=== PATIENT | female | born 1975 | race Caucasian/White ===

== ENCOUNTER 2021-10-09 08:08 | Emergency (ER) | payer OTHER, SELFPAY ==
[2021-10-09 08:12] VITALS: BP 210/123; PULSE 82; RESP 20; TEMP 36.6; O2SAT 98
--- NOTE | 2021-10-09 08:18 | ED.GENADULT ---
HPI - General Adult General Chief complaint: Upper Respiratory Infection Stated complaint: Congestion/Cough Time Seen by Provider: 10/09/21 08:18 Source: patient, RN notes reviewed and old records reviewed Mode of arrival: ambulatory Limitations: no limitations History of Present Illness HPI narrative: 46-year-old female who presents to [facility] with complaints of cough, congestion, ears popping, headache, some nausea and vomiting since [place] evening. Patient has not been COVID vaccinated or Flu vaccinated.She states that she has been taking NyQuil for her symptoms. Patient states that she threw up her blood pressure medication 3 days ago and has been nauseated so she has not taken her blood pressure medication for the past 2 days. Initial blood pressure 210/123 in triage, manual recheck done with 210/120. Patient given Clonidine 0.1mg and Zofran 4mg and blood pressure rechecked 180/104 with patient instructed to resume her blood pressure medication today. Onset (ago): day(s) (3) Related Data Home Medications Medication Instructions Recorded Confirmed amlodipine 10 mg PO DAILY 10/28/19 10/09/21 acetaminophen-codeine 1 tablet PO Q4-6H PRN 10/09/21 10/09/21 escitalopram oxalate 20 mg PO DAILY 10/09/21 10/09/21 losartan 100 mg PO DAILY 10/09/21 10/09/21 Allergies Allergy/AdvReac Type Severity Reaction Status Date / Time Penicillins Allergy Unknown rash Verified 10/09/21 08:29 Review of Systems Review of Systems: CONSTITUTIONAL: Denies fever, chills, or sweats. EYES: Denies visual changes, redness, or discharge. ENT: rhinorrhea, congestion, no sore throat, EARS POPPING CARDIOVASCULAR: Denies chest pain, palpitations, or edema. RESPIRATORY: POSITIVE cough no dyspnea. GASTROINTESTINAL: Denies abdominal pain, nausea, vomiting, or diarrhea. GENITOURINARY: Denies dysuria or hematuria. SKIN: Denies rash or itching. MUSCULOSKELETAL: Denies back pain, joint pain,feeling achy NEUROLOGIC: Positive for headache, no numbness, or weakness. PSYCHIATRIC: Positive for anxiety or depression. All systems reviewed & are unremarkable except as noted in HPI and below PMFSH Comments At time of signature, agree with nursing past medical, surgical, social and family history. There is no relevant family history pertinent to the presenting complaint Exam Narrative: GENERAL: Well-appearing, well-nourished, and in no acute distress. HEAD: Normocephalic, atraumatic. EYES: PERRLA and EOMI. ENT: Nares red with swollen turbinates, yellow- green discharge, frontal headache,no epistaxis. Mucous membranes moist.TM's normal with dull light reflex, throat red with no lesions or exudates, or tonsil enlargement. NECK: Supple.no lymphadenopathy CHEST: Clear to auscultation. No respiratory distress. cough which is dry denies any acute dyspnea SAO2 98% on room air HEART: Regular rate and rhythm. No murmur heard. Normal peripheral pulses. ABDOMEN: Soft, nontender, nondistended, normal active bowel sounds. EXTREMITIES: Normal range of motion. No edema. SKIN: Warm, dry, no rash. NEURO: No focal deficits. Alert and oriented x3. Course Vital Signs Vital signs: Vital Signs Temperature 36.6 C 10/09/21 08:12 Pulse Rate 82 10/09/21 08:12 Respiratory Rate 20 10/09/21 08:12 Blood Pressure 210/123 H 10/09/21 08:12 Pulse Oximetry 98 10/09/21 08:12 Temperature 36.6 C 10/09/21 08:29 Pulse Rate 82 10/09/21 08:29 Respiratory Rate 20 10/09/21 08:29 Blood Pressure 210/123 H 10/09/21 08:29 Pulse Oximetry 98 10/09/21 08:29 Medical Decision Making Differential Diagnosis Differential Diagnosis: Acute cough, URI,viral syndrome,nausea and vomiting,sinusitis Medical Records Medical records reviewed: Yes I reviewed the external patient's medical records. Vital Signs Vital Signs: Vital Signs Temperature 36.6 C 10/09/21 08:12 Pulse Rate 82 10/09/21 08:12 Respiratory Rate 20 10/09/21 08:12 Blood Pressure 210/123 H 10/09/21 0
[2021-10-09 08:29] VITALS: BP 210/123; PULSE 82; RESP 20; TEMP 36.6; O2SAT 98
[2021-10-09] MEDS: ONDANSETRON HCL ODT 4 MG TABLET SUBLINGUAL (08:42)
[2021-10-09] MEDS: cloNIDine HCL 0.1 MG TABLET PO (08:45)
== END 2021-10-09 09:22 | disposition home or self-care (01) ==
PROVIDERS: Emergency Provider Registered Nurse; PCP Family Medicine
DX: J32.9 Chronic sinusitis, unspecified (principal); I10 Essential (primary) hypertension; Z20.822 Contact with and (suspected) exposure to COVID-19; F41.9 Anxiety disorder, unspecified
CPT/HCPCS: 87426; 99213; A9270; C9803; G0463

== ENCOUNTER 2024-10-13 09:12 | Emergency (ER) | payer OTHER, SELFPAY ==
[2024-10-13 09:20] VITALS: BP 135/83; PULSE 56; RESP 16; TEMP 37.1; O2SAT 99
--- NOTE | 2024-10-13 09:33 | ED.GENADULT ---
HPI - General Adult General Chief complaint: Upper Respiratory Infection Stated complaint: Sore Throat/Congestion Source: patient Mode of arrival: ambulatory Limitations: no limitations History of Present Illness HPI narrative: Patient presents for evaluation of sick symptoms for last 3 days. Symptoms include sinus congestion mucopurulent discharge from the nares, sore throat occasional dry cough and some mild ear discomfort bilaterally. No fever, chills, nausea, vomiting, shortness of breath or diarrhea. She tried taking nyquil for her symptoms. She does not smoke. 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 She is concerned she has a sinus infection or strep throat. Related Data Home Medications ?Medication ?Instructions ?Recorded ?Confirmed ?Last Taken ?Type amlodipine 10 mg tablet 10 mg PO DAILY 10/28/19 10/13/24 Unknown History escitalopram oxalate 20 mg tablet 20 mg PO DAILY 10/09/21 10/13/24 Unknown History losartan 100 mg tablet 100 mg PO DAILY 10/09/21 10/13/24 Unknown History Allergies Allergy/AdvReac Type Severity Reaction Status Date / Time Penicillins Allergy Unknown rash Verified 10/09/21 08:29 Review of Systems Review of Systems: CONSTITUTIONAL: Denies fever, chills, or sweats. EYES: Denies visual changes, redness, or discharge. ENT:Reports sinus congestion, mucopurulent discharge from the nares, sore throat and bilateral ear discomfort CARDIOVASCULAR: Denies chest pain, palpitations, or edema. RESPIRATORY: Reports occasional cough. Denies SOB GASTROINTESTINAL: Denies abdominal pain, nausea, vomiting, or diarrhea. GENITOURINARY: Denies dysuria or hematuria. SKIN: Denies rash or itching. MUSCULOSKELETAL: Denies back pain, joint pain, or myalgia. NEUROLOGIC: Denies headache, numbness, dizziness, or weakness. PSYCHIATRIC: Denies anxiety or depression. [facility] Past Medical History Medical History Hyperlipidemia HTN (hypertension) Anxiety Depression Surgical History Surgical History History of hysterectomy Family History Family History Mother Family history non-contributory Social History Social History Substance use: never Gender identity (if verbalized by the patient): Female Spiritual care concerns: No Exam Narrative: GENERAL: Well-appearing, well-nourished, and in no acute distress. HEAD: Normocephalic, atraumatic. EYES: PERRLA and EOMI. ENT: Nares clear, no rhinorrhea or epistaxis. Mucous membranes moist. Oropharynx without tonsillar hypertrophy exudate or other lesions. There is posterior pharyngeal erythema. Uvula is midline. There is middle ear fluid bilaterally NECK: Supple. No adenopathy or masses. No carotid bruits or JVD CHEST: Clear to auscultation. No respiratory distress. No wheezes rales or rhonchi HEART: Regular rate and rhythm. No murmur heard. Normal peripheral pulses. ABDOMEN: Soft, nontender, nondistended, normal active bowel sounds. EXTREMITIES: Normal range of motion. No edema. SKIN: Warm, dry, no rash. NEURO: No focal deficits. Alert and oriented x3. PSYCH: Normal mood and affect. Course Course Emergency Course: This is a 49-year-old female who presented for evaluation of sinus symptoms and sore throat. Rapid strep negative. She meets criteria for ABRS based upon mucopurulent discharge. Will treat with doxycycline due to penicillin allergy. Will also dc with tessalon. Increase hydration. OTC agents for symptom management. Follow up with primary provider. Go to the ER for worsening symptoms. Pt in agreement with plan of care Level of Care: Express Care Visit Vital Signs Vital signs: Vital Signs Temperature 37.1 C 10/13/24 09:20 Pulse Rate 56 L 10/13/24 09:20 Respiratory Rate 16 10/13/24 09:20 Blood Pressure 135/83 10/13/24 09:20 Pulse Oximetry 99 10/13/24 09:20 Oxygen Delivery Room Air 10/13/24 09:20 Temperature 37.1 C 10/13/24 09:20 Pulse Rate 56 L 10/13/24 09:20 Respiratory Rate 16 10/13/24 09:20 Blood Pressure 135/83 10/13/24 09:20 Pulse Oximetry 99 10/13/24 09:20 Oxygen Delivery Room Air 10/13/24 09:20 Medical Decision Making Vital Signs Vital Signs: Vital Signs Temperature 37.1 C 10/13/24 09:20 Pulse Rate 56 L 10/13/24 09:20 Respiratory Rate 16 10/13/24 09:20 Blood Pressure 135/83 10/13/24 09:20 Pulse Oximetry 99 10/13/24 09:20 Oxygen Delivery Room Air 10/13/24 09:20 Temperature 37.1 C 10/13/24 09:20 Pulse Rate 56 L 10/13/24 09:20 Respiratory Rate 16 10/13/24 09:20 Blood Pressure 135/83 10/13/24 09:20 Pulse Oximetry 99 10/13/24 09:20 Oxygen Delivery Room Air 10/13/24 09:20 Lab Data Labs: Lab Results 10/13/24 Range/Units 09:38 POC Grp A Strep Screen Negative (Negative) Discharge Plan Discharge Clinical Impression: Sinusitis Patient Disposition: Home, Self-Care Condition: Stable Instructions: Antibiotic Form, Sinusitis (ED) Patient Language: Tajik Prescriptions: New doxycycline hyclate 100 mg tablet 100 mg PO BID Qty: 20 0RF benzonatate 200 mg capsule 200 mg PO TID PRN (Reason: cough) Qty: 30 0RF No Action amlodipine 10 mg tablet 10 mg PO DAILY escitalopram oxalate 20 mg tablet 20 mg PO DAILY losartan 100 mg Tablet 100 mg PO DAILY ondansetron 4 mg tablet,disintegrating 4 mg PO Q6H PRN (Reason: nausea and vomiting) Qty: 14 0RF Follow-up/Referrals: Dakota Fabian [Other] Time of Disposition: 09:40
[2024-10-13 09:40] LABS: EDSTREPNEGPOS1 Negative (Negative)
--- OUTSIDE RECORDS SUMMARY | 2024-10-20 03:44 | XMS_ITS | Encounter Summary ---
Author Organization [facility] Health Address [address] [facility] [place] [address] Care Team Providers Care Diet Tech Name Role Phone Niurka Olivarez THOM-CUTTER OPERATOR HELPER Primary Care Provider [phone] Encounter Details Date Type Department Care Team (Latest Contact Info) Description 06/07/2019 1:03 PM CDT - 06/07/2019 11:59 PM CDT Hospital Encounter [facility] [address] [place] [address] Rossy Emmanuel PA-C [address] [place] [id number] Discharge Disposition: Home or Self Care Social History Tobacco Use Types Packs/Day Years Used Date Smoking Tobacco: Never Smokeless Tobacco: Never Alcohol Use Standard Drinks/Week Comments Never 0 (1 standard drink = 0.6 oz pur e alcohol) AUDIT-C Answer Date Recorded Frequency of Alcohol Consumption Never 06/07/2019 Average Number of Drinks Not on file 019 Frequency of Binge Drinking Not on file 05/14 Sex and Gender Information Value Date Recorded Sex Assigned at Not on file Gender Identity Not on file Sexual Orientation Not on file documented as of this encounter Medications at Time of Discharge Medication Sig Dispensed Refills Start Date End Date amLODIPine (NORVASC) 10 MG tablet amlodipine 10 mg tablet 08/26/2018 cetirizine (ZYRTEC) 10 MG tablet TAKE 1 TABLET BY MOUTH EVERY DAY FOR COUGH/RUNNY NOSE 2 04/25/2019 famotidine (PEPCID) 20 MG tablet Take 20 mg by mouth 09/20/2018 losartan-hydroCHLOROthia zide (HYZAAR) 100-25 MG tablet Take 1 tablet by mouth once daily 2 05/16/2019 documented as of this encounter Plan of Treatment Not on file documented as of this encounter Procedures Procedure Name Priority Date/Time Associated Diagnosis Comments XR KNEE LEFT 4VW OR MORE Routine 06/07/2019 1:23 PM CDT Left knee pain, unspecified chronicity documented in this encounter Results * XR KNEE LEFT 4VW OR MORE (06/07/2019 1:23 PM CDT) Anatomical Region Laterality Modality Lower Extremity Radiographic Dagmar ging 06/07/2019 1:27 PM CDT Impressions 06/07/2019 1:46 PM CDT Unremarkable study. Edited by Daniella Chavarria on 06/07/2019 1:41 PM Reading Radiologist: Fredy Alcala MD on 06/07/2019 at 1:46 PM Narrative 06/07/2019 1:46 PM CDT LEFT KNEE MULTIPLE VIEWS. HISTORY: Knee pain. Views of the knee demonstrate well maintained joint space. There is no fracture, lytic or blastic lesion. Procedure Note Fredy Alcala MD - 06/07/2019 LEFT KNEE MULTIPLE VIEWS. HISTORY: Knee pain. Views of the knee demonstrate well maintained joint space. There is no fracture, lytic or blastic lesion. IMPRESSION Unremarkable study. Edited by Daniella Chavarria on 06/07/2019 1:41 PM Reading Radiologist: Fredy Alcala MD on 06/07/2019 at 1:46 PM Rossy Emmanuel PA-C DIAGNOSTIC IMAGING O RDERABLES documented in this encounter Visit Diagnoses Diagnosis Left knee pain, unspecified chronicity documented in this encounter Care Teams Diet Tech Relationship Specialty Start Date End Date Juanis, THOM Bah-MIGUEL ANGEL [address] [place] [address] PCP - General 06/07/19 documented as of this encounter
--- OUTSIDE RECORDS SUMMARY | 2024-10-20 03:44 | XMS_ITS | Encounter Summary ---
Author Organization [facility] Health Address [address] [place] [address] Care Team Providers Care First Mate Name Role Phone Niurka Olivarez THOM-GENERATION TECHNOLOGIST Primary Care Provider [phone]- [phone] Reason for Visit * Reason Onset Date Comments Imaging 07/01/2019 Encounter Details Date Type Department Care Team (Late st Contact Info) Description 07/01/2019 Telephone [facility] [address] [facility] [place] [id number] Rossy Emmanuel PA-C [address] [facility] [address] [place] [address] Imaging Social History Tobacco Use Types Packs/Day Years [...] on file documented as of this encounter Miscellaneous Notes * Telephone Encounter - Rossy Emmanuel PA-C - 07/01/2019 12:40 PM CDT I reviewed MRI L knee: Grade 4 chondromalacia, medial patellar facet and median patellar ridge. Small Santos's cyst. I called patient with results. She would like an injection to left knee. I offered her to see me for 9/20 at 12pm for L knee injection, she accepted. Plan: non surgical treatment. Recommend PT, ice, NSAIDs and cortisone injections for relief. documented in this encounter Plan of Treatment Not on file documented as of this encounter Visit Diagnoses Not on filedocumented in this encounter Care Teams First Mate Relationship Specialty Start Date End Date Olivarez, THOM Bah-MIGUEL ANGEL [address] [place] [address] PCP - General 06/07/19 documented as of this encounter
--- OUTSIDE RECORDS SUMMARY | 2024-10-20 03:44 | XMS_ITS | Encounter Summary ---
Author Organization [facility] Address [address] [place] [address]. [place] [address] [place] [address] Care Team Providers Care Money Order Clerk Name Role Phone Md Generic Conversion Primary Care Provider Unavailable Kristi Wilson MD Primary Care Provider Unavailable Md Generic Elvis WILSON Primary Care Provider Unavailable Encounter Details Date Type Department Care Team (Late st Contact Info) Description 08/12/2013 Abstract [facility] [place] [address] [id number] Elis Hood MD [address] [facility] [address] [place], [place] [id number] Social History Tobacco Use Types Packs/Day Years Used Date Smoking Tobacco: Never Assessed Comments Unknown Sex and Gender Information Value Date Recorded Sex Assigned at Not on file Legal Sex Female 8:27 PM CDT Gender Identity Not on file Sexual Orientation Not on file documented as of this encounter Plan of Treatment Not on file documented as of this encounter Visit Diagnoses Diagnosis Degeneration of lumbar or lumbosacral intervertebral disc documented in this encounter Care Teams Money Order Clerk Relationship Specialty Start Date End Date Kristi Wilson MD PCP - General 04/20/14 Kristi Wilson MD PCP - General 03/30/14 4 Kristi Wilson MD PCP - General 07/28/13 documented as of this encounter
--- OUTSIDE RECORDS SUMMARY | 2024-10-20 03:44 | XMS_ITS | Clinical Summary ---
Author Organization [facility] Address [address] [facility] [place] [address] Care Team Providers Care Editor Farm Journal Name Role Phone Niurka Olivarez THOM-WHOLESALE REPRESENTATIVE Primary Care Provider [phone]- [phone] Source Comments [facility],non-owned Affiliates and Associated Physician Practices is amultiple site organization consisting of ambulatory clinics and hospital sitesin [place] and [place]. This disclosure is being madepursuant to the Care Everywhere program and may not contain all information available regarding this patient. Last updated 18.[facility] Allergies Active Allergy Reactions Criticality Noted Date Comments Penicillins Rash Medium 07/09/2017 Reaction: Rash, , Medications * Be aware that medications may not be up to date on this document. Alwaysverify current medications with the patient. Medication Sig Dispensed Refills Start Date End Date Status amLODIPine (NORVASC) 10 MG tablet amlodipine 10 mg tablet 08/26/2018 Active atorvastatin (LIPITOR) 20 MG tablet atorvastatin 20 mg tablet TAKE 1 TABLET(S) EVERY DAY BY ORAL ROUTE IN THE EVENING. Active buPROPion XL 24hr (WELLBUTRIN-XL) 150 MG tablet Take 150 mg by mouth once daily Active busPIRone (BUSPAR) 15 MG tablet buspirone 15 mg tablet Active carvedilol (COREG) 6.25 MG tablet carvedilol 6.25 mg tablet Active cetirizine (ZYRTEC) 10 MG tablet TAKE 1 TABLET BY MOUTH EVERY DAY FOR COUGH/RUNNY NOSE 2 04/25/2019 Active escitalopram (LEXAPRO) 10 MG tablet every 24 hours Active famotidine (PEPCID) 20 MG tablet Take 20 mg by mouth 09/20/2018 Act mary losartan-hydroCHLOR Othiazide (HYZAAR) 100-25 MG tablet Take 1 tablet by mouth once daily 2 05/16/2019 Active methylPREDNISolone (Medrol Dosepak) 4 MG tabletIndications:R ight elbow pain,Acute pain of right shoulder,Subacromia l bursitis of right shoulder joint Take by mouth as directed 1 Each 05/21/2024 Active Active Problems Problem Noted Date Diagnosed Date Acute internal derangement of left knee 06/07/20 19 Social History Tobacco Use Types Packs/Day Years Used Date Smoking Tobacco: Never Smokeless Tobacco: Never Tobacco Cessation:Counseling Given: Not Answered Alcohol Use Standard Drinks/Week Comments Never 0 (1 standard drink = 0.6 oz pur e alcohol) AUDIT-C Answer Date Recorded Frequency of Alcohol Consumption Never 06/07/2019 Average Number of Drinks Not on file 019 Frequency of Binge Drinking Not on file 05/14 PHQ-2 Answer Date Recorded Patient Health Questionnaire-2 Score 0 05/21/2024 Sex and Gender Information Value Date Recorded Sex Assigned at Not on file Gender Identity Not on file Sexual Orientation Not on file Last Filed Vital Signs Vital Sign Reading Time Taken Comments Blood Pressure - - Pulse - - Temperature - - Respiratory Rate - - Oxygen Saturation - - Inhaled Oxygen Concentration - - Weight 109.8 kg (242 lb) 06/21/2019 8:58 AM CDT Height 158.8 cm (5' 2.5 ) 06/21/2019 8:58 AM CDT Body Mass Index 43.56 06/21/2019 8:58 AM CDT Plan of Treatment Health Maintenance Due Date Last Done Comments COLOGUARD (AGES 45-75) - COLON CA SCREENING 1975 COLON MONITORING 1975 COLONOSCOPY - COLON CA SCREENING 1975 CT COLONOGRAPHY - COLON CA SCREENING 1975 Colorectal Cancer Screening 1975 FIT - COLON CA SCREENING 1975 FLEX SIG - COLON CA SCREENING 1975 PAP SMEAR 1975 HIV SCREENING 1990 HEPATITIS C SCREENING 04/04/1993 DTAP/TDAP/TD VACCINES (1 - Tdap) 1994 HEPATITIS B VACCINE (1 of 3 - 19+ 3-dose series) 1994 MAMMOGRAM 08/02/2023 08/02/2021, 07/13, 09/05/2018, Additional history exists COVID-19 VACCINE (2023- season) 2024 INFLUENZA VACCINE (#1) 2024 8, 08/04/2017, 07/05/2016, Additional history exists ZOSTER VACCINE (1 of 2) 2025 DEPRESSION SCREENING Completed 05/21/2024 HIB VACCINE Aged Out No longer eligi ble based on patient's age to complete this topic HPV VACCINE Aged Out No longer eligi ble based on patient's age to complete this topic MENINGOCOCCAL VACCINE Aged Out No wallace rob eligible based on patient's age to complete this topic PNEUMOCOCCAL VACCINE Aged Out No long er eligible based on patient's age to complete this topic Care Teams Editor Farm Journal Relationship Specialty Start Date End Date Niurka Olivarez APRN-MIGUEL ANGEL [address] [place] [address] PCP - General 06/07/19
--- OUTSIDE RECORDS SUMMARY | 2024-10-20 03:44 | XMS_ITS | Encounter Summary ---
Author Organization [facility] Address [address] [place] [address]. [place] [address] [place] [address] Care Team Providers Care Radio Station Audio Engineer Name Role Phone Kristi Cazares MD Primary Care Provider Unavailable Encounter Details Date Type Department Care Team (Late st Contact Info) Description 04/27/2014 Abstract [facility] [place] [address] [id number] Elis Hood MD [address] [facility] [address] [place], [place] [id number] Social History Tobacco Use Types Packs/Day Years [...] on filedocumented in this encounter Care Teams Radio Station Audio Engineer Relationship Specialty Start Date End Date Kristi Cazares MD PCP - General 04/20/14 documented as of this encounter
--- OUTSIDE RECORDS SUMMARY | 2024-10-20 03:44 | XMS_ITS | Encounter Summary ---
Author Organization [facility] Health Address [address] [place] [address] Care Team Providers Care Stationary Engineer Apprentice Name Role Phone Jyoti Perales MD Primary Care Provider [phone] Encounter Details Date Type Department Care Team (Late st Contact Info) Description 11/09/2018 Orders Only [facility] [address] [facility] [place] [address] Niurka Armendariz PA-C [address] [place] [address] Left knee pain, unspecified chronicity Social History Tobacco Use Types Packs/Day Years Used Date Smoking Tobacco: Never Assessed Sex and Gender Information Value Date Recorded Sex Assigned at Not on file Gender Identity Not on file Sexual Orientation Not on file documented as of this encounter Plan of Treatment Not on file documented as of this encounter Visit Diagnoses Diagnosis Left knee pain, unspecified chronicity- Primary documented in this encounter Care Teams Stationary Engineer Apprentice Relationship Specialty Start Date End Date Jyoti Perales MD PCP - General 10/09/18 06/06/19 documented as of this encounter
--- OUTSIDE RECORDS SUMMARY | 2024-10-20 03:44 | XMS_ITS | Encounter Summary ---
Author Organization [facility] Health Address [address] [place] [address] Care Team Providers Care Manager Monitoring Name Role Phone Niurka Olivarez THOM-COMPLETIONS MANAGER Primary Care Provider [phone]- [phone] Encounter Details Date Type Department Care Team (Latest Contact Info) Description 05/21/2024 12:48 PM CDT - 05/21/2024 1:10 PM CDT Hospital Encounter [facility] [address] [place] [address] Rossy Emmanuel PA-C [address] [facility] [address] [place] [address] Discharge Disposition: Home or Self Care Social [...] MG tablet amlodipine 10 mg tablet 08/26/2018 atorvastatin (LIPITOR) 20 MG tablet atorvastatin 20 mg tablet TAKE 1 TABLET(S) EVERY DAY BY ORAL ROUTE IN THE EVENING. buPROPion XL 24hr (WELLBUTRIN-XL) 150 MG tablet Take 150 mg by mouth once daily busPIRone (BUSPAR) 15 MG tablet buspirone 15 mg tablet carvedilol (COREG) 6.25 MG tablet carvedilol 6.25 mg tablet cetirizine (ZYRTEC) 10 MG tablet TAKE 1 TABLET BY MOUTH EVERY DAY FOR COUGH/RUNNY NOSE 2 04/25/2019 escitalopram (LEXAPRO) 10 MG tablet every 24 hours famotidine (PEPCID) 20 MG tablet Take 20 mg by mouth 09/20/2018 losartan-hydroCHLOROthi azide (HYZAAR) 100-25 MG tablet Take 1 tablet by mouth once daily 2 05/16/2019 documented as of this encounter Plan of Treatment Not on file documented as of this encounter Procedures Procedure Name Priority Date/Time Associated Diagnosis Comments XR ELBOW RIGHT 3VW OR MORE Routine 05/21/2024 12:54 PM CDT Right elbow pain documented in this encounter Results * XR Elbow Right 3Vw or More (05/21/2024 12:54 PM CDT) Anatomical Region Laterality Modality Upper Extremity Radiographic Dagmar ging 05/21/2024 2:10 PM CDT Impressions 05/21/2024 2:11 PM CDT IMPRESSION: Normal. ?? > Interpreting Provider: Hans Sosa MD on 05/21/2024 2:11 PM Narrative 05/21/2024 2:11 PM CDT PROCEDURE: ??XR ELBOW RIGHT 3VW OR MORE DATE/TIME OF EXAM: ??05/21/2024 12:54 PM CLINICAL INFORMATION: None relevant/not provided if blank. Indication: M25.521: Right elbow pain Additional History: COMPARISON: None. FINDINGS: No acute fracture or dislocation is present. The joint spaces are normal. No erosions are seen. There is no effusion. Procedure Note Hans Sosa MD - 05/21/2024 PROCEDURE: XR ELBOW RIGHT 3VW OR MORE DATE/TIME OF EXAM: 05/21/2024 12:54 PM CLINICAL INFORMATION: None relevant/not provided if blank. Indication: M25.521: Right elbow pain Additional History: COMPARISON: None. FINDINGS: No acute fracture or dislocation is present. The joint spaces arenormal. No erosions are seen. There is no effusion. IMPRESSION: Normal. > Interpreting Provider: Hans Sosa MD on 05/21/2024 2:11 PM Rossy Emmanuel PA-C DIAGNOSTIC IMAGING O RDERABLES documented in this encounter Visit Diagnoses Diagnosis Right elbow pain Pain in joint, upper arm documented in this encounter Care Teams Manager Monitoring Relationship Specialty Start Date End Date Niurka Olivarez APRN-MIGUEL ANGEL [address] [place] [address] PCP - General 06/07/19 documented as of this encounter
--- OUTSIDE RECORDS SUMMARY | 2024-10-20 03:44 | XMS_ITS | Encounter Summary ---
Author Organization [facility] Health Address [address] [place] [address] Care Team Providers Care Graphite Disk Assembler Name Role Phone Niurka Olivarez SECURITY ASSOCIATE-GUNNER'S MATE G Primary Care Provider [phone]- [phone] Reason for Visit * Reason Comments Pain Knee Left Encounter Details Date Type Department Care Team (Late st Contact Info) Description 06/07/2019 1:45 PM CDT Office Visit [facility] [address] [place] [address] Rossy Emmanuel PADaveC [address] [place] [id number] Acute internal derangement of left knee (Primary Dx) Social History Tobacco Use Types Packs/Day Years [...] on file documented as of this encounter Last Filed Vital Signs Vital Sign Reading Time Taken Comments Blood Pressure - - Pulse - - Temperature - - Respiratory Rate - - Oxygen Saturation - - Inhaled Oxygen Concentration - - Weight 109.8 kg (242 lb) 06/07/2019 1:40 PM CDT Height 158.8 cm (5' 2.5 ) 06/07/2019 1:40 PM CDT Body Mass Index 43.56 06/07/2019 1:40 PM CDT documented in this encounter Patient Instructions * Patient Instructions* Rossy Emmanuel PA-C - 06/07/2019 2:19 PM CDT Images from the original note were not included. [email or web address] Adult [facility] Pediatric Orthopaedic Surgery Sports Medicine Melinda Olmedo 06/07/2019 Thank you for coming in to see us today. Work/School Excuse: Excused from Work/School on 06/07/19 DIAGNOSIS: Acute internal derangement of left knee Plan: We recommend that you try the following for your injury: icing 20 minutes at a time, 3 to 5 times daily, physical therapy exercises and anti-inflammatory medications Hinge knee brace applied today at patient request Follow up: 2 weeks after PT Call or return to clinic prn if these symptoms worsen or fail to improve as anticipated. NSAIDs (non-steroidal anti-inflammatory drugs) such as Aleve/naproxen and Motrin/ibuprofen are suggested to relieve inflammation and pain for a short course of therapy for 3 weeks, advised to take with food. Cryotherapy is commonly used to reduce temperature, inflammation, pain, muscle spasm and symptoms of delayed onset muscle soreness. There are various methods of ice application such as ice pack, coldpack, cold water immersion, ice massage. To Find out more info about your diagnosis, visit: [email or web address] Patient was educated and given information regarding their diagnosis today. [facility] office contact information: Please contact our , option #1 to make an appointment if your symptoms are not improving, or if something about your condition significantly changes. Our Locations: [facility] [address] [place] [address], [address] [address] Please contact the MA at , if you have any further questions or concerns. [facility] [address] [place] [address] Please contact Adarsh Benson RN at , if you have any further questions or concerns. [facility] , option [address] [place] location: [address], [place] [address] [facility] location: [address], [place] [address] [facility] location: [address] [place] [address] Sincerely, Rossy Emmanuel MPA, PA-C [email or web address] documented in this encounter Progress Notes * Rossy Emmanuel PA-C - 06/07/2019 3:[address] Niurka Olivarez, THOM-GUNNER'S MATE G ; Today, 06/07/19, we had the pleasure of seeing Melinda Olmedo at [facility] for evaluation of her left knee chief complaint. Melinda Olmedo is a 44 year old female who c/o left medial knee pain with loss of motion since her fall on the stairs at home 1 week ago. She is limping. Seen at ED. Swelling in knee with increasedactivity. She reports Taking motrin 800mg and left over vicodin Previous treatment tried includes icing, anti-inflammatory medications, tylenol and bracing for their symptoms. Occupation: none Sports/Activities: none Smoking/tobacco use: negative Single Assessment Numeric Evaluation (SANE Score 0-100): SANE Score 06/07/2019 Left Knee Score 25 Medications: motrin 800 mg and vicodin and T4 No current outpatient medications on file prior to visit. No current facility-administered medications on file prior to visit. Allergies: Allergies as of 06/07/2019 - Reviewed 06/07/2019 Allergen Reaction Noted ??? Penicillins Rash 07/09/2017 PMH: none No past medical history on file. No past surgical history on file. Social History: Social History Occupational History ??? Not on file Tobacco Use ??? Smoking status: Never Smoker ??? Smokeless tobacco: Never Used Substance and Sexual Activity ??? Alcohol use: Never Frequency: Never ??? Drug use: Never ??? Sexual activity: Not on file Family History: none No family history on file. REVIEW OF SYSTEMS: also refer to HPI General/Constitutional: No fever, chills, night sweats, insomnia, appetite changes, or weight changes Endocrine: no thyroid problems, no diabetes Cardiovascular: No exertional chest pain, or palpitations Respiratory/Pulmonary: No cough, dyspnea, wheezing or SOB. Genitourinary: No frequency, incontinence, burning with urination Gynecological: No pelvic pain or discharge Psychiatric: No depression, anxiety, mood changes HEENT: No difficulty with hearing, eye sight, sore throats, vertigo, or tinnitus Gastrointestinal: no GI upset, No nausea, vomiting or diarrhea Skin: No skin rashes, skin lesions Neurologic: no numbness and tingling, No dizziness or visual disturbances Musculoskeletal: + joint pain or stiffness, no muscle aches, no leg cramping Physical Exam: Body mass index is 43.56 kg/m??. Vitals: 06/07/19 1340 Weight: 242 lb (109.8 kg) Height: 5' 2.5 (1.588 m) The patient is awake, alert, oriented and they are pleasant to speak with. There is no pain with rotation of the right or left hip. There is a negative straight leg raise bilaterally. Gait is antalgic. Evaluation of the uninjured right knee noted no skin lesions, neurovascularly intact. There is no tenderness/swelling/deformity. Ligamentously stable. Full range of motion. Quadriceps strength is 5/5. The left knee is neurovascularly intact with no active skin lesions. There is a trace effusion. There is tenderness of the medial joint line. Range of motion is 5 degrees of extension and 90 degrees of flexion. Mylene is negative. Quad strength is 4/5. There is not a palpable gap in the patellar and quadriceps tendons. They are able to do an active straight leg raise. There is no varus laxity. There is no valgus laxity. There is no posterior sag. McMurrays test is positive. Dial test is na. The extensor mechanism is intact. The patellar tracks well. Patellar apprehension test is negative. Testing for generalized ligamentous laxity is negative. Imaging: L knee X-rays images demonstrate unremarkable knee. Images were personally interpreted and reviewed by me today in clinic. Impression: internal derangement of left knee Plan: We recommend that you try the following for your injury: icing 20 minutes at a time, 3 to 5 times daily, physical therapy exercises and anti-inflammatory medications Hinge knee brace applied today at patient request Follow up: 2 weeks after PT Patient was educated and given information regarding their diagnosis today. Please do not hesitate to contact me with questions regarding her or any other patient in the future. Sincerely, Rossy Emmanuel MPA, PA-C documented in this encounter Plan of Treatment Not on file documented as of this encounter Visit Diagnoses Diagnosis Acute internal derangement of left knee- Primary documented in this encounter Care Teams Graphite Disk Assembler Relationship Specialty Start Date End Date Niurka Olivarez APRN-MIGUEL ANGEL [address] [place] [address] PCP - General 06/07/19 documented as of this encounter
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
--- OUTSIDE RECORDS SUMMARY | 2024-10-20 03:44 | XMS_ITS | Encounter Summary ---
Author Organization [facility] Health Address [address] [facility] [place] [address] Care Team Providers Care Sheet Metal Journeyman Name Role Phone Niurka Olivarez Primary Care Provider [phone]- [phone] Encounter Details Date Type Department Care Team (Latest Contact Info) Description 05/21/2024 Travel Social History Tobacco Use Types Packs/Day Years [...] on filedocumented in this encounter Care Teams Sheet Metal Journeyman Relationship Specialty Start Date End Date Niurka Olivarez APRN-CNP [address] [place] [address] PCP - General 06/07/19 documented as of this encounter
--- OUTSIDE RECORDS SUMMARY | 2024-10-20 03:44 | XMS_ITS | Encounter Summary ---
Author Organization [facility] Address [address] [facility] [place] [address] Care Team Providers Care Printed Circuit Board Drafter Name Role Phone Jyoti Perales MD Primary Care Provider [phone] Encounter Details Date Type Department Care Team (Late st Contact Info) Description 06/03/2019 Orders Only [facility] [address] [place] [address] Rossy Emmanuel PA-C [address] [place] [id number] Left knee pain, unspecified chronicity Social History Tobacco Use Types Packs/Day Years Used Date Smoking Tobacco: Never Assessed Sex and Gender Information Value Date Recorded Sex Assigned at Not on file Gender Identity Not on file Sexual Orientation Not on file documented as of this encounter Plan of Treatment Not on file documented as of this encounter Results * XR KNEE LEFT [...] Diagnosis Left knee pain, unspecified chronicity- Primary Left knee pain, unspecified chronicity documented in this encounter Care Teams Printed Circuit Board Drafter Relationship Specialty Start Date End Date Jyoti Perales MD PCP - General 10/09/18 06/06/19 documented as of this encounter
--- OUTSIDE RECORDS SUMMARY | 2024-10-20 03:44 | XMS_ITS | Encounter Summary ---
Author Organization [facility] Health Address [address] [facility] [place] [address] Care Team Providers Care Insights Manager Name Role Phone Niurka Olivarez APRN-PROCESS CONTROL MANAGER Primary Care Provider [phone]- [phone] Reason for Referral * Radiology Services (Routine) - Closed Specialty Diagnoses / Procedures Referred By Magui t Referred To Contact MRI Diagnoses Acute internal derangement of left knee Procedures MRI KNEE LEFT WO CONTRAST Rossy Emmanuel PA-C [address] [facility] [address] [place] [address] Referral ID Status Reason Start Date Expiration Date Visits Re quested Visits Authorized [id number] Closed 06/21/2019 12/18/2019 1 1 Reason for Visit * Reason Comments Pain Knee LEFT Encounter Details Date Type Department Care Team (Late st Contact Info) Description 06/21/2019 9:00 AM CDT Office Visit [facility] [address] [place] [address] Rossy Emmanuel PA-C [address] [place] [id number] Acute internal derangement of left knee (Primary [...] Mass Index 43.56 06/21/2019 8:58 AM CDT documented in this encounter Patient Instructions * Patient Instructions* Rossy Emmanuel PA-C - 06/21/2019 9:14 AM CDT [email or web address] Adult and Pediatric Orthopaedic Surgery Sports Medicine Melinda Olmedo 06/21/2019 Thank you for coming in to see us today. Work/School Excuse: Excused from Work/School on 06/21/19 DIAGNOSIS: Acute internal derangement of left knee Plan: We recommend that you try the following for your injury: MRI L knee Ice and NSAIDs Follow up: We will make a final treatment determination after the MRI is complete. Call or return to clinic prn if [...] and given information regarding their diagnosis today. [facility] Orthopaedic office contact information: Please contact our , option #1 to make an appointment if your symptoms are not improving, or if something about your condition significantly changes. Our Locations: [facility] [address] [facility], [address], [place] [address] Please contact the [place] at , if you have any further questions or concerns. [facility] [address] [place] [address] Please contact Adarsh Benson RN at , if you have any further questions or concerns. [facility] , option 2 [place] location: [address] [facility] [place] [address] [facility] location: [address] Clinic location: [address] [place] [address] Sincerely, Rossy Emmanuel MPA, PA-C [email or web address] documented in this encounter Progress Notes * Rossy Emmanuel PA-C - 06/21/2019 9:[address] Niurka Olivarez, SEBD TEACHER-PROCESS CONTROL MANAGER ; Today, 06/21/19, we had the pleasure of seeing Melinda Olmedo at [facility] Orthopaedic Sports Medicine and Shoulder Surgery Clinic for evaluation of her left knee chief complaint. Melinda Olmedo is a 44 year old female who returns with no relief of left left medial knee pain since her fall on the stairs at home in May. She is wearing hinge knee brace intermittently. She is taking motrin 800mg. She did 1 sessions of PT for evaluation and reports they told her she is not a candidate for PT. She c/o giving out of knee intermittent. Previous treatment tried includes icing, anti-inflammatory medications, tylenol and bracing for their symptoms. Occupation: none Sports/Activities: none Smoking/tobacco use: negative Single Assessment Numeric Evaluation (SANE Score 0-100): SANE Score 06/07/2019 06/21/2019 Left Knee Score 25 20 Medications: motrin 800 mg and vicodin and T4 Current Outpatient Medications on File Prior to Visit Medication Sig Dispense Refill ??? amLODIPine (NORVASC) 10 MG tablet amlodipine 10 mg tablet ??? atorvastatin (LIPITOR) 20 MG tablet atorvastatin 20 mg tablet TAKE 1 TABLET(S) EVERY DAY BY ORAL ROUTE IN THE EVENING. ??? buPROPion XL 24hr (WELLBUTRIN-XL) 150 MG tablet Take 150 mg by mouth once daily ??? busPIRone (BUSPAR) 15 MG tablet buspirone 15 mg tablet ??? carvedilol (COREG) 6.25 MG tablet carvedilol 6.25 mg tablet ??? cetirizine (ZYRTEC) 10 MG tablet TAKE 1 TABLET BY MOUTH EVERY DAY FOR COUGH/RUNNY NOSE 2 ??? escitalopram (LEXAPRO) 10 MG tablet every 24 hours ??? famotidine (PEPCID) 20 MG tablet Take 20 mg by mouth ??? losartan-hydroCHLOROthiazide (HYZAAR) 100-25 MG tablet Take 1 tablet by mouth once daily 2 No current facility-administered medications on file prior to visit. Allergies: Allergies as of 06/21/2019 - Reviewed 06/21/2019 Allergen Reaction Noted ??? Penicillins Rash 07/09/2017 [...] Body mass index is 43.56 kg/m??. Vitals: 06/21/19 0858 Weight: 242 lb (109.8 kg) Height: 5' [...] medial joint line. Range of motion is 0 degrees of extension and 130 degreesof flexion. Mylene is negative. Quad strength is [...] exercises and anti-inflammatory medications Hinge knee brace Ordered MRI L knee Follow up: We will make a final treatment determination after the MRI is complete. Patient was educated and given information regarding their diagnosis today. Please do not hesitate to contact me with questions regarding her or any other patient in the future. Sincerely, Rossy Emmanuel MPA, PA-C documented in this encounter Plan of Treatment Not on file documented as of this encounter Results * MRI KNEE LEFT WO CONTRAST (07/01/2019 7:49 AM CDT) Anatomical Region Laterality Modality Lower Extremity Magnetic Resonan ce 07/01/2019 10:2 3 AM CDT Narrative 07/01/2019 11:10 AM CDT MRI LEFT KNEE HISTORY: Medial sided pain and recent injury. TECHNIQUE: Routine MR knee was obtained on a high-field strength magnet. There is an area of grade 4 chondromalacia involving the medial patellar facet and median patellar ridge, and grade 2 chondromalacia within the lateral patellar facet. The trochlear cartilage and cartilage of the medial and lateral compartments are normal. No fracture or dislocation is seen. There is no significant joint effusion or evidence of intra-articular loose body. A Santos's cyst is present. There is no evidence of meniscal tear. Minimal signal within the posterior horn of the medial meniscus does not extend to an articular surface. The anterior and posterior cruciate ligaments, extensor mechanism, medial and lateral collateral ligaments and medial and lateral patellar retinacula are normal. 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 Small Santos's cyst. Edited by Magali Ledesma on 07/01/2019 10:30 AM Reading Radiologist: Christian Feldman MD on 07/01/2019 at 11:10 AM Procedure Note Christian Feldman MD - 07/01/2019 MRI LEFT KNEE HISTORY: Medial sided pain and recent injury. TECHNIQUE: Routine MR knee was obtained on a high-field strength magnet. There is an area of grade 4 chondromalacia involving the medial patellar facet and median patellar ridge, and grade 2 chondromalacia within the lateral patellar facet. The trochlear cartilage and cartilage of the medial and lateral compartments are normal. No fracture or dislocation is seen. There is no significant joint effusion or evidence of intra-articular loose body. A Santos's cyst is present. There is no evidence of meniscal tear. Minimal signal within the posterior horn of the medial meniscus does not extend to an articular surface. The anterior and posterior cruciate ligaments, extensor mechanism, medial and lateral collateral ligaments and medial and lateral patellar retinacula are normal. 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 Small Santos's cyst. Edited by Magali Ledesma on 07/01/2019 10:30 AM Reading Radiologist: Christian Feldman MD on 07/01/2019 at 11:10 AM Rossy Emmanuel PA-C MR ORDERABLES documented in this encounter Visit Diagnoses Diagnosis Acute internal derangement of left knee- Primary Acute internal derangement of left knee documented in this encounter Care Teams Insights Manager Relationship Specialty Start Date End Date Niurka Olivarez APRN-MIGUEL ANGEL [address] [place] [address] PCP - General 06/07/19 documented as of this encounter
--- OUTSIDE RECORDS SUMMARY | 2024-10-20 03:44 | XMS_ITS | Encounter Summary ---
Author Organization [facility] Address [address] [place] [address]. [place] [address] [place] [address] Care Team Providers Care Propagation Worker Name Role Phone Kristi Cazares MD Primary Care Provider Unavailable Encounter Details Date Type Department Care Team (Late st Contact Info) Description 04/20/2014 [facility] [place] [address] [id number] Elis Hood MD Three [facility] [address] [place], [place] [id number] Social History Tobacco Use Types Packs/Day Years Used Date Smoking Tobacco: Never Assessed Comments Unknown Sex and Gender Information Value Date Recorded Sex Assigned at Not on file Legal Sex Female 8:27 PM CDT Gender Identity Not on file Sexual Orientation Not on file documented as of this encounter Plan of Treatment Not on file documented as of this encounter Visit Diagnoses Diagnosis Lumbosacral spondylosis without myelopathy documented in this encounter Care Teams Propagation Worker Relationship Specialty Start Date End Date Kristi Cazares MD PCP - General 04/20/14 documented as of this encounter
--- OUTSIDE RECORDS SUMMARY | 2024-10-20 03:44 | XMS_ITS | Patient Health Summary ---
Author Organization [facility] Address [address] [facility] [place] [address] Care Team Providers Care Mechanical Repair Worker Name Role Phone Niurka Olivarez THOM-ARCHITECTURAL REPRESENTATIVE Primary Care Provider [phone]- [phone] [facility],non-owned Affiliates and Associated Physician Practices is amultiple site organization consisting of ambulatory clinics and hospital sitesin [place], [place], [place] and [place]. This disclosure is being madepursuant to the Care Everywhere program and may not contain all information available regarding this patient. Last updated 18.[facility] [employer] Allergies * Penicillins(Rash) -Medium Criticality Medications * Be aware that medications may not be up to date on this document. Alwaysverify current medications with the patient. * amLODIPine (NORVASC) 10 MG tablet(Started 08/26/2018) amlodipine 10 mg tablet * atorvastatin (LIPITOR) 20 MG tablet atorvastatin 20 mg tablet TAKE 1 TABLET(S) EVERY DAY BY ORAL ROUTE IN THE EVENING. * buPROPion XL 24hr (WELLBUTRIN-XL) 150 MG tablet Take 150 mg by mouth once daily * busPIRone (BUSPAR) 15 MG tablet buspirone 15 mg tablet * carvedilol (COREG) 6.25 MG tablet carvedilol 6.25 mg tablet * cetirizine (ZYRTEC) 10 MG tablet(Started 04/25/2019) TAKE 1 TABLET BY MOUTH EVERY DAY FOR COUGH/RUNNY NOSE 2 refills left * escitalopram (LEXAPRO) 10 MG tablet every 24 hours * famotidine (PEPCID) 20 MG tablet(Started 09/20/2018) Take 20 mg by mouth * losartan-hydroCHLOROthiazide (HYZAAR) 100-25 MG tablet(Started 05/16/2019) Take 1 tablet by mouth once daily 2 refills left * methylPREDNISolone (Medrol Dosepak) 4 MG tablet(Started 05/21/2024) Take by mouth as directed Active Problems Problem Noted Date Diagnosed Date Acute internal derangement of left knee 06/07/20 Social History Tobacco Use Types Packs/Day Years [...] Mass Index 43.56 06/21/2019 8:58 AM CDT Procedures * XR SHOULDER RIGHT 2VW OR MORE(Performed 05/21/2024) Performed for Acute pain of right shoulder * XR ELBOW RIGHT 3VW OR MORE(Performed 05/21/2024) Performed for Right elbow pain * PROCDOC MULTI JOINT ARTHROCENTESIS(Performed 07/02/2019) Performed for Osteoarthritis of left patellofemoral joint, Santos's cyst of knee, left * MRI KNEE LEFT WO CONTRAST(Performed 07/01/2019) Performed for Acute internal derangement of left knee * XR KNEE LEFT 4VW OR MORE(Performed 06/07/2019) Performed for Left knee pain, unspecified chronicity Results * XR Shoulder Right 2Vw or [...] Emmanuel PA-C DIAGNOSTIC IMAGING O RDERABLES * JOINT INJ (07/02/2019 12:16 PM CDT) Narrative Rossy Emmanuel PA-C - 07/02/2019 12:16 PM CDT Rossy Emmanuel PA-C ? 07/02/2019 12:20 PM Prep: patient was prepped and draped in usual sterile fashion ?? Medications ordered and administration documented through clinic-administered medications activity. Patient tolerance: ??Patient tolerated the procedure well with no immediate complications Rossy Emmanuel PA-C PROCEDURE/MINOR SURG ICAL ORDERABLES * MRI KNEE LEFT WO CONTRAST (07/01/2019 [...] 11:10 AM Rossy Emmanuel PA-C MR ORDERABLES * XR KNEE LEFT 4VW OR MORE [...] on 06/07/2019 at 1:46 PM Rossy Emmanuel PAIris [facility] Care Teams Mechanical Repair Worker Relationship Specialty Start Date End Date Niurka Olivarez APRN-MIGUEL ANGEL [address] [place] [address] PCP - General 06/07/19
--- OUTSIDE RECORDS SUMMARY | 2024-10-20 03:44 | XMS_ITS | Clinical Summary ---
Author Organization [facility] Address [address] [place] [address]. [place], [place] [address] [place] [address] Care Team Providers Care Extension Clerk Name Role Phone Unavailable Primary Care Provider Unavailabl e Social History Tobacco Use Types Packs/Day Years Used Date Smoking Tobacco: Never Assessed Comments Unknown Sex and Gender Information Value Date Recorded Sex Assigned at Not on file Legal Sex Female 8:27 PM CDT Gender Identity Not on file Sexual Orientation Not on file Plan of Treatment Health Maintenance Due Date Last Done Comments Cervical Cancer Screening Pa p Smear (Age 30 to 64) Every 3 Years 1975 Colorectal Cancer Screening Colonoscopy (10 Years) 1975 Annual Physical 1978 Hepatitis C 1993 DTaP, Tdap and Td Vaccines ( 1 - Tdap) 1994 Hepatitis B Vaccines (1 of 3 - 19+ 3-dose series) 1994 Cervical Cancer Screening Pa p with HPV Testing (Age 30 to 64) Every 5 Years 2005 Cervical Cancer Screening with HPV 2005 Mammogram Screening 2015 COVID-19 Vaccine (2023-2 5 season) 2024 Influenza Adult (#1) 2024 Meningococcal Vaccine Aged Out No wallace rob eligible based on patient's age to complete this topic Pneumococcal Vaccine: Pediat rics (0 to 5 Years) and At-Risk Patients (6 to 64 Years) Aged Out No longer eligible b ased on patient's age to complete this topic RSV Immunizations Under 20 Months Aged Out No longer eligible based on patient's age to complete this topic
--- OUTSIDE RECORDS SUMMARY | 2024-10-20 03:44 | XMS_ITS | Encounter Summary ---
Author Organization [facility] Address [address] [place] [address] Care Team Providers Care Cookee Name Role Phone Niurka Olivarez Primary Care Provider +1- [phone] Encounter Details Date Type Department Care Team (Latest Contact Info) Description 05/17/2024 Travel Social History Tobacco Use Types Packs/Day [...] on filedocumented in this encounter Care Teams Cookee Relationship Specialty Start Date End Date Niurka Olivarez APRN-CNP [address] [place] [address] PCP - General 06/07/19 documented as of this encounter
--- OUTSIDE RECORDS SUMMARY | 2024-10-20 03:44 | XMS_ITS | Referral Summary ---
Author Organization [facility] Address [address] [place] [address] Care Team Providers Care Barrel Tester And Drainer Name Role Phone Niurka Olivarez THOM-HYDRAULIC PRESS SERVICER Primary Care Provider +1- [phone] Source Comments [facility],non-owned Affiliates and Associated Physician Practices is amultiple site organization consisting of ambulatory clinics and hospital sitesin [place], [place], [place] and [place]. This disclosure is being madepursuant to the Care Everywhere program and may not contain all information available regarding this patient. Last updated 18.[facility] Allergies Active Allergy Reactions Criticality Noted Date [...] 06/21/2019 8:58 AM CDT Plan of Treatment Not on file Care Teams Barrel Tester And Drainer Relationship Specialty Start Date End Date Niurka Olivarez APRN-HYDRAULIC PRESS SERVICER [address] [place] [address] PCP - General 06/07/19
--- OUTSIDE RECORDS SUMMARY | 2024-10-20 03:44 | XMS_ITS | Encounter Summary ---
Author Organization [facility] Address [address] [facility] [place] [address] Care Team Providers Care Retail Loss Prevention Investigator Name Role Phone Niurka Olivarez THOM-CARPENTER FOREMAN Primary Care Provider +1- [phone] Encounter Details Date Type Department Care Team (Latest Contact Info) Description 05/21/2024 1:11 PM CDT - 05/21/2024 11:59 PM CDT Hospital Encounter [facility] [address] [facility] [place] [address] Rossy Emmanuel PA-C [address] [facility] [address] [place] [address] Discharge Disposition: Home or Self [...] tablet by mouth once daily 2 05/16/2019 methylPREDNISolone (Medrol Dosepak) 4 MG tabletIndications:Right elbow pain,Acute pain of right shoulder,Subacromial bursitis of right shoulder joint Take by mouth as directed 1 Each 05/21/2024 documented as of this encounter Plan of Treatment Not on file documented as of this encounter Procedures Procedure Name Priority Date/Time Associated Diagnosis Comments XR SHOULDER RIGHT 2VW OR MORE Routine 05/21/2024 1:19 PM CDT Acute pain of right shoulder documented in this encounter Results * XR Shoulder Right [...] in this encounter Visit Diagnoses Diagnosis Acute pain of right shoulder documented in this encounter Care Teams Retail Loss Prevention Investigator Relationship Specialty Start Date End Date Olivarez, THOM Bah-MIGUEL ANGEL [address] [place] [phone] PCP - General 06/07/19 documented as of this encounter
--- OUTSIDE RECORDS SUMMARY | 2024-10-20 03:44 | XMS_ITS | Encounter Summary ---
Author Organization [facility] Address [address] [facility] [place] [address] Care Team Providers Care Surface Supply Breathing Apparatus Name Role Phone Niurka Olivarez HIM ASSISTANT-CASE ASSEMBLER Primary Care Provider +1- [phone] Reason for Visit * Reason Onset Date Comments Pain Knee left Pain Knee 07/02/2019 Encounter Details Date Type Department Care Team (Latest Contact Info) Description 07/02/2019 9:30 AM CDT Office Visit [facility] Orthopedics [address] [facility] [place] [address] Rossy Emmanuel PA-C [address] [place] [id number] Osteoarthritis of left patellofemoral joint (Primary Dx); Santos's cyst of knee, left Social History Tobacco Use Types Packs/Day Years [...] * Patient Instructions* Rossy Emmanuel PA-C - 07/02/2019 12:14 PM CDT Images from the original note were not included. [email or web address] Adult and Pediatric Orthopaedic Surgery Sports Medicine Melinda Olmedo 07/02/2019 Thank you for coming in to see us today. Work/School Excuse: Excused from Work/School on 07/02/19 DIAGNOSIS: Left patellofemoral early onset osteoarthritis Small santos's cyst Plan: We recommend that you try the following for your injury: icing 20 minutes at a time, 3 to 5 times daily, physical therapy exercises, corticosteroid injections and anti-inflammatory medications Cortisone injection given today to affected area, left knee, Please allow injection up to 2 weeks to give you relief, it can last up to 3 months. If you experience increased pain over the next 48 hours, this is normal, and you may use ice and anti-inflammatories for pain relief after injection. Flare-up pain usually lasts 24 to 48 hours and most likely results from a transient reactive synovitis in response to the steroid crystals. Follow up: as needed Call or return to clinic prn if [...] and given information regarding their diagnosis today. [facility]edic office contact information: Please contact our , option #1 to make an appointment if your symptoms are not improving, or if something about your condition significantly changes. Our Locations: [facility] [address] [place] [address], [address], [place] [address] Please contact the MA at , if you have any further questions or concerns. [facility] [address] [place] [address] Please contact Johan Patterson RN at , if you have any further questions or concerns. [facility] , option 2 [place] location: [address], [place] [address] [facility] location: [address] [facility] [place] [address] [facility] location: [address] [place] [address] Sincerely, Rossy Emmanuel MPA, PA-C [email or web address] documented in this encounter Progress Notes * Rossy Emmanuel PA-C - 07/02/2019 12:[address] Niurka Olivarez, HIM ASSISTANT-CASE ASSEMBLER ; Melinda Olmedo is a 44 year old female who returns today, 07/02/19, to clinic for re-evaluation of her left knee . Melinda Olmedo is a 44 year old female who returns for left knee injection. Her MRI is negative from meniscal tears that I discussed with her on phone yesterday. She is doing PT. She feels anteriorknee pain with walking and sitting. Previous treatment tried includes icing, physical therapy exercises, anti- inflammatory medications and MRI for their symptoms. Smoking/tobacco use: negative Single Assessment Numeric Evaluation (SANE Score 0-100): SANE Score 06/07/2019 06/21/2019 Left Knee Score 25 20 Medications: Current Outpatient Medications on File Prior to [...] facility-administered medications on file prior to visit. Allergies as of 07/02/2019 - Reviewed 07/02/2019 Allergen Reaction Noted ??? Penicillins Rash 07/09/2017 PMH: none No past medical history on file. No past surgical history on file. Social History: I Social History Occupational History ??? Not on [...] muscle aches, no leg cramping Physical Exam: There is no height or weight on file to calculate BMI. There were no vitals filed for this visit. The patient is awake, alert, oriented and they are pleasant to speak with. There is no pain with rotation of the right or left hip. There is a negative straight leg raise bilaterally. Gait is normal.Evaluation of the uninjured right knee noted no skin lesions, neurovascularly intact. There is no te nderness/swelling/deformity. Ligamentously stable. Full range of motion. Quadriceps strength is 5/5. The left knee is neurovascularly intact with no active skin lesions. There is no effusion. There istenderness of the medial facet of the patella and lateral facet of the patella. Range of motion is unrestricted . Mylene is negative. Quad strength is 4/5. There is not a palpable gap in the patellar and quadriceps tendons. They are able to do an active straight leg raise. There is no varus laxity. There is no valgus laxity. There is no posterior sag. McMurrays test is negative. Dial test is negative. The extensor mechanism is intact. The patellar tracks well. Patellar apprehension test is negative. Testing for generalized ligamentous laxity is negative. Imaging: L knee X-rays and MRI images demonstrate Grade 4 chondromalacia, medial patellar facet and median patellar ridge. Small Santos's cyst. Menisci are intact. Images were personally interpreted and reviewed by me today in clinic. Impression: Left patellofemoral early onset osteoarthritis Small santos's cyst Plan: We recommend that you try the following for your injury: icing 20 minutes at a time, 3 to 5 times daily, physical therapy exercises, corticosteroid injections and anti-inflammatory medications Cortisone injection given today to affected area, left knee Follow up: as needed Patient was educated and given information regarding their diagnosis today. Please do not hesitate to contact me with questions regarding her or any other patient in the future. Sincerely, Rossy Emmanuel MPA, PA-C * Rupa Pastrana - 07/02/2019 11:47 AM CDT Left knee pain f/u. Pt returns for cortisone injection. Rates pain today 04/21. documented in this encounter Procedure Notes * Rossy Emmanuel PA-C - 07/02/2019 12:16 PM CDTAssociated Order(s): JOINT INJ Post-Procedure Diagnose(s): Osteoarthritis of left patellofemoral joint; Santos's cyst of knee, left Melinda Olmedo is a 44 year old female patient. Injecton knee The patient was offered a cortisone injection into the left knee. After discussing the risks and benefits of the procedure, the patient elected to proceed. After sterile preparation, the left knee was injected, with a combination in One syringe: 3mL ropivacaine and Second syringe: 4mL ropivacaine (5mg/mL) + 2ml Kenalog (40mg/mL). The patient tolerated the procedure well without complication. Prep: patient was prepped and draped in usual sterile fashion Medications ordered and administration documented through clinic-administered medications activity. Patient tolerance: Patient tolerated the procedure well with no immediate complications documented in this encounter Miscellaneous Notes * Addendum Note - Johan Patterson RN - 07/02/2019 12:24 PM CDTAddended by: JOHAN PATTERSON on: 07/02/2019 12:24 PM Modules accepted: Orders, SmartSet documented in this encounter Plan of Treatment Not on file documented as of this encounter Procedures Procedure Name Priority Date/Time Associated Diagnosis Comments PROCDOC MULTI JOINT ARTHROCENTESIS Routine 07/02/2019 12:16 PM CDT Osteoarthritis of left patellofemoral joint Santos's cyst of knee, left documented in this encounter Results * JOINT INJ (07/02/2019 12:16 PM CDT) Narrative Rossy Emmanuel PA-C - 07/02/2019 12:16 PM CDT Rossy Emmanuel PA-C ? 07/02/2019 12:20 PM Prep: patient was prepped and draped in usual sterile fashion ?? Medications ordered and administration documented through clinic-administered medications activity. Patient tolerance: ??Patient tolerated the procedure well with no immediate complications Rossy Emmanuel PA-C PROCEDURE/MINOR SURG ICAL ORDERABLES documented in this encounter Visit Diagnoses Diagnosis Osteoarthritis of left patellofemoral joint- Primary Santos's cyst of knee, left documented in this encounter Administered Medications Inactive Administered Medications - up to 3 most recent administrations Medication Order MAR Action Action Date Dose Rate Site ropivacaine (NAROPIN) 5 MG/ML (0.5%) injection 4 mL 4 mL, Intra-articular, ONCE, 1 dose, On Fri07/02/19 at 1245 $ Given 07/02/2019 12:23 PM CDT 4 mL Left Knee triamcinolone acetonide (KENALOG-40) injection 80 mg 80 mg, Intra-articular, ONCE, 1 dose, On Fri07/02/19 at 1245, Shake well before using. $ Given 07/02/2019 12:24 PM CDT 80 mg Left Knee documented in this encounter Care Teams Surface Supply Breathing Apparatus Relationship Specialty Start Date End Date Niurka Olivarez APRN-MIGUEL ANGEL [address] [place] [address] PCP - General 06/07/19 documented as of this encounter
--- OUTSIDE RECORDS SUMMARY | 2024-10-20 03:44 | XMS_ITS | Encounter Summary ---
Author Organization [facility] Address [address] [place] [address]. [place] [address] [place] [address] Care Team Providers Care Pipe Racker Name Role Phone Kristi Cazares MD Primary Care Provider Unavailable Kristi Cazares MD Primary Care Provider Unavailable Kristi Cazares MD Primary Care Provider Unavailable Encounter Details Date Type Department Care Team (Late st Contact Info) Description 09/01/2013 Abstract [facility] Interventional [facility] [place] [address] [id number] Elis Hood MD [address] [facility] [address] [place], [place] [id number] Social History Tobacco Use Types Packs/Day Years Used Date Smoking Tobacco: Never Assessed Comments Unknown Sex and Gender Information Value Date Recorded Sex Assigned at Not on file Legal Sex Female 8:27 PM CDT Gender Identity Not on file Sexual Orientation Not on file documented as of this encounter Plan of Treatment Not on file documented as of this encounter Visit Diagnoses Diagnosis Thoracic or lumbosacral neuritis or radiculitis Thoracic or lumbosacral neuritis or radiculitis, unspecified documented in this encounter Care Teams Pipe Racker Relationship Specialty Start Date End Date Kristi Cazares MD PCP - General 04/20/14 Kristi Cazares MD PCP - General 03/30/14 4 Kristi Cazares MD PCP - General 07/28/13 documented as of this encounter
--- OUTSIDE RECORDS SUMMARY | 2024-10-20 03:44 | XMS_ITS | Encounter Summary ---
Author Organization [facility] Address [address] [place] [address]. [place] [address] [place] [address] Care Team Providers Care Box Closing Machine Operator Name Role Phone Md Generic Conversion Primary Care Provider Unavailable Md Generic Elvis WILSON Primary Care Provider Unavailable Md Generic Elvis WILSON Primary Care Provider Unavailable Md Generic Elvis WILSON Primary Care Provider Unavailable Encounter Details Date Type Department Care Team (Late st Contact Info) Description 07/07/2013 Abstract [facility] Inter[facility] [place] [address] [id number] Elis Hood MD [address] [facility] [address] [place] [address] Social History Tobacco Use Types Packs/Day Years Used Date Smoking Tobacco: Never Assessed Comments Unknown Sex and Gender Information Value Date Recorded Sex Assigned at Not on file Legal Sex Female 8:27 PM CDT Gender Identity Not on file Sexual Orientation Not on file documented as of this encounter Plan of Treatment Not on file documented as of this encounter Visit Diagnoses Diagnosis Arthropathy involving other sites documented in this encounter Care Teams Box Closing Machine Operator Relationship Specialty Start Date End Date Kristi Wilson MD PCP - General 04/20/14 Md Generic MD Elvis PCP - General 03/30/14 4 Kristi Wilson MD PCP - General 07/28/13 Kristi Wilson MD PCP - General 07/07/1307/27 documented as of this encounter
--- OUTSIDE RECORDS SUMMARY | 2024-10-20 03:44 | XMS_ITS | Encounter Summary ---
Author Organization [facility] Address [address] [place] [address]. [place] [address] [place] [address] Care Team Providers Care Contestant Coordinator Name Role Phone Md Generic Elvis WILSON Primary Care Provider Unavailable Kristi Wilson MD Primary Care Provider Unavailable Kristi Wilson MD Primary Care Provider Unavailable Encounter Details Date Type Department Care Team (Late st Contact Info) Description 09/13/2013 Abstract [facility] Interventional [place] [address] [id number] Elis Hood MD Three [facility] [address] [place], [place] [id number] Social History Tobacco Use Types Packs/Day Years [...] on filedocumented in this encounter Care Teams Contestant Coordinator Relationship Specialty Start Date End Date Kristi Wilson MD PCP - General 04/20/14 Kristi Wilson MD PCP - General 03/30/14 4 Kristi Wilson MD PCP - General 07/28/13 documented as of this encounter
--- OUTSIDE RECORDS SUMMARY | 2024-10-20 03:44 | XMS_ITS | Encounter Summary ---
Author Organization [facility] Address [address] [place] [address]. [place] [address] [place] [address] Care Team Providers Care Hospital Administrator Name Role Phone Md Generic Conversion Primary Care Provider Unavailable Md Generic Conversion Primary Care Provider Unavailable Encounter Details Date Type Department Care Team (Late st Contact Info) Description 03/30/2014 Abstract [facility] Inter[facility] [place] [address] [id number] Elis Hood MD Three [facility] [address] [place], [place] [phone] Social History Tobacco Use Types Packs/Day Years [...] sites documented in this encounter Care Teams Hospital Administrator Relationship Specialty Start Date End Date Kristi Cazares MD PCP - General 04/20/14 Kristi Cazares MD PCP - General 03/30/14 4 documented as of this encounter
--- OUTSIDE RECORDS SUMMARY | 2024-10-20 03:44 | XMS_ITS | Encounter Summary ---
Author Organization [facility] Address [address] [place] [address] Care Team Providers Care Profile Grinder Name Role Phone Niurka Olivarez APRN-BUSINESS DEVELOPMENT COORDINATOR Primary Care Provider [phone]- [phone] Reason for Referral * Radiology Services (Routine) - Closed Specialty Diagnoses / Procedures Referred By Contac t Referred To Contact MRI Diagnoses Acute internal derangement of left knee Procedures MRI KNEE LEFT WO CONTRAST Rossy Emmanuel PA-C [address] [address] Referral ID Status Reason Start Date Expiration Date Visits Re quested Visits Authorized [id number] Closed 06/21/2019 12/18/2019 1 1 Reason for Visit * Radiology Services (Routine) - Closed Specialty Diagnoses / Procedures Referred By Contac t Referred To Contact MRI Diagnoses Acute internal derangement of left knee Procedures MRI KNEE LEFT WO CONTRAST Rossy Emmanuel PA-C [address] [address] Referral ID Status Reason Start Date Expiration Date Visits Re quested Visits Authorized [id number] Closed 06/21/2019 12/18/2019 1 1 Encounter Details Date Type Department Care Team (Latest Contact Info) Description 07/01/2019 7:15 AM CDT - 07/01/2019 11:59 PM CDT Hospital Encounter [facility] Imaging Services - MRI [address] [place] [address] Rossy Emmanuel PA-C [address] - [facility] [address] [place] [address] Discharge Disposition: Home or Self Care Social [...] Procedure Name Priority Date/Time Associated Diagnosis Comments MRI KNEE LEFT WO CONTRAST Routine 07/01/2019 7:49 AM CDT Acute internal derangement of left knee documented in this encounter Results * MRI KNEE LEFT [...] Diagnoses Diagnosis Acute internal derangement of left knee documented in this encounter Care Teams Profile Grinder Relationship Specialty Start Date End Date Olivarez, Niurka, CHECK CASHIER-MIGUEL ANGEL [address] [place] [address] PCP - General 06/07/19 documented as of this encounter
--- OUTSIDE RECORDS SUMMARY | 2024-10-20 03:44 | XMS_ITS | Encounter Summary ---
Author Organization [facility] Address [address] [place] [address]. [place] [address] [place] [address] Care Team Providers Care Food Service Assistant Name Role Phone Md Generic Elvis WILSON Primary Care Provider Unavailable Kristi Wilson MD Primary Care Provider Unavailable Md Generic Elvis WILSON Primary Care Provider Unavailable Encounter Details Date Type Department Care Team (Late st Contact Info) Description 07/28/2013 Abstract [facility] [place] [address] [phone] Elis Hood MD Three [facility] [address] [place], [place] [id number] Social History Tobacco Use Types Packs/Day Years [...] myelopathy documented in this encounter Care Teams Food Service Assistant Relationship Specialty Start Date End Date Kristi Wilson MD PCP - General 04/20/14 Kristi Wilson MD PCP - General 03/30/14 4 Kristi iWlson MD PCP - General 07/28/13 documented as of this encounter
--- OUTSIDE RECORDS SUMMARY | 2024-10-20 03:45 | XMS_ITS | Encounter Summary ---
Author Organization [facility] Address [address] [place] [address]. [place] [address] [place] [address] Care Team Providers Care Heel Turner Name Role Phone Md Generic Conversion Primary Care Provider Unavailable Md Generic Conversion Primary Care Provider Unavailable Md Generic Conversion Primary Care Provider Unavailable Md Generic Conversion Primary Care Provider Unavailable Md Generic Conversion Primary Care Provider Unavailable Md Generic Conversion Primary Care Provider Unavailable Encounter Details Date Type Department Care Team (Late st Contact Info) Description 03/16/2013 Abstract [facility] [place] [address] [phone] Elis Hood MD Three [facility] [address] [place] [address] Social History Tobacco Use Types Packs/Day Years [...] disc documented in this encounter Care Teams Heel Turner Relationship Specialty Start Date End Date Md Generic ConversionMD PCP - General 04/20/14 Md Generic ConversionMD PCP - General 03/30/14 4 Md Generic ConversionMD PCP - General 07/28/13 Md Generic ConversionMD PCP - General 07/07/1307/27 Md Generic ConversionMD PCP - General 03/30/13 Md Generic ConversionMD PCP - General 03/16/13 documented as of this encounter
--- OUTSIDE RECORDS SUMMARY | 2024-10-20 03:45 | XMS_ITS | Encounter Summary ---
Author Organization [facility] Address [address] [place] [address]. [place] [address] [place] [address] Care Team Providers Care Charge Master Coordinator Name Role Phone Md Generic Conversion Primary [...] WILSON Primary Care Provider Unavailable Md Generic Conversion Primary Care Provider Unavailable Encounter Details Date Type Department Care Team (Late st Contact Info) Description 07/29/2012 Abstract [facility] [place] [address] [phone] Elis Hood MD Three [facility] [address] [place], [place] [address] Social History Tobacco Use Types Packs/Day Years [...] disc documented in this encounter Care Teams Charge Master Coordinator Relationship Specialty Start Date End Date Kristi Wilson MD PCP - General 04/20/14 Kristi Wilson MD PCP - General 03/30/14 4 Kristi Wilson MD PCP - General 07/28/13 Kristi Wilson MD PCP - General 07/07/1307/27 Md Generic MD Elvis PCP - General 03/30/13 , Generic Conversion, MD PCP - General 03/16/13 Md, Generic Conversion, MD PCP - General 03/01/13 3 Md, Generic Conversion, MD PCP - General 01/12/13 Md, Generic Conversion, MD PCP - General 07/29/12 3 documented as of this encounter
--- OUTSIDE RECORDS SUMMARY | 2024-10-20 03:45 | XMS_ITS | Encounter Summary ---
Author Organization [facility] Address [address] [place] [address]. [place] [address] [place] [address] Care Team Providers Care Groundsman Name Role Phone Md Generic Conversion Primary [...] Care Team (Late st Contact Info) Description 08/12/2012 Abstract [facility] [place] [address] [phone] Elis Hood MD Three [facility] [address] [place], [place] [address] Social History Tobacco Use Types Packs/Day Years [...] disc documented in this encounter Care Teams Groundsman Relationship Specialty Start Date End Date Kristi [...]
--- OUTSIDE RECORDS SUMMARY | 2024-10-20 03:45 | XMS_ITS | Encounter Summary ---
Author Organization [facility] Address [address] [place] [address]. [place] [address] [place] [address] Care Team Providers Care Regulatory Submissions Associate Name Role Phone Md Generic Elvis WILSON [...] Care Team (Late st Contact Info) Description 01/12/[address] [facility] [place] [address] [phone] Elis Hood MD Three [facility] [place] [address] [place], [place] [phone] Social History Tobacco Use Types Packs/Day Years [...] disc documented in this encounter Care Teams Regulatory Submissions Associate Relationship Specialty Start Date End Date Kristi Wilson MD PCP - General 04/20/14 Md Generic MD Elvis PCP - General 03/30/14 4 Kristi Wilson MD PCP - General 07/28/13 Kristi Wilson MD PCP - General 07/07/1307/27 Kristi Wilson MD PCP - General 6/18/13 9/24/ 13 Md, Generic Conversion, MD PCP - General 03/16/13 , Generic Conversion, MD PCP - General 03/01/13 3 , Generic Conversion, MD PCP - General 01/12/13 documented as of this encounter
--- OUTSIDE RECORDS SUMMARY | 2024-10-20 03:45 | XMS_ITS | Encounter Summary ---
Author Organization [facility] Address [address] [place] [address]. [place] [address] [place] [address] Care Team Providers Care Field Secretary Name Role Phone Md Generic Conversion Primary Care Provider Unavailable Md Generic Elvis WILSON Primary Care Provider Unavailable Md Generic Elvis WILSON Primary Care Provider Unavailable Md Generic Elvis WILSON Primary Care Provider Unavailable Md Generic Elvis WILSON Primary Care Provider Unavailable Encounter Details Date Type Department Care Team (Late st Contact Info) Description 03/30/2013 Abstract [facility] [place] [address] [phone] Elis Hood MD Three [facility] [address] [place] [address] Social History Tobacco Use Types Packs/Day Years [...] disc documented in this encounter Care Teams Field Secretary Relationship Specialty Start Date End Date Md Generic ConversionMD PCP - General 04/20/14 Md Generic ConversionMD PCP - General 03/30/14 4 Kristi Wilson MD PCP - General 07/28/13 Md Generic ConversionMD PCP - General 07/07/1307/27 Md Generic ConversionMD PCP - General 03/30/13 documented as of this encounter
--- OUTSIDE RECORDS SUMMARY | 2024-10-20 03:45 | XMS_ITS | Encounter Summary ---
Author Organization [facility] Address [address] [place] [address]. [place] [address] [place] [address] Care Team Providers Care Authors Motivational Name Role Phone Md Generic Elvis WILSON [...] Care Team (Late st Contact Info) Description 03/01/2013 Abstract [facility] [place] [address] [phone] Elis Hood MD Three [facility] [address] [place] [address] Social History Tobacco Use Types Packs/Day Years [...] disc documented in this encounter Care Teams Authors Motivational Relationship Specialty Start Date End Date Md Generic ConversionMD PCP - General 04/20/14 Md Generic ConversionMD PCP - General 03/30/14 4 Md Generic ConversionMD PCP - General 07/28/13 Md Generic ConversionMD PCP - General 07/07/1307/27 Md Generic ConversionMD PCP - General 03/30/13 Md Generic ConversionMD PCP - General 03/16/13 Md, Generic Conversion, MD PCP - General 03/01/13 3 documented as of this encounter
--- OUTSIDE RECORDS SUMMARY | 2024-10-20 03:50 | XMS_ITS | Encounter Summary ---
Author Organization [facility] Address [address] [place] [address] Phone Care Team Providers Care Director Writing Name Role Phone Dakota Fabian APRN, CNP Primary Care Pr ovider Reason for Visit * Reason Comments Medication Refill Encounter Details Date Type Department Care Team (Late st Contact Info) Description 06/02/2024 Refill [facility] Medical Group - Family Medicine [facility] [address] [place] [phone] Dakota Fabian APRN, MIGUEL ANGEL [address] [address] Medication Refill Social History Tobacco Use Types Packs/Day Years Used Date Smoking Tobacco: Never Smokeless Tobacco: Never Alcohol Use Standard Drinks/Week Comments No 0 (1 standard drink = 0.6 oz pur e alcohol) [facility] Utilities Answer Date Recorded In the past 12 months has [employer] electric, gas, oil, or water company threatened to shut off services in your home? No 03/16/2024 Social Connection and Isolat ion Panel [NHANES] Answer Date Recorded In a typical week, how many times do you talk on the phone with family, friends, or neighbors? More than three times a week 03/16/2024 How often do you get togethe r with friends or relatives? Twice a week 03/16/2024 How often do you attend chur ch or latter-day services? More than 4 times per year 03/16/2024 Do you belong to any clubs o r organizations such as mandaen groups, unions, fraternal or athletic groups, or school groups? No 03/16/2024 How often do you attend meet ings of the clubs or organizations you belong to? Never 03/16/2024 Are you , , di vorced, , never , or living with a partner? 03/16/2024 AUDIT-C Answer Date Recorded Q1: How often do you have a drink containing alcohol? Never 03/16/2024 Q2: How many drinks containi ng alcohol do you have on a typical day when you are drinking? Patient does not drink Q3: How often do you have si x or more drinks on one occasion? Never 03/16/2024 Overall Financial Resource Strain (CARDIA) Answe r Date Recorded How hard is it for you to pa y for the very basics like food, housing, medical care, and heating? Not very hard 03/16/2024 PHQ-2 Answer Date Recorded Total Score - Questions 1-9 0 12/12 [facility] of Occupat ional [facility] - Occupational Stress Questionnaire Answer Date Recorded Do you feel stress - tense, restless, nervous, or anxious, or unable to sleep at night because your mind is troubled all the time - these days? Very much 03/16/2024 Exercise Vital Sign Answer Date Recorde d On average, how many days pe r week do you engage in moderate to strenuous exercise (like a brisk walk)? 0 days 03/16/2024 On average, how many minutes do you engage in exercise at this level? 60 min 03/16/2024 Hunger Vital Sign Answer Date Recorded Within the past 12 months, y ou worried that your food would run out before you got the money to buy more. Never true 03/16/20 24 Within the past 12 months, t he food you bought just didn't last and you didn't have money to get more. Never true 03/16/2024 PRAPARE - Transportation Answer Date Re corded In the past 12 months, has l ack of transportation kept you from medical appointments or from getting medications? No 01/2024 In the past 12 months, has l ack of transportation kept you from meetings, work, or from getting things needed for daily living? No 03/16/2024 Housing Stability Vital Sign Answer Jitendra e Recorded In the last 12 months, was t here a time when you were not able to pay the mortgage or rent on time? No 03/16/2024 In the last 12 months, how many places have you lived? 1 03/16/2024 In the last 12 months, was t here a time when you did not have a steady place to sleep or slept in a mcfp (including now)? No 03/16/2024 Education Answer Date Recorded What is the highest level of school you have completed or the highest degree you have received? 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 Requested Prescriptions Pending Prescriptions Disp Refills ondansetron (ZOFRAN-ODT) 4 MG TABLET DISPERSIBLE [Pharmacy Med Name: ONDANSETRON ODT 4 MG TABLET] 15 Tablet 0 Sig: TAKE 1 TABLET BY MOUTH EVERY 8 HOURS NEEDED FOR NAUSEA FIRST LINE Not Delegated - 5-HT3 Antagonists Protocol Failed - 06/02/2024 6:47 AM Failed - This refill cannot be delegated Passed - Visit with relevant provider in past 12 months or upcoming 90 days Recent Visits Date Type Provider Dept 04/27/24 Office Visit Dakota Fabian APRN, MIGUEL ANGEL [facility] 03/16/24 Office Visit Dakota Fabian APRN, MIGUEL ANGEL [facility] Showing recent visits within past 365 days and meeting all other requirements Future Appointments No visits were found meeting these conditions. Showing future appointments within next 90 days and meeting all other requirements documented in this encounter Plan of Treatment Upcoming Encounters Date Type Department Care Team (Late st Contact Info) Description 11/02/2024 8:15 AM EVICTION SPECIALIST Office Visit [facility] [address] [place] [address] Dakota Fabian APRN, MAIN LINE STATION ENGINEER [address] [address] 11/26/2024 11:30 AM EVICTION SPECIALIST Office Visit [facility] [address] [place] [address] Maggie Tolentino, PAC [address] [place] [address] documented as of this encounter Visit Diagnoses Diagnosis Acute UTI Urinary tract infection, site not specified documented in this encounter Additional Health Concerns Infection Onset Date Last Indicated Resolved Time MRSA 03/30/2020 03/30/2020 Assessment Noted Time PHQ-9 Depression Total Score: 0 01/04/20 2:56 PM CDT documented as of this encounter Care Teams Director Writing Relationship Specialty Start Date End Date Dakota Fabian APRN, MIGUEL ANGEL [address] [address] PCP - General Advanced Practice Nurse 04/27/24 documented as of this encounter
--- OUTSIDE RECORDS SUMMARY | 2024-10-20 03:50 | XMS_ITS | Encounter Summary ---
Author Organization [employer] Care Team Providers Care Web Master Name Role Phone Dakota Fabian APRN, CUSTOMS COMPLIANCE DIRECTOR Primary Care Pr ovider Encounter Details Date Type Department Care Team (Latest Contact Info) Description 06/04/2024 Travel Social History Tobacco Use Types Packs/Day Years Used Date Smoking Tobacco: Never Smokeless Tobacco: Never Alcohol Use Standard Drinks/Week Comments No 0 (1 standard drink = 0.6 oz pur e alcohol) [facility] Utilities Answer Date Recorded In the past 12 months has [employer] electric, gas, oil, or water company threatened [...] any clubs o r organizations such as oriental orthodox groups, unions, fraternal or athletic groups, or [...] Total Score - Questions 1-9 0 12/12 [facility] of Occupat ional Health - Occupational Stress Questionnaire Answer Date Recorded [...] place to sleep or slept in a retirement (including now)? 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 Question Answer Date of Assessment Author Patient Health Questionnaire -2 Score 0 06/04/2024 8:50 AM CDT Clarita De Souza C MA documented as of this encounter Plan of Treatment Upcoming Encounters Date Type Department Care Team (Late st Contact Info) Description 11/02/2024 8:15 AM ONLINE COMMUNICATIONS SPECIALIST Office Visit [facility] [address] [place] [address] Dakota Fabian APRN, CUSTOMS COMPLIANCE DIRECTOR #[address] [address] 11/26/2024 11:30 AM ONLINE COMMUNICATIONS SPECIALIST Office Visit [facility] [address] [place] [address] Maggie Tolentino, [place] [address] [place] [address] documented as of this encounter Visit Diagnoses Not on filedocumented in this encounter Additional Health Concerns Infection Onset Date Last Indicated Resolved Time MRSA 03/30/2020 03/30/2020 Assessment Noted Time PHQ-9 Depression Total Score: 0 01/04/20 23 2:56 PM CDT documented as of this encounter Care Teams Web Master Relationship Specialty Start Date End Date Dakota Fabian APRN, CUSTOMS COMPLIANCE DIRECTOR [address] [place] [phone] PCP - General Advanced Practice Nurse 04/27/24 documented as of this encounter
--- OUTSIDE RECORDS SUMMARY | 2024-10-20 03:50 | XMS_ITS | Encounter Summary ---
Author Organization [facility] Address [address] [place] [address] Phone Care Team Providers Care Store Warehouse Associate Name Role Phone Dakota Fabian APRN, MIGUEL ANGEL Primary Care Pr ovider Reason for Visit * Reason Onset Date Comments Results 06/07/2024 Encounter Details Date Type Department Care Team (Late st Contact Info) Description 06/07/2024 Telephone [facility] [address] [place] [address] Maggie Tolentino, [facility] [address] [place] [address] Results Social History Tobacco Use Types Packs/Day Years Used Date Smoking Tobacco: Never Smokeless Tobacco: Never Alcohol Use Standard Drinks/Week Comments No 0 (1 standard drink = 0.6 oz pur e alcohol) [facility] Utilities Answer Date Recorded In the past 12 months has [employer] electric, gas, oil, or water company threatened [...] often do you attend chur ch or yarsanism services? More than 4 times per year 03/16/2024 Do you belong to any clubs o r organizations such as buddhism groups, unions, fraternal or athletic groups, or [...] Total Score - Questions 1-9 0 12/12 [facility] of Occupat ional [facility] - Occupational Stress Questionnaire Answer Date [...] 01/2024 In the past 12 months, has maricruz dowd of transportation kept you from meetings, work, [...] place to sleep or slept in a half-way (including now)? 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 Pt states she is seeing improvement. * Telephone Encounter - Rissa Wilson RN - 06/07/2024 9:37 AM CDT ----- Message from Maricruz Tolentino sent at 06/07/2024 9:14 AM CDT ----- No MRSA, antibiotic should treat, notify if no improvements documented in this encounter Plan of Treatment Upcoming Encounters Date Type Department Care Team (Late st Contact Info) Description 11/02/2024 8:15 AM REMNANTS CUTTER Office Visit [facility] Medical Group - Family [facility] [address] [place] [address] Dakota Fabian APRN, MORTGAGE LOAN COMPUTATION CLERK #[address] [address] 11/26/2024 11:30 AM REMNANTS CUTTER [facility] Visit [facility] [address] [place] [address] Maggie Tolentino, PAC [address] [place] [address] documented as of this encounter Visit Diagnoses Not on filedocumented in this encounter Additional Health Concerns Infection Onset Date Last Indicated Resolved Time MRSA 03/30/2020 03/30/2020 Assessment Noted Time PHQ-9 Depression Total Score: 0 01/04/20 23 2:56 PM CDT documented as of this encounter Care Teams Store Warehouse Associate Relationship Specialty Start Date End Date Dakota Fabian APRN, MORTGAGE LOAN COMPUTATION CLERK #[address] [address] PCP - General Advanced Practice Nurse 04/27/24 documented as of this encounter
--- OUTSIDE RECORDS SUMMARY | 2024-10-20 03:50 | XMS_ITS | Encounter Summary ---
Author Organization [facility] Address [address] [place] [address] Phone Care Team Providers Care Core Dipper Name Role Phone Dakota Fabian APRN, SMALL PRODUCTS I ASSEMBLER Primary Care Pr ovider Reason for Visit * Reason Comments Nail Problem Encounter Details Date Type Department Care Team (Late st Contact Info) Description 06/04/2024 9:00 AM CDT Office Visit [facility] - Family [facility] [address] [place] [address] Maggie Tolentino PAC [address] [place] [address] Primary hypertension (Primary Dx); Paronychia of finger, left; Chronic sinusitis, unspecified location Discharge Disposition: Discharged to home or Selfcare Social History Tobacco Use Types Packs/Day Years Used Date Smoking Tobacco: Never Smokeless Tobacco: Never Alcohol Use Standard Drinks/Week Comments No 0 (1 standard drink = 0.6 oz pur e alcohol) [facility] Utilities Answer Date Recorded In the past 12 months has e [employer], gas, oil, or water company threatened to [...] often do you attend chur ch or anabaptist services? More than 4 times per year 03/16/2024 Do you belong to any clubs o r organizations such as confucianist groups, unions, fraternal or athletic groups, or [...] Total Score - Questions 1-9 0 12/12 [facility] - Occupational Stress [...] place to sleep or slept in a detention (including now)? 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 Not on file documented as of this encounter Last Filed Vital Signs Vital Sign Reading Time Taken Comments Blood Pressure 142/84 06/04/2024 8:37 AM CDT Pulse 61 06/04/2024 8:37 AM CDT Temperature 36.8 ??C (98.3 ??F) 06/04/2024 8:37 AM CD T Respiratory Rate - - Oxygen Saturation 99% 06/04/2024 8:37 AM CDT Inhaled Oxygen Concentration - - Weight 106.6 kg (235 lb) 06/04/2024 8:37 AM CDT Height 158.8 cm (5' 2.5 ) 06/04/2024 8:37 AM CDT Body Mass Index 42.3 06/04/2024 8:37 AM CDT documented in this encounter Functional Status * Question Answer [...] C MA documented as of this encounter Progress Notes * Clarita De Souza CMA - 06/04/2024 9:00 AM CDT Melinda Olmedo, 49 y.o., female is here for Nail Problem Medication Refills: Patient reports/denies need for medication refills. Orders Pended: no Requested Prescriptions No prescriptions requested or ordered in this encounter Home Medications Medication Sig Start Date End Date Taking? Authorizing Provider acetaminophen-codeine (TYLENOL #3) 300-30 MG Tablet Take 1-2 Tablets by mouth every 6 hours as needed for Moderate or more severe pain. Patient not taking: Reported on 06/04/2024 04/27/24 Dakota Fabian APRN, SMALL PRODUCTS I ASSEMBLER albuterol (PROVENTIL/VENTOLIN) 1.25 MG/3ML Nebulizer Soln INHALE 1 VIAL (3MLS) VIA NEBULIZER EVERY 4 HOURS NEEDED FOR WHEEZING OR COUGH 07/09/22 John Méndez MD albuterol 108 (90 Base) MCG/ACT Aerosol Solution TAKE 2 PUFFS BY MOUTH EVERY 4 HOURS NEEDED FOR WHEEZE 11/05/22 John Méndez MD amLODIPine (NORVASC) 10 MG Tablet TAKE 1 TABLET BY MOUTH EVERY DAY Patient taking differently: every morning. 11/10/23 John Méndez MD atorvastatin (LIPITOR) 20 MG Tablet TAKE 1 TABLET BY MOUTH EVERY DAY IN THE EVENING Patient not taking: Reported on 05/14/2024 11/10/23 John Méndez MD buPROPion (WELLBUTRIN) 150 MG XL tablet TAKE 1 TABLET BY MOUTH EVERY DAY IN THE MORNING Patient not taking: Reported on 05/14/2024 11/10/23 John Méndez MD cetirizine (ZyrTEC) 10 MG Tablet TAKE 1 TABLET BY MOUTH EVERY DAY 06/17/23 John Méndez MD Cyanocobalamin (VITAMIN B-12) 100 MCG Tablet Take 1 Tablet by mouth daily. Patient not taking: Reported on 05/14/2024 05/11/24 Dakota Fabian APRN, CNP FLUoxetine (PROzac) 20 MG Capsule Take 20 mg by mouth daily. Adolfo Sotomayor MD folic acid (FOLVITE) 400 MCG Tablet Take 1 Tablet by mouth daily. Patient not taking: Reported on 05/14/2024 05/11/24 Dakota Fabian APRN, CNP losartan (COZAAR) 50 MG Tablet Take 1 Tablet by mouth daily. 04/29/22 John Méndez MD montelukast (SINGULAIR) 10 MG Tablet Take 1 Tablet by mouth daily. 09/03/22 John Méndez MD Multiple Vitamin (MULTI-VITAMIN PO) Take by mouth. Takes all in one now Adolfo Sotomayor MD naproxen (NAPROSYN) 500 MG Tablet Take 500 mg by mouth 2 times daily as needed for Moderate or moresevere pain. Patient not taking: Reported on 06/04/2024 Adolfo Sotomayor MD omeprazole (PriLOSEC) 40 MG CAPSULE DELAYED RELEASE Take 1 Capsule by mouth daily. 04/29/22 John Méndez MD ondansetron (ZOFRAN-ODT) 4 MG TABLET DISPERSIBLE TAKE 1 TABLET BY MOUTH EVERY 8 HOURS NEEDED FORNAUSEA FIRST LINE 06/02/24 Dakota Fabian APRN, CNP sertraline (ZOLOFT) 50 MG Tablet Take 1 Tablet by mouth daily. Patient not taking: Reported on 06/04/2024 03/16/24 Dakota Fabian APRN, CNP tiZANidine (ZANAFLEX) 4 MG Tablet Take 1 Tablet by mouth nightly as needed for Muscle spasms. 05/07/24 Dakota Fabian APRN, CNP There are no discontinued medications. I have reviewed the home medication list with the patient and have reconciled discrepancies. The list is accurate to the best of my knowledge. Smoking Status: Social History Tobacco Use Smoking status: Never Smokeless tobacco: Never Vaping Use Vaping status: Never Used Substance Use Topics Alcohol use: No Drug use: No Smoking Cessation Counseling Given: no Health Care Maintenance: Health Maintenance Due Topic Date Due TdaP Immunization Never done Hepatitis B Immunization (1 of 3 - 19+ 3-dose series) Never done Colorectal Cancer Screening Never done SARS-COV-2 Immunization (2022- season) Never done Mammogram 08/02/2023 Orders Pended: no The following BPA's have been addressed with the patient today: Depression and learning * Maggie Tolentino PAC - 06/04/2024 9:00 AM CDT Subjective: Subjective Left index finger sore and redness started 2 days ago 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 Also reviewed she needs her blood pressure medication refilled. In the future would like transfer of care to female provider. She has some anxiety feels more comfortable with a female. Review of Systems Constitutional: Negative for chills and fever. HENT: Positive for congestion. Respiratory: Negative for shortness of breath. Cardiovascular: Negative for chest pain. Objective: Objective Physical Exam Vitals reviewed. Constitutional: Appearance: Normal appearance. She is not ill-appearing. Eyes: General: Right eye: No discharge. Left eye: No discharge. Extraocular Movements: Extraocular movements intact. Cardiovascular: Rate and Rhythm: Normal rate. Pulmonary: Effort: No respiratory distress. Skin: General: Skin is warm. Comments: Around the left index finger there is erythema mild edema no significant drainage. Patient was able to squeeze the finger and express a small amount of fluid. Neurological: Mental Status: She is alert. Psychiatric: Mood and Affect: Mood normal. Assessment and Plan Assessment & Plan See Diagnoses, Orders, Follow-up, and Instructions .Diagnoses and all orders for this visit: Primary hypertension - losartan (COZAAR) 50 MG Tablet; Take 1 Tablet by mouth daily. Paronychia of finger, left - CULTURE, AEROBIC; Future - CULTURE, AEROBIC Chronic sinusitis, unspecified location - cetirizine (ZyrTEC) 10 MG Tablet; Take 1 Tablet by mouth daily. - montelukast (SINGULAIR) 10 MG Tablet; Take 1 Tablet by mouth daily. Other orders - doxycycline hyclate (VIBRAMYCIN) 100 MG Capsule; Take 1 Capsule by mouth 2 times daily for 10 days. Blood pressure is fair controlled may have been out of medication refilled losartan. Discussed paronychia recommend warm soaks can start antibiotic doxycycline as directed. Discussed chronic sinusitis refilled cetirizine in [facility]. Return to clinic in 3 months for transfer care appointment. Notify of any acute problems. documented in this encounter Plan of Treatment Upcoming Encounters Date Type Department Care Team (Late st Contact Info) Description 11/02/2024 8:15 AM CLIENT ACCOUNT ASSISTANT Office Visit [facility] [address] [place] [address] Dakota Fabian APRN, SMALL PRODUCTS I ASSEMBLER [address] [address] 11/26/2024 11:30 AM CLIENT ACCOUNT ASSISTANT Office Visit [facility] [address] [place] [address] Maggie Tolentino, PAC [address] [place] [address] documented as of this encounter Procedures Procedure Name Priority Date/Time Associated Diagnosis Comments CULTURE, AEROBIC Routine 06/04/2024 11:1 0 AM CDT Paronychia of finger, left documented in this encounter Results * CULTURE, AEROBIC (06/04/2024 11:10 AM CDT) CULTURE RESULTS STAPHYLOCOCCUS HOMINIS 06/05/2024 4:49 PM CDT [facility] Comment:NO FURTHER WORKUP PE RFORMED CULTURE RESULTS STAPHYLOCOCCUS EPIDERMIDIS 06/05/2024 4:49 PM CDT [facility] Comment:NO FURTHER WORKUP PE RFORMED Culture SPECIMEN COLLECTION BY DRAINAGE / Unknown Non-Phlebotomy Collection / Unknown 06/04/2024 11:10 AM CDT 06/04/2024 11:10 AM CDT Maggie Tolentino PAC MICROBIOLOGY - GENERAL O RDERABLES Final Result [facility] [address] [place] [address], documented in this encounter Visit Diagnoses Diagnosis Primary hypertension- Primary Unspecified essential hypertension Paronychia of finger, left Chronic sinusitis, unspecified location documented in this encounter Additional Health Concerns Infection Onset Date Last Indicated Resolved Time MRSA 03/30/2020 03/30/2020 Assessment Noted Time PHQ-9 Depression Total Score: 0 01/04/20 23 2:56 PM CDT documented as of this encounter Care Teams Core Dipper Relationship Specialty Start Date End Date Dakota Fabian, THOM, SMALL PRODUCTS I ASSEMBLER [address] [address] PCP - General Advanced Practice Nurse 04/27/24 documented as of this encounter
--- OUTSIDE RECORDS SUMMARY | 2024-10-20 03:50 | XMS_ITS | Encounter Summary ---
Author Organization [facility] Address [address] [place] [address] Phone Care Team Providers Care Radiation Monitor Name Role Phone Dakota Fabian APRN, MAIL INSERTER Primary Care Pr ovider Reason for Visit * Reason Onset Date Comments Skin Problem 06/04/2024 Encounter Details Date Type Department Care Team (Late st Contact Info) Description 06/04/2024 Nurse Triage [facility] [address] [place] [address] Dakota Fabian APRN, MAIL INSERTER [address] [address] Skin Problem Social History Tobacco Use Types Packs/Day Years Used Date Smoking Tobacco: Never Smokeless Tobacco: Never Alcohol Use Standard Drinks/Week Comments No 0 (1 standard drink = 0.6 oz pur e alcohol) [facility] Utilities Answer Date Recorded In the past 12 months has [employer] electric, gas, oil, or water company threatened [...] often do you attend chur ch or jewish services? More than 4 times per year 03/16/2024 Do you belong to any clubs o r organizations such as orthodox groups, unions, fraternal or athletic groups, [...] Total Score - Questions 1-9 0 12/12 [facility] Occupat ional [facility] - Occupational Stress Questionnaire Answer Date [...] place to sleep or slept in a assisted (including now)? 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 Treatment / Response: warm water compresses and Neosporin Hysterectomy RECOMMENDATION: Caller agreeable to disposition: see in office today. Care advice provided per triage guideline. Caller verbalized understanding. Patient unable to get an appointment with PCP or care team within disposition. Scheduled with alternate provider in the office. All Patient Appointments Provider Department Dept Phone 06/04/2024 9:00 AM [facility] [phone] Melinda verbalizes understanding of her appointment details. Discussed utilizing Sun Number to: Melinda states she does not use Sun Number. Offered to reset password but she declines at this time. - See care advice and disposition for Guideline. First positive answer recorded, all responses to prior questions were negative. If symptoms increase, change or if new symptoms develop, call your health care provider or call back. Recommendations were based on caller information and is not a diagnosis. Verified and reviewed all triage information with caller. Reason for Disposition Looks infected (e.g., spreading redness, red streak, pus) Protocols used: Finger Pain-A-OH documented in this encounter Plan of Treatment Upcoming Encounters Date Type Department Care Team (Late st Contact Info) Description 11/02/2024 8:15 AM WEB CONTENT DEVELOPER Office Visit [facility] [address] [place] [address] Dakota Fabian APRN, MAIL INSERTER [address] [address] 11/26/2024 11:30 AM WEB CONTENT DEVELOPER Office Visit [facility] [address] [place] [address] Maggie Tolentino, PAC [address] [place] [address] documented as of this encounter Visit Diagnoses Not on filedocumented in this encounter Additional Health Concerns Infection Onset Date Last Indicated Resolved Time MRSA 03/30/2020 03/30/2020 Assessment Noted Time PHQ-9 Depression Total Score: 0 01/04/20 23 2:56 PM CDT documented as of this encounter Care Teams Radiation Monitor Relationship Specialty Start Date End Date Dakota Fabian APRN, MAIL INSERTER [address] [address] PCP - General Advanced Practice Nurse 04/27/24 documented as of this encounter
--- OUTSIDE RECORDS SUMMARY | 2024-10-20 03:50 | XMS_ITS | Encounter Summary ---
Author Organization [facility] Address [address] [place] [address] Phone Care Team Providers Care Supervisor Beehive Kiln Name Role Phone Dakota Fabian APRN, CNP Primary Care Pr ovider Reason for Visit * Reason Comments Medication Refill Encounter Details Date Type Department Care Team (Late st Contact Info) Description 05/12/2024 Refill [facility] - Family Medicine [facility] [address] [place] [phone] Dakota Fabian APRN, MIGUEL ANGEL [address] [address] Medication Refill Social History Tobacco Use Types Packs/Day Years Used Date Smoking Tobacco: Never Smokeless Tobacco: Never Alcohol Use Standard Drinks/Week Comments No 0 (1 standard drink = 0.6 oz pur e alcohol) [facility] Utilities Answer Date Recorded In the past 12 months has [employer] electric, gas, oil, or water company threatened [...] often do you attend chur ch or catholic services? More than 4 times per year 03/16/2024 Do you belong to any clubs o r organizations such as judaism groups, unions, fraternal or athletic groups, or [...] Total Score - Questions 1-9 0 12/12 [facility] Occupat ional [facility] - Occupational Stress Questionnaire Answer Date Recorded [...] place to sleep or slept in a alf (including now)? 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 Requested Prescriptions Pending Prescriptions Disp Refills ondansetron (ZOFRAN-ODT) 4 MG TABLET DISPERSIBLE [Pharmacy Med Name: ONDANSETRON ODT 4 MG TABLET] 15 Tablet 0 Sig: TAKE 1 TABLET BY MOUTH EVERY 8 HOURS NEEDED FOR NAUSEA FIRST LINE Not Delegated - 5-HT3 Antagonists Protocol Failed - 05/12/2024 8:44 AM Failed - This refill cannot be [...] st Contact Info) Description 11/02/2024 8:15 AM INSIGHTS STRATEGIST Office Visit [facility] [address] [place] [address] Dakota Fabian APRN, TECHNICAL ACCOUNT EXECUTIVE #[address] [address] 11/26/2024 11:30 AM INSIGHTS STRATEGIST Office Visit [facility] [address] [place] [address] Maggie Tolentino, PAC [address] [place] [address] documented as of this encounter Visit Diagnoses Diagnosis Acute UTI Urinary tract infection, site not specified documented in this encounter Additional Health Concerns Infection Onset Date Last Indicated Resolved Time MRSA 03/30/2020 03/30/2020 Assessment Noted Time PHQ-9 Depression Total Score: 0 01/04/20 23 2:56 PM CDT documented as of this encounter Care Teams Supervisor Beehive Kiln Relationship Specialty Start Date End Date Dakota Fabian APRN, MIGUEL ANGEL [address] [address] PCP - General Advanced Practice Nurse 04/27/24 documented as of this encounter
--- OUTSIDE RECORDS SUMMARY | 2024-10-20 03:50 | XMS_ITS | Encounter Summary ---
Author Organization [facility] Address [address] [place] [address] Phone Care Team Providers Care Clinical Safety Specialist Name Role Phone Dakota Fabian APRN, TITLE VEHICLE SERVICE ATTENDANT Primary Care Pr ovider Encounter Details Date Type Department Care Team (Late st Contact Info) Description 05/18/2024 Telephone [facility] [address] [place] [address] Davion Frank PAC [address] [address] Social History Tobacco Use Types Packs/Day Years Used Date Smoking Tobacco: Never Smokeless Tobacco: Never Alcohol Use Standard Drinks/Week Comments No 0 (1 standard drink = 0.6 oz pur e alcohol) [facility] Utilities Answer Date Recorded In the past 12 months has e electric, gas, oil, or water company threatened [...] week 03/16/2024 How often do you attend [facility] or anglican services? 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 Not on file documented as of this encounter Miscellaneous Notes * Telephone Encounter - Randi Vora - 05/18/2024 7:26 AM CDT Patient being referred by [facility], please review note and xrays and let me know if patient can be scheduled documented in this encounter Plan of Treatment Upcoming Encounters Date Type Department Care Team (Late st Contact Info) Description 11/02/2024 8:15 AM IRON WORKER APPRENTICE Office Visit [facility] [address] [place] [address] Dakota Fabian, THOM, TITLE VEHICLE SERVICE ATTENDANT #[address] [address] 11/26/2024 11:30 AM IRON WORKER APPRENTICE Office Visit [facility] [address] [place] [address] Maggie Tolentino, PAC [address] [place] [address] documented as of this encounter Visit Diagnoses Not on filedocumented in this encounter Additional Health Concerns Infection Onset Date Last Indicated Resolved Time MRSA 03/30/2020 03/30/2020 Assessment Noted Time PHQ-9 Depression Total Score: 0 01/04/20 23 2:56 PM CDT documented as of this encounter Care Teams Clinical Safety Specialist Relationship Specialty Start Date End Date Dakota Fabian APRN, TITLE VEHICLE SERVICE ATTENDANT [address] [facility] [address] [address] PCP - General Advanced Practice Nurse 04/27/24 documented as of this encounter
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
--- OUTSIDE RECORDS SUMMARY | 2024-10-20 03:50 | XMS_ITS | Encounter Summary ---
Author Organization [facility] Address [address] [place] [address] Phone Care Team Providers Care Manager Aerospace Name Role Phone Dakota Fabian APRN, CNP Primary Care Pr ovider Reason for Visit * Reason Onset Date Comments Cough 08/17/2024 Encounter Details Date Type Department Care Team (Late st Contact Info) Description 08/17/2024 Telephone [facility] [address] [place] [address] Dakota Fabian APRN, TOLL GATE KEEPER [address] [address] Cough Social History Tobacco Use Types Packs/Day Years Used Date Smoking Tobacco: Never Smokeless Tobacco: Never Alcohol Use Standard Drinks/Week Comments No 0 (1 standard drink = 0.6 oz pur e alcohol) [facility] Utilities Answer Date Recorded In the past 12 months has [employer], gas, oil, or water company threatened [...] often do you attend chur ch or baptist services? More than 4 times per year 03/16/2024 Do you belong to any clubs o r organizations such as sikh groups, unions, fraternal or athletic groups, or [...] Total Score - Questions 1-9 0 12/12 [facility] of Occupat ional Health - Occupational [...] medical appointments or from getting medications? No 06/0 01/2024 In the past 12 months, has [...] place to sleep or slept in a usp (including now)? 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 Encourage increased hydration and follow up with OV for any new, worsening, persistent symptoms Patient states she can't take Tessalon perles it gives her anxiety, said previous Provider had sentin Cough medicine with codeine. Nurse told patient many insurances are not covering prescription cough medications. Patient oh ok. ER PATCHER * Telephone Encounter - Mireya Persaud APRN, TOLL GATE KEEPER - 08/17/2024 1:33 PM VENEER PATCHER Order placed for benzonatate for cough symptoms. Encourage increased hydration and follow up with OV for any new, worsening, persistent symptoms ER PATCHER * Telephone Encounter - Araceli Radford RN - 08/17/2024 7:35 AM CST S: Cough B:Patient calling and states she went to [facility] walk in clinic in [place] and diagnosed with Strep throat on 08/14/24. Started taking z-pack, sore throat improving. Cough continues. Patient would like to know if something can be called in for cough. A: Denies new/worsening cough. Sleeping with head elevated and humidifier, taking z-pack, Singulair, and Claritin. Cough frequent, keeping up at night. Denies shortness of breath, difficulty breathing, chest pain. R: Please advise. ER PATCHER documented in this encounter Plan of Treatment Upcoming Encounters Date Type Department Care Team (Late st Contact Info) Description 11/02/2024 8:15 AM VENEER PATCHER Office Visit [facility] [address] [place] [address] Dakota Fabian APRN, TOLL GATE KEEPER #[address] [address] 11/26/2024 11:30 AM VENEER PATCHER Office Visit [facility] [address] [place] [address] Maggie Tolentino, [place]TON [address] [place] [address] documented as of this encounter Visit Diagnoses Not on filedocumented in this encounter Additional Health Concerns Infection Onset Date Last Indicated Resolved Time MRSA 03/30/2020 03/30/2020 Assessment Noted Time PHQ-9 Depression Total Score: 0 01/04/20 23 2:56 PM CDT documented as of this encounter Care Teams Manager Aerospace Relationship Specialty Start Date End Date Dakota Fabian APRN, TOLL GATE KEEPER [address] [address] PCP - General Advanced Practice Nurse 04/27/24 documented as of this encounter
--- OUTSIDE RECORDS SUMMARY | 2024-10-20 03:50 | XMS_ITS | Encounter Summary ---
Author Organization [facility] Address [address] [place] [address] Phone Care Team Providers Care Diesel Mechanic Farm Name Role Phone Dakota Fabian APRN, CNP Primary Care Pr ovider Reason for Visit * Reason Comments Medication Refill Encounter Details Date Type Department Care Team (Late st Contact Info) Description 08/29/2024 Refill [facility] - Family Medicine [facility] [address] [place] [id number] Maggie Tolentino, [facility] [address] [place] [address] Medication Refill Social History Tobacco Use Types Packs/Day Years Used Date Smoking Tobacco: Never Smokeless Tobacco: Never Alcohol Use Standard Drinks/Week Comments No 0 (1 standard drink = 0.6 oz pur e alcohol) [facility] Utilities Answer Date Recorded In the past 12 months has [employer], gas, oil, or water company threatened [...] often do you attend chur ch or druze services? More than 4 times per year 03/16/2024 Do you belong to any clubs o r organizations such as bahai groups, unions, fraternal or athletic groups, or [...] Score - Questions 1-9 0 12/12 [facility] of Occupat ional Health - Occupational [...] place to sleep or slept in a [facility] (including now)? 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 Requested Prescriptions Pending Prescriptions Disp Refills montelukast (SINGULAIR) 10 MG Tablet [Pharmacy Med Name: Montelukast Sodium 10 MG Oral Tablet] 90 Tablet 0 Sig: Take 1 tablet by mouth once daily Leukotriene Inhibitors Protocol Passed - 08/29/2024 11:18 AM Passed - Visit with relevant provider in past 12 months or upcoming 90 days Recent Visits Date Type Provider Dept 06/04/24 Office Visit Maggie Tolentino PAC [facility] 04/27/24 Office Visit Dakota Fabian APRN, CNP [facility] 03/16/24 Office Visit Dakota Fabain APRN, MIGUEL ANGEL [facility] [place] Showing recent visits within past 365 days and meeting all other requirements Future Appointments Date Type Provider Dept 09/06/24 Appointment Maggie Tolentino PAC [facility] 11/02/24 Appointment Dakota Fabian APRN, MIGUEL ANGEL [facility] Showing future appointments within next 90 days and meeting all other requirements ON MOLDING MACHINE OPERATOR documented in this encounter Plan of Treatment Upcoming Encounters Date Type Department Care Team (Late st Contact Info) Description 11/02/2024 8:15 AM CRAYON MOLDING MACHINE OPERATOR Office Visit [facility] [address] [place] [address] Dakota Fabian APRN, MIGUEL ANGEL [address] [address] 11/26/2024 11:30 AM CRAYON MOLDING MACHINE OPERATOR Office [facility] [address] [place] [address] Maggie Tolentino PAC [address] [place] [address] documented as of this encounter Visit Diagnoses Diagnosis Chronic sinusitis, unspecified location documented in this encounter Additional Health Concerns Infection Onset Date Last Indicated Resolved Time MRSA 03/30/2020 03/30/2020 Assessment Noted Time PHQ-9 Depression Total Score: 0 01/04/20 23 2:56 PM CDT documented as of this encounter Care Teams Diesel Mechanic Farm Relationship Specialty Start Date End Date Dakota Fabian APRN, MIGUEL ANGEL [address] [place] [address] PCP - General Advanced Practice Nurse 04/27/24 documented as of this encounter
--- OUTSIDE RECORDS SUMMARY | 2024-10-20 03:50 | XMS_ITS | Encounter Summary ---
Author Organization [facility] Address [address] [place] [address] Phone Care Team Providers Care Engineer Assistant Name Role Phone Dakota Fabian APRN, CNP Primary Care Pr ovider Reason for Visit * Reason Comments Medication Refill Encounter Details Date Type Department Care Team (Late st Contact Info) Description 08/14/2024 Refill [facility] Medical Group - Family Medicine [facility] [address] [place] [phone] Dakota Fabian APRN, MIGUEL ANGEL [address] [address] Medication Refill Social History Tobacco Use Types Packs/Day Years Used Date Smoking Tobacco: Never Smokeless Tobacco: Never Alcohol Use Standard Drinks/Week Comments No 0 (1 standard drink = 0.6 oz pur e alcohol) [facility] Utilities Answer Date Recorded In the past 12 months has [employer] electric, gas, oil, or water company threatened [...] often do you attend chur ch or samaritan services? More than 4 times per year 03/16/2024 Do you belong to any clubs o r organizations such as yazidism groups, unions, fraternal or athletic groups, or [...] Total Score - Questions 1-9 0 12/12 [facility] of Occupat ional [facility] - Occupational Stress Questionnaire Answer Date [...] place to sleep or slept in a chcf (including now)? 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 Requested Prescriptions Pending Prescriptions Disp Refills tiZANidine (ZANAFLEX) 4 MG Tablet [Pharmacy Med Name: TIZANIDINE HCL 4 MG TABLET] 30 Tablet 2 Sig: Take 1 Tablet by mouth nightly as needed for Muscle spasms. Not Delegated - Muscle Relaxants Protocol Failed - 08/14/2024 11:25 AM Failed - This refill cannot be delegated Passed - Visit with relevant provider in past 12 months or upcoming 90 days Recent Visits Date Type Provider Dept 06/04/24 Office Visit Maggie Tolentino, MIL[place] [facility] 04/27/24 Office Visit Dakota Fabian APRN, MIGUEL ANGEL [facility] 03/16/24 Office Visit Dakota Fabian APRN, MIGUEL ANGEL [facility] [place] Showing recent visits within past 365 days and meeting all other requirements Future Appointments Date Type Provider Dept 09/06/24 Appointment Maggie Tolentino PAC [facility] 11/02/24 Appointment Dakota Fabian APRN, CNP [facility] Showing future appointments within next 90 days and meeting all other requirements Passed - ALT less than 90 and AST less than 55 on record in past 12 months SGOT (AST) Date Value Ref Range Status 07/20/2024 19 5 - 34 U/L Final SGPT (ALT) Date Value Ref Range Status 07/20/2024 22 0 - 55 U/L Final documented in this encounter Plan of Treatment Upcoming Encounters Date Type Department Care Team (Late st Contact Info) Description 11/02/2024 8:15 AM ACCOUNTS RECEIVABLE ASSOCIATE Office Visit [facility] [address] [facility] [address] Dakota Fabian APRN, MIGUEL ANGEL [address] [place] [address] 11/26/2024 11:30 AM ACCOUNTS RECEIVABLE ASSOCIATE Office Visit [facility] [address] [facility] [address] Maggie Tolentino, PAC [address] [place] [address] documented as of this encounter Visit Diagnoses Diagnosis Degenerative lumbar disc Degeneration of lumbar or lumbosacral intervertebral disc documented in this encounter Additional Health Concerns Infection Onset Date Last Indicated Resolved Time 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
--- OUTSIDE RECORDS SUMMARY | 2024-10-20 03:50 | XMS_ITS | Encounter Summary ---
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 COMPARISON: 03/22/2022 FINDINGS: LOWER CHEST: Visualized lung bases are clear. LIVER: The liver is normal in size. No definite liver lesion is seen. GALLBLADDER: Partially distended. No wall thickening, stranding or pericholecystic fluid to suggest acute cholecystitis. BILE DUCTS: No gross biliary ductal dilatation SPLEEN: Spleen is normal in size with calcified granulomas PANCREAS: The pancreas is normal in size. Mild fatty replacement. No significant peripancreatic stranding or main ductal dilatation. ADRENALS: Normal. KIDNEYS/URINARY TRACT: The kidneys are normal in size. Symmetric in enhancement. No hydronephrosis or significant perinephric stranding. Urinary bladder is distended. No substantial wall thickening or stranding. GI: Stool throughout the colon which appears nondilated. Areas of submucosal fat deposition is noted within the right colon, a chronic finding. No pericolonic stranding is seen to suggest acute colitis. The appendix is nondilated without evidence of acute appendicitis. The small bowel appears nondilated without wall thickening or evidence of a small-bowel obstruction. The stomach is partially distended. PERITONEUM: No free air. No ascites is seen. No mesenteric lymphadenopathy is seen. RETROPERITONEUM: No retroperitoneal or inguinal lymphadenopathy. REPRODUCTIVE: Uterus is absent. VASCULATURE: The portal vein is patent. The aorta is normal in caliber. MUSCULOSKELETAL: No suspicious lytic or sclerotic lesion. No acute fracture seen. OTHER: No other abnormality. THIS IS AN ELECTRONICALLY VERIFIED FINAL REPORT 07/20/2024 12:52 PM - Electronically signed by Jaret Lares M.D. AG: MAURI Report ID: [id number] Reading Location: [id number] IMPRESSION: 1. No gross CT finding to explain the patient's symptoms. Dalton Chapa MD IMG CT ORDERABLES Serene l Result * Gold Top Tube (07/20/2024 9:42 AM CDT) Blood No Phlebotomy Charged / Unknown 07/20/2024 9:42 AM CDT 07/20/2024 9:50 AM CDT Dalton Chapa MD CHEMISTRY ORDERABLES F inal Result Performing Organization Address City/State/[facility] Co de Phone Number [facility] [address] [place] [address] * Blue Top Tube (07/20/2024 9:42 AM CDT) Blood No Phlebotomy Charged / Unknown 07/20/2024 9:42 AM CDT 07/20/2024 9:50 AM CDT Dalton Chapa MD HEMATOLOGY ORDERABLES Final Result Performing Organization Address City/State/[facility] Co de Phone Number [facility] [address] [place] [address] * CBC with Auto Differential (07/20/2024 9:42 AM CDT) WBC 6.66 4.00 - 12.00 10(3)/mcL 07/20/2024 9:59 AM CDT [facility] RBC 4.68 3.80 - 5.30 10(6)/mcL 07/20/2024 9:59 AM CDT [facility] HEMOGLOBIN (HGB) 13.7 12.0 - 15.8 g/dL 07/20/2024 9:59 AM CDT [facility] HEMATOCRIT (HCT) 42 36 - 47 % 07/20/20 24 9:59 AM CDT [facility] MCV 89.5 82.0 - 96.0 fL 07/20/2024 9:59 AM CDT [facility] MCH 29.3 26.0 - 34.0 pg 07/20/2024 9:59 AM CDT [facility] MCHC 32.7 31.0 - 36.0 g/dL 07/20/2024 9:59 AM CDT [facility] PLATELET COUNT 391 140 - 440 10(3)/mcL 07/20/2024 9:59 AM CDT [facility] RDW 14.3 11.8 - 15.5 % 07/20/2024 9:59 AM CDT [facility] MPV 10.0 9.7 - 12.4 fL 07/20/2024 9:59 AM CDT [facility] NEUTROPHILS 68.4 47.0 - 73.0 % 07/20/2024 9:59 AM CDT [facility] LYMPHOCYTES 22.7 18.0 - 42.0 % 07/20/2024 9:59 AM CDT [facility] MONOCYTES 5.4 4.0 - 12.0 % 07/20/2024 9:59 AM CDT [facility] EOSINOPHILS 2.3 0.0 - 5.0 % 07/20/2024 9:59 AM CDT [facility] BASOPHILS 0.9 0.0 - 1.0 % 07/20/2024 9:59 AM CDT [facility] ABSOLUTE NEUTROPHILS 4.56 1.60 - 7.70 10(3)/mcL 07/20/2024 9:59 AM CDT [facility] ABSOLUTE LYMPHOCYTES 1.51 1.30 - 3.20 10(3)/mcL 07/20/2024 9:59 AM CDT [facility] ABSOLUTE MONOCYTES 0.36 0.20 - 1.00 10(3)/[facility] 07/20/2024 9:59 AM CDT [facility] ABSOLUTE EOSINOPHIL 0.15 0.00 - 0.40 10(3)/mcL 07/20/2024 9:59 AM CDT [facility] ABSOLUTE BASOPHILS 0.06 0.00 - 0.10 10(3)/[facility] 07/20/2024 9:59 AM CDT [facility] Blood Venipuncture / Unknown 07/20/2024 9:42 AM CDT 07/20/2024 9:48 AM CDT us Dalton Chapa MD HEMATOLOGY ORDERABLES Final Result [facility] [address] [place] [address] * (ABNORMAL) CMP (07/20/2024 9:42 AM CDT) SODIUM 142 136 - 145 mmol/L 07/20/2024 10:35 AM CDT [facility] POTASSIUM 4.1 3.5 - 5.1 mmol/L 07/20/2024 10:35 AM CDT [facility] CHLORIDE 105 98 - 107 mmol/L 07/20/2024 10:35 AM CDT [facility] CO2, VENOUS 28 22 - 30 mmol/L 07/20/2024 10:35 AM CDT [facility] ANION GAP 13.1 <18.0 mmol/L 07/20/2024 10:35 AM CDT [facility] GLUCOSE 94 70 - 99 mg/dL 07/20/2024 10:35 AM CDT [facility] BUN 6 5 - 18 mg/dL 07/20/2024 10:35 AM CDT [facility] CREATININE, BLOOD 0.68 0.60 - 1.00 mg/dL 07/20/2024 10:35 AM CDT [facility] BUN/CREATININE RATIO 9(L) 12 - 20 ratio 07/20/2024 10:35 AM CDT [facility] TOTAL PROTEIN 7.2 6.3 - 8.2 g/dL 07/20/2024 10:35 AM CDT [facility] ALBUMIN 4.1 3.5 - 5.0 g/dL 07/20/2024 10:35 AM CDT [facility] A/G RATIO 1.3 1.0 - 2.2 07/20/2024 10:35 AM CDT [facility] CALCIUM 8.8 8.7 - 10.5 mg/dL 07/20/2024 10:35 AM CDT [facility] T BILI 0.5 0.2 - 1.2 mg/dL 07/20/2024 10:35 AM CDT [facility] SGOT (AST) 19 5 - 34 U/L 07/20/2024 10:35 AM CDT [facility] SGPT (ALT) 22 0 - 55 U/L 07/20/2024 10:35 AM CDT [facility] ALKALINE PHOSPHATASE 61 40 - 150 U/L 07/20/2024 10:35 AM CDT [facility] GFR, ESTIMATED >60 >=60 07/20/2024 10:35 AM T [facility] Comment: Creatinine Clearance is the preferred criteria for selecting drug dose adjustments in renally impaired patients. ??The GFR is provided as additional pertinent clinical information. GFR is reported in mL/min/1.73 sq m. Calculation based on the Chronic Kidney Disease Epidemiology Collaboration (CKD- EPI) equation refit without adjustment for race. GFR, EST. >60 >=60 024 10:35 AM CDT [facility] GFR, EST. NONAFRICAN >60 >=60 07/20/2024 10:35 AM CDT [facility] Blood Venipuncture / Unknown 07/20/2024 9:42 AM CDT 07/20/2024 9:48 AM CDT us Dalton Chapa MD CHEMISTRY ORDERABLES F inal Result [facility] [address] [place] [address] * (ABNORMAL) Urinalysis w/ Reflex (07/20/2024 9:01 AM CDT) SPECIFIC GRAVITY 1.015 1.003 - 1.030 07/20/2024 9:25 AM CDT [facility] URINE PH 8.0 5.0 - 9.0 07/20/2024 9:25 AM CDT [facility] WBC ESTERASE Negative Negative 07/20/2024 9:25 AM CDT [facility] NITRITE Negative Negative 07/20/2024 9:25 AM CDT [facility] PROTEIN, RANDOM URINE 15 mg/dL(A) Negative 07/20/2024 9:25 AM CDT [facility] URINE GLUCOSE, QUAL Negative Negative 07/20/2024 9:25 AM CDT [facility] URINE KETONES Negative Negative 07/20/2024 9:25 AM CDT [facility] UROBILINOGEN Normal Normal mg/dL 07/20/2024 9:25 AM CDT [facility] URINE BLOOD Negative Negative marjorie/ul 07/20/2024 9:25 AM CDT [facility] URINALYSIS COLOR Yellow 07/20/20 9:25 AM CDT [facility] URINALYSIS CLARITY Clear 07/20/2024 9:25 AM CDT [facility] Urine URINE SPECIMEN / Unknown Non-Phlebotomy Collection / Unknown 07/20/2024 9:01 AM CDT 07/20/2024 9:21 AM CDT us Dalton Chapa MD URINE ORDERABLES Final Result [facility] [address] [place] [address] documented in this encounter Visit Diagnoses Diagnosis Flank pain- Primary Abdominal pain, unspecified site Acute right-sided low back pain without sciatica documented in this encounter Administered Medications Inactive Administered Medications - up to 3 most recent administrations Medication Order MAR Action Action Date Dose Rate Site fentaNYL (PF) (SUBLIMAZE) injection 50 mcg 50 mcg, Intravenous, ONCE, 1 dose, On Fri07/20/24 at 1230 Given 07/20/2024 12:13 PM CDT 50 mcg FENTANYL CITRATE (PF) 100 MCG/2ML IJ SOLN 1 dose, Starting on Fri07/20/24 at 1210, Until Fri07/20/24 at 1554, Created by cabinet override iopamidol (ISOVUE-370) 76 % injection 100 mL 100 mL, Intravenous, ONCE, 1 dose, On Fri07/20/24 at 1130 Given 07/20/2024 12:01 PM CDT 100 mL ketorolac (TORADOL) injection 30 mg 30 mg, Intravenous, ONCE, 1 dose, On Fri07/20/24 at 0930 Given 07/20/2024 9:46 AM CDT 30 mg morphine sulfate (PF) injection 4 mg 4 mg, Intravenous, ONCE, 1 dose, On Fri07/20/24 at 1100 Given 07/20/2024 10:55 AM CDT 4 mg ondansetron (ZOFRAN) injection 4 mg 4 mg, Intravenous, ONCE, 1 dose, On Fri07/20/24 at 0930 Given 07/20/2024 9:46 AM CDT 4 mg sodium chloride 0.9 % 1,000 mL IV bolus Intravenous, ONCE, 1 dose, On Fri07/20/24 at 0930, Administer over 0.5 Hours New Bag 07/20/2024 9:46 AM CDT 2000 mL/hr documented in this encounter Active and Recently Administered Medications Times are shown in CDT. Scheduled Medication Order 07/18/2024 07/19/2024 07/20/2024 fentaNYL (PF) (SUBLIMAZE) injection 50 mcg (COMPLETED) 50 mcg, Intravenous, ONCE, 1 dose, On Fri07/20/24 at 1230 1213 (Given - Provid er: Sonal Wall RN)1217 (Due - Provider: Sonal Wall RN) iopamidol (ISOVUE-370) 76 % injection 100 mL (COMPLETED) 100 mL, Intravenous, ONCE, 1 dose, On Fri07/20/24 at 1130 1201 (Given - Provid er: Ragini Li, RT(R) (CT)) ketorolac (TORADOL) injection 30 mg (COMPLETED) 30 mg, Intravenous, ONCE, 1 dose, On e 07/20/24 at 0930 0946 (Given - Provid er: Sonal Wall RN) morphine sulfate (PF) injection 4 mg (COMPLETED) 4 mg, Intravenous, ONCE, 1 dose, On Fri07/20/24 at 1100 1055 (Given - Provid er: Sonal Wall RN) ondansetron (ZOFRAN) injection 4 mg (COMPLETED) 4 mg, Intravenous, ONCE, 1 dose, On Fri07/20/24 at 0930 0946 (Given - Provid er: Sonal Wall RN) sodium chloride 0.9 % 1,000 mL IV bolus (COMPLETED) Intravenous, ONCE, 1 dose, On Fri07/20/24 at 0930, Administer over 0.5 Hours 0946 (New Bag - Prov ider: Sonal Wall RN)1100 (Stopped - Provider: Sonal Wall RN) No Frequency Medication Order 07/18/2024 07/19/2024 07/20/2024 FENTANYL CITRATE (PF) 100 MCG/2ML IJ SOLN 1 dose, Starting on Fri07/20/24 at 1210, Until Fri07/20/24 at 1554, Created by cabinet override documented in this encounter Additional Health Concerns Infection Onset Date Last Indicated Resolved Time 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
--- OUTSIDE RECORDS SUMMARY | 2024-10-20 03:50 | XMS_ITS | Encounter Summary ---
Author Organization [facility] Address [address] [place] [address] Phone Care Team Providers Care Senior Research Engineer Name Role Phone Dakota Fabian APRN, CNP Primary Care Pr ovider Reason for Visit * Reason Comments Medication Refill Encounter Details Date Type Department Care Team (Late st Contact Info) Description 06/15/2024 Refill [facility] - [facility] [address] [place] [id number] Dakota Fabian APRN, [facility] [address] [address] Medication Refill Social History Tobacco Use Types Packs/Day Years Used Date Smoking Tobacco: Never Smokeless Tobacco: Never Alcohol Use Standard Drinks/Week Comments No 0 (1 standard drink = 0.6 oz pur e alcohol) [facility] Utilities Answer Date Recorded In the past 12 months has [employer] electric, gas, oil, or water company threatened [...] often do you attend chur ch or islam services? More than 4 times per year 03/16/2024 Do you belong to any clubs o r organizations such as buddhist groups, unions, fraternal or athletic groups, or [...] Total Score - Questions 1-9 0 12/12 [facility] - Occupational Stress Questionnaire Answer [...] place to sleep or slept in a halfway (including now)? 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 Requested Prescriptions Pending Prescriptions Disp Refills ondansetron (ZOFRAN-ODT) 4 MG TABLET DISPERSIBLE [Pharmacy Med Name: ONDANSETRON ODT 4 MG TABLET] 15 Tablet 0 Sig: TAKE 1 TABLET BY MOUTH EVERY 8 HOURS NEEDED FOR NAUSEA FIRST LINE Not Delegated - 5-HT3 Antagonists Protocol Failed - 06/15/2024 10:44 AM Failed - This refill cannot be delegated Passed - Visit with relevant provider in past 12 months or upcoming 90 days Recent Visits Date Type Provider Dept 06/04/24 Office Visit Maggie Tolentino, [facility] 04/27/24 Office Visit Dakota Fabian APRN, [facility] 03/16/24 Office Visit [facility] APR[facility] Showing recent visits within past 365 days and meeting all other requirements Future Appointments Date Type Provider Dept 09/06/24 Appointment Maggie Tolentino, [facility] Showing future appointments within next 90 days and meeting all other requirements documented in this encounter Plan of Treatment Upcoming Encounters Date Type Department Care Team (Late st Contact Info) Description 11/02/2024 8:15 AM DIRECTOR AGENCY & STRATEGIC PARTNERSHIPS [place] [facility] [place] [address] Dakota Fabian APRN, [employer] [address] [address] 11/26/2024 11:30 AM DIRECTOR AGENCY & STRATEGIC PARTNERSHIPS [place] [facility] [place] [facility] [place] [address] Maggie Tolentino, PAC [address] [facility] [place] [address] documented as of this encounter Visit Diagnoses Diagnosis Acute UTI Urinary tract infection, site not specified documented in this encounter Additional Health Concerns Infection Onset Date Last Indicated Resolved Time 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
--- OUTSIDE RECORDS SUMMARY | 2024-10-20 03:50 | XMS_ITS | Encounter Summary ---
Author Organization [facility] Address [address] [place] [address] Phone Care Team Providers Care Animal Biologist Name Role Phone Dakota Fabian APRN, ORIENTAL RUG REPAIRER Primary Care Pr ovider Reason for Visit * Reason Comments Sore Throat Chills Encounter Details Date Type Department Care Team (Late st Contact Info) Description 09/11/2024 5:42 PM CERTIFIER - 09/11/2024 7:41 PM CERTIFIER Emergency [facility] Emergency [address] [place] [id number] Ashly Sullivan, TACKING STITCH REMOVER, ORIENTAL RUG REPAIRER [address] [place] [address] Viral illness Discharge Disposition: Discharged to home or Selfcare Social History Tobacco Use Types Packs/Day Years Used Date Smoking Tobacco: Never Smokeless Tobacco: Never Alcohol Use Standard Drinks/Week Comments No 0 (1 standard drink = 0.6 oz pur e alcohol) [facility] Utilities Answer Date Recorded In the past 12 months has [employer], gas, oil, or water [employer] threatened to shut off services in your [...] 03/16/2024 How often do you attend chur or rastafari services? More than 4 times per year 03/16/2024 Do you belong to any clubs o r organizations such as advent groups, unions, fraternal or athletic groups, or [...] Total Score - Questions 1-9 0 12/12 [facility] of Occupat ional Health - Occupational Stress [...] place to sleep or slept in a group home (including now)? 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 Not on file Not on file documented as of this encounter Last Filed Vital Signs Vital Sign Reading Time Taken Comments Blood Pressure 139/93 09/11/2024 5:50 PM CERTIFIER Pulse 96 09/11/2024 7:30 PM CERTIFIER Temperature 36.1 ??C (96.9 ??F) 09/11/2024 5:50 PM CS T Respiratory Rate 17 09/11/2024 5:50 PM CERTIFIER Oxygen Saturation 97% 09/11/2024 7:30 PM CERTIFIER Inhaled Oxygen Concentration - - Weight 90.7 kg (200 lb) 09/11/2024 5:50 PM CERTIFIER Height 157.5 cm (5' 2 ) 09/11/2024 5:50 PM CERTIFIER Body Mass Index 36.58 09/11/2024 5:50 PM CERTIFIER documented in this encounter Discharge Instructions * Discharge Instructions* Ashly Sullivan, TACKING STITCH REMOVER, ORIENTAL RUG REPAIRER - 09/11/2024 7:36 PM CERTIFIER Rest and push fluids. Can take over the counter medications as directed for symptom relief. Return to ED with difficulty breathing or shortness of breath. Please follow-up with primary care physician. IFIER documented in this encounter Medications at Time [...] by mouth daily. 90 Tablet 3 06/04/2024 montelukast (SINGULAIR) 10 MG TabletIndications: Chronic sinusitis, unspecified location Take 1 tablet by mouth once daily 90 Tablet 08/29/2024 Multiple Vitamin (MULTI-VITAMIN PO) Take by mouth. Takes all in one now ondansetron (ZOFRAN-ODT) 4 MG TABLET DISPERSIBLEIndicat ions:Acute UTI TAKE 1 TABLET BY MOUTH EVERY 8 HOURS NEEDED FOR NAUSEA FIRST LINE 15 Tablet 5 06/15/2024 tiZANidine (ZANAFLEX) 4 MG TabletIndications: Degenerative lumbar disc TAKE 1 TABLET BY MOUTH NIGHTLY NEEDED FOR MUSCLE SPASMS. 30 Tablet 2 08/16/2024 documented as of this encounter ED Notes * Kathya Bonilla RN - 09/11/2024 7:40 PM CST Patient discharged. Discharge instructions and patient educational material reviewed with patient; questions and concerns addressed; patient verbalizes understanding, using teach back. Patient was given 0 prescriptions. Patient discharged per ambulatory mode with self as responsible constitution party. IFIER * Kathya Bonilla RN - 09/11/2024 7:29 PM CST Pt resting on stretcher with no needs indicated at this time. Call light in reach. IFIER * Kathya Bonilla RN - 09/11/2024 6:35 PM CST Report received from MITESH Adler IFIER * Ashly Sullivan, TACKING STITCH REMOVER, ORIENTAL RUG REPAIRER - 09/11/2024 5:58 PM CST Chief Complaint Patient presents with Sore Throat Chills Melinda Olmedo is a 49 y.o. female who presents to the ED with multiple complaints. Patient states that she has had a frequent nonproductive cough for the past week and a half. She also endorses nasal congestion and drainage. States that she has had a sore throat and generalized body aches for the past 4 days. She is unsure fevers but reports chills. Patient states that 1 of her kids tested positive for flu A in the other kid tested positive for strep. She denies chest pain or shortness of breath. Past Medical History Positives No date: Anxiety 12/2015: Broken arm Comment: lower left 2017: Broken leg Comment: Right leg No date: Chronic sinusitis No date: Degenerative lumbar disc No date: Depression No date: High cholesterol No date: Hypertension No current facility-administered medications for this encounter. Current Outpatient Medications Medication Sig Dispense Refill amLODIPine (NORVASC) 10 MG Tablet TAKE 1 TABLET BY MOUTH EVERY DAY (Patient taking differently: every morning.) 90 Tablet 2 cetirizine (ZyrTEC) 10 MG Tablet Take 1 Tablet by mouth daily. 90 Tablet 1 FLUoxetine (PROzac) 20 MG Capsule Take 20 mg by mouth daily. losartan (COZAAR) 50 MG Tablet Take 1 Tablet by mouth daily. 90 Tablet 3 montelukast (SINGULAIR) 10 MG Tablet Take 1 tablet by mouth once daily 90 Tablet 0 Multiple Vitamin (MULTI-VITAMIN PO) Take by mouth. Takes all in one now ondansetron (ZOFRAN-ODT) 4 MG TABLET DISPERSIBLE TAKE 1 TABLET BY MOUTH EVERY 8 HOURS NEEDED FORNAUSEA FIRST LINE 15 Tablet 5 tiZANidine (ZANAFLEX) 4 MG Tablet TAKE 1 TABLET BY MOUTH NIGHTLY NEEDED FOR MUSCLE SPASMS. 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./ [employer] Tobacco Use Smoking status: Never Smokeless tobacco: [...] 60 min Stress: Stress Concern Present (03/16/2024) [facility] [place] of Occupational Health - Occupational Stress Questionnaire Feeling of Stress : Very much Social Integration: Moderately Integrated (03/16/2024) Social Connection and Isolation Panel [NHANES] Frequency of Communication with Friends and Family: More than three times a week Frequency of Social Gatherings with Friends and Family: Twice a week Attends Rastafarian Services: More than 4 times per year [...] Housing in the Last Year: No BP (!) 139/93 Pulse 96 Temp 96.9 ??F (36.1 ??C) (Tympanic) Resp 17 Ht 5' 2 (1.575 m) Wt 200 lb (90.7 kg) LMP (LMP Unknown) Comment: full SpO2 97% BMI 36.58 kg/m?? Review of Systems Constitutional: Positive for chills. Negative for fever. HENT: Positive for congestion, rhinorrhea and sore throat. Negative for ear pain. Eyes: Negative for discharge. Respiratory: Positive for cough. Negative for chest tightness, shortness of breath and wheezing. Cardiovascular: Negative for chest pain and palpitations. Gastrointestinal: Negative for abdominal pain, diarrhea, nausea and vomiting. Genitourinary: Negative for difficulty urinating and menstrual problem. Musculoskeletal: Positive for myalgias. Negative for arthralgias. Skin: Negative for rash and wound. Neurological: Negative for dizziness, syncope and headaches. All other systems reviewed and are negative. Physical Exam Vitals and nursing note reviewed. Constitutional: General: She is not in acute distress. Appearance: She is well-developed. She is not diaphoretic. HENT: Head: Normocephalic and atraumatic. Right Ear: External ear normal. Left Ear: External ear normal. Nose: Congestion present. Eyes: Conjunctiva/sclera: Conjunctivae normal. Pupils: Pupils are equal, round, and reactive to light. Neck: Trachea: No tracheal deviation. Cardiovascular: Rate and Rhythm: Normal rate and regular rhythm. Heart sounds: Normal heart sounds. No murmur heard. Pulmonary: Effort: Pulmonary effort is normal. No respiratory distress. Breath sounds: Normal breath sounds. No wheezing or rales. Abdominal: General: Bowel sounds are normal. There is no distension. Palpations: Abdomen is soft. Tenderness: There is no abdominal tenderness. There is no guarding or rebound. Musculoskeletal: General: Normal range of motion. Cervical back: Normal range of motion. Skin: General: Skin is warm and dry. Capillary Refill: Capillary refill takes less than 2 seconds. Neurological: Mental Status: She is alert and oriented to person, place, and time. Cranial Nerves: No cranial nerve deficit. Procedures Recent Results (from the past 24 hour(s)) RSV,SARS-COV-2,INFLUENZA A&B BY PCR Collection Time: 09/11/24 6:15 PM Specimen: Nasopharyngeal; Swab Result Value Ref Range FLU A Negative Negative, Error FLU B Negative Negative RESP SYNC VIRUS Negative Negative SARSCOV2 NOT DETECTED (Reference Range for this test is Not Detected) GROUP A STREP BY PCR Collection Time: 09/11/24 6:15 PM Specimen: Throat; Swab Result Value Ref Range GROUP A STREP BY PCR NOT DETECTED NOT DETECTED Imaging Results XR CHEST 2 VIEWS (Final result) Result time 09/11/24 19:23:26 Final result by Nick Godinez MD (09/11/24 19:23:26) Impression: IMPRESSION: No acute cardiopulmonary abnormality. Narrative: EXAM DESCRIPTION: XR CHEST 2 VIEWS REASON FOR STUDY: pt c/o chills, runny nose, body aches and sore throat of four days ago. hx of HTN and Hysterectomy TECHNIQUE: Frontal and lateral radiographic view(s) of the chest. COMPARISON: None FINDINGS: LUNGS: No focal opacity, pleural effusion, or pneumothorax. HEART/MEDIASTINUM: Cardiac silhouette normal in size. Mediastinal and hilar contours appear normal. LINES/TUBES: None. BONES: No acute osseous abnormality. THIS IS AN ELECTRONICALLY VERIFIED FINAL REPORT 09/11/2024 7:20 PM - Electronically signed by Nick Godinez M.D. AM: AM Report ID: [id number] Reading Location: [place] [address] Labs Reviewed RSV,SARS-COV-2,INFLUENZA A&B BY PCR - Normal Narrative: This test has not been FDA cleared or approved; the test has been authorized by FDA under an Emergency Use Authorization (EUA) for use by laboratories certified under the CLIA that meet the requirements to perform moderate, high or waived complexity tests. Authorized Fact Sheets about this test for providers and patients are available at: https://www.fda. gov/medical-devices/fdlitydlv-izgiuavdng-yqteotl-devices/dgsddjslg-qbd-ntxevdzwl tiagustin GROUP A STREP BY PCR - Normal XR CHEST 2 VIEWS Final Result IMPRESSION: No acute cardiopulmonary abnormality. Medical Decision Making Amount and/or Complexity of Data Reviewed External Data Reviewed: labs and radiology. Labs: ordered. Radiology: ordered. Clinical Impression 1. Viral illness Disposition: Discharge COVID, flu, RSV, strep is negative. Chest x-ray is unremarkable Lungs clear to auscultation, no tachypnea, no distress. Patient has been advised if she becomes short of breath to immediately return to the ED. she displays understanding and is alert and oriented. Patient's symptoms and exam consistent with viral illness. The patient remained stable throughout their ED stay. My clinical impression was discussed with thepatient/family. Labs and radiology results were reviewed with them. I gave them the opportunity to ask questions, and addressed them as completely as possible given the information available at present. The therapeutic plan was discussed, advised to take medications as instructed, instructions weregiven and the importance of primary care follow up was stressed and encouraged. The patient/family voiced understanding of the plan, indications to return, and the need for follow up. Cosigned by Eliu Del Toro MD at 09/11/2024 10:37 PM CERTIFIER IFIER IFIER * Jeana Borden RN - 09/11/2024 5:52 PM CST Patient reports onset of chills, runny nose, body aches and sore throat of four days ago. Has had recent contact with someone with flu A and strep. Afebrile in triage. IFIER documented in this encounter Miscellaneous Notes * PatientPass Patient Instructions - Ashly Sullivan APRN, MIGUEL ANGEL - 09/11/2024 7:36 PM CST Images from the original note were not included. Patient Education Table of Contents Viral Illness, Adult To view videos and all your education online visit, [email or web address] or scan this QR code with your smartphone. Access to this content will in one year. Viral Illness, Adult Viruses are tiny germs that can get into a person's body and cause illness. There are many different types of viruses. And they cause many types of illness. Viral illnesses can range from mild to severe. They can affect various parts of the body. Short-term conditions that are caused by a virus include colds and flu (influenza) and stomach viruses. Long-term conditions that are caused by a virus include herpes, shingles, and human immunodeficiency virus (HIV) infection. A few viruses have been linked to certain cancers. What are the causes? Many types of viruses can cause illness. Viruses get into cells in your body, multiply, and cause the infected cells to work differently or . When these cells , they release more of the virus. When this happens, you get symptoms of the illness and the virus spreads to other cells. If the virus takes over how the cell works, it can cause the cell to divide and grow out of control. This happens when a virus causes cancer. Different viruses get into the body in different ways. You can get a virus by: Swallowing food or water that has come in contact with the virus. Breathing in droplets that have been coughed or sneezed into the air by an infected person. Touching a surface that has the virus on it and then touching your eyes, nose, or mouth. Being bitten by an insect or animal that carries the virus. Having sexual contact with a person who is infected with the virus. Being exposed to blood or fluids that contain the virus, either through an open cut or during a transfusion. If a virus enters your body, your body's disease-fighting system (immune system) will try to fight the virus. You may be at higher risk for a viral illness if your immune system is weak. What are the signs or symptoms? Symptoms depend on the type of virus and the location of the cells that it gets into. Symptoms can include: For cold and flu viruses: ? Fever. ? Headache. ? Sore throat. ? Muscle aches. ? Stuffy nose (nasal congestion). ? Cough. For stomach (gastrointestinal) viruses: ? Fever. ? Pain in the abdomen. ? Nausea or vomiting. ? Diarrhea. For liver viruses (hepatitis): ? Loss of appetite. ? Feeling tired. ? Skin or the white parts of your eyes turning yellow (jaundice). For brain and spinal cord viruses: ? Fever. ? Headache. ? Stiff neck. ? Nausea and vomiting. ? Confusion or being sleepy. For skin viruses: ? Warts. ? Itching. ? Rash. For sexually transmitted viruses: ? Discharge. ? Swelling. ? Redness. ? Rash. How is this diagnosed? This condition may be diagnosed based on one or more of these: Your symptoms and medical history. A physical exam. Tests, such as: ? Blood tests. ? Tests on a sample of mucus from your lungs (sputum sample). ? Tests on a poop (stool) sample. ? Tests on a swab of body fluids or a skin sore (lesion). How is this treated? Viruses can be hard to treat because they live within cells. Antibiotics do not treat viruses because these medicines do not get inside cells. Treatment for a viral illness may include: Resting and drinking a lot of fluids. Medicines to treat symptoms. These can include dhkk-zzp-xdjxpia medicine for pain and fever, medicines for cough or congestion, and medicines for diarrhea. Antiviral medicines. These medicines are available only for certain types of viruses. Some viral illnesses can be prevented with vaccinations. A common example is the flu shot. Follow these instructions at home: Medicines Take wztg-kvu-ilncwxe and prescription medicines only as told by your health care provider. If you were prescribed an antiviral medicine, take it as told by your provider. Do not stop taking the antiviral even if you start to feel better. Know when antibiotics are needed and when they are not needed. Antibiotics do not treat viruses. You may get an antibiotic if your provider thinks that you may have, or are at risk for, a bacterial infection and you have a viral infection. ? Do not ask for an antibiotic prescription if you have been diagnosed with a viral illness. Antibiotics will not make your illness go away faster. ? Taking antibiotics when they are not needed can lead to antibiotic resistance. When this develops, the medicine no longer works against the bacteria that it normally fights. General instructions Drink enough fluids to keep your pee (urine) pale yellow. Rest as much as possible. Return to your normal activities as told by your provider. Ask your provider what activities are safe for you. How is this prevented? To lower your risk of getting another viral illness: Wash your hands often with soap and water for at least 20 seconds. If soap and water are not available, use hand tubular products fabricator. Avoid touching your nose, eyes, and mouth, especially if you have not washed your hands recently. If anyone in your household has a viral infection, clean all household surfaces that may have been in contact with the virus. Use soap and hot water. You may also use a commercially prepared, bleach-containing solution. Stay away from people who are sick with symptoms of a viral infection. Do not share items such as toothbrushes and water bottles with other people. Keep your vaccinations up to date. This includes getting a yearly flu shot. Eat a healthy diet and get plenty of rest. Contact a health care provider if: You have symptoms of a viral illness that do not go away. Your symptoms come back after going away. Your symptoms get worse. Get help right away if: You have trouble breathing. You have a severe headache or a stiff neck. You have severe vomiting or pain in your abdomen. These symptoms may be an emergency. Get help right away. Call 911. Do not wait to see if the symptoms will go away. Do not drive yourself to the hospital. This information is not intended to replace advice given to you by your health care provider. Make sure you discuss any questions you have with your health care provider. Document Released: 2017-02-07 Document Updated: 2023-10-15 Document Reviewed: 2023-07-30 Social IQ (Social Influence Quotient) Patient Education ? 2023 [employer] (Social Influence Quotient[employer] IFIER documented in this encounter Plan of Treatment Upcoming Encounters Date Type Department Care Team (Late st Contact Info) Description 11/02/2024 8:15 AM CERTIFIER Office Visit [facility] [address] [place] [phone] Dakota Fabian APRN, MIGUEL ANGEL [address] [address] 11/26/2024 11:30 AM CERTIFIER Office Visit [facility] [address] [place] [address] Maggie Tolentino, PAC [address] [place] [address] documented as of this encounter Procedures Procedure Name Priority Date/Time Associated Diagnosis Comments XR CHEST 2 VIEWS STAT 09/11/2024 6:28 PM CERTIFIER GROUP A STREP BY PCR STAT 09/11/2024 6:15 PM CERTIFIER RSV,SARS-COV-2,INFL UENZA A&B BY PCR STAT 09/11/2024 6:15 PM CERTIFIER documented in this encounter Results * XR CHEST 2 VIEWS (09/11/2024 6:28 PM CERTIFIER) Anatomical Region Laterality Modality Chest N/A Digital Radiogra phy 09/11/2024 7:20 PM CERTIFIER Impressions 09/11/2024 7:23 PM CERTIFIER IMPRESSION: No acute cardiopulmonary abnormality. Narrative 09/11/2024 7:23 PM CERTIFIER EXAM DESCRIPTION: XR CHEST 2 VIEWS REASON FOR STUDY: pt c/o chills, runny nose, body aches and sore throat of four days ago. hx of HTN and Hysterectomy ?? TECHNIQUE: Frontal and lateral ??radiographic view(s) of the chest. COMPARISON: None FINDINGS: LUNGS: ??No focal opacity, pleural effusion, or pneumothorax. ?? HEART/MEDIASTINUM: ??Cardiac silhouette normal in size. Mediastinal and hilar contours appear normal. LINES/TUBES: ??None. BONES: ??No acute osseous abnormality. THIS IS AN ELECTRONICALLY VERIFIED FINAL REPORT 09/11/2024 7:20 PM - Electronically signed by ??Nick Godinez M.D. AM: AM D: ??09/11/2024 7:20 PM T: ??09/11/2024 7:20 PM Report ID: [id number] Reading Location: ??[id number] Procedure Note Nick Godinez MD - 09/11/2024 EXAM DESCRIPTION: XR CHEST 2 VIEWS REASON FOR STUDY: pt c/o chills, runny nose, body aches and sore throat of four days ago. hx of HTN and Hysterectomy TECHNIQUE: Frontal and lateral radiographic view(s) of the chest. COMPARISON: None FINDINGS: LUNGS: No focal opacity, pleural effusion, or pneumothorax. HEART/MEDIASTINUM: Cardiac silhouette normal in size. Mediastinal and hilar contours appear normal. LINES/TUBES: None. BONES: No acute osseous abnormality. THIS IS AN ELECTRONICALLY VERIFIED FINAL REPORT 09/11/2024 7:20 PM - Electronically signed by Nick Godinez M.D. AM: AM Report ID: [id number] Reading Location: [place] [address] IMPRESSION: No acute cardiopulmonary abnormality. Ashly Sullivan APRN, MIGUEL ANGEL IMG DIAGNOSTIC ORDERA BLES Final Result * GROUP A STREP BY PCR (09/11/2024 6:15 PM CERTIFIER) Pathologist [facility] GROUP A STREP BY PCR NOT DETECTED NOT DETECTED 09/11/2024 7:08 PM CERTIFIER [facility] Swab SPECIMEN FROM THROAT / Unknown Non-Phlebotomy Collection / Unknown 09/11/2024 6:15 PM CERTIFIER 09/11/2024 6:40 PM CERTIFIER Ashly Sullivan APRN, CNP MICROBIOLOGY - GENERA L ORDERABLES Final Result [facility] [address] [place] [address] * RSV,SARS-COV-2,INFLUENZA A&B BY PCR (09/11/2024 6:15 PM CERTIFIER) FLU A Negative Negative, Error 09/11/2024 7:21 PM CERTIFIER [facility] FLU B Negative Negative 09/11/2024 7:21 PM CERTIFIER [facility] RESP SYNC VIRUS Negative Negative 7:21 PM CERTIFIER [facility] SARSCOV2 NOT DETECTED (Reference Range for this test is Not Detected) 09/11/2024 7:21 PM CERTIFIER [facility] Comment:This test was perfor med by a Reverse Home Support Worker PCR Method. Swab NASOPHARYNGEAL SWAB / Unknown Non-Phlebotomy Collection / Unknown 09/11/2024 6:15 PM CERTIFIER 09/11/2024 6:40 PM CERTIFIER Narrative [facility] - 09/11/2024 7:21 PM CERTIFIER This test has not been FDA cleared or approved; the test has been authorized by FDA under an Emergency Use Authorization (EUA) for use by laboratories certified under the CLIA that meet the requirements to perform moderate, high or waived complexity tests. Authorized Fact Sheets about this test for providers and patients are available at: https://www.fda.gov/medical-devices/invizkuag-hagbrzokbw-csrijwo-devices/emergen -us e-authorizations us Ashly Sullivan APRN, ORIENTAL RUG REPAIRER MICROBIOLOGY - GENERA L ORDERABLES Final Result [facility] [address] [place] [address] documented in this encounter Visit Diagnoses Diagnosis Viral illness- Primary Unspecified viral infection, in conditions classified elsewhere and of unspecified site documented in this encounter Additional Health Concerns Infection Onset Date Last Indicated Resolved Time MRSA 03/30/2020 03/30/2020 COVID - 19 09/11/2024 09/11/2024 09/11/2024 7:2 1 PM CERTIFIER Assessment Noted Time PHQ-9 Depression Total Score: 0 01/04/20 23 2:56 PM CDT documented as of this encounter Care Teams Animal Biologist Relationship Specialty Start Date End Date Dakota Fabian APRN, ORIENTAL RUG REPAIRER [address] [facility] [address] [address] PCP - General Advanced Practice Nurse 04/27/24 documented as of this encounter
--- OUTSIDE RECORDS SUMMARY | 2024-10-20 03:50 | XMS_ITS | Encounter Summary ---
Author Organization [employer] Care Team Providers Care Travel Agent Name Role Phone Dakota Fabian APRN, MILL OILER Primary Care Pr ovider Encounter Details Date Type Department Care Team (Latest Contact Info) Description 07/20/2024 Travel Social History Tobacco Use Types Packs/Day Years Used Date Smoking Tobacco: Never Smokeless Tobacco: Never Alcohol Use Standard Drinks/Week Comments No 0 (1 standard drink = 0.6 oz pur e alcohol) [facility] Utilities Answer Date Recorded In the past 12 months has [employer], gas, oil, or water company threatened [...] often do you attend chur ch or sikh services? More than 4 times per year 03/16/2024 Do you belong to any clubs o r organizations such as anabaptist groups, unions, fraternal or athletic groups, or [...] Total Score - Questions 1-9 0 12/12 [facility] of Occupat ional Health - Occupational Stress [...] place to sleep or slept in a custodial (including now)? 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 [address] [place] [address] Dakota Fabian APRN, MILL OILER [address] [address] 11/26/2024 11:[address] HOGGER OPERATOR Office Visit [facility] [address] [place] [address] Maggie Tolentino PAC [address] [facility] [place] [address] documented as of this encounter Visit Diagnoses Not on filedocumented in this encounter Additional Health Concerns Infection Onset Date Last Indicated Resolved Time MRSA 03/30/2020 03/30/2020 Assessment Noted Time PHQ-9 Depression Total Score: 0 01/04/20 2:56 PM CDT documented as of this encounter Care Teams Travel Agent Relationship Specialty Start Date End Date Dakota Fabian, [employer], MILL OILER [address] [address] PCP - General Advanced Practice Nurse 04/27/24 documented as of this encounter
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
--- OUTSIDE RECORDS SUMMARY | 2024-10-20 03:50 | XMS_ITS | Clinical Summary ---
Author Organization [facility] Address [address] [place] [address] Phone Care Team Providers Care Mixer Operator Name Role Phone Dakota Fabian APRN, BATTERY FILLER Primary Care Pr ovider Allergies Active Allergy Reactions Criticality Noted Date Comments Penicillins Rash,Itching High 07/09/2017 Reaction: Rash, , Medications amLODIPine (NORVASC) 10 MG TabletIndication s:Primary hypertension TAKE 1 TABLET BY MOUTH EVERY DAY 90 Tablet 2 4 Active Additional Information Patient taking differently: EVERY MORNING, Reported on 01/08/2024 FLUoxetine (PROzac) 20 MG Capsule Take 20 mg by mouth daily. Active Multiple Vitamin (MULTI-VITAMIN PO) Take by mouth. Takes all in one now Active losartan (COZAAR) 50 MG TabletIndication s:Primary hypertension Take 1 Tablet by mouth daily. 90 Tablet 3 4 Active cetirizine (ZyrTEC) 10 MG TabletIndication s:Chronic sinusitis, unspecified location Take 1 Tablet by mouth daily. 90 Tablet 1 4 Active ondansetron (ZOFRAN-ODT) 4 MG TABLET DISPERSIBLEIndic ations:Acute UTI TAKE 1 TABLET BY MOUTH EVERY 8 HOURS NEEDED FOR NAUSEA FIRST LINE 15 Tablet 5 4 Active tiZANidine (ZANAFLEX) 4 MG TabletIndication s:Degenerative lumbar disc TAKE 1 TABLET BY MOUTH NIGHTLY NEEDED FOR MUSCLE SPASMS. 30 Tablet 2 4 Active montelukast (SINGULAIR) 10 MG TabletIndication s:Chronic sinusitis, unspecified location Take 1 tablet by mouth once daily 90 Tablet 4 Active Active Problems Problem Noted Date Diagnosed Date Folic acid deficiency 05/11/2024 B12 deficiency 05/11/2024 Chronic prescription opiate use 05/01/2021 Hypertensive disorder 09/28/2019 Hyperlipidemia 09/28/2019 Chronic sinusitis 09/28/2019 Degenerative lumbar disc 09/28/2019 Depression 09/28/2019 Anxiety 09/28/2019 Gastroesophageal reflux disease 09/28/2019 History of methicillin resis tant Staphylococcus aureus infection 09/28/2019 Sacroiliac joint dysfunction of both sides 05/11 Cervicalgia 05/11/2019 Obstructive sleep apnea syndrome 01/17/2014 Overview (09/28/2019): Overview: Obstructive sleep apnea syndrome Restless legs syndrome 01/17/2014 Overview (09/28/2019): Overview: Restless leg syndrome Hypersomnia 01/17/2014 Overview (01/11/2021): Hypersomnia Encounters Date Type Department Care Team Description 09/11/2024 5:42 PM RESP THERAPIST - 09/11/2024 7:41 PM RESP THERAPIST Emergency [facility] Emergency [address] [place] [address] Ashly Sullivan APRN, BATTERY FILLER Viral illness Discharge Disposition: Discharged to home or Selfcare 09/11/2024 Travel 08/29/2024 Refill [facility] [address] [place] [address] Maggie Tolentino PAC Medication Refill 08/17/2024 Telephone [facility] [address] [place] [phone] Dakota Fabian APRN, BATTERY FILLER Cough 08/14/2024 Refill [facility] [address] [place] [address] Dakota Fabian APRN, CNP Medication Refill 07/20/2024 8:50 AM CDT - 07/20/2024 1:53 PM CDT Emergency [facility] Emergency [address] [place] [phone] Dalton Chapa MD Flank pain Discharge Disposition: Discharged to home or Selfcare 07/20/2024 Travel from Last 3 Months Immunizations Immunization Administration Dates Next Due Influenza Seasonal, Intrader mal, Preservative Free 08/04/2017 Influenza Vaccine 07/05/2016,08/08/2015 Influenza Vaccine greater than 3 yrs 08/04/2017, 07/05/2016,08/08/2015 Influenza Vaccine, Quadrivalent, PF 08/04/2017 Influenza, Injectable, Quadrivalent 07/22/2018 Influenza, Seasonal, Injectable, Undefined 07/05,08/08/2015 Family History Medical History Relation Name Comments Diabetes Father Alcohol Abuse Maternal Grandfather Heart Attack Maternal Grandfather Alzheimer's Disease Maternal Grandmother Dementia Maternal Grandmother Osteoporosis Maternal Grandmother Stroke Maternal Grandmother Breast Cancer Mother Cancer Mother Osteoporosis Mother Paranoid behavior Paternal Grandfather Schizophrenia Paternal Grandfather Diabetes Paternal Grandmother Thyroid Disease Sister Relation Name Status Comments Father Alive Maternal Grandfather Maternal Grandmother Mother Alive Paternal Grandfather Paternal Grandmother Sister Alive Social History Tobacco Use Types Packs/Day Years Used Date Smoking Tobacco: Never Smokeless Tobacco: Never Tobacco Cessation:Counseling Given: No Alcohol Use Standard Drinks/Week Comments No 0 (1 standard drink = 0.6 oz pur e alcohol) [facility] Utilities Answer Date Recorded In the past 12 months has [employer], gas, oil, or water company threatened to [...] How often do you attend chur or episcopal services? 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 Not on file Not on file Last Filed Vital Signs Vital Sign Reading Time Taken Comments Blood Pressure 139/93 09/11/2024 5:50 PM RESP THERAPIST Pulse 96 09/11/2024 7:30 PM RESP THERAPIST Temperature 36.1 ??C (96.9 ??F) 09/11/2024 5:50 PM CS T Respiratory Rate 17 09/11/2024 5:50 PM RESP THERAPIST Oxygen Saturation 97% 09/11/2024 7:30 PM RESP THERAPIST Inhaled Oxygen Concentration - - Weight 90.7 kg (200 lb) 09/11/2024 5:50 PM RESP THERAPIST Height 157.5 cm (5' 2 ) 09/11/2024 5:50 PM RESP THERAPIST Body Mass Index 36.58 09/11/2024 5:50 PM RESP THERAPIST Plan of Treatment Upcoming Encounters Date Type Department Care Team (Late st Contact Info) Description 11/02/2024 8:15 AM RESP THERAPIST [facility] [address] [place] [address] Dakota Fabian, GUIDANCE SERVICES COORDINATOR, BATTERY FILLER [address] [address] 11/26/2024 11:30 AM RESP THERAPIST Office Visit [facility] [address] [place] [address] Maggie Tolentino Marie, PAC [address] [place] [address] Health Maintenance Due Date Last Done Comments TdaP Immunization 1975 Hepatitis B Immunization (1 of 3 - 19+ 3-dose series) 1994 Colonoscopy 2020 Colorectal Cancer Screening 2020 Mammogram 08/02/2023 08/02/2021, 07/13, 09/05/2018, Additional history exists Influenza Immunization (#1) 06/13/202407/13, 08/04/2017, 08/04/2017, Additional history exists SARS-COV-2 Immunization (2023- season) 2024 Respiratory Syncytial Virus (RSV) Immunization (Adult) (1 - 1-dose 75+ series) 2050 Discussion re Starting/Frequency of Mammograms Completed 08/02/2021, 07/22/2020, 09/05/2018, Additional history exists Hepatitis C Virus (HCV) Screening Completed 05/10/2024 Meningococcal Immunization (ACWY) Aged Out No longer eligible based on patient's age to complete this topic Pneumococcal Immunization Combined Aged Out No longer eligible based on patient's age to complete this topic Rotavirus Immunization Aged Out No lo nger eligible based on patient's age to complete this topic Procedures Procedure Name Priority Date/Time Associated Diagnosis Comments XR CHEST 2 VIEWS STAT 09/11/2024 6:28 PM RESP THERAPIST GROUP A STREP BY PCR STAT 09/11/2024 6:15 PM RESP THERAPIST RSV,SARS-COV-2,INF LUENZA A&B BY PCR STAT 09/11/2024 6:[address] ABDOMEN PELVIS W/ CONTRAST Stat with Interpretation 07/20/2024 12:03 PM CDT GOLD TOP TUBE STAT 07/20/2024 9:42 AM CDT BLUE TOP TUBE STAT 07/20/2024 9:42 AM CDT CBC WITH AUTO DIFFERENTIAL STAT 07/20/2024 9:42 AM CDT EXTRA TUBES STAT 07/20/2024 9:42 AM CDT CMP (COMPREHENSIVE METABOLIC PANEL) STAT 07/20/2024 9:42 AM CDT COMPLETE BLOOD COUNT (CBC) WITH DIFF STAT 07/20/2024 9:42 AM CDT URINALYSIS REFLEX IF INDICATED BY ABNORMAL RESULTS STAT 07/20/2024 9:01 AM CDT HEPATITIS C ANTIBODY Routine 05/10/2024 4:31 PM CDT Encounter for hepatitis C screening test for low risk patient MARCO A SCREENING BILATERAL DIGITAL W CAD W SHENG Routine 08/02/2021 6:02 PM CDT Encounter for screening mammogram for malignant neoplasm of breast from Last 3 Months or Most Recently Relevant to Health Maintenance Results * XR CHEST 2 VIEWS (09/11/2024 6:28 PM RESP THERAPIST) Anatomical Region Laterality Modality Chest N/A Digital Radiogra phy 09/11/2024 7:20 PM RESP THERAPIST Impressions 09/11/2024 7:23 PM RESP THERAPIST IMPRESSION: No acute cardiopulmonary abnormality. Narrative 09/11/2024 7:23 PM RESP THERAPIST EXAM DESCRIPTION: XR CHEST 2 VIEWS REASON [...] PM T: ??09/11/2024 7:20 PM Report ID: [id number] Reading Location: ??[id number] Procedure Note Nick Godinez MD - 09/11/2024 [...] Nick Godinez M.D. AM: AM Report ID: [id number] Reading Location: [id number] IMPRESSION: No acute cardiopulmonary abnormality. Ashly Sullivan APRN, CNP IMG DIAGNOSTIC ORDERA BLES Final Result * GROUP A STREP BY PCR (09/11/2024 6:15 PM RESP THERAPIST) GROUP A STREP BY PCR NOT DETECTED NOT DETECTED 09/11/2024 7:08 PM RESP THERAPIST [facility] Swab SPECIMEN FROM THROAT / Unknown Non-Phlebotomy Collection / Unknown 09/11/2024 6:15 PM RESP THERAPIST 09/11/2024 6:40 PM RESP THERAPIST Ashly Sullivan APRN, MIGUEL ANGEL MICROBIOLOGY - GENERA L ORDERABLES Final Result [facility] [address] [place] [address] * RSV,SARS-COV-2,INFLUENZA A&B BY PCR (09/11/2024 6:15 PM RESP THERAPIST) FLU A Negative Negative, Error 09/11/2024 7:21 PM RESP THERAPIST [facility] FLU B Negative Negative 09/11/2024 7:21 PM RESP THERAPIST [facility] RESP SYNC VIRUS Negative Negative 7:21 PM RESP THERAPIST [facility] SARSCOV2 NOT DETECTED (Reference Range for this test is Not Detected) 09/11/2024 7:21 PM RESP THERAPIST [facility] Comment:This test was perfor med by a Reverse Surgical Lead PCR Method. Swab NASOPHARYNGEAL SWAB / Unknown Non-Phlebotomy Collection / Unknown 09/11/2024 6:15 PM RESP THERAPIST 09/11/2024 6:40 PM RESP THERAPIST Narrative [facility] - 09/11/2024 7:21 PM RESP THERAPIST This test has not been FDA cleared or approved; the test has been authorized by FDA under an Emergency Use Authorization (EUA) for use by laboratories certified under the CLIA that meet the requirements to perform moderate, high or waived complexity tests. Authorized Fact Sheets about this test for providers and patients are available at: https://www.fda.gov/medical-devices/dpigchchs-gtqpqysrzh-csyzgim-devices/emergen -us e-authorizations us Ashly Sullivan APRN, BATTERY FILLER MICROBIOLOGY - GENERA L ORDERABLES Final Result [facility] [address] [place] [address] * CT ABDOMEN PELVIS W/ CONTRAST (07/20/2024 [...] PM T: ??07/20/2024 12:52 PM Report ID: [id number] Reading Location: ??[id number] Procedure Note Jaret Lares MD - 07/20/2024 [...] Jaret Lares M.D. AG: MAURI Report ID: [id number] Reading Location: [id number] IMPRESSION: 1. No gross CT finding to explain the patient's symptoms. Dalton Chapa MD IMG CT ORDERABLES Serene l Result * Gold Top Tube (07/20/2024 9:42 AM CDT) Blood No Phlebotomy Charged / Unknown 07/20/2024 9:42 AM CDT 07/20/2024 9:50 AM CDT Dalton Chapa MD CHEMISTRY ORDERABLES F inal Result Performing Organization Address City/[facility] Co de Phone Number [facility] [address] [place] [address] * Blue Top Tube (07/20/2024 9:42 AM CDT) Blood No Phlebotomy Charged / Unknown 07/20/2024 9:42 AM CDT 07/20/2024 9:50 AM CDT Dalton Chapa MD HEMATOLOGY ORDERABLES Final Result Performing Organization Address City/[facility]/ZIP Co de Phone Number [facility] [address] [place] [address] * CBC with Auto Differential (07/20/2024 9:42 AM CDT) WBC 6.66 4.00 - 12.00 10(3)/mcL 07/20/2024 9:59 AM CDT [facility] RBC 4.68 3.80 - 5.30 10(6)/mcL 07/20/2024 9:59 AM CDT [facility] HEMOGLOBIN (HGB) 13.7 12.0 - 15.8 g/dL 07/20/2024 9:59 AM CDT [facility] HEMATOCRIT (HCT) 42 36 - 47 % 07/20/20 9:59 AM CDT [facility] MCV 89.5 82.0 - 96.0 fL 07/20/2024 9:59 AM CDT [facility] MCH 29.3 26.0 - 34.0 pg 07/20/2024 9:59 AM CDT [facility] MCHC 32.7 31.0 - 36.0 g/dL 07/20/2024 9:59 AM CDT [facility] PLATELET COUNT 391 140 - 440 10(3)/mcL 07/20/2024 9:59 AM CDT [facility] RDW 14.3 11.8 - 15.5 % 07/20/2024 9:59 AM CDT [facility] MPV 10.0 9.7 - 12.4 fL 07/20/2024 9:59 AM CDT [facility] NEUTROPHILS 68.4 47.0 - 73.0 % 07/20/2024 9:59 AM CDT [facility] LYMPHOCYTES 22.7 18.0 - 42.0 % 07/20/2024 9:59 AM CDT [facility] MONOCYTES 5.4 4.0 - 12.0 % 07/20/2024 9:59 AM CDT [facility] EOSINOPHILS 2.3 0.0 - 5.0 % 07/20/2024 9:59 AM CDT [facility] BASOPHILS 0.9 0.0 - 1.0 % 07/20/2024 9:59 AM CDT [facility] ABSOLUTE NEUTROPHILS 4.56 1.60 - 7.70 10(3)/mcL 07/20/2024 9:59 AM CDT [facility] ABSOLUTE LYMPHOCYTES 1.51 1.30 - 3.20 10(3)/mcL 07/20/2024 9:59 AM CDT [facility] ABSOLUTE MONOCYTES 0.36 0.20 - 1.00 10(3)/mcL 07/20/2024 9:59 AM CDT [facility] ABSOLUTE EOSINOPHIL 0.15 0.00 - 0.40 10(3)/mcL 07/20/2024 9:59 AM CDT [facility] ABSOLUTE BASOPHILS 0.06 0.00 - 0.10 10(3)/[facility] 07/20/2024 9:59 AM CDT [facility] Blood Venipuncture / Unknown 07/20/2024 9:42 AM CDT 07/20/2024 9:48 AM CDT us Dalton Chapa MD HEMATOLOGY ORDERABLES Final Result [facility] [address] [place] [address] * (ABNORMAL) CMP (07/20/2024 9:42 AM CDT) SODIUM 142 136 - 145 mmol/L 07/20/2024 10:35 AM CDT [facility] POTASSIUM 4.1 3.5 - 5.1 mmol/L 07/20/2024 10:35 AM CDT [facility] CHLORIDE 105 98 - 107 mmol/L 07/20/2024 10:35 AM CDT [facility] CO2, VENOUS 28 22 - 30 mmol/L 07/20/2024 10:35 AM CDT [facility] ANION GAP 13.1 <18.0 mmol/L 07/20/2024 10:35 AM CDT [facility] GLUCOSE 94 70 - 99 mg/dL 07/20/2024 10:35 AM CDT [facility] BUN 6 5 - 18 mg/dL 07/20/2024 10:35 AM T [facility] CREATININE, BLOOD 0.68 0.60 - 1.00 mg/dL 07/20/2024 10:35 AM CDT [facility] BUN/CREATININE RATIO 9(L) 12 - 20 ratio 07/20/2024 10:35 AM CDT [facility] TOTAL PROTEIN 7.2 6.3 - 8.2 g/dL 07/20/2024 10:35 AM T [facility] ALBUMIN 4.1 3.5 - 5.0 g/dL 07/20/2024 10:35 AM T [facility] A/G RATIO 1.3 1.0 - 2.2 07/20/2024 10:35 AM T [facility] CALCIUM 8.8 8.7 - 10.5 mg/dL 07/20/2024 10:35 AM T [facility] T BILI 0.5 0.2 - 1.2 mg/dL 07/20/2024 10:[address] [facility] SGOT (AST) 19 5 - 34 U/L 07/20/2024 10:[address] [facility] SGPT (ALT) 22 0 - 55 U/L 07/20/2024 10:[address] [facility] ALKALINE PHOSPHATASE 61 40 - 150 U/L 07/20/2024 10:[address] [facility] GFR, ESTIMATED >60 >=60 07/20/2024 10:[address] [facility] Comment: Creatinine Clearance is the preferred criteria for selecting drug dose adjustments in renally impaired patients. ??The GFR is provided as additional pertinent clinical information. GFR is reported in mL/min/1.73 sq m. Calculation based on the Chronic Kidney Disease Epidemiology Collaboration (CKD- EPI) equation refit without adjustment for race. GFR, EST. >60 >=60 024 10:35 AM CDT [facility] GFR, EST. NONAFRICAN >60 >=60 07/20/2024 10:35 AM CDT [facility] Blood Venipuncture / Unknown 07/20/2024 9:42 AM CDT 07/20/2024 9:48 AM CDT us Dalton Chapa MD CHEMISTRY ORDERABLES F inal Result [facility] [address] [place] [address] * (ABNORMAL) Urinalysis w/ Reflex (07/20/2024 9:01 AM CDT) SPECIFIC GRAVITY 1.015 1.003 - 1.030 07/20/2024 9:25 AM CDT [facility] URINE PH 8.0 5.0 - 9.0 07/20/2024 9:25 AM CDT [facility] WBC ESTERASE Negative Negative 07/20/2024 9:25 AM CDT [facility] NITRITE Negative Negative 07/20/2024 9:25 AM CDT [facility] PROTEIN, RANDOM URINE 15 mg/dL(A) Negative 07/20/2024 9:25 AM CDT [facility] URINE GLUCOSE, QUAL Negative Negative 07/20/2024 9:25 AM CDT [facility] URINE KETONES Negative Negative 07/20/2024 9:25 AM CDT [facility] UROBILINOGEN Normal Normal mg/dL 07/20/2024 9:25 AM CDT [facility] URINE BLOOD Negative Negative marjorie/ul 07/20/2024 9:25 AM CDT [facility] URINALYSIS COLOR Yellow 07/20/20 9:25 AM CDT [facility] URINALYSIS CLARITY Clear 07/20/2024 9:25 AM CDT [facility] Urine URINE SPECIMEN / Unknown Non-Phlebotomy Collection / Unknown 07/20/2024 9:01 AM CDT 07/20/2024 9:21 AM CDT us Dalton Chapa MD URINE ORDERABLES Final Result [facility] [address] [place] [address] * HEPATITIS C ANTIBODY (05/10/2024 4:31 PM CDT) hepatitis C antibody 0.07 <1 S/CO 05/11/2024 3:39 PM CDT [facility] Comment: Signal/Cutoff ratio ??< 0.79 is Nondetected Signal/Cutoff ratio 0.80-0.99 is Grayzone Signal/Cutoff ratio > 0.99 is Detected Supplemental assays are recommended if signal/cutoff ratio is >/=1.00. ??Signal/cutoff ratio result >/= 5.00 is 97% predictive of positivity for recombinant immunoblot assay (RIBA) and will be reported to the [place] Department of Public Health as required. Blood Venipuncture / Unknown 05/10/2024 4:31 PM CDT 05/10/2024 4:45 PM CDT us Dakota Fabian APRN, BATTERY FILLER CHEMISTRY ORDERA BLES Final Result Performing Organization Address City/[facility] Co de Phone Number [facility] [address] [place] [address], [place] * MARCO A SCREENING BILATERAL DIGITAL W CAD W SHENG (08/02/2021 6:02 PM CDT) Anatomical Region Laterality Modality breast Bilateral Mammography 08/02/2021 5:21 PM CDT Narrative 08/03/2021 12:55 PM CDT - MARCO A SCREENING BILATERAL DIGITAL W CAD W SHENG BILATERAL DIGITAL SCREENING MAMMOGRAM 3D/2D WITH CAD WITH MEDIOLATERAL OBLIQUE CRANIOCAUDAL: 08/02/2021 The study was acquired using digital technology and interpreted from soft copy. Current study was also evaluated with ICAD version 7.2. 2D digital mammographic views, as well as 3D digital tomosynthesis were performed in the CC and MLO projections. ?? CLINICAL: Routine screening. Patient has no complaints. No personal history of cancer. Mother with premenopausal breast cancer. ?? COMPARISONS: Comparison is made to exams dated: ??07/22/2020, 09/05/2018, and 02/13/2016 [facility]. ?? BREAST TISSUE:The tissue of both breasts is predominantly fatty. ?? FINDINGS: There are benign calcifications in the right breast. ?? No significant masses, calcifications, or other findings are seen in either breast. ?? There has been no significant interval change. IMPRESSION: BI-RAD 2 BENIGN There is no mammographic evidence of malignancy. A 1 year screening mammogram is recommended. ?? The patient has been or will be contacted. ?? The patient will be entered into a reminder system with a target due date of 1 year for her next screening exam. Electronically signed by: Killian Sandoval M.D. ? ll/penrad:08/03/2021 11:33:14 ?? Radioisotope Production Operator(s): Nellie ??RT Pam(R)(M), [facility] letter sent: Normal Exam ?? Reading location: [facility] BI-RADS: 2 Benign Procedure Note Killian Sandoval MD - 08/03/2021 - MARCO A SCREENING BILATERAL DIGITAL W CAD W SHENG BILATERAL DIGITAL SCREENING MAMMOGRAM 3D/2D WITH CAD WITH MEDIOLATERAL OBLIQUE CRANIOCAUDAL: 08/02/2021 The study was acquired using digital technology and interpreted from soft copy. Current study was also evaluated with ICAD version 7.2. 2D digital mammographic views, as well as 3D digital tomosynthesis were performed in the CC and MLO projections. CLINICAL: Routine screening. Patient has no complaints. No personal history of cancer. Mother with premenopausal breast cancer. COMPARISONS: Comparison is made to exams dated: 07/22/2020, 09/05/2018, and 02/13/2016 [facility]. BREAST TISSUE:The tissue of both breasts is predominantly fatty. FINDINGS: There are benign calcifications in the right breast. No significant masses, calcifications, or other findings are seen in either breast. There has been no significant interval change. IMPRESSION: BI-RAD 2 BENIGN There is no mammographic evidence of malignancy. A 1 year screening mammogram is recommended. The patient has been or will be contacted. The patient will be entered into a reminder system with a target due date of 1 year for her next screening exam. Electronically signed by: Killian Sandoval M.D. ll/penrad:08/03/2021 11:33:14 Radioisotope Production Operator(s): RT Freddie(R)(M), [facility] letter sent: Normal Exam Reading location: [facility] BI-RADS: 2 Benign us John Méndez MD IMG MAMMO ORDERABLES Final Resul t from Last 3 Months or Most Recently Relevant to Health Maintenance Additional Health Concerns Infection Onset Date Last Indicated MRSA 03/30/2020 03/30/2020 Insurance MEDICAID [place] Care Teams Mixer Operator Relationship Specialty Start Date End Date Dakota Fabian APRN, BATTERY FILLER [address] [place] [address] PCP - General Advanced Practice Nurse 04/27/24
--- OUTSIDE RECORDS SUMMARY | 2024-10-20 03:50 | XMS_ITS | Encounter Summary ---
Author Organization [facility] Care Team Providers Care Carpet Inspector Finished Name Role Phone Dakota Fabian APRN, PHARMACY TECHNICIAN INPATIENT Primary Care Pr ovider Encounter Details Date Type Department Care Team (Latest Contact Info) Description 09/11/2024 Travel Social History Tobacco Use Types Packs/Day Years Used Date Smoking Tobacco: Never Smokeless Tobacco: Never Alcohol Use Standard Drinks/Week Comments No 0 (1 standard drink = 0.6 oz pur e alcohol) [facility] Utilities Answer Date Recorded In the past 12 months has [employer], gas, oil, or water company threatened [...] often do you attend chur ch or pentecostal services? More than 4 times per year 03/16/2024 Do you belong to any clubs o r organizations such as methodist groups, unions, fraternal or athletic groups, or [...] Total Score - Questions 1-9 0 12/12 [facility] [place] of Occupat ional Health - Occupational Stress [...] place to sleep or slept in a senior care (including now)? 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 Not on file documented as of this encounter Plan of Treatment Upcoming Encounters Date Type Department Care Team (Late st Contact Info) Description 11/02/2024 8:15 AM NURSE WOUND CARE Office Visit [facility] [address] [place] [address] Dakota Fabian APRN, PHARMACY TECHNICIAN INPATIENT [address] [address] 11/26/2024 11:30 AM NURSE WOUND CARE Office Visit [facility] [address] [place] [address] Maggie Tolentino PAC [address] [place] [address] documented as of this encounter Visit Diagnoses Not on filedocumented in this encounter Additional Health Concerns Infection Onset Date Last Indicated Resolved Time MRSA 03/30/2020 03/30/2020 COVID - 19 09/11/2024 09/11/2024 09/11/2024 7:21 PM NURSE WOUND CARE Assessment Noted Time PHQ-9 Depression Total Score: 0 01/04/20 2:56 PM CDT documented as of this encounter Care Teams Carpet Inspector Finished Relationship Specialty Start Date End Date Dakota Fabian, SPEAKING UNIT ASSEMBLER, PHARMACY TECHNICIAN INPATIENT #[address] [address] PCP - General Advanced Practice Nurse 04/27/24 documented as of this encounter
--- OUTSIDE RECORDS SUMMARY | 2024-10-20 03:51 | XMS_ITS | Encounter Summary ---
Author Organization [facility] Address [address] [place] [address] Phone Care Team Providers Care Cartridge Loading Operator Name Role Phone Dakota Fabian APRN, CNP Primary Care Pr ovider Reason for Visit * Reason Comments New Patient Encounter Details Date Type Department Care Team (Late st Contact Info) Description 04/27/2024 4:00 PM CDT Office Visit [facility] - [facility] [address] [place] [address] Dakota Fabian APRN, [facility] [place] [address] [address] Primary hypertension (Primary Dx); Degenerative lumbar disc; Acute UTI; Therapeutic drug monitoring Discharge Disposition: Discharged to home or Selfcare Social History Tobacco Use Types Packs/Day Years Used Date Smoking Tobacco: Never Smokeless Tobacco: Never Tobacco Cessation:Counseling Given: No Alcohol Use Standard Drinks/Week Comments No 0 (1 standard drink = 0.6 oz pur e alcohol) [facility] Utilities Answer Date Recorded In the [...] often do you attend chur ch or hindu services? 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 Not on file Not on file Not on file documented as of this encounter Last Filed Vital Signs Vital Sign Reading Time Taken Comments Blood Pressure 134/70 04/27/2024 3:14 PM CDT Pulse 51 04/27/2024 3:14 PM CDT Temperature 36.6 ??C (97.8 ??F) 04/27/2024 3:14 PM CD T Respiratory Rate 16 04/27/2024 3:14 PM CDT Oxygen Saturation 97% 04/27/2024 3:14 PM CDT Inhaled Oxygen Concentration - - Weight 104.9 kg (231 lb 4.8 oz) 04/27/2024 3:14 PM CDT Height 158.8 cm (5' 2.5 ) 04/27/2024 3:14 PM CDT Body Mass Index 41.63 04/27/2024 3:14 PM CDT documented in this encounter Functional Status * Question Answer Date of Assessment Author Little interest or pleasure in doing things Not at all 04/27/2024 3:14 PM CDT Lisy Blount , CESAR Feeling down, depressed, or hopeless Not at all 04/27/2024 3:14 PM CDT Lisy Blount CMA * Over the past 2 weeks, how often have you been bothered by any of the following problems? Question Answer Date of Assessment Author Patient Health Questionnaire -2 Score 0 04/27/2024 3:14 PM CDT Lisy Blount CMA documented as of this encounter Progress Notes * Lisy Blount CMA - 04/27/2024 4:00 PM CDT Melinda Olmedo, 49 y.o., female is here for New Patient Medication Refills: Patient reports/denies need for medication refills. Orders Pended: no Requested Prescriptions No prescriptions requested or ordered in this encounter Home Medications Medication Sig Start Date End Date Taking? Authorizing Provider albuterol (PROVENTIL/VENTOLIN) 1.25 MG/3ML Nebulizer Soln INHALE [...] BY MOUTH EVERY DAY IN THE EVENING 11/10/23 John Méndez MD buPROPion (WELLBUTRIN) 150 MG XL tablet TAKE 1 TABLET BY MOUTH EVERY DAY IN THE MORNING 11/10/23 John Méndez MD cetirizine (ZyrTEC) 10 MG Tablet TAKE 1 TABLET BY MOUTH EVERY DAY 06/17/23 John Méndez MD losartan (COZAAR) 50 MG Tablet Take 1 Tablet by mouth daily. Patient taking differently: Take 50 mg by mouth every morning. 04/29/22 John Méndez MD montelukast (SINGULAIR) 10 MG Tablet Take 1 Tablet by mouth daily. 09/03/22 John Méndez MD omeprazole (PriLOSEC) 40 MG CAPSULE DELAYED RELEASE Take 1 Capsule by mouth daily. 04/29/22 John Méndez MD pregabalin (LYRICA) 50 MG Capsule Take 1 Capsule by mouth 3 times daily. 03/16/24 Dakota Fabian APRN, CNP sertraline (ZOLOFT) 50 MG Tablet Take 1 Tablet by mouth daily. 03/16/24 Dakota Fabian APRN, CNP tiZANidine (ZANAFLEX) 4 MG Tablet TAKE 1 TABLET BY MOUTH NIGHTLY NEEDED FOR MUSCLE SPASMS. 12/02/22 John Méndez MD There are no discontinued medications. I have [...] Maintenance: Health Maintenance Due Topic Date Due Hepatitis C Virus (HCV) Screening Never done TdaP Immunization Never done Hepatitis B Immunization (1 of 3 - 19+ 3-dose series) Never done Colorectal Cancer Screening Never done SARS-COV-2 Immunization (2022-) Never done Mammogram 08/02/2023 Orders Pended: no The following BPA's have been addressed with the patient today: Depression * Dakota Fabian APRN, CNP - 04/27/2024 4:00 PM CDT Subjective: Subjective CC: F/U HTN, lumbar DDD; UTI Melinda Olmedo is a 49-year-old female who presents the office today to follow-up for hypertension and lumbar degenerative disc disease. Did not get her preop testing done. Recently went to [facility] with increasing epigastric pain that radiated around to the back. Possible cystitis on CT. UA was positive. Did not get a prescribed antibiotics. Reports having a low-grade temp. No other acute concerns. The history is provided by the patient, the spouse and medical records. 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 Review of Systems Constitutional: Negative for chills, fatigue and fever. HENT: Negative for congestion, ear discharge, ear pain, postnasal drip, sinus pressure, sinus pain,sore throat and trouble swallowing. Eyes: Negative for photophobia, pain and discharge. Respiratory: Negative for cough, chest tightness, shortness of breath and wheezing. Cardiovascular: Negative for chest pain and palpitations. Gastrointestinal: Positive for abdominal pain. Negative for constipation, diarrhea, nausea and vomiting. Genitourinary: Positive for flank pain. Negative for dysuria, frequency, hematuria and urgency. Musculoskeletal: Positive for back pain. Negative for arthralgias and myalgias. Skin: Negative for rash and wound. Neurological: Negative for dizziness, seizures, syncope, numbness and headaches. Psychiatric/Behavioral: Negative for suicidal ideas. Allergies Allergies Allergen Reactions Penicillins Rash and Itching Reaction: Rash, , Medications Current Outpatient Medications: acetaminophen-codeine (TYLENOL #3) 300-30 MG Tablet, Take 1-2 Tablets by mouth every 6 hours as needed for Moderate or more severe pain., Disp: 20 Tablet, Rfl: 0 albuterol (PROVENTIL/VENTOLIN) 1.25 MG/3ML Nebulizer Soln, INHALE 1 VIAL (3MLS) VIA NEBULIZER EVERY4 HOURS NEEDED FOR WHEEZING OR COUGH, Disp: 300 mL, Rfl: 2 albuterol 108 (90 Base) MCG/ACT Aerosol Solution, TAKE 2 PUFFS BY MOUTH EVERY 4 HOURS NEEDED FORWHEEZE, Disp: 18 g, Rfl: 1 amLODIPine (NORVASC) 10 MG Tablet, TAKE 1 TABLET BY MOUTH EVERY DAY (Patient taking differently: every morning.), Disp: 90 Tablet, Rfl: 2 atorvastatin (LIPITOR) 20 MG Tablet, TAKE 1 TABLET BY MOUTH EVERY DAY IN THE EVENING, Disp: 90 Tablet, Rfl: 1 buPROPion (WELLBUTRIN) 150 MG XL tablet, TAKE 1 TABLET BY MOUTH EVERY DAY IN THE MORNING, Disp: 90 Tablet, Rfl: 1 cetirizine (ZyrTEC) 10 MG Tablet, TAKE 1 TABLET BY MOUTH EVERY DAY, Disp: 30 Tablet, Rfl: 5 ciprofloxacin (CIPRO) 500 MG Tablet, Take 1 Tablet by mouth 2 times daily for 5 days., Disp: 10 Tablet, Rfl: 0 losartan (COZAAR) 50 MG Tablet, Take 1 Tablet by mouth daily. (Patient taking differently: Take 50 mg by mouth every morning.), Disp: 90 Tablet, Rfl: 3 montelukast (SINGULAIR) 10 MG Tablet, Take 1 Tablet by mouth daily., Disp: 90 Tablet, Rfl: 3 omeprazole (PriLOSEC) 40 MG CAPSULE DELAYED RELEASE, Take 1 Capsule by mouth daily., Disp: 90 Capsule, Rfl: 3 ondansetron (ZOFRAN-ODT) 4 MG TABLET DISPERSIBLE, Take 1 Tablet by mouth every 8 hours as needed for Nausea - 1st line., Disp: 15 Tablet, Rfl: 0 sertraline (ZOLOFT) 50 MG Tablet, Take 1 Tablet by mouth daily., Disp: 90 Tablet, Rfl: 0 tiZANidine (ZANAFLEX) 4 MG Tablet, TAKE 1 TABLET BY MOUTH NIGHTLY NEEDED FOR MUSCLE SPASMS., Disp: 30 Tablet, Rfl: 2 Past Medical History Past Medical History Positives Diagnosis Date Anxiety Broken arm 12/2015 lower left Broken leg 2017 Right leg Chronic sinusitis Degenerative lumbar disc Depression High cholesterol Hypertension Past Surgical History Past Surgical History: Procedure Laterality Date ECTOPIC SURGERY 2006 FRACTURE SURGERY Left Arm - plate and screws FRACTURE SURGERY Right Leg - plate and screws HYSTERECTOMY Total hysterectomy LAPAROSCOPY laparoscopic exploratory abdominal surgery SALPINGO-OOPHORECTOMY Family History Family History Problem Relation Age of Onset Breast Cancer Mother Osteoporosis Mother Cancer Mother Diabetes Father Thyroid Disease Sister Osteoporosis Maternal Grandmother Alzheimer's Disease Maternal Grandmother Dementia Maternal Grandmother Stroke Maternal Grandmother Heart Attack Maternal Grandfather Alcohol Abuse Maternal Grandfather Diabetes Paternal Grandmother Schizophrenia Paternal Grandfather Paranoid behavior Paternal Grandfather Social History Social History Tobacco Use Smoking status: Never Smokeless tobacco: Never Vaping Use Vaping status: Never Used Substance Use Topics Alcohol use: No Drug use: No Objective: Objective Physical Exam Vitals and nursing note reviewed. Constitutional: General: She is not in acute distress. Appearance: She is well-developed. She is morbidly obese. She is not diaphoretic. HENT: Head: Normocephalic and atraumatic. Right Ear: External ear normal. Left Ear: External ear normal. Nose: Nose normal. Eyes: General: Right eye: No discharge. Left eye: No discharge. Conjunctiva/sclera: Conjunctivae normal. Pupils: Pupils are equal, round, and reactive to light. Neck: Trachea: No tracheal deviation. Cardiovascular: Rate and Rhythm: Normal rate and regular rhythm. Heart sounds: Normal heart sounds. No murmur heard. No friction rub. No gallop. Pulmonary: Effort: Pulmonary effort is normal. No respiratory distress. Breath sounds: Normal breath sounds. Abdominal: General: Bowel sounds are normal. Palpations: Abdomen is soft. Tenderness: There is no abdominal tenderness. Musculoskeletal: General: No deformity. Normal range of motion. Cervical back: Normal range of motion and neck supple. Lymphadenopathy: Cervical: No cervical adenopathy. Skin: General: Skin is warm and dry. Coloration: Skin is not pale. Findings: No rash. Neurological: Mental Status: She is alert and oriented to person, place, and time. Psychiatric: Behavior: Behavior normal. Thought Content: Thought content normal. Judgment: Judgment normal. Vitals: 04/27/24 1514 BP: 134/70 Pulse: 51 Resp: 16 Temp: 97.8 ??F (36.6 ??C) TempSrc: Temporal SpO2: 97% Weight: 231 lb 4.8 oz (104.9 kg) Height: 5' 2.5 (1.588 m) Assessment and Plan Assessment & Plan See Diagnoses, Orders, Follow-up, and Instructions 1. Primary hypertension 2. Degenerative lumbar disc - URINE DRUG SCREEN; Future - acetaminophen-codeine (TYLENOL #3) 300-30 MG Tablet; Take 1-2 Tablets by mouth every 6 hours as needed for Moderate or more severe pain. Dispense: 20 Tablet; Refill: 0 3. Acute UTI - ciprofloxacin (CIPRO) 500 MG Tablet; Take 1 Tablet by mouth 2 times daily for 5 days. Dispense: 10 Tablet; Refill: 0 - ondansetron (ZOFRAN-ODT) 4 MG TABLET DISPERSIBLE; Take 1 Tablet by mouth every 8 hours as needed for Nausea - 1st line. Dispense: 15 Tablet; Refill: 0 4. Therapeutic drug monitoring - URINE DRUG SCREEN; Future Hypertension. Stable well controlled. Continue current meds. Lumbar degenerative disc disease. Small amount Tylenol 3. Check UDS. UTI. Will give some Cipro and Zofran. Get outstanding lab work done. Follow-up in office in 6 months. I discussed all new medications and potential side effects or risks associated with them. Patient is to contact our office with any concerns. Patient instructions and educational materials were given to the patient. Patient (or patient field service representative) demonstrates verbal understanding of instructions given. Patient should follow up with their PCP for general health maintenance needs. Patient should contact our office if their problems persist or call 911/go the to ER if issues become more persistent. If any referrals have been made, patient should contact our office with in 3-5 days if they have not heard anything from our referral team or the referring physician. Documentation for this visit on 04/27/24 was completed using a template. I have seen and examined the patient. Everything documented was personally performed at this visit with the necessary additions, deletions and changes made as appropriate. Note: Portions of this chart may have been completed with voice recognition software and may contain slight errors unrecognizable by the users. This would in no way affect the patient's care and is meant to improve length and quality of medical decision making and history taking. 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 Office Visit [facility] [address] [place] [address] Dakota Fabian APRN, CNP [address] [address] 11/26/2024 11:30 AM RADIOTELEGRAPH OPERATOR SERVICER Office Visit [facility] [address] [place] [address] Maggie Tolentino PAC [address] [place] [address] documented as of this encounter Results * URINE DRUG SCREEN (04/28/2024) Urine 04/28/2024 Dakota Fabian APRN, CNP URINE ORDERABLES Final Result documented in this encounter Visit Diagnoses Diagnosis Primary hypertension- Primary Unspecified essential hypertension Degenerative lumbar disc Degeneration of lumbar or lumbosacral intervertebral disc Acute UTI Urinary tract infection, site not specified Therapeutic drug monitoring Encounter for therapeutic drug monitoring documented in this encounter Additional Health Concerns Infection Onset Date Last Indicated Resolved Time 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
--- OUTSIDE RECORDS SUMMARY | 2024-10-20 03:51 | XMS_ITS | Encounter Summary ---
Author Organization [facility] Address [address] [place] [address] Phone Care Team Providers Care Book Illustrator Name Role Phone John Méndez MD Primary Care Provider [phone] Reason for Referral * Radiology Services (Routine) - Authorized Specialty Diagnoses / Procedures Referred By Magui jacobo Referred To Contact Radiology Diagnoses Encounter for screening mammogram for malignant neoplasm of breast Procedures MARCO A SCREENING BILATERAL DIGITAL W CAD W SHENG Dakota Fabian APRN, MOLECULAR BIOLOGIST #[address] [address] Phone: tel: fax: Referral ID Status Reason Start Date Expiration Date V isits Requested Visits Authorized [id number] Authorized 03/16/2024 1 1 * Consult, Test & Initiate Treatment (Routine) - Closed Specialty Diagnoses / Procedures Referred By Magui jacobo Referred To Contact Diagnoses Moderate episode of recurrent major depressive disorder (HCC) Anxiety Dakota Fabian APRN, MOLECULAR BIOLOGIST #[address] [address] Phone: tel: fax: [address] [address] Phone: tel: fax: Referral ID Status Reason Start Date Expiration Date Visits Re quested Visits Authorized [id number] Closed 03/16/2024 1 1 Scheduling Instructions Melinda is being referred to Dr. Lux or other specialist in patient's insurance network for MDD, anxiety. See below for Melinda's current medications, allergies and problem list. CURRENT MEDS: Current Outpatient Medications: albuterol (PROVENTIL/VENTOLIN) 1.25 MG/3ML Nebulizer Soln, INHALE 1 VIAL (3MLS) VIA NEBULIZER EVERY 4 HOURS NEEDED FOR WHEEZING OR COUGH, Disp: 300 mL, Rfl: 2 albuterol 108 (90 Base) MCG/ACT Aerosol Solution, TAKE 2 PUFFS BY MOUTH EVERY 4 HOURS NEEDED FOR WHEEZE, Disp: 18 g, Rfl: 1 amLODIPine (NORVASC) [...] EVERY DAY, Disp: 30 Tablet, Rfl: 5 losartan (COZAAR) 50 MG Tablet, Take 1 Tablet by mouth daily. (Patient taking differently: Take 50 mg by mouth every morning.), Disp: 90 Tablet, Rfl: 3 montelukast (SINGULAIR) 10 MG Tablet, Take 1 Tablet by mouth daily., Disp: 90 Tablet, Rfl: 3 omeprazole (PriLOSEC) 40 MG CAPSULE DELAYED RELEASE, Take 1 Capsule by mouth daily., Disp: 90 Capsule, Rfl: 3 tiZANidine (ZANAFLEX) 4 MG Tablet, TAKE 1 TABLET BY MOUTH NIGHTLY NEEDED FOR MUSCLE SPASMS., Disp: 30 Tablet, Rfl: 2 No current facility-administered medications for this visit. ALLERGIES: -- Penicillins -- Rash and Itching -- Reaction: Rash, , PROBLEM LIST: Patient Active Problem List: Sacroiliac joint dysfunction of both sides Cervicalgia Hypertensive disorder Hyperlipidemia Chronic sinusitis Degenerative lumbar disc Depression Anxiety Gastroesophageal reflux disease History of methicillin resistant Staphylococcus aureus infection Obstructive sleep apnea syndrome Restless legs syndrome Hypersomnia Chronic prescription opiate use Reason for Visit * Reason Comments Preventive Care Encounter Details Date Type Department Care Team (Late st Contact Info) Description 03/16/2024 4:15 PM CDT Office Visit [facility] [address] [place] [address] Dakota Fabian APRN, MIGUEL ANGEL #[address] [address] Moderate episode of recurrent major depressive disorder (HCC) (Primary Dx); Anxiety; Primary hypertension; Chronic bilateral low back pain with bilateral sciatica; 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; Encounter for hepatitis C screening test for low risk patient; Encounter for screening mammogram for malignant neoplasm of breast; Encounter for vitamin deficiency screening Discharge Disposition: Discharged to home or Selfcare Social History Tobacco Use Types Packs/Day Years Used Date Smoking Tobacco: Never Smokeless Tobacco: Never Tobacco Cessation:Counseling Given: No Alcohol Use Standard Drinks/Week Comments No 0 (1 standard drink = 0.6 oz pur e alcohol) [facility] Utilities Answer Date Recorded In the past 12 months has [employer], gas, oil, or water [employer] threatened to shut off services in your [...] any clubs o r organizations such as alevism groups, unions, fraternal or athletic groups, or [...] Total Score - Questions 1-9 0 12/12 [facility] - Occupational [...] 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 Not on file Not on file Not on file documented as of this encounter Last Filed Vital Signs Vital Sign Reading Time Taken Comments Blood Pressure 124/72 03/16/2024 4:00 PM CDT Pulse 75 03/16/2024 4:00 PM CDT Temperature 36.3 ??C (97.4 ??F) 03/16/2024 4:00 PM CD T Respiratory Rate 16 03/16/2024 4:00 PM CDT Oxygen Saturation 98% 03/16/2024 4:00 PM CDT Inhaled Oxygen Concentration - - Weight 107.7 kg (237 lb 6.4 oz) 03/16/2024 4:00 PM CDT Height 158.8 cm (5' 2.5 ) 03/16/2024 4:00 PM CDT Body Mass Index 42.73 03/16/2024 4:00 PM CDT documented in this encounter Functional Status * Audit-C Score Answer Date of Assessment Author 0 03/16/2024 3:45 PM CDT [facility] * Within the last year, have you been humiliated or emotionally abused in other ways by your partner or ex-partner? Answer Date of Assessment Author No 03/16/2024 3:45 PM CDT [facility] * Within the last year, have you been afraid of your partner or ex-partner? Answer Date of Assessment Author No 03/16/2024 3:45 PM CDT [facility] * Within the last year, have you been raped or forced to have any kind of sexual activity by your partner or ex-partner? Answer Date of Assessment Author No 03/16/2024 3:45 PM CDT [facility] * Within the last year, have you been kicked, hit, slapped, or otherwise physically hurt by your partner or ex-partner? Answer Date of Assessment Author No 03/16/2024 3:45 PM CDT [facility] * Q1: How often do you have a drink containing alcohol? Answer Date of Assessment Author Never 03/16/2024 3:45 PM CDT [facility] * Q2: How many drinks containing alcohol do you have on a typical day when you are drinking? Answer Date of Assessment Author Patient does not drink 03/16/2024 3:45 PM CDT [facility] * Q3: How often do you have six or more drinks on one occasion? Answer Date of Assessment Author Never 03/16/2024 3:45 PM CDT [facility] * Question Answer Date of Assessment Author Little interest or pleasure in doing things Not at all 03/16/2024 4:00 PM CDT Lisy Blount CMA Feeling down, depressed, or hopeless Not at all 03/16/2024 4:00 PM CDT Lisy Blount CMA * Over the past 2 weeks, how often have you been bothered by any of the following problems? Question Answer Date of Assessment Author Patient Health Questionnaire -2 Score 0 03/16/2024 4:00 PM CDT Lisy Blount CMA documented as of this encounter Progress Notes * Lisy Blount CMA - 03/16/2024 4:15 PM CDT Melinda Magana Shara, 48 y.o., female is here for Preventive Care Medication Refills: Patient reports/denies need for medication refills. Orders Pended: no Requested Prescriptions No prescriptions requested or ordered in this encounter Home Medications Medication Sig Start Date End Date Taking? Authorizing Provider acetaminophen-codeine (TYLENOL #3) 300-30 MG Tablet TAKE 1 TABLET BY MOUTH 3 TIMES A DAY NEEDED FOR SEVERE PAIN. Patient not taking: Reported on 01/08/2024 01/08/23 John Méndez MD albuterol (PROVENTIL/VENTOLIN) 1.25 MG/3ML Nebulizer Soln INHALE [...] IN THE MORNING 11/10/23 John Méndez MD celecoxib (CeleBREX) 200 MG Capsule Take 1 Capsule by mouth daily. Patient not taking: Reported on 01/08/2024 09/03/22 John Méndez MD cetirizine (ZyrTEC) 10 MG Tablet TAKE 1 TABLET BY MOUTH EVERY DAY 06/17/23 John Méndez MD escitalopram (LEXAPRO) 20 MG Tablet TAKE 1 TABLET BY MOUTH EVERY DAY Patient taking differently: every morning. 12/29/23 John Méndez MD losartan (COZAAR) 50 MG Tablet Take 1 Tablet by mouth daily. Patient taking differently: Take 50 mg by mouth every morning. 04/29/22 John Méndez MD montelukast (SINGULAIR) 10 MG Tablet Take 1 Tablet by mouth daily. 09/03/22 John Méndez MD naloxone HCl (Narcan) 4 MG/0.1ML Liquid One spray in nostril Q 2-3 minutes until pt improves or until emergency units arrive to assume care. Patient not taking: Reported on 01/08/2024 04/29/22 John Méndez MD omeprazole (PriLOSEC) 40 MG CAPSULE DELAYED RELEASE Take 1 Capsule by mouth daily. 04/29/22 John Méndez MD tiZANidine (ZANAFLEX) 4 MG Tablet TAKE 1 TABLET BY MOUTH NIGHTLY NEEDED FOR MUSCLE SPASMS. 12/02/22 John Méndez MD traMADol (ULTRAM) 50 MG Tablet Take 1-2 Tablets by mouth every 6 hours as needed for Moderate or more severe pain. Patient not taking: Reported on 01/08/2024 08/29/23 Lauri Andrews MD There are no discontinued medications. I have reviewed the home medication list with the patient and have reconciled discrepancies. The list is accurate to the best of my knowledge. Smoking Status: Social History Tobacco Use Smoking status: Never Smokeless tobacco: Never Vaping Use Vaping Use: Never used Substance Use Topics Alcohol use: No Drug [...] addressed with the patient today: Depression and Advanced Care Planning ABUSE and FUNCTIONAL * Lisy Blount CMA - 03/16/2024 4:15 PM CDT Melinda screened for Social Determinants of Health and screened positive for Physical Activity and Stress. Patient declined resources. * Dakota Fabian APRN, MOLECULAR BIOLOGIST - 03/16/2024 4:15 PM CDT Subjective: Subjective CC: Depression/anxiety, HTN, chronic back pain Melinda Olmedo is a 48 year old female who presents the office today to follow-up for depression/anxiety, hypertension, chronic back pain. Currently on Lexapro and Wellbutrin feels like that has not helping her anxiety. Still having panic attacks and having them rather frequently. Wouldlike to see a psychiatrist. Also wants to see if she gets switch the Lexapro to sertraline feel like she had better results with that. Blood pressure well controlled in the office today. Compliant medications. Having chronic back pain despite ibuprofen. Due for mammogram and colonoscopy. She had a colonoscopy scheduled, but there was a loss of power in her procedure was canceled. Needs to reschedule that. Due for lab work. No other acute concerns. The history is provided by the patient and medical records. No glove parts cutter was used. Preventive Care Pertinent negatives include no abdominal pain, arthralgias, chest pain, chills, congestion, coughing, fatigue, fever, headaches, myalgias, nausea, numbness, rash, sore throat or vomiting. Review of Systems Constitutional: Negative for chills, fatigue and fever. HENT: Negative for congestion, ear discharge, ear pain, postnasal drip, sinus pressure, sinus pain,sore throat and trouble swallowing. Eyes: Negative for photophobia, pain and discharge. Respiratory: Negative for cough, chest tightness, shortness of breath and wheezing. Cardiovascular: Negative for chest pain and palpitations. Gastrointestinal: Negative for abdominal pain, constipation, diarrhea, nausea and vomiting. Genitourinary: Negative for dysuria, flank pain, frequency, hematuria and urgency. Musculoskeletal: Positive for back pain. Negative for arthralgias and myalgias. Skin: Negative for rash and wound. Neurological: Negative for dizziness, seizures, syncope, numbness and headaches. Psychiatric/Behavioral: Positive for dysphoric mood. Negative for suicidal ideas. The patient is nervous/anxious. Allergies Allergies Allergen Reactions Penicillins Rash and Itching Reaction: Rash, , Medications Current Outpatient Medications: albuterol (PROVENTIL/VENTOLIN) 1.25 MG/3ML Nebulizer Soln, INHALE [...] EVERY DAY, Disp: 30 Tablet, Rfl: 5 losartan (COZAAR) 50 MG Tablet, Take 1 Tablet by mouth daily. (Patient taking differently: Take 50 mg by mouth every morning.), Disp: 90 Tablet, Rfl: 3 montelukast (SINGULAIR) 10 MG Tablet, Take 1 Tablet by mouth daily., Disp: 90 Tablet, Rfl: 3 omeprazole (PriLOSEC) 40 MG CAPSULE DELAYED RELEASE, Take 1 Capsule by mouth daily., Disp: 90 Capsule, Rfl: 3 pregabalin (LYRICA) 50 MG Capsule, Take 1 Capsule by mouth 3 times daily., Disp: 90 Capsule, Rfl: 1 sertraline (ZOLOFT) 50 MG Tablet, Take 1 [...] Never Smokeless tobacco: Never Vaping Use Vaping Use: Never used Substance Use Topics Alcohol use: No Drug [...] Thought content normal. Judgment: Judgment normal. Vitals: 03/16/24 1600 BP: 124/72 Pulse: 75 Resp: 16 Temp: 97.4 ??F (36.3 ??C) TempSrc: Temporal SpO2: 98% Weight: 237 lb 6.4 oz (107.7 kg) Height: 5' 2.5 (1.588 m) Assessment and Plan Assessment & Plan See Diagnoses, Orders, Follow-up, and Instructions 1. Moderate episode of recurrent major depressive disorder (HCC) - sertraline (ZOLOFT) 50 MG Tablet; Take 1 Tablet by mouth daily. Dispense: 90 Tablet; Refill: 0 - EXTERNAL PSYCHIATRY REFERRAL; Future 2. Anxiety - EXTERNAL PSYCHIATRY REFERRAL; Future 3. Primary hypertension - CMP (COMPREHENSIVE METABOLIC PANEL); Future - LIPID PANEL; Future - COMPLETE BLOOD COUNT (CBC) WITH DIFF; Future 4. Chronic bilateral low back pain with bilateral sciatica - pregabalin (LYRICA) 50 MG Capsule; Take 1 Capsule by mouth 3 times daily. Dispense: 90 Capsule; Refill: 1 5. 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 Encounter for hepatitis C screening test for low risk patient - HEPATITIS C ANTIBODY; Future 7. Encounter for screening mammogram for malignant neoplasm of breast - MARCO A SCREENING BILATERAL DIGITAL W CAD W SHENG; Future 8. Encounter for vitamin deficiency screening - VITAMIN B12; Future - FOLIC ACID (FOLATE); Future Major depressive disorder/anxiety. Psychiatry referral. Okay to discontinue Lexapro and try sertraline. Hypertension. Stable and well controlled. Continue current medications and check labs. Low backpain. Continue ibuprofen. Add Lyrica. Check labs and mammogram. Reschedule colonoscopy. Follow-up in office in 6 weeks for recheck. I discussed all new medications and potential side effects or risks associated with them. Patient is to contact our office with any concerns. Patient instructions and educational materials were given to the patient. Patient (or patient inside outside sales representative) demonstrates verbal understanding of instructions given. [...] referring physician. Documentation for this visit on 03/16/24 was completed using a template. I have [...] st Contact Info) Description 11/02/2024 8:15 AM RADIO TOWER TECHNICIAN Office Visit [facility] [address] [place] [address] Dakota Fabian APRN, MIGUEL ANGEL [address] [address] 11/26/2024 11:30 AM RADIO TOWER TECHNICIAN Office Visit [facility] [address] [place] [address] NikkiMaggie silvestre, PAC [address] [place] [address] Scheduled Orders Name Type Priority Associated Diagnoses Orde r Schedule MARCO A SCREENING BILATERAL DIGITAL W CAD W SHENG Imaging Routine Encounter for screening mammogram for malignant neoplasm of breast Expected: 09/14/2024, Expires: 03/15/2025 Scheduled Referrals Name Type Priority Associated Diagnoses Order Schedule EXTERNAL PSYCHIATRY REFERRAL Outpatient Referral Routine Moderate episode of recurrent major depressive disorder (HCC) Anxiety Expected: 03/16/2024, Expires: 03/16/2025 documented as of this encounter Results * HEPATITIS C ANTIBODY (05/10/2024 4:31 PM CDT) [facility] hepatitis C antibody 0.07 <1 S/CO 05/11/2024 3:39 PM CDT [facility] Comment: Signal/Cutoff ratio ??< 0.79 is Nondetected Signal/Cutoff ratio 0.80-0.99 is Grayzone Signal/Cutoff ratio > 0.99 is Detected Supplemental assays are recommended if signal/cutoff ratio is >/=1.00. ??Signal/cutoff ratio result >/= 5.00 is 97% predictive of positivity for recombinant immunoblot assay (RIBA) and will be reported to the [place] Department of Public Health as required. Blood Venipuncture / Unknown 05/10/2024 4:31 PM CDT 05/10/2024 4:45 PM CDT us Dakota Fabian APRN, MOLECULAR BIOLOGIST CHEMISTRY ORDERA BLES Final Result [facility] [address] [place] [address], * (ABNORMAL) FOLIC ACID (FOLATE) (05/10/2024 4:31 PM CDT) Pathologist [facility] FOLATE 3.9(L) 7.0 - 31.4 ng/mL 05/10/2024 5:59 PM CDT [facility] IS THE PATIENT REQUIRED TO BE FASTING? No 05/10/2024 5:59 PM CDT [facility] Blood Venipuncture / Unknown 05/10/2024 4:31 PM CDT 05/10/2024 4:45 PM CDT Dakota Gonzáles Rui TOMAS, MOLECULAR BIOLOGIST CHEMISTRY ORDERA BLES Final Result Performing Organization Address City/[facility]/ZIP Co de Phone Number [facility] [address] [place] [address] * VITAMIN B12 (05/10/2024 4:31 PM CDT) VITAMIN B12 229 213 - 816 pg/mL 05/10/2024 5:59 PM CDT [facility] Blood Venipuncture / Unknown 05/10/2024 4:31 PM CDT 05/10/2024 4:45 PM CDT Dakotafran Fabian APRN, MIGUEL ANGEL CHEMISTRY ORDERA BLES Final Result Performing Organization Address City/[facility]/ZIP Co de Phone Number [facility] [address] [place] [address] * VITAMIN D, 25 HYDROXY TOTAL (05/10/2024 4:31 PM CDT) VITAMIN D, 25 HYDROX 24 ng/mL 05/10/2024 5:59 PM CDT [facility] Blood Venipuncture / Unknown 05/10/2024 4:31 PM CDT 05/10/2024 4:45 PM CDT Narrative [facility] - 05/10/2024 5:59 PM CDT Published reference ranges for Vitamin D vary depending on time and place and method of testing, and on patient's age, sex, ethnicity and levels of other measured analytes such as parathormone, calcium and phosphorus. ??The result should be evaluated in conjunction with clinical findings and suspicions. [employer] and Endocrine Clinical Practice Guidelines: Status Vitamin D levels (ng/mL) Deficient <=20 At risk of inadequacy 21-29 Sufficient 30-100 Centers of Disease Control and Prevention Guidelines: Status Vitamin D levels (ng/mL) Deficient <13 At risk of inadequacy 13-19 Sufficient 20-50 Possibly harmful >50 References: [employer], 2010 Dietary reference intakes for calcium and vitamin D. [place]: ??The National Academies Press. Vijay M, Fabiana N, Jerrod ISBELL, et al., Evaluation, treatment, and prevention of Vitamin D deficiency: an Endocrinology Clinical Practice Guideline. JCEM 2011 96: 7 4290-2969. Kathy A, Amari C, Maicol D, et al., Vitamin D Status: ??[place], 1005, [facility] data brief, no. 59, MD [place]: ??National Center for Health Statistics. 2010. Dakota Fabian APRN, [facility] CHEMISTRY ORDERA BLES Final Result [facility] [address] [place] [address] * (ABNORMAL) LIPID PANEL (05/10/2024 4:31 PM CDT) CHOLESTEROL 212(H) <200 mg/dL 05/10/2024 6:21 PM CDT [facility] TRIGLYCERIDES 211(H) <150 mg/dL 05/10/2024 6:21 PM CDT [facility] HDL CHOLESTEROL 47 >40 mg/dL 6:21 PM CDT [facility] LDL 123 <130 mg/dL 05/10/2024 6:21 PM CDT [facility] VLDL 42 10 - 50 mg/dL 05/10/2024 6:21 PM CDT [facility] CHOL/HDL RATIO 4.5(H) 0.0 - 4.4 05/10/2024 6:21 PM CDT [facility] NON-HDL CHOLESTEROL 165(H) <130 mg/dL 05/10/2024 6:21 PM CDT [facility] IS THE PATIENT REQUIRED TO BE FASTING? No 05/10/2024 6:21 PM CDT [facility] Blood Venipuncture / Unknown 05/10/2024 4:31 PM CDT 05/10/2024 4:45 PM CDT us Dakota Eliecer Banksomon REMEDIAL TEACHER, MOLECULAR BIOLOGIST CHEMISTRY ORDERA BLES Final Result [facility] [address] [place] [address] * (ABNORMAL) CMP (COMPREHENSIVE METABOLIC PANEL) (05/10/2024 4:31 PM CDT) SODIUM 143 136 - 145 mmol/L 05/10/2024 6:43 PM CDT [facility] POTASSIUM 3.5 3.5 - 5.1 mmol/L 05/10/2024 6:43 PM CDT [facility] CHLORIDE 109(H) 98 - 107 mmol/L 05/10/2024 6:43 PM CDT [facility] CO2, VENOUS 27 22 - 30 mmol/L 05/10/2024 6:43 PM CDT [facility] ANION GAP 10.5 <18.0 mmol/L 05/10/2024 6:43 PM CDT [facility] GLUCOSE 113(H) 70 - 99 mg/dL 05/10/2024 6:43 PM CDT [facility] BUN 9 5 - 18 mg/dL 05/10/2024 6:43 PM CDT [facility] CREATININE, BLOOD 0.76 0.60 - 1.00 mg/dL 05/10/2024 6:43 PM CDT [facility] BUN/CREATININE RATIO 12 12 - 20 ratio 05/10/2024 6:43 PM CDT [facility] TOTAL PROTEIN 7.2 6.3 - 8.2 g/dL 05/10/2024 6:43 PM CDT [facility] ALBUMIN 4.3 3.5 - 5.0 g/dL 05/10/2024 6:43 PM CDT [facility] A/G RATIO 1.5 1.0 - 2.2 05/10/2024 6:43 PM CDT [facility] CALCIUM 9.1 8.7 - 10.5 mg/dL 05/10/2024 6:43 PM CDT [facility] T BILI 0.3 0.2 - 1.2 mg/dL 05/10/2024 6:43 PM CDT [facility] SGOT (AST) 16 5 - 34 U/L 05/10/2024 6:43 PM CDT [facility] SGPT (ALT) 13 0 - 55 U/L 05/10/2024 6:43 PM CDT [facility] ALKALINE PHOSPHATASE 56 40 - 150 U/L 05/10/2024 6:43 PM CDT [facility] IS THE PATIENT REQUIRED TO BE FASTING? No 05/10/2024 6:43 PM CDT [facility] GFR, ESTIMATED >60 >=60 05/10/2024 6:43 PM CDT [facility] Comment: Creatinine Clearance is the preferred criteria for selecting drug dose adjustments in renally impaired patients. ??The GFR is provided as additional pertinent clinical information. GFR is reported in mL/min/1.73 sq m. Calculation based on the Chronic Kidney Disease Epidemiology Collaboration (CKD- EPI) equation refit without adjustment for race. GFR, EST. >60 >=60 024 6:43 PM CDT [facility] GFR, EST. NONAFRICAN >60 >=60 05/10/2024 6:43 PM CDT [facility] Blood Venipuncture / Unknown 05/10/2024 4:31 PM CDT 05/10/2024 4:45 PM CDT us Dakota Fabian REMEDIAL TEACHER, MOLECULAR BIOLOGIST CHEMISTRY ORDERA BLES Final Result [facility] [place] [address] documented in this encounter Visit Diagnoses Diagnosis Moderate episode of recurrent major depressive disorder (HCC)- Primary Anxiety Anxiety state, unspecified Primary hypertension Unspecified essential hypertension Chronic bilateral low back pain with bilateral sciatica Other senior living (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 therapy Encounter for hepatitis C screening test for low risk patient Encounter for screening mammogram for malignant neoplasm of breast Other screening mammogram Encounter for vitamin deficiency screening Screening for other and unspecified endocrine, nutritional, metabolic, and immunity disorders documented in this encounter Additional Health Concerns Infection Onset Date Last Indicated Resolved Time MRSA 03/30/2020 03/30/2020 Assessment Noted Time PHQ-9 Depression Total Score: 0 01/04/20 23 2:56 PM CDT documented as of this encounter Care Teams Book Illustrator Relationship Specialty Start Date End Date John Méndez MD PCP - General Family Medicine 09/28/19 04/26/24 documented as of this encounter
--- OUTSIDE RECORDS SUMMARY | 2024-10-20 03:51 | XMS_ITS | Encounter Summary ---
Author Organization [facility] Address [address] [facility] [place] [address] Phone Care Team Providers Care Manager Brand Name Role Phone John Méndez MD Primary Care Provider [phone] Reason for Visit * Reason Comments Knee Injury Encounter Details Date Type Department Care Team (Late st Contact Info) Description 08/29/2023 7:45 AM FIRE LIEUTENANT - 08/29/2023 8:38 AM FIRE LIEUTENANT Emergency 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 Not on file Not on file documented as of this encounter Last Filed Vital Signs Vital Sign Reading Time Taken Comments Blood Pressure 173/105 08/29/2023 8:15 AM FIRE LIEUTENANT Pulse 74 08/29/2023 8:15 AM FIRE LIEUTENANT Temperature 37.4 ??C (99.3 ??F) 08/29/2023 7:49 AM CS T Respiratory Rate 18 08/29/2023 7:49 AM FIRE LIEUTENANT Oxygen Saturation 100% 08/29/2023 8:15 AM FIRE LIEUTENANT Inhaled Oxygen Concentration - - Weight 107.5 kg (236 lb 15.9 oz) 08/29/2023 7:49 AM FIRE LIEUTENANT Height 158.8 cm (5' 2.5 ) 08/29/2023 7:49 AM FIRE LIEUTENANT Body Mass Index 42.66 08/29/2023 7:49 AM FIRE LIEUTENANT documented in this encounter Discharge Instructions * Discharge Instructions* Lauri Andrews MD - 08/29/2023 8:27 AM FIRE LIEUTENANT Take the Ultram as needed for pain. You can also take [id number] pain relievers such as Tylenol or ibuprofen. Wear the Venkatesh wrap as needed for added support until the pain improves. LIEUTENANT * Attachments The following attachments cannot be sent through Care Everywhere. * Contusion [id number]-Woxz (Setswana) documented in this encounter Medications at Time of Discharge acetaminophen-code ine (TYLENOL #3) 300-30 MG TabletIndications: Sacroiliac joint dysfunction of both sides,Degenerative lumbar disc TAKE 1 TABLET BY MOUTH 3 TIMES A DAY NEEDED FOR SEVERE PAIN. 90 Tablet 01/08/2023 4 albuterol (PROVENTIL/VENTOLI N) 1.25 MG/3ML Nebulizer SolnIndications:Wh eezing INHALE 1 VIAL (3MLS) VIA NEBULIZER EVERY 4 HOURS NEEDED FOR WHEEZING OR COUGH 300 mL 2 07/09/2022 4 albuterol 108 (90 Base) MCG/ACT Aerosol SolutionIndication s:Wheezing TAKE 2 PUFFS BY MOUTH EVERY 4 HOURS NEEDED FOR WHEEZE 18 g 1 11/05/2022 4 amLODIPine (NORVASC) 10 MG TabletIndications: Primary hypertension TAKE 1 TABLET BY MOUTH EVERY DAY 90 Tablet 2 02/10/2023 4 atorvastatin (LIPITOR) 20 MG TabletIndications: High cholesterol TAKE 1 TABLET BY MOUTH EVERY DAY IN THE EVENING 90 Tablet 1 07/03/2023 4 buPROPion (WELLBUTRIN) 150 MG XL tablet TAKE 1 TABLET BY MOUTH EVERY DAY IN THE MORNING 90 Tablet 1 07/03/2023 4 celecoxib (CeleBREX) 200 MG CapsuleIndications :Degenerative lumbar disc Take 1 Capsule by mouth daily. 90 Capsule 3 09/03/2022 4 cetirizine (ZyrTEC) 10 MG TabletIndications: Chronic sinusitis, unspecified location TAKE 1 TABLET BY MOUTH EVERY DAY 30 Tablet 5 06/17/2023 4 escitalopram (LEXAPRO) 20 MG Tablet TAKE 1 TABLET BY MOUTH EVERY DAY 90 Tablet 1 07/03/2023 4 losartan (COZAAR) 50 MG Tablet Take 1 Tablet by mouth daily. 90 Tablet 3 04/29/2022 4 montelukast (SINGULAIR) 10 MG TabletIndications: Chronic sinusitis, unspecified location Take 1 Tablet by mouth daily. 90 Tablet 3 09/03/2022 4 naloxone HCl (Narcan) 4 MG/0.1ML LiquidIndications: Degenerative lumbar disc One spray in nostril Q 2-3 minutes until pt improves or until emergency units arrive to assume care. 2 Each 2 04/29/2022 4 omeprazole (PriLOSEC) 40 MG CAPSULE DELAYED RELEASE Take 1 Capsule by mouth daily. 90 Capsule 3 04/29/2022 4 tiZANidine (ZANAFLEX) 4 MG TabletIndications: Degenerative lumbar disc TAKE 1 TABLET BY MOUTH NIGHTLY NEEDED FOR MUSCLE SPASMS. 30 Tablet 2 12/02/2022 4 traMADol (ULTRAM) 50 MG TabletIndications: Contusion of left knee, initial encounter Take 1-2 Tablets by mouth every 6 hours as needed for Moderate or more severe pain. 12 Tablet 08/29/2023 4 documented as of this encounter ED Notes * Homa aHirston RN - 08/29/2023 8:37 AM CST Patient discharged. Discharge instructions and patient educational material reviewed with patient; questions and concerns addressed; patient verbalizes understanding, using teach back. Patient was given q prescription. Patient was informed no drinking alcohol, driving or operating heavy machinery while taking narcotics or muscle relaxants. Patient discharged per ambulatory mode with self as responsible democrat. LIEUTENANT * Homa Hairston RN - 08/29/2023 8:20 AM CST Pt medicated per provider orders. Pt educated on intended effects and side effects of medication and verbalized understanding, able to provide teach back of education. LIEUTENANT * Homa Hairston RN - 08/29/2023 8:17 AM CST Xray at bedside. LIEUTENANT * Lauri Andrews MD - 08/29/2023 8:07 AM CST Chief Complaint Patient presents with ??? Knee Injury 48-year-old female presents with pain to the left knee. She reports that she hit it on a trailer hitch last night. She reports pain when she tries to fully extend her knee. She has been ambulatory since the injury and drove herself to the ER today. No other injuries reported. No current facility-administered medications for this encounter. Current Outpatient Medications Medication Sig Dispense Refill ??? acetaminophen-codeine (TYLENOL #3) 300-30 MG Tablet TAKE 1 TABLET BY MOUTH 3 TIMES A DAY NEEDED FOR SEVERE PAIN. 90 Tablet 0 ??? albuterol (PROVENTIL/VENTOLIN) 1.25 MG/3ML Nebulizer Soln INHALE 1 VIAL (3MLS) VIA NEBULIZER EVERY 4 HOURS NEEDED FOR WHEEZING OR COUGH 300 mL 2 ??? albuterol 108 (90 Base) MCG/ACT Aerosol Solution TAKE 2 PUFFS BY MOUTH EVERY 4 HOURS NEEDED FOR WHEEZE 18 g 1 ??? amLODIPine (NORVASC) 10 MG Tablet TAKE 1 TABLET BY MOUTH EVERY DAY 90 Tablet 2 ??? atorvastatin (LIPITOR) 20 MG Tablet TAKE 1 TABLET BY MOUTH EVERY DAY IN THE EVENING 90 Tablet 1 ??? buPROPion (WELLBUTRIN) 150 MG XL tablet TAKE 1 TABLET BY MOUTH EVERY DAY IN THE MORNING 90 Tablet 1 ??? celecoxib (CeleBREX) 200 MG Capsule Take 1 Capsule by mouth daily. 90 Capsule 3 ??? cetirizine (ZyrTEC) 10 MG Tablet TAKE 1 TABLET BY MOUTH EVERY DAY 30 Tablet 5 ??? escitalopram (LEXAPRO) 20 MG Tablet TAKE 1 TABLET BY MOUTH EVERY DAY 90 Tablet 1 ??? losartan (COZAAR) 50 MG Tablet Take 1 Tablet by mouth daily. (Patient taking differently: Take 50 mg by mouth every morning.) 90 Tablet 3 ??? montelukast (SINGULAIR) 10 MG Tablet Take 1 Tablet by mouth daily. 90 Tablet 3 ??? naloxone HCl (Narcan) 4 MG/0.1ML Liquid One spray in nostril Q 2-3 minutes until pt improves oruntil emergency units arrive to assume care. 2 Each 2 ??? omeprazole (PriLOSEC) 40 MG CAPSULE DELAYED RELEASE Take 1 Capsule by mouth daily. 90 Capsule 3 ??? tiZANidine (ZANAFLEX) 4 MG Tablet TAKE 1 TABLET BY MOUTH NIGHTLY NEEDED FOR MUSCLE SPASMS. 30 Tablet 2 ??? traMADol (ULTRAM) 50 MG Tablet Take 1-2 Tablets by mouth every 6 hours as needed for Moderate or more severe pain. 12 Tablet 0 Allergies Allergen Reactions ??? Penicillins Rash and Itching Reaction: Rash, , Past Medical History Positives Diagnosis Date ??? Anxiety ??? Broken arm 12/2015 lower left ??? Broken leg 2017 Right leg ??? Chronic sinusitis ??? Degenerative lumbar disc ??? Depression ??? High cholesterol ??? Hypertension Past Surgical History: Procedure Laterality Date ??? ECTOPIC SURGERY 2006 ??? FRACTURE SURGERY Left Arm - plate and screws ??? FRACTURE SURGERY Right Leg - plate and screws ??? HYSTERECTOMY Total hysterectomy ??? LAPAROSCOPY laparoscopic exploratory abdominal surgery ??? SALPINGO-OOPHORECTOMY Social History Socioeconomic History ??? Marital status: Spouse name: Not on file ??? Number of children: 3 ??? Years of education: Not on file ??? Highest education level: 12th grade Occupational History ??? 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 Smoking status: Never ??? Smokeless tobacco: Never Vaping Use ??? Vaping Use: Never used Substance and Sexual Activity ??? Alcohol use: No ??? Drug use: No ??? Sexual activity: Yes Partners: Male Other Topics Concern ??? Service No ??? Blood Transfusions No ??? Caffeine Concern No ??? Occupational Exposure No ??? Hobby Hazards No ??? Sleep Concern No ??? Stress Concern No ??? Weight Concern Yes ??? Special Diet No ??? Back Care Yes Comment: Back exercise from therapy ??? Exercise No ??? Bike Helmet Yes ??? Seat Belt Yes ??? Self-Exams Yes Social History Narrative ??? Not on file BP (!) 163/101 Pulse 73 Temp 99.3 ??F (37.4 ??C) (Tympanic) Resp 18 Ht 5' 2.5 (1.588 m) Wt 236 lb 15.9 oz (107.5 kg) LMP (LMP Unknown) Comment: full SpO2 100% BMI 42.66 kg/m?? Review of Systems Constitutional: Negative. Negative for activity change and fever. HENT: Negative for congestion, mouth sores, rhinorrhea, sore throat and trouble swallowing. Eyes: Negative for photophobia, redness and visual disturbance. Respiratory: Negative for cough, chest tightness and shortness of breath. Cardiovascular: Negative for chest pain. Gastrointestinal: Negative for abdominal pain, diarrhea, nausea and vomiting. Endocrine: Negative for polyuria. Genitourinary: Negative for dysuria, flank pain and frequency. Musculoskeletal: Positive for arthralgias and myalgias. Negative for joint swelling and neck stiffness. Skin: Negative for rash. Neurological: Negative for syncope, light-headedness and headaches. Psychiatric/Behavioral: Negative for hallucinations. Physical Exam Constitutional: Appearance: Normal appearance. She is not ill-appearing or toxic-appearing. HENT: Head: Normocephalic and atraumatic. Nose: Nose normal. Mouth/Throat: Mouth: Mucous membranes are moist. Eyes: General: No scleral icterus. Conjunctiva/sclera: Conjunctivae normal. Pulmonary: Effort: Pulmonary effort is normal. Breath sounds: No stridor. Abdominal: General: Abdomen is flat. There is no distension. Musculoskeletal: General: No swelling or deformity. Normal range of motion. Cervical back: Normal range of motion. Comments: Focused exam of the left knee shows no external signs of injury noted. She does report pain to palpation over the lateral aspect of the knee. There is no ecchymosis swelling or effusion No instability. Skin: Findings: No rash. Neurological: General: No focal deficit present. Psychiatric: Behavior: Behavior normal. Procedures No results found for this or any previous visit (from the past 24 hour(s)). Imaging Results XR KNEE 1 OR 2 VIEWS LEFT (In process) Procedure changed from XR KNEE MINIMUM 4 VIEWS LEFT XR KNEE MINIMUM 4 VIEWS LEFT (Canceled) Medical Decision Making Impression: Patient presents with left knee injuryconcerning for contusion vs sprain vs fracture. Notably, further history obtained from patient and outside records from ED were reviewed. Patient's history of HTN has impacted care and subsequent medical decision making. In the workup of these potential diagnoses I considered but did not pursue CT scan due to signs andsymptoms on exam and initial findings not consistent with these disease processes. Tests were independently reviewed and interpreted and imaging independently visualized and interpreted. This is notable for Negative X-ray Interventions and treatments in the ER- venkatesh wrap and Ultram I considered escalation of care including observation versus admission but not warranted due to lowacuity of condition Plan for discharge. Discussed the case with patient. I will prescribe Ultram. Reasons to return to the emergency room were discussed. Clinical Impression 1. Contusion of left knee, initial encounter Acute Disposition: Discharge LIEUTENANT * Homa Hairston RN - 08/29/2023 8:[address] Andrews ERP at bedside to evaluate. Ice provided to patient for knee per request. LIEUTENANT * Sylvia Gaffney RN - 08/29/2023 7:52 AM CST Pt to ed 6 with c/o pain to left lateral aspect knee after bumping it on a trailer hitch last pm. No swelling, bruising, or deformity present. PMS intact. Ice pack given. LIEUTENANT documented in this encounter Plan of Treatment Upcoming Encounters Date Type Department Care Team (Late st Contact Info) Description 11/02/2024 8:15 AM FIRE LIEUTENANT Office [facility] [address] [place] [address] Dakota Fabian APRN, BRAND STRATEGY MANAGER [address] [address] 11/26/2024 11:30 AM FIRE LIEUTENANT Office [facility] [address] [place] [address] Maggie Tolentino, PAC [address] [place] [address] documented as of this encounter Procedures Procedure Name Priority Date/Time Associated Diagnosis Comments XR KNEE 1 OR 2 VIEWS LEFT STAT 08/29/2023 8:17 AM FIRE LIEUTENANT documented in this encounter Results * XR KNEE 1 OR 2 VIEWS LEFT (08/29/2023 8:17 AM FIRE LIEUTENANT) Anatomical Region Laterality Modality LOWER EXTREMITY, knee Left Digital Ra diography 08/29/2023 8:27 AM FIRE LIEUTENANT Impressions 08/29/2023 8:29 AM FIRE LIEUTENANT IMPRESSION: No acute osseous abnormality. Narrative 08/29/2023 8:29 AM FIRE LIEUTENANT EXAM DESCRIPTION: XR KNEE 1 OR 2 VIEWS LEFT REASON FOR STUDY: left knee pain after bumping it last night. pain down leg and when she tries to fully extend her knee. ? TECHNIQUE: 2 ??radiographic view(s) of the ??left knee . COMPARISON: Radiograph dated May 26, 2019 FINDINGS: BONES/JOINTS: There is no acute fracture, malalignment or osseous abnormality. The joint spaces are normal. SOFT TISSUES: Within normal limits. ?? THIS IS AN ELECTRONICALLY VERIFIED FINAL REPORT 08/29/2023 8:27 AM - Electronically signed by ??Jackson Barrera M.D. JA: MARISA D: ??08/29/2023 8:27 AM T: ??08/29/2023 8:27 AM Report ID: [id number] Reading Location: ??[id number] Procedure Note Jackson Barrera MD - 08/29/2023 EXAM DESCRIPTION: XR KNEE 1 OR 2 VIEWS LEFT REASON FOR STUDY: left knee pain after bumping it last night. pain down leg and when she tries to fully extend her knee. TECHNIQUE: 2 radiographic view(s) of the left knee . COMPARISON: Radiograph dated May 26, 2019 FINDINGS: BONES/JOINTS: There is no acute fracture, malalignment or osseous abnormality. The joint spaces are normal. SOFT TISSUES: Within normal limits. THIS IS AN ELECTRONICALLY VERIFIED FINAL REPORT 08/29/2023 8:27 AM - Electronically signed by Jackson Barrera M.D. JA: MARISA Report ID: [id number] Reading Location: [id number] IMPRESSION: No acute osseous abnormality. Lauri Andrews MD [facility] [place] [facility] Final Result documented in this encounter Visit Diagnoses Diagnosis Contusion of left knee, initial encounter- Primary documented in this encounter Administered Medications Inactive Administered Medications - up to 3 most recent administrations Medication Order MAR Action Action Date Dose Rate Site traMADol (ULTRAM) tablet 50 mg 50 mg, Oral, ONCE, 1 dose, On Fri08/29/23 at 0830 Given 08/29/2023 8:19 AM FIRE LIEUTENANT 50 mg documented in this encounter Active and Recently Administered Medications Times are shown in FIRE LIEUTENANT. Scheduled Medication Order 08/27/2023 08/28/2023 08/29/2023 traMADol (ULTRAM) tablet 50 mg (COMPLETED) 50 mg, Oral, ONCE, 1 dose, On Fri08/29/23 at 0830 0819 (Given - Provid er: Homa Hairston RN) documented in this encounter Additional Health Concerns Infection Onset Date Last Indicated Resolved Time MRSA 03/30/2020 03/30/2020 Assessment Noted Time PHQ-9 Depression Total Score: 0 01/04/20 23 2:56 PM CDT documented as of this encounter Care Teams Manager Brand Relationship Specialty Start Date End Date John Méndez MD PCP - General Family Medicine 09/28/19 04/26/24 documented as of this encounter
--- OUTSIDE RECORDS SUMMARY | 2024-10-20 03:51 | XMS_ITS | Encounter Summary ---
Author Organization [facility] Address [address] 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 Spoke with patient. Will send them through [employer]. documented in this encounter Plan of Treatment Upcoming Encounters Date Type Department Care Team (Late st Contact Info) Description 11/02/2024 8:15 AM HAY BUCKLER Office Visit [facility] [address] [place] [address] Dakota Fabian APRN, GRAPE CRUSHER [address] [address] 11/26/2024 11:30 AM HAY BUCKLER Office Visit [facility] [address] [place] [address] Maggie Tolentino, PAC [address] [place] [address] documented as of this encounter Visit Diagnoses Not on filedocumented in this encounter Additional Health Concerns Infection Onset Date Last Indicated Resolved Time MRSA 03/30/2020 03/30/2020 Assessment Noted Time PHQ-9 Depression Total Score: 0 01/04/20 23 2:56 PM CDT documented as of this encounter Care Teams Voice Network Engineer Relationship Specialty Start Date End Date John Méndez MD PCP - General Family Medicine 09/28/19 04/26/24 documented as of this encounter
--- OUTSIDE RECORDS SUMMARY | 2024-10-20 03:51 | XMS_ITS | Encounter Summary ---
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 No / Unsure 02/20/2023 8:06 AM CDT documented as of this encounter Plan of Treatment Upcoming Encounters Date Type Department Care Team (Late st Contact Info) Description 11/02/2024 8:15 AM RAILWAY PATROL OFFICER Office Visit [facility] Medical [facility] - Family [facility] [address] [place] [address] Dakota Fabian, THOM, PHOTOGRAPHIC MACHINE OPERATOR [address] [address] 11/26/2024 11:30 AM RAILWAY PATROL OFFICER Office Visit [facility] - Family [facility] [address] [place] [address] Maggie Tolentino, PAC [address] [place] [address] documented as of this encounter Visit Diagnoses Not on filedocumented in this encounter Additional Health Concerns Infection Onset Date Last Indicated Resolved Time MRSA 03/30/2020 03/30/2020 Assessment Noted Time PHQ-9 Depression Total Score: 0 01/04/20 23 2:56 PM CDT documented as of this encounter Care Teams Nickel Operator Relationship Specialty Start Date End Date John Méndez MD PCP - General Family Medicine 09/28/19 04/26/24 documented as of this encounter
--- OUTSIDE RECORDS SUMMARY | 2024-10-20 03:51 | XMS_ITS | Encounter Summary ---
Author Organization [facility] Address [address] 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 Requested Prescriptions Pending Prescriptions Disp Refills ??? cetirizine (ZyrTEC) 10 MG Tablet [Pharmacy Med Name: CETIRIZINE HCL 10 MG TABLET] 30 Tablet 5 Sig: TAKE 1 TABLET BY MOUTH EVERY DAY Non-sedating Antihistamines Protocol Passed - 06/15/2023 6:01 PM Passed - Visit with relevant provider in past 12 months or upcoming 90 days Recent Visits Date Type Provider Dept 02/20/23 Office Visit John Méndez MD [facility] 01/03/23 Office Visit Maggie Tolentino PAC [facility] [place] 09/03/22 Office Visit John Méndez MD [facility] [place] Showing recent visits within past 365 days and meeting all other requirements Future Appointments Date Type Provider Dept 08/26/23 Appointment John M[facility]dez MD [facility] [place] Showing future appointments within next 90 days and meeting all other requirements Passed - Patient less than 65 years of age for Cetirizine or Levocetirizine documented in this encounter Plan of Treatment Upcoming Encounters Date Type Department Care Team (Late st Contact Info) Description 11/02/2024 8:15 AM DIRECTOR OF PLACEMENT Office Visit [facility] [address] [place] [address] Dakota Fabian APRN, WHEAT WASHER [address] [address] 11/26/2024 11:30 AM DIRECTOR OF PLACEMENT Office Visit [facility] [place] [address] [place] [address] Maggie Tolentino, PAC [address] [place] [address] documented as of this encounter Visit Diagnoses Diagnosis Chronic sinusitis, unspecified location documented in this encounter Additional Health Concerns Infection Onset Date Last Indicated Resolved Time MRSA 03/30/2020 03/30/2020 Assessment Noted Time PHQ-9 Depression Total Score: 0 01/04/20 23 2:56 PM CDT documented as of this encounter Care Teams Shipyard Helper Relationship Specialty Start Date End Date John Méndez MD PCP - General Family Medicine 09/28/19 04/26/24 documented as of this encounter
--- OUTSIDE RECORDS SUMMARY | 2024-10-20 03:51 | XMS_ITS | Encounter Summary ---
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 Not on file Not on file documented as of this encounter Plan of Treatment Upcoming Encounters Date Type Department Care Team (Late st Contact Info) Description 11/02/2024 8:15 AM DEPUTY CHIEF MAGISTRATE Office Visit [facility] - Family Medicine [facility] [address] [place] [address] Dakota Fabian, PACKAGE CENTER SUPERVISOR, RN NICU [address] [address] 11/26/2024 11:30 AM DEPUTY CHIEF MAGISTRATE Office Visit [facility] - [place] [address] [place] [place] [address] Maggie Tolentino, PAC [address]2 [place] [address] documented as of this encounter Visit Diagnoses Not on filedocumented in this encounter Additional Health Concerns Infection Onset Date Last Indicated Resolved Time MRSA 03/30/2020 03/30/2020 Assessment Noted Time PHQ-9 Depression Total Score: 0 01/04/20 23 2:56 PM CDT documented as of this encounter Care Teams Education Program Associate Relationship Specialty Start Date End Date John Méndez MD PCP - General Family Medicine 09/28/19 04/26/24 documented as of this encounter
--- OUTSIDE RECORDS SUMMARY | 2024-10-20 03:51 | XMS_ITS | Encounter Summary ---
Author Organization [facility] Address [address] [place] [address] Phone Care Team Providers Care Reservation Clerk Name Role Phone John Méndez MD Primary Care Provider [phone] Reason for Visit * Reason Comments Medication Refill Encounter Details Date Type Department Care Team (Late st Contact Info) Description 02/08/2023 Refill [facility] [address]2 [place] [address] John Méndez MD [address] [place] [address] Medication Refill Social History Tobacco Use Types Packs/Day Years Used Date Smoking Tobacco: Never Smokeless Tobacco: Never Alcohol Use Standard Drinks/Week Comments No 0 (1 standard drink = 0.6 oz pur e alcohol) PHQ-2 Answer Date Recorded Total Score - Questions 1-9 0 12/12 Sexually Active Control Partners Comments Yes Male Comments No Sex and Gender Information Value Date Recorded Sex Assigned at Not on file Legal Sex Female 12:28 AM CDT Gender Identity Not on file Sexual Orientation Not on file 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 Requested Prescriptions Pending Prescriptions Disp Refills ??? amLODIPine (NORVASC) 10 MG Tablet [Pharmacy Med Name: AMLODIPINE BESYLATE 10 MG TAB] 90 Tablet 2 Sig: TAKE 1 TABLET BY MOUTH EVERY DAY Calcium-Channel Blockers Protocol Passed - 02/08/2023 12:25 AM Passed - BP on record in the past year Clinician-entered: BP Readings from Last 3 Encounters: 01/03/23 108/80 09/03/22 112/64 05/08/22 142/90 Patient-entered: No data recorded Passed - Visit with relevant provider in past 12 months or upcoming 90 days Recent Visits Date Type Provider Dept 01/03/23 Office Visit Maggie Tolentino PAC [facility] 09/03/22 Office Visit John Méndez MD [facility] 04/29/22 Office Visit John Méndez MD [facility] Showing recent visits within past 365 days and meeting all other requirements Future Appointments Date Type Provider Dept 04/04/23 Appointment John Méndez MD [facility] Showing future appointments within next 90 days and meeting all other requirements Refused Prescriptions Disp Refills ??? buPROPion (WELLBUTRIN) 150 MG XL tablet [Pharmacy Med Name: BUPROPION HCL XL 150 MG TABLET] 90 Tablet 0 Sig: TAKE 1 TABLET BY MOUTH EVERY DAY IN THE MORNING Bupropion (6 Month Refill Only) Protocol Passed - 02/08/2023 12:25 AM Passed - Visit with relevant provider in past 6 months or upcoming 90 days Recent Visits Date Type Provider Dept 01/03/23 Office Visit Maggie Tolentino PAC [facility] 09/03/22 Office Visit John Méndez MD [facility] Showing recent visits within past 182 days and meeting all other requirements Future Appointments Date Type Provider Dept 04/04/23 Appointment John Méndez MD [facility] Showing future appointments within next 90 days and meeting all other requirements Passed - Has an encounter in the past 6 months with a depression or anxiety visit diagnosis Passed - Patient has established therapy with Bupropion for at least 6 months documented in this encounter Plan of Treatment Upcoming Encounters Date Type Department Care Team (Late st Contact Info) Description 11/02/2024 8:15 AM HIGH SCHOOL ASSISTANT PRINCIPAL [facility] [place] [facility] [place] [address] Dakota Fabian, LEGAL ACTIVITY ADJUDICATOR, BAKERY WORKER [address] [address] 11/26/2024 11:30 AM HIGH SCHOOL ASSISTANT PRINCIPAL [facility] [place] [facility] [place] [address] Maggie Tolentino, PAC [address] [place] [address] documented as of this encounter Visit Diagnoses Diagnosis Primary hypertension Unspecified essential hypertension documented in this encounter Additional Health Concerns Infection Onset Date Last Indicated Resolved Time MRSA 03/30/2020 03/30/2020 Assessment Noted Time PHQ-9 Depression Total Score: 0 01/04/20 23 2:56 PM CDT documented as of this encounter Care Teams Reservation Clerk Relationship Specialty Start Date End Date John Méndez MD PCP - General Family Medicine 09/28/19 04/26/24 documented as of this encounter
--- OUTSIDE RECORDS SUMMARY | 2024-10-20 03:51 | XMS_ITS | Encounter Summary ---
Author Organization [facility] Address 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 Requested Prescriptions Pending Prescriptions Disp Refills atorvastatin (LIPITOR) 20 MG Tablet [Pharmacy Med Name: ATORVASTATIN 20 MG TABLET] 90 Tablet 1 Sig: TAKE 1 TABLET BY MOUTH EVERY DAY IN THE EVENING Hmg CoA Reductase Inhibitors Protocol Passed - 07/03/2023 12:02 AM Passed - Visit with relevant provider in past 12 months or upcoming 90 days Recent Visits Date Type Provider Dept 02/20/23 Office Visit John Méndez MD [facility] 01/03/23 Office Visit Maggie Tolentino, [facility] 09/03/22 Office Visit John Méndez MD [facility] Showing recent visits within past 365 days and meeting all other requirements Future Appointments Date Type Provider Dept 08/26/23 Appointment John Méndez MD [facility] Showing future appointments within next 90 days and meeting all other requirements Passed - Lipid panel in past 12 months LDL Date Value Ref Range Status 09/03/2022 115 5 - 130 mg/dL Final HDL CHOLESTEROL Date Value Ref Range Status 09/03/2022 56.2 >40 mg/dL Final CHOLESTEROL Date Value Ref Range Status 09/03/2022 216 (H) <=200 mg/dL Final TRIGLYCERIDES Date Value Ref Range Status 09/03/2022 226 (H) <150 mg/dL Final VLDL Date Value Ref Range Status 09/03/2022 45 5 - 55 mg/dL Final CHOL/HDL RATIO Date Value Ref Range Status 09/03/2022 3.8 0.0 - 4.4 Final NON-HDL CHOLESTEROL Date Value Ref Range Status 09/03/2022 159.8 (H) <130 mg/dL Final Passed - CMP in past 12 months SODIUM Date Value Ref Range Status 09/03/2022 140 136 - 144 mmol/L Final POTASSIUM Date Value Ref Range Status 09/03/2022 3.7 3.5 - 5.1 mmol/L Final CHLORIDE Date Value Ref Range Status 09/03/2022 103 100 - 110 mmol/L Final CO2, VENOUS Date Value Ref Range Status 09/03/2022 28 22 - 32 mmol/L Final ANION GAP Date Value Ref Range Status 09/03/2022 12.7 8.0 - 20.0 mmol/L Final GLUCOSE Date Value Ref Range Status 09/03/2022 88 70 - 99 mg/dL Final BUN Date Value Ref Range Status 09/03/2022 12 6 - 20 mg/dL Final CREATININE, BLOOD Date Value Ref Range Status 09/03/2022 0.74 0.60 - 1.10 mg/dL Final BUN/CREATININE RATIO Date Value Ref Range Status 09/03/2022 16 12 - 20 ratio Final TOTAL PROTEIN Date Value Ref Range Status 09/03/2022 7.3 6.0 - 8.3 g/dL Final ALBUMIN Date Value Ref Range Status 09/03/2022 4.4 3.5 - 5.2 g/dL Final Comment: The colormetric methods used for the determination of Albumin may lead to falsely elevated test results in patients suffering from renal failure or insufficiency due to interference with other proteins. A/G RATIO Date Value Ref Range Status 09/03/2022 1.5 1.0 - 2.0 Final CALCIUM Date Value Ref Range Status 09/03/2022 9.4 8.9 - 10.3 mg/dL Final T BILI Date Value Ref Range Status 09/03/2022 <0.3 <=1.2 mg/dL Final SGOT (AST) Date Value Ref Range Status 09/03/2022 23 <=32 U/L Final SGPT (ALT) Date Value Ref Range Status 09/03/2022 16 <=41 U/L Final ALKALINE PHOSPHATASE Date Value Ref Range Status 09/03/2022 83 35 - 105 U/L Final GFR, EST. NONAFRICAN Date Value Ref Range Status 09/03/2022 >60 >=60 Final GFR, EST. Date Value Ref Range Status 09/03/2022 >60 >=60 Final GFR, ESTIMATED Date Value Ref Range Status 09/03/2022 >60 >=60 Final Comment: Creatinine Clearance is the preferred criteria for selecting drug dose adjustments in renally impaired patients. The GFR is provided as additional pertinent clinical information. GFR is reported in mL/min/1.73 sq m. Calculation based on the Chronic Kidney Disease Epidemiology Collaboration (CKD- EPI) equation refitwithout adjustment for race. IS THE PATIENT REQUIRED TO BE FASTING? Date Value Ref Range Status 09/03/2022 No Final escitalopram (LEXAPRO) 20 MG Tablet [Pharmacy Med Name: ESCITALOPRAM 20 MG TABLET] 90 Tablet 1 Sig: TAKE 1 TABLET BY MOUTH EVERY DAY SSRI (6 Month Refill Only) Protocol Failed - 07/03/2023 12:02 AM Failed - Has an encounter in the past 6 months with a depression, anxiety, adjustment disorder, OCD, or PTSD visit diagnosis Passed - Visit with relevant provider in past 6 months or upcoming 90 days Recent Visits Date Type Provider Dept 02/20/23 Office Visit John Méndez MD [facility] 01/03/23 Office Visit [facility] [place] Showing recent visits within past 182 days and meeting all other requirements Future Appointments Date Type Provider Dept 08/26/23 Appointment John Méndez MD [facility] Showing future appointments within next 90 days and meeting all other requirements Passed - Patient has established therapy with SSRI for at least 6 months buPROPion (WELLBUTRIN) 150 MG XL tablet [Pharmacy Med Name: BUPROPION HCL XL 150 MG TABLET] 90 Tablet 1 Sig: TAKE 1 TABLET BY MOUTH EVERY DAY IN THE MORNING Bupropion (6 Month Refill Only) Protocol Failed - 07/03/2023 12:02 AM Failed - Has an encounter in the past 6 months with a depression or anxiety visit diagnosis Passed - Visit with relevant provider in past 6 months or upcoming 90 days Recent Visits Date Type Provider Dept 02/20/23 Office Visit John Méndez MD [facility] 01/03/23 Office Visit Maggie Tolentino PAC [facility] [place] Showing recent visits within past 182 days and meeting all other requirements Future Appointments Date Type Provider Dept 08/26/23 Appointment John Méndez MD [facility] Showing future appointments within next 90 days and meeting all other requirements Passed - Patient has established therapy with Bupropion for at least 6 months documented in this encounter Plan of Treatment Upcoming Encounters Date Type Department Care Team (Late st Contact Info) Description 11/02/2024 8:15 AM JINRIKSHA DRIVER Office Visit [facility] [address] [place] [address] Dakota Fabian APRN, ROLL PICKER [address] [address] 11/26/2024 11:30 AM JINRIKSHA DRIVER [facility] [place] [address] Maggie Tolentino, PAC [address] [place] [address] documented as of this encounter Visit Diagnoses Diagnosis High cholesterol Pure hypercholesterolemia documented in this encounter Additional Health Concerns Infection Onset Date Last Indicated Resolved Time MRSA 03/30/2020 03/30/2020 Assessment Noted Time PHQ-9 Depression Total Score: 0 01/04/20 23 2:56 PM CDT documented as of this encounter Care Teams Court Worker Relationship Specialty Start Date End Date John Méndez MD PCP - General Family Medicine 09/28/19 04/26/24 documented as of this encounter
--- OUTSIDE RECORDS SUMMARY | 2024-10-20 03:51 | XMS_ITS | Encounter Summary ---
Author Organization [facility] Address [address] [facility] 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 Requested Prescriptions Pending Prescriptions Disp Refills amLODIPine (NORVASC) 10 MG Tablet [Pharmacy Med Name: AMLODIPINE BESYLATE 10 MG TAB] 90 Tablet 2 Sig: TAKE 1 TABLET BY MOUTH EVERY DAY Calcium-Channel Blockers Protocol Passed - 11/05/2023 2:49 PM Passed - BP on record in the past year Clinician-entered: BP Readings from Last 3 Encounters: 08/29/23 (!) 173/105 02/20/23 136/74 01/03/23 108/80 Patient-entered: No data recorded Passed - Visit with relevant provider in past 12 months or upcoming 90 days Recent Visits Date Type Provider Dept 02/20/23 Office Visit John Méndez MD [facility] 01/03/23 Office Visit Maggie Tolentino PAC [facility] [place] Showing recent visits within past 365 days and meeting all other requirements Future Appointments No visits were found meeting these conditions. Showing future appointments within next 90 days and meeting all other requirements buPROPion (WELLBUTRIN) 150 MG XL tablet [Pharmacy Med Name: BUPROPION HCL XL 150 MG TABLET] 90 Tablet 1 Sig: TAKE 1 TABLET BY MOUTH EVERY DAY IN THE MORNING Bupropion (6 Month Refill Only) Protocol Failed - 11/05/2023 2:49 PM Failed - Visit with relevant provider in past 6 months or upcoming 90 days Recent Visits No visits were found meeting these conditions. Showing recent visits within past 182 days and meeting all other requirements Future Appointments No visits were found meeting these conditions. Showing future appointments within next 90 days and meeting all other requirements Failed - Has an encounter in the past 6 months with a depression or anxiety visit diagnosis Passed - Patient has established therapy with Bupropion for at least 6 months atorvastatin (LIPITOR) 20 MG Tablet [Pharmacy Med Name: ATORVASTATIN 20 MG TABLET] 90 Tablet 1 Sig: TAKE 1 TABLET BY MOUTH EVERY DAY IN THE EVENING Hmg CoA Reductase Inhibitors Protocol Failed - 11/05/2023 2:49 PM Failed - Lipid panel in past 12 months [...] Status 09/03/2022 159.8 (H) <130 mg/dL Final Failed - CMP in past 12 months SODIUM [...] Value Ref Range Status 09/03/2022 No Final Passed - Visit with relevant provider in past 12 months or upcoming 90 days Recent Visits Date Type Provider Dept 02/20/23 Office [facility] [place] 01/03/23 Office Visit Maggie Tolentino PAC [facility] [place] Showing recent visits within past 365 days and meeting all other requirements Future Appointments No visits were found meeting these conditions. Showing future appointments within next 90 days and meeting all other requirements E GRADER documented in this encounter Plan of Treatment Upcoming Encounters Date Type Department Care Team (Late st Contact Info) Description 11/02/2024 8:15 AM STONE GRADER Office Visit [facility] #2 [place] [address] Dakota Fabian APRN, CASING FLUID TENDER [address] [address] 11/26/2024 11:30 AM STONE GRADER Office Visit [facility] #2 [place] [address] Maggie Tolentino PAC [address] [place] [address] documented as of this encounter Visit Diagnoses Diagnosis Primary hypertension Unspecified essential hypertension High cholesterol Pure hypercholesterolemia documented in this encounter Additional Health Concerns Infection Onset Date Last Indicated Resolved Time MRSA 03/30/2020 03/30/2020 COVID - 19 09/11/2024 09/11/2024 09/11/2024 7:21 PM STONE GRADER Assessment Noted Time PHQ-9 Depression Total Score: 0 01/04/20 23 2:56 PM CDT documented as of this encounter Care Teams Ostomy Nurse Relationship Specialty Start Date End Date John Méndez MD PCP - General Family Medicine 09/28/19 04/26/24 Dakota Fabian APRN, CASING FLUID TENDER [address] [address] PCP - General Advanced Practice Nurse 04/27/24 documented as of this encounter
--- OUTSIDE RECORDS SUMMARY | 2024-10-20 03:51 | XMS_ITS | Encounter Summary ---
Author Organization [employer] Care Team Providers Care Brake Assembler Name Role Phone Dakota Fabian APRN, REGULATORY LEAD Primary Care Pr ovider Encounter Details Date Type Department Care Team (Latest Contact Info) Description 05/10/2024 Travel Social History Tobacco Use Types Packs/Day Years Used Date Smoking Tobacco: Never Smokeless Tobacco: Never Alcohol Use Standard Drinks/Week Comments No 0 (1 standard drink = 0.6 oz pur e alcohol) [facility] Utilities Answer Date Recorded In the past 12 months has [employer] electric, gas, oil, or water company threatened [...] often do you attend chur ch or zoroastrian services? 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 Not on file documented as of this encounter Plan of Treatment Upcoming Encounters Date Type Department Care Team (Late st Contact Info) Description 11/02/2024 8:15 AM GROCERY STORE ASSOCIATE Office Visit [facility] #2 [place] [address] Dakota Fabian APRN, REGULATORY LEAD [address] [address] 11/26/2024 11:30 AM GROCERY STORE ASSOCIATE Office Visit [facility] #2 [place] [address] Maggie Tolentino PAC #[address] [place] [address] documented as of this encounter Visit Diagnoses Not on filedocumented in this encounter Additional Health Concerns Infection Onset Date Last Indicated Resolved Time MRSA 03/30/2020 03/30/2020 Assessment Noted Time PHQ-9 Depression Total Score: 0 01/04/20 2:56 PM CDT documented as of this encounter Care Teams Brake Assembler Relationship Specialty Start Date End Date Dakota Fabian, BRIQUETTE OPERATOR, REGULATORY LEAD #[address] [address] PCP - General Advanced Practice Nurse 04/27/24 documented as of this encounter
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
--- OUTSIDE RECORDS SUMMARY | 2024-10-20 03:51 | XMS_ITS | Encounter Summary ---
Author Organization [facility] Address [address] [facility] 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 No / Unsure 01/03/2023 2:54 PM CDT documented as of this encounter Miscellaneous Notes * Telephone Encounter - Francisca Martin RN - 01/06/2023 7:01 PM CDT Patient calling to have Rx for Tylenol #3 sent to [facility]. States [facility] does not have it in stock. Please advise. * Telephone Encounter - Hilda Newton RN - 01/06/2023 10:53 AM CDT PDMP 12/10/22 #90 Medication failed the protocol, provider to review and approve the medication order if appropriate. Requested Prescriptions Pending Prescriptions Disp Refills acetaminophen-codeine (TYLENOL #3) 300-30 MG Tablet [Pharmacy Med Name: ACETAMINOPHEN-COD #3 TABLET] 90 Tablet 0 Sig: TAKE 1 TABLET BY MOUTH 3 TIMES A DAY NEEDED FOR SEVERE PAIN. Not Delegated - Opioid Combinations Protocol Failed - 01/04/2023 10:46 PM Failed - This refill cannot be delegated [...] st Contact Info) Description 11/02/2024 8:15 AM BOOM MAN Office Visit [facility] #2 [place] [address] Dakota Fabian APRN, DIRECTOR PERIOPERATIVE #[address] [address] 11/26/2024 11:30 AM BOOM MAN Office Visit [facility] [address] [place] [address] Maggie Tolentino, PAC [address] [place] [address] documented as of this encounter Visit Diagnoses Diagnosis Sacroiliac joint dysfunction of both sides Disorders of sacrum Degenerative lumbar disc Degeneration of lumbar or lumbosacral intervertebral disc documented in this encounter Additional Health Concerns Infection Onset Date Last Indicated Resolved Time MRSA 03/30/2020 03/30/2020 COVID - 19 09/11/2024 09/11/2024 09/11/2024 7:21 PM BOOM MAN Assessment Noted Time PHQ-9 Depression Total Score: 0 01/04/20 23 2:56 PM CDT documented as of this encounter Care Teams Warehouse Laborer Relationship Specialty Start Date End Date John Méndez MD PCP - General Family Medicine 09/28/19 04/26/24 Dakota Fabian, BAT CARRIER, DIRECTOR PERIOPERATIVE #[address] [address] PCP - General Advanced Practice Nurse 04/27/24 documented as of this encounter
--- OUTSIDE RECORDS SUMMARY | 2024-10-20 03:51 | XMS_ITS | Encounter Summary ---
Author Organization [facility] Address [address] 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 Not on file documented as of this encounter Miscellaneous Notes * Telephone Encounter - Cathy Cedillo RN - 02/08/2023 9:06 AM CDT Opened in error See 02-04-23 encounter documented in this encounter Plan of Treatment Upcoming Encounters Date Type Department Care Team (Late st Contact Info) Description 11/02/2024 8:15 AM SENIOR COUNSEL Office Visit [facility] [address] [place] [address] Dakota Fabian, RN VISITING, DIALS INSPECTOR #[address] [address] 11/26/2024 11:30 AM SENIOR COUNSEL Office Visit [facility] [address]2 [facility] [place] [address] Maggie Tolentino, PAC [address] [place] [address] documented as of this encounter Visit Diagnoses Not on filedocumented in this encounter Additional Health Concerns Infection Onset Date Last Indicated Resolved Time MRSA 03/30/2020 03/30/2020 Assessment Noted Time PHQ-9 Depression Total Score: 0 01/04/20 23 2:56 PM CDT documented as of this encounter Care Teams Mail Carrier Technician Relationship Specialty Start Date End Date John Méndez MD PCP - General Family Medicine 09/28/19 04/26/24 documented as of this encounter
--- OUTSIDE RECORDS SUMMARY | 2024-10-20 03:51 | XMS_ITS | Encounter Summary ---
Author Organization [facility] Address [address] 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 Requested Prescriptions Pending Prescriptions Disp Refills buPROPion (WELLBUTRIN) 150 MG XL tablet [Pharmacy Med Name: BUPROPION HCL XL 150 MG TABLET] 90 Tablet 0 Sig: TAKE 1 TABLET BY MOUTH EVERY DAY IN THE MORNING Bupropion (6 Month Refill Only) Protocol Failed - 04/05/2023 9:45 PM Failed - Has an encounter in the past 6 months with a depression or anxiety visit diagnosis Passed - Visit with relevant provider in past 6 months or upcoming 90 days Recent Visits Date Type Provider Dept 02/20/23 Office Visit [facility] 01/03/23 Office Visit Maggie Tolentino PAC [facility] Showing recent visits within past 182 days [...] st Contact Info) Description 11/02/2024 8:15 AM SHROUD LINE TIER Office Visit [facility] [address] [place] [address] Dakota Fabian, DAIRY AND FOOD LABORATORY ASSISTANT, UPTWISTER TENDER #[address] [address] 11/26/2024 11:30 AM SHROUD LINE TIER Office Visit [facility] [address] [place] [address] Maggie Tolentino, MILTON [address] [place] [address] documented as of this encounter Visit Diagnoses Not on filedocumented in this encounter Additional Health Concerns Infection Onset Date Last Indicated Resolved Time MRSA 03/30/2020 03/30/2020 Assessment Noted Time PHQ-9 Depression Total Score: 0 01/04/20 23 2:56 PM CDT documented as of this encounter Care Teams Library Circulation Department Chief Relationship Specialty Start Date End Date John Méndez MD PCP - General Family Medicine 09/28/19 04/26/24 documented as of this encounter
--- OUTSIDE RECORDS SUMMARY | 2024-10-20 03:51 | XMS_ITS | Encounter Summary ---
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 Not on file documented as of this encounter Plan of Treatment Upcoming Encounters Date Type Department Care Team (Late st Contact Info) Description 11/02/2024 8:15 AM ETL INFORMATICA ARCHITECT Office Visit [facility] Medical Group - Family Medicine [facility] [address] [place] [address] Dakota Fabian, HAND THERAPIST, PIANO ACCOMPANIST [address] [address] 11/26/2024 11:30 AM ETL INFORMATICA ARCHITECT Office Visit [facility] [place] [address] [place] [address] Maggie Tolentino, PAC [address] [place] [address] documented as of this encounter Visit Diagnoses Not on filedocumented in this encounter Additional Health Concerns Infection Onset Date Last Indicated Resolved Time MRSA 03/30/2020 03/30/2020 Assessment Noted Time PHQ-9 Depression Total Score: 0 01/04/20 23 2:56 PM CDT documented as of this encounter Care Teams Heel Layer Relationship Specialty Start Date End Date John Méndez MD PCP - General Family Medicine 09/28/19 04/26/24 documented as of this encounter
--- OUTSIDE RECORDS SUMMARY | 2024-10-20 03:51 | XMS_ITS | Encounter Summary ---
Author Organization [facility] Address [address] [place] [address] Phone Care Team Providers Care Airport Operations Crew Member Name Role Phone Dakota Fabian APRN, CNP Primary Care Pr ovider Reason for Visit * Reason Onset Date Comments Medication Refill 05/07/2024 Encounter Details Date Type Department Care Team (Late st Contact Info) Description 05/07/2024 Refill [facility] Medical Group - Family Medicine [facility] [address] [place] [address] Dakota Fabian APRN, MIGUEL ANGEL #[address] [address] Medication Refill Social History Tobacco Use Types Packs/Day Years Used Date Smoking Tobacco: Never Smokeless Tobacco: Never Alcohol Use Standard Drinks/Week Comments No 0 (1 standard drink = 0.6 oz pur e alcohol) [facility] Utilities Answer Date Recorded In the past 12 months has [employer] electric, gas, oil, or water company threatened [...] often do you attend chur ch or taoism services? 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 Requested Prescriptions Pending Prescriptions Disp Refills tiZANidine (ZANAFLEX) 4 MG Tablet 30 Tablet 2 Sig: Take 1 Tablet by mouth nightly as needed for Muscle spasms. Not Delegated - Muscle Relaxants Protocol Failed - 05/07/2024 2:56 PM Failed - This refill cannot be delegated Failed - ALT less than 90 and AST less than 55 on record in past 12 months SGOT (AST) Date Value Ref Range Status 09/03/2022 23 <=32 U/L Final SGPT (ALT) Date Value Ref Range Status 09/03/2022 16 <=41 U/L Final Passed - Visit with relevant provider in past 12 months or upcoming 90 days Recent Visits Date Type Provider Dept 04/27/24 Office Visit Dakota Fabian, THOM, TREASURER [employer] [facility] [place] 03/16/24 Office Visit Dakota Fabian APRN, MIGUEL ANGEL [facility] Showing recent visits within past 365 days and meeting all other requirements Future Appointments No visits were found meeting these conditions. Showing future appointments within next 90 days and meeting all other requirements * Telephone Encounter - Annie Prieto MA - 05/07/2024 2:54 PM CDT [facility] fax request: Tizanidine Hcl 4 mg tabs Take one tab by mouth nightly as needed for musclespasms. 30 quant documented in this encounter Plan of Treatment Upcoming Encounters Date Type Department Care Team (Late st Contact Info) Description 11/02/2024 8:15 AM MATH SPECIALIST Office Visit [facility] #[address] [place] [address] Dakota Fabian APRN, TREASURER [employer] #[address] [address] 11/26/2024 11:30 AM MATH SPECIALIST Office Visit [facility] #2 [facility] [place] [address] Maggie Tolentino, MILTON [address] [place] [address] documented as of this encounter Visit Diagnoses Diagnosis Degenerative lumbar disc Degeneration of lumbar or lumbosacral intervertebral disc documented in this encounter Additional Health Concerns Infection Onset Date Last Indicated Resolved Time MRSA 03/30/2020 03/30/2020 Assessment Noted Time PHQ-9 Depression Total Score: 0 01/04/20 23 2:56 PM CDT documented as of this encounter Care Teams Airport Operations Crew Member Relationship Specialty Start Date End Date Dakota Fabian APRN, MIGUEL ANGEL #[address] [address] PCP - General Advanced Practice Nurse 04/27/24 documented as of this encounter
--- OUTSIDE RECORDS SUMMARY | 2024-10-20 03:51 | XMS_ITS | Encounter Summary ---
Author Organization [facility] Address [address] [facility] [place] [address] Phone Care Team Providers Care Obedience Trainer Name Role Phone John Méndez MD Primary Care Provider [phone] Reason for Visit * Auth/Cert (Routine) Specialty Diagnoses / Procedures Referred By Contaliza t Referred To Contact Diagnoses SCREENING Procedures COLONOSCOPY Rachelle Hood MD [address] [place] [address] Phone: tel: fax: Referral ID Status Reason Start Date Expiration Date Visits Re quested Visits Authorized [id number] 1 1 Encounter Details Date Type Department Care Team (Late st Contact Info) Description 03/03/2024 10:40 AM CDT Ancillary Procedure [facility] [address] [place] [id number] Rachelle Hood MD [address] [place] [address] Social History Tobacco Use Types Packs/Day Years [...] 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 Not on file documented as of this encounter Plan of Treatment Upcoming Encounters Date Type Department Care Team (Late st Contact Info) Description 11/02/2024 8:15 AM MANAGER SUMMER Office Visit [facility] #[address] [place] [address] Dakota Fabian APRN, AIRLINE TICKET AGENT #[address] [address] 11/26/2024 11:30 AM MANAGER SUMMER Office Visit [facility] [address] [place] [address] Maggie Tolentino, PAC [address] [place] [address] documented as of this encounter Procedures Procedure Name Priority Date/Time Associated Diagnosis Comments GI IMAGING - COLONOSCOPY Routine 024 10:36 AM CDT documented in this encounter Results * GI IMAGING - COLONOSCOPY (03/03/2024 10:36 AM CDT) Rachelle Hood MD IMG DIAGNOSTIC ORDERABLES Final Result documented in this encounter Visit Diagnoses Not on filedocumented in this encounter Additional Health Concerns Infection Onset Date Last Indicated Resolved Time MRSA 03/30/2020 03/30/2020 Assessment Noted Time PHQ-9 Depression Total Score: 0 01/04/20 2:56 PM CDT documented as of this encounter Care Teams Obedience Trainer Relationship Specialty Start Date End Date John Méndez MD PCP - General Family Medicine 09/28/19 04/26/24 documented as of this encounter
--- OUTSIDE RECORDS SUMMARY | 2024-10-20 03:51 | XMS_ITS | Encounter Summary ---
Author Organization [facility] Address [address] [place] [address] Phone Care Team Providers Care Strap Buckler Name Role Phone John Méndez MD Primary Care Provider [phone] Reason for Referral * Radiology Services (Routine) - Closed Specialty Diagnoses / Procedures Referred By Magui jacobo Referred To Contact Radiology Procedures GI IMAGING - COLONOSCOPY Rachelle Hood MD [address] [place] [address] Phone: tel: fax: Referral ID Status Reason Start Date Expiration Date Visits Re quested Visits Authorized [id number] Closed 03/03/2024 1 1 Reason for Visit * Auth/Cert (Routine) Specialty Diagnoses / Procedures Referred By Magui jacobo Referred To Contact Diagnoses SCREENING Procedures COLONOSCOPY Rachelle Hood MD [address] [place] [address] Phone: tel: fax: Referral ID Status Reason Start Date Expiration Date Visits Re quested Visits Authorized [id number] 1 1 Encounter Details Date Type Department Care Team (Latest Contact Info) Description 03/03/2024 10:23 AM CDT - 03/03/2024 12:30 PM CDT Hospital Encounter [facility] GI Lab Preop/Pacu II [address] [place] [id number] Rachelle Hood MD [address] [place] [address] Discharge Disposition: Discharged to home or Selfcare [...] 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 Not on file documented as of this encounter Last Filed Vital Signs Vital Sign Reading Time Taken Comments Blood Pressure 185/118 03/03/2024 11:14 AM CDT Pulse 75 03/03/2024 11:14 AM CDT Temperature 37 ??C (98.6 ??F) 03/03/2024 11:14 AM CDT Respiratory Rate 17 03/03/2024 11:14 AM CDT Oxygen Saturation 96% 03/03/2024 11:14 AM CDT Inhaled Oxygen Concentration - - Weight 90.7 kg (200 lb) 01/08/2024 4:05 PM CDT Height 158.8 cm (5' 2.5 ) 01/08/2024 4:05 PM CDT Body Mass Index 36 01/08/2024 4:05 PM CDT documented in this encounter Medications at Time of Discharge amLODIPine (NORVASC) 10 MG TabletIndications: Primary hypertension TAKE 1 TABLET BY MOUTH EVERY DAY 90 Tablet 2 11/10/2023 acetaminophen-code ine (TYLENOL #3) 300-30 MG TabletIndications: [...] FOR WHEEZE 18 g 1 11/05/2022 4 atorvastatin (LIPITOR) 20 MG TabletIndications: High cholesterol TAKE 1 TABLET BY MOUTH EVERY DAY IN THE EVENING 90 Tablet 1 11/10/2023 4 buPROPion (WELLBUTRIN) 150 MG XL tablet TAKE 1 TABLET BY MOUTH EVERY DAY IN THE MORNING 90 Tablet 1 11/10/2023 4 celecoxib (CeleBREX) 200 MG CapsuleIndications :Degenerative lumbar disc Take 1 Capsule by mouth daily. 90 Capsule 3 09/03/2022 4 cetirizine (ZyrTEC) 10 MG TabletIndications: Chronic sinusitis, unspecified location TAKE 1 TABLET BY MOUTH EVERY DAY 30 Tablet 5 06/17/2023 4 escitalopram (LEXAPRO) 20 MG Tablet TAKE 1 TABLET BY MOUTH EVERY DAY 90 Tablet 1 12/29/2023 4 losartan (COZAAR) 50 MG Tablet Take [...] 08/29/2023 4 documented as of this encounter Miscellaneous Notes * Plan of Care - Melinda Byrd RN - 03/03/2024 10:36 AM CDT Problem: Adult Inpatient Plan of Care Goal: Plan of Care Review Outcome: Ongoing (see interventions/notes) Flowsheets (Taken 03/03/2024 1036) Plan of Care Reviewed With: patient Progress: progress toward functional goals as expected Today's Goal: To go home. Outcome Evaluation: Ready for OR. Does the patient need assistance with discharge and/or transitioning to the next level of care?: No, no needs anticipated Goal: Patient-Specific Goal (Individualized) Outcome: Ongoing (see interventions/notes) Goal: Absence of Hospital-Acquired Illness or Injury Outcome: Ongoing (see interventions/notes) Goal: Optimal Comfort and Wellbeing Outcome: Ongoing (see interventions/notes) Goal: Readiness for Transition of Care Outcome: Ongoing (see interventions/notes) Problem: Surgery Nonspecified Goal: Anesthesia/Sedation Recovery Outcome: Ongoing (see interventions/notes) * Interdisciplinary - Sarah Arriaga RN - 01/08/2024 4:05 PM CDT [facility] GI TEACHING Patient Name: Melinda Magana Huankaylirobby : 1975 CSN#: [id number] Person Educated Patient Ready to Learn Yes Teaching Method Phone The Day of Procedure: Call your physician if your physical condition changes (cold, fever, flu). Do not come to the hospital without first calling your physician. Follow your surgeon's instructions regarding your diet, bowel prep, and medications if applicable. If your have any questions, please contact your surgeon's office. No alcohol and no smoking for 24 hrs prior to procedure if applicable. Wear comfortable, loose fitting clothing. Instruction to leave all jewelry at home including wedding/engagement rings or any body piercing jewelry. Leave all valuables at home. Children ages under 16 must be accompanied by a parent or legal guardian in the hospital at all times. Detailed instructions given for arrival location and parking. Arrive for your procedure as instructed by the [facility]. Go to Registration the morning of the procedure to check in. Arrange for a responsible person to accompany you and drive you home following your procedure. Follow directions regarding which medications to take or hold. It is very important to follow directions on diabetic medication or blood thinners from your surgeon's office. When you come to the hospital only 1 adult over the age of 16 will be allowed to accompany you to the [facility]. No children under the age of 16 will be allowed in the [facility] unless they are the patient. If the patient chooses to bring their children under the age of 16, an adult must accompany those children in the surgery waiting room and cannot leave them unattended. During the flu season: refer to the visitation restriction guidelines implemented during that season if applicable. Fall Prevention Teaching The Day of Surgery: Your safety while you are in the hospital is very important to us. Following surgery, you might be at increased risk for falling for several reasons: -The hospital environment is unfamiliar. It???s not the same as being at home -You may be weaker than you realize. -You may be connected to lines or equipment that can cause you to trip. -You may be on medications that make you drowsy or dizzy. We know this can happen especially with pain medication and anesthesia. We want to partner with you in the hospital to make sure you are safe -Please do not feel hesitant to ask for help while in the hospital. You will - need extra help untilyou get stronger especially with walking and using the bathroom. -Pay close attention to what the doctors and nurses tell you about your risk of falling. -A fall can mean a longer hospital stay. Also, injuries from a fall can affect your health for the rest of your life. Some things the nurses may do to keep you safe are: -Have you use the call light for help whenever you get out of bed. -Wear non-skid slippers to keep you from slipping on the floors -Use a special belt that wraps around your waist so we can help steady you when you walk -Activate an alarm on your bed so we know if you are getting up in case you forget to use your calllight -Stay in the bathroom with you in case you become dizzy or light headed Response to Teaching: Verbalizes Understanding Patient assessed for foreign language teacher during the preop interview and appropriate interventions taken if applicable. documented in this encounter Plan of Treatment Upcoming Encounters Date Type Department Care Team (Late st Contact Info) Description 11/02/2024 8:15 AM PLANT UTILITY PERSON Office Visit [facility] [address] [place] [address] Dakota Fabian APRN, STEAM CLOTHES PRESS OPERATOR #[address] [address] 11/26/2024 11:30 AM PLANT UTILITY PERSON Office Visit [facility] [address] [place] [address] Maggie Tolentino, PAC [address] [place] [address] documented as of this encounter Procedures Procedure Name Priority Date/Time Associated Diagnosis Comments GI IMAGING - COLONOSCOPY Routine 024 10:36 AM CDT documented in this encounter Results * GI IMAGING - COLONOSCOPY (03/03/2024 10:36 AM CDT) Rachelle Hood MD IMG DIAGNOSTIC ORDERABLES Final Result documented in this encounter Visit Diagnoses Not on filedocumented in this encounter Administered Medications Inactive Administered Medications - up to 3 most recent administrations Medication Order MAR Action Action Date Dose Rate Site lactated ringers infusion at 20 mL/hr, Intravenous, CONTINUOUS, Starting on Fri03/03/24 at 1130, Until Pamela 03/04/24 at 1016, PRE-OP (SURGERY) ondansetron (ZOFRAN) injection 4 mg 4 mg, Intravenous, ONCE PRN, 1 dose, Starting on Fri03/03/24 at 1036, Until Pamela 03/04/24 at 1016, Nausea - 1st line, PRE-OP (SURGERY) documented in this encounter Active and Recently Administered Medications Times are shown in CDT. Continuous Medication Order 03/01/2024 03/02/2024 03/03/2024 lactated ringers infusion at 20 mL/hr, Intravenous, CONTINUOUS, Starting on Fri03/03/24 at 1130, Until Pamela 03/04/24 at 1016, PRE-OP (SURGERY) 1130 (Due) PRN Medication Order 03/01/2024 03/02/2024 03/03/2024 ondansetron (ZOFRAN) injection 4 mg 4 mg, Intravenous, ONCE PRN, 1 dose, Starting on Fri03/03/24 at 1036, Until Pamela 03/04/24 at 1016, Nausea - 1st line, PRE-OP (SURGERY) documented in this encounter Additional Health Concerns Infection Onset Date Last Indicated Resolved Time MRSA 03/30/2020 03/30/2020 Assessment Noted Time PHQ-9 Depression Total Score: 0 01/04/20 2:56 PM CDT documented as of this encounter Care Teams Strap Buckler Relationship Specialty Start Date End Date John Méndez MD PCP - General Family Medicine 09/28/19 04/26/24 documented as of this encounter
--- OUTSIDE RECORDS SUMMARY | 2024-10-20 03:51 | XMS_ITS | Encounter Summary ---
Author Organization [employer] Care Team Providers Care Assistant To The Ceo Name Role Phone Dakota Fabian APRN, BEHAVIORAL HEALTH CARE MANAGER Primary Care Pr ovider Encounter Details Date Type Department Care Team (Latest Contact Info) Description 04/27/2024 Travel Social History Tobacco Use Types Packs/Day Years Used Date Smoking Tobacco: Never Smokeless Tobacco: Never Alcohol Use Standard Drinks/Week Comments No 0 (1 standard drink = 0.6 oz pur e alcohol) [facility] Utilities Answer Date Recorded In the past 12 months has [employer] electric, gas, oil, or water company threatened [...] often do you attend chur ch or restorationism services? 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 Question Answer Date of Assessment Author Patient Health Questionnaire -2 Score 0 04/27/2024 3:14 PM Lisy France CMA documented as of this encounter Plan of Treatment Upcoming Encounters Date Type Department Care Team (Late st Contact Info) Description 11/02/2024 8:15 AM DESKTOP SUPPORT SPECIALIST Office Visit [facility] [address] [place] [address] Dakota Fabian APRN, BEHAVIORAL HEALTH CARE MANAGER [address] [address] 11/26/2024 11:30 AM DESKTOP SUPPORT SPECIALIST Office Visit [facility] [address] [place] [address] Maggie Tolentino, [place] [address] [place] [address] documented as of this encounter Visit Diagnoses Not on filedocumented in this encounter Additional Health Concerns Infection Onset Date Last Indicated Resolved Time MRSA 03/30/2020 03/30/2020 Assessment Noted Time PHQ-9 Depression Total Score: 0 01/04/20 23 2:56 PM CDT documented as of this encounter Care Teams Assistant To The Ceo Relationship Specialty Start Date End Date Dakota Fabian APRN, BEHAVIORAL HEALTH CARE MANAGER [address] [address] PCP - General Advanced Practice Nurse 04/27/24 documented as of this encounter
--- OUTSIDE RECORDS SUMMARY | 2024-10-20 03:51 | XMS_ITS | Encounter Summary ---
Author Organization [facility] Address [address] 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 Reports it returned 01/04/2024. States since then she has had frequent diarrhea. Reports she went around 15-20 times today. Denies abdominal pain, but states she has intermittent cramping. Patient is also feeling nauseous. ASSESSMENT: Symptom Description / Location: Diarrhea, abdominal cramping, nausea Denies: blood in stool, extreme weakness RECOMMENDATION: See care advice and disposition for Guideline First positive answer recorded, all responses to prior questions were negative. If symptoms increase, change or if new symptoms develop, call your HCP or call back. Recommendations were based on caller information and is not a diagnosis. Verified and reviewed all triage information with caller. Reason for Disposition [1] SEVERE diarrhea (e.g., 7 or more times / day more than normal) AND [2] present > 24 hours (1day) Protocols used: [id number] Patient verbalized understanding to care advice given. Patient will go to [facility] for evaluation. documented in this encounter Plan of Treatment Upcoming Encounters Date Type Department Care Team (Late st Contact Info) Description 11/02/2024 8:15 AM FURNITURE SALESPERSON Office Visit [facility] [address] [place] [address] Dakota Fabian, MD UROLOGIST, FINANCE MANAGER #[address] [address] 11/26/2024 11:30 AM FURNITURE SALESPERSON Office Visit [facility] [address] [place] [address] Maggie Tolentino, PAC [address] [place] [address] documented as of this encounter Visit Diagnoses Not on filedocumented in this encounter Additional Health Concerns Infection Onset Date Last Indicated Resolved Time MRSA 03/30/2020 03/30/2020 Assessment Noted Time PHQ-9 Depression Total Score: 0 01/04/20 23 2:56 PM CDT documented as of this encounter Care Teams Stockbroking Dealer Relationship Specialty Start Date End Date John Méndez MD PCP - General Family Medicine 09/28/19 04/26/24 documented as of this encounter
--- OUTSIDE RECORDS SUMMARY | 2024-10-20 03:51 | XMS_ITS | Encounter Summary ---
Author Organization [employer] Care Team Providers Care Clinical Informaticist Name Role Phone John Méndez MD Primary Care Provider [phone] Encounter Details Date Type Department Care Team (Latest Contact Info) Description 03/16/2024 Travel Social History Tobacco Use Types Packs/Day Years Used Date Smoking Tobacco: Never Smokeless Tobacco: Never Alcohol Use Standard Drinks/Week Comments No 0 (1 standard drink = 0.6 oz pur e alcohol) [facility] Utilities Answer Date Recorded In the past 12 months has [employer] electric, gas, oil, or water company threatened [...] How often do you attend chur or bahai services? More than 4 times per year 03/16/2024 Do you belong to any clubs o r organizations such as jewish groups, unions, fraternal or athletic groups, or [...] Total Score - Questions 1-9 0 12/12 [facility] of Occupat ional Health - Occupational Stress [...] place to sleep or slept in a residential (including now)? 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 Answer Date of Assessment Author Never 03/16/2024 3:45 PM CDT [facility] [place] * Question Answer Date of Assessment Author Little interest or pleasure in doing things Not at all 03/16/2024 4:00 PM AUDRAT Lisy Blount CMA Feeling down, depressed, or hopeless Not at all 03/16/2024 4:00 PM CDT Lisy Blount CMA * Over the past 2 weeks, how often have you been bothered by any of the following problems? Question Answer Date of Assessment Author Patient Health Questionnaire -2 Score 0 03/16/2024 4:00 PM CDT Lisy Blount CMA documented as of this encounter Plan of Treatment Upcoming Encounters Date Type Department Care Team (Late st Contact Info) Description 11/02/2024 8:15 AM PARAOPTOMETRIC Office Visit [facility] [address] [facility] [address] Dakota Fabian APRN, DIRECTOR SECURITY MANAGEMENT #[address] [address] 11/26/2024 11:30 AM PARAOPTOMETRIC Office Visit [facility] [address] [facility] [address] Maggie Tolentino, PAC [address] [place] [address] documented as of this encounter Visit Diagnoses Not on filedocumented in this encounter Additional Health Concerns Infection Onset Date Last Indicated Resolved Time MRSA 03/30/2020 03/30/2020 Assessment Noted Time PHQ-9 Depression Total Score: 0 01/04/20 23 2:56 PM CDT documented as of this encounter Care Teams Clinical Informaticist Relationship Specialty Start Date End Date John Méndez MD PCP - General Family Medicine 09/28/19 04/26/24 documented as of this encounter
--- OUTSIDE RECORDS SUMMARY | 2024-10-20 03:51 | XMS_ITS | Encounter Summary ---
Author Organization [facility] Address [address] 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 Requested Prescriptions Pending Prescriptions Disp Refills escitalopram (LEXAPRO) 20 MG Tablet [Pharmacy Med Name: ESCITALOPRAM 20 MG TABLET] 90 Tablet 1 Sig: TAKE 1 TABLET BY MOUTH EVERY DAY SSRI (6 Month Refill Only) Protocol Failed - 12/29/2023 12:01 AM Failed - Visit with relevant provider in [...] OCD, or PTSD visit diagnosis Passed - Patient has established therapy with SSRI for at least 6 months documented in this encounter Plan of Treatment Upcoming Encounters Date Type Department Care Team (Late st Contact Info) Description 11/02/2024 8:15 AM BUFFET RUNNER Office Visit [facility] [address]2 [place] [address] Dakota Fabian APRN, CRACKER DOUGH MIXER #[address] [address] 11/26/2024 11:30 AM BUFFET RUNNER Office Visit [facility] [address] [place] [address] Maggie Tolentino, PAC [address] [place] [address] documented as of this encounter Visit Diagnoses Not on filedocumented in this encounter Additional Health Concerns Infection Onset Date Last Indicated Resolved Time MRSA 03/30/2020 03/30/2020 COVID - 19 09/11/2024 09/11/2024 09/11/2024 7:21 PM BUFFET RUNNER Assessment Noted Time PHQ-9 Depression Total Score: 0 01/04/20 23 2:56 PM CDT documented as of this encounter Care Teams County Home Demonstrator Relationship Specialty Start Date End Date John Méndez MD PCP - General Family Medicine 09/28/19 04/26/24 Dakota Fabian, INTELLIGENCE OFFICER BASIC, CRACKER DOUGH MIXER [address] [place] [address] PCP - General Advanced Practice Nurse 04/27/24 documented as of this encounter
--- OUTSIDE RECORDS SUMMARY | 2024-10-20 03:51 | XMS_ITS | Encounter Summary ---
Author Organization [facility] Address [address] 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 So according to the med use agreement, it will not be refilled. * Telephone Encounter - Hair Eller RN - 02/11/2023 11:44 AM CDT Patient is calling back for a refill of her Tylenol #3. States that the drug test must have been invalid as she is only taking tylenol and her prescribed medications. She is willing to come back in to retake the test. States that she spoke to nurse who states that it would be refilled. Please advise. Thank you. * Telephone Encounter - Cathy Cedillo RN - 02/08/2023 9:12 AM CDT Patient calling back regarding request for tylenol #3 refill. States is still needing this medication for back pain. Asking if refill is possible? * Telephone Encounter - John Méndez MD - 02/07/2023 5:58 PM CDT Abnormal drug screen and had no reason for the med to be in her system. * Telephone Encounter - Antoinette Arora RN - 02/05/2023 9:21 AM CDT PDMP 01/07/23 Medication failed the protocol, provider to review and approve the medication order if appropriate. Requested Prescriptions Pending Prescriptions Disp Refills acetaminophen-codeine (TYLENOL #3) 300-30 MG Tablet [Pharmacy Med Name: Acetaminophen-Codeine #3 300-30 MG Oral Tablet] 90 Tablet 0 Sig: TAKE 1 TABLET BY MOUTH THREE TIMES DAILY NEEDED FOR SEVERE PAIN Not Delegated - Opioid Combinations Protocol Failed - 02/04/2023 2:57 PM Failed - This refill cannot be delegated Passed - Visit with relevant provider in past 12 months or upcoming 90 days Recent Visits Date Type Provider Dept 01/03/23 Office Visit Maggie Tolentino PAC [facility] 09/03/22 Office Visit John Méndez MD [facility] 04/29/22 Office Visit John Méndez MD [facility] Showing recent visits within past 365 days and meeting all other requirements Future Appointments Date Type Provider Dept 04/04/23 Appointment John Méndez MD [facility] Showing future appointments within next 90 days and meeting all other requirements documented in this encounter Plan of Treatment Upcoming Encounters Date Type Department Care Team (Late st Contact Info) Description 11/02/2024 8:15 AM DRESSMAKER OR TAILOR Office Visit [facility] [place] [address] Dakota Fabian APRN, TELLER [address] [address] 11/26/2024 11:30 AM DRESSMAKER OR TAILOR Office Visit [facility] [place] [address] Maggie Tolentino, PAC [address] [place] [address] documented as of this encounter Visit Diagnoses Diagnosis Sacroiliac joint dysfunction of both sides Disorders of sacrum Degenerative lumbar disc Degeneration of lumbar or lumbosacral intervertebral disc documented in this encounter Additional Health Concerns Infection Onset Date Last Indicated Resolved Time MRSA 03/30/2020 03/30/2020 COVID - 19 09/11/2024 09/11/2024 09/11/2024 7:21 PM DRESSMAKER OR TAILOR Assessment Noted Time PHQ-9 Depression Total Score: 0 01/04/20 23 2:56 PM CDT documented as of this encounter Care Teams Artist'S Representative Relationship Specialty Start Date End Date John Méndez MD PCP - General Family Medicine 09/28/19 04/26/24 Dakota Fabian, SENIOR TAX MANAGER, TELLER [address] [place] [address] PCP - General Advanced Practice Nurse 04/27/24 documented as of this encounter
--- OUTSIDE RECORDS SUMMARY | 2024-10-20 03:51 | XMS_ITS | Encounter Summary ---
Author Organization [facility] Address [address] 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 No / Unsure 01/03/2023 2:54 PM CDT documented as of this encounter Miscellaneous Notes * Telephone Encounter - Kelly Palacios RN - 02/06/2023 4:11 PM CDT Nurse called and spoke with pt to let her know regarding Oxycodone in her UDS. Patient became defensive and began to tell nurse she doesn't take anything she is not prescibed, nurse had to cut patient off to let her know she was not accusing her but the reason she was calling her and per PCP agreement to refill her medication, patient then apologized to nurse, then nurse was able to tell her per PCP Let the patient know that I will give her one more chance on the meds. There is to be no earlyrefills. She has to be seen every three to four months without me having to remind her. She is to take these as prescribed and if there is anything showing up in the drug screen again, that is it. I am not believing that she does not know where this came from as she has to know. This is not just inthere by accident. She will also have to get more drug screens. Pt verbalizes understanding. * Telephone Encounter - John Méndez MD - 02/06/2023 7:49 AM CDT Let the patient know that I will give her one more chance on the meds. There is to be no early refills. She has to be seen every three to four months without me having to remind her. She is to take these as prescribed and if there is anything showing up in the drug screen again, that is it. I am not believing that she does not know where this came from as she has to know. This is not just in there by accident. She will also have to get more drug screens. * Telephone Encounter - Razia Reyes - 02/06/2023 7:39 AM CDT I would recommend going off what the Drug screen is reporting and make a decision based off that. * Telephone Encounter - John Méndez MD - 02/06/2023 7:01 AM CDT I do not know what to do with this. It shows that she has oxycodone in a small amount in the uds. She says no way but I am not sure that I trust her. But then I think what if I had this happen and didn't really have it in there. Please advise me what you think. I could totally throw her off of thisor what do you think. * Telephone Encounter - Daphne Sierra RN - 01/28/2023 10:24 AM CDT S: Patient is returning missed call B: Patient relays she had some labs done A: Upon chart review this RN did find the following provider documentation see copied below John Méndez MD 01/27/2023 ??6:10 PM CDT Why is there oxycodone in her drug screen This RN reviewed this with patient accordingly She denies taking any Oxycodone and only uses her Tylenol #3 and CBD gummy occasionally She relays she will come do a urine drug screen if needed. Please advise and update patient accordingly * Telephone Encounter - Rissa Wilson RN - 01/28/2023 10:16 AM CDT Left message for pt to call office. Please let her know that oxycodone showed up on her recent drugscreen that was not prescribed by our office. Dr Méndez is asking why this is in her system. Thank you. * Telephone Encounter - Rissa Wilson RN - 01/28/2023 10:14 AM CDT ----- Message from John Méndez MD sent at 01/27/2023 6:10 PM CDT ----- Why is there oxycodone in her drug screen? documented in this encounter Plan of Treatment Upcoming Encounters Date Type Department Care Team (Late st Contact Info) Description 11/02/2024 8:15 AM BAILING MACHINE OPERATOR Office Visit [facility] [address] [place] [address] Dakota Fabian APRN, INPATIENT AUDITOR [address] [address] 11/26/2024 11:30 AM BAILING MACHINE OPERATOR Office Visit [facility] [address]2 [facility] [place] [address] Maggie Tolentino, PAC [address] [place] [address] documented as of this encounter Visit Diagnoses Not on filedocumented in this encounter Additional Health Concerns Infection Onset Date Last Indicated Resolved Time MRSA 03/30/2020 03/30/2020 Assessment Noted Time PHQ-9 Depression Total Score: 0 01/04/20 23 2:56 PM CDT documented as of this encounter Care Teams Paper Reclaiming Machine Operator Relationship Specialty Start Date End Date John Méndez MD PCP - General Family Medicine 09/28/19 04/26/24 documented as of this encounter
--- OUTSIDE RECORDS SUMMARY | 2024-10-20 03:51 | XMS_ITS | Encounter Summary ---
Author Organization [facility] Address [address] [place] [address] Phone Care Team Providers Care Casing Man Name Role Phone John Méndez MD Primary Care Provider [phone] Reason for Visit * Reason Comments Medication Management Patient is here to day to discuss medication management. Encounter Details Date Type Department Care Team (Late st Contact Info) Description 02/20/2023 8:30 AM CDT Office Visit [facility] - [facility] [address] [place] [id number] John Méndez MD [address] [place] [address] Sacroiliac joint dysfunction of both sides (Primary Dx); Degenerative lumbar disc; Chronic prescription opiate use Discharge Disposition: Discharged to home or Selfcare Social History Tobacco Use Types Packs/Day Years Used Date Smoking Tobacco: Never Smokeless Tobacco: Never Tobacco Cessation:Counseling Given: Yes Alcohol Use Standard Drinks/Week Comments No 0 [...] 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 No / Unsure 02/20/2023 8:06 AM CDT documented as of this encounter Last Filed Vital Signs Vital Sign Reading Time Taken Comments Blood Pressure 136/74 02/20/2023 8:35 AM CDT Pulse 55 02/20/2023 8:35 AM CDT Temperature 36.3 ??C (97.3 ??F) 02/20/2023 8:35 AM CD T Respiratory Rate 12 02/20/2023 8:35 AM CDT Oxygen Saturation 98% 02/20/2023 8:35 AM CDT Inhaled Oxygen Concentration - - Weight 107.5 kg (237 lb) 02/20/2023 8:35 AM CDT Height 158.8 cm (5' 2.5 ) 02/20/2023 8:35 AM CDT Body Mass Index 42.66 02/20/2023 8:35 AM CDT documented in this encounter Progress Notes * John Méndez MD - 02/20/2023 8:30 AM CDT Subjective: TERESA Melinda Olmedo, 47 y.o. female, is here for medication management. She had been taking tylenol with codeine for her chronic pain. She had a UDS done on 01/06/23. This shows that she was compliant onher codeine but had actually a higher dose of oxycodone in her system than the codeine. She was told that we can no longer prescribe her controlled substances due to her being in breach of her med use agreement. I am assuming that she is coming in today to disagree with the results of the testing. Pt is here for this reason. She says that she does not understand how she would have gotten the oxycodone in her system. No one in her family does take this and she should not have this present. I told her that with this present in her urine that there is no way that I can continue to prescribe her any controlled substances. She is asking me what she is to do now. I did offer to refer her to see pain management and she tells me that she has been through this all before and does not think that this is for her. She does not want to have to go to therapy or have injections. She does not feel thatshe needs to have anything but medications. I told her that this is her decision but I am not sure that anyone else is going to be willing to help her with the pain. Most of the primary care try and limit their pain patients and she has broken the pain agreement with us and no one in this office iswilling to offer her pain control. Past Medical History Positives Diagnosis Date ??? Anxiety ??? Broken arm 12/2015 lower left ??? Broken leg 2016 Right leg ??? Chronic sinusitis ??? Degenerative lumbar disc ??? Depression ??? High cholesterol ??? Hypertension Past Surgical History: Procedure Laterality Date ??? ECTOPIC SURGERY 2005 ??? FRACTURE SURGERY Left Arm - plate [...] grade Occupational History ??? 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 Smoking status: Never ??? [...] Social History Narrative ??? Not on file Current Outpatient Medications on File Prior to Visit Medication Sig Dispense Refill ??? acetaminophen-codeine (TYLENOL [...] 2 ??? atorvastatin (LIPITOR) 20 MG Tablet Take 1 Tablet by mouth every evening. 90 Tablet 3 ??? buPROPion (WELLBUTRIN) 150 MG XL tablet TAKE 1 TABLET BY MOUTH EVERY DAY IN THE MORNING 90 Tablet 0 ??? celecoxib (CeleBREX) 200 MG Capsule Take 1 Capsule by mouth daily. 90 Capsule 3 ??? cetirizine (ZyrTEC) 10 MG Tablet Take 1 Tablet by mouth daily. 30 Tablet 11 ??? escitalopram (LEXAPRO) 20 MG Tablet TAKE [...] NEEDED FOR MUSCLE SPASMS. 30 Tablet 2 No current facility-administered medications on file prior to visit. Allergies Allergen Reactions ??? Penicillins Rash and Itching Reaction: Rash, , Family History Problem Relation Age of Onset ??? Breast Cancer Mother ??? Osteoporosis Mother ??? Cancer Mother ??? Diabetes Father ??? Thyroid Disease Sister ??? Osteoporosis Maternal Grandmother ??? Alzheimer's Disease Maternal Grandmother ??? Dementia Maternal Grandmother ??? Stroke Maternal Grandmother ??? Heart Attack Maternal Grandfather ??? Alcohol Abuse Maternal Grandfather ??? Diabetes Paternal Grandmother ??? Schizophrenia Paternal Grandfather ??? Paranoid behavior Paternal Grandfather ROS LUNGS: Denies cough and shortness of breath. HEART: Denies chest pain and palpitations. GI: Denies nausea, vomiting, diarrhea, constipation, and abdominal pain. : Denies frequency, dysuria, and nocturia. Objective: BP 136/74 Pulse 55 Temp 97.3 ??F (36.3 ??C) (Temporal) Resp 12 Ht 5' 2.5 (1.588 m) Wt 237 lb (107.5 kg) LMP (LMP Unknown) Comment: full SpO2 98% BMI 42.66 kg/m?? Physical Exam GENERAL: well-developed, well-nourished, and no acute distress. NECK: supple, no thyromegaly, and no cervical LAD. LUNGS: clear to auscultation bilaterally, respiratory effort normal, and no wheezes, rales or rhonchi. HEART: regular rate and rhythm, S1, S2, and no murmurs. EXTREMITIES: no edema and peripheral pulses intact. Requested Number of Results for Past 12 Months Component Units 09/03/22 1010 WBC 10(3)/mcL 6.13 HEMOGLOBIN g/dL 12.7 HEMATOCRIT % 40.6 PLATELETCNT 10(3)/mcL 448* CHOLESTEROL mg/dL 216* TRIGLYCRIDES mg/dL 226* LDL mg/dL 115 SGPTALT U/L 16 SGOTAST U/L 23 SODIUM mmol/L 140 POTASSIUM mmol/L 3.7 CHLORIDE mmol/L 103 CREATININE mg/dL 0.74 BUN mg/dL 12 CO2VEN mmol/L 28 TSH mIU/L 2.140 GLUCOSE mg/dL 88 Assessment & Plan 1. Sacroiliac joint dysfunction of both sides 2. Degenerative lumbar disc 3. Chronic prescription opiate use Pt is told that we can no longer provide her with prescriptions for narcotic medications or controlled substances. She was offered a pain clinic referral but she did decline this today. She was told that we are not sure where there is any other options of her getting pain control other than this. We are still available for her other medication needs. John Médnez MD * Garo Maritza Matteo BRAKE REPAIRER RAILROAD - 02/20/2023 8:30 AM CDT Melinda Olmedo, 47 y.o., female is here for Medication Management (Patient is here today to discuss medication management.) Medication Refills: Patient reports/denies need for medication refills. Orders Pended: no Requested Prescriptions No prescriptions requested or ordered in this encounter Home Medications Medication Sig Start Date End Date Taking? Authorizing Provider acetaminophen-codeine (TYLENOL #3) 300-30 MG Tablet TAKE 1 TABLET BY MOUTH 3 TIMES A DAY NEEDED FOR SEVERE PAIN. 01/08/23 John Méndez MD albuterol (PROVENTIL/VENTOLIN) 1.25 MG/3ML Nebulizer Soln INHALE 1 VIAL (3MLS) VIA NEBULIZER EVERY 4 HOURS NEEDED FOR WHEEZING OR COUGH 07/09/22 Yes John Méndez MD albuterol 108 (90 Base) MCG/ACT Aerosol Solution TAKE 2 PUFFS BY MOUTH EVERY 4 HOURS NEEDED FOR WHEEZE 11/05/22 Yes John Méndez MD amLODIPine (NORVASC) 10 MG Tablet TAKE 1 TABLET BY MOUTH EVERY DAY 02/10/23 Yes John Méndez MD atorvastatin (LIPITOR) 20 MG Tablet Take 1 Tablet by mouth every evening. 04/29/22 Yes John Méndez MD buPROPion (WELLBUTRIN) 150 MG XL tablet TAKE 1 TABLET BY MOUTH EVERY DAY IN THE MORNING 01/02/23 YesJohn Méndez MD celecoxib (CeleBREX) 200 MG Capsule Take 1 Capsule by mouth daily. 09/03/22 Yes John Méndez MD cetirizine (ZyrTEC) 10 MG Tablet Take 1 Tablet by mouth daily. 04/29/22 Yes John Méndez MD escitalopram (LEXAPRO) 20 MG Tablet TAKE 1 TABLET BY MOUTH EVERY DAY 11/05/22 Yes John Méndez MD losartan (COZAAR) 50 MG Tablet Take 1 Tablet by mouth daily. Patient taking differently: Take 50 mg by mouth every morning. 04/29/22 Yes John Méndez MD montelukast (SINGULAIR) 10 MG Tablet Take 1 Tablet by mouth daily. 09/03/22 Yes John Méndez MD naloxone HCl (Narcan) 4 MG/0.1ML Liquid One spray in nostril Q 2-3 minutes until pt improves or until emergency units arrive to assume care. 04/29/22 Yes John Méndez MD omeprazole (PriLOSEC) 40 MG CAPSULE DELAYED RELEASE Take 1 Capsule by mouth daily. 04/29/22 Yes John Méndez MD tiZANidine (ZANAFLEX) 4 MG Tablet TAKE 1 TABLET BY MOUTH NIGHTLY NEEDED FOR MUSCLE SPASMS. 12/02/22 Yes John Méndez MD There are no discontinued medications. I have reviewed the home medication list with the patient and have reconciled discrepancies. The list is accurate to the best of my knowledge. Smoking Status: Social History Tobacco Use ??? Smoking status: Never ??? Smokeless tobacco: Never Vaping Use ??? Vaping Use: Never used Substance Use Topics ??? Alcohol use: No ??? Drug use: No Smoking Cessation Counseling Given: yes Health Care Maintenance: Health Maintenance Due Topic Date Due ??? Hepatitis B Immunization (1 of 3 - 3-dose series) Never done ??? SARS-COV-2 Immunization (1) Never done ??? Colorectal Cancer Screening Never done Orders Pended: no The following BPA's have been addressed with the patient today: BMI Melinda screened for Social Determinants of Health and screened positive for Stress. Patient declined Care Management referral. documented in this encounter Plan of Treatment Upcoming Encounters Date Type Department Care Team (Late st Contact Info) Description 11/02/2024 8:15 AM CREELER Office Visit [facility] - Family Medicine [facility] [address] [place] [address] Dakota Fabian, LAND LEASING INFORMATION CLERK, CANE WEIGHER HELPER [address] [address] 11/26/2024 11:30 AM CREELER Office Visit [facility] - [facility] - [place] [address] [place] [address] Maggie Tolentino, [facility] [address]2 [facility] [place] [address] documented as of this encounter Visit Diagnoses Diagnosis Sacroiliac joint dysfunction of both sides- Primary Disorders of sacrum Degenerative lumbar disc Degeneration of lumbar or lumbosacral intervertebral disc Chronic prescription opiate use documented in this encounter Additional Health Concerns Infection Onset Date Last Indicated Resolved Time MRSA 03/30/2020 03/30/2020 Assessment Noted Time PHQ-9 Depression Total Score: 0 01/04/20 23 2:56 PM CDT documented as of this encounter Care Teams Casing Man Relationship Specialty Start Date End Date John Méndez MD PCP - General Family Medicine 09/28/19 04/26/24 documented as of this encounter
--- OUTSIDE RECORDS SUMMARY | 2024-10-20 03:51 | XMS_ITS | Encounter Summary ---
Author Organization [facility] Address [address] 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 Méndez. Sara also asked if patient is currently prescribed pain medication by Dr. Méndez, this RN informed Sara the Dr. Méndez is NOT prescribing patient any pain medication. TRIC SYSTEM OPERATOR * Telephone Encounter - John Méndez MD - 11/18/2023 10:58 AM CST I last saw her in February of 2023. She no showed her last visit and she has cancelled most of the otherones. She was to be seen every 3-4 months but has not come in\ since I cut her off of pain medications. She can yell as she has yelled at staff here in the past. I am not sure what she is like now asI have not seen her in so l chepe. TRIC SYSTEM OPERATOR * Telephone Encounter - Jayda Lacy RN - 11/17/2023 3:19 PM CST Situation: Request for information Background: SOPHIA form from [facility] is on file. Media tab. Dated 11/14/23 Assessment: Sara is asking about last Office visit with PCP, specifically regarding depression Wants to know from provider if patient is compliant with f/u appointments and medication Especially asking if provider has any concerns for this patient's ability to function and/or provide care as a parent There have been complaints filed to them about some explosive outburts Recommendation: Routing to PCP Sara Palomino Can be reached at [phone] ---this note has been blocked from patient's view via [employer] as there is concern for likelihood orpossibility of causing physical harm to anyone involved-- TRIC SYSTEM OPERATOR documented in this encounter Plan of Treatment Upcoming Encounters Date Type Department Care Team (Late st Contact Info) Description 11/02/2024 8:15 AM ELECTRIC SYSTEM OPERATOR [facility] [place] [address] Dakota Fabian APRN, BOILER COVERER #[address] [address] 11/26/2024 11:30 AM ELECTRIC SYSTEM OPERATOR Office Visit [facility] [place] [address] [place] [address] Maggie Tolentino, PAC [address] [place] [address] documented as of this encounter Visit Diagnoses Not on filedocumented in this encounter Additional Health Concerns Infection Onset Date Last Indicated Resolved Time MRSA 03/30/2020 03/30/2020 Assessment Noted Time PHQ-9 Depression Total Score: 0 01/04/20 23 2:56 PM CDT documented as of this encounter Care Teams Outreach Team Member Relationship Specialty Start Date End Date John Méndez MD PCP - General Family Medicine 09/28/19 04/26/24 documented as of this encounter
--- OUTSIDE RECORDS SUMMARY | 2024-10-20 03:51 | XMS_ITS | Encounter Summary ---
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 Not on file Not on file documented as of this encounter Plan of Treatment Upcoming Encounters Date Type Department Care Team (Late st Contact Info) Description 11/02/2024 8:15 AM MACHINE ETCHER Office Visit [facility] Medical Group - Family Medicine [facility] [address] [place] [address] Dakota Fabian, CIGAR HEAD STRINGER, LUMBER DRIVER [address] [address] 11/26/2024 11:30 AM MACHINE ETCHER Office Visit [facility] - [facility] - [place] [address] [place] [address] Maggie Tolentino, PAC [address] [place] [address] documented as of this encounter Visit Diagnoses Not on filedocumented in this encounter Additional Health Concerns Infection Onset Date Last Indicated Resolved Time MRSA 03/30/2020 03/30/2020 Assessment Noted Time PHQ-9 Depression Total Score: 0 01/04/20 23 2:56 PM CDT documented as of this encounter Care Teams Reservoir Engineering Consultant Relationship Specialty Start Date End Date John Méndez MD PCP - General Family Medicine 09/28/19 04/26/24 documented as of this encounter
--- OUTSIDE RECORDS SUMMARY | 2024-10-20 03:51 | XMS_ITS | Encounter Summary ---
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 Not on file Not on file documented as of this encounter Plan of Treatment Upcoming Encounters Date Type Department Care Team (Late st Contact Info) Description 11/02/2024 8:15 AM FOUR HORSE HITCH DRIVER Office Visit [facility] Medical Group - Family Medicine [facility] [address] [place] [address] Daktoa Fabian, BURN CENTER NURSE, ANTHROPOLOGY AND ARCHEOLOGY INSTRUCTOR [address] [address] 11/26/2024 11:30 AM FOUR HORSE HITCH DRIVER Office Visit [facility] - [facility] - [place] [address] [place] [place] [address] Maggie Tolentino, PAC [address] [place] [address] documented as of this encounter Visit Diagnoses Not on filedocumented in this encounter Additional Health Concerns Infection Onset Date Last Indicated Resolved Time MRSA 03/30/2020 03/30/2020 Assessment Noted Time PHQ-9 Depression Total Score: 0 01/04/20 23 2:56 PM CDT documented as of this encounter Care Teams First Grade Teacher Relationship Specialty Start Date End Date John Méndez MD PCP - General Family Medicine 09/28/19 04/26/24 documented as of this encounter
--- OUTSIDE RECORDS SUMMARY | 2024-10-20 03:52 | XMS_ITS | Encounter Summary ---
Author Organization [facility] [employer] Care Team Providers Care Senior Chemical Process Engineer Name Role Phone John Méndez MD Primary Care Provider Encounter Details Date Type Department Care Team (Latest Contact Info) Description 05/21/2022 Travel Social History Tobacco Use Types Packs/Day Years Used Date Smoking Tobacco: Never Smokeless Tobacco: Never Alcohol Use Standard Drinks/Week Comments No 0 (1 standard drink = 0.6 oz pur e alcohol) PHQ-2 Answer Date Recorded Total Score - Questions 1-9 0 03/0 01/2021 Sexually Active Control Partners Comments Yes Male Comments No Sex and Gender Information Value Date Recorded Sex Assigned at Not on file Legal Sex Female 12:28 AM CDT Gender Identity Not on file Sexual Orientation Not on file 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 No / Unsure 05/21/2022 9:37 AM CDT documented as of this encounter Plan of Treatment Upcoming Encounters Date Type Department Care Team (Late st Contact Info) Description 11/02/2024 8:15 AM PRINCIPAL PROCESS ENGINEER Office Visit [facility] Medical Group - Family Medicine [facility] [address] [place] [phone] Dakota Fabian, ON AIR HOST, CARBON SEQUESTRATION PLANT MANAGER [address] [address] 11/26/2024 11:30 AM PRINCIPAL PROCESS ENGINEER Office Visit [facility] - [facility] - [place] [address] [place] [address] Maggie Tolentino, [facility] [address] [place] [address] documented as of this encounter Visit Diagnoses Not on filedocumented in this encounter Additional Health Concerns Infection Onset Date Last Indicated Resolved Time MRSA 03/30/2020 03/30/2020 Assessment Noted Time PHQ-9 Depression Total Score: 0 12/15/19 21 8:53 AM PRINCIPAL PROCESS ENGINEER documented as of this encounter Care Teams Senior Chemical Process Engineer Relationship Specialty Start Date End Date John Méndez MD PCP - General Family Medicine 09/28/19 04/26/24 documented as of this encounter
--- OUTSIDE RECORDS SUMMARY | 2024-10-20 03:52 | XMS_ITS | Encounter Summary ---
Author Organization [facility] Address [address] [facility] 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 No / Unsure 06/24/2022 10:31 AM CDT documented as of this encounter Miscellaneous Notes * Telephone Encounter - Sarah Mckeon RN - 06/25/2022 9:56 AM CDT SITUATION: Patient calling for results of covid for pre-procedure. Gave results and verbalized understanding Result Note Component Ref Range & Units SARSCOV2 (Reference Range for this test is Not Detected) NOT DETECTED Comment: This test was performed by a MOLECULAR, NON-PCR method Resulting Agency [facility] documented in this encounter Plan of Treatment Upcoming Encounters Date Type Department Care Team (Late st Contact Info) Description 11/02/2024 8:15 AM PREPRESS STRIPPER Office Visit [facility] [place] [address] [place] [address] Dakota Fabian APRN, VISUAL ASSOCIATE [address] [address] 11/26/2024 11:30 AM PREPRESS STRIPPER Office Visit [facility] [place] [address] [place] [address] Maggie Tolentino, PAC [address] [place] [address] documented as of this encounter Visit Diagnoses Not on filedocumented in this encounter Additional Health Concerns Infection Onset Date Last Indicated Resolved Time MRSA 03/30/2020 03/30/2020 Assessment Noted Time PHQ-9 Depression Total Score: 0 12/15/19 21 8:53 AM PREPRESS STRIPPER documented as of this encounter Care Teams Retrofit Installer Relationship Specialty Start Date End Date John Méndez MD PCP - General Family Medicine 09/28/19 04/26/24 documented as of this encounter
--- OUTSIDE RECORDS SUMMARY | 2024-10-20 03:52 | XMS_ITS | Encounter Summary ---
Author Organization [facility] Address [address] 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 Requested Prescriptions Pending Prescriptions Disp Refills ??? buPROPion (WELLBUTRIN) 150 MG XL tablet [Pharmacy Med Name: BUPROPION HCL XL 150 MG TABLET] 90 Tablet 0 Sig: TAKE 1 TABLET BY MOUTH EVERY DAY IN THE MORNING Bupropion (6 Month Refill Only) Protocol Passed - 01/01/2023 2:16 PM Passed - Visit with relevant provider in past 6 months or upcoming 90 days Recent Visits Date Type Provider Dept 09/03/22 Office Visit John M[facility]dez MD [facility] [place] Showing recent visits within past 182 days and meeting all other requirements Future Appointments Date Type Provider Dept 01/03/23 Appointment Maggie Tolentino PAC [facility] Showing future appointments within next 90 days and meeting all other requirements Passed - Has an encounter in the past 6 months with a depression or anxiety visit diagnosis Passed - Patient has established therapy with Bupropion for at least 6 months Refused Prescriptions Disp Refills ??? acetaminophen-codeine (TYLENOL #3) 300-30 MG Tablet [Pharmacy Med Name: ACETAMINOPHEN-COD #3 TABLET] 90 Tablet 0 Sig: TAKE 1 TABLET BY MOUTH 3 TIMES A DAY NEEDED FOR SEVERE PAIN. Not Delegated - Opioid Combinations Protocol Failed - 01/01/2023 2:16 PM Failed - This refill cannot be delegated Passed - Visit with relevant provider in past 12 months or upcoming 90 days Recent Visits Date Type Provider Dept 09/03/22 Office Visit John Méndez MD [facility] 04/29/22 Office Visit John Méndez MD [facility] Showing recent visits within past 365 days and meeting all other requirements Future Appointments Date Type Provider Dept 01/03/23 Appointment Maggie Tolentino PAC [facility] Showing future appointments within next 90 days and meeting all other requirements documented in this encounter Plan of Treatment Upcoming Encounters Date Type Department Care Team (Late st Contact Info) Description 11/02/2024 8:15 AM FIREPROOF DOOR MAKER Office Visit [facility] [place] [address] [place] [address] Dakota Fabian APRN, LAND DEGRADATION ANALYST [facility] [address] [address] 11/26/2024 11:30 AM FIREPROOF DOOR MAKER Office Visit [facility] [place] [address] [facility] [place] [address] Maggie Tolentino, PAC [address] [place] [address] documented as of this encounter Visit Diagnoses Diagnosis Sacroiliac joint dysfunction of both sides Disorders of sacrum Degenerative lumbar disc Degeneration of lumbar or lumbosacral intervertebral disc documented in this encounter Additional Health Concerns Infection Onset Date Last Indicated Resolved Time MRSA 03/30/2020 03/30/2020 Assessment Noted Time PHQ-9 Depression Total Score: 0 12/15/19 21 8:53 AM FIREPROOF DOOR MAKER documented as of this encounter Care Teams Mechanical Engineering Coop Relationship Specialty Start Date End Date John Méndez MD PCP - General Family Medicine 09/28/19 04/26/24 documented as of this encounter
--- OUTSIDE RECORDS SUMMARY | 2024-10-20 03:52 | XMS_ITS | Encounter Summary ---
Author Organization [facility] Address [address] [facility] [place] [address] Phone Care Team Providers Care Artificial Flower Maker Name Role Phone John Méndez MD Primary Care Provider Dakota Fabian APRN FIREWALL ENGINEER Primary Care Pr ovider Reason for Visit * Reason Comments Medication Refill Encounter Details Date Type Department Care Team (Late st Contact Info) Description 08/13/2022 Refill [facility] [address] [place] [address] John Méndez MD [address] [place] [address] Medication Refill Social History Tobacco Use Types Packs/Day Years Used Date Smoking Tobacco: Never Smokeless Tobacco: Never Alcohol Use Standard Drinks/Week Comments No 0 (1 standard drink = 0.6 oz pur e alcohol) PHQ-2 Answer Date Recorded Total Score - Questions 1-9 0 0 01/2021 Sexually Active Control Partners Comments Yes Male Comments No Sex and Gender Information Value Date Recorded Sex Assigned at Not on file Legal Sex Female 12:28 AM CDT Gender Identity Not on file Sexual Orientation Not on file 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 No / Unsure 08/14/2022 11:50 AM CDT documented as of this encounter Miscellaneous Notes * Telephone Encounter - Antoinette Arora RN - 08/14/2022 10:26 AM CDT PDMP 07/18/22 Medication failed the protocol, provider to review and approve the medication order if appropriate. Requested Prescriptions Pending Prescriptions Disp Refills acetaminophen-codeine (TYLENOL #3) 300-30 MG Tablet [Pharmacy Med Name: ACETAMINOPHEN-COD #3 TABLET] 90 Tablet 0 Sig: TAKE 1 TABLET BY MOUTH THREE TIMES A DAY NEEDED FOR SEVERE PAIN Not Delegated - Opioid Combinations Protocol Failed - 08/13/2022 10:59 PM Failed - This refill cannot be delegated Passed - Visit with relevant provider in past 12 months or upcoming 90 days Recent Visits Date Type Provider Dept 04/29/22 Office Visit John Méndez MD [facility] 12/25/21 Office Visit John Méndez MD [facility] Showing recent visits within past 365 days and meeting all other requirements Future Appointments Date Type Provider Dept 09/03/22 Appointment John Méndez MD [facility] Showing future appointments within next 90 days and meeting all other requirements documented in this encounter Plan of Treatment Upcoming Encounters Date Type Department Care Team (Late st Contact Info) Description 11/02/2024 8:15 AM PLANT SUPERINTENDENT Office Visit [facility] [place] [address] [place] [address] Dakota Fabian APRN, FIREWALL ENGINEER [address] [address] 11/26/2024 11:30 AM PLANT SUPERINTENDENT Office Visit [facility] - [place] [address] [place] [address] Maggie Tolentino, [facility] [address] [place] [address] documented as of this encounter Visit Diagnoses Diagnosis Sacroiliac joint dysfunction of both sides Disorders of sacrum Degenerative lumbar disc Degeneration of lumbar or lumbosacral intervertebral disc documented in this encounter Additional Health Concerns Infection Onset Date Last Indicated Resolved Time MRSA 03/30/2020 03/30/2020 COVID - 19 09/11/2024 09/11/2024 09/11/2024 7:21 PM PLANT SUPERINTENDENT Assessment Noted Time PHQ-9 Depression Total Score: 0 12/15/19 8:53 AM PLANT SUPERINTENDENT documented as of this encounter Care Teams Artificial Flower Maker Relationship Specialty Start Date End Date John Méndez MD PCP - General Family Medicine 09/28/19 04/26/24 Dakota Fabian, HARD ROCK MINER BLASTING, FIREWALL ENGINEER [address] [address] PCP - General Advanced Practice Nurse 04/27/24 documented as of this encounter
--- OUTSIDE RECORDS SUMMARY | 2024-10-20 03:52 | XMS_ITS | Encounter Summary ---
Author Organization [facility] Address [address] [place] [address] Phone Care Team Providers Care Quilt Stuffer Name Role Phone John Méndez MD Primary Care Provider [phone] Reason for Referral * Radiology Services (Routine) - Closed Specialty Diagnoses / Procedures Referred By Contac t Referred To Contact Radiology Diagnoses Visit for screening mammogram Procedures MARCO A SCREENING BILATERAL DIGITAL W CAD John Méndez MD [address] [place] [address] Phone: tel: fax: Referral ID Status Reason Start Date Expiration Date Visits Re quested Visits Authorized [id number] Closed 07/19/2022 1 1 Encounter Details Date Type Department Care Team (Late st Contact Info) Description 07/19/2022 Transcribe Orders [facility] Central Scheduling [address] [place] [address] John Méndez MD [address] [place] [address] Visit for screening mammogram (Primary Dx) Social History Tobacco Use Types [...] 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 Not [...] st Contact Info) Description 11/02/2024 8:15 AM SONG AND DANCE PERFORMER Office Visit [facility] [address] [place] [address] Dakota Fabian, THOM, BLOOM CONVEYOR OPERATOR [address] [address] 11/26/2024 11:30 AM SONG AND DANCE PERFORMER Office Visit [facility] [address] [place] [address] Maggie Tolentino, PAC [address] [place] [address] Scheduled Orders Name Type Priority Associated Diagnoses Orde r Schedule MARCO A SCREENING BILATERAL DIGITAL W CAD Imaging Routine Visit for screening mammogram Expected: 07/19/2022, Expires: 07/19/2023 documented as of this encounter Visit Diagnoses Diagnosis Visit for screening mammogram- Primary Other screening mammogram documented in this encounter Additional Health Concerns Infection Onset Date Last Indicated Resolved Time MRSA 03/30/2020 03/30/2020 Assessment Noted Time PHQ-9 Depression Total Score: 0 12/15/19 8:53 AM SONG AND DANCE PERFORMER documented as of this encounter Care Teams Quilt Stuffer Relationship Specialty Start Date End Date John Méndez MD PCP - General Family Medicine 09/28/19 04/26/24 documented as of this encounter
--- OUTSIDE RECORDS SUMMARY | 2024-10-20 03:52 | XMS_ITS | Encounter Summary ---
Author Organization [facility] Address [address] [facility] 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 No / Unsure 09/03/2022 9:02 AM APPEALS MANAGER documented as of this encounter Miscellaneous Notes * Telephone Encounter - Hair Eller RN - 09/11/2022 3:19 PM CST Patient is calling back to see if a prescription for Tessalon Perles can be prescribed for her for cough. Advised that the request has been sent to . Patient verbalized understanding. ALS MANAGER * Telephone Encounter - Lien Hensley RN - 09/11/2022 8:34 AM CST Medication failed the protocol, provider to review and approve the medication order if appropriate.PDMP reviewed. Last UDS was 04/2021. Requested Prescriptions Pending Prescriptions Disp Refills Benzonatate 200 MG Capsule [Pharmacy Med Name: BENZONATATE 200 MG CAPSULE] 42 Capsule 0 Sig: TAKE 1 CAPSULE BY MOUTH 3 TIMES DAILY NEEDED FOR COUGH FOR UP TO 14 DAYS. Not Delegated - Anti-Tussives Protocol Failed - 09/11/2022 12:26 AM Failed - This refill cannot be delegated Failed - Active on medication list Passed - Visit with relevant provider in past 12 months or upcoming 90 days Recent Visits Date Type Provider Dept 09/03/22 Office Visit John Méndez MD [facility] 04/29/22 Office Visit John Méndez MD [facility] 12/25/21 Office [facility] [place] Showing recent visits within past 365 days and meeting all other requirements Future Appointments No visits were found meeting these conditions. Showing future appointments within next 90 days and meeting all other requirements acetaminophen-codeine (TYLENOL #3) 300-30 MG Tablet [Pharmacy Med Name: ACETAMINOPHEN-COD #3 TABLET] 90 Tablet 0 Sig: TAKE 1 TABLET BY MOUTH 3 TIMES A DAY NEEDED FOR SEVERE PAIN. Not Delegated - Opioid Combinations Protocol Failed - 09/11/2022 12:26 AM Failed - This refill cannot be delegated Passed - Visit with relevant provider in past 12 months or upcoming 90 days Recent Visits Date Type Provider Dept 09/03/22 Office Visit John Méndez MD [facility] 04/29/22 Office Visit John Méndez MD [facility] 12/25/21 Office Visit John Méndez MD [facility] Showing recent visits within past 365 days and meeting all other requirements Future Appointments No visits were found meeting these conditions. Showing future appointments within next 90 days and meeting all other requirements ALS MANAGER documented in this encounter Plan of Treatment Upcoming Encounters Date Type Department Care Team (Late st Contact Info) Description 11/02/2024 8:15 AM APPEALS MANAGER Office Visit [facility] [place] [place] [address] [place] [address] Dakota Fabian APRN, REED MAN [address] [address] 11/26/2024 11:30 AM APPEALS MANAGER Office Visit [facility] [place] [place] [address] [place] [address] Maggie Tolentino, PAC [address] [place] [address] documented as of this encounter Visit Diagnoses Diagnosis Sacroiliac joint dysfunction of both sides Disorders of sacrum Degenerative lumbar disc Degeneration of lumbar or lumbosacral intervertebral disc documented in this encounter Additional Health Concerns Infection Onset Date Last Indicated Resolved Time MRSA 03/30/2020 03/30/2020 COVID - 19 09/11/2024 09/11/2024 09/11/2024 7:21 PM APPEALS MANAGER Assessment Noted Time PHQ-9 Depression Total Score: 0 12/15/19 8:53 AM APPEALS MANAGER documented as of this encounter Care Teams Dialysis Patient Care Technician Relationship Specialty Start Date End Date John Méndez MD PCP - General Family Medicine 09/28/19 04/26/24 Dakota Fabian APRN, REED MAN #[address] [address] PCP - General Advanced Practice Nurse 04/27/24 documented as of this encounter
--- OUTSIDE RECORDS SUMMARY | 2024-10-20 03:52 | XMS_ITS | Encounter Summary ---
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 No / Unsure 06/14/2022 3:08 PM CDT documented as of this encounter Plan of Treatment Upcoming Encounters Date Type Department Care Team (Late st Contact Info) Description 11/02/2024 8:15 AM RELOCATION SERVICES SPECIALIST Office Visit [facility] - Family Medicine [facility] [address] [place] [id number] Dakota Fabian, EXHAUST EMISSIONS AUTOMOTIVE TECHNICIAN, BODY BUILDER [address] [address] 11/26/2024 11:30 AM RELOCATION SERVICES SPECIALIST Office Visit [facility] - Family Medicine - [place] [address] [place] [address] Maggie Tolentino, [facility] [address] [place] [address] documented as of this encounter Visit Diagnoses Not on filedocumented in this encounter Additional Health Concerns Infection Onset Date Last Indicated Resolved Time MRSA 03/30/2020 03/30/2020 Assessment Noted Time PHQ-9 Depression Total Score: 0 12/15/19 21 8:53 AM RELOCATION SERVICES SPECIALIST documented as of this encounter Care Teams Environmental Services Technician Relationship Specialty Start Date End Date John Méndez MD PCP - General Family Medicine 09/28/19 04/26/24 documented as of this encounter
--- OUTSIDE RECORDS SUMMARY | 2024-10-20 03:52 | XMS_ITS | Encounter Summary ---
Author Organization [facility] Address [address] [place] [address] Phone Care Team Providers Care Leather Roller Name Role Phone John Méndez MD Primary Care Provider [phone] Dakota Fabian APRN MACHINE TOOL MECHANIC Primary Care Pr ovider Reason for Visit * Reason Comments Medication Refill Encounter Details Date Type Department Care Team (Late st Contact Info) Description 12/03/2022 Refill [facility] [address] [place] [address] John Méndez MD [address] [place] [address] Medication Refill Social History Tobacco Use Types Packs/Day Years Used Date Smoking Tobacco: Never Smokeless Tobacco: Never Alcohol Use Standard Drinks/Week Comments No 0 (1 standard drink = 0.6 oz pur e alcohol) PHQ-2 Answer Date Recorded Total Score - Questions 1-9 0 01/2021 Sexually Active Control Partners Comments Yes Male Comments No Sex and Gender Information Value Date Recorded Sex Assigned at Not on file Legal Sex Female 12:28 AM CDT Gender Identity Not on file Sexual Orientation Not on file 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 Not on file Not on file documented as of this encounter Plan of Treatment Upcoming Encounters Date Type Department Care Team (Late st Contact Info) Description 11/02/2024 8:15 AM PRINT PRESS OPERATOR Office Visit [facility] [address] [place] [address] Dakota Fabian APRN, MACHINE TOOL MECHANIC [address] [address] 11/26/2024 11:30 AM PRINT PRESS OPERATOR Office Visit [facility] [address] [place] [address] Maggie Tolentino PAC [address] [place] [address] documented as of this encounter Visit Diagnoses Diagnosis Sacroiliac joint dysfunction of both sides Disorders of sacrum Degenerative lumbar disc Degeneration of lumbar or lumbosacral intervertebral disc documented in this encounter Additional Health Concerns Infection Onset Date Last Indicated Resolved Time MRSA 03/30/2020 03/30/2020 COVID - 19 09/11/2024 09/11/2024 09/11/2024 7:21 PM PRINT PRESS OPERATOR Assessment Noted Time PHQ-9 Depression Total Score: 0 12/15/19 8:53 AM PRINT PRESS OPERATOR documented as of this encounter Care Teams Leather Roller Relationship Specialty Start Date End Date John Méndez MD PCP - General Family Medicine 09/28/19 04/26/24 Dakota Fabian, DIGITAL STRATEGIST, MACHINE TOOL MECHANIC [address] [address] PCP - General Advanced Practice Nurse 04/27/24 documented as of this encounter
--- OUTSIDE RECORDS SUMMARY | 2024-10-20 03:52 | XMS_ITS | Encounter Summary ---
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 No / Unsure 01/03/2023 2:54 PM CDT documented as of this encounter Functional Status * Question Answer Date of Assessment Author Little interest or pleasure in doing things Not at all 01/03/2023 2:56 PM CDT Jamaica Boone MA Feeling down, depressed, or hopeless Not at all 01/03/2023 2:56 PM CDT Mable Boone MA * Over the past 2 weeks, how often have you been bothered by any of the following problems? Question Answer Date of Assessment Author Patient Health Questionnaire-2 Score 0 01/03/2023 2:56 PM CDT Deejay Boone MA documented as of this encounter Plan of Treatment Upcoming Encounters Date Type Department Care Team (Late st Contact Info) Description 11/02/2024 8:15 AM BAKERY SUPERVISOR Office Visit [facility] [address] [place] [address] Dakota Fabian, LUMBER MATERIAL HANDLER, SEARCH MANAGER #[address] [address] 11/26/2024 11:30 AM BAKERY SUPERVISOR Office Visit [facility] [address] [place] [address] Maggie Tolentino, PAC [address] [place] [address] documented as of this encounter Visit Diagnoses Not on filedocumented in this encounter Additional Health Concerns Infection Onset Date Last Indicated Resolved Time MRSA 03/30/2020 03/30/2020 Assessment Noted Time PHQ-9 Depression Total Score: 0 01/04/20 23 2:56 PM CDT documented as of this encounter Care Teams Data Integrity Consultant Relationship Specialty Start Date End Date John Méndez MD PCP - General Family Medicine 09/28/19 04/26/24 documented as of this encounter
--- OUTSIDE RECORDS SUMMARY | 2024-10-20 03:52 | XMS_ITS | Encounter Summary ---
Author Organization [facility] Address [address] [facility] [place] [address] Phone Care Team Providers Care Electric Motor Tester Name Role Phone John Méndez MD Primary Care Provider [phone] Reason for Referral * Consult, Test & Initiate Treatment (Routine) - Canceled Specialty Diagnoses / Procedures Referred By Magui t Referred To Contact General Surgery Diagnoses Colon cancer screening John Méndez MD [address] [place] [address] Phone: tel: fax: [facility] [address] [address] Phone: tel: fax: Referral ID Status Reason Start Date Expiration Date V isits Requested Visits Authorized [id number] Canceled 09/03/2022 1 1 Scheduling Instructions Melinda is being referred for routine colonoscopy. Please contact patient for scheduling questions or concerns. PER OPERATOR Reason for Visit * Reason Comments Follow-up Patient is here for a follow up to chronic conditions. Encounter Details Date Type Department Care Team ([facility] Contact Info) Description 09/03/2022 9:15 AM CRIMPER OPERATOR Office Visit [facility] Family Medicine [facility] [address] [place] [address] John Méndez MD [address] [place] [address] Chronic sinusitis, unspecified location (Primary Dx); Primary hypertension; Mixed hyperlipidemia; Obstructive sleep apnea syndrome; Degenerative lumbar disc; Gastroesophageal reflux disease, unspecified whether esophagitis present; Moderate episode of recurrent major depressive disorder (HCC); Colon cancer screening; Chronic prescription opiate use Discharge Disposition: Discharged [...] 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 No / Unsure 09/03/2022 9:02 AM CRIMPER OPERATOR documented as of this encounter Last Filed Vital Signs Vital Sign Reading Time Taken Comments Blood Pressure 112/64 09/03/2022 9:26 AM CRIMPER OPERATOR Pulse 75 09/03/2022 9:26 AM CRIMPER OPERATOR Temperature 36.4 ??C (97.6 ??F) 09/03/2022 9:26 AM CS T Respiratory Rate 12 09/03/2022 9:26 AM CRIMPER OPERATOR Oxygen Saturation 98% 09/03/2022 9:26 AM CRIMPER OPERATOR Inhaled Oxygen Concentration - - Weight 105.2 kg (232 lb) 09/03/2022 9:26 AM CRIMPER OPERATOR Height 160 cm (5' 3 ) 09/03/2022 9:26 AM CRIMPER OPERATOR Body Mass Index 41.1 09/03/2022 9:26 AM CRIMPER OPERATOR documented in this encounter Progress Notes * Maritza Wyman CMA - 09/03/2022 9:15 AM CST Melinda Olmedo, 47 y.o., female is here for Follow-up (Patient is here for a follow up to chronicconditions.) Medication Refills: Patient reports/denies need for medication refills. Orders Pended: yes Requested Prescriptions Pending Prescriptions Disp Refills ??? montelukast (SINGULAIR) 10 MG Tablet 90 Tablet 3 Sig: Take 1 Tablet by mouth daily. Home Medications Medication Sig Start Date End Date Taking? Authorizing Provider acetaminophen-codeine (TYLENOL #3) 300-30 MG Tablet TAKE 1 TABLET BY MOUTH THREE TIMES A DAY NEEDED FOR SEVERE PAIN 08/17/22 Yes John Méndez MD albuterol (PROVENTIL/VENTOLIN) 1.25 MG/3ML Nebulizer Soln INHALE 1 VIAL (3MLS) VIA NEBULIZER EVERY 4 HOURS NEEDED FOR WHEEZING OR COUGH 07/09/22 Yes John Méndez MD albuterol 108 (90 Base) MCG/ACT Aerosol Solution INHALE 2 PUFFS BY MOUTH EVERY 4 HOURS NEEDED FOR WHEEZE 06/20/22 Yes John Méndez MD amLODIPine (NORVASC) 10 MG Tablet Take 1 Tablet by mouth daily. Patient taking differently: Take 10 mg by mouth every morning. 04/29/22 Yes John Méndez MD atorvastatin (LIPITOR) 20 MG Tablet Take 1 Tablet by mouth every evening. 04/29/22 Yes John Méndez MD buPROPion (WELLBUTRIN) 150 MG XL tablet TAKE 1 TABLET BY MOUTH EVERY DAY IN THE MORNING 06/20/22 Yes John Méndez MD cetirizine (ZyrTEC) 10 MG Tablet Take 1 Tablet by mouth daily. 04/29/22 Yes John Méndez MD escitalopram (LEXAPRO) 20 MG Tablet Take 1 Tablet by mouth daily. 04/29/22 Yes John Méndez MD losartan (COZAAR) 50 MG Tablet Take 1 Tablet by mouth daily. Patient taking differently: Take 50 mg by mouth every morning. 04/29/22 Yes John Méndez MD montelukast (SINGULAIR) 10 MG Tablet Take 10 mg by mouth daily. 06/14/19 Yes Provider, MD Adolfo naloxone HCl (Narcan) 4 MG/0.1ML Liquid One spray in nostril Q 2-3 minutes until pt improves or until emergency units arrive to assume care. 04/29/22 Yes John Méndez MD omeprazole (PriLOSEC) 40 MG CAPSULE DELAYED RELEASE Take 1 Capsule by mouth daily. 04/29/22 Yes John Méndez MD There are no [...] done ??? Colorectal Cancer Screening Never done ??? Influenza Immunization (1) 06/13/2022 Orders Pended: no The following BPA's have been addressed with the patient today: BMI and Colonoscopy PER OPERATOR * John Méndez MD - 09/03/2022 9:15 AM CST Subjective: TERESA Melinda Olmedo, 47 y.o. female, is here for 4 month follow up on chronic conditions. The patient suffers from sacroiliac joint dysfunction, degenerative disc disease in the lumbar region, chronic wheezing and bronchospasm, hypertension, hyperlipidemia, chronic sinusitis, and depression. She also has obstructive sleep apnea. She states that she is taking her medications as ordered. She notes that she is having some more issues with her joints and arthritis pain. She is wondering if we can takeher up to hydrocodone for the pain. I told her that I am not going to do this as it is not seeming that she is having much issue with the pain and I prefer that she continue with the tylenol with codeine. I did tell her that I could refer her to see pain management if she would like. She decided tocontinue with her current medications. She is noting that she believes that she has a sinus infection. She always seems to feel that she is ill when she is seen here. If she is not treated she will us ually call or go to prompt care until she is. She says that she is congested and has post nasal drainage. She is not having much of a cough. She is not short of breath. No nausea or vomiting. Past Medical History Positives Diagnosis Date ??? [...] Not on file ??? Highest education level: Not on file Occupational History ??? 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 Smoking status: Never ??? [...] MG Tablet TAKE 1 TABLET BY MOUTH THREE TIMES A DAY ASNEEDED FOR SEVERE PAIN 90 Tablet 0 ??? albuterol (PROVENTIL/VENTOLIN) 1.25 MG/3ML Nebulizer Soln INHALE 1 VIAL (3MLS) VIA NEBULIZER EVERY 4 HOURS NEEDED FOR WHEEZING OR COUGH 300 mL 2 ??? albuterol 108 (90 Base) MCG/ACT Aerosol Solution INHALE 2 PUFFS BY MOUTH EVERY 4 HOURS NEEDED FOR WHEEZE 18 g 1 ??? amLODIPine (NORVASC) 10 MG Tablet Take 1 Tablet by mouth daily. (Patient taking differently: Take 10 mg by mouth every morning.) 90 Tablet 2 ??? atorvastatin (LIPITOR) 20 MG Tablet Take 1 Tablet by mouth every evening. 90 Tablet 3 ??? buPROPion (WELLBUTRIN) 150 MG XL tablet TAKE 1 TABLET BY MOUTH EVERY DAY IN THE MORNING 90 Tablet 0 ??? cetirizine (ZyrTEC) 10 MG Tablet Take 1 Tablet by mouth daily. 30 Tablet 11 ??? escitalopram (LEXAPRO) 20 MG Tablet Take 1 Tablet by mouth daily. 90 Tablet 1 ??? losartan (COZAAR) 50 MG Tablet Take 1 Tablet by mouth daily. (Patient taking differently: Take 50 mg by mouth every morning.) 90 Tablet 3 ??? naloxone HCl (Narcan) 4 MG/0.1ML Liquid One spray in nostril Q 2-3 minutes until pt improves oruntil emergency units arrive to assume care. 2 Each 2 ??? omeprazole (PriLOSEC) 40 MG CAPSULE DELAYED RELEASE Take 1 Capsule by mouth daily. 90 Capsule 3 No current facility-administered medications on file prior [...] Grandfather ??? Paranoid behavior Paternal Grandfather ROS GENERAL: Denies fevers, unintentional weight loss or gain, night sweats, and fatigue. SKIN: Denies rash. HEENT: Denies vision changes, difficulty hearing. +rhinorrhea, and sore throat. + post nasal drainage. LUNGS: Denies cough and shortness of breath. HEART: Denies chest pain and palpitations. GI: Denies nausea, vomiting, diarrhea, constipation, and abdominal pain. : Denies frequency, dysuria, and nocturia. MSK: Denies myalgias. + arthralgias. NEUROLOGIC: Denies dizziness, tingling, and weakness + headaches. ENDOCRINE: Denies cold or heat intolerance. HEMATOLOGIC: Denies excessive bleeding. Objective: BP 112/64 Pulse 75 Temp 97.6 ??F (36.4 ??C) (Temporal) Resp 12 Ht 5' 3 (1.6 m) Wt 232 lb(105.2 kg) LMP (LMP Unknown) Comment: full SpO2 98% BMI 41.10 kg/m?? Physical Exam GENERAL: well-developed, well-nourished, and no acute distress. HEENT: NC, AT; external ears normal, ear canal normal, TM's normal bilaterally, no erythema or bulging. No effusion noted. Nares: ext normal. + rhinorrhea, and congestion. Turbinates enlarged Frontalsinus tenderness. O/P : erythematous. No lesion or exudate. No tonsil hypertrophy. Dentition in normal repair. Tongue with in normal limits. NECK: supple, no thyromegaly, and + cervical lymphadenopathy LUNGS: clear to auscultation bilaterally, respiratory effort normal, and no wheezes, rales or rhonchi. HEART: regular rate and rhythm, S1, S2, and no murmurs. ABDOMEN: soft, non-tender, no rebound, and no HSM. EXTREMITIES: no edema and peripheral pulses intact. Requested Number of Results for Past 12 Months Component Units 03/22/22 1708 WBC 10(3)/mcL 7.63 HEMOGLOBIN g/dL 14.4 HEMATOCRIT % 45.3 PLATELETCNT 10(3)/mcL 418 SGPTALT U/L 14 SGOTAST U/L 18 SODIUM mmol/L 138 POTASSIUM mmol/L 3.4* CHLORIDE mmol/L 101 CREATININE mg/dL 0.64 BUN mg/dL 10 CO2VEN mmol/L 25 GLUCOSE mg/dL 104* Assessment/Plan 1. Chronic sinusitis, unspecified location Cont with current medications. She is given refill on the singulair. She is also given a zpak for her possible infection at this time. - montelukast (SINGULAIR) 10 MG Tablet; Take 1 Tablet by mouth daily. Dispense: 90 Tablet; Refill: 3 - azithromycin (Zithromax Z-Carlo) 250 MG Tablet; Take 1 Tablet by mouth daily for 5 days. 2 tab(s) daily for 1 day, then 1 tab(s) daily for days 2-5. Dispense: 6 Tablet; Refill: 0 2. Primary hypertension Stable well controlled. Cont with current medications. 3. Mixed hyperlipidemia Stable cont with current medications. 4. Obstructive sleep apnea syndrome Stable no problems at this time. Cont with CPAP. 5. Degenerative lumbar disc Stable cont with current meds. Reorder given . She does have a med use agreement and also is up to date on UDS. She is checked on the PDMP and this Is normal. No signs of diversion. - tiZANidine (ZANAFLEX) 4 MG Tablet; Take 1 Tablet by mouth nightly as needed for Muscle spasms. Dispense: 90 Tablet; Refill: 0 - celecoxib (CeleBREX) 200 MG Capsule; Take 1 Capsule by mouth daily. Dispense: 90 Capsule; Refill:3 6. Gastroesophageal reflux disease, unspecified whether esophagitis present Stable. Cont with current meds. 7. Moderate episode of recurrent major depressive disorder (HCC) Stable cont with current medications. 8. Colon cancer screening Ordered today. - COLORECTAL SURGICAL REFERRAL; Future 9. Chronic prescription opiate use Pt is up to date on med use agreement and also uds. She is checked on the PDMP and this is normal. No signs of diversion. Pt is asked to follow up with us in 4 months. Pt voiced understanding. Pt is to call or return in the meantime with any problems or concerns. PER OPERATOR documented in this encounter Plan of Treatment Upcoming Encounters Date Type Department Care Team (Late st Contact Info) Description 11/02/2024 8:15 AM CRIMPER OPERATOR Office Visit [facility] - [facility] [address] [place] [address] Dakota Fabian APRN, NITROGLYCERIN NITRATOR OPERATOR BATCH [address] [address] 11/26/2024 11:30 AM CRIMPER OPERATOR Office Visit [facility] - Family Medicine [facility] [address] [place] [address] Maggie Tolentino, [facility] [address] [place] [address] Scheduled Referrals Name Type Priority Associated Diagnoses Order Schedule COLORECTAL SURGICAL REFERRAL Outpatient Referral Routine Colon cancer screening Expected: 09/02/2023, Expires: 03/02/2024 documented as of this encounter Visit Diagnoses Diagnosis Chronic sinusitis, unspecified location- Primary Primary hypertension Unspecified essential hypertension Mixed hyperlipidemia Obstructive sleep apnea syndrome Obstructive sleep apnea (adult) (pediatric) Degenerative lumbar disc Degeneration of lumbar or lumbosacral intervertebral disc Gastroesophageal reflux disease, unspecified whether esophagitis present Moderate episode of recurrent major depressive disorder (HCC) Colon cancer screening Special screening for malignant neoplasms, colon Chronic prescription opiate use documented in this encounter Additional Health Concerns Infection Onset Date Last Indicated Resolved Time 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
--- OUTSIDE RECORDS SUMMARY | 2024-10-20 03:52 | XMS_ITS | Encounter Summary ---
Author Organization [facility] Address [address] 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 No / Unsure 09/03/2022 9:02 AM PHOTOLITHOGRAPHER documented as of this encounter Progress Notes * Radha Vora - 09/03/2022 10:40 AM CST Melinda presents for lab draw per order of Dr. Méndez dated 09/03/22. Specimen collected from left antecubital without incident. [facility] OLITHOGRAPHER documented in this encounter Plan of Treatment Upcoming Encounters Date Type Department Care Team (Late st Contact Info) Description 11/02/2024 8:15 AM PHOTOLITHOGRAPHER Office Visit [facility] #2 [facility] [address] Dakota Fabian APRN, ADULT PSYCHIATRIST #[address] [address] 11/26/2024 11:30 AM PHOTOLITHOGRAPHER Office Visit [facility] #2 [facility] [address] Maggie Tolentino, PAC [address]2 [place] [address] documented as of this encounter Procedures Procedure Name Priority Date/Time Associated Diagnosis Comments CBC WITH AUTO DIFFERENTIAL Routine 09/03/2022 10:10 AM PHOTOLITHOGRAPHER Primary hypertension THYROID STIMULATING HORMONE (TSH) Routine 09/03/2022 10:10 AM PHOTOLITHOGRAPHER Primary hypertension LIPID PANEL Routine 09/03/2022 10:10 AM PHOTOLITHOGRAPHER Primary hypertension High cholesterol CMP (COMPREHENSIVE METABOLIC PANEL) Routine 09/03/2022 10:10 AM PHOTOLITHOGRAPHER Primary hypertension High cholesterol COMPLETE BLOOD COUNT (CBC) WITH DIFF Routine 09/03/2022 10:10 AM PHOTOLITHOGRAPHER Primary hypertension documented in this encounter Results * (ABNORMAL) CBC WITH AUTO DIFFERENTIAL (09/03/2022 10:10 AM PHOTOLITHOGRAPHER) WBC 6.13 4.00 - 12.00 10(3)/mcL 09/03/2022 12:23 PM [facility] RBC 4.49 3.80 - 5.30 10(6)/mcL 09/03/2022 12:23 PM [facility] HEMOGLOBIN (HGB) 12.7 12.0 - 15.8 g/dL 09/03/2022 12:23 PM [facility] HEMATOCRIT (HCT) 40.6 36.0 - 47.0 % 09/03/2022 12:23 PM [facility] MCV 90.4 82.0 - 96.0 fL 09/03/2022 12:23 PM [facility] MCH 28.3 26.0 - 34.0 pg 09/03/2022 12:23 PM [facility] MCHC 31.3 31.0 - 36.0 g/dL 09/03/2022 12:23 PM [facility] PLATELET COUNT 448(H) 140 - 440 10(3)/[facility] 09/03/2022 12:23 PM [facility] RDW 13.3 11.8 - 15.5 % 09/03/2022 12:23 PM [facility] MPV 10.1 9.7 - 12.4 fL 09/03/2022 12:23 PM [facility] NEUTROPHILS 56.7 47.0 - 73.0 % 09/03/2022 12:23 PM [facility] LYMPHOCYTES 31.0 18.0 - 42.0 % 09/03/2022 12:23 PM [facility] MONOCYTES 7.2 4.0 - 12.0 % 09/03/2022 12:23 PM [facility] EOSINOPHILS 4.1 0.0 - 5.0 % 09/03/2022 12:23 PM [facility] BASOPHILS 1.0 0.0 - 1.0 % 09/03/2022 12:23 PM [facility] ABSOLUTE NEUTROPHILS 3.48 1.60 - 7.70 10(3)/[facility] 09/03/2022 12:23 PM PHOTOLITHOGRAPHER [facility] ABSOLUTE LYMPHOCYTES 1.90 1.30 - 3.20 10(3)/[facility] 09/03/2022 12:23 PM PHOTOLITHOGRAPHER [facility] ABSOLUTE MONOCYTES 0.44 0.20 - 1.00 10(3)/[facility] 09/03/2022 12:23 PM PHOTOLITHOGRAPHER [facility] ABSOLUTE EOSINOPHIL 0.25 0.00 - 0.40 10(3)/[facility] 09/03/2022 12:23 PM PHOTOLITHOGRAPHER [facility] ABSOLUTE BASOPHILS 0.06 0.00 - 0.10 10(3)/[facility] 09/03/2022 12:23 PM [facility] NRBC PER 100 WBC 0 09/03/20 12:23 PM [facility] Blood Venipuncture / Unknown 09/03/2022 10:10 AM PHOTOLITHOGRAPHER 09/03/2022 10:10 AM [facility] us John Méndez MD HEMATOLOGY ORDERABLES Final Resu lt [facility] [address] [place] [address] * CMP (COMPREHENSIVE METABOLIC PANEL) (09/03/2022 10:10 AM PHOTOLITHOGRAPHER) SODIUM 140 136 - 144 mmol/L 09/03/2022 1:31 PM PHOTOLITHOGRAPHER [facility] POTASSIUM 3.7 3.5 - 5.1 mmol/L 09/03/2022 1:31 PM [facility] CHLORIDE 103 100 - 110 mmol/L 09/03/2022 1:31 PM [facility] CO2, VENOUS 28 22 - 32 mmol/L 09/03/2022 1:31 PM [facility] ANION GAP 12.7 8.0 - 20.0 mmol/L 09/03/2022 1:31 PM [facility] GLUCOSE 88 70 - 99 mg/dL 09/03/2022 1:31 PM [facility] BUN 12 6 - 20 mg/dL 09/03/2022 1:31 PM [facility] CREATININE, BLOOD 0.74 0.60 - 1.10 mg/dL 09/03/2022 1:31 PM [facility] BUN/CREATININE RATIO 16 12 - 20 ratio 09/03/2022 1:31 PM [facility] TOTAL PROTEIN 7.3 6.0 - 8.3 g/dL 09/03/2022 1:31 PM [facility] ALBUMIN 4.4 3.5 - 5.2 g/dL 09/03/2022 1:31 PM [facility] Comment: The colormetric methods used for the determination of Albumin may lead to falsely elevated test results in patients suffering from renal failure or insufficiency due to interference with other proteins. A/G RATIO 1.5 1.0 - 2.0 09/03/2022 1:31 PM [facility] CALCIUM 9.4 8.9 - 10.3 mg/dL 09/03/2022 1:31 PM [facility] T BILI <0.3 <=1.2 mg/dL 09/03/2022 1:31 PM [facility] SGOT (AST) 23 <=32 U/L 09/03/2022 1:31 PM [facility] SGPT (ALT) 16 <=41 U/L 09/03/2022 1:31 PM [facility] ALKALINE PHOSPHATASE 83 35 - 105 U/L 09/03/2022 1:31 PM [facility] IS THE PATIENT REQUIRED TO BE FASTING? No 09/03/2022 1:31 PM [facility] GFR, ESTIMATED >60 >=60 09/03/2022 1:31 PM [facility] Comment: Creatinine Clearance is the preferred criteria for selecting drug dose adjustments in renally impaired patients. ??The GFR is provided as additional pertinent clinical information. GFR is reported in mL/min/1.73 sq m. Calculation based on the Chronic Kidney Disease Epidemiology Collaboration (CKD- EPI) equation refit without adjustment for race. GFR, EST. >60 >=60 022 1:31 PM PHOTOLITHOGRAPHER [facility] GFR, EST. NONAFRICAN >60 >=60 09/03/2022 1:31 PM PHOTOLITHOGRAPHER [facility] Blood Venipuncture / Unknown 09/03/2022 10:10 AM PHOTOLITHOGRAPHER 09/03/2022 10:10 AM PHOTOLITHOGRAPHER us John Méndez MD CHEMISTRY ORDERABLES Final Resul t [facility] [address] [place] [address] * (ABNORMAL) LIPID PANEL (09/03/2022 10:10 AM PHOTOLITHOGRAPHER) CHOLESTEROL 216(H) <=200 mg/dL 09/03/2022 1:31 PM PHOTOLITHOGRAPHER [facility] TRIGLYCERIDES 226(H) <150 mg/dL 09/03/2022 1:31 PM [facility] HDL CHOLESTEROL 56.2 >40 mg/dL 1:31 PM PHOTOLITHOGRAPHER [facility] LDL 115 5 - 130 mg/dL 09/03/2022 1:31 PM [facility] VLDL 45 5 - 55 mg/dL 09/03/2022 1:31 PM [facility] CHOL/HDL RATIO 3.8 0.0 - 4.4 09/03/2022 1:31 PM [facility] NON-HDL CHOLESTEROL 159.8(H) <130 mg/dL 09/03/2022 1:31 PM [facility] IS THE PATIENT REQUIRED TO BE FASTING? No 09/03/2022 1:31 PM PHOTOLITHOGRAPHER [facility] Blood Venipuncture / Unknown 09/03/2022 10:10 AM PHOTOLITHOGRAPHER 09/03/2022 10:10 AM PHOTOLITHOGRAPHER us John Méndez MD CHEMISTRY ORDERABLES Final Resul t Performing Organization Address City/[facility]/ZIP Co de Phone Number [facility] [address] [place] [address] * THYROID STIMULATING HORMONE (TSH) (09/03/2022 10:10 AM PHOTOLITHOGRAPHER) TSH 2.140 0.270 - 4.200 mIU/L 09/03/2022 1:31 PM PHOTOLITHOGRAPHER [facility] Blood Venipuncture / Unknown 09/03/2022 10:10 AM PHOTOLITHOGRAPHER 09/03/2022 10:10 AM PHOTOLITHOGRAPHER us John Méndez MD CHEMISTRY ORDERABLES Final Resul t Performing Organization Address City/[facility] Co de Phone Number [facility] [address] [place] [address] documented in this encounter Visit Diagnoses Diagnosis Primary hypertension Unspecified essential hypertension High cholesterol Pure hypercholesterolemia documented in this encounter Additional Health Concerns Infection Onset Date Last Indicated Resolved Time 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
--- OUTSIDE RECORDS SUMMARY | 2024-10-20 03:52 | XMS_ITS | Encounter Summary ---
Author Organization [facility] Address [address] 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 informed patient no script given without an appointment. Patient states it's ok, it's better now. H SERVICES SPECIALIST * Telephone Encounter - John Méndez MD - 10/18/2022 6:28 PM CST No scripts without being seen. I wish that these pts could be called and told this and not sent to me directly. We are not calling in prescriptions. I am not even there. H SERVICES SPECIALIST * Telephone Encounter - Ragini Vora RN - 10/16/2022 10:04 AM YOUTH SERVICES SPECIALIST Reason for Disposition ??? White patches that stick to tongue or inner cheek, which can be wiped off Protocols used: MOUTH [id number] SITUATION: Patient calling in requesting a prescription for possible thrush. BACKGROUND: Patient's symptoms began about a week ago. Patient has had thrush in the past and had similar symptoms. Patient had been on an antibiotic on 09/03 for a sinus infection. ASSESSMENT: Symptom Description / Location: I think I've got thrush on my tongue , white cakey the whole front of the tongue red sores on the side of the tongue Denies inability to swallow liquids, sore throat, toothache, swelling, or difficulty breathing Pain (0-10): 5-6/10- intermittent when I'm eating or talking Temp: denies Treatment / Response: Chloraseptic, listerine mouth wash, oragel mouth wash RECOMMENDATION: See in office within 3 days Patient does not wish to schedule an appointment and is requesting a prescription be sent to her pharmacy. Please advise Thank you See care advice and disposition for Guideline First positive answer recorded, all responses to prior questions were negative. If symptoms increase, change or if new symptoms develop, call your HCP or call back. Recommendations were based on caller information and is not a diagnosis. Verified and reviewed all triage information with caller. H SERVICES SPECIALIST documented in this encounter Plan of Treatment Upcoming Encounters Date Type Department Care Team (Late st Contact Info) Description 11/02/2024 8:15 AM YOUTH SERVICES SPECIALIST Office Visit [facility] [address] [place] [address] Dakota Fabian APRN, TILE AND MOTTLE SUPERVISOR #[address] [address] 11/26/2024 11:30 AM YOUTH SERVICES SPECIALIST Office Visit [facility] [address] [place] [address] Maggie Tolentino, PAC [address] [place] [address] documented as of this encounter Visit Diagnoses Not on filedocumented in this encounter Additional Health Concerns Infection Onset Date Last Indicated Resolved Time MRSA 03/30/2020 03/30/2020 Assessment Noted Time PHQ-9 Depression Total Score: 0 12/15/19 21 8:53 AM YOUTH SERVICES SPECIALIST documented as of this encounter Care Teams Rn Diabetes Relationship Specialty Start Date End Date John Méndez MD PCP - General Family Medicine 09/28/19 04/26/24 documented as of this encounter
--- OUTSIDE RECORDS SUMMARY | 2024-10-20 03:52 | XMS_ITS | Encounter Summary ---
Author Organization [facility] Address [address] [facility] 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 No / Unsure 06/14/2022 3:08 PM CDT documented as of this encounter Miscellaneous Notes * Telephone Encounter - Belinda Miller RN - 06/17/2022 8:25 AM CDT Opened in error. Please disregard. documented in this encounter Plan of Treatment Upcoming Encounters Date Type Department Care Team (Late st Contact Info) Description 11/02/2024 8:15 AM CRUSHER FEEDER Office Visit [facility] [address] [place] [address] Dakota Fabian APRN, BAND TOP MAKER #[address] [address] 11/26/2024 11:30 AM CRUSHER FEEDER Office Visit [facility] [address] [place] [address] Maggie Tolentino, PAC [address] [place] [address] documented as of this encounter Visit Diagnoses Not on filedocumented in this encounter Additional Health Concerns Infection Onset Date Last Indicated Resolved Time MRSA 03/30/2020 03/30/2020 Assessment Noted Time PHQ-9 Depression Total Score: 0 12/15/19 8:53 AM CRUSHER FEEDER documented as of this encounter Care Teams Wood Calker Relationship Specialty Start Date End Date John Méndez MD PCP - General Family Medicine 09/28/19 04/26/24 documented as of this encounter
--- OUTSIDE RECORDS SUMMARY | 2024-10-20 03:52 | XMS_ITS | Encounter Summary ---
Author Organization [facility] Address [address] [facility] 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 Requested Prescriptions Pending Prescriptions Disp Refills albuterol 108 (90 Base) MCG/ACT Aerosol Solution [Pharmacy Med Name: ALBUTEROL HFA (VENTOLIN) INH] 1 Sig: TAKE 2 PUFFS BY MOUTH EVERY 4 HOURS NEEDED FOR WHEEZE Short Acting Inhaled Beta-Agonists Protocol Passed - 11/04/2022 12:46 AM Passed - Visit with relevant provider in past 12 months or upcoming 90 days Recent Visits Date Type Provider Dept 09/03/22 Office Visit John Méndez MD [facility] 04/29/22 Office Visit John Méndez MD [facility] 12/25/21 Office Visit John Méndez MD [facility] Showing recent visits within past 365 days and meeting all other requirements Future Appointments Date Type Provider Dept 01/02/23 Appointment John Méndez MD [facility] Showing future appointments within next 90 days and meeting all other requirements escitalopram (LEXAPRO) 20 MG Tablet [Pharmacy Med Name: ESCITALOPRAM 20 MG TABLET] 90 Tablet 1 Sig: TAKE 1 TABLET BY MOUTH EVERY DAY SSRI (6 Month Refill Only) Protocol Passed - 11/04/2022 12:46 AM Passed - Visit with relevant provider in past 6 months or upcoming 90 days Recent Visits Date Type Provider Dept 09/03/22 Office Visit John Méndez MD [facility] Showing recent visits within past 182 days and meeting all other requirements Future Appointments Date Type Provider Dept 01/02/23 Appointment John Méndez MD [facility] Showing future appointments within next 90 days and meeting all other requirements Passed - Patient has established therapy with SSRI for at least 6 months Passed - Has an encounter in the past 6 months with a depression, anxiety, adjustment disorder, OCD, or PTSD visit diagnosis Refused Prescriptions Disp Refills buPROPion (WELLBUTRIN) 150 MG XL tablet [Pharmacy Med Name: BUPROPION HCL XL 150 MG TABLET] 90 Tablet 0 Sig: TAKE 1 TABLET BY MOUTH EVERY DAY IN THE MORNING Bupropion (6 Month Refill Only) Protocol Passed - 11/04/2022 12:46 AM Passed - Visit with relevant provider in past 6 months or upcoming 90 days Recent Visits Date Type Provider Dept 09/03/22 Office Visit John Méndez MD [facility] Showing recent visits within past 182 days and meeting all other requirements Future Appointments Date Type Provider Dept 01/02/23 Appointment [facility] [place] Showing future appointments within next 90 days and meeting all other requirements Passed - Has an encounter in the past 6 months with a depression or anxiety visit diagnosis Passed - Patient has established therapy with Bupropion for at least 6 months NT CUTTER documented in this encounter Plan of Treatment Upcoming Encounters Date Type Department Care Team (Late st Contact Info) Description 11/02/2024 8:15 AM CEMENT CUTTER Office Visit [facility] #2 [place] [address] Dakota Fabian, THOM, REPAIRER VENEER SHEET #[address] [address] 11/26/2024 11:30 AM CEMENT CUTTER Office Visit [facility] [address] [place] [address] Maggie Tolentino, PAC [address] [place] [address] documented as of this encounter Visit Diagnoses Diagnosis Wheezing documented in this encounter Additional Health Concerns Infection Onset Date Last Indicated Resolved Time MRSA 03/30/2020 03/30/2020 COVID - 19 09/11/2024 09/11/2024 09/11/2024 7:21 PM CEMENT CUTTER Assessment Noted Time PHQ-9 Depression Total Score: 0 12/15/19 8:53 AM CEMENT CUTTER documented as of this encounter Care Teams Business Analytics Faculty Member Relationship Specialty Start Date End Date John Méndez MD PCP - General Family Medicine 09/28/19 04/26/24 Dakota Fabian APRN, REPAIRER VENEER SHEET #[address] [address] PCP - General Advanced Practice Nurse 04/27/24 documented as of this encounter
--- OUTSIDE RECORDS SUMMARY | 2024-10-20 03:52 | XMS_ITS | Encounter Summary ---
Author Organization [facility] Address [address] [facility] [address] Phone Care Team Providers Care Licensed Surveyor Name Role Phone John Méndez MD Primary Care Provider [phone] Dakota Fabian APRN STAPLE PROCESSING MACHINE OPERATOR Primary Care Pr ovider Reason for Visit * Reason Comments Medication Refill Encounter Details Date Type Department Care Team (Late st Contact Info) Description 06/13/2022 Refill 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 No / Unsure 06/14/2022 3:08 PM CDT documented as of this encounter Miscellaneous Notes * Telephone Encounter - Davon Andrade RN - 06/18/2022 4:08 PM CDT Patient calling back to see if refill was sent to pharmacy. Informed of prior note. She voiced understanding. * Telephone Encounter - Linda Bunch RN - 06/18/2022 10:44 AM CDT Medication has already been sent to provider for approval on 06/13/22. * Telephone Encounter - Susan Viramontes RN - 06/18/2022 10:34 AM CDT Patient calling back for update. Transferred to medication line * Telephone Encounter - Belinda Miller RN - 06/17/2022 8:26 AM CDT Patient calling and asking if prescription has been filled. States that she is now out of medication. Please advise. Medication pended. * Telephone Encounter - Antoinette Arora RN - 06/13/2022 10:16 AM CDT PDMP 05/16/22 Medication failed the protocol, provider to review and approve the medication order if appropriate. Requested Prescriptions Pending Prescriptions Disp Refills acetaminophen-codeine (TYLENOL #3) 300-30 MG Tablet [Pharmacy Med Name: ACETAMINOPHEN-COD #3 TABLET] 90 Tablet 0 Sig: TAKE 1 TABLET BY MOUTH THREE TIMES A DAY NEEDED FOR SEVERE PAIN Not Delegated - Opioid Combinations Protocol Failed - 06/13/2022 7:53 AM Failed - This refill cannot be delegated Passed - Visit with relevant provider in past 12 months or upcoming 90 days Recent Visits Date Type Provider Dept 04/29/22 Office Visit John Méndez MD [facility] 12/25/21 Office Visit John Méndez MD [facility] Showing recent visits within past 365 days and meeting all other requirements Future Appointments Date Type Provider Dept 09/03/22 Appointment John Méndez MD [facility] Showing future appointments within next 90 days and meeting all other requirements documented in this encounter Plan of Treatment Upcoming Encounters Date Type Department Care Team (Late st Contact Info) Description 11/02/2024 8:15 AM PREPRINT ANALYST Office Visit [facility] [address] [place] [address] Dakota Fabian APRN, STAPLE PROCESSING MACHINE OPERATOR #[address] [address] 11/26/2024 11:30 AM PREPRINT ANALYST Office Visit [facility] [address] [place] [address] Maggie Tolentino, PAC [address] [place] [address] documented as of this encounter Visit Diagnoses Diagnosis Sacroiliac joint dysfunction of both sides Disorders of sacrum Degenerative lumbar disc Degeneration of lumbar or lumbosacral intervertebral disc documented in this encounter Additional Health Concerns Infection Onset Date Last Indicated Resolved Time MRSA 03/30/2020 03/30/2020 COVID - 19 09/11/2024 09/11/2024 09/11/2024 7:21 PM PREPRINT ANALYST Assessment Noted Time PHQ-9 Depression Total Score: 0 12/15/19 8:53 AM PREPRINT ANALYST documented as of this encounter Care Teams Licensed Surveyor Relationship Specialty Start Date End Date John Méndez MD PCP - General Family Medicine 09/28/19 04/26/24 Dakota aFbian APRN, STAPLE PROCESSING MACHINE OPERATOR [address] [place] [address] PCP - General Advanced Practice Nurse 04/27/24 documented as of this encounter
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
--- OUTSIDE RECORDS SUMMARY | 2024-10-20 03:52 | XMS_ITS | Encounter Summary ---
Author Organization [facility] Address [address] [facility] 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 Requested Prescriptions Pending Prescriptions Disp Refills acetaminophen-codeine (TYLENOL #3) 300-30 MG Tablet [Pharmacy Med Name: ACETAMINOPHEN-COD #3 TABLET] 90 Tablet 0 Sig: TAKE 1 TABLET BY MOUTH 3 TIMES A DAY NEEDED FOR SEVERE PAIN. Not Delegated - Opioid Combinations Protocol Failed - 10/07/2022 6:51 AM Failed - This refill cannot be [...] 90 days and meeting all other requirements CTOR HOUSEKEEPING documented in this encounter Plan of Treatment Upcoming Encounters Date Type Department Care Team (Late st Contact Info) Description 11/02/2024 8:15 AM DIRECTOR HOUSEKEEPING [facility] [place] [address] Dakota Fabian, CLINICAL UNIT COORDINATOR, SKETCHER #[address] [address] 11/26/2024 11:30 AM DIRECTOR HOUSEKEEPING Office Visit [facility] #2 [place] [address] Maggie Tolentino, PAC [address] [place] [address] documented as of this encounter Visit Diagnoses Diagnosis Sacroiliac joint dysfunction of both sides Disorders of sacrum Degenerative lumbar disc Degeneration of lumbar or lumbosacral intervertebral disc documented in this encounter Additional Health Concerns Infection Onset Date Last Indicated Resolved Time MRSA 03/30/2020 03/30/2020 COVID - 19 09/11/2024 09/11/2024 09/11/2024 7:21 PM DIRECTOR HOUSEKEEPING Assessment Noted Time PHQ-9 Depression Total Score: 0 12/15/19 8:53 AM DIRECTOR HOUSEKEEPING documented as of this encounter Care Teams Chief Drafter Relationship Specialty Start Date End Date John Méndez MD PCP - General Family Medicine 09/28/19 04/26/24 Dakota Fabian APRN, SKETCHER [address] [address] PCP - General Advanced Practice Nurse 04/27/24 documented as of this encounter
--- OUTSIDE RECORDS SUMMARY | 2024-10-20 03:52 | XMS_ITS | Encounter Summary ---
Author Organization [facility] Address [address] [facility] 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 tiZANidine HCl Dispensed Days Supply Quantity Provider Pharmacy TIZANIDINE 4MG TAB 10/31/2022 30 30 Tablet John Méndez MD [facility]/pharmacy #[id number] - A... TIZANIDINE HCL 4 MG TABLET 09/29/2022 30 30 Each John Méndez MD [facility] #[id number] - A... TIZANIDINE HCL 4 MG TABLET 09/03/2022 30 30 Each John Méndez MD [facility]/pharmacy #[id number] - A... AN DEVELOPER documented in this encounter Plan of Treatment Upcoming Encounters Date Type Department Care Team (Late st Contact Info) Description 11/02/2024 8:15 AM APPIAN DEVELOPER Office Visit [facility] #2 [place] [address] Dakota Fabian APRN, VFX ARTIST #[address] [address] 11/26/2024 11:30 AM APPIAN DEVELOPER Office Visit [facility] #2 [place] [address] Maggie Tolentino, PAC [address] [place] [address] documented as of this encounter Visit Diagnoses Diagnosis Degenerative lumbar disc Degeneration of lumbar or lumbosacral intervertebral disc documented in this encounter Additional Health Concerns Infection Onset Date Last Indicated Resolved Time MRSA 03/30/2020 03/30/2020 COVID - 19 09/11/2024 09/11/2024 09/11/2024 7:21 PM APPIAN DEVELOPER Assessment Noted Time PHQ-9 Depression Total Score: 0 12/15/19 8:53 AM APPIAN DEVELOPER documented as of this encounter Care Teams Shift Mgr Relationship Specialty Start Date End Date John Méndez MD PCP - General Family Medicine 09/28/19 04/26/24 Dakota Fabian APRN, VFX ARTIST [address] [place] [address] PCP - General Advanced Practice Nurse 04/27/24 documented as of this encounter
--- OUTSIDE RECORDS SUMMARY | 2024-10-20 03:52 | XMS_ITS | Encounter Summary ---
Author Organization [facility] Address [address] [facility] 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 No / Unsure 06/14/2022 3:08 PM CDT documented as of this encounter Miscellaneous Notes * Telephone Encounter - JacobsenNena RN - 06/19/2022 11:11 AM CDT Medication failed the protocol, provider to review and approve the medication order if appropriate. Requested Prescriptions Pending Prescriptions Disp Refills buPROPion (WELLBUTRIN) 150 MG XL tablet [Pharmacy Med Name: BUPROPION HCL XL 150 MG TABLET] 90 Tablet 0 Sig: TAKE 1 TABLET BY MOUTH EVERY DAY IN THE MORNING Bupropion (6 Month Refill Only) Protocol Failed - 06/18/2022 8:16 PM Failed - Patient has established therapy with Bupropion for at least 6 months Passed - Visit with relevant provider in [...] with a depression or anxiety visit diagnosis albuterol 108 (90 Base) MCG/ACT Aerosol Solution [Pharmacy Med Name: ALBUTEROL HFA (VENTOLIN) INH] 18 g 1 Sig: INHALE 2 PUFFS BY MOUTH EVERY 4 HOURS NEEDED FOR WHEEZE Short Acting Inhaled Beta-Agonists Protocol Passed - 06/18/2022 8:16 PM Passed - Visit with relevant provider [...] st Contact Info) Description 11/02/2024 8:15 AM GAS METER INSTALLER HELPER Office Visit [facility] #2 [place] [address] Dakota Fabian APRN, BOTTLE HOP #[address] [address] 11/26/2024 11:30 AM GAS METER INSTALLER HELPER Office Visit [facility] #2 [place] [address] Maggie Tolentino PAC [address] [place] [address] documented as of this encounter Visit Diagnoses Diagnosis Wheezing documented in this encounter Additional Health Concerns Infection Onset Date Last Indicated Resolved Time MRSA 03/30/2020 03/30/2020 COVID - 19 09/11/2024 09/11/2024 09/11/2024 7:21 PM GAS METER INSTALLER HELPER Assessment Noted Time PHQ-9 Depression Total Score: 0 12/15/19 21 8:53 AM GAS METER INSTALLER HELPER documented as of this encounter Care Teams Larder Cook Relationship Specialty Start Date End Date John Méndez MD PCP - General Family Medicine 09/28/19 04/26/24 Dakota Fabian APRN, BOTTLE HOP #[address] [place] [address] PCP - General Advanced Practice Nurse 04/27/24 documented as of this encounter
--- OUTSIDE RECORDS SUMMARY | 2024-10-20 03:52 | XMS_ITS | Encounter Summary ---
Author Organization [facility] Address [address] [facility] 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 No / Unsure 06/24/2022 10:31 AM CDT documented as of this encounter Miscellaneous Notes * Telephone Encounter - Antoinette Arora RN - 07/09/2022 9:02 AM CDT PRN medication requires review from provider Per nursing clinical judgement, provider to review and approve the medication(s) order(s) if appropriate. Requested Prescriptions Pending Prescriptions Disp Refills albuterol (PROVENTIL/VENTOLIN) 1.25 MG/3ML Nebulizer Soln [Pharmacy Med Name: ALBUTEROL SUL 1.25 MG/3 ML DUSTIN] 300 mL 2 Sig: INHALE 1 VIAL (3MLS) VIA NEBULIZER EVERY 4 HOURS NEEDED FOR WHEEZING OR COUGH Short Acting Inhaled Beta-Agonists Protocol Passed - 07/08/2022 7:13 PM Passed - Visit with relevant provider [...] st Contact Info) Description 11/02/2024 8:15 AM LOCAL AREA NETWORK SYSTEMS ADMINSTRATOR Office Visit [facility] [address] [place] [address] Dakota Fabian APRN, GROUND WOOD SUPERVISOR [address] [address] 11/26/2024 11:30 AM LOCAL AREA NETWORK SYSTEMS ADMINSTRATOR Office Visit [facility] #2 [place] [address] Maggie Tolentino, [place] [address] [place] [address] documented as of this encounter Visit Diagnoses Diagnosis Wheezing documented in this encounter Additional Health Concerns Infection Onset Date Last Indicated Resolved Time MRSA 03/30/2020 03/30/2020 COVID - 19 09/11/2024 09/11/2024 09/11/2024 7:21 PM LOCAL AREA NETWORK SYSTEMS ADMINSTRATOR Assessment Noted Time PHQ-9 Depression Total Score: 0 12/15/19 8:53 AM LOCAL AREA NETWORK SYSTEMS ADMINSTRATOR documented as of this encounter Care Teams Allergist/Immunologist Physician Relationship Specialty Start Date End Date John Méndez MD PCP - General Family Medicine 09/28/19 04/26/24 Dakota Fabian APRN, GROUND WOOD SUPERVISOR #[address] [address] PCP - General Advanced Practice Nurse 04/27/24 documented as of this encounter
--- OUTSIDE RECORDS SUMMARY | 2024-10-20 03:52 | XMS_ITS | Encounter Summary ---
Author Organization [facility] Address [address] [facility] 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 documented in this encounter Plan of Treatment Upcoming Encounters Date Type Department Care Team (Late st Contact Info) Description 11/02/2024 8:15 AM CATTLE EXAMINER Office Visit [facility] #2 [place] [address] Dakota Fabian, LOGGING EQUIPMENT MECHANIC, CABLE SPLICING TECHNICIAN #[address] [address] 11/26/2024 11:30 AM CATTLE EXAMINER Office Visit [facility] [address] [place] [address] Maggie Tolentino, PAC [address] [place] [address] documented as of this encounter Visit Diagnoses Not on filedocumented in this encounter Additional Health Concerns Infection Onset Date Last Indicated Resolved Time MRSA 03/30/2020 03/30/2020 Assessment Noted Time PHQ-9 Depression Total Score: 0 12/15/19 21 8:53 AM CATTLE EXAMINER documented as of this encounter Care Teams Medical Parasitologist Relationship Specialty Start Date End Date John Méndez MD PCP - General Family Medicine 09/28/19 04/26/24 documented as of this encounter
--- OUTSIDE RECORDS SUMMARY | 2024-10-20 03:52 | XMS_ITS | Encounter Summary ---
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 file Not [...] st Contact Info) Description 11/02/2024 8:15 AM ABRASIVE MIXER HELPER Office Visit [facility] - [facility] #2 [place] [address] Dakota Fabian, POULTRY FEED SUPERVISOR, APPLIANCE MECHANIC #[address] [address] 11/26/2024 11:30 AM ABRASIVE MIXER HELPER Office Visit [facility] - [place] #2 [place] [address] Maggie Tolentino, [facility] #2 [place] [address] documented as of this encounter Visit Diagnoses Not on filedocumented in this encounter Additional Health Concerns Infection Onset Date Last Indicated Resolved Time MRSA 03/30/2020 03/30/2020 Assessment Noted Time PHQ-9 Depression Total Score: 0 12/15/19 21 8:53 AM ABRASIVE MIXER HELPER documented as of this encounter Care Teams Bisque Cleaner Relationship Specialty Start Date End Date John Méndez MD PCP - General Family Medicine 09/28/19 04/26/24 documented as of this encounter
--- OUTSIDE RECORDS SUMMARY | 2024-10-20 03:52 | XMS_ITS | Encounter Summary ---
Author Organization [facility] Address [address] 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 No / Unsure 09/03/2022 9:02 AM AIR HAMMER STRIPPER documented as of this encounter Miscellaneous Notes * Telephone Encounter - Kelly Palacios RN - 09/12/2022 10:49 AM CST Patient reminder letter mailed to patient to call and schedule Colonoscopy and EGD with Gastroenterology as she has open orders. HAMMER STRIPPER * Telephone Encounter - Kelly Palacios RN - 09/12/2022 10:44 AM CST Patient is currently under the care of [facility]. There are orders in placed for a Colonoscopy and EGD that the patient has never scheduled. HAMMER STRIPPER documented in this encounter Plan of Treatment Upcoming Encounters Date Type Department Care Team (Late st Contact Info) Description 11/02/2024 8:15 AM AIR HAMMER STRIPPER Office Visit [facility] [address]2 [place] [address] Dakota Fabian APRN, GLOBAL COMMODITY MANAGER #[address] [address] 11/26/2024 11:30 AM AIR HAMMER STRIPPER Office Visit [facility] #2 [place] [address] Maggie Tolentino, PAC [address] [place] [address] documented as of this encounter Visit Diagnoses Not on filedocumented in this encounter Additional Health Concerns Infection Onset Date Last Indicated Resolved Time MRSA 03/30/2020 03/30/2020 Assessment Noted Time PHQ-9 Depression Total Score: 0 12/15/19 8:53 AM AIR HAMMER STRIPPER documented as of this encounter Care Teams Wheel Of Fortune Dealer Relationship Specialty Start Date End Date John Méndez MD PCP - General Family Medicine 09/28/19 04/26/24 documented as of this encounter
--- OUTSIDE RECORDS SUMMARY | 2024-10-20 03:52 | XMS_ITS | Encounter Summary ---
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 file Not [...] st Contact Info) Description 11/02/2024 8:15 AM DATA CENTER CONSULTANT Office Visit [facility] - Family Medicine [facility] #2 [place] [phone] Dakota Fabian, SEAMER OPERATOR, ANODE BUILDER #[address] [address] 11/26/2024 11:30 AM DATA CENTER CONSULTANT Office Visit [facility] [place] [address] [place] [address] Maggie Tolentino, [facility] #2 [place] [address] documented as of this encounter Visit Diagnoses Not on filedocumented in this encounter Additional Health Concerns Infection Onset Date Last Indicated Resolved Time MRSA 03/30/2020 03/30/2020 Assessment Noted Time PHQ-9 Depression Total Score: 0 12/15/19 21 8:53 AM DATA CENTER CONSULTANT documented as of this encounter Care Teams Labor Expediter Relationship Specialty Start Date End Date John Méndez MD PCP - General Family Medicine 09/28/19 04/26/24 documented as of this encounter
--- OUTSIDE RECORDS SUMMARY | 2024-10-20 03:52 | XMS_ITS | Encounter Summary ---
Author Organization [facility] Address [address] [facility] 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 No / Unsure 05/08/2022 10:01 AM CDT documented as of this encounter Miscellaneous Notes * Telephone Encounter - Hilda Newton RN - 05/16/2022 10:13 AM CDT Images from the original note were not included. buPROPion HCl Dispensed Days Supply Quantity Provider Pharmacy BUPROPION HCL XL 150 MG TABLET 04/29/2022 90 90 Each JULISA ZULUAGA [facility]/pharmacy #[id number] - A... documented in this encounter Plan of Treatment Upcoming Encounters Date Type Department Care Team (Late st Contact Info) Description 11/02/2024 8:15 AM TRIAL MANAGER Office Visit [facility] #2 [place] [address] Dakota Fabian APRN, LOCK MAINTENANCE SUPERVISOR #[address] [address] 11/26/2024 11:30 AM TRIAL MANAGER Office Visit [facility] #2 [place] [address] Maggie Tolentino, PAC [address]2 [place] [address] documented as of this encounter Visit Diagnoses Not on filedocumented in this encounter Additional Health Concerns Infection Onset Date Last Indicated Resolved Time MRSA 03/30/2020 03/30/2020 Assessment Noted Time PHQ-9 Depression Total Score: 0 12/15/19 21 8:53 AM TRIAL MANAGER documented as of this encounter Care Teams Senior Net Application Developer Relationship Specialty Start Date End Date Julisa Zuluaga MD PCP - General Family Medicine 09/28/19 04/26/24 documented as of this encounter
--- OUTSIDE RECORDS SUMMARY | 2024-10-20 03:52 | XMS_ITS | Encounter Summary ---
Author Organization [facility] Address [address] [facility] 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 No / Unsure 09/03/2022 9:02 AM TEACHING ASSISTANT documented as of this encounter Miscellaneous Notes * Telephone Encounter - Antoinette Arora RN - 09/03/2022 2:10 PM CST Medication failed the protocol, provider to review and approve the medication order if appropriate. Requested Prescriptions Pending Prescriptions Disp Refills albuterol 108 (90 Base) MCG/ACT Aerosol Solution [Pharmacy Med Name: ALBUTEROL HFA (VENTOLIN) INH] 18 g 1 Sig: INHALE 2 PUFFS BY MOUTH EVERY 4 HOURS NEEDED FOR WHEEZING Short Acting Inhaled Beta-Agonists Protocol Passed - 09/03/2022 1:56 PM Passed - Visit with relevant provider in past 12 months or upcoming 90 days Recent Visits Date Type Provider Dept 04/29/22 Office Visit John Méndez MD [facility] 12/25/21 Office Visit John Méndez MD [facility] Showing recent visits within past 365 days and meeting all other requirements Today's Visits Date Type Provider Dept 09/03/22 Office Visit John Méndez MD [facility] Showing today's visits and meeting all other requirements Future Appointments No visits were found meeting these conditions. Showing future appointments within next 90 days and meeting all other requirements buPROPion (WELLBUTRIN) 150 MG XL tablet [Pharmacy Med Name: BUPROPION HCL XL 150 MG TABLET] 90 Tablet 0 Sig: TAKE 1 TABLET BY MOUTH EVERY DAY IN THE MORNING Bupropion (6 Month Refill Only) Protocol Failed - 09/03/2022 1:56 PM Failed - Patient has established therapy with Bupropion for at least 6 months Passed - Visit with relevant provider in past 6 months or upcoming 90 days Recent Visits Date Type Provider Dept 04/29/22 Office Visit John Méndez MD [facility] Showing recent visits within past 182 days and meeting all other requirements Today's Visits Date Type Provider Dept 09/03/22 Office Visit John Méndez MD [facility] Showing today's visits and meeting all other requirements Future Appointments No visits were found meeting these conditions. Showing future appointments within next 90 days and meeting all other requirements Passed - Has an encounter in the past 6 months with a depression or anxiety visit diagnosis HING ASSISTANT documented in this encounter Plan of Treatment Upcoming Encounters Date Type Department Care Team (Late st Contact Info) Description 11/02/2024 8:15 AM TEACHING ASSISTANT Office Visit [facility] [address]2 [place] [address] Dakota Fabian APRN, SPORTS CARTOONIST #[address] [address] 11/26/2024 11:30 AM TEACHING ASSISTANT Office Visit [facility] [address] [place] [address] Maggie Tolentino, [place] [address] [place] [address] documented as of this encounter Visit Diagnoses Diagnosis Wheezing documented in this encounter Additional Health Concerns Infection Onset Date Last Indicated Resolved Time MRSA 03/30/2020 03/30/2020 COVID - 19 09/11/2024 09/11/2024 09/11/2024 7:21 PM TEACHING ASSISTANT Assessment Noted Time PHQ-9 Depression Total Score: 0 12/15/19 8:53 AM TEACHING ASSISTANT documented as of this encounter Care Teams Peanut Vendor Relationship Specialty Start Date End Date John Méndez MD PCP - General Family Medicine 09/28/19 04/26/24 Dakota Fabian APRN, SPORTS CARTOONIST #[address] [place] [address] PCP - General Advanced Practice Nurse 04/27/24 documented as of this encounter
--- OUTSIDE RECORDS SUMMARY | 2024-10-20 03:52 | XMS_ITS | Encounter Summary ---
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 [...] st Contact Info) Description 11/02/2024 8:15 AM EDUCATIONAL INSTITUTION CURATOR Office Visit [facility] Medical Group - Family Medicine [facility] #2 [place] [phone] Dakota Fabian, MEDICAL INSTRUCTOR, COMMUNICATIONS INTERN #[address] [address] 11/26/2024 11:30 AM EDUCATIONAL INSTITUTION CURATOR Office Visit [facility] - [place] [address] [place] [address] Maggie Tolentino, [facility] #2 [place] [address] documented as of this encounter Visit Diagnoses Not on filedocumented in this encounter Additional Health Concerns Infection Onset Date Last Indicated Resolved Time MRSA 03/30/2020 03/30/2020 Assessment Noted Time PHQ-9 Depression Total Score: 0 12/15/19 21 8:53 AM EDUCATIONAL INSTITUTION CURATOR documented as of this encounter Care Teams Exhibit Artist Relationship Specialty Start Date End Date John Méndez MD PCP - General Family Medicine 09/28/19 04/26/24 documented as of this encounter
--- OUTSIDE RECORDS SUMMARY | 2024-10-20 03:52 | XMS_ITS | Encounter Summary ---
Author Organization [facility] Address [address] 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 Requested Prescriptions Pending Prescriptions Disp Refills acetaminophen-codeine (TYLENOL #3) 300-30 MG Tablet [Pharmacy Med Name: ACETAMINOPHEN-COD #3 TABLET] 90 Tablet 0 Sig: TAKE 1 TABLET BY MOUTH 3 TIMES A DAY NEEDED FOR SEVERE PAIN. Not Delegated - Opioid Combinations Protocol Failed - 11/07/2022 8:02 AM Failed - This refill cannot be delegated Passed - Visit with relevant provider in past 12 months or upcoming 90 days Recent Visits Date Type Provider Dept 09/03/22 Office Visit John Méndez MD [facility] 04/29/22 Office Visit John Méndez MD [facility] 12/25/21 Office Visit John [facility] [place] Showing recent visits within past 365 days and meeting all other requirements Future Appointments Date Type Provider Dept 01/02/23 Appointment John Méndez MD [facility] Showing future appointments within next 90 days and meeting all other requirements OYEE RELATIONS ADMINISTRATOR documented in this encounter Plan of Treatment Upcoming Encounters Date Type Department Care Team (Late st Contact Info) Description 11/02/2024 8:15 AM EMPLOYEE RELATIONS ADMINISTRATOR Office Visit [facility] #2 [place] [address] Dakota Fabian, THOM, HOT METAL MIXER OPERATOR #[address] [address] 11/26/2024 11:30 AM EMPLOYEE RELATIONS ADMINISTRATOR Office Visit [facility] #2 [place] [address] Maggie Tolentino, PAC #2 [place] [address] documented as of this encounter Visit Diagnoses Diagnosis Sacroiliac joint dysfunction of both sides Disorders of sacrum Degenerative lumbar disc Degeneration of lumbar or lumbosacral intervertebral disc documented in this encounter Additional Health Concerns Infection Onset Date Last Indicated Resolved Time MRSA 03/30/2020 03/30/2020 COVID - 19 09/11/2024 09/11/2024 09/11/2024 7:21 PM EMPLOYEE RELATIONS ADMINISTRATOR Assessment Noted Time PHQ-9 Depression Total Score: 0 12/15/19 8:53 AM EMPLOYEE RELATIONS ADMINISTRATOR documented as of this encounter Care Teams Foreman Shipping Department Relationship Specialty Start Date End Date John Méndez MD PCP - General Family Medicine 09/28/19 04/26/24 Dakota Fabian, SEAT BUILDER, HOT METAL MIXER OPERATOR [address] [place] [address] [address] PCP - General Advanced Practice Nurse 04/27/24 documented as of this encounter
--- OUTSIDE RECORDS SUMMARY | 2024-10-20 03:52 | XMS_ITS | Encounter Summary ---
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 No / Unsure 09/03/2022 9:02 AM BOAT CREW DECK HAND documented as of this encounter Plan of Treatment Upcoming Encounters Date Type Department Care Team (Late st Contact Info) Description 11/02/2024 8:15 AM BOAT CREW DECK HAND Office Visit [facility] Medical Group - Family Medicine [facility] #2 [place] [phone] Dakota Fabian, MAIL HANDLER ASSISTANT, MOLDER HELPER #[address] [address] 11/26/2024 11:30 AM BOAT CREW DECK HAND Office Visit [facility] - [facility] - [place] #[address] [place] [address] Maggie Tolentino, PAC [address] [place] [address] documented as of this encounter Visit Diagnoses Not on filedocumented in this encounter Additional Health Concerns Infection Onset Date Last Indicated Resolved Time MRSA 03/30/2020 03/30/2020 Assessment Noted Time PHQ-9 Depression Total Score: 0 12/15/19 21 8:53 AM BOAT CREW DECK HAND documented as of this encounter Care Teams Hearing Aid Fitter Relationship Specialty Start Date End Date John Méndez MD PCP - General Family Medicine 09/28/19 04/26/24 documented as of this encounter
--- OUTSIDE RECORDS SUMMARY | 2024-10-20 03:52 | XMS_ITS | Encounter Summary ---
Author Organization [facility] Address [address] [place] 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 Requested Prescriptions Pending Prescriptions Disp Refills acetaminophen-codeine (TYLENOL #3) 300-30 MG Tablet [Pharmacy Med Name: ACETAMINOPHEN-COD #3 TABLET] 90 Tablet 0 Sig: TAKE 1 TABLET BY MOUTH 3 TIMES A DAY NEEDED FOR SEVERE PAIN. Not Delegated - Opioid Combinations Protocol Failed - 12/08/2022 7:44 AM Failed - This refill cannot be [...] 90 days and meeting all other requirements ADMISSIONS documented in this encounter Plan of Treatment Upcoming Encounters Date Type Department Care Team (Late st Contact Info) Description 11/02/2024 8:15 AM RN ADMISSIONS Office Visit [facility] #2 [place] [address] Dakota Fabian, COMMUNICATION INSTRUCTOR, POSTPARTUM NURSE #[address] [address] 11/26/2024 11:30 AM RN ADMISSIONS Office Visit [facility] #2 [place] [address] Maggie Tolentino, PAC [address] [place] [address] documented as of this encounter Visit Diagnoses Diagnosis Sacroiliac joint dysfunction of both sides Disorders of sacrum Degenerative lumbar disc Degeneration of lumbar or lumbosacral intervertebral disc documented in this encounter Additional Health Concerns Infection Onset Date Last Indicated Resolved Time MRSA 03/30/2020 03/30/2020 COVID - 19 09/11/2024 09/11/2024 09/11/2024 7:21 PM RN ADMISSIONS Assessment Noted Time PHQ-9 Depression Total Score: 0 12/15/19 8:53 AM RN ADMISSIONS documented as of this encounter Care Teams Combination Building Inspector Relationship Specialty Start Date End Date John Méndez MD PCP - General Family Medicine 09/28/19 04/26/24 Dakota Fabian APRN, POSTPARTUM NURSE [address] [place] [address] [address] PCP - General Advanced Practice Nurse 04/27/24 documented as of this encounter
--- OUTSIDE RECORDS SUMMARY | 2024-10-20 03:52 | XMS_ITS | Encounter Summary ---
Author Organization [facility] Address [address] [facility] 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 Requested Prescriptions Pending Prescriptions Disp Refills tiZANidine (ZANAFLEX) 4 MG Tablet [Pharmacy Med Name: TIZANIDINE HCL 4 MG TABLET] 30 Tablet 2 Sig: Take 1 Tablet by mouth nightly as needed for Muscle spasms. Not Delegated - Muscle Relaxants Protocol Failed - 12/02/2022 2:13 PM Failed - This refill cannot be delegated Passed - Visit with relevant provider in past 12 months or upcoming 90 days Recent Visits Date Type Provider Dept 09/03/22 Office Visit John M[facility]dez MD [facility] 04/29/22 Office Visit John Méndez MD [facility] 12/25/21 [facility] [place] Showing recent visits within past 365 [...] Range Status 09/03/2022 16 <=41 U/L Final ER KILN OPERATOR documented in this encounter Plan of Treatment Upcoming Encounters Date Type Department Care Team (Late st Contact Info) Description 11/02/2024 8:15 AM LUMBER KILN OPERATOR Office Visit [facility] #2 [place] [address] Dakota Fabian APRN, DIRECTOR CAREER #[address] [address] 11/26/2024 11:30 AM LUMBER KILN OPERATOR Office Visit [facility] - Family Medicine [facility] #[address] [place] [address] Maggie Tolentino PAC #2 [place] [address] documented as of this encounter Visit Diagnoses Diagnosis Degenerative lumbar disc Degeneration of lumbar or lumbosacral intervertebral disc documented in this encounter Additional Health Concerns Infection Onset Date Last Indicated Resolved Time MRSA 03/30/2020 03/30/2020 COVID - 19 09/11/2024 09/11/2024 09/11/2024 7:21 PM LUMBER KILN OPERATOR Assessment Noted Time PHQ-9 Depression Total Score: 0 12/15/19 8:53 AM LUMBER KILN OPERATOR documented as of this encounter Care Teams Casket Liner Relationship Specialty Start Date End Date John Méndez MD PCP - General Family Medicine 09/28/19 04/26/24 Dakota Fabian, OCULAR CARE AIDE, DIRECTOR CAREER [address] [address] PCP - General Advanced Practice Nurse 04/27/24 documented as of this encounter
--- OUTSIDE RECORDS SUMMARY | 2024-10-20 03:52 | XMS_ITS | Encounter Summary ---
Author Organization [facility] Address [address] [facility] 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 No / Unsure 06/24/2022 10:31 AM CDT documented as of this encounter Miscellaneous Notes * Telephone Encounter - Antoinette Arora RN - 07/10/2022 11:48 AM CDT PDMP 06/18/22 Medication failed the protocol, provider to review and approve the medication order if appropriate. Requested Prescriptions Pending Prescriptions Disp Refills acetaminophen-codeine (TYLENOL #3) 300-30 MG Tablet [Pharmacy Med Name: ACETAMINOPHEN-COD #3 TABLET] 90 Tablet 0 Sig: TAKE 1 TABLET BY MOUTH THREE TIMES A DAY NEEDED FOR SEVERE PAIN Not Delegated - Opioid Combinations Protocol Failed - 07/10/2022 9:45 AM Failed - This refill cannot be [...] st Contact Info) Description 11/02/2024 8:15 AM EDITOR DEPARTMENT Office Visit [facility] [address] [place] [address] Dakota Fabian APRN, MIDDLE SCHOOL BASEBALL COACH [address] [address] 11/26/2024 11:30 AM EDITOR DEPARTMENT Office Visit [facility] #2 [place] [address] Maggie Tolentino, [facility] #2 [place] [address] documented as of this encounter Visit Diagnoses Diagnosis Sacroiliac joint dysfunction of both sides Disorders of sacrum Degenerative lumbar disc Degeneration of lumbar or lumbosacral intervertebral disc documented in this encounter Additional Health Concerns Infection Onset Date Last Indicated Resolved Time MRSA 03/30/2020 03/30/2020 COVID - 19 09/11/2024 09/11/2024 09/11/2024 7:21 PM EDITOR DEPARTMENT Assessment Noted Time PHQ-9 Depression Total Score: 0 12/15/19 8:53 AM EDITOR DEPARTMENT documented as of this encounter Care Teams Asbestos Siding Installer Relationship Specialty Start Date End Date John Méndez MD PCP - General Family Medicine 09/28/19 04/26/24 Dakota Fabian, DATA MIGRATION CONSULTANT, MIDDLE SCHOOL BASEBALL COACH #[address] [address] PCP - General Advanced Practice Nurse 04/27/24 documented as of this encounter
--- OUTSIDE RECORDS SUMMARY | 2024-10-20 03:52 | XMS_ITS | Encounter Summary ---
Author Organization [facility] Address [address] [place] [address] Phone Care Team Providers Care Machine Tank Operator Name Role Phone John Méndez MD Primary Care Provider [phone] Reason for Referral * Consult, Test & Initiate Treatment (Routine) - Closed Specialty Diagnoses / Procedures Referred By Magui jacobo Referred To Contact Gastroenterology Diagnoses Encounter for screening colonoscopy Maggie Tolentino PAC [address] [place] [address] Phone: tel: fax: [facility] Medical [facility] - Gastroenterology [facility] [address] [place] [address] Phone: tel: fax: Referral ID Status Reason Start Date Expiration Date Visits Re quested Visits Authorized [id number] Closed 01/03/2023 1 1 Scheduling Instructions Melinda is being referred for screening colonoscopy. Please contact patient for scheduling questions or concerns. * Radiology Services (Routine) - Canceled Specialty Diagnoses / Procedures Referred By Magui jacobo Referred To Contact Radiology Diagnoses Screening mammogram for breast cancer Procedures MARCO A SCREENING BILATERAL DIGITAL W CAD W SHENG Maggie Tolentino PAC [address] [place] [address] Phone: tel: fax: Referral ID Status Reason Start Date Expiration Date V isits Requested Visits Authorized [id number] Canceled 01/03/2023 1 1 Reason for Visit * Reason Comments Follow-up 4 mo f/u Encounter Details Date Type Department Care Team (Late st Contact Info) Description 01/03/2023 3:30 PM CDT Office Visit 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 No / Unsure 01/03/2023 2:54 PM CDT documented as of this encounter Last Filed Vital Signs Vital Sign Reading Time Taken Comments Blood Pressure 108/80 01/03/2023 2:55 PM CDT Pulse 74 01/03/2023 2:55 PM CDT Temperature 36.3 ??C (97.3 ??F) 01/03/2023 2:55 PM CD T Respiratory Rate 16 01/03/2023 2:55 PM CDT Oxygen Saturation 98% 01/03/2023 2:55 PM CDT Inhaled Oxygen Concentration - - Weight 103.4 kg (228 lb) 01/03/2023 2:55 PM CDT Height 160 cm (5' 3 ) 01/03/2023 2:55 PM CDT Body Mass Index 40.39 01/03/2023 2:55 PM CDT documented in this encounter Functional Status * Question Answer Date of Assessment Author Little interest or pleasure in doing things Not at all 01/03/2023 2:56 PM CDT Jamaica Boone MA Feeling down, depressed, or hopeless Not at all 01/03/2023 2:56 PM CDT Malbe Boone MA * Over the past 2 weeks, how often have you been bothered by any of the following problems? Question Answer Date of Assessment Author Patient Health Questionnaire-2 Score 0 01/03/2023 2:56 PM CDT Deejay Boone MA documented as of this encounter Progress Notes * Jamaica Boone MA - 01/03/2023 3:30 PM CDT Melinda Olmedo, 47 y.o., female is here for Follow-up (4 mo f/u) Medication Refills: Patient reports/denies need for medication refills. Orders Pended: no Requested Prescriptions No prescriptions requested or ordered in this encounter Home Medications Medication Sig Start Date End Date Taking? Authorizing Provider acetaminophen-codeine (TYLENOL #3) 300-30 MG Tablet TAKE 1 TABLET BY MOUTH 3 TIMES A DAY NEEDED FOR SEVERE PAIN. 12/10/22 Yes John Méndez MD albuterol (PROVENTIL/VENTOLIN) 1.25 [...] addressed with the patient today: Depression * Maggie Tolentino, PAC - 01/03/2023 3:30 PM CDT Subjective: Patient in the office today for health conditions. She has hypertension and well controlled. Hyperlipidemia. Discussed she takes Tylenol threes for chronic back pain. No side effects from medication.No sedation no constipation. Review of Systems Constitutional: Negative for chills and fever. Respiratory: Negative for cough and shortness of breath. Cardiovascular: Negative for chest pain. Gastrointestinal: Negative for abdominal pain. Genitourinary: Negative for difficulty urinating and dysuria. Musculoskeletal: Positive for back pain. Neurological: Negative for weakness. Objective: Physical Exam Vitals reviewed. Constitutional: Appearance: Normal appearance. She is not ill-appearing. HENT: Head: Normocephalic. Eyes: General: Right eye: No discharge. Left eye: No discharge. Extraocular Movements: Extraocular movements intact. Cardiovascular: Rate and Rhythm: Normal rate and regular rhythm. Heart sounds: No murmur heard. Pulmonary: Effort: Pulmonary effort is normal. No respiratory distress. Breath sounds: Normal breath sounds. No wheezing. Neurological: Mental Status: She is alert. Psychiatric: Mood and Affect: Mood normal. . Lab Results Component Value Date SODIUM 140 09/03/2022 POTASSIUM 3.7 09/03/2022 CHLORIDE 103 09/03/2022 CO2VEN 28 09/03/2022 ANIONGAP 12.7 09/03/2022 GLUCOSE 88 09/03/2022 BUN 12 09/03/2022 CREATININE 0.74 09/03/2022 BCRATIO8 16 09/03/2022 TOTALPROTEIN 7.3 09/03/2022 ALBUMIN 4.4 09/03/2022 CALCIUM 9.4 09/03/2022 TBIL <0.3 09/03/2022 SGOTAST 23 09/03/2022 SGPTALT 16 09/03/2022 ALKALINEPHO 83 09/03/2022 GFRNA >60 09/03/2022 GFRA >60 09/03/2022 GFRES >60 09/03/2022 . Lab Results Component Value Date WBC 6.13 09/03/2022 HEMOGLOBIN 12.7 09/03/2022 HEMATOCRIT 40.6 09/03/2022 PLATELETCNT 448 (H) 09/03/2022 MCV 90.4 09/03/2022 . Lab Results Component Value Date TSH 2.140 09/03/2022 . Lab Results Component Value Date CHOLESTEROL 216 (H) 09/03/2022 TRIGLYCRIDES 226 (H) 09/03/2022 HDLCHOLESTE 56.2 09/03/2022 LDL 115 09/03/2022 Assessment and Plan See Diagnoses, Orders, Follow-up, and Instructions .Diagnoses and all orders for this visit: Sacroiliac joint dysfunction of both sides - URINE DRUG SCREEN; Future High risk medication use - URINE DRUG SCREEN; Future Screening mammogram for breast cancer - MARCO A SCREENING BILATERAL DIGITAL W CAD W SHENG; Future Encounter for screening colonoscopy - GASTROENTEROLOGY REFERRAL; Future Hypertension, unspecified type Mixed hyperlipidemia Patient to continue current blood pressure medication as directed blood pressure controlled. Cholesterol further control continue statin therapy. Referrals placed for screening colonoscopy in screening mammogram. She will continue with Tylenol No. 3 for pain management. Denies any side effects frommedication. Urine drug screen ordered. Return to clinic in 4 months for routine follow-up with PCP. documented in this encounter Plan of Treatment Upcoming Encounters Date Type Department Care Team (Late st Contact Info) Description 11/02/2024 8:15 AM SILK EXAMINER Office Visit [facility] - Family Medicine - [place] [address] [place] [address] Dakota Fabian, SAT ACT INSTRUCTOR, DIET TECHNICIAN REGISTERED [address] [address] 11/26/2024 11:30 AM SILK EXAMINER Office Visit [facility] - Family Medicine - [place] [address] [place] [address] Maggie Tolentino, PAC [address] [place] [address] Scheduled Orders Name Type Priority Associated Diagnoses Orde r Schedule URINE DRUG SCREEN Lab Routine Sacroiliac joint dysfunction of both sides High risk medication use Expected: 04/29/2023, Expires: 10/30/2023 MARCO A SCREENING BILATERAL DIGITAL W CAD W SHENG Imaging Routine Screening mammogram for breast cancer Expected: 10/16/2023, Expires: 04/15/2024 Scheduled Referrals Name Type Priority Associated Diagnoses Order Schedule GASTROENTEROLOGY REFERRAL Outpatient Referral Routine Encounter for screening colonoscopy Expected: 01/03/2023, Expires: 01/04/2024 documented as of this encounter Visit Diagnoses Diagnosis Sacroiliac joint dysfunction of both sides- Primary Disorders of sacrum High risk medication use Encounter for long-term (current) use of other medications Screening mammogram for breast cancer Encounter for screening colonoscopy Special screening for malignant neoplasms, colon Hypertension, unspecified type Mixed hyperlipidemia documented in this encounter Additional Health Concerns Infection Onset Date Last Indicated Resolved Time MRSA 03/30/2020 03/30/2020 Assessment Noted Time PHQ-9 Depression Total Score: 0 01/04/20 23 2:56 PM CDT documented as of this encounter Care Teams Machine Tank Operator Relationship Specialty Start Date End Date John Méndez MD PCP - General Family Medicine 09/28/19 04/26/24 documented as of this encounter
--- OUTSIDE RECORDS SUMMARY | 2024-10-20 03:52 | XMS_ITS | Encounter Summary ---
Author Organization [facility] Address [address] [place] [address] Phone Care Team Providers Care Emt Paramedic Name Role Phone John Méndez MD Primary Care Provider [phone] Reason for Referral * Radiology Services (Routine) - Closed Specialty Diagnoses / Procedures Referred By Contac t Referred To Contact Radiology Diagnoses Nausea and vomiting, unspecified vomiting type Upper abdominal pain Procedures NM HEPATOBILIARY WITH PHARM Elvia Molina PAC [address] [place] [address] Phone: tel: fax: Referral ID Status Reason Start Date Expiration Date Visits Re quested Visits Authorized [id number] Closed 05/08/2022 1 1 Reason for Visit * Radiology Services (Routine) - Closed Specialty Diagnoses / Procedures Referred By Contaliza jacobo Referred To Contact Radiology Diagnoses Nausea and vomiting, unspecified vomiting type Upper abdominal pain Procedures NM HEPATOBILIARY WITH PHARM Elvia Molina PAC [address] [place] [address] Phone: tel: fax: Referral ID Status Reason Start Date Expiration Date Visits Re quested Visits Authorized [id number] Closed 05/08/2022 1 1 Encounter Details Date Type Department Care Team (Latest Contact Info) Description 05/21/2022 9:43 AM CDT - 05/21/2022 11:59 PM CDT Hospital Encounter [facility] Nuclear Medicine [address] [place] [address] MolinaElvia henderson, PAC [address] [place] [address] Discharge Disposition: Discharged to home or Selfcare Social History Tobacco Use Types Packs/Day Years Used Date Smoking Tobacco: Never Smokeless Tobacco: Never Alcohol Use Standard Drinks/Week Comments No 0 (1 standard drink = 0.6 oz pur e alcohol) PHQ-2 Answer Date Recorded Total Score - Questions 1-9 0 /0 01/2021 Sexually Active Control Partners Comments Yes Male Comments No Sex and Gender Information Value Date Recorded Sex Assigned at Not on file Legal Sex Female 12:28 AM CDT Gender Identity Not on file Sexual Orientation Not on file 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 No / Unsure 05/21/2022 9:37 AM CDT documented as of this encounter Medications at Time of Discharge acetaminophen-code ine (TYLENOL #3) 300-30 MG TabletIndications: Sacroiliac joint dysfunction of both sides,Degenerative lumbar disc Take 1 Tablet by mouth 3 times daily as needed for Severe pain. 90 Tablet 04/29/2022 2 albuterol (PROVENTIL/VENTOLI N) 1.25 MG/3ML Nebulizer SolnIndications:Wh eezing take 3 mL by inhalation every 4 hours as needed for Wheezing or Cough. 300 mL 1 04/29/2022 2 albuterol 108 (90 Base) MCG/ACT Aerosol SolutionIndication s:Wheezing take 2 Puffs by inhalation every 4 hours as needed for Wheezing. 18 g 1 04/29/2022 2 amLODIPine (NORVASC) 10 MG TabletIndications: Primary hypertension Take 1 Tablet by mouth daily. 90 Tablet 2 04/29/2022 3 atorvastatin (LIPITOR) 20 MG TabletIndications: High cholesterol Take 1 Tablet by mouth every evening. 90 Tablet 3 04/29/2022 3 Benzonatate 200 MG Capsule Take 1 Capsule by mouth 3 times daily as needed for Cough for up to 14 days. 42 Capsule 05/10/2022 2 buPROPion (WELLBUTRIN) 150 MG XL tablet Take 1 Tablet by mouth every morning. 90 Tablet 04/29/2022 2 cetirizine (ZyrTEC) 10 MG TabletIndications: Chronic sinusitis, unspecified location Take 1 Tablet by mouth daily. 30 Tablet 11 04/29/2022 3 escitalopram (LEXAPRO) 20 MG Tablet Take 1 Tablet by mouth daily. 90 Tablet 1 04/29/2022 3 losartan (COZAAR) 50 MG Tablet Take 1 Tablet by mouth daily. 90 Tablet 3 04/29/2022 4 montelukast (SINGULAIR) 10 MG TabletIndications: Chronic sinusitis, unspecified location Take 10 mg by mouth daily. 3 06/14/2019 2 naloxone HCl (Narcan) 4 MG/0.1ML LiquidIndications: Degenerative lumbar disc One spray in nostril Q 2-3 minutes until pt improves or until emergency units arrive to assume care. 2 Each 2 04/29/2022 4 omeprazole (PriLOSEC) 40 MG CAPSULE DELAYED RELEASE Take 1 Capsule by mouth daily. 90 Capsule 3 04/29/2022 4 documented as of this encounter Plan of Treatment Upcoming Encounters Date Type Department Care Team (Late st Contact Info) Description 11/02/2024 8:15 AM YARN POLISHING MACHINE OPERATOR Office Visit [facility] - Family Medicine [facility] [address] [place] [address] Dakota Fabian, DEAF/HARD OF HEARING SPECIALIST, PAYER SPECIALIST [address] [place] [address] [address] 11/26/2024 11:30 AM YARN POLISHING MACHINE OPERATOR Office Visit [facility] [address] [facility] [place] [address] Maggie Tolentino, PAC [address] [facility] [place] [address] documented as of this encounter Procedures Procedure Name Priority Date/Time Associated Diagnosis Comments NM HEPATOBILIARY WITH PHARM Routine 05/21/2022 11:51 AM CDT Nausea and vomiting, unspecified vomiting type Upper abdominal pain documented in this encounter Results * NM HEPATOBILIARY WITH PHARM (05/21/2022 11:51 AM CDT) Anatomical Region Laterality Modality Abdomen N/A Nuclear Medicine 05/21/2022 4:56 PM CDT Impressions 05/21/2022 4:59 PM CDT IMPRESSION: ?? No scintigraphic evidence of cystic duct obstruction. ??Normal contractile response of the gallbladder to fatty meal stimulation. Narrative 05/21/2022 4:59 PM CDT EXAM DESCRIPTION: ?? NM HEPATOBILIARY WITH PHARM RADIOPHARMACEUTICAL: ?? 5.1 ??mCi Tc-99m mebrofenin via a ?? right antecubital ??IV site and 8 oz Ensure Plus or equivalent P.O. REASON FOR STUDY: ?? Right upper quadrant pain for 1 year TECHNIQUE: Following the intravenous administration of the radiopharmaceutical, sequential abdominal images were obtained. COMPARISON: ?? CT dated March 22, 2022 FINDINGS: ?? There is prompt, homogenous tracer localization throughout the liver. There is normal visualization of the intrahepatic ducts, common bile duct, and gallbladder. ??There is normal biliary to bowel transit. Following the oral administration of Ensure Plus or equivalent, the gallbladder ejection fraction was calculated and was ?? 75% ??(normal: greater than 40%, equivocal: 30-40%, and abnormal: less than 30%). THIS IS AN ELECTRONICALLY VERIFIED FINAL REPORT 05/21/2022 4:56 PM - Electronically signed by ??Jackson CUNNINGHAM: MARISA D: ??05/21/2022 4:56 PM T: ??05/21/2022 4:56 PM Report ID: [id number] Reading Location: ??[id number] Procedure Note Jackson Barrera MD - 05/21/2022 EXAM DESCRIPTION: NM HEPATOBILIARY WITH PHARM RADIOPHARMACEUTICAL: 5.1 mCi Tc-99m mebrofenin via a right antecubital IV site and 8 oz Ensure Plus or equivalent P.O. REASON FOR STUDY: Right upper quadrant pain for 1 year TECHNIQUE: Following the intravenous administration of the radiopharmaceutical, sequential abdominal images were obtained. COMPARISON: CT dated March 22, 2022 FINDINGS: There is prompt, homogenous tracer localization throughout the liver. There is normal visualization of the intrahepatic ducts, common bile duct, and gallbladder. There is normal biliary to bowel transit. Following the oral administration of Ensure Plus or equivalent, the gallbladder ejection fraction was calculated and was 75% (normal: greater than 40%, equivocal: 30-40%, and abnormal: less than 30%). THIS IS AN ELECTRONICALLY VERIFIED FINAL REPORT 05/21/2022 4:56 PM - Electronically signed by Jackson CUNNINGHAM: MARISA Report ID: [id number] Reading Location: [id number] IMPRESSION: No scintigraphic evidence of cystic duct obstruction. Normal contractile response of the gallbladder to fatty meal stimulation. Elvia Molina PAC IM NM ORDERABLES Final R esult documented in this encounter Visit Diagnoses Diagnosis Nausea and vomiting, unspecified vomiting type Upper abdominal pain Abdominal pain, other specified site documented in this encounter Administered Medications Inactive Administered Medications - up to 3 most recent administrations Medication Order MAR Action Action Date Dose Rate Site TC-99M MEBROFENIN PER DOSE,UP TO 15 MCI 1 Dose, Intravenous, ONCE, 1 dose, On Fri05/21/22 at 1030 Given 05/21/2022 10:00 AM CDT 1 Dose documented in this encounter Additional Health Concerns Infection Onset Date Last Indicated Resolved Time 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
--- OUTSIDE RECORDS SUMMARY | 2024-10-20 03:52 | XMS_ITS | Encounter Summary ---
Author Organization [facility] Address [address] 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 No / Unsure 05/08/2022 10:01 AM CDT documented as of this encounter Miscellaneous Notes * Telephone Encounter - Caryn Watts RN - 05/10/2022 4:36 PM CDT Patient calling back to make sure when she was on the phone earlier with another nurse that she wasable to hear her about tessalon perles causing her to have increased anxiety. RN advised patient that this was noted and she didn't have to picking machine operator helper the prescription. She stated she won't. She stated the cough syrup does not make her feel like that. Advised per Dr Méndez's note below that provider was not going to prescribe the cough syrup. RN advised her to use cough drops, steamy showers/bathroom, sipping warm fluids for cough. She verbalized understanding and agreed with plan. FYI * Telephone Encounter - Kelly Palacios RN - 05/10/2022 3:06 PM CDT Called patient back to let her know PCP has sent in Tessalon Perles to pharmacy for cough, patient states that every time she takes them It triggers my anxiety, my heart races and I get really sweat Told pt script was sent to pharmacy already but I will let PCP know. * Telephone Encounter - John Méndez MD - 05/10/2022 2:08 PM CDT I will send her in tessalon perles she has called a lot and wants the codeine cough syrup and I am not going to order this all the time. * Telephone Encounter - Dulce Carter RN - 05/10/2022 12:56 PM CDT SITUATION: Suspected covid BACKGROUND: Onset symptoms 05/06/22 Patient is living at home with 3 covid positive children and as well as a covid positive mother and nephew. Highly suspect that patient has covid as well. ASSESSMENT: Patient states symptoms have improved over the last few days. Currently: Head congestion/pressure Ringing in ears- Plugged ear- Post nasal drip- causing scratchy throat Dry nagging cough that patient believes is from post nasal drip Cough is bad at night and patient has not been sleeping well Patient has been fever free since 05/09/22 Patient no longer has headache, body ache, joint pain Denies ear pain, chest pain or pressure, difficulty breathing Treatment: Robitussin- no relief RECOMMENDATION: See care advice and disposition for Guideline Guideline recommends to discuss with pcp and RN call back within 1 hour due HTN and BMI of 41.88 Patient requesting a cough medicine that patient has used in the past that had codeine in it which helped patient to relax and sleep better at night. Patient states is not interested in taking Paxlovid as does not want the side effects Please advise on request for cough suppressant with codeine and any other recommendations for patient Allergies, pharmacy, and medications reviewed Assistive services verified First positive answer recorded, all responses to prior questions were negative. If symptoms increase, change or if new symptoms develop, call your HCP or call back. Recommendations were based on caller information and is not a diagnosis. Verified and reviewed all triage information with caller. Reason for Disposition ? ? HIGH RISK for severe COVID complications (e.g., weak immune system, age > 64 years, obesity with BMI > 25, , chronic lung disease or other chronic medical condition) (Exception: Already seen by PCP and no new or worsening symptoms.) Protocols used: CORONAVIRUS (COVID-19) DIAGNOSED OR [id number] documented in this encounter Plan of Treatment Upcoming Encounters Date Type Department Care Team (Late st Contact Info) Description 11/02/2024 8:15 AM ARRT TECHNOLOGIST Office Visit [facility] - Family [facility] [address] [place] [address] Dakota Fabian, POLICEWOMAN, HAND SINGER [address] [address] 11/26/2024 11:30 AM ARRT TECHNOLOGIST Office Visit [facility] - [facility] [address] [place] [address] Maggie Tolentino, PAC [address] [place] [address] documented as of this encounter Visit Diagnoses Not on filedocumented in this encounter Additional Health Concerns Infection Onset Date Last Indicated Resolved Time MRSA 03/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
--- OUTSIDE RECORDS SUMMARY | 2024-10-20 03:53 | XMS_ITS | Encounter Summary ---
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 No / Unsure 08/02/2021 5:13 PM CDT documented as of this encounter Plan of Treatment Upcoming Encounters Date Type Department Care Team (Late st Contact Info) Description 11/02/2024 8:15 AM MEDICAL REIMBURSEMENT MANAGER Office Visit [facility] Medical Group - Family Medicine [facility] [address] [place] [address] Dakota Fabian, PRINCIPAL SCIENTIST, EXTENSION FORESTER [address] [address] 11/26/2024 11:30 AM MEDICAL REIMBURSEMENT MANAGER Office Visit [facility] - [facility] - [place] [address] [place] [address] Maggie Tolentino, PAC [address] [place] [address] documented as of this encounter Visit Diagnoses Not on filedocumented in this encounter Additional Health Concerns Infection Onset Date Last Indicated Resolved Time MRSA 03/30/2020 03/30/2020 Assessment Noted Time PHQ-9 Depression Total Score: 0 12/15/19 21 8:53 AM MEDICAL REIMBURSEMENT MANAGER documented as of this encounter Care Teams Extruder Operator Multiple Relationship Specialty Start Date End Date John Méndez MD PCP - General Family Medicine 09/28/19 04/26/24 documented as of this encounter
--- OUTSIDE RECORDS SUMMARY | 2024-10-20 03:53 | XMS_ITS | Encounter Summary ---
Author Organization [facility] Address [address] 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 No / Unsure 06/24/2022 10:31 AM CDT documented as of this encounter Miscellaneous Notes * Telephone Encounter - Antoinette Arora RN - 12/25/2021 9:38 AM CDT December 24, 2021 John Méndez MD to [facility] ?? 5:07 PM Note This is ok for her to come in. This should have been put somewhere else as I didn't know that I needed to look at it. Also I am not refilling this as she has been told multiple times. * Telephone Encounter - Maco Glass - 12/24/2021 11:31 AM CDT Patient request refill documented in this encounter Plan of Treatment Upcoming Encounters Date Type Department Care Team (Late st Contact Info) Description 11/02/2024 8:15 AM DIVISION CHIEF Office Visit [facility] [place] [address] [place] [address] Dakota Fabian APRN, SAMPLE DISPLAY PREPARER #[address] [address] 11/26/2024 11:30 AM DIVISION CHIEF Office Visit [facility] [place] [address] [place] [address] Maggie Tolentino, PAC [address] [place] [address] documented as of this encounter Visit Diagnoses Diagnosis Sacroiliac joint dysfunction of both sides Disorders of sacrum Degenerative lumbar disc Degeneration of lumbar or lumbosacral intervertebral disc documented in this encounter Additional Health Concerns Infection Onset Date Last Indicated Resolved Time MRSA 03/30/2020 03/30/2020 Assessment Noted Time PHQ-9 Depression Total Score: 0 12/15/19 21 8:53 AM DIVISION CHIEF documented as of this encounter Care Teams Flight Simulator Teacher Relationship Specialty Start Date End Date John Méndez MD PCP - General Family Medicine 09/28/19 04/26/24 documented as of this encounter
--- OUTSIDE RECORDS SUMMARY | 2024-10-20 03:53 | XMS_ITS | Encounter Summary ---
Author Organization [facility] Address [address] [facility] [place] [address] Phone Care Team Providers Care Final Coat Sprayer Name Role Phone John Méndez MD Primary Care Provider [phone] Reason for Visit * Reason Comments Medication Refill Patient is here for medication refill. Sinus Infection Patient states that she is having sinus pressure and runny nose. Encounter Details Date Type Department Care Team (Late st Contact Info) Description 12/25/2021 5:45 PM CDT Office Visit 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 No / Unsure 12/25/2021 5:23 PM CDT documented as of this encounter Last Filed Vital Signs Vital Sign Reading Time Taken Comments Blood Pressure 122/66 12/25/2021 6:06 PM CDT Pulse 76 12/25/2021 6:06 PM CDT Temperature 36.5 ??C (97.7 ??F) 12/25/2021 6:06 PM CD T Respiratory Rate 16 12/25/2021 6:06 PM CDT Oxygen Saturation 99% 12/25/2021 6:06 PM CDT Inhaled Oxygen Concentration - - Weight 111.4 kg (245 lb 8 oz) 12/25/2021 6:06 PM CDT Height 160 cm (5' 3 ) 12/25/2021 6:06 PM CDT Body Mass Index 43.49 12/25/2021 6:06 PM CDT documented in this encounter Progress Notes * Paradise Carmichael - 12/25/2021 5:45 PM CDT Melinda Olmedo, 46 y.o., female is here for Medication Refill (Patient is here for medication refill.) and Sinus Infection (Patient states that she is having sinus pressure and runny nose.) Medication Refills: Patient reports/denies need for medication refills. Orders Pended: yes Requested Prescriptions Pending Prescriptions Disp Refills ??? acetaminophen-codeine (TYLENOL #3) 300-30 MG Tablet 90 Tablet 0 Sig: Take 1 Tablet by mouth 3 times daily as needed for Mild or more severe pain. Need to try and call med in 5-7 days prior to needing refill This given time and accounts for doctor possibly being out. ??? amLODIPine (NORVASC) 10 MG Tablet 90 Tablet Sig: Take 1 Tablet by mouth daily. ??? atorvastatin (LIPITOR) 20 MG Tablet 90 Tablet 3 Sig: Take 1 Tablet by mouth every evening. Home Medications Medication Sig Start Date End Date Taking? Authorizing Provider acetaminophen-codeine (TYLENOL #3) 300-30 MG Tablet Take 1 Tablet by mouth 3 times daily as needed for Mild or more severe pain. Need to try and call med in 5-7 days prior to needing refill This given time and accounts for doctor possibly being out. 11/26/21 Yes John Méndez MD albuterol (PROVENTIL/VENTOLIN) 1.25 MG/3ML Nebulizer Soln take 3 mL by inhalation every 4 hours as needed for Wheezing or Cough. 06/09/20 Yes John Méndez MD albuterol 108 (90 Base) MCG/ACT Aerosol Solution TAKE 2 PUFFS BY INHALATION EVERY 4 HOURS NEEDEDFOR WHEEZING OR COUGH. 08/25/20 Yes John Méndez MD amLODIPine (NORVASC) 10 MG Tablet Take 10 mg by mouth daily. 02/23/21 Yes Adolfo Sotomayor MD atorvastatin (LIPITOR) 20 MG Tablet Take 1 Tab by mouth every evening. 09/28/19 Yes John Méndez MD buPROPion (WELLBUTRIN) 300 MG TABLET SR 24 HR XL tablet Take 300 mg by mouth daily. Patient not taking: No sig reported 06/14/19 Adolfo Sotomayor MD cetirizine (ZyrTEC) 10 MG Tablet TAKE 1 TABLET BY MOUTH EVERY DAY 06/28/21 Yes John Méndez MD escitalopram (LEXAPRO) 20 MG Tablet TAKE 1 TABLET BY MOUTH EVERY DAY 08/22/21 Yes John Méndez MD montelukast (SINGULAIR) 10 MG Tablet Take 10 mg by mouth daily. 06/14/19 Yes Adolfo Sotomayor MD tiZANidine (ZANAFLEX) 2 MG Capsule Take 2 mg by mouth nightly. Yes Adolfo Sotomayor MD There are no discontinued medications. I have reviewed the home medication list with the patient and have reconciled discrepancies. The list is accurate to the best of my knowledge. Smoking Status: Social History Tobacco Use ??? Smoking status: Never Smoker ??? Smokeless tobacco: Never Used Vaping Use ??? Vaping Use: Never used Substance Use Topics ??? Alcohol use: No ??? Drug use: No Smoking Cessation Counseling Given: yes Health Care Maintenance: Health Maintenance Due Topic Date Due ??? SARS-COV-2 Immunization (1) Never done ??? Pap Smear Never done ??? Influenza Immunization (1) 06/13/2021 Orders Pended: no The following BPA's have been addressed with the patient today: Flu and Pap * John Méndez MD - 12/25/2021 5:45 PM CDT Subjective: Chief Complaint Patient presents with ??? Medication Refill Patient is here for medication refill. ??? Sinus Infection Patient states that she is having sinus pressure and runny nose. History of Present Illness: Melinda Olmedo is a 46 y.o. female who presents for follow up. She states one of her daughters was symptomatic for COVID-19 and the other daughter was not symptomatic. Patient has runny nose. She denies any pain in her ears but has some pressure. She feels her lymph nodes are swollen. She is wondering whether she has sinus infection, allergies or cold. She is on allergy medications. Patient's medications, allergies, past medical, surgical, social and family histories were reviewedand updated as appropriate. Review of Systems: HEENT: Reports congestion. LUNGS: Denies cough and shortness of breath. HEART: Denies chest pain and palpitations. GI: Denies nausea, vomiting, diarrhea, constipation, and abdominal pain. : Denies frequency, dysuria, and nocturia. Objective: BP 122/66 (BP Location: Right Arm, BP Position: Sitting, BP Cuff Size: Regular) Pulse 76 Temp 97.7 ??F (36.5 ??C) (Temporal) Resp 16 Ht 5' 3 Wt 245 lb 8 oz LMP (LMP Unknown) Comment: full SpO2 99% BMI 43.49 kg/m?? Physical Exam: GENERAL: well-developed, well-nourished, and no acute distress. HEENT: NC, AT, PERRLA, EOMI, Tm's intact, nonerythematous. She does have effusions noted bilaterally. Nasal mucosa erythamatous bilaterally. She does have positive frontal sinus tenderness bilaterally. She has enlarged turbinates. O/P erythematous. No lesion or exudate. NECK: supple, no thyromegaly, and positive cervical LAD. LUNGS: clear to auscultation bilaterally, respiratory effort normal, and no wheezes, rales or rhonchi. HEART: regular rate and rhythm, S1, S2, and no murmurs. ABDOMEN: soft, non-tender, no rebound, and no HSM. EXTREMITIES: no edema and peripheral pulses intact. Past labs, radiology, and medical records reviewed with patient/caregiver. All questions answered. Assessment/Plan: 1. Sacroiliac joint dysfunction of both sides Given refill on tylenol with codeine. She is up to date on her uds and med use agreement. Needs to follow up every 4 months for refills. She is checked on the PDMP. There are no signs of diversion - acetaminophen-codeine (TYLENOL #3) 300-30 MG Tablet; Take 1 Tablet by mouth 3 times daily as needed for Mild or more severe pain. Need to try and call med in 5-7 days prior to needing refill This given time and accounts for doctor possibly being out. Dispense: 90 Tablet; Refill: 0 2. Degenerative lumbar disc Given refills today. - acetaminophen-codeine (TYLENOL #3) 300-30 MG Tablet; Take 1 Tablet by mouth 3 times daily as needed for Mild or more severe pain. Need to try and call med in 5-7 days prior to needing refill This given time and accounts for doctor possibly being out. Dispense: 90 Tablet; Refill: 0 3. High cholesterol Cont with current meds. Given refill on the atorvastatin. - atorvastatin (LIPITOR) 20 MG Tablet; Take 1 Tablet by mouth every evening. Dispense: 90 Tablet; Refill: 3 4. Primary hypertension Cont with current medications. Stable. - amLODIPine (NORVASC) 10 MG Tablet; Take 1 Tablet by mouth daily. Dispense: 90 Tablet; Refill: 2 5. Acute non-recurrent frontal sinusitis Start on azithromycin. - azithromycin (ZITHROMAX) 500 MG Tablet; Take 1 Tablet by mouth daily for 5 days. Dispense: 5 Tablet; Refill: 0 Plan: Probable sinus infection. Patient's blood pressure was normal today. Follow up: Return in about 4 months (around 04/26/2022). Patient given verbal and/or written education. She indicated understanding and agreed to the treatment plan. She will call the office or seek immediate medical attention if present symptoms worsen ornew ones develop. Patient gave verbal consent to use virtual scribe/best second jobs service, Asaf, understanding ourvisit was being recorded for purposes of improving efficiency of documentation and enhancing clinicexperience for patients. Transcribed by Asaf at 3:38 AM on 12/26/2021. documented in this encounter Plan of Treatment Upcoming Encounters Date Type Department Care Team (Late st Contact Info) Description 11/02/2024 8:15 AM PASSENGER BOOKING CLERK [facility] [place] [facility] [place] [address] [place] [address] Dakota Fabian APRN, TOOL LIAISON [address] [address] 11/26/2024 11:30 AM PASSENGER BOOKING CLERK Office Visit [facility] [place] [facility] [place] [address] Maggie Tolentino, PAC [address] [place] [address] documented as of this encounter Visit Diagnoses Diagnosis Primary hypertension- Primary Unspecified essential hypertension Sacroiliac joint dysfunction of both sides Disorders of sacrum Degenerative lumbar disc Degeneration of lumbar or lumbosacral intervertebral disc High cholesterol Pure hypercholesterolemia Acute non-recurrent frontal sinusitis documented in this encounter Additional Health Concerns Infection Onset Date Last Indicated Resolved Time 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
--- OUTSIDE RECORDS SUMMARY | 2024-10-20 03:53 | XMS_ITS | Encounter Summary ---
Author Organization [facility] Address [address] 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 COURIER * Telephone Encounter - Antoinette Arora RN - 11/23/2021 10:03 AM CST PDMP 10/24/21 Medication failed the protocol, provider to review and approve the medication order if appropriate. Requested Prescriptions Pending Prescriptions Disp Refills acetaminophen-codeine (TYLENOL #3) 300-30 MG Tablet [Pharmacy Med Name: ACETAMINOPHEN-COD #3 TABLET] 90 Tablet 0 Sig: TAKE 1 TABLET BY MOUTH 3 TIMES DAILY NEEDED FOR MILD OR MORE SEVERE PAIN. Not Delegated - Opioid Combinations Protocol Failed - 11/23/2021 10:03 AM Failed - This refill cannot be delegated Passed - Visit with relevant provider in past 12 months or upcoming 90 days Recent Visits Date Type Provider Dept 05/01/21 Office Visit John Méndez MD [facility] 03/14/21 Office Visit John Méndez MD [facility] 01/11/21 Office Visit John Méndez MD [facility] 12/14/20 Office Visit John Méndez MD [facility] Showing recent visits within past 365 days and meeting all other requirements Future Appointments No visits were found meeting these conditions. Showing future appointments within next 90 days and meeting all other requirements COURIER documented in this encounter Plan of Treatment Upcoming Encounters Date Type Department Care Team (Late st Contact Info) Description 11/02/2024 8:15 AM LAB COURIER [place] [facility] [place] [address] Dakota Fabian APRN, WATERWAY TRAFFIC CHECKER #[address] [address] 11/26/2024 11:30 AM LAB COURIER [place] [facility] [place] [address] Maggie Tolentino, PAC [address] [place] [address] documented as of this encounter Visit Diagnoses Diagnosis Sacroiliac joint dysfunction of both sides Disorders of sacrum Degenerative lumbar disc Degeneration of lumbar or lumbosacral intervertebral disc documented in this encounter Additional Health Concerns Infection Onset Date Last Indicated Resolved Time MRSA 03/30/2020 03/30/2020 COVID - 19 09/11/2024 09/11/2024 09/11/2024 7:21 PM LAB COURIER Assessment Noted Time PHQ-9 Depression Total Score: 0 12/15/19 8:53 AM LAB COURIER documented as of this encounter Care Teams [employer] Stores [employer]cies Supervisor Relationship Specialty Start Date End Date John Méndez MD PCP - General Family Medicine 09/28/19 04/26/24 Dakota Fabian APRN, WATERWAY TRAFFIC CHECKER #[address] [address] PCP - General Advanced Practice Nurse 04/27/24 documented as of this encounter
--- OUTSIDE RECORDS SUMMARY | 2024-10-20 03:53 | XMS_ITS | Encounter Summary ---
Author Organization [facility] Address [address] [place] [address] Phone Care Team Providers Care Sustainability Consultant Name Role Phone John Méndez MD Primary Care Provider [phone] Reason for Referral * Radiology Services (Routine) - Closed Specialty Diagnoses / Procedures Referred By Magui jacobo Referred To Contact Radiology Diagnoses Encounter for screening mammogram for malignant neoplasm of breast Procedures MARCO A SCREENING BILATERAL DIGITAL W CAD W John Waterman MD Phone: tel: fax: Referral ID Status Reason Start Date Expiration Date Visits Re quested Visits Authorized [id number] Closed 07/26/2021 1 1 Reason for Visit * Radiology Services (Routine) - Closed Specialty Diagnoses / Procedures Referred By Magui jacobo Referred To Contact Radiology Diagnoses Encounter for screening mammogram for malignant neoplasm of breast Procedures MARCO A SCREENING BILATERAL DIGITAL W CAD W John Waterman MD Phone: tel: fax: Referral ID Status Reason Start Date Expiration Date Visits Re quested Visits Authorized [id number] Closed 07/26/2021 1 1 Encounter Details Date Type Department Care Team (Latest Contact Info) Description 08/02/2021 5:19 PM CDT - 08/02/2021 11:59 PM CDT Hospital Encounter [facility] [address] [place] [address] John Méndez MD [address] [place] [address] Discharge Disposition: Discharged to home or Selfcare [...] 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 No / Unsure 08/02/2021 5:13 PM CDT documented as of this encounter Medications at Time of Discharge acetaminophen-cod eine (TYLENOL #3) 300-30 MG TabletIndications :Sacroiliac joint dysfunction of both sides,Degenerativ e lumbar disc TAKE 1 TABLET BY MOUTH 3 TIMES DAILY NEEDED FOR MODERATE OR MORE SEVERE PAIN. DNF 06/23/21 90 Tablet 07/24/2021 1 albuterol (PROVENTIL/VENTOL IN) 1.25 MG/3ML Nebulizer SolnIndications:W heezing take 3 mL by inhalation every 4 hours as needed for Wheezing or Cough. 90 Vial 3 06/09/2020 2 albuterol 108 (90 Base) MCG/ACT Aerosol SolutionIndicatio ns:Wheezing,Bronc hospasm, acute TAKE 2 PUFFS BY INHALATION EVERY 4 HOURS NEEDED FOR WHEEZING OR COUGH. 17 Inhaler 2 08/25/2020 2 amLODIPine (NORVASC) 10 MG Tablet Take 10 mg by mouth daily. 02/23/2021 2 atorvastatin (LIPITOR) 20 MG TabletIndications :High cholesterol Take 1 Tab by mouth every evening. 90 Tab 3 09/28/2019 2 buPROPion (WELLBUTRIN) 300 MG TABLET SR 24 HR XL tabletIndications :Moderate episode of recurrent major depressive disorder (HCC),Anxiety Take 300 mg by mouth daily. 2 06/14/2019 2 cetirizine (ZyrTEC) 10 MG TabletIndications :Chronic sinusitis, unspecified location TAKE 1 TABLET BY MOUTH EVERY DAY 30 Tablet 11 06/28/2021 2 escitalopram (LEXAPRO) 20 MG Tablet TAKE 1 TABLET BY MOUTH EVERY DAY 90 Tablet 1 03/13/2021 1 montelukast (SINGULAIR) 10 MG TabletIndications :Chronic sinusitis, unspecified location Take 10 mg by mouth daily. 3 06/14/2019 2 tiZANidine (ZANAFLEX) 2 MG Capsule Take 2 mg by mouth nightly. 2 documented as of this encounter Plan of Treatment Upcoming Encounters Date Type Department Care Team (Late st Contact Info) Description 11/02/2024 8:15 AM CONSUMER AFFAIRS SPECIALIST Office Visit [facility] [address] [place] [address] Dakota Fabian APRN, HOG RAISER [address] [address] 11/26/2024 11:30 AM CONSUMER AFFAIRS SPECIALIST Office Visit [facility] [address] [place] [address] Maggie Tolentino PAC [address] [place] [address] documented as of this encounter Procedures Procedure Name Priority Date/Time Associated Diagnosis Comments MARCO A SCREENING BILATERAL DIGITAL W CAD W SHENG Routine 08/02/2021 6:02 PM CDT Encounter for screening mammogram for malignant neoplasm of breast documented in this encounter Results * MARCO A SCREENING BILATERAL DIGITAL W [...] copy. Current study was also evaluated with [employer] version 7.2. 2D digital mammographic views, as well as 3D digital tomosynthesis were performed in the CC and MLO projections. ?? CLINICAL: Routine screening. Patient has no complaints. No personal history of cancer. Mother with premenopausal breast cancer. ?? COMPARISONS: Comparison is made to exams dated: ??07/22/2020, 09/05/2018, and 02/13/2016 [facility]. ?? BREAST TISSUE:The tissue of both breasts [...] Killian Sandoval M.D. ? ll/penrad:08/03/2021 11:33:14 ?? Electron Beam Welder(s): Nellie ??RT Pam(Samantha)(M), [facility] letter sent: Normal Exam ?? Reading location: [facility] BI-RADS: 2 Benign Procedure Note Killian [...] to exams dated: 07/22/2020, 09/05/2018, and 02/13/2016 [facility]. BREAST TISSUE:The tissue of both breasts is [...] next screening exam. 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
--- OUTSIDE RECORDS SUMMARY | 2024-10-20 03:53 | XMS_ITS | Encounter Summary ---
Author Organization [facility] Address [address] [place] [address] Phone Care Team Providers Care Registered Nurse Obstetrics Name Role Phone John Méndez MD Primary Care Provider [phone] Reason for Referral * Consult, Test & Initiate Treatment (Routine) - Closed Specialty Diagnoses / Procedures Referred By Contaliza t Referred To Contact Gastroenterology Diagnoses Diarrhea, unspecified type John Méndez MD Phone: tel: fax: [facility] [address] [place] [address] Phone: tel: fax: Referral ID Status Reason Start Date Expiration Date Visits Re quested Visits Authorized [id number] Closed 04/29/2022 1 1 Scheduling Instructions Melinda is being referred for lower abdominal discomfort and diarrhea shortly after eating. Please contact patient for scheduling questions or concerns. Reason for Visit * Reason Comments Hypertension Patient is here for a 4 month follow up Encounter Details Date Type Department Care Team ([facility] st Contact Info) Description 04/29/2022 8:00 AM CDT Office Visit [facility] - Family Medicine [facility] [address] [place] [address] John Méndez MD [address] [place] [address] Sacroiliac joint dysfunction of both sides (Primary Dx); Degenerative lumbar disc; Wheezing; Primary hypertension; High cholesterol; Chronic sinusitis, unspecified location; Moderate episode of recurrent major depressive disorder (HCC); Diarrhea, unspecified type; Gastroesophageal reflux disease, unspecified whether esophagitis present Discharge Disposition: Discharged to home or Selfcare [...] 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 No / Unsure 04/29/2022 7:37 AM CDT documented as of this encounter Last Filed Vital Signs Vital Sign Reading Time Taken Comments Blood Pressure 146/94 04/29/2022 8:01 AM CDT Pulse 72 04/29/2022 8:01 AM CDT Temperature 36.9 ??C (98.5 ??F) 04/29/2022 8:01 AM CD T Respiratory Rate 14 04/29/2022 8:01 AM CDT Oxygen Saturation 97% 04/29/2022 8:01 AM CDT Inhaled Oxygen Concentration - - Weight 106 kg (233 lb 9.6 oz) 04/29/2022 8:01 AM CDT Height 157.5 cm (5' 2 ) 04/29/2022 8:01 AM CDT Body Mass Index 42.73 04/29/2022 8:01 AM CDT documented in this encounter Progress Notes * Maritza Wyman CMA - 04/29/2022 8:00 AM CDT Melinda Olmedo is a 47 y.o. female with current BMI: Body mass index is 42.73 kg/m??. Interventions discussed including: encourage daily physical activity and well- balanced diet. * Maritza Wyman CMA - 04/29/2022 8:00 AM CDT Melinda Olmedo, 47 y.o., female is here for Hypertension (Patient is here for a 4 month follow up) Medication Refills: Patient reports/denies need for medication refills. Orders Pended: yes Requested Prescriptions No prescriptions requested or ordered in this encounter Home Medications Medication Sig Start Date End Date Taking? Authorizing Provider acetaminophen-codeine (TYLENOL #3) 300-30 MG Tablet TAKE 1 TABLET BY MOUTH THREE TIMES A DAY NEEDED FOR PAIN DNF 02/[address] 04/19/22 Yes John Méndez MD albuterol (PROVENTIL/VENTOLIN) 1.25 [...] Tablet Take 1 Tablet by mouth daily. 12/25/21 Yes John Méndez MD atorvastatin (LIPITOR) 20 MG Tablet Take 1 Tablet by mouth every evening. 12/25/21 Yes John Méndez MD cetirizine (ZyrTEC) 10 MG Tablet TAKE 1 TABLET BY MOUTH EVERY DAY 06/28/21 Yes John Méndez MD escitalopram (LEXAPRO) 20 MG Tablet TAKE 1 TABLET BY MOUTH EVERY DAY 08/22/21 Yes John Méndez MD montelukast (SINGULAIR) 10 MG Tablet Take 10 mg by mouth daily. 06/14/19 Yes ProviderAdolfo MD naloxone HCl (Narcan) 4 MG/0.1ML Liquid One spray in nostril Q 2-3 minutes until pt improves or until emergency units arrive to assume care. 12/25/21 Yes John Méndez MD tiZANidine (ZANAFLEX) 2 MG Capsule Take 2 mg by mouth nightly. Yes Provider, MD Adolfo There are no discontinued medications. I have [...] done ??? Pap Smear Never done ??? Colorectal Cancer Screening Never done Orders Pended: no The following BPA's have been addressed with the patient today: BMI * John Méndez MD - 04/29/2022 8:00 AM CDT Subjective: Chief Complaint Patient presents with ??? Hypertension Patient is here for a 4 month follow up History of Present Illness: Melinda Olmedo is a 47 y.o. female who presents to the clinic today for a 4- month followup. The patient suffers from sacroiliac joint dysfunction, degenerative disc disease in the lumbar region, chronic wheezing and bronchospasm, hypertension, hyperlipidemia, chronic sinusitis, and depression. She also has obstructive sleep apnea. She is here today for follow up and is stating she needs her medications refilled. The patient's blood pressure is elevated in the clinic today. She is on amlodipine. She needs refills on medications including losartan. She has been nauseous recently. She did havean endoscopy 5 years ago and was diagnosed with acid reflux and was on medications. She states her acid reflux issue has been worsening over the past 6 months with certain foods. The patient has a positive family history of diverticulitis. She knows she has spastic colon. She notes if she eats seeds, including sesame seeds and corns she feels discomfort within a few minutes. Her maternal grandfather was diagnosed with IBS. The patient has been eating a lot of Rolaids, Tums, and peppermint candies. She used to be on Wellbutrin longtime ago. She inquires whether she can take Lexapro with Wellbutrin as she wants to resume Lexapro. She has pain in her lower stomach and lower back area sometimes. She inquires about her colonoscopy screening. She states her father has been diagnosed with stage 4 lung cancer. Patient's medications, allergies, past medical, surgical, social and family histories were reviewedand updated as appropriate. Review of Systems: LUNGS: Denies cough and shortness of breath. HEART: Denies chest pain and palpitations. GI: Denies nausea, vomiting, diarrhea, constipation, and abdominal pain. : Denies frequency, dysuria, and nocturia. Objective: BP (!) 146/94 (BP Location: Right Arm, BP Position: Sitting, BP Cuff Size: Regular) Pulse 72 Temp 98.5 ??F (36.9 ??C) (Temporal) Resp 14 Ht 5' 2 Wt 233 lb 9.6 oz LMP (LMP Unknown) Comment: full SpO2 97% BMI 42.73 kg/m?? Physical Exam: GENERAL: well-developed, well-nourished, and no acute distress. NECK: supple, no thyromegaly, and no cervical LAD. LUNGS: clear to auscultation bilaterally, respiratory effort normal, and no wheezes, rales or rhonchi. HEART: regular rate and rhythm, S1, S2, and no murmurs. ABDOMEN: Obese. She does have positive bowel sounds, but is nontender to palpation. soft, no rebound, and no HSM. EXTREMITIES: no edema and peripheral pulses intact. Past labs, radiology, and medical records reviewed with patient/caregiver. All questions answered. Assessment/Plan: Melinda was seen today for hypertension. Diagnoses and all orders for this visit: Sacroiliac joint dysfunction of both sides We will continue with her Tylenol with Codeine one tablet t.i.d. p.r.n., has Med Use agreement and is up-to-date on UDS. A 4-month followup is needed. PDMP is checked and is normal for the patient. - acetaminophen-codeine (TYLENOL #3) 300-30 MG Tablet; Take 1 Tablet by mouth 3 times daily as needed for Severe pain. Degenerative lumbar disc Continue with current medications. She is stable, did give her refill today. PDMP is checked and isnormal for the patient. Also up-to-date on UDS and Med Use agreement. - acetaminophen-codeine (TYLENOL #3) 300-30 MG Tablet; Take 1 Tablet by mouth 3 times daily as needed for Severe pain. - Discontinue: naloxone HCl (Narcan) 4 MG/0.1ML Liquid; One spray in nostril Q 2-3 minutes until ptimproves or until emergency units arrive to assume care. - naloxone HCl (Narcan) 4 MG/0.1ML Liquid; One spray in nostril Q 2-3 minutes until pt improves or until emergency units arrive to assume care. Wheezing Continue with the albuterol inhaler and albuterol nebulizers p.r.n. - albuterol (PROVENTIL/VENTOLIN) 1.25 MG/3ML Nebulizer Soln; take 3 mL by inhalation every 4 hours as needed for Wheezing or Cough. - albuterol 108 (90 Base) MCG/ACT Aerosol Solution; take 2 Puffs by inhalation every 4 hours as needed for Wheezing. Primary hypertension Elevated today. We will continue with the amlodipine. She has not gotten refills on her losartan inquite sometime, so we will also add the losartan 50 mg daily as she needs this at this time. - THYROID STIMULATING HORMONE (TSH); Future - LIPID PANEL; Future - THYROXINE (T4) FREE; Future - amLODIPine (NORVASC) 10 MG Tablet; Take 1 Tablet by mouth daily. - CMP (COMPREHENSIVE METABOLIC PANEL); Future - COMPLETE BLOOD COUNT (CBC) WITH DIFF; Future High cholesterol Currently taking atorvastatin 20 mg daily. We will check CMP and lipid panel today. Continue with the Lipitor 20 at this time. We will change based on readings. - LIPID PANEL; Future - atorvastatin (LIPITOR) 20 MG Tablet; Take 1 Tablet by mouth every evening. - CMP (COMPREHENSIVE METABOLIC PANEL); Future Chronic sinusitis, unspecified location Continue on Singulair 10 mg daily, cetirizine 10 mg daily. - cetirizine (ZyrTEC) 10 MG Tablet; Take 1 Tablet by mouth daily. Moderate episode of recurrent major depressive disorder (HCC) We will add Wellbutrin 150 mg daily as well as continue with the Lexapro 20 mg daily. Diarrhea, unspecified type We will go ahead and refer to GI and have to evaluate her. She is also due for colonoscopy screening at this time. - GASTROENTEROLOGY REFERRAL; Future Gastroesophageal reflux disease, unspecified whether esophagitis present We will go ahead and order omeprazole 40 mg one tablet daily at this time. Other orders - escitalopram (LEXAPRO) 20 MG Tablet; Take 1 Tablet by mouth daily. - omeprazole (PriLOSEC) 40 MG CAPSULE DELAYED RELEASE; Take 1 Capsule by mouth daily. - losartan (COZAAR) 50 MG Tablet; Take 1 Tablet by mouth daily. - buPROPion (WELLBUTRIN) 150 MG XL tablet; Take 1 Tablet by mouth every morning. Follow up: Return in about 4 months (around 08/30/2022). Patient given verbal and/or written education. She indicated understanding and agreed to the treatment plan. She will call the office or seek immediate medical attention if present symptoms worsen ornew ones develop. Patient gave verbal consent to use virtual scribe/hand tool lapper service, Asaf, understanding ourvisit was being recorded for purposes of improving efficiency of documentation and enhancing clinicexperience for patients. Transcribed by Asaf at 9:42 AM on 04/29/2022. documented in this encounter Plan of Treatment Upcoming Encounters Date Type Department Care Team (Late st Contact Info) Description 11/02/2024 8:15 AM SAXOPHONE ASSEMBLER Office Visit [facility] [address] [place] [address] Dakota Fabian APRN, HEAD OF MATHEMATICS [address] [address] 11/26/2024 11:30 AM SAXOPHONE ASSEMBLER Office Visit [facility] [address] [place] [address] NikkiMaggie silvestre, PAC [address] [place] [address] Scheduled Referrals Name Type Priority Associated Diagnoses Order Schedule GASTROENTEROLOGY REFERRAL Outpatient Referral Routine Diarrhea, unspecified type Expected: 04/29/2023, Expires: 10/30/2023 documented as of this encounter Results * CMP (COMPREHENSIVE METABOLIC PANEL) (09/03/2022 10:10 AM SAXOPHONE ASSEMBLER) SODIUM 140 136 - 144 mmol/L 09/03/2022 1:31 PM [facility] POTASSIUM 3.7 3.5 - 5.1 mmol/L 09/03/2022 1:31 PM [facility] CHLORIDE 103 100 - 110 mmol/L 09/03/2022 1:31 PM [facility] CO2, VENOUS 28 22 - 32 mmol/L 09/03/2022 1:31 PM [facility] ANION GAP 12.7 8.0 - 20.0 mmol/L 09/03/2022 1:31 PM [facility] GLUCOSE 88 70 - 99 mg/dL 09/03/2022 1:31 PM [facility] BUN 12 6 - 20 mg/dL 09/03/2022 1:31 PM [facility] CREATININE, BLOOD 0.74 0.60 - 1.10 mg/dL 09/03/2022 1:31 PM [facility] BUN/CREATININE RATIO 16 12 - 20 ratio 09/03/2022 1:31 PM [facility] TOTAL PROTEIN 7.3 6.0 - 8.3 g/dL 09/03/2022 1:31 PM [facility] ALBUMIN 4.4 3.5 - 5.2 g/dL 09/03/2022 1:31 PM [facility] Comment: The colormetric methods used for the determination of Albumin may lead to falsely elevated test results in patients suffering from renal failure or insufficiency due to interference with other proteins. A/G RATIO 1.5 1.0 - 2.0 09/03/2022 1:31 PM SAXOPHONE ASSEMBLER [facility] CALCIUM 9.4 8.9 - 10.3 mg/dL 09/03/2022 1:31 PM SAXOPHONE ASSEMBLER [facility] T BILI <0.3 <=1.2 mg/dL 09/03/2022 1:31 PM SAXOPHONE ASSEMBLER [facility] SGOT (AST) 23 <=32 U/L 09/03/2022 1:31 PM SAXOPHONE ASSEMBLER [facility] SGPT (ALT) 16 <=41 U/L 09/03/2022 1:31 PM SAXOPHONE ASSEMBLER [facility] ALKALINE PHOSPHATASE 83 35 - 105 U/L 09/03/2022 1:31 PM SAXOPHONE ASSEMBLER [facility] IS THE PATIENT REQUIRED TO BE FASTING? No 09/03/2022 1:31 PM SAXOPHONE ASSEMBLER [facility] GFR, ESTIMATED >60 >=60 09/03/2022 1:31 PM SAXOPHONE ASSEMBLER [facility] Comment: Creatinine Clearance is the preferred criteria for selecting drug dose adjustments in renally impaired patients. ??The GFR is provided as additional pertinent clinical information. GFR is reported in mL/min/1.73 sq m. Calculation based on the Chronic Kidney Disease Epidemiology Collaboration (CKD- EPI) equation refit without adjustment for race. GFR, EST. >60 >=60 022 1:31 PM SAXOPHONE ASSEMBLER [facility] GFR, EST. NONAFRICAN >60 >=60 09/03/2022 1:31 PM SAXOPHONE ASSEMBLER [facility] Blood Venipuncture / Unknown 09/03/2022 10:10 AM SAXOPHONE ASSEMBLER 09/03/2022 10:10 AM SAXOPHONE ASSEMBLER us John Méndez MD CHEMISTRY ORDERABLES Final Resul t [facility] [address] [place] [address] * THYROXINE (T4) FREE (09/03/2022 10:10 AM SAXOPHONE ASSEMBLER) T4 FREE 0.9 0.9 - 1.7 ng/dL 09/03/2022 1:31 PM SAXOPHONE ASSEMBLER [facility] Blood Venipuncture / Unknown 09/03/2022 10:10 AM SAXOPHONE ASSEMBLER 09/03/2022 10:10 AM SAXOPHONE ASSEMBLER John Méndez MD CHEMISTRY ORDERABLES Final Resul t Performing Organization Address City/[facility] Co de Phone Number [facility] [address] [place] [address] * (ABNORMAL) LIPID PANEL (09/03/2022 10:10 AM SAXOPHONE ASSEMBLER) CHOLESTEROL 216(H) <=200 mg/dL 09/03/2022 1:31 PM SAXOPHONE ASSEMBLER [facility] TRIGLYCERIDES 226(H) <150 mg/dL 09/03/2022 1:31 PM SAXOPHONE ASSEMBLER [facility] HDL CHOLESTEROL 56.2 >40 mg/dL 1:31 PM [facility] LDL 115 5 - 130 mg/dL 09/03/2022 1:31 PM SAXOPHONE ASSEMBLER [facility] VLDL 45 5 - 55 mg/dL 09/03/2022 1:31 PM [facility] CHOL/HDL RATIO 3.8 0.0 - 4.4 09/03/2022 1:31 PM [facility] NON-HDL CHOLESTEROL 159.8(H) <130 mg/dL 09/03/2022 1:31 PM SAXOPHONE ASSEMBLER [facility] IS THE PATIENT REQUIRED TO BE FASTING? No 09/03/2022 1:31 PM SAXOPHONE ASSEMBLER [facility] Blood Venipuncture / Unknown 09/03/2022 10:10 AM SAXOPHONE ASSEMBLER 09/03/2022 10:10 AM SAXOPHONE ASSEMBLER John Méndez MD CHEMISTRY ORDERABLES Final Resul t [facility] [address] [place] [address] * THYROID STIMULATING HORMONE (TSH) (09/03/2022 10:10 AM SAXOPHONE ASSEMBLER) TSH 2.140 0.270 - 4.200 mIU/L 09/03/2022 1:31 PM SAXOPHONE ASSEMBLER [facility] Blood Venipuncture / Unknown 09/03/2022 10:10 AM SAXOPHONE ASSEMBLER 09/03/2022 10:10 AM SAXOPHONE ASSEMBLER us John Méndez MD CHEMISTRY ORDERABLES Final Resul t Performing Organization Address [facility] Co de Phone Number [facility] [address] [place] [address] documented in this encounter Visit Diagnoses Diagnosis Sacroiliac joint dysfunction of both sides- Primary Disorders of sacrum Degenerative lumbar disc Degeneration of lumbar or lumbosacral intervertebral disc Wheezing Primary hypertension Unspecified essential hypertension High cholesterol Pure hypercholesterolemia Chronic sinusitis, unspecified location Moderate episode of recurrent major depressive disorder (HCC) Diarrhea, unspecified type Gastroesophageal reflux disease, unspecified whether esophagitis present documented in this encounter Additional Health Concerns Infection Onset Date Last Indicated Resolved Time MRSA 03/30/2020 03/30/2020 Assessment Noted Time PHQ-9 Depression Total Score: 0 12/15/19 21 8:53 AM SAXOPHONE ASSEMBLER documented as of this encounter Care Teams Registered Nurse Obstetrics Relationship Specialty Start Date End Date John Méndez MD PCP - General Family Medicine 09/28/19 04/26/24 documented as of this encounter
--- OUTSIDE RECORDS SUMMARY | 2024-10-20 03:53 | XMS_ITS | Encounter Summary ---
Author Organization [facility] Address [address] 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 She is now out of her tylenol 3 and is wanting to know why it was not refilled. BLE TRACER * Telephone Encounter - Yadira Kraft RN - 09/21/2021 3:37 PM CST Patient calling to check the status of her refill request. Advised this request is currently pending. Patient states she is currently out of medication. Pharmacy and allergies confirmed with patient. Please review and refill if appropriate. BLE TRACER * Telephone Encounter - Antoinette Arora RN - 09/21/2021 8:27 AM CST PDMP 08/22/21 Medication failed the protocol, provider to review and approve the medication order if appropriate. Requested Prescriptions Pending Prescriptions Disp Refills acetaminophen-codeine (TYLENOL #3) 300-30 MG Tablet [Pharmacy Med Name: ACETAMINOPHEN-COD #3 TABLET] 90 Tablet 0 Sig: TAKE 1 TABLET BY MOUTH 3 TIMES DAILY NEEDED FOR MILD OR MORE SEVERE PAIN. [facility] Not Delegated - Analgesics: Opioid Agonist Combinations Failed - 09/21/2021 8:27 AM Failed - This refill cannot be delegated Passed - Valid encounter within last 6 months Past Office Visits Recent Outpatient Visits 4 months ago Essential hypertension [facility] John Delarosa MD 6 months ago Acute non-recurrent maxillary sinusitis [facility] John Delarosa MD 8 months ago Moderate episode of recurrent major depressive disorder (HCC) [facility] John Delarosa MD 9 months ago Moderate episode of recurrent major depressive disorder (HCC) [facility] John Delarosa MD 10 months ago [facility] Upcoming Appointments CONTINUOUS PROCESS ROTARY DRUM TANNER - Recent and Past Visits Recent Visits Date Type Provider Dept 05/01/21 Office Visit John Méndez MD [facility] 03/14/21 Office Visit John Méndez MD [facility] 01/11/21 Office Visit John Méndez MD [facility] 12/14/20 Office Visit John Méndez MD [facility] 11/15/20 Office Visit John Méndez MD [facility] [place] Showing recent visits within past 460 days with a meds authorizing provider and meeting all other requirements Future Appointments No visits were found meeting these conditions. Showing future appointments within next 90 days with a meds authorizing provider and meeting all other requirements BLE TRACER documented in this encounter Plan of Treatment Upcoming Encounters Date Type Department Care Team (Late st Contact Info) Description 11/02/2024 8:15 AM TROUBLE TRACER [facility] [address] [place] [address] Dakota Fabian APRN, INTERLOCKING AND SIGNAL MECHANIC [address] [address] 11/26/2024 11:30 AM TROUBLE TRACER [facility] [address] [place] [address] Maggie Tolentino PAC [address] [place] [address] documented as of this encounter Visit Diagnoses Diagnosis Sacroiliac joint dysfunction of both sides Disorders of sacrum Degenerative lumbar disc Degeneration of lumbar or lumbosacral intervertebral disc documented in this encounter Additional Health Concerns Infection Onset Date Last Indicated Resolved Time MRSA 03/30/2020 03/30/2020 COVID - 19 09/11/2024 09/11/2024 09/11/2024 7:21 PM TROUBLE TRACER Assessment Noted Time PHQ-9 Depression Total Score: 0 12/15/19 21 8:53 AM TROUBLE TRACER documented as of this encounter Care Teams Burner Shaft Relationship Specialty Start Date End Date John Méndez MD PCP - General Family Medicine 09/28/19 04/26/24 Dakota Fabian APRN, INTERLOCKING AND SIGNAL MECHANIC [address] [place] [id number] PCP - General Advanced Practice Nurse 04/27/24 documented as of this encounter
--- OUTSIDE RECORDS SUMMARY | 2024-10-20 03:53 | XMS_ITS | Encounter Summary ---
Author Organization [facility] Address [address] [facility] 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 States her last one was 6 months ago or more. ASSESSMENT: Has a slight ache in right lower back, frequency and urgency. Pain with urination. Denies fever. RECOMMENDATION: Advised to be seen in 24 hours. OV scheduled with Radha Fabian tomorrow at 1030. Careadvice provided If symptoms increase, change, or if new symptoms develop, patient to report to emergency room. Verified and reviewed all information with caller. Caller verbalized understanding of information given and denies further questions. Teach-back method utilized. Reason for Disposition ??? All other patients with painful urination (Exception: [1] EITHER frequency or urgency AND [2] has on-call doctor) Protocols used: URINATION PAIN - FEMALE-A-AH documented in this encounter Plan of Treatment Upcoming Encounters Date Type Department Care Team (Late st Contact Info) Description 11/02/2024 8:15 AM ENGRAVER SIGNATURE Office Visit [facility] [address] [place] [address] Dakota Fabian APRN, JAVA SECURITY ENGINEER #[address] [address] 11/26/2024 11:30 AM ENGRAVER SIGNATURE Office Visit [facility] [address] [place] [address] Maggie Tolentino, PAC [address] [place] [address] documented as of this encounter Visit Diagnoses Not on filedocumented in this encounter Additional Health Concerns Infection Onset Date Last Indicated Resolved Time MRSA 03/30/2020 03/30/2020 Assessment Noted Time PHQ-9 Depression Total Score: 0 12/15/19 21 8:53 AM ENGRAVER SIGNATURE documented as of this encounter Care Teams Alterations Expert Relationship Specialty Start Date End Date John Méndez MD PCP - General Family Medicine 09/28/19 04/26/24 documented as of this encounter
--- OUTSIDE RECORDS SUMMARY | 2024-10-20 03:53 | XMS_ITS | Encounter Summary ---
Author Organization [facility] Address [address] [facility] 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 No / Unsure 12/25/2021 5:23 PM CDT documented as of this encounter Miscellaneous Notes * Telephone Encounter - Rhea Singer RN - 12/25/2021 6:34 PM CDT Patient calling and states the the pharmacy is telling her the script for Tylenol #3 was not received at the [facility] and neither was the script for narctheron RN contacted the [facility] in [place] on [facility] And was told the script for tylenol #3 was received and patient will be contacted when it is ready for medical director occupational health. documented in this encounter Plan of Treatment Upcoming Encounters Date Type Department Care Team ([facility] st Contact Info) Description 11/02/2024 8:15 AM MANAGER BABY Office Visit [facility] [address] [place] [address] Dakota Fabian, THOM, SUBGRADE TESTER #[address] [address] 11/26/2024 11:30 AM MANAGER BABY Office Visit [facility] [address] [place] [address] Maggie Tolentino, PAC [address] [place] [address] documented as of this encounter Visit Diagnoses Not on filedocumented in this encounter Additional Health Concerns Infection Onset Date Last Indicated Resolved Time MRSA 03/30/2020 03/30/2020 Assessment Noted Time PHQ-9 Depression Total Score: 0 12/15/19 21 8:53 AM MANAGER BABY documented as of this encounter Care Teams Marketing Content Specialist Relationship Specialty Start Date End Date John Méndez MD PCP - General Family Medicine 09/28/19 04/26/24 documented as of this encounter
--- OUTSIDE RECORDS SUMMARY | 2024-10-20 03:53 | XMS_ITS | Encounter Summary ---
Author Organization 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 No / Unsure 10/09/2021 7:12 AM AIR CONDITIONING SPECIALIST documented as of this encounter Plan of Treatment Upcoming Encounters Date Type Department Care Team (Late st Contact Info) Description 11/02/2024 8:15 AM AIR CONDITIONING SPECIALIST Office Visit [facility] Medical Group - Family Medicine [facility] [address] [place] [phone] Dakota Fabian, BRICK HANDLER, PHILOSOPHY FACULTY MEMBER #[address] [address] 11/26/2024 11:30 AM AIR CONDITIONING SPECIALIST Office Visit [facility] - Family Medicine [facility] [address] [place] [address] Maggie Tolentino, [facility] [address] [place] [address] documented as of this encounter Visit Diagnoses Not on filedocumented in this encounter Additional Health Concerns Infection Onset Date Last Indicated Resolved Time MRSA 03/30/2020 03/30/2020 Assessment Noted Time PHQ-9 Depression Total Score: 0 12/15/19 21 8:53 AM AIR CONDITIONING SPECIALIST documented as of this encounter Care Teams Rocket Test Fire Worker Relationship Specialty Start Date End Date John Méndez MD PCP - General Family Medicine 09/28/19 04/26/24 documented as of this encounter
--- OUTSIDE RECORDS SUMMARY | 2024-10-20 03:53 | XMS_ITS | Encounter Summary ---
Author Organization [facility] Address [address] 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 No / Unsure 10/09/2021 7:12 AM AUTO BODY REPAIR TECHNICIAN documented as of this encounter Miscellaneous Notes * Telephone Encounter - Alicia Hoffman RN - 10/09/2021 7:11 AM CST SITUATION: Patient calling and has been sick since and believes she has a sinus infection BACKGROUND: Has had elevated temp 101 yesterday. Denies Underlying heart and lung disease, blood clots, Body aches yesterday and today has resolved ASSESSMENT: Nasal drainage- yellow at times but mostly clear Coughing spells and nearly vomits Fatigue Nasal congestion Short of breath with activity- winded walking to the bathroom Ears are popping when she swallows Mild sore throat Denies fever, ear pain, wheezing, short of breath at rest, chest pain, coughing blood, patient is going to urgent care for evaluation today FYI RECOMMENDATION: See care advice and disposition for Guideline First positive answer recorded, all responses to prior questions were negative. If symptoms increase, change or if new symptoms develop, call your HCP or call back. Recommendations were based on caller information and is not a diagnosis. Verified and reviewed all triage information with caller. Reason for Disposition ??? Continuous (nonstop) coughing interferes with work or school and no improvement using cough treatment per Care Advice Protocols used: COUGH-A-OH BODY REPAIR TECHNICIAN documented in this encounter Plan of Treatment Upcoming Encounters Date Type Department Care Team (Late st Contact Info) Description 11/02/2024 8:15 AM AUTO BODY REPAIR TECHNICIAN Office Visit [facility] [address] [place] [address] Dakota Fabian APRN, SECURITY TRAINER #[address] [address] 11/26/2024 11:30 AM AUTO BODY REPAIR TECHNICIAN Office Visit [facility] [address] [place] [address] Maggie Tolentino, PAC [address] [place] [address] documented as of this encounter Visit Diagnoses Not on filedocumented in this encounter Additional Health Concerns Infection Onset Date Last Indicated Resolved Time MRSA 03/30/2020 03/30/2020 Assessment Noted Time PHQ-9 Depression Total Score: 0 12/15/19 21 8:53 AM AUTO BODY REPAIR TECHNICIAN documented as of this encounter Care Teams State'S Attorney Relationship Specialty Start Date End Date John Méndez MD PCP - General Family Medicine 09/28/19 04/26/24 documented as of this encounter
--- OUTSIDE RECORDS SUMMARY | 2024-10-20 03:53 | XMS_ITS | Encounter Summary ---
Author Organization [facility] Address [address] 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 No / Unsure 12/25/2021 5:23 PM CDT documented as of this encounter Miscellaneous Notes * Telephone Encounter - Antoinette Arora RN - 01/18/2022 8:57 AM CDT PDMP 12/25/21 Medication failed the protocol, provider to review and approve the medication order if appropriate. Requested Prescriptions Pending Prescriptions Disp Refills acetaminophen-codeine (TYLENOL #3) 300-30 MG Tablet [Pharmacy Med Name: ACETAMINOPHEN-COD #3 TABLET] 90 Tablet 0 Sig: TAKE 1 TABLET BY MOUTH THREE TIMES A DAY NEEDED FOR PAIN Not Delegated - Opioid Combinations Protocol Failed - 01/17/2022 10:44 PM Failed - This refill cannot be delegated Passed - Visit with relevant provider in past 12 months or upcoming 90 days Recent Visits Date Type Provider Dept 12/25/21 Office Visit John Méndez MD [facility] 05/01/21 Office Visit John Méndez MD [facility] 03/14/21 Office Visit John Méndez MD [facility] Showing recent visits within past 365 days and meeting all other requirements Future Appointments No visits were found meeting these conditions. Showing future appointments within next 90 days and meeting all other requirements documented in this encounter Plan of Treatment Upcoming Encounters Date Type Department Care Team (Late st Contact Info) Description 11/02/2024 8:15 AM HOSPITAL PLAN ADMINISTRATOR Office Visit [facility] [address] [place] [address] Dakota Fabian APRN, PRODUCT DEVELOPMENT SCIENTIST #[address] [address] 11/26/2024 11:30 AM HOSPITAL PLAN ADMINISTRATOR Office Visit [facility] [address] [place] [address] Maggie Tolentino, [facility] [address] [place] [address] documented as of this encounter Visit Diagnoses Diagnosis Sacroiliac joint dysfunction of both sides Disorders of sacrum Degenerative lumbar disc Degeneration of lumbar or lumbosacral intervertebral disc documented in this encounter Additional Health Concerns Infection Onset Date Last Indicated Resolved Time MRSA 03/30/2020 03/30/2020 COVID - 19 09/11/2024 09/11/2024 09/11/2024 7:21 PM HOSPITAL PLAN ADMINISTRATOR Assessment Noted Time PHQ-9 Depression Total Score: 0 12/15/19 8:53 AM HOSPITAL PLAN ADMINISTRATOR documented as of this encounter Care Teams Geriatric Physical Therapist Relationship Specialty Start Date End Date John Méndez MD PCP - General Family Medicine 09/28/19 04/26/24 Dakota Fabian, ELECTROTYPE MOLDER, PRODUCT DEVELOPMENT SCIENTIST [address] [address] PCP - General Advanced Practice Nurse 04/27/24 documented as of this encounter
--- OUTSIDE RECORDS SUMMARY | 2024-10-20 03:53 | XMS_ITS | Encounter Summary ---
Author Organization [facility] Address [address] [facility] 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 No / Unsure 10/09/2021 7:12 AM FLIGHT ENGINEER documented as of this encounter Miscellaneous Notes * Telephone Encounter - Antoinette Arora RN - 10/09/2021 3:02 PM CST Name from pharmacy: ESCITALOPRAM 10 MG TABLET Will file in chart as: escitalopram (LEXAPRO) 10 MG Tablet The original prescription was discontinued on 12/14/2020 by John Méndez MD Patient is taking 20 mg daily - see current medication list HT ENGINEER documented in this encounter Plan of Treatment Upcoming Encounters Date Type Department Care Team (Late st Contact Info) Description 11/02/2024 8:15 AM FLIGHT ENGINEER Office Visit [facility] [address] [place] [address] Dakota Fabian APRN, CEMENT BOAT AND BARGE LOADER #[address] [address] 11/26/2024 11:30 AM FLIGHT ENGINEER Office Visit [facility] [address] [place] [address] Maggie Tolentino, PAC [address] [place] [address] documented as of this encounter Visit Diagnoses Not on filedocumented in this encounter Additional Health Concerns Infection Onset Date Last Indicated Resolved Time MRSA 03/30/2020 03/30/2020 COVID - 19 09/11/2024 09/11/2024 09/11/2024 7:21 PM FLIGHT ENGINEER Assessment Noted Time PHQ-9 Depression Total Score: 0 12/15/19 21 8:53 AM FLIGHT ENGINEER documented as of this encounter Care Teams Casting Wheel Operator Relationship Specialty Start Date End Date John Méndez MD PCP - General Family Medicine 09/28/19 04/26/24 Dakota Fabian APRN, CEMENT BOAT AND BARGE LOADER #[address] [address] PCP - General Advanced Practice Nurse 04/27/24 documented as of this encounter
--- OUTSIDE RECORDS SUMMARY | 2024-10-20 03:53 | XMS_ITS | Encounter Summary ---
Author Organization [facility] Address [address] 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 No / Unsure 04/19/2021 8:34 AM CDT documented as of this encounter Miscellaneous Notes * Telephone Encounter - Antoinette Arora RN - 04/20/2021 8:28 AM CDT [place] PD[place] 03/23/21 - this was filled early - due date was 03/26/21 Medication failed the protocol, provider to review and approve the medication order if appropriate. Requested Prescriptions Pending Prescriptions Disp Refills acetaminophen-codeine (TYLENOL #3) 300-30 MG Tablet 90 Tablet 0 Sig: Take 1 Tablet by mouth 3 times daily as needed for Moderate or more severe pain. [email or web address] Not Delegated - Analgesics: Opioid Agonist Combinations Failed - 04/20/2021 8:28 AM Failed - This refill cannot be delegated Passed - Valid encounter within last 6 months Past Office Visits Recent Outpatient Visits 1 month ago Acute non-recurrent maxillary sinusitis [facility] John Luna MD 3 months ago Moderate episode of recurrent major depressive disorder (HCC) [facility] John Luna MD 4 months ago Moderate episode of recurrent major depressive disorder (HCC) [facility] John Delarosa MD 5 months ago Mixed hyperlipidemia [facility] John Delarosa MD 10 months ago Mild intermittent asthma without complication [facility] John Delarosa MD Upcoming Appointments Future Appointments In 1 week John Méndez MD [facility] Dave Werner [facility] MATERIAL EXPEDITOR - Recent and Past Visits Recent Visits Date Type Provider Dept 03/14/21 Office Visit John Méndez MD [facility] 01/11/21 Office Visit John Méndez MD [facility] 12/14/20 Office Visit John Méndez MD [facility] 11/15/20 Office Visit John Méndez MD [facility] 06/09/20 Office Visit John Méndez MD [facility] 05/02/20 Office Visit John Méndez MD [facility] 03/30/20 Office Visit John Méndez MD [facility] Showing recent visits within past 460 days with a meds authorizing provider and meeting all other requirements Future Appointments Date Type Provider Dept 05/01/21 Appointment John Méndez MD [facility] Showing future appointments within next 90 days with a meds authorizing provider and meeting all other requirements documented in this encounter Plan of Treatment Upcoming Encounters Date Type Department Care Team (Late st Contact Info) Description 11/02/2024 8:15 AM SCALE ASSEMBLY SET UP WORKER Office Visit [facility] [address] [place] [address] Dakota Fabian APRN, BEVELING AND EDGING MACHINE OPERATOR #[address] [address] 11/26/2024 11:30 AM SCALE ASSEMBLY SET UP WORKER Office Visit [facility] [address] [place] [address] Maggie Tolentino, PAC [address] [place] [address] documented as of this encounter Visit Diagnoses Not on filedocumented in this encounter Additional Health Concerns Infection Onset Date Last Indicated Resolved Time MRSA 03/30/2020 03/30/2020 Assessment Noted Time PHQ-9 Depression Total Score: 0 12/15/19 8:53 AM SCALE ASSEMBLY SET UP WORKER documented as of this encounter Care Teams V Belt Finisher Relationship Specialty Start Date End Date John Méndez MD PCP - General Family Medicine 09/28/19 04/26/24 documented as of this encounter
--- OUTSIDE RECORDS SUMMARY | 2024-10-20 03:53 | XMS_ITS | Encounter Summary ---
Author Organization [facility] Address [address] [facility] [place] [address] Phone Care Team Providers Care Wood Furniture Assembler Name Role Phone John Méndez MD Primary Care Provider [phone] Reason for Visit * Reason Comments Follow-up 3 month f/u Depression Drug Screen UDS and med agreemen t Encounter Details Date Type Department Care Team (Late st Contact Info) Description 05/01/2021 9:15 AM CDT Office Visit [facility] Medical [facility] - Family [facility] [address] [place] [phone] John Méndez MD [address] [place] [address] Essential hypertension (Primary Dx); Mixed hyperlipidemia; Degenerative lumbar disc; Moderate episode of recurrent major depressive disorder (HCC); Chronic prescription opiate use Discharge Disposition: Discharged [...] 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 No / Unsure 05/01/2021 8:56 AM CDT documented as of this encounter Last Filed Vital Signs Vital Sign Reading Time Taken Comments Blood Pressure 180/116 05/01/2021 9:33 AM CDT Pulse 68 05/01/2021 9:33 AM CDT Temperature 36.3 ??C (97.4 ??F) 05/01/2021 9:33 AM CD T Respiratory Rate 16 05/01/2021 9:33 AM CDT Oxygen Saturation 99% 05/01/2021 9:33 AM CDT Inhaled Oxygen Concentration - - Weight 101.5 kg (223 lb 12.8 oz) 05/01/2021 9:33 AM CDT Height 157.5 cm (5' 2 ) 05/01/2021 9:33 AM CDT Body Mass Index 40.93 05/01/2021 9:33 AM CDT documented in this encounter Progress Notes * Antonieta Ascencio, RMA - 05/01/2021 9:15 AM CDT Melinda Izzy Olmedo, 46 y.o., female is here for Follow-up (3 month f/u), Depression, and Drug Screen (UDS and med agreement) Medication Refills: Patient reports/denies need for medication refills. Orders Pended: no Requested Prescriptions No prescriptions requested or ordered in this encounter Home Medications Medication Sig Start Date End Date Taking? Authorizing Provider acetaminophen-codeine (TYLENOL #3) 300-30 MG Tablet TAKE 1 TABLET BY MOUTH 3 TIMES DAILY NEEDED FOR MODERATE OR MORE SEVERE PAIN. DNF 02/2604/22/21 Yes John Méndez MD albuterol (PROVENTIL/VENTOLIN) 1.25 [...] every evening. 09/28/19 Yes John Méndez MD azithromycin (ZITHROMAX) 250 MG Tablet 2 tab(s) daily for 1 day, then 1 tab(s) daily for days 2-5. 03/14/21 Yes John Méndez MD buPROPion (WELLBUTRIN) 300 MG TABLET SR 24 HR XL tablet Take 300 mg by mouth daily. 06/14/19 Yes Adolfo Sotomayor MD cetirizine (ZYRTEC) 10 MG Tablet Take 1 Tab by mouth daily. 09/28/19 Yes John Méndez MD diclofenac (VOLTAREN) 50 MG Tablet Delayed Response Take 1 Tablet by mouth 3 times daily. Patient not taking: Reported on 03/14/2021 03/12/21 Kenn Ibarra MD escitalopram (LEXAPRO) 20 MG Tablet TAKE 1 TABLET BY MOUTH EVERY DAY 03/13/21 Yes John Méndez MD montelukast (SINGULAIR) 10 MG Tablet Take 10 mg by mouth daily. 06/14/19 Yes Adolfo Sotomayor MD omeprazole (PriLOSEC) 20 MG CAPSULE DELAYED RELEASE omeprazole 20 mg capsule,delayed release TAKE ONE CAPSULE BY MOUTH TWICE A DAY BEFORE BREAKFAST AND DINNER Patient not taking: Reported on 03/14/2021 Adolfo Sotomayor MD ondansetron (ZOFRAN-ODT) 4 MG TABLET DISPERSIBLE Take 1 Tablet by mouth every 8 hours as needed forNausea - 1st line. Patient not taking: Reported on 03/14/2021 03/12/21 Kenn Ibarra MD tiZANidine (ZANAFLEX) 2 MG Capsule Take [...] Never done ??? Pap Smear Never done Orders Pended: no The following BPA's have been addressed with the patient today: Pap documented in this encounter Plan of Treatment Upcoming Encounters Date Type Department Care Team (Late st Contact Info) Description 11/02/2024 8:15 AM SOFTWARE SYSTEMS ANALYST [facility] [place] [address] Dakota Fabian APRN, ENTRY CLERK [address] [address] 11/26/2024 11:30 AM SOFTWARE SYSTEMS ANALYST Office Visit [facility] [place] [address] Maggie Tolentino, PAC [address] [place] [address] Scheduled Orders Name Type Priority Associated Diagnoses Orde r Schedule URINE DRUG SCREEN Lab Routine Chronic prescription opiate use Expected: 05/02/2022, Expires: 11/02/2022 documented as of this encounter Visit Diagnoses Diagnosis Essential hypertension- Primary Unspecified essential hypertension Mixed hyperlipidemia Degenerative lumbar disc Degeneration of lumbar or lumbosacral intervertebral disc Moderate episode of recurrent major depressive disorder (HCC) Chronic prescription opiate use documented in this encounter Additional Health Concerns Infection Onset Date Last Indicated Resolved Time MRSA 03/30/2020 03/30/2020 Assessment Noted Time PHQ-9 Depression Total Score: 0 12/15/19 8:53 AM SOFTWARE SYSTEMS ANALYST documented as of this encounter Care Teams Wood Furniture Assembler Relationship Specialty Start Date End Date John Méndez MD PCP - General Family Medicine 09/28/19 04/26/24 documented as of this encounter
--- OUTSIDE RECORDS SUMMARY | 2024-10-20 03:53 | XMS_ITS | Encounter Summary ---
Author Organization [facility] Address [address] [facility] 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 No / Unsure 04/19/2021 8:34 AM CDT documented as of this encounter Miscellaneous Notes * Telephone Encounter - Antoinette Arora RN - 04/23/2021 8:15 AM CDT The original prescription was reordered on 04/20/2021 by John Méndez MD * Telephone Encounter - Antoinette Arora RN - 04/20/2021 9:30 AM CDT Duplicate request - there is a request already pended to PCP * Telephone Encounter - Maggie Montero RN - 04/19/2021 5:32 PM CDT Asking for refill of Tylenol #3 Has 3 days worth left. Last OV 03/14/21 documented in this encounter Plan of Treatment Upcoming Encounters Date Type Department Care Team (Late st Contact Info) Description 11/02/2024 8:15 AM MOVEMAN Office Visit [facility] [address] [place] [phone] Dakota Fabian APRN, ZOOLOGY PROFESSOR [address] [address] 11/26/2024 11:30 AM MOVEMAN Office Visit [facility] [address] [place] [address] Maggie Tolentino, PAC [address] [place] [address] documented as of this encounter Visit Diagnoses Not on filedocumented in this encounter Additional Health Concerns Infection Onset Date Last Indicated Resolved Time MRSA 03/30/2020 03/30/2020 Assessment Noted Time PHQ-9 Depression Total Score: 0 12/15/19 21 8:53 AM MOVEMAN documented as of this encounter Care Teams Certified Surgical Tech/First Assistant Relationship Specialty Start Date End Date John Méndez MD PCP - General Family Medicine 09/28/19 04/26/24 documented as of this encounter
--- OUTSIDE RECORDS SUMMARY | 2024-10-20 03:53 | XMS_ITS | Encounter Summary ---
Author Organization [facility] Address [address] [facility] 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 * Telephone Encounter - Rosemarie Pollack RN - 06/21/2021 10:39 AM CDT [place] last fill date 05/23/21 Medication failed the protocol, provider to review and approve the medication order if appropriate. Requested Prescriptions Pending Prescriptions Disp Refills acetaminophen-codeine (TYLENOL #3) 300-30 MG Tablet [Pharmacy Med Name: ACETAMINOPHEN-COD #3 TABLET] 90 Tablet 0 Sig: TAKE 1 TABLET BY MOUTH 3 TIMES DAILY NEEDED FOR MODERATE OR MORE SEVERE PAIN. DNF 04/22 [facility] Not Delegated - Analgesics: Opioid Agonist Combinations Failed - 06/21/2021 10:39 AM Failed - This refill cannot be delegated Passed - Valid encounter within last 6 months Past Office Visits Recent Outpatient Visits 1 month ago Essential hypertension [facility] John Delarosa MD 3 months ago Acute non-recurrent maxillary sinusitis [facility] John Delarosa MD 5 months ago Moderate episode of recurrent major depressive disorder (HCC) [facility] John Delarosa MD 6 months ago Moderate episode of recurrent major depressive disorder (HCC) [facility] John Delarosa MD 7 months ago Mixed hyperlipidemia [facility] John Delarosa MD Upcoming Appointments TUBE AND MANIFOLD BUILDER - Recent and Past Visits Recent Visits Date Type Provider Dept 05/01/21 Office Visit John Méndez MD [facility] 03/14/21 Office Visit John Méndez MD [facility] 01/11/21 Office Visit John Méndez MD [facility] 12/14/20 Office Visit John Méndez MD [facility] 11/15/20 Office Visit John Méndez MD [facility] 06/09/20 Office Visit John Méndez MD [facility] 05/02/20 Office Visit John Méndez MD [facility] 03/30/20 Office Visit John Méndez MD [facility] Showing recent visits within past 460 [...] st Contact Info) Description 11/02/2024 8:15 AM STRADDLE TRUCK OPERATOR Office Visit [facility] [address] [place] [address] Dakota Fabian APRN, FRIT MAKER [address] [address] 11/26/2024 11:30 AM STRADDLE TRUCK OPERATOR Office Visit [facility] [address] [place] [address] Maggie Tolentino, PAC [address] [place] [address] documented as of this encounter Visit Diagnoses Diagnosis Sacroiliac joint dysfunction of both sides Disorders of sacrum Degenerative lumbar disc Degeneration of lumbar or lumbosacral intervertebral disc documented in this encounter Additional Health Concerns Infection Onset Date Last Indicated Resolved Time MRSA 03/30/2020 03/30/2020 COVID - 19 09/11/2024 09/11/2024 09/11/2024 7:21 PM STRADDLE TRUCK OPERATOR Assessment Noted Time PHQ-9 Depression Total Score: 0 12/15/19 8:53 AM STRADDLE TRUCK OPERATOR documented as of this encounter Care Teams Web Worker Relationship Specialty Start Date End Date John Méndez MD PCP - General Family Medicine 09/28/19 04/26/24 Dakota Fabian APRN, FRIT MAKER [address] [place] [address] PCP - General Advanced Practice Nurse 04/27/24 documented as of this encounter
--- OUTSIDE RECORDS SUMMARY | 2024-10-20 03:53 | XMS_ITS | Encounter Summary ---
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 No / Unsure 05/07/2021 8:48 AM CDT documented as of this encounter Plan of Treatment Upcoming Encounters Date Type Department Care Team (Late st Contact Info) Description 11/02/2024 8:15 AM DRILLING INSPECTOR Office Visit [facility] Medical Group - Family Medicine [facility] [address] [place] [address] Dakota Fabian, REINFORCED CONCRETE INSPECTOR, UNIVERSITY ADMINISTRATIVE ASSISTANT #[address] [address] 11/26/2024 11:30 AM DRILLING INSPECTOR Office Visit [facility] [place] [address] [place] [address] Maggie Tolentino, PAC [address] [place] [address] documented as of this encounter Visit Diagnoses Not on filedocumented in this encounter Additional Health Concerns Infection Onset Date Last Indicated Resolved Time MRSA 03/30/2020 03/30/2020 Assessment Noted Time PHQ-9 Depression Total Score: 0 12/15/19 21 8:53 AM DRILLING INSPECTOR documented as of this encounter Care Teams Pool Attendant Relationship Specialty Start Date End Date John Méndez MD PCP - General Family Medicine 09/28/19 04/26/24 documented as of this encounter
--- OUTSIDE RECORDS SUMMARY | 2024-10-20 03:53 | XMS_ITS | Encounter Summary ---
Author Organization [facility] Address [address] [facility] 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 Requested Prescriptions Pending Prescriptions Disp Refills ??? cetirizine (ZyrTEC) 10 MG Tablet [Pharmacy Med Name: CETIRIZINE HCL 10 MG TABLET] 30 Tablet 11 Sig: TAKE 1 TABLET BY MOUTH EVERY DAY Non-sedating Antihistamines Protocol Passed - 06/28/2021 12:37 AM Passed - Visit with relevant provider in past 12 months or upcoming 90 days Recent Visits Date Type Provider Dept 05/01/21 Office Visit John Méndez MD [facility] 03/14/21 Office Visit John Méndez MD [facility] 01/11/21 Office Visit John Méndez MD [facility] 12/14/20 Office Visit John Méndez MD [facility] 11/15/20 Office Visit John Méndez MD [facility] Showing recent visits within [...] st Contact Info) Description 11/02/2024 8:15 AM TESTER REGULATOR Office Visit [facility] [address] [place] [address] Dakota Fabian APRN, SEMIAUTOMATIC TAPER OPERATOR [address] [address] 11/26/2024 11:30 AM TESTER REGULATOR Office Visit [facility] [address] [place] [address] Maggie Tolentino, PAC [address] [place] [address] documented as of this encounter Visit Diagnoses Diagnosis Chronic sinusitis, unspecified location documented in this encounter Additional Health Concerns Infection Onset Date Last Indicated Resolved Time MRSA 03/30/2020 03/30/2020 Assessment Noted Time PHQ-9 Depression Total Score: 0 12/15/19 21 8:53 AM TESTER REGULATOR documented as of this encounter Care Teams Senior Portfolio Manager Relationship Specialty Start Date End Date John Méndez MD PCP - General Family Medicine 09/28/19 04/26/24 documented as of this encounter
--- OUTSIDE RECORDS SUMMARY | 2024-10-20 03:53 | XMS_ITS | Encounter Summary ---
Author Organization [facility] Address [address] [facility] 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 This should have been put somewhere else as I didn't know that I needed to look at it. Also I am not refilling this as she has been told multiple times. * Telephone Encounter - Sarah Mckeon RN - 12/24/2021 2:26 PM CDT S: Has an appointment on 12/25 for med management. Mary isn't working on her new phone. B: + covid October, symptoms started on 12/21 A: Patient calling wanting to make sure that she can be seen due to symptoms of runny nose clear and hoarseness, cough -dry and nasal congestion, sinus pain yesterday but better today, no headache , swollen gland in left armpit Pain : 3-01/20 R: Please advise Reason for Disposition ??? Patient wants to be seen Protocols used: SINUS PAIN OR [id number] All Patient Appointments Provider Department Dept Phone 12/25/2021 5:45 PM John Méndez [facility] Medical Group - Family Medicine [facility] [phone] Meds/allergies and pharmacy verified. Verbalized understanding of all care advice given * Telephone Encounter - Katie Christensen - 12/24/2021 10:30 AM CDT Patient calling back because she was called by her pharmacy that her Tylenol #3 was declined. She says she is completely out and is requesting this be refilled today. She does have an OV scheduled for tomorrow (12/25) with PCP. However, she says she is also sick and wants to make sure it is OK for her to still come in? Says she has a runny nose, cough, sore throat, and nasal/sinus congestion. Patient has lost her voice as well. * Telephone Encounter - Antoinette Arora RN - 12/21/2021 8:11 AM CST Images from the original note were not included. Maritza Escalera, John Amezcua MD; [employer] 3 minutes ago (8:07 AM) SH Patient made appt on 02/24/2022 at 5:45pm. Patient states her medication will be out by then and is wanting enough sent in to get her to her appt. Please advise. Message text PROCESSOR * Telephone Encounter - Antoinette Arora RN - 12/20/2021 1:23 PM CST Last appt 05/01/21 - pt needs follow up with PCP - please call, she does not actively use MyChart. PROCESSOR * Telephone Encounter - Antoinette Arora RN - 12/20/2021 1:22 PM CST PDMP 11/26/21 Medication failed the protocol, provider to review and approve the medication order if appropriate. Requested Prescriptions Pending Prescriptions Disp Refills acetaminophen-codeine (TYLENOL #3) 300-30 MG Tablet [Pharmacy Med Name: ACETAMINOPHEN-COD #3 TABLET] 90 Tablet 0 Sig: TAKE 1 TABLET BY MOUTH 3 TIMES DAILY NEEDED FOR MILD OR MORE SEVERE PAIN. NEED TO TRY AND CALL MED IN 5-7 DAYS PRIOR TO NEEDING REFILL THIS GIVEN TIME AND ACCOUNTS FOR DOCTOR POSSIBLY BEING OUT. Not Delegated - Opioid Combinations Protocol Failed - 12/19/2021 11:35 PM Failed - This refill cannot be delegated Passed - Visit with relevant provider in past 12 months or upcoming 90 days Recent Visits Date Type Provider Dept 05/01/21 Office Visit John Méndez MD [facility] 03/14/21 Office Visit John Méndez MD [facility] 01/11/21 Office Visit John Méndez MD [facility] Showing recent visits within past 365 days and meeting all other requirements Future Appointments No visits were found meeting these conditions. Showing future appointments within next 90 days and meeting all other requirements PROCESSOR documented in this encounter Plan of Treatment Upcoming Encounters Date Type Department Care Team (Late st Contact Info) Description 11/02/2024 8:15 AM EGG PROCESSOR Office Visit [facility] [address] [place] [address] Dakota Fabian APRN, KEYBOARDING CLERK [address] [address] 11/26/2024 11:30 AM EGG PROCESSOR Office Visit [facility] [address] [place] [address] Maggie Tolentino, PAC [address] [place] [address] documented as of this encounter Visit Diagnoses Diagnosis Sacroiliac joint dysfunction of both sides Disorders of sacrum Degenerative lumbar disc Degeneration of lumbar or lumbosacral intervertebral disc documented in this encounter Additional Health Concerns Infection Onset Date Last Indicated Resolved Time MRSA 03/30/2020 03/30/2020 Assessment Noted Time PHQ-9 Depression Total Score: 0 12/15/19 8:53 AM EGG PROCESSOR documented as of this encounter Care Teams Environmental Services Assistant Relationship Specialty Start Date End Date John Méndez MD PCP - General Family Medicine 09/28/19 04/26/24 documented as of this encounter
--- OUTSIDE RECORDS SUMMARY | 2024-10-20 03:53 | XMS_ITS | Encounter Summary ---
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 Not [...] st Contact Info) Description 11/02/2024 8:15 AM LICENSED ELECTRICIAN Office Visit [facility] Medical Group - Family Medicine [facility] [address] [place] [address] Dakota Fabian, SPACE CONTROL SUPERVISOR, CHIEF CONTROLLER STATION #[address] [address] 11/26/2024 11:30 AM LICENSED ELECTRICIAN Office Visit [facility] - Family Medicine - [place] [address] [place] [address] Maggie Tolentino, PAC [address] [place] [address] documented as of this encounter Visit Diagnoses Not on filedocumented in this encounter Additional Health Concerns Infection Onset Date Last Indicated Resolved Time MRSA 03/30/2020 03/30/2020 Assessment Noted Time PHQ-9 Depression Total Score: 0 12/15/19 21 8:53 AM LICENSED ELECTRICIAN documented as of this encounter Care Teams Customer Agent Relationship Specialty Start Date End Date John Méndez MD PCP - General Family Medicine 09/28/19 04/26/24 documented as of this encounter
--- OUTSIDE RECORDS SUMMARY | 2024-10-20 03:53 | XMS_ITS | Encounter Summary ---
Author Organization [facility] Address [address] 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 Not on file documented as of this encounter Miscellaneous Notes * Telephone Encounter - Darlin Fontana RN - 07/23/2021 5:29 PM CDT error documented in this encounter Plan of Treatment Upcoming Encounters Date Type Department Care Team (Late st Contact Info) Description 11/02/2024 8:15 AM SEMICONDUCTOR TECHNICIAN Office Visit [facility] [address]2 [place] [address] Dakota Fabian, PROGRAM PARAPROFESSIONAL, SUSTAINABILITY OFFICER #[address] [address] 11/26/2024 11:30 AM SEMICONDUCTOR TECHNICIAN Office Visit [facility] [address] [place] [address] Maggie Tolentino, PAC [address]2 [place] [address] documented as of this encounter Visit Diagnoses Not on filedocumented in this encounter Additional Health Concerns Infection Onset Date Last Indicated Resolved Time MRSA 03/30/2020 03/30/2020 Assessment Noted Time PHQ-9 Depression Total Score: 0 12/15/19 21 8:53 AM SEMICONDUCTOR TECHNICIAN documented as of this encounter Care Teams Equalizer Operator Relationship Specialty Start Date End Date John Méndez MD PCP - General Family Medicine 09/28/19 04/26/24 documented as of this encounter
--- OUTSIDE RECORDS SUMMARY | 2024-10-20 03:53 | XMS_ITS | Encounter Summary ---
Author Organization [facility] Address [address] [facility] 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 No / Unsure 08/02/2021 5:13 PM CDT documented as of this encounter Miscellaneous Notes * Telephone Encounter - Antoinette Arora RN - 08/22/2021 8:27 AM CST PDMP 07/24/21 Medication failed the protocol, provider to review and approve the medication order if appropriate. Requested Prescriptions Pending Prescriptions Disp Refills acetaminophen-codeine (TYLENOL #3) 300-30 MG Tablet [Pharmacy Med Name: ACETAMINOPHEN-COD #3 TABLET] 90 Tablet 0 Sig: Take 1 Tablet by mouth 3 times daily as needed for Mild or more severe pain. [facility] Not Delegated - Analgesics: Opioid Agonist Combinations Failed - 08/22/2021 8:27 AM Failed - This refill cannot be delegated Passed - Valid encounter within last 6 months Past Office Visits Recent Outpatient Visits 3 months ago Essential hypertension [facility] - John Luna MD 5 months ago Acute non-recurrent maxillary sinusitis [facility] - John Luna MD 7 months ago Moderate episode of recurrent major depressive disorder (HCC) [facility] John Delarosa MD 8 months ago Moderate episode of recurrent major depressive disorder (HCC) [facility] John Delarosa MD 9 months ago Mixed hyperlipidemia [facility] John Delarosa MD Upcoming Appointments GOLD LEAF LAYER - Recent and Past Visits Recent Visits [...] [facility] Showing recent visits within past 460 days with a meds authorizing provider and meeting all other requirements Future Appointments No visits were found meeting these conditions. Showing future appointments within next 90 days with a meds authorizing provider and meeting all other requirements escitalopram (LEXAPRO) 20 MG Tablet [Pharmacy Med Name: ESCITALOPRAM 20 MG TABLET] 90 Tablet 1 Sig: TAKE 1 TABLET BY MOUTH EVERY DAY SSRI (6 Month Refill Only) Protocol Passed - 08/22/2021 8:27 AM Passed - Visit with relevant provider in past 6 months or upcoming 90 days Recent Visits Date Type Provider Dept 05/01/21 Office Visit John Méndez MD [facility] 03/14/21 Office Visit John M[facility]dez MD [facility] [place] Showing recent visits within past 182 [...] adjustment disorder, OCD, or PTSD visit diagnosis IC WELDER documented in this encounter Plan of Treatment Upcoming Encounters Date Type Department Care Team (Late st Contact Info) Description 11/02/2024 8:15 AM ATOMIC WELDER Office Visit [facility] [address] [place] [address] Dakota Fabian APRN, ASSEMBLY LINE BRAZER #[address] [address] 11/26/2024 11:30 AM ATOMIC WELDER Office Visit [facility] [address] [place] [address] Maggie Tolentino, PAC [address] [place] [address] documented as of this encounter Visit Diagnoses Diagnosis Sacroiliac joint dysfunction of both sides Disorders of sacrum Degenerative lumbar disc Degeneration of lumbar or lumbosacral intervertebral disc documented in this encounter Additional Health Concerns Infection Onset Date Last Indicated Resolved Time MRSA 03/30/2020 03/30/2020 COVID - 19 09/11/2024 09/11/2024 09/11/2024 7:21 PM ATOMIC WELDER Assessment Noted Time PHQ-9 Depression Total Score: 0 12/15/19 8:53 AM ATOMIC WELDER documented as of this encounter Care Teams Environmental Solutions Engineer Relationship Specialty Start Date End Date John Méndez MD PCP - General Family Medicine 09/28/19 04/26/24 Dakota Fabian, ULTRASOUND TECHNOLOGIST, ASSEMBLY LINE BRAZER #[address] [address] PCP - General Advanced Practice Nurse 04/27/24 documented as of this encounter
--- OUTSIDE RECORDS SUMMARY | 2024-10-20 03:53 | XMS_ITS | Encounter Summary ---
Author Organization [facility] Address [address] [facility] [place] [address] Phone Care Team Providers Care Manager Document Control Name Role Phone John Méndez MD Primary Care Provider [phone] Reason for Referral * Radiology Services (Routine) - Closed Specialty Diagnoses / Procedures Referred By Contac t Referred To Contact Radiology Diagnoses Encounter for screening mammogram for malignant neoplasm of breast Procedures MARCO A SCREENING BILATERAL DIGITAL W CAD W SHENG John Méndez MD Phone: tel: fax: Referral ID Status Reason Start Date Expiration Date Visits Re quested Visits Authorized [id number] Closed 07/26/2021 1 1 Encounter Details Date Type Department Care Team (Late st Contact Info) Description 07/26/2021 Transcribe Orders [facility] Central Scheduling [address] [place] [id number] John Méndez MD [address] [place] [address] Encounter for screening mammogram for malignant neoplasm of breast (Primary Dx) Social History Tobacco Use Types [...] 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 Not on file documented as of this encounter Plan of Treatment Upcoming Encounters Date Type Department Care Team (Late st Contact Info) Description 11/02/2024 8:15 AM ODD JOB LABORER Office Visit [facility] [address]2 [place] [address] Dakota Fabian APRN, FUNDRAISING SPECIALIST #[address] [address] 11/26/2024 11:30 AM ODD JOB LABORER Office Visit [facility] [address] [place] [address] Maggie Tolentino, PAC [address] [place] [address] documented as of this encounter Results * MARCO A SCREENING [...] to exams dated: ??07/22/2020, 09/05/2018, and 02/13/2016 [facility]. ?? BREAST TISSUE:The tissue of both breasts [...] Killian Sandoval M.D. ? ll/penrad:08/03/2021 11:33:14 ?? Air Sealing Technician(s): Nellie ??RT Pam(R)(M), [facility] letter sent: Normal Exam ?? Reading location: [facility] BI-RADS: 2 Benign Procedure Note Killian Sandoval [...] exams dated: 07/22/2020, 09/05/2018, and 02/13/2016 [facility]. BREAST TISSUE:The tissue of both breasts is [...] exam. Electronically signed by: Killian barron/antoine:08/03/2021 11:33:14 Air Sealing Technician(s): RT Freddie(R)(M), [facility] letter sent: Normal Exam Reading location: [facility] BI-RADS: 2 Benign us John Méndez MD IMG MAMMO ORDERABLES Final Resul t documented in this encounter Visit Diagnoses Diagnosis Encounter for screening mammogram for malignant neoplasm of breast- Primary Other screening mammogram Encounter for screening mammogram for malignant neoplasm of breast Other screening mammogram documented in this encounter Additional Health Concerns Infection Onset Date Last Indicated Resolved Time MRSA 03/30/2020 03/30/2020 Assessment Noted Time PHQ-9 Depression Total Score: 0 12/15/19 21 8:53 AM ODD JOB LABORER documented as of this encounter Care Teams Manager Document Control Relationship Specialty Start Date End Date John Méndez MD PCP - General Family Medicine 09/28/19 04/26/24 documented as of this encounter
--- OUTSIDE RECORDS SUMMARY | 2024-10-20 03:53 | XMS_ITS | Encounter Summary ---
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 Not on file [...] st Contact Info) Description 11/02/2024 8:15 AM HYDROELECTRIC PLANT MAINTAINER Office Visit [facility] - Family Medicine [facility] [address]2 [place] [address] Dakota Fabian, SEALANT MIXER, STRATEGIC BUSINESS DEVELOPMENT #[address] [address] 11/26/2024 11:30 AM HYDROELECTRIC PLANT MAINTAINER Office Visit [facility] - [place] [address] [place] [address] Maggie Tolentino, PAC [address] [place] [address] documented as of this encounter Visit Diagnoses Not on filedocumented in this encounter Additional Health Concerns Infection Onset Date Last Indicated Resolved Time MRSA 03/30/2020 03/30/2020 Assessment Noted Time PHQ-9 Depression Total Score: 0 12/15/19 21 8:53 AM HYDROELECTRIC PLANT MAINTAINER documented as of this encounter Care Teams Deputy Chief Executive Relationship Specialty Start Date End Date John Méndez MD PCP - General Family Medicine 09/28/19 04/26/24 documented as of this encounter
--- OUTSIDE RECORDS SUMMARY | 2024-10-20 03:53 | XMS_ITS | Encounter Summary ---
Author Organization [facility] Address [address] 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 Call transferred to medication management line in the office at this time. documented in this encounter Plan of Treatment Upcoming Encounters Date Type Department Care Team (Late st Contact Info) Description 11/02/2024 8:15 AM SEED CUTTER Office Visit [facility] [address] [place] [address] Dakota Fabian APRN, PITCH FILLER #[address] [address] 11/26/2024 11:30 AM SEED CUTTER Office Visit [facility] [address] [place] [address] Maggie Tolentino, PAC [address] [place] [address] documented as of this encounter Visit Diagnoses Not on filedocumented in this encounter Additional Health Concerns Infection Onset Date Last Indicated Resolved Time MRSA 03/30/2020 03/30/2020 Assessment Noted Time PHQ-9 Depression Total Score: 0 12/15/19 21 8:53 AM SEED CUTTER documented as of this encounter Care Teams Private Investigator Relationship Specialty Start Date End Date John Méndez MD PCP - General Family Medicine 09/28/19 04/26/24 documented as of this encounter
--- OUTSIDE RECORDS SUMMARY | 2024-10-20 03:53 | XMS_ITS | Encounter Summary ---
Author Organization 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 No / Unsure 03/22/2022 3:20 PM CDT documented as of this encounter Plan of Treatment Upcoming Encounters Date Type Department Care Team (Late st Contact Info) Description 11/02/2024 8:15 AM FOOD AND BEVERAGE ORDER CLERK Office Visit [facility] Medical Group - Family Medicine [facility] #2 [place] [address] Dakota Fabian, METAL PATTERNMAKER APPRENTICE, DIRECTOR RIVER RESTORATION #[address] [address] 11/26/2024 11:30 AM FOOD AND BEVERAGE ORDER CLERK Office Visit [facility] - [facility] - [place] [address] [place] [address] Maggie Tolentino, [facility] #2 [place] [address] documented as of this encounter Visit Diagnoses Not on filedocumented in this encounter Additional Health Concerns Infection Onset Date Last Indicated Resolved Time MRSA 03/30/2020 03/30/2020 Assessment Noted Time PHQ-9 Depression Total Score: 0 12/15/19 21 8:53 AM FOOD AND BEVERAGE ORDER CLERK documented as of this encounter Care Teams Sheriff'S Sergeant Relationship Specialty Start Date End Date John Méndez MD PCP - General Family Medicine 09/28/19 04/26/24 documented as of this encounter
--- OUTSIDE RECORDS SUMMARY | 2024-10-20 03:53 | XMS_ITS | Encounter Summary ---
Author Organization [facility] Address [address] 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 No / Unsure 05/07/2021 8:48 AM CDT documented as of this encounter Last Filed Vital Signs Vital Sign Reading Time Taken Comments Blood Pressure 140/80 05/07/2021 9:06 AM CDT Pulse 88 05/07/2021 9:06 AM CDT Temperature - - Respiratory Rate - - Oxygen Saturation 98% 05/07/2021 9:06 AM CDT Inhaled Oxygen Concentration - - Weight - - Height - - Body Mass Index - - documented in this encounter Progress Notes * Jacinta Haro RN - 05/07/2021 9:00 AM CDT Vitals: 05/07/21905 BP: 140/80 Pulse: 88 SpO2: 98% HPI: Patient presents today for blood pressure check for BP check Notify provider of any positive findings. Chest pain: No Pain rating: Headache: No Pain rating: Confusion: No Drowsiness: No Difficulty breathing: No Dizziness: No Orthostatic B/P's: Cough: No Feet swelling: No Nausea/vomiting: No Palpitations: No Blurred vision: No Bloody nose: No Tingling hands/feet: No Blood tinged sputum: No Fatigue: No Blood in urine: No Ringing in the ear(s): No GI disturbance: No Leg cramps: No Sexual dysfunction: No Hearing problems: No Rash: No Irregular heart rate: No Urine output: unchanged Are there concerns with medications? no Are refills needed? no Compliance with medications? yes Current Outpatient Medications Medication Sig Dispense Refill ??? acetaminophen-codeine (TYLENOL #3) 300-30 MG Tablet TAKE 1 TABLET BY MOUTH 3 TIMES DAILY NEEDED FOR MODERATE OR MORE SEVERE PAIN. DNF 02/26 90 Tablet 0 ??? albuterol (PROVENTIL/VENTOLIN) 1.25 MG/3ML Nebulizer Soln take 3 mL by inhalation every 4 hoursas needed for Wheezing or Cough. 90 Vial 3 ??? albuterol 108 (90 Base) MCG/ACT Aerosol Solution TAKE 2 PUFFS BY INHALATION EVERY 4 HOURS NEEDED FOR WHEEZING OR COUGH. 17 Inhaler 2 ??? amLODIPine (NORVASC) 10 MG Tablet Take 10 mg by mouth daily. ??? atorvastatin (LIPITOR) 20 MG Tablet Take 1 Tab by mouth every evening. 90 Tab 3 ??? buPROPion (WELLBUTRIN) 300 MG TABLET SR 24 HR XL tablet Take 300 mg by mouth daily. 2 ??? cetirizine (ZYRTEC) 10 MG Tablet Take 1 Tab by mouth daily. 90 Tab 3 ??? escitalopram (LEXAPRO) 20 MG Tablet TAKE 1 TABLET BY MOUTH EVERY DAY 90 Tablet 1 ??? montelukast (SINGULAIR) 10 MG Tablet Take 10 mg by mouth daily. 3 ??? tiZANidine (ZANAFLEX) 2 MG Capsule Take 2 mg by mouth nightly. No current facility-administered medications for this visit. Assessment: Notify physician of any positive findings. Lethargic: no Difficulty breathing: no Edema: no Skin color: good Appetite: good Fluid intake: good Other: () documented in this encounter Plan of Treatment Upcoming Encounters Date Type Department Care Team (Late st Contact Info) Description 11/02/2024 8:15 AM CAMERA STORAGE CLERK Office Visit [facility] [address] [place] [address] Dakota Fabian APRN, PUFFER TENDER #[address] [address] 11/26/2024 11:30 AM CAMERA STORAGE CLERK Office Visit [facility] #[address] [place] [address] Maggie Tolentino, PAC [address] [place] [address] documented as of this encounter Visit Diagnoses Diagnosis BP check- Primary Screening for hypertension documented in this encounter Additional Health Concerns Infection Onset Date Last Indicated Resolved Time MRSA 03/30/2020 03/30/2020 Assessment Noted Time PHQ-9 Depression Total Score: 0 12/15/19 8:53 AM CAMERA STORAGE CLERK documented as of this encounter Care Teams Guard Chief Relationship Specialty Start Date End Date John Méndez MD PCP - General Family Medicine 09/28/19 04/26/24 documented as of this encounter
--- OUTSIDE RECORDS SUMMARY | 2024-10-20 03:53 | XMS_ITS | Encounter Summary ---
Author Organization [facility] Address [address] [facility] 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 No / Unsure 05/07/2021 8:48 AM CDT documented as of this encounter Miscellaneous Notes * Telephone Encounter - Rosemarie Pollack RN - 05/21/2021 3:59 PM CDT [place] PD[place] last fill date 04/22/21 Medication failed the protocol, provider to review and approve the medication order if appropriate. Requested Prescriptions Pending Prescriptions Disp Refills acetaminophen-codeine (TYLENOL #3) 300-30 MG Tablet [Pharmacy Med Name: ACETAMINOPHEN-COD #3 TABLET] 90 Tablet 0 Sig: TAKE 1 TABLET BY MOUTH 3 TIMES DAILY NEEDED FOR MODERATE OR MORE SEVERE PAIN. DNF 04/22 [facility] Not Delegated - Analgesics: Opioid Agonist Combinations Failed - 05/21/2021 3:59 PM Failed - This refill cannot be delegated Passed - Valid encounter within last 6 months Past Office Visits Recent Outpatient Visits 2 weeks ago Essential hypertension [facility] - John Luna MD 2 months ago Acute non-recurrent maxillary sinusitis [facility] - John Luna MD 4 months ago Moderate episode of recurrent major depressive disorder (HCC) [facility] John Delarosa MD 5 months ago Moderate episode of recurrent major depressive disorder (HCC) [facility] John Delarosa MD 6 months ago Mixed hyperlipidemia [facility] John Delarosa MD Upcoming Appointments PATTERN AND CHAIN MAKER - Recent and Past Visits Recent Visits Date Type Provider Dept 05/01/21 Office Visit John Méndez MD [facility] 03/14/21 Office Visit John Méndez MD [facility] 01/11/21 Office Visit John Méndez MD [facility] 12/14/20 Office Visit John Méndez MD [facility] 11/15/20 Office Visit John Méndez MD [facility] 06/09/20 Office Visit John Méndez MD [facility] 05/02/20 Office Visit John Méndez MD [facility] 03/30/20 Office Visit John Méndez MD [facility] Showing recent visits within past 460 days [...] st Contact Info) Description 11/02/2024 8:15 AM RECORDS OFFICER Office Visit [facility] [address] [place] [address] Dakota Fabian APRN, DOCTORATE OF CHIROPRACTIC #[address] [address] 11/26/2024 11:30 AM RECORDS OFFICER Office Visit [facility] #[address] [place] [address] Maggie Tolentino, PAC [address] [place] [address] documented as of this encounter Visit Diagnoses Diagnosis Sacroiliac joint dysfunction of both sides- Primary Disorders of sacrum Degenerative lumbar disc Degeneration of lumbar or lumbosacral intervertebral disc documented in this encounter Additional Health Concerns Infection Onset Date Last Indicated Resolved Time MRSA 03/30/2020 03/30/2020 COVID - 19 09/11/2024 09/11/2024 09/11/2024 7:21 PM RECORDS OFFICER Assessment Noted Time PHQ-9 Depression Total Score: 0 12/15/19 8:53 AM RECORDS OFFICER documented as of this encounter Care Teams Field Broomer Relationship Specialty Start Date End Date John Méndez MD PCP - General Family Medicine 09/28/19 04/26/24 Dakota Fabian, THOM, DOCTORATE OF CHIROPRACTIC [address] [place] [id number] PCP - General Advanced Practice Nurse 04/27/24 documented as of this encounter
--- OUTSIDE RECORDS SUMMARY | 2024-10-20 03:53 | XMS_ITS | Encounter Summary ---
Author Organization [facility] Address [address] [place] [address] Phone Care Team Providers Care Hospice Director Name Role Phone John Méndez MD Primary Care Provider Reason for Visit * Reason Onset Date Comments Erroneous Encounter - Disregard 04/20/2021 Encounter Details Date Type Department Care Team (Late st Contact Info) Description 04/20/[address] 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 No / Unsure 04/19/2021 8:34 AM CDT documented as of this encounter Miscellaneous Notes * Telephone Encounter - Maxine Booker RN - 04/20/2021 4:06 PM CDT Error documented in this encounter Plan of Treatment Upcoming Encounters Date Type Department Care Team (Late st Contact Info) Description 11/02/2024 8:15 AM LAND LEASE INFORMATION CLERK Office Visit [facility] [place] [address] [place] [address] Dakota Fabian APRN, HOOP DRIVING MACHINE OPERATOR HELPER [address] [address] 11/26/2024 11:30 AM LAND LEASE INFORMATION CLERK Office Visit [facility] [address] [facility] [place] [address] Maggie Tolentino, PAC [address] [place] [address] documented as of this encounter Visit Diagnoses Not on filedocumented in this encounter Additional Health Concerns Infection Onset Date Last Indicated Resolved Time MRSA 03/30/2020 03/30/2020 Assessment Noted Time PHQ-9 Depression Total Score: 0 12/15/19 21 8:53 AM LAND LEASE INFORMATION CLERK documented as of this encounter Care Teams Hospice Director Relationship Specialty Start Date End Date John Méndez MD PCP - General Family Medicine 09/28/19 04/26/24 documented as of this encounter
--- OUTSIDE RECORDS SUMMARY | 2024-10-20 03:53 | XMS_ITS | Encounter Summary ---
Author Organization [facility] Address [address] [facility] 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 No / Unsure 03/22/2022 3:20 PM CDT documented as of this encounter Miscellaneous Notes * Telephone Encounter - John Méndez MD - 03/22/2022 3:38 PM CDT I wish that they would send these to my nurse as I do not always get to look at my messages right away, I do not understand why this cannot be done. I did not even see this. It would be better to send to the nurses so they can alert us if necessary or talk to the patient right away. * Telephone Encounter - Jennifer Plasencia RN - 03/22/2022 3:37 PM CDT Melinda is noted to be in ED. * Telephone Encounter - Jennifer Plasencia RN - 03/22/2022 2:16 PM CDT SITUATION: Melinda calling with concern for colitis and IBS Cannot have anything with seeds, roughage Vomiting and diarrhea for 3 days- Has vomited twice today Has 8-9 stools today - watery- stringy Bottom is raw from wiping- blood on tissue when wipes Sharp pains in the center and right side of her stomach-7-8/10- lasts a couple minutes- pain is like a knife twisting BACKGROUND: No one else in the home is ill. Covid the end of Oct 2021 HX GERD, Hypertensive disorder, chronic opiate use Has had problems her whole life- had LAP done as a teenager and was told that her colon has spasms ASSESSMENT: Symptom Description / Location: as above Pain (0-10): as above Temp: denies Treatment / Response: saltines, peppermint RECOMMENDATION: See care advice and disposition for Guideline First positive answer recorded, all responses to prior questions were negative. If symptoms increase, change or if new symptoms develop, call your HCP or call back. Recommendations were based on caller information and is not a diagnosis. Verified and reviewed all triage information with caller. Reason for Disposition ??? Pain is mainly in upper abdomen (if needed ask: 'is it mainly above the belly button?') ??? Patient sounds very sick or weak to the triager Protocols used: ABDOMINAL PAIN - FEMALE-A-OH, ABDOMINAL PAIN - UPPER-A-OH documented in this encounter Plan of Treatment Upcoming Encounters Date Type Department Care Team (Late st Contact Info) Description 11/02/2024 8:15 AM HOTEL SECURITY OFFICER Office Visit [facility] [address] [place] [address] Dakota Fabian APRN, MASSOTHERAPIST #[address] [address] 11/26/2024 11:30 AM HOTEL SECURITY OFFICER Office Visit [facility] [address] [place] [address] Maggie Tolentino, PAC [address] [place] [address] documented as of this encounter Visit Diagnoses Not on filedocumented in this encounter Additional Health Concerns Infection Onset Date Last Indicated Resolved Time MRSA 03/30/2020 03/30/2020 Assessment Noted Time PHQ-9 Depression Total Score: 0 12/15/19 8:53 AM HOTEL SECURITY OFFICER documented as of this encounter Care Teams In School Suspension Aide Relationship Specialty Start Date End Date John Méndez MD PCP - General Family Medicine 09/28/19 04/26/24 documented as of this encounter
--- OUTSIDE RECORDS SUMMARY | 2024-10-20 03:53 | XMS_ITS | Encounter Summary ---
Author Organization [facility] Address [address] 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 SCIENCE TECHNOLOGY INSTRUCTOR * Telephone Encounter - Luther Callaway - 11/26/2021 1:24 PM CST Patient calling, to follow up if the tylenol has been refilled yet. Reviewed the message from the provider below. Patient states she will call next time sooner. Patient notified and verbalized understanding. SCIENCE TECHNOLOGY INSTRUCTOR * Telephone Encounter - Hair Eller RN - 11/23/2021 6:36 PM CST Patient is calling to see if her prescription has been filled. Advised it is still pending and to make sure to call 3-4 days in advance to make sure she does not run out. Patient verbalized understanding. SCIENCE TECHNOLOGY INSTRUCTOR * Telephone Encounter - John Méndez MD - 11/23/2021 5:29 PM CST We go the request yesterday. It was just sent to me today. I always fill the scripts at the end of day. So I would suggest that she send for the refill 3-4 days before they are due so she does not have to call. Sometimes if I only have a half day they may not be filled that night. SCIENCE TECHNOLOGY INSTRUCTOR * Telephone Encounter - Reta Pereira RN - 11/23/2021 4:16 PM CST Patient is calling regarding her medication refill of Tylenol #3 which is due tomorrow. Please advise and notify patient. SCIENCE TECHNOLOGY INSTRUCTOR documented in this encounter Plan of Treatment Upcoming Encounters Date Type Department Care Team (Late st Contact Info) Description 11/02/2024 8:15 AM AGRISCIENCE TECHNOLOGY INSTRUCTOR [facility] [place] [address] [place] [place] [address] Dakota Fabian APRN, BILLING MANAGER [address] [address] 11/26/2024 11:30 AM AGRISCIENCE TECHNOLOGY INSTRUCTOR Office Visit [facility] [place] [address] [place] [address] Maggie Tolentino, PAC [address] [place] [address] documented as of this encounter Visit Diagnoses Not on filedocumented in this encounter Additional Health Concerns Infection Onset Date Last Indicated Resolved Time MRSA 03/30/2020 03/30/2020 Assessment Noted Time PHQ-9 Depression Total Score: 0 12/15/19 21 8:53 AM AGRISCIENCE TECHNOLOGY INSTRUCTOR documented as of this encounter Care Teams Pharmacy Aide Relationship Specialty Start Date End Date John Méndez MD PCP - General Family Medicine 09/28/19 04/26/24 documented as of this encounter
--- OUTSIDE RECORDS SUMMARY | 2024-10-20 03:53 | XMS_ITS | Encounter Summary ---
Author Organization [facility] Address [address] [place] [address] Phone Care Team Providers Care Forester Aide Name Role Phone John Méndez MD Primary Care Provider [phone] Reason for Referral * Other (Routine) - Closed Specialty Diagnoses / Procedures Referred By Magui jacobo Referred To Contact Gastroenterology Diagnoses Diarrhea, unspecified type Procedures GASTRO PROCEDURE Elvia Molina PAC [address] [place] [address] Phone: tel: fax: Rachelle Hood MD [address] [place] [address] Phone: tel: fax: Referral ID Status Reason Start Date Expiration Date Visits Re quested Visits Authorized [id number] Closed 05/08/2022 1 1 * Other (Routine) - Closed Specialty Diagnoses / Procedures Referred By Magui jacobo Referred To Contact Gastroenterology Diagnoses Gastroesophageal reflux disease, unspecified whether esophagitis present Procedures GASTRO PROCEDURE Elvia Molina PAC [address] [place] [address] Phone: tel: fax: Rachelle Hood MD [address] [place] [address] Phone: tel: fax: Referral ID Status Reason Start Date Expiration Date Visits Re quested Visits Authorized [id number] Closed 05/08/2022 1 1 * Radiology Services (Routine) - Closed Specialty Diagnoses / Procedures Referred By Contaliza t Referred To Contact Radiology Diagnoses Nausea and vomiting, unspecified vomiting type Upper abdominal pain Procedures NM HEPATOBILIARY WITH PHARM Elvia Molina, PAC [address] [place] [address] Phone: tel: fax: Referral ID Status Reason Start Date Expiration Date Visits Re quested Visits Authorized [id number] Closed 05/08/2022 1 1 Reason for Visit * Reason Comments New Patient Diarrhea Nausea Encounter Details Date Type Department Care Team (Latest Contact Info) Description 05/08/2022 10:20 AM CDT Office Visit [facility] - Gastroenterology - [place] [address] [place] [address] Elvia Molina, PAC [address] [place] [address] Gastroesophageal reflux disease, unspecified whether esophagitis present (Primary Dx); Diarrhea, unspecified type; Nausea and vomiting, unspecified vomiting type; Upper abdominal pain; Encounter for preprocedure screening laboratory testing for COVID-19 Discharge Disposition: Discharged to home or Selfcare [...] 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 No / Unsure 05/08/2022 10:01 AM CDT documented as of this encounter Last Filed Vital Signs Vital Sign Reading Time Taken Comments Blood Pressure 142/90 05/08/2022 10:06 AM CDT Pulse 56 05/08/2022 10:06 AM CDT Temperature 36.9 ??C (98.4 ??F) 05/08/2022 10:06 AM C DT Respiratory Rate 22 05/08/2022 10:06 AM CDT Oxygen Saturation 98% 05/08/2022 10:06 AM CDT Inhaled Oxygen Concentration - - Weight 103.9 kg (229 lb) 05/08/2022 10:06 AM CDT Height 157.5 cm (5' 2 ) 05/08/2022 10:06 AM CDT Body Mass Index 41.88 05/08/2022 10:06 AM CDT documented in this encounter Patient Instructions * Patient Instructions* Elvia Molina PAC - 05/08/2022 10:20 AM CDT Images from the original note were not included. Use omeprazole 40 mg 1 tab daily - be sure to take 30 minutes before a meal containing protein May use famotidine 20 mg 1 tab am and pm or Tums for breakthrough Avoid eating 3-4 hours prior to bed May need to elevate head of bed approximately 45??. Avoid frequent/chronic use of NSAIDs such as ibuprofen/naproxen May use acetaminophen/ Tylenol arthritis as needed. Avoid fried/ greasy/ spicy foods/ red sauces/ citrus especially in the evening Reduce caffeine/ carbonated beverages/alcohol/tobacco/ marijuana May use over the counter Imodium 2 tabs after first loose stool then one after each loose stool up to max 8 tabs/ 24 hours or Imodium 1 tab 30-60 minutes before meals and at bedtime Generic Benefiber begin with 2 tbsp once daily and may increase to 2 x a day to form stools Probiotics daily-highest colony count you can afford to purchase on a routine basis. [place] diet Stop caffeine/ carbonated beverages/ artificial sweeteners/ alcohol/ tobacco and marijuana Increase water at least 64 ounces per day Await stool studies and colonoscopy Stool specimens must be WATERY to be tested. Please keep a detailed food journal- review to look for a pattern foods which may be irritating Avoid all dairy and wheat/ flour based foods for at least 4-6 weeks May resume dairy after 4-6 weeks and if diarrhea/ abdominal pain/ bloating occur try using over thecounter Lactaid as directed- if symptoms persist avoid dairy. After an addition 4-6 weeks, may try adding wheat/ flour based foods- if problems recur, stop and avoid such foods If you had lab work or other testing ordered at this visit, we will contact you regarding the results once all results have been received and reviewed. You may be able to see results in your my chart as they come in, please remember the computer is only given parameters for what is ???normal?? or ???abnormal?? . The significance of anything in the ???abnormal?? range is based on the remainingtest results. Again we will contact you when we have received and reviewed all the results. If you were advised to have a procedure and have not heard from our office or the appropriate department within 2 weeks please call to schedule. Please check in with registration at least 15 minutes prior to all appointments. Please schedule follow-up in near future to discuss any concerns that were not addressed fully at today's office visit. To continue to provide excellent patient care, you may receive a survey regarding your visit today.To help us serve you better, please complete and return. These surveys are completely anonymous. If you have any concerns/ questions regarding today's visit, please call. If you experience any new or worsening symptoms, please call or go to the emergency department. [employer] Current Therapy 2020 (pp. 213-216). [place], [place]: [employer]. > Gastroesophageal Reflux Disease, Adult Gastroesophageal reflux (ROSITA) happens when acid from the stomach flows up into the tube that connects the mouth and the stomach (esophagus). Normally, food travels down the esophagus and stays in thestomach to be digested. However, when a person has ROSITA, food and stomach acid sometimes move back up into the esophagus. If this becomes a more serious problem, the person may be diagnosed with a disease called gastroesophageal reflux disease (GERD). GERD occurs when the reflux: ?? Happens often. ?? Causes frequent or severe symptoms. ?? Causes problems such as damage to the esophagus. When stomach acid comes in contact with the esophagus, the acid may cause inflammation in the esophagus. Over time, GERD may create small holes (ulcers) in the lining of the esophagus. What are the causes? This condition is caused by a problem with the muscle between the esophagus and the stomach (lower esophageal sphincter, or LES). Normally, the LES muscle closes after food passes through the esophagus to the stomach. When the LES is weakened or abnormal, it does not close properly, and that allowsfood and stomach acid to go back up into the esophagus. The LES can be weakened by certain dietary substances, medicines, and medical conditions, including: ?? Tobacco use. ?? . ?? Having a hiatal hernia. ?? Alcohol use. ?? Certain foods and beverages, such as coffee, chocolate, onions, and peppermint. What increases the risk? You are more likely to develop this condition if you: ?? Have an increased body weight. ?? Have a connective tissue disorder. ?? Take NSAIDs, such as ibuprofen. What are the signs or symptoms? Symptoms of this condition include: ?? Heartburn. ?? Difficult or painful swallowing and the feeling of having a lump in the throat. ?? A bitter taste in the mouth. ?? Bad breath and having a large amount of saliva. ?? Having an upset or bloated stomach and belching. ?? Chest pain. Different conditions can cause chest pain. Make sure you see your health care provider if you experience chest pain. ?? Shortness of breath or wheezing. ?? Ongoing (chronic) cough or a nighttime cough. ?? Wearing away of tooth enamel. ?? Weight loss. How is this diagnosed? This condition may be diagnosed based on a medical history and a physical exam. To determine if youhave mild or severe GERD, your health care provider may also monitor how you respond to treatment. You may also have tests, including: ?? A test to examine your stomach and esophagus with a small camera (endoscopy). ?? A test that measures the acidity level in your esophagus. ?? A test that measures how much pressure is on your esophagus. ?? A barium swallow or modified barium swallow test to show the shape, size, and functioning of your esophagus. How is this treated? Treatment for this condition may vary depending on how severe your symptoms are. Your health care provider may recommend: ?? Changes to your diet. ?? Medicine. ?? Surgery. The goal of treatment is to help relieve your symptoms and to prevent complications. Follow these instructions at home: Eating and drinking ?? Follow a diet as recommended by your health care provider. This may involve avoiding foods and drinks such as: ? Coffee and tea, with or without caffeine. ? Drinks that contain alcohol. ? Energy drinks and sports drinks. ? Carbonated drinks or sodas. ? Chocolate and cocoa. ? Peppermint and mint flavorings. ? Garlic and onions. ? Horseradish. ? Spicy and acidic foods, including peppers, chili powder, lehman powder, vinegar, hot sauces, and barbecue sauce. ? [place] fruit juices and citrus fruits, such as oranges, gigi, and limes. ? Tomato-based foods, such as red sauce, chili, salsa, and pizza with red sauce. ? Fried and fatty foods, such as donuts, malawian fries, potato chips, and high- fat dressings. ? High-fat meats, such as hot dogs and fatty cuts of red and white meats, such as rib eye steak, sausage, ham, and quinn. ? High-fat dairy items, such as whole milk, butter, and cream cheese. ?? Eat small, frequent meals instead of large meals. ?? Avoid drinking large amounts of liquid with your meals. ?? Avoid eating meals during the 2-3 hours before bedtime. ?? Avoid lying down right after you eat. ?? Do not exercise right after you eat. Lifestyle ?? Do not use any products that contain nicotine or tobacco. These products include cigarettes, chewing tobacco, and vaping devices, such as e-cigarettes. If you need help quitting, ask your health care provider. ?? Try to reduce your stress by using methods such as yoga or meditation. If you need help reducingstress, ask your health care provider. ?? If you are overweight, reduce your weight to an amount that is healthy for you. Ask your health care provider for guidance about a safe weight loss goal. General instructions ?? Pay attention to any changes in your symptoms. ?? Take hnqg-ywq-ycklirh and prescription medicines only as told by your health care provider. Do not take aspirin, ibuprofen, or other NSAIDs unless your health care provider told you to take these medicines. ?? Wear loose-fitting clothing. Do not wear anything tight around your waist that causes pressure on your abdomen. ?? Raise (elevate) the head of your bed about 6 inches (15 cm). You can use a wedge to do this. ?? Avoid bending over if this makes your symptoms worse. ?? Keep all follow-up visits. This is important. Contact a health care provider if: ?? You have: ? New symptoms. ? Unexplained weight loss. ? Difficulty swallowing or it hurts to swallow. ? Wheezing or a persistent cough. ? A hoarse voice. ?? Your symptoms do not improve with treatment. Get help right away if: ?? You have sudden pain in your arms, neck, jaw, teeth, or back. ?? You suddenly feel sweaty, dizzy, or light-headed. ?? You have chest pain or shortness of breath. ?? You vomit and the vomit is green, yellow, or black, or it looks like blood or coffee grounds. ?? You faint. ?? You have stool that is red, bloody, or black. ?? You cannot swallow, drink, or eat. These symptoms may represent a serious problem that is an emergency. Do not wait to see if the symptoms will go away. Get medical help right away. Call your local emergency services (911 in the [place] Do not drive yourself to the hospital. Summary ?? Gastroesophageal reflux happens when acid from the stomach flows up into the esophagus. GERD is a disease in which the reflux happens often, causes frequent or severe symptoms, or causes problems such as damage to the esophagus. ?? Treatment for this condition may vary depending on how severe your symptoms are. Your health care provider may recommend diet and lifestyle changes, medicine, or surgery. ?? Contact a health care provider if you have new or worsening symptoms. ?? Take lwms-gjq-fgalsoy and prescription medicines only as told by your health care provider. Do not take aspirin, ibuprofen, or other NSAIDs unless your health care provider told you to do so. ?? Keep all follow-up visits as told by your health care provider. This is important. This information is not intended to replace advice given to you by your health care provider. Make sure you discuss any questions you have with your health care provider. Document Revised: 2021 Document Reviewed: 2021 [employer] Patient Education ?? 2021 [employer]. Diverticulosis Diverticulosis is a condition that develops when small pouches (diverticula) form in the wall of the large intestine (colon). The colon is where water is absorbed and stool (feces) is formed. The pouches form when the inside layer of the colon pushes through weak spots in the outer layers of the colon. You may have a few pouches or many of them. The pouches usually do not cause problems unless they become inflamed or infected. When this happens, the condition is called diverticulitis. What are the causes? The cause of this condition is not known. What increases the risk? The following factors may make you more likely to develop this condition: ?? Being older than age 60. Your risk for this condition increases with age. Diverticulosis is rareamong people younger than age 30. By age 80, many people have it. ?? Eating a low-fiber diet. ?? Having frequent constipation. ?? Being overweight. ?? Not getting enough exercise. ?? Smoking. ?? Taking yihp-qny-hhwrmzl pain medicines, like aspirin and ibuprofen. ?? Having a family history of diverticulosis. What are the signs or symptoms? In most people, there are no symptoms of this condition. If you do have symptoms, they may include: ?? Bloating. ?? Cramps in the abdomen. ?? Constipation or diarrhea. ?? Pain in the lower left side of the abdomen. How is this diagnosed? Because diverticulosis usually has no symptoms, it is most often diagnosed during an exam for othercolon problems. The condition may be diagnosed by: ?? Using a flexible scope to examine the colon (colonoscopy). ?? Taking an X-ray of the colon after dye has been put into the colon (barium enema). ?? Having a CT scan. How is this treated? You may not need treatment for this condition. Your health care provider may recommend treatment toprevent problems. You may need treatment if you have symptoms or if you previously had diverticulitis. Treatment may include: ?? Eating a high-fiber diet. ?? Taking a fiber supplement. ?? Taking a live bacteria supplement (probiotic). ?? Taking medicine to relax your colon. Follow these instructions at home: Medicines ?? Take jhrv-fgz-ftqaxvz and prescription medicines only as told by your health care provider. ?? If told by your health care provider, take a fiber supplement or probiotic. Constipation prevention Your condition may cause constipation. To prevent or treat constipation, you may need to: ?? Drink enough fluid to keep your urine pale yellow. ?? Take bupd-gzy-ajwahcb or prescription medicines. ?? Eat foods that are high in fiber, such as beans, whole grains, and fresh fruits and vegetables. ?? Limit foods that are high in fat and processed sugars, such as fried or sweet foods. General instructions ?? Try not to strain when you have a bowel movement. ?? Keep all follow-up visits as told by your health care provider. This is important. Contact a health care provider if you: ?? Have pain in your abdomen. ?? Have bloating. ?? Have cramps. ?? Have not had a bowel movement in 3 days. Get help right away if: ?? Your pain gets worse. ?? Your bloating becomes very bad. ?? You have a fever or chills, and your symptoms suddenly get worse. ?? You vomit. ?? You have bowel movements that are bloody or black. ?? You have bleeding from your rectum. Summary ?? Diverticulosis is a condition that develops when small pouches (diverticula) form in the wall ofthe large intestine (colon). ?? You may have a few pouches or many of them. ?? This condition is most often diagnosed during an exam for other colon problems. ?? Treatment may include increasing the fiber in your diet, taking supplements, or taking medicines. This information is not intended to replace advice given to you by your health care provider. Make sure you discuss any questions you have with your health care provider. Document Revised: 04/27/2020 Document Reviewed: 04/27/2020 [employer] Patient Education ?? 2021 [employer] Diverticulitis Diverticulitis is infection or inflammation of small pouches (diverticula) in the colon that form due to a condition called diverticulosis. Diverticula can trap stool (feces) and bacteria, causing infection and inflammation. Diverticulitis may cause severe stomach pain and diarrhea. It may lead to tissue damage in the colon that causes bleeding or blockage. The diverticula may also burst (rupture) and cause infected stool to enter other areas of the abdomen. What are the causes? This condition is caused by stool becoming trapped in the diverticula, which allows bacteria to grow in the diverticula. This leads to inflammation and infection. What increases the risk? You are more likely to develop this condition if you have diverticulosis. The risk increases if you: ?? Are overweight or obese. ?? Do not get enough exercise. ?? Drink alcohol. ?? Use tobacco products. ?? Eat a diet that has a lot of red meat such as beef, pork, or hooks. ?? Eat a diet that does not include enough fiber. High-fiber foods include fruits, vegetables, beans, nuts, and whole grains. ?? Are over 40 years of age. What are the signs or symptoms? Symptoms of this condition may include: ?? Pain and tenderness in the abdomen. The pain is normally located on the left side of the abdomen, but it may occur in other areas. ?? Fever and chills. ?? Nausea. ?? Vomiting. ?? Cramping. ?? Bloating. ?? Changes in bowel routines. ?? Blood in your stool. How is this diagnosed? This condition is diagnosed based on: ?? Your medical history. ?? A physical exam. ?? Tests to make sure there is nothing else causing your condition. These tests may include: ? Blood tests. ? Urine tests. ? CT scan of the abdomen. How is this treated? Most cases of this condition are mild and can be treated at home. Treatment may include: ?? Taking dijd-xpe-faeoqes pain medicines. ?? Following a clear liquid diet. ?? Taking antibiotic medicines by mouth. ?? Resting. More severe cases may need to be treated at a hospital. Treatment may include: ?? Not eating or drinking. ?? Taking prescription pain medicine. ?? Receiving antibiotic medicines through an IV. ?? Receiving fluids and nutrition through an IV. ?? Surgery. When your condition is under control, your health care provider may recommend that you have a colonoscopy. This is an exam to look at the entire large intestine. During the exam, a lubricated, bendable tube is inserted into the anus and then passed into the rectum, colon, and other parts of the large intestine. A colonoscopy can show how severe your diverticula are and whether something else may be causing your symptoms. Follow these instructions at home: Medicines ?? Take yvai-rwq-duregsp and prescription medicines only as told by your health care provider. These include fiber supplements, probiotics, and stool softeners. ?? If you were prescribed an antibiotic medicine, take it as told by your health care provider. Do not stop taking the antibiotic even if you start to feel better. ?? Ask your health care provider if the medicine prescribed to you requires you to avoid driving orusing machinery. Eating and drinking ?? Follow a full liquid diet or another diet as directed by your health care provider. ?? After your symptoms improve, your health care provider may tell you to change your diet. He or she may recommend that you eat a diet that contains at least 25 grams (25 g) of fiber daily. Fiber makes it easier to pass stool. Healthy sources of fiber include: ? Berries. One cup contains 4-8 grams of fiber. ? Beans or lentils. One-half cup contains 5-8 grams of fiber. ? Green vegetables. One cup contains 4 grams of fiber. ?? Avoid eating red meat. General instructions ?? Do not use any products that contain nicotine or tobacco, such as cigarettes, e-cigarettes, and chewing tobacco. If you need help quitting, ask your health care provider. ?? Exercise for at least 30 minutes, 3 times each week. You should exercise hard enough to raise your heart rate and break a sweat. ?? Keep all follow-up visits as told by your health care provider. This is important. You may need to have a colonoscopy. Contact a health care provider if: ?? Your pain does not improve. ?? Your bowel movements do not return to normal. Get help right away if: ?? Your pain gets worse. ?? Your symptoms do not get better with treatment. ?? Your symptoms suddenly get worse. ?? You have a fever. ?? You vomit more than one time. ?? You have stools that are bloody, black, or tarry. Summary ?? Diverticulitis is infection or inflammation of small pouches (diverticula) in the colon that form due to a condition called diverticulosis. Diverticula can trap stool (feces) and bacteria, causinginfection and inflammation. ?? You are at higher risk for this condition if you have diverticulosis and you eat a diet that does not include enough fiber. ?? Most cases of this condition are mild and can be treated at home. More severe cases may need to be treated at a hospital. ?? When your condition is under control, your health care provider may recommend that you have an exam called a colonoscopy. This exam can show how severe your diverticula are and whether something else may be causing your symptoms. ?? Keep all follow-up visits as told by your health care provider. This is important. This information is not intended to replace advice given to you by your health care provider. Make sure you discuss any questions you have with your health care provider. Document Revised: 07/10/2020 Document Reviewed: 07/10/2020 [employer] Patient Education ?? 2021 [employer] documented in this encounter Progress Notes * Elvia Molina PAC - 05/08/2022 10:20 AM CDT Images from the original note were not included. PROBLEM LIST: IBS-D Diverticulosis GERD Melinda Olmedo is a . 47 y.o. female who presents with Chief Complaint Patient presents with ??? New Patient ??? Diarrhea ??? Nausea . DIAGNOSIS, TREATMENT PLAN AND FOLLOW UP: Diagnoses and all orders for this visit: Gastroesophageal reflux disease, unspecified whether esophagitis present - GASTRO PROCEDURE; Future Diarrhea, unspecified type - GASTRO PROCEDURE; Future - CALPROTECTIN, FECAL, DAVEY CALPR; Future - PANCREATIC ELASTASE, FECES, DAVEY ELASF; Future - STOOL, WBC LACTOFERRIN; Future - CULTURE, STOOL; Future Nausea and vomiting, unspecified vomiting type - NM HEPATOBILIARY WITH PHARM; Future Upper abdominal pain - NM HEPATOBILIARY WITH PHARM; Future Encounter for preprocedure screening laboratory testing for COVID-19 - SARS-COV-2 BY MOLECULAR; Future - SARS-COV-2 BY MOLECULAR; Future Return in about 3 months (around 08/08/2022) for after testing completed. S: NPE. Referred by PCP for evaluation chronic diarrhea and nausea. Has had problems with her GI tract since she was a teenager. A lot of diarrhea with seeds/ nuts/ corns/ skins- getting worse. Reports GI workup as a teenager and was diagnosed with spastic colon. Has never had colonoscopy. Reports increased abdominal pain with fried foods. Normal appetite. Heartburn/ reflux. Reports improved withomeprazole. Reports feels nauseated all the time and will have occasional vomiting. Reports upper abdominal pain. Chronic diarrhea up to 10 x a day always really loose and frequently watery. Was using fcpi-lbo-cvnwyrj Imodium but did not seem to continue help. Has not used any for fiber supplementsor probiotics. Denies mucus or blood in stools/ toilet or on tissue. Denies black or tarry stools. Denies constipation. Denies weight loss. Denies / difficulty swallowing/ feeling of foreign body in throat. Fm Hx negative for GI/hepatic/pancreatic cancers. mom has had colitis. Reports extensive family history of diverticular disease. ALLERGIES: Allergies Allergen Reactions ??? Penicillins Rash and Itching Reaction: Rash, , MEDICATIONS: Current Outpatient Medications Medication Sig Dispense Refill ??? acetaminophen-codeine (TYLENOL #3) 300-30 MG Tablet Take 1 Tablet by mouth 3 times daily as needed for Severe pain. 90 Tablet 0 ??? albuterol (PROVENTIL/VENTOLIN) 1.25 MG/3ML Nebulizer Soln take 3 mL by inhalation every 4 hoursas needed for Wheezing or Cough. 300 mL 1 ??? albuterol 108 (90 Base) MCG/ACT Aerosol Solution take 2 Puffs by inhalation every 4 hours as needed for Wheezing. 18 g 1 ??? amLODIPine (NORVASC) 10 MG Tablet Take 1 Tablet by mouth daily. 90 Tablet 2 ??? atorvastatin (LIPITOR) 20 MG Tablet Take 1 Tablet by mouth every evening. 90 Tablet 3 ??? buPROPion (WELLBUTRIN) 150 MG XL tablet Take 1 Tablet by mouth every morning. 90 Tablet 0 ??? cetirizine (ZyrTEC) 10 MG Tablet Take 1 Tablet by mouth daily. 30 Tablet 11 ??? escitalopram (LEXAPRO) 20 MG Tablet Take 1 Tablet by mouth daily. 90 Tablet 1 ??? losartan (COZAAR) 50 MG Tablet Take 1 Tablet by mouth daily. 90 Tablet 3 ??? montelukast (SINGULAIR) 10 MG Tablet Take 10 mg by mouth daily. 3 ??? naloxone HCl (Narcan) 4 MG/0.1ML Liquid One spray in nostril Q 2-3 minutes until pt improves oruntil emergency units arrive to assume care. 2 Each 2 ??? omeprazole (PriLOSEC) 40 MG CAPSULE DELAYED RELEASE Take 1 Capsule by mouth daily. 90 Capsule 3 No current facility-administered medications for this visit. PMS/H: Past Medical History Positives Diagnosis Date ??? Anxiety ??? Broken arm 12/2015 lower left ??? Broken leg 2016 Right leg ??? Chronic sinusitis ??? Degenerative lumbar disc ??? Depression ??? High cholesterol ??? Hypertension Past Surgical History: Procedure Laterality Date ??? ANESTH,LOWER ARM SURGERY 2015 To repair break /left arm ??? ANESTH,LOWER LEG,OPEN SURGERY 2016 Right leg close to ankle ??? ECTOPIC SURGERY 2005 ??? HYSTERECTOMY Total hysterectomy ??? LAPAROSCOPY laparoscopic exploratory abdominal surgery ??? SALPINGO-OOPHORECTOMY SOCIAL: Social History Socioeconomic History ??? Marital status: Spouse name: Not on file ??? Number of children: 3 ??? Years of education: Not on file ??? Highest education level: Not on file Occupational History ??? 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 Smoking status: Never Smoker [...] Social History Narrative ??? Not on file FAMILY HX: Family History Problem Relation Age of Onset ??? Breast Cancer Mother ??? Osteoporosis Mother ??? Diabetes Father ??? Thyroid Disease Sister ??? Osteoporosis Maternal Grandmother ??? Alzheimer's Disease Maternal Grandmother ??? Dementia Maternal Grandmother ??? Stroke Maternal Grandmother ??? Heart Attack Maternal Grandfather ??? Alcohol Abuse Maternal Grandfather ??? Diabetes Paternal Grandmother ??? Schizophrenia Paternal Grandfather ??? Paranoid behavior Paternal Grandfather VITAL SIGNS: Vitals: 05/08/22 1006 BP: 142/90 Pulse: 56 Resp: 22 Temp: 98.4 ??F (36.9 ??C) SpO2: 98% Weight: 229 lb (103.9 kg) Height: 5' 2 (1.575 m) GENERAL EXAM: GENERAL: Well developed, well nourished, morbidly obese, in no acute distress. AAO x3. Cooperative. HEENT: Normocephalic. PERRLA. Nonicteric. NECK: Supple/ non tender/ full ROM LYMPH NODES: No adenopathy. CARDIOVASCULAR: RRR/ S1S2/ No m/g/c/r. PULMONARY: Respirations easy and regular. Breath sounds clear bilaterally. No rhonchi/ rales/ wheezes. GI: Abdomen soft, nondistended. Right upper quadrant tenderness positive Pitts's. Mild epigastric tenderness. No other areas of tenderness. No rebound, guarding or masses. No hepatosplenomegaly. Bowel sounds normoactive. MUSCULOSKELETAL: No CVA tenderness. Normal gait and movement of extremities. No tenderness/ swelling/ crepitus. SKIN: General-warm, pink and dry. No rashes/ lesions. PSYCHIATRIC: Euthymic. Affect congruent with mood. Normal thought process. Medications/ treatment plan reviewed. Risks and benefits discussed. Expressed understanding. Patient Instructions Use omeprazole 40 mg 1 tab daily - be sure to take 30 minutes before a meal containing protein May use famotidine 20 mg 1 tab am and pm or Tums for breakthrough Avoid eating 3-4 hours prior to bed May need to elevate head of bed approximately 45??. Avoid frequent/chronic use of NSAIDs such as ibuprofen/naproxen May use acetaminophen/ Tylenol arthritis as needed. Avoid fried/ greasy/ spicy foods/ red sauces/ citrus especially in the evening Reduce caffeine/ carbonated beverages/alcohol/tobacco/ marijuana May use over the counter Imodium 2 tabs after first loose stool then one after each loose stool up to max 8 tabs/ 24 hours or Imodium 1 tab 30-60 minutes before meals and at bedtime Generic Benefiber begin with 2 tbsp once daily and may increase to 2 x a day to form stools Probiotics daily-highest colony count you can afford to purchase on a routine basis. [place] diet Stop caffeine/ carbonated beverages/ artificial sweeteners/ alcohol/ tobacco and marijuana Increase water at least 64 ounces per day Await stool studies and colonoscopy Stool specimens must be WATERY to be tested. Please keep a detailed food journal- review to look for a pattern foods which may be irritating Avoid all dairy and wheat/ flour based foods for at least 4-6 weeks May resume dairy after 4-6 weeks and if diarrhea/ abdominal pain/ bloating occur try using over thecounter Lactaid as directed- if symptoms persist avoid dairy. After an addition 4-6 weeks, may try adding wheat/ flour based foods- if problems recur, stop and avoid such foods If you had lab work or other testing ordered at this visit, we will contact you regarding the results once all results have been received and reviewed. You may be able to see results in your my chart as they come in, please remember the computer is only given parameters for what is ???normal?? or ???abnormal?? . The significance of anything in the ???abnormal?? range is based on the remainingtest results. Again we will contact you when we have received and reviewed all the results. If you were advised to have a procedure and have not heard from our office or the appropriate department within 2 weeks please call to schedule. Please check in with registration at least 15 minutes prior to all appointments. Please schedule follow-up in near future to discuss any concerns that were not addressed fully at today's office visit. To continue to provide excellent patient care, you may receive a survey regarding your visit today.To help us serve you better, please complete and return. These surveys are completely anonymous. If you have any concerns/ questions regarding today's visit, please call. If you experience any new or worsening symptoms, please call or go to the emergency department. [employer] Current Therapy 2020 (pp. 213-216). [place], [place]: [employer]. > Gastroesophageal Reflux Disease, Adult Gastroesophageal reflux (ROSITA) happens when acid from the stomach flows up into the tube that connects the mouth and the stomach (esophagus). Normally, food travels down the esophagus and stays in thestomach to be digested. However, when a person has ROSITA, food and stomach acid sometimes move back up into the esophagus. If this becomes a more serious problem, the person may be diagnosed with a disease called gastroesophageal reflux disease (GERD). GERD occurs when the reflux: ?? Happens often. ?? Causes frequent or severe symptoms. ?? Causes problems such as damage to the esophagus. When stomach acid comes in contact with the esophagus, the acid may cause inflammation in the esophagus. Over time, GERD may create small holes (ulcers) in the lining of the esophagus. What are the causes? This condition is caused by a problem with the muscle between the esophagus and the stomach (lower esophageal sphincter, or LES). Normally, the LES muscle closes after food passes through the esophagus to the stomach. When the LES is weakened or abnormal, it does not close properly, and that allowsfood and stomach acid to go back up into the esophagus. The LES can be weakened by certain dietary substances, medicines, and medical conditions, including: ?? Tobacco use. ?? . ?? Having a hiatal hernia. ?? Alcohol use. ?? Certain foods and beverages, such as coffee, chocolate, onions, and peppermint. What increases the risk? You are more likely to develop this condition if you: ?? Have an increased body weight. ?? Have a connective tissue disorder. ?? Take NSAIDs, such as ibuprofen. What are the signs or symptoms? Symptoms of this condition include: ?? Heartburn. ?? Difficult or painful swallowing and the feeling of having a lump in the throat. ?? A bitter taste in the mouth. ?? Bad breath and having a large amount of saliva. ?? Having an upset or bloated stomach and belching. ?? Chest pain. Different conditions can cause chest pain. Make sure you see your health care provider if you experience chest pain. ?? Shortness of breath or wheezing. ?? Ongoing (chronic) cough or a nighttime cough. ?? Wearing away of tooth enamel. ?? Weight loss. How is this diagnosed? This condition may be diagnosed based on a medical history and a physical exam. To determine if youhave mild or severe GERD, your health care provider may also monitor how you respond to treatment. You may also have tests, including: ?? A test to examine your stomach and esophagus with a small camera (endoscopy). ?? A test that measures the acidity level in your esophagus. ?? A test that measures how much pressure is on your esophagus. ?? A barium swallow or modified barium swallow test to show the shape, size, and functioning of your esophagus. How is this treated? Treatment for this condition may vary depending on how severe your symptoms are. Your health care provider may recommend: ?? Changes to your diet. ?? Medicine. ?? Surgery. The goal of treatment is to help relieve your symptoms and to prevent complications. Follow these instructions at home: Eating and drinking ?? Follow a diet as recommended by your health care provider. This may involve avoiding foods and drinks such as: ? Coffee and tea, with or without caffeine. ? Drinks that contain alcohol. ? Energy drinks and sports drinks. ? Carbonated drinks or sodas. ? Chocolate and cocoa. ? Peppermint and mint flavorings. ? Garlic and onions. ? Horseradish. ? Spicy and acidic foods, including peppers, chili powder, lehman powder, vinegar, hot sauces, and barbecue sauce. ? [place] fruit juices and citrus fruits, such as oranges, gigi, and limes. ? Tomato-based foods, such as red sauce, chili, salsa, and pizza with red sauce. ? Fried and fatty foods, such as donuts, malawian fries, potato chips, and high- fat dressings. ? High-fat meats, such as hot dogs and fatty cuts of red and white meats, such as rib eye steak, sausage, ham, and quinn. ? High-fat dairy items, such as whole milk, butter, and cream cheese. ?? Eat small, frequent meals instead of large meals. ?? Avoid drinking large amounts of liquid with your meals. ?? Avoid eating meals during the 2-3 hours before bedtime. ?? Avoid lying down right after you eat. ?? Do not exercise right after you eat. Lifestyle ?? Do not use any products that contain nicotine or tobacco. These products include cigarettes, chewing tobacco, and vaping devices, such as e-cigarettes. If you need help quitting, ask your health care provider. ?? Try to reduce your stress by using methods such as yoga or meditation. If you need help reducingstress, ask your health care provider. ?? If you are overweight, reduce your weight to an amount that is healthy for you. Ask your health care provider for guidance about a safe weight loss goal. General instructions ?? Pay attention to any changes in your symptoms. ?? Take nhts-xqg-kfmkyjw and prescription medicines only as told by your health care provider. Do not take aspirin, ibuprofen, or other NSAIDs unless your health care provider told you to take these medicines. ?? Wear loose-fitting clothing. Do not wear anything tight around your waist that causes pressure on your abdomen. ?? Raise (elevate) the head of your bed about 6 inches (15 cm). You can use a wedge to do this. ?? Avoid bending over if this makes your symptoms worse. ?? Keep all follow-up visits. This is important. Contact a health care provider if: ?? You have: ? New symptoms. ? Unexplained weight loss. ? Difficulty swallowing or it hurts to swallow. ? Wheezing or a persistent cough. ? A hoarse voice. ?? Your symptoms do not improve with treatment. Get help right away if: ?? You have sudden pain in your arms, neck, jaw, teeth, or back. ?? You suddenly feel sweaty, dizzy, or light-headed. ?? You have chest pain or shortness of breath. ?? You vomit and the vomit is green, yellow, or black, or it looks like blood or coffee grounds. ?? You faint. ?? You have stool that is red, bloody, or black. ?? You cannot swallow, drink, or eat. These symptoms may represent a serious problem that is an emergency. Do not wait to see if the symptoms will go away. Get medical help right away. Call your local emergency services (911 in the [place] Do not drive yourself to the hospital. Summary ?? Gastroesophageal reflux happens when acid from the stomach flows up into the esophagus. GERD is a disease in which the reflux happens often, causes frequent or severe symptoms, or causes problems such as damage to the esophagus. ?? Treatment for this condition may vary depending on how severe your symptoms are. Your health care provider may recommend diet and lifestyle changes, medicine, or surgery. ?? Contact a health care provider if you have new or worsening symptoms. ?? Take xpci-ejf-ooiezrr and prescription medicines only as told by your health care provider. Do not take aspirin, ibuprofen, or other NSAIDs unless your health care provider told you to do so. ?? Keep all follow-up visits as told by your health care provider. This is important. This information is not intended to replace advice given to you by your health care provider. Make sure you discuss any questions you have with your health care provider. Document Revised: 2021 Document Reviewed: 2021 [employer] Patient Education ?? 2021 [employer] Diverticulosis Diverticulosis is a condition that develops when small pouches (diverticula) form in the wall of the large intestine (colon). The colon is where water is absorbed and stool (feces) is formed. The pouches form when the inside layer of the colon pushes through weak spots in the outer layers of the colon. You may have a few pouches or many of them. The pouches usually do not cause problems unless they become inflamed or infected. When this happens, the condition is called diverticulitis. What are the causes? The cause of this condition is not known. What increases the risk? The following factors may make you more likely to develop this condition: ?? Being older than age 60. Your risk for this condition increases with age. Diverticulosis is rareamong people younger than age 30. By age 80, many people have it. ?? Eating a low-fiber diet. ?? Having frequent constipation. ?? Being overweight. ?? Not getting enough exercise. ?? Smoking. ?? Taking emui-odq-jdksyug pain medicines, like aspirin and ibuprofen. ?? Having a family history of diverticulosis. What are the signs or symptoms? In most people, there are no symptoms of this condition. If you do have symptoms, they may include: ?? Bloating. ?? Cramps in the abdomen. ?? Constipation or diarrhea. ?? Pain in the lower left side of the abdomen. How is this diagnosed? Because diverticulosis usually has no symptoms, it is most often diagnosed during an exam for othercolon problems. The condition may be diagnosed by: ?? Using a flexible scope to examine the colon (colonoscopy). ?? Taking an X-ray of the colon after dye has been put into the colon (barium enema). ?? Having a CT scan. How is this treated? You may not need treatment for this condition. Your health care provider may recommend treatment toprevent problems. You may need treatment if you have symptoms or if you previously had diverticulitis. Treatment may include: ?? Eating a high-fiber diet. ?? Taking a fiber supplement. ?? Taking a live bacteria supplement (probiotic). ?? Taking medicine to relax your colon. Follow these instructions at home: Medicines ?? Take jmcr-crh-npgwkrd and prescription medicines only as told by your health care provider. ?? If told by your health care provider, take a fiber supplement or probiotic. Constipation prevention Your condition may cause constipation. To prevent or treat constipation, you may need to: ?? Drink enough fluid to keep your urine pale yellow. ?? Take cnog-qba-nfdqfba or prescription medicines. ?? Eat foods that are high in fiber, such as beans, whole grains, and fresh fruits and vegetables. ?? Limit foods that are high in fat and processed sugars, such as fried or sweet foods. General instructions ?? Try not to strain when you have a bowel movement. ?? Keep all follow-up visits as told by your health care provider. This is important. Contact a health care provider if you: ?? Have pain in your abdomen. ?? Have bloating. ?? Have cramps. ?? Have not had a bowel movement in 3 days. Get help right away if: ?? Your pain gets worse. ?? Your bloating becomes very bad. ?? You have a fever or chills, and your symptoms suddenly get worse. ?? You vomit. ?? You have bowel movements that are bloody or black. ?? You have bleeding from your rectum. Summary ?? Diverticulosis is a condition that develops when small pouches (diverticula) form in the wall ofthe large intestine (colon). ?? You may have a few pouches or many of them. ?? This condition is most often diagnosed during an exam for other colon problems. ?? Treatment may include increasing the fiber in your diet, taking supplements, or taking medicines. This information is not intended to replace advice given to you by your health care provider. Make sure you discuss any questions you have with your health care provider. Document Revised: 04/27/2020 Document Reviewed: 04/27/2020 [employer] Patient Education ?? 2021 [employer] Diverticulitis Diverticulitis is infection or inflammation of small pouches (diverticula) in the colon that form due to a condition called diverticulosis. Diverticula can trap stool (feces) and bacteria, causing infection and inflammation. Diverticulitis may cause severe stomach pain and diarrhea. It may lead to tissue damage in the colon that causes bleeding or blockage. The diverticula may also burst (rupture) and cause infected stool to enter other areas of the abdomen. What are the causes? This condition is caused by stool becoming trapped in the diverticula, which allows bacteria to grow in the diverticula. This leads to inflammation and infection. What increases the risk? You are more likely to develop this condition if you have diverticulosis. The risk increases if you: ?? Are overweight or obese. ?? Do not get enough exercise. ?? Drink alcohol. ?? Use tobacco products. ?? Eat a diet that has a lot of red meat such as beef, pork, or hooks. ?? Eat a diet that does not include enough fiber. High-fiber foods include fruits, vegetables, beans, nuts, and whole grains. ?? Are over 40 years of age. What are the signs or symptoms? Symptoms of this condition may include: ?? Pain and tenderness in the abdomen. The pain is normally located on the left side of the abdomen, but it may occur in other areas. ?? Fever and chills. ?? Nausea. ?? Vomiting. ?? Cramping. ?? Bloating. ?? Changes in bowel routines. ?? Blood in your stool. How is this diagnosed? This condition is diagnosed based on: ?? Your medical history. ?? A physical exam. ?? Tests to make sure there is nothing else causing your condition. These tests may include: ? Blood tests. ? Urine tests. ? CT scan of the abdomen. How is this treated? Most cases of this condition are mild and can be treated at home. Treatment may include: ?? Taking fvif-ymk-kygeqat pain medicines. ?? Following a clear liquid diet. ?? Taking antibiotic medicines by mouth. ?? Resting. More severe cases may need to be treated at a hospital. Treatment may include: ?? Not eating or drinking. ?? Taking prescription pain medicine. ?? Receiving antibiotic medicines through an IV. ?? Receiving fluids and nutrition through an IV. ?? Surgery. When your condition is under control, your health care provider may recommend that you have a colonoscopy. This is an exam to look at the entire large intestine. During the exam, a lubricated, bendable tube is inserted into the anus and then passed into the rectum, colon, and other parts of the large intestine. A colonoscopy can show how severe your diverticula are and whether something else may be causing your symptoms. Follow these instructions at home: Medicines ?? Take rqka-fwu-lefatre and prescription medicines only as told by your health care provider. These include fiber supplements, probiotics, and stool softeners. ?? If you were prescribed an antibiotic medicine, take it as told by your health care provider. Do not stop taking the antibiotic even if you start to feel better. ?? Ask your health care provider if the medicine prescribed to you requires you to avoid driving orusing machinery. Eating and drinking ?? Follow a full liquid diet or another diet as directed by your health care provider. ?? After your symptoms improve, your health care provider may tell you to change your diet. He or she may recommend that you eat a diet that contains at least 25 grams (25 g) of fiber daily. Fiber makes it easier to pass stool. Healthy sources of fiber include: ? Berries. One cup contains 4-8 grams of fiber. ? Beans or lentils. One-half cup contains 5-8 grams of fiber. ? Green vegetables. One cup contains 4 grams of fiber. ?? Avoid eating red meat. General instructions ?? Do not use any products that contain nicotine or tobacco, such as cigarettes, e-cigarettes, and chewing tobacco. If you need help quitting, ask your health care provider. ?? Exercise for at least 30 minutes, 3 times each week. You should exercise hard enough to raise your heart rate and break a sweat. ?? Keep all follow-up visits as told by your health care provider. This is important. You may need to have a colonoscopy. Contact a health care provider if: ?? Your pain does not improve. ?? Your bowel movements do not return to normal. Get help right away if: ?? Your pain gets worse. ?? Your symptoms do not get better with treatment. ?? Your symptoms suddenly get worse. ?? You have a fever. ?? You vomit more than one time. ?? You have stools that are bloody, black, or tarry. Summary ?? Diverticulitis is infection or inflammation of small pouches (diverticula) in the colon that form due to a condition called diverticulosis. Diverticula can trap stool (feces) and bacteria, causinginfection and inflammation. ?? You are at higher risk for this condition if you have diverticulosis and you eat a diet that does not include enough fiber. ?? Most cases of this condition are mild and can be treated at home. More severe cases may need to be treated at a hospital. ?? When your condition is under control, your health care provider may recommend that you have an exam called a colonoscopy. This exam can show how severe your diverticula are and whether something else may be causing your symptoms. ?? Keep all follow-up visits as told by your health care provider. This is important. This information is not intended to replace advice given to you by your health care provider. Make sure you discuss any questions you have with your health care provider. Document Revised: 07/10/2020 Document Reviewed: 07/10/2020 [employer] Patient Education ?? 2021 [employer] documented in this encounter Plan of Treatment Upcoming Encounters Date Type Department Care Team (Late st Contact Info) Description 11/02/2024 8:15 AM ENVIRONMENTAL INTERN Office Visit [facility] [address] [place] [address] Dakota Fabian, THOM, DELIVERY TABLE OPERATOR [address] [address] 11/26/2024 11:30 AM ENVIRONMENTAL INTERN Office Visit [facility] [address] [place] [address] Maggie Tolentino, PAC [address] [place] [address] Scheduled Orders Name Type Priority Associated Diagnoses Orde r Schedule GASTRO PROCEDURE Procedures Routine Gastroesophageal reflux disease, unspecified whether esophagitis present Expected: 05/22/2022 (Approximate), Expires: 11/08/2022 GASTRO PROCEDURE Procedures Routine Diarrhea, unspecified type Expected: 05/22/2022 (Approximate), Expires: 11/08/2022 CALPROTECTIN, FECAL, DAVEY CALPR Lab Routine Diarrhea, unspecified type Expected: 09/20/2022, Expires: 11/08/2022 PANCREATIC ELASTASE, FECES, DAVEY ELASF Lab Routine Diarrhea, unspecified type Expected: 09/20/2022, Expires: 11/08/2022 STOOL, WBC LACTOFERRIN Lab Routine Diarrhea, unspecified type Expected: 08/07/2022, Expires: 11/04/2022 CULTURE, STOOL Microbiology Routine Diarrhea, unspecified type Expected: 08/07/2022, Expires: 11/08/2022 SARS-COV-2 BY MOLECULAR Microbiology Routine Encounter for preprocedure screening laboratory testing for COVID-19 Expected: 05/22/2022, Expires: 11/08/2022 documented as of this encounter Results * SARS-COV-2 BY MOLECULAR (06/24/2022 10:35 AM CDT) SARSCOV2 NOT DETECTED (Referenc e Range for this test is Not Detected) [facility] MENSAH ID NOW 06/24/2022 11:39 AM CDT [facility] Comment:This test was perfor med by a MOLECULAR, NON-PCR method Other NASOPHARYNGEAL STRUCTURE / Unknown Non-Phlebotomy Collection / Unknown 06/24/2022 10:35 AM CDT 06/24/2022 10:41 AM CDT Narrative [facility] - 06/24/2022 11:39 AM CDT This test has been authorized by the FDA under an Emergency Use Authorization (EUA) only. Negative results should be treated as presumptive and, if inconsistent with clinical signs and symptoms or necessary for patient management, the patient should be tested with an alternative molecular assay. Negative results do not preclude SARS-CoV-2 infection or any other respiratory pathogen. Additional information for Clinicians can be found at: https://www.fda.gov/media/897794/download Additional information for Patients can be found at: https://www.fda.gov/media/290827/download Elvia Molina PAC MICROBIOLOGY - GENERAL OR DERABLES Final Result [facility] [address] [place] [address] * NM HEPATOBILIARY WITH PHARM (05/21/2022 11:51 [...] 4:56 PM - Electronically signed by ??Jackson Barrera M.D. JA: MARISA D: ??05/21/2022 4:56 PM T: ??05/21/2022 4:56 PM Report ID: [id number] Reading Location: ??[id number] Procedure Note Jackson Barrera MD - 05/21/2022 [...] 4:56 PM - Electronically signed by Jackson Barrera M.D. JA: MARISA Report ID: [id number] Reading Location: [id number] IMPRESSION: No scintigraphic evidence of cystic duct obstruction. Normal contractile response of the gallbladder to fatty meal stimulation. Elvia Molina PAC IMG NM ORDERABLES Final R esult documented in this encounter Visit Diagnoses Diagnosis Gastroesophageal reflux disease, unspecified whether esophagitis present- Primary Diarrhea, unspecified type Nausea and vomiting, unspecified vomiting type Upper abdominal pain Abdominal pain, other specified site Encounter for preprocedure screening laboratory testing for COVID-19 Nausea and vomiting, unspecified vomiting type Upper abdominal pain Abdominal pain, other specified site documented in this encounter Additional Health Concerns Infection Onset Date Last Indicated Resolved Time MRSA 03/30/2020 03/30/2020 Assessment Noted Time PHQ-9 Depression Total Score: 0 12/15/19 21 8:53 AM ENVIRONMENTAL INTERN documented as of this encounter Care Teams Forester Aide Relationship Specialty Start Date End Date John Méndez MD PCP - General Family Medicine 09/28/19 04/26/24 documented as of this encounter
--- OUTSIDE RECORDS SUMMARY | 2024-10-20 03:53 | XMS_ITS | Encounter Summary ---
Author Organization [facility] Address [address] 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 Requested Prescriptions Pending Prescriptions Disp Refills acetaminophen-codeine (TYLENOL #3) 300-30 MG Tablet [Pharmacy Med Name: ACETAMINOPHEN-COD #3 TABLET] 90 Tablet 0 Sig: TAKE 1 TABLET BY MOUTH THREE TIMES A DAY NEEDED FOR PAIN DNF 02/[address] Not Delegated - Opioid Combinations Protocol Failed - 03/18/2022 9:38 AM Failed - This refill cannot be delegated Passed - Visit with relevant provider in past 12 months or upcoming 90 days Recent Visits Date Type Provider Dept 12/25/21 Office Visit John Méndez MD [facility] 05/01/21 Office Visit John Méndez MD [facility] Showing recent visits within past 365 days and meeting all other requirements Future Appointments Date Type Provider Dept 04/29/22 Appointment John Méndez MD [facility] Showing future appointments within next 90 days and meeting all other requirements documented in this encounter Plan of Treatment Upcoming Encounters Date Type Department Care Team (Late st Contact Info) Description 11/02/2024 8:15 AM TELEVISION REPAIR TEACHER Office Visit [facility] [address] [place] [address] Dakota Fabian, PROFESSOR OF BIOCHEMISTRY, PASTER HAT LINING [address] [address] 11/26/2024 11:30 AM TELEVISION REPAIR TEACHER Office Visit [facility] [address] [place] [address] Maggie Tolentino, PAC [address] [place] [address] documented as of this encounter Visit Diagnoses Diagnosis Sacroiliac joint dysfunction of both sides Disorders of sacrum Degenerative lumbar disc Degeneration of lumbar or lumbosacral intervertebral disc documented in this encounter Additional Health Concerns Infection Onset Date Last Indicated Resolved Time MRSA 03/30/2020 03/30/2020 COVID - 19 09/11/2024 09/11/2024 09/11/2024 7:21 PM TELEVISION REPAIR TEACHER Assessment Noted Time PHQ-9 Depression Total Score: 0 12/15/19 8:53 AM TELEVISION REPAIR TEACHER documented as of this encounter Care Teams Studio Hand Relationship Specialty Start Date End Date John Méndez MD PCP - General Family Medicine 09/28/19 04/26/24 Dakota Fabian APRN, PASTER HAT LINING [address] [address] PCP - General Advanced Practice Nurse 04/27/24 documented as of this encounter
--- OUTSIDE RECORDS SUMMARY | 2024-10-20 03:53 | XMS_ITS | Encounter Summary ---
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 Not on file Not [...] st Contact Info) Description 11/02/2024 8:15 AM MATERIAL MOVER Office Visit [facility] - Family Medicine [facility] [address] [place] [id number] Dakota Fabian, STREAMING MEDIA SPECIALIST, VETERINARY MICROBIOLOGIST #[address] [address] 11/26/2024 11:30 AM MATERIAL MOVER Office Visit [facility] - [facility] [place] [address] [place] [address] Maggie Tolentino, [facility] [address] [place] [address] documented as of this encounter Visit Diagnoses Not on filedocumented in this encounter Additional Health Concerns Infection Onset Date Last Indicated Resolved Time MRSA 03/30/2020 03/30/2020 Assessment Noted Time PHQ-9 Depression Total Score: 0 12/15/19 21 8:53 AM MATERIAL MOVER documented as of this encounter Care Teams Tumbling And Rolling Supervisor Relationship Specialty Start Date End Date John Méndez MD PCP - General Family Medicine 09/28/19 04/26/24 documented as of this encounter
--- OUTSIDE RECORDS SUMMARY | 2024-10-20 03:53 | XMS_ITS | Encounter Summary ---
Author Organization [facility] Address [address] [facility] 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 No / Unsure 10/09/2021 7:12 AM TRANSCRIPTIONIST documented as of this encounter Miscellaneous Notes * Telephone Encounter - Antoinette Arora RN - 10/23/2021 2:04 PM CST PDMP 09/23/21 Medication failed the protocol, provider to review and approve the medication order if appropriate. Requested Prescriptions Pending Prescriptions Disp Refills acetaminophen-codeine (TYLENOL #3) 300-30 MG Tablet [Pharmacy Med Name: ACETAMINOPHEN-COD #3 TABLET] 90 Tablet 0 Sig: TAKE 1 TABLET BY MOUTH 3 TIMES DAILY NEEDED FOR MILD OR MORE SEVERE PAIN. Not Delegated - Opioid Combinations Protocol Failed - 10/23/2021 2:04 PM Failed - This refill cannot be [...] [facility] Show[facility] recent visits within past 365 days and meeting all other requirements Future Appointments No visits were found meeting these conditions. Showing future appointments within next 90 days and meeting all other requirements SCRIPTIONIST documented in this encounter Plan of Treatment Upcoming Encounters Date Type Department Care Team (Late st Contact Info) Description 11/02/2024 8:15 AM TRANSCRIPTIONIST Office Visit [facility] - [facility] - [place] [address] [place] [address] Dakota Fabian, STIFF STRAW HAT WASHER, FILTER CLEANER #[address] [address] 11/26/2024 11:30 AM TRANSCRIPTIONIST Office Visit [facility] - Family [facility] [address] [place] [address] Maggie Tolentino PAC [address] [facility] [address] documented as of this encounter Visit Diagnoses Diagnosis Sacroiliac joint dysfunction of both sides Disorders of sacrum Degenerative lumbar disc Degeneration of lumbar or lumbosacral intervertebral disc documented in this encounter Additional Health Concerns Infection Onset Date Last Indicated Resolved Time MRSA 03/30/2020 03/30/2020 COVID - 19 09/11/2024 09/11/2024 09/11/2024 7:21 PM TRANSCRIPTIONIST Assessment Noted Time PHQ-9 Depression Total Score: 0 12/15/19 21 8:53 AM TRANSCRIPTIONIST documented as of this encounter Care Teams Projection Welding Machine Operator Relationship Specialty Start Date End Date John Méndez MD PCP - General Family Medicine 09/28/19 04/26/24 Dakota Fabian APRN, FILTER CLEANER [address] [address] PCP - General Advanced Practice Nurse 04/27/24 documented as of this encounter
--- OUTSIDE RECORDS SUMMARY | 2024-10-20 03:53 | XMS_ITS | Encounter Summary ---
Author Organization [facility] Address [address] 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 No / Unsure 03/22/2022 3:20 PM CDT documented as of this encounter Last Filed Vital Signs Vital Sign Reading Time Taken Comments Blood Pressure 129/90 03/22/2022 8:00 PM CDT Pulse 79 03/22/2022 8:15 PM CDT Temperature 36.3 ??C (97.4 ??F) 03/22/2022 3:20 PM CD T Respiratory Rate 19 03/22/2022 8:15 PM CDT Oxygen Saturation 99% 03/22/2022 8:15 PM CDT Inhaled Oxygen Concentration - - Weight 111.1 kg (245 lb) 03/22/2022 3:20 PM CDT Height 160 cm (5' 3 ) 03/22/2022 3:20 PM CDT Body Mass Index 43.4 03/22/2022 3:20 PM CDT documented in this encounter Discharge Instructions * Attachments The following attachments cannot be sent through Care Everywhere. * Abdominal Pain Adult (Georgian) documented in this encounter Medications at Time of Discharge acetaminophen-code ine (TYLENOL #3) 300-30 MG TabletIndications: Sacroiliac joint dysfunction of both sides,Degenerative lumbar disc TAKE 1 TABLET BY MOUTH THREE TIMES A DAY NEEDED FOR PAIN DNF 02/[address] 90 Tablet 03/22/2022 2 albuterol (PROVENTIL/VENTOLI N) 1.25 MG/3ML Nebulizer SolnIndications:Wh eezing take 3 mL by inhalation every 4 hours as needed for Wheezing or Cough. 90 Vial 3 06/09/2020 2 albuterol 108 (90 Base) MCG/ACT Aerosol SolutionIndication s:Wheezing,Broncho spasm, acute TAKE 2 PUFFS BY INHALATION EVERY 4 HOURS NEEDED FOR WHEEZING OR COUGH. 17 Inhaler 2 08/25/2020 2 amLODIPine (NORVASC) 10 MG TabletIndications: Primary hypertension Take 1 Tablet by mouth daily. 90 Tablet 2 12/25/2021 2 atorvastatin (LIPITOR) 20 MG TabletIndications: High cholesterol Take 1 Tablet by mouth every evening. 90 Tablet 3 12/25/2021 2 cetirizine (ZyrTEC) 10 MG TabletIndications: Chronic sinusitis, unspecified location TAKE 1 TABLET BY MOUTH EVERY DAY 30 Tablet 11 06/28/2021 2 escitalopram (LEXAPRO) 20 MG Tablet TAKE 1 TABLET BY MOUTH EVERY DAY 90 Tablet 1 08/22/2021 2 montelukast (SINGULAIR) 10 MG TabletIndications: Chronic sinusitis, unspecified location Take 10 mg by mouth daily. 3 06/14/2019 2 naloxone HCl (Narcan) 4 MG/0.1ML Liquid One spray in nostril Q 2-3 minutes until pt improves or until emergency units arrive to assume care. 2 Each 2 12/25/2021 2 tiZANidine (ZANAFLEX) 2 MG Capsule Take 2 mg by mouth nightly. 2 documented as of this encounter ED Notes * Allen Dale RN - 03/22/2022 8:22 PM CDT Patient discharged. Discharge instructions and patient educational material reviewed with patient; questions and concerns addressed; patient verbalizes understanding, using teach back. Patient was given 0 prescriptions. Patient was informed no drinking alcohol, driving or operating heavy machinery while taking narcotics or muscle relaxants. Patient discharged per ambulatory mode with as responsible democrat. SL D/C'ed with Yogesh cath intact. * Allen Dale RN - 03/22/2022 8:00 PM CDT Patient is resting in room with call light at bedside. Patient informed about wait time and verbalizes understanding. Patient denies needs at this time and verbalizes understanding that RN will complete hourly rounding. * Allen Dale RN - 03/22/2022 7:10 PM CDT Pt transferring to CT via wheel chair with no distress noted. * Allen Dale RN - 03/22/2022 7:03 PM CDT Pt medicated per provider orders. Pt educated on intended effects and side effects of medication and verbalized understanding, able to provide teach back of education. * Allen Dale RN - 03/22/2022 6:42 PM CDT Pt report received from MITESH Torres. Pt is sitting up in bed, Pt is A&Ox4, pt appears to be anxious, ERP aware. * Melissa Lyn RN - 03/22/2022 6:35 PM CDT Pt medicated per provider orders. Pt educated on intended effects and side effects of medication and verbalized understanding, able to provide teach back of education. * Melissa Lyn RN - 03/22/2022 6:26 PM CDT Pt medicated per provider orders. Pt educated on intended effects and side effects of medication and verbalized understanding, able to provide teach back of education. Patient at beside, calllight within reach. Patient denies any further needs at this time. * Eliu Del Toro MD - 03/22/2022 6:13 PM CDT Chief Complaint Patient presents with ??? Abdominal Pain Patient is a 46-year-old female brought to emergency room by her with abdominal pain as well as vomiting and diarrhea. Patient states she has been having diarrhea off and on for the past 2-3 weeks. She is attributes this to eating wrong foods particularly those with seeds and nuts. She has also had vomiting x2 today. She developed pain early this a.m. which has continued throughout the day. States his very intense sharp pain in the right side of her abdomen. She has had history of hysterectomy but still has her appendix and gallbladder. She denies any other type of food intolerances such as the fats and grease. She states she has had some colon problems in the past and was advised have a colonoscopy be she has but this off. No current facility-administered medications for this encounter. Current Outpatient Medications Medication Sig Dispense Refill ??? acetaminophen-codeine (TYLENOL #3) 300-30 MG Tablet TAKE 1 TABLET BY MOUTH THREE TIMES A DAY ASNEEDED FOR PAIN DNF 02/[address] 90 Tablet 0 ??? albuterol (PROVENTIL/VENTOLIN) 1.25 [...] mouth every evening. 90 Tablet 3 ??? cetirizine (ZyrTEC) 10 MG Tablet TAKE 1 TABLET BY MOUTH EVERY DAY 30 Tablet 11 ??? escitalopram (LEXAPRO) 20 MG Tablet TAKE 1 TABLET BY MOUTH EVERY DAY 90 Tablet 1 ??? montelukast (SINGULAIR) 10 MG Tablet Take 10 mg by mouth daily. 3 ??? naloxone HCl (Narcan) 4 MG/0.1ML Liquid One spray in nostril Q 2-3 minutes until pt improves oruntil emergency units arrive to assume care. 2 Each 2 ??? tiZANidine (ZANAFLEX) 2 MG Capsule Take 2 mg by mouth nightly. Allergies Allergen Reactions ??? Penicillins Rash and Itching Reaction: Rash, , Past Medical History Positives Diagnosis Date ??? Anxiety ??? Broken arm 12/2015 lower left ??? Broken leg 2017 Right leg ??? Chronic sinusitis ??? Degenerative lumbar disc ??? Depression ??? High cholesterol ??? Hypertension Past Surgical History: Procedure Laterality Date ??? ANESTH,LOWER ARM SURGERY 2016 To repair break /left arm ??? ANESTH,LOWER LEG,OPEN SURGERY 2017 Right leg close to ankle ??? ECTOPIC SURGERY 2006 ??? HYSTERECTOMY Total hysterectomy ??? LAPAROSCOPY laparoscopic exploratory abdominal surgery ??? SALPINGO-OOPHORECTOMY Social History Socioeconomic History ??? Marital status: Spouse name: Not on file ??? Number of children: 3 ??? Years of education: Not on file ??? Highest education level: Not on file Occupational History ??? 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 Smoking status: Never Smoker [...] Narrative ??? Not on file BP (!) 174/106 Pulse 68 Temp 97.4 ??F (36.3 ??C) (Temporal) Resp 20 Ht 5' 3 (1.6 m) Wt 245 lb (111.1 kg) LMP (LMP Unknown) Comment: full SpO2 98% BMI 43.40 kg/m?? Review of Systems Constitutional: Negative for activity change, appetite change, chills and fever. HENT: Negative for congestion, ear pain, rhinorrhea, sore throat and trouble swallowing. Eyes: Negative for pain and visual disturbance. Respiratory: Negative for cough, shortness of breath and wheezing. Cardiovascular: Negative for chest pain. Gastrointestinal: Positive for abdominal pain, diarrhea, nausea and vomiting. Genitourinary: Negative for difficulty urinating and dysuria. Musculoskeletal: Negative for arthralgias and back pain. Skin: Negative for pallor. Neurological: Negative for headaches. Hematological: Negative for adenopathy. Psychiatric/Behavioral: Negative for confusion. All other systems reviewed and are negative. Physical Exam Vitals and nursing note reviewed. Constitutional: General: She is not in acute distress. Appearance: She is well-developed. She is not diaphoretic. HENT: Head: Normocephalic and atraumatic. Right Ear: External ear normal. Left Ear: External ear normal. Eyes: Conjunctiva/sclera: Conjunctivae normal. Pupils: Pupils are equal, round, and reactive to light. Neck: Trachea: No tracheal deviation. Cardiovascular: Rate and Rhythm: Normal rate and regular rhythm. Heart sounds: Normal heart sounds. No murmur heard. Pulmonary: Effort: Pulmonary effort is normal. No respiratory distress. Breath sounds: Normal breath sounds. No wheezing or rales. Abdominal: General: Bowel sounds are decreased. There is no distension. Palpations: Abdomen is soft. Tenderness: There is abdominal tenderness (Moderate) in the right upper quadrant and right lower quadrant. There is guarding. There is no right CVA tenderness, left CVA tenderness ( voluntary) or rebound. Hernia: No hernia is present. Musculoskeletal: General: Normal range of motion. Cervical back: Normal range of motion. Skin: General: Skin is warm and dry. Neurological: Mental Status: She is alert and oriented to person, place, and time. Cranial Nerves: No cranial nerve deficit. Procedures Imaging Results CT ABDOMEN PELVIS W/ CONTRAST (Final result) Result time 03/22/22 19:56:33 Final result by Chucky Muhammad MD (03/22/22 19:56:33) Impression: IMPRESSION: No acute findings in the abdomen or pelvis. Narrative: EXAM DESCRIPTION: CT ABDOMEN PELVIS W/ CONTRAST REASON FOR STUDY: Right lower quadrant pain today. TECHNIQUE: CT scan of the abdomen and pelvis performed with intravenous and oral contrast using helical scanning technique with dynamic intravenous contrast injection. Reconstructed coronal and sagittal MPR images reviewed. All images stored on PACS. Automated exposure control was used as a dose optimization technique for this examination. CONTRAST TYPE/DOSE: 123 mL Isovue 370 injected via intravenously COMPARISON: 03/12/2021 FINDINGS: LOWER CHEST: No significant pulmonary abnormalities. No effusion. LIVER: Normal size. No identified cystic or solid masses. GALLBLADDER: Normal BILE DUCTS: No intrahepatic or extrahepatic ductal dilatation. SPLEEN: Multiple calcified nodules, compatible with old granulomatous disease PANCREAS: No identified cystic or solid masses. No significant calcifications. No adjacent inflammation or peripancreatic fluid collections. Pancreatic duct not dilated. ADRENALS: Normal. KIDNEYS/URINARY TRACT: No identified significant cystic or solid masses. No visualized stones. No hydronephrosis or hydroureter. Symmetric enhancement. The urinary bladder is nondistended, limiting assessment. No surrounding fat stranding. GI: The colon is normal in course and in caliber. There are multiple colonic diverticula without evidence of acute diverticulitis. There is no colonic wall thickening. The appendix is normal.. The distal esophagus and stomach appear unremarkable.. The small bowel is normal in course and in caliber and without wall thickening or evidence of obstruction. PERITONEUM: No ascites or free air. RETROPERITONEUM: No mass or adenopathy. REPRODUCTIVE: No significant abnormality. VASCULATURE: No abdominal aortic aneurysm. MUSCULOSKELETAL: No significant abnormality. OTHER: No other abnormality. THIS IS AN ELECTRONICALLY VERIFIED FINAL REPORT 03/22/2022 7:53 PM - Electronically signed by Chucky Muhammad M.D. MZ: TAYLOR Report ID: [id number] Reading Location: [place] [address] Labs Reviewed CMP (COMPREHENSIVE METABOLIC PANEL) - Abnormal; Notable for the following components: Result Value POTASSIUM 3.4 (*) GLUCOSE 104 (*) All other components within normal limits URINALYSIS REFLEX IF INDICATED BY ABNORMAL RESULTS - Abnormal; Notable for the following components: WBC ESTERASE 25 /ul (*) PROTEIN, RANDOM URINE 30 mg/dL (*) URINE KETONES 15 mg/dL (*) URINE BLOOD 10 /uL (*) BACTERIA, URINE Few (*) All other components within normal limits CBC WITH AUTO DIFFERENTIAL - Abnormal; Notable for the following components: NEUTROPHILS 75.4 (*) All other components within normal limits LIPASE - Normal CULTURE, URINE COMPLETE BLOOD COUNT (CBC) WITH DIFF Narrative: The following orders were created for panel order CBC with Diff [id number]. Procedure Abnormality Status --------- ------ CBC with Auto Differential[[id number]] Abnormal Final result Please view results for these tests on the individual orders. MDM Number of Diagnoses or Management Options Amount and/or Complexity of Data Reviewed Clinical lab tests: ordered and reviewed Tests in the radiology section of CPT??: ordered and reviewed Risk of Complications, Morbidity, and/or Mortality Presenting problems: moderate Diagnostic procedures: moderate Management options: moderate General comments: Differential diagnosis: Cholecystitis, appendicitis, diverticulitis, colitis, enteritis Patient Progress Patient progress: stable Reviewed: previous chart, nursing note and vitals Interpretation: labs and CT scan Clinical Impression 1. Gastroenteritis 2. Right sided abdominal pain Patient presents emergency room with abdominal pain along with diarrhea stools and vomiting. She was started on IV fluids labs were obtained. Urinalysis, lipase, CMP, and CBC were all unremarkable. CT scan of the abdomen pelvis with contrast revealed no acute findings either. After receiving 8 IV fluids and 2 doses of fentanyl she started feeling much improved. Her blood pressure was treated withlabetalol 20 mg IV. She had not been able to take her own hypertensive meds today. I went over all these results with the patient. She states she was feeling 100% better and was ready for discharge. I recommend she follow up with regular doctor for further evaluation treatment. * Melissa Lyn RN - 03/22/2022 5:41 PM CDT Pt medicated per provider orders. Pt educated on intended effects and side effects of medication and verbalized understanding, able to provide teach back of education. * Melissa Lyn RN - 03/22/2022 5:12 PM CDT Patient to ED with with c/o severe abdominal pain that started at 0200. Patient states her doctor told her not to take medication before being seen. But patient has family history of gallbladder issues. Pain is localized to right lower quad. Patient denies any respiratory issues and urinaryissues. * Bree Velasquez RN - 03/22/2022 3:22 PM CDT Patient ambulatory to triage with c/o right sided abdominal pain that increased at 0200 today. Patient states she has had loose stool for the past 3 weeks. Patient crying in triage. Patient denies taking any OTC medications GAMER. 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 [facility] [place] [address] Dakota Fabian APRN, B[employer]ACHER [employer] [address] [address] 11/26/2024 11:30 AM LOG GETTER [facility] [place] [address] Maggie Tolentino, PAC [address] [place] [address] documented as of this encounter Procedures Procedure Name Priority Date/Time Associated Diagnosis Comments CT ABDOMEN PELVIS W/ CONTRAST STAT 03/22/2022 7:35 PM CDT URINALYSIS REFLEX IF INDICATED BY ABNORMAL RESULTS STAT 03/22/2022 6:58 PM CDT CULTURE, URINE STAT 03/22/2022 6:58 PM CDT CBC WITH AUTO DIFFERENTIAL STAT 03/22/2022 5:08 PM CDT LIPASE STAT 03/22/2022 5:08 PM CDT CMP (COMPREHENSIVE METABOLIC PANEL) STAT 03/22/2022 5:08 PM CDT COMPLETE BLOOD COUNT (CBC) WITH DIFF STAT 03/22/2022 5:08 PM CDT documented in this encounter Results * CT ABDOMEN PELVIS W/ CONTRAST (03/22/2022 7:35 PM CDT) Anatomical Region Laterality Modality Abdomen N/A Computed Tomogra phy 03/22/2022 7:53 PM CDT Impressions 03/22/2022 7:56 PM CDT IMPRESSION: ?? No acute findings in the abdomen or pelvis. Narrative 03/22/2022 7:56 PM CDT EXAM DESCRIPTION: ?? CT ABDOMEN PELVIS W/ CONTRAST REASON FOR STUDY: ?? Right lower quadrant pain today. TECHNIQUE: CT scan of the abdomen and pelvis performed with intravenous and ? oral contrast using helical scanning technique with dynamic intravenous contrast injection. Reconstructed coronal and sagittal MPR images reviewed. All images stored on PACS. Automated exposure control was used as a dose optimization technique for this examination. CONTRAST TYPE/DOSE: ?? 123 mL ??Isovue 370 injected via ?? intravenously COMPARISON: ?? 03/12/2021 FINDINGS: LOWER CHEST: ?? No significant pulmonary abnormalities. No effusion. LIVER: ?? Normal size. ??No identified cystic or solid masses. GALLBLADDER: ?? Normal BILE DUCTS: ?? No intrahepatic or extrahepatic ductal dilatation. SPLEEN: ?? Multiple calcified nodules, compatible with old granulomatous disease PANCREAS: ?? No identified cystic or solid masses. No significant calcifications. No adjacent inflammation or peripancreatic fluid collections. Pancreatic duct not dilated. ?? ADRENALS: ?? Normal. KIDNEYS/URINARY TRACT: ?? No identified significant cystic or solid masses. No visualized stones. No hydronephrosis or hydroureter. Symmetric enhancement. ?The urinary bladder is nondistended, limiting assessment. ??No surrounding fat stranding. GI: ?? The colon is normal in course and in caliber. ??There are multiple colonic diverticula without evidence of acute diverticulitis. ??There is no colonic wall thickening. ??The appendix is normal.. ??The distal esophagus and stomach appear unremarkable.. ?? The small bowel is normal in course and in caliber and without wall thickening or evidence of obstruction. PERITONEUM: ?? No ascites or free air. RETROPERITONEUM: ?? No mass or adenopathy. REPRODUCTIVE: ?? No significant abnormality. VASCULATURE: ?? No abdominal aortic aneurysm. MUSCULOSKELETAL: ?? No significant abnormality. OTHER: ?? No other abnormality. THIS IS AN ELECTRONICALLY VERIFIED FINAL REPORT 03/22/2022 7:53 PM - Electronically signed by ??Chucky Muhammad M.D. MZ: MZ D: ??03/22/2022 7:53 PM T: ??03/22/2022 7:53 PM Report ID: [id number] Reading Location: ??[id number] Procedure Note Chucky Muhammad MD - 03/22/2022 EXAM DESCRIPTION: CT ABDOMEN PELVIS W/ CONTRAST REASON FOR STUDY: Right lower quadrant pain today. TECHNIQUE: CT scan of the abdomen and pelvis performed with intravenous and oral contrast using helical scanning technique with dynamic intravenous contrast injection. Reconstructed coronal and sagittal MPR images reviewed. All images stored on PACS. Automated exposure control was used as a dose optimization technique for this examination. CONTRAST TYPE/DOSE: 123 mL Isovue 370 injected via intravenously COMPARISON: 03/12/2021 FINDINGS: LOWER CHEST: No significant pulmonary abnormalities. No effusion. LIVER: Normal size. No identified cystic or solid masses. GALLBLADDER: Normal BILE DUCTS: No intrahepatic or extrahepatic ductal dilatation. SPLEEN: Multiple calcified nodules, compatible with old granulomatous disease PANCREAS: No identified cystic or solid masses. No significant calcifications. No adjacent inflammation or peripancreatic fluid collections. Pancreatic duct not dilated. ADRENALS: Normal. KIDNEYS/URINARY TRACT: No identified significant cystic or solid masses. No visualized stones. No hydronephrosis or hydroureter. Symmetric enhancement. The urinary bladder is nondistended, limiting assessment. No surrounding fat stranding. GI: The colon is normal in course and in caliber. There are multiple colonic diverticula without evidence of acute diverticulitis. There is no colonic wall thickening. The appendix is normal.. The distal esophagus and stomach appear unremarkable.. The small bowel is normal in course and in caliber and without wall thickening or evidence of obstruction. PERITONEUM: No ascites or free air. RETROPERITONEUM: No mass or adenopathy. REPRODUCTIVE: No significant abnormality. VASCULATURE: No abdominal aortic aneurysm. MUSCULOSKELETAL: No significant abnormality. OTHER: No other abnormality. THIS IS AN ELECTRONICALLY VERIFIED FINAL REPORT 03/22/2022 7:53 PM - Electronically signed by Chucky Muhammad M.D. MZ: MZ Report ID: [id number] Reading Location: [id number] IMPRESSION: No acute findings in the abdomen or pelvis. Eliu Del Toro MD IMG CT ORDERABLES Final R esult * Culture, Urine (03/22/2022 6:58 PM CDT) Pathologist [facility] CULTURE RESULTS MIXED GROWTH OF 3 OR MORE ORGANISMS, PROBABLE COLLECTION CONTAMINATION, SUGGEST REPEAT URINE CULTURE. 03/24/2022 10:05 AM CDT [facility] Urine URINE SPECIMEN COLLECTION, CLEAN CATCH / Unknown Non-Phlebotomy Collection / Unknown 03/22/2022 6:58 PM CDT 03/22/2022 7:03 PM CDT Ashly Sullivan APRN, [employer] MICROBIOLOGY - GENERA L ORDERABLES Final Result [facility] [address] [place] [address], * (ABNORMAL) URINALYSIS REFLEX IF INDICATED BY ABNORMAL RESULTS (03/22/2022 6:58 PM CDT) Pathologist [facility] SPECIFIC GRAVITY 1.025 1.003 - 1.030 03/22/2022 7:23 PM CDT [facility] URINE PH 5.0 5.0 - 9.0 03/22/2022 7:23 PM CDT [facility] WBC ESTERASE 25 /ul(A) Negative 03/22/2022 7:23 PM CDT [facility] NITRITE Negative Negative 03/22/2022 7:23 PM CDT [facility] PROTEIN, RANDOM URINE 30 mg/dL(A) Negative 03/22/2022 7:23 PM CDT [facility] URINE GLUCOSE, QUAL Negative Negative 03/22/2022 7:23 PM CDT [facility] URINE KETONES 15 mg/dL(A) Negative 03/22/2022 7:23 PM CDT [facility] UROBILINOGEN Normal Normal mg/dL 03/22/2022 7:23 PM CDT [facility] URINE BLOOD 10 /uL(A) Negative marjorie/ul 03/22/2022 7:23 PM CDT [facility] URINALYSIS COLOR Alissa 03/22/20 7:23 PM CDT [facility] URINALYSIS CLARITY Slightly Cloudy 03/22/2022 7:23 PM CDT [facility] WBC (Urine) 0-5 Negative, 0-5 /hpf 03/22/2022 7:23 PM CDT [facility] URINE RBC'S 0-2 Negative, 0-2 /hpf 03/22/2022 7:23 PM CDT [facility] EPITHELIAL CELLS Moderate amount /lpf 03/22/2022 7:23 PM CDT [facility] BACTERIA, URINE Few(A) Negative /hpf 03/22/2022 7:23 PM CDT [facility] Urine URINE SPECIMEN COLLECTION, CLEAN CATCH / Unknown Non-Phlebotomy Collection / Unknown 03/22/2022 6:58 PM CDT 03/22/2022 7:03 PM CDT us Ashly Sullivan VETERINARY PRACTICE MANAGER, [employer] URINE ORDERABLES Serene l Result [facility] [address] [place] [address] * (ABNORMAL) CBC with Auto Differential (03/22/2022 5:08 PM CDT) WBC 7.63 4.00 - 12.00 10(3)/mcL 03/22/2022 5:36 PM CDT [facility] RBC 5.13 3.80 - 5.30 10(6)/mcL 03/22/2022 5:36 PM CDT [facility] HEMOGLOBIN (HGB) 14.4 12.0 - 15.8 g/dL 03/22/2022 5:36 PM CDT [facility] HEMATOCRIT (HCT) 45.3 36.0 - 47.0 % 03/22/2022 5:36 PM CDT [facility] MCV 88.3 82.0 - 96.0 fL 03/22/2022 5:36 PM CDT [facility] MCH 28.1 26.0 - 34.0 pg 03/22/2022 5:36 PM CDT [facility] MCHC 31.8 31.0 - 36.0 g/dL 03/22/2022 5:36 PM CDT [facility] PLATELET COUNT 418 140 - 440 10(3)/mcL 03/22/2022 5:36 PM CDT [facility] RDW 13.1 11.8 - 15.5 % 03/22/2022 5:36 PM CDT [facility] MPV 11.2 9.7 - 12.4 fL 03/22/2022 5:36 PM CDT [facility] NEUTROPHILS 75.4(H) 47.0 - 73.0 % 03/22/2022 5:36 PM CDT [facility] LYMPHOCYTES 18.0 18.0 - 42.0 % 03/22/2022 5:36 PM CDT [facility] MONOCYTES 5.4 4.0 - 12.0 % 03/22/2022 5:36 PM CDT [facility] EOSINOPHILS 0.4 0.0 - 5.0 % 03/22/2022 5:36 PM CDT [facility] [facility] BASOPHILS 0.8 0.0 - 1.0 % 03/22/2022 5:36 PM CDT [facility] ABSOLUTE NEUTROPHILS 5.76 1.60 - 7.70 10(3)/mcL 03/22/2022 5:36 PM CDT [facility] ABSOLUTE LYMPHOCYTES 1.37 1.30 - 3.20 10(3)/mcL 03/22/2022 5:36 PM CDT [facility] ABSOLUTE MONOCYTES 0.41 0.20 - 1.00 10(3)/mcL 03/22/2022 5:36 PM CDT [facility] ABSOLUTE EOSINOPHIL 0.03 0.00 - 0.40 10(3)/mcL 03/22/2022 5:36 PM CDT [facility] ABSOLUTE BASOPHILS 0.06 0.00 - 0.10 10(3)/mcL 03/22/2022 5:36 PM CDT [facility] NRBC PER 100 WBC 0 03/22/20 5:36 PM CDT [facility] Blood Venous Catheter (IV) / Unknown 03/22/2022 5:08 PM CDT 03/22/2022 5:32 PM CDT us Ashly Sullivan APRN, BLEACHER KRAFT PULP HEMATOLOGY ORDERABLES Final Result Performing Organization Address City/[facility]/ZIP Co de Phone Number [facility] [address] [place] [address] * Lipase [id number] (03/22/2022 5:08 PM CDT) LIPASE 19.9 13 - 60 U/L 03/22/2022 5:54 PM CDT [facility] Blood Venous Catheter (IV) / Unknown 03/22/2022 5:08 PM CDT 03/22/2022 5:32 PM CDT us Ashly Sullivan VETERINARY PRACTICE MANAGER, BLEACHER KRAFT PULP CHEMISTRY ORDERABLES Final Result [facility] [place] [address] * (ABNORMAL) Comprehensive Metabolic Panel (Cmp) [id number] (03/22/2022 5:08 PM CDT) SODIUM 138 136 - 144 mmol/L 03/22/2022 5:54 PM [facility] POTASSIUM 3.4(L) 3.5 - 5.1 mmol/L 03/22/2022 5:54 PM T [facility] CHLORIDE 101 100 - 110 mmol/L 03/22/2022 5:54 PM [facility] CO2, VENOUS 25 22 - 32 mmol/L 03/22/2022 5:54 PM [facility] ANION GAP 15.4 8.0 - 20.0 mmol/L 03/22/2022 5:54 PM T [facility] GLUCOSE 104(H) 70 - 99 mg/dL 03/22/2022 5:54 PM T [facility] BUN 10 6 - 20 mg/dL 03/22/2022 5:54 PM [facility] CREATININE, BLOOD 0.64 0.60 - 1.10 mg/dL 03/22/2022 5:54 PM [facility] BUN/CREATININE RATIO 16 12 - 20 ratio 03/22/2022 5:54 PM [facility] TOTAL PROTEIN 7.9 6.0 - 8.3 g/dL 03/22/2022 5:54 PM [facility] ALBUMIN 4.7 3.5 - 5.2 g/dL 03/22/2022 5:54 PM [facility] Comment: The colormetric methods used for the determination of Albumin may lead to falsely elevated test results in patients suffering from renal failure or insufficiency due to interference with other proteins. A/G RATIO 1.5 1.0 - 2.0 03/22/2022 5:54 PM [facility] CALCIUM 9.3 8.9 - 10.3 mg/dL 03/22/2022 5:54 PM [facility] T BILI 0.3 <=1.2 mg/dL 03/22/2022 5:54 PM [facility] SGOT (AST) 18 <=32 U/L 03/22/2022 5:54 PM [facility] SGPT (ALT) 14 <=41 U/L 03/22/2022 5:54 PM CDT [facility] ALKALINE PHOSPHATASE 66 35 - 105 U/L 03/22/2022 5:54 PM CDT [facility] GFR, EST. NONAFRICAN >60 >=60 03/22/2022 5:54 PM CDT [facility] GFR, EST. >60 >=60 022 5:54 PM CDT [facility] Comment: Creatinine Clearance is the preferred criteria for selecting drug dose adjustments in renally impaired patients. ??The GFR is provided as additional pertinent clinical information. GFR is reported in mL/min/1.73 sq m. Blood Venous Catheter (IV) / Unknown 03/22/2022 5:08 PM CDT 03/22/2022 5:32 PM CDT Ashly Sullivan APRN, BLEACHER KRAFT PULP CHEMISTRY ORDERABLES Final Result [facility] [address] [place] [address] documented in this encounter Visit Diagnoses Diagnosis Gastroenteritis- Primary Other and unspecified noninfectious gastroenteritis and colitis Right sided abdominal pain Abdominal pain, unspecified site documented in this encounter Administered Medications Inactive Administered Medications - up to 3 most recent administrations Medication Order MAR Action Action Date Dose Rate Site 0.9 % sodium chloride solution at 500 mL/hr, Intravenous, ONCE, 1 dose, On Fri03/22/22 at 1830 New Bag 03/22/2022 6:25 PM CDT 1,000 mL 500 mL/hr fentaNYL (PF) (SUBLIMAZE) injection 50 mcg 50 mcg, Intravenous, ONCE, 1 dose, On Fri03/22/22 at 1800 Given 03/22/2022 5:37 PM CDT 50 mcg fentaNYL (PF) (SUBLIMAZE) injection 75 mcg 75 mcg, Intravenous, ONCE, 1 dose, On Fri03/22/22 at 1830 Given 03/22/2022 6:32 PM CDT 75 mcg iopamidol (ISOVUE-370) 76 % injection 123 mL 123 mL, Intravenous, ONCE, 1 dose, On Fri03/22/22 at 2000 Given 03/22/2022 7:29 PM CDT 123 mL labetalol (NORMODYNE;TRANDATE) injection 20 mg 20 mg, Intravenous, ONCE, 1 dose, On Fri03/22/22 at 1930 Given 03/22/2022 7:03 PM CDT 20 mg Prochlorperazine Edisylate (COMPAZINE) injection 10 mg 10 mg, Intravenous, ONCE, 1 dose, On Fri03/22/22 at 1830 Given 03/22/2022 6:20 PM CDT 10 mg documented in this encounter Active and Recently Administered Medications Times are shown in CDT. Scheduled Medication Order 03/20/2022 03/21/2022 03/22/2022 0.9 % sodium chloride solution (COMPLETED) at 500 mL/hr, Intravenous, ONCE, 1 dose, On Fri03/22/22 at 1830 1825 (New Bag - Prov ider: Melissa Lyn RN)2017 (Stopped - Provider: Allen Dale RN) fentaNYL (PF) (SUBLIMAZE) injection 50 mcg (COMPLETED) 50 mcg, Intravenous, ONCE, 1 dose, On Fri03/22/22 at 1800 1737 (Given - Provid er: Melissa Lyn RN) fentaNYL (PF) (SUBLIMAZE) injection 75 mcg (COMPLETED) 75 mcg, Intravenous, ONCE, 1 dose, On Fri03/22/22 at 1830 1832 (Given - Provid er: Melissa Lyn RN) iopamidol (ISOVUE-370) 76 % injection 123 mL (COMPLETED) 123 mL, Intravenous, ONCE, 1 dose, On Fri03/22/22 at 2000 1929 (Given - Provid er: Zora Smith RTR) labetalol (NORMODYNE;TRANDATE) injection 20 mg (COMPLETED) 20 mg, Intravenous, ONCE, 1 dose, On Fri03/22/22 at 1930 1903 (Given - Provid er: Allen Dale RN) Prochlorperazine Edisylate (COMPAZINE) injection 10 mg (COMPLETED) 10 mg, Intravenous, ONCE, 1 dose, On Fri03/22/22 at 1830 1820 (Given - Provid er: Melissa S Troutman, RN) documented in this encounter Additional Health Concerns Infection Onset Date Last Indicated Resolved Time MRSA 03/30/2020 03/30/2020 Assessment Noted Time PHQ-9 Depression Total Score: 0 12/15/19 21 8:53 AM LOG GETTER documented as of this encounter Care Teams Boiling House Oiler Relationship Specialty Start Date End Date John Méndez MD PCP - General Family Medicine 09/28/19 04/26/24 documented as of this encounter
--- OUTSIDE RECORDS SUMMARY | 2024-10-20 03:53 | XMS_ITS | Encounter Summary ---
Author Organization [facility] Address [address] 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 Requested Prescriptions Pending Prescriptions Disp Refills ??? acetaminophen-codeine (TYLENOL #3) 300-30 MG Tablet [Pharmacy Med Name: ACETAMINOPHEN-COD #3 TABLET] 90 Tablet 0 Sig: TAKE 1 TABLET BY MOUTH 3 TIMES DAILY NEEDED FOR MODERATE OR MORE SEVERE PAIN. DNF 06/23/21 initially requested 07/20/21 Last filled 06/23/21 Drug screen noted 05/01/21. Please advise if this medication will be filled. * Telephone Encounter - Darlin Fontana RN - 07/23/2021 5:31 PM CDT Patient calling to see if this medication can be renewed as soon as possible. Patient said she is completely out of her medication at this time. Please advise * Telephone Encounter - Diana Martinez RN - 07/23/2021 2:55 PM CDT Patient calling about her T3 refill. States that she took her last one this morning. Please refill as you see appropriate. Refill already pended for your review. Please call patient back once filled so she knows to go pick it up. States you can leave a VM or send Boatbound message if she doesn't answer. * Telephone Encounter - Antoinette Vera RN - 07/23/2021 9:40 AM CDT Patient calling and checking to see if the office is open and if provider is in office today, because her Tylenol #3 is due to be refilled today. Advised patient that the office is open and provider is in the office. Order has already been pended for your review. * Telephone Encounter - Jayda Abernathy RN - 07/23/2021 8:22 AM CDT Medication failed the protocol, provider to review and approve the medication order if appropriate. Requested Prescriptions Pending Prescriptions Disp Refills acetaminophen-codeine (TYLENOL #3) 300-30 MG Tablet [Pharmacy Med Name: ACETAMINOPHEN-COD #3 TABLET] 90 Tablet 0 Sig: TAKE 1 TABLET BY MOUTH 3 TIMES DAILY NEEDED FOR MODERATE OR MORE SEVERE PAIN. DNF 06/23/21 [email or web address] Not Delegated - Analgesics: Opioid Agonist Combinations Failed - 07/23/2021 7:01 AM Failed - This refill cannot be delegated Passed - Valid encounter within last 6 months Past Office Visits Recent Outpatient Visits 2 months ago Essential hypertension [facility] - John Luna MD 4 months ago Acute non-recurrent maxillary sinusitis [facility] - John Luna MD 6 months ago Moderate episode of recurrent major depressive disorder (HCC) [facility] John Delarosa MD 7 months ago Moderate episode of recurrent major depressive disorder (HCC) [facility] John Delarosa MD 8 months ago Mixed hyperlipidemia [facility] - John Luna MD Upcoming Appointments PIPELINE INSPECTOR - Recent and Past Visits Recent Visits [...] Werner 05/02/20 Office Visit John Méndez MD [facility] Showing recent visits within past 460 days with a meds authorizing provider and meeting all other requirements Future Appointments No visits were found meeting these conditions. Showing future appointments within next 90 days with a meds authorizing provider and meeting all other requirements * Telephone Encounter - Sol De La Cruz RN - 07/23/2021 7:00 AM CDT Patient calling for refill on Tylenol #3. Out of medication and would like it refilled today. Already pended for PCP review. * Telephone Encounter - Antoinette Arora RN - 07/20/2021 2:43 PM CDT [place] 06/23/21 Medication failed the protocol, provider to review and approve the medication order if appropriate. Requested Prescriptions Pending Prescriptions Disp Refills acetaminophen-codeine (TYLENOL #3) 300-30 MG Tablet [Pharmacy Med Name: ACETAMINOPHEN-COD #3 TABLET] 90 Tablet 0 Sig: TAKE 1 TABLET BY MOUTH 3 TIMES DAILY NEEDED FOR MODERATE OR MORE SEVERE PAIN. DNF 06/23/21 [facility] Not Delegated - Analgesics: Opioid Agonist Combinations Failed - 07/20/2021 2:43 PM Failed - This refill cannot be delegated Passed - Valid encounter within last 6 months Past Office Visits Recent Outpatient Visits 2 months ago Essential hypertension [facility] John Delarosa MD 4 months ago Acute non-recurrent maxillary sinusitis [facility] John Delarosa MD 6 months ago Moderate episode of recurrent major depressive disorder (HCC) [facility] John Delarosa MD 7 months ago Moderate episode of recurrent major depressive disorder (HCC) [facility] John Delarosa MD 8 months ago Mixed hyperlipidemia [facility] John Delarosa MD Upcoming Appointments PIPELINE INSPECTOR - Recent and Past Visits Recent Visits Date Type Provider Dept 05/01/21 Office Visit John M[facility]dez MD [facility] 03/14/21 Office Visit John Méndez MD [facility] 01/11/21 Office Visit John Méndez MD [facility] 12/14/20 Office Visit John Méndez MD [facility] 11/15/20 Office Visit John Méndez MD [facility] 06/09/20 Office Visit John Méndez MD [facility] 05/02/20 Office Visit John Méndez MD [facility] [place] Showing recent visits within past [...] st Contact Info) Description 11/02/2024 8:15 AM COMMUNITY ACTION WORKER Office Visit [facility] [address] [place] [address] Dakota Fabian APRN, CAR SALESPERSON [address] [address] 11/26/2024 11:30 AM COMMUNITY ACTION WORKER Office Visit [facility] [address] [place] [address] Maggie Tolentino, PAC [address] [place] [address] documented as of this encounter Visit Diagnoses Diagnosis Sacroiliac joint dysfunction of both sides Disorders of sacrum Degenerative lumbar disc Degeneration of lumbar or lumbosacral intervertebral disc documented in this encounter Additional Health Concerns Infection Onset Date Last Indicated Resolved Time MRSA 03/30/2020 03/30/2020 COVID - 19 09/11/2024 09/11/2024 09/11/2024 7:21 PM COMMUNITY ACTION WORKER Assessment Noted Time PHQ-9 Depression Total Score: 0 12/15/19 8:53 AM COMMUNITY ACTION WORKER documented as of this encounter Care Teams Supervisor Powdered Metal Relationship Specialty Start Date End Date John Méndez MD PCP - General Family Medicine 09/28/19 04/26/24 Dakota Fabian, THOM, CAR SALESPERSON [address] [place] [address] PCP - General Advanced Practice Nurse 04/27/24 documented as of this encounter
--- OUTSIDE RECORDS SUMMARY | 2024-10-20 03:53 | XMS_ITS | Encounter Summary ---
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 file [...] st Contact Info) Description 11/02/2024 8:15 AM BRUSH STAINER Office Visit [facility] [address] [place] [phone] Dakota Fabian, MEDICAL REPRESENTATIVE, CLINICAL FACULTY [address] [address] 11/26/2024 11:30 AM BRUSH STAINER Office Visit [facility] [place] [address] [place] [address] Maggie Tolentino, [facility] [address] [place] [address] documented as of this encounter Visit Diagnoses Not on filedocumented in this encounter Additional Health Concerns Infection Onset Date Last Indicated Resolved Time MRSA 03/30/2020 03/30/2020 Assessment Noted Time PHQ-9 Depression Total Score: 0 12/15/19 21 8:53 AM BRUSH STAINER documented as of this encounter Care Teams Harness Fitter Relationship Specialty Start Date End Date John Méndez MD PCP - General Family Medicine 09/28/19 04/26/24 documented as of this encounter
--- OUTSIDE RECORDS SUMMARY | 2024-10-20 03:53 | XMS_ITS | Encounter Summary ---
Author Organization [facility] Address [address] [facility] 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 Requested Prescriptions Pending Prescriptions Disp Refills acetaminophen-codeine (TYLENOL #3) 300-30 MG Tablet [Pharmacy Med Name: ACETAMINOPHEN-COD #3 TABLET] 90 Tablet 0 Sig: TAKE 1 TABLET BY MOUTH THREE TIMES A DAY NEEDED FOR PAIN Not Delegated - Opioid Combinations Protocol Failed - 02/15/2022 9:51 AM Failed - This refill cannot be delegated Passed - Visit with relevant provider in past 12 months or upcoming 90 days Recent Visits Date Type Provider Dept 12/25/21 Office Visit John Méndez MD [facility] 05/01/21 Office Visit John Méndez MD [facility] 03/14/21 Office Visit John Méndez MD [facility] [place] Showing recent visits within past 365 days and meeting all other requirements Future Appointments Date Type Provider Dept 04/29/22 Appointment John Méndez MD [facility] Showing future appointments within next 90 days and meeting all other requirements documented in this encounter Plan of Treatment Upcoming Encounters Date Type Department Care Team (Late st Contact Info) Description 11/02/2024 8:15 AM SURFACE MINER Office Visit [facility] [address] [place] [address] Dakota Fabian APRN, HEEL STAINER [address] [address] 11/26/2024 11:30 AM SURFACE MINER Office Visit [facility] [address] [place] [address] Maggie Tolentino, PAC [address] [place] [address] documented as of this encounter Visit Diagnoses Diagnosis Sacroiliac joint dysfunction of both sides Disorders of sacrum Degenerative lumbar disc Degeneration of lumbar or lumbosacral intervertebral disc documented in this encounter Additional Health Concerns Infection Onset Date Last Indicated Resolved Time MRSA 03/30/2020 03/30/2020 COVID - 19 09/11/2024 09/11/2024 09/11/2024 7:21 PM SURFACE MINER Assessment Noted Time PHQ-9 Depression Total Score: 0 12/15/19 8:53 AM SURFACE MINER documented as of this encounter Care Teams Front Office Coordinator Relationship Specialty Start Date End Date John Méndez MD PCP - General Family Medicine 09/28/19 04/26/24 Dakota Fabian, WOOD BOAT BUILDER SUPERVISOR, HEEL STAINER [address] [place] [address] PCP - General Advanced Practice Nurse 04/27/24 documented as of this encounter
--- OUTSIDE RECORDS SUMMARY | 2024-10-20 03:53 | XMS_ITS | Encounter Summary ---
Author Organization [facility] Address [address] [facility] 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 No / Unsure 05/07/2021 8:48 AM CDT documented as of this encounter Miscellaneous Notes * Telephone Encounter - Elana James RN - 05/22/2021 7:25 PM CDT Patient calling to follow up on Tylenol #3 order. She was wondering if provider had filled medication. Triage nurse reviewed EMR and told patient that medication had not been filled at this time. Patient verbalized understanding. documented in this encounter Plan of Treatment Upcoming Encounters Date Type Department Care Team (Late st Contact Info) Description 11/02/2024 8:15 AM WARP DYEING VAT TENDER Office Visit [facility] [address] [place] [address] Dakota Fabian APRN, MANAGER STRATEGIC ALLIANCES #[address] [address] 11/26/2024 11:30 AM WARP DYEING VAT TENDER Office Visit [facility] [address] [place] [address] Maggie Tolentino, PAC [address] [place] [address] documented as of this encounter Visit Diagnoses Not on filedocumented in this encounter Additional Health Concerns Infection Onset Date Last Indicated Resolved Time MRSA 03/30/2020 03/30/2020 Assessment Noted Time PHQ-9 Depression Total Score: 0 12/15/19 8:53 AM WARP DYEING VAT TENDER documented as of this encounter Care Teams Roving Winder Relationship Specialty Start Date End Date John Méndez MD PCP - General Family Medicine 09/28/19 04/26/24 documented as of this encounter
--- OUTSIDE RECORDS SUMMARY | 2024-10-20 03:53 | XMS_ITS | Encounter Summary ---
Author Organization [facility] Address [address] [facility] 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 No / Unsure 03/22/2022 3:20 PM CDT documented as of this encounter Miscellaneous Notes * Telephone Encounter - Daphne Staley RN - 04/19/2022 10:02 AM CDT S: Melinda is calling to inquire about status of Tylenol #3 refill R: Please advise. * Telephone Encounter - Kelly Palacios RN - 04/18/2022 10:09 AM CDT Medication failed the protocol, provider to review and approve the medication order if appropriate. Last Rx per PDMP 03/20/22 Kelly SAGASTUME Requested Prescriptions Pending Prescriptions Disp Refills acetaminophen-codeine (TYLENOL #3) 300-30 MG Tablet [Pharmacy Med Name: ACETAMINOPHEN-COD #3 TABLET] 90 Tablet 0 Sig: TAKE 1 TABLET BY MOUTH THREE TIMES A DAY NEEDED FOR PAIN DNF 02/[address] Not Delegated - Opioid Combinations Protocol Failed - 04/17/2022 2:59 PM Failed - This refill cannot be delegated Passed - Visit with relevant provider in past 12 months or upcoming 90 days Recent Visits Date Type Provider Dept 12/25/21 Office Visit John Méndez MD [facility] 05/01/21 Office Visit [facility] Showing recent visits within past 365 days and meeting all other requirements Future Appointments Date Type Provider Dept 04/29/22 Appointment John Méndez MD [facility] Showing future appointments within next 90 days and meeting all other requirements documented in this encounter Plan of Treatment Upcoming Encounters Date Type Department Care Team (Late st Contact Info) Description 11/02/2024 8:15 AM SOILS TECHNICIAN Office Visit [facility] - [place] [address] [place] [address] Dakota Fabian APRN, AIR SAMPLER [address] [address] 11/26/2024 11:30 AM SOILS TECHNICIAN Office Visit [facility] [address] [place] [address] Maggie Tolentino, PAC [address] [place] [address] documented as of this encounter Visit Diagnoses Diagnosis Sacroiliac joint dysfunction of both sides Disorders of sacrum Degenerative lumbar disc Degeneration of lumbar or lumbosacral intervertebral disc documented in this encounter Additional Health Concerns Infection Onset Date Last Indicated Resolved Time MRSA 03/30/2020 03/30/2020 COVID - 19 09/11/2024 09/11/2024 09/11/2024 7:21 PM SOILS TECHNICIAN Assessment Noted Time PHQ-9 Depression Total Score: 0 12/15/19 8:53 AM SOILS TECHNICIAN documented as of this encounter Care Teams Car Painter Relationship Specialty Start Date End Date John Méndez MD PCP - General Family Medicine 09/28/19 04/26/24 Dakota Fabian APRN, AIR SAMPLER [address] [address] PCP - General Advanced Practice Nurse 04/27/24 documented as of this encounter
--- OUTSIDE RECORDS SUMMARY | 2024-10-20 03:54 | XMS_ITS | Encounter Summary ---
Author Organization [facility] Address [address] 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 No / Unsure 06/24/2022 10:31 AM CDT documented as of this encounter Miscellaneous Notes * Telephone Encounter - Antoinette Arora RN - 12/26/2020 4:05 PM CDT The original prescription was discontinued on 12/26/2020 by John Méndez MD documented in this encounter Plan of Treatment Upcoming Encounters Date Type Department Care Team (Late st Contact Info) Description 11/02/2024 8:15 AM CRIMPER ASSEMBLER Office Visit [facility] [address] [place] [address] Dakota Fabian, THOM, MACHINE FITTER [address] [address] 11/26/2024 11:30 AM CRIMPER ASSEMBLER Office Visit [facility] [address] [place] [address] Maggie Tolentino, PAC [address] [place] [address] documented as of this encounter Visit Diagnoses Not on filedocumented in this encounter Additional Health Concerns Infection Onset Date Last Indicated Resolved Time MRSA 03/30/2020 03/30/2020 Assessment Noted Time PHQ-9 Depression Total Score: 0 12/15/19 21 8:53 AM CRIMPER ASSEMBLER documented as of this encounter Care Teams Retail Assistant Relationship Specialty Start Date End Date John Méndez MD PCP - General Family Medicine 09/28/19 04/26/24 documented as of this encounter
--- OUTSIDE RECORDS SUMMARY | 2024-10-20 03:54 | XMS_ITS | Encounter Summary ---
Author Organization [facility] Address [address] 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 No / Unsure 03/12/2021 8:49 AM CDT documented as of this encounter Last Filed Vital Signs Vital Sign Reading Time Taken Comments Blood Pressure 157/108 03/12/2021 11:15 AM CDT Pulse 64 03/12/2021 11:15 AM CDT Temperature 36.7 ??C (98.1 ??F) 03/12/2021 8:51 AM CD T Respiratory Rate 18 03/12/2021 8:51 AM CDT Oxygen Saturation 99% 03/12/2021 11:15 AM CDT Inhaled Oxygen Concentration - - Weight 87.1 kg (192 lb) 03/12/2021 8:51 AM CDT Height 157.5 cm (5' 2 ) 03/12/2021 8:51 AM CDT Body Mass Index 35.12 03/12/2021 8:51 AM CDT documented in this encounter Discharge Instructions * Attachments The following attachments cannot be sent through Care Everywhere. * Flank Pain, Uncertain Cause (Tamazight) documented in this encounter Medications at Time of Discharge acetaminophen-cod eine (TYLENOL #3) 300-30 MG Tablet TAKE 1 TABLET BY MOUTH 3 TIMES DAILY NEEDED FOR MODERATE OR MORE SEVERE PAIN. 90 Tablet 02/21/2021 1 albuterol (PROVENTIL/VENTOL IN) 1.25 MG/3ML Nebulizer [...] by mouth daily. 2 06/14/2019 2 cetirizine (ZYRTEC) 10 MG TabletIndications :Chronic sinusitis, unspecified location Take 1 Tab by mouth daily. 90 Tab 3 09/28/2019 1 diclofenac (VOLTAREN) 50 MG Tablet Delayed Response Take 1 Tablet by mouth 3 times daily. 90 Tablet 03/12/2021 1 escitalopram (LEXAPRO) 20 MG Tablet TAKE 1 TABLET BY MOUTH EVERY DAY 90 Tablet 1 03/13/2021 1 escitalopram (LEXAPRO) 20 MG Tablet Take 1 Tablet by mouth daily. 90 Tablet 12/14/2020 1 montelukast (SINGULAIR) 10 MG TabletIndications :Chronic sinusitis, unspecified location Take 10 mg by mouth daily. 3 06/14/2019 2 omeprazole (PriLOSEC) 20 MG CAPSULE DELAYED RELEASE omeprazole 20 mg capsule,delayed release TAKE ONE CAPSULE BY MOUTH TWICE A DAY BEFORE BREAKFAST AND DINNER 1 ondansetron (ZOFRAN-ODT) 4 MG TABLET DISPERSIBLE Take 1 Tablet by mouth every 8 hours as needed for Nausea - 1st line. 15 Tablet 03/12/2021 1 tiZANidine (ZANAFLEX) 2 MG Capsule Take 2 mg by mouth nightly. 2 documented as of this encounter ED Notes * Vianney Estrella RN - 03/12/2021 11:26 AM CDT Patient discharged. Discharge instructions and patient educational material reviewed with patient; questions and concerns addressed; patient verbalizes understanding, using teach back. Patient was given 2 prescriptions. Patient was informed no drinking alcohol, driving or operating heavy machinery while taking narcotics or muscle relaxants. Patient discharged per ambulatory mode with a steady gait to the exit. Significant other at side. Respirations even and non- labored. No signs of distress noted. SL D/C'ed with Yogesh cath intact. * Vianney Estrella RN - 03/12/2021 10:26 AM CDT Pt medicated per providers orders. Urine specimen collected and sent to lab. * Vianney Estrella RN - 03/12/2021 10:20 AM CDT Pt medicated per provider orders. Pt educated on intended effects and side effects of medication and verbalized understanding, able to provide teach back of education. * Kenn Ibarra MD - 03/12/2021 9:09 AM CDT Chief Complaint Patient presents with ??? Flank Pain Melinda Olmedo is a 45 y.o. female who presents to the emergency department complaining of back pain. Patient states since Friday she has had pain mostly in her left back in CVA area. It is constant. It is feels like somebody is twisting it. Currently it is an 8 on a 10 point pain scale. It has been associated with nausea without vomiting. She has had the urge like she has to urinate frequently but not going a whole lot. Patient states she had a history of kidney stones many years ago and this feels kind of similar to that. Nothing she does really makes pain better or worse. She has tried changing positions without relief. Past medical history: Illnesses: A remote history of kidney stones, previous history of hypertension but was taken off meds when her blood pressure normalized Medications: None Allergies: Penicillin Social History: Tobacco: Never smoker Alcohol: Denies Drugs: Denies Family History: High blood pressure No current facility-administered medications for this encounter. Current Outpatient Medications Medication Sig Dispense Refill ??? acetaminophen-codeine (TYLENOL #3) 300-30 MG Tablet TAKE 1 TABLET BY MOUTH 3 TIMES DAILY NEEDED FOR MODERATE OR MORE SEVERE PAIN. 90 Tablet 0 ??? albuterol (PROVENTIL/VENTOLIN) 1.25 MG/3ML Nebulizer Soln take 3 mL by inhalation every 4 hoursas needed for Wheezing or Cough. 90 Vial 3 ??? albuterol 108 (90 Base) MCG/ACT Aerosol Solution TAKE 2 PUFFS BY INHALATION EVERY 4 HOURS NEEDED FOR WHEEZING OR COUGH. 17 Inhaler 2 ??? atorvastatin (LIPITOR) 20 MG Tablet Take 1 Tab by mouth every evening. 90 Tab 3 ??? buPROPion (WELLBUTRIN) 300 MG TABLET SR 24 HR XL tablet Take 300 mg by mouth daily. 2 ??? cetirizine (ZYRTEC) 10 MG Tablet Take 1 Tab by mouth daily. 90 Tab 3 ??? diclofenac (VOLTAREN) 50 MG Tablet Delayed Response Take 1 Tablet by mouth 3 times daily. 90 Tablet 0 ??? escitalopram (LEXAPRO) 20 MG Tablet Take 1 Tablet by mouth daily. 90 Tablet 0 ??? montelukast (SINGULAIR) 10 MG Tablet Take 10 mg by mouth daily. 3 ??? omeprazole (PriLOSEC) 20 MG CAPSULE DELAYED RELEASE omeprazole 20 mg capsule,delayed release TAKE ONE CAPSULE BY MOUTH TWICE A DAY BEFORE BREAKFAST AND DINNER ??? ondansetron (ZOFRAN-ODT) 4 MG TABLET DISPERSIBLE Take 1 Tablet by mouth every 8 hours as neededfor Nausea - 1st line. 15 Tablet 0 ??? tiZANidine (ZANAFLEX) 2 MG Capsule Take [...] file Occupational History ??? 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 Smoking status: Never Smoker [...] Social History Narrative ??? Not on file Social Determinants of Health Social determinant risk not applicable to this patient. BP (!) 174/97 Pulse 77 Temp 98.1 ??F (36.7 ??C) (Tympanic) Resp 18 Ht 5' 2 (1.575 m) Wt 192 lb (87.1 kg) LMP (LMP Unknown) Comment: full SpO2 100% BMI 35.12 kg/m?? Review of Systems Constitutional: Negative for activity change, appetite change, chills, diaphoresis, fatigue and fever. HENT: Negative for dental problem, rhinorrhea and sore throat. Eyes: Negative for visual disturbance. Respiratory: Negative for cough, chest tightness, shortness of breath and wheezing. Cardiovascular: Negative for chest pain, palpitations and leg swelling. Gastrointestinal: Negative for abdominal pain, constipation, diarrhea, nausea and vomiting. Genitourinary: Positive for urgency. Negative for difficulty urinating, flank pain and hematuria. Musculoskeletal: Positive for back pain. Negative for arthralgias, myalgias, neck pain and neck stiffness. Skin: Negative for color change and rash. Allergic/Immunologic: Negative for food allergies. Neurological: Negative for dizziness, syncope, weakness, light-headedness, numbness and headaches. Psychiatric/Behavioral: Negative for self-injury, sleep disturbance and suicidal ideas. All other systems reviewed and are negative. Physical Exam Vitals and nursing note reviewed. Constitutional: General: She is not in acute distress. Appearance: She is well-developed. She is not diaphoretic. HENT: Head: Normocephalic and atraumatic. Right Ear: External ear normal. Left Ear: External ear normal. Nose: Nose normal. Mouth/Throat: Pharynx: No oropharyngeal exudate. Eyes: General: Right eye: No discharge. Left eye: No discharge. Conjunctiva/sclera: Conjunctivae normal. Pupils: Pupils are equal, round, and reactive to light. Neck: Thyroid: No thyromegaly. Vascular: No JVD. Trachea: No tracheal deviation. Cardiovascular: Rate and Rhythm: Normal rate and regular rhythm. Heart sounds: Normal heart sounds. No murmur heard. Pulmonary: Effort: Pulmonary effort is normal. No respiratory distress. Breath sounds: Normal breath sounds. No wheezing or rales. Chest: Chest wall: No tenderness. Abdominal: General: Bowel sounds are normal. There is no distension. Palpations: Abdomen is soft. There is no mass. Tenderness: There is abdominal tenderness. There is left CVA tenderness. There is no guarding or rebound. Comments: Some left flank tenderness to palpation Musculoskeletal: General: No tenderness. Normal range of motion. Cervical back: Normal range of motion and neck supple. Lymphadenopathy: Cervical: No cervical adenopathy. Skin: General: Skin is warm and dry. Capillary Refill: Capillary refill takes less than 2 seconds. Coloration: Skin is not pale. Findings: No erythema or rash. Neurological: Mental Status: She is alert and oriented to person, place, and time. Cranial Nerves: No cranial nerve deficit. Motor: No abnormal muscle tone. Coordination: Coordination normal. Deep Tendon Reflexes: Reflexes are normal and symmetric. Psychiatric: Behavior: Behavior normal. Thought Content: Thought content normal. Procedures Imaging Results CT RENAL STONE STUDY (ABDOMEN AND PELVIS W/O CONTRAST) (Final result) Result time 03/12/21 10:53:47 Final result by Keegan Valdes MD (03/12/21 10:53:47) Impression: IMPRESSION: No acute finding. Narrative: EXAM DESCRIPTION: CT RENAL STONE STUDY (ABDOMEN AND PELVIS W/O CONTRAST) REASON FOR STUDY: Acute left flank pain TECHNIQUE: CT scan of the abdomen and pelvis performed without intravenous and oral contrast using helical scanning technique. Reconstructed coronal and sagittal MPR images reviewed. All images stored on PACS. Automated exposure control was used as a dose optimization technique for this examination. COMPARISON: 09/20/2018 FINDINGS: The sensitivity for detection of visceral lesions is diminished without the use of intravenous contrast. LOWER CHEST: No significant pulmonary abnormalities. No effusion. LIVER: Normal size. No identified cystic or solid masses. GALLBLADDER: Unremarkable gallbladder BILE DUCTS: No intrahepatic or extrahepatic ductal dilatation. SPLEEN: Normal size. No focal lesions. PANCREAS: No identified cystic or solid masses. No significant calcifications. No adjacent inflammation or peripancreatic fluid collections. Pancreatic duct not dilated. ADRENALS: Normal. KIDNEYS/URINARY TRACT: No identified significant cystic or solid masses. No stones. No hydronephrosis or hydroureter. Urinary bladder is unremarkable. GI: No dilated bowel loops. No obvious wall thickening. Normal appendix. No significant diverticular disease. PERITONEUM: No ascites or free air. RETROPERITONEUM: No mass or adenopathy. REPRODUCTIVE: No significant abnormality. VASCULATURE: No abdominal aortic aneurysm. MUSCULOSKELETAL: No significant abnormality. OTHER: No other abnormality. THIS IS AN ELECTRONICALLY VERIFIED FINAL REPORT 03/12/2021 10:50 AM - Electronically signed by Keegan Valdes M.D. NC: [place] Report ID: [id number] Reading Location: [address] Labs Reviewed CMP (COMPREHENSIVE METABOLIC PANEL) - Abnormal; Notable for the following components: Result Value CREATININE, BLOOD 0.56 (*) All other components within normal limits URINALYSIS REFLEX IF INDICATED BY ABNORMAL RESULTS COMPLETE BLOOD COUNT (CBC) WITH DIFF Narrative: The following orders were created for panel order CBC with Diff [id number]. Procedure Abnormality Status --------- ------ CBC with Auto Differential[[id number]] Final result Please view results for these tests on the individual orders. EXTRA TUBES Narrative: The following orders were created for panel order Extra Tubes. Procedure Abnormality Status --------- ------ Gold Top Tube[[id number]] Please view results for these tests on the individual orders. CBC WITH AUTO DIFFERENTIAL GOLD TOP TUBE URINALYSIS REFLEX IF INDICATED BY ABNORMAL RESULTS Final Result CT RENAL STONE STUDY (ABDOMEN AND PELVIS W/O CONTRAST) Final Result IMPRESSION: No acute finding. CBC with Diff [id number] Final Result CMP (Comprehensive Metabolic Panel) Final Result Extra Tubes (Results Pending) Patient with flank pain consistent with what she recalls previous kidney stone have felt like. We will give the patient IV fluids, Zofran, ketorolac for pain. We will get a PE protocol CT. Will give IV fluids. We will get basic labs including urine and further treatment will be based on the results Coding Clinical Impression 1. Acute left flank pain The patient remained stable throughout their ED stay. My clinical impression was discussed with thepatient/caregiver. Any labs and radiology results were reviewed. Questions were addressed as completely as possible given the information available at present. The therapeutic plan was discussed, inst ructions were given and the importance of primary care follow up was stressed and encouraged. The patient/caregiver voiced understanding of the plan, indications to return, and the need for follow up. New Medications: New Prescriptions DICLOFENAC (VOLTAREN) 50 MG TABLET DELAYED RESPONSE Take 1 Tablet by mouth 3 times daily. ONDANSETRON (ZOFRAN-ODT) 4 MG TABLET DISPERSIBLE Take 1 Tablet by mouth every 8 hours as needed forNausea - 1st line. I have advised the patient to follow-up with: John Méndez MD [address] [address] In 2 days Dispostion: Discharge * Barbara Hermosillo RN - 03/12/2021 8:52 AM CDT Patient presents ambulatory to triage with complaints of left flank pain onset two days ago. Urinary hesitancy and dysuria present. Denies any known fevers. Currently afebrile. BP 234/116 after takentwice in triage. documented in this encounter Plan of Treatment Upcoming Encounters Date Type Department Care Team (Late st Contact Info) Description 11/02/2024 8:15 AM FICTION AND NONFICTION AUTHOR Office Visit [facility] [address] [place] [address] Dakota Fabian, CLINICAL FELLOW, VEGETABLE FARMWORKER [address] [address] 11/26/2024 11:30 AM FICTION AND NONFICTION AUTHOR Office Visit [facility] [address] [place] [address] Maggie Tolentinoe, PAC [address] [place] [address] documented as of this encounter Procedures Procedure Name Priority Date/Time Associated Diagnosis Comments URINALYSIS REFLEX IF INDICATED BY ABNORMAL RESULTS STAT 03/12/2021 10:[address] RENAL STONE STUDY (ABDOMEN AND PELVIS W/O CONTRAST) STAT 03/12/2021 9:49 AM CDT EXTRA TUBES STAT 03/12/2021 9:11 AM CDT GOLD TOP TUBE STAT 03/12/2021 9:11 AM CDT CBC WITH AUTO DIFFERENTIAL STAT 03/12/2021 9:11 AM CDT CMP (COMPREHENSIVE METABOLIC PANEL) STAT 03/12/2021 9:11 AM CDT COMPLETE BLOOD COUNT (CBC) WITH DIFF STAT 03/12/2021 9:11 AM CDT documented in this encounter Results * URINALYSIS REFLEX IF INDICATED BY ABNORMAL RESULTS (03/12/2021 10:13 AM CDT) Pathologist [facility] SPECIFIC GRAVITY 1.010 1.003 - 1.030 03/12/2021 10:44 AM CDT [facility] URINE PH 8.0 5.0 - 9.0 03/12/2021 10:44 AM CDT [facility] WBC ESTERASE Negative Negative 03/12/2021 10:44 AM CDT [facility] NITRITE Negative Negative 03/12/2021 10:44 AM CDT [facility] PROTEIN, RANDOM URINE Negative Negative 03/12/2021 10:44 AM CDT [facility] URINE GLUCOSE, QUAL Negative Negative 03/12/2021 10:44 AM CDT [facility] URINE KETONES Negative Negative 03/12/2021 10:44 AM CDT [facility] UROBILINOGEN Normal Normal mg/dL 03/12/2021 10:44 AM CDT [facility] URINE BILIRUBIN Negative Negative 10:44 AM CDT [facility] URINE BLOOD Negative Negative marjorie/ul 03/12/2021 10:44 AM CDT [facility] URINALYSIS COLOR Yellow 03/12/20 10:44 AM CDT [facility] URINALYSIS CLARITY Clear 03/12/2021 10:44 AM CDT [facility] Urine URINE SPECIMEN COLLECTION, CLEAN CATCH / Unknown Non-Phlebotomy Collection / Unknown 03/12/2021 10:13 AM CDT 03/12/2021 10:36 AM CDT Kenn Ibarra MD URINE ORDERABLES Final Result [facility] [address] [place] [address] * CT RENAL STONE STUDY (ABDOMEN AND PELVIS W/O CONTRAST) (03/12/2021 9:49 AM CDT) Anatomical Region Laterality Modality Abdomen N/A Computed Tomogra phy 03/12/2021 10:5 0 AM CDT Impressions 03/12/2021 10:53 AM CDT IMPRESSION: ?? No acute finding. Narrative 03/12/2021 10:53 AM CDT EXAM DESCRIPTION: ?? CT RENAL STONE STUDY (ABDOMEN AND PELVIS W/O CONTRAST) REASON FOR STUDY: ?? Acute left flank pain TECHNIQUE: ??CT scan of the abdomen and pelvis performed without intravenous and ?? oral contrast using helical scanning technique. Reconstructed coronal and sagittal MPR images reviewed. All images stored on PACS. ??Automated exposure control was used as a dose optimization technique for this examination. COMPARISON: ?? 09/20/2018 FINDINGS: ??The sensitivity for detection of visceral lesions is diminished without the use of intravenous contrast. LOWER CHEST: ??No significant pulmonary abnormalities. No effusion. LIVER: ??Normal size. ??No identified cystic or solid masses. GALLBLADDER: ??Unremarkable gallbladder BILE DUCTS: ??No intrahepatic or extrahepatic ductal dilatation. SPLEEN: ??Normal size. ??No focal lesions. PANCREAS: ??No identified cystic or solid masses. ??No significant calcifications. No adjacent inflammation or peripancreatic fluid collections. Pancreatic duct not dilated. ADRENALS: ??Normal. KIDNEYS/URINARY TRACT: ??No identified significant cystic or solid masses. No stones. No hydronephrosis or hydroureter. ??Urinary bladder is unremarkable. GI: ??No dilated bowel loops. No obvious wall thickening. ??Normal appendix. ??No significant diverticular disease. PERITONEUM: ??No ascites or free air. RETROPERITONEUM: ??No mass or adenopathy. REPRODUCTIVE: ??No significant abnormality. VASCULATURE: ??No abdominal aortic aneurysm. MUSCULOSKELETAL: ??No significant abnormality. OTHER: ??No other abnormality. THIS IS AN ELECTRONICALLY VERIFIED FINAL REPORT 03/12/2021 10:50 AM - Electronically signed by Keegan Valdes M.D. NC: [place] D: ??03/12/2021 10:50 AM T: ??03/12/2021 10:50 AM Report ID: [id number] Reading Location: ??[id number] Procedure Note Keegan Valdes MD - 03/12/2021 EXAM DESCRIPTION: CT RENAL STONE STUDY (ABDOMEN AND PELVIS W/O CONTRAST) REASON FOR STUDY: Acute left flank pain TECHNIQUE: CT scan of the abdomen and pelvis performed without intravenous and oral contrast using helical scanning technique. Reconstructed coronal and sagittal MPR images reviewed. All images stored on PACS. Automated exposure control was used as a dose optimization technique for this examination. COMPARISON: 09/20/2018 FINDINGS: The sensitivity for detection of visceral lesions is diminished without the use of intravenous contrast. LOWER CHEST: No significant pulmonary abnormalities. No effusion. LIVER: Normal size. No identified cystic or solid masses. GALLBLADDER: Unremarkable gallbladder BILE DUCTS: No intrahepatic or extrahepatic ductal dilatation. SPLEEN: Normal size. No focal lesions. PANCREAS: No identified cystic or solid masses. No significant calcifications. No adjacent inflammation or peripancreatic fluid collections. Pancreatic duct not dilated. ADRENALS: Normal. KIDNEYS/URINARY TRACT: No identified significant cystic or solid masses. No stones. No hydronephrosis or hydroureter. Urinary bladder is unremarkable. GI: No dilated bowel loops. No obvious wall thickening. Normal appendix. No significant diverticular disease. PERITONEUM: No ascites or free air. RETROPERITONEUM: No mass or adenopathy. REPRODUCTIVE: No significant abnormality. VASCULATURE: No abdominal aortic aneurysm. MUSCULOSKELETAL: No significant abnormality. OTHER: No other abnormality. THIS IS AN ELECTRONICALLY VERIFIED FINAL REPORT 03/12/2021 10:50 AM - Electronically signed by Keegan Valdes M.D. NC: [place] Report ID: [id number] Reading Location: [place] [address] IMPRESSION: No acute finding. us Kenn Ibarra MD IMG CT ORDERABLES Final Result * Gold Top Tube (03/12/2021 9:11 AM CDT) Blood No Phlebotomy Charged / Unknown 03/12/2021 9:11 AM CDT 03/13/2021 9:11 AM CDT us Kenn Ibarra MD CHEMISTRY ORDERABLES Final Resu lt [facility] [address] [place] [address] * CBC with Auto Differential (03/12/2021 9:11 AM CDT) WBC 6.46 4.00 - 12.00 10(3)/mcL 03/12/2021 9:30 AM CDT [facility] RBC 4.59 3.80 - 5.30 10(6)/mcL 03/12/2021 9:30 AM CDT [facility] HEMOGLOBIN (HGB) 12.9 12.0 - 15.8 g/dL 03/12/2021 9:30 AM CDT [facility] HEMATOCRIT (HCT) 41.0 36.0 - 47.0 % 03/12/2021 9:30 AM CDT [facility] MCV 89.3 82.0 - 96.0 fL 03/12/2021 9:30 AM CDT [facility] MCH 28.1 26.0 - 34.0 pg 03/12/2021 9:30 AM CDT [facility] MCHC 31.5 31.0 - 36.0 g/dL 03/12/2021 9:30 AM CDT [facility] PLATELET COUNT 355 140 - 440 10(3)/mcL 03/12/2021 9:30 AM CDT [facility] RDW 13.4 11.8 - 15.5 % 03/12/2021 9:30 AM CDT [facility] MPV 10.4 9.7 - 12.4 fL 03/12/2021 9:30 AM CDT [facility] NEUTROPHILS 63.9 47.0 - 73.0 % 03/12/2021 9:30 AM CDT [facility] LYMPHOCYTES 23.4 18.0 - 42.0 % 03/12/2021 9:30 AM CDT [facility] MONOCYTES 7.9 4.0 - 12.0 % 03/12/2021 9:30 AM CDT [facility] EOSINOPHILS 4.0 0.0 - 5.0 % 03/12/2021 9:30 AM CDT [facility] BASOPHILS 0.8 0.0 - 1.0 % 03/12/2021 9:30 AM CDT [facility] ABSOLUTE NEUTROPHILS 4.13 1.60 - 7.70 10(3)/mcL 03/12/2021 9:30 AM CDT [facility] ABSOLUTE LYMPHOCYTES 1.51 1.30 - 3.20 10(3)/mcL 03/12/2021 9:30 AM CDT [facility] ABSOLUTE MONOCYTES 0.51 0.20 - 1.00 10(3)/mcL 03/12/2021 9:30 AM CDT [facility] ABSOLUTE EOSINOPHIL 0.26 0.00 - 0.40 10(3)/mcL 03/12/2021 9:30 AM CDT [facility] ABSOLUTE BASOPHILS 0.05 0.00 - 0.10 10(3)/mcL 03/12/2021 9:30 AM CDT [facility] NRBC PER 100 WBC 0 03/12/20 9:30 AM CDT [facility] Blood Venipuncture / Unknown 03/12/2021 9:11 AM CDT 03/12/2021 9:25 AM CDT us Kenn Ibarra MD HEMATOLOGY ORDERABLES Final Res ult [facility] [address] [place] [address] * (ABNORMAL) CMP (Comprehensive Metabolic Panel) (03/12/2021 9:11 AM CDT) SODIUM 140 136 - 144 mmol/L 03/12/2021 9:50 AM CDT [facility] POTASSIUM 3.9 3.5 - 5.1 mmol/L 03/12/2021 9:50 AM CDT [facility] CHLORIDE 102 100 - 110 mmol/L 03/12/2021 9:50 AM CDT [facility] CO2, VENOUS 30 22 - 32 mmol/L 03/12/2021 9:50 AM CDT [facility] ANION GAP 11.9 8.0 - 20.0 mmol/L 03/12/2021 9:50 AM CDT [facility] GLUCOSE 82 70 - 99 mg/dL 03/12/2021 9:50 AM CDT [facility] BUN 8 6 - 20 mg/dL 03/12/2021 9:50 AM CDT [facility] CREATININE, BLOOD 0.56(L) 0.60 - 1.10 mg/dL 03/12/2021 9:50 AM CDT [facility] BUN/CREATININE RATIO 14 12 - 20 ratio 03/12/2021 9:50 AM CDT [facility] TOTAL PROTEIN 6.7 6.0 - 8.3 g/dL 03/12/2021 9:50 AM CDT [facility] ALBUMIN 3.9 3.5 - 5.2 g/dL 03/12/2021 9:50 AM CDT [facility] Comment: The colormetric methods used for the determination of Albumin may lead to falsely elevated test results in patients suffering from renal failure or insufficiency due to interference with other proteins. A/G RATIO 1.4 1.0 - 2.0 03/12/2021 9:50 AM CDT [facility] CALCIUM 9.1 8.9 - 10.3 mg/dL 03/12/2021 9:50 AM CDT [facility] T BILI 0.3 <=1.2 mg/dL 03/12/2021 9:50 AM CDT [facility] SGOT (AST) 14 <=32 U/L 03/12/2021 9:50 AM CDT [facility] SGPT (ALT) 14 <=41 U/L 03/12/2021 9:50 AM CDT [facility] ALKALINE PHOSPHATASE 77 35 - 105 U/L 03/12/2021 9:50 AM CDT [facility] GFR, EST. NONAFRICAN >60 >=60 03/12/2021 9:50 AM CDT [facility] GFR, EST. >60 >=60 021 9:50 AM CDT [facility] Comment: Creatinine Clearance is the preferred criteria for selecting drug dose adjustments in renally impaired patients. ??The GFR is provided as additional pertinent clinical information. GFR is reported in mL/min/1.73 sq m. Blood Venipuncture / Unknown 03/12/2021 9:11 AM CDT 03/12/2021 9:24 AM CDT us Kenn Ibarra MD CHEMISTRY ORDERABLES Final Resu lt [facility] [address] [place] [address] documented in this encounter Visit Diagnoses Diagnosis Acute left flank pain- Primary Abdominal pain, unspecified site documented in this encounter Administered Medications Inactive Administered Medications - up to 3 most recent administrations Medication Order MAR Action Action Date Dose Rate Site 0.9 % sodium chloride solution at 999 mL/hr, Intravenous, ONCE, 1 dose, On Fri03/12/21 at 0930 New Bag 03/12/2021 9:12 AM CDT 999 mL/hr fentaNYL (PF) (SUBLIMAZE) injection 100 mcg 100 mcg, Intravenous, ONCE, 1 dose, On Fri03/12/21 at 1030 Given 03/12/2021 10:17 AM CDT 100 mcg ketorolac (TORADOL) injection 30 mg 30 mg, Intravenous, ONCE, 1 dose, On Fri03/12/21 at 0930 Given 03/12/2021 9:27 AM CDT 30 mg ondansetron (ZOFRAN) injection 4 mg 4 mg, Intravenous, ONCE, 1 dose, On Fri03/12/21 at 0930 Given 03/12/2021 9:27 AM CDT 4 mg documented in this encounter Active and Recently Administered Medications Times are shown in CDT. Scheduled Medication Order 03/10/2021 03/11/2021 03/12/2021 0.9 % sodium chloride solution (COMPLETED) at 999 mL/hr, Intravenous, ONCE, 1 dose, On Fri03/12/21 at 0930 0912 (New Bag - Prov ider: Vianney Estrella RN)1124 (Stopped - Provider: Vianney Estrella RN) fentaNYL (PF) (SUBLIMAZE) injection 100 mcg (COMPLETED) 100 mcg, Intravenous, ONCE, 1 dose, On Fri03/12/21 at 1030 1017 (Given - Provid er: Vianney Estrella RN) ketorolac (TORADOL) injection 30 mg (COMPLETED) 30 mg, Intravenous, ONCE, 1 dose, On Fri03/12/21 at 0930 0927 (Given - Provid er: Vianney Estrella RN) ondansetron (ZOFRAN) injection 4 mg (COMPLETED) 4 mg, Intravenous, ONCE, 1 dose, On 03/12/21 at 0930 0927 (Given - Provid er: Vianney Estrella RN) documented in this encounter Additional Health Concerns Infection Onset Date Last Indicated Resolved Time MRSA 03/30/2020 03/30/2020 Assessment Noted Time PHQ-9 Depression Total Score: 0 12/15/19 8:53 AM FICTION AND NONFICTION AUTHOR documented as of this encounter Care Teams Machine Operator Relationship Specialty Start Date End Date John Méndez MD PCP - General Family Medicine 09/28/19 04/26/24 documented as of this encounter
--- OUTSIDE RECORDS SUMMARY | 2024-10-20 03:54 | XMS_ITS | Encounter Summary ---
Author Organization [facility] Address [address] [place] [address] Phone Care Team Providers Care Reducing Machine Operator Name Role Phone John Méndez MD Primary Care Provider [phone] Reason for Visit * Reason Comments Hyperlipidemia 4 week f/u Encounter Details Date Type Department Care Team (Late st Contact Info) Description 12/14/2020 8:45 AM DIVISION OPERATIONS SPECIALIST Office Visit [facility] [address] [place] [address] John Méndez MD [address] [place] [address] Moderate episode of recurrent major depressive disorder (HCC) (Primary Dx); Anxiety Discharge Disposition: Discharged to home or Selfcare [...] 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 No / Unsure 12/14/2020 8:23 AM DIVISION OPERATIONS SPECIALIST documented as of this encounter Last Filed Vital Signs Vital Sign Reading Time Taken Comments Blood Pressure 126/74 12/14/2020 8:51 AM DIVISION OPERATIONS SPECIALIST Pulse 87 12/14/2020 8:51 AM DIVISION OPERATIONS SPECIALIST Temperature 36.4 ??C (97.6 ??F) 12/14/2020 8:51 AM CS T Respiratory Rate 16 12/14/2020 8:51 AM DIVISION OPERATIONS SPECIALIST Oxygen Saturation 100% 12/14/2020 8:51 AM DIVISION OPERATIONS SPECIALIST Inhaled Oxygen Concentration - - Weight 95.2 kg (209 lb 12.8 oz) 12/14/2020 8:51 AM DIVISION OPERATIONS SPECIALIST Height 160 cm (5' 3 ) 12/14/2020 8:51 AM DIVISION OPERATIONS SPECIALIST Body Mass Index 37.16 12/14/2020 8:51 AM DIVISION OPERATIONS SPECIALIST documented in this encounter Progress Notes * Marline Blake - 12/14/2020 8:45 AM CST Melinda Olmedo is a 45 y.o. female with current BMI: Body mass index is 37.16 kg/m??. Interventions discussed including: encourage daily physical activity and well- balanced diet. SION OPERATIONS SPECIALIST * Marline Blake - 12/14/2020 8:45 AM CST Melinda Olmedo, 45 y.o., female is here for Hyperlipidemia (4 week f/u ) Medication Refills: Patient reports/denies need for medication refills. Orders Pended: no Requested Prescriptions No prescriptions requested or ordered in this encounter Home Medications Medication Sig Start Date End Date Taking? Authorizing Provider Acetaminophen-Codeine 300-60 MG Tablet TAKE 1 TABLET BY MOUTH 2 TIMES DAILY NEEDED FOR MODERATE OR MORE SEVERE PAIN. 11/22/20 Yes John Méndez MD albuterol (PROVENTIL/VENTOLIN) 1.25 [...] TAKE 1 TABLET BY MOUTH EVERY DAY 10/12/20 Yes John Méndez MD atorvastatin (LIPITOR) 20 MG Tablet Take 1 Tab by mouth every evening. 09/28/19 Yes John Méndez MD buPROPion (WELLBUTRIN) 300 MG TABLET SR 24 HR XL tablet Take 300 mg by mouth daily. 06/14/19 Yes Adolfo Sotomayor MD busPIRone (BUSPAR) 15 MG Tablet Take 1 Tab by mouth 2 times daily. 12/02/19 Yes John Méndez MD carvedilol (COREG) 6.25 MG Tablet Take 1 Tab by mouth 2 times daily. 09/28/19 Yes John Méndez MD cetirizine (ZYRTEC) 10 MG Tablet Take 1 Tab by mouth daily. 09/28/19 Yes John Méndez MD escitalopram (LEXAPRO) 10 MG Tablet Take 1 Tab by mouth daily. 11/15/20 Yes John Méndez MD hydroCHLOROthiazide 25 MG Tablet Take 1 Tab by mouth daily. 09/28/19 Yes John Méndez MD ibuprofen (MOTRIN) 800 MG Tablet as needed. 06/15/19 Yes Adolfo Sotomayor MD losartan (COZAAR) 25 MG Tablet Take 25 mg by mouth daily. 07/29/20 Yes Adolfo Sotomayor MD montelukast (SINGULAIR) 10 MG Tablet Take 10 mg by mouth daily. 06/14/19 Yes Adolfo Sotomayor MD omeprazole (PriLOSEC) 20 MG CAPSULE DELAYED RELEASE omeprazole 20 mg capsule,delayed release TAKE ONE CAPSULE BY MOUTH TWICE A DAY BEFORE BREAKFAST AND DINNER Yes Adolfo Sotomayor MD tiZANidine (ZANAFLEX) 2 [...] Smoker ??? Smokeless tobacco: Never Used Substance Use Topics ??? Alcohol use: No ??? Drug use: No Smoking Cessation Counseling Given: no Health Care Maintenance: Health Maintenance Due Topic Date Due ??? SARS-COV-2 Immunization (1 of 2) 1991 ??? Pap Smear 1996 ??? Influenza Immunization (1) 06/13/2020 Orders Pended: no The following BPA's have been addressed with the patient today: BMI, Flu, Pap and Depression SION OPERATIONS SPECIALIST * Tim Mckeon - 12/14/2020 8:45 AM CST Subjective: Chief Complaint Patient presents with ??? Hyperlipidemia 4 week f/u History of Present Illness: Melinda Olmedo is a 45 y.o. female who presents today for a 4-week followup. Patient was seen last on 11/15/2020, at that time, she did get medication refills and was also started on a new antidepressant because she was feeling overwhelmed. She was started on Lexapro 10 mg daily and stopped on her Zoloft. She also has been using BuSpar. We did also get labs done on her at that time and also a urine drug screen as she had been using Tylenol with codeine for her chronic pain. Patient had a normal vitamin B12, decreased vitamin D, normal TSH, and free T4. Her lipid panel was normal. CMP was normal, and CBC was normal. Her UA was normal except for protein and some small amount of blood. She did have the urine drug screen which showed the presence of fentanyl and did not show any Lexapro of course. She also showed bupropion and codeine and also had sertraline present, but this was in a small amount as well as the fentanyl which we are not sure exactly how she had the fentanyl in her system that she was very nervous when the nurse has called her about her lab work. She mentions that shedoes not smoke but states that she was using CBD in the past but not currently. Patient's medications, allergies, past medical, surgical, social and family histories were reviewedand updated as appropriate. Review of Systems: GENERAL: Denies fevers, chills, unintentional weight loss or gain, and fatigue. LUNGS: Denies cough, shortness of breath, and wheezing. HEART: Denies chest pain and palpitations. PSYCHIATRIC: Reports anxiety and depression. Objective: BP 126/74 Pulse 87 Temp 97.6 ??F (36.4 ??C) (Temporal) Resp 16 Ht 5' 3 Wt 209 lb 12.8 oz LMP (LMP Unknown) Comment: full SpO2 100% BMI 37.16 kg/m?? Physical Exam: GENERAL: well-developed, well-nourished, and no acute distress. NECK: supple, no thyromegaly, and no cervical LAD. LUNGS: clear to auscultation bilaterally, respiratory effort normal, and no wheezes, rales or rhonchi. HEART: regular rate and rhythm, S1, S2, and no murmurs. ABDOMEN: soft, non-tender, no rebound, and no HSM. EXTREMITIES: no edema and peripheral pulses intact. PSYCHIATRIC: She has depressed mood and anxious affect at this time. She is talking quite quickly and is very animated today. She denies any hallucinations. She does have some inattention with all the stress going on at this time. Normal memory and judgement at this time. Past labs, radiology, and medical records reviewed with patient/caregiver. All questions answered. Assessment/Plan: Melinda was seen today for hyperlipidemia. Diagnoses and all orders for this visit: Moderate episode of recurrent major depressive disorder (HCC) Patient is given increase in her Lexapro up to 20 mg one tablet daily. She is to continue on the Wellbutrin as well as the BuSpar also. She also is given refill on her Tylenol with codeine today as this is due on the 12/20/2020, so we sent this and to be filled on 12/20/2020. Anxiety Continue with BuSpar at this point. She did not think that hydroxyzine helped her, and she is not able to take benzodiazepine secondary to the Tylenol with codeine. She also did have her drug screen done last time which showed a small amount of fentanyl, and we are not exactly sure how she got this, and she is very adamant that she does not use this. So, we will continue her on her drug contract at this time. Other orders - Acetaminophen-Codeine 300-60 MG Tablet; Take 1 Tablet by mouth 2 times daily as needed for Other (moderate to severe pain). - escitalopram (LEXAPRO) 20 MG Tablet; Take 1 Tablet by mouth daily. Follow up: Return in about 4 weeks (around 01/11/2021). Patient given verbal and/or written education. She indicated understanding and agreed to the treatment plan. She will call the office or seek immediate medical attention if present symptoms worsen ornew ones develop. Patient gave verbal consent to use virtual scribe/wrapper hand service, Asaf, understanding ourvisit was being recorded for purposes of improving efficiency of documentation and enhancing clinicexperience for patients. Transcribed by Asaf at 11:14 AM on 12/14/2020. SION OPERATIONS SPECIALIST documented in this encounter Plan of Treatment Upcoming Encounters Date Type Department Care Team (Late st Contact Info) Description 11/02/2024 8:15 AM DIVISION OPERATIONS SPECIALIST Office Visit [facility] [address] [place] [address] Dakota Fabian, THOM, NOZZLE AND SLEEVE WORKER [address] [address] 11/26/2024 11:30 AM DIVISION OPERATIONS SPECIALIST Office Visit [facility] [address] [place] [address] Maggie Tolentino, PAC [address] [place] [address] documented as of this encounter Visit Diagnoses Diagnosis Moderate episode of recurrent major depressive disorder (HCC)- Primary Anxiety Anxiety state, unspecified documented in this encounter Additional Health Concerns Infection Onset Date Last Indicated Resolved Time MRSA 03/30/2020 03/30/2020 Assessment Noted Time PHQ-9 Depression Total Score: 0 12/15/19 8:53 AM DIVISION OPERATIONS SPECIALIST documented as of this encounter Care Teams Reducing Machine Operator Relationship Specialty Start Date End Date John Méndez MD PCP - General Family Medicine 09/28/19 04/26/24 documented as of this encounter
--- OUTSIDE RECORDS SUMMARY | 2024-10-20 03:54 | XMS_ITS | Encounter Summary ---
Author Organization [facility] Address [address] [place] [address] Phone Care Team Providers Care Ship Construction Teacher Name Role Phone John Méndez MD Primary Care Provider [phone] Reason for Referral * Consult, Test & Initiate Treatment (Routine) - Closed Specialty Diagnoses / Procedures Referred By Magui t Referred To Contact Diagnoses Encounter for screening for cervical cancer John Méndez MD Phone: tel: fax: Provider, Not On File [place] Referral ID Status Reason Start Date Expiration Date Visits Re quested Visits Authorized [id number] Closed 03/14/2021 1 1 Scheduling Instructions Melinda is being referred to [facility] or other specialist in patient's insurance network for cervical cancer screen. See below for Melinda's current medications, allergies and problem list. CURRENT MEDS: Current Outpatient Medications: acetaminophen-codeine (TYLENOL #3) 300-30 MG Tablet, TAKE 1 TABLET BY MOUTH 3 TIMES DAILY NEEDED FOR MODERATE OR MORE SEVERE PAIN., Disp: 90 Tablet, Rfl: 0 albuterol (PROVENTIL/VENTOLIN) 1.25 MG/3ML Nebulizer Soln, take 3 mL by inhalation every 4 hours as needed for Wheezing or Cough., Disp: 90 Vial, Rfl: 3 albuterol 108 (90 Base) MCG/ACT Aerosol Solution, TAKE 2 PUFFS BY INHALATION EVERY 4 HOURS NEEDED FOR WHEEZING OR COUGH., Disp: 17 Inhaler, Rfl: 2 amLODIPine (NORVASC) 10 MG Tablet, Take 10 mg by mouth daily., Disp: , Rfl: atorvastatin (LIPITOR) 20 MG Tablet, Take 1 Tab by mouth every evening., Disp: 90 Tab, Rfl: 3 buPROPion (WELLBUTRIN) 300 MG TABLET SR 24 HR XL tablet, Take 300 mg by mouth daily., Disp: , Rfl: 2 cetirizine (ZYRTEC) 10 MG Tablet, Take 1 Tab by mouth daily., Disp: 90 Tab, Rfl: 3 diclofenac (VOLTAREN) 50 MG Tablet Delayed Response, Take 1 Tablet by mouth 3 times daily. (Patient not taking: Reported on 03/14/2021), Disp: 90 Tablet, Rfl: 0 escitalopram (LEXAPRO) 20 MG Tablet, TAKE 1 TABLET BY MOUTH EVERY DAY, Disp: 90 Tablet, Rfl: 1 montelukast (SINGULAIR) 10 MG Tablet, Take 10 mg by mouth daily., Disp: , Rfl: 3 omeprazole (PriLOSEC) 20 MG CAPSULE DELAYED RELEASE, omeprazole 20 mg capsule,delayed release TAKE ONE CAPSULE BY MOUTH TWICE A DAY BEFORE BREAKFAST AND DINNER (Patient not taking: Reported on 03/14/2021), Disp: , Rfl: ondansetron (ZOFRAN-ODT) 4 MG TABLET DISPERSIBLE, Take 1 Tablet by mouth every 8 hours as needed for Nausea - 1st line. (Patient not taking: Reported on 03/14/2021), Disp: 15 Tablet, Rfl: 0 tiZANidine (ZANAFLEX) 2 MG Capsule, Take 2 mg by mouth nightly., Disp: , Rfl: No current facility-administered medications for this visit. ALLERGIES: -- Penicillins -- Rash and Itching -- Reaction: Rash, , PROBLEM LIST: Patient Active Problem List: Sacroiliac joint dysfunction of both sides Cervicalgia Hypertensive disorder Hyperlipidemia Chronic sinusitis Degenerative lumbar disc Depression Anxiety Gastroesophageal reflux disease History of methicillin resistant Staphylococcus aureus infection Obstructive sleep apnea syndrome Restless legs syndrome Hypersomnia Reason for Visit * Reason Comments Cough Nasal Congestion Encounter Details Date Type Department Care Team (Late st Contact Info) Description 03/14/2021 4:00 PM CDT [facility] [place] [address] John Méndez MD [address] [place] [address] Acute non-recurrent maxillary sinusitis (Primary Dx); Encounter for screening for cervical cancer Discharge Disposition: Discharged to home or Selfcare [...] 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 No / Unsure 03/14/2021 8:30 AM CDT documented as of this encounter Last Filed Vital Signs Vital Sign Reading Time Taken Comments Blood Pressure 144/82 03/14/2021 3:51 PM CDT Pulse 87 03/14/2021 3:51 PM CDT Temperature 36.6 ??C (97.9 ??F) 03/14/2021 3:51 PM CD T Respiratory Rate 18 03/14/2021 3:51 PM CDT Oxygen Saturation 99% 03/14/2021 3:51 PM CDT Inhaled Oxygen Concentration - - Weight 101.9 kg (224 lb 11.2 oz) 03/14/2021 3:51 PM CDT Height 157.5 cm (5' 2 ) 03/14/2021 3:51 PM CDT Body Mass Index 41.1 03/14/2021 3:51 PM CDT documented in this encounter Progress Notes * Antonieta Ascencio RMA - 03/14/2021 4:00 PM CDT Melinda Olmedo, 45 y.o., female is here for Cough and Nasal Congestion Medication Refills: Patient reports/denies need for medication refills. Orders Pended: no Requested Prescriptions No prescriptions requested or ordered in this encounter Home Medications Medication Sig Start Date End Date Taking? Authorizing Provider acetaminophen-codeine (TYLENOL #3) 300-30 MG Tablet TAKE 1 TABLET BY MOUTH 3 TIMES DAILY NEEDED FOR MODERATE OR MORE SEVERE PAIN. 02/21/21 Yes John Méndez MD albuterol (PROVENTIL/VENTOLIN) 1.25 [...] been addressed with the patient today: Pap * John Méndez MD - 03/14/2021 4:00 PM CDT Subjective: HPI Melinda Olmedo, 45 y.o. female, is here for possible sinus infection. Pt notes that she has had these symptoms for over 10 days. She has a lot of facial pressure When she bends over this is all in her face. She also has coughing. She is productive with green mucous. She has sore throat and post nasal drainage. No coughing fits. Does not think that she was wheezing. Denies diarrhea, no vomiting,no shortness of breath, has tried robitussin, singulair, and zyrtec. She notes runny nose. No sneezing. Headache. Past Medical History Positives Diagnosis Date ??? [...] file Occupational History ??? 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 Smoking status: Never Smoker [...] determinant risk not applicable to this patient. Current Outpatient Medications on File Prior to Visit Medication Sig Dispense Refill ??? albuterol (PROVENTIL/VENTOLIN) 1.25 MG/3ML Nebulizer Soln [...] 1 Tablet by mouth 3 times daily. (Patient not taking: Reported on 03/14/2021) 90 Tablet 0 ??? escitalopram (LEXAPRO) 20 MG Tablet TAKE 1 TABLET BY MOUTH EVERY DAY 90 Tablet 1 ??? montelukast (SINGULAIR) 10 MG Tablet Take 10 mg by mouth daily. 3 ??? omeprazole (PriLOSEC) 20 MG CAPSULE DELAYED RELEASE omeprazole 20 mg capsule,delayed release TAKE ONE CAPSULE BY MOUTH TWICE A DAY BEFORE BREAKFAST AND DINNER (Patient not taking: Reported on 03/14/2021) ??? ondansetron (ZOFRAN-ODT) 4 MG TABLET DISPERSIBLE Take 1 Tablet by mouth every 8 hours as neededfor Nausea - 1st line. (Patient not taking: Reported on 03/14/2021) 15 Tablet 0 ??? tiZANidine (ZANAFLEX) 2 MG Capsule Take 2 mg by mouth nightly. No current facility-administered medications on file prior [...] Paternal Grandfather ??? Paranoid behavior Paternal Grandfather Review of Systems Constitutional: Positive for malaise/fatigue. Negative for chills, diaphoresis, fever and weight loss. HENT: Positive for congestion, sinus pain and sore throat. Negative for ear discharge, ear pain, hearing loss, nosebleeds and tinnitus. Eyes: Negative for blurred vision, double vision, photophobia, pain, discharge and redness. Respiratory: Positive for cough, sputum production and shortness of breath. Negative for hemoptysis, wheezing and stridor. Cardiovascular: Negative for chest pain. Skin: Negative for itching and rash. Neurological: Positive for headaches. Negative for dizziness. Objective: BP 144/82 (BP Location: Right Arm, BP Position: Sitting, BP Cuff Size: Regular) Pulse 87 Temp 97.9 ??F (36.6 ??C) (Temporal) Resp 18 Ht 5' 2 (1.575 m) Wt 224 lb 11.2 oz (101.9 kg) LMP (LMP Unknown) Comment: full SpO2 99% BMI 41.10 kg/m?? Physical Exam Vitals and nursing note reviewed. Constitutional: General: She is not in acute distress. Appearance: Normal appearance. She is obese. She is not ill-appearing. HENT: Right Ear: Tympanic membrane, ear canal and external ear normal. There is no impacted cerumen. Left Ear: Tympanic membrane, ear canal and external ear normal. There is no impacted cerumen. Nose: Congestion and rhinorrhea present. Right Turbinates: Enlarged and swollen. Left Turbinates: Enlarged and swollen. Right Sinus: Frontal sinus tenderness present. Left Sinus: Frontal sinus tenderness present. Mouth/Throat: Mouth: Mucous membranes are moist. Pharynx: Oropharynx is clear. Posterior oropharyngeal erythema present. No oropharyngeal exudate. Eyes: General: No scleral icterus. Right eye: No discharge. Left eye: No discharge. Extraocular Movements: Extraocular movements intact. Conjunctiva/sclera: Conjunctivae normal. Pupils: Pupils are equal, round, and reactive to light. Cardiovascular: Rate and Rhythm: Normal rate and regular rhythm. Pulses: Normal pulses. Heart sounds: Normal heart sounds. No murmur heard. No friction rub. No gallop. Pulmonary: Effort: Pulmonary effort is normal. Breath sounds: Normal breath sounds. No wheezing, rhonchi or rales. Musculoskeletal: Cervical back: Normal range of motion and neck supple. Tenderness present. Lymphadenopathy: Cervical: Cervical adenopathy present. Neurological: Mental Status: She is alert. Requested Number of Results for Past 12 Months Component Units 03/12/21 0911 11/16/20 0928 11/16/20 0928 WBC 10(3)/mcL 6.46 < > 5.85 HEMOGLOBIN g/dL 12.9 < > 12.7 HEMATOCRIT % 41.0 < > 41.5 PLATELETCNT 10(3)/mcL 355 < > 380 CHOLESTEROL mg/dL -- -- 171 TRIGLYCRIDES mg/dL -- -- 144 LDL mg/dL -- -- 90 SGPTALT U/L 14 < > 14 SGOTAST U/L 14 < > 15 SODIUM mmol/L 140 < > 140 POTASSIUM mmol/L 3.9 < > 4.0 CHLORIDE mmol/L 102 < > 103 CREATININE mg/dL 0.56* < > 0.65 BUN mg/dL 8 < > 11 CO2VEN mmol/L 30 < > 27 TSH mIU/L -- -- 2.910 GLUCOSE mg/dL 82 < > 90 < > = values in this interval not displayed. Assessment/Plan 1. Acute non-recurrent maxillary sinusitis Pt is given zpak. She is to use her current medications for symptomatic relief. Pt is also to call if she worsens or does not improve. - azithromycin (ZITHROMAX) 250 MG Tablet; 2 tab(s) daily for 1 day, then 1 tab(s) daily for days 2-5. Dispense: 6 Tablet; Refill: 0 2. Encounter for screening for cervical cancer - EXTERNAL GYNECOLOGY REFERRAL; Future documented in this encounter Plan of Treatment Upcoming Encounters Date Type Department Care Team (Late st Contact Info) Description 11/02/2024 8:15 AM DENTAL THERAPIST [facility] [place] [facility] [place] [address] Dakota Fabian APRN, AERIAL PHOTOGRAPHER [address] [address] 11/26/2024 11:30 AM DENTAL THERAPIST [facility] [place] [facility] [place] [address] aMggie Tolentino, PAC [address] [place] [address] Scheduled Referrals Name Type Priority Associated Diagnoses Order Schedule EXTERNAL GYNECOLOGY REFERRAL Outpatient Referral Routine Encounter for screening for cervical cancer Expected: 03/14/2021, Expires: 03/14/2022 documented as of this encounter Visit Diagnoses Diagnosis Acute non-recurrent maxillary sinusitis- Primary Encounter for screening for cervical cancer documented in this encounter Additional Health Concerns Infection Onset Date Last Indicated Resolved Time MRSA 03/30/2020 03/30/2020 Assessment Noted Time PHQ-9 Depression Total Score: 0 12/15/19 21 8:53 AM DENTAL THERAPIST documented as of this encounter Care Teams Ship Construction Teacher Relationship Specialty Start Date End Date John Méndez MD PCP - General Family Medicine 09/28/19 04/26/24 documented as of this encounter
--- OUTSIDE RECORDS SUMMARY | 2024-10-20 03:54 | XMS_ITS | Encounter Summary ---
Author Organization [facility] [employer] Care Team Providers Care Mining Teacher Name Role Phone John Méndez MD Primary Care Provider [phone] Encounter Details Date Type Department Care Team (Latest Contact Info) Description 11/20/2020 Travel Social History Tobacco Use Types Packs/Day Years Used Date Smoking Tobacco: Never Smokeless Tobacco: Never Alcohol Use Standard Drinks/Week Comments No 0 (1 standard drink = 0.6 oz pur e alcohol) PHQ-2 Answer Date Recorded PHQ-2 Score 0 09/28/2019 Sexually Active Control Partners Comments Yes Male Comments No Sex and Gender Information Value Date Recorded Sex Assigned at Not on file Legal Sex Female 12:28 AM CDT Gender Identity Not on file Sexual Orientation Not on file 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 No / Unsure 11/20/2020 6:37 AM SHADE MAKER documented as of this encounter Plan of Treatment Upcoming Encounters Date Type Department Care Team (Late st Contact Info) Description 11/02/2024 8:15 AM SHADE MAKER Office Visit [facility] - Family Medicine [facility] [address] [place] [address] Dakota Fabian, SALT PLANT OPERATOR, ENDODONTIC ASSISTANT [address] [address] 11/26/2024 11:30 AM SHADE MAKER Office Visit [facility] - Family Medicine - [place] [address] [place] [address] Maggie Tolentino, PAC [address] [place] [address] documented as of this encounter Visit Diagnoses Not on filedocumented in this encounter Additional Health Concerns Infection Onset Date Last Indicated Resolved Time MRSA 03/30/2020 03/30/2020 Assessment Noted Time PHQ-9 Depression Total Score: 0 10/19/19 20 12:31 PM SHADE MAKER documented as of this encounter Care Teams Mining Teacher Relationship Specialty Start Date End Date John Méndez MD PCP - General Family Medicine 09/28/19 04/26/24 documented as of this encounter
--- OUTSIDE RECORDS SUMMARY | 2024-10-20 03:54 | XMS_ITS | Encounter Summary ---
Author Organization [facility] Address [address] [facility] 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 No / Unsure 11/20/2020 6:37 AM MICROSOFT DEVELOPER documented as of this encounter Miscellaneous Notes * Telephone Encounter - Geoff Arorafran Norton RN - 11/21/2020 1:34 PM CST Medication failed the protocol, provider to review and approve the medication order if appropriate. Requested Prescriptions Pending Prescriptions Disp Refills Acetaminophen-Codeine 300-60 MG Tablet [Pharmacy Med Name: ACETAMINOPHEN-COD #4 TABLET] 60 Tablet 0 Sig: TAKE 1 TABLET BY MOUTH 2 TIMES DAILY NEEDED FOR MODERATE OR MORE SEVERE PAIN. Not Delegated - Analgesics: Opioid Agonist Combinations Failed - 11/21/2020 12:50 PM Failed - This refill cannot be delegated Passed - Valid encounter within last 6 months Past Office Visits Recent Outpatient Visits 6 days ago Mixed hyperlipidemia [facility] John Delarosa MD 5 months ago Mild intermittent asthma without complication [facility] - John Luna MD 6 months ago Acute non-recurrent maxillary sinusitis [facility] John Delarosa MD 7 months ago Carbuncle of left axilla [facility] John Delarosa MD 11 months ago Influenza [facility] John Delarosa MD Upcoming Appointments Future Appointments In 3 weeks John Méndez MD [facility] AGRICULTURAL ENGINEERING TECHNOLOGIST - Recent and Past Visits Recent Visits Date Type Provider Dept 11/15/20 Office Visit John Méndez MD [facility] 06/09/20 Office Visit John Méndez MD [facility] 05/02/20 Office Visit John Mnédez MD [facility] 03/30/20 Office Visit John Méndez MD [facility] 12/14/19 Office Visit John Méndez MD [facility] 12/02/19 Office Visit John Méndez MD [facility] 11/02/19 Office Visit Aylin Juan APN, MIGUEL ANGEL [facility] 10/19/19 Office Visit Aylin Juan APN, PATIENT ACCESS [facility] 10/12/19 Office Visit Dakota Fabian APN, MIGUEL ANGEL [facility] 09/28/19 Office Visit John Méndez MD [facility] Showing recent visits within past 460 days with a meds authorizing provider and meeting all other requirements Future Appointments Date Type Provider Dept 12/13/20 Appointment John Méndez MD [facility] Showing future appointments within next 90 days with a meds authorizing provider and meeting all other requirements OSOFT DEVELOPER documented in this encounter Plan of Treatment Upcoming Encounters Date Type Department Care Team (Late st Contact Info) Description 11/02/2024 8:15 AM MICROSOFT DEVELOPER Office Visit [facility] [address] [place] [address] Dakota Fabian VP OF TECHNOLOGY, PATIENT ACCESS [address] [address] 11/26/2024 11:30 AM MICROSOFT DEVELOPER Office Visit [facility] [address] [place] [address] Maggie Tolentino, PAC [address] [place] [address] documented as of this encounter Visit Diagnoses Not on filedocumented in this encounter Additional Health Concerns Infection Onset Date Last Indicated Resolved Time MRSA 03/30/2020 03/30/2020 COVID - 19 09/11/2024 09/11/2024 09/11/2024 7:21 PM MICROSOFT DEVELOPER Assessment Noted Time PHQ-9 Depression Total Score: 0 10/19/19 20 12:31 PM MICROSOFT DEVELOPER documented as of this encounter Care Teams Concrete Engineering Technician Relationship Specialty Start Date End Date John Méndez MD PCP - General Family Medicine 09/28/19 04/26/24 Dakota Fabian APRN, PATIENT ACCESS #[address] [address] PCP - General Advanced Practice Nurse 04/27/24 documented as of this encounter
--- OUTSIDE RECORDS SUMMARY | 2024-10-20 03:54 | XMS_ITS | Encounter Summary ---
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 No / Unsure 01/11/2021 8:22 AM CDT documented as of this encounter Plan of Treatment Upcoming Encounters Date Type Department Care Team (Late st Contact Info) Description 11/02/2024 8:15 AM PUBLIC INFORMATION OFFICER Office Visit [facility] - Family Medicine [facility] [address] [place] [address] Dakota Fabian, DIRECTOR DIVERSITY, CHAIN MAKER [address] [address] 11/26/2024 11:30 AM PUBLIC INFORMATION OFFICER Office Visit [facility] - Family Medicine - [place] [address] [place] [address] Maggie Tolentino, PAC [address] [place] [address] documented as of this encounter Visit Diagnoses Not on filedocumented in this encounter Additional Health Concerns Infection Onset Date Last Indicated Resolved Time MRSA 03/30/2020 03/30/2020 Assessment Noted Time PHQ-9 Depression Total Score: 0 12/15/19 21 8:53 AM PUBLIC INFORMATION OFFICER documented as of this encounter Care Teams Chief Maintenance Supervisor Relationship Specialty Start Date End Date John Méndez MD PCP - General Family Medicine 09/28/19 04/26/24 documented as of this encounter
--- OUTSIDE RECORDS SUMMARY | 2024-10-20 03:54 | XMS_ITS | Encounter Summary ---
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 on file Not [...] st Contact Info) Description 11/02/2024 8:15 AM RACKER OCTAVE BOARD Office Visit [facility] - Family Medicine [facility] [address] [place] [address] Dakota Fabian, TRUCKER, AIRPLANE TECHNICIAN #[address] [address] 11/26/2024 11:30 AM RACKER OCTAVE BOARD Office Visit [facility] - Family Medicine - [place] [address] [place] [address] Maggie Tolentino, PAC [address] [place] [address] documented as of this encounter Visit Diagnoses Not on filedocumented in this encounter Additional Health Concerns Infection Onset Date Last Indicated Resolved Time MRSA 03/30/2020 03/30/2020 Assessment Noted Time PHQ-9 Depression Total Score: 0 12/15/19 21 8:53 AM RACKER OCTAVE BOARD documented as of this encounter Care Teams Application Defense Manager Relationship Specialty Start Date End Date John Méndez MD PCP - General Family Medicine 09/28/19 04/26/24 documented as of this encounter
--- OUTSIDE RECORDS SUMMARY | 2024-10-20 03:54 | XMS_ITS | Encounter Summary ---
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 No / Unsure 02/05/2021 10:03 AM CDT documented as of this encounter Plan of Treatment Upcoming Encounters Date Type Department Care Team (Late st Contact Info) Description 11/02/2024 8:15 AM PROJECT MANAGER/TEAM COACH Office Visit [facility] Group - Family Medicine [facility] [address] [place] [address] Dakota Fabian, PAINT ROLLER ASSEMBLER, GI PHYSICIAN #[address] [address] 11/26/2024 11:30 AM PROJECT MANAGER/TEAM COACH Office Visit [facility] - Family Medicine - [place] [address] [place] [address] Maggie Tolentino, PAC [address] [place] [address] documented as of this encounter Visit Diagnoses Not on filedocumented in this encounter Additional Health Concerns Infection Onset Date Last Indicated Resolved Time MRSA 03/30/2020 03/30/2020 Assessment Noted Time PHQ-9 Depression Total Score: 0 12/15/19 21 8:53 AM PROJECT MANAGER/TEAM COACH documented as of this encounter Care Teams Weblogic Administrator Relationship Specialty Start Date End Date John Méndez MD PCP - General Family Medicine 09/28/19 04/26/24 documented as of this encounter
--- OUTSIDE RECORDS SUMMARY | 2024-10-20 03:54 | XMS_ITS | Encounter Summary ---
Author Organization [facility] Address [address] [facility] 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 No / Unsure 02/05/2021 10:03 AM CDT documented as of this encounter Miscellaneous Notes * Telephone Encounter - Sayra Nielsen RN - 03/07/2021 10:20 AM CDT Spoke with patient explained that you suggested she try OTC, ask Pharmacist which might be better foe her symptoms. She verbalized understanding * Telephone Encounter - John Méndez MD - 03/07/2021 9:55 AM CDT I am not going to continue with the cough medication. I have given this in the past but this is controlled. She can use over the counter meds. That is what everyone else does. I didn't realize that she would call all the time to get this. * Telephone Encounter - Ellen Roberts RN - 03/07/2021 9:25 AM CDT SITUATION: Patient calling to request Rx for cough medication BACKGROUND: Patient with history of allergies, worse over the past couple of days due to increased pollen count in the area ASSESSMENT: Symptom Description / Location: patient states she has history of allergies States symptoms increased over the past 2 days Sneezing Nasal congestion and drainage Denies sore throat Does have post nasal drip Cough-dry (tickle at night) Cough is constant but is worse at night and has attempted to elevate pillows without success Denies chest pain, shortness of breath or wheezing Pain (0-10): denies Temp: denies Treatment / Response: prescribed and OTC allergy medications as well as neti pot RECOMMENDATION: Patient triages to see in office within 3 days, patient would like to have cough medication sent to pharmacy on file To provider for guidance. See care advice and disposition for Guideline First positive answer recorded, all responses to prior questions were negative. If symptoms increase, change or if new symptoms develop, call your HCP or call back. Recommendations were based on caller information and is not a diagnosis. Verified and reviewed all triage information with caller. Reason for Disposition ??? Allergy symptoms are also present (e.g., itchy eyes, clear nasal discharge, postnasal drip) Protocols used: COUGH-A-OH documented in this encounter Plan of Treatment Upcoming Encounters Date Type Department Care Team (Late st Contact Info) Description 11/02/2024 8:15 AM SANDER SETTER Office Visit [facility] [address] [place] [address] Dakota Fabian APRN, DIAGNOSTIC ASSISTANT #[address] [address] 11/26/2024 11:30 AM SANDER SETTER Office Visit [facility] [address] [place] [address] Maggie Tolentino, PAC [address] [place] [address] documented as of this encounter Visit Diagnoses Not on filedocumented in this encounter Additional Health Concerns Infection Onset Date Last Indicated Resolved Time MRSA 03/30/2020 03/30/2020 Assessment Noted Time PHQ-9 Depression Total Score: 0 12/15/19 21 8:53 AM SANDER SETTER documented as of this encounter Care Teams Subscription Agent Relationship Specialty Start Date End Date John Méndez MD PCP - General Family Medicine 09/28/19 04/26/24 documented as of this encounter
--- OUTSIDE RECORDS SUMMARY | 2024-10-20 03:54 | XMS_ITS | Encounter Summary ---
Author Organization [facility] Address [address] [facility] 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 No / Unsure 03/14/2021 8:30 AM CDT documented as of this encounter Miscellaneous Notes * Telephone Encounter - Antoinette Arora RN - 03/13/2021 2:12 PM CDT Medication failed the protocol, provider to review and approve the medication order if appropriate. Requested Prescriptions Pending Prescriptions Disp Refills escitalopram (LEXAPRO) 20 MG Tablet [Pharmacy Med Name: ESCITALOPRAM 20 MG TABLET] 90 Tablet 1 Sig: TAKE 1 TABLET BY MOUTH EVERY DAY SSRI (6 Month Refill Only) Protocol Failed - 03/11/2021 12:01 AM Failed - Patient has establiashed therapy with SSRI for at least 6 months Passed - Visit with relevant provider in past 6 months or upcoming 90 days Recent Visits Date Type Provider Dept 01/11/21 Office Visit John Méndez MD [facility] 12/14/20 Office Visit John Méndez MD [facility] 11/15/20 Office Visit John Méndez MD [facility] Showing recent visits within past 182 days and meeting all other requirements Future Appointments Date Type Provider Dept 04/12/21 Appointment John Méndez MD [facility] Showing future appointments within next 90 days and meeting all other requirements Passed - Has an encounter in the past 6 months with a depression or anxiety visit diagnosis documented in this encounter Plan of Treatment Upcoming Encounters Date Type Department Care Team (Late st Contact Info) Description 11/02/2024 8:15 AM DIGITAL MARKETING OFFICER Office Visit [facility] [address] [place] [address] Dakota Fabian APRN, SAFETY REPRESENTATIVE [address] [address] 11/26/2024 11:30 AM DIGITAL MARKETING OFFICER Office Visit [facility] - Family [facility] [address] [place] [address] Maggie Tolentino PAC [address] [place] [address] documented as of this encounter Visit Diagnoses Not on filedocumented in this encounter Additional Health Concerns Infection Onset Date Last Indicated Resolved Time MRSA 03/30/2020 03/30/2020 COVID - 19 09/11/2024 09/11/2024 09/11/2024 7:21 PM DIGITAL MARKETING OFFICER Assessment Noted Time PHQ-9 Depression Total Score: 0 12/15/19 8:53 AM DIGITAL MARKETING OFFICER documented as of this encounter Care Teams Benchroom Shop Optician Relationship Specialty Start Date End Date John Méndez MD PCP - General Family Medicine 09/28/19 04/26/24 Dakota Fabian, COUNSELING SERVICES DIRECTOR, SAFETY REPRESENTATIVE [address] [address] PCP - General Advanced Practice Nurse 04/27/24 documented as of this encounter
--- OUTSIDE RECORDS SUMMARY | 2024-10-20 03:54 | XMS_ITS | Encounter Summary ---
Author Organization [facility] Address [address] [facility] 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 No / Unsure 03/14/2021 8:30 AM CDT documented as of this encounter Miscellaneous Notes * Telephone Encounter - John Pearl RN - 03/14/2021 8:25 AM CDT Images from the original note were not included. SITUATION: Cough, sinus congestion, runny nose BACKGROUND: Started last week ASSESSMENT: Symptom Description / Location: bends down has sinus pressure in face, cough with occasional green mucus, denies having coughing fits, denies diarrhea, denies vomiting, denies shortness of breath Denies getting covid vaccine Pain (0-10): denies Temp: denies Treatment / Response: santhoshitusalvin delgadolukast, zyrtec Travel Screening Question Response In the last month, have you been in contact with someone who was confirmed or suspected to have Coronavirus / COVID-19? No / Unsure Have you had a COVID-19 viral test in the last 14 days? No Do you have any of the following new or worsening symptoms? Cough;Runny nose Have you traveled internationally in the last month? No Travel History Travel since 02/11/21 No documented travel since 02/11/21 COVID-19 Testing Priority for Melinda Olmedo: 2 Nurse to triage JOHN PEARL RN RECOMMENDATION: See care advice and disposition for Guideline First positive answer recorded, all responses to prior questions were negative. If symptoms increase, change or if new symptoms develop, call your HCP or call back. Recommendations were based on caller information and is not a diagnosis. Verified and reviewed all triage information with caller. All Patient Appointments Provider Department Dept Phone 03/14/2021 4:00 PM John Méndez [facility] [phone] Reason for Disposition ? ? Sinus congestion (pressure, fullness) present > 10 days Protocols used: SINUS PAIN OR [id number] documented in this encounter Plan of Treatment Upcoming Encounters Date Type Department Care Team (Late st Contact Info) Description 11/02/2024 8:15 AM CORRECTIONAL OFFICER LIEUTENANT Office Visit [facility] [address] [place] [address] Dakota Fabian APRN, FLOORLEADER #[address] [address] 11/26/2024 11:30 AM CORRECTIONAL OFFICER LIEUTENANT Office Visit [facility] [address] [place] [address] Maggie Tolentino, PAC [address] [place] [address] documented as of this encounter Visit Diagnoses Not on filedocumented in this encounter Additional Health Concerns Infection Onset Date Last Indicated Resolved Time MRSA 03/30/2020 03/30/2020 Assessment Noted Time PHQ-9 Depression Total Score: 0 12/15/19 21 8:53 AM CORRECTIONAL OFFICER LIEUTENANT documented as of this encounter Care Teams University Registrar Relationship Specialty Start Date End Date John Méndez MD PCP - General Family Medicine 09/28/19 04/26/24 documented as of this encounter
--- OUTSIDE RECORDS SUMMARY | 2024-10-20 03:54 | XMS_ITS | Encounter Summary ---
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 No / Unsure 12/14/2020 8:23 AM NATIONAL GUARD MEMBER documented as of this encounter Plan of Treatment Upcoming Encounters Date Type Department Care Team (Late st Contact Info) Description 11/02/2024 8:15 AM NATIONAL GUARD MEMBER Office Visit [facility] Medical Group - Family Medicine [facility] [address] [place] [id number] Dakota Fabian, CONCEPT ARTIST, JANITOR AND CLEANER [address] [address] 11/26/2024 11:30 AM NATIONAL GUARD MEMBER Office Visit [facility] - [facility] [address] [place] [address] Maggie Tolentino, [facility] [address] [place] [address] documented as of this encounter Visit Diagnoses Not on filedocumented in this encounter Additional Health Concerns Infection Onset Date Last Indicated Resolved Time MRSA 03/30/2020 03/30/2020 Assessment Noted Time PHQ-9 Depression Total Score: 0 12/15/19 21 8:53 AM NATIONAL GUARD MEMBER documented as of this encounter Care Teams Automatic Engraver Relationship Specialty Start Date End Date John Méndez MD PCP - General Family Medicine 09/28/19 04/26/24 documented as of this encounter
--- OUTSIDE RECORDS SUMMARY | 2024-10-20 03:54 | XMS_ITS | Encounter Summary ---
Author Organization [facility] Address [address] [facility] 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 No / Unsure 02/05/2021 10:03 AM CDT documented as of this encounter Miscellaneous Notes * Telephone Encounter - Lisandra Gallagher RN - 02/21/2021 4:53 PM CDT Pt calling to make sure the request for refill was received by the office. Pt knows it is not due for refill until over the weekend, but wanted to give enough time for it to be processed. * Telephone Encounter - Antoinette Arora RN - 02/21/2021 12:18 PM CDT [place] 01/27/21 Medication failed the protocol, provider to review and approve the medication order if appropriate. Requested Prescriptions Pending Prescriptions Disp Refills acetaminophen-codeine (TYLENOL #3) 300-30 MG Tablet [Pharmacy Med Name: ACETAMINOPHEN-COD #3 TABLET] 90 Tablet 0 Sig: TAKE 1 TABLET BY MOUTH 3 TIMES DAILY NEEDED FOR MODERATE OR MORE SEVERE PAIN. [facility] Not Delegated - Analgesics: Opioid Agonist Combinations Failed - 02/21/2021 12:18 PM Failed - This refill cannot be delegated Passed - Valid encounter within last 6 months Past Office Visits Recent Outpatient Visits 1 month ago Moderate episode of recurrent major depressive disorder (HCC) [facility] John Delarosa MD 2 months ago Moderate episode of recurrent major depressive disorder (HCC) [facility] John Delarosa MD 3 months ago Mixed hyperlipidemia [facility] John Delarosa MD 8 months ago Mild intermittent asthma without complication [facility] John Delarosa MD 9 months ago Acute non-recurrent maxillary sinusitis [facility] John Delarosa MD Upcoming Appointments Future Appointments In 1 month John Méndez MD [facility] [employer] - Recent and Past Visits Recent Visits Date Type Provider Dept 01/11/21 Office Visit John Méndez, MD [facility] 12/14/20 Office Visit John Méndez, MD [facility] 11/15/20 Office Visit John Méndez, MD [facility] 06/09/20 Office Visit John Méndez, MD [facility] 05/02/20 Office Visit John Méndez, MD [facility] 03/30/20 Office Visit John Méndez, MD [facility] 12/14/19 Office Visit John Méndez, MD [facility] 12/02/19 Office Visit John Méndez, MD [facility] Showing recent visits within past 460 days with a meds authorizing provider and meeting all other requirements Future Appointments Date Type Provider Dept 04/12/21 Appointment John Méndez, MD [facility] Showing future appointments within next 90 days with a meds authorizing provider and meeting all other requirements documented in this encounter Plan of Treatment Upcoming Encounters Date Type Department Care Team (Late st Contact Info) Description 11/02/2024 8:15 AM NOVELTY PRINTING MACHINE OPERATOR Office Visit [facility] [address] [place] [address] Dakota Fabian APRN, BURN CENTER NURSE #[address] [address] 11/26/2024 11:30 AM NOVELTY PRINTING MACHINE OPERATOR Office Visit [facility] [address] [place] [address] Maggie Tolentino, PAC [address] [place] [address] documented as of this encounter Visit Diagnoses Not on filedocumented in this encounter Additional Health Concerns Infection Onset Date Last Indicated Resolved Time MRSA 03/30/2020 03/30/2020 COVID - 19 09/11/2024 09/11/2024 09/11/2024 7:21 PM NOVELTY PRINTING MACHINE OPERATOR Assessment Noted Time PHQ-9 Depression Total Score: 0 12/15/19 8:53 AM NOVELTY PRINTING MACHINE OPERATOR documented as of this encounter Care Teams Morning Caregiver Relationship Specialty Start Date End Date John Méndez MD PCP - General Family Medicine 09/28/19 04/26/24 Dakota Fabian, GREENSKEEPER LABORER, BURN CENTER NURSE #[address] [address] PCP - General Advanced Practice Nurse 04/27/24 documented as of this encounter
--- OUTSIDE RECORDS SUMMARY | 2024-10-20 03:54 | XMS_ITS | Encounter Summary ---
Author Organization [facility] Address [address] 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 No / Unsure 11/20/2020 6:37 AM DIRECTOR OF INDIVIDUAL GIVING documented as of this encounter Miscellaneous Notes * Telephone Encounter - Radha Tee RN - 11/23/2020 4:30 PM CST Patient requesting 11/16/2020 lab results Please advise CTOR OF INDIVIDUAL GIVING * Telephone Encounter - Tanika Barcenas - 11/23/2020 1:06 PM CST Patient would like her lab results from 11/16/20. CTOR OF INDIVIDUAL GIVING documented in this encounter Plan of Treatment Upcoming Encounters Date Type Department Care Team (Late st Contact Info) Description 11/02/2024 8:15 AM DIRECTOR OF INDIVIDUAL GIVING Office Visit [facility] [address] [place] [address] Dakota Fabian, THOM, CONFECTIONERY DROPS MACHINE OPERATOR #[address] [address] 11/26/2024 11:30 AM DIRECTOR OF INDIVIDUAL GIVING Office Visit [facility] [address] [place] [address] Maggie Tolentino, PAC [address] [place] [address] documented as of this encounter Visit Diagnoses Not on filedocumented in this encounter Additional Health Concerns Infection Onset Date Last Indicated Resolved Time MRSA 03/30/2020 03/30/2020 Assessment Noted Time PHQ-9 Depression Total Score: 0 10/19/19 20 12:31 PM DIRECTOR OF INDIVIDUAL GIVING documented as of this encounter Care Teams Metal Extrusion Supervisor Relationship Specialty Start Date End Date John Méndez MD PCP - General Family Medicine 09/28/19 04/26/24 documented as of this encounter
--- OUTSIDE RECORDS SUMMARY | 2024-10-20 03:54 | XMS_ITS | Encounter Summary ---
Author Organization [facility] Address [address] [facility] 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 No / Unsure 11/20/2020 6:37 AM DRAFTER PLUMBING documented as of this encounter Miscellaneous Notes * Telephone Encounter - Gallagher, Sonal Norton RN - 11/20/2020 6:37 AM CST Images from the original note were not included. Travel Screening Question Response In the last month, have you been in contact with someone who was confirmed or suspected to have Coronavirus / COVID-19? No / Unsure Have you had a COVID-19 viral test in the last 14 days? No Do you have any of the following new or worsening symptoms? Fever;Vomiting;Diarrhea;Abdominal pain Have you traveled internationally in the last month? No Travel History Travel since 10/20/20 No documented travel since 10/20/20 COVID-19 Testing Priority for Melinda Izzy Olmedo: 2 Nurse to triage SITUATION: Patient calling with vomiting and diarrhea. BACKGROUND: patient stated for past two days she is vomiting or diarrhea. ASSESSMENT: Symptom Description / Location: patient stated she can stand up and walk around. Patient denies anydifficulty to awaken or acting confused. Patient denies any red blood in the vomiting. Patient denies severe pain in one eye. Patient denies any recent head or abdominal injury. Patient denies that she is diabetic. Patient stated she is vomiting 1-2 a da. Patient stated she has about 3 episodes of diarrhea a day. Patient denies any severe headache. Patient denies that she is high risk. Patient denies that abdomen is more swollen that usual. Patient stated she can drink water,small sips. Patientdenies that her vomit is bile. Patient denies any abdominal pain. patient denies taking any of these medications digoxin, lithium, theophylline or phenytoin. Pain (0-10): 5/10 low back pain Temp: 100.1- axillary, no degree added, 1 hour ago Treatment / Response: patient denies RECOMMENDATION: advised patient to be seen within 24 hours. Patient agreed and verbalized understanding. Office appointment scheduled for today at 0930. Advised patient to call back with any questions or worsening symptoms. SONAL GALLAGHER RN Reason for Disposition ? ? [1] MILD or MODERATE vomiting AND [2] present > 48 hours (2 days) (Exception: mild vomiting with associated diarrhea) Protocols used: [id number] TER PLUMBING documented in this encounter Plan of Treatment Upcoming Encounters Date Type Department Care Team (Late st Contact Info) Description 11/02/2024 8:15 AM DRAFTER PLUMBING Office Visit [facility] [address] [place] [address] Dakota Fabian APRN, COUNTERINTELLIGENCE AGENT #[address] [address] 11/26/2024 11:30 AM DRAFTER PLUMBING Office Visit [facility] [address] [place] [address] Maggie Tolentino, PAC [address] [place] [address] documented as of this encounter Visit Diagnoses Not on filedocumented in this encounter Additional Health Concerns Infection Onset Date Last Indicated Resolved Time MRSA 03/30/2020 03/30/2020 Assessment Noted Time PHQ-9 Depression Total Score: 0 10/19/19 20 12:31 PM DRAFTER PLUMBING documented as of this encounter Care Teams Terminal Operations Manager Relationship Specialty Start Date End Date John Méndez MD PCP - General Family Medicine 09/28/19 04/26/24 documented as of this encounter
--- OUTSIDE RECORDS SUMMARY | 2024-10-20 03:54 | XMS_ITS | Encounter Summary ---
Author Organization [facility] Address [address] [facility] 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 No / Unsure 01/11/2021 8:22 AM CDT documented as of this encounter Miscellaneous Notes * Telephone Encounter - Efrain Lama RN - 01/17/2021 8:19 AM CDT Pt notified and v/u of approved med * Telephone Encounter - Efrain Lama RN - 01/15/2021 10:25 AM CDT Pt asking for a Rx for cheratussin for a cough. Med penned for approval Pharmacy UTD documented in this encounter Plan of Treatment Upcoming Encounters Date Type Department Care Team (Late st Contact Info) Description 11/02/2024 8:15 AM SHOE FITTER Office Visit [facility] [address] [place] [address] Dakota Fabian APRN, DIABETES PHYSICIAN [address] [address] 11/26/2024 11:30 AM SHOE FITTER Office Visit [facility] [address] [place] [address] Maggie Tolentino, PAC [address] [place] [address] documented as of this encounter Visit Diagnoses Diagnosis Mild intermittent asthma without complication Unspecified asthma Wheezing documented in this encounter Additional Health Concerns Infection Onset Date Last Indicated Resolved Time MRSA 03/30/2020 03/30/2020 Assessment Noted Time PHQ-9 Depression Total Score: 0 12/15/19 8:53 AM SHOE FITTER documented as of this encounter Care Teams Medical Coding Auditor Relationship Specialty Start Date End Date John Méndez MD PCP - General Family Medicine 09/28/19 04/26/24 documented as of this encounter
--- OUTSIDE RECORDS SUMMARY | 2024-10-20 03:54 | XMS_ITS | Encounter Summary ---
Author Organization [facility] Address [address] [facility] 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 No / Unsure 02/05/2021 10:03 AM CDT documented as of this encounter Miscellaneous Notes * Telephone Encounter - Ragini Mcfarlane RN - 02/05/2021 2:34 PM CDT Patient notified provider felt cough related to allergies and will no longer refill this medication. She verbalized understanding * Telephone Encounter - John Méndez MD - 02/05/2021 10:16 AM CDT No it is allergies. She calls and wants this every time she coughs. I am not giving this anymore. * Telephone Encounter - Ragini Vora RN - 02/05/2021 10:00 AM CDT Images from the original note were not included. Reason for Disposition ??? Allergy symptoms are also present (e.g., itchy eyes, clear nasal discharge, postnasal drip) Protocols used: [id number] SITUATION: Patient calling in requesting a prescription for Guaifenesin-codeine cough syrup. BACKGROUND: Patient was prescribed a 7 day supply of the medication on 01/15 and her symptoms have returned. ASSESSMENT: Onset: 2 weeks Symptoms: Dry unproductive cough, runny nose with clear secretions Denies shortness of breath, wheezing, coughing up blood, heart or lung disease, blood clots, or chest pain Pain: denies Temp: denies Treatment with response: Flonase, Zyrtec, pushing fluids, cough drops RECOMMENDATION: See within 3 days in office Patient is requesting a prescription for Guaifenesin-codeine cough syrup. Pharmacy verified Please advise Thank you See care advice and disposition for guideline. First positive answer recorded, all responses to prior questions were negative. If symptoms increase, change or if new symptoms develop, call your HCP or call back. Recommendation based on caller information and is not a diagnosis. Verified and reviewed all triage information with caller. Caller verbalized understanding of information given and denies further questions. Teach-back method utilized. Travel Screening Question Response In the last [...] last month? No Travel History Travel since 01/05/21 No documented travel since 01/05/21 COVID-19 Testing Priority for Melinda Magana Shara: 2 documented in this encounter Plan of Treatment Upcoming Encounters Date Type Department Care Team (Late st Contact Info) Description 11/02/2024 8:15 AM BUSINESS ENGLISH INSTRUCTOR Office Visit [facility] [address] [place] [address] Dakota Fabian, THOM, LOCATION WORKER [address] [address] 11/26/2024 11:30 AM BUSINESS ENGLISH INSTRUCTOR Office Visit [facility] [address] [place] [address] Maggie Tolentino, PAC [address] [place] [address] documented as of this encounter Visit Diagnoses Not on filedocumented in this encounter Additional Health Concerns Infection Onset Date Last Indicated Resolved Time MRSA 03/30/2020 03/30/2020 Assessment Noted Time PHQ-9 Depression Total Score: 0 12/15/19 8:53 AM BUSINESS ENGLISH INSTRUCTOR documented as of this encounter Care Teams Fishing Instructor Relationship Specialty Start Date End Date John Méndez MD PCP - General Family Medicine 09/28/19 04/26/24 documented as of this encounter
--- OUTSIDE RECORDS SUMMARY | 2024-10-20 03:54 | XMS_ITS | Encounter Summary ---
Author Organization [facility] 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 Not [...] st Contact Info) Description 11/02/2024 8:15 AM DOCUMENT PREPARATION SPECIALIST Office Visit [facility] Medical Group - Family Medicine [facility] [address] [place] [address] Dakota Fabian, HIDE INSPECTOR, NURSE SPECIAL [address] [address] 11/26/2024 11:30 AM DOCUMENT PREPARATION SPECIALIST Office Visit [facility] [place] [address] [place] [address] Maggie Tolentino, PAC [address] [place] [address] documented as of this encounter Visit Diagnoses Not on filedocumented in this encounter Additional Health Concerns Infection Onset Date Last Indicated Resolved Time MRSA 03/30/2020 03/30/2020 Assessment Noted Time PHQ-9 Depression Total Score: 0 12/15/19 21 8:53 AM DOCUMENT PREPARATION SPECIALIST documented as of this encounter Care Teams Spice Blender Relationship Specialty Start Date End Date John Méndez MD PCP - General Family Medicine 09/28/19 04/26/24 documented as of this encounter
--- OUTSIDE RECORDS SUMMARY | 2024-10-20 03:54 | XMS_ITS | Encounter Summary ---
Author Organization [facility] Address [address] [facility] [place] [address] Phone Care Team Providers Care Marriage And Family Therapist Name Role Phone John Méndez MD Primary Care Provider [phone] Reason for Visit * Reason Comments Follow-up 4 week follow up Encounter Details Date Type Department Care Team (Late st Contact Info) Description 01/11/2021 8:30 AM CDT Office Visit [facility] - Family [facility] [address] [place] [address] John Méndez MD [address] [place] [address] Moderate episode of recurrent major depressive disorder (HCC) (Primary Dx); Anxiety; Sacroiliac joint dysfunction of both sides Discharge Disposition: Discharged to home or Selfcare [...] 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 No / Unsure 01/11/2021 8:22 AM CDT documented as of this encounter Last Filed Vital Signs Vital Sign Reading Time Taken Comments Blood Pressure 112/64 01/11/2021 8:30 AM CDT Pulse 84 01/11/2021 8:30 AM CDT Temperature 36.2 ??C (97.1 ??F) 01/11/2021 8:30 AM CD T Respiratory Rate 16 01/11/2021 8:30 AM CDT Oxygen Saturation 98% 01/11/2021 8:30 AM CDT Inhaled Oxygen Concentration - - Weight 97.2 kg (214 lb 4.8 oz) 01/11/2021 8:30 A M CDT Height 160 cm (5' 3 ) 01/11/2021 8:30 AM CDT Body Mass Index 37.96 01/11/2021 8:30 AM CDT documented in this encounter Progress Notes * Paradise Carmichael - 01/11/2021 8:30 AM CDT Melinda Izzy Olmedo, 45 y.o., female is here for Follow-up (4 week follow up ) Medication Refills: Patient reports/denies need for medication refills. Orders Pended: no Requested Prescriptions No prescriptions requested or ordered in this encounter Home Medications Medication Sig Start Date End Date Taking? Authorizing Provider acetaminophen-codeine (TYLENOL #3) 300-30 MG Tablet Take 1 Tablet by mouth 2 times daily as needed for Moderate or more severe pain. 01/08/21 Yes John Méndez MD albuterol (PROVENTIL/VENTOLIN) 1.25 [...] 1 Tab by mouth 2 times daily. Patient not taking: Reported on 01/11/2021 12/02/19 John Méndez MD carvedilol (COREG) 6.25 MG Tablet Take 1 Tab by mouth 2 times daily. 09/28/19 Yes John Méndez MD cetirizine (ZYRTEC) 10 MG Tablet Take 1 Tab by mouth daily. 09/28/19 Yes John Méndez MD escitalopram (LEXAPRO) 20 MG Tablet Take 1 Tablet by mouth daily. 12/14/20 Yes John Méndez MD hydroCHLOROthiazide 25 MG Tablet Take 1 Tab by mouth daily. 09/28/19 Yes John Méndez MD ibuprofen (MOTRIN) 800 MG Tablet as needed. 06/15/19 Adolfo Sotomayor MD losartan (COZAAR) 25 MG [...] addressed with the patient today: BMI and Pap documented in this encounter Plan of Treatment Upcoming Encounters Date Type Department Care Team (Late st Contact Info) Description 11/02/2024 8:15 AM SPECIAL EDUCATION CASE MANAGER Office Visit [facility] [address] [place] [address] Dakota Fabian, THOM, FRUIT TESTER [address] [address] 11/26/2024 11:30 AM SPECIAL EDUCATION CASE MANAGER Office Visit [facility] [address] [place] [address] Maggie Tolentino, PAC [address] [place] [address] documented as of this encounter Visit Diagnoses Diagnosis Moderate episode of recurrent major depressive disorder (HCC)- Primary Anxiety Anxiety state, unspecified Sacroiliac joint dysfunction of both sides Disorders of sacrum documented in this encounter Additional Health Concerns Infection Onset Date Last Indicated Resolved Time MRSA 03/30/2020 03/30/2020 Assessment Noted Time PHQ-9 Depression Total Score: 0 12/15/19 8:53 AM SPECIAL EDUCATION CASE MANAGER documented as of this encounter Care Teams Marriage And Family Therapist Relationship Specialty Start Date End Date John Méndez MD PCP - General Family Medicine 09/28/19 04/26/24 documented as of this encounter
--- OUTSIDE RECORDS SUMMARY | 2024-10-20 03:54 | XMS_ITS | Encounter Summary ---
Author Organization [facility] Address [address] [place] [address] Phone Care Team Providers Care Wafer Fab Technician Name Role Phone John Méndez MD Primary Care Provider [phone] Reason for Visit * Reason Onset Date Comments Medication Refill Medication Refill 01/08/2021 Encounter Details Date Type Department Care Team (Late st Contact Info) Description 01/08/2021 Refill [facility] - Family Medicine 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 No / Unsure 12/14/2020 8:23 AM SPECIAL EDUCATION ITINERANT TEACHER documented as of this encounter Miscellaneous Notes * Telephone Encounter - Antoinette Arora RN - 01/08/2021 12:26 PM CDT Spoke with patient and answered her questions. * Telephone Encounter - Antoinette Arora RN - 01/08/2021 11:54 AM CDT LVM for pt to return call to office. * Telephone Encounter - Ellen Roberts RN - 01/08/2021 10:36 AM CDT Patient calling states that pharmacy has sent request for refill of Tylenol #3, states that she is getting a supply of 60 states she is taking as directed but pharmacy is stating that this is a 15 day supply, states she would like to know if this is correct, states she does not want to run out of medication but also would like to know if she is supposed to be making the written quantity last for a month. To provider for FYI documented in this encounter Plan of Treatment Upcoming Encounters Date Type Department Care Team (Late st Contact Info) Description 11/02/2024 8:15 AM SPECIAL EDUCATION ITINERANT TEACHER Office Visit [facility] [address] [place] [address] Dakota Fabian APRN, CREDIT CARD INTERVIEWER #[address] [address] 11/26/2024 11:30 AM SPECIAL EDUCATION ITINERANT TEACHER Office Visit [facility] [address] [place] [address] Maggie Tolentino, PAC [address] [place] [address] documented as of this encounter Visit Diagnoses Not on filedocumented in this encounter Additional Health Concerns Infection Onset Date Last Indicated Resolved Time MRSA 03/30/2020 03/30/2020 Assessment Noted Time PHQ-9 Depression Total Score: 0 12/15/19 21 8:53 AM SPECIAL EDUCATION ITINERANT TEACHER documented as of this encounter Care Teams Wafer Fab Technician Relationship Specialty Start Date End Date John Méndez MD PCP - General Family Medicine 09/28/19 04/26/24 documented as of this encounter
--- OUTSIDE RECORDS SUMMARY | 2024-10-20 03:54 | XMS_ITS | Encounter Summary ---
Author Organization [facility] Address [address] [facility] 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 No / Unsure 03/14/2021 8:30 AM CDT documented as of this encounter Miscellaneous Notes * Telephone Encounter - Rebecca Liu Samantha - 03/23/2021 3:58 PM CDT Patient calling to check on medication refill, sent to Med management nurse. documented in this encounter Plan of Treatment Upcoming Encounters Date Type Department Care Team (Late st Contact Info) Description 11/02/2024 8:15 AM FINISH REPAIRER Office Visit [facility] [address] [place] [address] Dakota Fabian, THOM, APPLE SORTER #[address] [address] 11/26/2024 11:30 AM FINISH REPAIRER Office Visit [facility] [address] [place] [address] Maggie Tolentino, PAC [address] [place] [address] documented as of this encounter Visit Diagnoses Not on filedocumented in this encounter Additional Health Concerns Infection Onset Date Last Indicated Resolved Time MRSA 03/30/2020 03/30/2020 Assessment Noted Time PHQ-9 Depression Total Score: 0 12/15/19 21 8:53 AM FINISH REPAIRER documented as of this encounter Care Teams Marketing Co Op Relationship Specialty Start Date End Date John Méndez MD PCP - General Family Medicine 09/28/19 04/26/24 documented as of this encounter
--- OUTSIDE RECORDS SUMMARY | 2024-10-20 03:54 | XMS_ITS | Encounter Summary ---
Author Organization [facility] Address [address] 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 No / Unsure 12/14/2020 8:23 AM NITROGLYCERIN DISTRIBUTOR documented as of this encounter Miscellaneous Notes * Telephone Encounter - Antoinette Arora RN - 12/26/2020 4:06 PM CDT Images from the original note were not included. acetaminophen-codeine (TYLENOL #3) 300-30 MG Tablet 60 Tablet 0 12/26/2020 Sig - Route: Take 1-2 Tablets by mouth 2 times daily as needed for Moderate or more severe pain. - Oral Sent to pharmacy as: Acetaminophen-Codeine 300-30 MG Oral Tablet (TYLENOL #3) Class: E Prescribe Notes to Pharmacy: sixty E-Prescribing Status: Receipt confirmed by pharmacy (12/26/2020 1:30 PM CDT) Outpatient Morphine Equivalent Daily Dose (MEDD) 12/26/20 and after 9-18 mg MEDD Order Name Dose Route Frequency Maximum MEDD acetaminophen-codeine (TYLENOL #3) 300-30 MG Tablet 1-2 Tablet Oral 2 TIMES DAILY PRN 9-18 mg MEDD Total Potential Daily Morphine Equivalence 9-18 mg MEDD Calculation Information acetaminophen-codeine (TYLENOL #3) 300-30 MG Tablet [[id number]] 1329 Status: Active Ordering user: John Méndez MD 12/26/20 1329 Authorized by: John Méndez MD PRN reasons: Moderate or more severe pain Frequency: BID PRN 12/26/20 - Until Discontinued Pharmacy [id number] [place], [place] - [address] [facility] * Telephone Encounter - Antoinette Arora RN - 12/26/2020 4:06 PM CDT The original prescription was discontinued on 12/26/2020 by John Méndez MD * Telephone Encounter - Emma Boyd RN - 12/26/2020 11:20 AM CDT Pt is calling would rather take tylenol # 3 TID instead of BID if ok. Pharmacy verified. documented in this encounter Plan of Treatment Upcoming Encounters Date Type Department Care Team (Late st Contact Info) Description 11/02/2024 8:15 AM NITROGLYCERIN DISTRIBUTOR [facility] [place] [address] Dakota Fabian APRN, ULTRASOUND APPLICATIONS SPECIALIST #[address] [address] 11/26/2024 11:30 AM NITROGLYCERIN DISTRIBUTOR [facility] [place] [address] Maggie Tolentino, PAC [address] [place] [address] documented as of this encounter Visit Diagnoses Not on filedocumented in this encounter Additional Health Concerns Infection Onset Date Last Indicated Resolved Time MRSA 03/30/2020 03/30/2020 COVID - 19 09/11/2024 09/11/2024 09/11/2024 7:21 PM NITROGLYCERIN DISTRIBUTOR Assessment Noted Time PHQ-9 Depression Total Score: 0 12/15/19 21 8:53 AM NITROGLYCERIN DISTRIBUTOR documented as of this encounter Care Teams Crm Analyst Relationship Specialty Start Date End Date John Méndez MD PCP - General Family Medicine 09/28/19 04/26/24 Dakota Fabian, PAINTER [place]ING, ULTRASOUND APPLICATIONS SPECIALIST #[address] [address] PCP - General Advanced Practice Nurse 04/27/24 documented as of this encounter
--- OUTSIDE RECORDS SUMMARY | 2024-10-20 03:54 | XMS_ITS | Encounter Summary ---
Author Organization [facility] Address [address] 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 No / Unsure 11/20/2020 6:37 AM FILM PRODUCER documented as of this encounter Miscellaneous Notes * Telephone Encounter - Ellen Roberts RN - 12/07/2020 8:19 AM CST S: Patient calling back very concerned B: Patient upset and confused that she failed her drug test and showed positive for fentanyl A: States she does not use fentanyl Does not understand why her drug test would come up that way States she has never used this medication States she needs her pain medicine and wouldn't do anything to screw that up It is driving me crazy I just don't do stuff like that States she saw a person OD in front of her a few days before the test, was giving CPR, states the person had used fentanyl, officer stated that she should not have given CPR with no mask as she had it coming out of her mouth -states she told another nurse this when she was at the appointment on 11.15.20 R: To provider for FYI, advised patient to further discuss with PCP at her follow-up appointment on12.14.20 PRODUCER * Telephone Encounter - John Méndez MD - 12/06/2020 3:16 PM CST She has this in the system. It is a very good test. I am ok with the lexapro and zoloft and dont care but where is the fentanyl coming from. Not poppy seeds. And no I am not repeating this as it doesnot matter now. PRODUCER * Telephone Encounter - Madelin Hartley RN - 12/06/2020 10:45 AM CST Patient notified. Says lexapro was just prescribed that day. It wouldn't be in her system yet zoloft she was on and was just told to stop taking it at the office visit. Says she does not take fentanyl. Doesn't make any sense. She is the most anal person . Says you can look back at her previous drug screens, she has always passed. She will repeat the test to prove it. Blood urine valerie testing. Says she eats poppy seeds. PRODUCER * Telephone Encounter - Jacinta Haro RN - 12/05/2020 5:33 PM CST lmom give pcp message PRODUCER * Telephone Encounter - Jacinta Haro RN - 12/05/2020 5:33 PM CST ----- Message from John Méndez MD sent at 12/05/2020 5:23 PM FILM PRODUCER ----- Please let her know that she did not pass her drug test. She had fentanyl and also zoloft in her system but did not have any of the lexapro or celexa in her system. She did have the codeine but should not have had the fentanyl in there this is bad. PRODUCER documented in this encounter Plan of Treatment Upcoming Encounters Date Type Department Care Team (Late st Contact Info) Description 11/02/2024 8:15 AM FILM PRODUCER Office Visit [facility] [address] [place] [address] Dakota Fabian, SALES ASSISTANT ENTERTAINMENT AND MEDIA, ROOFER GYPSUM #[address] [address] 11/26/2024 11:30 AM FILM PRODUCER Office Visit [facility] [address] [place] [address] Maggie Tolentino, PAC [address] [place] [address] documented as of this encounter Visit Diagnoses Not on filedocumented in this encounter Additional Health Concerns Infection Onset Date Last Indicated Resolved Time MRSA 03/30/2020 03/30/2020 Assessment Noted Time PHQ-9 Depression Total Score: 0 10/19/19 20 12:31 PM FILM PRODUCER documented as of this encounter Care Teams Television Tube Inspector Relationship Specialty Start Date End Date John Méndez MD PCP - General Family Medicine 09/28/19 04/26/24 documented as of this encounter
--- OUTSIDE RECORDS SUMMARY | 2024-10-20 03:54 | XMS_ITS | Encounter Summary ---
Author Organization [facility] Address [address] 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 Not on file Not [...] st Contact Info) Description 11/02/2024 8:15 AM MANAGEMENT ENGINEER Office Visit [facility] [place] [address] [place] [address] Dakota Fabian, THOM, CLAIM ADMINISTRATOR [address] [address] 11/26/2024 11:30 AM MANAGEMENT ENGINEER Office Visit [facility] [place] [place] [address] [place] [address] Maggie Tolentino, PAC [address] [place] [address] documented as of this encounter Visit Diagnoses Diagnosis Need for vaccination- Primary Need for prophylactic vaccination and inoculation against unspecified single disease documented in this encounter Additional Health Concerns Infection Onset Date Last Indicated Resolved Time MRSA 03/30/2020 03/30/2020 Assessment Noted Time PHQ-9 Depression Total Score: 0 12/15/19 21 8:53 AM MANAGEMENT ENGINEER documented as of this encounter Care Teams Ring Attacher Relationship Specialty Start Date End Date John Méndez MD PCP - General Family Medicine 09/28/19 04/26/24 documented as of this encounter
--- OUTSIDE RECORDS SUMMARY | 2024-10-20 03:54 | XMS_ITS | Encounter Summary ---
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 No / Unsure 04/10/2021 8:43 AM CDT documented as of this encounter Plan of Treatment Upcoming Encounters Date Type Department Care Team (Late st Contact Info) Description 11/02/2024 8:15 AM HEALTH SERVICE WORKER Office Visit [facility] - Family Medicine [facility] [address] [place] [address] Dakota Fabian, HOROLOGIST APPRENTICE, CAR REPAIRMAN #[address] [address] 11/26/2024 11:30 AM HEALTH SERVICE WORKER Office Visit [facility] - [place] [address] [place] [address] Maggie Tolentino, PAC [address] [place] [address] documented as of this encounter Visit Diagnoses Not on filedocumented in this encounter Additional Health Concerns Infection Onset Date Last Indicated Resolved Time MRSA 03/30/2020 03/30/2020 Assessment Noted Time PHQ-9 Depression Total Score: 0 12/15/19 21 8:53 AM HEALTH SERVICE WORKER documented as of this encounter Care Teams Busser Relationship Specialty Start Date End Date John Méndez MD PCP - General Family Medicine 09/28/19 04/26/24 documented as of this encounter
--- OUTSIDE RECORDS SUMMARY | 2024-10-20 03:54 | XMS_ITS | Encounter Summary ---
Author Organization [facility] Address [address] [facility] 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 No / Unsure 02/05/2021 10:03 AM CDT documented as of this encounter Miscellaneous Notes * Telephone Encounter - Antoinette Arora RN - 02/07/2021 10:57 AM CDT The original prescription was discontinued on 12/14/2020 by John Méndez MD Patient is now taking 20 mg daily documented in this encounter Plan of Treatment Upcoming Encounters Date Type Department Care Team (Late st Contact Info) Description 11/02/2024 8:15 AM DRAPERY CUTTER Office Visit [facility] [address] [place] [address] Dakota Fabian APRN, CONDENSER SETTER [address] [address] 11/26/2024 11:30 AM DRAPERY CUTTER Office Visit [facility] [address] [place] [address] Maggie Tolentino, PAC [address] [place] [address] documented as of this encounter Visit Diagnoses Not on filedocumented in this encounter Additional Health Concerns Infection Onset Date Last Indicated Resolved Time MRSA 03/30/2020 03/30/2020 COVID - 19 09/11/2024 09/11/2024 09/11/2024 7:21 PM DRAPERY CUTTER Assessment Noted Time PHQ-9 Depression Total Score: 0 12/15/19 8:53 AM DRAPERY CUTTER documented as of this encounter Care Teams Greenskeeper Head Relationship Specialty Start Date End Date John Méndez MD PCP - General Family Medicine 12/17/19 7/15/24 Dakota Fabian, LANDING MAN, CONDENSER SETTER [address] [place] [address] PCP - General Advanced Practice Nurse 04/27/24 documented as of this encounter
--- OUTSIDE RECORDS SUMMARY | 2024-10-20 03:54 | XMS_ITS | Encounter Summary ---
Author Organization [facility] Address [address] 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 No / Unsure 12/14/2020 8:23 AM DISPENSING OPERATOR documented as of this encounter Miscellaneous Notes * Telephone Encounter - Lindsey Goldberg RN - 12/25/2020 6:00 PM CDT Patient calling. States that she thought that her prescription for Tylenol #3 would be ready to warehouse order picker on 12/26 in the morning. She called pharmacy to check if they had received it and they informed her that they had not received it. She wanted to make sure that it would be filled tomorrow. Advised that PCP will fill it. Routing to provider as FYI. * Telephone Encounter - John Méndez MD - 12/25/2020 12:53 PM CDT It is not the 16th yet and I will do it later. L left it on my list to make sure I remembered this. * Telephone Encounter - Lindsey Goldberg RN - 12/25/2020 12:10 PM CDT Patient calling. States was told that she would be able to warehouse order picker her new prescription for tylenol #3 on 12/26. Patient called the pharmacy to verify that they had received the order. States they told her they never received it. Chart reviewed. Tylenol #3 not ordered. Pharmacy verified. * Telephone Encounter - Jacinta Haro RN - 12/21/2020 2:28 PM CST Tylenol 4 was cancelled ENSING OPERATOR * Telephone Encounter - John Méndez MD - 12/21/2020 2:18 PM CST Ok if you would cancel that script I will send in the new script to be picked up on the 16. Send this back to me and this will help me remember to do it at the end of the day with the others. I am making notes but sometimes I miss one. Thanks. ENSING OPERATOR * Telephone Encounter - Jacinta Haro RN - 12/21/2020 1:48 PM CST Pt has not picked this up yet she can not fill it until the per pharmacist ENSING OPERATOR * Telephone Encounter - John Méndez MD - 12/21/2020 11:57 AM CST If we can make sure that she has not filled the tylenol with codeine yet then I will send in the different dose. ENSING OPERATOR * Telephone Encounter - Antoinette Weeks RN - 12/18/2020 10:26 AM CST Patient calling. She is under a pain contract with PCP. She is currently on Tylenol with codeine #4 300-60mg BID prn. She used to be on Tylenol #3 TID and felt like that controlled her pain better. She is due for a refill this week and asking if PCP would switch her back to the Tylenol #3 TID. The Tylenol #4 was already sent in 12/14/20 with a fill date of 12/20/20, so not picked up yet. With all of the issues at home, her back has been acting up. Her daughter broke his arm, broke his tibia plateau and had surgery last week. Taking care of them has increased her back pain. Please advise. ENSING OPERATOR documented in this encounter Plan of Treatment Upcoming Encounters Date Type Department Care Team (Late st Contact Info) Description 11/02/2024 8:15 AM DISPENSING OPERATOR Office Visit [facility] [address] [place] [address] Dakota Fabian APRN, SPRAY APPLICATOR #[address] [address] 11/26/2024 11:30 AM DISPENSING OPERATOR Office Visit [facility] [address] [place] [address] Maggie Tolentino, [place] [address] [place] [address] documented as of this encounter Visit Diagnoses Not on filedocumented in this encounter Additional Health Concerns Infection Onset Date Last Indicated Resolved Time MRSA 03/30/2020 03/30/2020 COVID - 19 09/11/2024 09/11/2024 09/11/2024 7:21 PM DISPENSING OPERATOR Assessment Noted Time PHQ-9 Depression Total Score: 0 12/15/19 8:53 AM DISPENSING OPERATOR documented as of this encounter Care Teams Bench Mover Relationship Specialty Start Date End Date John Méndez MD PCP - General Family Medicine 09/28/19 04/26/24 Dakota Fabian APRN, SPRAY APPLICATOR #[address] [address] PCP - General Advanced Practice Nurse 04/27/24 documented as of this encounter
--- OUTSIDE RECORDS SUMMARY | 2024-10-20 03:54 | XMS_ITS | Encounter Summary ---
Author Organization [facility] Address [address] [facility] 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 No / Unsure 03/14/2021 8:30 AM CDT documented as of this encounter Miscellaneous Notes * Telephone Encounter - Antoinette Arora RN - 03/23/2021 12:34 PM CDT [place] 02/24/21 Medication failed the protocol, provider to review and approve the medication order if appropriate. Requested Prescriptions Pending Prescriptions Disp Refills acetaminophen-codeine (TYLENOL #3) 300-30 MG Tablet [Pharmacy Med Name: ACETAMINOPHEN-COD #3 TABLET] 90 Tablet 0 Sig: TAKE 1 TABLET BY MOUTH 3 TIMES DAILY NEEDED FOR MODERATE OR MORE SEVERE PAIN. DNF 02/26 [facility] Not Delegated - Analgesics: Opioid Agonist Combinations Failed - 03/23/2021 12:34 PM Failed - This refill cannot be delegated Passed - Valid encounter within last 6 months Past Office Visits Recent Outpatient Visits 1 week ago Acute non-recurrent maxillary sinusitis [facility] John Delarosa MD 2 months ago Moderate episode of recurrent major depressive disorder (HCC) [facility] John Delarosa MD 3 months ago Moderate episode of recurrent major depressive disorder (HCC) [facility] John Delarosa MD 4 months ago Mixed hyperlipidemia [facility] John Delarosa MD 9 months ago Mild intermittent asthma without complication [facility] John Delarosa MD Upcoming Appointments Future Appointments In 2 weeks John Méndez MD [facility] Dave Werner [facility] TELEPATHIST - Recent and Past Visits Recent Visits Date Type Provider Dept 03/14/21 Office Visit John Méndez MD [facility] 01/11/21 Office Visit John Méndez MD [facility] 12/14/20 Office Visit John Méndez MD [facility] 11/15/20 Office Visit John Méndez MD [facility] 06/09/20 Office Visit John Méndez MD [facility] 05/02/20 Office Visit John Méndez MD [facility] 03/30/20 Office Visit John Méndez, MD [facility]essa Werner Showing recent visits within past 460 days with a meds authorizing provider and meeting all other requirements Future Appointments Date Type Provider Dept 04/12/21 Appointment John Méndez MD [facility] Showing future appointments within next 90 days with a meds authorizing provider and meeting all other requirements * Telephone Encounter - Madelin Hartley RN - 03/23/2021 12:21 PM CDT Pt calling in to make sure this was received. documented in this encounter Plan of Treatment Upcoming Encounters Date Type Department Care Team (Late st Contact Info) Description 11/02/2024 8:15 AM RECRUITMENT INTERNSHIP Office Visit [facility] [address] [place] [address] Dakota Fabian APRN, CHEMICALS FERMENTATION OPERATOR #[address] [address] 11/26/2024 11:30 AM RECRUITMENT INTERNSHIP Office Visit [facility] [address]2 [place] [address] Maggie Tolentino, PAC [address] [place] [address] documented as of this encounter Visit Diagnoses Not on filedocumented in this encounter Additional Health Concerns Infection Onset Date Last Indicated Resolved Time MRSA 03/30/2020 03/30/2020 COVID - 19 09/11/2024 09/11/2024 09/11/2024 7:21 PM RECRUITMENT INTERNSHIP Assessment Noted Time PHQ-9 Depression Total Score: 0 12/15/19 21 8:53 AM RECRUITMENT INTERNSHIP documented as of this encounter Care Teams Chronic Condition Nurse Relationship Specialty Start Date End Date John Méndez MD PCP - General Family Medicine 09/28/19 04/26/24 Dakota Fabian APRN, CHEMICALS FERMENTATION OPERATOR [address] [place] [id number] PCP - General Advanced Practice Nurse 04/27/24 documented as of this encounter
--- OUTSIDE RECORDS SUMMARY | 2024-10-20 03:54 | XMS_ITS | Encounter Summary ---
Author Organization [facility] Address [address] [facility] 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 No / Unsure 04/19/2021 8:34 AM CDT documented as of this encounter Miscellaneous Notes * Telephone Encounter - Maxine Booker RN - 04/20/2021 4:07 PM CDT Patient calling to follow up on refill Tylenol #3. Spoke with Antoinette at the office. Per Dr. Dev Curry will address at the end of the day. Patient advised. * Telephone Encounter - Rosemarie Pollack RN - 04/19/2021 2:12 PM CDT [place] last fill date 03/23/21 Medication failed the protocol, provider to review and approve the medication order if appropriate. Requested Prescriptions Pending Prescriptions Disp Refills acetaminophen-codeine (TYLENOL #3) 300-30 MG Tablet [Pharmacy Med Name: ACETAMINOPHEN-COD #3 TABLET] 90 Tablet Sig: TAKE 1 TABLET BY MOUTH 3 TIMES DAILY NEEDED FOR MODERATE OR MORE SEVERE PAIN. DNF 02/26 [facility] Not Delegated - Analgesics: Opioid Agonist Combinations Failed - 04/19/2021 2:12 PM Failed - This refill cannot be delegated Passed - Valid encounter within last 6 months Past Office Visits Recent Outpatient Visits 1 month ago Acute non-recurrent maxillary sinusitis [facility] John Luna MD 3 months ago Moderate episode of recurrent major depressive disorder (HCC) [facility] John Delarosa MD 4 months ago Moderate episode of recurrent major depressive disorder (HCC) [facility] John Delarosa MD 5 months ago Mixed hyperlipidemia [facility] John Luna MD 10 months ago Mild intermittent asthma without complication [facility] John Delarosa MD Upcoming Appointments Future Appointments In 1 week John Méndez MD [facility] FILTER ASSEMBLER - Recent and Past Visits Recent Visits Date 03/14/21 01/11/21 12/14/20 11/15/20 06/09/20 05/02/20 03/30/20 Showing recent visits within past 460 days with a meds authorizing provider and meeting all other requirements Future Appointments Date 05/01/21 Showing future appointments within next 90 days with a meds authorizing provider and meeting all other requirements documented in this encounter Plan of Treatment Upcoming Encounters Date Type Department Care Team (Late st Contact Info) Description 11/02/2024 8:15 AM PACKAGE SEALER Office Visit [facility] [address] [place] [address] Dakota Fabian APRN, SERVICE DOG TRAINER [address] [address] 11/26/2024 11:30 AM PACKAGE SEALER Office Visit [facility] [address] [place] [address] Maggie Tolentino, PAC [address] [place] [address] documented as of this encounter Visit Diagnoses Not on filedocumented in this encounter Additional Health Concerns Infection Onset Date Last Indicated Resolved Time MRSA 03/30/2020 03/30/2020 COVID - 19 09/11/2024 09/11/2024 09/11/2024 7:21 PM PACKAGE SEALER Assessment Noted Time PHQ-9 Depression Total Score: 0 12/15/19 8:53 AM PACKAGE SEALER documented as of this encounter Care Teams Wire Saw Operator Relationship Specialty Start Date End Date John Méndez MD PCP - General Family Medicine 09/28/19 04/26/24 Dakota Fabian, [place], SERVICE DOG TRAINER [address] [place] [address] PCP - General Advanced Practice Nurse 04/27/24 documented as of this encounter
--- OUTSIDE RECORDS SUMMARY | 2024-10-20 03:54 | XMS_ITS | Encounter Summary ---
Author Organization [facility] Address [address] 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 No / Unsure 11/20/2020 6:37 AM DOG LICENSE OFFICER SUPERVISOR documented as of this encounter Miscellaneous Notes * Telephone Encounter - Kelly Palacios RN - 11/24/2020 3:39 PM CST Called and spoke with patient regarding resultslet her know that all of her labs are ok her urine did not show a uti. Her lipid panel is good. Her cbc and thyroid are normal. Patient verbalizes understanding. LICENSE OFFICER SUPERVISOR * Telephone Encounter - Klely Palacios RN - 11/24/2020 3:39 PM CST ----- Message from John Méndez MD sent at 11/24/2020 3:32 PM DOG LICENSE OFFICER SUPERVISOR ----- Let her know that all of her labs are ok her urine did not show a uti. Her lipid panel is good. Hercbc and thyroid are normal. LICENSE OFFICER SUPERVISOR documented in this encounter Plan of Treatment Upcoming Encounters Date Type Department Care Team (Late st Contact Info) Description 11/02/2024 8:15 AM DOG LICENSE OFFICER SUPERVISOR Office Visit [facility] #2 [place] [address] Dakota Fabian APRN, PERCUSSION TUNER [address] [address] 11/26/2024 11:30 AM DOG LICENSE OFFICER SUPERVISOR Office Visit [facility] [address] [place] [address] Maggie Tolentino, [place] [address] [place] [address] documented as of this encounter Visit Diagnoses Not on filedocumented in this encounter Additional Health Concerns Infection Onset Date Last Indicated Resolved Time MRSA 03/30/2020 03/30/2020 Assessment Noted Time PHQ-9 Depression Total Score: 0 10/19/19 12:31 PM DOG LICENSE OFFICER SUPERVISOR documented as of this encounter Care Teams Photograph Mounter Relationship Specialty Start Date End Date John Méndez MD PCP - General Family Medicine 09/28/19 04/26/24 documented as of this encounter
--- OUTSIDE RECORDS SUMMARY | 2024-10-20 03:55 | XMS_ITS | Encounter Summary ---
Author Organization [facility] Address [address] [place] [address] Phone Care Team Providers Care Patient Services Rep Name Role Phone John Méndez MD Primary Care Provider [phone] Reason for Referral * Radiology Services (Routine) - Closed Specialty Diagnoses / Procedures Referred By Contac t Referred To Contact Radiology Diagnoses Breast cancer screening by mammogram Procedures MARCO A SCREENING BILATERAL DIGITAL W CAD W SHENG Jonh Méndez MD Phone: tel: fax: Referral ID Status Reason Start Date Expiration Date Visits Re quested Visits Authorized [id number] Closed 06/09/2020 1 1 Reason for Visit * Reason Comments Abscess Patient is here for an abscess in her armpit x1 week and pt states it is not draining at this time. 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 No / Unsure 06/08/2020 10:15 AM CDT documented as of this encounter Last Filed Vital Signs Vital Sign Reading Time Taken Comments Blood Pressure 132/80 06/09/2020 9:31 AM CDT Pulse 62 06/09/2020 9:31 AM CDT Temperature 36.4 ??C (97.6 ??F) 06/09/2020 9:31 AM CD T Respiratory Rate 16 06/09/2020 9:31 AM CDT Oxygen Saturation 98% 06/09/2020 9:31 AM CDT Inhaled Oxygen Concentration - - Weight 99.1 kg (218 lb 6.4 oz) 06/09/2020 9:31 A M CDT Height 157.5 cm (5' 2 ) 06/09/2020 9:31 AM CDT Body Mass Index 39.95 06/09/2020 9:31 AM CDT documented in this encounter Progress Notes * Maritza Escalera F - 06/09/2020 9:15 AM CDT Melinda Olmedo, 45 y.o., female is here for Abscess (Patient is here for an abscess in her armpit.) Medication Refills: Patient reports/denies need for medication refills. Orders Pended: n/a Requested Prescriptions No prescriptions requested or ordered in this encounter Home Medications Medication Sig Start Date End Date Taking? Authorizing Provider Acetaminophen-Codeine 300-60 MG Tablet TAKE 1 TAB BY MOUTH 2 TIMES DAILY NEEDED FOR MODERATE OR MORE SEVERE PAIN. 05/20/20 John Méndez MD albuterol (PROVENTIL/VENTOLIN) 1.25 MG/3ML Nebulizer Soln take 3 mL by inhalation every 4 hours as needed for Wheezing or Cough. 12/14/19 John Méndez MD amLODIPine (NORVASC) 10 MG Tablet Take 1 Tab by mouth daily. 09/28/19 John Méndez MD atorvastatin (LIPITOR) 20 MG Tablet Take 1 Tab by mouth every evening. 09/28/19 John Méndez MD buPROPion (WELLBUTRIN) 300 MG TABLET SR 24 HR XL tablet Take 300 mg by mouth daily. 06/14/19 Adolfo Sotomayor MD busPIRone (BUSPAR) 15 MG Tablet Take 1 Tab by mouth 2 times daily. 12/02/19 John Méndez MD carvedilol (COREG) 6.25 MG Tablet Take 1 Tab by mouth 2 times daily. 09/28/19 John Méndez MD cetirizine (ZYRTEC) 10 MG Tablet Take 1 Tab by mouth daily. 09/28/19 John Méndez MD hydroCHLOROthiazide 25 MG Tablet Take 1 Tab by mouth daily. 09/28/19 John Méndez MD ibuprofen (MOTRIN) 800 MG Tablet as needed. 06/15/19 Adolfo Sotomayor MD montelukast (SINGULAIR) 10 MG Tablet Take 10 mg by mouth daily. 06/14/19 Adolfo Sotomayor MD PROAIR HFA 108 (90 Base) MCG/ACT Aerosol Solution TAKE 2 PUFFS BY INHALATION EVERY 4 HOURS NEEDED FOR WHEEZING OR COUGH. 12/20/19 John Méndez MD raNITIdine (ZANTAC) 150 MG Tablet Take 150 mg by mouth 2 times daily. 01/06/20 Adolfo Sotomayor MD sertraline (ZOLOFT) 100 MG Tablet Take 2 Tabs by mouth daily. 09/28/19 John Méndez MD tiZANidine (ZANAFLEX) 2 MG Capsule Take 2 mg by mouth nightly. Adolfo Sotomayor MD valsartan (DIOVAN) 40 MG Tablet Take 1 Tab by mouth daily. 01/11/20 John Méndez MD There are no discontinued [...] Health Maintenance Due Topic Date Due ??? Pap Smear 1996 ??? Mammogram 09/05/2020 Orders Pended: no The following BPA's have been addressed with the patient today: Mammogram and Pap * John Méndez MD - 06/09/2020 9:15 AM CDT Subjective: TERESA Melinda Olmedo, 45 y.o. female, is here for acute visit. Patient states that she has 2 more soresin her left axillary region. She finger that they might be MRSA and they are not yet to the point of draining but they are very sore. She says in the past they have been MRSA and this is the same region where she has had the sores. These seem to be hidradenitis and she is very prone to this. Patient notes that it just started up recently. She also states that she is having quite a bit of problemswith her allergies. She says that she is not ill but just having a large amount of congestion and postnasal drainage. She is taking all of her allergy medications and just seems to be having a hard time. She has a large amount of redness to her face also. She notes that she has been borrowing her mother's nebulizer but she never got 1. She does have intermittent asthma which is exacerbated with her allergies and states that she has been wheezing and coughing quite a bit. She is wondering if shecould have a nebulizer for herself. She also needs refills on her asthma medication. Patient notes that she does get short of breath with this and a large amount of coughing. She would also like to see about a cough suppressant for nighttime use as she has trouble sleeping. She says that her back muscles have become very sore secondary to her coughing recently. Past Medical History Positives Diagnosis Date ??? [...] file Occupational History ??? 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 Financial resource strain: Not on file ??? Food insecurity Worry: Not on file Inability: Not on file ??? Transportation needs Medical: Not on file Non-medical: Not on file Tobacco Use ??? Smoking status: Never Smoker ??? Smokeless tobacco: Never Used Substance and Sexual Activity ??? Alcohol use: No ??? Drug use: No ??? Sexual activity: Yes Partners: Male Lifestyle ??? Physical activity Days per week: Not on file Minutes per session: Not on file ??? Stress: Not on file Relationships ??? Social connections Talks on phone: Not on file Gets together: Not on file Attends presybeterian service: Not on file Active member of club or organization: Not on file Attends meetings of clubs or organizations: Not on file Relationship status: Not on file ??? Intimate partner violence Fear of current or ex partner: Not on file Emotionally abused: Not on file Physically abused: Not on file Forced sexual activity: Not on file Other Topics Concern ??? Service No ??? [...] to Visit Medication Sig Dispense Refill ??? Acetaminophen-Codeine 300-60 MG Tablet TAKE 1 TAB BY MOUTH 2 TIMES DAILY NEEDED FOR MODERATEOR MORE SEVERE PAIN. 60 Tab 1 ??? albuterol (PROVENTIL/VENTOLIN) 1.25 MG/3ML Nebulizer Soln take 3 mL by inhalation every 4 hoursas needed for Wheezing or Cough. 90 Vial 3 ??? amLODIPine (NORVASC) 10 MG Tablet Take 1 Tab by mouth daily. 90 Tab 3 ??? atorvastatin (LIPITOR) 20 MG Tablet Take 1 Tab by mouth every evening. 90 Tab 3 ??? buPROPion (WELLBUTRIN) 300 MG TABLET SR 24 HR XL tablet Take 300 mg by mouth daily. 2 ??? busPIRone (BUSPAR) 15 MG Tablet Take 1 Tab by mouth 2 times daily. 270 Tab 3 ??? carvedilol (COREG) 6.25 MG Tablet Take 1 Tab by mouth 2 times daily. 180 Tab 3 ??? cetirizine (ZYRTEC) 10 MG Tablet Take 1 Tab by mouth daily. 90 Tab 3 ??? hydroCHLOROthiazide 25 MG Tablet Take 1 Tab by mouth daily. 90 Tab 3 ??? ibuprofen (MOTRIN) 800 MG Tablet as needed. 0 ??? montelukast (SINGULAIR) 10 MG Tablet Take 10 mg by mouth daily. 3 ??? PROAIR HFA 108 (90 Base) MCG/ACT Aerosol Solution TAKE 2 PUFFS BY INHALATION EVERY 4 HOURS NEEDED FOR WHEEZING OR COUGH. 2 Inhaler 2 ??? raNITIdine (ZANTAC) 150 MG Tablet Take 150 mg by mouth 2 times daily. ??? sertraline (ZOLOFT) 100 MG Tablet Take 2 Tabs by mouth daily. 90 Tab 3 ??? tiZANidine (ZANAFLEX) 2 MG Capsule Take 2 mg by mouth nightly. ??? valsartan (DIOVAN) 40 MG Tablet Take 1 Tab by mouth daily. 30 Tab 3 No current facility-administered medications on file [...] fever and weight loss. HENT: Positive for congestion. Negative for ear discharge, ear pain, nosebleeds, sinus pain and sore throat. Eyes: Negative for blurred vision, double vision, photophobia, pain, discharge and redness. Respiratory: Positive for cough and wheezing. Negative for hemoptysis, sputum production and shortness of breath. Cardiovascular: Negative for chest pain, palpitations, orthopnea, claudication, leg swelling and PND. Musculoskeletal: Positive for myalgias. Negative for falls, joint pain and neck pain. Skin: Negative for itching and rash. Neurological: Negative for dizziness, tingling, tremors, sensory change, speech change, focal weakness, seizures, loss of consciousness, weakness and headaches. Endo/Heme/Allergies: Positive for environmental allergies. Negative for polydipsia. Does not bruise/bleed easily. Objective: BP 132/80 Pulse 62 Temp 97.6 ??F (36.4 ??C) (Temporal) Resp 16 Ht 5' 2 (1.575 m) Wt 218 lb 6.4 oz (99.1 kg) LMP (LMP Unknown) Comment: full SpO2 98% BMI 39.95 kg/m?? Physical Exam Vitals signs and nursing note reviewed. Constitutional: General: She is not in acute distress. Appearance: Normal appearance. She is obese. She is not ill-appearing or diaphoretic. HENT: Head: Normocephalic and atraumatic. Nose: Congestion and rhinorrhea present. Mouth/Throat: Mouth: Mucous membranes are moist. Pharynx: No oropharyngeal exudate or posterior oropharyngeal erythema. Eyes: General: No scleral icterus. Right eye: No discharge. Left eye: No discharge. Extraocular Movements: Extraocular movements intact. Conjunctiva/sclera: Conjunctivae normal. Pupils: Pupils are equal, round, and reactive to light. Neck: Musculoskeletal: Normal range of motion and neck supple. No muscular tenderness. Cardiovascular: Rate and Rhythm: Normal rate and regular rhythm. Pulses: Normal pulses. Heart sounds: Normal heart sounds. No murmur. No friction rub. No gallop. Pulmonary: Effort: Pulmonary effort is normal. Breath sounds: Wheezing present. No rhonchi or rales. Abdominal: General: Bowel sounds are normal. There is no distension. Palpations: Abdomen is soft. Tenderness: There is no abdominal tenderness. There is no guarding or rebound. Musculoskeletal: Right lower leg: No edema. Left lower leg: No edema. Lymphadenopathy: Cervical: No cervical adenopathy. Skin: General: Skin is warm and dry. Coloration: Skin is not pale. Findings: Erythema and lesion present. No rash. Comments: In the left axilla there are two areas of erythema and small amount of swelling. She is very tender. There is not any discharge. Neurological: Mental Status: She is alert and oriented to person, place, and time. Mental status is at baseline. Gait: Gait normal. Requested Number of Results for Past 12 Months Component Units 11/20/192013 WBC 10(3)/mcL 9.76 HEMOGLOBIN g/dL 12.0 HEMATOCRIT % 38.3 PLATELETCNT 10(3)/mcL 317 SGPTALT U/L 26 SGOTAST U/L 24 SODIUM mmol/L 137 POTASSIUM mmol/L 3.3* CHLORIDE mmol/L 98* CREATININE mg/dL 0.54* BUN mg/dL 11 CO2VEN mmol/L 29 GLUCOSE mg/dL 98 Assessment /Plan 1. Mild intermittent asthma without complication Given some robitussin. She is also given order for nebulizer and also albuterol for the nebulizer. - guaiFENesin-codeine (guaiFENesin AC) 100-10 MG/5ML Solution; Take 5 mL by mouth every 4 hours as needed for Cough for up to 7 days. Dispense: 300 mL; Refill: 0 - NEBULIZER DEVICE, WITH COMPRESSOR 2. Carbuncle of left axilla Started doxycycline. This is for 10 days. She is to call if this does not improve or if this worsens. Likely hidrandentitis. - doxycycline hyclate (VIBRAMYCIN) 100 MG Capsule; Take 1 Cap by mouth 2 times daily for 10 days. Dispense: 20 Cap; Refill: 0 3. Wheezing nebulilzer ordered. Cont with allergies medications. She is also given some robitussin with codeineto help her to stop the cough at night and try to sleep. Also order albuterol neb treatments. - albuterol (PROVENTIL/VENTOLIN) 1.25 MG/3ML Nebulizer Soln; take 3 mL by inhalation every 4 hours as needed for Wheezing or Cough. Dispense: 90 Vial; Refill: 3 - guaiFENesin-codeine (guaiFENesin AC) 100-10 MG/5ML Solution; Take 5 mL by mouth every 4 hours as needed for Cough for up to 7 days. Dispense: 300 mL; Refill: 0 4. Breast cancer screening by mammogram Ordered for patient - MARCO A SCREENING BILATERAL DIGITAL W CAD W SHENG; Future documented in this encounter Plan of Treatment Upcoming Encounters Date Type Department Care Team (Late st Contact Info) Description 11/02/2024 8:15 AM CHIEF TRANSFER AND PUMPHOUSE OPERATOR Office Visit [facility] [address] [place] [address] Dakota Fabian APRN, DELIVERY REP [address] [address] 11/26/2024 11:30 AM CHIEF TRANSFER AND PUMPHOUSE OPERATOR Office Visit [facility] [address] [place] [address] Maggie Tolentino PAC [address] [place] [address] documented as of this encounter Results * MARCO A SCREENING BILATERAL DIGITAL W CAD W SHENG (07/22/2020 10:32 AM CDT) Anatomical Region Laterality Modality breast Bilateral Mammography 07/22/2020 10:1 1 AM CDT Narrative 07/24/2020 6:14 AM CDT - MARCO A SCREENING BILATERAL DIGITAL W CAD W SHENG BILATERAL DIGITAL SCREENING MAMMOGRAM 3D/2D WITH CAD WITH MEDIOLATERAL OBLIQUE CRANIOCAUDAL: 07/22/2020 The study was acquired using digital technology and interpreted from soft copy. ?? Current study was also evaluated with ICAD version 7.2. ?? CLINICAL: Routine screening. Patient has no complaints. No personal history of cancer. Mother with breast cancer. ?? COMPARISONS: Comparison is made to exams dated: ??02/13/2016, 09/05/2018, and 12/27/2014 [facility]. ?? BREAST TISSUE:The tissue of both breasts is predominantly fatty. ?? FINDINGS: No significant masses, calcifications, or other findings are seen in either breast. ?? There has been no significant interval change. IMPRESSION: BI-RAD 1 ??NEGATIVE There is no mammographic evidence of malignancy. A 1 year screening mammogram is recommended. ?? The patient has been or will be contacted. ?? The patient will be entered into a reminder system with a target due date of 1 year for her next screening exam. Electronically signed by: Killian Sandoval M.D. ? ll/penrad:07/23/2020 20:19:36 ?? Python Django Developer: Nina Metcalf RT(R)(M), [facility] letter sent: Normal Exam ?? Reading location: [facility] BI-RADS: 1 Negative Procedure Note Killian Sandoval MD - 07/24/2020 - MARCO A SCREENING BILATERAL DIGITAL W CAD W SHENG BILATERAL DIGITAL SCREENING MAMMOGRAM 3D/2D WITH CAD WITH MEDIOLATERAL OBLIQUE CRANIOCAUDAL: 07/22/2020 The study was acquired using digital technology and interpreted from soft copy. Current study was also evaluated with ICAD version 7.2. CLINICAL: Routine screening. Patient has no complaints. No personal history of cancer. Mother with breast cancer. COMPARISONS: Comparison is made to exams dated: 02/13/2016, 09/05/2018, and 12/27/2014 [facility]. BREAST TISSUE:The tissue of both breasts is predominantly fatty. FINDINGS: No significant masses, calcifications, or other findings are seen in either breast. There has been no significant interval change. IMPRESSION: BI-RAD 1 NEGATIVE There is no mammographic evidence of malignancy. A 1 year screening mammogram is recommended. The patient has been or will be contacted. The patient will be entered into a reminder system with a target due date of 1 year for her next screening exam. Electronically signed by: Killian barron/antoine:07/23/2020 20:19:36 Python Django Developer: Nina Metcalf RT(R)(M), [facility] letter sent: Normal Exam Reading location: [facility] BI-RADS: 1 Negative us John Méndez MD IMG MAMMO ORDERABLES Final Resul t documented in this encounter Visit Diagnoses Diagnosis Mild intermittent asthma without complication- Primary Unspecified asthma Carbuncle of left axilla Carbuncle and furuncle of upper arm and forearm Wheezing Breast cancer screening by mammogram Breast cancer screening by mammogram documented in this encounter Additional Health Concerns Infection Onset Date Last Indicated Resolved Time MRSA 03/30/2020 03/30/2020 Assessment Noted Time PHQ-9 Depression Total Score: 0 10/19/19 20 12:31 PM CHIEF TRANSFER AND PUMPHOUSE OPERATOR documented as of this encounter Care Teams Patient Services Rep Relationship Specialty Start Date End Date John Méndez MD PCP - General Family Medicine 09/28/19 04/26/24 documented as of this encounter
--- OUTSIDE RECORDS SUMMARY | 2024-10-20 03:55 | XMS_ITS | Encounter Summary ---
Author Organization [facility] Address [address] 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 Not Delegated - Analgesics: Opioid Agonist Combinations Failed - 03/23/2020 9:31 AM Failed - This refill cannot be delegated Passed - Valid encounter within last 6 months Past Office Visits Recent Outpatient Visits 3 months ago Influenza [facility] John Potter MD 3 months ago Acute maxillary sinusitis, recurrence not specified [facility] John Potter MD 4 months ago Spider bite wound, accidental or unintentional, subsequent encounter [facility] Aylin Juan APN, MIGUEL ANGEL 5 months ago Brown recluse spider bite or sting, accidental or unintentional, subsequent encounter [facility] Aylin Juan APN, MIGUEL ANGEL 5 months ago Acute URI [facility] Dakota Fabian APN, MIGUEL ANGEL Upcoming Appointments documented in this encounter Plan of Treatment Upcoming Encounters Date Type Department Care Team (Late st Contact Info) Description 11/02/2024 8:15 AM LIGHTER CAPTAIN Office Visit [facility] [address] [place] [address] Dakota Fabian APRN, LATIN TEACHER [address] [address] 11/26/2024 11:30 AM LIGHTER CAPTAIN Office Visit [facility] [address] [place] [address] Maggie Tolentino PAC [address] [place] [address] documented as of this encounter Visit Diagnoses Not on filedocumented in this encounter Additional Health Concerns Infection Onset Date Last Indicated Resolved Time MRSA 03/30/2020 03/30/2020 COVID - 19 09/11/2024 09/11/2024 09/11/2024 7:21 PM LIGHTER CAPTAIN Assessment Noted Time PHQ-9 Depression Total Score: 0 10/19/19 20 12:31 PM LIGHTER CAPTAIN documented as of this encounter Care Teams Computer Systems Software Engineer Relationship Specialty Start Date End Date John Méndez MD PCP - General Family Medicine 09/28/19 04/26/24 Dakota Fabian APRN, LATIN TEACHER [address] [address] PCP - General Advanced Practice Nurse 04/27/24 documented as of this encounter
--- OUTSIDE RECORDS SUMMARY | 2024-10-20 03:55 | XMS_ITS | Encounter Summary ---
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 No / Unsure 05/02/2020 12:31 PM CDT documented as of this encounter Plan of Treatment Upcoming Encounters Date Type Department Care Team (Late st Contact Info) Description 11/02/2024 8:15 AM CARPET LOOM FIXER Office Visit [facility] - Family Medicine [facility] [address] [place] [address] Dakota Fabian, VIBRATOR EQUIPMENT TESTER, DIRECTOR IT PROJECT [address] [address] 11/26/2024 11:30 AM CARPET LOOM FIXER Office Visit [facility] [place] [address] [place] [address] Maggie Tolentino, PAC [address] [place] [address] documented as of this encounter Visit Diagnoses Not on filedocumented in this encounter Additional Health Concerns Infection Onset Date Last Indicated Resolved Time MRSA 03/30/2020 03/30/2020 Assessment Noted Time PHQ-9 Depression Total Score: 0 10/19/19 20 12:31 PM CARPET LOOM FIXER documented as of this encounter Care Teams Poultry Picker Relationship Specialty Start Date End Date John Méndez MD PCP - General Family Medicine 09/28/19 04/26/24 documented as of this encounter
--- OUTSIDE RECORDS SUMMARY | 2024-10-20 03:55 | XMS_ITS | Encounter Summary ---
Author Organization [facility] Address [address] [place] [address] Phone Care Team Providers Care Mechanical Design Engineer Products Name Role Phone John Méndez MD Primary Care Provider [phone] Reason for Visit * Reason Onset Date Comments COVID-19 02/11/2020 Fever 02/11/2020 02/11/20, 102.1 Sore Throat 02/11/2020 02/10/20 Encounter Details Date Type Department Care Team (Late st Contact Info) Description 02/11/2020 Nurse Triage 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 No / Unsure 02/11/2020 1:42 PM CDT documented as of this encounter Miscellaneous Notes * Telephone Encounter - Laurel Wei RN - 02/18/2020 3:32 PM CDT Patient is aware and verbalizes understanding. * Telephone Encounter - John Méndez MD - 02/18/2020 3:17 PM CDT No more cough syrup. She has asked for this three times since the end of december. That is a little excessive. I had one bottle several years ago and did not even use a fourth of this. * Telephone Encounter - Jeannie Mejia RN - 02/18/2020 11:24 AM CDT Patient requesting prescription cough syrup to help her get through the night. Will PCP order? * Telephone Encounter - Caitlin Jean RN - 02/11/2020 4:49 PM CDT SITUATION: Productive cough, sore throat BACKGROUND: 2 weeks ASSESSMENT: Symptom Description / Location: Patient is calling and states she has a yellow greenish productive cough and discharge from the nose. Patient reports a bad sore throat. Denies SOb or chest pain. Pain (0-10): 7/10 Temp: 102.3 F then tylenol took the fever away Treatment / Response: Tylenol helps RECOMMENDATION: See care advice and disposition for Guideline First positive answer recorded, all responses to prior questions were negative. If symptoms increase, change or if new symptoms develop, call your HCP or call back. Recommendations were based on caller information and is not a diagnosis. Verified and reviewed all triage information with caller. Reason for Disposition ??? SEVERE sore throat pain Protocols used: SORE THROAT-A-OH Due to it being late on a Friday and us being closed. Patient reports she will go to the [facility] in [place] for a strep test. * Telephone Encounter - John Méndez MD - 02/11/2020 3:17 PM CDT 1st we need to know how high of fever? Also she will not just be able to get screened because having a fever puts them out of the nurse clinic so she will have to see a provider. So she will have to be seen and be put in a mask and put in our respiration room. * Telephone Encounter - Jeannie Mejia RN - 02/11/2020 1:54 PM CDT Patient calling with fever and sore throat. Was advised by the covid hotline to call PCP for strep screen. Patients covid screen was negative. Will PCP order strep screen for patient. Please advise. * Telephone Encounter - Thad Ribeiro - 02/11/2020 1:41 PM CDT Images from the original note were not included. Travel Screening Question Response Do you have any of the following symptoms? Sore throat;Fever;Severe headache In the last month, have you been in contact with someone who was confirmed or suspected to have Coronavirus / COVID-19? No / Unsure Have you traveled internationally in the last month? No Travel History Travel since 01/12/20 No documented travel since 01/12/20 Patients whose symptoms require immediate emergency assistance should be directed to contact 911 for emergency assistance. If the triage nurse is calling 911, notify them of the negative screening. Screening Positive/Negative? NEGATIVE Patient is experiencing COVID-19 type symptoms but has not been exposed or travelled - Educate patient using CDC care guidelines and ask patient/caller if they would like to speak to cellophaner. Did patient request cellophaner? no ??? Patient counseled to remain at home unless symptoms get worse and to quarantine for 14 days from symptom onset. ??? Patient to push fluid intake and take medication for fever if needed. ??? If you do not live alone: segregate yourself, use a separate bathroom if possible, sleep in a separate area, have no family time, and the person with symptoms is not to prepare food for others. ??? If symptoms worsen the patient was counseled to call back to their primary care provider office. ??? Seek emergency care only if symptoms warrant. How to Discontinue Home Isolation People that have home isolated for 14 days. If symptoms have not developed once 14 days are passed;the self-isolation may stop. People with COVID-19 type symptoms who have stayed home (home isolated) can stop home isolation under the following conditions: 1. No fever (100.0 for HCW, 100.4 for lay people) for 3 days (without the use of fever reducing medicine) AND 2. Other symptoms have improved (i.e. cough, SOB) AND 3. At least 7 days have passed since your symptoms first appeared Caller verbalizes understanding of the above information. Thad Ribeiro documented in this encounter Plan of Treatment Upcoming Encounters Date Type Department Care Team (Late st Contact Info) Description 11/02/2024 8:15 AM METER SUPERVISOR Office Visit [facility] [address] [place] [address] Dakota Fabian, PRODUCT DISTRIBUTION SPECIALIST, AVIATION TECHNICAL SYSTEMS SPECIALIST [address] [address] 11/26/2024 11:30 AM METER SUPERVISOR Office Visit [facility] [address] [place] [address] Maggie Tolentino, PAC [address] [place] [address] documented as of this encounter Visit Diagnoses Not on filedocumented in this encounter Additional Health Concerns Assessment Noted Time PHQ-9 Depression Total Score: 0 10/19/19 20 12:31 PM METER SUPERVISOR documented as of this encounter Care Teams Mechanical Design Engineer Products Relationship Specialty Start Date End Date John Méndez MD PCP - General Family Medicine 09/28/19 04/26/24 documented as of this encounter
--- OUTSIDE RECORDS SUMMARY | 2024-10-20 03:55 | XMS_ITS | Encounter Summary ---
Author Organization [facility] Address [address] 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 SPORTATION DEPARTMENT HEAD documented in this encounter Plan of Treatment Upcoming Encounters Date Type Department Care Team (Late st Contact Info) Description 11/02/2024 8:15 AM TRANSPORTATION DEPARTMENT HEAD Office Visit [facility] [address] [place] [address] Dakota Fabian APRN, ANGLE SHEARER [address] [address] 11/26/2024 11:30 AM TRANSPORTATION DEPARTMENT HEAD Office Visit [facility] [address] [place] [address] Maggie Tolentino, PAC [address] [place] [address] documented as of this encounter Visit Diagnoses Not on filedocumented in this encounter Additional Health Concerns Assessment Noted Time PHQ-9 Depression Total Score: 0 10/19/19 20 12:31 PM TRANSPORTATION DEPARTMENT HEAD documented as of this encounter Care Teams Aircraft Systems Technician Relationship Specialty Start Date End Date John Méndez MD PCP - General Family Medicine 09/28/19 04/26/24 documented as of this encounter
--- OUTSIDE RECORDS SUMMARY | 2024-10-20 03:55 | XMS_ITS | Encounter Summary ---
Author Organization [facility] Address [address] [place] [address] Phone Care Team Providers Care Human Resource Statistician Name Role Phone John Méndez MD Primary Care Provider [phone] Reason for Visit * Reason Comments [facility]. Non productive cough started about 3 days ago states pt. 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 Not on file documented as of this encounter Last Filed Vital Signs Vital Sign Reading Time Taken Comments Blood Pressure 136/98 12/02/2019 9:55 AM ALUMINUM SIDING APPLICATOR Pulse 76 12/02/2019 9:55 AM ALUMINUM SIDING APPLICATOR Temperature 37.2 ??C (99 ??F) 12/02/2019 9:55 AM ALUMINUM SIDING APPLICATOR Respiratory Rate 16 12/02/2019 9:55 AM ALUMINUM SIDING APPLICATOR Oxygen Saturation 98% 12/02/2019 9:55 AM ALUMINUM SIDING APPLICATOR Inhaled Oxygen Concentration - - Weight 106.2 kg (234 lb 1.6 oz) 12/02/2019 9:55 AM ALUMINUM SIDING APPLICATOR Height 157.5 cm (5' 2 ) 12/02/2019 9:55 AM ALUMINUM SIDING APPLICATOR Body Mass Index 42.82 12/02/2019 9:55 AM ALUMINUM SIDING APPLICATOR documented in this encounter Progress Notes * Emani Lehman, RMA - 12/02/2019 10:00 AM CST Melinda Izzy Olmedo, 44 y.o., female is here for Cough (Patient presents today for a cough and congestion. Non productive cough started about 3 days ago states pt.) Medication Refills: Patient reports/denies need for medication refills. Orders Pended: no Requested Prescriptions No prescriptions requested or ordered in this encounter Home Medications Medication Sig Start Date End Date Taking? Authorizing Provider acetaminophen-codeine (TYLENOL #3) 300-30 MG Tablet TAKE 1-2 TABS BY MOUTH 3 TIMES DAILY NEEDED FOR MODERATE OR MORE SEVERE PAIN. 11/25/19 Yes John Méndez MD amLODIPine (NORVASC) 10 MG Tablet Take 1 Tab by mouth daily. 09/28/19 Yes John Méndez MD atorvastatin (LIPITOR) 20 MG Tablet Take 1 Tab by mouth every evening. 09/28/19 Yes John Méndez MD buPROPion (WELLBUTRIN) 150 MG XL tablet Take 150 mg by mouth daily. Yes Emergency, Nurse, RN buPROPion (WELLBUTRIN) 300 MG TABLET SR 24 HR XL tablet Take 300 mg by mouth daily. 06/14/19 Yes Provider, MD Adolfo busPIRone (BUSPAR) 15 MG Tablet Take 1 Tab by mouth 4 times daily. Patient taking differently: Take 15 mg by mouth 2 times daily. 09/28/19 Yes John Méndez MD carvedilol (COREG) 6.25 MG Tablet Take 1 Tab by mouth 2 times daily. 09/28/19 Yes John éMndez MD cetirizine (ZYRTEC) 10 MG Tablet Take 1 Tab by mouth daily. 09/28/19 Yes John Méndez MD hydroCHLOROthiazide 25 MG Tablet Take 1 Tab by mouth daily. 09/28/19 Yes John Méndez MD ibuprofen (MOTRIN) 800 MG Tablet as needed. 06/15/19 ProviderAdolfo MD losartan (COZAAR) 25 MG Tablet Take 1 Tab by mouth daily. 09/28/19 Yes John Méndez MD montelukast (SINGULAIR) 10 MG Tablet Take 10 mg by mouth daily. 06/14/19 Yes ProviderAdolfo MD ondansetron (ZOFRAN) 4 MG Tablet Take 1 Tab by mouth every 8 hours as needed for Nausea - 1st line.11/20/19 Tisha Rosario PAC sertraline (ZOLOFT) 100 MG Tablet Take 2 Tabs by mouth daily. 09/28/19 Yes John Méndez MD tiZANidine (ZANAFLEX) 2 MG Capsule Take 2 mg by mouth nightly. Provider, MD Adolfo There are no discontinued medications. I have reviewed the home medication list with the patient and have reconciled discrepancies. The list is accurate to the best of my knowledge. Smoking Status: Social History Tobacco Use ??? Smoking status: Never Smoker ??? Smokeless tobacco: Never Used Substance Use Topics ??? Alcohol use: No ??? Drug use: No Smoking Cessation Counseling Given: n/a Health Care Maintenance: Health Maintenance Due Topic Date Due ??? Pap Smear 1996 Orders Pended: no The following BPA's have been addressed with the patient today: PAP. INUM SIDING APPLICATOR * John Méndez MD - 12/02/2019 10:00 AM CST Subjective: HPI Melindavinita Olmedo, 44 y.o. female, is here for cold cymptoms for an acute visit. She has had a cough for three days. Non productive. Pt has chronic problems with allergies and sinus congestion. She says that she has been congested and can feel this in her throat. She has been trying to get this up but it is not coming. She notes that her throat is irritated. She had to sleep pascale recliner last night due to the cough. She also has difficulty breathing through her nose. She is taking her allergy medications as prescribed. She says that the winter is her worst season. She notes that she has seen allergy, ENT and sinus specialist but they say that it is just how she is made. Nothing that they can do to improve this and she will continue to get the sinus inflammation. Past Medical History Positives Diagnosis Date ??? [...] file Occupational History ??? 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 Financial resource strain: Not on file ??? Food insecurity: Worry: Not on file Inability: Not on file ??? Transportation needs: Medical: Not on file Non-medical: Not on file Tobacco Use ??? Smoking status: Never Smoker ??? Smokeless tobacco: Never Used Substance and Sexual Activity ??? Alcohol use: No ??? Drug use: No ??? Sexual activity: Yes Partners: Male Lifestyle ??? Physical activity: Days per week: Not on file Minutes per session: Not on file ??? Stress: Not on file Relationships ??? Social connections: Talks on phone: Not on file Gets together: Not on file Attends gnosticism service: Not on file Active member of club or organization: Not on file Attends meetings of clubs or organizations: Not on file Relationship status: Not on file ??? Intimate partner violence: Fear of current or ex partner: Not [...] acetaminophen-codeine (TYLENOL #3) 300-30 MG Tablet TAKE 1-2 TABS BY MOUTH 3 TIMES DAILY NEEDED FOR MODERATE OR MORE SEVERE PAIN. 90 Tab 0 ??? amLODIPine (NORVASC) 10 MG Tablet Take 1 Tab by mouth daily. 90 Tab 3 ??? atorvastatin (LIPITOR) 20 MG Tablet Take 1 Tab by mouth every evening. 90 Tab 3 ??? buPROPion (WELLBUTRIN) 150 MG XL tablet Take 150 mg by mouth daily. ??? buPROPion (WELLBUTRIN) 300 MG TABLET SR 24 HR XL tablet Take 300 mg by mouth daily. 2 ??? busPIRone (BUSPAR) 15 MG Tablet Take 1 Tab by mouth 4 times daily. (Patient taking differently:Take 15 mg by mouth 2 times daily.) 270 Tab 3 ??? carvedilol (COREG) 6.25 MG Tablet Take 1 Tab by mouth 2 times daily. 180 Tab 3 ??? cetirizine (ZYRTEC) 10 MG Tablet Take 1 Tab by mouth daily. 90 Tab 3 ??? hydroCHLOROthiazide 25 MG Tablet Take 1 Tab by mouth daily. 90 Tab 3 ??? ibuprofen (MOTRIN) 800 MG Tablet as needed. 0 ??? losartan (COZAAR) 25 MG Tablet Take 1 Tab by mouth daily. 90 Tab 3 ??? montelukast (SINGULAIR) 10 MG Tablet Take 10 mg by mouth daily. 3 ??? ondansetron (ZOFRAN) 4 MG Tablet Take 1 Tab by mouth every 8 hours as needed for Nausea - 1st line. 10 Tab 0 ??? sertraline (ZOLOFT) 100 MG Tablet Take [...] pain, hearing loss, nosebleeds and tinnitus. Eyes: Negative. Respiratory: Positive for cough. Negative for sputum production, shortness of breath and wheezing. Coughs when ever she tries to take deep breath. Cardiovascular: Negative for chest pain, palpitations, orthopnea, claudication, leg swelling and PND. Musculoskeletal: Negative. Skin: Negative for itching and rash. Neurological: Positive for headaches. Negative for dizziness. Psychiatric/Behavioral: Negative. Objective: BP (!) 136/98 Pulse 76 Temp 99 ??F (37.2 ??C) (Tympanic) Resp 16 Ht 5' 2 (1.575 m) Wt 234 lb 1.6 oz (106.2 kg) LMP (LMP Unknown) SpO2 98% BMI 42.82 kg/m?? Physical Exam Vitals signs and nursing note reviewed. Constitutional: General: She is not in acute distress. Appearance: She is well-developed. She is obese. She is ill-appearing. She is not diaphoretic. HENT: Head: Normocephalic and atraumatic. Right Ear: Ear canal and external ear normal. A middle ear effusion is present. Tympanic membrane is not erythematous. Left Ear: Ear canal and external ear normal. A middle ear effusion is present. Tympanic membrane isnot erythematous. Nose: Mucosal edema and rhinorrhea present. Right Sinus: Maxillary sinus tenderness present. Left Sinus: Maxillary sinus tenderness present. Mouth/Throat: Mouth: Mucous membranes are moist. No oral lesions. Dentition: Normal dentition. Pharynx: Uvula midline. Posterior oropharyngeal erythema present. No oropharyngeal exudate. Tonsils: No tonsillar abscesses. Eyes: General: No scleral icterus. Right eye: No discharge. Left eye: No discharge. Conjunctiva/sclera: Conjunctivae normal. Pupils: Pupils are equal, round, and reactive to light. Neck: Musculoskeletal: Normal range of motion and neck supple. Muscular tenderness present. Thyroid: No thyromegaly. Cardiovascular: Rate and Rhythm: Normal rate and regular rhythm. Heart sounds: Normal heart sounds. No murmur. No friction rub. No gallop. Pulmonary: Effort: Pulmonary effort is normal. Breath sounds: Normal breath sounds. Decreased air movement (coughs when she takes a deep breath. )present. No wheezing, rhonchi or rales. Lymphadenopathy: Cervical: Cervical adenopathy present. Neurological: Mental Status: She is alert and oriented to person, place, and time. Cranial Nerves: No cranial nerve deficit. Psychiatric: Behavior: Behavior normal. Thought Content: Thought content normal. Judgment: Judgment normal. Requested Number of Results for Past 12 Months Component Units 11/20/192013 WBC 10(3)/mcL 9.76 HEMOGLOBIN g/dL 12.0 HEMATOCRIT % 38.3 PLATELETCNT 10(3)/mcL 317 SGPTALT U/L 26 SGOTAST U/L 24 SODIUM mmol/L 137 POTASSIUM mmol/L 3.3* CHLORIDE mmol/L 98* CREATININE mg/dL 0.54* BUN mg/dL 11 CO2VEN mmol/L 29 GLUCOSE mg/dL 98 Assessment/Plan 1. Acute maxillary sinusitis, recurrence not specified Will treat with zpak and given some cough mediations. I did tell her that the cough is likely due to the bronchospasm. She is to use the albuterol prn. - guaiFENesin-codeine (GUAIFENESIN AC) 100-10 MG/5ML Solution; Take 10 mL by mouth every 4 hours asneeded for Cough for up to 7 days. Dispense: 300 mL; Refill: 0 - azithromycin (ZITHROMAX) 250 MG Tablet; 2 tab(s) daily for 1 day, then 1 tab(s) daily for days 2-5. Dispense: 6 Tab; Refill: 0 2. Wheezing Given duoneb in office. This did help given albuterol inhaler to help. - ipratropium-albuterol (DUONEB) 0.5-2.5 (3) MG/3ML Solution; 3 mL by Nebulization route once for 1dose. Dispense: 3 mL; Refill: 0 - albuterol 108 (90 Base) MCG/ACT Aerosol Solution; take 2 Puffs by inhalation every 4 hours as needed for Wheezing or Cough. Dispense: 8.5 g; Refill: 0 3. Bronchospasm, acute duoneb did help a lot in the office. Will give albuterol inhlaer. She is to call if this does not improve. - ipratropium-albuterol (DUONEB) 0.5-2.5 (3) MG/3ML Solution; 3 mL by Nebulization route once for 1dose. Dispense: 3 mL; Refill: 0 - ALBUTEROL IPRATROP NON-COMP - INHAL RX, AIRWAY OBST/DX SPUTUM INDUCT - albuterol 108 (90 Base) MCG/ACT Aerosol Solution; take 2 Puffs by inhalation every 4 hours as needed for Wheezing or Cough. Dispense: 8.5 g; Refill: 0 4. Anxiety Cont with buspar. Refilled today. - busPIRone (BUSPAR) 15 MG Tablet; Take 1 Tab by mouth 2 times daily. Dispense: 270 Tab; Refill: 3 INUM SIDING APPLICATOR documented in this encounter Plan of Treatment Upcoming Encounters Date Type Department Care Team (Late st Contact Info) Description 11/02/2024 8:15 AM ALUMINUM SIDING APPLICATOR Office Visit [facility] [address] [place] [address] Dakota Fabian, TAR LEVELER, WATCH TRAIN ASSEMBLER [address] [address] 11/26/2024 11:30 AM ALUMINUM SIDING APPLICATOR Office Visit [facility] - [facility] - [place] [address] [place] [address] Maggie Tolentino, PAC [address] [place] [address] Scheduled Orders Name Type Priority Associated Diagnoses Orde r Schedule INHAL RX, AIRWAY OBST/DX SPUTUM INDUCT Procedures Routine Bronchospasm, acute Ordered: 12/02/2019 documented as of this encounter Visit Diagnoses Diagnosis Acute maxillary sinusitis, recurrence not specified- Primary Wheezing Bronchospasm, acute Acute bronchospasm Anxiety Anxiety state, unspecified documented in this encounter Additional Health Concerns Assessment Noted Time PHQ-9 Depression Total Score: 0 10/19/19 20 12:31 PM ALUMINUM SIDING APPLICATOR documented as of this encounter Care Teams Human Resource Statistician Relationship Specialty Start Date End Date John Méndez MD PCP - General Family Medicine 09/28/19 04/26/24 documented as of this encounter
--- OUTSIDE RECORDS SUMMARY | 2024-10-20 03:55 | XMS_ITS | Encounter Summary ---
Author Organization [facility] Address [address] 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 No / Unsure 01/07/2020 8:41 AM CDT documented as of this encounter Miscellaneous Notes * Telephone Encounter - Tisha Kingsley, RN - 01/11/2020 1:46 PM CDT Losartan is backordered. Please send an alternative documented in this encounter Plan of Treatment Upcoming Encounters Date Type Department Care Team (Late st Contact Info) Description 11/02/2024 8:15 AM MANAGER EMPLOYMENT Office Visit [facility] [address] [place] [address] Dakota Fabian APRN, XEROX MACHINE MECHANIC #[address] [address] 11/26/2024 11:30 AM MANAGER EMPLOYMENT Office Visit [facility] [address] [place] [address] Maggie Tolentino, PAC [address] [place] [address] documented as of this encounter Visit Diagnoses Not on filedocumented in this encounter Additional Health Concerns Assessment Noted Time PHQ-9 Depression Total Score: 0 10/19/19 20 12:31 PM MANAGER EMPLOYMENT documented as of this encounter Care Teams Licensed Prosthetist/Orthotist Relationship Specialty Start Date End Date John Méndez MD PCP - General Family Medicine 09/28/19 04/26/24 documented as of this encounter
--- OUTSIDE RECORDS SUMMARY | 2024-10-20 03:55 | XMS_ITS | Encounter Summary ---
Author Organization [facility] Address [address] 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 Pulmonology: Beta Agonists - Albuterol & Levalbuterol Failed - 12/20/2019 10:34 AM Failed - May refill 2 inhalers, 0 refills one time since last office visit. May refill #50 nebulizer vials, 0 refills for albuterol or #48 vials, 0 refills for Xopenex one time since last office visit. Passed - Valid encounter within last 6 months Past Office Visits Recent Outpatient Visits 6 days ago Influenza [facility] John Méndez MD 2 weeks ago Acute maxillary sinusitis, recurrence not specified [facility] John M[facility]dez MD 1 month ago Spider bite wound, accidental or unintentional, subsequent encounter [facility] Aylin Juan APN, GENERAL STORE MANAGER 2 months ago Brown recluse spider bite or sting, accidental or unintentional, subsequent encounter [facility] Aylin Juan APN, GENERAL STORE MANAGER 2 months ago Acute URI [facility] Dakota Fabian APN, CNP Upcoming Appointments Future Appointments In 1 week John Méndez MD [facility] PHYSICIAN [facility], [facility] Passed - Last BP in normal range BP Readings from Last 1 Encounters: 12/14/19 128/72 Powered by [employer] - 12/20/2019 10:34 AM The requested medication is not on the active medication list. documented in this encounter Plan of Treatment Upcoming Encounters Date Type Department Care Team (Late st Contact Info) Description 11/02/2024 8:15 AM ELECTRO WINNING OPERATOR Office Visit [facility] - Family Medicine - [place] [address] [place] [address] Dakota Fabian APRN, MAINTENANCE SERVICE DISPATCHER #[address] [address] 11/26/2024 11:30 AM ELECTRO WINNING OPERATOR [facility] Visit [facility] [address] [place] [address] Maggie Tolentino, [facility] [address]2 [place] [address] documented as of this encounter Visit Diagnoses Diagnosis Wheezing Bronchospasm, acute Acute bronchospasm documented in this encounter Additional Health Concerns Assessment Noted Time PHQ-9 Depression Total Score: 0 10/19/19 20 12:31 PM ELECTRO WINNING OPERATOR documented as of this encounter Care Teams Doctor Of Radiology Relationship Specialty Start Date End Date John Méndez MD PCP - General Family Medicine 09/28/19 04/26/24 documented as of this encounter
--- OUTSIDE RECORDS SUMMARY | 2024-10-20 03:55 | XMS_ITS | Encounter Summary ---
Author Organization [facility] Address [address] 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 No / Unsure 01/07/2020 8:41 AM CDT documented as of this encounter Miscellaneous Notes * Telephone Encounter - Antoinette Vera RN - 01/24/2020 8:20 AM CDT Patient calling and stating that [facility] pharmacy is only giving her #30 and then 15 days later, they give her #30. Called [facility] pharmacy and pharmacist stated that she thinks it is due to patient's insurance, but she is not sure why patient is only getting #30 at a time. States that patient's last refill was on 01/11 #30. Notified patient. Voiced understanding. Order pended for your review. documented in this encounter Plan of Treatment Upcoming Encounters Date Type Department Care Team (Late st Contact Info) Description 11/02/2024 8:15 AM MONITORING COORDINATOR [facility] [place] [facility] [place] [address] Dakota Fabian APRN, TIP LENGTH CHECKER #[address] [address] 11/26/2024 11:30 AM MONITORING COORDINATOR [facility] [place] [facility] [place] [address] Maggie Tolentino, PAC [address] [place] [address] documented as of this encounter Visit Diagnoses Not on filedocumented in this encounter Additional Health Concerns Infection Onset Date Last Indicated Resolved Time MRSA 03/30/2020 03/30/2020 COVID - 19 09/11/2024 09/11/2024 09/11/2024 7:21 PM MONITORING COORDINATOR Assessment Noted Time PHQ-9 Depression Total Score: 0 10/19/19 20 12:31 PM MONITORING COORDINATOR documented as of this encounter Care Teams Telesales Agent Relationship Specialty Start Date End Date John Méndez MD PCP - General Family Medicine 09/28/19 04/26/24 Dakota Fabian, STOCK PATCH SAWYER, TIP LENGTH CHECKER [address]2 [place] [id number] PCP - General Advanced Practice Nurse 04/27/24 documented as of this encounter
--- OUTSIDE RECORDS SUMMARY | 2024-10-20 03:55 | XMS_ITS | Encounter Summary ---
Author Organization [facility] Address [address] [facility] 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 No / Unsure 07/22/2020 10:05 AM CDT documented as of this encounter Miscellaneous Notes * Telephone Encounter - Mitzi Fitzgerald RN - 06/08/2020 10:09 AM CDT SITUATION (caller perception/concerns): 2 large abcesses in left armpit BACKGROUND (events leading up to call): 4-5 days Sees a specialist (provider name, reason): no If so, last visit: na History: MRSA LMP//: na ASSESSMENT: Onset: 4-5 days ago Symptoms: Has 2 spots in her left armpit, each spot about size of nickel and they are merging together, has stopped shaving, hurts to put on deodorant and hasn't been able to tolerate wearing a bra because if anything bumps area it is too painful, no drainage Pain: Present now: yes Length of time present: 4-5 days Constant or intermittent: constant Description of pain: throbbing Level of pain/location: Left armpit - hurts to touch Ability to perform daily activities: affects Temp (route, time): Red, swollen and warm to touch Other Symptoms: none Treatment with response: Applied heat but has not brought it to a head RECOMMENDATION: Appointment made 06/08/[address] Méndez See care advice and disposition for guideline. [...] Teach-back method utilized. Reason for Disposition ??? Looks like a boil, infected sore, deep ulcer, or other infected rash (spreading redness, pus) Protocols used: RASH OR REDNESS - [id number] * Telephone Encounter - Mitzi Fitzgerald RN - 06/08/2020 10:09 AM CDT Summary: Dr. Méndez - thinks she has a spot of MRSA that has returned in her armpit RFC: Melinda is calling stating that she thinks she has a spot of MRSA that has returned in her armpit. ??Please call Melinda (relationship to patient self) back regarding above referenced patient. Patient's Provider is John Méndez MD ?? Call History Type Contact Phone User 06/08/2020 08:49 AM CDT Phone (Incoming) Shara Melinda Izzy (Self) [phone] (H) Santiago Salgado 06/08/2020 08:49 AM CDT Phone (Incoming) Melinda Olmedo Mark documented in this encounter Plan of Treatment Upcoming Encounters Date Type Department Care Team (Late st Contact Info) Description 11/02/2024 8:15 AM CASTING PLUG ASSEMBLER Office Visit [facility] [address] [place] [address] Dakota Fabian APRN, DIRECTOR OF EDUCATION AND TRAINING #[address] [address] 11/26/2024 11:30 AM CASTING PLUG ASSEMBLER Office Visit [facility] [address] [place] [address] Maggie Tolentino, PAC [address] [place] [address] documented as of this encounter Visit Diagnoses Not on filedocumented in this encounter Additional Health Concerns Infection Onset Date Last Indicated Resolved Time MRSA 03/30/2020 03/30/2020 Assessment Noted Time PHQ-9 Depression Total Score: 0 10/19/19 20 12:31 PM CASTING PLUG ASSEMBLER documented as of this encounter Care Teams Brake Lining Driller Relationship Specialty Start Date End Date John Méndez MD PCP - General Family Medicine 09/28/19 04/26/24 documented as of this encounter
--- OUTSIDE RECORDS SUMMARY | 2024-10-20 03:55 | XMS_ITS | Encounter Summary ---
Author Organization [facility] Address [address] 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 Verbalized understanding. * Telephone Encounter - John Méndez MD - 12/21/2019 5:20 PM CDT This comes with the flu. There is nothing that I can give her as this just has to run its course. Some coughs last longer than others. It is good to get the coughing out. * Telephone Encounter - Aleshia Rodriguez RN - 12/21/2019 4:43 PM CDT Summary: cough meds Patient was given Tamaflu last week but still has a non productive and non stop cough. Call History Type Contact Phone User 12/21/2019 02:47 PM Phone (Incoming) Melinda Olmedo [phone] (H) Muriel Herrera cough med Patient states she is calling Robutussin DM and Nyquil, nose sprays, and inhalers, nothing is helping her cough. She states she just coughs throughout the night. Denies any pain. Is provider willing to send something in for patient? Please advise. documented in this encounter Plan of Treatment Upcoming Encounters Date Type Department Care Team (Late st Contact Info) Description 11/02/2024 8:15 AM DEMURRAGE AGENT Office Visit [facility] [address] [place] [address] Dakota Fabian APRN, DIGITAL ART DIRECTOR #[address] [address] 11/26/2024 11:30 AM DEMURRAGE AGENT Office Visit [facility] [address] [place] [address] Maggie Tolentino, PAC [address] [place] [address] documented as of this encounter Visit Diagnoses Not on filedocumented in this encounter Additional Health Concerns Assessment Noted Time PHQ-9 Depression Total Score: 0 10/19/19 20 12:31 PM DEMURRAGE AGENT documented as of this encounter Care Teams Aviation Survival Technician Relationship Specialty Start Date End Date John Méndez MD PCP - General Family Medicine 09/28/19 04/26/24 documented as of this encounter
--- OUTSIDE RECORDS SUMMARY | 2024-10-20 03:55 | XMS_ITS | Encounter Summary ---
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 [...] st Contact Info) Description 11/02/2024 8:15 AM RECORD TESTER Office Visit [facility] Medical Group - Family Medicine [facility] [address]2 [place] [address] Dakota Fabian, MILLED LUMBER GRADER, JAILER CHIEF #[address] [address] 11/26/2024 11:30 AM RECORD TESTER Office Visit [facility] - [place] [address] [place] [address] Maggie Tolentino, [facility] #[address] [place] [address] documented as of this encounter Visit Diagnoses Not on filedocumented in this encounter Additional Health Concerns Assessment Noted Time PHQ-9 Depression Total Score: 0 10/19/19 20 12:31 PM RECORD TESTER documented as of this encounter Care Teams Wind Operations Supervisor Relationship Specialty Start Date End Date John Méndez MD PCP - General Family Medicine 09/28/19 04/26/24 documented as of this encounter
--- OUTSIDE RECORDS SUMMARY | 2024-10-20 03:55 | XMS_ITS | Encounter Summary ---
Author Organization [facility] Address [address] 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 No / Unsure 06/08/2020 10:15 AM CDT documented as of this encounter Miscellaneous Notes * Telephone Encounter - Lien Hensley RN - 06/12/2020 7:38 AM CDT Faxed order for nebulizer to [facility]. documented in this encounter Plan of Treatment Upcoming Encounters Date Type Department Care Team (Late st Contact Info) Description 11/02/2024 8:15 AM CABIN MAN Office Visit [facility] [address] [place] [address] Dakota Fabian APRN, ACADEMIC AFFAIRS SPECIALIST #[address] [address] 11/26/2024 11:30 AM CABIN MAN Office Visit [facility] [address] [place] [address] Maggie Tolentino, PAC [address] [place] [address] documented as of this encounter Visit Diagnoses Not on filedocumented in this encounter Additional Health Concerns Infection Onset Date Last Indicated Resolved Time MRSA 03/30/2020 03/30/2020 Assessment Noted Time PHQ-9 Depression Total Score: 0 10/19/19 20 12:31 PM CABIN MAN documented as of this encounter Care Teams Senior Sharepoint Architect Relationship Specialty Start Date End Date John Méndez MD PCP - General Family Medicine 09/28/19 04/26/24 documented as of this encounter
--- OUTSIDE RECORDS SUMMARY | 2024-10-20 03:55 | XMS_ITS | Encounter Summary ---
Author Organization [facility] Address [address] 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 No / Unsure 01/07/2020 8:41 AM CDT documented as of this encounter Miscellaneous Notes * Telephone Encounter - Aleshia Rodriguez RN - 01/07/2020 1:40 PM CDT Notified patient. Verbalized understanding. Patient states she's currently not having any other symptoms but agrees to call office back if she does. * Telephone Encounter - John Méndez MD - 01/07/2020 10:11 AM CDT I will do one bottle but no more than this unless she has a documented issue other than allergies. Please tell her that I know that she might not think it is anything but if she has shortness of breath or other symptoms she needs to let us know. * Telephone Encounter - Caitlin Jean RN - 01/07/2020 8:40 AM CDT Patient is calling and states that the pollen count has been high and she has post nasal drip. No fever or congestion. Clear runny nose. Patient is calling and asking if PCP will refill the cough syrup with codeine to help her suppress the cough at night so she can sleep? Please advise documented in this encounter Plan of Treatment Upcoming Encounters Date Type Department Care Team (Late st Contact Info) Description 11/02/2024 8:15 AM PLASTER MAKER Office Visit [facility] [address] [place] [address] Dakota Fabian APRN, HOG MAN [address] [place] [address] [address] 11/26/2024 11:30 AM PLASTER MAKER Office Visit [facility] [address] [place] [address] Maggie Tolentino, [facility] #[address] [place] [address] documented as of this encounter Visit Diagnoses Not on filedocumented in this encounter Additional Health Concerns Assessment Noted Time PHQ-9 Depression Total Score: 0 10/19/19 20 12:31 PM PLASTER MAKER documented as of this encounter Care Teams Net Application Architect Relationship Specialty Start Date End Date John Méndez MD PCP - General Family Medicine 09/28/19 04/26/24 documented as of this encounter
--- OUTSIDE RECORDS SUMMARY | 2024-10-20 03:55 | XMS_ITS | Encounter Summary ---
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 [...] st Contact Info) Description 11/02/2024 8:15 AM PRESSER ALL AROUND Office Visit [facility] Medical Group - Family Medicine [facility] [address] [place] [address] Dakota Fabian, ENVIRONMENTAL MAINTENANCE WORKER, AUTOMATION ENGINEERING TECHNICIAN #[address] [address] 11/26/2024 11:30 AM PRESSER ALL AROUND Office Visit [facility] - [facility] - [place] [address] [place] [address] Maggie Tolentino, [facility] #2 [place] [address] documented as of this encounter Visit Diagnoses Not on filedocumented in this encounter Additional Health Concerns Assessment Noted Time PHQ-9 Depression Total Score: 0 10/19/19 20 12:31 PM PRESSER ALL AROUND documented as of this encounter Care Teams Veterinary Assistant Relationship Specialty Start Date End Date John Méndez MD PCP - General Family Medicine 09/28/19 04/26/24 documented as of this encounter
--- OUTSIDE RECORDS SUMMARY | 2024-10-20 03:55 | XMS_ITS | Encounter Summary ---
Author Organization [facility] Address [address] 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 No / Unsure 05/02/2020 12:31 PM CDT documented as of this encounter Last Filed Vital Signs Vital Sign Reading Time Taken Comments Blood Pressure 128/72 05/02/2020 1:04 PM CDT Pulse 67 05/02/2020 1:04 PM CDT Temperature 36.5 ??C (97.7 ??F) 05/02/2020 1:04 PM CD T Respiratory Rate 18 05/02/2020 1:04 PM CDT Oxygen Saturation 98% 05/02/2020 1:04 PM CDT Inhaled Oxygen Concentration - - Weight 103.2 kg (227 lb 8 oz) 05/02/2020 1:04 PM CDT Height 157.5 cm (5' 2 ) 05/02/2020 1:04 PM CDT Body Mass Index 41.61 05/02/2020 1:04 PM CDT documented in this encounter Progress Notes * Mily Sanabria, TEXTILE MACHINERY SALES REPRESENTATIVE - 05/02/2020 1:00 PM CDT Melinda Izzy Olmedo, 45 y.o., female is here for Cough (dry cough/sinus pressure) Medication Refills: Patient reports/denies need for medication refills. Orders Pended: no Requested Prescriptions No prescriptions requested or ordered in this encounter Home Medications Medication Sig Start Date End Date Taking? Authorizing Provider Acetaminophen-Codeine 300-60 MG Tablet TAKE 1 TAB BY MOUTH 2 TIMES DAILY NEEDED FOR MODERATE OR MORE SEVERE PAIN. 03/23/20 Yes John Méndez MD albuterol (PROVENTIL/VENTOLIN) 1.25 [...] as needed. 06/15/19 Yes Adolfo Sotomayor MD montelukast (SINGULAIR) 10 MG Tablet Take 10 mg by mouth daily. 06/14/19 Adolfo Sotomayor MD PROAIR HFA 108 (90 Base) MCG/ACT Aerosol Solution TAKE 2 PUFFS BY INHALATION EVERY 4 HOURS NEEDED FOR WHEEZING OR COUGH. 12/20/19 Yes John Méndez MD raNITIdine (ZANTAC) 150 MG Tablet Take 150 mg by mouth 2 times daily. 01/06/20 Adolfo Sotomayor MD sertraline (ZOLOFT) 100 MG Tablet Take 2 Tabs by mouth daily. 09/28/19 Yes John Méndez MD tiZANidine (ZANAFLEX) 2 MG Capsule Take 2 mg by mouth nightly. Yes Adolfo Sotomayor MD valsartan (DIOVAN) 40 MG Tablet Take 1 Tab by mouth daily. 01/11/20 Yes John Méndez MD There are no [...] today: Pap * John Méndez MD - 05/02/2020 1:00 PM CDT Subjective: HPI Melinda Olmedo, 45 y.o. female, is here for acute visit. She notes that she is very congested. She states that she has a lot of drainage and this causes a dry cough. She is rarely ever able to produce any sputum. She notes that she would like the cough medication as she is unable to sleep due to the cough. She says that she is itching in the nose and has a lot of pressure in the maxillary area of her sinuses. She says that if she bends over that there is a huge amount of pressure. She is verydizzy also. She has a history of chronic sinusitis. She notes that her is ill also. She notes that no one else at home is sick. She has seen ENT in the past. She is on zyrtec and also singulair. Past Medical History Positives Diagnosis Date ??? [...] file Occupational History ??? 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 Financial resource strain: Not [...] file Gets together: Not on file Attends muslim service: Not on file Active member of [...] behavior Paternal Grandfather Review of Systems Constitutional: Negative for chills, diaphoresis, fever, malaise/fatigue and weight loss. HENT: Positive for congestion and sinus pain. Negative for ear discharge, ear pain, nosebleeds, sore throat and tinnitus. Eyes: Negative. Respiratory: Positive for cough. Negative for sputum production, shortness of breath and wheezing. Cardiovascular: Negative. Gastrointestinal: Negative. Musculoskeletal: Negative. Skin: Negative for itching and rash. Neurological: Positive for dizziness. Negative for headaches. Objective: BP 128/72 Pulse 67 Temp 97.7 ??F (36.5 ??C) (Temporal) Resp 18 Ht 5' 2 (1.575 m) Wt 227 lb 8 oz (103.2 kg) LMP (LMP Unknown) Comment: full SpO2 98% BMI 41.61 kg/m?? Physical Exam Vitals signs and nursing note reviewed. Constitutional: General: She is not in acute distress. Appearance: Normal appearance. She is obese. She is ill-appearing. She is not diaphoretic. HENT: Head: Normocephalic and atraumatic. Right Ear: Tympanic membrane, ear canal and external ear normal. Left Ear: Tympanic membrane, ear canal and external ear normal. Nose: Congestion (r>l) present. No rhinorrhea. Right Turbinates: Enlarged, swollen and pale. Left Turbinates: Enlarged, swollen and pale. Right Sinus: Maxillary sinus tenderness present. Left Sinus: Maxillary sinus tenderness present. Mouth/Throat: Lips: [place]. Mouth: Mucous membranes are moist. Dentition: Normal dentition. Tongue: No lesions. Palate: No mass and lesions. Pharynx: Pharyngeal swelling and posterior oropharyngeal erythema present. No oropharyngeal exudateor uvula swelling. Neck: Musculoskeletal: Normal range of motion and neck supple. No muscular tenderness. Cardiovascular: Rate and Rhythm: Normal rate and regular rhythm. Heart sounds: Normal heart sounds. No murmur. No friction rub. No gallop. Pulmonary: Effort: Pulmonary effort is normal. Breath sounds: Normal breath sounds. No wheezing, rhonchi or rales. Lymphadenopathy: Cervical: Cervical adenopathy present. Neurological: Mental Status: She is alert. Cranial Nerves: No cranial nerve deficit. Gait: Gait normal. Psychiatric: Mood and Affect: Mood normal. Behavior: Behavior normal. Thought Content: Thought content [...] 29 GLUCOSE mg/dL 98 Assessment/Plan 1. Acute non-recurrent maxillary sinusitis Will cont with allergy medications. She is also to have levaquin 500 Mg Qd and also gave her cough meds to take at night to help her sleep. Pt is to call if she does not improve. Pt voiced understanding. - levoFLOXacin (LEVAQUIN) 500 MG Tablet; Take 1 Tab by mouth daily for 10 days. Dispense: 10 Tab; Refill: 0 - guaiFENesin-codeine (GUAIFENESIN AC) 100-10 MG/5ML Solution; Take 5 mL by mouth every 4 hours as needed for Cough for up to 10 days. Dispense: 300 mL; Refill: 0 documented in this encounter Plan of Treatment Upcoming Encounters Date Type Department Care Team (Late st Contact Info) Description 11/02/2024 8:15 AM [employer] HCM DEVELOPER Office Visit [facility] [place] [address] [place] [address] Dakota Fabian, POCKET BUILDER, FARM ADVISOR [address] [address] 11/26/2024 11:30 AM [employer] HCM DEVELOPER Office Visit [facility] [place] [address] [place] [address] Maggie Tolentino, PAC [address] [place] [address] documented as of this encounter Visit Diagnoses Diagnosis Acute non-recurrent maxillary sinusitis- Primary documented in this encounter Additional Health Concerns Infection Onset Date Last Indicated Resolved Time MRSA 03/30/2020 03/30/2020 Assessment Noted Time PHQ-9 Depression Total Score: 0 10/19/19 20 12:31 PM [employer] H[employer] DEVELOPER documented as of this encounter Care Teams Business Operations Coordinator Relationship Specialty Start Date End Date John Méndez MD PCP - General Family Medicine 09/28/19 04/26/24 documented as of this encounter
--- OUTSIDE RECORDS SUMMARY | 2024-10-20 03:55 | XMS_ITS | Encounter Summary ---
Author Organization [facility] Address [address] [place] [address] Phone Care Team Providers Care Packing Shed Supervisor Name Role Phone John Méndez MD Primary Care Provider [phone] Encounter Details Date Type Department Care Team (Late st Contact Info) Description 11/16/2020 9:20 AM CONTROL SYSTEMS TECHNICIAN Lab [facility] [address] [address] 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 No / Unsure 11/15/2020 9:30 AM CONTROL SYSTEMS TECHNICIAN documented as of this encounter Progress Notes * Radha Winston - 11/16/2020 9:20 AM CST Melinda presents for lab draw per order of dr méndez dated [id number]. Specimen collected from left antecubital without incident. [facility] ROL SYSTEMS TECHNICIAN documented in this encounter Plan of Treatment Upcoming Encounters Date Type Department Care Team (Late st Contact Info) Description 11/02/2024 8:15 AM CONTROL SYSTEMS TECHNICIAN Office Visit [facility] [address]2 [facility] [address] Dakota Fabian APRN, HEATER HELPER FORGE [address] [address] 11/26/2024 11:30 AM CONTROL SYSTEMS TECHNICIAN Office Visit [facility] #2 [facility] [address] Maggie Tolentino, PAC [address] [place] [address] documented as of this encounter Procedures Procedure Name Priority Date/Time Associated Diagnosis Comments VITAMIN D, 25 HYDROXY TOTAL Routine 11/16/2020 9:28 AM CONTROL SYSTEMS TECHNICIAN Moderate episode of recurrent major depressive disorder (HCC) URINALYSIS REFLEX IF INDICATED BY ABNORMAL RESULTS Routine 11/16/2020 9:28 AM CONTROL SYSTEMS TECHNICIAN Essential hypertension CBC WITH AUTO DIFFERENTIAL Routine 11/16/2020 9:28 AM CONTROL SYSTEMS TECHNICIAN Essential hypertension VITAMIN B12 Routine 11/16/2020 9:28 AM CONTROL SYSTEMS TECHNICIAN Moderate episode of recurrent major depressive disorder (HCC) THYROXINE (T4) FREE Routine 11/16/2020 9 :28 AM CONTROL SYSTEMS TECHNICIAN Essential hypertension THYROID STIMULATING HORMONE (TSH) Routine 11/16/2020 9:28 AM CONTROL SYSTEMS TECHNICIAN Essential hypertension LIPID PANEL Routine 11/16/2020 9:28 AM CONTROL SYSTEMS TECHNICIAN Mixed hyperlipidemia CULTURE, URINE Routine 11/16/2020 9:28 AM CONTROL SYSTEMS TECHNICIAN Essential hypertension CMP (COMPREHENSIVE METABOLIC PANEL) Routine 11/16/2020 9:28 AM CONTROL SYSTEMS TECHNICIAN Essential hypertension COMPLETE BLOOD COUNT (CBC) WITH DIFF Routine 11/16/2020 9:28 AM CONTROL SYSTEMS TECHNICIAN Essential hypertension documented in this encounter Results * CULTURE, URINE (11/16/2020 9:28 AM CONTROL SYSTEMS TECHNICIAN) Pathologist [facility] CULTURE RESULTS MIXED GROWTH OF ONE OR MORE DISTAL URETHRAL CONTAMINANTS 11/18/2020 10:18 AM CONTROL SYSTEMS TECHNICIAN [facility] Urine URINE SPECIMEN / Unknown Non-Phlebotomy Collection / Unknown 11/16/2020 9:28 AM CONTROL SYSTEMS TECHNICIAN 11/16/2020 9:28 AM CONTROL SYSTEMS TECHNICIAN us John Méndez MD MICROBIOLOGY - GENERAL ORDERABLE S Final Result Performing Organization Address City/State/[facility] Co de Phone Number [facility] [address] [place] [address], * (ABNORMAL) CBC WITH AUTO DIFFERENTIAL (11/16/2020 9:28 AM CONTROL SYSTEMS TECHNICIAN) Pathologist [facility] WBC 5.85 4.00 - 12.00 10(3)/mcL 11/16/2020 12:35 PM CONTROL SYSTEMS TECHNICIAN [facility] RBC 4.90 3.80 - 5.30 10(6)/mcL 11/16/2020 12:35 PM CONTROL SYSTEMS TECHNICIAN [facility] HEMOGLOBIN (HGB) 12.7 12.0 - 15.8 g/dL 11/16/2020 12:35 PM CONTROL SYSTEMS TECHNICIAN [facility] HEMATOCRIT (HCT) 41.5 36.0 - 47.0 % 11/16/2020 12:35 PM CONTROL SYSTEMS TECHNICIAN [facility] MCV 84.7 82.0 - 96.0 fL 11/16/2020 12:35 PM [facility] MCH 25.9(L) 26.0 - 34.0 pg 11/16/2020 12:35 PM [facility] MCHC 30.6(L) 31.0 - 36.0 g/dL 11/16/2020 12:35 PM [facility] PLATELET COUNT 380 140 - 440 10(3)/[facility] 11/16/2020 12:35 PM [facility] RDW 13.9 11.8 - 15.5 % 11/16/2020 12:35 PM [facility] MPV 10.4 9.7 - 12.4 fL 11/16/2020 12:35 PM [facility] NEUTROPHILS 62.6 47.0 - 73.0 % 11/16/2020 12:35 PM [facility] LYMPHOCYTES 24.3 18.0 - 42.0 % 11/16/2020 12:35 PM [facility] MONOCYTES 5.8 4.0 - 12.0 % 11/16/2020 12:35 PM [facility] EOSINOPHILS 6.3(H) 0.0 - 5.0 % 11/16/2020 12:35 PM [facility] BASOPHILS 1.0 0.0 - 1.0 % 11/16/2020 12:35 PM [facility] ABSOLUTE NEUTROPHILS 3.66 1.60 - 7.70 10(3)/mcL 11/16/2020 12:35 PM [facility] ABSOLUTE LYMPHOCYTES 1.42 1.30 - 3.20 10(3)/mcL 11/16/2020 12:35 PM [facility] ABSOLUTE MONOCYTES 0.34 0.20 - 1.00 10(3)/[facility] 11/16/2020 12:35 PM [facility] ABSOLUTE EOSINOPHIL 0.37 0.00 - 0.40 10(3)/[facility] 11/16/2020 12:35 PM [facility] ABSOLUTE BASOPHILS 0.06 0.00 - 0.10 10(3)/mcL 11/16/2020 12:35 PM CONTROL SYSTEMS TECHNICIAN [facility] NRBC PER 100 WBC 0 11/16/19 12:35 PM CONTROL SYSTEMS TECHNICIAN [facility] Blood Venipuncture / Unknown 11/16/2020 9:28 AM CONTROL SYSTEMS TECHNICIAN 11/16/2020 9:28 AM CONTROL SYSTEMS TECHNICIAN us John Méndez MD HEMATOLOGY ORDERABLES Final Resu lt Performing Organization Address City/[facility]/ZIP Co de Phone Number [facility] [address] [place] [address] * VITAMIN B12 (11/16/2020 9:28 AM CONTROL SYSTEMS TECHNICIAN) VITAMIN B12 426 243 - 894 pg/mL 11/16/2020 2:01 PM CONTROL SYSTEMS TECHNICIAN [facility] Blood Venipuncture / Unknown 11/16/2020 9:28 AM CONTROL SYSTEMS TECHNICIAN 11/16/2020 9:28 AM CONTROL SYSTEMS TECHNICIAN us John Méndez MD CHEMISTRY ORDERABLES Final Resul t Performing Organization Address [facility] Co de Phone Number [facility] [address] [place] [address] * (ABNORMAL) VITAMIN D, 25 HYDROXY TOTAL (11/16/2020 9:28 AM CONTROL SYSTEMS TECHNICIAN) VITAMIN D, 25 HYDROX 20(L) >=30 ng/mL 11/16/2020 2:01 PM CONTROL SYSTEMS TECHNICIAN [facility] Blood Venipuncture / Unknown 11/16/2020 9:28 AM CONTROL SYSTEMS TECHNICIAN 11/16/2020 9:28 AM CONTROL SYSTEMS TECHNICIAN Narrative [facility] - 11/16/2020 2:01 PM CONTROL SYSTEMS TECHNICIAN Published reference ranges for Vitamin D vary depending on time and place and method of testing, and on patient's age, sex, ethnicity and levels of other measured analytes such as parathormone, calcium and phosphorus. ??The result should be evaluated in conjunction with clinical findings and suspicions. [employer] and Endocrine Clinical Practice Guidelines: Status Vitamin D levels (ng/mL) Deficient <=20 At risk of inadequacy 21-29 Sufficient 30-100 Centers of Disease Control and Prevention Guidelines: Status Vitamin D levels (ng/mL) Deficient <13 At risk of inadequacy 13-19 Sufficient 20-50 Possibly harmful >50 References: [employer], 2010 Dietary reference intakes for calcium and vitamin D. [place]: ??The National Academies Press. Vijay M, Fabiana N, Jerrod ISBELL, et al., Evaluation, treatment, and prevention of Vitamin D deficiency: an Endocrinology Clinical Practice Guideline. JCEM 2011 96: 7 8012-8050. Kathy A, Amari C, Maicol Conroy, et al., Vitamin D Status: ??[facility], 1005, [facility] data brief, no. 59, MD [place]: ??National Center for Health Statistics. 2010. John Méndez MD CHEMISTRY ORDERABLES Final Resul t Performing Organization Address City/[facility]/ZIP Co de Phone Number [facility] [address] [place] [address] * THYROXINE (T4) FREE (11/16/2020 9:28 AM CONTROL SYSTEMS TECHNICIAN) T4 FREE 1.3 0.9 - 1.7 ng/dL 11/16/2020 1:51 PM CONTROL SYSTEMS TECHNICIAN [facility] Blood Venipuncture / Unknown 11/16/2020 9:28 AM CONTROL SYSTEMS TECHNICIAN 11/16/2020 9:28 AM CONTROL SYSTEMS TECHNICIAN John Méndez MD CHEMISTRY ORDERABLES Final Resul t Performing Organization Address City/[facility]/ZIP Co de Phone Number [facility] [address] [place] [address] * THYROID STIMULATING HORMONE (TSH) (11/16/2020 9:28 AM CONTROL SYSTEMS TECHNICIAN) TSH 2.910 0.270 - 4.200 mIU/L 11/16/2020 1:51 PM CONTROL SYSTEMS TECHNICIAN [facility] Blood Venipuncture / Unknown 11/16/2020 9:28 AM CONTROL SYSTEMS TECHNICIAN 11/16/2020 9:28 AM CONTROL SYSTEMS TECHNICIAN John Méndez MD CHEMISTRY ORDERABLES Final Resul t Performing Organization Address City/[facility]/ZIP Co de Phone Number [facility] [address] [place] [address] * LIPID PANEL (11/16/2020 9:28 AM CONTROL SYSTEMS TECHNICIAN) CHOLESTEROL 171 <=200 mg/dL 11/16/2020 1:51 PM CONTROL SYSTEMS TECHNICIAN [facility] TRIGLYCERIDES 144 <150 mg/dL 11/16/2020 1:51 PM CONTROL SYSTEMS TECHNICIAN [facility] HDL CHOLESTEROL 52.6 >40 mg/dL 1:51 PM CONTROL SYSTEMS TECHNICIAN [facility] LDL 90 5 - 130 mg/dL 11/16/2020 1:51 PM CONTROL SYSTEMS TECHNICIAN [facility] VLDL 29 5 - 55 mg/dL 11/16/2020 1:51 PM CONTROL SYSTEMS TECHNICIAN [facility] CHOL/HDL RATIO 3.3 0.0 - 4.4 11/16/2020 1:51 PM CONTROL SYSTEMS TECHNICIAN [facility] NON-HDL CHOLESTEROL 118.4 <130 mg/dL 11/16/2020 1:51 PM CONTROL SYSTEMS TECHNICIAN [facility] IS THE PATIENT REQUIRED TO BE FASTING? Yes 11/16/2020 1:51 PM CONTROL SYSTEMS TECHNICIAN [facility] HAS THE PATIENT BEEN FASTING? Yes 11/16/2020 1:51 PM CONTROL SYSTEMS TECHNICIAN [facility] Blood Venipuncture / Unknown 11/16/2020 9:28 AM CONTROL SYSTEMS TECHNICIAN 11/16/2020 9:28 AM CONTROL SYSTEMS TECHNICIAN John Méndez MD CHEMISTRY ORDERABLES Final Resul t Performing Organization Address City/[facility]/ZIP Co de Phone Number [facility] [address] [place] [address] * CMP (COMPREHENSIVE METABOLIC PANEL) (11/16/2020 9:28 AM CONTROL SYSTEMS TECHNICIAN) SODIUM 140 136 - 144 mmol/L 11/16/2020 1:51 PM [facility] POTASSIUM 4.0 3.5 - 5.1 mmol/L 11/16/2020 1:51 PM [facility] CHLORIDE 103 100 - 110 mmol/L 11/16/2020 1:51 PM [facility] CO2, VENOUS 27 22 - 32 mmol/L 11/16/2020 1:51 PM [facility] ANION GAP 14.0 8.0 - 20.0 mmol/L 11/16/2020 1:51 PM [facility] GLUCOSE 90 70 - 99 mg/dL 11/16/2020 1:51 PM [facility] BUN 11 6 - 20 mg/dL 11/16/2020 1:51 PM [facility] CREATININE, BLOOD 0.65 0.60 - 1.10 mg/dL 11/16/2020 1:51 PM [facility] BUN/CREATININE RATIO 17 12 - 20 ratio 11/16/2020 1:51 PM [facility] TOTAL PROTEIN 7.7 6.0 - 8.3 g/dL 11/16/2020 1:51 PM [facility] ALBUMIN 4.5 3.5 - 5.2 g/dL 11/16/2020 1:51 PM [facility] Comment: The colormetric methods used for the determination of Albumin may lead to falsely elevated test results in patients suffering from renal failure or insufficiency due to interference with other proteins. A/G RATIO 1.4 1.0 - 2.0 11/16/2020 1:51 PM [facility] CALCIUM 9.3 8.9 - 10.3 mg/dL 11/16/2020 1:51 PM [facility] T BILI 0.4 <=1.2 mg/dL 11/16/2020 1:51 PM CONTROL SYSTEMS TECHNICIAN [facility] SGOT (AST) 15 <=32 U/L 11/16/2020 1:51 PM CONTROL SYSTEMS TECHNICIAN [facility] SGPT (ALT) 14 <=41 U/L 11/16/2020 1:51 PM CONTROL SYSTEMS TECHNICIAN [facility] ALKALINE PHOSPHATASE 68 35 - 105 U/L 11/16/2020 1:51 PM CONTROL SYSTEMS TECHNICIAN [facility] GFR, EST. NONAFRICAN >60 >=60 11/16/2020 1:51 PM CONTROL SYSTEMS TECHNICIAN [facility] GFR, EST. >60 >=60 021 1:51 PM CONTROL SYSTEMS TECHNICIAN [facility] Comment: Creatinine Clearance is the preferred criteria for selecting drug dose adjustments in renally impaired patients. ??The GFR is provided as additional pertinent clinical information. GFR is reported in mL/min/1.73 sq m. IS THE PATIENT REQUIRED TO BE FASTING? No 11/16/2020 1:51 PM CONTROL SYSTEMS TECHNICIAN [facility] Blood Venipuncture / Unknown 11/16/2020 9:28 AM CONTROL SYSTEMS TECHNICIAN 11/16/2020 9:28 AM CONTROL SYSTEMS TECHNICIAN us John Méndez MD CHEMISTRY ORDERABLES Final Resul t [facility] [address] [place] [address] * (ABNORMAL) URINALYSIS REFLEX IF INDICATED BY ABNORMAL RESULTS (11/16/2020 9:28 AM CONTROL SYSTEMS TECHNICIAN) SPECIFIC GRAVITY 1.020 1.003 - 1.030 11/16/2020 4:39 PM CONTROL SYSTEMS TECHNICIAN [facility] URINE PH 5.0 5.0 - 9.0 11/16/2020 4:39 PM [facility] WBC ESTERASE 100 /uL(A) Negative 11/16/2020 4:39 PM CONTROL SYSTEMS TECHNICIAN [facility] NITRITE Negative Negative 11/16/2020 4:39 PM CONTROL SYSTEMS TECHNICIAN [facility] PROTEIN, RANDOM URINE 15 mg/dL(A) Negative 11/16/2020 4:39 PM CONTROL SYSTEMS TECHNICIAN [facility] URINE GLUCOSE, QUAL Negative Negative 11/16/2020 4:39 PM CONTROL SYSTEMS TECHNICIAN [facility] URINE KETONES Negative Negative 11/16/2020 4:39 PM CONTROL SYSTEMS TECHNICIAN [facility] UROBILINOGEN Normal Normal mg/dL 11/16/2020 4:39 PM CONTROL SYSTEMS TECHNICIAN [facility] URINE BILIRUBIN Negative Negative 4:39 PM CONTROL SYSTEMS TECHNICIAN [facility] URINE BLOOD 10 /uL(A) Negative marjorie/ul 11/16/2020 4:39 PM CONTROL SYSTEMS TECHNICIAN [facility] URINALYSIS COLOR Dark Yellow 021 4:39 PM CONTROL SYSTEMS TECHNICIAN [facility] URINALYSIS CLARITY Very Cloudy 11/16/2020 4:39 PM CONTROL SYSTEMS TECHNICIAN [facility] WBC (Urine) 11-20(A) Negative, 0-5 /hpf 11/16/2020 4:39 PM CONTROL SYSTEMS TECHNICIAN [facility] URINE RBC'S 3-5(A) Negative, 0-2 /hpf 11/16/2020 4:39 PM CONTROL SYSTEMS TECHNICIAN [facility] EPITHELIAL CELLS Small amount /lpf 2020 4:39 PM CONTROL SYSTEMS TECHNICIAN [facility] BACTERIA, URINE Moderate(A) Negative /hpf 11/16/2020 4:39 PM CONTROL SYSTEMS TECHNICIAN [facility] Urine URINE SPECIMEN / Unknown Non-Phlebotomy Collection / Unknown 11/16/2020 9:28 AM CONTROL SYSTEMS TECHNICIAN 11/16/2020 9:28 AM CONTROL SYSTEMS TECHNICIAN us John Méndez MD URINE ORDERABLES Final Result [facility] [address] [place] [address] documented in this encounter Visit Diagnoses Diagnosis Essential hypertension Unspecified essential hypertension Mixed hyperlipidemia Moderate episode of recurrent major depressive disorder (HCC) documented in this encounter Additional Health Concerns Infection Onset Date Last Indicated Resolved Time MRSA 03/30/2020 03/30/2020 Assessment Noted Time PHQ-9 Depression Total Score: 0 10/19/19 12:31 PM CONTROL SYSTEMS TECHNICIAN documented as of this encounter Care Teams Packing Shed Supervisor Relationship Specialty Start Date End Date John Méndez MD PCP - General Family Medicine 09/28/19 04/26/24 documented as of this encounter
--- OUTSIDE RECORDS SUMMARY | 2024-10-20 03:55 | XMS_ITS | Encounter Summary ---
Author Organization [facility] Address [address] 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 Requested Prescriptions Pending Prescriptions Disp Refills albuterol 108 (90 Base) MCG/ACT Aerosol Solution [Pharmacy Med Name: ALBUTEROL HFA (PROAIR) INHALER] 17 Inhaler 2 Sig: TAKE 2 PUFFS BY INHALATION EVERY 4 HOURS NEEDED FOR WHEEZING OR COUGH. Pulmonology: Beta Agonists - Albuterol & Levalbuterol Failed - 08/25/2020 1:10 AM Failed - May refill 2 inhalers, 0 refills one time since last office visit. May refill #50 nebulizer vials, 0 refills for albuterol or #48 vials, 0 refills for Xopenex one time since last office visit. Passed - Valid encounter within last 6 months Past Office Visits Recent Outpatient Visits 2 months ago Mild intermittent asthma without complication [facility] - John Luna MD 3 months ago Acute non-recurrent maxillary sinusitis [facility] John Delarosa MD 4 months ago Carbuncle of left axilla [facility] John Delarosa MD 8 months ago Influenza [facility] John Delarosa MD 8 months ago Acute maxillary sinusitis, recurrence not specified [facility] John Delarosa MD Upcoming Appointments SHUTTLE THREADER - Recent and Past Visits Recent Visits Date Type Provider Dept 06/09/20 Office Visit John Méndez MD [facility] 05/02/20 Office Visit John Méndez MD [facility] 03/30/20 Office Visit John Méndez MD [facility] 12/14/19 Office Visit John Méndez MD [facility] 12/02/19 Office Visit John Méndez MD [facility] 11/02/19 Office Visit Aylin Juan APN, PRODUCTION SOLDERER [facility] APN, PRODUCTION SOLDERER [facility] Office Visit Dakota Fabian APN, MIGUEL ANGEL [facility] 09/28/19 Office Visit John Méndez MD [facility] Showing recent visits within past 460 days with a meds authorizing provider and meeting all other requirements Future Appointments No visits were found meeting these conditions. Showing future appointments within next 90 days with a meds authorizing provider and meeting all other requirements Passed - Last BP in normal range BP Readings from Last 1 Encounters: 06/09/20 132/80 T EDUCATION TEACHER documented in this encounter Plan of Treatment Upcoming Encounters Date Type Department Care Team (Late st Contact Info) Description 11/02/2024 8:15 AM ADULT EDUCATION TEACHER Office Visit [facility] [address] [place] [address] Dakota Fabian APRN, PRODUCTION SOLDERER [address] [address] 11/26/2024 11:30 AM ADULT EDUCATION TEACHER Office Visit [facility] [address] [place] [address] Maggie Tolentino, PAC [address] [place] [address] documented as of this encounter Visit Diagnoses Diagnosis Wheezing Bronchospasm, acute Acute bronchospasm documented in this encounter Additional Health Concerns Infection Onset Date Last Indicated Resolved Time MRSA 03/30/2020 03/30/2020 COVID - 19 09/11/2024 09/11/2024 09/11/2024 7:21 PM ADULT EDUCATION TEACHER Assessment Noted Time PHQ-9 Depression Total Score: 0 10/19/19 20 12:31 PM ADULT EDUCATION TEACHER documented as of this encounter Care Teams Professor Of Early Childhood Education Relationship Specialty Start Date End Date John Méndez MD PCP - General Family Medicine 09/28/19 04/26/24 Dakota Fabian, THOM, PRODUCTION SOLDERER [address] [place] [address] PCP - General Advanced Practice Nurse 04/27/24 documented as of this encounter
--- OUTSIDE RECORDS SUMMARY | 2024-10-20 03:55 | XMS_ITS | Encounter Summary ---
Author Organization [facility] Address [address] 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 [employer] * Telephone Encounter - Kelly Palacios RN - 10/23/2020 12:07 PM CST Medication failed the protocol, provider to review and approve the medication order if appropriate. Last OV 06/09/20, F/ U None, Last UDS None on file, Last Rx 09/15/20 Kelly SAGASTUME Requested Prescriptions Pending Prescriptions Disp Refills Acetaminophen-Codeine 300-60 MG Tablet [Pharmacy Med Name: ACETAMINOPHEN-COD #4 TABLET] 60 Tab 0 Sig: TAKE 1 TABLET BY MOUTH 2 TIMES DAILY NEEDED FOR MODERATE OR MORE SEVERE PAIN. Not Delegated - Analgesics: Opioid Agonist Combinations Failed - 10/23/2020 11:47 AM Failed - This refill cannot be delegated Passed - Valid encounter within last 6 months Past Office Visits Recent Outpatient Visits 4 months ago Mild intermittent asthma without complication [facility] - John Luna MD 5 months ago Acute non-recurrent maxillary sinusitis [facility] John Delarosa MD 6 months ago Carbuncle of left axilla [facility] John Delarosa MD 10 months ago Influenza [facility] John Delarosa MD 10 months ago Acute maxillary sinusitis, recurrence not specified [facility] John Delarosa MD Upcoming Appointments COMMERCIAL SALES CONSULTANT - Recent and Past Visits Recent Visits Date Type Provider Dept 06/09/20 Office Visit John Méndez MD [facility] 05/02/20 Office Visit John Méndez MD [facility] 03/30/20 Office Visit John Méndez MD [facility] 12/14/19 Office Visit John Méndez MD [facility] 12/02/19 Office Visit John Méndez MD [facility] 11/02/19 Office Visit Aylin Juan APN, MIGUEL ANGEL [facility] 10/19/19 Office Visit Aylin Juan APN, SIGNAL INTELLIGENCE/ELECTRONIC WARFARE [facility] [place] 10/12/19 Office Visit Dakota Fabian APN, MIGUEL ANGEL [facility] [place] 09/28/19 Office Visit John Méndez MD [facility] Showing recent visits within past 460 days with a meds authorizing provider and meeting all other requirements Future Appointments No visits were found meeting these conditions. Showing future appointments within next 90 days with a meds authorizing provider and meeting all other requirements [employer] documented in this encounter Plan of Treatment Upcoming Encounters Date Type Department Care Team (Late st Contact Info) Description 11/02/2024 8:15 AM DIRECTOR FINANCIAL SERVICES Office Visit [facility] [address] [place] [address] Dakota Fabian APRN, SIGNAL INTELLIGENCE/ELECTRONIC WARFARE [address] [address] 11/26/2024 11:30 AM DIRECTOR FINANCIAL SERVICES Office Visit [facility] [address] [place] [address] Maggie Tolentino, PAC [address] [place] [address] documented as of this encounter Visit Diagnoses Not on filedocumented in this encounter Additional Health Concerns Infection Onset Date Last Indicated Resolved Time MRSA 03/30/2020 03/30/2020 COVID - 19 09/11/2024 09/11/2024 09/11/2024 7:21 PM DIRECTOR FINANCIAL SERVICES Assessment Noted Time PHQ-9 Depression Total Score: 0 10/19/19 20 12:31 PM DIRECTOR FINANCIAL SERVICES documented as of this encounter Care Teams Steam Hammer Operator Relationship Specialty Start Date End Date John Méndez MD PCP - General Family Medicine 09/28/19 04/26/24 Dakota Fabian APRN, SIGNAL INTELLIGENCE/ELECTRONIC WARFARE [address] [address] PCP - General Advanced Practice Nurse 04/27/24 documented as of this encounter
--- OUTSIDE RECORDS SUMMARY | 2024-10-20 03:55 | XMS_ITS | Encounter Summary ---
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 Not on file documented as of this encounter Plan of Treatment Upcoming Encounters Date Type Department Care Team (Late st Contact Info) Description 11/02/2024 8:15 AM TELEVISION AND RADIO REPAIRER Office Visit [facility] [address] [place] [address] Dakota Fabian APRN, NETWORK SECURITY ARCHITECT #[address] [address] 11/26/2024 11:30 AM TELEVISION AND RADIO REPAIRER Office Visit [facility] [address] [place] [address] Maggie Tolentino, PAC [address] [place] [address] documented as of this encounter Visit Diagnoses Not on filedocumented in this encounter Additional Health Concerns Assessment Noted Time PHQ-9 Depression Total Score: 0 10/19/19 20 12:31 PM TELEVISION AND RADIO REPAIRER documented as of this encounter Care Teams Client Relations Associate Relationship Specialty Start Date End Date John Méndez MD PCP - General Family Medicine 09/28/19 04/26/24 documented as of this encounter
--- OUTSIDE RECORDS SUMMARY | 2024-10-20 03:55 | XMS_ITS | Encounter Summary ---
Author Organization [facility] Address [address] 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 Patient reports she is feeling better, denies any fever. Denies coughing up any phlegm, runny nose and noted to be clear. Patient asking for a cough syrup to help the cough. Please advise. Patient reports she is using your inhaler and nose spray. Denies any trouble breathing. documented in this encounter Plan of Treatment Upcoming Encounters Date Type Department Care Team (Late st Contact Info) Description 11/02/2024 8:15 AM PHOTO CARTOGRAPHER Office Visit [facility] [address] [place] [address] Dakota Fabian APRN, PATTERN DRAFTER [address] [address] 11/26/2024 11:30 AM PHOTO CARTOGRAPHER Office Visit [facility] [address] [place] [address] Maggie Tolentino, PAC [address] [place] [address] documented as of this encounter Visit Diagnoses Not on filedocumented in this encounter Additional Health Concerns Assessment Noted Time PHQ-9 Depression Total Score: 0 10/19/19 20 12:31 PM PHOTO CARTOGRAPHER documented as of this encounter Care Teams Bilingual Manager Relationship Specialty Start Date End Date John Méndez MD PCP - General Family Medicine 09/28/19 04/26/24 documented as of this encounter
--- OUTSIDE RECORDS SUMMARY | 2024-10-20 03:55 | XMS_ITS | Encounter Summary ---
Author Organization 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 on file documented as of this encounter Plan of Treatment Upcoming Encounters Date Type Department Care Team (Late st Contact Info) Description 11/02/2024 8:15 AM WEB MARKETING INTERN Office Visit [facility] [address] [place] [address] Dakota Fabian APRN, OUTPATIENT PHLEBOTOMIST [address] [address] 11/26/2024 11:30 AM WEB MARKETING INTERN Office Visit [facility] [address] [place] [address] Maggie Tolentino, PAC [address] [place] [address] documented as of this encounter Visit Diagnoses Not on filedocumented in this encounter Additional Health Concerns Assessment Noted Time PHQ-9 Depression Total Score: 0 10/19/19 20 12:31 PM WEB MARKETING INTERN documented as of this encounter Care Teams Medical Staff Physician Relationship Specialty Start Date End Date John Méndez MD PCP - General Family Medicine 09/28/19 04/26/24 documented as of this encounter
--- OUTSIDE RECORDS SUMMARY | 2024-10-20 03:55 | XMS_ITS | Encounter Summary ---
Author Organization [facility] Address [address] 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 No / Unsure 07/04/2020 11:30 AM CDT documented as of this encounter Miscellaneous Notes * Telephone Encounter - Linda Boyce RN - 07/19/2020 9:17 AM CDT Medication failed the protocol, provider to review and approve the medication order. Requested Prescriptions Pending Prescriptions Disp Refills Acetaminophen-Codeine 300-60 MG Tablet [Pharmacy Med Name: ACETAMINOPHEN-COD #4 TABLET] 60 Tab 1 Sig: TAKE 1 TAB BY MOUTH 2 TIMES DAILY NEEDED FOR MODERATE OR MORE SEVERE PAIN. Not Delegated - Analgesics: Opioid Agonist Combinations Failed - 07/19/2020 9:16 AM Failed - This refill cannot be delegated Passed - Valid encounter within last 6 months Past Office Visits Recent Outpatient Visits 1 month ago Mild intermittent asthma without complication [facility] Medical [facility] - John Luna MD 2 months ago Acute non-recurrent maxillary sinusitis [facility] Family Medicine - John Luna MD 3 months ago Carbuncle of left axilla [facility] Family Medicine John Delarosa MD 7 months ago Influenza [facility] Family Medicine John Delarosa MD 7 months ago Acute maxillary sinusitis, recurrence not specified [facility] John Delarosa MD Upcoming Appointments Future Appointments In [address] Mammography, [facility] PRINCIPAL RESEARCH ECONOMIST - Recent and Past Visits Recent Visits Date Type Provider Dept 06/09/20 Office Visit John Méndez MD [facility] 05/02/20 Office Visit John Méndez MD [facility] 03/30/20 Office Visit John Méndez MD [facility] 12/14/19 Office Visit John Méndez MD [facility] 12/02/19 Office Visit John Méndez MD [facility] 11/02/19 Office Visit Aylin Juan APN, LABOUR MARKET ECONOMIST [facility] 10/19/19 Office Visit Aylin Juan APN, MIGUEL ANGEL [facility] 10/12/19 Office Visit Dakota Fabian APN, MIGUEL ANGEL [facility] 09/28/19 Office Visit John Méndez MD [facility] Showing recent visits within past 460 days with a meds authorizing provider and meeting all other requirements Future Appointments No visits were found meeting these conditions. Showing future appointments within next 90 days with a meds authorizing provider and meeting all other requirements 8 weeks ago (05/20/2020) Acetaminophen-Codeine 300-60 MG Tablet TAKE 1 TAB BY MOUTH 2 TIMES DAILY NEEDED FOR MODERATE OR MORE SEVERE PAIN. Dispense: 60 Tab? Refills: 1? Start: 05/20/2020? documented in this encounter Plan of Treatment Upcoming Encounters Date Type Department Care Team (Late st Contact Info) Description 11/02/2024 8:15 AM MAINTENANCE CONTROLLER Office Visit [facility] [address] [place] [address] Dakota Fabian APRN, LABOUR MARKET ECONOMIST #[address] [address] 11/26/2024 11:30 AM MAINTENANCE CONTROLLER Office Visit [facility] [address] [place] [address] Maggie Tolentino, [place] [address] [place] [address] documented as of this encounter Visit Diagnoses Not on filedocumented in this encounter Additional Health Concerns Infection Onset Date Last Indicated Resolved Time MRSA 03/30/2020 03/30/2020 COVID - 19 09/11/2024 09/11/2024 09/11/2024 7:21 PM MAINTENANCE CONTROLLER Assessment Noted Time PHQ-9 Depression Total Score: 0 10/19/19 20 12:31 PM MAINTENANCE CONTROLLER documented as of this encounter Care Teams Golf Range Attendant Relationship Specialty Start Date End Date John Méndez MD PCP - General Family Medicine 09/28/19 04/26/24 Dakota Fabian APRN, LABOUR MARKET ECONOMIST [address] [place] [address] PCP - General Advanced Practice Nurse 04/27/24 documented as of this encounter
--- OUTSIDE RECORDS SUMMARY | 2024-10-20 03:55 | XMS_ITS | Encounter Summary ---
Author Organization [facility] Address [address] [place] [address] Phone Care Team Providers Care Mold Inspector Name Role Phone John Méndez MD Primary Care Provider [phone] Reason for Visit * Reason Comments Fever Patient states that she woke up this morning running a fever, coughing and vomitting. 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 Not on file Not on file documented as of this encounter Last Filed Vital Signs Vital Sign Reading Time Taken Comments Blood Pressure 128/72 12/14/2019 1:04 PM DIRECTOR OF EVENT MARKETING Pulse 84 12/14/2019 1:04 PM DIRECTOR OF EVENT MARKETING Temperature 36.3 ??C (97.4 ??F) 12/14/2019 1:04 PM CS T Respiratory Rate 16 12/14/2019 1:04 PM DIRECTOR OF EVENT MARKETING Oxygen Saturation 92% 12/14/2019 1:04 PM DIRECTOR OF EVENT MARKETING Inhaled Oxygen Concentration - - Weight 107.3 kg (236 lb 8 oz) 12/14/2019 1:04 PM DIRECTOR OF EVENT MARKETING Height 157.5 cm (5' 2 ) 12/14/2019 1:04 PM DIRECTOR OF EVENT MARKETING Body Mass Index 43.26 12/14/2019 1:04 PM DIRECTOR OF EVENT MARKETING documented in this encounter Progress Notes * Maritza Escaelra F - 12/14/2019 1:00 PM CST Melinda Olmedo, 44 y.o., female is here for Fever (Patient states that she woke up this morning running a fever, coughing and vomitting. Patient also states her children has influenza B last week) and Cough Medication Refills: Patient reports/denies need for medication refills. Orders Pended: no Requested Prescriptions No prescriptions requested or ordered in this encounter Home Medications Medication Sig Start Date End Date Taking? Authorizing Provider acetaminophen-codeine (TYLENOL #3) 300-30 MG Tablet TAKE 1-2 TABS BY MOUTH 3 TIMES DAILY NEEDED FOR MODERATE OR MORE SEVERE PAIN. 11/25/19 Yes John Méndez MD albuterol 108 (90 Base) MCG/ACT Aerosol Solution take 2 Puffs by inhalation every 4 hours as neededfor Wheezing or Cough. 12/02/19 Yes John Méndez MD amLODIPine (NORVASC) 10 MG Tablet Take 1 Tab by mouth daily. 09/28/19 Yes John Méndez MD atorvastatin (LIPITOR) 20 MG Tablet Take 1 Tab by mouth every evening. 09/28/19 Yes John Méndez MD azithromycin (ZITHROMAX) 250 MG Tablet 2 tab(s) daily for 1 day, then 1 tab(s) daily for days 2-5. Patient not taking: Reported on 12/14/2019 12/02/19 John Méndez MD buPROPion (WELLBUTRIN) 150 MG XL tablet Take 150 mg by mouth daily. Emergency, Nurse, RN buPROPion (WELLBUTRIN) 300 MG [...] 800 MG Tablet as needed. 06/15/19 Yes ProviderAdolfo MD losartan (COZAAR) 25 MG Tablet Take 1 Tab by mouth daily. 09/28/19 Yes John Méndez MD montelukast (SINGULAIR) 10 MG Tablet Take 10 mg by mouth daily. 06/14/19 Yes ProviderAdolfo MD ondansetron (ZOFRAN) 4 MG Tablet Take 1 Tab by mouth every 8 hours as needed for Nausea - 1st line. Patient not taking: Reported on 12/14/2019 11/20/19 Tisha Rosario PAC sertraline (ZOLOFT) 100 MG Tablet Take 2 Tabs by mouth daily. 09/28/19 Yes John Méndez MD tiZANidine (ZANAFLEX) 2 MG Capsule Take 2 mg by mouth nightly. Yes ProviderAdolfo MD There are no discontinued medications. I [...] have been addressed with the patient today: PAP CTOR OF EVENT MARKETING * John Méndez MD - 12/14/2019 1:00 PM CST Subjective: TERESA Olmedo, 44 y.o. female, is here for an acute visit. She said that this started yesterday with not feeling well but she woke up with 102 degree fever this am. She did take ibuprofen this am and it has brought her temp down. She has had cough that is not really productive. She says that sheis noting that she did get better from her last sinus infection and these symptoms just started yest late. She says that it seems that this is more in her lungs. She did have some nausea and vomitingand now with fever and lung congestion and cough. She says that the cough is bad and she has coughing spells and is not able to sleep as this is worse when she lies down. She says that she has tried the albuterol inhaler but she is still wheezing. Her kids were positive for flu B last week. Past Medical History Positives Diagnosis Date ??? [...] file Occupational History ??? 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 Financial resource strain: Not [...] file Gets together: Not on file Attends sikh service: Not on file Active member of [...] MORE SEVERE PAIN. 90 Tab 0 ??? albuterol 108 (90 Base) MCG/ACT Aerosol Solution take 2 Puffs by inhalation every 4 hours as needed for Wheezing or Cough. 8.5 g 0 ??? amLODIPine (NORVASC) 10 MG Tablet [...] 10 mg by mouth daily. 3 ??? sertraline (ZOLOFT) 100 MG Tablet Take [...] Grandfather Review of Systems Constitutional: Positive for chills, fever and malaise/fatigue. Negative for diaphoresis and weightloss. HENT: Positive for congestion and sore throat. Negative for ear discharge, ear pain, hearing loss, nosebleeds, sinus pain and tinnitus. Eyes: Negative for blurred vision, double vision, photophobia, pain, discharge and redness. Respiratory: Positive for cough and wheezing. Negative for hemoptysis, sputum production, shortnessof breath and stridor. Cardiovascular: Negative for chest pain, palpitations, orthopnea, claudication, leg swelling and PND. Gastrointestinal: Negative for abdominal pain, blood in stool, constipation, diarrhea, heartburn, melena, nausea and vomiting. Musculoskeletal: Positive for back pain and myalgias. Negative for falls, joint pain and neck pain. Skin: Negative for itching and rash. Neurological: Negative for dizziness, tingling, tremors, sensory change, speech change, focal weakness, seizures, loss of consciousness, weakness and headaches. Objective: BP 128/72 Pulse 84 Temp 97.4 ??F (36.3 ??C) (Temporal) Resp 16 Ht 5' 2 (1.575 m) Wt 236 lb 8 oz (107.3 kg) LMP (LMP Unknown) Comment: full SpO2 92% BMI 43.26 kg/m?? Physical Exam Vitals signs and nursing note reviewed. Constitutional: General: She is not in acute distress. Appearance: Normal appearance. She is obese. She is ill-appearing. She is not diaphoretic. HENT: Right Ear: Tympanic membrane, ear canal and external ear normal. There is no impacted cerumen. Left Ear: Tympanic membrane, ear canal and external ear normal. There is no impacted cerumen. Nose: Congestion present. No rhinorrhea. Mouth/Throat: Mouth: Mucous membranes are moist. Pharynx: Oropharynx is clear. Posterior oropharyngeal erythema present. No oropharyngeal exudate. Eyes: General: No scleral icterus. Right eye: No discharge. Left eye: No discharge. Extraocular Movements: Extraocular movements intact. Conjunctiva/sclera: Conjunctivae normal. Pupils: Pupils are equal, round, and reactive to light. Neck: Musculoskeletal: Neck supple. No muscular tenderness. Cardiovascular: Rate and Rhythm: Normal rate and regular rhythm. Heart sounds: No murmur. No friction rub. No gallop. Pulmonary: Effort: Pulmonary effort is normal. Breath sounds: Wheezing present. No rhonchi or rales. Lymphadenopathy: Cervical: Cervical adenopathy present. Neurological: General: No focal deficit present. Mental Status: She is alert and oriented to person, place, and time. Mental status is at baseline. Cranial Nerves: No cranial nerve deficit. Gait: Gait normal. Requested Number of Results for Past 12 Months Component Units 11/20/192013 WBC 10(3)/mcL 9.76 HEMOGLOBIN g/dL 12.0 HEMATOCRIT % 38.3 PLATELETCNT 10(3)/mcL 317 SGPTALT U/L 26 SGOTAST U/L 24 SODIUM mmol/L 137 POTASSIUM mmol/L 3.3* CHLORIDE mmol/L 98* CREATININE mg/dL 0.54* BUN mg/dL 11 CO2VEN mmol/L 29 GLUCOSE mg/dL 98 Assessment /Plan 1. Influenza Pt is likely positive for influenza and it is too early to react. She is to use the tamiflu 75 mg bid x 10 days. We are also going to order her a nebulizer for the wheezing and issues. She is with a diagnosis of asthma as a child and has been having more issues. - oseltamivir (TAMIFLU) 75 MG Capsule; Take 1 Cap by mouth 2 times daily for 5 days. Dispense: 10 Cap; Refill: 0 - POCT INFLUENZA A & B 2. Mild intermittent asthma with acute exacerbation Given neb in office last week and this did help. Has been using inhaler without relief. Will order nebulizer for the patient and also ordered albuterol nebs for her to use Q 4 hours prn. - NEBULIZER DEVICE, WITH COMPRESSOR CTOR OF EVENT MARKETING * Maritza Escalera - 12/14/2019 1:00 PM CST Influenza swab a and b performed on Melinda Olmedo per order of Dr. Méndez. Results entered as negative in computer and given to provider. CTOR OF EVENT MARKETING documented in this encounter Plan of Treatment Upcoming Encounters Date Type Department Care Team (Late st Contact Info) Description 11/02/2024 8:15 AM DIRECTOR OF EVENT MARKETING Office Visit [facility] [address] [place] [address] Dakota Fabian APRN, [place] ATTORNEY [address] [address] 11/26/2024 11:30 AM DIRECTOR OF EVENT MARKETING Office Visit [facility] [address] [place] [address] Maggie Tolentino PAC [address] [place] [address] documented as of this encounter Procedures Procedure Name Priority Date/Time Associated Diagnosis Comments POCT INFLUENZA A & B Routine 12/14/2019 1:41 PM DIRECTOR OF EVENT MARKETING Influenza documented in this encounter Results * POCT INFLUENZA A & B (12/14/2019 1:41 PM DIRECTOR OF EVENT MARKETING) POC INFLU A Presumptive negative Group A POC INFLU B Presumptive negative Group B POC INFLUENZA CONTROL Full Stack Software Developer Pass 12/14/2019 1:41 PM DIRECTOR OF EVENT MARKETING us John Méndez MD POINT OF CARE TESTING (MANUAL) F inal Result documented in this encounter Visit Diagnoses Diagnosis Influenza- Primary Influenza with other respiratory manifestations Mild intermittent asthma with acute exacerbation Unspecified asthma, with exacerbation documented in this encounter Additional Health Concerns Assessment Noted Time PHQ-9 Depression Total Score: 0 10/19/19 20 12:31 PM DIRECTOR OF EVENT MARKETING documented as of this encounter Care Teams Mold Inspector Relationship Specialty Start Date End Date John Méndez MD PCP - General Family Medicine 09/28/19 04/26/24 documented as of this encounter
--- OUTSIDE RECORDS SUMMARY | 2024-10-20 03:55 | XMS_ITS | Encounter Summary ---
Author Organization [facility] Address [address] [place] [address] Phone Care Team Providers Care Farm Contractor Buyer Name Role Phone John Méndez MD Primary Care Provider [phone] Reason for Visit * Reason Comments Medication Refill med refills Encounter Details Date Type Department Care Team (Late st Contact Info) Description 11/15/2020 9:45 AM REGROOVER Office Visit [facility] Medical Group - Family [facility] [address] [place] [id number] John Méndez MD [address] [place] [address] Mixed hyperlipidemia (Primary Dx); Essential hypertension; Sacroiliac joint dysfunction of both sides; Obstructive sleep apnea syndrome; Gastroesophageal reflux disease without esophagitis; Moderate episode of recurrent major depressive disorder (HCC); Anxiety Discharge Disposition: Discharged to home or [...] 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 No / Unsure 11/20/2020 6:37 AM REGROOVER documented as of this encounter Last Filed Vital Signs Vital Sign Reading Time Taken Comments Blood Pressure 124/68 11/15/2020 10:10 AM REGROOVER Pulse 55 11/15/2020 10:10 AM REGROOVER Temperature 36.3 ??C (97.3 ??F) 11/15/2020 10:[address] Respiratory Rate 16 11/15/2020 10:10 AM REGROOVER Oxygen Saturation 100% 11/15/2020 10:10 AM REGROOVER Inhaled Oxygen Concentration - - Weight 96.3 kg (212 lb 6.4 oz) 11/15/2020 10:10 AM REGROOVER Height 160 cm (5' 3 ) 11/15/2020 10:10 AM REGROOVER Body Mass Index 37.62 11/15/2020 10:10 AM REGROOVER documented in this encounter Progress Notes * John Méndez MD - 11/15/2020 9:45 AM CST Melinda Izzy Olmedo, 45 y.o., female is here for Medication Refill (med refills) Medication Refills: Patient reports/denies need for medication refills. Orders Pended: yes Requested Prescriptions No prescriptions requested or ordered in this encounter Home Medications Medication Sig Start Date End Date Taking? Authorizing Provider Acetaminophen-Codeine 300-60 MG Tablet TAKE 1 TABLET BY MOUTH 2 TIMES DAILY NEEDED FOR MODERATE OR MORE SEVERE PAIN. 10/23/20 Yes John Méndez MD albuterol (PROVENTIL/VENTOLIN) 1.25 [...] mouth daily. 09/28/19 Yes John Méndez MD guaiFENesin-codeine (TUSSI-ORGANIDIN NR) 100-10 MG/5ML Syrup codeine 10 mg- guaifenesin 100 mg/5 mL oral liquid ProviderAdolfo MD hydroCHLOROthiazide 25 MG Tablet Take 1 Tab by mouth daily. 09/28/19 Yes John Méndez MD hydrocortisone 2.5 % Cream hydrocortisone 2.5 % topical cream ProviderAdolfo MD ibuprofen (MOTRIN) 800 MG Tablet as [...] TWICE A DAY BEFORE BREAKFAST AND DINNER Adolfo Sotomayor MD Permethrin 1 % Liquid permethrin 1 % topical liquid Adolfo Sotomayor MD sertraline (ZOLOFT) 100 MG Tablet Take 2 Tabs by mouth daily. 09/28/19 Yes John Méndez MD tiZANidine (ZANAFLEX) 2 MG Capsule Take 2 mg by mouth nightly. Yes Adolfo Sotomayor MD valsartan (DIOVAN) 40 MG Tablet Take 1 Tab by mouth daily. 01/11/20 Yes John Méndez MD Medications Discontinued During This Encounter Medication Reason ??? azithromycin (Zithromax Z-Carlo) 250 MG Tablet Therapy completed I have reviewed the home medication list [...] been addressed with the patient today: BMI, Flu and Pap OOVER * Kindra Monique - 11/15/2020 9:45 AM CST Subjective: Chief Complaint Patient presents with ??? Medication Refill med refills History of Present Illness: Melinda Olmedo is a 45 y.o. female who presents for follow up. She states she has just been feeling like her antidepressants are not working and has been having more trouble getting along with her family, and feeling more irritable. She notes she is on one of the highest doses of the Zoloft and just does not feel like it helped. She reports she had been on Celexa in the past and then was switched over to Zoloft when this stopped working, and then over to Celexa again, and now she is back overto the Zoloft. She has not been on any other medication other than these two. Patient states she istaking the Wellbutrin with the BuSpar, but continues to have anxiety. She feels as though she just does not motivate to do anything and has no energy to participate in activities daily. She states she feels like she is always tired and just wants to go back to bed. She is having a lot of strugglingwith this at this time. She just feels very overwhelmed with everything going on including having her children at home for schooling and now they are going back to part-time at school and part-time at home, and getting used to the schedule has been hard. She is also taking her medications for hyperlipidemia and hypertension. She thinks that they are working okay. She is trying to watch her diet and do okay with this. She reports she is not the best with the exercise. She is not having any chest pain or shortness of breath. Denies any nausea or vomiting, diarrhea orconstipation. She denies any black or tarry stools that she has noted. She is not having any problems with her medications that she is aware of. She does have chronic low back and sacroiliac joint dysfunction. She is continuing to take her Tylenol with Codeine to help with this as well as muscle relaxers. She states this does continue to helpand she is using these as prescribed. She does need a new Med use agreement with us today. Patient is also using ibuprofen 800 mg t.i.d., p.r.n, for her pain. Patient's medications, allergies, past medical, surgical, social and family histories were reviewedand updated as appropriate. Review of Systems: GENERAL: Denies weight changes, fevers, night sweats, and fatigue. SKIN: Denies rash and lesion. HEENT: Denies vision changes, difficulty hearing, rhinorrhea, and sore throat. LUNGS: Denies cough, shortness of breath, and wheezing. HEART: Denies chest pain and palpitations. GI: Denies nausea, vomiting, abdominal pain, and changes in bowel movements. : Denies frequency, dysuria, and nocturia. MSK: Reports low back pain and sacroiliac joint dysfunction. NEUROLOGIC: Denies headaches, dizziness, tingling, and weakness. PSYCHIATRIC: Reports feeling anxious and depressed. ENDOCRINE: Denies cold or heat intolerance and polyuria. HEMATOLOGIC: Denies excessive bleeding. Objective: BP 124/68 (BP Location: Right Arm, BP Position: Sitting, BP Cuff Size: Regular) Pulse 55 Temp 97.3 ??F (36.3 ??C) (Temporal) Resp 16 Ht 160 cm (5' 3 ) Wt 96.3 kg (212 lb 6.4 oz) LMP (LMP Unknown) Comment: full SpO2 100% BMI 37.62 kg/m?? Physical Exam: VITALS: Vitals signs and nursing note reviewed. GENERAL: Patient is alert, oriented x3, well-developed, no acute distress, and not diaphoretic. SKIN: warm, dry, normal coloration and turgor, no erythema, and no rashes. HEENT: normocephalic and atraumatic. no scleral icterus, no discharge, conjunctiva normal, and PERRL. external ear normal. external nose normal. No oropharyngeal exudate. NECK: supple, full ROM, trachea midline, and no thyromegaly. No JVD. LUNGS: no chest wall deformities or tenderness, respiratory effort normal, no respiratory distress,normal breath sounds, no stridor, no wheezes, and no rales. HEART: regular rate and rhythm, S1, S2, and no murmurs, gallops or rubs. ABDOMEN: soft, non-tender, non-distended, no rebound, no masses, and no guarding. MUSCULOSKELETAL: full ROM, no tenderness, no deformity, and normal symmetric muscle tone and strength. LYMPHATIC: no cervical adenopathy. NEUROLOGIC: CN II-XII intact, DTR's 2+ throughout, and normal gait. PSYCHIATRIC: she has depressed mood and flat affect. Her thought processes are within normal limits. She denies any suicidal or homicidal ideation. She has normal attention and perception at this time. She has slightly slowed in her action and her speech is normal. Judgment and memory appear normalat this time. Past labs, radiology, and medical records reviewed with patient/caregiver. All questions answered. Assessment/Plan: Melinda was seen today for medication refill. Diagnoses and all orders for this visit: Mixed hyperlipidemia - LIPID PANEL; Future Essential hypertension - URINALYSIS REFLEX IF INDICATED BY ABNORMAL RESULTS; Future - COMPLETE BLOOD COUNT (CBC) WITH DIFF; Future - CMP (COMPREHENSIVE METABOLIC PANEL); Future - THYROID STIMULATING HORMONE (TSH); Future - THYROXINE (T4) FREE; Future Sacroiliac joint dysfunction of both sides - URINE DRUG SCREEN; Future Obstructive sleep apnea syndrome Gastroesophageal reflux disease without esophagitis Moderate episode of recurrent major depressive disorder (HCC) - VITAMIN D, 25 HYDROXY TOTAL; Future - VITAMIN B12; Future Anxiety Other orders - escitalopram (LEXAPRO) 10 MG Tablet; Take 1 Tab by mouth daily. Plan: Patient is given orders to stop her Zoloft and start on Lexapro 10 mg one tablet daily. She is asked to follow up with us in 1 month for her next refill and recheck on this, we can increase if needed. She also is given lab orders including CBC, CMP, lipid profile, TSH, free T4, urinalysis, urine drug screen, vitamin B12, and vitamin D. The PDMP is examined today and is within normal limits for the patient. She voiced understanding to the current care and plan. Follow up: Return in about 4 weeks (around 12/13/2020) or sooner if she has any concerns. Patient given verbal and/or written education. She indicated understanding and agreed to the treatment plan. She will call the office or seek immediate medical attention if present symptoms worsen ornew ones develop. Transcribed by Asaf at 10:55 AM on 11/20/2020. OOVER documented in this encounter Plan of Treatment Upcoming Encounters Date Type Department Care Team (Late st Contact Info) Description 11/02/2024 8:15 AM REGROOVER Office Visit [facility] [address] [place] [address] Dakota Fabian APRN, MANAGER SUPPLIER [address] [address] 11/26/2024 11:30 AM REGROOVER Office Visit [facility] [address] [place] [address] Maggie Tolentino, PAC [address] [place] [address] documented as of this encounter Results * VITAMIN B12 (11/16/2020 9:28 AM REGROOVER) VITAMIN B12 426 243 - 894 pg/mL 11/16/2020 2:01 PM REGROOVER [facility] Blood Venipuncture / Unknown 11/16/2020 9:28 AM REGROOVER 11/16/2020 9:28 AM REGROOVER us John Méndez MD CHEMISTRY ORDERABLES Final Resul t Performing Organization Address City/[facility] Co de Phone Number [facility] [address] [place] [address] * (ABNORMAL) VITAMIN D, 25 HYDROXY TOTAL (11/16/2020 9:28 AM REGROOVER) VITAMIN D, 25 HYDROX 20(L) >=30 ng/mL 11/16/2020 2:01 PM REGROOVER [facility] Blood Venipuncture / Unknown 11/16/2020 9:28 AM REGROOVER 11/16/2020 9:28 AM REGROOVER Narrative [facility] - 11/16/2020 2:01 PM REGROOVER Published reference ranges for Vitamin D vary depending on time and place and method of testing, and on patient's age, sex, ethnicity and levels of other measured analytes such as parathormone, calcium and phosphorus. ??The result should be evaluated in conjunction with clinical findings and suspicions. [place] [employer] and Endocrine Clinical Practice Guidelines: Status Vitamin D levels (ng/mL) Deficient <=20 At risk of inadequacy 21-29 Sufficient 30-100 Centers of Disease Control and Prevention Guidelines: Status Vitamin D levels (ng/mL) Deficient <13 At risk of inadequacy 13-19 Sufficient 20-50 Possibly harmful >50 References: [place] [employer], 2010 Dietary reference intakes for calcium and vitamin D. [place]: ??The National Academies Press. Vijay M, Fabiana N, Jerrod ISBELL, et al., Evaluation, treatment, and prevention of Vitamin D deficiency: an Endocrinology Clinical Practice Guideline. JCEM 2011 96: 7 6128-4605. Kathy A, Amari C, Maicol D, et al., Vitamin D Status: ??[place], 2000- 1005, [facility] data brief, no. 59, MD [place]: ??National Center for Health Statistics. 2010. John Méndez MD CHEMISTRY ORDERABLES Final Resul t Performing Organization Address City/[facility]/ZIP Co de Phone Number [facility] [address] [place] [address] * THYROXINE (T4) FREE (11/16/2020 9:28 AM REGROOVER) Pathologist [facility] T4 FREE 1.3 0.9 - 1.7 ng/dL 11/16/2020 1:51 PM REGROOVER [facility] Blood Venipuncture / Unknown 11/16/2020 9:28 AM REGROOVER 11/16/2020 9:28 AM REGROOVER John Méndez MD CHEMISTRY ORDERABLES Final Resul t [facility] [address] [place] [address] * THYROID STIMULATING HORMONE (TSH) (11/16/2020 9:28 AM REGROOVER) Pathologist [facility] TSH 2.910 0.270 - 4.200 mIU/L 11/16/2020 1:51 PM REGROOVER [facility] Blood Venipuncture / Unknown 11/16/2020 9:28 AM REGROOVER 11/16/2020 9:28 AM REGROOVER us John Méndez MD CHEMISTRY ORDERABLES Final Resul t [facility] [address] [place] [address] * LIPID PANEL (11/16/2020 9:28 AM REGROOVER) Pathologist [facility] CHOLESTEROL 171 <=200 mg/dL 11/16/2020 1:51 PM REGROOVER [facility] TRIGLYCERIDES 144 <150 mg/dL 11/16/2020 1:51 PM REGROOVER [facility] HDL CHOLESTEROL 52.6 >40 mg/dL 1:51 PM REGROOVER [facility] LDL 90 5 - 130 mg/dL 11/16/2020 1:51 PM [facility] VLDL 29 5 - 55 mg/dL 11/16/2020 1:51 PM [facility] CHOL/HDL RATIO 3.3 0.0 - 4.4 11/16/2020 1:51 PM [facility] NON-HDL CHOLESTEROL 118.4 <130 mg/dL 11/16/2020 1:51 PM [facility] IS THE PATIENT REQUIRED TO BE FASTING? Yes 11/16/2020 1:51 PM [facility] HAS THE PATIENT BEEN FASTING? Yes 11/16/2020 1:51 PM [facility] Blood Venipuncture / Unknown 11/16/2020 9:28 AM REGROOVER 11/16/2020 9:28 AM REGROOVER us John Méndez MD CHEMISTRY ORDERABLES Final Resul t [facility] [address] [place] [address] * CMP (COMPREHENSIVE METABOLIC PANEL) (11/16/2020 9:28 AM REGROOVER) SODIUM 140 136 - 144 mmol/L 11/16/2020 1:51 PM [facility] POTASSIUM 4.0 3.5 - 5.1 mmol/L 11/16/2020 1:51 PM [facility] CHLORIDE 103 100 - 110 mmol/L 11/16/2020 1:51 PM [facility] CO2, VENOUS 27 22 - 32 mmol/L 11/16/2020 1:51 PM [facility] ANION GAP 14.0 8.0 - 20.0 mmol/L 11/16/2020 1:51 PM [facility] GLUCOSE 90 70 - 99 mg/dL 11/16/2020 1:51 PM [facility] BUN 11 6 - 20 mg/dL 11/16/2020 1:51 PM [facility] CREATININE, BLOOD 0.65 0.60 - 1.10 mg/dL 11/16/2020 1:51 PM [facility] BUN/CREATININE RATIO 17 12 - 20 ratio 11/16/2020 1:51 PM [facility] TOTAL PROTEIN 7.7 6.0 - 8.3 g/dL 11/16/2020 1:51 PM [facility] ALBUMIN 4.5 3.5 - 5.2 g/dL 11/16/2020 1:51 PM [facility] Comment: The colormetric methods used for the determination of Albumin may lead to falsely elevated test results in patients suffering from renal failure or insufficiency due to interference with other proteins. A/G RATIO 1.4 1.0 - 2.0 11/16/2020 1:51 PM [facility] CALCIUM 9.3 8.9 - 10.3 mg/dL 11/16/2020 1:51 PM [facility] T BILI 0.4 <=1.2 mg/dL 11/16/2020 1:51 PM [facility] SGOT (AST) 15 <=32 U/L 11/16/2020 1:51 PM [facility] SGPT (ALT) 14 <=41 U/L 11/16/2020 1:51 PM [facility] ALKALINE PHOSPHATASE 68 35 - 105 U/L 11/16/2020 1:51 PM [facility] GFR, EST. NONAFRICAN >60 >=60 11/16/2020 1:51 PM [facility] GFR, EST. >60 >=60 021 1:51 PM [facility] Comment: Creatinine Clearance is the preferred criteria for selecting drug dose adjustments in renally impaired patients. ??The GFR is provided as additional pertinent clinical information. GFR is reported in mL/min/1.73 sq m. IS THE PATIENT REQUIRED TO BE FASTING? No 11/16/2020 1:51 PM [facility] Blood Venipuncture / Unknown 11/16/2020 9:28 AM REGROOVER 11/16/2020 9:28 AM REGROOVER us John Méndez MD CHEMISTRY ORDERABLES Final Resul t [facility] [address] [place] [address] * (ABNORMAL) URINALYSIS REFLEX IF INDICATED BY ABNORMAL RESULTS (11/16/2020 9:28 AM REGROOVER) SPECIFIC GRAVITY 1.020 1.003 - 1.030 11/16/2020 4:39 PM REGROOVER [facility] URINE PH 5.0 5.0 - 9.0 11/16/2020 4:39 PM REGROOVER [facility] WBC ESTERASE 100 /uL(A) Negative 11/16/2020 4:39 PM REGROOVER [facility] NITRITE Negative Negative 11/16/2020 4:39 PM REGROOVER [facility] PROTEIN, RANDOM URINE 15 mg/dL(A) Negative 11/16/2020 4:39 PM REGROOVER [facility] URINE GLUCOSE, QUAL Negative Negative 11/16/2020 4:39 PM REGROOVER [facility] URINE KETONES Negative Negative 11/16/2020 4:39 PM REGROOVER [facility] UROBILINOGEN Normal Normal mg/dL 11/16/2020 4:39 PM REGROOVER [facility] URINE BILIRUBIN Negative Negative 4:39 PM REGROOVER [facility] URINE BLOOD 10 /uL(A) Negative marjorie/ul 11/16/2020 4:39 PM REGROOVER [facility] URINALYSIS COLOR Dark Yellow 021 4:39 PM REGROOVER [facility] URINALYSIS CLARITY Very Cloudy 11/16/2020 4:39 PM [facility] WBC (Urine) 11-20(A) Negative, 0-5 /hpf 11/16/2020 4:39 PM REGROOVER [facility] URINE RBC'S 3-5(A) Negative, 0-2 /hpf 11/16/2020 4:39 PM REGROOVER [facility] EPITHELIAL CELLS Small amount /lpf 2020 4:39 PM REGROOVER [facility] BACTERIA, URINE Moderate(A) Negative /hpf 11/16/2020 4:39 PM REGROOVER [facility] Urine URINE SPECIMEN / Unknown Non-Phlebotomy Collection / Unknown 11/16/2020 9:28 AM REGROOVER 11/16/2020 9:28 AM REGROOVER John Méndez MD URINE ORDERABLES Final Result [facility] [address] [place] [address] * URINE DRUG SCREEN (11/15/2020) Urine John Méndez MD URINE ORDERABLES Final Result documented in this encounter Visit Diagnoses Diagnosis Mixed hyperlipidemia- Primary Essential hypertension Unspecified essential hypertension Sacroiliac joint dysfunction of both sides Disorders of sacrum Obstructive sleep apnea syndrome Obstructive sleep apnea (adult) (pediatric) Gastroesophageal reflux disease without esophagitis Esophageal reflux Moderate episode of recurrent major depressive disorder (HCC) Anxiety Anxiety state, unspecified documented in this encounter Additional Health Concerns Infection Onset Date Last Indicated Resolved Time MRSA 03/30/2020 03/30/2020 Assessment Noted Time PHQ-9 Depression Total Score: 0 10/19/19 20 12:31 PM REGROOVER documented as of this encounter Care Teams Farm Contractor Buyer Relationship Specialty Start Date End Date John Méndez MD PCP - General Family Medicine 09/28/19 04/26/24 documented as of this encounter
--- OUTSIDE RECORDS SUMMARY | 2024-10-20 03:55 | XMS_ITS | Encounter Summary ---
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 Not on file Not [...] st Contact Info) Description 11/02/2024 8:15 AM URBAN REDEVELOPMENT SPECIALIST Office Visit [facility] Medical Group - Family Medicine [facility] [place] [address] [place] [address] Dakota Fabian, POULTRY INSPECTOR, HEAT TREATING OPERATOR [address] [address] 11/26/2024 11:30 AM URBAN REDEVELOPMENT SPECIALIST Office Visit [facility] - [place] [address] [place] [address] Maggie Tolentino, PAC [address] [place] [address] documented as of this encounter Visit Diagnoses Not on filedocumented in this encounter Additional Health Concerns Infection Onset Date Last Indicated Resolved Time MRSA 03/30/2020 03/30/2020 Assessment Noted Time PHQ-9 Depression Total Score: 0 10/19/19 20 12:31 PM URBAN REDEVELOPMENT SPECIALIST documented as of this encounter Care Teams Branch Operations Specialist Relationship Specialty Start Date End Date John Méndez MD PCP - General Family Medicine 09/28/19 04/26/24 documented as of this encounter
--- OUTSIDE RECORDS SUMMARY | 2024-10-20 03:55 | XMS_ITS | Encounter Summary ---
Author Organization [facility] Address [address] 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 Verbalized understanding. * Telephone Encounter - Julisa Zuluaga MD - 02/07/2020 4:15 PM CDT I sent this in for her. * Addendum Note - Julisa Zuluaga MD - 02/07/2020 4:15 PM CDTAddended by: JULISA ZULUAGA on: 02/07/2020 04:15 PM Modules accepted: Orders * Telephone Encounter - Jeannie Mejia RN - 02/07/2020 1:38 PM CDT SITUATION: Dry cough BACKGROUND: Symptoms began 3 days ago. Patient covid screen negative. Patient has a hx of allergies. ASSESSMENT: Symptom Description / Location: Patient c/o dry cough and horse voice. Patient states throat is notsore. Patient c/o nasal congestion. Patient denies wheezing Pain (0-10): 0/10 Temp: unaware Treatment / Response: prescription allergy, nyquil, dayquil, inhaler LMP / / : NA RECOMMENDATION: See care advice and disposition for Guideline First positive answer recorded, all responses to prior questions were negative. If symptoms increase, change or if new symptoms develop, call your HCP or call back. Recommendations were based on caller information and is not a diagnosis. Verified and reviewed all triage information with caller. Screening tool for the Novel Coronavirus (2018-nCoV ): Patient has fever?No Patient has symptoms of cough, shortness of breath, or sore throat? Yes Has patient recently traveled internationally in the last month ? No (If yes to fever OR cough OR shortness of breath OR sore throat AND travel question transfer to triage nurse). Has the patient been in close contact with a suspected or laboratory confirmed 2019 nCoV Coronavirus patient within 14 days of symptom onset ? No (If yes to fever OR cough OR shortness of breath OR sore throat AND exposure transfer to triage nurse). (Document both positive and negative responses) Reason for Disposition ??? Continuous (nonstop) coughing interferes with work or school and no improvement using cough treatment per Care Advice Protocols used: COUGH-A-OH Patient requesting prescription cough syrup. Patient states she gets this every year. documented in this encounter Plan of Treatment Upcoming Encounters Date Type Department Care Team (Late st Contact Info) Description 11/02/2024 8:15 AM EXTERIOR INTERIOR SPECIALIST [facility] [place] [address] Dakota Fabian APRN, TRACKMOBILE OPERATOR [address] [address] 11/26/2024 11:30 AM EXTERIOR INTERIOR SPECIALIST [facility] [place] [address] Maggie Tolentino, PAC [address] [place] [address] documented as of this encounter Visit Diagnoses Not on filedocumented in this encounter Additional Health Concerns Assessment Noted Time PHQ-9 Depression Total Score: 0 10/19/19 20 12:31 PM EXTERIOR INTERIOR SPECIALIST documented as of this encounter Care Teams Drilling Engineer Relationship Specialty Start Date End Date Julisa Zuluaga MD PCP - General Family Medicine 09/28/19 04/26/24 documented as of this encounter
--- OUTSIDE RECORDS SUMMARY | 2024-10-20 03:55 | XMS_ITS | Encounter Summary ---
Author Organization [facility] Address [address] [facility] 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 Not Delegated - Analgesics: Opioid Agonist Combinations Failed - 11/25/2019 1:39 PM Failed - This refill cannot be delegated Passed - Valid encounter within last 6 months Past Office Visits Recent Outpatient Visits 3 weeks ago Spider bite wound, accidental or unintentional, subsequent encounter [facility] PHYSICIAN [email or web address] FAMILY MEDICINE Aylin Juan, REPRESENTATIVE PHLEBOTOMY SERVICES, FOOD SERVICE CASHIER 1 month ago Brown recluse spider bite or sting, accidental or unintentional, subsequent encounter [facility] PHYSICIAN [facility] [[email or web address] FAMILY MEDICINE Aylin Juan, REPRESENTATIVE PHLEBOTOMY SERVICES, FOOD SERVICE CASHIER 1 month ago Acute URI [facility] FAMILY MEDICINE Dakota Fabian, [place], COMPLIANCE VICE PRESIDENT 1 month ago Sacroiliac joint dysfunction of both sides [facility] PHYSICIAN [facility] [[email or web address]] FAMILY MEDICINE John Méndez MD Upcoming Appointments Future Appointments In 1 month John Méndez MD [facility] PHYSICIAN [facility] [[email or web address]] FAMILY MEDICINE, [facility] [employer] - 11/25/2019 1:39 PM Information pending TICS WORKER documented in this encounter Plan of Treatment Upcoming Encounters Date Type Department Care Team (Late st Contact Info) Description 11/02/2024 8:15 AM PLASTICS WORKER Office Visit [facility] [address] [place] [address] Dakota Fabian APRN, COMPLIANCE VICE PRESIDENT [address] [address] 11/26/2024 11:30 AM PLASTICS WORKER Office Visit [facility] [address] [place] [address] Maggie Tolentino PAC [address] [place] [address] documented as of this encounter Visit Diagnoses Not on filedocumented in this encounter Additional Health Concerns Assessment Noted Time PHQ-9 Depression Total Score: 0 10/19/19 20 12:31 PM PLASTICS WORKER documented as of this encounter Care Teams Associate Buyer Relationship Specialty Start Date End Date John Méndez MD PCP - General Family Medicine 09/28/19 04/26/24 documented as of this encounter
--- OUTSIDE RECORDS SUMMARY | 2024-10-20 03:55 | XMS_ITS | Encounter Summary ---
Author Organization 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 Not on file Not on file documented as of this encounter Plan of Treatment Upcoming Encounters Date Type Department Care Team (Late st Contact Info) Description 11/02/2024 8:15 AM PORCELAIN BUILDUP ASSISTANT Office Visit [facility] [address] [place] [address] Dakota Fabian APRN, FUNERAL PRE NEED CONSULTANT #[address] [address] 11/26/2024 11:30 AM PORCELAIN BUILDUP ASSISTANT Office Visit [facility] [address] [place] [address] Maggie Tolentino, PAC [address] [place] [address] documented as of this encounter Visit Diagnoses Not on filedocumented in this encounter Additional Health Concerns Assessment Noted Time PHQ-9 Depression Total Score: 0 10/19/19 20 12:31 PM PORCELAIN BUILDUP ASSISTANT documented as of this encounter Care Teams Design Eng Relationship Specialty Start Date End Date John Méndez MD PCP - General Family Medicine 09/28/19 04/26/24 documented as of this encounter
--- OUTSIDE RECORDS SUMMARY | 2024-10-20 03:55 | XMS_ITS | Encounter Summary ---
Author Organization [facility] Address [address] 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 No / Unsure 03/30/2020 1:33 PM CDT documented as of this encounter Last Filed Vital Signs Vital Sign Reading Time Taken Comments Blood Pressure 120/62 03/30/2020 1:38 PM CDT Pulse 73 03/30/2020 1:38 PM CDT Temperature 35.6 ??C (96.1 ??F) 03/30/2020 1:38 PM CD T Respiratory Rate 16 03/30/2020 1:38 PM CDT Oxygen Saturation 96% 03/30/2020 1:38 PM CDT Inhaled Oxygen Concentration - - Weight 103.7 kg (228 lb 9.6 oz) 03/30/2020 1:38 PM CDT Height 157.5 cm (5' 2 ) 03/30/2020 1:38 PM CDT Body Mass Index 41.81 03/30/2020 1:38 PM CDT documented in this encounter Patient Instructions * Patient Instructions* John Méndez MD - 03/30/2020 1:45 PM CDT Images from the original note were not included. Abscess (Antibiotic Treatment Only) An abscess happens when bacteria get trapped under the skin and start to grow. Pus forms inside theabscess as the body responds to the bacteria. An abscess can happen with an insect bite, ingrown hair, blocked oil gland, pimple, cyst, or puncture wound. It is sometimes call a boil. In the early stages, your wound may be red and tender. For this stage, you may get antibiotics. If the abscess does not get better with antibiotics, it will need to be drained with a small cut. Home care These tips will help you care for your abscess at home: ?? Soak the wound in hot water or apply hot packs (small towel soaked in hot water) to the area for20 minutes at a time. Do this 3 to 4 times a day, or as instructed. Use a new towel each time. Washthe towels afterward because they may be contaminated with bacteria after use. ?? Don't cut, squeeze, or pop the boil yourself. ?? Put antibiotic cream or ointment on the skin 3 to 4 times a day, unless something else was prescribed. Some ointments include an antibiotic plus a pain reliever. ?? If your healthcare provider prescribed antibiotics, don't stop taking them until you have finished the medicine or you are told to stop. ?? You may use an reeb-jgx-thsqugx pain medicine to control pain, unless another pain medicine was prescribed. Talk with your provider before taking these medicines if you have chronic liver or kidney disease or ever had a stomach ulcer or??digestive bleeding. Follow-up care Follow up with your healthcare provider, or as advised. Check your wound each day for the signs that the infection may be getting worse (see below). When to seek medical advice Get prompt medical attention if any of these occur: ?? An increase in redness or swelling ?? Red streaks in the skin leading away from the abscess ?? An increase in local pain or swelling ?? Fever of 100.4??F (38??C) or higher, or as directed by your healthcare provider ?? Pus or fluid coming from the abscess ?? Boil returns after getting better [employer] last reviewed this educational content on 05/13/2019 ?? 5520-5030 [employer]. [address] [place] [address]. All rights reserved. This information is not intended as a substitute for professional medical care. Always follow your healthcare professional's instructions. Folliculitis Folliculitis is an infection of a hair follicle. A hair follicle is the little pocket where a hair grows out of the skin. Bacteria normally live on the skin. But sometimes bacteria can get trapped pascale follicle and cause infection. This causes a bumpy rash. The area over the follicles is red and raised. It may itch or be painful. The bumps may have fluid (pus) inside. The pus may leak and then form crusts. Sores can spread to other areas of the body. Once it goes away, folliculitis can come back at any time. Severe cases may cause lasting (permanent) hair loss and scarring. Folliculitis can happen anywhere on the body where hair grows. It can be caused by rubbing from tight clothing. Ingrown hairs can cause it. Soaking in a hot tub or swimming pool that has bacteria in the water can cause it. It may also occur if a hair follicle is blocked by a bandage. Sores often go away in a few days with no treatment. In some cases, medicine may be given. A small piece of skin or pus may be taken to find the type of bacteria causing the infection. Home care The healthcare provider may prescribe an antibiotic cream or ointment.??Antibiotics taken by mouth (oral) may also be prescribed. Or you may be told to use an yaby-xuv-kvdwuce antibiotic cream. Follow all instructions when using any of these medicines. General care ?? Apply warm, moist compresses to the sores for 20 minutes up to 3 times a day. You can make a compress by soaking a cloth in warm water. Squeeze out excess water. ?? Don???t cut, poke, or squeeze the sores. This can be painful and spread infection. ?? Don???t scratch the affected area. Scratching can delay healing. ?? Don???t shave the areas affected by folliculitis. ?? If the sores leak fluid, cover the area with a nonstick gauze bandage. Use as little tape as possible. Carefully get rid of all soiled bandages. ?? Dress in loose cotton clothing. ?? Change sheets and blankets if they are soiled by pus. Wash all clothes, towels, sheets, and cloth diapers in soap and hot water. Don't share clothes, towels, or sheets with other family members. ?? Don't soak the sores in bath water. This can spread infection. Instead keep the area clean by gently washing sores with soap and warm water. ?? Wash your hands or use antibacterial gels often to prevent spreading the bacteria. Follow-up care Follow up with your healthcare provider, or as advised. When to get medical advice Call your healthcare provider right away??if any of these occur: ?? Fever of 100.4??F (38??C) or higher, or as directed by your provider ?? Rash spreads ?? Rash does not get better with treatment ?? Redness or swelling that gets worse ?? Rash becomes more painful ?? Foul-smelling fluid leaking from the skin ?? Rash improves, but then comes back?? [employer] last reviewed this educational content on 05/13/2019 ?? 4202-1875 [employer]. [address] [place] [address], [place] [address]. All rights reserved. This information is not intended as a substitute for professional medical care. Always follow your healthcare professional's instructions. Understanding Carbuncles A carbuncle (JAX-nzy-cdll) is a painful boil under the skin. It happens when a group of hair follicles become infected. Follicles are the tiny holes from which hair grows out of your skin. What causes carbuncles? A carbuncle is caused by an infection with bacteria, usually Staphylococcus aureus. They are commonon areas of the body where friction and sweat occur. They usually appear on the back of the neck, back, and thighs. This type of infection can also happen when the skin is injured, such as by a cut or bug bite. The bacteria that causes carbuncles can spread easily from person to person. People at higher risk for boils are those with diabetes or a weak immune system. Drug users who use needles are also more likely to get them. Symptoms of carbuncles A carbuncle starts as a small painful bump. But it can grow quickly. It may become: ?? Red ?? Swollen ?? Tender Carbuncles may ooze pus. They may also cause fever and a general feeling of illness. Treatment for carbuncles A carbuncle may heal on its own in a few weeks. But the pus within it needs to come out first. Treatment options include: ?? Warm compress. Putting a warm, wet washcloth on the boil will help the pus drain out. You shouldnever try to pop a boil. That can cause the infection to spread. ?? Surgical drainage. If the boil doesn???t drain on its own, your healthcare provider may need to cut into it. ?? Antibiotics. In some cases, oral antibiotics may be prescribed to fight the infection, especially if the carbuncle returns. You will likely have to take the medicine for 5 to 7 days. You may need to take it longer for a severe case. ?? Good hygiene. Proper handwashing can prevent boils from spreading and coming back. Also wash things that have been in contact with the carbuncle in hot water. This includes items such as clothing and towels. Complications of carbuncles The main complication of a carbuncle is the spreading of the infection. The bacteria can infect theheart and bone. It can also lead to septic shock, an infection of the entire body. When to call your healthcare provider Call your healthcare provider right away if you have any of these: ?? Fever of 100.4??F (38??C) or higher, or as directed ?? Redness, swelling, or fluid leaking from a carbuncle that gets worse ?? Pain that gets worse ?? Symptoms that don???t get better, or get worse ?? New symptoms [employer] last reviewed this educational content on 03/13/2019 ?? [id number] [employer]. [address] [place] [address]. All rights reserved. This information is not intended as a substitute for professional medical care. Always follow your healthcare professional's instructions. documented in this encounter Progress Notes * Maritza Escalera F - 03/30/2020 1:45 PM CDT Melinda Olmedo, 44 y.o., female is here for Cyst (lump under left arm) Medication Refills: Patient reports/denies need for medication [...] as needed for Wheezing or Cough. 12/14/19 Yes John Méndez MD amLODIPine (NORVASC) 10 [...] Tablet as needed. 06/15/19 Yes ProviderAdolfo MD montelukast (SINGULAIR) 10 MG Tablet Take 10 mg by mouth daily. 06/14/19 Yes ProviderAdolfo MD PROAIR HFA 108 (90 Base) MCG/ACT Aerosol Solution TAKE 2 PUFFS BY INHALATION EVERY 4 HOURS NEEDED FOR WHEEZING OR COUGH. 12/20/19 Yes John Méndez MD raNITIdine (ZANTAC) 150 MG Tablet Take 150 mg by mouth 2 times daily. 01/06/20 Yes ProviderAdolfo MD sertraline (ZOLOFT) 100 MG Tablet Take 2 Tabs by mouth daily. 09/28/19 Yes John Méndez MD tiZANidine (ZANAFLEX) 2 MG Capsule Take 2 mg by mouth nightly. Yes Provider, MD Adolfo valsartan (DIOVAN) 40 MG Tablet Take 1 [...] have been addressed with the patient today: pap * John Méndez MD - 03/30/2020 1:45 PM CDT Subjective: HPI Melinda M Wieneke, 44 y.o. female, is here for cyst under arm. Patient notes that she has an area under her left arm that has been painful over the last couple of days. She said that she shaved a few days ago and this occurred after she thing. She says it has gone more swollen and painful. She has not had any drainage and has not tried to drain herself. She said she was going to try to do that monalisa decided she should come in . 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 Patient notes that her recently had staph in his groin and she was caring for his wound so is concerned that this may be what she has. She said she did wear gloves and was careful when treating him. Past Medical History Positives Diagnosis Date ??? [...] file Occupational History ??? 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 Financial resource strain: [...] file Gets together: Not on file Attends jewish service: Not on file Active member of [...] chills, diaphoresis, fever, malaise/fatigue and weight loss. Skin: Positive for rash. Negative for itching. Objective: BP 120/62 Pulse 73 Temp (!) 96.1 ??F (35.6 ??C) (Temporal) Resp 16 Ht 5' 2 (1.575 m) Wt 228 lb 9.6 oz (103.7 kg) LMP (LMP Unknown) Comment: full SpO2 96% BMI 41.81 kg/m?? Physical Exam Vitals signs and nursing note reviewed. Constitutional: General: She is not in acute distress. Appearance: Normal appearance. She is obese. She is not ill-appearing or diaphoretic. Skin: General: Skin is warm and dry. Coloration: Skin is not pale. Findings: Erythema and lesion present. Comments: 1.5 cm papule present in the left axillary region. Just in the fold of the skin, She is tender. This is erythematous and also has three small openings. I am able to drain some purulent discharge out of the biggest opening. This was cultured. She was tender, she has erythema that surroundsthis area about another cm in circumference. She is tender. Slightly warm. Neurological: Mental Status: She is alert. Requested Number of Results for Past 12 Months Component Units 11/20/192013 WBC 10(3)/mcL 9.76 HEMOGLOBIN g/dL 12.0 HEMATOCRIT % 38.3 PLATELETCNT 10(3)/mcL 317 SGPTALT U/L 26 SGOTAST U/L 24 SODIUM mmol/L 137 POTASSIUM mmol/L 3.3* CHLORIDE mmol/L 98* CREATININE mg/dL 0.54* BUN mg/dL 11 CO2VEN mmol/L 29 GLUCOSE mg/dL 98 Assessment/Plan 1. Carbuncle of left axilla Culture is taken. Pt is given printed instructions on lesion. She is also told how to care for thisat home. We will also start her on bactrim ds one tab po bid x 10 days and we will notify her of the culture results when these are available. Pt voiced understanding. - sulfamethoxazole-trimethoprim DS (BACTRIM DS, SEPTRA DS) 800-160 MG Tablet; Take 1 Tab by mouth 2times daily for 10 days. Dispense: 20 Tab; Refill: 0 - CULTURE, AEROBIC documented in this encounter Plan of Treatment Upcoming Encounters Date Type Department Care Team (Late st Contact Info) Description 11/02/2024 8:15 AM TEMPERING MACHINE OPERATOR Office Visit [facility] [address] [place] [address] Dakota Fabian, MEDICAL SURGERY NURSE, PAPER CUTTER [address] [address] 11/26/2024 11:30 AM TEMPERING MACHINE OPERATOR Office Visit [facility] [address] [place] [address] Maggie Tolentino, PAC [address] [place] [address] documented as of this encounter Procedures Procedure Name Priority Date/Time Associated Diagnosis Comments CULTURE, AEROBIC Routine 03/30/2020 2:45 PM CDT Carbuncle of left axilla documented in this encounter Results * CULTURE, AEROBIC (03/30/2020 2:45 PM CDT) CULTURE RESULTS METHICILLIN RESISTANT STAPHYLOCOCCUS AUREUS 04/01/2020 8:05 AM CDT [facility] Culture ABSCESS MORPHOLOGY / Unknown Non-Phlebotomy Collection / Unknown 03/30/2020 2:45 PM CDT 03/30/2020 2:45 PM CDT Narrative Organism Antibiotic Method Susceptibility Methicillin Resistant Staph aureus Clindamycin [facility] VITEK II <=0.25 mcg/ml: Susceptible Methicillin Resistant Staph aureus Erythromycin [facility] VITEK II >=8 mcg/ml: Resistant Methicillin Resistant Staph aureus Gentamicin [facility] II <=0.5 mcg/ml: Susceptible Methicillin Resistant Staph aureus Oxacillin [facility] V[facility]K II >=4 mcg/ml: Resistant Methicillin Resistant Staph aureus Tetracycline [facility] II <=1 mcg/ml: Susceptible Methicillin Resistant Staph aureus Trimeth/Sulfamethoxazol e [facility] II <=10 mcg/ml: Susceptible Methicillin Resistant Staph aureus Vancomycin [facility] V[facility] II <=0.5 mcg/ml: Susceptible us John Méndez MD MICROBIOLOGY - GENERAL ORDERABLE S Final Result Performing Organization Address City/State/[facility] Co de Phone Number [facility] [address] [place] [address], documented in this encounter Visit Diagnoses Diagnosis Carbuncle of left axilla- Primary Carbuncle and furuncle of upper arm and forearm documented in this encounter Additional Health Concerns Assessment Noted Time PHQ-9 Depression Total Score: 0 10/19/19 20 12:31 PM TEMPERING MACHINE OPERATOR documented as of this encounter Care Teams Smocking Machine Operator Relationship Specialty Start Date End Date John Méndez MD PCP - General Family Medicine 09/28/19 04/26/24 documented as of this encounter
--- OUTSIDE RECORDS SUMMARY | 2024-10-20 03:55 | XMS_ITS | Encounter Summary ---
Author Organization [facility] Address [address] [facility] [place] [address] Phone Care Team Providers Care Box Printer Name Role Phone John Méndez MD Primary Care Provider [phone] Reason for Referral * Radiology Services (Routine) - Closed Specialty Diagnoses / Procedures Referred By Errolac t Referred To Contact Radiology Diagnoses Breast cancer screening by mammogram Procedures MARCO A SCREENING BILATERAL DIGITAL W CAD W John Waterman MD Phone: tel: fax: Referral ID Status Reason Start Date Expiration Date Visits Re quested Visits Authorized [id number] Closed 06/09/2020 1 1 Reason for Visit * Radiology Services (Routine) - Closed Specialty Diagnoses / Procedures Referred By Magui t Referred To Contact Radiology Diagnoses Breast cancer screening by mammogram Procedures MARCO A SCREENING BILATERAL DIGITAL W CAD W John Waterman MD Phone: tel: fax: Referral ID Status Reason Start Date Expiration Date Visits Re quested Visits Authorized [id number] Closed 06/09/2020 1 1 Encounter Details Date Type Department Care Team (Latest Contact Info) Description 07/22/2020 10:10 AM CDT - 07/22/2020 11:59 PM CDT Hospital Encounter [facility] [place] [address] John Méndez MD [address] [place] [address] Discharge Disposition: Discharged to home or Selfcare [...] 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 No / Unsure 07/22/2020 10:05 AM CDT documented as of this encounter Medications at Time of Discharge Acetaminophen-Code ine 300-60 MG Tablet TAKE 1 TAB BY MOUTH 2 TIMES DAILY NEEDED FOR MODERATE OR MORE SEVERE PAIN. 60 Tab 1 07/19/2020 0 albuterol (PROVENTIL/VENTOLI N) 1.25 MG/3ML Nebulizer SolnIndications:Wh eezing take 3 mL by inhalation every 4 hours as needed for Wheezing or Cough. 90 Vial 3 06/09/2020 2 amLODIPine (NORVASC) 10 MG TabletIndications: Essential hypertension Take 1 Tab by mouth daily. 90 Tab 3 09/28/2019 0 atorvastatin (LIPITOR) 20 MG TabletIndications: High cholesterol Take 1 Tab by mouth every evening. 90 Tab 3 09/28/2019 2 azithromycin (Zithromax Z-Carlo) 250 MG Tablet 2 tab(s) daily for 1 day, then 1 tab(s) daily for days 2-5. 6 Tab 07/04/2020 1 buPROPion (WELLBUTRIN) 300 MG TABLET SR 24 HR XL tabletIndications: Moderate episode of recurrent major depressive disorder (HCC),Anxiety Take 300 mg by mouth daily. 2 06/14/2019 2 busPIRone (BUSPAR) 15 MG TabletIndications: Anxiety Take 1 Tab by mouth 2 times daily. 270 Tab 3 12/02/2019 1 carvedilol (COREG) 6.25 MG TabletIndications: Essential hypertension Take 1 Tab by mouth 2 times daily. 180 Tab 3 09/28/2019 1 cetirizine (ZYRTEC) 10 MG TabletIndications: Chronic sinusitis, unspecified location Take 1 Tab by mouth daily. 90 Tab 3 09/28/2019 1 guaiFENesin-codein e (guaiFENesin AC) 100-10 MG/5ML SolutionIndication s:Mild intermittent asthma without complication,Wheez ing Take 5 mL by mouth every 4 hours as needed for Cough for up to 7 days. 300 mL 06/09/2020 1 hydroCHLOROthiazid e 25 MG TabletIndications: Essential hypertension Take 1 Tab by mouth daily. 90 Tab 3 09/28/2019 1 ibuprofen (MOTRIN) 800 MG TabletIndications: Sacroiliac joint dysfunction of both sides,Degenerative lumbar disc as needed. 0 06/15/2019 1 montelukast (SINGULAIR) 10 MG TabletIndications: Chronic sinusitis, unspecified location Take 10 mg by mouth daily. 3 06/14/2019 2 PROAIR HFA 108 (90 Base) MCG/ACT Aerosol SolutionIndication s:Wheezing,Broncho spasm, acute TAKE 2 PUFFS BY INHALATION EVERY 4 HOURS NEEDED FOR WHEEZING OR COUGH. 2 Inhaler 2 12/20/2019 0 sertraline (ZOLOFT) 100 MG TabletIndications: Moderate episode of recurrent major depressive disorder (HCC) Take 2 Tabs by mouth daily. 90 Tab 3 09/28/2019 1 tiZANidine (ZANAFLEX) 2 MG Capsule Take 2 mg by mouth nightly. 2 valsartan (DIOVAN) 40 MG Tablet Take 1 Tab by mouth daily. 30 Tab 3 01/11/2020 1 documented as of this encounter Plan of Treatment Upcoming Encounters Date Type Department Care Team (Late st Contact Info) Description 11/02/2024 8:15 AM GEOTECHNICAL INTERN Office Visit [facility] [address] [place] [address] Dakota Fabian, THOM, TAFFY CANDY MAKER [address] [address] 11/26/2024 11:30 AM GEOTECHNICAL INTERN Office Visit [facility] [address] [place] [address] Maggie Tolentino, PAC [address] [place] [address] documented as of this encounter Procedures Procedure Name Priority Date/Time Associated Diagnosis Comments MARCO A SCREENING BILATERAL DIGITAL W CAD W SHENG Routine 07/22/2020 10:32 AM CDT Breast cancer screening by mammogram documented in this encounter Results * MARCO [...] to exams dated: ??02/13/2016, 09/05/2018, and 12/27/2014 [facility]. ?? BREAST TISSUE:The tissue of both [...] Killian Sandoval M.D. ? ll/penrad:07/23/2020 20:19:36 ?? Stained Glass Joiner: Nina Metcalf RT(R)(M), [facility] letter sent: Normal Exam ?? Reading location: [facility]: 1 Negative Procedure Note Killian Sandoval [...] to exams dated: 02/13/2016, 09/05/2018, and 12/27/2014 [facility]. BREAST TISSUE:The tissue of both breasts [...] next screening exam. Electronically signed by: Killian barron/penrad:07/23/2020 20:19:36 Stained Glass Joiner: Nina Metcalf RT(R)(M), [facility] letter sent: Normal Exam Reading location: [facility]: 1 Negative us John Méndez MD IMG MAMMO ORDERABLES Final Resul t documented in this encounter Visit Diagnoses Diagnosis Breast cancer screening by mammogram documented in this encounter Additional Health Concerns Infection Onset Date Last Indicated Resolved Time MRSA 03/30/2020 03/30/2020 Assessment Noted Time PHQ-9 Depression Total Score: 0 10/19/19 20 12:31 PM GEOTECHNICAL INTERN documented as of this encounter Care Teams Box Printer Relationship Specialty Start Date End Date John Méndez MD PCP - General Family Medicine 09/28/19 04/26/24 documented as of this encounter
--- OUTSIDE RECORDS SUMMARY | 2024-10-20 03:55 | XMS_ITS | Encounter Summary ---
Author Organization 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 No / Unsure 11/15/2020 9:30 AM STEMHOLE BORER AND TOPPER documented as of this encounter Plan of Treatment Upcoming Encounters Date Type Department Care Team (Late st Contact Info) Description 11/02/2024 8:15 AM STEMHOLE BORER AND TOPPER Office Visit [facility] Medical Group - Family Medicine [facility] [address] [place] [address] Dakota Fabian, OIL MIXER, RESTAURANT CREW PERSON [address] [address] 11/26/2024 11:30 AM STEMHOLE BORER AND TOPPER Office Visit [facility] - [facility] - [place] [address] [place] [address] Maggie Tolentino, PAC [address] [place] [address] documented as of this encounter Visit Diagnoses Not on filedocumented in this encounter Additional Health Concerns Infection Onset Date Last Indicated Resolved Time MRSA 03/30/2020 03/30/2020 Assessment Noted Time PHQ-9 Depression Total Score: 0 10/19/19 20 12:31 PM STEMHOLE BORER AND TOPPER documented as of this encounter Care Teams Swatch Cutter Relationship Specialty Start Date End Date John Méndez MD PCP - General Family Medicine 09/28/19 04/26/24 documented as of this encounter
--- OUTSIDE RECORDS SUMMARY | 2024-10-20 03:55 | XMS_ITS | Encounter Summary ---
Author Organization [facility] Address [address] 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 I spoke to Antoinette at office and is working on her refills in the office and should sign today or tomorrow. Patient advised. TY ATTENDANT TY ATTENDANT * Telephone Encounter - Miguel Anisha Villarreal - 09/14/2020 11:15 AM CST Patient is calling to check status of refill request for Tylenol #4 . She is out of medication and would like to pick this up today. TY ATTENDANT * Telephone Encounter - Antoinette Arora RN - 09/12/2020 1:44 PM CST Last OV 06/09/20 - no follow up - last fill 08/16/20 - next Rx 09/15/20 Medication failed the protocol, provider to review and approve the medication order if appropriate. Requested Prescriptions Pending Prescriptions Disp Refills Acetaminophen-Codeine 300-60 MG Tablet [Pharmacy Med Name: ACETAMINOPHEN-COD #4 TABLET] 60 Tab 0 Sig: TAKE 1 TABLET BY MOUTH 2 TIMES DAILY NEEDED FOR MODERATE OR MORE SEVERE PAIN. Not Delegated - Analgesics: Opioid Agonist Combinations Failed - 09/12/2020 9:06 AM Failed - This refill cannot be delegated Passed - Valid encounter within last 6 months Past Office Visits Recent Outpatient Visits 3 months ago Mild intermittent asthma without [facility] - John Luna MD 4 months ago Acute non-recurrent maxillary sinusitis [facility] - John Luna MD 5 months ago Carbuncle of left axilla [facility] - John Luna [facility] 9 months [facility] 9 months ago Acute maxillary sinusitis, recurrence not specified [facility] [place] John Méndez MD Upcoming Appointments PHOTO PRODUCER - Recent and Past Visits Recent Visits Date Type Provider Dept 06/09/20 Office Visit John Méndze, MD [facility] 05/02/20 Office Visit John Méndez, MD [facility] 03/30/20 Office Visit John Méndez, MD [facility] 12/14/19 Office Visit John Méndez, [facility] 12/02/19 Office Visit John Méndez, MD [facility] 11/02/19 Office Visit Aylin Juan APN, MIGUEL ANGEL [facility] [place] 10/19/19 Office Visit Aylin Juan APN, BED TEACHER [facility] [place] 10/12/19 Office Visit Dakota Fabian APN, MIGUEL ANGEL [facility] [place] 09/28/19 Office Visit John Méndez, [facility] Showing recent visits within past 460 days with a meds authorizing provider and meeting all other requirements Future Appointments No visits were found meeting these conditions. Showing future appointments within next 90 days with a meds authorizing provider and meeting all other requirements TY ATTENDANT documented in this encounter Plan of Treatment Upcoming Encounters Date Type Department Care Team (Late st Contact Info) Description 11/02/2024 8:15 AM SAFETY ATTENDANT Office Visit [facility] [address] [place] [address] Dakota Fabian APRN, BED TEACHER [address] [address] 11/26/2024 11:30 AM SAFETY ATTENDANT Office Visit [facility] [address]2 [place] [address] Maggie Tolentino, PAC [address] [place] [address] documented as of this encounter Visit Diagnoses Not on filedocumented in this encounter Additional Health Concerns Infection Onset Date Last Indicated Resolved Time MRSA 03/30/2020 03/30/2020 COVID - 19 09/11/2024 09/11/2024 09/11/2024 7:21 PM SAFETY ATTENDANT Assessment Noted Time PHQ-9 Depression Total Score: 0 10/19/19 20 12:31 PM SAFETY ATTENDANT documented as of this encounter Care Teams Information Services Assistant Relationship Specialty Start Date End Date John Méndez MD PCP - General Family Medicine 09/28/19 04/26/24 Dakota Fabian APRN, BED TEACHER #[address] [address] PCP - General Advanced Practice Nurse 04/27/24 documented as of this encounter
--- OUTSIDE RECORDS SUMMARY | 2024-10-20 03:55 | XMS_ITS | Encounter Summary ---
Author Organization [facility] Address [address] [facility] [place] [address] Phone Care Team Providers Care Demo Coordinator Name Role Phone John Méndez MD Primary Care Provider [phone] Reason for Referral * Consult, Test & Initiate Treatment (Routine) - Closed Specialty Diagnoses / Procedures Referred By Contac t Referred To Contact Diagnoses Chronic sinusitis, unspecified location Dakota Fabian, THOM, HOG SCRAPER [address] [address] Phone: tel: fax: Baudilio Catalan MD [address] [facility] [address] [place] [address] Phone: tel: fax: Referral ID Status Reason Start Date Expiration Date Visits Re quested Visits Authorized [id number] Closed 07/07/2020 1 1 Scheduling Instructions Melinda is being referred to Dr. Catalan or other specialist in patient's insurance network for chronic sinusitis. See below for Melinda's current medications, allergies and problem list. Please contact patient for scheduling questions or concerns. CURRENT MEDS: Current Outpatient Medications: Acetaminophen-Codeine 300-60 MG Tablet, TAKE 1 TAB BY MOUTH 2 TIMES DAILY NEEDED FOR MODERATE OR MORE SEVERE PAIN., Disp: 60 Tab, Rfl: 1 albuterol (PROVENTIL/VENTOLIN) 1.25 MG/3ML Nebulizer Soln, take 3 mL by inhalation every 4 hours as needed for Wheezing or Cough., Disp: 90 Vial, Rfl: 3 amLODIPine (NORVASC) 10 MG Tablet, Take 1 Tab by mouth daily., Disp: 90 Tab, Rfl: 3 atorvastatin (LIPITOR) 20 MG Tablet, Take 1 Tab by mouth every evening., Disp: 90 Tab, Rfl: 3 azithromycin (Zithromax Z-Carlo) 250 MG Tablet, 2 tab(s) daily for 1 day, then 1 tab(s) daily for days 2-5., Disp: 6 Tab, Rfl: 0 buPROPion (WELLBUTRIN) 300 MG TABLET SR 24 HR XL tablet, Take 300 mg by mouth daily., Disp: , Rfl: 2 busPIRone (BUSPAR) 15 MG Tablet, Take 1 Tab by mouth 2 times daily., Disp: 270 Tab, Rfl: 3 carvedilol (COREG) 6.25 MG Tablet, Take 1 Tab by mouth 2 times daily., Disp: 180 Tab, Rfl: 3 cetirizine (ZYRTEC) 10 MG Tablet, Take 1 Tab by mouth daily., Disp: 90 Tab, Rfl: 3 hydroCHLOROthiazide 25 MG Tablet, Take 1 Tab by mouth daily., Disp: 90 Tab, Rfl: 3 ibuprofen (MOTRIN) 800 MG Tablet, as needed., Disp: , Rfl: 0 montelukast (SINGULAIR) 10 MG Tablet, Take 10 mg by mouth daily., Disp: , Rfl: 3 PROAIR HFA 108 (90 Base) MCG/ACT Aerosol Solution, TAKE 2 PUFFS BY INHALATION EVERY 4 HOURS NEEDED FOR WHEEZING OR COUGH., Disp: 2 Inhaler, Rfl: 2 sertraline (ZOLOFT) 100 MG Tablet, Take 2 Tabs by mouth daily., Disp: 90 Tab, Rfl: 3 tiZANidine (ZANAFLEX) 2 MG Capsule, Take 2 mg by mouth nightly., Disp: , Rfl: valsartan (DIOVAN) 40 MG Tablet, Take 1 Tab by mouth daily., Disp: 30 Tab, Rfl: 3 No current facility-administered medications for this visit. ALLERGIES: -- Penicillins -- Rash and Itching -- Reaction: Rash, , PROBLEM LIST: Patient Active Problem List: Sacroiliac joint dysfunction of both sides Cervicalgia Hypertensive disorder Hyperlipidemia Chronic sinusitis Degenerative lumbar disc Depression Anxiety Gastroesophageal reflux disease History of methicillin resistant Staphylococcus aureus infection Obstructive sleep apnea syndrome Restless legs syndrome Reason for Visit * Reason Onset Date Comments Pressure Behind the Eyes 07/04/2020 Encounter Details Date Type Department Care Team (Late st Contact Info) Description 07/04/2020 Nurse Triage [facility] [place] [address] John Méndez MD [address] [place] [address] Pressure Behind the Eyes Social History Tobacco Use Types Packs/Day Years [...] 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 No / Unsure 07/04/2020 11:30 AM CDT documented as of this encounter Miscellaneous Notes * Telephone Encounter - Serenity Barros RN - 07/07/2020 2:04 PM CDT Patient informed of referral verbalized understanding, all questions addressed. * Telephone Encounter - Dakota Fabian APN, CNP - 07/07/2020 1:07 PM CDT Signed referral for Dr. Catalan. * Telephone Encounter - Asia Vee RN - 07/04/2020 5:10 PM CDT Patient/parent/caregiver notified and verbalizes understanding. Patient/parent/caregiver will call with further questions or concerns. She is agreeable to see ENT. She says as long as they accept her insurance. She says that she is willing to see a provider in [place] or [place]. Please advise who you recommend. Thank you. She was seeing dr bruno but he moved away from the [facility]. * Telephone Encounter - John Méndez MD - 07/04/2020 3:09 PM CDT Sent Ask her if she is willing to go and see an ent doctor. * Telephone Encounter - Antoinette Weeks RN - 07/04/2020 11:30 AM CDT Patient calling. SITUATION (caller perception/concerns): Sinus congestion and cough BACKGROUND (events leading up to call): Lives [place] [address] from [place] and they are harvesting now. ASSESSMENT: Onset: Started 4 days ago with runny nose. Symptoms: Now has sinus pressure behind cheek bones and forehead - feels like her head is going to explode. Unable to blow much out yet. Denies ear or teeth pain. Cough is congested and brings up yellow/green phlegm. Cough is from the drainage. Denies chest congestion or SOB. Had a scratchy throat at first but that is gone. Voice is very raspy now. Pain: Present now: No Temp (route, time): 97.5 this morning oral Other Symptoms: Denies Treatment with response: Daily allergy medication and nasal spray. Has used her inhaler once and nebulizer once as well when gets bronchospasms. Nyquil at night - didn't help so stopped taking it. RECOMMENDATION: Discussed home cares. Patient is asking if PCP will call in a Z- pack for her. She is home alone with the kids so hard to come to office. Pharmacy, meds and allergies reviewed. Please advise. Thanks. See care advice and disposition for guideline. [...] questions. Teach-back method utilized. Reason for Disposition ? ? Sinus congestion as part of a cold, present < 10 days Protocols used: SINUS PAIN AND RZCIDYSOLA-N-HX documented in this encounter Plan of Treatment Upcoming Encounters Date Type Department Care Team (Late st Contact Info) Description 11/02/2024 8:15 AM RUBBER TIRE CURER Office Visit [facility] [address] [place] [address] Dakota Fabian APRN, HOG SCRAPER #[address] [address] 11/26/2024 11:30 AM RUBBER TIRE CURER Office Visit [facility] [address] [place] [address] Maggie Tolentino, PAC [address] [place] [address] Scheduled Referrals Name Type Priority Associated Diagnoses Orde r Schedule EXTERNAL ENT REFERRAL Outpatient Referral Routine Chronic sinusitis, unspecified location Expected: 01/02/2021, Expires: 05/05/2021 documented as of this encounter Visit Diagnoses Diagnosis Chronic sinusitis, unspecified location- Primary documented in this encounter Additional Health Concerns Infection Onset Date Last Indicated Resolved Time MRSA 03/30/2020 03/30/2020 Assessment Noted Time PHQ-9 Depression Total Score: 0 10/19/19 20 12:31 PM RUBBER TIRE CURER documented as of this encounter Care Teams Demo Coordinator Relationship Specialty Start Date End Date John Méndez MD PCP - General Family Medicine 09/28/19 04/26/24 documented as of this encounter
--- OUTSIDE RECORDS SUMMARY | 2024-10-20 03:55 | XMS_ITS | Encounter Summary ---
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 [address] [place] [address] documented as of this encounter Visit Diagnoses Not on filedocumented in this encounter Additional Health Concerns Assessment Noted Time PHQ-9 Depression Total Score: 0 10/19/19 20 12:31 PM MICROSOFT INFRASTRUCTURE CONSULTANT documented as of this encounter Care Teams Salon Customer Experience Specialist Relationship Specialty Start Date End Date John Méndez MD PCP - General Family Medicine 09/28/19 04/26/24 documented as of this encounter
--- OUTSIDE RECORDS SUMMARY | 2024-10-20 03:55 | XMS_ITS | Encounter Summary ---
Author Organization [facility] Address [address] [facility] 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 Requested Prescriptions Pending Prescriptions Disp Refills ??? amLODIPine (NORVASC) 10 MG Tablet [Pharmacy Med Name: AMLODIPINE BESYLATE 10 MG TAB] 30 Tab 5 Sig: TAKE 1 TABLET BY MOUTH EVERY DAY Cardiovascular: Calcium Channel Blockers Passed - 10/12/2020 12:00 AM Passed - Valid encounter within last 12 months Past Office Visits Recent Outpatient Visits 4 months ago Mild intermittent asthma without complication [facility] John Delarosa MD 5 months ago Acute non-recurrent maxillary sinusitis [facility] John Delarosa MD 6 months ago Carbuncle of left axilla [facility] John Delarosa MD 10 months ago Influenza [facility] John Delarosa MD 10 months ago Acute maxillary sinusitis, recurrence not specified [facility] Dave [place] MD Upcoming Appointments SOURCING SPECIALIST - Recent and Past Visits Recent Visits Date Type Provider Dept 06/09/20 Office Visit John Méndez MD [facility] 05/02/20 Office Visit John Méndez MD [facility] 03/30/20 Office Visit John Méndez MD [facility] 12/14/19 Office Visit John Méndez MD [facility] 12/02/19 Office Visit John Méndez MD [facility] 11/02/19 Office Visit Aylin Juan APN, MIGUEL ANGEL [facility] 10/19/19 Office Visit Aylin Juan APN, MIGUEL ANGEL [facility] 10/12/19 Office Visit Dakota Fabian APN, MIGUEL ANGEL [facility] 09/28/19 Office Visit John Méndez MD [facility] [place] Showing recent visits within past 460 days with a meds authorizing provider and meeting all other requirements Future Appointments No visits were found meeting these conditions. Showing future appointments within next 90 days with a meds authorizing provider and meeting all other requirements Passed - Last BP in normal range BP Readings from Last 1 Encounters: 06/09/20 132/80 LE SLIDE MAKER documented in this encounter Plan of Treatment Upcoming Encounters Date Type Department Care Team (Late st Contact Info) Description 11/02/2024 8:15 AM CRADLE SLIDE MAKER Office Visit [facility] [address] [place] [address] Dakota Fabian, THOM, MOCK UP ASSEMBLER #[address] [address] 11/26/2024 11:30 AM CRADLE SLIDE MAKER Office Visit [facility] [address] [place] [address] Maggie Tolentino, PAC [address] [place] [address] documented as of this encounter Visit Diagnoses Diagnosis Essential hypertension Unspecified essential hypertension documented in this encounter Additional Health Concerns Infection Onset Date Last Indicated Resolved Time MRSA 03/30/2020 03/30/2020 Assessment Noted Time PHQ-9 Depression Total Score: 0 10/19/19 20 12:31 PM CRADLE SLIDE MAKER documented as of this encounter Care Teams Area Director Relationship Specialty Start Date End Date John Méndez MD PCP - General Family Medicine 09/28/19 04/26/24 documented as of this encounter
--- OUTSIDE RECORDS SUMMARY | 2024-10-20 03:55 | XMS_ITS | Encounter Summary ---
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 Not on file documented as of this encounter Plan of Treatment Upcoming Encounters Date Type Department Care Team (Late st Contact Info) Description 11/02/2024 8:15 AM CLINICAL LABORATORY MANAGER Office Visit [facility] [address] [place] [address] Dakota Fabian APRN, SHOW HOST/HOSTESS #[address] [address] 11/26/2024 11:30 AM CLINICAL LABORATORY MANAGER Office Visit [facility] [address] [place] [address] Maggie Tolentino, PAC [address] [place] [address] documented as of this encounter Visit Diagnoses Not on filedocumented in this encounter Additional Health Concerns Assessment Noted Time PHQ-9 Depression Total Score: 0 10/19/19 20 12:31 PM CLINICAL LABORATORY MANAGER documented as of this encounter Care Teams Sinter Feeder Relationship Specialty Start Date End Date John Méndez MD PCP - General Family Medicine 09/28/19 04/26/24 documented as of this encounter
--- OUTSIDE RECORDS SUMMARY | 2024-10-20 03:55 | XMS_ITS | Encounter Summary ---
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 Not [...] st Contact Info) Description 11/02/2024 8:15 AM CHORUS MASTER Office Visit [facility] Medical Group - Family Medicine [facility] [address] [place] [address] Dakota Fabian, DRESSMAKER HELPER, SYSTEMS PROGRAM MANAGER #[address] [address] 11/26/2024 11:30 AM CHORUS MASTER Office Visit [facility] - [place] [address]2 [place] [address] Maggie Tolentino, PAC [address] [place] [address] documented as of this encounter Visit Diagnoses Not on filedocumented in this encounter Additional Health Concerns Infection Onset Date Last Indicated Resolved Time MRSA 03/30/2020 03/30/2020 Assessment Noted Time PHQ-9 Depression Total Score: 0 10/19/19 20 12:31 PM CHORUS MASTER documented as of this encounter Care Teams Comic Writer Relationship Specialty Start Date End Date John Méndez MD PCP - General Family Medicine 09/28/19 04/26/24 documented as of this encounter
--- OUTSIDE RECORDS SUMMARY | 2024-10-20 03:55 | XMS_ITS | Encounter Summary ---
Author Organization [facility] Address [address] 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 Not on file documented as of this encounter Plan of Treatment Upcoming Encounters Date Type Department Care Team (Late st Contact Info) Description 11/02/2024 8:15 AM ENAMELER [facility] [place] [facility] [place] [address] Dakota Fabian APRN, DOWN FILLER #[address] [address] 11/26/2024 11:30 AM ENAMELER [facility] [place] [facility] [place] [address] Maggie Tolentino PAC [address] [place] [address] documented as of this encounter Visit Diagnoses Not on filedocumented in this encounter Additional Health Concerns Infection Onset Date Last Indicated Resolved Time MRSA 03/30/2020 03/30/2020 COVID - 19 09/11/2024 09/11/2024 09/11/2024 7:21 PM ENAMELER Assessment Noted Time PHQ-9 Depression Total Score: 0 10/19/19 20 12:31 PM ENAMELER documented as of this encounter Care Teams Operational Test Mechanic Relationship Specialty Start Date End Date John Méndez MD PCP - General Family Medicine 09/28/19 04/26/24 Dakota Fabian APRN, DOWN FILLER #[address] [address] PCP - General Advanced Practice Nurse 04/27/24 documented as of this encounter
--- OUTSIDE RECORDS SUMMARY | 2024-10-20 03:55 | XMS_ITS | Encounter Summary ---
Author Organization [facility] Address [address] [facility] 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 No / Unsure 05/02/2020 12:31 PM CDT documented as of this encounter Miscellaneous Notes * Telephone Encounter - Lien Hensley RN - 05/20/2020 1:49 PM CDT Refill pended documented in this encounter Plan of Treatment Upcoming Encounters Date Type Department Care Team (Late st Contact Info) Description 11/02/2024 8:15 AM SENIOR CARE PROVIDER Office Visit [facility] [address] [place] [address] Dakota Fabian APRN, ALTERNATIVE EDUCATION TEACHER #[address] [address] 11/26/2024 11:30 AM SENIOR CARE PROVIDER Office Visit [facility] [address]2 [facility] [place] [address] Maggie Tolentino, PAC [address] [place] [address] documented as of this encounter Visit Diagnoses Not on filedocumented in this encounter Additional Health Concerns Infection Onset Date Last Indicated Resolved Time MRSA 03/30/2020 03/30/2020 Assessment Noted Time PHQ-9 Depression Total Score: 0 10/19/19 20 12:31 PM SENIOR CARE PROVIDER documented as of this encounter Care Teams Waiter/Waitress Buffet Relationship Specialty Start Date End Date John Méndez MD PCP - General Family Medicine 09/28/19 04/26/24 documented as of this encounter
--- OUTSIDE RECORDS SUMMARY | 2024-10-20 03:55 | XMS_ITS | Encounter Summary ---
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 Not [...] st Contact Info) Description 11/02/2024 8:15 AM PLACEMENT DIRECTOR Office Visit [facility] Medical Group - Family Medicine [facility] [address] [place] [address] Dakota Fabian, NEWSPAPER STUFFER, BUTTON BRADDER #[address] [address] 11/26/2024 11:30 AM PLACEMENT DIRECTOR Office Visit [facility] - [facility] - [place] [address] [place] [address] Maggie Tolentino, PAC [address] [place] [address] documented as of this encounter Visit Diagnoses Not on filedocumented in this encounter Additional Health Concerns Infection Onset Date Last Indicated Resolved Time MRSA 03/30/2020 03/30/2020 Assessment Noted Time PHQ-9 Depression Total Score: 0 10/19/19 20 12:31 PM PLACEMENT DIRECTOR documented as of this encounter Care Teams Pace Analyst Relationship Specialty Start Date End Date John Méndez MD PCP - General Family Medicine 09/28/19 04/26/24 documented as of this encounter
--- OUTSIDE RECORDS SUMMARY | 2024-10-20 03:56 | XMS_ITS | Encounter Summary ---
Author Organization [facility] [employer] 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 Not on file documented as of this encounter Plan of Treatment Upcoming Encounters Date Type Department Care Team (Late st Contact Info) Description 11/02/2024 8:15 AM PENAL OFFICER Office Visit [facility] [address] [place] [address] Dakota Fabian APRN, PHARMACEUTICAL SALES SPECIALIST #[address] [address] 11/26/2024 11:30 AM PENAL OFFICER Office Visit [facility] [address] [place] [address] Maggie Tolentino, PAC [address] [place] [address] documented as of this encounter Visit Diagnoses Not on filedocumented in this encounter Additional Health Concerns Assessment Noted Time PHQ-9 Depression Total Score: 0 09/28/20 9:12 AM PENAL OFFICER documented as of this encounter Care Teams Orbitread Operator Relationship Specialty Start Date End Date John Méndez MD PCP - General Family Medicine 09/28/19 04/26/24 documented as of this encounter
--- OUTSIDE RECORDS SUMMARY | 2024-10-20 03:56 | XMS_ITS | Encounter Summary ---
Author Organization [facility] Address [address] 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 Patient reports her back is hurting bad and she is hoping these can get refilled ALEXANDRE? Please advise ING SUPERVISOR * Telephone Encounter - Antoinette Vera RN - 10/27/2019 9:40 AM CST Requested Prescriptions Pending Prescriptions Disp Refills acetaminophen-codeine (TYLENOL #3) 300-30 MG Tablet 90 Tab 0 Sig: Take 1-2 Tabs by mouth 3 times daily as needed for Moderate or more severe pain. Not Delegated - Analgesics: Opioid Agonist Combinations Failed - 10/27/2019 9:10 AM Failed - This refill cannot be delegated Passed - Valid encounter within last 6 months Past Office Visits Recent Outpatient Visits 1 week ago Brown recluse spider bite or sting, accidental or unintentional, subsequent encounter [facility] PHYSICIAN [email or web address] FAMILY MEDICINE Aylin Juan APN, TECHNICAL SALES ENGINEER 2 weeks ago Acute URI [facility] FAMILY MEDICINE Dakota Fabian APN, YACHT HAND 4 weeks ago Sacroiliac joint dysfunction of both sides [facility] FAMILY MEDICINE John Méndez MD Upcoming Appointments Future Appointments In 6 days Aylin Juan APN, TECHNICAL SALES ENGINEER [facility] FAMILY [facility] In 2 months John Méndez MD [facility] ING SUPERVISOR * Telephone Encounter - Jeannie Mejia RN - 10/27/2019 9:10 AM CASTING SUPERVISOR ----- Message from Alecia Orona sent at 10/27/2019 8:42 AM CASTING SUPERVISOR ----- RFC: FAX REFILL REQUEST Name of medication needed? acetaminophen-codeine (TYLENOL #3) 300-30 MG Tablet Take 1-2 Tabs by mouth 3 times daily as needed for Moderate or more severe pain [facility]? 30 Provider John Méndez ING SUPERVISOR documented in this encounter Plan of Treatment Upcoming Encounters Date Type Department Care Team (Late st Contact Info) Description 11/02/2024 8:15 AM CASTING SUPERVISOR Office Visit [facility] [address] [place] [address] Dakota Fabian APRN, YACHT HAND #[address] [address] 11/26/2024 11:30 AM CASTING SUPERVISOR Office Visit [facility] [address]2 [facility] [place] [address] Maggie Tolentino, PAC [address] [place] [address] documented as of this encounter Visit Diagnoses Not on filedocumented in this encounter Additional Health Concerns Assessment Noted Time PHQ-9 Depression Total Score: 0 10/19/19 20 12:31 PM CASTING SUPERVISOR documented as of this encounter Care Teams Chicken Hanger Relationship Specialty Start Date End Date John Méndez MD PCP - General Family Medicine 09/28/19 04/26/24 documented as of this encounter
--- OUTSIDE RECORDS SUMMARY | 2024-10-20 03:56 | XMS_ITS | Encounter Summary ---
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 Not on file documented as of this encounter Plan of Treatment Upcoming Encounters Date Type Department Care Team (Late st Contact Info) Description 11/02/2024 8:15 AM FORENSIC TOXICOLOGIST Office Visit [facility] [address] [place] [address] Dakota Fabian APRN, AIRLINE CUSTOMER SERVICE AGENT #[address] [address] 11/26/2024 11:30 AM FORENSIC TOXICOLOGIST Office Visit [facility] [address] [place] [address] Maggie Tolentino, PAC [address] [place] [address] documented as of this encounter Visit Diagnoses Not on filedocumented in this encounter Additional Health Concerns Assessment Noted Time PHQ-9 Depression Total Score: 0 10/19/19 20 12:31 PM FORENSIC TOXICOLOGIST documented as of this encounter Care Teams Director Of Student Financial Services Relationship Specialty Start Date End Date John Méndez MD PCP - General Family Medicine 09/28/19 04/26/24 documented as of this encounter
--- OUTSIDE RECORDS SUMMARY | 2024-10-20 03:56 | XMS_ITS | Encounter Summary ---
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 Not on file documented as of this encounter Plan of Treatment Upcoming Encounters Date Type Department Care Team (Late st Contact Info) Description 11/02/2024 8:15 AM STUDENT ASSISTANT Office Visit [facility] [address]2 [place] [address] Dakota Fabian APRN, SOFTBALL COACH #[address] [address] 11/26/2024 11:30 AM STUDENT ASSISTANT Office Visit [facility] [address] [place] [address] Maggie Tolentino, PAC [address] [place] [address] documented as of this encounter Visit Diagnoses Not on filedocumented in this encounter Additional Health Concerns Assessment Noted Time PHQ-9 Depression Total Score: 0 10/19/19 20 12:31 PM STUDENT ASSISTANT documented as of this encounter Care Teams Laborer Orchard Relationship Specialty Start Date End Date John Méndez MD PCP - General Family Medicine 09/28/19 04/26/24 documented as of this encounter
--- OUTSIDE RECORDS SUMMARY | 2024-10-20 03:56 | XMS_ITS | Encounter Summary ---
Author Organization [facility] Address [address] [place] [address] Phone Care Team Providers Care Pocket Flap Creasing Machine Operator Name Role Phone John Méndez MD Primary Care Provider Reason for Visit * Reason Comments Wound sore on right leg Encounter Details Date Type Department Care Team (Late st Contact Info) Description 10/19/2019 12:45 PM CONCRETE FLOOR INSTALLER Office Visit [facility] - Family [facility] [address] [place] [address] Aylin Juan APRN, SENIOR RESEARCH ENGINEER #[address] [phone] Brown recluse spider bite or sting, accidental or unintentional, subsequent encounter (Primary Dx) Discharge Disposition: Discharged to home [...] 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 Not on file Not on file Not on file documented as of this encounter Last Filed Vital Signs Vital Sign Reading Time Taken Comments Blood Pressure 136/96 10/19/2019 12:37 PM CONCRETE FLOOR INSTALLER Pulse 83 10/19/2019 12:37 PM CONCRETE FLOOR INSTALLER Temperature 37.6 ??C (99.7 ??F) 10/19/2019 12:[address] Respiratory Rate 18 10/19/2019 12:37 PM CONCRETE FLOOR INSTALLER Oxygen Saturation 98% 10/19/2019 12:37 PM CONCRETE FLOOR INSTALLER Inhaled Oxygen Concentration - - Weight 105.2 kg (232 lb) 10/19/2019 12:37 PM CONCRETE FLOOR INSTALLER Height 157.5 cm (5' 2 ) 10/19/2019 12:37 PM CONCRETE FLOOR INSTALLER Body Mass Index 42.43 10/19/2019 12:37 PM CONCRETE FLOOR INSTALLER documented in this encounter Progress Notes * Chidi Wyman D, RMA - 10/19/2019 12:45 PM CST Melinda Izzy Olmedo, 44 y.o., female is here for Wound (sore on right leg ) Medication Refills: Patient reports/denies need for medication refills. Orders Pended: no Requested Prescriptions No prescriptions requested or ordered in this encounter Home Medications Medication Sig Start Date End Date Taking? Authorizing Provider acetaminophen-codeine (TYLENOL #3) 300-30 MG Tablet Take 1-2 Tabs by mouth 3 times daily as needed for Moderate or more severe pain. 09/28/19 John Méndez MD amLODIPine (NORVASC) 10 MG Tablet Take 1 Tab by mouth daily. 09/28/19 John Méndez MD atorvastatin (LIPITOR) 20 MG Tablet Take 1 Tab by mouth every evening. 09/28/19 John Méndez MD buPROPion (WELLBUTRIN) 150 MG XL tablet Take 150 mg by mouth daily. Emergency, Nurse, RN buPROPion (WELLBUTRIN) 300 MG TABLET SR 24 HR XL tablet Take 300 mg by mouth daily. 06/14/19 Provider, MD Adolfo busPIRone (BUSPAR) 15 MG Tablet Take 1 Tab by mouth 4 times daily. 09/28/19 John Méndez MD carvedilol (COREG) 6.25 MG Tablet Take 1 Tab by mouth 2 times daily. 09/28/19 John Méndez MD cetirizine (ZYRTEC) 10 MG Tablet Take 1 Tab by mouth daily. 09/28/19 John Méndez MD guaiFENesin-codeine (CHERATUSSIN AC) 100-10 MG/5ML Syrup Take 5 mL by mouth every 6 hours as neededfor Cough. 10/12/19 Dakota Fabian, CLINICAL FACULTY, SENIOR RESEARCH ENGINEER hydroCHLOROthiazide 25 MG Tablet Take 1 Tab by mouth daily. 09/28/19 John Méndez MD HYDROcodone-acetaminophen (NORCO) 5-325 MG Tablet Take 1 Tab by mouth every 6 hours as needed for Moderate or more severe pain. 10/17/19 Guido Turner MD ibuprofen (MOTRIN) 600 MG Tablet Take 1 Tab by mouth every 8 hours as needed for Moderate or more severe pain. 10/17/19 Guido Turner MD ibuprofen (MOTRIN) 800 MG Tablet as needed. 06/15/19 Adolfo Sotomayor MD losartan (COZAAR) 25 MG Tablet Take 1 Tab by mouth daily. 09/28/19 John Méndez MD losartan potassium-hydrochlorothiazide (HYZAAR) 100-25 MG Tablet Take 1 Tab by mouth. 05/16/19 Adolfo Sotomayor MD montelukast (SINGULAIR) 10 MG Tablet Take 10 mg by mouth daily. 06/14/19 Adolfo Sotomayor MD sertraline (ZOLOFT) 100 MG Tablet Take 2 Tabs by mouth daily. 09/28/19 John Méndez MD tiZANidine (ZANAFLEX) 2 MG Capsule Take 2 mg by mouth nightly. ProviderAdolfo MD There are no discontinued medications. [...] Date Due ??? Pap Smear 1996 ??? Influenza Immunization (1) 06/13/2019 Orders Pended: no The following BPA's have been addressed with the patient today: Flu, PAP and Depression RETE FLOOR INSTALLER * Aylin Juan APN, MIGUEL ANGEL - 10/19/2019 12:45 PM CST Images from the original note were not included. Chief Complaint Patient presents with ??? Wound sore on right leg Subjective: Patient is a 44-year-old female who presents today with chief complaint of a wound to her right lagos which is leaking clear yellow fluid. Patient was in the emergency department 2 days ago with complaints of a spider bite. Patient reports she was cleaning the porch and she had knocked over a nest. Patient reports there were lots of brown spiders with long legs and she felt a pinch in the area of the wound. Patient states she was seen by the ED and discharged home with hydrocodone and ibuprofen.Patient states she is concerned the area may be infected due to history of MRSA. Patient states that it started leaking clear fluid yesterday. Patient also reports is slightly increased in size and is tender to touch. Patient takes chronic Tylenol 3 but reports she has lost her prescription. She isnot due for a refill until 10/29/2019 Past Medical History Positives Diagnosis Date ??? Anxiety ??? Broken arm 12/2015 lower left ??? Broken leg 2016 Right leg ??? Chronic sinusitis ??? Degenerative lumbar disc ??? Depression ??? High cholesterol ??? Hypertension Current Outpatient Medications on File Prior to Visit Medication Sig Dispense Refill ??? acetaminophen-codeine (TYLENOL #3) 300-30 MG Tablet Take 1-2 Tabs by mouth 3 times daily as needed for Moderate or more severe pain. 90 Tab 0 ??? amLODIPine (NORVASC) 10 [...] 1 Tab by mouth 4 times daily. 270 Tab 3 ??? carvedilol (COREG) 6.25 MG Tablet Take 1 Tab by mouth 2 times daily. 180 Tab 3 ??? cetirizine (ZYRTEC) 10 MG Tablet Take 1 Tab by mouth daily. 90 Tab 3 ??? hydroCHLOROthiazide 25 MG Tablet Take 1 Tab by mouth daily. 90 Tab 3 ??? HYDROcodone-acetaminophen (NORCO) 5-325 MG Tablet Take 1 Tab by mouth every 6 hours as needed for Moderate or more severe pain. 12 Tab 0 ??? ibuprofen (MOTRIN) 800 MG Tablet as needed. 0 ??? losartan (COZAAR) 25 MG Tablet Take 1 Tab by mouth daily. 90 Tab 3 ??? losartan potassium-hydrochlorothiazide (HYZAAR) 100-25 MG Tablet Take 1 Tab by mouth. ??? montelukast (SINGULAIR) 10 MG Tablet Take 10 mg by mouth daily. 3 ??? sertraline (ZOLOFT) 100 MG Tablet Take 2 Tabs by mouth daily. 90 Tab 3 ??? tiZANidine (ZANAFLEX) 2 MG Capsule Take 2 mg by mouth nightly. No current facility-administered medications on file prior to visit. Allergies Allergen Reactions ??? Penicillins Rash and Itching Reaction: Rash, , Past Surgical History: Procedure Laterality Date ??? ECTOPIC SURGERY 2005 ??? ANESTH,LOWER ARM SURGERY 2016 To repair break /left arm ??? ANESTH,LOWER LEG,OPEN SURGERY 2017 Right leg close to ankle ??? HYSTERECTOMY Total hysterectomy ??? LAPAROSCOPY laparoscopic exploratory abdominal surgery ??? SALPINGO-OOPHORECTOMY Review of Systems Constitutional: Negative for activity change, appetite change, chills, diaphoresis, fatigue, fever and unexpected weight change. Respiratory: Negative for cough, choking, chest tightness, shortness of breath, wheezing and stridor. Cardiovascular: Negative for chest pain, palpitations and leg swelling. Gastrointestinal: Negative for abdominal distention, abdominal pain, diarrhea, nausea and vomiting. Musculoskeletal: Positive for back pain (Chronic low back pain) and myalgias (Right lagos). Negativefor arthralgias, gait problem, joint swelling, neck pain and neck stiffness. Skin: Positive for wound (Right lagos). Negative for color change, pallor and rash. Neurological: Negative for dizziness, tremors, seizures, syncope, speech difficulty, weakness, light-headedness, numbness and headaches. Hematological: Negative for adenopathy. Does not bruise/bleed easily. Objective: Physical Exam Vitals signs and nursing note reviewed. Constitutional: General: She is not in acute distress. Appearance: Normal appearance. She is well-developed. She is obese. She is not diaphoretic. HENT: Head: Normocephalic and atraumatic. Right Ear: External ear normal. Left Ear: External ear normal. Mouth/Throat: Mouth: Mucous membranes are moist. Pharynx: Oropharynx is clear. Eyes: Conjunctiva/sclera: Conjunctivae normal. Pupils: Pupils are equal, round, and reactive to light. Neck: Musculoskeletal: Normal range of motion. Trachea: No tracheal deviation. Cardiovascular: Rate and Rhythm: Normal rate and regular rhythm. Heart sounds: Normal heart sounds. No murmur. Pulmonary: Effort: Pulmonary effort is normal. No respiratory distress. Breath sounds: Normal breath sounds. No wheezing or rales. Abdominal: General: Bowel sounds are normal. There is no distension. Palpations: Abdomen is soft. Tenderness: There is no tenderness. There is no guarding or rebound. Musculoskeletal: Lumbar back: She exhibits decreased range of motion and tenderness. Right lower leg: No edema. Left lower leg: No edema. Skin: General: Skin is warm and dry. Capillary Refill: Capillary refill takes less than 2 seconds. Findings: Erythema and wound present. Neurological: General: No focal deficit present. Mental Status: She is alert and oriented to person, place, and time. Cranial Nerves: No cranial nerve deficit. Psychiatric: Mood and Affect: Mood normal. Behavior: Behavior normal. Thought Content: Thought content normal. Judgment: Judgment normal. Vital Signs Vitals: 10/19/19 1237 BP: (!) 136/96 BP Location: Left Arm BP Position: Sitting Pulse: 83 Resp: 18 Temp: 99.7 ??F (37.6 ??C) TempSrc: Tympanic SpO2: 98% Weight: 232 lb (105.2 kg) Height: 5' 2 (1.575 m) Lab Results No visits with results within 1 Month(s) from this visit. Latest known visit with results is: Admission on 09/20/2018, Discharged on 09/20/2018 Component Date Value Ref Range Status ??? SODIUM 09/20/2018 136 136 - 144 mmol/L Final ??? POTASSIUM 09/20/2018 3.6 3.5 - 5.1 mmol/L Final ??? CHLORIDE 09/20/2018 95* 100 - 110 mmol/L Final ??? CO2, VENOUS 09/20/2018 28 22 - 32 mmol/L Final ??? ANION GAP 09/20/2018 16.6 8.0 - 20.0 mmol/L Final ??? GLUCOSE 09/20/2018 83 70 - 99 mg/dL Final ??? BUN 09/20/2018 16 6 - 20 mg/dL Final ??? CREATININE, BLOOD 09/20/2018 0.57* 0.60 - 1.10 mg/dL Final ??? BUN/CREATININE RATIO 09/20/2018 28* 12 - 20 ratio Final ??? TOTAL PROTEIN 09/20/2018 7.9 6.0 - 8.3 g/dL Final ??? ALBUMIN 09/20/2018 4.5 3.5 - 5.2 g/dL Final The colormetric methods used for the determination of Albumin may lead to falsely elevated test results in patients suffering from renal failure or insufficiency due to interference with other proteins. ??? A/G RATIO 09/20/2018 1.3 1.0 - 2.0 Final ??? CALCIUM 09/20/2018 9.4 8.9 - 10.3 mg/dL Final ? ? T BILI 09/20/2018 <=0.2 <=1.2 mg/dL Final ? ? SGOT (AST) 09/20/2018 18 <=32 U/L Final ? ? SGPT (ALT) 09/20/2018 20 <=33 U/L Final ??? ALKALINE PHOSPHATASE 09/20/2018 95 35 - 105 U/L Final ? ? GFR, EST. NONAFRICAN 09/20/2018 >60 >=60 Final ? ? GFR, EST. 09/20/2018 >60 >=60 Final Creatinine Clearance is the preferred criteria for selecting drug dose adjustments in renally impaired patients. The GFR is provided as additional pertinent clinical information. GFR is reported in mL/min/1.73 sq m. ??? LIPASE 09/20/2018 54.7 13 - 60 U/L Final ??? SPECIFIC GRAVITY 09/20/2018 1.015 1.003 - 1.030 Final ??? URINE PH 09/20/2018 6.5 5.0 - 9.0 Final ??? WBC ESTERASE 09/20/2018 100 /uL* Negative Final ??? NITRITE 09/20/2018 Negative Negative Final ??? PROTEIN, RANDOM URINE 09/20/2018 15 mg/dL* Negative mg/dL Final ??? URINE GLUCOSE, QUAL 09/20/2018 Negative Negative Final ??? URINE KETONES 09/20/2018 Negative Negative mg/dL Final ??? UROBILINOGEN 09/20/2018 Normal Normal mg/dL Final ??? URINE BILIRUBIN 09/20/2018 Negative Negative Final ??? URINE BLOOD 09/20/2018 Negative Negative marjorie/ul Final ??? URINALYSIS COLOR 09/20/2018 Pale yellow Final ??? URINALYSIS CLARITY 09/20/2018 Slightly Cloudy Final ??? WBC (Urine) 09/20/2018 6-10* Negative, 0-5 /hpf Final ??? URINE RBC'S 09/20/2018 0-2 Negative, 0-2 /hpf Final ??? EPITHELIAL CELLS 09/20/2018 Small amount /lpf Final ??? BACTERIA, URINE 09/20/2018 Moderate* Negative /hpf Final ??? URINE MUCOUS 09/20/2018 Few Final ??? WBC 09/20/2018 5.89 4.00 - 12.00 10(3)/mcL Final ??? RBC 09/20/2018 4.65 3.80 - 5.30 10(6)/mcL Final ??? HEMOGLOBIN (HGB) 09/20/2018 12.6 12.0 - 15.8 g/dL Final ??? HEMATOCRIT (HCT) 09/20/2018 38.8 36.0 - 47.0 % Final ??? MCV 09/20/2018 83.4 82.0 - 96.0 fL Final ??? MCH 09/20/2018 27.1 26.0 - 34.0 pg Final ??? MCHC 09/20/2018 32.5 31.0 - 36.0 g/dL Final ??? PLATELET COUNT 09/20/2018 365 140 - 440 10(3)/mcL Final ??? RDW 09/20/2018 13.7 11.8 - 15.5 % Final ??? MPV 09/20/2018 10.3 9.7 - 12.4 fL Final ??? NEUTROPHILS 09/20/2018 60.1 47.0 - 73.0 % Final ??? LYMPHOCYTES 09/20/2018 30.1 18.0 - 42.0 % Final ??? MONOCYTES 09/20/2018 6.6 4.0 - 12.0 % Final ??? EOSINOPHILS 09/20/2018 2.4 0.0 - 5.0 % Final ??? BASOPHILS 09/20/2018 0.8 0.0 - 1.0 % Final ??? ABSOLUTE NEUTROPHILS 09/20/2018 3.54 1.60 - 7.70 10(3)/mcL Final ??? ABSOLUTE LYMPHOCYTES 09/20/2018 1.77 1.30 - 3.20 10(3)/mcL Final ??? ABSOLUTE MONOCYTES 09/20/2018 0.39 0.20 - 1.00 10(3)/mcL Final ??? ABSOLUTE EOSINOPHIL 09/20/2018 0.14 0.00 - 0.40 10(3)/mcL Final ??? ABSOLUTE BASOPHILS 09/20/2018 0.05 0.00 - 0.10 10(3)/mcL Final ??? NRBC PER 100 WBC 09/20/2018 0 Final ??? CULTURE RESULTS 09/20/2018 MIXED GROWTH OF 3 OR MORE ORGANISMS, PROBABLE COLLECTION CONTAMINATION, SUGGEST REPEAT URINE CULTURE. Final Lab Results Component Value Date WBC 5.89 09/20/2018 HEMOGLOBIN 12.6 09/20/2018 HEMATOCRIT 38.8 09/20/2018 PLATELETCNT 365 09/20/2018 Lab Results Component Value Date SODIUM 136 09/20/2018 POTASSIUM 3.6 09/20/2018 CHLORIDE 95 (L) 09/20/2018 CO2VEN 28 09/20/2018 ANIONGAP 16.6 09/20/2018 GLUCOSE 83 09/20/2018 BUN 16 09/20/2018 CREATININE 0.57 (L) 09/20/2018 BCRATIO8 28 (H) 09/20/2018 TOTALPROTEIN 7.9 09/20/2018 ALBUMIN 4.5 09/20/2018 CALCIUM 9.4 09/20/2018 TBIL <=0.2 09/20/2018 SGOTAST 18 09/20/2018 SGPTALT 20 09/20/2018 ALKALINEPHO 95 09/20/2018 GFRNA >60 09/20/2018 GFRA >60 09/20/2018 Please see results review for comprehensive lab results. Assessment and Plan See Diagnoses, Orders, Follow-up, and Instructions 1. Brown recluse spider bite or sting, accidental or unintentional, subsequent encounter Raised area with erythema approximately dime-sized. Patient reports clear yellow discharge. None noted on examination today. Encouraged patient to continue to keep the area clean and dry and she can apply triple antibiotic ointment as needed. Patient will notify the office if the erythemic begins to spread greater than quarter sized, any purulent discharge, fever or chills. Patient verbalizes understanding. Will come back in 10 days for wound check. I discussed all new medications and potential side effects or risks associated with them. Patient is to contact our office with any concerns. Patient instructions and educational materials were given to the patient. Patient (or patient traffic workforce representative) demonstrates verbal understanding of instructions given. [...] referring physician. Documentation for this visit on 10/19/2019 was completed using a template. I have seen and examinedthe patient. Everything documented was personally performed at this visit with the necessary additions, deletions and changes made as appropriate. RETE FLOOR INSTALLER documented in this encounter Plan of Treatment Upcoming Encounters Date Type Department Care Team (Late st Contact Info) Description 11/02/2024 8:15 AM CONCRETE FLOOR INSTALLER Office Visit [facility] [address] [place] [phone] Dakota Fabian APRN, SENIOR RESEARCH ENGINEER #[address] [phone] 11/26/2024 11:30 AM CONCRETE FLOOR INSTALLER Office Visit [facility] [place] [facility] [place] [address] Maggie Tolentino PAC [address] [place] [address] documented as of this encounter Visit Diagnoses Diagnosis Brown recluse spider bite or sting, accidental or unintentional, subsequent encounter- Primary documented in this encounter Additional Health Concerns Assessment Noted Time PHQ-9 Depression Total Score: 0 10/19/19 20 12:31 PM CONCRETE FLOOR INSTALLER documented as of this encounter Care Teams Pocket Flap Creasing Machine Operator Relationship Specialty Start Date End Date John Méndez MD PCP - General Family Medicine 09/28/19 04/26/24 documented as of this encounter
--- OUTSIDE RECORDS SUMMARY | 2024-10-20 03:56 | XMS_ITS | Encounter Summary ---
Author Organization [facility] Address [address] 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 Not on file Not on file documented as of this encounter Last Filed Vital Signs Vital Sign Reading Time Taken Comments Blood Pressure 145/102 10/17/2019 6:54 PM LOAN DOCUMENTS CLOSER Pulse 78 10/17/2019 6:54 PM LOAN DOCUMENTS CLOSER Temperature 37.2 ??C (99 ??F) 10/17/2019 5:58 PM LOAN DOCUMENTS CLOSER Respiratory Rate 16 10/17/2019 6:54 PM LOAN DOCUMENTS CLOSER Oxygen Saturation 100% 10/17/2019 6:54 PM LOAN DOCUMENTS CLOSER Inhaled Oxygen Concentration - - Weight 90.7 kg (200 lb) 10/17/2019 5:58 PM LOAN DOCUMENTS CLOSER Height 157.5 cm (5' 2 ) 10/17/2019 5:58 PM LOAN DOCUMENTS CLOSER Body Mass Index 36.58 10/17/2019 5:58 PM LOAN DOCUMENTS CLOSER documented in this encounter Discharge Instructions * Attachments The following attachments cannot be sent through Care Everywhere. * Bite, Brown Recluse Spider (Belarusian) documented in this encounter Medications at Time of Discharge acetaminophen-code ine (TYLENOL #3) 300-30 MG Tablet Take 1-2 Tabs by mouth 3 times daily as needed for Moderate or more severe pain. 90 Tab 09/28/2019 0 amLODIPine (NORVASC) 10 MG TabletIndications: Essential hypertension Take 1 Tab by mouth daily. 90 Tab 3 09/28/2019 0 atorvastatin (LIPITOR) 20 MG TabletIndications: High cholesterol Take 1 Tab by mouth every evening. 90 Tab 3 09/28/2019 2 buPROPion (WELLBUTRIN) 150 MG XL tablet Take 150 mg by mouth daily. 0 buPROPion (WELLBUTRIN) 300 MG TABLET SR 24 HR XL tabletIndications: Moderate episode of recurrent major depressive disorder (HCC),Anxiety Take 300 mg by mouth daily. 2 06/14/2019 2 busPIRone (BUSPAR) 15 MG TabletIndications: Anxiety Take 1 Tab by mouth 4 times daily. 270 Tab 3 09/28/2019 0 carvedilol (COREG) 6.25 MG TabletIndications: Essential hypertension Take 1 Tab by mouth 2 times daily. 180 Tab 3 09/28/2019 1 cetirizine (ZYRTEC) 10 MG TabletIndications: Chronic sinusitis, unspecified location Take 1 Tab by mouth daily. 90 Tab 3 09/28/2019 1 guaiFENesin-codein e (CHERATUSSIN AC) 100-10 MG/5ML SyrupIndications:A cute URI Take 5 mL by mouth every 6 hours as needed for Cough. 180 mL 10/12/2019 0 hydroCHLOROthiazid e 25 MG TabletIndications: Essential hypertension Take 1 Tab by mouth daily. 90 Tab 3 09/28/2019 1 HYDROcodone-acetam inophen (NORCO) 5-325 MG Tablet Take 1 Tab by mouth every 6 hours as needed for Moderate or more severe pain. 12 Tab 10/17/2019 0 ibuprofen (MOTRIN) 600 MG Tablet Take 1 Tab by mouth every 8 hours as needed for Moderate or more severe pain. 60 Tab 10/17/2019 0 ibuprofen (MOTRIN) 800 MG TabletIndications: Sacroiliac joint dysfunction of both sides,Degenerative lumbar disc as needed. 0 06/15/2019 1 losartan (COZAAR) 25 MG TabletIndications: Essential hypertension Take 1 Tab by mouth daily. 90 Tab 3 09/28/2019 0 losartan potassium-hydrochl orothiazide (HYZAAR) 100-25 MG Tablet Take 1 Tab by mouth. 05/16/2019 0 montelukast (SINGULAIR) 10 MG TabletIndications: Chronic sinusitis, unspecified location Take 10 mg by mouth daily. 3 06/14/2019 2 sertraline (ZOLOFT) 100 MG TabletIndications: Moderate episode of recurrent major depressive disorder (HCC) Take 2 Tabs by mouth daily. 90 Tab 3 09/28/2019 1 tiZANidine (ZANAFLEX) 2 MG Capsule Take 2 mg by mouth nightly. 2 documented as of this encounter ED Notes * Monty Stuart, RN - 10/17/2019 7:01 PM CST Patient discharged. Discharge instructions and patient educational material reviewed with patient; questions and concerns addressed; patient verbalizes understanding, using teach back. Patient was given 2 prescriptions. Patient was informed no drinking alcohol, driving or operating heavy machinery while taking narcotics or muscle relaxants. Patient discharged per ambulatory mode with mother as responsible republican/cement mixer driver home. DOCUMENTS CLOSER * Monty Stuart, RN - 10/17/2019 6:34 PM CST Pt medicated per provider orders. Pt educated on intended effects and side effects of medication and verbalized understanding, able to provide teach back of education. DOCUMENTS CLOSER * Guido Turner MD - 10/17/2019 6:13 PM CST Chief Complaint Patient presents with ??? Wound Check Melinda Olmedo is a 44 y.o. female who presents to the ED c/o dime-sized blister to the right lagos onset tonight. The patient was cleaning boxes in a dark corner of her porch when she claims she was bit by a spider. The physical characteristics of the bite are consistent with a brown recluse bite, and the area has progressed from a small wound to a dime-sized area with blister formation. The patient states the pain to the blistered wound is a 9/10 in severity, and she has not taken any pain medication prior to her arrival to this ED. In addition, the patient's last Tetanus shot was two years ago. No current facility-administered medications for this encounter. [...] file Occupational History ??? 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 Financial resource strain: Not [...] file Gets together: Not on file Attends faith service: Not on file Active member of [...] Narrative ??? Not on file BP (!) 145/102 Pulse 78 Temp 99 ??F (37.2 ??C) (Tympanic) Resp 16 Ht 5' 2 (1.575 m) Wt 200 lb (90.7 kg) LMP (LMP Unknown) SpO2 100% BMI 36.58 kg/m?? Review of Systems Constitutional: Negative for chills and fever. HENT: Negative for trouble swallowing. Eyes: Negative for visual disturbance. Respiratory: Negative for cough and shortness of breath. Cardiovascular: Negative for chest pain and palpitations. Gastrointestinal: Negative for abdominal pain, nausea and vomiting. Genitourinary: Negative for dysuria, frequency and urgency. Musculoskeletal: Positive for arthralgias (right lagos) and myalgias (right lagos). Skin: Positive for wound (blistered wound to the right lagos). Neurological: Negative for speech difficulty, weakness, numbness and headaches. All other systems reviewed and are negative. Physical Exam Constitutional: She is oriented to person, place, and time. She appears well- developed and well-nourished. No distress. Body mass index is 36.58 kg/m??. The patient is a somewhat obese female. HENT: Head: Normocephalic and atraumatic. Mouth/Throat: Oropharynx is clear and moist. Face symmetric Eyes: Pupils are equal, round, and reactive to light. Conjunctivae and EOM are normal. Neck: Normal range of motion. Neck supple. Cardiovascular: Normal rate, regular rhythm, normal heart sounds and intact distal pulses. Exam reveals no gallop and no friction rub. No murmur heard. Pulmonary/Chest: Effort normal and breath sounds normal. No respiratory distress. She has no wheezes. She has no rales. Abdominal: Soft. Bowel sounds are normal. She exhibits no distension. There is no tenderness. Thereis no rebound and no guarding. Musculoskeletal: Normal range of motion. General: No tenderness, deformity or edema. Lymphadenopathy: She has no cervical adenopathy. Neurological: She is alert and oriented to person, place, and time. Skin: Skin is warm and dry. No rash noted. She is not diaphoretic. No erythema. No pallor. The patient's right lagos has a dime-sized blistered area with yellowish fluid under the dome of thearea. There is no significant erythema at present. Psychiatric: She has a normal mood and affect. Her behavior is normal. Judgment and thought contentnormal. Nursing note and vitals reviewed. Procedures MDM Labs Reviewed - No data to display No orders to display Reviewed: previous chart, nursing note and vitals Clinical Impression 1. Brown recluse spider bite or sting, accidental or unintentional, initial encounter 18:13. At bedside for initial evaluation. 18:26. The patient remained stable throughout their ED stay. My clinical impression was discussed with the patient/caregiver. Any labs and radiology results were reviewed. Questions were addressed ascompletely as possible given the information available at present. The therapeutic plan was discussed, instructions were given and the importance of primary care follow up was stressed and encouraged. The patient/caregiver voiced understanding of the plan, indications to return, and the need for follow up. New Medications: Discharge Medication List as of 10/17/2019 6:32 PM START taking these medications Details HYDROcodone-acetaminophen (NORCO) 5-325 MG Tablet 1 Tab, Oral, EVERY 6 HOURS PRN Starting 10/17/2019, Normal, Disp-12 Tab, R-0. !! ibuprofen (MOTRIN) 600 MG Tablet 600 mg, Oral, EVERY 8 HOURS PRN Starting 10/17/2019, Normal, Disp-60 Tab, R-0 !! - Potential duplicate medications found. Please discuss with provider. I have advised the patient to follow-up with: John Méndez MD [id number] [address] As needed Disposition: Discharge By signing my name below, I, George Jackson, attest that this documentation has been prepared under the direction and in the presence of Dr. Guido Turner. Electronically Signed: Irasema Her, 10/21/19 7:20 AM I, Dr. Turner, personally performed the services described in this documentation. All medical recordentries made by the scribe were at my direction and in my presence. I have reviewed the chart and discharge instructions and agree that the record reflects my personal performance and is accurate andcomplete. Dr. Turner, 10/21/19 7:20 AM DOCUMENTS CLOSER * Evelyne Tian RN - 10/17/2019 5:58 PM CST Patient here with spider bite to her right lower leg. States she did see the spider that bit here. Started out as a small red dot and now has a large blister looking wound that appears to have yellowcoloring to the center. C/o pain. Alert. No distress. DOCUMENTS CLOSER documented in this encounter Plan of Treatment Upcoming Encounters Date Type Department Care Team (Late st Contact Info) Description 11/02/2024 8:15 AM LOAN DOCUMENTS CLOSER Office [place] [facility] [address] [place] [id number] Dakota Fabian APRN, DELICATESSEN CLERK [address] [place] [address] 11/26/2024 11:30 AM LOAN DOCUMENTS CLOSER Office [facility] [place] [address] Maggie Tolentino, PAC [address] [place] [address] documented as of this encounter Visit Diagnoses Diagnosis Brown recluse spider bite or sting, accidental or unintentional, initial encounter- Primary documented in this encounter Administered Medications Inactive Administered Medications - up to 3 most recent administrations Medication Order MAR Action Action Date Dose Rate Site HYDROcodone-acetaminophen (NORCO) 5-325 MG per tablet 1 Tab 1 Tablet, Oral, ONCE, 1 dose, On 10/17/19 at 1900, Maximum dose of acetaminophen is 4000 mg from all sources in 24 hours.If pain not effectively managed, then contact provider to discuss possibly 1) adding scheduled opioid dosing or non-opioid pain treatments, 2) increasing dosage, or 3) changing to LOAN REVIEW MANAGER. Given 10/17/2019 6:29 PM LOAN DOCUMENTS CLOSER 1 Tablet ibuprofen (MOTRIN) tablet 600 mg 600 mg, Oral, ONCE, 1 dose, On 10/17/19 at 1900 Given 10/17/2019 6:29 PM LOAN DOCUMENTS CLOSER 600 mg documented in this encounter Active and Recently Administered Medications Times are shown in LOAN DOCUMENTS CLOSER. Scheduled Medication Order 10/15/2019 10/16/2019 10/17/2019 HYDROcodone-acetaminophen (NORCO) 5-325 MG per tablet 1 Tab (COMPLETED) 1 Tablet, Oral, ONCE, 1 dose, On 10/17/19 at 1900, Maximum dose of acetaminophen is 4000 mg from all sources in 24 hours.If pain not effectively managed, then contact provider to discuss possibly 1) adding scheduled opioid dosing or non-opioid pain treatments, 2) increasing dosage, or 3) changing to LOAN REVIEW MANAGER. 1828 (Given - Provid er: Monty Stuart RN) ibuprofen (MOTRIN) tablet 600 mg (COMPLETED) 600 mg, Oral, ONCE, 1 dose, On 10/17/19 at 1900 1828 (Given - Provid er: Monty Stuart RN) documented in this encounter Additional Health Concerns Assessment Noted Time PHQ-9 Depression Total Score: 0 09/28/20 19 9:12 AM LOAN DOCUMENTS CLOSER documented as of this encounter Care Teams Blueprint Clerk Relationship Specialty Start Date End Date John Méndez MD PCP - General Family Medicine 09/28/19 04/26/24 documented as of this encounter
--- OUTSIDE RECORDS SUMMARY | 2024-10-20 03:56 | XMS_ITS | Encounter Summary ---
Author Organization [facility] Address [address] [facility] [address] 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 Voiced understanding. States that she did not ask for refill, pharmacy did. SION ANALYST * Telephone Encounter - John Méndez MD - 11/08/2019 6:19 PM CST I just filled this one week ago. No way she can use 90 tabs in one week. She is taking this way toomuch if she is. This is to be for one month. SION ANALYST * Telephone Encounter - Tisha Kingsley RN - 11/08/2019 2:20 PM DECISION ANALYST Requested Prescriptions Pending Prescriptions Disp Refills acetaminophen-codeine (TYLENOL #3) 300-30 MG Tablet [Pharmacy Med Name: ACETAMINOPHEN-COD #3 TABLET] 90 Tab 0 Sig: TAKE 1-2 TABS BY MOUTH 3 TIMES DAILY NEEDED FOR MODERATE OR MORE SEVERE PAIN. Not Delegated - Analgesics: Opioid Agonist Combinations Failed - 11/08/2019 2:20 PM Failed - This refill cannot be delegated Passed - Valid encounter within last 6 months Past Office Visits Recent Outpatient Visits 6 days ago Spider bite wound, accidental or unintentional, subsequent encounter [facility] Aylin Juan GERIATRIC PHYSICAL THERAPIST, SURVEILLANCE AGENT 2 weeks ago Brown recluse spider bite or sting, accidental or unintentional, subsequent encounter [facility] Aylin Juan APN, SURVEILLANCE AGENT 3 weeks ago Acute URI [facility] Dakota Fabian, GERIATRIC PHYSICAL THERAPIST, CONTAINER WASHER 1 month ago Sacroiliac joint dysfunction of both sides [facility] John Méndez MD Upcoming Appointments Future Appointments In 1 month John Méndez MD [facility], [facility] SION ANALYST documented in this encounter Plan of Treatment Upcoming Encounters Date Type Department Care Team (Late st Contact Info) Description 11/02/2024 8:15 AM DECISION ANALYST Office Visit [facility] [address] [place] [address] Dakota Fabian APRN, CONTAINER WASHER [address] [address] 11/26/2024 11:30 AM DECISION ANALYST Office Visit [facility] [address] [place] [address] Maggie Tolentino, PAC [address] [place] [address] documented as of this encounter Visit Diagnoses Not on filedocumented in this encounter Additional Health Concerns Assessment Noted Time PHQ-9 Depression Total Score: 0 10/19/19 20 12:31 PM DECISION ANALYST documented as of this encounter Care Teams Patrol Mother Relationship Specialty Start Date End Date John Méndez MD PCP - General Family Medicine 09/28/19 04/26/24 documented as of this encounter
--- OUTSIDE RECORDS SUMMARY | 2024-10-20 03:56 | XMS_ITS | Encounter Summary ---
Author Organization [facility] Address [address] 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 Not on file documented as of this encounter Last Filed Vital Signs Vital Sign Reading Time Taken Comments Blood Pressure 130/90 11/02/2019 8:25 AM SOLID FIBER PASTER OPERATOR Pulse 58 11/02/2019 8:25 AM SOLID FIBER PASTER OPERATOR Temperature 36.3 ??C (97.3 ??F) 11/02/2019 8:25 AM CS T Respiratory Rate 16 11/02/2019 8:2 5 AM SOLID FIBER PASTER OPERATOR Oxygen Saturation 99% 11/02/2019 8:25 AM SOLID FIBER PASTER OPERATOR Inhaled Oxygen Concentration - - Weight 106.8 kg (235 lb 6.4 oz) 11/02/2019 8:25 AM SOLID FIBER PASTER OPERATOR Height 157.5 cm (5' 2 ) 11/02/2019 8:25 AM SOLID FIBER PASTER OPERATOR Body Mass Index 43.06 11/02/2019 8:25 AM SOLID FIBER PASTER OPERATOR documented in this encounter Progress Notes * Maggie Nelson, RMA - 11/02/2019 8:30 AM CST Melinda Magana Huanmarita, 44 y.o., female is here for Insect Bite Medication Refills: Patient reports/denies need for medication refills. Orders Pended: no Requested Prescriptions No prescriptions requested or ordered in this encounter Home Medications Medication Sig Start Date End Date Taking? Authorizing Provider acetaminophen-codeine (TYLENOL #3) 300-30 MG Tablet Take 1-2 Tabs by mouth 3 times daily as needed for Moderate or more severe pain. 10/29/19 John Méndez MD amLODIPine (NORVASC) 10 MG [...] addressed with the patient today: Flu and pap smear D FIBER PASTER OPERATOR * Aylin Juan APN, MERCHANDISER - 11/02/2019 8:30 AM CST Images from the original note were not included. Chief Complaint Patient presents with ??? Insect Bite Subjective: Patient is a 44-year-old female who presents today for 2 week follow-up to spider bite. Patient reports that approximately 1 week after being bitten by the spider the area was healed. Patient denies discharge, erythema, pain, or swelling. Patient reports that she feels fine. Past Medical History Positives Diagnosis Date ??? [...] Penicillins Rash and Itching Reaction: Rash, , Review of Systems Constitutional: Negative for activity change, appetite change, chills, diaphoresis, fatigue, fever and unexpected weight change. Respiratory: Negative for cough, choking, chest tightness, shortness of breath and wheezing. Cardiovascular: Negative for chest pain and palpitations. Skin: Negative for rash and wound. Objective: Physical Exam Vitals signs and nursing note reviewed. Constitutional: General: She is not in acute distress. Appearance: She is well-developed. She is not diaphoretic. HENT: Head: Normocephalic and atraumatic. Eyes: Pupils: Pupils are equal, round, and reactive to light. Neck: Trachea: No tracheal deviation. Cardiovascular: Rate and Rhythm: Normal rate and regular rhythm. Heart sounds: No murmur. No friction rub. No gallop. Pulmonary: Effort: Pulmonary effort is normal. No respiratory distress. Breath sounds: Normal breath sounds. No stridor. No wheezing, rhonchi or rales. Musculoskeletal: Right lower leg: No edema. Left lower leg: No edema. Skin: General: Skin is warm and dry. Capillary Refill: Capillary refill takes less than 2 seconds. Findings: No lesion, rash or wound. Neurological: General: No focal deficit present. Mental Status: She is alert and oriented to person, place, and time. Psychiatric: Behavior: Behavior normal. Thought Content: Thought content normal. Judgment: Judgment normal. Vital Signs Vitals: 11/02/19 0825 BP: 130/90 Pulse: 58 Resp: 16 Temp: 97.3 ??F (36.3 ??C) TempSrc: Temporal SpO2: 99% Weight: 235 lb 6.4 oz (106.8 kg) Height: 5' 2 (1.575 m) Lab [...] See Diagnoses, Orders, Follow-up, and Instructions 1. Spider bite wound, accidental or unintentional, subsequent encounter -resolved. Normal healing S took this time discussed the patient's flu shot and Pap smear. Patient reports she refer [facility]her influenza [facility]. Will attempt to obtain that record. Patient reports she has not had a Pap smear in over 3 years as she had a total hysterectomy dueto endometriosis. Patient reports she does have a small piece of cervix. Patient states she will make an appointment to see her OBGYN for well-woman exam. No other health maintenance updates needed. I discussed all new medications and potential side effects or risks associated with them. Patient is to contact our office with any concerns. Patient instructions and educational materials were given to the patient. Patient (or patient insurance claims representative) demonstrates verbal understanding of instructions given. [...] referring physician. Documentation for this visit on 11/02/2019 was completed using a template. I have seen and examinedthe patient. Everything documented was personally performed at this visit with the necessary additions, deletions and changes made as appropriate. D FIBER PASTER OPERATOR documented in this encounter Plan of Treatment Upcoming Encounters Date Type Department Care Team (Late st Contact Info) Description 11/02/2024 8:15 AM SOLID FIBER PASTER OPERATOR Office Visit [facility] [address] [place] [address] Dakota Fabian APRN, MIGUEL ANGEL [address] [address] 11/26/2024 11:30 AM SOLID FIBER PASTER OPERATOR Office Visit [facility] [address] [place] [address] Maggie Tolentino PAC [address] [place] [address] documented as of this encounter Visit Diagnoses Diagnosis Spider bite wound, accidental or unintentional, subsequent encounter- Primary documented in this encounter Additional Health Concerns Assessment Noted Time PHQ-9 Depression Total Score: 0 10/19/19 12:31 PM SOLID FIBER PASTER OPERATOR documented as of this encounter Care Teams Complaint Clerk Relationship Specialty Start Date End Date John Méndez MD PCP - General Family Medicine 09/28/19 04/26/24 documented as of this encounter
--- OUTSIDE RECORDS SUMMARY | 2024-10-20 03:56 | XMS_ITS | Encounter Summary ---
Author Organization [facility] Address [address] 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 Not on file Not on file documented as of this encounter Last Filed Vital Signs Vital Sign Reading Time Taken Comments Blood Pressure 138/103 11/20/2019 9:54 PM PUBLICIST Pulse 119 11/20/2019 9:54 PM PUBLICIST Temperature 36.9 ??C (98.5 ??F) 11/20/2019 9:53 PM CS T Respiratory Rate 18 11/20/2019 9:54 PM PUBLICIST Oxygen Saturation 94% 11/20/2019 9:54 PM PUBLICIST Inhaled Oxygen Concentration - - Weight 90.7 kg (200 lb) 11/20/2019 7:11 PM PUBLICIST Height 157.5 cm (5' 2 ) 11/20/2019 7:11 PM PUBLICIST Body Mass Index 36.58 11/20/2019 7:11 PM PUBLICIST documented in this encounter Discharge Instructions * Discharge Instructions* Tisha Rosario PAC - 11/20/2019 9:49 PM PUBLICIST Please push fluids and avoid caffeine. Followup with your primary care provider. Return if you haveany worsening symptoms. ICIST * Attachments The following attachments cannot be sent through Care Everywhere. * Urinary Tract Infections in Women (Irish) documented in this encounter Medications at Time of Discharge acetaminophen-code ine (TYLENOL #3) 300-30 MG Tablet Take 1-2 Tabs by mouth 3 times daily as needed for Moderate or more severe pain. 90 Tab 10/29/2019 0 amLODIPine (NORVASC) 10 MG TabletIndications: Essential [...] mouth daily. 90 Tab 3 09/28/2019 1 hydroCHLOROthiazid e 25 MG TabletIndications: Essential hypertension Take 1 Tab by mouth daily. 90 Tab 3 09/28/2019 1 ibuprofen (MOTRIN) 800 MG TabletIndications: Sacroiliac joint dysfunction of both sides,Degenerative lumbar disc as needed. 0 06/15/2019 1 losartan (COZAAR) 25 MG TabletIndications: Essential hypertension Take 1 Tab by mouth daily. 90 Tab 3 09/28/2019 0 montelukast (SINGULAIR) 10 MG TabletIndications: Chronic sinusitis, unspecified location Take 10 mg by mouth daily. 3 06/14/2019 2 ondansetron (ZOFRAN) 4 MG Tablet Take 1 Tab by mouth every 8 hours as needed for Nausea - 1st line. 10 Tab 11/20/2019 0 sertraline (ZOLOFT) 100 MG TabletIndications: Moderate episode of recurrent major depressive disorder (HCC) Take 2 Tabs by mouth daily. 90 Tab 3 09/28/2019 1 sulfamethoxazole-t rimethoprim DS (BACTRIM DS) 800-160 MG Tablet Take 1 Tab by mouth 2 times daily for 7 days. 14 Tab 11/20/2019 0 tiZANidine (ZANAFLEX) 2 MG Capsule Take 2 mg by mouth nightly. 2 documented as of this encounter ED Notes * Amelie Angel RN - 11/20/2019 9:55 PM CST Patient discharged. Discharge instructions and patient educational material reviewed with patient; questions and concerns addressed; patient verbalizes understanding, using teach back. Patient was given 2 prescriptions. Patient discharged per ambulatory mode with as responsible green party. TK D/C'ed with Yogesh cath intact. ICIST * Tiffanie Mazariegos RN - 11/20/2019 9:53 PM CST Patient discharged. Discharge instructions and patient educational material reviewed with patient; questions and concerns addressed; patient verbalizes understanding, using teach back. Patient was given 2 prescriptions. Patient discharged per ambulatory mode with self as responsible green party. ICIST * Eliu Méndez MD - 11/20/2019 7:24 PM CST Chief Complaint Patient presents with ??? Flank Pain right Melinda Olmedo is a 44 y.o. female who presents to the ED c/o right flank pain. Pt states she is unable to eat or drink due to the pain. She states the onset of the pain was at 4 AM today and it woke her up. She states nausea and vomiting as well. She states she drinks soda a lot. She states she has not been able to urinate today but states some dysuria yesterday. She has a Hx of HTN and HLD. She has a surgical Hx of a hysterectomy. Pt has never smoked. No current facility-administered medications for this encounter. [...] by mouth daily. 90 Tab 3 ??? sulfamethoxazole-trimethoprim DS (BACTRIM DS) 800-160 MG Tablet Take 1 Tab by mouth 2 times daily for 7 days. 14 Tab 0 ??? tiZANidine (ZANAFLEX) 2 MG Capsule [...] file Occupational History ??? 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 Financial resource strain: Not [...] file Gets together: Not on file Attends adventist service: Not on file Active member of [...] Narrative ??? Not on file BP (!) 138/103 Pulse (!) 119 Temp 98.5 ??F (36.9 ??C) Resp 18 Ht 5' 2 (1.575 m) Wt 200 lb (90.7 kg) LMP (LMP Unknown) SpO2 94% BMI 36.58 kg/m?? Review of Systems Constitutional: Positive for appetite change (Unable to eat or drink). Negative for chills and fever. HENT: Negative for trouble swallowing. Eyes: Negative for visual disturbance. Respiratory: Negative for cough and shortness of breath. Cardiovascular: Negative for chest pain and palpitations. Gastrointestinal: Positive for nausea and vomiting. Genitourinary: Positive for dysuria and flank pain (Right). Negative for frequency and urgency. Neurological: Negative for speech difficulty, weakness, numbness and headaches. All other systems reviewed and are negative. Physical Exam Constitutional: She is oriented to person, place, and time. She appears well- developed and well-nourished. No distress. HENT: Head: Normocephalic and atraumatic. Mouth/Throat: Oropharynx [...] She exhibits no distension. There is no rebound and no guarding. Right flank tenderness with palpation. Musculoskeletal: Normal range of motion. General: No tenderness, deformity or edema. Lymphadenopathy: She has no cervical adenopathy. Neurological: She is alert and oriented to person, place, and time. Skin: Skin is warm and dry. No rash noted. She is not diaphoretic. No erythema. No pallor. Psychiatric: She has a normal mood and affect. Her behavior is normal. Judgment and thought contentnormal. Nursing note and vitals reviewed. Procedures MDM Labs Reviewed URINALYSIS REFLEX IF INDICATED BY ABNORMAL RESULTS - Abnormal; Notable for the following components: Result Value WBC ESTERASE 500 /uL (*) WBC (Urine) 21-50 (*) URINE RBC'S 3-5 (*) BACTERIA, URINE Moderate (*) All other components within normal limits CMP (COMPREHENSIVE METABOLIC PANEL) - Abnormal; Notable for the following components: POTASSIUM 3.3 (*) CHLORIDE 98 (*) CREATININE, BLOOD 0.54 (*) All other components within normal limits LIPASE - Abnormal; Notable for the following components: LIPASE 10.1 (*) All other components within normal limits CBC WITH AUTO DIFFERENTIAL - Abnormal; Notable for the following components: NEUTROPHILS 75.6 (*) LYMPHOCYTES 15.2 (*) All other components within normal limits CULTURE, URINE COMPLETE BLOOD COUNT (CBC) WITH DIFF Narrative: The following orders were created for panel order Complete Blood Count (CBC) WITH Diff. Procedure Abnormality Status --------- ------ CBC with Auto Differential[[id number]] Abnormal Final result Please view results for these tests on the individual orders. URINALYSIS REFLEX IF INDICATED BY ABNORMAL RESULTS Final Result Complete Blood Count (CBC) WITH Diff Final Result CMP (Comprehensive Metabolic Panel) Final Result Lipase Final Result Reviewed: previous chart, nursing note and vitals Interpretation: labs Clinical Impression 1. Urinary tract infection 19:34. At bedside for initial evaluation. Patient presents with right flank pain. She was given injection of Toradol and Compazine which helped relieve the discomfort. Labs were obtained with the positive urine showing a urinary tract infection. These findings were explained to the patient and she will be discharged home on antibiotics andadvised follow- up with regular doctor for recheck in approximately a week. By signing my name below, I, Janusz Gomez, attest that this documentation has been prepared under the direction and in the presence of Dr. méndez. Electronically Signed: Irasema Burnham. 11/20/19 7:34 PM I, Dr. Méndez, personally performed the services described in this documentation. All medical recordentries made by the scribe were at my direction and in my presence. I have reviewed the chart and discharge instructions and agree that the record reflects my personal performance and is accurate andcomplete. Dr. Méndez, 11/20/19 9:59 PM ICIST * Amelie Angel RN - 11/20/2019 7:12 PM CST Patient presents ambulatory to triage with complaint of right flank pain with nausea and vomiting since 0400 today. Has been unable to drink or eat today. Has history of kidney infections. Alert and oriented x4. Respirations non labored. ICIST documented in this encounter Plan of Treatment Upcoming Encounters Date Type Department Care Team (Late st Contact Info) Description 11/02/2024 8:15 AM PUBLICIST Office Visit [facility] [address] [place] [address] Dakota Fabian APRN, WHEEL CLEANER [address] [address] 11/26/2024 11:30 AM PUBLICIST Office Visit [facility] [address] [place] [address] Maggie Tolentino, PAC [address] [place] [address] documented as of this encounter Procedures Procedure Name Priority Date/Time Associated Diagnosis Comments URINALYSIS REFLEX IF INDICATED BY ABNORMAL RESULTS STAT 11/20/2019 9:08 PM PUBLICIST CULTURE, URINE STAT 11/20/2019 9:08 PM PUBLICIST CBC WITH AUTO DIFFERENTIAL STAT 11/20/2019 8:14 PM PUBLICIST LIPASE STAT 11/20/2019 8:14 PM PUBLICIST CMP (COMPREHENSIVE METABOLIC PANEL) STAT 11/20/2019 8:14 PM PUBLICIST COMPLETE BLOOD COUNT (CBC) WITH DIFF STAT 11/20/2019 8:14 PM PUBLICIST documented in this encounter Results * Culture, Urine (11/20/2019 9:08 PM PUBLICIST) CULTURE RESULTS ENTEROCOCCUS 11/23/2019 7:56 AM PUBLICIST [facility] CULTURE RESULTS ALSO MIXED GROWTH OF DISTAL URETHRA CONTAMINANTS. 11/23/2019 7:56 AM PUBLICIST [facility] Urine specimen (specimen) URINE SPECIMEN / Unknown Non-Phlebotomy Collection / Unknown 11/20/2019 9:08 PM PUBLICIST 11/20/2019 9:12 PM PUBLICIST Narrative [facility] - 11/23/2019 7:56 AM PUBLICIST Susceptibility not performed on enterococcus species. ??Due to high achievable concentrations in urine, Ampicillin is the drug of choice for treating infections limited to the lower urinary tract (regardless of Vancomycin susceptibility). ??For allergic patients, Nitrofurantoin or a quinolone may be substituted. ??For epidemiological purposes only, a Vancomycin screen will be performed and reported if positive. us Eliu Méndez MD MICROBIOLOGY - GENERAL OR DERABLES Final Result [facility] [address] [address], [place] * (ABNORMAL) URINALYSIS REFLEX IF INDICATED BY ABNORMAL RESULTS (11/20/2019 9:08 PM PUBLICIST) SPECIFIC GRAVITY 1.015 1.003 - 1.030 11/20/2019 9:27 PM [facility] URINE PH 7.0 5.0 - 9.0 11/20/2019 9:27 PM [facility] WBC ESTERASE 500 /uL(A) Negative 11/20/2019 9:27 PM [facility] NITRITE Negative Negative 11/20/2019 9:27 PM [facility] PROTEIN, RANDOM URINE Negative Negative 11/20/2019 9:27 PM [facility] URINE GLUCOSE, QUAL Negative Negative 11/20/2019 9:27 PM [facility] URINE KETONES Negative Negative 11/20/2019 9:27 PM [facility] UROBILINOGEN Normal Normal mg/dL 11/20/2019 9:27 PM [facility] URINE BILIRUBIN Negative Negative 0 9:27 PM [facility] URINE BLOOD Negative Negative marjorie/ul 11/20/2019 9:27 PM [facility] URINALYSIS COLOR Yellow 11/20/19 20 9:27 PM [facility] URINALYSIS CLARITY Slightly Cloudy 11/20/2019 9:27 PM [facility] WBC (Urine) 21-50(A) Negative, 0-5 /hpf 11/20/2019 9:27 PM [facility] URINE RBC'S 3-5(A) Negative, 0-2 /hpf 11/20/2019 9:27 PM [facility] EPITHELIAL CELLS Moderate amount /lpf 11/20/2019 9:27 PM [facility] BACTERIA, URINE Moderate(A) Negative /hpf 11/20/2019 9:27 PM [facility] URINE MUCOUS Many 11/20/2019 9:27 PM [facility] Urine specimen (specimen) URINE SPECIMEN / Unknown Non-Phlebotomy Collection / Unknown 11/20/2019 9:08 PM PUBLICIST 11/20/2019 9:12 PM PUBLICIST us Eliu Méndez MD URINE ORDERABLES Final Re sult [facility] [address] [place] [address] * (ABNORMAL) CBC with Auto Differential (11/20/2019 8:14 PM PUBLICIST) WBC 9.76 4.00 - 12.00 10(3)/mcL 11/20/2019 8:35 PM PUBLICIST [facility] RBC 4.51 3.80 - 5.30 10(6)/mcL 11/20/2019 8:35 PM PUBLICIST [facility] HEMOGLOBIN (HGB) 12.0 12.0 - 15.8 g/dL 11/20/2019 8:35 PM PUBLICIST [facility] HEMATOCRIT (HCT) 38.3 36.0 - 47.0 % 11/20/2019 8:35 PM PUBLICIST [facility] MCV 84.9 82.0 - 96.0 fL 11/20/2019 8:35 PM [facility] MCH 26.6 26.0 - 34.0 pg 11/20/2019 8:35 PM [facility] MCHC 31.3 31.0 - 36.0 g/dL 11/20/2019 8:35 PM PUBLICIST [facility] PLATELET COUNT 317 140 - 440 10(3)/mcL 11/20/2019 8:35 PM PUBLICIST [facility] RDW 13.9 11.8 - 15.5 % 11/20/2019 8:35 PM [facility] MPV 10.2 9.7 - 12.4 fL 11/20/2019 8:35 PM [facility] NEUTROPHILS 75.6(H) 47.0 - 73.0 % 11/20/2019 8:35 PM [facility] LYMPHOCYTES 15.2(L) 18.0 - 42.0 % 11/20/2019 8:35 PM PUBLICIST [facility] MONOCYTES 6.3 4.0 - 12.0 % 11/20/2019 8:35 PM PUBLICIST [facility] EOSINOPHILS 2.5 0.0 - 5.0 % 11/20/2019 8:35 PM PUBLICIST [facility] BASOPHILS 0.4 0.0 - 1.0 % 11/20/2019 8:35 PM PUBLICIST [facility] ABSOLUTE NEUTROPHILS 7.39 1.60 - 7.70 10(3)/[facility] 11/20/2019 8:35 PM [facility] ABSOLUTE LYMPHOCYTES 1.48 1.30 - 3.20 10(3)/[facility] 11/20/2019 8:35 PM PUBLICIST [facility] ABSOLUTE MONOCYTES 0.61 0.20 - 1.00 10(3)/[facility] 11/20/2019 8:35 PM [facility] ABSOLUTE EOSINOPHIL 0.24 0.00 - 0.40 10(3)/[facility] 11/20/2019 8:35 PM [facility] ABSOLUTE BASOPHILS 0.04 0.00 - 0.10 10(3)/[facility] 11/20/2019 8:35 PM [facility] NRBC PER 100 WBC 0 11/20/19 20 8:35 PM [facility] Blood specimen (specimen) Venipuncture / Unknown 11/20/2019 8:14 PM PUBLICIST 11/20/2019 8:29 PM PUBLICIST us Eliu Méndez MD HEMATOLOGY ORDERABLES Fin al Result [facility] [address] [place] [address] * (ABNORMAL) Lipase (11/20/2019 8:14 PM PUBLICIST) LIPASE 10.1(L) 13 - 60 U/L 11/20/2019 9:09 PM PUBLICIST [facility] Blood specimen (specimen) Venipuncture / Unknown 11/20/2019 8:14 PM PUBLICIST 11/20/2019 8:29 PM PUBLICIST Eliu Méndez MD CHEMISTRY ORDERABLES Serene l Result [facility] [address] [place] [address] * (ABNORMAL) CMP (Comprehensive Metabolic Panel) (11/20/2019 8:14 PM PUBLICIST) SODIUM 137 136 - 144 mmol/L 11/20/2019 9:09 PM [facility] POTASSIUM 3.3(L) 3.5 - 5.1 mmol/L 11/20/2019 9:09 PM [facility] CHLORIDE 98(L) 100 - 110 mmol/L 11/20/2019 9:09 PM [facility] CO2, VENOUS 29 22 - 32 mmol/L 11/20/2019 9:09 PM [facility] ANION GAP 13.3 8.0 - 20.0 mmol/L 11/20/2019 9:09 PM [facility] GLUCOSE 98 70 - 99 mg/dL 11/20/2019 9:09 PM [facility] BUN 11 6 - 20 mg/dL 11/20/2019 9:09 PM [facility] CREATININE, BLOOD 0.54(L) 0.60 - 1.10 mg/dL 11/20/2019 9:09 PM [facility] BUN/CREATININE RATIO 20 12 - 20 ratio 11/20/2019 9:09 PM [facility] TOTAL PROTEIN 7.4 6.0 - 8.3 g/dL 11/20/2019 9:09 PM [facility] ALBUMIN 4.0 3.5 - 5.2 g/dL 11/20/2019 9:09 PM [facility] Comment: The colormetric methods used for the determination of Albumin may lead to falsely elevated test results in patients suffering from renal failure or insufficiency due to interference with other proteins. A/G RATIO 1.2 1.0 - 2.0 11/20/2019 9:09 PM PUBLICIST [facility] CALCIUM 8.9 8.9 - 10.3 mg/dL 11/20/2019 9:09 PM PUBLICIST [facility] T BILI 0.4 <=1.2 mg/dL 11/20/2019 9:09 PM PUBLICIST [facility] SGOT (AST) 24 <=32 U/L 11/20/2019 9:09 PM PUBLICIST [facility] SGPT (ALT) 26 <=33 U/L 11/20/2019 9:09 PM PUBLICIST [facility] ALKALINE PHOSPHATASE 86 35 - 105 U/L 11/20/2019 9:09 PM PUBLICIST [facility] GFR, EST. NONAFRICAN >60 >=60 11/20/2019 9:09 PM PUBLICIST [facility] GFR, EST. >60 >=60 020 9:09 PM PUBLICIST [facility] Comment: Creatinine Clearance is the preferred criteria for selecting drug dose adjustments in renally impaired patients. ??The GFR is provided as additional pertinent clinical information. GFR is reported in mL/min/1.73 sq m. Blood specimen (specimen) Venipuncture / Unknown 11/20/2019 8:14 PM PUBLICIST 11/20/2019 8:29 PM PUBLICIST Eliu Méndez MD CHEMISTRY ORDERABLES Serene alcantara Result [facility] [address] [place] [address] documented in this encounter Visit Diagnoses Diagnosis Urinary tract infection- Primary Urinary tract infection, site not specified documented in this encounter Administered Medications Inactive Administered Medications - up to 3 most recent administrations Medication Order MAR Action Action Date Dose Rate Site 0.9 % sodium chloride solution at 1,000 mL/hr, Intravenous, ONCE, 1 dose, On 11/20/19 at 2000 New Bag 11/20/2019 8:34 PM PUBLICIST 2,000 mL 1000 mL/h r ketorolac (TORADOL) injection 30 mg 30 mg, Intravenous, ONCE, 1 dose, On 11/20/19 at 1999 Given 11/20/2019 8:33 PM PUBLICIST 30 mg Prochlorperazine Edisylate (COMPAZINE) injection 10 mg 10 mg, Intravenous, ONCE, 1 dose, On 11/20/19 at 1999 Given 11/20/2019 8:33 PM PUBLICIST 10 mg documented in this encounter Active and Recently Administered Medications Times are shown in PUBLICIST. Scheduled Medication Order 11/18/2019 11/19/2019 11/20/2019 0.9 % sodium chloride solution (COMPLETED) at 1,000 mL/hr, Intravenous, ONCE, 1 dose, On 11/20/19 at 1999 2033 (New Bag - Prov ider: Tiffanie Mazariegos RN)[id number] (Stopped - Provider: Tiffanie Mazariegos RN) ketorolac (TORADOL) injection 30 mg (COMPLETED) 30 mg, Intravenous, ONCE, 1 dose, On 11/20/19 at 1999 2032 (Given - Provid er: Tiffanie Mazariegos RN) Prochlorperazine Edisylate (COMPAZINE) injection 10 mg (COMPLETED) 10 mg, Intravenous, ONCE, 1 dose, On 11/20/19 at 1999 2032 (Given - Provid er: Tiffanie Mazariegos RN) documented in this encounter Additional Health Concerns Assessment Noted Time PHQ-9 Depression Total Score: 0 10/19/19 20 12:31 PM PUBLICIST documented as of this encounter Care Teams Research Phlebotomist Relationship Specialty Start Date End Date John Méndez MD PCP - General Family Medicine 09/28/19 04/26/24 documented as of this encounter
--- OUTSIDE RECORDS SUMMARY | 2024-10-20 04:00 | XMS_ITS | Referral Summary ---
Author Organization [facility] Address [address] [place] [address] Care Team Providers Care Home Help Aide Name Role Phone Dakota Fabian NP Primary Care Provider Encounters Date Type Department Care Team Description 10/16/2024 3:45 PM SOLVENT STATION ATTENDANT Office Visit [facility] at [address] [address] Va Garces, ANOOP Strep pharyngitis (Primary Dx); Cough, unspecified type 10/02/2024 12:27 PM SOLVENT STATION ATTENDANT - 10/02/2024 1:15 PM SOLVENT STATION ATTENDANT Emergency [facility] Emergency Department [address] [place] [address] Acute conjunctivitis of right eye, unspecified acute conjunctivitis type (Primary Dx) Discharge Disposition: Discharge to home or self care 08/14/2024 6:15 PM CDT Office Visit [facility] at [address] [address] Thelma Covarrubias, ANOOP Strep pharyngitis (Primary Dx) from Last 3 Months Allergies Active Allergy Reactions Criticality Noted Date Comments Amoxicillin Rash Medium 07/09/2017 Other Rash Medium 09/06/2018 all cillins Penicillins Rash 07/09/2017 Reaction: Rash, , Medications cetirizine (ZyrTEC) 10 mg tablet TAKE 1 TABLET BY MOUTH EVERY DAY FOR COUGH/RUNNY NOSE 2 04/09/20 17 Active sertraline (ZOLOFT) 100 mg tablet TAKE 1.5 TABLETS BY MOUTH DAILY 0 05/13/20 17 Active amLODIPine (NORVASC) 10 mg tablet Take 1 tablet (10 mg total) by mouth daily 2 08/26/20 18 Active HYDROcodone-acetam inophen (NORCO) 5-325 mg per tabletIndications: Pain Take 1-2 tablets by mouth every 4 (four) hours as needed for other (Cough). Do not exceed 8 tablets/day. 12 tablet 09/06/20 18 Active Additional Information Patient not taking.Reported on 10/16/2024 traMADol (ULTRAM) 50 mg tablet Take 1 tablet (50 mg total) by mouth every 6 (six) hours. Take as directed for pain not relieved by meloxicam or Tylenol with codeine alone 20 tablet 11/04/19 19 Active Additional Information Patient not taking.Reported on 10/16/2024 cyclobenzaprine (FLEXERIL) 10 mg tabletIndications: Muscle Spasm Take 0.5 tablets (5 mg total) by mouth 3 (three) times a day as needed for muscle spasms 12 tablet 06/27/20 19 Active Additional Information Patient not taking.Reported on 10/16/2024 omeprazole (PriLOSEC) 20 mg capsuleIndications :Treatment of Non-Bleeding Gastric Disorder Take 1 capsule (20 mg total) by mouth daily 30 capsule 04/22/20 24 025 Active Additional Information Patient not taking.Reported on 10/16/2024 naproxen (NAPROSYN) 500 mg tablet Take 1 tablet (500 mg total) by mouth 2 (two) times a day with meals 30 tablet 05/13/20 24 Active Additional Information Patient not taking.Reported on 10/16/2024 methocarbamoL (ROBAXIN) 500 mg tablet Take 1 tablet (500 mg total) by mouth 2 (two) times a day 20 tablet 05/13/20 24 Active Additional Information Patient not taking.Reported on 10/16/2024 FLUoxetine (PROzac) 40 mg capsule TAKE 1 CAPSULE BY MOUTH ONCE DAILY IN THE MORNING 08/09/20 24 Active montelukast (SINGULAIR) 10 mg tablet Take 1 tablet (10 mg total) by mouth daily 06/04/20 24 Active tiZANidine (ZANAFLEX) 4 mg tablet Take 1 tablet (4 mg total) by mouth Active traZODone (DESYREL) 50 mg tablet 06/25/20 24 Active losartan (COZAAR) 50 mg tablet Take 1 tablet (50 mg total) by mouth daily 06/04/20 24 Active azithromycin (ZITHROMAX) 250 mg tabletIndications: Strep pharyngitis Take 2 tablets the first day, then 1 tablet daily for 4 days. 6 tablet 08/14/20 24 Active Additional Information Patient not taking.Reported on 10/16/2024 cephalexin (KEFLEX) 500 mg capsuleIndications :Strep pharyngitis Take 1 capsule (500 mg total) by mouth 2 (two) times a day 20 capsule 10/16/19 25 Active neomycin-polymyxin -dexAMETHasone (MAXITROL) 3.5mg/mL-10,000 unit/mL-0.1 % ophthalmic suspensionIndicati ons:Acute conjunctivitis of right eye, unspecified acute conjunctivitis type Administer 1 drop into the right eye 4 (four) times a day for 7 days Instill 1 drop in right eye q.i.d. for 7 days. Collaborating physician Kenn Torres MD 5 mL 1 10/02/20 24 024 Active Problems Problem Noted Date Diagnosed Date Acute conjunctivitis of right eye 10/02/2024 B12 deficiency 05/11/2024 Folic acid deficiency 05/11/2024 Anxiety 09/28/2019 Chronic sinusitis 09/28/2019 Degenerative lumbar disc 09/28/2019 Depression 09/28/2019 Gastroesophageal reflux disease 09/28/2019 History of methicillin resis tant Staphylococcus aureus infection 09/28/2019 Hyperlipidemia 09/28/2019 Hypertensive disorder 09/28/2019 Cervicalgia 05/11/2019 Sacroiliac joint dysfunction of both sides 05/11 Sprain of left knee, initial encounter 9 Periodic limb movement disorder 01/17/2014 Overview (01/15/2017): Periodic limb movement disorder Restless legs syndrome 01/17/2014 Overview (01/16/2017): Restless leg syndrome Hypersomnia 01/17/2014 Overview (01/16/2017): Hypersomnia Adiposity 01/17/2014 Overview (01/16/2017): Obesity Obstructive sleep apnea syndrome 01/17/2014 Overview (01/16/2017): Obstructive sleep apnea syndrome Social History Tobacco Use Types Packs/Day Years Used Date Smoking Tobacco: Never Smokeless Tobacco: Never Alcohol Use Standard Drinks/Week Comments No 0 (1 standard drink = 0.6 oz pur e alcohol) Personal Safety Answer Date Recorded Have you ever been in or are you currently in a harmful physical or emotional relationship or is someone making you feel afraid or unsafe? Denies 10/02/2024 Comments No Sex and Gender Information Value Date Recorded Sex Assigned at Not on file Legal Sex Female 2:14 AM SOLVENT STATION ATTENDANT Gender Identity Not on file Sexual Orientation Not on file Last Filed Vital Signs Vital Sign Reading Time Taken Comments Blood Pressure 142/84 10/16/2024 3:24 PM SOLVENT STATION ATTENDANT Pulse 72 10/16/2024 3:24 PM SOLVENT STATION ATTENDANT Temperature 36.8 ??C (98.2 ??F) 10/16/2024 3:24 PM CS T Respiratory Rate 18 10/16/2024 3:24 PM SOLVENT STATION ATTENDANT Oxygen Saturation 97% 10/16/2024 3:24 PM SOLVENT STATION ATTENDANT Inhaled Oxygen Concentration - - Weight 98.3 kg (216 lb 11.2 oz) 10/16/2024 3:24 PM SOLVENT STATION ATTENDANT Height 157.5 cm (5' 2 ) 08/14/2024 6:04 PM CDT Body Mass Index 39.63 08/14/2024 6:04 PM CDT Plan of Treatment Not on file Procedures Procedure Name Priority Date/Time Associated Diagnosis Comments POC INFLUENZA A/B, COVID-19 ANTIGEN Routine 10/16/2024 3:55 PM SOLVENT STATION ATTENDANT Cough, unspecified type POCT RAPID STREP Routine 10/16/2024 3:44 PM SOLVENT STATION ATTENDANT Cough, unspecified type POCT RAPID STREP Routine 08/14/2024 6:15 PM CDT Strep pharyngitis from Last 3 Months Results * POC Influenza A/B, COVID-19 antigen (10/16/2024 3:55 PM SOLVENT STATION ATTENDANT) Pathologist [facility] Influenza A Ag, POC Negative Negative [facility] Influenza B Ag, POC Negative Negative [facility] COVID-19 Ag POC Presumptive Negative Presumptive Negative, Invalid [facility] Nasal 10/16/2024 3:55 PM SOLVENT STATION ATTENDANT Va Garces TUBE BLOWER POINT OF CARE TEST OR DERABLES Final Result [facility] [address] [address] * (ABNORMAL) POCT rapid strep A (10/16/2024 3:44 PM SOLVENT STATION ATTENDANT) Pathologist [facility] Rapid Strep A, POC Positive(A ) Negative Swab 10/16/2024 3:44 PM SOLVENT STATION ATTENDANT Va Garces TUBE BLOWER POINT OF CARE TEST OR DERABLES Final Result * (ABNORMAL) POCT rapid strep A (08/14/2024 6:15 PM CDT) Pathologist [facility] Rapid Strep A, POC Positive(A ) Negative Swab 08/14/2024 6:15 PM CDT Thelma Covarrubias TUBE BLOWER POINT OF CARE TEST ORDER LATRICE Final Result from Last 3 Months Insurance [facility] Care Teams Home Help Aide Relationship Specialty Start Date End Date Dakota Fabian NP [address] [facility] [address] [address] PCP - General Nurse Practitioner 10/02/24
--- OUTSIDE RECORDS SUMMARY | 2024-10-20 04:00 | XMS_ITS | Encounter Summary ---
Author Organization [facility] Healthcare Address [address] [place] [address] Care Team Providers Care Composite Boat Builder Name Role Phone John Méndez MD Primary Care Provider [phone] Reason for Visit * Reason Comments Sore Throat Encounter Details Date Type Department Care Team (Late st Contact Info) Description 11/11/2019 8:13 AM BARREL BANDER - 11/11/2019 8:36 AM BARREL BANDER Emergency [facility] Emergency Department [address] [place] [address] Acute pharyngitis, unspecified etiology (Primary Dx) Discharge Disposition: Discharge to home or self care Social History Tobacco Use Types Packs/Day Years Used Date Smoking Tobacco: Never Smokeless Tobacco: Never Alcohol Use Standard Drinks/Week Comments No 0 (1 standard drink = 0.6 oz pur e alcohol) Comments No Sex and Gender Information Value Date Recorded Sex Assigned at Not on file Legal Sex Female 2:14 AM BARREL BANDER Gender Identity Not on file Sexual Orientation Not on file documented as of this encounter Last Filed Vital Signs Vital Sign Reading Time Taken Comments Blood Pressure 157/102 11/11/2019 8:22 AM BARREL BANDER Pulse 78 11/11/2019 8:22 AM BARREL BANDER Temperature 36.6 ??C (97.8 ??F) 11/11/2019 8:22 AM CS T Respiratory Rate 20 11/11/2019 8:22 AM BARREL BANDER Oxygen Saturation 100% 11/11/2019 8:22 AM BARREL BANDER Inhaled Oxygen Concentration - - Weight 90.7 kg (200 lb) 11/11/2019 8:22 AM BARREL BANDER Height 157.5 cm (5' 2 ) 11/11/2019 8:22 AM BARREL BANDER Body Mass Index 36.58 11/11/2019 8:22 AM BARREL BANDER documented in this encounter Discharge Diagnoses Diagnosis Acute pharyngitis, unspecified - ACUTE PHARYNGITIS, UNSPECIFIED Essential (primary) hypertension - ESSENTIAL (PRIMARY) HYPERTENSION Unspecified essential hypertension Other termite technician (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 therapy - OTHER [facility] (CURRENT) DRUG THERAPY documented in this encounter Discharge Instructions * Attachments The following attachments cannot be sent through Care Everywhere. * Pharyngitis (Discharge Care) (Fijian) documented in this encounter Medications at Time of Discharge amLODIPine (NORVASC) 10 mg tablet Take 1 tablet (10 mg total) by mouth daily 2 08/26/2018 cetirizine (ZyrTEC) 10 mg tablet TAKE 1 TABLET BY MOUTH EVERY DAY FOR COUGH/RUNNY NOSE 2 2017 cyclobenzaprine (FLEXERIL) 10 mg tabletIndication s:Muscle Spasm Take 0.5 tablets (5 mg total) by mouth 3 (three) times a day as needed for muscle spasms 12 tablet 06/27/2019 HYDROcodone-acet aminophen (NORCO) 5-325 mg per tabletIndication s:Pain Take 1-2 tablets by mouth every 4 (four) hours as needed for other (Cough). Do not exceed 8 tablets/day. 12 tablet 09/06/2018 sertraline (ZOLOFT) 100 mg tablet TAKE 1.5 TABLETS BY MOUTH DAILY 0 05/13/2017 traMADol (ULTRAM) 50 mg tablet Take 1 tablet (50 mg total) by mouth every 6 (six) hours. Take as directed for pain not relieved by meloxicam or Tylenol with codeine alone 20 tablet 11/04/2018 azithromycin (Zithromax Z-Carlo) 250 mg tablet Take 1 tablet (250 mg total) by mouth daily Take first 2 tablets together, then 1 every day until finished. 6 tablet 11/11/2019 4 losartan (COZAAR) 25 mg tablet take 1 tablet by oral route every day 0 0 05/02/2014 4 documented as of this encounter Ordered Prescriptions Prescription Sig Dispense Quantity Refills Last Filled Start Date End Date azithromycin (Zithromax Z-Carlo) 250 mg tablet Take 1 tablet (250 mg total) by mouth daily Take first 2 tablets together, then 1 every day until finished. 6 tablet 11/11/2019 4 documented in this encounter Discharge Disposition Disposition Code Departure Means Destination Discharge to home or self care documented in this encounter ED Notes * Ashly Perez, SMALL ARMS REPAIRER - 11/11/2019 8:24 AM CST HPI Chief Complaint Patient presents with ??? Sore Throat 44-year-old female with history of hypertension, presents to ED with complaints of sore throat, drycough, congestion, and ear fullness times 3-4 days. Patient states all of her kids have been diagnosed with strep throat this month. Patient states she has been running a fever of 101-102 F which hasbeen treated with ibuprofen at home. Patient denies any chest pain, shortness of breath, headache, dizziness, vomiting, or diarrhea. Patient has been taking [id number] medications including Tessalon Perles without relief. Patient does report not taking her high blood pressure medicine this morning yet. Patient History Patient Active Problem List Diagnosis Date Noted ??? Sprain of left knee, initial encounter 11/04/2018 ??? Periodic limb movement disorder 01/17/2014 Class: Chronic ??? Restless legs syndrome 01/17/2014 Class: Chronic ??? Hypersomnia 01/17/2014 Class: Chronic ??? Adiposity 01/17/2014 Class: Chronic ??? Obstructive sleep apnea syndrome 01/17/2014 Class: Chronic Past Medical History: Diagnosis Date ??? HX OTHER MEDICAL Headache, migraine ??? Hypertension Hypertension ??? Tension headache Headache, tension Past Surgical History: Procedure Laterality Date ??? HYSTERECTOMY 2011 Hysterectomy ??? HYSTERECTOMY Hysterectomy Family History Problem Relation Age of Onset ??? Hypertension Other Family history of Hypertension; ??? Diabetes Father Diabetes mellitus; ??? Hypertension Father Hypertension; ??? Hypertension Mother Hypertension; ??? Migraines Mother Migraine; ??? Migraines Other Family history of Migraine; Social History Tobacco Use ??? Smoking status: Never Smoker ??? Smokeless tobacco: Never Used Substance Use Topics ??? Alcohol use: No ??? Drug use: No Social History Patient does not qualify to have social determinant information on file (likely too young). Social History Narrative ??? Not on file Review of Systems Review of Systems Constitutional: Positive for fever. HENT: Positive for congestion, hearing loss, postnasal drip, rhinorrhea and sore throat. Negative for ear pain and trouble swallowing. Respiratory: Positive for cough. Negative for shortness of breath. Cardiovascular: Negative. Negative for chest pain. Gastrointestinal: Negative. Genitourinary: Negative. Musculoskeletal: Negative. Neurological: Negative. Negative for dizziness and headaches. All other systems reviewed and are negative. Physical Exam ED Triage Vitals [11/11/19 0822] Temp Pulse Resp BP SpO2 36.6 ??C (97.8 ??F) 78 20 (!) 157/102 100 % Temp src Heart Rate Source Patient Position BP Location FiO2 (%) Temporal -- -- -- -- Physical Exam Vitals signs and nursing note reviewed. Constitutional: General: She is not in acute distress. Appearance: She is well-developed. She is not ill-appearing, toxic-appearing or diaphoretic. HENT: Head: Normocephalic and atraumatic. Right Ear: Tympanic membrane and ear canal normal. Left Ear: Tympanic membrane and ear canal normal. Nose: Congestion present. Mouth/Throat: Mouth: Mucous membranes are dry. Pharynx: Oropharynx is clear. No oropharyngeal exudate. Tonsils: Swellin on the right. 0 on the left. Eyes: Conjunctiva/sclera: Conjunctivae normal. Neck: Musculoskeletal: Normal range of motion. Cardiovascular: Rate and Rhythm: Normal rate. Heart sounds: Normal heart sounds. Pulmonary: Effort: Pulmonary effort is normal. No respiratory distress. Breath sounds: Normal breath sounds. No wheezing. Abdominal: General: There is no distension. Palpations: Abdomen is soft. Tenderness: There is no tenderness. Lymphadenopathy: Cervical: No cervical adenopathy. Skin: General: Skin is warm and dry. Capillary Refill: Capillary refill takes less than 2 seconds. Neurological: General: No focal deficit present. Mental Status: She is alert and oriented to person, place, and time. Psychiatric: Mood and Affect: Mood normal. Behavior: Behavior normal. MDM MDM Number of Diagnoses or Management Options Acute pharyngitis, unspecified etiology: minor Risk of Complications, Morbidity, and/or Mortality Presenting problems: minimal Diagnostic procedures: minimal Management options: low General comments: Pt treated with Abx due to exposure to strep throat and subjective symptoms. Patient Progress Patient progress: stable ED Course as of Nov 11 834 Time: 11/11 833 Comment: Patient states she will take her blood pressure medicine as soon as she gets home from here. Patient courage to use her inhaler at home to help with her cough. By: Ashly Perez NP Acute pharyngitis, unspecified etiology Ashly Perez NP 11/11/19834 Cosigned by Diego Fitzpatrick MD at 11/11/2019 2:49 PM BARREL BANDER EL BANDER EL BANDER Associated attestation - Diego Fitzpatrick MD - 11/11/2019 2:49 PM BARREL BANDER ED Attestation Based on the medical record the care appears appropriate. * Ivis Smith RN - 11/11/2019 8:16 AM CST 44 yr old female presents to the ED with C/O sore throat. Pt tells picker that 3/3 of her children have had strep recently and she has been having similar symptoms as them however her PCP can't get her in until next week. Pt awake and alert upon arrival. EL BANDER documented in this encounter Plan of Treatment Not on file documented as of this encounter Visit Diagnoses Diagnosis Acute pharyngitis, unspecified etiology- Primary documented in this encounter Discontinued Medications Medication Sig Discontinue Reason Start Date End Da te azithromycin (ZITHROMAX) 250 mg tablet Take 2 tablets the first day, then 1 tablet daily for 4 days 09/06/2018 11/11/2019 azithromycin (ZITHROMAX) 250 mg tablet Take 2 tablets the first day, then 1 tablet daily for 4 days 09/06/2018 11/11/2019 documented as of this encounter Care Teams Composite Boat Builder Relationship Specialty Start Date End Date John Méndez MD PCP - General 11/11/19 10/01/24 documented as of this encounter
--- OUTSIDE RECORDS SUMMARY | 2024-10-20 04:00 | XMS_ITS | Encounter Summary ---
Author Organization [facility] Healthcare Address [address] [place] [address] Care Team Providers Care Severity Of Illness Coordinator Name Role Phone John Méndez MD Primary Care Provider [phone] Reason for Visit * Reason Comments URI Fatigue, ear pain, p ostnasal drip, nasal discharge, sinus pressure, dry cough, sore throat x 3 days. Encounter Details Date Type Department Care Team (Late st Contact Info) Description 08/14/2024 6:15 PM CDT Office Visit [facility] at [address] [place] [address] Thelma Covarrubias, ANOOP [address] [phone] Strep pharyngitis (Primary Dx) Social History Tobacco Use Types [...] making you feel afraid or unsafe? 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 Gender Identity Not on file Sexual Orientation Not on file documented as of this encounter Last Filed Vital Signs Vital Sign Reading Time Taken Comments Blood Pressure 124/90 08/14/2024 6:04 PM CDT Pulse 74 08/14/2024 6:04 PM CDT Temperature 36.8 ??C (98.3 ??F) 08/14/2024 6:04 PM CD T Respiratory Rate 18 08/14/2024 6:04 PM CDT Oxygen Saturation 98% 08/14/2024 6:04 PM CDT Inhaled Oxygen Concentration - - Weight 90.7 kg (200 lb) 08/14/2024 6:04 PM CDT Height 157.5 cm (5' 2 ) 08/14/2024 6:04 PM CDT Body Mass Index 36.58 08/14/2024 6:04 PM CDT documented in this encounter Patient Instructions * Patient Instructions* Thelma Covarrubias NP - 08/14/2024 6:15 PM CDT The rapid strep test performed at the [facility] was positive. The following is recommended treatment for Strep pharyngitis (strep throat) Complete antibiotic as prescribed Take Tylenol or Motrin for fever/pain Gargle with warm salt water (1tsp salt/1 cup water) or warm tea with honey and lemon to soothe pain Suck on ice chips, popsicles, cough drops, or throat lozenges You may return to work, daycare, or school 24 hours after starting antibiotics and you are fever free without use of Tylenol or Motrin. Strep pharyngitis is contagious. Do not share food, drinks, or utensils Replace your toothbrush within 48 hours after starting antibiotics. If signs/symptoms do not improve or worsen, follow up with your PCP. documented in this encounter Ordered Prescriptions Prescription Sig Dispense Quantity Refills Last Filled Start Date End Date azithromycin (ZITHROMAX) 250 mg tabletIndications: Strep pharyngitis Take 2 tablets the first day, then 1 tablet daily for 4 days. 6 tablet 08/14/2024 documented in this encounter Progress Notes * Thelma Covarrubias NP - 08/14/2024 6:15 PM CDT Images from the original note were not included. Patient ID: Melinda Olmedo is a 49 y.o. female followed by John Méndez MD Chief Complaint Patient presents with URI Fatigue, ear pain, postnasal drip, nasal discharge, sinus pressure, dry cough, sore throat x 3 days. Presents to [facility] with generalized fatigue, bilateral ear pain, postnasal drainage, runnynose, sinus pressure, nonproductive cough, and sore throat, onset 3 days ago. Denies known fever, shortness of breath, or N/V/D. Review of Systems All systems reviewed and are negative or non contributory for this patient's presentation today other than as stated in the HPI. Vitals: 08/14/24 1804 BP: 124/90 Pulse: 74 Resp: 18 Temp: 36.8 ??C (98.3 ??F) TempSrc: Oral SpO2: 98% Weight: 90.7 kg (200 lb) Height: 157.5 cm (5' 2 ) Recent Results (from the past 24 hour(s)) POCT rapid strep A Collection Time: 08/14/24 6:15 PM Result Value Ref Range Rapid Strep A, POC Positive (A) Negative Physical Exam Vitals reviewed. Constitutional: Appearance: She is well-developed. HENT: Right Ear: Tympanic membrane and external ear normal. Tympanic membrane is not injected, erythematous or bulging. Left Ear: Tympanic membrane and external ear normal. Tympanic membrane is not injected, erythematous or bulging. Nose: Right Sinus: No maxillary sinus tenderness or frontal sinus tenderness. Left Sinus: No maxillary sinus tenderness or frontal sinus tenderness. Mouth/Throat: Lips: [place]. Mouth: Mucous membranes are moist. Pharynx: Posterior oropharyngeal erythema present. Tonsils: No tonsillar exudate. Eyes: Conjunctiva/sclera: Conjunctivae normal. Cardiovascular: Rate and Rhythm: Normal rate and regular rhythm. Pulmonary: Effort: Pulmonary effort is normal. Breath sounds: Normal breath sounds. No wheezing or rhonchi. Musculoskeletal: General: Normal range of motion. Skin: General: Skin is warm and dry. Neurological: Mental Status: She is alert and oriented to person, place, and time. Diagnoses and all orders for this visit: Strep pharyngitis (Primary) - POCT rapid strep A - azithromycin (ZITHROMAX) 250 mg tablet; Take 2 tablets the first day, then 1 tablet daily for 4 days. Orders Placed This Encounter Procedures POCT rapid strep A Assessment/Plan Lungs CTA, O2 Saturation @98%/RA, low suspicion for pneumonia at this time. Will recommend supportive care for symptoms with f/u precautions including signs/symptoms warranting ER evaluation. Discussed home self-care, follow up needs, and signs and symptoms that warrant immediate medical attention/ER evaluation including worsening fever, increased shortness of breath, severe N/V/D, or anyother worrisome symptoms Discussed symptomatic relief of symptoms Patient Education The rapid strep test performed at the [facility] today was positive. The following is recommended treatment for Strep pharyngitis (strep throat) Complete antibiotic as prescribed Take Tylenol or Motrin for fever/pain Gargle with warm salt water (1tsp salt/1 cup water) or warm tea with honey and lemon to soothe pain Suck on ice chips, popsicles, cough drops, or throat lozenges You may return to work, daycare, or school 24 hours after starting antibiotics and you are fever free without use of Tylenol or Motrin. Strep pharyngitis is contagious. Do not share food, drinks, or utensils Replace your toothbrush within 48 hours after starting antibiotics. If signs/symptoms do not improve or worsen, follow up with your PCP. documented in this encounter Plan of Treatment Not on file documented as of this encounter Procedures Procedure Name Priority Date/Time Associated Diagnosis Comments POCT RAPID STREP Routine 08/14/2024 6:15 PM CDT Strep pharyngitis documented in this encounter Results * (ABNORMAL) POCT rapid strep A (08/14/2024 6:15 PM CDT) Rapid Strep A, POC Positive(A ) Negative Swab 08/14/2024 6:15 PM CDT Thelma Covarrubias NP POINT OF CARE TEST ORDER LATRICE Final Result documented in this encounter Visit Diagnoses Diagnosis Strep pharyngitis- Primary documented in this encounter Discontinued Medications Medication Sig Discontinue Reason Start Date End Da te losartan (COZAAR) 25 mg tablet take 1 tablet by oral route every day 05/02/2014 08/14/2024 azithromycin (Zithromax Z-Carlo) 250 mg tablet Take 1 tablet (250 mg total) by mouth daily Take first 2 tablets together, then 1 every day until finished. 11/11/2019 08/14/2024 documented as of this encounter Historical Medications * This list may reflect changes made after this encounter. losartan (COZAAR) 50 mg tablet Take 1 tablet (50 mg total) by mouth daily 06/04/2024 traZODone (DESYREL) 50 mg tablet 06/25/2024 tiZANidine (ZANAFLEX) 4 mg tablet Take 1 tablet (4 mg total) by mouth montelukast (SINGULAIR) 10 mg tablet Take 1 tablet (10 mg total) by mouth daily 06/04/2024 FLUoxetine (PROzac) 40 mg capsule TAKE 1 CAPSULE BY MOUTH ONCE DAILY IN THE MORNING 08/09/2024 added in this encounter Care Teams Severity Of Illness Coordinator Relationship Specialty Start Date End Date John Méndez MD PCP - General 11/11/19 10/01/24 documented as of this encounter
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
--- OUTSIDE RECORDS SUMMARY | 2024-10-20 04:00 | XMS_ITS | Encounter Summary ---
Author Organization [facility] Healthcare Address [address] [place] [address] Care Team Providers Care Event Specialist Food Demonstrator Name Role Phone John Méndez MD Primary Care Provider Reason for Visit * Reason Comments Congestion Earache Encounter Details Date Type Department Care Team (Late st Contact Info) Description 01/28/2024 7:42 AM CDT - 01/28/2024 8:31 AM CDT Emergency [facility] Emergency Department [address] [place] [address] Jaret Whitfield MD [address] [place] [address] Left otitis media, unspecified otitis media type (Primary Dx) Discharge Disposition: Discharge to [...] making you feel afraid or unsafe? 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 Gender Identity Not on file Sexual Orientation Not on file documented as of this encounter Last Filed Vital Signs Vital Sign Reading Time Taken Comments Blood Pressure 145/88 01/28/2024 8:30 AM CDT Pulse 100 01/28/2024 8:30 AM CDT Temperature 36.8 ??C (98.3 ??F) 01/28/2024 7:46 AM CD T Respiratory Rate 18 01/28/2024 8:30 AM CDT Oxygen Saturation 100% 01/28/2024 8:30 AM CDT Inhaled Oxygen Concentration - - Weight 90.7 kg (200 lb) 01/28/2024 7:46 AM CDT Height - - Body Mass Index 36.58 11/11/2019 8:22 AM PEARL MAKER documented in this encounter Discharge Instructions * Discharge Instructions* Jaret Whitfield MD - 01/28/2024 7:57 AM CDT Thank you for visiting [facility] Emergency Department. As we have discussed, there are a few important parts to continuing your care. Please see attachments for further info. Please make sure to follow up with your primary care physician for continued evaluation and management. The contact information for your primary doctor and a specialist, if one was referred to you, can be foundin the follow up section of your discharge summary. Importantly, please do not hesitate to return to the Emergency Department if symptoms worsen, fail to improve, or you begin to experience new fever, chills, nausea, vomiting, chest pain, shortness of breath, abdominal pain, focal weakness, numbness, slurred speech, any other focal neurologic deficit, or any other new or worsening symptom. Pleasefollow up with your regular doctor in 1-2 days if not improving. * Attachments The following attachments cannot be sent through Care Everywhere. * Otitis Media, Antibiotic Treatment (Adult) (British) documented in this encounter Medications at Time [...] Tylenol with codeine alone 20 tablet 11/04/2018 cefdinir (OMNICEF) 300 mg capsule Take 1 capsule (300 mg total) by mouth 2 (two) times a day for 7 days 14 capsule 01/28/2024 4 azithromycin (Zithromax Z-Carlo) 250 mg tablet Take 1 tablet (250 mg total) by mouth daily Take first 2 tablets together, then 1 every day until finished. 6 tablet 11/11/2019 4 ibuprofen (ADVIL,MOTRIN) 800 mg tablet Take 1 tablet (800 mg total) by mouth 3 (three) times a day 21 tablet 12/18/2020 4 losartan (COZAAR) 25 mg tablet take 1 tablet by oral route every day 0 0 05/02/2014 4 documented as of this encounter Ordered Prescriptions Prescription Sig Dispense Quantity Refills Last Filled Start Date End Date cefdinir (OMNICEF) 300 mg capsule Take 1 capsule (300 mg total) by mouth 2 (two) times a day for 7 days 14 capsule 01/28/2024 4 documented in this encounter Discharge Disposition Disposition Code Departure Means Destination Comment s Discharge to home or self care documented in this encounter ED Notes * Jaret Whitfield MD - 01/28/2024 7:54 AM CDT HPI Chief Complaint Patient presents with Congestion Earache HPI Patient History: The patient is a 48 y.o. female who presents with chief complaint of congestion, rhinorrhea, sinus pressure and feels like she has a sinus infection over the past 1-1/2 weeks, she also notes some left ear pain that started today, denies any nausea, vomiting or diarrhea. Notes that her kids are sickat home. She has had a cough for the last week as well. Notes that she has been prone to ear infections in the past. No fevers Patient Active Problem List Diagnosis Date Noted Sprain of left knee, initial encounter 11/04/2018 Periodic limb movement disorder 01/17/2014 Restless legs syndrome 01/17/2014 Hypersomnia 01/17/2014 Adiposity 01/17/2014 Obstructive sleep apnea syndrome 01/17/2014 Past Medical History: Diagnosis Date HX OTHER MEDICAL Headache, migraine Hypertension Hypertension Tension headache Headache, tension Past Surgical History: Procedure Laterality Date HYSTERECTOMY 2010 Hysterectomy HYSTERECTOMY Hysterectomy Family History Problem Relation [...] file Review of Systems Review of Systems All other systems reviewed and are negative. Physical Exam ED Triage Vitals [01/28/24 0746] Temp Pulse Resp BP SpO2 36.8 ??C (98.3 ??F) 95 16 -- 100 % Temp src Heart Rate Source Patient Position BP Location FiO2 (%) Temporal -- -- -- -- Height Height Method Weight Weight Method -- -- 90.7 kg (200 lb) Estimated Physical Exam Vitals reviewed. Nursing notes reviewed. General: alert, normal appearance, no acute distress. Patient is not ill- appearing or toxic-appearing Skin: warm, dry; Capillary refill less than 2 seconds. Head: no trauma, normocephalic. Neck: trachea midline, supple Eye: normal conjunctiva, EOMI, PERRLA ENMT: nose normal, oral mucosa moist, posterior pharynx is unremarkable, no erythema, no tonsillar enlargement; left ear with blunting of the tympanic membrane, there is some erythema noted, no drainage; right ear is normal, no mastoid tenderness Cardiovascular: regular rate and regular rhythm, normal peripheral perfusion; good palpable pulses in all extremities Respiratory: lungs CTABL, respirations non labored, breath sounds equal, no wheezing or stridor Chest wall: no deformity Back: normal alignment Musculoskeletal: Normal ROM, no tenderness, no lower extremity edema Neurological: Alert and oriented x 4, LOC appropriate for age, CN II-XII intact, motor strength equal & normal bilaterally in all extremities, sensation equal & normal bilaterally in all extremities, speech normal, no focal neurologic deficits. Psychiatric: cooperative, affect appropriate for age MDM Medical Decision Making Please refer to medically appropriate history and exam required to communicate complexity of problems, MDM, and future medical/legal needs. The patient presents with an acute illness that poses a threat to life or bodily function that may require escalation in level of care. Today's complaint was acute and moderately severe or severe and required the intensive service of the emergency department. Systemic symptoms as noted above. The patient has chronic illnesses that impacted care today as noted above. Patient's ED management and disposition as noted in the ED course If available, I reviewed available external notes in the form of patient's previous medical recordsfrom inpatient hospitalizations, other ER visits, EMS run sheets, and external clinic notes if available to me in the emergency department. Any available family or EMS transfer personnel were interviewed as independent historians. We did independently interpret laboratory studies, imaging, and EKGsif performed as noted in the MDM. Prescription/Parenteral controlled substances and/or high risk medications administered are noted in the MDM. Any medications prescribed are noted in the MDM. Socialdeterminants of health that impacted or limited the diagnosis and treatment include limited access to medical care and knowledge deficit about the patient's illness or injury. Any procedures or plansfor surgery if necessary are noted in the MDM. I considered other testing and lab workup and performed necessary and available lab testing and imaging tests to evaluate for life threatening emergencies in the emergency department, and lab testing and imaging studies that were necessary and available to me to evaluate the patient's complaints in the emergency department were performed. My independent interpretations of studies performed in the ED are noted in the MDM. Differential diagnosis is broad and includes but not limited to viral syndrome, otitis media, otitis externa, mastoiditis, viral syndrome, sinusitis Patient with evidence of otitis media on exam, favor likely viral syndrome and allergies contributing as well, recommend using Sudafed and ongoing [id number] medications to help with symptom control, due to the ear infection we will treat with antibiotics. She does have a history of penicillin allergy and reported rash, we will treat with cephalosporins. Follow up with PCP for re-evaluation. Symptomatic management otherwise discussed and stable for discharge home Patient has been evaluated and medically cleared in the emergency department at this time. The importance of close outpatient follow-up was discussed and return precautions were given to the patient.Encouraged the patient to follow up with their primary care physician and/or specialist as noted inthe discharge paperwork. Patient was encouraged to return to the emergency department for any worsening of presenting symptoms, failure to improve, or development of new symptoms including but not limited to fevers, chills, nausea, vomiting, chest pain, shortness of breath, abdominal pain, focal weakness, numbness, slurred speech, any other focal neurologic deficit, or any other new or worsening s ymptom. Detailed follow-up and return precautions related to the patient's presenting complaint were reviewed with the patient and all questions were answered prior to discharge. Patient's vitals reviewed prior to discharge and are stable. Patient does not currently have any acute, life-threatening disease process that would require further workup in the emergency department or admission to the hospital at this time. However it was discussed with the patient that if their symptoms change or worsen or they develop any new symptoms that they should return to the emergency department immediately for re-evaluation. Final diagnoses: Left otitis media, unspecified otitis media type Jaret Whitfield MD 01/28/24 0757 * Asia Merlos RN - 01/28/2024 7:44 AM CDT Pt arrives ambulatory to ed from home. Pt states nasal congestion and L ear pain x1.5 week. Pt states drainage from ear as well. Pt states cough has lasted a week as well. No N/V/D. No fevers. documented in this encounter Plan of Treatment Not on file documented as of this encounter Visit Diagnoses Diagnosis Left otitis media, unspecified otitis media type- Primary documented in this encounter Care Teams Event Specialist Food Demonstrator Relationship Specialty Start Date End Date John Méndez MD PCP - General 11/11/19 10/01/24 documented as of this encounter
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
--- OUTSIDE RECORDS SUMMARY | 2024-10-20 04:00 | XMS_ITS | Encounter Summary ---
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 Denies 04/22/2024 Comments No Sex and Gender Information Value Date Recorded Sex Assigned at Not on file Legal Sex Female 2:14 AM [employer] Gender Identity Not on file Sexual Orientation Not on file documented as of this encounter Last Filed Vital Signs Vital Sign Reading Time Taken Comments Blood Pressure 171/101 04/22/2024 7:45 PM CDT Pulse 116 04/22/2024 7:45 PM CDT Temperature 36.8 ??C (98.3 ??F) 04/22/2024 7:45 PM CD T Respiratory Rate 18 04/22/2024 7:45 PM CDT Oxygen Saturation 99% 04/22/2024 7:45 PM CDT Inhaled Oxygen Concentration - - Weight 90.7 kg (200 lb) 04/22/2024 7:45 PM CDT Height 160 cm (5' 3 ) 04/22/2024 7:45 PM CDT Body Mass Index 35.43 04/22/2024 7:45 PM CDT documented in this encounter Discharge Instructions * Attachments The following attachments cannot be sent through Care Everywhere. * Epigastric Pain (Uncertain Cause) (Maltese) documented in this encounter Medications at Time [...] not exceed 8 tablets/day. 12 tablet 09/06/2018 omeprazole (PriLOSEC) 20 mg capsuleIndicatio ns:Treatment of [...] Refills Last Filled Start Date End Date omeprazole (PriLOSEC) 20 mg capsuleIndications :Treatment of Non-Bleeding Gastric Disorder Take 1 capsule (20 mg total) by mouth daily 30 capsule 04/22/2024 5 documented in this encounter Discharge Disposition Disposition Code Departure Means Destination Comment s Discharge to home or self care documented in this encounter ED Notes * Kush Welsh MD - 04/22/2024 10:48 PM CDT HPI Chief Complaint Patient presents with Multiple Medical Complaints 49-year-old with a history of hypertension, JULIAN here with a complaint of epigastric pain radiating into her right side chest complains of occasional nausea but no vomiting. She states that she had diarrhea all morning. Denies any blood in the stool or in the vomitus. Patient History: Patient Active Problem List Diagnosis [...] Review of Systems Constitutional: Negative. HENT: Negative. Eyes: Negative. Gastrointestinal: Positive for abdominal pain, diarrhea and nausea. Genitourinary: Negative. Musculoskeletal: Negative. Neurological: Negative. Hematological: Negative. Psychiatric/Behavioral: Negative. Physical Exam ED Triage Vitals [04/22/241944] Temp Pulse Resp BP SpO2 36.8 ??C (98.3 ??F) 116 18 (!) 171/101 99 % Temp src Heart Rate Source Patient Position BP Location FiO2 (%) Temporal -- -- -- -- Height Height Method Weight Weight Method 1.6 m (5' 3 ) Stated 90.7 kg (200 lb) Stated Physical Exam Vitals and nursing note reviewed. Constitutional: Appearance: She is obese. HENT: Head: Normocephalic and atraumatic. Nose: Nose normal. Eyes: Pupils: Pupils are equal, round, and reactive to light. Cardiovascular: Rate and Rhythm: Normal rate and regular rhythm. Pulmonary: Effort: Pulmonary effort is normal. Breath sounds: Normal breath sounds. Abdominal: Palpations: Abdomen is soft. Musculoskeletal: General: Normal range of motion. Cervical back: Normal range of motion. Skin: General: Skin is warm and dry. Neurological: General: No focal deficit present. Mental Status: She is alert and oriented to person, place, and time. Psychiatric: Mood and Affect: Mood normal. Results for orders placed or performed during the hospital encounter of 04/22/24 Urinalysis reflex to microscopic and culture Urine Specimen: Urine Result Value Ref Range Color, ur Yellow Yellow Clarity, ur Turbid (A) Clear Specific gravity, ur 1.032 (H) 1.003 - 1.030 pH, urine 6.0 Protein, ur ql 1+ (A) Negative Glucose, ur ql Negative Negative Ketones, ur Trace Negative Bilirubin, ur Negative Negative Blood, ur Negative Negative Urobilinogen, ur 2.0 (A) <2.0 mg/dL Nitrite, ur Negative Negative Leukocyte esterase, ur 2+ (A) Negative UA reflex comment Reflex to microscopic UA will be performed. CBC with auto differential Result Value Ref Range WBC 12.0 (H) 3.8 - 9.9 K/cumm Hgb 14.6 11.9 - 15.5 g/dL Hct 43.7 35.6 - 45.5 % Plt 488 (H) 150 - 400 K/cumm MPV 10.2 9.1 - 12.3 fL RBC 5.09 3.90 - 5.20 M/cumm MCV 85.9 81.3 - 96.4 fL MCH 28.7 27.1 - 33.3 pg MCHC 33.4 32.3 - 35.7 g/dL RDW CV 14.1 11.1 - 14.9 % RDW SD 43.2 35.7 - 48.1 fL NRBC abs 0.00 0.00 - 0.01 K/cumm Comprehensive metabolic panel Result Value Ref Range Sodium 137 135 - 145 mmol/L Potassium, pl 3.8 3.3 - 4.9 mmol/L Chloride 102 97 - 110 mmol/L CO2 21 (L) 22 - 32 mmol/L Anion gap 14 2 - 15 mmol/L BUN 15 6 - 25 mg/dL Creatinine 1.29 (H) 0.60 - 1.10 mg/dL Glucose 112 70 - 199 mg/dL Calcium 9.3 8.5 - 10.3 mg/dL Bilirubin, total 0.5 0.1 - 1.2 mg/dL Protein, pl 7.8 6.5 - 8.5 g/dL Albumin 4.7 3.5 - 5.0 g/dL Alk phos 76 40 - 130 Units/L ALT 14 7 - 45 Units/L AST 19 10 - 45 Units/L Troponin T high-sensitivity series (baseline, 2hr, 4hr, 6hr) Result Value Ref Range Trop T hs <6 <=14 ng/L Lipase Result Value Ref Range Lipase 32 10 - 99 Units/L Drugs of Abuse Screen, Urine without Confirmation Result Value Ref Range Amphetamine, ur Screen Positive, presumptive (A) CutOff 500ng/mL Barbiturates, ur Not Detected CutOff 200ng/mL Benzodiazepines, ur Not Detected CutOff 100ng/mL Cannabinoids, ur Screen Positive, presumptive (A) CutOff 50 ng/mL Cocaine, ur Not Detected CutOff 150ng/mL Fentanyl, Ur Not Detected CutOff 5 ng/mL Methadone, ur Not Detected CutOff 300ng/mL Opiates, ur Not Detected CutOff 300ng/mL Oxycodone, ur Not Detected CutOff 100ng/mL Phencyclidine, ur Not Detected CutOff 25 ng/mL Urine Creatinine 571 mg/dL Differential, auto Result Value Ref Range Neutrophil abs 8.0 (H) 1.5 - 6.5 K/cumm Imm gran abs 0.0 0.0 - 0.1 K/cumm Lymphocyte abs 2.7 0.8 - 3.3 K/cumm Monocyte abs 1.0 (H) 0.2 - 0.8 K/cumm Eosinophil abs 0.1 0.0 - 0.5 K/cumm Basophil abs 0.1 0.0 - 0.1 K/cumm Neutrophil pct 67.2 % Imm gran pct 0.3 % Lymphocyte pct 22.5 % Monocyte pct 8.6 % Eosinophil pct 0.6 % Basophil pct 0.8 % Urinalysis, microscopic only Result Value Ref Range WBC, ur 11-20 (A) 0 - 5 /HPF RBC, ur 21-50 (A) 0 - 2 /HPF Epithelial cells, squamous, ur 11-20 (A) 0 - 5 /HPF Bacteria, ur Trace (A) Mucous, ur Present (A) Hyaline casts, ur >50 (A) 0 - 10 /LPF Culture Reflex Comment Reflex to urine culture will be performed. eGFR Result Value Ref Range eGFR 51 (L) >=60 mL/min/1.73 m2 EXAM DESCRIPTION: CT ABDOMEN PELVIS W CONTRAST REASON FOR STUDY: RUQ pain upper middle and L sided abd pain x 3 days intermittently and worsening over the past few hours radiating to her chest and R shoulder. Pt reports hx of anxiety and gallbladder problems before. Pt endorses N/V/D as well TECHNIQUE: CT scan of the abdomen and pelvis performed with intravenous and without oral contrast using helical scanning technique with dynamic intravenous contrast injection. Reconstructed coronal and sagittal MPR images reviewed. All images stored on PACS. Automated exposure control was used as a dose optimization technique for this examination. CONTRAST TYPE/DOSE: 100mL of IOVERSOL 350 MG IODINE/ML INTRAVENOUS SYRINGE injected via intravenous COMPARISON: 12/18/2020 FINDINGS: LOWER CHEST: No significant pulmonary abnormalities. No effusion. LIVER: Liver is normal in size. Undulating surface appearance liver may reflect chronic underlying liver disease. GALLBLADDER: Partially distended and obscured by motion. No gross CT evidence of acute cholecystitis. BILE DUCTS: No gross biliary ductal dilatation. SPLEEN: Spleen is normal in size with calcified granulomas PANCREAS: The pancreas is normal in size. No significant peripancreatic stranding or main ductal dilatation ADRENALS: Normal. KIDNEYS/URINARY TRACT: The kidneys are normal in size. Symmetric in enhancement. No hydronephrosis or significant perinephric stranding. Urinary bladder is partially distended. Mild indeterminate bladder wall thickening is noted in likely due to under distension. GI: Scattered colonic diverticular noted. Submucosal fat deposition is noted within the cecum and ascending colon, a chronic finding. The appendix is nondilated. Submucosal fat deposition is noted within the terminal ileum. The remainder of the small bowel appears normal without wall thickening or evidence of obstruction. The stomach is partially distended PERITONEUM: No free air. No ascites is seen. Subcentimeter mesenteric lymph nodes are noted. RETROPERITONEUM: Subcentimeter retroperitoneal lymph nodes are noted. Subcentimeter inguinal lymph nodes are noted. REPRODUCTIVE: Uterus is absent. VASCULATURE: Portal vein is patent. The aorta is normal in caliber. MUSCULOSKELETAL: No significant abnormality. OTHER: No other abnormality. IMPRESSION: 1. No gross CT finding to explain the patient's symptoms. 2. Indeterminate urinary bladder wall thickening. This is favored to be due to under distension. Recommend correlation with urinalysis. THIS IS AN EXAM DESCRIPTION: XR CHEST 1 VIEW REASON FOR STUDY: chest pain Pt ambulatory to triage c/o upper middle and L sided abd pain x 3 days intermittently and worsening over the past few hours radiating to her chest and R shoulder. Pt reports hx of anxiety and gallbladder problems before. Pt endorses N/V/D as well TECHNIQUE: 1 radiographic view(s) of the chest. COMPARISON: 12/18/2020 FINDINGS: LUNGS: No focal opacity, pleural effusion, or pneumothorax. HEART/MEDIASTINUM: Cardiac silhouette normal in size. Mediastinal and hilar contours appear normal. LINES/TUBES: None. BONES: No acute osseous abnormality. IMPRESSION: No acute cardiopulmonary abnormality. MDM Medical Decision Making Risk Prescription drug management. ED Course as of 04/22/242251 Time: 04/22 2251 Comment: Patient feeling better notified about the lab work, CT findings. Recommended her to take medication as prescribed, follow with the primary doctor as needed By: Kush Welsh MD Final diagnoses: Epigastric pain Kush Welsh MD 04/22/242251 * Filipe Cabrera RN - 04/22/2024 7:42 PM CDT Pt ambulatory to triage c/o upper middle and L sided abd pain x 3 days intermittently and worseningover the past few hours radiating to her chest and R shoulder. Pt reports hx of anxiety and gallbladder problems before. Pt endorses N/V/D as well documented in this encounter Miscellaneous Notes * Result Encounter Note - Rei Aparicio PA - 04/22/2024 11:22 PM CDT Final Report: Growth indicates contamination with gram-positive usama. Please submit a new specimen with special attention given to the collection process and to prompt transport to the laboratory * ED Triage Provider Note - Sumanth Kramer NP - 04/22/2024 7:47 PM CDT 49-year-old female patient presents the ED complaining of upper mid and left- sided abdominal pain worsening over the past few hours and radiating to her chest and right shoulder. Has a history of anxiety, and has a history of gallbladder problems . Also complaining of nausea, vomiting, and diarrhea. documented in this encounter Plan of Treatment Not on file documented as of this encounter Procedures Procedure Name Priority Date/Time Associated Diagnosis Comments TROPONIN T HIGH-SENSITIVITY 2-HOUR Timed 04/22/2024 10:[address] ABDOMEN PELVIS W CONTRAST ED 04/22/2024 8:42 PM CDT URINALYSIS AND REFLEX TO MICROSCOPIC AND CULTURE STAT 04/22/2024 8:20 PM CDT DRUGS OF ABUSE SCREEN, URINE WITHOUT CONFIRMATION STAT 04/22/2024 8:20 PM CDT URINALYSIS, MICROSCOPIC ONLY STAT 04/22/2024 8:20 PM CDT URINE CULTURE STAT 04/22/2024 8:20 PM CDT XR CHEST 1 VIEW ED 04/22/2024 8:04 PM CDT TROPONIN T HIGH-SENSITIVITY SERIES (BASELINE, 2HR, 4HR, 6HR) STAT 04/22/2024 7:54 PM CDT EGFR STAT 04/22/2024 7:54 PM CDT DIFFERENTIAL AUTO STAT 04/22/2024 7:5 4 PM CDT CBC WITH AUTO DIFFERENTIAL STAT 04/22/2024 7:54 PM CDT LIPASE STAT 04/22/2024 7:54 PM CDT COMPREHENSIVE METABOLIC PANEL STAT 04/22/2024 7:54 PM CDT ECG 12-LEAD STAT 04/22/2024 7:48 PM CDT documented in this encounter Results * Troponin T high-sensitivity 2-hour (04/22/2024 10:34 PM CDT) Trop T hs <6 <=14 ng/L Comment: Interpretive Data For further hscTnT resources including the diagnostic algorithm and an aid in interpretation, copy and paste this link: https://nrl.testcatalog.org/show/hsTrop Current Interpretive Data last revised 2020. Trop T hs delta 0 ng/L [facility] ([place]) Trop T hs interp Insignificant [facility] ([place]) Blood 04/22/2024 10:3 4 PM CDT 04/22/2024 10:36 PM CDT Sumanth Kramer NP LAB BLOOD ORDERABLES Final Result [facility] ([place]) 1 [facility] [place] [address] * CT Abdomen Pelvis W Contrast (04/22/2024 8:42 PM CDT) Anatomical Region Laterality Modality Body N/A Computed Tomogra phy 04/22/2024 8:46 PM CDT Narrative 04/22/2024 8:51 PM CDT EXAM DESCRIPTION: ?? CT ABDOMEN PELVIS W CONTRAST REASON FOR STUDY: ?? RUQ pain ?? upper middle and L sided abd pain x 3 days intermittently and worsening over the past few hours radiating to her chest and R shoulder. Pt reports hx of anxiety and gallbladder problems before. Pt endorses N/V/D as well ? TECHNIQUE: CT scan of the abdomen and pelvis performed with intravenous and ?? without ??oral contrast using helical scanning technique with dynamic intravenous contrast injection. Reconstructed coronal and sagittal MPR images reviewed. All images stored on PACS. Automated exposure control was used as a dose optimization technique for this examination. CONTRAST TYPE/DOSE: ?? 100mL of IOVERSOL 350 MG IODINE/ML INTRAVENOUS SYRINGE ?? injected via ?? intravenous COMPARISON: 12/18/2020 FINDINGS: LOWER CHEST: ?? No significant pulmonary abnormalities. No effusion. LIVER: ?? Liver is normal in size. ??Undulating surface appearance liver may reflect chronic underlying liver disease. GALLBLADDER: ?? Partially distended and obscured by motion. ??No gross CT evidence of acute cholecystitis. BILE DUCTS: ?? No gross biliary ductal dilatation. SPLEEN: ?? Spleen is normal in size with calcified granulomas PANCREAS: ?? The pancreas is normal in size. ??No significant peripancreatic stranding or main ductal dilatation ?? ADRENALS: ?? Normal. KIDNEYS/URINARY TRACT: ?? The kidneys are normal in size. ??Symmetric in enhancement. ??No hydronephrosis or significant perinephric stranding. ??Urinary bladder is partially distended. ??Mild indeterminate bladder wall thickening is noted in likely due to under distension. ?? GI: ?? Scattered colonic diverticular noted. ??Submucosal fat deposition is noted within the cecum and ascending colon, a chronic finding. ??The appendix is nondilated. ??Submucosal fat deposition is noted within the terminal ileum. ?? The remainder of the small bowel appears normal without wall thickening or evidence of obstruction. ??The stomach is partially distended PERITONEUM: ?? No free air. ??No ascites is seen. ??Subcentimeter mesenteric lymph nodes are noted. RETROPERITONEUM: ?? Subcentimeter retroperitoneal lymph nodes are noted. ?? Subcentimeter inguinal lymph nodes are noted. REPRODUCTIVE: ?? Uterus is absent. VASCULATURE: ?? Portal vein is patent. ??The aorta is normal in caliber. MUSCULOSKELETAL: ?? No significant abnormality. OTHER: ?? No other abnormality. IMPRESSION: ?? 1. ?? No gross CT finding to explain the patient's symptoms. 2. ?? Indeterminate urinary bladder wall thickening. ??This is favored to be due to under distension. ??Recommend correlation with urinalysis. THIS IS AN ELECTRONICALLY VERIFIED FINAL REPORT 04/22/2024 8:51 PM - Electronically signed by ??Jaret Lares M.D. AG: AG D: ??04/22/2024 8:51 PM T: ??04/22/2024 8:51 PM Report ID: [id number] Reading Location: ??[id number] Procedure Note Jaret Lares MD - 04/22/2024 EXAM DESCRIPTION: CT ABDOMEN PELVIS W CONTRAST REASON FOR STUDY: RUQ pain upper middle and L sided abd pain x 3 days intermittently and worseningover the past few hours radiating to her chest and R shoulder. Pt reports hx of anxiety and gallbladder problems before. Pt endorses N/V/D as well TECHNIQUE: CT scan of the abdomen and pelvis performed with intravenousand without oral contrast using helical scanning technique with dynamic intravenous contrast injection. Reconstructed coronal and sagittal MPRimages reviewed. All images stored on PACS. Automated exposure control was usedas a dose optimization technique for this examination. CONTRAST TYPE/DOSE: 100mL of IOVERSOL 350 MG IODINE/ML INTRAVENOUSSYRINGE injected via intravenous COMPARISON: 12/18/2020 FINDINGS: LOWER CHEST: No significant pulmonary abnormalities. No effusion. LIVER: Liver is normal in size. Undulating surface appearance liver may reflect chronic underlying liver disease. GALLBLADDER: Partially distended and obscured by motion. No gross CT evidence of acute cholecystitis. BILE DUCTS: No gross biliary ductal dilatation. SPLEEN: Spleen is normal in size with calcified granulomas PANCREAS: The pancreas is normal in size. No significant peripancreatic stranding or main ductal dilatation ADRENALS: Normal. KIDNEYS/URINARY TRACT: The kidneys are normal in size. Symmetric in enhancement. No hydronephrosis or significant perinephric stranding.Urinary bladder is partially distended. Mild indeterminate bladder wallthickening is noted in likely due to under distension. GI: Scattered colonic diverticular noted. Submucosal fat deposition is noted within the cecum and ascending colon, a chronic finding. Theappendix is nondilated. Submucosal fat deposition is noted within the terminalileum. The remainder of the small bowel appears normal without wall thickening or evidence of obstruction. The stomach is partially distended PERITONEUM: No free air. No ascites is seen. Subcentimeter mesenteric lymph nodes are noted. RETROPERITONEUM: Subcentimeter retroperitoneal lymph nodes are noted. Subcentimeter inguinal lymph nodes are noted. REPRODUCTIVE: Uterus is absent. VASCULATURE: Portal vein is patent. The aorta is normal in caliber. MUSCULOSKELETAL: No significant abnormality. OTHER: No other abnormality. IMPRESSION: 1. No gross CT finding to explain the patient's symptoms. 2. Indeterminate urinary bladder wall thickening. This is favored to bedue to under distension. Recommend correlation with urinalysis. THIS IS AN ELECTRONICALLY VERIFIED FINAL REPORT 04/22/2024 8:51 PM - Electronically signed by Jaret Lares M.D. AG: MAURI Report ID: [id number] Reading Location: [id number] Sumanth Kramer NP IMG CT PROCEDURES Final Res ult * (ABNORMAL) Urine culture Urine (04/22/2024 8:20 PM CDT) Report Final Report: Growth indicates contamination with gram-positive usama. Please submit a new specimen with special attention given to the collection process and to prompt transport to the laboratory. (.) Comment:Testing performed by : [facility], [address] [place]., [address] Organism GROWTH INDICATES CONTAMINATION WITH GRAM-POS USAMA [facility] ([place]) Urine 04/22/2024 8:20 PM CDT 04/23/2024 5:10 AM CDT Narrative [facility] ([place]) - 04/24/2024 12:41 PM CDT Urine culture reflexed based upon urinalysis results. Testing performed by [facility] Laboratory ([phone]) us Sumanth Kramer NP LAB MICROBIOLOGY - GENERAL ORDERABLES Final Result [facility] ([place]) 1 [facility] [employer] [place] [address] * (ABNORMAL) Urinalysis, microscopic only (04/22/2024 8:20 PM CDT) WBC, ur 11-20(A) 0 - 5 /HPF RBC, ur 21-50(A) 0 - 2 /HPF [facility] ([place]) Epithelial cells, squamous, ur 11-20(A) 0 - 5 /HPF [facility] ([place]) Bacteria, ur Trace(A) [facility] ([place]) Mucous, ur Present(A) [facility] ([place]) Hyaline casts, ur >50(A) 0 - 10 /LPF [facility] ([place]) Culture Reflex Comment Reflex to urine culture will be performed. [facility] ([place]) Urine 04/22/2024 8:20 PM CDT 04/22/2024 8:23 PM CDT us Sumanth Kramer NP LAB URINE ORDERABLES Final Result Performing Organization Address City/[facility]/ZIP Co de Phone Number [facility] ([place]) 1 [facility] Department [place] [employer] [address] * (ABNORMAL) Drugs of Abuse Screen, Urine without Confirmation (04/22/2024 8:20 PM CDT) Amphetamine, ur Screen Positive, presumptive (A) CutOff 500ng/mL Comment: Interpretive Data - Amphetamines: ??Samples containing greater than 500 ng/mL d-methamphetamine ??or other cross-reacting amphetamine compounds are reported as positive. ??Amphetamine immunoassays are subject to significant false positive rates due to cross-reactivity of non-amphetamine drugs. Confirmatory testing required for definitive results. Current Interpretive Data was last reviewed 2023. Barbiturates, ur Not Detected CutOff 200ng/mL [facility] ([place]) Comment: Interpretive Data - Barbiturates: ??Samples containing greater than 200 ng/mL secobarbital or other cross-reacting barbiturate compounds are reported as positive. ??False positive and false negative results are possible. Confirmatory testing required for definitive results. Current Interpretive Data was last reviewed 2023. Benzodiazepines, ur Not Detected CutOff 100ng/mL [facility] ([place]) Comment: Interpretive Data - Benzodiazepines: ??Samples containing greater than 100 ng/mL nordiazepam or other cross-reacting compounds are reported as positive. False positive and false negative results are possible. Confirmatory testing required for definitive results. Current Interpretive Data was last reviewed 2023. Cannabinoids, ur Screen Positive, presumptive (A) CutOff 50 ng/mL [facility] ([place]) Comment: Interpretive Data - Cannabinoids: ??Samples containing greater than 50 ng/mL delta-9 THC -COOH or other cross-reacting compounds are reported as positive. ??False positive and false negative results are possible. ??Confirmatory testing required for definitive results. Current Interpretive Data was last reviewed 2023. Cocaine, ur Not Detected CutOff 150ng/mL [facility] ([place]) Comment: Interpretive Data - Cocaine: ??Samples containing greater than 150 ng/mL benzoylecgonine or other cross-reacting compounds are reported as positive. False positive and false negative results are possible. Confirmatory testing required for definitive results. Current Interpretive Data was last reviewed 2023. Fentanyl, Ur Not Detected CutOff 5 ng/mL [facility] ([place]) Comment: Interpretive Data - Fentanyl: ??Samples containing greater than 5 ng/mL norfentanyl, fentanyl, or other cross-reacting fentanyl compounds are reported as positive. False positive and false negative results are possible. Confirmatory testing required for definitive results. Current Interpretive Data was last reviewed 2023. Methadone, ur Not Detected CutOff 300ng/mL [facility] ([place]) Comment: Interpretive Data - Methadone: ??Samples containing greater than 300 ng/mL d,l-methadone or other cross-reacting compounds are reported as positive. ??False positive and false negative results are possible. Confirmatory testing required for definitive results. Current Interpretive Data was last reviewed 2023. Opiates, ur Not Detected CutOff 300ng/mL [facility] ([place]) Comment: Interpretive Data - Opiates: ??Samples containing greater than 300 ng/mL morphine or other cross-reacting compounds are reported as positive. ??False positive and false negative results are possible. Confirmatory testing required for definitive results. Current Interpretive Data was last reviewed 2023. Oxycodone, ur Not Detected CutOff 100ng/mL [facility] ([place]) Comment: Interpretive Data - Oxycodone: ??Samples containing greater than 100 ng/mL oxycodone or other cross-reacting compounds are reported as ??positive. ??False positive and false negative results are possible. Confirmatory testing required for definitive results. Current Interpretive Data was last reviewed 2023. Phencyclidine, ur Not Detected CutOff 25 ng/mL [facility] ([place]) Comment: Interpretive Data - Phencyclidine: ??Samples containing greater than 25 ng/mL phencyclidine or other cross-reacting compounds are reported as positive. ??False positive and false negative results are possible. Confirmatory testing required for definitive results. Current Interpretive Data was last reviewed 2023. Urine Creatinine 571 mg/dL [facility] ([place]) Comment: Interpretive Data Urine Creatinine: < 10 mg/dL is extremely dilute = or > 10 but < 20 mg/dL is dilute = or > 20 mg/dL is normal Current Interpretive Data was last revised on 2017. Urine 04/22/2024 8:20 PM CDT 04/22/2024 8:23 PM CDT Narrative [facility] ([place]) - 04/22/2024 9:08 PM CDT Drug of Abuse screening is performed by immunoassay for medical purposes only. ??This is not to be used for Pain Management purposes. us Sumanth Kramer NP LAB URINE ORDERABLES Final Result Performing Organization Address City/[facility]/ZIP Co de Phone Number JOSE ANTONIO KENNEDY ([place]) 1 [facility] [employer] [place] [address] * (ABNORMAL) Urinalysis reflex to microscopic and culture Urine (04/22/2024 8:20 PM CDT) Color, ur Yellow Yellow Clarity, ur Turbid(A) Clear [facility] ([place]) Specific gravity, ur 1.032(H) 1.003 - 1.030 [facility] ([place]) pH, urine 6.0 [facility] ([place]) Comment: Interpretive Data ? Urine pH is affected by diet, medications, systemic acid-base disturbances, and renal tubular function. ??pH may affect urinary stone formation. ??For example, urine pH below 6.0 may help reduce the tendency for calcium phosphate stones and pH greater than 6.0 may reduce the tendency for uric acid stone formation. Source: [facility] Current Interpretive Data was last revised on 2017 Protein, ur ql 1+(A) Negative [facility] ([place]) Glucose, ur ql Negative Negative [facility] ([place]) Ketones, ur Trace Negative [facility] ([place]) Bilirubin, ur Negative Negative [facility] ([place]) Blood, ur Negative Negative [facility] ([place]) Urobilinogen, ur 2.0(A) <2.0 mg/dL [facility] ([place]) Nitrite, ur Negative Negative [facility] ([place]) Leukocyte esterase, ur 2+(A) Negative [facility] ([place]) UA reflex comment Reflex to microscopic UA will be performed. [facility] ([place]) Urine 04/22/2024 8:20 PM CDT 04/22/2024 8:23 PM CDT us Sumanth Kramer NP LAB MICROBIOLOGY - GENERAL ORDERABLES Final Result [facility]ENN[facility] ([place]) 1 [facility] [employer] [place] [address] * XR Chest 1 Vw Portable (04/22/2024 8:04 PM CDT) Anatomical Region Laterality Modality Body, Chest N/A Computed Radiogr aphy 04/22/2024 8:11 PM CDT Narrative 04/22/2024 8:12 PM CDT EXAM DESCRIPTION: XR CHEST 1 VIEW REASON FOR STUDY: chest pain ?? Pt ambulatory to triage c/o upper middle and L sided abd pain x 3 days intermittently and worsening over the past few hours radiating to her chest and R shoulder. Pt reports hx of anxiety and gallbladder problems before. Pt endorses N/V/D as well ? TECHNIQUE: 1 ??radiographic view(s) of the chest. COMPARISON: 12/18/2020 FINDINGS: LUNGS: ??No focal opacity, pleural effusion, or pneumothorax. ?? HEART/MEDIASTINUM: ??Cardiac silhouette normal in size. Mediastinal and hilar contours appear normal. LINES/TUBES: ??None. BONES: ??No acute osseous abnormality. IMPRESSION: No acute cardiopulmonary abnormality. THIS IS AN ELECTRONICALLY VERIFIED FINAL REPORT 04/22/2024 8:12 PM - Electronically signed by ??Efrain Mckeon M.D. KT: KT D: ??04/22/2024 8:12 PM T: ??04/22/2024 8:12 PM Report ID: [id number] Reading Location: ??[id number] Procedure Note Efrain Mckeon MD - 04/22/2024 EXAM DESCRIPTION: XR CHEST 1 VIEW REASON FOR STUDY: chest pain Pt ambulatory to triage c/o upper middle and L sided abd pain x 3 days intermittently and worsening over the past few hours radiating to herchest and R shoulder. Pt reports hx of anxiety and gallbladder problems before.Pt endorses N/V/D as well TECHNIQUE: 1 radiographic view(s) of the chest. COMPARISON: 12/18/2020 FINDINGS: LUNGS: No focal opacity, pleural effusion, or pneumothorax. HEART/MEDIASTINUM: Cardiac silhouette normal in size. Mediastinal andhilar contours appear normal. LINES/TUBES: None. BONES: No acute osseous abnormality. IMPRESSION: No acute cardiopulmonary abnormality. THIS IS AN ELECTRONICALLY VERIFIED FINAL REPORT 04/22/2024 8:12 PM - Electronically signed by Efrain Mckeon M.D. KT: BENITEZ Report ID: [id number] Reading Location: [place] [address] Sumanth Kramre COIL FINISHER IMG XR PROCEDURES Final Res ult * (ABNORMAL) eGFR (04/22/2024 7:54 PM CDT) eGFR 51(L) >=60 mL/min/1. 73 m2 Comment: Interpretive Data Reference Interval Normal ?>/= 90 mL/min/1.73m2 Mildly decreased* ? 60 - 89 mL/min/1.73m2 Mildly to moderately decreased ?45 - 59 mL/min/1.73m2 Moderately to severely decreased ??30 - 44 mL/min/1.73m2 Severely decreased ?15 - 29 mL/min/1.73m2 Kidney Failure ?< 15 ??mL/min/1.73m2 *Relative to young adult level Estimated glomerular filtration rate is determined by the 2020 CKD-EPI equation recommended by the National Kidney Foundation (A Unifying Approach to GFR Estimation: Recommendations of the NKF-ASK Task Force on Reassessing the Inclusion of Race in Diagnosing Kidney Disease, JASN 2020). The CKD-EPI equation should not be used for patients with unstable renal function and has not been validated in children and those over 70. Current interpretive data was last reviewed 2021. Blood 04/22/2024 7:54 PM CDT 04/22/2024 7:57 PM CDT Sumanth Ayanna Thurm COIL FINISHER LAB BLOOD ORDERABLES Final Result [facility]SE [facility]TONIO KENNED[facility] ([place]) 1 [facility] [place] [address] * (ABNORMAL) Differential, auto (04/22/2024 7:54 PM CDT) Neutrophil abs 8.0(H) 1.5 - 6.5 K/cumm Imm gran abs 0.0 0.0 - 0.1 K/cumm [facility] ([place]) Lymphocyte abs 2.7 0.8 - 3.3 K/cumm [facility] ([place]) Monocyte abs 1.0(H) 0.2 - 0.8 K/cumm [facility] ([place]) Eosinophil abs 0.1 0.0 - 0.5 K/cumm [facility] ([place]) Basophil abs 0.1 0.0 - 0.1 K/cumm [facility] ([place]) Neutrophil pct 67.2 % [facility] ([place]) Comment: Interpretive Data Percent cell count reference ranges are not reported, since discordance with absolute values may lead to misinterpretation of CBC data. Current Interpretive Data was last revised on 2018. Imm gran pct 0.3 % [facility] ([place]) Comment: Interpretive Data Percent cell count reference ranges are not reported, since discordance with absolute values may lead to misinterpretation of CBC data. Current Interpretive Data was last revised on 2018. Lymphocyte pct 22.5 % [facility] ([place]) Comment: Interpretive Data Percent cell count reference ranges are not reported, since discordance with absolute values may lead to misinterpretation of CBC data. Current Interpretive Data was last revised on 2018. Monocyte pct 8.6 % [facility] ([place]) Comment: Interpretive Data Percent cell count reference ranges are not reported, since discordance with absolute values may lead to misinterpretation of CBC data. Current Interpretive Data was last revised on 2018. Eosinophil pct 0.6 % [facility] ([place]) Comment: Interpretive Data Percent cell count reference ranges are not reported, since discordance with absolute values may lead to misinterpretation of CBC data. Current Interpretive Data was last revised on 2018. Basophil pct 0.8 % [facility] ([place]) Comment: Interpretive Data Percent cell count reference ranges are not reported, since discordance with absolute values may lead to misinterpretation of CBC data. Current Interpretive Data was last revised on 2018. Blood 04/22/2024 7:54 PM CDT 04/22/2024 7:57 PM CDT Sumanth Kramer NP LAB BLOOD ORDERABLES Final Result [facility]SE ANTONIO KENNED[facility] ([place]) 1 [facility] [place] [address] * Lipase (04/22/2024 7:54 PM CDT) Lipase 32 10 - 99 Units/L Blood 04/22/2024 7:54 PM CDT 04/22/2024 7:57 PM CDT Sumanth Kramer NP LAB BLOOD ORDERABLES Final Result Performing Organization Address [facility] Co de Phone Number JOSE ANTONIO KENNEDY ([place]) 1 [facility] [place] [address] * Troponin T high-sensitivity series (baseline, 2hr, 4hr, 6hr) (04/22/2024 7:54 PM CDT) Trop T hs <6 <=14 ng/L Comment: Interpretive Data For further hscTnT resources including the diagnostic algorithm and an aid in interpretation, copy and paste this link: https://nrl.testcatalog.org/show/hsTrop Current Interpretive Data last revised 2020. Blood 04/22/2024 7:54 PM CDT 04/22/2024 7:57 PM CDT Sumanth Kramer NP LAB BLOOD ORDERABLES Final Result Performing Organization Address City/[facility]/ZIP Co de Phone Number JOSE ANTONIO KENNEDY ([place]) 1 [facility] [place] [address] * (ABNORMAL) Comprehensive metabolic panel (04/22/2024 7:54 PM CDT) Sodium 137 135 - 145 mmol/L Potassium, pl 3.8 3.3 - 4.9 mmol/L [facility] ([place]) Chloride 102 97 - 110 mmol/L [facility] ([place]) CO2 21(L) 22 - 32 mmol/L [facility] ([place]) Anion gap 14 2 - 15 mmol/L [facility] ([place]) BUN 15 6 - 25 mg/dL [facility] ([place]) Creatinine 1.29(H) 0.60 - 1.10 mg/dL [facility] ([place]) Glucose 112 70 - 199 mg/dL [facility] ([place]) Comment: Interpretive Data Fasting glucose >/= 126 mg/dl is diagnostic for diabetes. ?? Fasting is defined as no caloric intake for at least 8 hours. Fasting glucose between 100 mg/dl to 125 mg/dl is diagnostic of prediabetes. In a patient with classic symptoms of hyperglycemia or hyperglycemic crisis, a random glucose >/= 200 mg/dl is diagnostic for diabetes. In the absence of unequivocal hyperglycemia, results should be confirmed by repeat testing. The classification and Diagnosis of Diabetes Diabetes Care 2021; 46: S19-S40. Current interpretive data was last revised 2022. Calcium 9.3 8.5 - 10.3 mg/dL [facility] ([place]) Bilirubin, total 0.5 0.1 - 1.2 mg/dL [facility] ([place]) Protein, pl 7.8 6.5 - 8.5 g/dL [facility] ([place]) Albumin 4.7 3.5 - 5.0 g/dL [facility] ([place]) Alk phos 76 40 - 130 Units/L [facility] ([place]) ALT 14 7 - 45 Units/L [facility] ([place]) AST 19 10 - 45 Units/L [facility] ([place]) Comment:Slightly Hemolyzed S pecimen Blood 04/22/2024 7:54 PM CDT 04/22/2024 7:57 PM CDT us Sumanth Kramer COIL FINISHER LAB BLOOD ORDERABLES Final Result [facility] ([place]) 1 [facility] [place] [address] * (ABNORMAL) CBC with auto differential (04/22/2024 7:54 PM CDT) WBC 12.0(H) 3.8 - 9.9 K/cumm Hgb 14.6 11.9 - 15.5 g/dL [facility] ([place]) Hct 43.7 35.6 - 45.5 % [facility] ([place]) Plt 488(H) 150 - 400 K/cumm [facility] ([place]) MPV 10.2 9.1 - 12.3 fL [facility] ([place]) RBC 5.09 3.90 - 5.20 M/cumm [facility] ([place]) MCV 85.9 81.3 - 96.4 fL [facility] ([place]) MCH 28.7 27.1 - 33.3 pg [facility] ([place]) MCHC 33.4 32.3 - 35.7 g/dL [facility] ([place]) RDW CV 14.1 11.1 - 14.9 % [facility] ([place]) RDW SD 43.2 35.7 - 48.1 fL [facility] ([place]) NRBC abs 0.00 0.00 - 0.01 K/cumm [facility] ([place]) Blood 04/22/2024 7:54 PM CDT 04/22/2024 7:57 PM CDT us Sumanth Kramer COIL FINISHER LAB BLOOD ORDERABLES Final Result JOSE ANTONIO KENNEDY ([place]) 1 [facility] [place] [address] * ECG 12 lead (04/22/2024 7:48 PM CDT) 04/22/2024 7:48 PM CDT Narrative [facility] - 04/23/2024 9:24 AM CDT Vent Rate: 113 bpm RR Interval: 528 msec MT Interval: 137 msec QRS Duration: 75 msec QT Interval: 310 msec QTC Interval: 377 msec P-R-T [place]: 30 - 19 - -5 degrees IMPRESSION: SINUS TACHYCARDIA POSSIBLE LEFT ATRIAL ENLARGEMENT ??[-0.1mV P WAVE IN V1/V2] NONSPECIFIC ST ABNORMALITY ABNORMAL RHYTHM ECG Compared to prior EKG, heart rate has increased ST segment changes are new Electronically Signed By: Hakan Cooney MD us Sumanth Kramer NP ECG ORDERABLES Final Resul t [employer] documented in this encounter Visit Diagnoses Diagnosis Epigastric pain- Primary Abdominal pain, epigastric documented in this encounter Administered Medications Inactive Administered Medications - up to 3 most recent administrations Medication Order MAR Action Action Date Dose Rate Site al & mag hydroxide simethicone-lidocaine oral suspension mixture 40 mL, oral, Once, On Pamela 04/22/24 at 2205, For 1 dose Given 04/22/2024 10:35 PM CDT 40 mL famotidine (PEPCID) injection 20 mg 20 mg, intravenous, Administer over 2 Minutes, Once, On Pamela 04/22/24 at 2205, For 1 dose Given 04/22/2024 10:35 PM CDT 20 mg ioversoL (OPTIRAY 350) syringe 100 mL 100 mL, intravenous, Once in imaging, contrast, Starting on Pamela 04/22/24 at 2033, For 1 dose Contrast Given 04/22/2024 8:36 PM CDT 100 mL ketorolac (TORADOL) 15 mg/mL injection 15 mg 15 mg, intravenous, Once, On Pamela 04/22/24 at 2205, For 1 dose, For Adult IV push, administer over 15 seconds, Indications: PainIndications:Pain Given 04/22/2024 10:35 PM CDT 15 mg documented in this encounter Active and Recently Administered Medications Times are shown in CDT. Scheduled Medication Order 04/20/2024 04/21/2024 04/22/2024 al & mag hydroxide simethicone-lidocaine oral suspension mixture (COMPLETED) 40 mL, oral, Once, On Pamela 04/22/24 at 2205, For 1 dose 2234 (Given - Provid er: Shilo Walden, MITESH) famotidine (PEPCID) injection 20 mg (COMPLETED) 20 mg, intravenous, Administer over 2 Minutes, Once, On Pamela 04/22/24 at 2205, For 1 dose 2234 (Given - Provid er: Shilo Walden, MITESH) ketorolac (TORADOL) 15 mg/mL injection 15 mg (COMPLETED) 15 mg, intravenous, Once, On Pamela 04/22/24 at 2205, For 1 dose, For Adult IV push, administer over 15 seconds, Indications: Pain 2234 (Given - Provid er: Shilo Walden RN) PRN Medication Order 04/20/2024 04/21/2024 04/22/2024 ioversoL (OPTIRAY 350) syringe 100 mL (COMPLETED) 100 mL, intravenous, Once in imaging, contrast, Starting on Pamela 04/22/24 at 2033, For 1 dose 2035 (Contrast Given - Provider: Lilibeth Pasucal, RT) documented in this encounter Care Teams Green Chain Worker Relationship Specialty Start Date End Date John Méndez MD PCP - General 11/11/19 10/01/24 documented as of this encounter
--- OUTSIDE RECORDS SUMMARY | 2024-10-20 04:00 | XMS_ITS | Encounter Summary ---
Author Organization [facility] Care Team Providers Care Press Breaker Name Role Phone John Méndez MD Primary Care Provider [phone] Encounter Details Date Type Department Care Team (Latest Contact Info) Description 11/11/2019 Travel Social History Tobacco Use Types Packs/Day Years Used Date Smoking Tobacco: Never Smokeless Tobacco: Never Alcohol Use Standard Drinks/Week Comments No 0 (1 standard drink = 0.6 oz pur e alcohol) Comments No Sex and Gender Information Value Date Recorded Sex Assigned at Not on file Legal Sex Female 2:14 AM CASE CHECKER Gender Identity Not on file Sexual Orientation Not on file documented as of this encounter Plan of Treatment Not on file documented as of this encounter Visit Diagnoses Not on filedocumented in this encounter Care Teams Press Breaker Relationship Specialty Start Date End Date John Méndez MD PCP - General 11/11/19 10/01/24 documented as of this encounter
--- OUTSIDE RECORDS SUMMARY | 2024-10-20 04:00 | XMS_ITS | Clinical Summary ---
Author Organization [facility] Address [address] [place] [address] Care Team Providers Care Senior Government Program Analyst Name Role Phone Dakota Fabian NP Primary Care Provider Allergies Active Allergy Reactions Criticality Noted Date [...] 01/17/2014 Overview (01/16/2017): Obstructive sleep apnea syndrome Encounters Date Type Department Care Team Description 10/16/2024 3:45 PM BUSINESS COMMUNICATIONS INSTRUCTOR Office Visit [facility] at [address] [phone] Va Garces NP Strep pharyngitis (Primary Dx); Cough, unspecified type 10/02/2024 12:27 PM BUSINESS COMMUNICATIONS INSTRUCTOR - 10/02/2024 1:15 PM BUSINESS COMMUNICATIONS INSTRUCTOR Emergency [facility] Emergency Department [address] [place] [address] Acute conjunctivitis of right eye, unspecified acute conjunctivitis type (Primary Dx) Discharge Disposition: Discharge to home or self care 08/14/2024 6:15 PM CDT Office Visit [facility] at [address] [place] [address] Thelma Covarrubias NP Strep pharyngitis (Primary Dx) from Last 3 Months Surgical History Surgery Date Site/Laterality Comments HYSTERECTOMY 2010 Hysterectomy HYSTERECTOMY Hysterectomy Medical History Medical History Date Comments Hypertension Hypertension Hx Other Medical Headache, migra ine Tension headache Headache, tensi on Family History Medical History Relation Name Comments Diabetes Father Diabetes mellit us; Hypertension Father Hypertension; Hypertension Mother Hypertension; Migraines Mother Migraine; Hypertension Other 1 Family history of Hypertension; Migraines Other 2 Family history of Migraine; Relation Name Status Comments Father Mother Other 1 Other 2 Social History Tobacco Use Types Packs/Day Years [...] on file Legal Sex Female 2:14 AM BUSINESS COMMUNICATIONS INSTRUCTOR Gender Identity Not on file Sexual Orientation Not on file Obstetrics History Last Filed Vital Signs Vital Sign Reading Time Taken Comments Blood Pressure 142/84 10/16/2024 3:24 PM BUSINESS COMMUNICATIONS INSTRUCTOR Pulse 72 10/16/2024 3:24 PM BUSINESS COMMUNICATIONS INSTRUCTOR Temperature 36.8 ??C (98.2 ??F) 10/16/2024 3:24 PM CS T Respiratory Rate 18 10/16/2024 3:24 PM BUSINESS COMMUNICATIONS INSTRUCTOR Oxygen Saturation 97% 10/16/2024 3:24 PM BUSINESS COMMUNICATIONS INSTRUCTOR Inhaled Oxygen Concentration - - Weight 98.3 kg (216 lb 11.2 oz) 10/16/2024 3:24 PM BUSINESS COMMUNICATIONS INSTRUCTOR Height 157.5 cm (5' 2 ) 08/14/2024 6:04 PM CDT Body Mass Index 39.63 08/14/2024 6:04 PM CDT Plan of Treatment Health Maintenance Due Date Last Done Comments Colon Cancer Screening-Colonoscopy 1975 Depression Screening 1975 Hepatitis C Screening 1975 DTaP/Tdap/Td Vaccine (1 - Tdap) 1986 Hepatitis B Screening 1993 Regular Well Visit/Exam 18-64 1993 Breast Cancer Screening-Mammogram 08/02/2022 08/02/2021, 08/02/2021, 07/22/2020, Additional history exists Influenza Vaccine (#1) 2024 8, 08/04/2017, 07/05/2016, Additional history exists Pneumococcal vaccine <65 Aged Out No longer eligible based on patient's age to complete this topic Procedures Procedure Name Priority Date/Time Associated Diagnosis Comments POC INFLUENZA A/B, COVID-19 ANTIGEN Routine 10/16/2024 3:55 PM BUSINESS COMMUNICATIONS INSTRUCTOR Cough, unspecified type POCT RAPID STREP Routine 10/16/2024 3:44 PM BUSINESS COMMUNICATIONS INSTRUCTOR Cough, unspecified type POCT RAPID STREP Routine 08/14/2024 6:15 PM CDT Strep pharyngitis from Last 3 Months Results * POC Influenza A/B, COVID-19 antigen (10/16/2024 3:55 PM BUSINESS COMMUNICATIONS INSTRUCTOR) Pathologist [facility] Influenza A Ag, POC Negative Negative [facility] Influenza B Ag, POC Negative Negative [facility] COVID-19 Ag POC Presumptive Negative Presumptive Negative, Invalid [facility] Nasal 10/16/2024 3:55 PM BUSINESS COMMUNICATIONS INSTRUCTOR Va Garces DIRECTOR OF CATERING SALES POINT OF CARE TEST OR DERABLES Final Result [address] [phone] * (ABNORMAL) POCT rapid strep A (10/16/2024 3:44 PM BUSINESS COMMUNICATIONS INSTRUCTOR) Rapid Strep A, POC Positive(A ) Negative Swab 10/16/2024 3:44 PM BUSINESS COMMUNICATIONS INSTRUCTOR Va Garces DIRECTOR OF CATERING SALES POINT OF CARE TEST OR DERABLES Final Result * (ABNORMAL) POCT rapid strep A (08/14/2024 6:15 PM CDT) Rapid Strep A, POC Positive(A ) Negative Swab 08/14/2024 6:15 PM CDT Thelma Covarrubias NP POINT OF CARE TEST ORDER LATRICE Final Result from Last 3 Months Insurance [facility] Care Teams Senior Government Program Analyst Relationship Specialty Start Date End Date Dakota Fabian NP 2 [facility] [address] [address] PCP - General Nurse Practitioner 10/02/24
--- OUTSIDE RECORDS SUMMARY | 2024-10-20 04:00 | XMS_ITS | Encounter Summary ---
Author Organization [facility] Healthcare Address [address] [place] [address] Care Team Providers Care [employer] Name Role Phone Dakota Fabian OILER BANDER Primary Care Provider Reason for Visit * Reason Comments Eye Problem Encounter Details Date Type Department Care Team (Late st Contact Info) Description 10/02/2024 12:27 PM NECKTIE STITCHER - 10/02/2024 1:15 PM NECKTIE STITCHER Emergency [facility] Emergency Department [address] [place] [address] Acute conjunctivitis of right eye, unspecified acute [...] on file Legal Sex Female 2:14 AM NECKTIE STITCHER Gender Identity Not on file Sexual Orientation Not on file documented as of this encounter Last Filed Vital Signs Vital Sign Reading Time Taken Comments Blood Pressure 142/97 10/02/2024 12:25 PM NECKTIE STITCHER Pulse 83 10/02/2024 12:25 PM NECKTIE STITCHER Temperature 36.7 ??C (98.1 ??F) 10/02/2024 12:[address] Respiratory Rate 17 10/02/2024 12:25 PM NECKTIE STITCHER Oxygen Saturation 100% 10/02/2024 12:25 PM NECKTIE STITCHER Inhaled Oxygen Concentration - - Weight 90.7 kg (200 lb) 10/02/2024 12:25 PM NECKTIE STITCHER Height - - Body Mass Index 36.58 08/14/2024 6:04 PM CDT documented in this encounter Discharge Instructions * Attachments The following attachments cannot be sent through Care Everywhere. * Conjunctivitis, Nonspecific (Urdu) documented in this encounter Medications at Time of Discharge amLODIPine (NORVASC) 10 mg tablet Take 1 tablet (10 mg total) by mouth daily 2 8 azithromycin (ZITHROMAX) 250 mg tabletIndications:S trep pharyngitis Take 2 tablets the first day, then 1 tablet daily for 4 days. 6 tablet 4 cetirizine (ZyrTEC) 10 mg tablet TAKE 1 TABLET BY MOUTH EVERY DAY FOR COUGH/RUNNY NOSE 2 7 cyclobenzaprine (FLEXERIL) 10 mg tabletIndications:M uscle Spasm Take 0.5 tablets (5 mg total) by mouth 3 (three) times a day as needed for muscle spasms 12 tablet 9 FLUoxetine (PROzac) 40 mg capsule TAKE 1 CAPSULE BY MOUTH ONCE DAILY IN THE MORNING 4 HYDROcodone-acetami nophen (NORCO) 5-325 mg per tabletIndications:P ain Take 1-2 tablets by mouth every 4 (four) hours as needed for other (Cough). Do not exceed 8 tablets/day. 12 tablet 8 losartan (COZAAR) 50 mg tablet Take 1 tablet (50 mg total) by mouth daily 4 methocarbamoL (ROBAXIN) 500 mg tablet Take 1 tablet (500 mg total) by mouth 2 (two) times a day 20 tablet 4 montelukast (SINGULAIR) 10 mg tablet Take 1 tablet (10 mg total) by mouth daily 4 naproxen (NAPROSYN) 500 mg tablet Take 1 tablet (500 mg total) by mouth 2 (two) times a day with meals 30 tablet 4 omeprazole (PriLOSEC) 20 mg capsuleIndications: Treatment of Non-Bleeding Gastric Disorder Take 1 capsule (20 mg total) by mouth daily 30 capsule 4 04/22/20 25 sertraline (ZOLOFT) 100 mg tablet TAKE 1.5 TABLETS BY MOUTH DAILY 0 7 tiZANidine (ZANAFLEX) 4 mg tablet Take 1 tablet (4 mg total) by mouth traMADol (ULTRAM) 50 mg tablet Take 1 tablet (50 mg total) by mouth every 6 (six) hours. Take as directed for pain not relieved by meloxicam or Tylenol with codeine alone 20 tablet 9 traZODone (DESYREL) 50 mg tablet 4 neomycin-polymyxin- dexAMETHasone (MAXITROL) 3.5mg/mL-10,000 unit/mL-0.1 % ophthalmic suspensionIndicatio ns:Acute conjunctivitis of right eye, unspecified acute conjunctivitis type Administer 1 drop into the right eye 4 (four) times a day for 7 days Instill 1 drop in right eye q.i.d. for 7 days. Collaborating physician Kenn Torres MD 5 mL 1 4 10/09/20 24 documented as of this encounter Ordered Prescriptions Prescription Sig Dispense Quantity Refills Last Filled Start Date End Date neomycin-polymyxin- dexAMETHasone (MAXITROL) 3.5mg/mL-10,000 unit/mL-0.1 % ophthalmic suspensionIndicatio ns:Acute conjunctivitis of right eye, unspecified acute conjunctivitis type Administer 1 drop into the right eye 4 (four) times a day for 7 days Instill 1 drop in right eye q.i.d. for 7 days. Collaborating physician Kenn Torres MD 5 mL 1 4 10/09/20 24 documented in this encounter Discharge Disposition Disposition Code Departure Means Destination Comment s Discharge to home or self care documented in this encounter ED Notes * Rei Aparicio PA - 10/02/2024 12:46 PM CST HPI Chief Complaint Patient presents with Eye Problem 49-year-old female with history of RLS, JULIAN, anxiety, degenerative disc disease, depression, GERD, and hypertension presents with right eye redness and crusting. Onset 1 day ago. 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 Her has similar symptoms. Denies vision loss. He complains of eye irritation aggravated by blinking. History provided by: Patient direct marketing specialist used: No Patient History: Patient Active Problem List Diagnosis Date Noted Acute conjunctivitis of right eye 10/02/2024 B12 deficiency 05/11/2024 Folic acid deficiency 05/11/2024 Anxiety 09/28/2019 Chronic sinusitis 09/28/2019 Degenerative lumbar disc 09/28/2019 Depression 09/28/2019 Gastroesophageal reflux disease 09/28/2019 History of methicillin resistant Staphylococcus aureus infection 09/28/2019 Hyperlipidemia 09/28/2019 Hypertensive disorder 09/28/2019 Cervicalgia 05/11/2019 Sacroiliac joint dysfunction of both sides 05/11/2019 Sprain of left knee, initial encounter 11/04/2018 [...] Review of Systems All other systems reviewed negative. All available allergies, past medical history, past surgical history, social history, and medications reviewed from the medical record, nursing notes, and with patient Physical Exam ED Triage Vitals Temp Pulse Resp BP SpO2 10/02/24 1224 10/02/24 1225 10/02/24 1225 10/02/24 1225 10/02/24 1225 36.7 ??C (98.1 ??F) 83 17 142/97 100 % Temp src Heart Rate Source Patient Position BP Location FiO2 (%) 10/02/24 1224 -- -- -- -- Temporal Height Height Method Weight Weight Method -- -- 10/02/24 1225 -- 90.7 kg (200 lb) Physical Exam Vitals and nursing note reviewed. Constitutional: Appearance: Normal appearance. HENT: Head: Normocephalic and atraumatic. Right Ear: External ear normal. Left Ear: External ear normal. Nose: Nose normal. Mouth/Throat: Mouth: Mucous membranes are moist. Pharynx: Oropharynx is clear. Eyes: General: Right eye: Discharge present. Pupils: Pupils are equal, round, and reactive to light. Comments: Right eye conjunctival injection Cardiovascular: Rate and Rhythm: Normal rate and regular rhythm. Pulses: Normal pulses. Heart sounds: Normal heart sounds. Pulmonary: Effort: Pulmonary effort is normal. Breath sounds: Normal breath sounds. Skin: General: Skin is warm and dry. Neurological: General: No focal deficit present. Mental Status: She is alert and oriented to person, place, and time. Psychiatric: Thought Content: Thought content normal. Judgment: Judgment normal. MDM Medical Decision Making 49-year-old female presents with right eye conjunctival injection with discharge. Negative for vision loss. Negative for history of trauma. Positive exposure to child with pinkeye. Based on history and physical exam findings consistent with conjunctivitis. Discharge plan: Prescription for Maxitrol ophthalmic drops sent to patient's preferred pharmacy. Follow-up with PCP p.r.n.. Given contact information for local liquor stores and agencies supervisor for persistent or worsening signs/symptoms. 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 Pt has right eye redness. Pt statesit gets crusty. TIE STITCHER documented in this encounter Plan of Treatment Not on file documented as of this encounter Visit Diagnoses Diagnosis Acute conjunctivitis of right eye, unspecified acute conjunctivitis type- Primary Acute conjunctivitis of right eye documented in this encounter Care Teams [employer] Relationship Specialty Start Date End Date Dakota Fabian NP [address] [place] [id number] PCP - General Nurse Practitioner 10/02/24 documented as of this encounter
--- OUTSIDE RECORDS SUMMARY | 2024-10-20 04:00 | XMS_ITS | Encounter Summary ---
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 reference ranges are not reported, since discordance with absolute values may lead to misinterpretation of CBC data. Current Interpretive Data was last revised on 2018. Imm gran pct 0.2 % [facility] ([place]) Comment: Interpretive Data Percent cell count reference ranges are not reported, since discordance with absolute values may lead to misinterpretation of CBC data. Current Interpretive Data was last revised on 2018. Lymphocyte pct 40.7 % [facility] ([place]) Comment: Interpretive Data Percent cell count reference ranges are not reported, since discordance with absolute values may lead to misinterpretation of CBC data. Current Interpretive Data was last revised on 2018. Monocyte pct 8.1 % [facility] ([place]) Comment: Interpretive Data Percent cell count reference ranges are not reported, since discordance with absolute values may lead to misinterpretation of CBC data. Current Interpretive Data was last revised on 2018. Eosinophil pct 3.0 % [facility] ([place]) Comment: Interpretive Data Percent cell count reference ranges are not reported, since discordance with absolute values may lead to misinterpretation of CBC data. Current Interpretive Data was last revised on 2018. Basophil pct 0.9 % [facility] ([place]) Comment: Interpretive Data Percent cell count reference ranges are not reported, since discordance with absolute values may lead to misinterpretation of CBC data. Current Interpretive Data was last revised on 2018. Blood specimen (specimen) 12/18/2020 8:04 PM SADDLE AND HARNESS MAKER 12/18/2020 8:07 PM SADDLE AND HARNESS MAKER Sana Baltazar MD LAB BLOOD ORDERABLE S Final Result Performing Organization Address [facility] Co de Phone Number JOSE ANTONIO [facility] ([place]) [address] [place] [address] * aPTT (12/18/2020 8:04 PM SADDLE AND HARNESS MAKER) aPTT 37 27 - 37 sec JOSE ANTONIO [facility] ([place]) Comment: Interpretive data Heparin therapeutic range: 60-94 seconds Range based on correlation with therapeutic heparin activity range of 0.3-0.7 units/ml. Current interpretive data was last revised on 2019. Blood specimen (specimen) 12/18/2020 8:04 PM SADDLE AND HARNESS MAKER 12/18/2020 8:07 PM SADDLE AND HARNESS MAKER Sana Baltazar MD LAB BLOOD ORDERABLE S Final Result Performing Organization Address [facility] de Phone Number JOSE ANTONIO [facility] ([place]) [address] [place] [address] * Protime-INR (12/18/2020 8:04 PM SADDLE AND HARNESS MAKER) PT 13.0 9.5 - 13.6 sec JOSE ANTONIO [facility] ([place]) INR 1.2 0.9 - 1.2 JOSE ANTONIO [facility] ([place]) Comment: Interpretive data Oral anticoagulant therapeutic ranges: Venous thromboembolism prophylaxis or treatment: 2.0-3.0 CARDIOLOGY Standard range: 2.0-3.0 High-intensity range: 2.5-3.5 Refer to indication-specific guidelines for appropriate target ranges for prosthetic heart valve replacement. Current interpretive data was last revised on 2019. Blood specimen (specimen) 12/18/2020 8:04 PM SADDLE AND HARNESS MAKER 12/18/2020 8:07 PM SADDLE AND HARNESS MAKER Sana Baltazar MD LAB BLOOD ORDERABLE S Final Result JOSE ANTONIO [facility] ([place]) 1 [facility] [place] [address] * Lipase (12/18/2020 8:04 PM SADDLE AND HARNESS MAKER) Lipase 52 10 - 99 Units/L [facility] ([place]) Blood specimen (specimen) 12/18/2020 8:04 PM SADDLE AND HARNESS MAKER 12/18/2020 8:07 PM SADDLE AND HARNESS MAKER Sana Baltazar MD LAB BLOOD ORDERABLE S Final Result Performing Organization Address City/[facility]/ZIP Co de Phone Number JOSE ANTONIO [facility] ([place]) 1 [facility] [place] [address] * Comprehensive metabolic panel (12/18/2020 8:04 PM SADDLE AND HARNESS MAKER) Sodium 139 135 - 145 mmol/L [facility] ([place]) Potassium, pl 3.6 3.3 - 4.9 mmol/L [facility] ([place]) Chloride 103 97 - 110 mmol/L [facility] ([place]) CO2 27 22 - 32 mmol/L [facility] ([place]) Anion gap 10 2 - 15 mmol/L [facility] ([place]) BUN 12 8 - 25 mg/dL [facility] ([place]) Creatinine 0.62 0.60 - 1.10 mg/dL [facility] ([place]) Glucose 95 70 - 199 mg/dL [facility] ([place]) [...] classification and Diagnosis of Diabetes Diabetes Care 2017;40 (Suppl. 1):S11. Current interpretive data was last revised 2017. Calcium 8.7 8.5 - 10.3 mg/dL [facility] ([place]) Bilirubin, total <0.2 0.1 - 1.2 mg/dL [facility] ([place]) Protein, pl 6.7 6.5 - 8.5 g/dL [facility] ([place]) Albumin 3.8 3.5 - 5.0 g/dL [facility] ([place]) Alk phos 66 40 - 130 Units/L [facility] ([place]) ALT 17 7 - 45 Units/L [facility] ([place]) AST 13 10 - 45 Units/L [facility] ([place]) Blood specimen (specimen) 12/18/2020 8:04 PM SADDLE AND HARNESS MAKER 12/18/2020 8:07 PM SADDLE AND HARNESS MAKER us Sana Baltazar MD LAB BLOOD ORDERABLE S Final Result [facility] ([place]) 1 [facility] Department of Laboratories [place], [place] [id number] * (ABNORMAL) CBC with auto differential (12/18/2020 8:04 PM SADDLE AND HARNESS MAKER) WBC 6.7 3.8 - 9.9 K/cumm [facility] ([place]) Hgb 11.7(L) 11.9 - 15.5 g/dL [facility] ([place]) Hct 37.3 35.6 - 45.5 % [facility] ([place]) Plt 334 150 - 400 K/cumm [facility] ([place]) MPV 9.8 9.1 - 12.3 fL [facility] ([place]) RBC 4.50 3.90 - 5.20 M/cumm [facility] ([place]) MCV 82.9 81.3 - 96.4 fL [facility] ([place]) MCH 26.0(L) 27.1 - 33.3 pg [facility] ([place]) MCHC 31.4(L) 32.3 - 35.7 g/dL [facility] ([place]) RDW CV 14.5 11.1 - 14.9 % [facility] ([place]) RDW SD 43.5 35.7 - 48.1 fL [facility] ([place]) NRBC abs 0.00 0.00 - 0.01 K/cumm [facility] ([place]) Blood specimen (specimen) 12/18/2020 8:04 PM SADDLE AND HARNESS MAKER 12/18/2020 8:07 PM SADDLE AND HARNESS MAKER us aSna Baltazar MD LAB BLOOD ORDERABLE S Final Result [facility] ([place]) 1 [facility] [place] [address] documented in this encounter Visit Diagnoses Diagnosis Cervical strain, acute, initial encounter- Primary Contusion of abdominal wall, initial encounter documented in this encounter Administered Medications Inactive Administered Medications - up to 3 most recent administrations Medication Order MAR Action Action Date Dose Rate Site HYDROcodone-acetaminophen (NORCO) 5-325 mg per tablet - ADS Override Pull Starting on Fri12/18/20 at 2048, For 1 dose, Created by cabinet override Given 12/18/2020 8:59 PM SADDLE AND HARNESS MAKER HYDROcodone-acetaminophen (NORCO) 5-325 mg per tablet 2 tablet 2 tablet, oral, Once, On Fri12/18/20 at 195, For 1 dose, Indications: PainIndications:Pain Given 12/18/2020 8:52 PM SADDLE AND HARNESS MAKER 2 tablets ioversoL (OPTIRAY 320) intravenous syringe 100 mL 100 mL, intravenous, Once in imaging, contrast, Starting on Fri12/18/20 at 2125, For 1 dose Given 12/18/2020 9:27 PM SADDLE AND HARNESS MAKER 100 mL Right Forearm ondansetron ODT (ZOFRAN-ODT) disintegrating tablet 4 mg 4 mg, oral, Once, On Fri12/18/20 at 195, For 1 dose, Indications: Nausea, VomitingIndications:Nausea, Vomiting Given 12/18/2020 8:53 PM SADDLE AND HARNESS MAKER 4 mg documented in this encounter Active and Recently Administered Medications Times are shown in SADDLE [employer] HARNESS MAKER. Scheduled Medication Order 12/16/2020 12/17/2020 12/18/2020 HYDROcodone-acetaminophen (NORCO) 5-325 mg per tablet 2 tablet (COMPLETED) 2 tablet, oral, Once, On Fri12/18/20 at 1955, For 1 dose, Indications: Pain 2051 (Given - Provid er: Rajan Moura RN) ondansetron ODT (ZOFRAN-ODT) disintegrating tablet 4 mg (COMPLETED) 4 mg, oral, Once, On Fri12/18/20 at 1955, For 1 dose, Indications: Nausea, Vomiting 2052 (Given - Provid er: Rajan Moura RN) PRN Medication Order 12/16/2020 12/17/2020 12/18/2020 ioversoL (OPTIRAY 320) intravenous syringe 100 mL (COMPLETED) 100 mL, intravenous, Once in imaging, contrast, Starting on Fri12/18/20 at 2124, For 1 dose 2126 (Given - Provid er: Paradise Fernandez, RT - Comment: [id number] ) No Frequency Medication Order 12/16/2020 12/17/2020 12/18/2020 HYDROcodone-acetaminophen (NORCO) 5-325 mg per tablet - ADS Override Pull (COMPLETED) Starting on Fri12/18/20 at 2048, For 1 dose, Created by cabinet override 2058 (Given - Provid er: Rajan Moura RN) documented in this encounter Care Teams Medical Director Occupational Health Relationship Specialty Start Date End Date John Méndez MD PCP - General 11/11/19 10/01/24 documented as of this encounter
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
--- OUTSIDE RECORDS SUMMARY | 2024-10-20 04:00 | XMS_ITS | Encounter Summary ---
Author Organization [facility] Care Team Providers Care Saxophone Teacher Name Role Phone Miscellaneous, Not In File Primary Care Provider Unavailable Encounter Details Date Type Department Care Team (Latest Contact Info) Description 06/27/2019 Travel Social History Tobacco Use Types Packs/Day Years Used Date Smoking Tobacco: Never Smokeless Tobacco: Never Alcohol Use Standard Drinks/Week Comments No 0 (1 standard drink = 0.6 oz pur e alcohol) Comments No Sex and Gender Information Value Date Recorded Sex Assigned at Not on file Legal Sex Female 2:14 AM DEGREASING SOLUTION RECLAIMER Gender Identity Not on file Sexual Orientation Not on file documented as of this encounter Plan of Treatment Not on file documented as of this encounter Visit Diagnoses Not on filedocumented in this encounter Care Teams Saxophone Teacher Relationship Specialty Start Date End Date Miscellaneous, Not In File PCP - General 07/09/17 documented as of this encounter
--- OUTSIDE RECORDS SUMMARY | 2024-10-20 04:01 | XMS_ITS | Encounter Summary ---
Author Organization [facility] Healthcare Address [address] [place] [address] Care Team Providers Care Venue Coordinator Name Role Phone No, Physician Primary Care Provider [phone] Encounter Details Date Type Department Care Team (Latest Contact Info) Description 06/19/2017 8:08 AM CDT - 06/19/2017 3:35 PM T Hospital Encounter LOCATED WITHIN [facility] OP INTERIM [phone] Alfredito Razo MD [address] [place] [address] Discharge Disposition: Discharge to home or self care Social History Tobacco Use Types Packs/Day Years Used Date Smoking Tobacco: Never Smokeless Tobacco: Never Alcohol Use Standard Drinks/Week Comments No 0 (1 standard drink = 0.6 oz pur e alcohol) Comments Unknown Sex and Gender Information Value Date Recorded Sex Assigned at Not on file Legal Sex Female 2:14 AM ZIPPER TRIMMER HAND Gender Identity Not on file Sexual Orientation Not on file documented as of this encounter Medications at Time of Discharge cetirizine (ZyrTEC) 10 mg tablet TAKE 1 TABLET BY MOUTH EVERY DAY FOR COUGH/RUNNY NOSE 2 2017 sertraline (ZOLOFT) 100 mg tablet TAKE 1.5 TABLETS BY MOUTH DAILY 0 05/13/2017 acetaminophen-cod eine (TYLENOL with CODEINE #3) 300-30 mg per tablet TAKE 1 TABLET BY MOUTH 3 TIMES A DAY NEEDED FOR PAIN WITH FOOD. FILL ON OR AFTER 05/15/17. 0 05/16/2017 09/06/2018 amLODIPine (NORVASC) 5 mg tablet Take 5 mg by mouth daily. 5 05/11/2017 09/06/2018 estradiol (ESTRACE) 0.01 % (0.1 mg/gram) vaginal cream insert (1G) by vaginal route every week 0 0 01/18/2014 09/06/2018 estradiol (ESTRACE) 1 mg tablet take 1 tablet by oral route every day 0 0 05/02/2014 09/06/2018 estrogens conjugated, synthetic A, (CENESTIN) 0.3 mg tablet take 1 tablet by oral route every day 0 0 04/28/2013 09/06/2018 fluticasone (FLONASE) 50 mcg/actuation nasal spray INSTILL 2 SPRAYS IN EACH NOSTRIL DAILY. PLEASE ADVISE PATIENT TO CALL FOR APT FOR FUTURE REFILLS. 2 05/04/2017 09/06/2018 guaiFENesin-codei ne (ROBITUSSIN-AC) 20-2 mg/mL liquid TAKE 10 ML BY MOUTH EVERY 4 HOURS NEEDED COUGH 0 03/06/2017 09/06/2018 losartan (COZAAR) 25 mg tablet take 1 tablet by oral route every day 0 0 01/18/2014 09/06/2018 losartan (COZAAR) 25 mg tablet take 1 tablet by oral route every day 0 0 05/02/2014 08/14/2024 losartan-hydrochl orothiazide (HYZAAR) 100-25 mg per tablet Take 1 tablet by mouth daily. 0 05/13/2017 09/06/2018 naproxen (NAPROSYN,ALEVE) 500 mg tablet take 1 tablet by oral route 2 times every day with food 30 0 05/21/2016 09/06/2018 documented as of this encounter Discharge Disposition Disposition Code Departure Means Destination Discharge to home or self care documented in this encounter Miscellaneous Notes * Op Note - Provider, MD Adolfo - 06/19/2017 12:00 AM CDT Patient: ISAMAR SOLIZ Reg No: [id number] U H #: [id number] Admit Dt.: 06/19/2017 : 1975 Pt Type: [facility] Room No: Attending: Alfredito Razo MD Surgeon: George Christian MD Dictating: George Christian MD Service Dt: 06/19/2017 OPERATIVE REPORT FACILITY ID: [facility] SURGEON George Christian MD FIRST PHOTOGRAPHER MODEL Emily Brayn MD SECOND BLACK OXIDE COATING EQUIPMENT TENDER Ralph Arrieta MD PREOPERATIVE DIAGNOSIS Right bimalleolar ankle fracture. POSTOPERATIVE DIAGNOSIS Right bimalleolar ankle fracture. OPERATIVE PROCEDURE Open reduction and internal fixation of right distal fibula. ANESTHESIA General, regional. ESTIMATED BLOOD LOSS 20 mL. IV FLUIDS 1300 mL. URINE OUTPUT None. TOURNIQUET TIME 100 minutes, prior to incision until sterile dressings applied. SPECIMENS None. COMPLICATIONS None. FINDINGS Successful reduction and plating of the distal fibular fracture. The syndesmosis was stressed and was found to be stable. IMPLANTS Synthes third tubular, 7-hole plate. One 2.7 mm lag screw inserted through the plate. One low-profile 3.5 screw was inserted distally, the remaining were standard 3.5 cortical screws. INDICATIONS FOR PROCEDURE The patient is a 42-year-old female who sustained an injury to her right ankle when she tripped down the bottom few stairs. She was evaluated and noted to have a closed, isolated, unstable ankle fracture on the right with fractures of the lateral and posterior malleolus. She underwent a closed reduction and splinting. She was apprised of her condition and treatment options. Risks, benefits, alternatives, and potential complications of surgical treatment were reviewed in detail. The patient expressed understanding and elected to proceed. Risks of the procedure included but were not limited to, bleeding, infection, blood clots, injury to surrounding structures, malunion, nonunion, hardware failure, need for repeat surgery, ongoing pain, ongoing stiffness, risks of anesthesia, and . DESCRIPTION OF PROCEDURE The patient was met in the preoperative holding area by the surgical and anesthetic team. She was identified by name, date of , and medical record number. She was transferred to the operating room, placed on the operating table in a supine position. All bony prominences were well padded. A sequential compression device was applied to the contralateral lower extremity. A bump was placed under the hip. A tourniquet was placed on the thigh. A preoperative time-out was performed. The patient's identity, operative side, and operative procedure were all confirmed. Preoperative antibiotics were dosed. We then began the procedure by exsanguinating the limb and raising the tourniquet. We created a 10 cm longitudinal incision over the posterior border of the fibula. We dissected down to fascia being certain not to injure the superficial peroneal nerve. We divided the fascia over the peroneal tendons and exposed the fracture site. The fracture site was cleaned out and irrigated. The apex of the distal fragment was noted to be a separate piece, but the remainder of the fracture was 2 part. We used a yhhab-uu-ystmc reduction clamp to reduce the fracture. Appropriate reduction was confirmed visually, by palpation, and under fluoroscopic imaging in comparison to views of the contralateral ankle that been taken preoperatively. We then applied a 7-hole, third tubular plate in a posterolateral position. We confirmed appropriate length and position on x-ray. We placed an apex screw. We then placed a 2.7 mm lag screw by technique through the plate. We then placed additional screws proximally and distally. Following plate placement we then stressed the syndesmosis and found it to be stable. We then thoroughly irrigated the wound. The wound was then closed in layers with 1-0 Vicryl for fascia, followed by 2-0 Monocryl and 3-0 nylon for skin. A sterile dressing was applied, followed by a splint. The patient was awoken from anesthesia and transferred to the recovery room in a stable condition having suffered no complications. NEEDLE, SPONGE, AND INSTRUMENT COUNTS Correct x2. POSTOPERATIVE PLAN The patient will be non-weight bearing. She was instructed on strict elevation and icing. She will receive VTE prophylaxis. She will be mobilized early. She will follow up in clinic and further care will be transferred to the Orthopedic Trauma Service. ATTENDING PRESENCE I was present and scrubbed for the entire surgical procedure. Electronically Authenticated and Edited by: George Christian MD On 06/20/2017 08:46 AM CDT George Christian MD AE:[facility] #[id number] Editing MT: TD: 06/19/2017 12:54 PM cc: MD George Ramos MD documented in this encounter Plan of Treatment Not on file documented as of this encounter Procedures Procedure Name Priority Date/Time Associated Diagnosis Comments XR ANKLE 2 VW Routine 06/19/2017 4:47 PM CDT documented in this encounter Results * XR Ankle 2 VW (06/19/2017 4:47 PM CDT) Anatomical Region Laterality Modality N/A Radiographic Dagmar ging 06/19/2017 4:47 PM CDT Narrative 06/19/2017 4:47 PM CDT EMILY DUENAS M.D. FINAL REPORT ACC# ??Date Time ??Exam [id number] Jun 19, 2017 11:47:00 [id number] Ankle 2 views R EXAMINATION: ?Right ankle to the HISTORY: ??Right ankle bimalleolar fracture FINDINGS: ?? A two-view non-weightbearing intraoperative examination of the right ankle is compared to the prior examination dated 06/16/2017. There has been interval reduction and internal fixation of an intra-articular distal fibula fracture. There is also a nondisplaced intra-articular fracture the posterior malleolus. There is no syndesmotic widening. There is soft tissue swelling. 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 IMPRESSION: ?? 1. Interval reduction and internal fixation of an intra-articular distal right fibula fracture. 2. Nondisplaced intra-articular right posterior malleolus fracture. Requested By: GEORGE CHRISTIAN ??MVincenzo Dictated By: ?? EMILY DUENAS M.D. ??on Jun ??2016 12:05P This document has been electronically signed by: EMILY DUENAS M.D. on Jun ??2016 12:05P [id number] DUENAS M.D. FINAL REPORT Attending: ??DANNI, ??ALFREDITO Requesting: ??BIB, ??GEORGE Requesting Fax: ?? Attending Fax: ?? Attending ID: ??[id number] Requesting ID: ??[id number] Report To 1 ID: ??[id number] ? Report To 1 Name: ??, ?? Report To 1 FAX: ?? NextGen Order #: ?? Procedure Note Miscellaneous, Not In File - 08/11/2017 EMILY DUENAS M.D. FINAL REPORT ACC# Date Time Exam [id number] Jun 19, 2017 11:47:00 [id number] Ankle 2 views R EXAMINATION: Right ankle to the HISTORY: Right ankle bimalleolar fracture FINDINGS: A two-view non-weightbearing intraoperative examination of the right ankle is compared to the prior examination dated 06/16/2017. There has been interval reduction and internal fixation of an intra-articular distal fibula fracture. There is also a nondisplaced intra-articular fracture the posterior malleolus. There is no syndesmotic widening. There is soft tissue swelling. 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 IMPRESSION: 1. Interval reduction and internal fixation of an intra-articular distal right fibula fracture. 2. Nondisplaced intra-articular right posterior malleolus fracture. Requested By: GEORGE CHRISTIAN M.D. Dictated By: EMILY DUENAS M.D. on Jun 19 2017 12:05P This document has been electronically signed by: EMILY DUENAS M.D. on Jun 19 2017 12:05P [id number] DUENAS M.D. FINAL REPORT Attending: ALFREDITO RAZO Requesting: GEORGE CHRISTIAN Requesting Fax: Attending Fax: Attending ID: [id number] Requesting ID: [id number] Report To 1 ID: [id number] Report To 1 Name: , Report To 1 FAX: NextGen Order #: George Christian MD IMG XR PROCEDURES Edited Result - Final documented in this encounter Visit Diagnoses Not on filedocumented in this encounter Care Teams Venue Coordinator Relationship Specialty Start Date End Date No, Physician PCP - General 06/15/17 07/08/17 documented as of this encounter
--- OUTSIDE RECORDS SUMMARY | 2024-10-20 04:01 | XMS_ITS | Encounter Summary ---
Author Organization [facility] Healthcare Address [address] [place] [address] Care Team Providers Care Salesperson Yard Goods Name Role Phone No, Physician Primary Care Provider [phone] Encounter Details Date Type Department Care Team (Latest Contact Info) Description 06/15/2017 7:32 PM CDT - 06/15/2017 11:59 PM CDT Hospital Encounter [facility] OP INTERIM Becky Garzon Discharge Disposition: Discharge to home or self care Social History Tobacco Use Types Packs/Day Years Used Date Smoking Tobacco: Never Smokeless Tobacco: Never Alcohol Use Standard Drinks/Week Comments No 0 (1 standard drink = 0.6 oz pur e alcohol) Comments Unknown Sex and Gender Information Value Date Recorded Sex Assigned at Not on file Legal Sex Female 2:14 AM LUMPIA WRAPPER MAKER Gender Identity Not on file Sexual [...] or self care documented in this encounter Plan of Treatment Not on file documented as of this encounter Visit Diagnoses Not on filedocumented in this encounter Care Teams Salesperson Yard Goods Relationship Specialty Start Date End Date No, Physician PCP - General 06/15/17 07/08/17 documented as of this encounter
--- OUTSIDE RECORDS SUMMARY | 2024-10-20 04:01 | XMS_ITS | Encounter Summary ---
Author Organization [facility] Address [address] [place] [address] Care Team Providers Care Residential Solar Consultant Name Role Phone No, Physician Primary Care Provider Unavailabl e Encounter Details Date Type Department Care Team (Latest Contact Info) Description 06/02/2017 11:30 AM CDT - 06/02/2017 11:59 PM CDT Hospital Encounter 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 ??There is no evidence of fracture, subluxation, or bony abnormality. us Ebenezer NAJERA IMG XR PROCEDURES Final Res ult documented in this encounter Visit Diagnoses Not on filedocumented in this encounter Care Teams Residential Solar Consultant Relationship Specialty Start Date End Date NO, PHYSICIAN PCP - General 02/05/17 06/14/17 documented as of this encounter
--- OUTSIDE RECORDS SUMMARY | 2024-10-20 04:01 | XMS_ITS | Encounter Summary ---
Author Organization [facility] Healthcare Address [address] [place] [address] Care Team Providers Care Federal Judge Name Role Phone Clary Xavier MD Primary Care Provider [phone] Encounter Details Date Type Department Care Team (Late st Contact Info) Description 12/21/2015 4:41 PM LIFE CLAIMS EXAMINER - 12/21/2015 7:30 PM LIFE CLAIMS EXAMINER Hospital Encounter [facility] Pedro Mcguire MD [address] [place] [phone] Closed fracture of lower end of left radius; Fall; Non-institutional private residence as place of occurrence of external cause Social History Tobacco Use Types Packs/Day Years Used Date Smoking Tobacco: Never Alcohol Use Standard Drinks/Week Comments No 0 (1 standard drink = 0.6 oz pur e alcohol) Comments Unknown Sex and Gender Information Value Date Recorded Sex Assigned at Not on file 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 Sex 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 Gender Identity Not on file Sexual Orientation Not on file documented as of this encounter Medications at Time of Discharge citalopram (CeleXA) 10 mg/5 mL suspension take 10 milliliter by oral route every day 0 0 01/18/2014 7 estradiol (ESTRACE) 0.01 % (0.1 mg/gram) vaginal cream insert (1G) by vaginal route every week 0 0 01/18/2014 8 estradiol (ESTRACE) 1 mg tablet take 1 tablet by oral route every day 0 0 05/02/2014 8 estrogens conjugated, synthetic A, (CENESTIN) 0.3 mg tablet take 1 tablet by oral route every day 0 0 04/28/2013 8 losartan (COZAAR) 25 mg tablet take 1 tablet by oral route every day 0 0 01/18/2014 8 losartan (COZAAR) 25 mg tablet take 1 tablet by oral route every day 0 0 05/02/2014 4 documented as of this encounter Plan of Treatment Not on file documented as of this encounter Procedures Procedure Name Priority Date/Time Associated Diagnosis Comments XR WRIST 3+ VW Routine 12/21/2015 6:02 PM LIFE CLAIMS EXAMINER documented in this encounter Results * XR Wrist 3+ VW (12/21/2015 6:02 PM LIFE CLAIMS EXAMINER) Anatomical Region Laterality Modality N/A Radiographic Dagmar ging 12/21/2015 6:02 PM LIFE CLAIMS EXAMINER Narrative 01/01/2016 6:40 AM CDT XR WRIST MIN 3 VIEWS L ??Acc#: ??[id number] DATE OF EXAM: ??Dec 21 2015 CLINICAL HISTORY: Left wrist pain, status post fall. RESULT: Three views of the left wrist demonstrate a comminuted distal radius fracture with fracture fragments entering the radiocarpal and distal radioulnar joint. ??Mild dorsal angulation is present. ??The distal ulna and the carpal bones appear normal. IMPRESSION: 1. MILDLY ANGULATED COMMINUTED DISTAL LEFT RADIUS FRACTURE. Interpreting Physician: ??DR CHRISTIANNE LEE M.D. ??Read on: ??Dec 21 2015 8:12P Transcribed by: ??elliot ??On: Dec 21 2015 ??8:12P Approved Electronically by: ??ROSA Anthony, DR FAUST ??on: ??Jan 01 2016 6:39A Attending: ??PEDRO SOLIMAN Requesting: ??PEDRO SOLIMAN Requesting Fax: ??-- Attending Fax: ??[phone] Attending ID: ??[id number] Requesting ID: ??[id number] Report To 1 ID: ??[id number] Report To 1 Name: ??PEDRO SOLIMAN Report To 1 FAX: ??-- NextGen Order #: Procedure Note Provider, Historical, MD - 02/05/2017 XR WRIST MIN 3 VIEWS L Acc#: [id number] DATE OF EXAM: Dec 21 2015 CLINICAL HISTORY: Left wrist pain, status post fall. RESULT: Three views of the left wrist demonstrate a comminuted distal radiusfracture with fracture fragments entering the radiocarpal and distalradioulnar joint. Mild dorsal angulation is present. The distal ulna andthe carpal bones appear normal. IMPRESSION: 1. MILDLY ANGULATED COMMINUTED DISTAL LEFT RADIUS FRACTURE. Interpreting Physician: DR CHRISTIANNE LEE M.D. Read on: Dec 21 20158:12P Transcribed by: elliot On: Dec 21 2015 8:12P Approved Electronically by: ROSA Anthony, DR FAUST on: Jan 01 20166:39A Attending: PEDRO SOLIMAN Requesting: PEDRO SOLIMAN Requesting Fax: -- Attending Attending ID: [id number] Requesting ID: [id number] Report To 1 ID: [id number] Report To 1 Name: PEDRO SOLIMAN Report To 1 FAX: -- NextGen Order #: us Historical Provider IMG XR PROCEDURES Final R esult documented in this encounter Visit Diagnoses Diagnosis Closed fracture of lower end of left radius Fall Unspecified fall Non-institutional private residence as place of occurrence of external cause documented in this encounter Care Teams Federal Judge Relationship Specialty Start Date End Date Clary Xavier MD [address] [place] [id number] PCP - General 08/21/12 02/04/17 documented as of this encounter
--- OUTSIDE RECORDS SUMMARY | 2024-10-20 04:01 | XMS_ITS | Encounter Summary ---
Author Organization [facility] Healthcare Address [address] [place] [address] Care Team Providers Care Dianetic Counselor Name Role Phone Clary Xavier MD Primary Care Provider [phone] Encounter Details Date Type Department Care Team (Late st Contact Info) Description 03/29/2016 6:07 AM CDT - 03/29/2016 7:35 AM T Hospital Encounter [facility] CLINCON[facility] Dodson MD [address] [place] [id number] Otitis externa of right ear; Impacted cerumen of right ear; Essential (primary) hypertension; Acquired absence of both cervix and uterus; Myringotomy tube status; Tubal ligation status; Allergy status to penicillin; Hormone replacement therapy (postmenopausal); 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 (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 therapy Social History Tobacco Use Types Packs/Day Years Used Date Smoking Tobacco: Never Alcohol Use Standard Drinks/Week Comments No 0 (1 standard drink = 0.6 oz pur e alcohol) Comments Unknown Sex and Gender Information Value Date Recorded Sex Assigned at Not on file 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 Gender Identity Not on file Sexual [...] as of this encounter Visit Diagnoses Diagnosis Otitis externa of right ear Impacted cerumen of right ear Impacted cerumen Essential (primary) hypertension Unspecified essential hypertension Acquired absence of both cervix and uterus Myringotomy tube status Tubal ligation status Allergy status to penicillin Hormone replacement therapy (postmenopausal) Other [place] (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 therapy documented in this encounter Care Teams Dianetic Counselor Relationship Specialty Start Date End Date Clary Xavier MD [address] [place] [address] PCP - General 08/21/12 02/04/17 documented as of this encounter
--- OUTSIDE RECORDS SUMMARY | 2024-10-20 04:01 | XMS_ITS | Encounter Summary ---
Author Organization [facility] Healthcare Address [address] [place] [address] Care Team Providers Care Harpsichord Maker Name Role Phone Clary Xavier MD Primary Care Provider [phone] Encounter Details Date Type Department Care Team (Late st Contact Info) Description 08/29/2016 7:52 AM OVERHEAD LINE WORKER - 08/29/2016 9:19 AM OVERHEAD LINE WORKER Hospital Encounter [facility] Lamont Cornelius MD [address] [place] [phone] Cellulitis of right upper extremity; Essential (primary) hypertension Social History Tobacco Use Types Packs/Day Years Used Date Smoking Tobacco: Never Alcohol Use Standard Drinks/Week Comments No 0 (1 standard drink = 0.6 oz pur e alcohol) Comments Unknown Sex and Gender Information Value Date Recorded Sex Assigned at Not on file 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 Gender Identity Not on file Sexual Orientation [...] route every day 0 0 05/02/2014 4 naproxen (NAPROSYN,ALEVE) 500 mg tablet take 1 tablet by oral route 2 times every day with food 30 0 05/21/2016 8 documented as of this encounter Plan of Treatment Not on file documented as of this encounter Visit Diagnoses Diagnosis Cellulitis of right upper extremity Essential (primary) hypertension Unspecified essential hypertension documented in this encounter Care Teams Harpsichord Maker Relationship Specialty Start Date End Date Clary Xavier MD [address] [place] [address] PCP - General 08/21/12 02/04/17 documented as of this encounter
--- OUTSIDE RECORDS SUMMARY | 2024-10-20 04:01 | XMS_ITS | Encounter Summary ---
Author Organization [facility] Healthcare Address [address] [place] [address] Care Team Providers Care Microfilm Processor Name Role Phone Miscellaneous, Not In File Primary Care Provider Unavailable Encounter Details Date Type Department Care Team (Latest Contact Info) Description 09/24/2017 11:28 AM HAND PRESSER - 09/24/2017 11:59 PM [facility] Hospital Encounter [facility] [phone] Amber Driscoll MD [address] [place] [address] Emily Bryan MD [address] [facility] [address] [place] [address] Discharge Disposition: Discharge to home or self care Social History Tobacco Use Types Packs/Day Years Used Date Smoking Tobacco: Never Smokeless Tobacco: Never Alcohol Use Standard Drinks/Week Comments No 0 (1 standard drink = 0.6 oz pur e alcohol) Comments Unknown Sex and Gender Information Value Date Recorded Sex Assigned at Not on file Legal Sex Female 2:14 AM HAND PRESSER Gender Identity Not on file Sexual Orientation [...] Priority Date/Time Associated Diagnosis Comments XR ANKLE 3+ VW Routine 09/24/2017 5:47 PM HAND PRESSER documented in this encounter Results * XR Ankle 3+ Vw (09/24/2017 5:47 PM HAND PRESSER) Anatomical Region Laterality Modality N/A Radiographic Dagmar ging 09/24/2017 5:47 PM HAND PRESSER Narrative 09/24/2017 6:07 PM HAND PRESSER Gabrielle VERMA FINAL REPORT ACC# ??Date Time ??Exam [id number] Sep 24, 2017 11:47:00 [id number] Ankle Complt. min 3 views R EXAMINATION: ??Right ankle complete minimum 3 views HISTORY: ??Right right ankle fractures follow-up FINDINGS: Three-view nonweightbearing examination of the right ankle is submitted for interpretation and compared to the prior examination on 08/13/2017. There is a healing reduced and internally fixated lateral malleolus fracture and a healing nondisplaced posterior malleolus fracture. The ankle mortise is intact. ??Soft tissue swelling about the ankle is improving. IMPRESSION: ??Healing reduced and internally fixated right lateral malleolus and nondisplaced posterior malleolus fractures. Electronically signed by: Onesimo Germain M.D. Requested By: MARILIN PEREZ ??Gabrielle Dictated By: ?? Gabrielle VERMA ??on Sep 24 2017 12:04P This document has been electronically signed by: Gabrielle VERMA on Sep 24 2017 12:04P [id number] VERMA FINAL REPORT Attending: ??ORION, ??EMILY Requesting: ??CHRIS, ??MARILIN Requesting Fax: ?? Attending Fax: ?? Attending ID: ??[id number] Requesting ID: ??[id number] Report To 1 ID: ??[id number] ? Report To 1 Name: ??, ?? Report To 1 FAX: ?? NextGen Order #: ?? Procedure Note Miscellaneous, Not In File - 09/24/2017 Gabrilele VERMA FINAL REPORT ACC# Date Time Exam [id number] Sep 24, 2017 11:47:00 [id number] Ankle Complt. min 3 views R EXAMINATION: Right ankle complete minimum 3 views HISTORY: Right right ankle fractures follow-up FINDINGS: Three-view nonweightbearing examination of the right ankle is submitted for interpretation and compared to the prior examination on 08/13/2017. There is a healing reduced and internally fixated lateral malleolus fracture and a healing nondisplaced posterior malleolus fracture. The ankle mortise is intact. Soft tissue swelling about the ankle is improving. IMPRESSION: Healing reduced and internally fixated right lateral malleolus and nondisplaced posterior malleolus fractures. Electronically signed by: Onesimo Germain M.D. Requested By: MARILIN PEREZ M.D. Dictated By: Gabrielle VERMA on Sep 24 2017 12:04P This document has been electronically signed by: Gabrielle VERMA on Sep 24 2017 12:04P [id number] VERMA FINAL REPORT Attending: EMILY BRYAN Requesting: MARILIN PEREZ Requesting Fax: Attending Fax: Attending ID: [id number] Requesting ID: [id number] Report To 1 ID: [id number] Report To 1 Name: , Report To 1 FAX: NextGen Order #: us Marilin Perez MD IMG XR PROCEDURES Final Result documented in this encounter Visit Diagnoses Not on filedocumented in this encounter Care Teams Microfilm Processor Relationship Specialty Start Date End Date Miscellaneous, Not In File PCP - General 07/09/17 documented as of this encounter
--- OUTSIDE RECORDS SUMMARY | 2024-10-20 04:01 | XMS_ITS | Encounter Summary ---
Author Organization [facility] Healthcare Address [address] [place] [address] Care Team Providers Care Document Control Manager Name Role Phone Miscellaneous, Not In File Primary Care Provider Unavailable Reason for Visit * Reason Comments Knee Pain Encounter Details Date Type Department Care Team (Late st Contact Info) Description 11/04/2018 8:10 AM SENIOR MEDIA PLANNER - 11/04/2018 9:40 AM SENIOR MEDIA PLANNER Emergency [facility] Emergency Department [address] [place] [address] Kenn Torres MD [address] [place] [address] Sprain of left knee, initial encounter (Primary Dx) Discharge Disposition: Discharge to home or self care Social History Tobacco Use Types Packs/Day Years Used Date Smoking Tobacco: Never Smokeless Tobacco: Never Alcohol Use Standard Drinks/Week Comments No 0 (1 standard drink = 0.6 oz pur e alcohol) Comments No Sex and Gender Information Value Date Recorded Sex Assigned at Not on file Legal Sex Female 2:14 AM SENIOR MEDIA PLANNER Gender Identity Not on file Sexual Orientation Not on file documented as of this encounter Last Filed Vital Signs Vital Sign Reading Time Taken Comments Blood Pressure 153/100 11/04/2018 8:27 AM SENIOR MEDIA PLANNER Pulse 78 11/04/2018 8:22 AM SENIOR MEDIA PLANNER Temperature 36.7 ??C (98 ??F) 11/04/2018 8:22 AM SENIOR MEDIA PLANNER Respiratory Rate 18 11/04/2018 8:22 AM SENIOR MEDIA PLANNER Oxygen Saturation 98% 11/04/2018 8:22 AM SENIOR MEDIA PLANNER Inhaled Oxygen Concentration - - Weight 90.7 kg (200 lb) 11/04/2018 8:22 AM SENIOR MEDIA PLANNER Height 160 cm (5' 3 ) 11/04/2018 8:22 AM SENIOR MEDIA PLANNER Body Mass Index 35.43 11/04/2018 8:22 AM SENIOR MEDIA PLANNER documented in this encounter Discharge Instructions * Discharge Instructions* Rei Aparicio PA - 11/04/2018 9:26 AM SENIOR MEDIA PLANNER [facility] Orthopedic Physicians: [facility] Dr. Arguelles, Dr. Cook, Dr Mckinley, Dr Landis, Dr. Kelly [address] [place] [address] ph# [phone] [facility], [facility]. Dr. Apple [facility] [place] [address] ph# [phone] [facility] [address] [place] [address] ph# [phone] Pre-hypertension/Hypertension: You are being informed that you may have pre- hypertension (blood pressure greater than 120/80) or Hypertension (blood pressure greater than 140/90) based on a blood pressure reading in the emergency department. I recommend that you call your primary care provider listed on your discharge instructions or a physician of your choice this week to arrange follow up for further evaluation of possible pre-hypertension or Hypertension OR MEDIA PLANNER * Attachments The following attachments cannot be sent through Care Everywhere. * Knee Sprain (Sprinkler Installer) (Romanian) documented in this encounter Medications at Time of Discharge amLODIPine (NORVASC) 10 mg tablet Take 1 tablet (10 mg total) by mouth daily 2 08/26/2018 cetirizine (ZyrTEC) 10 mg tablet TAKE 1 TABLET BY MOUTH EVERY DAY FOR COUGH/RUNNY NOSE 2 2017 HYDROcodone-acet aminophen (NORCO) 5-325 mg per tabletIndication [...] Tylenol with codeine alone 20 tablet 11/04/2018 meloxicam (MOBIC) 15 mg tablet Take 1 tablet (15 mg total) by mouth daily. 30 tablet 11/04/2018 0 azithromycin (ZITHROMAX) 250 mg tablet Take 2 tablets the first day, then 1 tablet daily for 4 days 6 tablet 09/06/2018 0 losartan (COZAAR) 25 mg tablet take 1 tablet by oral route every day 0 0 05/02/2014 4 documented as of this encounter Ordered Prescriptions Prescription Sig Dispense Quantity Refills Last Filled Start Date End Date traMADol (ULTRAM) 50 mg tablet Take 1 tablet (50 mg total) by mouth every 6 (six) hours. Take as directed for pain not relieved by meloxicam or Tylenol with codeine alone 20 tablet 11/04/2018 meloxicam (MOBIC) 15 mg tablet Take 1 tablet (15 mg total) by mouth daily. 30 tablet 11/04/2018 0 documented in this encounter Discharge Disposition Disposition Code Departure Means Destination Discharge to home or self care documented in this encounter ED Notes * Antonieta Amos RN - 11/04/2018 8:21 AM CST Patient states she was walking yesterday and twisted her left knee. Patient can ambulate. Patient states she heard a pop. Pedal pulse palpable. Movement and sensation present. Ice pack applied. OR MEDIA PLANNER * Rei Aparicio PA - 11/04/2018 8:21 AM CST HPI Chief Complaint Patient presents with ??? Knee Pain 43-year-old female presents with chief complaint of pain to the medial aspect of the left knee. Yesterday evening was walking and twisted it. Claims she felt a pop. Since then experiencing constant throbbing sharp pain aggravated by bending and weight-bearing. Nothing alleviates it. Radiates aroundthe knee at times. Gives the current pain a 9 on a 0-10 scale. Patient History Patient Active Problem List Diagnosis [...] Other Family history of Migraine; Social History Substance Use Topics ??? Smoking status: Never Smoker ??? Smokeless tobacco: Never Used ??? Alcohol use No Social History Social History Narrative ??? No narrative on file Review of Systems Review of Systems All other systems reviewed negative. All available allergies, past medical history, past surgical history, social history, and medications reviewed from the medical record, nursing notes, and with patient Physical Exam ED Triage Vitals Temp Pulse Resp BP SpO2 11/04/18 0822 11/04/18 0822 11/04/18 0822 11/04/18 0827 11/04/18 0822 36.7 ??C (98 ??F) 78 18 153/100 98 % Temp src Heart Rate Source Patient Position BP Location FiO2 (%) 11/04/18 0822 -- -- -- -- Temporal Physical Exam Constitutional: She is oriented to person, place, and time. She appears well- developed and well-nourished. HENT: Head: Normocephalic. Right Ear: External ear normal. Left Ear: External ear normal. Nose: Nose normal. Mouth/Throat: Oropharynx is clear and moist. Eyes: Pupils are equal, round, and reactive to light. Conjunctivae are normal. Neck: Normal range of motion. Cardiovascular: Normal rate, regular rhythm, normal heart sounds and intact distal pulses. Pulmonary/Chest: Effort normal and breath sounds normal. Musculoskeletal: Left knee exam - decreased active range of motion with flexion secondary to pain; tenderness by palpation along the medial joint line with some crepitus noted with flexion and extension without deformity, ecchymosis, swelling, erythema, or warmth; intact distal pulse, motor, and sensory; stable with drawer test; unable to tolerate Judith test. Neurological: She is alert and oriented to person, place, and time. Skin: Skin is warm and dry. Psychiatric: She has a normal mood and affect. Her behavior is normal. Judgment and thought contentnormal. Nursing note and vitals reviewed. [facility] ED Course as of Nov 04 925 Time: 11/04 911 Comment: Pre-hypertension/Hypertension: The patient has been informed that they may have pre-hypertension or Hypertension based on a blood pressure reading in the emergency department. I recommend that the patient call the primary care provider listed on their discharge instructions or a physician of their choice this week to arrange follow up for further evaluation of possible pre- hypertension or Hypertension. By: DANIA Gallo Time: 11/04 920 Comment: Discussed with pt all findings as well as plan of care. Pt understands and is agreeable with plan for discharge. All questions and concerns addressed By: DANIA Gallo Time: 11/04 925 Comment: Evaluation of the splint applied reveals excellent placement and proper immobilization. Exposed digits reveal good color. Sensation is intact. By: DANIA Gallo Sprain of left knee, initial encounter DANIA Gallo 11/04/18 0926 Cosigned by Kenn Torres MD at 11/08/2018 4:55 PM SENIOR MEDIA PLANNER OR MEDIA PLANNER OR MEDIA PLANNER Associated attestation - Kenn Torres MD - 11/08/2018 4:55 PM SENIOR MEDIA PLANNER ED Attestation Based on the medical record the care appears appropriate. documented in this encounter Plan of Treatment Not on file documented as of this encounter Procedures Procedure Name Priority Date/Time Associated Diagnosis Comments XR KNEE LEFT 4 OR MORE VIEWS ED 11/04/2018 8:43 AM SENIOR MEDIA PLANNER documented in this encounter Results * XR Knee Left 4 or More Views (11/04/2018 8:43 AM SENIOR MEDIA PLANNER) Anatomical Region Laterality Modality Lower Extremities, Knee Left Computed Radiography 11/04/2018 12:5 2 PM SENIOR MEDIA PLANNER Impressions 11/04/2018 1:41 PM SENIOR MEDIA PLANNER 1. ??Very mild medial and minimal patellofemoral compartment degenerative spurring. 2. ??No other left knee abnormality seen. Electronically signed by: Milan Kahn Jr., M.D. Narrative 11/04/2018 1:41 PM SENIOR MEDIA PLANNER XR KNEE LEFT 4 OR MORE VIEWS HISTORY: Walking yesterday, twisted knee and felt a pop. ??Pain to the medial aspect along the joint line. COMPARISON: Left knee on 04/30/2014. VIEWS: AP, lateral and 2 oblique views FINDINGS: No fracture, dislocation or bone destruction is seen. ??Very mild spurring is present at the medial compartment; minimal at the patellofemoral compartment. ??No knee joint effusion or soft tissue calcification is seen. Procedure Note Milan Kahn Jr., MD - 11/04/2018 XR KNEE LEFT 4 OR MORE VIEWS HISTORY: Walking yesterday, twisted knee and felt a pop. Pain to the medial aspect along the joint line. COMPARISON: Left knee on 04/30/2014. VIEWS: AP, lateral and 2 oblique views FINDINGS: No fracture, dislocation or bone destruction is seen. Very mild spurring is present at the medial compartment; minimal at the patellofemoral compartment. No knee joint effusion or soft tissue calcification is seen. IMPRESSION: 1. Very mild medial and minimal patellofemoral compartment degenerative spurring. 2. No other left knee abnormality seen. Electronically signed by: Milan Kahn Jr., M.D. Rei NAJERA IMG XR PROCEDURES Final Resu lt documented in this encounter Visit Diagnoses Diagnosis Sprain of left knee, initial encounter- Primary Sprain of left knee, initial encounter documented in this encounter Administered Medications Inactive Administered Medications - up to 3 most recent administrations Medication Order MAR Action Action Date Dose Rate Site ibuprofen (ADVIL,MOTRIN) tablet 800 mg 800 mg, oral, Once, On Fri11/04/18 at 0831, For 1 dose Given 11/04/2018 8:39 AM SENIOR MEDIA PLANNER 800 mg documented in this encounter Active and Recently Administered Medications Times are shown in SENIOR MEDIA PLANNER. Scheduled Medication Order 11/02/2018 11/03/2018 11/04/2018 ibuprofen (ADVIL,MOTRIN) tablet 800 mg (COMPLETED) 800 mg, oral, Once, On Fri11/04/18 at 0831, For 1 dose 0839 (Given - Provid er: Antonieta Amos RN) documented in this encounter Orders Medications Ordered That Bennett ht Not Have Been Administered Count Last Ordered Date First Ordered Date ibuprofen (ADVIL,MOTRIN) tablet 800 mg 1 Nursing Count Last Ordered Date First Orde red Date BRACE APPLICATION 1 11/04/2018 documented in this encounter Care Teams Document Control Manager Relationship Specialty Start Date End Date Miscellaneous, Not In File PCP - General 07/09/17 documented as of this encounter
--- OUTSIDE RECORDS SUMMARY | 2024-10-20 04:01 | XMS_ITS | Encounter Summary ---
Author Organization [facility] Healthcare Address [address] [place] [address] Care Team Providers Care Pricing Director Name Role Phone Clary Xavier MD Primary Care Provider [phone] Encounter Details Date Type Department Care Team (Late st Contact Info) Description 12/22/2015 1:32 PM CHANNEL EXECUTIVE - 12/22/2015 10:45 PM CHANNEL EXECUTIVE Hospital Encounter [facility] Jaret Morejon MD [address] [place] [address] [address] [address] Other intraarticular fracture of lower end of left radius, initial encounter for closed fracture; Fall on same level; Engages in activity; Unspecified place or not applicable Social History Tobacco Use Types Packs/Day Years Used Date Smoking Tobacco: Never Alcohol Use Standard Drinks/Week Comments No 0 (1 standard drink = 0.6 oz pur e alcohol) Comments Unknown Sex and Gender Information Value Date Recorded Sex Assigned at Not on file Legal Sex Female 2:14 AM CHANNEL EXECUTIVE Gender Identity Not on file Sexual Orientation [...] oral route every day 0 0 05/02/2014 11/25/201 8 estrogens conjugated, synthetic A, (CENESTIN) 0.3 mg tablet take 1 tablet by oral route every day 0 0 04/28/2013 8 losartan (COZAAR) 25 mg tablet take 1 tablet by oral route every day 0 0 01/18/2014 8 losartan (COZAAR) 25 mg tablet take 1 tablet by oral route every day 0 0 05/02/2014 4 documented as of this encounter Miscellaneous Notes * Op Note - Provider, MD Adolfo - 12/22/2015 10:45 PM CST OPERATIVE REPORT Patient: ISAMAR SOLIZ Account: [id number] Room No: G642-01 : 1975 Patient Type: IP Attend.: Jaret Mckinley M.D. Admit Date: 12/22/2015 Surg.: Jaret Mckinley M.D. Disch. Date: 12/22/2015 PATIENT DIAGNOSIS: Comminuted intraarticular left distal radius fracture with at least three fragments. PROCEDURE: Left open reduction, internal fixation of comminuted distal radius fracture. ANESTHESIA: General. DECOMMISSIONING WELL SITE MANAGER: Donna Reed who was essential throughout the procedure. SPECIMENS: None. ESTIMATED BLOOD LOSS: Minimal. COMPLICATIONS: None. DISCHARGE CONDITION: Stable. SURGEON: Jaret Mckinley M.D. OPERATIVE INDICATION: The patient suffered a fracture yesterday, was seen in the emergency room. She was seen and evaluated in the clinic today. We discussed treatment options including operative and nonoperative treatment. The patient elected to have the above-named procedure. Informed consent was obtained from the patient. The patient understood the risks and benefits of the procedure including , stroke, bleeding, infection, damage to nerves, arteries, veins, loss of limb, loss of life, rupture of tendons, malunion, nonunion, need for additional procedures, failure of hardware. Informed consent was obtained. Consent form was also signed. OPERATION IN DETAIL: The patient was taken to the operating room. General anesthetic was performed. She had a block preoperatively, said she had severe pain. Her left upper extremity was cleaned with alcohol and prepped and draped in sterile technique with ChloraPrep. Standard timeout was performed. Operative extremity was identified, also marked preoperatively. Marked out a standard Kelby approach to the wrist, reduced the fracture under fluoro and confirmed reduction was acceptable. Skin incision was made. Standard Kelby approach was performed. The SCR was retracted ulnarly and the pronator was carefully taken off the fracture site. The fracture was identified, reduced and held with K-wire which was confirmed under fluoro, and a standard distal Acumed plate was chosen. Placed a shaft screw bicortically, size 12, and confirmed it was in appropriate position with the distal K-wire. Placed four smooth pegs distally and an additional two locking screws proximally. Confirmed the length under fluoro. The central nonlock screw was changed from a 12 to a 10, and the wound was then irrigated with betadine, iced tea solution, and a liter of AOC. The pronator was then approximated back over the plate with an 0 Vicryl and then closed in layers with 3-0 Vicryl, 4-0 Monoderm, Dermabond, and a bulky volar splint was placed. The patient was extubated, taken to the recovery room in stable condition. Needle counts, sponge counts, instrument counts were correct at the end of the case. POSTOPERATIVE PLAN: The patient will be in a bulky splint for the first two weeks. She will follow up with Donna Reed, in two weeks for wound check and placed in a removable splint, start immediate hand range of motion, limited wrist range of motion for six weeks. She will then follow up with Anisha at six to eight weeks for an additional wound check to see if the fracture is healed well. If it is healed well at six to eight weeks, will discontinue the splint and start wrist range of motion. Thank you for allowing me to participate in this patient's care. Recommend calcium and vitamin D, at least 200 mg of calcium a day and at least 1500 I.U. of vitamin D a day. Electronically Authenticated by: Jaret Mckinley MD On 12/23/2015 06:42 PM CHANNEL EXECUTIVE Jaret Mckinley M.D. RIP/km TD: 12/23/2015 00:28 documented in this encounter Plan of Treatment Not on file documented as of this encounter Procedures Procedure Name Priority Date/Time Associated Diagnosis Comments XR WRIST 3+ VW Routine 12/22/2015 7:10 PM CHANNEL EXECUTIVE documented in this encounter Results * XR Wrist 3+ VW (12/22/2015 7:10 PM CHANNEL EXECUTIVE) Anatomical Region Laterality Modality N/A Radiographic Dagmar ging 12/22/2015 7:10 PM CHANNEL EXECUTIVE Narrative 12/23/2015 11:47 PM CHANNEL EXECUTIVE XR WRIST MIN 3 VIEWS L ??Acc#: ??[id number] NO CHARGE FLUORO DATE OF EXAM: ??Dec 22 2015 CLINICAL HISTORY: Distal left radial intraarticular fracture. RESULT: Thirty-two ??images of the left wrist were obtained in surgery using C-arm fluoroscope camera. ??These demonstrate placement of a plate along the anterior surface of the distal radius. ??Five screws transfix the distal end of the plate to the anterior surface of the radius. ??The proximal end of the plate is secured by three additional screws. ??Fracture fragments are in good position and alignment. ??Articulations appear intact at the wrist. IMPRESSION: 1. ??OPEN REDUCTION AND INTERNAL FIXATION OF INTRAARTICULAR DISTAL LEFT RADIUS FRACTURE, DESCRIBED. FLUOROSCOPY TIME FOR THE PROCEDURE WAS 33 SECONDS. Interpreting Physician: ??DR TAN PHILLIPS M.D. ??Read on: ??Dec 23 2015 10:31A Transcribed by: ??chanda ??On: Dec 23 2015 10:31A Approved Electronically by: ??ALAN Anthony, DR MADDOX ??on: ??Dec 23 2015 11:47P Attending: ??JARET MCKINLEY Requesting: ??JARET MCKINLEY Requesting Fax: ??[phone] Attending Fax: ??[phone] Attending ID: ??[id number] Requesting ID: ??[id number] Report To 1 ID: ??[id number] Report To 1 Name: ??JARET MCKINLEY Report To 1 FAX: ??[phone] NextGen Order #: Procedure Note Provider, MD Adolfo - 02/05/2017 XR WRIST MIN 3 VIEWS L Acc#: [id number] NO CHARGE FLUORO DATE OF EXAM: Dec 22 2015 CLINICAL HISTORY: Distal left radial intraarticular fracture. RESULT: Thirty-two images of the left wrist were obtained in surgery using C- armfluoroscope camera. These demonstrate placement of a plate along theanterior surface of the distal radius. Five screws transfix the distalend of the plate to the anterior surface of the radius. The proximal endof the plate is secured by three additional screws. Fracture fragmentsare in good position and alignment. Articulations appear intact at thewrist. IMPRESSION: 1. OPEN REDUCTION AND INTERNAL FIXATION OF INTRAARTICULAR DISTAL LEFTRADIUS FRACTURE, DESCRIBED. FLUOROSCOPY TIME FOR THE PROCEDURE WAS 33SECONDS. Interpreting Physician: DR TAN PHILLIPS M.D. Read on: Dec 23 201510:31A Transcribed by: [facility] On: Dec 23 2015 10:31A Approved Electronically by: ALAN Anthony, DR MADDOX on: Dec 23 201511:47P Attending: JARET MCKINLEY Requesting: JARET MCKINLEY Requesting Attending Attending ID: [id number] Requesting ID: [id number] Report To 1 ID: [id number] Report To 1 Name: JARET MCKINLEY Report To 1 FAX: [phone] NextGen Order #: Historical Provider MD FAJARDO XR PROCEDURES Final R esult documented in this encounter Visit Diagnoses Diagnosis Other intraarticular fracture of lower end of left radius, initial encounter for closed fracture Fall on same level Unspecified fall Engages in activity Unspecified place or not applicable documented in this encounter Care Teams Pricing Director Relationship Specialty Start Date End Date Clary Xavier MD [address] [place] [address] PCP - General 08/21/12 02/04/17 documented as of this encounter
--- OUTSIDE RECORDS SUMMARY | 2024-10-20 04:01 | XMS_ITS | Encounter Summary ---
Author Organization [facility] Healthcare Address [address] [place] [address] Care Team Providers Care Welding Machine Operator Friction Name Role Phone Clary Xavier MD Primary Care Provider [phone] Encounter Details Date Type Department Care Team (Late st Contact Info) Description 08/09/2016 8:00 AM CDT - 08/09/2016 9:42 AM CDT Hospital Encounter [facility] Kush Faustin MD [address] [facility] [place] [address] [place] [address] Sprain of right foot; Exposure to other specified factors, initial encounter; Activity, other specified; Unspecified place or not applicable; Essential (primary) hypertension Social History Tobacco Use Types Packs/Day Years Used Date Smoking Tobacco: Never Alcohol Use Standard Drinks/Week Comments No 0 (1 standard drink = 0.6 oz pur e alcohol) Comments Unknown Sex and Gender Information Value Date Recorded Sex Assigned at Not on file Legal Sex Female 2:14 AM CHEMICAL ENGINEERING TECHNOLOGIST Gender Identity Not on file Sexual Orientation [...] Name Priority Date/Time Associated Diagnosis Comments XR FOOT 3+ VW Routine 08/09/2016 8:55 AM CDT documented in this encounter Results * XR Foot 3+ Vw (08/09/2016 8:55 AM CDT) Anatomical Region Laterality Modality N/A Radiographic Dagmar ging 08/09/2016 8:55 AM CDT Narrative 08/09/2016 2:35 PM CDT XR Foot Min 3 Views R ??[id number] ??Acc#: ??[id number] DATE OF EXAM: ??Aug 09 2016 CLINICAL HISTORY: Pain on the top of the foot radiating to the lateral side after twisting the foot. RESULT: AP, lateral and oblique views of the right foot were obtained. Comparison with a prior study of 12/24/11 is performed. No acute fractures are seen. The joint spaces are well maintained. No lytic or blastic lesions are noted. IMPRESSION: NO ACUTE FRACTURE OR DISLOCATION. Interpreting Physician: ??ANDRA RIVAS M.D. ??Read on: ??Aug 09 2016 9:54A Transcribed by: ??TXD ??On: Aug 09 2016 12:38P Approved Electronically by: ??ANDRA RIVAS M.D. ??on: ??Aug 09 2016 2:35P Attending: ??KUSH GOMEZ Requesting: ??KUSH GOMEZ Requesting Fax: ??-- Attending Fax: ??-- Attending ID: ??[id number] Requesting ID: ??[id number] Report To 1 ID: ??[id number] Report To 1 Name: ??KUSH GOMEZ Report To 1 FAX: ??-- NextGen Order #: Procedure Note Provider, MD Adolfo - 02/19/2017 XR Foot Min 3 Views R [id number] Acc#: [id number] DATE OF EXAM: Aug 09 2016 CLINICAL HISTORY: Pain on the top of the foot radiating to the lateral side after twistingthe foot. RESULT: AP, lateral and oblique views of the right foot were obtained. Comparisonwith a prior study of 12/24/11 is performed. No acute fractures are seen.The joint spaces are well maintained. No lytic or blastic lesions arenoted. IMPRESSION: NO ACUTE FRACTURE OR DISLOCATION. Interpreting Physician: ANDRA RIVAS M.D. Read on: Aug 09 20169:54A Transcribed by: OTONIEL On: Aug 09 2016 12:38P Approved Electronically by: ANDRA RIVAS M.D. on: Aug 09 20162:35P Attending: KUSH GOMEZ Requesting: KUSH GOMEZ Requesting Fax: -- Attending Fax: -- Attending ID: [id number] Requesting ID: [id number] Report To 1 ID: [id number] Report To 1 Name: KUSH GOMEZ Report To 1 FAX: -- NextGen Order #: Historical Provider IMLuz Elena XR PROCEDURES Final R esult documented in this encounter Visit Diagnoses Diagnosis Sprain of right foot Exposure to other specified factors, initial encounter Activity, other specified Unspecified place or not applicable Essential (primary) hypertension Unspecified essential hypertension documented in this encounter Care Teams Welding Machine Operator Friction Relationship Specialty Start Date End Date Clary Xavier MD [address] [place] [address] PCP - General 08/21/12 02/04/17 documented as of this encounter
--- OUTSIDE RECORDS SUMMARY | 2024-10-20 04:01 | XMS_ITS | Encounter Summary ---
Author Organization [facility] Healthcare Address [address] [place] [address] Care Team Providers Care Manager Global Communications Name Role Phone No, Physician Primary Care Provider Unavailabl e Encounter Details Date Type Department Care Team (Late st Contact Info) Description 02/05/2017 8:14 AM CDT - 02/05/2017 9:01 AM CDT Emergency [facility] Emergency Department [address] [place] [address] Randi Bustos MD [address] [place] [address] Discharge Disposition: Discharge to home or self care Social History Tobacco Use Types Packs/Day Years Used Date Smoking Tobacco: Never Alcohol Use Standard Drinks/Week Comments No 0 (1 standard drink = 0.6 oz pur e alcohol) Comments Unknown Sex and Gender Information Value Date Recorded Sex Assigned at Not on file 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
--- OUTSIDE RECORDS SUMMARY | 2024-10-20 04:01 | XMS_ITS | Encounter Summary ---
Author Organization [facility] Healthcare Address [address] [place] [address] Care Team Providers Care Lens Finisher Name Role Phone Miscellaneous, Not In File Primary Care Provider Unavailable Encounter Details Date Type Department Care Team (Latest Contact Info) Description 07/09/2017 11:20 AM CDT - 07/09/2017 11:59 PM CDT Hospital Encounter [facility] [phone] Amber Driscoll MD [address] [place] [address] Emily Bryan MD [address] [facility] [address] [place] [address] Discharge Disposition: Discharge to home or self care Social History Tobacco Use Types Packs/Day Years Used Date Smoking Tobacco: Never Smokeless Tobacco: Never Alcohol Use Standard Drinks/Week Comments No 0 (1 standard drink = 0.6 oz pur e alcohol) Comments Unknown Sex and Gender Information Value Date Recorded Sex Assigned at Not on file 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 FINAL REPORT ACC# ??Date Time ??Exam [id number] Jul 09, 2017 12:16:00 [id number] Ankle Complt. min 3 views R EXAMINATION: ??Right ankle complete minimum 3 views HISTORY: ??Bimalleolar ankle fracture, follow-up FINDINGS: A three-view nonweightbearing examination of the right ankle is compared to the prior examination dated 06/19/2017. There is a healing, reduced and internally fixated intra-articular distal right fibular fracture. ??There is also a healing, intra-articular posterior malleolus fracture. ??Alignment is not substantially changed. IMPRESSION: ??Healing, reduced and internally fixated distal right fibula fracture and healing, reduced right posterior malleolus fracture. Electronically signed by: Emily Duenas M.D. Requested By: EMILY BRYAN ??Gabrielle ? Dictated By: ?? EMILY DUENAS M.D. ??on Jul 09 2017 12:31P This document has been electronically signed by: EMILY DUENAS M.D. on Jul 09 2017 12:31P [id number] DUENAS M.D. FINAL REPORT Attending: ??ORION, ??EMILY Requesting: ??ORION, ??EMILY Requesting Fax: ?? Attending Fax: ?? Attending ID: ??[id number] Requesting ID: ??[id number] Report To 1 ID: ??[id number] ? Report To 1 Name: ??, ?? Report To 1 FAX: ?? NextGen Order #: ?? Procedure Note Miscellaneous, Not In File / Provider, MD Adolfo - 07/09/2017 EMILY DUENAS M.D. FINAL REPORT ACC# Date Time Exam [id number] Jul 09, 2017 12:16:00 [id number] Ankle Complt. min 3 views R EXAMINATION: Right ankle complete minimum 3 views HISTORY: Bimalleolar ankle fracture, follow-up FINDINGS: A three-view nonweightbearing examination of the right ankle is compared to the prior examination dated 06/19/2017. There is a healing, reduced and internally fixated intra-articular distal right fibular fracture. There is also a healing, intra-articular posterior malleolus fracture. Alignment is not substantially changed. IMPRESSION: Healing, reduced and internally fixated distal right fibula fracture and healing, reduced right posterior malleolus fracture. Electronically signed by: Emily Duenas M.D. Requested By: EMILY BRYAN M.D. Dictated By: EMILY DUENAS M.D. on Jul 09 2017 12:31P This document has been electronically signed by: EMILY DUENAS M.D. on Jul 09 2017 12:31P [id number] DUENAS M.D. FINAL REPORT Attending: EMILY BRYAN Requesting: EMILY BRYAN Requesting Fax: Attending Fax: Attending ID: [id number] Requesting ID: [id number] Report To 1 ID: [id number] Report To 1 Name: , Report To 1 FAX: NextGen Order #: Emily Bryan MD IMG XR PROCEDURES Final Re sult documented in this encounter Visit Diagnoses Not on filedocumented in this encounter Care Teams Lens Finisher Relationship Specialty Start Date End Date Miscellaneous, Not In File PCP - General 07/09/17 documented as of this encounter
--- OUTSIDE RECORDS SUMMARY | 2024-10-20 04:01 | XMS_ITS | Encounter Summary ---
Author Organization [facility] Healthcare Address [address] [place] [address] Care Team Providers Care Jewel Bearing Turner Name Role Phone No, Physician Primary Care Provider [phone] Encounter Details Date Type Department Care Team (Late st Contact Info) Description 06/15/2017 3:54 PM CDT - 06/15/2017 7:46 PM CDT Emergency [facility] Emergency Department [address] [place] [address] Becky Garzon Discharge Disposition: Discharge to a short term hospital for IP Social History Tobacco Use Types Packs/Day Years Used Date Smoking Tobacco: Never Smokeless Tobacco: Never Alcohol Use Standard Drinks/Week Comments No 0 (1 standard drink = 0.6 oz pur e alcohol) Comments Unknown Sex and Gender Information Value Date Recorded Sex Assigned at Not on file 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 Gender Identity Not on file Sexual Orientation [...] Disposition Code Departure Means Destination Discharge to a short term hospital for IP documented in this encounter Plan of Treatment Not on file documented as of this encounter Procedures Procedure Name Priority Date/Time Associated Diagnosis Comments XR FOOT 3+ VW Routine 06/15/2017 10:42 PM CDT XR ANKLE 3+ VW Routine 06/15/2017 10:42 PM CDT documented in this encounter Results * XR Foot 3+ Vw (06/15/2017 10:42 PM CDT) Anatomical Region Laterality Modality N/A Radiographic Dagmar ging 06/15/2017 10:4 2 PM CDT Narrative 06/15/2017 10:42 PM CDT XR Foot Min 3 Views R ??[id number] ??Acc#: ??[id number] DATE OF EXAM: ??Sep ??2016 ?? XR Foot Min 3 Views R ??[id number] HISTORY: Fall. ??Right foot pain status post fall. COMPARISON: None available. FINDINGS: AP, lateral and oblique projections are obtained. ??A posterior fracture dislocation of the ankle is present. ??The osseous structures of the foot are otherwise normal. ??No additional fractures are identified. ??The joint spaces are normal. ??Diffuse soft tissue swelling is present. IMPRESSION: ?? 1. ??POSTERIOR FRACTURE DISLOCATION OF THE RIGHT ANKLE. 2. ??OTHERWISE NORMAL RIGHT FOOT. Electronically signed by: Maulik Zee M.D. Interpreting Physician: ??DR CHRISTIANNE LEE M.D. ??Read on: ??Sep ??3 2016 ?? 5:54P Transcribed by: ??PSC ??On: Sep ??2016 ??5:52P Approved Electronically by: ??ROSA Anthony, DR FAUST ??on: ??Sep ??2016 ?? 5:52P Ordering DR: BECKY GARZON Attending DR: DR VANESSA CONNORS Attending: ??DR VANESSA CONNORS Requesting: ??BECKY GARZON Requesting Fax: ??-- Attending Fax: ??-- Attending ID: ??[id number] Requesting ID: ??[id number] Report To 1 ID: ??[id number] Report To 1 Name: ??DR VANESSA CONNORS Report To 1 FAX: ??-- NextGen Order #: ?? Procedure Note Miscellaneous, Not In File / Provider, MD Adolfo - 06/15/2017 XR Foot Min 3 Views R [id number] Acc#: [id number] DATE OF EXAM: Jun 15 2017 XR Foot Min 3 Views R [id number] HISTORY: Fall. Right foot pain status post fall. COMPARISON: None available. FINDINGS: AP, lateral and oblique projections are obtained. A posterior fracture dislocation of the ankle is present. The osseous structures of the foot are otherwise normal. No additional fractures are identified. The joint spaces are normal. Diffuse soft tissue swelling is present. IMPRESSION: 1. POSTERIOR FRACTURE DISLOCATION OF THE RIGHT ANKLE. 2. OTHERWISE NORMAL RIGHT FOOT. Electronically signed by: Maulik Zee M.D. Interpreting Physician: DR CHRISTIANNE LEE M.D. Read on: Jun 15 2017 5:54P Transcribed by: EMILIA On: Jun 15 2017 5:52P Approved Electronically by: ROSA Anthony, DR FAUST on: Jun 15 2017 5:52P Ordering DR: BECKY GARZON Attending DR: DR VANESSA CONNORS Attending: DR VANESSA CONNORS Requesting: BECKY GARZON Requesting Fax: -- Attending Fax: -- Attending ID: [id number] Requesting ID: [id number] Report To 1 ID: [id number] Report To 1 Name: DR VANESSA CONNORS Report To 1 FAX: -- NextGen Order #: us Not In File Miscellaneous IMG XR PROCEDURES Serene l Result * XR Ankle 3+ Vw (06/15/2017 10:42 PM CDT) Anatomical Region Laterality Modality N/A Radiographic Dagmar ging 06/15/2017 10:4 2 PM CDT Narrative 06/15/2017 10:42 PM CDT XR Ankle Min 3 Views R ??[id number] ??Acc#: ??[id number] DATE OF EXAM: ??Jun ??2016 ?? XR Ankle Min 3 Views R ??[id number] HISTORY: Fall. ??Right ankle pain status post fall. COMPARISON: 01/05/2012 FINDINGS: AP, lateral and oblique projections are obtained. ??There is a posterior fracture dislocation of the right ankle. ??A posterior malleolar avulsion fracture as well as an oblique distal fibular fracture is present. ??No obvious tibial fracture is identified. Diffuse soft tissue swelling is present. IMPRESSION: ??POSTERIOR DISLOCATION OF THE RIGHT ANKLE WITH ASSOCIATED DISTAL FIBULAR AND POSTERIOR MALLEOLAR FRACTURES. Electronically signed by: Maulik Zee M.D. Interpreting Physician: ??DR CHRISTIANNE LEE M.D. ??Read on: ??Sep ??3 2017 ?? 5:53P Transcribed by: ??PSC ??On: Jun ??3 2017 ??5:51P Approved Electronically by: ??ROSA Anthony, DR FAUST ??on: ??Sep ??3 2017 ?? 5:51P Ordering DR: BECKY GARZON Attending DR: DR VANESSA CONNORS Attending: ??DR VANESSA CONNORS Requesting: ??BECKY GARZON Requesting Fax: ??-- Attending Fax: ??-- Attending ID: ??[id number] Requesting ID: ??[id number] Report To 1 ID: ??[id number] Report To 1 Name: ??DR VANESSA CONNORS Report To 1 FAX: ??-- NextGen Order #: ?? Procedure Note Miscellaneous, Not In File / Provider, MD Adolfo - 06/15/2017 XR Ankle Min 3 Views R [id number] Acc#: [id number] DATE OF EXAM: Jun 15 2017 XR Ankle Min 3 Views R [id number] HISTORY: Fall. Right ankle pain status post fall. COMPARISON: 01/05/2012 FINDINGS: AP, lateral and oblique projections are obtained. There is a posterior fracture dislocation of the right ankle. A posterior malleolar avulsion fracture as well as an oblique distal fibular fracture is present. No obvious tibial fracture is identified. Diffuse soft tissue swelling is present. IMPRESSION: POSTERIOR DISLOCATION OF THE RIGHT ANKLE WITH ASSOCIATED DISTAL FIBULAR AND POSTERIOR MALLEOLAR FRACTURES. Electronically signed by: Maulik Zee M.D. Interpreting Physician: DR CHRISTIANNE LEE M.D. Read on: Jun 15 2017 5:53P Transcribed by: PSC On: Jun 15 2017 5:51P Approved Electronically by: DR CHRISTIANNE LEE M.D. on: Jun 15 2017 5:51P Ordering DR: BECKY GARZON Attending DR: DR VANESSA CONNORS Attending: DR VANESSA CONNORS Requesting: BECKY GARZON Requesting Fax: -- Attending Fax: -- Attending ID: [id number] Requesting ID: [id number] Report To 1 ID: [id number] Report To 1 Name: CONNORS, DR VANESSA Report To 1 FAX: -- NextGen Order #: us Not In File Miscellaneous IMG XR PROCEDURES Serene l Result documented in this encounter Visit Diagnoses Not on filedocumented in this encounter Care Teams Jewel Bearing Turner Relationship Specialty Start Date End Date No, Physician PCP - General 06/15/17 07/08/17 documented as of this encounter
--- OUTSIDE RECORDS SUMMARY | 2024-10-20 04:01 | XMS_ITS | Encounter Summary ---
Author Organization [facility] Address [address] [place] [address] Care Team Providers Care Counter Supply Worker Name Role Phone No, Physician Primary Care Provider Unavailabl e Encounter Details Date Type Department Care Team (Late st Contact Info) Description 06/10/2017 Telephone [facility] [address] [phone] Mary Cárdenas RMA Social History Tobacco Use Types Packs/Day Years Used Date Smoking Tobacco: Never Smokeless Tobacco: Never Alcohol Use Standard Drinks/Week Comments No 0 (1 standard drink = 0.6 oz pur e alcohol) Comments Unknown Sex and Gender Information Value Date Recorded Sex Assigned at Not on file 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 Patient called and notified order faxed to [facility]. documented in this encounter Plan of Treatment Not on file documented as of this encounter Visit Diagnoses Not on filedocumented in this encounter Care Teams Counter Supply Worker Relationship Specialty Start Date End Date NO, PHYSICIAN PCP - General 02/05/17 06/14/17 documented as of this encounter
--- OUTSIDE RECORDS SUMMARY | 2024-10-20 04:01 | XMS_ITS | Encounter Summary ---
Author Organization [facility] Address [address] [place] [address] Care Team Providers Care Wildlife Biology Internship Name Role Phone Clary Xavier MD Primary Care Provider [phone] Encounter Details Date Type Department Care Team (Late st Contact Info) Description 04/10/2016 8:53 AM CDT - 05/20/2016 11:59 PM CDT Hospital Encounter [facility] Jaret Morejon MD [address] [place] [address] [address]BDULIA [address] [place] [address] Anibal Garces II, PA [address] [place] [address] Other intraarticular fracture of lower end of left radius, subsequent encounter for closed fracture with routine healing; Exposure to other specified factors, subsequent encounter Social History Tobacco Use Types Packs/Day Years Used Date Smoking Tobacco: Never Alcohol Use Standard Drinks/Week Comments No 0 (1 standard drink = 0.6 oz pur e alcohol) Comments Unknown Sex and Gender Information Value Date Recorded Sex Assigned at Not on file 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
--- OUTSIDE RECORDS SUMMARY | 2024-10-20 04:01 | XMS_ITS | Encounter Summary ---
Author Organization [facility] Healthcare Address [address] [place] [address] Care Team Providers Care Ocean Freight Agent Name Role Phone Miscellaneous, Not In File Primary Care Provider Unavailable Reason for Visit * Reason Comments Cough Encounter Details Date Type Department Care Team (Late st Contact Info) Description 09/06/2018 8:16 AM MOTEL KEEPER - 09/06/2018 9:22 AM MOTEL KEEPER Emergency [facility] Emergency Department [address] [place] [address] Sandro Adler MD [address] [place] [address] Upper respiratory tract infection, unspecified type (Primary Dx) Discharge Disposition: Discharge to home or self care Social History Tobacco Use Types Packs/Day Years Used Date Smoking Tobacco: Never Smokeless Tobacco: Never Alcohol Use Standard Drinks/Week Comments No 0 (1 standard drink = 0.6 oz pur e alcohol) Comments No Sex and Gender Information Value Date Recorded Sex Assigned at Not on file Legal Sex Female 2:14 AM MOTEL KEEPER Gender Identity Not on file Sexual Orientation Not on file documented as of this encounter Last Filed Vital Signs Vital Sign Reading Time Taken Comments Blood Pressure 139/108 09/06/2018 8:29 AM MOTEL KEEPER Pulse 82 09/06/2018 8:29 AM MOTEL KEEPER Temperature 36.4 ??C (97.5 ??F) 09/06/2018 8:29 AM CS T Respiratory Rate 20 09/06/2018 8:29 AM MOTEL KEEPER Oxygen Saturation 98% 09/06/2018 8:29 AM MOTEL KEEPER Inhaled Oxygen Concentration - - Weight 90.7 kg (200 lb) 09/06/2018 8:29 AM MOTEL KEEPER Height 160 cm (5' 3 ) 09/06/2018 8:29 AM MOTEL KEEPER Body Mass Index 35.43 09/06/2018 8:29 AM MOTEL KEEPER documented in this encounter Discharge Instructions * Attachments The following attachments cannot be sent through Care Everywhere. * Upper Respiratory Infection (Regulatory Affairs Director) (Portuguese) documented in this encounter Medications at Time of Discharge amLODIPine (NORVASC) 10 mg tablet Take 1 tablet (10 mg total) by mouth daily 2 08/26/2018 cetirizine (ZyrTEC) 10 mg tablet TAKE 1 TABLET BY MOUTH EVERY DAY FOR COUGH/RUNNY NOSE 2 2017 HYDROcodone-aceta minophen (NORCO) 5-325 mg per tabletIndications :Pain Take 1-2 tablets by mouth every 4 (four) hours as needed for other (Cough). Do not exceed 8 tablets/day. 12 tablet 09/06/2018 sertraline (ZOLOFT) 100 mg tablet TAKE 1.5 TABLETS BY MOUTH DAILY 0 05/13/2017 azithromycin (ZITHROMAX) 250 mg tablet Take 2 tablets the first day, then 1 tablet daily for 4 days 6 tablet 09/06/2018 11/11/2019 losartan (COZAAR) 25 mg tablet take 1 tablet by oral route every day 0 0 05/02/2014 08/14/2024 documented as of this encounter Ordered Prescriptions Prescription Sig Dispense Quantity Refills Last Filled Start Date End Date HYDROcodone-acetam inophen (NORCO) 5-325 mg per tabletIndications: Pain Take 1-2 tablets by mouth every 4 (four) hours as needed for other (Cough). Do not exceed 8 tablets/day. 12 tablet 09/06/2018 azithromycin (ZITHROMAX) 250 mg tablet Take 2 tablets the first day, then 1 tablet daily for 4 days 6 tablet 09/06/2018 0 documented in this encounter Discharge Disposition Disposition Code Departure Means Destination Discharge to home or self care documented in this encounter ED Notes * Sandro Adler MD - 09/06/2018 8:55 AM CST HPI Chief Complaint Patient presents with ??? Cough 8:48 AM Melinda Olmedo is a 43 y.o. female with h/o HTN, tension headache, and hysterectomy who presents to the ED for evaluation of productive cough and congestion which began 2 weeks ago and had gotten worse the last 2 days. The pt states that her back is hurting from coughing . The pt reportsassociated sx of coughing up clear sputum and a fever of 101.The pt denies smoking, or any other pertinent sx at this time. Patient has taken tylenol, Nyquil, and ibuprofen with no relief. Patient History Patient Active Problem List Diagnosis Date Noted ??? Periodic limb movement disorder 01/17/2014 Class: [...] Review of Systems Constitutional: Positive for fever. Negative for chills. HENT: Positive for congestion. Negative for ear pain and sore throat. Eyes: Negative for pain and visual disturbance. Respiratory: Positive for cough. Negative for shortness of breath. Cardiovascular: Negative for chest pain and palpitations. Gastrointestinal: Negative for abdominal pain and vomiting. Genitourinary: Negative for dysuria and hematuria. Musculoskeletal: Positive for back pain (Back pain from coughing.). Negative for arthralgias. Skin: Negative for color change and rash. Neurological: Negative for seizures and syncope. All other systems reviewed and are negative. Physical Exam ED Triage Vitals [09/06/18 0829] Temp Pulse Resp BP SpO2 36.4 ??C (97.5 ??F) 82 20 (!) 139/108 98 % Temp src Heart Rate Source Patient Position BP Location FiO2 (%) Temporal -- -- -- -- Physical Exam Constitutional: She is oriented to person, place, and time. She appears well- developed and well-nourished. No distress. HENT: Head: Normocephalic and atraumatic. Eyes: Pupils are equal, round, and reactive to light. Conjunctivae and EOM are normal. Neck: Normal range of motion. Neck supple. Cardiovascular: Normal rate and regular rhythm. No murmur heard. Pulmonary/Chest: Effort normal and breath sounds normal. No respiratory distress. Abdominal: Soft. There is no tenderness. Musculoskeletal: Normal range of motion. She exhibits no edema. Neurological: She is alert and oriented to person, place, and time. Skin: Skin is warm and dry. Psychiatric: She has a normal mood and affect. Her behavior is normal. Nursing note and vitals reviewed. [facility] Vitals: 09/06/18 0829 BP: (!) 139/108 Pulse: 82 Resp: 20 Temp: 36.4 ??C (97.5 ??F) TempSrc: Temporal SpO2: 98% Weight: 90.7 kg (200 lb) Height: 160 cm (5' 3 ) Labs Reviewed - No data to display XR Chest Pa Lateral 2 Views (Results Pending) [facility] ED Course as of Sep 06 920 Time: 09/06 0854 Comment: Pre-hypertension/Hypertension: The patient has been informed that they may have pre-hypertension or Hypertension based on a blood pressure reading in the Emergency Department. I recommend that the patient call the primary care provider listed on their discharge instructions or a physician of their choice this week to arrange follow up for further evaluation of possible pre- hypertension or Hypertension. By: Ashtyn Mckenna Upper respiratory tract infection, unspecified type This note was prepared by Ashtyn Mckenna, acting as a Scribe for Sandro Adler MD. I electronically signed this note at 8:55 AM on 09/06/2018. I, Sandro Adler MD, personally performed the services described in this documentation, reviewed and edited the documentation which was dictated to the scribe in my presence, and it accurately records my words and actions. Sandro Adler MD 09/06/18 0920 L KEEPER * María Silva RN - 09/06/2018 8:28 AM CST Patient presents to the emergency room for evaluation of cough and congestion over the last two days. Patient in no distress. L KEEPER documented in this encounter Plan of Treatment Not on file documented as of this encounter Procedures Procedure Name Priority Date/Time Associated Diagnosis Comments XR CHEST PA LATERAL 2 VIEWS ED 09/06/2018 8:48 AM MOTEL KEEPER documented in this encounter Results * XR Chest Pa Lateral 2 Views (09/06/2018 8:48 AM MOTEL KEEPER) Anatomical Region Laterality Modality Body, Chest N/A Computed Radiogr aphy 09/06/2018 9:49 AM MOTEL KEEPER Impressions 09/06/2018 9:50 AM MOTEL KEEPER NO ACUTE PULMONARY DISEASE. Electronically signed by: Rei Glasgow M.D [facility] 09/06/2018 9:50 AM MOTEL KEEPER XR CHEST PA LATERAL 2 VIEWS HISTORY: cough. ??Congestion. ??Difficulty breathing. TECHNIQUE: PA and lateral projections. COMPARISON: 11/16/2005. FINDINGS: Heart size is normal. ??No infiltrate or effusion identified. Procedure Note Rei Glasgow MD - 09/06/2018 XR CHEST PA LATERAL 2 VIEWS HISTORY: cough. Congestion. Difficulty breathing. TECHNIQUE: PA and lateral projections. COMPARISON: 11/16/2005. FINDINGS: Heart size is normal. No infiltrate or effusion identified. IMPRESSION: NO ACUTE PULMONARY DISEASE. Electronically signed by: Rei Glasgow M.D Sandro Adler MD IMG XR PROCEDURES Final Result documented in this encounter Visit Diagnoses Diagnosis Upper respiratory tract infection, unspecified type- Primary documented in this encounter Discontinued Medications Medication Sig Discontinue Reason Start Date End Da te naproxen (NAPROSYN,ALEVE) 500 mg tablet take 1 tablet by oral route 2 times every day with food Discontinued by another clinician 05/21/2016 09/06/2018 losartan-hydrochloroth iazide (HYZAAR) 100-25 mg per tablet Take 1 tablet by mouth daily. Discontinued by another clinician 05/13/2017 09/06/2018 losartan (COZAAR) 25 mg tablet take 1 tablet by oral route every day Discontinued by another clinician 01/18/2014 09/06/2018 guaiFENesin-codeine (ROBITUSSIN-AC) 20-2 mg/mL liquid TAKE 10 ML BY MOUTH EVERY 4 HOURS NEEDED COUGH Discontinued by another clinician 03/06/2017 09/06/2018 fluticasone (FLONASE) 50 mcg/actuation nasal spray INSTILL 2 SPRAYS IN EACH NOSTRIL DAILY. PLEASE ADVISE PATIENT TO CALL FOR APT FOR FUTURE REFILLS. Discontinued by another clinician 05/04/2017 09/06/2018 estrogens conjugated, synthetic A, (CENESTIN) 0.3 mg tablet take 1 tablet by oral route every day Discontinued by another clinician 04/28/2013 09/06/2018 estradiol (ESTRACE) 1 mg tablet take 1 tablet by oral route every day Discontinued by another clinician 05/02/2014 09/06/2018 estradiol (ESTRACE) 0.01 % (0.1 mg/gram) vaginal cream insert (1G) by vaginal route every week Discontinued by another clinician 01/18/2014 09/06/2018 acetaminophen-codeine (TYLENOL with CODEINE #3) 300-30 mg per tablet TAKE 1 TABLET BY MOUTH 3 TIMES A DAY NEEDED FOR PAIN WITH FOOD. FILL ON OR AFTER 05/15/17. Discontinued by another clinician 05/16/2017 09/06/2018 amLODIPine (NORVASC) 5 mg tablet Take 5 mg by mouth daily. Discontinued by another clinician 05/11/2017 09/06/2018 documented as of this encounter Historical Medications * This list may reflect changes made after this encounter. amLODIPine (NORVASC) 10 mg tablet Take 1 tablet (10 mg total) by mouth daily 2 08/26/2018 added in this encounter Care Teams Ocean Freight Agent Relationship Specialty Start Date End Date Miscellaneous, Not In File PCP - General 07/09/17 documented as of this encounter
--- OUTSIDE RECORDS SUMMARY | 2024-10-20 04:01 | XMS_ITS | Encounter Summary ---
Author Organization [facility] Healthcare Address [address] [place] [address] Care Team Providers Care Barrel Polisher Name Role Phone Clary Xavier MD Primary Care Provider Encounter Details Date Type Department Care Team (Late st Contact Info) Description 07/02/2016 10:18 AM CDT - 07/02/2016 10:43 AM CDT Hospital Encounter [facility] Lamont Cornelius MD [address] [place] [id number] Periapical abscess without sinus; Other snf (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 therapy; Allergy status to penicillin Social History Tobacco Use Types Packs/Day Years Used Date Smoking Tobacco: Never Alcohol Use Standard Drinks/Week Comments No 0 (1 standard drink = 0.6 oz pur e alcohol) Comments Unknown Sex and Gender Information Value Date Recorded Sex Assigned at Not on file Legal Sex Female 2:14 AM JET BLADE POLISHER Gender Identity Not on file Sexual Orientation [...] as of this encounter Visit Diagnoses Diagnosis Periapical abscess without sinus Other snf (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 therapy Allergy status to penicillin documented in this encounter Care Teams Barrel Polisher Relationship Specialty Start Date End Date Clary Xavier MD [address] [place] [address] PCP - General 08/21/12 02/04/17 documented as of this encounter
--- OUTSIDE RECORDS SUMMARY | 2024-10-20 04:01 | XMS_ITS | Encounter Summary ---
Author Organization [facility] Healthcare Address [address] [place] [address] Care Team Providers Care Talent Acquisition Director Name Role Phone Clary Xavier MD Primary Care Provider [phone] Encounter Details Date Type Department Care Team (Late st Contact Info) Description 09/10/2015 6:34 AM MACHINE SHOP APPRENTICE - 09/10/2015 7:30 AM [facility] Hospital Encounter [facility] Kenn Torres MD [address] [facility] [address] [place] [address] Injury of conjunctiva and corneal abrasion of left eye without foreign body; Striking against or struck by other objects, initial encounter; Unspecified place or not applicable; Allergy status to penicillin; Essential (primary) hypertension Social History Tobacco Use Types Packs/Day Years Used Date Smoking Tobacco: Never Alcohol Use Standard Drinks/Week Comments No 0 (1 standard drink = 0.6 oz pur e alcohol) Comments Unknown Sex and Gender Information Value Date Recorded Sex Assigned at Not on file Legal Sex Female 2:14 AM MACHINE SHOP APPRENTICE Gender Identity Not on file Sexual Orientation [...] as of this encounter Visit Diagnoses Diagnosis Injury of conjunctiva and corneal abrasion of left eye without foreign body Striking against or struck by other objects, initial encounter Unspecified place or not applicable Allergy status to penicillin Essential (primary) hypertension Unspecified essential hypertension documented in this encounter Care Teams Talent Acquisition Director Relationship Specialty Start Date End Date Clary Xavier MD [address] [place] [id number] PCP - General 08/21/12 02/04/17 documented as of this encounter
--- OUTSIDE RECORDS SUMMARY | 2024-10-20 04:01 | XMS_ITS | Encounter Summary ---
Author Organization [facility] Healthcare Address [address] [place] [address] Care Team Providers Care Continuous Mining Machine Operator Name Role Phone Miscellaneous, Not In File Primary Care Provider Unavailable Encounter Details Date Type Department Care Team (Latest Contact Info) Description 08/13/2017 1:01 PM CDT - 08/13/2017 11:59 PM CDT Hospital Encounter [facility] INTERIM [phone] Amber Driscoll MD [address] [place] [address] Emily Bryan MD [address] [facility] [address] [place] [address] Discharge Disposition: Discharge to home or self care Social History Tobacco Use Types Packs/Day Years Used Date Smoking Tobacco: Never Smokeless Tobacco: Never Alcohol Use Standard Drinks/Week Comments No 0 (1 standard drink = 0.6 oz pur e alcohol) Comments Unknown Sex and Gender Information Value Date Recorded Sex Assigned at Not on file Legal Sex Female 2:14 AM BATCH HEAT TREAT OPERATOR Gender Identity Not on file Sexual [...] Diagnosis Comments XR ANKLE 3+ VW Routine 08/13/2017 6:47 PM CDT documented in this encounter Results * XR Ankle 3+ Vw (08/13/2017 6:47 PM CDT) Anatomical Region Laterality Modality N/A Radiographic Dagmar ging 08/13/2017 6:47 PM CDT Narrative 08/13/2017 7:00 PM CDT HANS KIM M.D. FINAL REPORT ACC# ??Date Time ??Exam [id number] Aug 13, 2017 13:47:00 [id number] Ankle Complt. min 3 views R EXAMINATION: ??Right ankle complete minimum 3 views HISTORY: ??Bimalleolar right ankle fracture FINDINGS: A three-view examination of the right ankle is compared to prior examination dated 07/09/2017. ??There is a healing intra-articular distal fibular fracture reduced and internally fixated with a lateral plate and screws. ??The posterior malleolus fracture is obscured by the fibular plate. ??Heterotopic ossification in the lateral ankle ligaments is unchanged. ??The ankle mortise is normal. ??There is unchanged mild distal tibiofibular syndesmotic widening. IMPRESSION: ??1. ??Healing, reduced, internally fixated distal right fibular fracture. 2. ??Posterior malleolus fracture is obscured by the fibular plate. 3. ??Unchanged mild distal tibiofibular syndesmotic widening. Electronically signed by: Hans Kim M.D. Requested By: EMILY BRYAN ??M.D. ? Dictated By: ?? HANS KIM M.D. ??on Aug ??2016 ??1:58P This document has been electronically signed by: HANS KIM M.D. on Aug ??2016 ??1:58P [id number] KIM M.D. FINAL REPORT Attending: ??ORION, ??EMILY Requesting: ??ORION, ??EMILY Requesting Fax: ?? Attending Fax: ?? Attending ID: ??[id number] Requesting ID: ??[id number] Report To 1 ID: ??[id number] ? Report To 1 Name: ??, ?? Report To 1 FAX: ?? NextGen Order #: ?? Procedure Note Miscellaneous, Not In File - 08/13/2017 HANS KIM M.D. FINAL REPORT ACC# Date Time Exam [id number] Aug 13, 2017 13:47:00 [id number] Ankle Complt. min 3 views R EXAMINATION: Right ankle complete minimum 3 views HISTORY: Bimalleolar right ankle fracture FINDINGS: A three-view examination of the right ankle is compared to prior examination dated 07/09/2017. There is a healing intra-articular distal fibular fracture reduced and internally fixated with a lateral plate and screws. The posterior malleolus fracture is obscured by the fibular plate. Heterotopic ossification in the lateral ankle ligaments is unchanged. The ankle mortise is normal. There is unchanged mild distal tibiofibular syndesmotic widening. IMPRESSION: 1. Healing, reduced, internally fixated distal rightfibular fracture. 2. Posterior malleolus fracture is obscured by the fibular plate. 3. Unchanged mild distal tibiofibular syndesmotic widening. Electronically signed by: Hans Kim M.D. Requested By: EMILY BRYAN M.D. Dictated By: HANS KIM M.D. on Aug 13 2017 1:58P This document has been electronically signed by: HANS KIM M.D. on Aug 13 2017 1:58P [id number] KIM M.D. FINAL REPORT Attending: EMILY BRYAN Requesting: EMILY BRYAN Requesting Fax: Attending Fax: Attending ID: [id number] Requesting ID: [id number] Report To 1 ID: [id number] Report To 1 Name: , Report To 1 FAX: NextGen Order #: Emily Bryan MD IMG XR PROCEDURES Final Re sult documented in this encounter Visit Diagnoses Not on filedocumented in this encounter Care Teams Continuous Mining Machine Operator Relationship Specialty Start Date End Date Miscellaneous, Not In File PCP - General 9/27/17 1/29/ 20 documented as of this encounter
--- OUTSIDE RECORDS SUMMARY | 2024-10-20 04:01 | XMS_ITS | Encounter Summary ---
Author Organization [facility] Healthcare Address [address] [place] [address] Care Team Providers Care Diesel Truck Crane Operator Name Role Phone Clary Xavier MD Primary Care Provider [phone] Encounter Details Date Type Department Care Team (Late st Contact Info) Description 09/02/2016 7:55 AM COMPUTER SALESPERSON RETAIL - 09/02/2016 9:06 AM COMPUTER SALESPERSON RETAIL Hospital Encounter [facility] Kush Faustin MD [address] [facility] [address] [place] [address] Cutaneous abscess of right upper extremity Social History Tobacco Use Types Packs/Day Years Used Date Smoking Tobacco: Never Alcohol Use Standard Drinks/Week Comments No 0 (1 standard drink = 0.6 oz pur e alcohol) Comments Unknown Sex and Gender Information Value Date Recorded Sex Assigned at Not on file Legal Sex Female 2:14 AM COMPUTER SALESPERSON RETAIL Gender Identity Not on file Sexual Orientation [...] as of this encounter Visit Diagnoses Diagnosis Cutaneous abscess of right upper extremity documented in this encounter Care Teams Diesel Truck Crane Operator Relationship Specialty Start Date End Date Clary Xavier MD [address] [place] [id number] PCP - General 08/21/12 02/04/17 documented as of this encounter
--- OUTSIDE RECORDS SUMMARY | 2024-10-20 04:01 | XMS_ITS | Encounter Summary ---
Author Organization [facility] Address [address] [place] [address] Care Team Providers Care Appliance Sales Associate Name Role Phone No, Physician Primary Care Provider Unavailabl e Reason for Visit * Reason Comments Pain Encounter Details Date Type Department Care Team (Late st Contact Info) Description 06/02/2017 2:00 PM CDT Office Visit [facility] Orthopedics and Sports Medicine [address] [place] [id number] Ebenezer Teran PA [address] [facility] [address] [place] [address] Carpal tunnel syndrome of right wrist (Primary Dx); De Quervain's tenosynovitis; Right wrist pain Social History Tobacco Use Types Packs/Day Years Used Date Smoking Tobacco: Never Smokeless Tobacco: Never Alcohol Use Standard Drinks/Week Comments No 0 (1 standard drink = 0.6 oz pur e alcohol) Comments Unknown Sex and Gender Information Value Date Recorded Sex Assigned at Not on file 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 Gender Identity Not on file Sexual Orientation Not on file documented as of this encounter Last Filed Vital Signs Vital Sign Reading Time Taken Comments Blood Pressure 134/94 06/02/2017 1:58 PM CDT Pulse 70 06/02/2017 1:58 PM CDT Temperature - - Respiratory Rate - - Oxygen Saturation - - Inhaled Oxygen Concentration - - Weight 107 kg (236 lb) 06/02/2017 1:58 PM CDT Height 160 cm (5' 3 ) 06/02/2017 1:58 PM CDT Body Mass Index 41.81 06/02/2017 1:58 PM CDT documented in this encounter Progress Notes * Ebenezer Teran PA - 06/02/2017 2:00 PM CDT NEW PATIENT VISIT Subjective CHIEF COMPLAINT She had concerns including Pain of the Right Wrist. HISTORY OF PRESENT ILLNESS Wrist Pain Patient complaints of right wrist pain. This is evaluated as a personal injury. The pain began 2 months ago. The pain is located primarily in the dorsal area, radial area. She describes the symptoms as aching, burning and sharp. Symptoms improve with rest. The symptoms are worse with use of injuredarea. The patient does not have neck pain. The patient is active in ADLs. Treatment to date has been ice, Tylenol, NSAID's, without significant relief. Pain Assessment Pain Assessment: 0-10 Pain Score: 7 PAST MEDCIAL HISTORY She has a past medical history of OTHER MEDICAL; Hypertension; and Tension headache. PAST SURGICAL HISTORY She has a past surgical history that includes Hysterectomy (2010) and Hysterectomy. MEDICATIONS She has a current medication list which includes the following prescription(s): acetaminophen-codeine, amlodipine, cetirizine, estrace, estradiol, cenestin, fluticasone, guaifenesin-codeine, losartan, losartan, losartan- hydrochlorothiazide, naproxen, and sertraline. ALLERGIES She is allergic to penicillins. SOCIAL HISTORY She reports that she has never smoked. She has never used smokeless tobacco. She reports that she does not drink alcohol or use drugs. FAMILY HISTORY Her family history includes Diabetes in her father; Hypertension in her father, mother, and other; Migraines in her mother and other. REVIEW OF SYSTEMS Review of Systems Constitutional: Negative for activity change, appetite change, chills and fever. HENT: Negative for congestion, dental problem, ear pain, hearing loss and voice change. Eyes: Negative for pain and visual disturbance. Respiratory: Negative for apnea, cough, chest tightness and shortness of breath. Cardiovascular: Negative for chest pain, palpitations and leg swelling. Gastrointestinal: Negative for blood in stool, constipation, diarrhea, nausea and vomiting. Endocrine: Negative for cold intolerance and heat intolerance. Genitourinary: Negative for difficulty urinating and hematuria. Skin: Negative for color change, rash and wound. Allergic/Immunologic: Negative for environmental allergies. Neurological: Negative for dizziness, syncope, numbness and headaches. Hematological: Negative for adenopathy. Does not bruise/bleed easily. Psychiatric/Behavioral: Negative for confusion. The patient is not nervous/anxious and is not hyperactive. Objective PHYSICAL EXAM BP 134/94 Pulse 70 Ht 160 cm (5' 3 ) Wt 107 kg (236 lb) BMI 41.81 kg/m?? Right hand/wrist Inspection The patient has normal inspection of the right hand and wrist. Intrinsic atrophy: absent. Thenar atrophy: absent Palpation Tenderness: present. The tenderness is located in the dorsal area, radial area and first compartment. Range of motion The patient has reduced range of motion of the right wrist. Th patient has normal range of motion of the fingers on the right hand. Stability The patient has normal stability of the right hand and wrist. Strength The patient has 5/5 strength throughout with exceptions as noted below. Wrist extension: 4/5 Wrist flexion: 5/5 APB: 3/5 Manager Clinical Research: 4/5 Neurovascular The patient has normal vascular on the right side of their body. The patient has normal sensation on the right side of their body. Median: decreased Test Phalen's sign: positive Tinel's sign: positive Morales's test: positive Median nerve compression: positive Left hand/wrist Strength The patient has 5/5 strength throughout with exceptions as noted below. REVIEW OF X-RAYS/STUDIES/LABS XR Wrist Right 3 or More Views X-ray of the right wrist viewed and interpreted. There is no evidence of fracture, subluxation, or bony abnormality. Assessment/Plan Melinda was seen today for pain. Diagnoses and all orders for this visit: Right wrist pain - XR Wrist Right 3 or More Views Procedures PLAN We will get an EMG/NCV test and she will follow up with Dr Mckinley for the results and possible CTRand 1st dorsal compartment release. She was fitted with a thumb spica split today to help with her discomfort, she will wear this at all times. All questions were addressed today and the patient was instructed to call the office with any questions or concerns. DANIA Franco Cosigned by Jaret Mckinley MD at 06/03/2017 3:18 PM CDT documented in this encounter Miscellaneous Notes * Addendum Note - Raquel Mares MA - 06/02/2017 2:00 PM CDTAddended by: RAQUEL MARES on: 06/02/2017 02:20 PM Modules accepted: Orders documented in this encounter Plan of Treatment [...] evidence of fracture, subluxation, or bony abnormality. Ebenezer NAJERA IMG XR PROCEDURES Final Res ult documented in this encounter Visit Diagnoses Diagnosis Carpal tunnel syndrome of right wrist- Primary De Quervain's tenosynovitis Radial styloid tenosynovitis Right wrist pain Pain in joint, forearm documented in this encounter Discontinued Medications Medication Sig Discontinue Reason Start Date End Da te citalopram (CeleXA) 10 mg/5 mL suspension take 10 milliliter by oral route every day Duplicate order 01/18/2014 06/02/2017 ibuprofen (ADVIL,MOTRIN) 800 mg tablet TAKE 1 TABLET(S) 3 TIMES A DAY BY ORAL ROUTE WITH MEALS. Duplicate order 04/03/2017 06/02/2017 documented as of this encounter Historical Medications * This list may reflect changes made after this encounter. sertraline (ZOLOFT) 100 mg tablet TAKE 1.5 TABLETS BY MOUTH DAILY 0 05/13/2017 cetirizine (ZyrTEC) 10 mg tablet TAKE 1 TABLET BY MOUTH EVERY DAY FOR COUGH/RUNNY NOSE 2 2017 losartan-hydrochl orothiazide (HYZAAR) 100-25 mg per tablet Take 1 tablet by mouth daily. 0 05/13/2017 09/06/2018 ibuprofen (ADVIL,MOTRIN) 800 mg tablet TAKE 1 TABLET(S) 3 TIMES A DAY BY ORAL ROUTE WITH MEALS. 3 04/03/2017 06/02/2017 fluticasone (FLONASE) 50 mcg/actuation nasal spray INSTILL 2 SPRAYS IN EACH NOSTRIL DAILY. PLEASE ADVISE PATIENT TO CALL FOR APT FOR FUTURE REFILLS. 2 05/04/2017 09/06/2018 guaiFENesin-codei ne (ROBITUSSIN-AC) 20-2 mg/mL liquid TAKE 10 ML BY MOUTH EVERY 4 HOURS NEEDED COUGH 0 03/06/2017 09/06/2018 amLODIPine (NORVASC) 5 mg tablet Take 5 mg by mouth daily. 5 05/11/2017 09/06/2018 acetaminophen-cod eine (TYLENOL with CODEINE #3) 300-30 mg per tablet TAKE 1 TABLET BY MOUTH 3 TIMES A DAY NEEDED FOR PAIN WITH FOOD. FILL ON OR AFTER 05/15/17. 0 05/16/2017 09/06/2018 added in this encounter Care Teams Appliance Sales Associate Relationship Specialty Start Date End Date NO, PHYSICIAN PCP - General 02/05/17 06/14/17 documented as of this encounter
--- OUTSIDE RECORDS SUMMARY | 2024-10-20 04:01 | XMS_ITS | Encounter Summary ---
Author Organization [facility] Address [address] [place] [address] Care Team Providers Care Biophysics Professor Name Role Phone Clary Xavier MD Primary Care Provider [phone] Encounter Details Date Type Department Care Team (Late st Contact Info) Description 04/03/2016 11:00 AM CDT - 04/03/2016 11:59 PM CDT Hospital Encounter [facility] Jaret Morejon MD [address] [place] [address] DR STEINER B [address] [address] Social History Tobacco Use Types Packs/Day Years Used Date Smoking Tobacco: Never Alcohol Use Standard Drinks/Week Comments No 0 (1 standard drink = 0.6 oz pur e alcohol) Comments Unknown Sex and Gender Information Value Date Recorded Sex Assigned at Not on file 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
--- OUTSIDE RECORDS SUMMARY | 2024-10-20 04:01 | XMS_ITS | Encounter Summary ---
Author Organization [facility] Healthcare Address [address] [place] [address] Care Team Providers Care Industrial/Organizational Psychologist Name Role Phone Miscellaneous, Not In File Primary Care Provider Unavailable Reason for Visit * Reason Comments Back Pain Encounter Details Date Type Department Care Team (Late st Contact Info) Description 06/27/2019 3:20 PM CDT - 06/27/2019 6:08 PM CDT Emergency [facility] Emergency Department [address] [place] [address] Eric Kim MD 1 [facility] [place] [address] Acute right-sided thoracic back pain (Primary Dx) Discharge Disposition: Discharge to home or self care Social History Tobacco Use Types Packs/Day Years Used Date Smoking Tobacco: Never Smokeless Tobacco: Never Alcohol Use Standard Drinks/Week Comments No 0 (1 standard drink = 0.6 oz pur e alcohol) Comments No Sex and Gender Information Value Date Recorded Sex Assigned at Not on file Legal Sex Female 2:14 AM [employer]ING [employer] Gender Identity Not on file Sexual Orientation Not on file documented as of this encounter Last Filed Vital Signs Vital Sign Reading Time Taken Comments Blood Pressure 138/108 06/27/2019 3:32 PM CDT Pulse 102 06/27/2019 3:32 PM CDT Temperature 36.8 ??C (98.2 ??F) 06/27/2019 3:32 PM CD T Respiratory Rate 18 06/27/2019 3:32 PM CDT Oxygen Saturation 98% 06/27/2019 3:32 PM CDT Inhaled Oxygen Concentration - - Weight - - Height - - Body Mass Index - - documented in this encounter Discharge Diagnoses Diagnosis Pain in thoracic spine - PAIN IN THORACIC SPINE Essential (primary) hypertension - ESSENTIAL (PRIMARY) HYPERTENSION Unspecified essential hypertension documented in this encounter Discharge Instructions * Discharge Instructions* Eric Kim MD - 06/27/2019 5:31 PM CDT Please return to the ED if given dramatic change in pain, incontinence, high fevers, any new symptoms or for any other concerns. For Pain Control: Tylenol 1000 mg every 6 hr AND Aleve/naproxen 440 mg twice a day OR Ibuprofen 800 mg every 6 hr Flexeril only if pain still uncontrolled with above. NO DRIVING OR ALCOHOL WHILE TAKING. Also encourage warm baths or hot packs as well as gentle stretching. Please make sure to move his best possible and avoid sitting or laying for long periods of time. * Attachments The following attachments cannot be sent through Care Everywhere. * Back Pain (Acute or Chronic) (Gabonese) documented in this encounter Medications at Time [...] Refills Last Filled Start Date End Date cyclobenzaprine (FLEXERIL) 10 mg tabletIndications: Muscle Spasm Take 0.5 tablets (5 mg total) by mouth 3 (three) times a day as needed for muscle spasms 12 tablet 06/27/2019 documented in this encounter Discharge Disposition Disposition Code Departure Means Destination Comment s Discharge to home or self jail documented in this encounter ED Notes * Eric Kim MD - 06/27/2019 4:09 PM CDT Chief Complaint Patient presents with ??? Back Pain 3:59 PM 06/27/2019 - Pt is a 44 y/o female with a PMHx of tension headaches, HTN, presenting to the ED complaining of lower back pain and right sided pain. Pt states that her side pain started 2 days ago and her back pain started earlier today. Pt also reports nausea which occurred earlier today after eating toast. She denies any fevers. Pt also complains of dysuria and hematuria. She does have a history of bladder infections, but she denies any history of kidney stones. Pt states that her pain is worse than her past bladder infections. There are no other complaints at this time. Past Medical History: Diagnosis Date ??? HX OTHER MEDICAL Headache, migraine ??? Hypertension Hypertension ??? Tension headache Headache, tension Past Surgical History: Procedure Laterality Date ??? HYSTERECTOMY 2011 Hysterectomy ??? HYSTERECTOMY Hysterectomy HOME MEDICATIONS : amLODIPine (NORVASC) 10 mg tablet azithromycin (ZITHROMAX) 250 mg tablet cetirizine (ZyrTEC) 10 mg tablet cyclobenzaprine (FLEXERIL) 10 mg tablet HYDROcodone-acetaminophen (NORCO) 5-325 mg per tablet losartan (COZAAR) 25 mg tablet meloxicam (MOBIC) 15 mg tablet sertraline (ZOLOFT) 100 mg tablet traMADol (ULTRAM) 50 mg tablet Allergies Allergen Reactions ??? Amoxicillin Rash ??? Other Rash all cillins ??? Penicillins Rash Reaction: Rash, , Review of Systems Constitutional: Negative for fever. HENT: Negative for congestion. Eyes: Negative for redness. Respiratory: Negative for shortness of breath. Cardiovascular: Negative for chest pain. Gastrointestinal: Positive for nausea. Negative for abdominal pain. Genitourinary: Positive for dysuria, flank pain (right side flank pain) and hematuria. Negative fordifficulty urinating. Musculoskeletal: Positive for back pain (lower back). Negative for joint swelling. Skin: Negative for rash. Neurological: Negative for headaches. Psychiatric/Behavioral: Negative for agitation. Physical Exam Constitutional: She appears well-developed and well-nourished. No distress. HENT: Head: Normocephalic and atraumatic. Right Ear: No drainage. Left Ear: No drainage. Nose: No rhinorrhea. Mouth/Throat: Oropharynx is clear and moist. Eyes: Conjunctivae and EOM are normal. Neck: Normal range of motion. Cardiovascular: Normal rate, regular rhythm, normal heart sounds and intact distal pulses. No murmur heard. Pulmonary/Chest: Effort normal and breath sounds normal. No respiratory distress. She has no wheezes. She has no rales. Abdominal: Soft. Bowel sounds are normal. She exhibits no distension. There is no tenderness. Thereis CVA tenderness (Right). There is no guarding. Musculoskeletal: She exhibits no edema. Patient moving all 4 extremities. Neurological: She is alert. No sensory deficit (To light touch). Face symmetrical. Skin: Skin is warm and dry. Capillary refill takes less than 2 seconds. Psychiatric: She has a normal mood and affect. Her behavior is normal. Nursing note and vitals reviewed. ED Course as of Jun 27 1732 Time: 06/27 1613 Comment: The patient has been informed that they may have pre-hypertension or Hypertension based oz blood pressure reading in the Emergency Department. I recommend that the patient call the primarycare provider listed on their discharge instructions or a physician of their choice this week to arrange follow up for further evaluation of possible Hypertension. By: Randi Blakely Time: 06/27 1725 Comment: Normal CBC. Normal CMP. Normal lactate. Normal lipase. Urine negative for infection 1+ bacteria but contaminated. By: Eric Kim MD Time: 06/27 173 Comment: Re-evaluation patient she is doing mildly better at this time but still having some pain. Discussed negative testing as well as imaging studies and she was reassured. Advised Flexeril and [id number] pain medication to help with her discomfort and gave her 1 more dose of pain medication prior to discharge. Patient happy with plan. Patient discharged in stable condition. All questions answered. We had an extensive conversation regarding return precautions and need for follow up prior to disposition. By: Eric Kim MD BP (!) 138/108 Pulse 102 Temp 36.8 ??C (98.2 ??F) (Temporal) Resp 18 SpO2 98% Labs Reviewed URINALYSIS AND REFLEX TO MICROSCOPIC AND CULTURE - Abnormal Result Value Color, ur Yellow Clarity, ur Clear Specific gravity, ur 1.013 pH, urine 5.5 Protein, ur ql Negative Glucose, ur ql Negative Ketones, ur Negative Bilirubin, ur Negative Blood, ur Negative Urobilinogen, ur 0.2 Nitrite, ur Negative Leukocyte esterase, ur Trace (*) Narrative: Urine pH is affected by diet, medications, systemic acid-base disturbances, and renal tubular function. pH may affect urinary stone formation. For example, urine pH below 6.0 may help reduce the tendency for calcium phosphate stones and pH greater than 6.0 may reduce the tendency for uric acid stone formation. Source: [facility].Last revised 10-23-2017 COMPREHENSIVE METABOLIC PANEL - Abnormal Sodium 141 Potassium, pl 3.9 Chloride 103 CO2 25 Anion gap 13 BUN 9 Creatinine 0.55 (*) Glucose 93 Calcium 9.3 Bilirubin, total <0.2 Protein, pl 7.0 Albumin 4.2 Alk phos 80 ALT 15 AST 19 URINALYSIS, MICROSCOPIC ONLY - Abnormal WBC, ur 6-10 (*) RBC, ur 0-5 Epithelial cells, squamous, ur 1-5 Bacteria, ur 1+ (*) Hyaline casts, ur 1-5 CBC WITH AUTO DIFFERENTIAL WBC 6.3 Hgb 12.4 Hct 37.0 Plt 337 MPV 9.9 RBC 4.42 MCV 83.7 MCH 28.1 MCHC 33.5 RDW CV 13.4 RDW SD 40.9 NRBC abs 0.00 LIPASE Lipase 34 LACTATE Lactate 1.5 DIFFERENTIAL AUTO Neutrophil abs 3.6 Imm gran abs 0.0 Lymphocyte abs 2.1 Monocyte abs 0.5 Eosinophil abs 0.1 Basophil abs 0.0 Neutrophil pct 56.3 Imm gran pct 0.3 Lymphocyte pct 33.1 Monocyte pct 7.6 Eosinophil pct 2.1 Basophil pct 0.[address] KUB Stone WO Contrast Final Result 1. NO RENAL, URETER OR BLADDER STONE OR HYDRONEPHROSIS. 2. NO ACUTE INTRA-ABDOMINAL/ INTRAPELVIC ABNORMALITY.. Electronically signed by: Efrain Barcenas M.D. Procedures MDM Number of Diagnoses or Management Options Diagnosis management comments: 44-year-old female with multiple comorbidities who presents today for right flank pain. Differential diagnosis includes cholecystitis versus pyelonephritis versus nephrolithiasis versus other acute abdominal pelvic pathology. Amount and/or Complexity of Data Reviewed Clinical lab tests: ordered and reviewed Tests in the radiology section of CPT??: ordered and reviewed CLINICAL IMPRESSION: 1. Acute right-sided thoracic back pain ATTESTATIONS: This note is prepared by Randi Blakely, acting as a scribe for Eric Kim MD. I electronically signed this note at 4:09 PM on 06/27/2019. I, Eric Kim MD, have personally performed the services described in the documentation , reviewedthe documentation, as recorded by the scribe in my presence, and it accurately and completely records my words and actions. Any errors in translation of speech to the EMR are related to software and not the clinician. Eric Kim MD 06/27/19 [id number] * Ragini Marquez, MITESH - 06/27/2019 3:30 PM CDT Pt presents to triage with right sided back pain x2 days. Pt states she is urinating more frequently. Pt states the back pain starts on the right side and radiates to her abd. documented in this encounter Plan of Treatment Not on file documented as of this encounter Procedures Procedure Name Priority Date/Time Associated Diagnosis Comments CT KUB STONE WO CONTRAST ED Urgent/IP Urgent 06/27/2019 4:57 PM CDT LACTATE STAT 06/27/2019 4:47 PM CDT EGFR STAT 06/27/2019 4:38 PM CDT DIFFERENTIAL AUTO STAT 06/27/2019 4:3 8 PM CDT CBC WITH AUTO DIFFERENTIAL STAT 06/27/2019 4:38 PM CDT LIPASE STAT 06/27/2019 4:38 PM CDT COMPREHENSIVE METABOLIC PANEL STAT 06/27/2019 4:38 PM CDT URINALYSIS AND REFLEX TO MICROSCOPIC AND CULTURE STAT 06/27/2019 3:47 PM CDT URINALYSIS, MICROSCOPIC ONLY STAT 06/27/2019 3:47 PM CDT documented in this encounter Results * CT KUB Stone WO Contrast (06/27/2019 4:57 PM CDT) Anatomical Region Laterality Modality Abdomen N/A Computed Tomogra phy 06/27/2019 4:58 PM CDT Impressions 06/27/2019 5:09 PM CDT 1. ??NO RENAL, URETER OR BLADDER STONE OR HYDRONEPHROSIS. 2. ??NO ACUTE INTRA-ABDOMINAL/ INTRAPELVIC ABNORMALITY.. Electronically signed by: Efrain Barcenas M.D. Narrative 06/27/2019 5:[address] KUB STONE WO CONTRAST HISTORY: ??Right flank pain TECHNIQUE: Serial axial images of the abdomen and pelvis obtained without contrast per renal stone protocol. COMPARISON: CT abdomen pelvis 09/14/2011 FINDINGS: No renal, ureter or bladder stone is identified. ??There is no hydronephrosis. Evaluation of the solid abdominal organs is limited by the lack of intravenous contrast. Lung bases are clear. The aorta is normal in caliber. The partially visualized liver appears normal. Gallbladder is normal. There are granulomatous calcifications in the partially visualized spleen that otherwise appears normal. Adrenal glands are normal. Pancreas is normal. There are no dilated loops of small or large bowel or inflammatory bowel changes. ??There are a few colon diverticula involving the sigmoid and left colon but there are no CT changes of diverticulitis. Appendix is normal. Uterus is absent. There is no free air, free fluid or adenopathy. There are no acute osseous abnormalities. Procedure Note Efrain Barcenas MD - 06/27/2019 CT KUB STONE WO CONTRAST HISTORY: Right flank pain TECHNIQUE: Serial axial images of the abdomen and pelvis obtained without contrast per renal stone protocol. COMPARISON: CT abdomen pelvis 09/14/2011 FINDINGS: No renal, ureter or bladder stone is identified. There is no hydronephrosis. Evaluation of the solid abdominal organs is limited by the lack of intravenous contrast. Lung bases are clear. The aorta is normal in caliber. The partially visualized liver appears normal. Gallbladder is normal. There are granulomatous calcifications in the partially visualized spleen that otherwise appears normal. Adrenal glands are normal. Pancreas is normal. There are no dilated loops of small or large bowel or inflammatory bowel changes. There are a few colon diverticula involving the sigmoid and left colon but there are no CT changes of diverticulitis. Appendix is normal. Uterus is absent. There is no free air, free fluid or adenopathy. There are no acute osseous abnormalities. IMPRESSION: 1. NO RENAL, URETER OR BLADDER STONE OR HYDRONEPHROSIS. 2. NO ACUTE INTRA-ABDOMINAL/ INTRAPELVIC ABNORMALITY.. Electronically signed by: Efrain Barcenas M.D. us Eric Kim MD IMG CT PROCEDURES Final Resu lt * Lactate (06/27/2019 4:47 PM CDT) Pathologist [facility] Lactate 1.5 0.7 - 2.0 mmol/L [facility] Blood specimen (specimen) 06/27/2019 4:47 PM CDT 06/27/2019 4:49 PM CDT us Eric Kim MD LAB BLOOD ORDERABLES Final R esult [facility] [address] [place] [address] * eGFR (06/27/2019 4:38 PM CDT) eGFR 114 mL/min/1.7 3 m2 [facility] Comment: Interpretive Data Reference Interval Normal ?>/= 90 mL/min/1.73m2 Mildly decreased* ? 60 - 89 mL/min/1.73m2 Mildly to moderately decreased ?45 - 59 mL/min/1.73m2 Moderately to severely decreased ??30 - 44 mL/min/1.73m2 Severely decreased ?15 - 29 mL/min/1.73m2 Kidney Failure ?< 15 ??mL/min/1.73m2 *Relative to young adult level If -Cymraes multiply value by 1.16. Estimated glomerular filtration rate is determined by [...] 70. Current interpretive data was last reviewed 2016. Blood specimen (specimen) 06/27/2019 4:38 PM CDT 06/27/2019 4:42 PM CDT Eric Kim MD LAB BLOOD ORDERABLES Final R esult [facility] ([place]) [address] [place] [address] * Differential, auto (06/27/2019 4:38 PM CDT) Neutrophil abs 3.6 1.7 - 6.5 K/cumm [facility] Imm gran abs 0.0 0.0 - 0.1 K/cumm [facility] Lymphocyte abs 2.1 0.8 - 3.3 K/cumm [facility] Monocyte abs 0.5 0.2 - 0.8 K/cumm [facility] Eosinophil abs 0.1 0.0 - 0.5 K/cumm [facility] Basophil abs 0.0 0.0 - 0.1 K/cumm [facility] Neutrophil pct 56.3 % [facility] Comment: Interpretive Data Percent cell count reference ranges are not reported, since discordance with absolute values may lead to misinterpretation of CBC data. Current Interpretive Data was last revised on 2018. Imm gran pct 0.3 % [facility] Comment: Interpretive Data Percent cell count reference ranges are not reported, since discordance with absolute values may lead to misinterpretation of CBC data. Current Interpretive Data was last revised on 2018. Lymphocyte pct 33.1 % [facility] Comment: Interpretive Data Percent cell count reference ranges are not reported, since discordance with absolute values may lead to misinterpretation of CBC data. Current Interpretive Data was last revised on 2018. Monocyte pct 7.6 % [facility] Comment: Interpretive Data Percent cell count reference ranges are not reported, since discordance with absolute values may lead to misinterpretation of CBC data. Current Interpretive Data was last revised on 2018. Eosinophil pct 2.1 % [facility] Comment: Interpretive Data Percent cell count reference ranges are not reported, since discordance with absolute values may lead to misinterpretation of CBC data. Current Interpretive Data was last revised on 2018. Basophil pct 0.6 % [facility] Comment: Interpretive Data Percent cell count reference ranges are not reported, since discordance with absolute values may lead to misinterpretation of CBC data. Current Interpretive Data was last revised on 2018. Blood specimen (specimen) 06/27/2019 4:38 PM CDT 06/27/2019 4:42 PM CDT Eric Kim MD LAB BLOOD ORDERABLES Final R esult Performing Organization Address City/[facility]/ZIP Co de Phone Number [facility] [address] [place] [address] * Lipase (06/27/2019 4:38 PM CDT) Lipase 34 10 - 99 Units/L [facility] Blood specimen (specimen) 06/27/2019 4:38 PM CDT 06/27/2019 4:42 PM CDT Eric Kim MD LAB BLOOD ORDERABLES Final R esult Performing Organization Address [facility] Co de Phone Number [facility] [address] [place] [address] * (ABNORMAL) Comprehensive metabolic panel (06/27/2019 4:38 PM CDT) Sodium 141 135 - 145 mmol/L [facility] Potassium, pl 3.9 3.3 - 4.9 mmol/L [facility] Chloride 103 97 - 110 mmol/L [facility] CO2 25 22 - 32 mmol/L [facility] Anion gap 13 2 - 15 mmol/L [facility] BUN 9 8 - 25 mg/dL [facility] Creatinine 0.55(L) 0.60 - 1.10 mg/dL [facility] Glucose 93 70 - 199 mg/dL [facility] [...] interpretive data was last revised 2017. Calcium 9.3 8.5 - 10.3 mg/dL [facility] Bilirubin, total <0.2 0.1 - 1.2 mg/dL [facility]) Protein, pl 7.0 6.5 - 8.5 g/dL [facility] Albumin 4.2 3.5 - 5.0 g/dL [facility] Alk phos 80 40 - 130 Units/L [facility] ALT 15 7 - 45 Units/L [facility] AST 19 10 - 45 Units/L [facility] Comment:Slightly Hemolyzed S pecimen Blood specimen (specimen) 06/27/2019 4:38 PM CDT 06/27/2019 4:42 PM CDT us Eric Kim MD LAB BLOOD ORDERABLES Final R esult [facility] [address] [place] [address] * CBC with auto differential (06/27/2019 4:38 PM CDT) WBC 6.3 3.8 - 9.9 K/cumm [facility] Hgb 12.4 11.9 - 15.5 g/dL [facility] Hct 37.0 35.6 - 45.5 % [facility] Plt 337 150 - 400 K/cumm [facility] MPV 9.9 9.1 - 12.3 fL [facility] RBC 4.42 3.90 - 5.20 M/cumm [facility] MCV 83.7 81.3 - 96.4 fL [facility] MCH 28.1 27.1 - 33.3 pg [facility] MCHC 33.5 32.3 - 35.7 g/dL [facility] RDW CV 13.4 11.1 - 14.9 % [facility] RDW SD 40.9 35.7 - 48.1 fL [facility] NRBC abs 0.00 0.00 - 0.01 K/cumm [facility] Blood specimen (specimen) 06/27/2019 4:38 PM CDT 06/27/2019 4:42 PM CDT us Eric Kim MD LAB BLOOD ORDERABLES Final R esult [facility] ([place] [address] [place] [id number] * (ABNORMAL) Urinalysis, microscopic only (06/27/2019 3:47 PM CDT) WBC, ur 6-10(A) 0 - 5 /HPF [facility] RBC, ur 0-5 0 - 2 /HPF [facility] Epithelial cells, squamous, ur 1-5 0 - 5 /HPF [facility] Bacteria, ur 1+(A) [facility] Hyaline casts, ur 1-5 0 - 10 /LPF [facility] Urine 06/27/2019 3:47 PM CDT 06/27/2019 3:49 PM CDT Sandro Adler MD LAB URINE ORDERABLES Fi nal Result Performing Organization Address City/[facility]/ZIP Co de Phone Number [facility] [address] [place] [address] * (ABNORMAL) Urinalysis reflex to microscopic and culture Urine (06/27/2019 3:47 PM CDT) Color, ur Yellow Yellow [facility] Clarity, ur Clear Clear [facility]) Specific gravity, ur 1.013 1.010 - 1.025 [facility] pH, urine 5.5 [facility] Protein, ur ql Negative Negative [facility] Glucose, ur ql Negative Negative [facility] Ketones, ur Negative Negative [facility] Bilirubin, ur Negative Negative [facility] Blood, ur Negative Negative [facility] Urobilinogen, ur 0.2 mg/dL [facility] Nitrite, ur Negative Negative [facility] Leukocyte esterase, ur Trace(A) Negative [facility] Urine 06/27/2019 3:47 PM CDT 06/27/2019 3:49 PM CDT Narrative [facility] - 06/27/2019 4:03 PM CDT ?? Urine pH is affected by diet, medications, systemic acid-base disturbances, and renal tubular function. ??pH may affect urinary stone formation. ??For example, urine pH below 6.0 may help reduce the tendency for calcium phosphate stones and pH greater than 6.0 may reduce the tendency for uric acid stone formation. Source: [employer]. Last revised 10-23-2017 us Sandro Adler MD LAB MICROBIOLOGY - GENE RAL ORDERABLES Final Result Performing Organization Address City/[facility] Co de Phone Number [facility] [address] [place] [address] documented in this encounter Visit Diagnoses Diagnosis Acute right-sided thoracic back pain- Primary documented in this encounter Administered Medications Inactive Administered Medications - up to 3 most recent administrations Medication Order MAR Action Action Date Dose Rate Site fentaNYL (SUBLIMAZE) preservative free injection 25 mcg 25 mcg, intravenous, Once, On 06/27/19 at 1730, For 1 dose Given 06/27/2019 5:41 PM CDT 25 mcg ketorolac (TORADOL) 15 mg/mL injection 15 mg 15 mg, intravenous, Once, On 06/27/19 at 1615, For 1 dose, For Adult IV push, administer over 15 seconds, Indications: PainIndications:Pain Given 06/27/2019 4:34 PM CDT 15 mg morphine injection 4 mg 4 mg, intravenous, Administer over 4 Minutes, Once, On 06/27/19 at 1615, For 1 dose, Indications: PainIndications:Pain Given 06/27/2019 4:34 PM CDT 4 mg ondansetron (ZOFRAN) injection 4 mg 4 mg, intravenous, Administer over 2 Minutes, Once, On 06/27/19 at 1615, For 1 dose, Indications: Nausea, VomitingIndications:Nausea,V omiting Given 06/27/2019 4:34 PM CDT 4 mg sodium chloride 0.9% bolus 1,000 mL 1,000 mL, intravenous, at 1,000 mL/hr, Administer over 1 Hours, Once, On 06/27/19 at 1615, For 1 dose New Bag 06/27/2019 4:34 PM CDT 1,000 mL 1000 mL/hr documented in this encounter Active and Recently Administered Medications Times are shown in CDT. Scheduled Medication Order 06/25/2019 06/26/2019 06/27/2019 fentaNYL (SUBLIMAZE) preservative free injection 25 mcg (COMPLETED) 25 mcg, intravenous, Once, On 06/27/19 at 1730, For 1 dose 1741 (Given - Provid er: Ragini Marquez, RN) ketorolac (TORADOL) 15 mg/mL injection 15 mg (COMPLETED) 15 mg, intravenous, Once, On 06/27/19 at 1615, For 1 dose, For Adult IV push, administer over 15 seconds, Indications: Pain 1634 (Given - Provid er: Ragini Marquez, RN) morphine injection 4 mg (COMPLETED) 4 mg, intravenous, Administer over 4 Minutes, Once, On 06/27/19 at 1615, For 1 dose, Indications: Pain 1634 (Given - Provid er: Ragini Marquez, MITESH) ondansetron (ZOFRAN) injection 4 mg (COMPLETED) 4 mg, intravenous, Administer over 2 Minutes, Once, On 06/27/19 at 1615, For 1 dose, Indications: Nausea, Vomiting 1634 (Given - Provid er: Ragini Marquez, MITESH) sodium chloride 0.9% bolus 1,000 mL (COMPLETED) 1,000 mL, intravenous, at 1,000 mL/hr, Administer over 1 Hours, Once, On 06/27/19 at 1615, For 1 dose 1634 (New Bag - Prov ider: Ragini Marquez RN)1740 (Stopped - Provider: Ragini Marquez, MITESH) documented in this encounter Orders Nursing Count Last Ordered Date First Orde red Date CARDIO RESPIRATORY MONITORING 06/27/2019 CONTINUOUS PULSE OXIMETRY 06/27/2019 NURSING COMMUNICATION 1 06/27/2019 IV Count Last Ordered Date First Orde red Date INSERT PERIPHERAL IV 1 06/27/2019 documented in this encounter Care Teams Industrial/Organizational Psychologist Relationship Specialty Start Date End Date Miscellaneous, Not In File PCP - General 07/09/17 documented as of this encounter
--- OUTSIDE RECORDS SUMMARY | 2024-10-20 04:01 | XMS_ITS | Encounter Summary ---
Author Organization [facility] Healthcare Address [address] [place] [address] Care Team Providers Care Financial Systems Director Name Role Phone No, Physician Primary Care Provider [phone] Encounter Details Date Type Department Care Team (Late st Contact Info) Description 06/15/2017 8:33 PM CDT - 06/16/2017 6:27 PM CDT Hospital Encounter [address] [id number] Jose Verdugo MD [address] [facility] [address] [place] [address] Discharge Disposition: Discharge to home or self care Social History Tobacco Use Types Packs/Day Years Used Date Smoking Tobacco: Never Smokeless Tobacco: Never Alcohol Use Standard Drinks/Week Comments No 0 (1 standard drink = 0.6 oz pur e alcohol) Comments Unknown Sex and Gender Information Value Date Recorded Sex Assigned at Not on file 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 Gender Identity Not on file Sexual Orientation Not on file documented as of this encounter Last Filed Vital Signs Vital Sign Reading Time Taken Comments Blood Pressure 112/70 06/16/2017 8:41 AM CDT Pulse 64 06/16/2017 8:41 AM CDT Temperature - - Respiratory Rate - - Oxygen Saturation 94% 06/16/2017 8:41 AM CDT Inhaled Oxygen Concentration - - Weight 90.7 kg (199 lb 15.7 oz) 06/16/2017 4:58 AM CDT Height 157.5 cm (5' 2 ) 06/16/2017 4:58 AM CDT Body Mass Index 36.58 06/16/2017 4:58 AM CDT documented in this encounter Medications [...] Diagnosis Comments XR ANKLE 3+ VW Routine 06/16/2017 8:01 PM CDT XR ANKLE 3+ VW Routine 06/16/2017 8:01 PM CDT XR ANKLE 2 VW Routine 06/16/2017 8:01 PM CDT URINALYSIS AND REFLEX TO MICROSCOPIC STAT 06/16/2017 7:40 AM CDT HCG, URINE, QUALITATIVE STAT 06/16/20 17 7:40 AM CDT URINALYSIS, MICROSCOPIC ONLY STAT 06/16/2017 7:[address] LOWER EXTREMITY WO CONTRAST Routine 06/16/2017 6:51 AM CDT XR ANKLE 3+ VW Routine 06/16/2017 5:43 AM CDT B CHECK SAMPLE STAT 06/16/2017 4:14 AM CDT XR ANKLE 3+ VW Routine 06/16/2017 3:56 AM CDT XR TIBIA FIBULA 2 VW Routine 06/16/2017 3:10 AM CDT ELECTROCARDIOGRAPHY (ECG) 06/16/2017 DISCHARGE LABORATORY CUMULATIVE REPORT 06/16/2017 12:00 AM CDT DIFFERENTIAL AUTO STAT 06/15/2017 8: 57 PM CDT CBC WITH AUTO DIFFERENTIAL STAT 06/15 8:57 PM CDT APTT STAT 06/15/2017 8:57 PM CDT PROTIME-INR STAT 06/15/2017 8:57 PM CDT TYPE AND SCREEN STAT 06/15/2017 8:57 PM CDT BASIC METABOLIC PANEL STAT 06/15/2017 8:57 PM CDT documented in this encounter Results * XR Ankle 2 VW (06/16/2017 8:01 PM CDT) Anatomical Region Laterality Modality N/A Radiographic Dagmar ging 06/16/2017 8:01 PM CDT Narrative 06/16/2017 8:01 PM CDT BRENDA BAIN M.D. FINAL REPORT ACC# ??Date Time ??Exam [id number] Jun 16, 2017 15:01:00 59415 Ankle Complt. min 3 views R [id number] Jun 16, 2017 15:01:00 03754 Ankle Complt. min 3 views R [id number] Jun 16, 2017 15:01:00 [id number] Ankle 2 views (red serv) R EXAMINATION: ? 1. Right ankle 2 views reduced service 2. Right ankle complete minimum 3 views at 1:46 p.m. 3. Right ankle complete minimum 3 views at 2:18 p.m. HISTORY: ??Right ankle fracture FINDINGS: ?? 3 view examinations of the right ankle at 1:46 p.m. and 2:18 p.m. as well as a two-view examination of the right ankle are compared to prior examination dated 06/15/2017. A plaster splint obscures osseous detail. There is unchanged tilt and lateral subluxation of the talus. A comminuted intra-articular fracture of the distal fibula and a posterior malleolus fracture are seen on the single lateral view with the splint removed. IMPRESSION: ?? Unchanged talar tilt and lateral subluxation of the right talus in this patient with a right ankle fracture-dislocation. Requested By: ANAND MCCABE M.D. Dictated By: ?? BRENDA BAIN M.D. ??on Jun ??2016 ??6:27A This document has been electronically signed by: BRENDA BAIN M.D. on Jun ??2016 ??6:27A [id number] BAIN M.D. FINAL REPORT Attending: ??CLINTON, ??JOSE Requesting: ??DEWEY, ??ANAND Requesting Fax: ?? Attending Fax: ?? Attending ID: ??[id number] Requesting ID: ??[id number] Report To 1 ID: ??[id number] ? Report To 1 Name: ??, ?? Report To 1 FAX: ?? NextGen Order #: ?? Procedure Note Miscellaneous, Not In File - 08/11/2017 BRENDA BAIN M.D. FINAL REPORT ACC# Date Time Exam [id number] Jun 16, 2017 15:01:00 36494 Ankle Complt. min 3 views R [id number] Jun 16, 2017 15:01:00 94327 Ankle Complt. min 3 views R [id number] Jun 16, 2017 15:01:00 66987P Ankle 2 views (red serv) R EXAMINATION: 1. Right ankle 2 views reduced service 2. Right ankle complete minimum 3 views at 1:46 p.m. 3. Right ankle complete minimum 3 views at 2:18 p.m. HISTORY: Right ankle fracture FINDINGS: 3 view examinations of the right ankle at 1:46 p.m. and 2:18 p.m. as well as a two-view examination of the right ankle are compared to prior examination dated 06/15/2017. A plaster splint obscures osseous detail. There is unchanged tilt and lateral subluxation of the talus. A comminuted intra-articular fracture of the distal fibula and a posterior malleolus fracture are seen on the single lateral view with the splint removed. IMPRESSION: Unchanged talar tilt and lateral subluxation of the right talus in this patient with a right ankle fracture-dislocation. Requested By: ANAND MCCABE M.D. Dictated By: BRENDA BAIN M.D. on Jun 17 2017 6:27A This document has been electronically signed by: BRENDA BAIN M.D. on Jun 17 2017 6:27A [id number] BAIN M.D. FINAL REPORT Attending: JOSE VERDUGO Requesting: ANAND MCCABE Requesting Fax: Attending Fax: Attending ID: [id number] Requesting ID: [id number] Report To 1 ID: [id number] Report To 1 Name: , Report To 1 FAX: NextGen Order #: Anand Mccabe MD IMG XR PROCEDURES Edit ed Result - Final * XR Ankle 3+ Vw (06/16/2017 8:01 PM CDT) Anatomical Region Laterality Modality N/A Radiographic Dagmar ging 06/16/2017 8:01 PM CDT Narrative 06/16/2017 8:01 PM CDT BRENDA BAIN M.D. FINAL REPORT ACC# ??Date Time ??Exam [id number] Jun 16, 2017 15:01:00 23524 Ankle Complt. min 3 views R [id number] Jun 16, 2017 15:01:00 10859 Ankle Complt. min 3 views R [id number] Jun 16, 2017 15:01:00 [id number] Ankle 2 views (red serv) R EXAMINATION: ? 1. Right ankle 2 views reduced service 2. Right ankle complete minimum 3 views at 1:46 p.m. 3. Right ankle complete minimum 3 views at 2:18 p.m. HISTORY: ??Right ankle fracture FINDINGS: ?? 3 view examinations of the right ankle at 1:46 p.m. and 2:18 p.m. as well as a two-view examination of the right ankle are compared to prior examination dated 06/15/2017. A plaster splint obscures osseous detail. There is unchanged tilt and lateral subluxation of the talus. A comminuted intra-articular fracture of the distal fibula and a posterior malleolus fracture are seen on the single lateral view with the splint removed. IMPRESSION: ?? Unchanged talar tilt and lateral subluxation of the right talus in this patient with a right ankle fracture-dislocation. Requested By: ANAND MCCABE M.D. Dictated By: ?? BRENDA BAIN M.D. ??on Jun ??2016 ??6:27A This document has been electronically signed by: BRENDA BAIN M.D. on Jun ??2016 ??6:27A [id number] BAIN M.D. FINAL REPORT Attending: ??CLINTON, ??JOSE Requesting: ??DEWEY, ??ANAND Requesting Fax: ?? Attending Fax: ?? Attending ID: ??[id number] Requesting ID: ??[id number] Report To 1 ID: ??[id number] ? Report To 1 Name: ??, ?? Report To 1 FAX: ?? NextGen Order #: ?? Procedure Note Miscellaneous, Not In File - 08/11/2017 BRENDA BAIN M.D. FINAL REPORT ACC# Date Time Exam [id number] Jun 16, 2017 15:01:00 74499 Ankle Complt. min 3 views R [id number] Jun 16, 2017 15:01:00 42020 Ankle Complt. min 3 views R [id number] Jun 16, 2017 15:01:00 [id number] Ankle 2 views (red serv) R EXAMINATION: 1. Right ankle 2 views reduced service 2. Right ankle complete minimum 3 views at 1:46 p.m. 3. Right ankle complete minimum 3 views at 2:18 p.m. HISTORY: Right ankle fracture FINDINGS: 3 view examinations of the right ankle at 1:46 p.m. and 2:18 p.m. as well as a two-view examination of the right ankle are compared to prior examination dated 06/15/2017. A plaster splint obscures osseous detail. There is unchanged tilt and lateral subluxation of the talus. A comminuted intra-articular fracture of the distal fibula and a posterior malleolus fracture are seen on the single lateral view with the splint removed. IMPRESSION: Unchanged talar tilt and lateral subluxation of the right talus in this patient with a right ankle fracture-dislocation. Requested By: ANAND MCCABE M.D. Dictated By: BRENDA BAIN M.D. on Jun 17 2017 6:27A This document has been electronically signed by: BRENDA BAIN M.D. on Jun 17 2017 6:27A [id number] BAIN M.D. FINAL REPORT Attending: JOSE VERDUGO Requesting: ANAND MCCABE Requesting Fax: Attending Fax: Attending ID: [id number] Requesting ID: [id number] Report To 1 ID: [id number] Report To 1 Name: , Report To 1 FAX: NextGen Order #: us Anand Mccabe MD IMG XR PROCEDURES Edit ed Result - Final * XR Ankle 3+ Vw (06/16/2017 8:01 PM CDT) Anatomical Region Laterality Modality N/A Radiographic Dagmar ging 06/16/2017 8:01 PM CDT Narrative 06/16/2017 8:01 PM CDT BRENDA BAIN M.D. FINAL REPORT ACC# ??Date Time ??Exam [id number] Jun 16, 2017 15:01:00 28464 Ankle Complt. min 3 views R [id number] Jun 16, 2017 15:01:00 29050 Ankle Complt. min 3 views R [id number] Jun 16, 2017 15:01:00 [id number] Ankle 2 views (red serv) R EXAMINATION: ? 1. Right ankle 2 views reduced service 2. Right ankle complete minimum 3 views at 1:46 p.m. 3. Right ankle complete minimum 3 views at 2:18 p.m. HISTORY: ??Right ankle fracture FINDINGS: ?? 3 view examinations of the right ankle at 1:46 p.m. and 2:18 p.m. as well as a two-view examination of the right ankle are compared to prior examination dated 06/15/2017. A plaster splint obscures osseous detail. There is unchanged tilt and lateral subluxation of the talus. A comminuted intra-articular fracture of the distal fibula and a posterior malleolus fracture are seen on the single lateral view with the splint removed. IMPRESSION: ?? Unchanged talar tilt and lateral subluxation of the right talus in this patient with a right ankle fracture-dislocation. Requested By: ANAND MCCABE M.D. Dictated By: ?? BRENDA BAIN M.D. ??on Jun ??2016 ??6:27A This document has been electronically signed by: BRENDA BAIN M.D. on Jun ??2016 ??6:27A [id number] BAIN M.D. FINAL REPORT Attending: ??CLINTON, ??JOSE Requesting: ??DEWEY, ??ANAND Requesting Fax: ?? Attending Fax: ?? Attending ID: ??[id number] Requesting ID: ??[id number] Report To 1 ID: ??[id number] ? Report To 1 Name: ??, ?? Report To 1 FAX: ?? NextGen Order #: ?? Procedure Note Miscellaneous, Not In File - 08/11/2017 BRENDA BAIN M.D. FINAL REPORT ACC# Date Time Exam [id number] Jun 16, 2017 15:01:00 84614 Ankle Complt. min 3 views R [id number] Jun 16, 2017 15:01:00 52838 Ankle Complt. min 3 views R [id number] Jun 16, 2017 15:01:00 [id number] Ankle 2 views (red serv) R EXAMINATION: 1. Right ankle 2 views reduced service 2. Right ankle complete minimum 3 views at 1:46 p.m. 3. Right ankle complete minimum 3 views at 2:18 p.m. HISTORY: Right ankle fracture FINDINGS: 3 view examinations of the right ankle at 1:46 p.m. and 2:18 p.m. as well as a two-view examination of the right ankle are compared to prior examination dated 06/15/2017. A plaster splint obscures osseous detail. There is unchanged tilt and lateral subluxation of the talus. A comminuted intra-articular fracture of the distal fibula and a posterior malleolus fracture are seen on the single lateral view with the splint removed. IMPRESSION: Unchanged talar tilt and lateral subluxation of the right talus in this patient with a right ankle fracture-dislocation. Requested By: ANAND MCCABE M.D. Dictated By: BRENDA BAIN M.D. on Jun 17 2017 6:27A This document has been electronically signed by: BRENDA BAIN M.D. on Jun 17 2017 6:27A [id number] BAIN M.D. FINAL REPORT Attending: JOSE VERDUGO Requesting: ANAND MCCABE Requesting Fax: Attending Fax: Attending ID: [id number] Requesting ID: [id number] Report To 1 ID: [id number] Report To 1 Name: , Report To 1 FAX: NextGen Order #: us Anand Mccabe MD IMG XR PROCEDURES Edit ed Result - Final * HCG, urine, qualitative (06/16/2017 7:40 AM CDT) HCG, ur Negative [facility] Urine 06/16/2017 7:40 AM CDT 06/16/2017 9:08 AM CDT us Dameon Tinajero MD LAB URINE ORDERABLES Serene alcantara Result [facility] [place] [address] * Urinalysis, microscopic only (06/16/2017 7:40 AM CDT) RBC, ur 3 0 - 3 /HPF [facility] WBC, ur 2 0 - 5 /HPF [facility] Bacteria, ur Trace Trace [facility] Epithelial cells, renal, ur 0 0 - 0 /HPF [facility] Epithelial cells, squamous, ur 11 /LPF [facility] Mucus, ur Small /HPF [facility] Urine 06/16/2017 7:40 AM CDT 06/16/2017 8:40 AM CDT us Dameon Tinajero MD LAB URINE ORDERABLES Serene l Result Performing Organization Address [facility] Co de Phone Number [facility] Department [place] [address] * (ABNORMAL) Urinalysis reflex to microscopic (06/16/2017 7:40 AM CDT) Color, ur Yellow Yellow [facility] Clarity, ur Clear Clear [facility] Specific gravity, ur 1.016 1.003 - 1.030 [facility] pH, ur 5.0 5.0 - 8.[address] [facility] [facility] Albumin, ur Negative Trace [facility] Glucose, ur ql Negative Negative [facility] Ketones, ur Negative Negative [facility] Bilirubin, ur Negative Negative [facility] Blood, ur Negative Negative [facility] Urobilinogen, ur <2.0 <2.0 mg/dL [facility] Nitrites, ur Negative Negative [facility] Leukocyte esterase, ur 2+(A) Negative [facility] Urine 06/16/2017 7:40 AM CDT 06/16/2017 8:40 AM CDT us Dameon Tinajero MD LAB URINE ORDERABLES Serene l Result Performing Organization Address [facility] Co de Phone Number [facility] Department [place] [address] * CT Lower Extremity WO Contrast (06/16/2017 6:51 AM CDT) Anatomical Region Laterality Modality N/A Computed Tomogra phy 06/16/2017 6:51 AM CDT Narrative 06/16/2017 6:51 AM CDT EMILY DUENAS M.D. RUBA GILLIAM M.D. FINAL REPORT The radiology attending physician has personally reviewed this study, and has reviewed and/or edited this written report and agrees with it. ACC# ??Date Time ??Exam [id number] Jun 16, 2017 01:51:[address] Ankle/Hindfoot wo con R ACC# ??Date Time ??Exam [id number] Jun 16, 2017 01:51:[address] Ankle/Hindfoot wo con R EXAMINATION: ?CT right ankle/hindfoot without contrast HISTORY: ??Right ankle fracture-dislocation TECHNIQUE: Axial computed tomographic images of the right ankle were obtained without intravenous contrast. Coronal and sagittal reformatted images were performed and reviewed. FINDINGS: ?? Radiographs of the right ankle dated 06/15/2017 and 06/16/2017 were reviewed. The patient is imaged within a splint. There is a comminuted, oblique intra-articular distal fibular fracture with one cortical width lateral displacement of the primary distal fracture fragment with an essentially nondisplaced posterior butterfly fragment. A small cortical fragment is present within the fracture gap. There is a nondisplaced, comminuted intra-articular posterior malleolus fracture without significant articular surface incongruence. Scattered small bone fragments are present in the tibiotalar joint space. There is widening of the medial clear space and tibiofibular syndesmosis. The talar dome is normal. Ankle dislocation has been reduced compared to the initial radiographs. 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 There is an ankle joint effusion with soft tissue swelling about the ankle. The tendons of the ankle appear intact without evidence of entrapment. ?? IMPRESSION: Splinted, reduced right ankle bimalleolar fracture-dislocation with syndesmotic widening. ?? Requested By: ELIZABETH FELIZ M.D. Dictated By: ?? RUBA GILLIAM M.D. ??on Jun ??2016 10:56P This document has been electronically signed by: EMILY DUENAS M.D. on Jun ?? 2017 ??7:41A [id number] RAI M.D. FINAL REPORT The radiology attending physician has personally reviewed this study, and has reviewed and/or edited this written report and agrees with it. Attending: ??CLINTON, ??JOSE Requesting: ??TRINI, ??ELIZABETH Requesting Fax: ?? Attending Fax: ?? Attending ID: ??[id number] Requesting ID: ??[id number] Report To 1 ID: ??[id number] ? Report To 1 Name: ??, ?? Report To 1 FAX: ?? NextGen Order #: ?? Procedure Note Miscellaneous, Not In File - 08/11/2017 EMILY DUENAS M.D. RUBA GILLIAM M.D. FINAL REPORT The radiology attending physician has personally reviewed this study, and has reviewed and/or edited this written report and agrees with it. ACC# Date Time Exam [id number] Jun 16, 2017 01:51:[address] Ankle/Hindfoot wo con R ACC# Date Time Exam [id number] Jun 16, 2017 01:51:[address] Ankle/Hindfoot wo con R EXAMINATION: CT right ankle/hindfoot without contrast HISTORY: Right ankle fracture-dislocation TECHNIQUE: Axial computed tomographic images of the right ankle were obtained without intravenous contrast. Coronal and sagittal reformatted images were performed and reviewed. FINDINGS: Radiographs of the right ankle dated 06/15/2017 and 06/16/2017 were reviewed. The patient is imaged within a splint. There is a comminuted, oblique intra-articular distal fibular fracture with one cortical width lateral displacement of the primary distal fracture fragment with an essentially nondisplaced posterior butterfly fragment. A small cortical fragment is present within the fracture gap. There is a nondisplaced, comminuted intra-articular posterior malleolus fracture without significant articular surface incongruence. Scattered small bone fragments are present in the tibiotalar joint space. There is widening of the medial clear space and tibiofibular syndesmosis. The talar dome is normal. Ankle dislocation has been reduced compared to the initial radiographs. 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 There is an ankle joint effusion with soft tissue swelling about the ankle. The tendons of the ankle appear intact without evidence of entrapment. IMPRESSION: Splinted, reduced right ankle bimalleolar fracture-dislocation with syndesmotic widening. Requested By: ELIZABETH FELIZ M.D. Dictated By: RUBA GILLIAM M.D. on Jun 16 2017 10:56P This document has been electronically signed by: EMILY DUENAS M.D. on Jun 17 2017 7:41A [id number] ESCAMILLA M.D. FINAL REPORT The radiology attending physician has personally reviewed this study, and has reviewed and/or edited this written report and agrees with it. Attending: JOSE VERDUGO Requesting: ELIZABETH FELIZ Requesting Fax: Attending Fax: Attending ID: [id number] Requesting ID: [id number] Report To 1 ID: [id number] Report To 1 Name: , Report To 1 FAX: NextGen Order #: Elizabeth Feliz MD PhD IMG CT PROCEDURES Edited Result - Final * XR Ankle 3+ Vw (06/16/2017 5:43 AM CDT) Anatomical Region Laterality Modality N/A Radiographic Dagmar ging 06/16/2017 5:43 AM CDT Narrative 06/16/2017 5:43 AM CDT Gabrielle GARCIA M.D. FINAL REPORT The radiology attending physician has personally reviewed this study, and has reviewed and/or edited this written report and agrees with it. ACC# ??Date Time ??Exam [id number] Jun 16, 2017 00:43:00 34814 Ankle Complt. min 3 views R EXAMINATION: ?? Right ankle complete minimum 3 views HISTORY: Right ankle fracture-dislocation, followup FINDINGS: 3 non with weight-bearing portable views of the right ankle are submitted comparison made to 06/15/2017. Again seen is a reduced fracture-dislocation of the right ankle with mild persistent displacement of the distal and posterior fractures of the right tibia and fibula. There has been no significant interval change in alignment. IMPRESSION: ?? No significant interval change in alignment of right fracture-dislocation of the right ankle. Requested By: ELIZABETH FELIZ M.D. Dictated By: ?? DARCIE DUNHAM M.D. ??on Jun ??2016 ??2:17A This document has been electronically signed by: STAN TONEY M.D. on Jun?2016 10:11A [id number] GARCIA M.D. FINAL REPORT The radiology attending physician has personally reviewed this study, and has reviewed and/or edited this written report and agrees with it. Attending: ??CLINTON, ??JOSE Requesting: ??TRINI, ??ELIZABETH Requesting Fax: ?? Attending Fax: ?? Attending ID: ??[id number] Requesting ID: ??[id number] Report To 1 ID: ??[id number] ? Report To 1 Name: ??, ?? Report To 1 FAX: ?? NextGen Order #: ?? Procedure Note Miscellaneous, Not In File - 08/11/2017 STAN TONEY M.D. DARCIE DUNHAM M.D. FINAL REPORT The radiology attending physician has personally reviewed this study, and has reviewed and/or edited this written report and agrees with it. ACC# Date Time Exam [id number] Jun 16, 2017 00:43:00 10243 Ankle Complt. min 3 views R EXAMINATION: Right ankle complete minimum 3 views HISTORY: Right ankle fracture-dislocation, followup FINDINGS: 3 non with weight-bearing portable views of the right ankle are submitted comparison made to 06/15/2017. Again seen is a reduced fracture-dislocation of the right ankle with mild persistent displacement of the distal and posterior fractures of the right tibia and fibula. There has been no significant interval change in alignment. IMPRESSION: No significant interval change in alignment of right fracture-dislocation of the right ankle. Requested By: ELIZABETH FELIZ M.D. Dictated By: DARCIE DUNHAM M.D. on Jun 16 2017 2:17A This document has been electronically signed by: STAN TONEY M.D. on Jun 16 2017 10:11A [id number] DIANE TONEY, M.D. DARCIE DEOLANKAR, M.D. FINAL REPORT The radiology attending physician has personally reviewed this study, and has reviewed and/or edited this written report and agrees with it. Attending: JOSE VERDUGO Requesting: ELIZABETH FELIZ Requesting Fax: Attending Fax: Attending ID: [id number] Requesting ID: [id number] Report To 1 ID: [id number] Report To 1 Name: , Report To 1 FAX: NextGen Order #: us Elizabeth Feliz MD PhD IMG XR PROCEDURES Edited Result - Final * B Check Sample (06/16/2017 4:14 AM CDT) ABO Rh O Positive [facility] HCLL OTHER 06/16/2017 4:14 AM CDT 06/16/2017 4:23 AM CDT us Notinfile Unknown LAB BLOOD ORDERABLES Final Res ult [facility] Department [place] [address] * XR Ankle 3+ Vw (06/16/2017 3:56 AM CDT) Anatomical Region Laterality Modality N/A Radiographic Dagmar ging 06/16/2017 3:56 AM CDT Narrative 06/16/2017 3:56 AM CDT STAN TONEY M.D. DARCIE DUNHAM M.D. FINAL REPORT The radiology attending physician has personally reviewed this study, and has reviewed and/or edited this written report and agrees with it. ACC# ??Date Time ??Exam [id number] Jun 15, 2017 22:10:00 95248 Tibia Fibula 2 views R [id number] Jun 15, 2017 22:56:00 50998 Ankle Complt. min 3 views R EXAMINATION: ?? 1. Right ankle complete minimum 3 views 2. Right tibia-fibula 2 views HISTORY: 42-year-old woman with a fall while hiking. Right ankle fracture. Two views of the right tibia and fibula as well as 3 nonweightbearing views of the right ankle are submitted for examination with no prior study available for comparison. On the first radiograph of the tibia and fibula, there is a comminuted fracture of the distal posterior tibia and fibula with posterior dislocation of the right ankle. There is moderate soft tissue swelling as well as a joint effusion. On the second study, there has been interval splinting of the right ankle which obscures fine osseous detail. Alignment is improved. There is persistent mild displacement of the distal and posterior fractures of the right tibia and fibula. IMPRESSION: ?? Fracture/dislocation of the right ankle with interval splinting and improved alignment. Requested By: FELICIA SAMS M.D. Dictated By: ?? DARCIE DUNHAM M.D. ??on Jun ??3 2016 11:39P This document has been electronically signed by: STAN TONEY M.D. on Jun ??2016 10:11A [id number] GARCIA M.D. FINAL REPORT The radiology attending physician has personally reviewed this study, and has reviewed and/or edited this written report and agrees with it. Attending: ??CLINTON, ??JOSE Requesting: ??NAOMI, ??FELICIA Requesting Fax: ?? Attending Fax: ?? Attending ID: ??[id number] Requesting ID: ??[id number] Report To 1 ID: ??[id number] ? Report To 1 Name: ??, ?? Report To 1 FAX: ?? NextGen Order #: ?? Procedure Note Miscellaneous, Not In File - 08/11/2017 Gabrielle GARCIA M.D. FINAL REPORT The radiology attending physician has personally reviewed this study, and has reviewed and/or edited this written report and agrees with it. ACC# Date Time Exam [id number] Jun 15, 2017 22:10:00 [id number] Tibia Fibula 2 views R [id number] Jun 15, 2017 22:56:00 [id number] Ankle Complt. min 3 views R EXAMINATION: 1. Right ankle complete minimum 3 views 2. Right tibia-fibula 2 views HISTORY: 42-year-old woman with a fall while hiking. Right anklefracture. Two views of the right tibia and fibula as well as 3 nonweightbearing views of the right ankle are submitted for examination with no prior study available for comparison. On the first radiograph of the tibia and fibula, there is a comminuted fracture of the distal posterior tibia and fibula with posterior dislocation of the right ankle. There is moderate soft tissue swelling as well as a joint effusion. On the second study, there has been interval splinting of the right ankle which obscures fine osseous detail. Alignment is improved. There is persistent mild displacement of the distal and posterior fractures of the right tibia and fibula. IMPRESSION: Fracture/dislocation of the right ankle with interval splinting and improved alignment. Requested By: FELICIA SAMS M.D. Dictated By: DARCIE DUNHAM M.D. on Jun 15 2017 11:39P This document has been electronically signed by: STAN TONEY M.D. on Jun 16 2017 10:11A [id number] GARCIA M.D. FINAL REPORT The radiology attending physician has personally reviewed this study, and has reviewed and/or edited this written report and agrees with it. Attending: JOSE VERDUGO Requesting: FELICIA SAMS Requesting Fax: Attending Fax: Attending ID: [id number] Requesting ID: [id number] Report To 1 ID: [id number] Report To 1 Name: , Report To 1 FAX: NextGen Order #: Felicia Sams MD IMG XR PROCEDURES Edited Result - Final * XR Tibia Fibula 2 VW (06/16/2017 3:10 AM CDT) Anatomical Region Laterality Modality N/A Radiographic Dagmar ging 06/16/2017 3:10 AM CDT Narrative 06/16/2017 3:10 AM CDT Gabrielle GARCIA M.D. FINAL REPORT The radiology attending physician has personally reviewed this study, and has reviewed and/or edited this written report and agrees with it. ACC# ??Date Time ??Exam [id number] Jun 15, 2017 22:10:00 [id number] Tibia Fibula 2 views R [id number] Jun 15, 2017 22:56:00 [id number] Ankle Complt. min 3 views R EXAMINATION: ?? 1. Right ankle complete minimum 3 views 2. Right tibia-fibula 2 views HISTORY: 42-year-old woman with a fall while hiking. Right ankle fracture. Two views of the right tibia and fibula as well as 3 nonweightbearing views of the right ankle are submitted for examination with no prior study available for comparison. On the first radiograph of the tibia and fibula, there is a comminuted fracture of the distal posterior tibia and fibula with posterior dislocation of the right ankle. There is moderate soft tissue swelling as well as a joint effusion. On the second study, there has been interval splinting of the right ankle which obscures fine osseous detail. Alignment is improved. There is persistent mild displacement of the distal and posterior fractures of the right tibia and fibula. IMPRESSION: ?? Fracture/dislocation of the right ankle with interval splinting and improved alignment. Requested By: FELICIA SAMS M.D. Dictated By: ?? DARCIE DUNHAM M.D. ??on Jun ??3 2016 11:39P This document has been electronically signed by: STAN TONEY M.D. on Jun ??2016 10:11A [id number] GARCIA M.D. FINAL REPORT The radiology attending physician has personally reviewed this study, and has reviewed and/or edited this written report and agrees with it. Attending: ??CLINTON, ??JOSE Requesting: ??NAOMI, ??FELICIA Requesting Fax: ?? Attending Fax: ?? Attending ID: ??[id number] Requesting ID: ??[id number] Report To 1 ID: ??[id number] ? Report To 1 Name: ??, ?? Report To 1 FAX: ?? NextGen Order #: ?? Procedure Note Miscellaneous, Not In File - 08/11/2017 STAN TONEY M.D. DARCIE DUNHAM M.D. FINAL REPORT The radiology attending physician has personally reviewed this study, and has reviewed and/or edited this written report and agrees with it. ACC# Date Time Exam [id number] Jun 15, 2017 22:10:00 [id number] Tibia Fibula 2 views R [id number] Jun 15, 2017 22:56:00 [id number] Ankle Complt. min 3 views R EXAMINATION: 1. Right ankle complete minimum 3 views 2. Right tibia-fibula 2 views HISTORY: 42-year-old woman with a fall while hiking. Right anklefracture. Two views of the right tibia and fibula as well as 3 nonweightbearing views of the right ankle are submitted for examination with no prior study available for comparison. On the first radiograph of the tibia and fibula, there is a comminuted fracture of the distal posterior tibia and fibula with posterior dislocation of the right ankle. There is moderate soft tissue swelling as well as a joint effusion. On the second study, there has been interval splinting of the right ankle which obscures fine osseous detail. Alignment is improved. There is persistent mild displacement of the distal and posterior fractures of the right tibia and fibula. IMPRESSION: Fracture/dislocation of the right ankle with interval splinting and improved alignment. Requested By: FELICIA SAMS M.D. Dictated By: DARCIE DUNHAM M.D. on Jun 15 2017 11:39P This document has been electronically signed by: STAN TONEY M.D. on Jun 16 2017 10:11A [id number] GARCIA M.D. FINAL REPORT The radiology attending physician has personally reviewed this study, and has reviewed and/or edited this written report and agrees with it. Attending: JOSE VERDUGO Requesting: FELICIA SAMS Requesting Fax: Attending Fax: Attending ID: [id number] Requesting ID: [id number] Report To 1 ID: [id number] Report To 1 Name: , Report To 1 FAX: NextGen Order #: Felicia Sams MD IMG XR PROCEDURES Edited Result - Final * DISCHARGE LABORATORY CUMULATIVE REPORT (06/16/2017 12:00 AM CDT) Narrative 06/16/2017 12:00 AM CDT Ordered by an unspecified provider. Historical Provider LAB BLOOD ORDERABLES Serene l Result * ELECTROCARDIOGRAPHY (ECG) (06/16/2017) Provider Scanning ECG ORDERABLES Final Result * Type and screen (06/15/2017 8:57 PM CDT) Pathologist [facility] [place] Kate, indirect Negative [facility] ABO Rh O Positive [facility] Blood specimen (specimen) 06/15/2017 8:57 PM CDT 06/15/2017 9:15 PM CDT Fleicia Sams MD LAB BLOOD BANK TEST ORDER LATRICE Final Result [facility] One [facility] Department [place] [address] * Basic metabolic panel (06/15/2017 8:57 PM CDT) Pathologist [facility] [place] Sodium 142 135 - 145 mmol/L [facility] Potassium, pl 3.7 3.3 - 4.9 mmol/L [facility] Chloride 105 97 - 110 mmol/L [facility] CO2 23 22 - 32 mmol/L [facility] BUN 22 8 - 25 mg/dL [facility] Glucose 103 70 - 199 mg/dL [facility] Creatinine 0.65 0.60 - 1.10 mg/dL [facility] Calcium 9.2 8.5 - 10.3 mg/dL [facility] Anion gap 14 2 - 15 mmol/L [facility] Blood specimen (specimen) 06/15/2017 8:57 PM CDT 06/15/2017 9:36 PM CDT Felicia Sams MD LAB BLOOD ORDERABLES Serene alcantara Result Performing Organization Address [facility] de Phone Number [facility] One [facility] [place] [address] * aPTT (06/15/2017 8:57 PM CDT) aPTT 34.1 25.0 - 37.0 sec [facility] Comment: Interpretive Data Therapeutic heparin range:60.0 - 94.0 sec based on correlation with therapeutic heparin activity range of 0.3 -0.7 Units/mL. Current interpretive data was last revised on 2011. Blood specimen (specimen) 06/15/2017 8:57 PM CDT 06/15/2017 9:23 PM CDT Felicia Sams MD LAB BLOOD ORDERABLES Serene alcantara Result Performing Organization Address [facility] de Phone Number [facility] [place] [address] * Protime-INR (06/15/2017 8:57 PM CDT) PT 13.6 9.2 - 14.0 sec [facility] INR 1.19 0.81 - 1.22 [facility] Comment: Interpretive Data Inpatient therapeutic ranges* Atrial fibrillation ?2.0-3.0 INR Venous thrombo-embolism ?2.0-3.0 INR Bioprosthetic heart valve ?* Mechanical heart valve, bileaflet or tilting disk,aortic position ? 2.0-3.0 INR All other,or bileaflet or tilting disk, in mitral position ? 2.5-3.5 INR *See the pharmacy resource directory (PHRED) for an updated copy of the Tool Book at [email or web address] Current Interpretive Data was last revised 2011. Blood specimen (specimen) 06/15/2017 8:57 PM CDT 06/15/2017 9:23 PM CDT Felicia Sams MD LAB BLOOD ORDERABLES Serene l Result Performing Organization Address [facility] Co de Phone Number [facility] [place] [address] * (ABNORMAL) Differential, auto (06/15/2017 8:57 PM CDT) Neutrophil pct 75.9 % [facility] Imm gran pct 0.4 % [facility] Lymphocyte pct 17.5 % [facility] Monocyte pct 5.6 % [facility] Eosinophil pct 0.2 % [facility] Basophil pct 0.4 % [facility] Neutrophil abs 7.25(H) 1.70 - 6.50 K/cumm [facility] Imm gran abs 0.04 0.00 - 0.10 K/cumm [facility] Lymphocyte abs 1.67 0.80 - 3.30 K/cumm [facility] Monocyte abs 0.54 0.20 - 0.80 K/cumm [facility] Eosinophil abs 0.02 0.00 - 0.50 K/cumm [facility] Basophil abs 0.04 0.00 - 0.10 K/cumm [facility] Blood specimen (specimen) 06/15/2017 8:57 PM CDT 06/15/2017 9:36 PM CDT Felicia Sams MD LAB BLOOD ORDERABLES Serene l Result Performing Organization Address City/[facility]/ZIP Co de Phone Number JOSE ANTONIO [facility] Department [place] [address] * CBC with auto differential (06/15/2017 8:57 PM CDT) WBC 9.56 3.80 - 9.90 K/cumm [facility] RBC 4.45 3.90 - 5.20 M/cumm [facility] Hgb 12.5 11.9 - 15.5 g/dL [facility] Hct 37.4 35.6 - 45.5 % [facility] MCV 84.0 81.3 - 96.4 fL [facility] MCH 28.1 27.1 - 33.3 pg [facility] MCHC 33.4 32.3 - 35.7 g/dL [facility] RDW CV 13.1 11.1 - 14.9 % [facility] RDW SD 39.9 35.7 - 48.1 fL [facility] Plt 376 150 - 400 K/cumm [facility] MPV 10.7 9.1 - 12.3 fL [facility] NRBC 0.0 0.0 - 0.2 % [facility] NRBC abs 0.00 0.00 - 0.01 K/cumm [facility] Blood specimen (specimen) 06/15/2017 8:57 PM CDT 06/15/2017 9:36 PM CDT us Felicia Sams MD LAB BLOOD ORDERABLES Serene l Result [facility] One [facility] Department [place] [address] documented in this encounter Visit Diagnoses Not on filedocumented in this encounter Care Teams Financial Systems Director Relationship Specialty Start Date End Date No, Physician PCP - General 06/15/17 07/08/17 documented as of this encounter
--- OUTSIDE RECORDS SUMMARY | 2024-10-20 04:02 | XMS_ITS | Encounter Summary ---
Author Organization [facility] Healthcare Address [address] [place] [address] Care Team Providers Care Chain Carrier Name Role Phone Unavailable Primary Care Provider Unavailabl e Encounter Details Date Type Department Care Team (Late st Contact Info) Description 11/18/2011 12:07 PM [facility] - 11/18/2011 12:50 PM [facility] Hospital Encounter [facility] Emir Christian MD [address] [place] [address] Sprain and strain of shoulder and upper arm; Overexertion from sudden strenuous movement Social History Tobacco Use Types Packs/Day Years Used Date Smoking Tobacco: Never Assessed Comments Unknown Sex and Gender Information Value Date Recorded Sex Assigned at Not on file 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
--- OUTSIDE RECORDS SUMMARY | 2024-10-20 04:02 | XMS_ITS | Encounter Summary ---
Author Organization [facility] Healthcare Address [address] [place] [address] Care Team Providers Care Gun Synchronizer Name Role Phone Unavailable Primary Care Provider Unavailabl e Encounter Details Date Type Department Care Team (Late st Contact Info) Description 01/21/2011 7:09 AM CDT - 01/21/2011 8:46 AM CDT Hospital Encounter [facility] Kenn Smith Otitis media; Infective otitis externa; Migraine Social History Tobacco Use Types Packs/Day Years Used Date Smoking Tobacco: Never Assessed Comments Unknown Sex and Gender Information Value Date Recorded Sex Assigned at Not on file 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
--- OUTSIDE RECORDS SUMMARY | 2024-10-20 04:02 | XMS_ITS | Encounter Summary ---
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
--- OUTSIDE RECORDS SUMMARY | 2024-10-20 04:02 | XMS_ITS | Encounter Summary ---
Author Organization [facility] Address [address] [place] [address] Care Team Providers Care Business Integration Analyst Name Role Phone Clary Xavier MD Primary Care Provider [phone] Encounter Details Date Type Department Care Team (Late st Contact Info) Description 03/28/2014 9:52 AM CDT - 03/28/2014 11:02 AM CDT Hospital Encounter [facility] Kush Faustin MD [address] [facility] [place] [address] [place] [address] Contact dermatitis and other eczema due to plants (except food); Poisoning and toxic reactions caused by other plants; Place of occurrence, home; Activities involving gardening and landscaping Social History Tobacco Use Types Packs/Day Years Used Date Smoking Tobacco: Never Alcohol Use Standard Drinks/Week Comments No 0 (1 standard drink = 0.6 oz pur e alcohol) Comments Unknown Sex and Gender Information Value Date Recorded Sex Assigned at Not on file 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 Sex Female 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 CURATOR OF 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 Gender Identity Not on file Sexual Orientation Not on file documented as of this encounter Medications at Time of Discharge citalopram (CeleXA) 10 mg/5 mL suspension take 10 milliliter by oral route every day 0 0 01/18/2014 7 estradiol (ESTRACE) 0.01 % (0.1 mg/gram) vaginal cream insert (1G) by vaginal route every week 0 0 01/18/2014 8 estrogens conjugated, synthetic A, (CENESTIN) 0.3 mg tablet take 1 tablet by oral route every day 0 0 04/28/2013 8 losartan (COZAAR) 25 mg tablet take 1 tablet by oral route every day 0 0 01/18/2014 8 documented as of this encounter Plan of Treatment Not on file documented as of this encounter Visit Diagnoses Diagnosis Contact dermatitis and other eczema due to plants (except food) Poisoning and toxic reactions caused by other plants Place of occurrence, home Activities involving gardening and landscaping documented in this encounter Care Teams Business Integration Analyst Relationship Specialty Start Date End Date Clary Xavier MD [address] [place] [address] PCP - General 08/21/12 02/04/17 documented as of this encounter
--- OUTSIDE RECORDS SUMMARY | 2024-10-20 04:02 | XMS_ITS | Encounter Summary ---
Author Organization [facility] Healthcare Address [address] [place] [address] Care Team Providers Care Submarine Worker Name Role Phone Unavailable Primary Care Provider Unavailabl e Encounter Details Date Type Department Care Team (Late st Contact Info) Description 05/01/2011 4:45 PM CDT - 05/01/2011 5:22 PM CDT Hospital Encounter [facility] Kenn Torres MD [address] [address] Conjunctivitis; Acute pharyngitis Social History Tobacco Use Types Packs/Day Years Used Date Smoking Tobacco: Never Assessed Comments Unknown Sex and Gender Information Value Date Recorded Sex Assigned at Not on file 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
--- OUTSIDE RECORDS SUMMARY | 2024-10-20 04:02 | XMS_ITS | Encounter Summary ---
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
--- OUTSIDE RECORDS SUMMARY | 2024-10-20 04:02 | XMS_ITS | Encounter Summary ---
Author Organization [facility] Healthcare Address [address] [place] [address] Care Team Providers Care Repairer Hairspring Name Role Phone Clary Xavier MD Primary Care Provider [phone] Encounter Details Date Type Department Care Team (Late st Contact Info) Description 05/05/2014 3:53 PM CDT - 05/05/2014 11:59 PM CDT Hospital Encounter [facility] Jaret Morejon MD [address] [place] [address] Crista Weber PA [address] [place] [address] [address] [place] [address] Pain in joint, lower leg; Effusion of lower leg joint Social History Tobacco Use Types Packs/Day Years Used Date Smoking Tobacco: Never Alcohol Use Standard Drinks/Week Comments No 0 (1 standard drink = 0.6 oz pur e alcohol) Comments Unknown Sex and Gender Information Value Date Recorded Sex Assigned at Not on file 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 RESULT: TECHNIQUE: Coronal PD and fat sat PD; sagittal PD and fat sat PD; axial fat sat PD. FINDINGS: Correlation is made to a previous MRI from 08/25/2012 and to plain radiographs from 04/30/2014. There is no focal bone marrow edema. ??There are small subchondral cysts in the posterior central patella as well as in the central proximal tibia. ??A small joint effusion is present. The medial and lateral collateral ligaments, anterior and posterior cruciate ligaments, distal quadriceps tendon and patellar tendon are intact. ??There is no discrete meniscal tear. There is focal cartilage loss involving a portion of the central aspect of the patellar articular cartilage, but that pattern is very similar to the previous study from 2011. IMPRESSION: 1. SMALL JOINT EFFUSION. 2. CRUCIATE AND COLLATERAL LIGAMENTS AND MENISCI INTACT. 3. SMALL AREA OF FOCAL CARTILAGE LOSS IN THE CENTRAL ASPECT OF THE PATELLA BUT THE APPEARANCE HAS NOT SIGNIFICANTLY CHANGED SINCE THE 2012 STUDY. Interpreting Physician: ??FLY MAURER M.D. ??Read on: ??May 05 2014 ??7:04P Transcribed by: ??salvador ??On: May 06 2014 11:48A Approved Electronically by: ??FLY MAURER M.D. ??on: ??May 06 2014 12:35P Ordering DR: CRISTA WEBER PA-C Attending DR: JARET BOONE Procedure Note Provider, MD Adolfo - 02/05/2017 MRI KNEE - LEFT Acc#: [id number] DATE OF EXAM: May 05 2014 CLINICAL HISTORY: Knee pain. RESULT: TECHNIQUE: Coronal PD and fat sat PD; sagittal PD and fat sat PD; axial fat satPD. FINDINGS: Correlation is made to a previous MRI from 08/25/2012 and to plainradiographs from 04/30/2014. There is no focal bone marrow edema. Thereare small subchondral cysts in the posterior central patella as well as inthe central proximal tibia. A small joint effusion is present. The medialand lateral collateral ligaments, anterior and posterior cruciateligaments, distal quadriceps tendon and patellar tendon are intact. Thereis no discrete meniscal tear. There is focal cartilage loss involving aportion of the central aspect of the patellar articular cartilage, butthat pattern is very similar to the previous study from 2011. IMPRESSION: 1. SMALL JOINT EFFUSION. 2. CRUCIATE AND COLLATERAL LIGAMENTS AND MENISCI INTACT. 3. SMALL AREA OF FOCAL CARTILAGE LOSS IN THE CENTRAL ASPECT OF THE PATELLABUT THE APPEARANCE HAS NOT SIGNIFICANTLY CHANGED SINCE THE 2012 STUDY. Interpreting Physician: FLY MAURER M.D. Read on: May 05 2014 7:04P Transcribed by: salvador On: May 06 2014 11:48A Approved Electronically by: FLY MAURER M.D. on: May 06 2014 12:35P Ordering DR: CRISTA WEBER PA-C Attending DR: JARET BOONE us Historical Provider MD FAJARDO MRI PROCEDURES Final Result documented in this encounter Visit Diagnoses Diagnosis Pain in joint, lower leg Effusion of lower leg joint documented in this encounter Care Teams Repairer Hairspring Relationship Specialty Start Date End Date Clary Xavier MD [address] [place] [address] PCP - General 08/21/12 02/04/17 documented as of this encounter
--- OUTSIDE RECORDS SUMMARY | 2024-10-20 04:02 | XMS_ITS | Encounter Summary ---
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
--- OUTSIDE RECORDS SUMMARY | 2024-10-20 04:02 | XMS_ITS | Encounter Summary ---
Author Organization [facility] Healthcare Address [address] [place] [address] Care Team Providers Care Library Historian Name Role Phone Clary Xavier MD Primary Care Provider [phone] Encounter Details Date Type Department Care Team (Late st Contact Info) Description 08/25/2012 9:50 AM LINK ASSEMBLER - 09/18/2012 11:59 PM LINK ASSEMBLER Hospital Encounter [facility] Vijaya Brock MD [address] [place] [address] Encounter for other physical therapy; Pain in joint, lower leg Social History Tobacco Use Types Packs/Day Years Used Date Smoking Tobacco: Never Assessed Comments Unknown Sex and Gender Information Value Date Recorded Sex Assigned at Not on file 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
--- OUTSIDE RECORDS SUMMARY | 2024-10-20 04:02 | XMS_ITS | Encounter Summary ---
Author Organization [facility] Healthcare Address [address] [place] [address] Care Team Providers Care Rheumatology Specialist Name Role Phone Clary Xavier MD Primary Care Provider [phone] Encounter Details Date Type Department Care Team (Late st Contact Info) Description 10/20/2012 12:43 PM CLIENT PORTFOLIO MANAGER - 10/20/2012 11:59 PM CLIENT PORTFOLIO MANAGER Hospital Encounter [facility] CLINJaret Rlodan MD [address] [place] [address] [address] [address] Dietary counseling and surveillance; Obesity Social History Tobacco Use Types Packs/Day Years Used Date Smoking Tobacco: Never Assessed Comments Unknown Sex and Gender Information Value Date Recorded Sex Assigned at Not on file Legal Sex Female 2:14 AM CLIENT PORTFOLIO MANAGER Gender Identity Not on file Sexual Orientation Not on file documented as of this encounter Plan of Treatment Not on file documented as of this encounter Visit Diagnoses Diagnosis Dietary counseling and surveillance Obesity Obesity, unspecified documented in this encounter Care Teams Rheumatology Specialist Relationship Specialty Start Date End Date Clary Xavier MD [address] [place], [place] [address] PCP - General 08/21/12 02/04/17 documented as of this encounter
--- OUTSIDE RECORDS SUMMARY | 2024-10-20 04:02 | XMS_ITS | Encounter Summary ---
Author Organization [facility] Healthcare Address [address] [place] [address] Care Team Providers Care Mender Knit Goods Name Role Phone Clary Xavier MD Primary Care Provider Encounter Details Date Type Department Care Team (Late st Contact Info) Description 01/05/2012 7:05 PM CDT - 01/05/2012 9:35 PM CDT Hospital Encounter [facility] Guido Turner MD [address] [place] [address] Enthesopathy; Other depressive disorder Social History Tobacco Use Types Packs/Day Years Used Date Smoking Tobacco: Never Assessed Comments Unknown Sex and Gender Information Value Date Recorded Sex Assigned at Not on file Legal Sex Female 2:14 AM OXYGEN THERAPIST Gender Identity Not on file Sexual Orientation Not on file documented as of this encounter Plan of Treatment Not on file documented as of this encounter Visit Diagnoses Diagnosis Enthesopathy Enthesopathy of unspecified site Other depressive disorder documented in this encounter Care Teams Mender Knit Goods Relationship Specialty Start Date End Date Clary Xavier MD [address] [place] [address] PCP - General 12/25/11 08/20/12 documented as of this encounter
--- OUTSIDE RECORDS SUMMARY | 2024-10-20 04:02 | XMS_ITS | Encounter Summary ---
Author Organization [facility] Healthcare Address [address] [place] [address] Care Team Providers Care Cranberry Grower Name Role Phone Clary Xavier MD Primary Care Provider [phone] Encounter Details Date Type Department Care Team (Late st Contact Info) Description 08/19/2014 9:46 AM WIDE AREA NETWORK SYSTEMS ADMINISTRATOR - 08/19/2014 1:30 PM WIDE AREA NETWORK SYSTEMS ADMINISTRATOR Hospital Encounter [facility] Onur Gomez MD [address] [place] [id number] Other specified gastritis; Essential hypertension; Personal history of allergy to penicillin Social History Tobacco Use Types Packs/Day Years Used Date Smoking Tobacco: Never Alcohol Use Standard Drinks/Week Comments No 0 (1 standard drink = 0.6 oz pur e alcohol) Comments Unknown Sex and Gender Information Value Date Recorded Sex Assigned at Not on file Legal Sex Female 2:14 AM WIDE AREA NETWORK SYSTEMS ADMINISTRATOR Gender Identity Not on file Sexual Orientation [...] Procedure Name Priority Date/Time Associated Diagnosis Comments MICROBIOLOGY SUMMARY Routine 08/19/2014 12:00 AM WIDE AREA NETWORK SYSTEMS ADMINISTRATOR DISCHARGE LABORATORY CUMULATIVE REPORT Routine 08/19/2014 12:00 AM WIDE AREA NETWORK SYSTEMS ADMINISTRATOR documented in this encounter Results * Microbiology Summary (08/19/2014 12:00 AM WIDE AREA NETWORK SYSTEMS ADMINISTRATOR) 08/19/2014 Narrative HISTORICAL RESULTS - 08/21/2014 2:50 AM WIDE AREA NETWORK SYSTEMS ADMINISTRATOR ? [facility] ?CLINICAL LABORATORIES ? MICROBIOLOGY REPORT PATIENT NAME: ??ISAMAR SOLIZ ?MED RECORD#: ??[id number] BIRTHDATE: ??1975 ?? AGE: ??39 YRS SEX: F ?PATIENT#: ? [id number] ADMITTING DR: ??ONUR HERNANDEZ MD ? ATTENDING DR: ??ONUR HERNANDEZ MD ?ACCESSION#: ?? [id number] CREATED: ??08/21/14 ?? 0238 ? ADMIT DATE: ?? 08/19/14 ? MICRO - MISCELLANEOUS H PYLORI UREASE SCREEN ?Collected: 08/19/14 1227 ? Received: 08/19/14 1339 Source: TISSUE ?Started: 08/19/14 1339 ?TISSUE ?08/20/14 1210 ? NEGATIVE ANNABELLE TEST ?? END OF CHART us Historical Provider MD LAB MICROBIOLOGY - GENERA L ORDERABLES Final Result HISTORICAL RESULTS * Discharge Laboratory Cumulative Report (08/19/2014 12:00 AM WIDE AREA NETWORK SYSTEMS ADMINISTRATOR) 08/19/2014 Narrative HISTORICAL RESULTS - 08/21/2014 2:39 AM WIDE AREA NETWORK SYSTEMS ADMINISTRATOR Patient No: [id number] ? [facility] Patient Name: ISAMAR SOLIZ ?C Healthcare Age: 39 YRS ?: 1975 ?Sex:F ?[address] )[id number] ?? Adm Dt: 08/19/2014 ?[place] ??[id number] Created: 08/21/2014 ??0239 ?? Pt. Type: O ? Discharge Dt: 08/19/2014 ? Pathologists: Paradise Sandhu MD Admit Attend Dr: ONUR HERNANDEZ MD ? MICRO - MISCELLANEOUS H PYLORI UREASE SCREEN ?Collected: 08/19/14 1227 ? Received: 08/19/141338 Source: TISSUE ?Started: 08/19/141338 ?TISSUE ? FINAL REPORT ?08/20/14 1210 ? NEGATIVE ANNABELLE TEST ?? END OF CHART ? Page: ?? 1 us Historical Provider LAB BLOOD ORDERABLES Serene alcantara Result HISTORICAL RESULTS documented in this encounter Visit Diagnoses Diagnosis Other specified gastritis Essential hypertension Unspecified essential hypertension Personal history of allergy to penicillin documented in this encounter Care Teams Cranberry Grower Relationship Specialty Start Date End Date Clary Xavier MD [address] [place] [id number] PCP - General 08/21/12 02/04/17 documented as of this encounter
--- OUTSIDE RECORDS SUMMARY | 2024-10-20 04:02 | XMS_ITS | Encounter Summary ---
Author Organization [facility] Healthcare Address [address] [place] [address] Care Team Providers Care Stone Polisher Name Role Phone Clary Xavier MD Primary Care Provider [phone] Encounter Details Date Type Department Care Team (Latest Contact Info) Description 12/24/2014 6:42 PM CDT - 12/24/2014 7:49 PM CDT Hospital Encounter [facility] Arleth Sanchez Open wound of hand; Essential hypertension; Need for prophylactic vaccination with combined vwawxbmkwz-blbmqnz-qj rtussis (DTP) vaccine; Dog bite; Place of occurrence, home Social History Tobacco Use Types Packs/Day Years Used Date Smoking Tobacco: Never Alcohol Use Standard Drinks/Week Comments No 0 (1 standard drink = 0.6 oz pur e alcohol) Comments Unknown Sex and Gender Information Value Date Recorded Sex Assigned at Not on file Legal Sex Female 2:14 AM CONSTRUCTION QUALITY CONTROL MANAGER Gender Identity Not on file Sexual [...] Procedure Name Priority Date/Time Associated Diagnosis Comments HAND RADIOGRAPHY Routine 12/24/2014 7:09 PM CDT documented in this encounter Results * HAND RADIOGRAPHY (12/24/2014 7:09 PM CDT) Anatomical Region Laterality Modality N/A Radiographic Dagmar ging 12/24/2014 7:09 PM CDT Narrative 12/25/2014 10:18 AM CDT XR Hand L ?[id number] ??Acc#: ??[id number] DATE OF EXAM: ??Dec 24 2014 CLINICAL HISTORY: Dog bite to the left hand involving the 4th and 5th digits. RESULT: PA, lateral, and oblique views of the left hand were obtained. ??No fracture or dislocation is noted. ??The joint spaces are well maintained. No lytic or blastic lesions are seen. ??No radiopaque foreign objects are noted. IMPRESSION: 1. NO FRACTURE OR RADIOPAQUE FOREIGN OBJECT. Interpreting Physician: ??ANDRA RIVAS M.D. ??Read on: ??Dec 24 2014 7:19P Transcribed by: ??elliot ??On: Dec 25 2014 10:00A Approved Electronically by: ??ANDRA RIVAS M.D. ??on: ??Dec 25 2014 10:18A Attending: ??ARLETH BERNSTEIN Requesting: ??Vel, Requesting Fax: ??-- Attending Fax: ??-- Attending ID: ?? Requesting ID: ?? Report To 1 ID: ??[id number] Report To 1 Name: ??ARLETH BERNSTEIN Report To 1 FAX: ??-- NextGen Order #: Procedure Note Provider, MD Adolfo - 02/05/2017 XR Hand L [id number] Acc#: [id number] DATE OF EXAM: Dec 24 2014 CLINICAL HISTORY: Dog bite to the left hand involving the 4th and 5th digits. RESULT: PA, lateral, and oblique views of the left hand were obtained. Nofracture or dislocation is noted. The joint spaces are well maintained.No lytic or blastic lesions are seen. No radiopaque foreign objects arenoted. IMPRESSION: 1. NO FRACTURE OR RADIOPAQUE FOREIGN OBJECT. Interpreting Physician: ANDRA RIVAS M.D. Read on: Dec 24 20147:19P Transcribed by: elliot On: Dec 25 2014 10:00A Approved Electronically by: ANDRA RIVAS M.D. on: Dec 25 201410:18A Attending: ARLETH BERNSTEIN Requesting: Alison Crowder Fax: -- Attending Fax: -- Attending ID: Requesting ID: Report To 1 ID: [id number] Report To 1 Name: ARLETH BERNSTEIN Report To 1 FAX: -- NextGen Order #: us Historical Provider MD FAJARDO XR PROCEDURES Final R esult documented in this encounter Visit Diagnoses Diagnosis Open wound of hand Essential hypertension Unspecified essential hypertension Need for prophylactic vaccination with combined ghdkqxkbuj-qcibiqq-bbfweyeuz (DTP) vaccine Dog bite Place of occurrence, home documented in this encounter Care Teams Stone Polisher Relationship Specialty Start Date End Date Clary Xavier MD [address] [place] [address] PCP - General 08/21/12 02/04/17 documented as of this encounter
--- OUTSIDE RECORDS SUMMARY | 2024-10-20 04:02 | XMS_ITS | Encounter Summary ---
Author Organization [facility] Healthcare Address [address] [place] [address] Care Team Providers Care Government Property Inspector Name Role Phone Pita Hernandez MD Primary Care Provider [phone] Encounter Details Date Type Department Care Team (Late st Contact Info) Description 04/30/2014 2:01 PM CDT - 04/30/2014 3:07 PM CDT Hospital Encounter [facility]INCON[facility] Kenn Torres MD [address] [address] Contusion of knee; Fall from other slipping, tripping, or stumbling; Unspecified place of occurrence Social History Tobacco Use Types Packs/Day Years Used Date Smoking Tobacco: Never Alcohol Use Standard Drinks/Week Comments No 0 (1 standard drink = 0.6 oz pur e alcohol) Comments Unknown Sex and Gender Information Value Date Recorded Sex Assigned at Not on file Legal Sex Female 2:14 AM ELECTRONIC SEMICONDUCTOR PROCESSOR Gender Identity Not on file Sexual Orientation [...] oral route every day 0 0 04/28/2013 11/25/201 8 losartan (COZAAR) 25 mg tablet take 1 tablet by oral route every day 0 0 01/18/2014 8 documented as of this encounter Plan of Treatment Not on file documented as of this encounter Procedures Procedure Name Priority Date/Time Associated Diagnosis Comments XR KNEE 4+ VW Routine 04/30/2014 2:38 PM CDT documented in this encounter Results * XR Knee 4+ VW (04/30/2014 2:38 PM CDT) Anatomical Region Laterality Modality N/A Radiographic Dagmar ging 04/30/2014 2:38 PM CDT Narrative 05/01/2014 4:00 PM CDT XR Knee Min 4 Views L ??[id number] ??Acc#: ??[id number] DATE OF EXAM: ??Apr 30 2014 CLINICAL HISTORY: Knee gave out on her today. ??Medial knee pain. RESULT: Four views demonstrate no fracture, dislocation or bone destruction. Articular surfaces appear smooth. ??No soft tissue calcification or joint effusion is seen. IMPRESSION: 1. NORMAL LEFT KNEE. Interpreting Physician: ??DR TAN PHILLIPS M.D. ??Read on: ??Apr 30 2014 3:42P Transcribed by: ??elliot ??On: May 01 2014 10:16A Approved Electronically by: ??ALAN Anthony, DR MADDOX ??on: ??May 01 2014 4:00P Ordering DR: ??Rachel Attending DR: PITA HERNANDEZ Procedure Note Provider, MD Adolfo - 02/05/2017 XR Knee Min 4 Views L [id number] Acc#: [id number] DATE OF EXAM: Apr 30 2014 CLINICAL HISTORY: Knee gave out on her today. Medial knee pain. RESULT: Four views demonstrate no fracture, dislocation or bone destruction.Articular surfaces appear smooth. No soft tissue calcification or jointeffusion is seen. IMPRESSION: 1. NORMAL LEFT KNEE. Interpreting Physician: DR TAN PHILLIPS M.D. Read on: Apr 30 20143:42P Transcribed by: elliot On: May 01 2014 10:16A Approved Electronically by: DR TAN PHILLIPS M.D. on: May 01 20144:00P Ordering DR: Rachel Attending DR: PITA HERNANDEZ us Historical Provider MD FAJARDO XR PROCEDURES Final R esult documented in this encounter Visit Diagnoses Diagnosis Contusion of knee Fall from other slipping, tripping, or stumbling Unspecified place of occurrence documented in this encounter Care Teams Government Property Inspector Relationship Specialty Start Date End Date Pita Hernandez MD [address] [place] [address] PCP - General 08/21/12 02/04/17 documented as of this encounter
--- OUTSIDE RECORDS SUMMARY | 2024-10-20 04:02 | XMS_ITS | Encounter Summary ---
Author Organization [facility] Healthcare Address [address] [place] [address] Care Team Providers Care Boom Cat Operator Name Role Phone Clary Xavier MD Primary Care Provider [phone] Encounter Details Date Type Department Care Team (Late st Contact Info) Description 08/25/2012 3:17 PM PROGRAMMER BUSINESS - 08/25/2012 11:59 PM PROGRAMMER BUSINESS Hospital Encounter [facility] Vijaya Brock MD [address] [place] [address] Pain in joint, lower leg; Effusion of lower leg joint Social History Tobacco Use Types Packs/Day Years Used Date Smoking Tobacco: Never Assessed Comments Unknown Sex and Gender Information Value Date Recorded Sex Assigned at Not on file Legal Sex Female 2:14 AM PROGRAMMER BUSINESS Gender Identity Not on file Sexual Orientation Not on file documented as of this encounter Plan of Treatment Not on file documented as of this encounter Visit Diagnoses Diagnosis Pain in joint, lower leg Effusion of lower leg joint documented in this encounter Care Teams Boom Cat Operator Relationship Specialty Start Date End Date Clary Xavier MD [address] [place] [address] PCP - General 08/21/12 02/04/17 documented as of this encounter
--- OUTSIDE RECORDS SUMMARY | 2024-10-20 04:02 | XMS_ITS | Encounter Summary ---
Author Organization [facility] Healthcare Address [address] [place] [address] Care Team Providers Care Sewer Cleaner Name Role Phone Clary Xavier MD Primary Care Provider [phone] Encounter Details Date Type Department Care Team (Late st Contact Info) Description 10/02/2013 7:44 AM REGISTERED CLIENT ASSOCIATE - 10/02/2013 9:05 AM REGISTERED CLIENT ASSOCIATE Hospital Encounter [facility] Randi Almaraz MD [address] [facility] [place] [address] Acute pharyngitis Social History Tobacco Use Types Packs/Day Years Used Date Smoking Tobacco: Never Alcohol Use Standard Drinks/Week Comments No 0 (1 standard drink = 0.6 oz pur e alcohol) Comments Unknown Sex and Gender Information Value Date Recorded Sex Assigned at Not on file Legal Sex Female 2:14 AM REGISTERED CLIENT ASSOCIATE Gender Identity Not on file Sexual Orientation Not on file documented as of this encounter Medications at Time of Discharge estrogens conjugated, synthetic A, (CENESTIN) 0.3 mg tablet take 1 tablet by oral route every day 0 0 04/28/2013 09/06/2018 documented as of this encounter Plan of Treatment Not on file documented as of this encounter Visit Diagnoses Diagnosis Acute pharyngitis documented in this encounter Care Teams Sewer Cleaner Relationship Specialty Start Date End Date Clary Xavier MD [address] [place], [place] [id number] PCP - General 08/21/12 02/04/17 documented as of this encounter
--- OUTSIDE RECORDS SUMMARY | 2024-10-20 04:02 | XMS_ITS | Encounter Summary ---
Author Organization [facility] Healthcare Address [address] [place] [address] Care Team Providers Care Carpenter Repair Name Role Phone Clary Xavier MD Primary Care Provider [phone] Encounter Details Date Type Department Care Team (Late st Contact Info) Description 08/01/2014 10:38 AM CDT - 08/01/2014 12:22 PM CDT Hospital Encounter [facility] Kush Faustin MD [address] [facility] [address] [place] [address] Acute bronchitis; Essential hypertension Social History Tobacco Use Types Packs/Day Years Used Date Smoking Tobacco: Never Alcohol Use Standard Drinks/Week Comments No 0 (1 standard drink = 0.6 oz pur e alcohol) Comments Unknown Sex and Gender Information Value Date Recorded Sex Assigned at Not on file Legal Sex Female 2:14 AM CERAMIC TILE SETTER Gender Identity Not on file Sexual Orientation [...] of this encounter Visit Diagnoses Diagnosis Acute bronchitis Essential hypertension Unspecified essential hypertension documented in this encounter Care Teams Carpenter Repair Relationship Specialty Start Date End Date Clary Xavier MD [address] [place] [address] PCP - General 08/21/12 02/04/17 documented as of this encounter
--- OUTSIDE RECORDS SUMMARY | 2024-10-20 04:02 | XMS_ITS | Encounter Summary ---
Author Organization [facility] Healthcare Address [address] [place] [address] Care Team Providers Care Fitter Armament Name Role Phone Unavailable Primary Care Provider Unavailabl e Encounter Details Date Type Department Care Team (Late st Contact Info) Description 12/23/2011 10:01 PM CDT - 12/24/2011 12:40 AM CDT Hospital Encounter [facility] Randi Bustos MD [address] [facility] [place] [address] Sprain of ankle Social History Tobacco Use Types Packs/Day Years Used Date Smoking Tobacco: Never Assessed Comments Unknown Sex and Gender Information Value Date Recorded Sex Assigned at Not on file Legal Sex Female 2:14 AM SIEVE REPAIRER Gender Identity Not on file Sexual Orientation Not on file documented as of this encounter Plan of Treatment Not on file documented as of this encounter Visit Diagnoses Diagnosis Sprain of ankle Unspecified site of ankle sprain and strain documented in this encounter
--- OUTSIDE RECORDS SUMMARY | 2024-10-20 04:02 | XMS_ITS | Encounter Summary ---
Author Organization [facility] Healthcare Address [address] [place] [address] Care Team Providers Care Director Health Name Role Phone Clary Xavier MD Primary Care Provider [phone] Encounter Details Date Type Department Care Team (Late st Contact Info) Description 02/10/2014 9:56 AM CDT - 02/10/2014 11:59 PM CDT Hospital Encounter [facility] Jazmin Su MD [address] [place] [address] Chronic sinusitis Social History Tobacco Use Types Packs/Day Years Used Date Smoking Tobacco: Never Alcohol Use Standard Drinks/Week Comments No 0 (1 standard drink = 0.6 oz pur e alcohol) Comments Unknown Sex and Gender Information Value Date Recorded Sex Assigned at Not on file Legal Sex Female 2:14 AM LIBRARY CLERK TALKING BOOKS Gender Identity Not on file Sexual Orientation [...] Procedure Name Priority Date/Time Associated Diagnosis Comments PARANASAL SINUS COMPUTED TOMOGRAPHY (CT) Routine 02/10/2014 10:47 AM CDT documented in this encounter Results * PARANASAL SINUS COMPUTED TOMOGRAPHY (CT) (02/10/2014 10:47 AM CDT) Anatomical Region Laterality Modality N/A Computed Tomogra phy 02/10/2014 10:4 7 AM CDT Narrative 02/10/2014 3:[address] [place] ? [id number] ??Acc#: ??[id number] DATE OF EXAM: ??May ??2013 CLINICAL HISTORY: Chronic sinusitis. RESULT: Serial axial images of the paranasal sinuses and reconstructed coronal views obtained. There is a tiny amount of mucosal thickening centrally in the frontal sinus. ??The paranasal sinuses are otherwise clear. ??Both osteomeatal units are widely patent. ??Both mastoid air spaces and middle ear cavities are clear. ??There is minimal bowing of the midportion of the nasal septum toward the right and the posterior portion of the nasal septum towards the left. There is a moderate sized bridgette bullosa on the left. IMPRESSION: 1. MINIMAL MUCOSAL THICKENING CENTRALLY IN THE FRONTAL SINUS; OTHERWISE THE PARANASAL SINUSES, MASTOID AIR SPACES AND MIDDLE EAR CAVITIES ARE CLEAR. 2. MINIMAL BOWING OF THE NASAL SEPTUM. 3. MODERATE BRIDGETTE BULLOSA ON THE LEFT. Interpreting Physician: ??FLY MAURER M.D. ??Read on: ??May ??1 2013 10:58A Transcribed by: ??binh ?? On: May ??2013 ??1:37P Approved Electronically by: ??FLY MAURER M.D. ??on: ??May ??2013 ??3:07P Ordering DR: JAZMIN MARS Attending : JAZMIN MARS Procedure Note Provider, MD Adolfo - 02/05/[address] [place] [id number] Acc#: [id number] DATE OF EXAM: Feb 10 2014 CLINICAL HISTORY: Chronic sinusitis. RESULT: Serial axial images of the paranasal sinuses and reconstructed coronalviews obtained. There is a tiny amount of mucosal thickening centrally inthe frontal sinus. The paranasal sinuses are otherwise clear. Bothosteomeatal units are widely patent. Both mastoid air spaces and middleear cavities are clear. There is minimal bowing of the midportion of thenasal septum toward the right and the posterior portion of the nasalseptum towards the left. There is a moderate sized bridgette bullosa on theleft. IMPRESSION: 1. MINIMAL MUCOSAL THICKENING CENTRALLY IN THE FRONTAL SINUS; OTHERWISETHE PARANASAL SINUSES, MASTOID AIR SPACES AND MIDDLE EAR CAVITIES ARECLEAR. 2. MINIMAL BOWING OF THE NASAL SEPTUM. 3. MODERATE BRIDGETTE BULLOSA ON THE LEFT. Interpreting Physician: FLY MAURER M.D. Read on: Feb 10 2014 10:58A Transcribed by: binh On: Feb 10 2014 1:37P Approved Electronically by: FLY MAURER M.D. on: Feb 10 2014 3:07P Ordering DR: JAZMIN MARS Attending DR: JAZMIN MARS us Historical Provider MD FAJARDO CT PROCEDURES Final R esult documented in this encounter Visit Diagnoses Diagnosis Chronic sinusitis Unspecified sinusitis (chronic) documented in this encounter Care Teams Director Health Relationship Specialty Start Date End Date Clary Xavier MD [address] [place] [address] PCP - General 08/21/12 02/04/17 documented as of this encounter
--- OUTSIDE RECORDS SUMMARY | 2024-10-20 04:02 | XMS_ITS | Encounter Summary ---
Author Organization [facility] Healthcare Address [address] [place] [address] Care Team Providers Care Needle Setter Name Role Phone Unavailable Primary Care Provider Unavailabl e Encounter Details Date Type Department Care Team (Late st Contact Info) Description 09/14/2011 1:45 PM GRINDER SET UP OPERATOR SURFACE - 09/17/2011 9:50 AM GRINDER SET UP OPERATOR SURFACE Hospital Encounter [facility] KIERACONConnor Dumont MD [address] [place] [address] [address] Other postoperative infection; Removal of organ causing abnormal patient reaction, or later complication; Essential hypertension; Anemia Social History Tobacco Use Types Packs/Day Years Used Date Smoking Tobacco: Never Assessed Comments Unknown Sex and Gender Information Value Date Recorded Sex Assigned at Not on file Legal Sex Female 2:14 AM GRINDER SET UP OPERATOR SURFACE Gender Identity Not on file Sexual Orientation Not on file documented as of this encounter Plan of Treatment Not on file documented as of this encounter Visit Diagnoses Diagnosis Other postoperative infection Removal of organ causing abnormal patient reaction, or later complication Essential hypertension Unspecified essential hypertension Anemia Unspecified anemia documented in this encounter
--- OUTSIDE RECORDS SUMMARY | 2024-10-20 04:02 | XMS_ITS | Encounter Summary ---
Author Organization [facility] Healthcare Address [address] [place] [address] Care Team Providers Care Skein Bander Name Role Phone Unavailable Primary Care Provider Unavailabl e Encounter Details Date Type Department Care Team (Latest Contact Info) Description 01/19/2011 7:24 AM CDT - 01/19/2011 8:10 AM CDT Hospital Encounter [facility] Guido Turner MD [facility] [place] [address] Infective otitis externa; Essential hypertension Social History Tobacco Use Types Packs/Day Years Used Date Smoking Tobacco: Never Assessed Comments Unknown Sex and Gender Information Value Date Recorded Sex Assigned at Not on file Legal Sex Female 2:14 AM LIBRARIAN SPECIAL LIBRARY Gender Identity Not on file Sexual Orientation Not on file documented as of this encounter Plan of Treatment Not on file documented as of this encounter Visit Diagnoses Diagnosis Infective otitis externa Essential hypertension Unspecified essential hypertension documented in this encounter
--- OUTSIDE RECORDS SUMMARY | 2024-10-20 04:02 | XMS_ITS | Encounter Summary ---
Author Organization [facility] Healthcare Address [address] [place] [address] Care Team Providers Care Contour Band Saw Operator Vertical Name Role Phone Clary Xavier MD Primary Care Provider [phone] Encounter Details Date Type Department Care Team (Late st Contact Info) Description 07/16/2012 3:27 PM CDT - 07/16/2012 11:59 PM CDT Hospital Encounter [facility]IN[facility] Tereza Magana Lumbosacral spondylosis without myelopathy Social History Tobacco Use Types Packs/Day Years Used Date Smoking Tobacco: Never Assessed Comments Unknown Sex and Gender Information Value Date Recorded Sex Assigned at Not on file 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
--- OUTSIDE RECORDS SUMMARY | 2024-10-20 04:02 | XMS_ITS | Encounter Summary ---
Author Organization [facility] Healthcare Address [address] [place] [address] Care Team Providers Care Boardinghouse Keeper Name Role Phone Clary Xavier MD Primary Care Provider [phone] Encounter Details Date Type Department Care Team (Late st Contact Info) Description 08/23/2014 1:09 PM CHILD PSYCHOMETRIST - 08/23/2014 11:59 PM CHILD PSYCHOMETRIST Hospital Encounter [facility] Onur Gomez MD [address] [place] [id number] Abdominal pain, right upper quadrant; Nausea with vomiting Social History Tobacco Use Types Packs/Day Years Used Date Smoking Tobacco: Never Alcohol Use Standard Drinks/Week Comments No 0 (1 standard drink = 0.6 oz pur e alcohol) Comments Unknown Sex and Gender Information Value Date Recorded Sex Assigned at Not on file Legal Sex Female 2:14 AM CHILD PSYCHOMETRIST Gender Identity Not on file Sexual Orientation [...] Priority Date/Time Associated Diagnosis Comments NM HEPATOBILIARY IMAGING W PHARMACEUTICAL INTERVENTION Routine 08/23/2014 4:25 PM CHILD PSYCHOMETRIST documented in this encounter Results * NM Hepatobiliary Scan W Rx (08/23/2014 4:25 PM CHILD PSYCHOMETRIST) Anatomical Region Laterality Modality Body N/A Nuclear Medicine 08/23/2014 4:25 PM CHILD PSYCHOMETRIST Narrative 08/23/2014 9:23 PM CHILD PSYCHOMETRIST [place] [id number] ??Acc#: ??[id number] DATE OF EXAM: ??Aug 23 2014 CLINICAL HISTORY: Right upper quadrant abdominal pain, nausea and emesis for two months. RESULT: 5.1 mCi Tc 99m Choletec; 8 ounces Ensure Complete. The distribution of radiopharmaceutical in the liver is normal. ??There is prompt appearance of activity in the gallbladder confirming patency of the cystic duct. ??There was mild delay in appearance of activity in the bowel not seen until approximately 60 minutes into the study. Following the administration of Ensure the gallbladder ejection fraction is normal calculated at 92%. IMPRESSION: 1. PROMPT APPEARANCE OF ACTIVITY IN THE GALLBLADDER CONFIRMING PATENCY OF THE CYSTIC DUCT WITH MILD DELAY IN APPEARANCE OF ACTIVITY IN THE SMALL BOWEL NOT SEEN UNTIL APPROXIMATELY 1 HOUR INTO THE STUDY. 2. NORMAL GALLBLADDER EJECTION FRACTION CALCULATED AT 92% WITH VALUES OF 35% OR GREATER CONSIDERED NORMAL. Interpreting Physician: ??FLY MAURER M.D. ??Read on: ??Aug 23 2014 ??4:41P Transcribed by: ??elliot ??On: Aug 23 2014 ??5:46P Approved Electronically by: ??FLY MAURER M.D. ??on: ??Aug 23 2014 ??9:23P Ordering DR: DR ONUR HERNANDEZ Attending DR: DR ONUR HERNANDEZ Procedure Note Provider, Adolfo, - 02/05/2017 [place] [id number] Acc#: [id number] DATE OF EXAM: Aug 23 2014 CLINICAL HISTORY: Right upper quadrant abdominal pain, nausea and emesis for two months. RESULT: 5.1 mCi Tc 99m Choletec; 8 ounces Ensure Complete. The distribution ofradiopharmaceutical in the liver is normal. There is prompt appearance ofactivity in the gallbladder confirming patency of the cystic duct. Therewas mild delay in appearance of activity in the bowel not seen untilapproximately 60 minutes into the study. Following the administration ofEnsure the gallbladder ejection fraction is normal calculated at 92%. IMPRESSION: 1. PROMPT APPEARANCE OF ACTIVITY IN THE GALLBLADDER CONFIRMING PATENCY OFTHE CYSTIC DUCT WITH MILD DELAY IN APPEARANCE OF ACTIVITY IN THE SMALLBOWEL NOT SEEN UNTIL APPROXIMATELY 1 HOUR INTO THE STUDY. 2. NORMAL GALLBLADDER EJECTION FRACTION CALCULATED AT 92% WITH VALUES OF35% OR GREATER CONSIDERED NORMAL. Interpreting Physician: FLY MAURER M.D. Read on: Aug 23 2014 4:41P Transcribed by: elliot On: Aug 23 2014 5:46P Approved Electronically by: FLY MAURER M.D. on: Aug 23 2014 9:23P Ordering DR: DR ONUR HERNANDEZ Attending DR: DR ONUR HERNANDEZ Historical Provider MD TANA PALOMO PROCEDURES Final R esult documented in this encounter Visit Diagnoses Diagnosis Abdominal pain, right upper quadrant Nausea with vomiting documented in this encounter Care Teams Boardinghouse Keeper Relationship Specialty Start Date End Date Clary Xavier MD [address] [place] [address] PCP - General 08/21/12 02/04/17 documented as of this encounter
--- OUTSIDE RECORDS SUMMARY | 2024-10-20 04:02 | XMS_ITS | Encounter Summary ---
Author Organization [facility] Healthcare Address [address] [place] [address] Care Team Providers Care Mortgage Loan Interviewer Name Role Phone Clary Xavier MD Primary Care Provider Encounter Details Date Type Department Care Team (Late st Contact Info) Description 04/18/2013 11:14 AM CDT - 04/18/2013 12:08 PM T Hospital Encounter [facility] Kush Faustin MD [address] [facility] [facility] [address] [place] [address] Pain in soft tissues of limb; Drug dependence (HCC); Essential hypertension Social History Tobacco Use Types Packs/Day Years Used Date Smoking Tobacco: Never Assessed Comments Unknown Sex and Gender Information Value Date Recorded Sex Assigned at Not on file Legal Sex Female 2:14 AM CASE 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
--- OUTSIDE RECORDS SUMMARY | 2024-10-20 04:02 | XMS_ITS | Encounter Summary ---
Author Organization [facility] Healthcare Address [address] [place] [address] Care Team Providers Care Gearcase Assembler Name Role Phone Unavailable Primary Care Provider Unavailabl e Encounter Details Date Type Department Care Team (Late st Contact Info) Description 06/05/2011 5:29 PM CDT - 06/05/2011 7:36 PM CDT Hospital Encounter [facility] CLINCON[facility] Kenn Torres MD [address] [address] Contusion of foot; Other accident caused by striking against or being struck accidentally by objects or persons with or without subsequent fall Social History Tobacco Use Types Packs/Day Years Used Date Smoking Tobacco: Never Assessed Comments Unknown Sex and Gender Information Value Date Recorded Sex Assigned at Not on file 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
--- OUTSIDE RECORDS SUMMARY | 2024-10-20 04:02 | XMS_ITS | Encounter Summary ---
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
--- OUTSIDE RECORDS SUMMARY | 2024-10-20 04:02 | XMS_ITS | Encounter Summary ---
Author Organization [facility] Healthcare Address [address] [place] [address] Care Team Providers Care Reconciliation Analyst Name Role Phone Unavailable Primary Care Provider Unavailabl e Encounter Details Date Type Department Care Team (Late st Contact Info) Description 07/12/2011 7:03 AM CDT - 07/12/2011 12:35 PM CDT Hospital Encounter [facility] CLINCONV Jyoti Perales MD [address] [facility] [address] [place] [address] Excessive or frequent menstruation; Encounter for sterilization; Essential hypertension; Anxiety state Social History Tobacco Use Types Packs/Day Years Used Date Smoking Tobacco: Never Assessed Comments Unknown Sex and Gender Information Value Date Recorded Sex Assigned at Not on file Legal Sex Female 2:14 AM 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
--- OUTSIDE RECORDS SUMMARY | 2024-10-20 04:03 | XMS_ITS | Encounter Summary ---
Author Organization [facility] Healthcare Address [address] [place] [address] Care Team Providers Care Customer Success Manager Name Role Phone Unavailable Primary Care Provider Unavailabl e Encounter Details Date Type Department Care Team (Late st Contact Info) Description 08/02/2007 1:12 PM CDT - 08/02/2007 5:45 PM CDT Hospital Encounter [facility] Kush Faustin MD [address] [facility] [address] [place] [address] Social History Tobacco Use Types Packs/Day Years Used Date Smoking Tobacco: Never Assessed Comments Unknown Sex and Gender Information Value Date Recorded Sex Assigned at Not on file Legal Sex Female 2:14 AM 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
--- OUTSIDE RECORDS SUMMARY | 2024-10-20 04:03 | XMS_ITS | Encounter Summary ---
Author Organization [facility] Healthcare Address [address] [place] [address] Care Team Providers Care Bulk Fluids Handler Name Role Phone Unavailable Primary Care Provider Unavailabl e Encounter Details Date Type Department Care Team (Late st Contact Info) Description 04/27/2010 6:38 PM CDT - 04/27/2010 8:00 PM CDT Hospital Encounter [facility] CLINCONV Kenn Torres MD [address] [facility] [address] [place] [address] Jyoti Perales MD [address] [place] [address] Contusion of knee; Fall resulting in striking against other object; Unspecified place of occurrence; state, incidental Social History Tobacco Use Types Packs/Day Years Used Date Smoking Tobacco: Never Assessed Comments Unknown Sex and Gender Information Value Date Recorded Sex Assigned at Not on file 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
--- OUTSIDE RECORDS SUMMARY | 2024-10-20 04:03 | XMS_ITS | Encounter Summary ---
Author Organization [facility] Healthcare Address [address] [place] [address] Care Team Providers Care Women'S Activities Adviser Name Role Phone Unavailable Primary Care Provider Unavailabl e Encounter Details Date Type Department Care Team (Late st Contact Info) Description 11/20/2008 5:43 PM HEALTH SCIENCE SPECIALIST - 11/20/2008 7:35 PM HEALTH SCIENCE SPECIALIST Hospital Encounter [facility] CLINCONV Kenn Torres MD [address] [facility] [address] [place] [address] [place] [address] [facility] [address] [place] [address] Otitis media Social History Tobacco Use Types Packs/Day Years Used Date Smoking Tobacco: Never Assessed Comments Unknown Sex and Gender Information Value Date Recorded Sex Assigned at Not on file Legal Sex Female 2:14 AM HEALTH SCIENCE SPECIALIST Gender Identity Not on file Sexual Orientation Not on file documented as of this encounter Plan of Treatment Not on file documented as of this encounter Visit Diagnoses Diagnosis Otitis media Unspecified otitis media documented in this encounter
--- OUTSIDE RECORDS SUMMARY | 2024-10-20 04:03 | XMS_ITS | Encounter Summary ---
Author Organization [facility] Healthcare Facility Care Team Providers Care Sap Ppm Consultant Name Role Phone Unavailable Primary Care Provider Unavailabl e Encounter Details Date Type Department Care Team (Late st Contact Info) Description 12/09/2006 10:00 AM FREIGHT AIR BRAKE FITTER - 12/09/2006 11:59 PM FREIGHT AIR BRAKE FITTER Hospital Encounter [facility] Jyoti Oconnor MD [address] [facility] [address] [place] [address] Social History Tobacco Use Types Packs/Day Years Used Date Smoking Tobacco: Never Assessed Comments Unknown Sex and Gender Information Value Date Recorded Sex Assigned at Not on file Legal Sex Female 2:14 AM FREIGHT AIR BRAKE FITTER Gender Identity Not on file Sexual Orientation Not on file documented as of this encounter Plan of Treatment Not on file documented as of this encounter Visit Diagnoses Not on filedocumented in this encounter
--- OUTSIDE RECORDS SUMMARY | 2024-10-20 04:03 | XMS_ITS | Encounter Summary ---
Author Organization [facility] Healthcare Address [address] [place] [address] Care Team Providers Care Over Short And Damage Clerk Name Role Phone Unavailable Primary Care Provider Unavailabl e Encounter Details Date Type Department Care Team (Late st Contact Info) Description 01/16/2010 12:22 PM CDT - 01/16/2010 1:14 PM CDT Hospital Encounter [facility] CLINCONV Kenn Torres MD [address] [address] Open wound of hip and thigh; Accident caused by other specified cutting and piercing instruments or objects; Place of occurrence, home; External cause status; Need for prophylactic immunotherapy Social History Tobacco Use Types Packs/Day Years Used Date Smoking Tobacco: Never Assessed Comments Unknown Sex and Gender Information Value Date Recorded Sex Assigned at Not on file 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
--- OUTSIDE RECORDS SUMMARY | 2024-10-20 04:03 | XMS_ITS | Encounter Summary ---
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
--- OUTSIDE RECORDS SUMMARY | 2024-10-20 04:03 | XMS_ITS | Encounter Summary ---
Author Organization [facility] Healthcare Address [address] [place] [address] Care Team Providers Care Retail Business Manager Name Role Phone Unavailable Primary Care Provider Unavailabl e Encounter Details Date Type Department Care Team (Late st Contact Info) Description 09/16/2008 2:59 PM HOME VISITOR - 09/16/2008 11:59 PM HOME VISITOR Hospital Encounter [facility] CLINCONV Social History Tobacco Use Types Packs/Day Years Used Date Smoking Tobacco: Never Assessed Comments Unknown Sex and Gender Information Value Date Recorded Sex Assigned at Not on file Legal Sex Female 2:14 AM HOME VISITOR Gender Identity Not on file Sexual Orientation Not on file documented as of this encounter Plan of Treatment Not on file documented as of this encounter Visit Diagnoses Not on filedocumented in this encounter
--- OUTSIDE RECORDS SUMMARY | 2024-10-20 04:03 | XMS_ITS | Encounter Summary ---
Author Organization [facility] Healthcare Address [address] [place] [address] Care Team Providers Care Hot Bread Baker Name Role Phone Unavailable Primary Care Provider Unavailabl e Encounter Details Date Type Department Care Team (Latest Contact Info) Description 05/24/2009 9:30 PM CDT - 05/25/2009 2:11 AM CDT Hospital Encounter [facility] [place]ás[place] [address] [facility] [address] [place] [address] Contusion of knee; Striking against or struck accidentally by furniture without subsequent fall; Place of occurrence, home; Essential hypertension; Other depressive disorder Social History Tobacco Use Types Packs/Day Years Used Date Smoking Tobacco: Never Assessed Comments Unknown Sex and Gender Information Value Date Recorded Sex Assigned at Not on file Legal Sex Female 2:14 AM TRANSPORTATION AID Gender Identity Not on file Sexual Orientation Not on file documented as of this encounter Plan of Treatment Not on file documented as of this encounter Visit Diagnoses Diagnosis Contusion of knee Striking against or struck accidentally by furniture without subsequent fall Place of occurrence, home Essential hypertension Unspecified essential hypertension Other depressive disorder documented in this encounter
--- OUTSIDE RECORDS SUMMARY | 2024-10-20 04:03 | XMS_ITS | Encounter Summary ---
Author Organization [facility] Facility Care Team Providers Care Manager Integration Name Role Phone Unavailable Primary Care Provider Unavailabl e Encounter Details Date Type Department Care Team (Latest Contact Info) Description 05/24/2010 - 05/24/2010 11:59 PM CDT Hospital Encounter [facility] Danisha Shah MD [address] [facility] [address] [place] [id number] Other specified screening; Elderly multigravida with antepartum condition or complication Social History Tobacco Use Types Packs/Day Years Used Date Smoking Tobacco: Never Assessed Comments Unknown Sex and Gender Information Value Date Recorded Sex Assigned at Not on file 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
--- OUTSIDE RECORDS SUMMARY | 2024-10-20 04:03 | XMS_ITS | Encounter Summary ---
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
--- OUTSIDE RECORDS SUMMARY | 2024-10-20 04:21 | XMS_ITS | Patient Health Summary ---
Author Organization [facility] Address [address] [place] [address] Care Team Providers Care Gravel Wheeler Name Role Phone Niurka Olivarez THOM-HOUSING AND RESIDENCE LIFE DIRECTOR Primary Care Provider +1- [phone] Note from [facility],non-owned Affiliates and Associated Physician Practices is amultiple site organization consisting of ambulatory clinics and hospital sitesin [place], [place], [place]. This disclosure is being madepursuant to the Care Everywhere program and may not contain all information available regarding this patient. Last updated 18.[facility] Conformity Allergies * Penicillins(Rash) -Medium Criticality Medications * [...] PM Rossy Emmanuel PA[facility] Care Teams Gravel Wheeler Relationship Specialty Start Date End Date Niurka Olivarez APRN-MIGUEL ANGEL [address] [place] [address] PCP - General 06/07/19
--- OUTSIDE RECORDS SUMMARY | 2024-10-20 04:21 | XMS_ITS | Encounter Summary ---
Author Organization [facility] Health Address [address] [facility] [place] [address] Care Team Providers Care Structural Steel Erector Name Role Phone Niurka Olivarez THOM-COMPLIANCE ASSISTANT Primary Care Provider +1- [phone] Encounter Details Date Type Department Care Team (Latest Contact Info) Description 06/07/2019 1:03 PM CDT - 06/07/2019 11:59 PM CDT Hospital Encounter [facility] [address] [place] [address] Rossy Emmanuel PA-C [address] [place] [phone] Discharge Disposition: Home or Self Care Social [...] chronicity documented in this encounter Care Teams Structural Steel Erector Relationship Specialty Start Date End Date Juanis, THOM Bah-MIGUEL ANGEL [address] [place] [address] PCP - General 06/07/19 documented as of this encounter
--- OUTSIDE RECORDS SUMMARY | 2024-10-20 04:21 | XMS_ITS | Encounter Summary ---
Author Organization [facility] Address [address] [place] [address]. [place] [address] [place] [address] Care Team Providers Care Emergency Communications Operator Name Role Phone Kristi Cazares MD Primary Care Provider Unavailable Encounter Details Date Type Department Care Team (Late st Contact Info) Description 04/20/2014 Abstract [facility] Interventional [facility] [place] [address] [phone] Elis Hood MD Three [facility] [address] [place], [place] [id number] Social History Tobacco Use Types Packs/Day Years [...] myelopathy documented in this encounter Care Teams Emergency Communications Operator Relationship Specialty Start Date End Date Kristi Cazares MD PCP - General 04/20/14 documented as of this encounter
--- OUTSIDE RECORDS SUMMARY | 2024-10-20 04:21 | XMS_ITS | Encounter Summary ---
Author Organization [facility] Address [address] [place] [address]. [place] [address] [place] [address] Care Team Providers Care Court Collections Officer Name Role Phone Md Generic Conversion Primary Care Provider Unavailable Md Generic Conversion Primary Care Provider Unavailable Encounter Details Date Type Department Care Team (Late st Contact Info) Description 03/30/2014 Abstract [facility] Interventional Pain [place] [address] [phone] Elis Hood MD Three [facility] [address] [place], [place] [phone] Social History Tobacco Use Types Packs/Day Years [...] sites documented in this encounter Care Teams Court Collections Officer Relationship Specialty Start Date End Date Kristi Cazares MD PCP - General 04/20/14 Kristi Cazares MD PCP - General 03/30/14 4 documented as of this encounter
--- OUTSIDE RECORDS SUMMARY | 2024-10-20 04:21 | XMS_ITS | Encounter Summary ---
Author Organization [facility] Address [address] [place] [address]. [place] [address] [place] [address] Care Team Providers Care Shear Operator Name Role Phone Md Generic Elvis WILSON [...] (Late st Contact Info) Description 01/12/2013 Abstract [facility] Interventional Pain [place] [address] [phone] Elis Hood MD Three [facility] [address] [place], [place] [phone] Social History Tobacco Use Types Packs/Day Years [...] disc documented in this encounter Care Teams Shear Operator Relationship Specialty Start Date End Date [...]
--- OUTSIDE RECORDS SUMMARY | 2024-10-20 04:21 | XMS_ITS | Encounter Summary ---
Author Organization [facility] Address [address] [place] [address]. [place] [address] [place] [address] Care Team Providers Care Prefabricator Name Role Phone Md Generic Conversion Primary [...] (Late st Contact Info) Description 08/12/2012 Abstract [facility] [place] [address] [id number] Elis Hood MD Three [facility] [address] [place], [place] [address] Social History Tobacco Use Types Packs/Day Years [...] disc documented in this encounter Care Teams Prefabricator Relationship Specialty Start Date End Date Kristi [...]
--- OUTSIDE RECORDS SUMMARY | 2024-10-20 04:21 | XMS_ITS | Encounter Summary ---
Author Organization [facility] Address [address] [place] [address]. [place] [address] [place] [address] Care Team Providers Care Lead Caregiver Name Role Phone Md Generic Conversion Primary Care Provider Unavailable Kristi Wilson MD Primary Care Provider Unavailable Md Generic Elvis WILSON Primary Care Provider Unavailable Encounter Details Date Type Department Care Team (Late st Contact Info) Description 08/12/2013 Abstract [facility] Interventional [place] [address] [id number] Elis Hood MD Three [facility] [address] [place], [place] [phone] Social History Tobacco Use Types Packs/Day Years [...] disc documented in this encounter Care Teams Lead Caregiver Relationship Specialty Start Date End Date Kristi Wilson MD PCP - General 04/20/14 Kristi Wilson MD PCP - General 03/30/14 4 Kristi Wilson MD PCP - General 07/28/13 documented as of this encounter
--- OUTSIDE RECORDS SUMMARY | 2024-10-20 04:21 | XMS_ITS | Encounter Summary ---
Author Organization [facility] Health Address [address] [facility] [place] [address] Care Team Providers Care Programming Internship Name Role Phone Niurka Olivarez THOM-TOWN MANAGER Primary Care Provider +1- [phone] Reason for Visit * Reason Onset Date Comments Imaging 07/01/2019 Encounter Details Date Type Department Care Team (Late st Contact Info) Description 07/01/2019 Telephone [facility] [address] [facility], [place] [phone] Rossy Emmanuel PA-C [address] [facility] [address] [place] [address] Imaging Social History Tobacco Use [...] on filedocumented in this encounter Care Teams Programming Internship Relationship Specialty Start Date End Date Olivarez, THOM Bah-MIGUEL ANGEL [address] [place] [address] PCP - General 06/07/19 documented as of this encounter
--- OUTSIDE RECORDS SUMMARY | 2024-10-20 04:21 | XMS_ITS | Encounter Summary ---
Author Organization [facility] Address [address] [place] [address]. [place] [address] [place] [address] Care Team Providers Care Package Line Operator Name Role Phone Md Generic Elvis WILSON Primary Care Provider Unavailable Kristi Wilson MD Primary Care Provider Unavailable Kristi Wilson MD Primary Care Provider Unavailable Encounter Details Date Type Department Care Team (Late st Contact Info) Description 09/13/2013 Abstract [facility] Interventional [facility] [place] [address] [phone] Elis Hood MD Three [facility] [address] [place], [place] [phone] Social History Tobacco Use Types Packs/Day Years [...] on filedocumented in this encounter Care Teams Package Line Operator Relationship Specialty Start Date End Date Kristi Wilson MD PCP - General 04/20/14 Kristi Wilson MD PCP - General 03/30/14 4 Kristi Wilson MD PCP - General 07/28/13 documented as of this encounter
--- OUTSIDE RECORDS SUMMARY | 2024-10-20 04:21 | XMS_ITS | Referral Summary ---
Author Organization [facility] Address [address] [place] [address] Care Team Providers Care Concrete Puddler Name Role Phone Niurka Olivarez THOM-JOURNEYMAN PAINTER Primary Care Provider +1- [phone] Source Comments [facility],non-owned Affiliates and Associated Physician Practices is amultiple site organization consisting of ambulatory clinics and hospital sitesin [place], [place], [place] and [place]. This disclosure is being madepursuant to the Care Everywhere program and may not contain all information available regarding this patient. Last updated 18.[facility] Allergies Active Allergy Reactions Criticality Noted Date [...] of Treatment Not on file Care Teams Concrete Puddler Relationship Specialty Start Date End Date Niurka Olivarez APRN-JOURNEYMAN PAINTER [address] [place] [address] PCP - General 06/07/19
--- OUTSIDE RECORDS SUMMARY | 2024-10-20 04:21 | XMS_ITS | Encounter Summary ---
Author Organization [facility] Address [address] [place] [address]. [place] [address] [place] [address] Care Team Providers Care Boat Oar Maker Name Role Phone Md Generic Conversion Primary Care Provider Unavailable Md Generic Conversion Primary Care Provider Unavailable Md Generic Conversion Primary Care Provider Unavailable Md Generic Conversion Primary Care Provider Unavailable Md Generic Conversion Primary Care Provider Unavailable Md Generic Conversion Primary Care Provider Unavailable Encounter Details Date Type Department Care Team (Late st Contact Info) Description 03/16/[address] [facility] Interventional [place] [address] [phone] Elis Hood MD Three [facility] [address] [place] [address] Social History Tobacco Use Types Packs/Day Years [...] disc documented in this encounter Care Teams Boat Oar Maker Relationship Specialty Start Date End Date Md Generic ConversionMD PCP - General 04/20/14 Md Generic ConversionMD PCP - General 03/30/14 4 Md Generic ConversionMD PCP - General 07/28/13 Md Generic ConversionMD PCP - General 07/07/1307/27 Md Generic ConversionMD PCP - General 03/30/13 Md Generic ConversionMD PCP - General 03/16/13 documented as of this encounter
--- OUTSIDE RECORDS SUMMARY | 2024-10-20 04:21 | XMS_ITS | Encounter Summary ---
Author Organization [facility] Health Address [address] [facility] [place] [address] Care Team Providers Care Beauty Culture Teacher Name Role Phone Niurka Olivarez THOM-WOOL AND PELT GRADER Primary Care Provider +1- [phone] Encounter Details Date Type Department Care Team (Latest Contact Info) Description 05/21/2024 12:48 PM CDT - 05/21/2024 1:10 PM CDT Hospital Encounter [facility] DIAGNOSTIC RAD CSM [address]L [address] [facility] [place] [address] Rossy Emmanuel PA-C [address] [facility] [address] [place] [address] Discharge Disposition: Home or Self [...] arm documented in this encounter Care Teams Beauty Culture Teacher Relationship Specialty Start Date End Date Niurka Olivarez APRN-MIGUEL ANGEL [address] [place] [address] PCP - General 06/07/19 documented as of this encounter
--- OUTSIDE RECORDS SUMMARY | 2024-10-20 04:21 | XMS_ITS | Encounter Summary ---
Author Organization [facility] Health Address [address] [facility] [place] [address] Care Team Providers Care Vector Control Assistant Name Role Phone Jyoti Perales MD Primary Care Provider [phone] Encounter Details Date Type Department Care Team (Late st Contact Info) Description 06/03/2019 Orders Only [facility] [address] [place] [address] Rossy Emmanuel PA-C [address] [place] [phone] Left knee pain, unspecified chronicity Social History [...] chronicity documented in this encounter Care Teams Vector Control Assistant Relationship Specialty Start Date End Date Jyoti Perales MD PCP - General 10/09/18 06/06/19 documented as of this encounter
--- OUTSIDE RECORDS SUMMARY | 2024-10-20 04:21 | XMS_ITS | Encounter Summary ---
Author Organization [facility] Address [address] [place] [address]. [place] [address] [place] [address] Care Team Providers Care Hat Liner Name Role Phone Kristi Cazares MD Primary Care Provider Unavailable Kristi Cazares MD Primary Care Provider Unavailable Kristi Cazares MD Primary Care Provider Unavailable Encounter Details Date Type Department Care Team (Late st Contact Info) Description 09/01/2013 Abstract [facility] Interventional [place] [address] [phone] Elis Hood MD Three [facility] [address] [place], [place] [phone] Social History Tobacco Use Types Packs/Day Years [...] unspecified documented in this encounter Care Teams Hat Liner Relationship Specialty Start Date End Date Kristi Cazares MD PCP - General 04/20/14 Kristi Cazares MD PCP - General 03/30/14 4 Kristi Cazares MD PCP - General 07/28/13 documented as of this encounter
--- OUTSIDE RECORDS SUMMARY | 2024-10-20 04:21 | XMS_ITS | Encounter Summary ---
Author Organization [facility] Health Address [address] [facility] [place] [address] Care Team Providers Care Marine Erector Name Role Phone Niurka Olivarez Primary Care Provider [phone]- [phone] Encounter Details Date Type Department Care Team [...] on filedocumented in this encounter Care Teams Marine Erector Relationship Specialty Start Date End Date Niurka Olivarez APRN-CNP [address] [place] [address] PCP - General 06/07/19 documented as of this encounter
--- OUTSIDE RECORDS SUMMARY | 2024-10-20 04:21 | XMS_ITS | Encounter Summary ---
Author Organization [facility] Health Address [address] [place] [address] Care Team Providers Care Marine Biologist Name Role Phone Niurka Olivarez LEARNING SERVICES COORDINATOR-AUTOMATION QA ANALYST Primary Care Provider [phone]- [phone] Reason for Visit * Reason Onset Date Comments Pain Knee left Pain Knee 07/02/2019 Encounter Details Date Type Department Care Team (Latest Contact Info) Description 07/02/2019 9:30 AM CDT Office Visit [facility] Orthopedics [address] [facility], [place] [address] Rossy Emmanuel PA-C [address] [place] [address] Osteoarthritis of left patellofemoral joint (Primary Dx); [...] from the original note were not included. [email or web address] Adult and Pediatric Orthopaedic Surgery Sports Medicine [...] and given information regarding their diagnosis today. [facility] Orthopaedic office contact information: Please contact our , option #1 to make an appointment if your symptoms are not improving, or if something about your condition significantly changes. Our Locations: [facility] [address] [place] [address], [address], [place] [address] Please contact the [place] at , if you have any further questions or concerns. [facility] [address] [place] [address] Please contact Johan Patterson RN at , if you have any further questions or concerns. [facility] , option 2 [place] location: [address] [place], [place] [address] [facility] location: [address] [place] [address] [facility] location: [address] [place] [address] Sincerely, Rossy Emmanuel MPA, PA-C [email or web address] documented in this encounter Progress Notes * Rossy Emmanuel PA-C - 07/02/2019 12:[address] Niurka Olivarez, LEARNING SERVICES COORDINATOR-AUTOMATION QA ANALYST ; Melinda Olmedo is a 44 year [...] Knee documented in this encounter Care Teams Marine Biologist Relationship Specialty Start Date End Date Niurka Olivarez APRN-MIGUEL ANGEL [address] [place] [address] PCP - General 06/07/19 documented as of this encounter
--- OUTSIDE RECORDS SUMMARY | 2024-10-20 04:21 | XMS_ITS | Encounter Summary ---
Author Organization [facility] Health Address [address] [facility] [place] [address] Care Team Providers Care Strategic Account Director Name Role Phone Niurka Olivarez MISSILE PAD MECHANIC-CIGARETTE ROLLER Primary Care Provider [phone]- [phone] Reason for Visit * Reason Comments Pain Knee Left Encounter Details Date Type Department Care Team (Late st Contact Info) Description 06/07/2019 1:45 PM CDT Office Visit [facility] [address] [place] [address] Rossy Emmanuel PADaveC [address] [place] [address] Acute internal derangement of left knee (Primary [...] from the original note were not included. [email or web address] Adult and Pediatric Orthopaedic Surgery Sports [...] and given information regarding their diagnosis today. [facility] Orthopaedic office contact information: Please contact our , option #1 to make an appointment if your symptoms are not improving, or if something about your condition significantly changes. Our Locations: [facility] [address] [place] [address], [address], [place] [address] Please contact the MA at , if you have any further questions or concerns. [facility] [address] [place] [address] Please contact Adarsh Benson RN at , if you have any further questions or concerns. [facility] , option 2 [place] location: [address] [place], [address], [place] [address] [facility] location: [address], [place] [address] [facility] location: [address] [place] [address] Sincerely, Rossy Emmanuel MPA, PA-C [email or web address] documented in this encounter Progress Notes * Rossy Emmanuel PA-C - 06/07/2019 3:[address] Niurka Olivarez, THOM-CIGARETTE ROLLER ; Today, 06/07/19, we had the pleasure of seeing Melinda Olmedo at [facility] Orthopaedic Sports Medicine and Shoulder Surgery Clinic [...] Primary documented in this encounter Care Teams Strategic Account Director Relationship Specialty Start Date End Date Niurka Olivarez APRN-MIGUEL ANGEL [address] [place] [address] PCP - General 06/07/19 documented as of this encounter
--- OUTSIDE RECORDS SUMMARY | 2024-10-20 04:21 | XMS_ITS | Encounter Summary ---
Author Organization [facility] Address [address] [place] [address]. [place] [address] [place] [address] Care Team Providers Care Lead Cook Name Role Phone Md Generic Conversion Primary Care Provider Unavailable Md Generic Elvis WILSON Primary Care Provider Unavailable Md Generic Elvis WILSON Primary Care Provider Unavailable Md Generic Elvis WILSON Primary Care Provider Unavailable Md Generic Elvis WILSON Primary Care Provider Unavailable Encounter Details Date Type Department Care Team (Late st Contact Info) Description 03/30/2013 Abstract [facility] Interventional [place] [address] [phone] Elis Hood MD Three [facility] [address] [place] [address] Social History Tobacco Use Types Packs/Day Years [...] documented in this encounter Care Teams Lead Cook Relationship Specialty Start Date End Date Md Generic ConversionMD PCP - General 04/20/14 Md Generic ConversionMD PCP - General 03/30/14 4 Kristi Wilson MD PCP - General 07/28/13 Md Generic ConversionMD PCP - General 07/07/1307/27 Md Generic ConversionMD PCP - General 03/30/13 documented as of this encounter
--- OUTSIDE RECORDS SUMMARY | 2024-10-20 04:21 | XMS_ITS | Encounter Summary ---
Author Organization [facility] Health Address [address] [facility] [address] Care Team Providers Care Ship Manager Name Role Phone Niurka Olivarez THOM-COAL CARRIER Primary Care Provider +1- [phone] Encounter Details Date Type Department Care Team (Latest Contact Info) Description 05/21/2024 1:11 PM CDT - 05/21/2024 11:59 PM CDT Hospital Encounter [facility] DIAGNOSTIC RAD CSM [address]L [address] [facility] [place] [address] Rossy Emmanuel PA-C [address] [facility] [address]L [address] [place] [address] Discharge Disposition: Home or Self [...] shoulder documented in this encounter Care Teams Ship Manager Relationship Specialty Start Date End Date Olivarez, THOM Bah-MIGUEL ANGEL [address] [place] [phone] PCP - General 06/07/19 documented as of this encounter
--- OUTSIDE RECORDS SUMMARY | 2024-10-20 04:21 | XMS_ITS | Clinical Summary ---
Author Organization [facility] Address [address] [place] [address]. [place], [place] [address] [place] [address] Care Team Providers Care Lot Porter Name Role Phone Unavailable Primary Care Provider [...]
--- OUTSIDE RECORDS SUMMARY | 2024-10-20 04:21 | XMS_ITS | Encounter Summary ---
Author Organization [facility] Address [address] [place] [address]. [place] [address] [place] [address] Care Team Providers Care Senior Design Engineering Specialist Name Role Phone Md Generic Elvis WILSON [...] (Late st Contact Info) Description 03/01/2013 Abstract [facility] Interventional [place] [address] [phone] Elis Hood MD Three [facility] [address] [place] [address] Social History Tobacco Use Types Packs/Day Years [...] disc documented in this encounter Care Teams Senior Design Engineering Specialist Relationship Specialty Start Date End Date Md [...]
--- OUTSIDE RECORDS SUMMARY | 2024-10-20 04:21 | XMS_ITS | Encounter Summary ---
Author Organization [facility] Health Address [address] [place] [address] Care Team Providers Care Software Engineer Intern Name Role Phone Niurka Olivarez APRN-BATCH HEAT TREAT OPERATOR Primary Care Provider +1- [phone] Reason for Referral * Radiology Services (Routine) - Closed Specialty Diagnoses / Procedures Referred By Magui t Referred To Contact MRI Diagnoses Acute internal derangement of left knee Procedures MRI KNEE LEFT WO CONTRAST Rossy Emmanuel PA-C [address] [facility] [address] [place] [address] Referral ID Status Reason Start Date Expiration Date Visits Re quested Visits Authorized [id number] Closed 06/21/2019 12/18/2019 1 1 Reason for Visit * Reason Comments Pain Knee LEFT Encounter Details Date Type Department Care Team (Late st Contact Info) Description 06/21/2019 9:00 AM CDT Office Visit [facility] [address] [place] [address] Rossy Emmanuel PA-C [address] [place] [address] Acute internal derangement of left knee (Primary [...] Emmanuel PA-C - 06/21/2019 9:14 AM CDT [email or web address] Adult and Pediatric Orthopaedic Surgery [...] and given information regarding their diagnosis today. [facility] Orthopaedic office contact information: Please contact our , option #1 to make an appointment if your symptoms are not improving, or if something about your condition significantly changes. Our Locations: [facility] [address] [facility], [address], [place] [address] Please contact the MA at , if you have any further questions or concerns. [facility] [address] [place] [address] Please contact Adarsh Benson RN at , if you have any further questions or concerns. [facility] , option 2 [place] location: [address] [facility], [place] [address] [facility] location: [address] Clinic location: [address] [place] [address] Sincerely, Rossy Emmanuel MPA, PA-C [email or web address] documented in this encounter Progress Notes * Rossy Emmanuel PA-C - 06/21/2019 9:[address] Niurka Olivarez, THERMOSTAT MACHINE TENDER-BATCH HEAT TREAT OPERATOR ; Today, 06/21/19, we had the pleasure of seeing Melinda Olmedo at [facility] Orthopaedic Sports Medicine and Shoulder Surgery [...] patellar ridge. Small Santos's cyst. Edited by Mgaali Ledesma on 07/01/2019 10:30 AM Reading Radiologist: Christian Feldman MD on 07/01/2019 at 11:10 AM Rossy Emmanuel PA-C MR ORDERABLES documented in this encounter Visit Diagnoses Diagnosis Acute internal derangement of left knee- Primary Acute internal derangement of left knee documented in this encounter Care Teams Software Engineer Intern Relationship Specialty Start Date End Date Niurka Olivarez APRN-MIGUEL ANGEL [address] [place] [address] PCP - General 06/07/19 documented as of this encounter
--- OUTSIDE RECORDS SUMMARY | 2024-10-20 04:21 | XMS_ITS | Encounter Summary ---
Author Organization [facility] Address [address] [place] [address]. [place] [address] [place] [address] Care Team Providers Care Prop And Scenery Maker Name Role Phone Md Generic Elvis WILSON Primary Care Provider Unavailable Kristi Wilson MD Primary Care Provider Unavailable Md Generic Elvis WILSON Primary Care Provider Unavailable Encounter Details Date Type Department Care Team (Late st Contact Info) Description 07/28/2013 Abstract [facility] Interventional [facility] [place] [address] [id number] Elis Hood MD Three [facility] [address] [place], [place] [id number] Social History Tobacco Use Types Packs/Day Years [...] myelopathy documented in this encounter Care Teams Prop And Scenery Maker Relationship Specialty Start Date End Date Kristi Wilson MD PCP - General 04/20/14 Kristi Wilson MD PCP - General 03/30/14 4 Kristi Wilson MD PCP - General 07/28/13 documented as of this encounter
--- OUTSIDE RECORDS SUMMARY | 2024-10-20 04:21 | XMS_ITS | Encounter Summary ---
Author Organization [facility] Address [address] [place] [address]. [place] [address] [place] [address] Care Team Providers Care Factory Hand Name Role Phone Kristi Cazares MD Primary Care Provider Unavailable Encounter Details Date Type Department Care Team (Late st Contact Info) Description 04/27/[address] [facility] Interventional [place] [address] [id number] Elis Hood MD Three [facility] [address] [place], [place] [id number] Social History Tobacco Use Types Packs/Day Years [...] on filedocumented in this encounter Care Teams Factory Hand Relationship Specialty Start Date End Date Kristi Cazares MD PCP - General 04/20/14 documented as of this encounter
--- OUTSIDE RECORDS SUMMARY | 2024-10-20 04:21 | XMS_ITS | Encounter Summary ---
Author Organization [facility] Health Address [address] [facility] [place] [address] Care Team Providers Care Senior Project Engineer Name Role Phone Niurka Olivarez Primary Care Provider +1- [phone] Encounter Details Date Type Department Care Team [...] on filedocumented in this encounter Care Teams Senior Project Engineer Relationship Specialty Start Date End Date Niurka Olivarez APRN-CNP [address] [place] [address] PCP - General 06/07/19 documented as of this encounter
--- OUTSIDE RECORDS SUMMARY | 2024-10-20 04:21 | XMS_ITS | Encounter Summary ---
Author Organization [facility] Address [address] [place] [address]. [place] [address] [place] [address] Care Team Providers Care Consultative Sales Associate Name Role Phone Md Generic Conversion Primary Care Provider Unavailable Md Generic Elvis WILSON Primary Care Provider Unavailable Md Generic Elvis WILSON Primary Care Provider Unavailable Md Generic Elvis WILSON Primary Care Provider Unavailable Encounter Details Date Type Department Care Team (Late st Contact Info) Description 07/07/2013 Abstract [facility] Interventional [place] [address] [id number] Elis Hood MD Three [facility] [address] [place] [address] Social History Tobacco Use Types Packs/Day Years [...] sites documented in this encounter Care Teams Consultative Sales Associate Relationship Specialty Start Date End Date Kristi Wilson MD PCP - General 04/20/14 Md Generic MD Elvis PCP - General 03/30/14 4 Kristi Wilson MD PCP - General 07/28/13 Kristi Wilson MD PCP - General 07/07/1307/27 documented as of this encounter
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
--- OUTSIDE RECORDS SUMMARY | 2024-10-20 04:21 | XMS_ITS | Encounter Summary ---
Author Organization [facility] Health Address [address] [facility] [place] [address] Care Team Providers Care Bit Tapper Name Role Phone Jyoti Perales MD Primary Care Provider [phone] Encounter Details Date Type Department Care Team (Late st Contact Info) Description 11/09/2018 Orders Only [facility] [address] [facility], [place] [address] Niurka Armendariz PA-C [address] [place] [address] Left knee pain, unspecified chronicity Social History [...] Primary documented in this encounter Care Teams Bit Tapper Relationship Specialty Start Date End Date Jyoti Perales MD PCP - General 10/09/18 06/06/19 documented as of this encounter
--- OUTSIDE RECORDS SUMMARY | 2024-10-20 04:21 | XMS_ITS | Clinical Summary ---
Author Organization [facility] Address [address] [place] [place] [address] Care Team Providers Care Schedule Hanger Name Role Phone Niurka Olivarez THOM-ELECTRIC MOTOR ANALYST Primary Care Provider [phone]- [phone] Source Comments [facility],non-owned Affiliates and Associated Physician Practices is amultiple site organization consisting of ambulatory clinics and hospital sitesin [place], [place], [place] and [place]. This disclosure is being madepursuant to the Care Everywhere program and may not contain all information available regarding this patient. Last updated 18.[facility] Allergies Active Allergy Reactions Criticality Noted Date [...] age to complete this topic Care Teams Schedule Hanger Relationship Specialty Start Date End Date Niurka Olivarez APRN-MIGUEL ANGEL [address] [place] [address] PCP - General 06/07/19
--- OUTSIDE RECORDS SUMMARY | 2024-10-20 04:21 | XMS_ITS | Encounter Summary ---
Author Organization [facility] Health Address [address] [facility] [place] [address] Care Team Providers Care Plant Taxonomist Name Role Phone Niurka Olivarez APRN-FUNDRAISING SALE REPRESENTATIVE Primary Care Provider [phone] Reason for Referral * Radiology Services (Routine) - Closed Specialty Diagnoses / Procedures Referred By Contac t Referred To Contact MRI Diagnoses Acute internal derangement of left knee Procedures MRI KNEE LEFT WO CONTRAST Rossy Emmanuel PA-C [address] [employer] [address] [address] Referral ID Status Reason Start Date Expiration Date Visits Re quested Visits Authorized [id number] Closed 06/21/2019 12/18/2019 1 1 Reason for Visit * Radiology Services (Routine) - Closed Specialty Diagnoses / Procedures Referred By Contac t Referred To Contact MRI Diagnoses Acute internal derangement of left knee Procedures MRI KNEE LEFT WO CONTRAST Rossy Emmanuel PA-C [address] [employer] [address] [address] Referral ID Status Reason Start Date Expiration Date Visits Re quested Visits Authorized [id number] Closed 06/21/2019 12/18/2019 1 1 Encounter Details Date Type Department Care Team (Latest Contact Info) Description 07/01/2019 7:15 AM CDT - 07/01/2019 11:59 PM CDT Hospital Encounter [facility] Imaging Services - MRI [address] [place] [address] Rossy Emmanuel PA-C [address] - [facility] 3,[address] [place] [address] Discharge Disposition: Home or Self Care Social [...] knee documented in this encounter Care Teams Plant Taxonomist Relationship Specialty Start Date End Date Olivarez, Niurka, SENIOR ABAP DEVELOPER-MIGUEL ANGEL [address] [place] [address] PCP - General 06/07/19 documented as of this encounter
--- OUTSIDE RECORDS SUMMARY | 2024-10-20 04:22 | XMS_ITS | Encounter Summary ---
Author Organization [facility] Address [address] [place] [address]. [place] [address] [place] [address] Care Team Providers Care Creative Strategist Name Role Phone Md Generic Conversion Primary [...] (Late st Contact Info) Description 07/29/2012 Abstract [facility] Interventional [place] [address] [id number] Elis Hood MD Three [facility] [address] [place], [place] [address] Social History Tobacco Use Types Packs/Day Years [...] disc documented in this encounter Care Teams Creative Strategist Relationship Specialty Start Date End Date Kristi [...]
--- OUTSIDE RECORDS SUMMARY | 2024-10-20 04:25 | XMS_ITS | Encounter Summary ---
Author Organization [facility] Address [address] [place] [address] Phone Care Team Providers Care High Tension Tester Name Role Phone Dakota Fabian APRN, CNP Primary Care Pr ovider Reason for Visit * Reason Comments Medication Refill Encounter Details Date Type Department Care Team (Late st Contact Info) Description 05/12/2024 Refill [facility] Medical Group - Family Medicine [facility] #2 [place] [address] Dakota Fabian APRN, MIGUEL ANGEL #[address] [address] Medication Refill Social History Tobacco Use Types Packs/Day Years Used Date Smoking Tobacco: Never Smokeless Tobacco: Never Alcohol Use Standard Drinks/Week Comments No 0 (1 standard drink = 0.6 oz pur e alcohol) [facility] Utilities Answer Date Recorded In the past 12 months has [employer] electric, gas, oil, or water company threatened [...] any clubs o r organizations such as zoroastrian groups, unions, fraternal or athletic groups, or [...] Score - Questions 1-9 0 12/12 [facility] of Occupat ional [facility] - Occupational Stress Questionnaire Answer [...] place to sleep or slept in a snf (including now)? 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 Not on [...] st Contact Info) Description 11/02/2024 8:15 AM CAREGIVERS NON MEDICAL Office Visit [facility] [address]2 [place] [address] Dakota Fabian APRN, UI APPLICATION DEVELOPER #[address] [address] 11/26/2024 11:30 AM CAREGIVERS NON MEDICAL Office Visit [facility] #2 [place] [address] Maggie Tolentino, PAC [address] [place] [address] documented as of this encounter Visit Diagnoses Diagnosis Acute UTI Urinary tract infection, site not specified documented in this encounter Additional Health Concerns Infection Onset Date Last Indicated Resolved Time MRSA 03/30/2020 03/30/2020 Assessment Noted Time PHQ-9 Depression Total Score: 0 01/04/20 23 2:56 PM CDT documented as of this encounter Care Teams High Tension Tester Relationship Specialty Start Date End Date Dakota Fabian APRN, MIGUEL ANGEL #[address] [address] PCP - General Advanced Practice Nurse 04/27/24 documented as of this encounter
--- OUTSIDE RECORDS SUMMARY | 2024-10-20 04:25 | XMS_ITS | Encounter Summary ---
Author Organization [facility] Address [address] [place] [address] Phone Care Team Providers Care Equipment Application Specialist Name Role Phone Dakota Fabian APRN, CNP Primary Care Pr ovider Reason for Visit * Reason Comments New Patient Encounter Details Date Type Department Care Team (Late st Contact Info) Description 04/27/2024 4:00 PM CDT Office Visit [facility] Medical Group - Family Medicine [facility] #2 [place] [address] Dakota Fabian APRN, MIGUEL ANGEL #[address] [address] Primary hypertension (Primary Dx); Degenerative lumbar disc; Acute UTI; Therapeutic drug monitoring Discharge Disposition: Discharged to home or Selfcare Social History Tobacco Use Types Packs/Day Years Used Date Smoking Tobacco: Never Smokeless Tobacco: Never Tobacco Cessation:Counseling Given: No Alcohol Use Standard Drinks/Week Comments No 0 (1 standard drink = 0.6 oz pur e alcohol) [facility] Utilities Answer Date Recorded In [...] often do you attend chur ch or anglican services? 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 Recently went to [facility] with increasing epigastric pain that radiated around to the back. Possible cystitis on CT. UA was positive. Did not get a prescribed antibiotics. Reports having a low-grade temp. No other acute concerns. The history is provided by the patient, the spouse and medical records. No front line leader wasused. Review of Systems Constitutional: Negative for [...] to the patient. Patient (or patient field representatives director) demonstrates verbal understanding of instructions given. Patient [...] st Contact Info) Description 11/02/2024 8:[address]MINISTRATIVE ENGINEER Office Visit [facility] #2 [place] [address] Dakota Fabian APRN, CNP #[address] [address] 11/26/2024 11:[address]MIN[address]RATIVE ENGINEER Office Visit [facility] #2 [place] [address] Maggie Tolentino PAC [address] [place] [address] documented as of this encounter Results * [...] documented as of this encounter Care Teams Equipment Application Specialist Relationship Specialty Start Date End Date Dakota Fabian APRN, CNP #[address] [address] PCP - General Advanced Practice Nurse 04/27/24 documented as of this encounter
--- OUTSIDE RECORDS SUMMARY | 2024-10-20 04:25 | XMS_ITS | Encounter Summary ---
Author Organization 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 Medical Group - Family Medicine [facility] #2 [place] [address] Dakota Fabian, PHYSICIAN RELATIONS SPECIALIST, CAR SALESPERSON [address] [address] 11/26/2024 11:30 AM PERFORATOR TYPIST Office Visit [facility] [place] [address] [place] [address] Maggie Tolentino, PAC [address] [place] [address] documented as of this encounter Visit Diagnoses Not on filedocumented in this encounter Additional Health Concerns Infection Onset Date Last Indicated Resolved Time MRSA 03/30/2020 03/30/2020 Assessment Noted Time PHQ-9 Depression Total Score: 0 01/04/20 23 2:56 PM CDT documented as of this encounter Care Teams Sales Consultant Relationship Specialty Start Date End Date John Méndez MD PCP - General Family Medicine 09/28/19 04/26/24 documented as of this encounter
--- OUTSIDE RECORDS SUMMARY | 2024-10-20 04:25 | XMS_ITS | Encounter Summary ---
Author Organization [facility] Address [address] [place] [address] Phone Care Team Providers Care Line Analyst Name Role Phone Dakota Fabian APRN, CNP Primary Care Pr ovider Reason for Visit * Reason Comments Medication Refill Encounter Details Date Type Department Care Team (Late st Contact Info) Description 06/02/2024 Refill [facility] Medical Group - Family Medicine [facility] #2 [place] [address] Dakota Fabian APRN, MIGUEL ANGEL #[address] [address] Medication Refill Social History Tobacco Use Types Packs/Day Years Used Date Smoking Tobacco: Never Smokeless Tobacco: Never Alcohol Use Standard Drinks/Week Comments No 0 (1 standard drink = 0.6 oz pur e alcohol) [facility] Utilities Answer Date Recorded In the past 12 months has [employer] electric, gas, oil, or water company threatened [...] often do you attend chur ch or hoahaoism services? 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 [...] st Contact Info) Description 11/02/2024 8:15 AM POLISHER HAND Office Visit [facility] #2 [place] [address] Dakota Fabian APRN, OPERATIONS RESEARCH GROUP MANAGER #[address] [address] 11/26/2024 11:30 AM POLISHER HAND Office Visit [facility] #2 [facility] [place] [address] Maggie Tolentino, PAC [address] [place] [address] documented as of this encounter Visit Diagnoses Diagnosis Acute UTI Urinary tract infection, site not specified documented in this encounter Additional Health Concerns Infection Onset Date Last Indicated Resolved Time MRSA 03/30/2020 03/30/2020 Assessment Noted Time PHQ-9 Depression Total Score: 0 01/04/20 2:56 PM CDT documented as of this encounter Care Teams Line Analyst Relationship Specialty Start Date End Date Daktoa Fabian APRN, MIGUEL ANGEL #[address] [address] PCP - General Advanced Practice Nurse 04/27/24 documented as of this encounter
--- OUTSIDE RECORDS SUMMARY | 2024-10-20 04:25 | XMS_ITS | Encounter Summary ---
Author Organization [employer] Care Team Providers Care Hedis Manager Name Role Phone Dakota Fabian APRN, STABLE MANAGER Primary Care Pr ovider Encounter Details Date Type Department Care Team (Latest Contact Info) Description 07/20/2024 Travel Social History Tobacco Use Types Packs/Day Years Used Date Smoking Tobacco: Never Smokeless Tobacco: Never Alcohol Use Standard Drinks/Week Comments No 0 (1 standard drink = 0.6 oz pur e alcohol) [facility] Utilities Answer Date Recorded In the past 12 months has [employer], gas, oil, or water company threatened [...] any clubs o r organizations such as uatsdin groups, unions, fraternal or athletic groups, or [...] Total Score - Questions 1-9 0 12/12 [facility] [place] of Occupat ional Health - Occupational Stress [...] 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 Not on file documented as of this encounter Plan of Treatment Upcoming Encounters Date Type Department Care Team (Late st Contact Info) Description 11/02/2024 8:15 AM WELFARE CASE WORKER Office Visit [facility] [address] [place] [address] Dakota Fabian APRN, STABLE MANAGER #[address] [address] 11/26/2024 11:30 AM WELFARE CASE WORKER Office Visit [facility] [address]2 [place] [address] Maggie Tolention PAC [address] [place] [address] documented as of this encounter Visit Diagnoses Not on filedocumented in this encounter Additional Health Concerns Infection Onset Date Last Indicated Resolved Time MRSA 03/30/2020 03/30/2020 Assessment Noted Time PHQ-9 Depression Total Score: 0 01/04/20 2:56 PM CDT documented as of this encounter Care Teams Hedis Manager Relationship Specialty Start Date End Date Dakota Fabian, BULLDOZER/LOADER/COMPACTOR/SCRAPER, STABLE MANAGER #[address] [address] PCP - General Advanced Practice Nurse 04/27/24 documented as of this encounter
--- OUTSIDE RECORDS SUMMARY | 2024-10-20 04:25 | XMS_ITS | Encounter Summary ---
Author Organization [facility] Address [address] [place] [address] Phone Care Team Providers Care Equipment Oiler Name Role Phone John Méndez MD Primary Care Provider [phone] Reason for Referral * Radiology Services (Routine) - Closed Specialty Diagnoses / Procedures Referred By Magui jacobo Referred To Contact Radiology Procedures GI IMAGING - COLONOSCOPY Rachelle Hood MD [address] [place] [address] Phone: tel: fax: Referral ID Status Reason Start Date Expiration Date Visits Re quested Visits Authorized [id number] Closed 03/03/2024 1 1 Reason for Visit * Auth/Cert (Routine) Specialty Diagnoses / Procedures Referred By Magui jacobo Referred To Contact Diagnoses SCREENING Procedures COLONOSCOPY Rachelle Hood MD [address] [place] [address] Phone: tel: fax: Referral ID Status Reason Start Date Expiration Date Visits Re quested Visits Authorized [id number] 1 1 Encounter Details Date Type Department Care Team (Latest Contact Info) Description 03/03/2024 10:23 AM CDT - 03/03/2024 12:30 PM CDT Hospital Encounter [facility] GI Lab Preop/Pacu II [address] [facility] [place] [phone] Rachelle Hood MD [address] [place] [address] Discharge Disposition: Discharged to home or Selfcare [...] 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 No children under the age of 16 will be allowed in the [facility] unless they are the patient. If the [...] to Teaching: Verbalizes Understanding Patient assessed for english language learner teacher during the preop interview and appropriate interventions taken if applicable. documented in this encounter Plan of Treatment Upcoming Encounters Date Type Department Care Team (Late st Contact Info) Description 11/02/2024 8:15 AM WAREHOUSE REPRESENTATIVE Office Visit [facility] [address] [place] [address] Dakota Fabian APRN, GOLF COURSE DESIGNER #[address] [address] 11/26/2024 11:30 AM WAREHOUSE REPRESENTATIVE Office Visit [facility] [address] [place] [address] Maggie Tolentino, PAC [address] [place] [address] documented as of this encounter Procedures Procedure [...] as of this encounter Care Teams Equipment Oiler Relationship Specialty Start Date End Date John Méndez MD PCP - General Family Medicine 09/28/19 04/26/24 documented as of this encounter
--- OUTSIDE RECORDS SUMMARY | 2024-10-20 04:25 | XMS_ITS | Clinical Summary ---
Author Organization [facility] Address [address] [place] [address] Phone Care Team Providers Care Career Consultant Name Role Phone Dakota Fabian APRN, METAL FABRICATION SUPERVISOR Primary Care Pr ovider Allergies Active Allergy [...] Department Care Team Description 09/11/2024 5:42 PM X RAY INSPECTOR - 09/11/2024 7:41 PM X RAY INSPECTOR Emergency [facility] [address] [place] [address] Ashly Sullivan APRN, METAL FABRICATION SUPERVISOR Viral illness Discharge Disposition: Discharged to home or Selfcare 09/11/2024 Travel 08/29/2024 Refill [facility] [address] [place] [address] Maggie Tolentino PAC Medication Refill 08/17/2024 Telephone [facility] [address] [place] [phone] Dakota Fabian APRN, METAL FABRICATION SUPERVISOR Cough 08/14/2024 Refill [facility] [address]2 [place] [address] Dakota Fabian APRN, CNP Medication Refill 07/20/2024 8:50 AM CDT - 07/20/2024 1:53 PM CDT Emergency [facility] Emergency 1 [place] [phone] Dalton Chapa MD Flank pain Discharge Disposition: [...] drink = 0.6 oz pur e alcohol) [facility] Utilities Answer Date Recorded In the past 12 months has [employer], gas, oil, or water company threatened to [...] How often do you attend chur or hindu services? More than 4 times per year 03/16/2024 Do you belong to any clubs o r organizations such as muslim groups, unions, fraternal or athletic groups, or [...] Total Score - Questions 1-9 0 12/12 [facility] of Occupat ional [facility] - Occupational Stress Questionnaire Answer [...] place to sleep or slept in a care home (including now)? 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 Not on file Not on file Last Filed Vital Signs Vital Sign Reading Time Taken Comments Blood Pressure 139/93 09/11/2024 5:50 PM X RAY INSPECTOR Pulse 96 09/11/2024 7:30 PM X RAY INSPECTOR Temperature 36.1 ??C (96.9 ??F) 09/11/2024 5:50 PM CS T Respiratory Rate 17 09/11/2024 5:50 PM X RAY INSPECTOR Oxygen Saturation 97% 09/11/2024 7:30 PM X RAY INSPECTOR Inhaled Oxygen Concentration - - Weight 90.7 kg (200 lb) 09/11/2024 5:50 PM X RAY INSPECTOR Height 157.5 cm (5' 2 ) 09/11/2024 5:50 PM X RAY INSPECTOR Body Mass Index 36.58 09/11/2024 5:50 PM X RAY INSPECTOR Plan of Treatment Upcoming Encounters Date Type Department Care Team (Late st Contact Info) Description 11/02/2024 8:15 AM X RAY INSPECTOR [facility] [address] [place] [address] Dakota Fabian, INTERNET DESIGNER, METAL FABRICATION SUPERVISOR [address] [address] 11/26/2024 11:30 AM X RAY INSPECTOR Office Visit [facility] [address] [place] [address] Maggie Tolentino Marie, PAC [address] [place] [address] Health Maintenance Due Date Last Done Comments [...] CHEST 2 VIEWS STAT 09/11/2024 6:28 PM X RAY INSPECTOR GROUP A STREP BY PCR STAT 09/11/2024 6:15 PM X RAY INSPECTOR RSV,SARS-COV-2,INF LUENZA A&B BY PCR STAT 09/11/2024 6:[address] ABDOMEN PELVIS W/ CONTRAST Stat with [...] XR CHEST 2 VIEWS (09/11/2024 6:28 PM X RAY INSPECTOR) Anatomical Region Laterality Modality Chest N/A Digital Radiogra phy 09/11/2024 7:20 PM X RAY INSPECTOR Impressions 09/11/2024 7:23 PM X RAY INSPECTOR IMPRESSION: No acute cardiopulmonary abnormality. Narrative 09/11/2024 7:23 PM X RAY INSPECTOR EXAM DESCRIPTION: XR CHEST 2 VIEWS REASON [...] PM T: ??09/11/2024 7:20 PM Report ID: [id number] Reading Location: ??[id number] Procedure Note Nick Godinez MD - 09/11/2024 [...] Nick Godinez M.D. AM: AM Report ID: [id number] Reading Location: [id number] IMPRESSION: No acute cardiopulmonary abnormality. Ashly Sullivan APRN, CNP IMG DIAGNOSTIC ORDERA BLES Final Result * GROUP A STREP BY PCR (09/11/2024 6:15 PM X RAY INSPECTOR) GROUP A STREP BY PCR NOT DETECTED NOT DETECTED 09/11/2024 7:08 PM X RAY INSPECTOR [facility] Swab SPECIMEN FROM THROAT / Unknown Non-Phlebotomy Collection / Unknown 09/11/2024 6:15 PM X RAY INSPECTOR 09/11/2024 6:40 PM X RAY INSPECTOR Ashly Sullivan APRN, MIGUEL ANGEL MICROBIOLOGY - GENERA L ORDERABLES Final Result [facility] [address] [place] [address] * RSV,SARS-COV-2,INFLUENZA A&B BY PCR (09/11/2024 6:15 PM X RAY INSPECTOR) FLU A Negative Negative, Error 09/11/2024 7:21 PM X RAY INSPECTOR [facility] FLU B Negative Negative 09/11/2024 7:21 PM X RAY INSPECTOR [facility] RESP SYNC VIRUS Negative Negative 7:21 PM X RAY INSPECTOR [facility] SARSCOV2 NOT DETECTED (Reference Range for this test is Not Detected) 09/11/2024 7:21 PM X RAY INSPECTOR [facility] Comment:This test was perfor med by a Reverse Insulation Supervisor PCR Method. Swab NASOPHARYNGEAL SWAB / Unknown Non-Phlebotomy Collection / Unknown 09/11/2024 6:15 PM X RAY INSPECTOR 09/11/2024 6:40 PM X RAY INSPECTOR Narrative [facility] - 09/11/2024 7:21 PM X RAY INSPECTOR This test has not been FDA cleared or approved; the test has been authorized by FDA under an Emergency Use Authorization (EUA) for use by laboratories certified under the CLIA that meet the requirements to perform moderate, high or waived complexity tests. Authorized Fact Sheets about this test for providers and patients are available at: https://www.fda.gov/medical-devices/eppiybaks-lnuxjlteoa-bizueti-devices/emergen -us e-authorizations us Ashly Sullivan APRN, METAL FABRICATION SUPERVISOR MICROBIOLOGY - GENERA L ORDERABLES Final Result [facility] [address] [place] [address] * CT ABDOMEN PELVIS W/ CONTRAST (07/20/2024 [...] PM T: ??07/20/2024 12:52 PM Report ID: [id number] Reading Location: ??[id number] Procedure Note Jaret Lares MD - 07/20/2024 [...] Jaret Lares M.D. AG: MAURI Report ID: [id number] Reading Location: [id number] IMPRESSION: 1. No gross CT finding to explain the patient's symptoms. Dalton Chapa MD IMG CT ORDERABLES Serene l Result * Gold Top Tube (07/20/2024 9:42 AM CDT) Blood No Phlebotomy Charged / Unknown 07/20/2024 9:42 AM CDT 07/20/2024 9:50 AM CDT Dalton Chapa MD CHEMISTRY ORDERABLES F inal Result Performing Organization Address City/[facility] Co de Phone Number [facility] [address] [place] [address] * Blue Top Tube (07/20/2024 9:42 AM CDT) Blood No Phlebotomy Charged / Unknown 07/20/2024 9:42 AM CDT 07/20/2024 9:50 AM CDT Dalton Chapa MD HEMATOLOGY ORDERABLES Final Result Performing Organization Address City/[facility]/ZIP Co de Phone Number [facility] [address] [place] [address] * CBC with Auto Differential (07/20/2024 9:42 AM CDT) WBC 6.66 4.00 - 12.00 10(3)/mcL 07/20/2024 9:59 AM CDT [facility] RBC 4.68 3.80 - 5.30 10(6)/mcL 07/20/2024 9:59 AM CDT [facility] HEMOGLOBIN (HGB) 13.7 12.0 - 15.8 g/dL 07/20/2024 9:59 AM CDT [facility] HEMATOCRIT (HCT) 42 36 - 47 % 07/20/20 9:59 AM CDT [facility] MCV 89.5 82.0 - 96.0 fL 07/20/2024 9:59 AM CDT [facility] MCH 29.3 26.0 - 34.0 pg 07/20/2024 9:59 AM CDT [facility] MCHC 32.7 31.0 - 36.0 g/dL 07/20/2024 9:59 AM CDT [facility] PLATELET COUNT 391 140 - 440 10(3)/mcL 07/20/2024 9:59 AM CDT [facility] RDW 14.3 11.8 - 15.5 % 07/20/2024 9:59 AM CDT [facility] MPV 10.0 9.7 - 12.4 fL 07/20/2024 9:59 AM CDT [facility] NEUTROPHILS 68.4 47.0 - 73.0 % 07/20/2024 9:59 AM CDT [facility] LYMPHOCYTES 22.7 18.0 - 42.0 % 07/20/2024 9:59 AM CDT [facility] MONOCYTES 5.4 4.0 - 12.0 % 07/20/2024 9:59 AM CDT [facility] EOSINOPHILS 2.3 0.0 - 5.0 % 07/20/2024 9:59 AM CDT [facility] BASOPHILS 0.9 0.0 - 1.0 % 07/20/2024 9:59 AM CDT [facility] ABSOLUTE NEUTROPHILS 4.56 1.60 - 7.70 10(3)/mcL 07/20/2024 9:59 AM CDT [facility] ABSOLUTE LYMPHOCYTES 1.51 1.30 - 3.20 10(3)/mcL 07/20/2024 9:59 AM CDT [facility] ABSOLUTE MONOCYTES 0.36 0.20 - 1.00 10(3)/mcL 07/20/2024 9:59 AM CDT [facility] ABSOLUTE EOSINOPHIL 0.15 0.00 - 0.40 10(3)/mcL 07/20/2024 9:59 AM CDT [facility] ABSOLUTE BASOPHILS 0.06 0.00 - 0.10 10(3)/[facility] 07/20/2024 9:59 AM CDT [facility] Blood Venipuncture / Unknown 07/20/2024 9:42 AM CDT 07/20/2024 9:48 AM CDT us Dalton Chapa MD HEMATOLOGY ORDERABLES Final Result [facility] [address] [place] [address] * (ABNORMAL) CMP (07/20/2024 9:42 AM CDT) SODIUM 142 136 - 145 mmol/L 07/20/2024 10:35 AM CDT [facility] POTASSIUM 4.1 3.5 - 5.1 mmol/L 07/20/2024 10:35 AM CDT [facility] CHLORIDE 105 98 - 107 mmol/L 07/20/2024 10:35 AM CDT [facility] CO2, VENOUS 28 22 - 30 mmol/L 07/20/2024 10:35 AM CDT [facility] ANION GAP 13.1 <18.0 mmol/L 07/20/2024 10:35 AM CDT [facility] GLUCOSE 94 70 - 99 mg/dL 07/20/2024 10:35 AM CDT [facility] BUN 6 5 - 18 mg/dL 07/20/2024 10:35 AM T [facility] CREATININE, BLOOD 0.68 0.60 - 1.00 mg/dL 07/20/2024 10:35 AM CDT [facility] BUN/CREATININE RATIO 9(L) 12 - 20 ratio 07/20/2024 10:35 AM CDT [facility] TOTAL PROTEIN 7.2 6.3 - 8.2 g/dL 07/20/2024 10:35 AM T [facility] ALBUMIN 4.1 3.5 - 5.0 g/dL 07/20/2024 10:35 AM T [facility] A/G RATIO 1.3 1.0 - 2.2 07/20/2024 10:35 AM T [facility] CALCIUM 8.8 8.7 - 10.5 mg/dL 07/20/2024 10:35 AM T [facility] T BILI 0.5 0.2 - 1.2 mg/dL 07/20/2024 10:35 AM [facility] SGOT (AST) 19 5 - 34 U/L 07/20/2024 10:35 AM [facility] SGPT (ALT) 22 0 - 55 U/L 07/20/2024 10:35 AM [facility] ALKALINE PHOSPHATASE 61 40 - 150 U/L 07/20/2024 10:35 AM [facility] GFR, ESTIMATED >60 >=60 07/20/2024 10:35 AM [facility] Comment: Creatinine Clearance is the preferred criteria for selecting drug dose adjustments in renally impaired patients. ??The GFR is provided as additional pertinent clinical information. GFR is reported in mL/min/1.73 sq m. Calculation based on the Chronic Kidney Disease Epidemiology Collaboration (CKD- EPI) equation refit without adjustment for race. GFR, EST. >60 >=60 024 10:35 AM CDT [facility] GFR, EST. NONAFRICAN >60 >=60 07/20/2024 10:35 AM CDT [facility] Blood Venipuncture / Unknown 07/20/2024 9:42 AM CDT 07/20/2024 9:48 AM CDT us Dalton Chapa MD CHEMISTRY ORDERABLES F inal Result [facility] [address] [place] [address] * (ABNORMAL) Urinalysis w/ Reflex (07/20/2024 9:01 AM CDT) SPECIFIC GRAVITY 1.015 1.003 - 1.030 07/20/2024 9:25 AM CDT [facility] URINE PH 8.0 5.0 - 9.0 07/20/2024 9:25 AM CDT [facility] WBC ESTERASE Negative Negative 07/20/2024 9:25 AM CDT [facility] NITRITE Negative Negative 07/20/2024 9:25 AM CDT [facility] PROTEIN, RANDOM URINE 15 mg/dL(A) Negative 07/20/2024 9:25 AM CDT [facility] URINE GLUCOSE, QUAL Negative Negative 07/20/2024 9:25 AM CDT [facility] URINE KETONES Negative Negative 07/20/2024 9:25 AM CDT [facility] UROBILINOGEN Normal Normal mg/dL 07/20/2024 9:25 AM CDT [facility] URINE BLOOD Negative Negative marjorie/ul 07/20/2024 9:25 AM CDT [facility] URINALYSIS COLOR Yellow 07/20/20 9:25 AM CDT [facility] URINALYSIS CLARITY Clear 07/20/2024 9:25 AM CDT [facility] Urine URINE SPECIMEN / Unknown Non-Phlebotomy Collection / Unknown 07/20/2024 9:01 AM CDT 07/20/2024 9:21 AM CDT us Dalton Chapa MD URINE ORDERABLES Final Result [facility] [address] [place] [address] * HEPATITIS C ANTIBODY (05/10/2024 4:31 PM CDT) hepatitis C antibody 0.07 <1 S/CO 05/11/2024 3:39 PM CDT [facility] Comment: Signal/Cutoff ratio ??< 0.79 is Nondetected Signal/Cutoff ratio 0.80-0.99 is Grayzone Signal/Cutoff ratio > 0.99 is Detected Supplemental assays are recommended if signal/cutoff ratio is >/=1.00. ??Signal/cutoff ratio result >/= 5.00 is 97% predictive of positivity for recombinant immunoblot assay (RIBA) and will be reported to the [place] Department of Public Health as required. Blood Venipuncture / Unknown 05/10/2024 4:31 PM CDT 05/10/2024 4:45 PM CDT us Dakota Fabian APRN, METAL FABRICATION SUPERVISOR CHEMISTRY ORDERA BLES Final Result Performing Organization Address City/[facility] Co de Phone Number [facility] [address] [place] [address], [place] * MARCO A SCREENING BILATERAL DIGITAL [...] to exams dated: ??07/22/2020, 09/05/2018, and 02/13/2016 [facility]. ?? BREAST TISSUE:The tissue of both [...] Killian Sandoval M.D. ? ll/penrad:08/03/2021 11:33:14 ?? Tax Advisor(s): Nellie ??RT Pam(R)(M), [facility] letter sent: Normal Exam ?? Reading location: [facility] BI-RADS: 2 Benign Procedure Note [...] to exams dated: 07/22/2020, 09/05/2018, and 02/13/2016 [facility]. BREAST TISSUE:The tissue of both breasts [...] signed by: Killian Sandoval M.D. ll/penrad:08/03/2021 11:33:14 Tax Advisor(s): RT Freddie(R)(M), [facility] letter sent: Normal Exam Reading location: [facility] BI-RADS: 2 Benign us John Méndez MD IMG MAMMO ORDERABLES Final Resul t from Last 3 Months or Most Recently Relevant to Health Maintenance Additional Health Concerns Infection Onset Date Last Indicated MRSA 03/30/2020 03/30/2020 Insurance MEDICAID [place] Care Teams Career Consultant Relationship Specialty Start Date End Date Dakota Fabian APRN, METAL FABRICATION SUPERVISOR [address] [place] [address] PCP - General Advanced Practice Nurse 04/27/24
--- OUTSIDE RECORDS SUMMARY | 2024-10-20 04:25 | XMS_ITS | Encounter Summary ---
Author Organization [employer] Care Team Providers Care Shop Clerk Name Role Phone Dakota Fabian APRN, BILL OF MATERIALS CLERK Primary Care Pr ovider Encounter Details Date Type Department Care Team (Latest Contact Info) Description 04/27/2024 Travel Social History Tobacco Use Types Packs/Day Years Used Date Smoking Tobacco: Never Smokeless Tobacco: Never Alcohol Use Standard Drinks/Week Comments No 0 (1 standard drink = 0.6 oz pur e alcohol) [facility] Utilities Answer Date Recorded In the past 12 months has [employer] electric, gas, oil, or water company threatened [...] often do you attend chur ch or jainism services? More than 4 times per year 03/16/2024 Do you belong to any clubs o r organizations such as latter day groups, unions, fraternal or athletic groups, or [...] Total Score - Questions 1-9 0 12/12 [facility] [place] of Occupat ional Health - Occupational Stress [...] place to sleep or slept in a long term (including now)? 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 [...] st Contact Info) Description 11/02/2024 8:15 AM PRODUCT SAFETY HEAD Office Visit [facility] [address] [place] [address] Dakota Fabian APRN, BILL OF MATERIALS CLERK [address] [address] 11/26/2024 11:30 AM PRODUCT SAFETY HEAD Office Visit [facility] [address] [place] [address] Maggie Tolentino, [place] [address] [place] [address] documented as of this encounter Visit Diagnoses Not on filedocumented in this encounter Additional Health Concerns Infection Onset Date Last Indicated Resolved Time MRSA 03/30/2020 03/30/2020 Assessment Noted Time PHQ-9 Depression Total Score: 0 01/04/20 23 2:56 PM CDT documented as of this encounter Care Teams Shop Clerk Relationship Specialty Start Date End Date Dakota Fabian APRN, BILL OF MATERIALS CLERK #[address] [address] PCP - General Advanced Practice Nurse 04/27/24 documented as of this encounter
--- OUTSIDE RECORDS SUMMARY | 2024-10-20 04:25 | XMS_ITS | Encounter Summary ---
Author Organization [facility] Address [address] [place] [address] Phone Care Team Providers Care Campus Dean Name Role Phone Dakota Fabian APRN, MANAGER STATISTICAL Primary Care Pr ovider Reason for Visit * Reason Comments Nail Problem Encounter Details Date Type Department Care Team (Late st Contact Info) Description 06/04/2024 9:00 AM CDT Office Visit [facility] - Family Medicine [facility] [address] [place] [address] Maggie Tolentino PAC [address] [place] [address] Primary hypertension (Primary Dx); Paronychia of finger, left; Chronic sinusitis, unspecified location Discharge Disposition: Discharged to home or Selfcare Social History Tobacco Use Types Packs/Day Years Used Date Smoking Tobacco: Never Smokeless Tobacco: Never Alcohol Use Standard Drinks/Week Comments No 0 (1 standard drink = 0.6 oz pur e alcohol) [facility] Utilities Answer Date Recorded In the past 12 months has e [employer], gas, oil, or water company threatened to [...] often do you attend chur ch or mormon services? 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 Discussed chronic sinusitis refilled cetirizine in [facility]. Return to clinic in 3 months for transfer care appointment. Notify of any acute problems. documented in this encounter Plan of Treatment Upcoming Encounters Date Type Department Care Team (Late st Contact Info) Description 11/02/2024 8:15 AM CONVERTER SUPERVISOR Office Visit [facility] [address] [place] [address] Dakota Fabian APRN, MANAGER STATISTICAL [address] [address] 11/26/2024 11:30 AM CONVERTER SUPERVISOR Office Visit [facility] [address] [place] [address] Maggie Tolentino, PAC [address] [place] [address] documented as of this encounter Procedures Procedure Name Priority Date/Time Associated Diagnosis Comments CULTURE, AEROBIC Routine 06/04/2024 11:1 0 AM CDT Paronychia of finger, left documented in this encounter Results * CULTURE, AEROBIC (06/04/2024 11:10 AM CDT) CULTURE RESULTS STAPHYLOCOCCUS HOMINIS 06/05/2024 4:49 PM CDT [facility] Comment:NO FURTHER WORKUP PE RFORMED CULTURE RESULTS STAPHYLOCOCCUS EPIDERMIDIS 06/05/2024 4:49 PM CDT [facility] Comment:NO FURTHER WORKUP PE RFORMED Culture SPECIMEN COLLECTION BY DRAINAGE / Unknown Non-Phlebotomy Collection / Unknown 06/04/2024 11:10 AM CDT 06/04/2024 11:10 AM CDT Maggie Tolentino PAC MICROBIOLOGY - GENERAL O RDERABLES Final Result [facility] [address] [place] [address], documented in this encounter Visit Diagnoses Diagnosis Primary hypertension- Primary Unspecified essential hypertension Paronychia of finger, left Chronic sinusitis, unspecified location documented in this encounter Additional Health Concerns Infection Onset Date Last Indicated Resolved Time MRSA 03/30/2020 03/30/2020 Assessment Noted Time PHQ-9 Depression Total Score: 0 01/04/20 23 2:56 PM CDT documented as of this encounter Care Teams Campus Dean Relationship Specialty Start Date End Date Dakota Fabian, THOM, MANAGER STATISTICAL [address] [address] PCP - General Advanced Practice Nurse 04/27/24 documented as of this encounter
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
--- OUTSIDE RECORDS SUMMARY | 2024-10-20 04:25 | XMS_ITS | Encounter Summary ---
Author Organization [facility] Address [address] [place] [address] Phone Care Team Providers Care Dust Box Tender Name Role Phone Dakota Fabian APRN, CNP Primary Care Pr ovider Reason for Visit * Reason Comments Medication Refill Encounter Details Date Type Department Care Team (Late st Contact Info) Description 08/29/2024 Refill [facility] - Family Medicine [facility] [address] [place] [id number] Maggie Tolentino, [facility] [address] [place] [address] Medication Refill Social History Tobacco Use Types Packs/Day Years Used Date Smoking Tobacco: Never Smokeless Tobacco: Never Alcohol Use Standard Drinks/Week Comments No 0 (1 standard drink = 0.6 oz pur e alcohol) [facility] Utilities Answer Date Recorded In the past 12 months has [employer] electric, gas, oil, or water company threatened [...] often do you attend chur ch or rastafarian services? More than 4 times per year [...] Total Score - Questions 1-9 0 12/12 [facility] of Occupat ional Health - Occupational [...] place to sleep or slept in a skilled nursing (including now)? 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 Not on file documented as of this encounter Miscellaneous Notes * Telephone Encounter - Linda Bunch RN - 08/29/2024 11:21 AM SOCK TURNER Medication(s) refilled and signed per [facility] Chronic [...] CNP [facility] [place] 03/16/24 Office Visit Dakota Fabian APRN, MIGUEL ANGEL [facility] [place] Showing recent visits within past 365 days and meeting all other requirements Future Appointments Date Type Provider Dept 09/06/24 Appointment Maggie Tolentino PAC [facility] 11/02/24 Appointment Dakota Fabian APRN, MIGUEL ANGEL [facility] Showing future appointments within next 90 days and meeting all other requirements TURNER documented in this encounter Plan of Treatment Upcoming Encounters Date Type Department Care Team (Late st Contact Info) Description 11/02/2024 8:15 AM SOCK TURNER Office Visit [facility] [address] [place] [address] Dakota Fabian APRN, MIGUEL ANGEL [address] [address] 11/26/2024 11:30 AM SOCK TURNER Office Visit [facility] [address] [place] [address] Maggie Tolentino PAC [address] [place] [address] documented as of this encounter Visit Diagnoses Diagnosis Chronic sinusitis, unspecified location documented in this encounter Additional Health Concerns Infection Onset Date Last Indicated Resolved Time MRSA 03/30/2020 03/30/2020 Assessment Noted Time PHQ-9 Depression Total Score: 0 01/04/20 23 2:56 PM CDT documented as of this encounter Care Teams Dust Box Tender Relationship Specialty Start Date End Date Dakota Fabian APRN, MIGUEL ANGEL [address] [place] [address] PCP - General Advanced Practice Nurse 04/27/24 documented as of this encounter
--- OUTSIDE RECORDS SUMMARY | 2024-10-20 04:25 | XMS_ITS | Encounter Summary ---
Author Organization [employer] Care Team Providers Care Content Engineer Name Role Phone John Méndez MD Primary Care Provider [phone] Encounter Details Date Type Department Care Team (Latest Contact Info) Description 03/16/2024 Travel Social History Tobacco Use Types Packs/Day Years Used Date Smoking Tobacco: Never Smokeless Tobacco: Never Alcohol Use Standard Drinks/Week Comments No 0 (1 standard drink = 0.6 oz pur e alcohol) [facility] Utilities Answer Date Recorded In the past 12 months has [employer] electric, gas, oil, or water company threatened [...] How often do you attend chur or rastafarian services? More than 4 times per year 03/16/2024 Do you belong to any clubs o r organizations such as voodoo groups, unions, fraternal or athletic groups, or [...] Score - Questions 1-9 0 12/12 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 [...] drink 03/16/2024 3:45 PM CDT [facility] * Q3: How often do you [...] Contact Info) Description 11/02/2024 8:15 AM TELEVISION PRODUCTION CLERK Office Visit [facility] [address] [place] [address] Dakota Fabian APRN, TENTMAKER #[address] [address] 11/26/2024 11:30 AM TELEVISION PRODUCTION CLERK Office Visit [facility] [address] [place] [address] Maggie Tolentino, PAC [address] [place] [address] documented as of this encounter Visit Diagnoses Not on filedocumented in this encounter Additional Health Concerns Infection Onset Date Last Indicated Resolved Time MRSA 03/30/2020 03/30/2020 Assessment Noted Time PHQ-9 Depression Total Score: 0 01/04/20 23 2:56 PM CDT documented as of this encounter Care Teams Content Engineer Relationship Specialty Start Date End Date John Méndez MD PCP - General Family Medicine 09/28/19 04/26/24 documented as of this encounter
--- OUTSIDE RECORDS SUMMARY | 2024-10-20 04:25 | XMS_ITS | Encounter Summary ---
Author Organization [facility] Address [address] [place] [address] Phone Care Team Providers Care Baggage Agent Supervisor Name Role Phone Dakota Fabian APRN, CNP Primary Care Pr ovider Reason for Visit * Reason Onset Date Comments Medication Management 05/17/2024 ED Follow-up 05/17/2024 Encounter Details Date Type Department Care Team (Late st Contact Info) Description 05/17/2024 Telephone [facility] Central Call Center [address] [place] [address] Dakota Fabian APRN, MOTOR COACH SUPERVISOR [address] [address] Medication Management; ED Follow-up Social History Tobacco Use Types Packs/Day Years Used Date Smoking Tobacco: Never Smokeless Tobacco: Never Alcohol Use Standard Drinks/Week Comments No 0 (1 standard drink = 0.6 oz pur e alcohol) [facility] Utilities Answer Date Recorded In the past 12 months has [email or web address], gas, oil, or water company threatened to [...] often do you attend chur ch or confucianist services? More than 4 times per year 03/16/2024 Do you belong to any clubs o r organizations such as scientologist groups, unions, fraternal or athletic groups, or [...] [facility] of Occupat ional Health - [...] place to sleep or slept in a long-term (including now)? 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 [...] st Contact Info) Description 11/02/2024 8:15 AM FABRICATION TECHNICIAN Office Visit [facility] [address] [place] [address] Dakota Fabian APRN, MOTOR COACH SUPERVISOR #[address] [address] 11/26/2024 11:30 AM FABRICATION TECHNICIAN Office Visit [facility] [address] [place] [address] Maggie Tolentino PAC [address] [place] [address] documented as of this encounter Visit Diagnoses Not on filedocumented in this encounter Additional Health Concerns Infection Onset Date Last Indicated Resolved Time MRSA 03/30/2020 03/30/2020 Assessment Noted Time PHQ-9 Depression Total Score: 0 01/04/20 23 2:56 PM CDT documented as of this encounter Care Teams Baggage Agent Supervisor Relationship Specialty Start Date End Date Dakota Fabian APRN, MOTOR COACH SUPERVISOR #[address] [address] PCP - General Advanced Practice Nurse 04/27/24 documented as of this encounter
--- OUTSIDE RECORDS SUMMARY | 2024-10-20 04:25 | XMS_ITS | Encounter Summary ---
Author Organization [facility] Address [address] [place] [address] Phone Care Team Providers Care Lean Manufacturing Coordinator Name Role Phone oJhn Méndez MD Primary Care Provider [phone] Reason for Referral * Radiology Services (Routine) - Authorized Specialty Diagnoses / Procedures Referred By Magui jacobo Referred To Contact Radiology Diagnoses Encounter for screening mammogram for malignant neoplasm of breast Procedures MARCO A SCREENING BILATERAL DIGITAL W CAD W SHENG Dakota Fabian APRN, FURNACE CLEANER #[address] [address] Phone: tel: fax: Referral ID Status Reason Start Date Expiration Date V isits Requested Visits Authorized [id number] Authorized 03/16/2024 1 1 * Consult, Test & Initiate Treatment (Routine) - Closed Specialty Diagnoses / Procedures Referred By Magui jacobo Referred To Contact Diagnoses Moderate episode of recurrent major depressive disorder (HCC) Anxiety Dakota Fabian APRN, FURNACE CLEANER #[address] [address] Phone: tel: fax: [address] [address] Phone: tel: fax: Referral ID Status Reason Start Date Expiration Date Visits Re quested Visits Authorized [id number] Closed 03/16/2024 1 1 Scheduling Instructions Melinda [...] CDT Office Visit [facility] [address] [place] [address] Dakota Fabian APRN, MIGUEL ANGEL #[address] [address] Moderate episode of recurrent major depressive disorder (HCC) (Primary Dx); Anxiety; Primary hypertension; Chronic bilateral low back pain with bilateral sciatica; 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 * Dakota Fabian APRN, FURNACE CLEANER - 03/16/2024 4:15 PM CDT Subjective: Subjective [...] by the patient and medical records. No medical driver was used. Preventive Care Pertinent negatives include [...] Dispense: 90 Capsule; Refill: 1 5. 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 Patient (or patient inbound sales representative) demonstrates verbal understanding of instructions [...] st Contact Info) Description 11/02/2024 8:15 AM FILLING ROOM OPERATOR Office Visit [facility] [place] [place] [address] Dakota Fabian APRN, MIGUEL ANGEL [address] [address] 11/26/2024 11:30 AM FILLING ROOM OPERATOR Office Visit [facility] [address] [place] [address] NikkiMaggie silvestre, PAC [address] [place] [address] Scheduled Orders Name Type Priority Associated Diagnoses [...] HEPATITIS C ANTIBODY (05/10/2024 4:31 PM CDT) [facility] hepatitis C antibody 0.07 <1 S/CO 05/11/2024 3:39 PM CDT [facility] Comment: Signal/Cutoff ratio ??< 0.79 is Nondetected Signal/Cutoff ratio 0.80-0.99 is Grayzone Signal/Cutoff ratio > 0.99 is Detected Supplemental assays are recommended if signal/cutoff ratio is >/=1.00. ??Signal/cutoff ratio result >/= 5.00 is 97% predictive of positivity for recombinant immunoblot assay (RIBA) and will be reported to the [place] Department of Public Health as required. Blood Venipuncture / Unknown 05/10/2024 4:31 PM CDT 05/10/2024 4:45 PM CDT us Dakota Fabian APRN, FURNACE CLEANER CHEMISTRY ORDERA BLES Final Result [facility] [address] [place] [address], * (ABNORMAL) FOLIC ACID (FOLATE) (05/10/2024 4:31 PM CDT) Pathologist [facility] FOLATE 3.9(L) 7.0 - 31.4 ng/mL 05/10/2024 5:59 PM CDT [facility] IS THE PATIENT REQUIRED TO BE FASTING? No 05/10/2024 5:59 PM CDT [facility] Blood Venipuncture / Unknown 05/10/2024 4:31 PM CDT 05/10/2024 4:45 PM CDT Dakota Gonzáles Rui TOMAS, FURNACE CLEANER CHEMISTRY ORDERA BLES Final Result Performing Organization Address City/[facility]/ZIP Co de Phone Number [facility] [address] [place] [address] * VITAMIN B12 (05/10/2024 4:31 PM CDT) VITAMIN B12 229 213 - 816 pg/mL 05/10/2024 5:59 PM CDT [facility] Blood Venipuncture / Unknown 05/10/2024 4:31 PM CDT 05/10/2024 4:45 PM CDT Dakotafran Fabina APRN, MIGUEL ANGEL CHEMISTRY ORDERA BLES Final Result Performing Organization Address City/[facility]/ZIP Co de Phone Number [facility] [address] [place] [address] * VITAMIN D, 25 HYDROXY TOTAL (05/10/2024 4:31 PM CDT) VITAMIN D, 25 HYDROX 24 ng/mL 05/10/2024 5:59 PM CDT [facility] Blood Venipuncture / Unknown 05/10/2024 4:31 PM CDT 05/10/2024 4:45 PM CDT Narrative [facility] - 05/10/2024 5:59 PM CDT Published reference ranges for Vitamin D vary depending on time and place and method of testing, and on patient's age, sex, ethnicity and levels of other measured analytes such as parathormone, calcium and phosphorus. ??The result should be evaluated in conjunction with clinical findings and suspicions. [employer] of Medicine and Endocrine Clinical Practice Guidelines: Status Vitamin D levels (ng/mL) Deficient <=20 At risk of inadequacy 21-29 Sufficient 30-100 Centers of Disease Control and Prevention Guidelines: Status Vitamin D levels (ng/mL) Deficient <13 At risk of inadequacy 13-19 Sufficient 20-50 Possibly harmful >50 References: [employer] of Medicine, 2010 Dietary reference intakes for calcium and vitamin D. [place]: ??The National Academies Press. Vijay M, Fabiana N, Jerrod ISBELL, et al., Evaluation, treatment, and prevention of Vitamin D deficiency: an Endocrinology Clinical Practice Guideline. JCEM 2011 96: 7 3837-3710. Kathy A, Amari C, Maicol D, et al., Vitamin D Status: ??[place], 1005, [facility] data brief, no. 59, MD [place]: ??National Center for Health Statistics. 2010. Dakota Fabian APRN, [facility] CHEMISTRY ORDERA BLES Final Result [facility] [address] [place] [address] * (ABNORMAL) LIPID PANEL (05/10/2024 4:31 PM CDT) CHOLESTEROL 212(H) <200 mg/dL 05/10/2024 6:21 PM CDT [facility] TRIGLYCERIDES 211(H) <150 mg/dL 05/10/2024 6:21 PM CDT [facility] HDL CHOLESTEROL 47 >40 mg/dL 6:21 PM CDT [facility] LDL 123 <130 mg/dL 05/10/2024 6:21 PM CDT [facility] VLDL 42 10 - 50 mg/dL 05/10/2024 6:21 PM CDT [facility] CHOL/HDL RATIO 4.5(H) 0.0 - 4.4 05/10/2024 6:21 PM CDT [facility] NON-HDL CHOLESTEROL 165(H) <130 mg/dL 05/10/2024 6:21 PM CDT [facility] IS THE PATIENT REQUIRED TO BE FASTING? No 05/10/2024 6:21 PM CDT [facility] Blood Venipuncture / Unknown 05/10/2024 4:31 PM CDT 05/10/2024 4:45 PM CDT us Dakota Eliecer Banksomon MONITOR TECH, FURNACE CLEANER CHEMISTRY ORDERA BLES Final Result [facility] [address] [place] [address] * (ABNORMAL) CMP (COMPREHENSIVE METABOLIC PANEL) (05/10/2024 4:31 PM CDT) SODIUM 143 136 - 145 mmol/L 05/10/2024 6:43 PM CDT [facility] POTASSIUM 3.5 3.5 - 5.1 mmol/L 05/10/2024 6:43 PM CDT [facility] CHLORIDE 109(H) 98 - 107 mmol/L 05/10/2024 6:43 PM CDT [facility] CO2, VENOUS 27 22 - 30 mmol/L 05/10/2024 6:43 PM CDT [facility] ANION GAP 10.5 <18.0 mmol/L 05/10/2024 6:43 PM CDT [facility] GLUCOSE 113(H) 70 - 99 mg/dL 05/10/2024 6:43 PM CDT [facility] BUN 9 5 - 18 mg/dL 05/10/2024 6:43 PM CDT [facility] CREATININE, BLOOD 0.76 0.60 - 1.00 mg/dL 05/10/2024 6:43 PM CDT [facility] BUN/CREATININE RATIO 12 12 - 20 ratio 05/10/2024 6:43 PM CDT [facility] TOTAL PROTEIN 7.2 6.3 - 8.2 g/dL 05/10/2024 6:43 PM CDT [facility] ALBUMIN 4.3 3.5 - 5.0 g/dL 05/10/2024 6:43 PM CDT [facility] A/G RATIO 1.5 1.0 - 2.2 05/10/2024 6:43 PM CDT [facility] CALCIUM 9.1 8.7 - 10.5 mg/dL 05/10/2024 6:43 PM CDT [facility] T BILI 0.3 0.2 - 1.2 mg/dL 05/10/2024 6:43 PM CDT [facility] SGOT (AST) 16 5 - 34 U/L 05/10/2024 6:43 PM CDT [facility] SGPT (ALT) 13 0 - 55 U/L 05/10/2024 6:43 PM CDT [facility] ALKALINE PHOSPHATASE 56 40 - 150 U/L 05/10/2024 6:43 PM CDT [facility] IS THE PATIENT REQUIRED TO BE FASTING? No 05/10/2024 6:43 PM CDT [facility] GFR, ESTIMATED >60 >=60 05/10/2024 6:43 PM CDT [facility] Comment: Creatinine Clearance is the preferred criteria for selecting drug dose adjustments in renally impaired patients. ??The GFR is provided as additional pertinent clinical information. GFR is reported in mL/min/1.73 sq m. Calculation based on the Chronic Kidney Disease Epidemiology Collaboration (CKD- EPI) equation refit without adjustment for race. GFR, EST. >60 >=60 024 6:43 PM CDT [facility] GFR, EST. NONAFRICAN >60 >=60 05/10/2024 6:43 PM CDT [facility] Blood Venipuncture / Unknown 05/10/2024 4:31 PM CDT 05/10/2024 4:45 PM CDT us Dakota Fabian MONITOR TECH, FURNACE CLEANER CHEMISTRY ORDERA BLES Final Result [facility] [facility] [place] [address] documented in this encounter Visit Diagnoses Diagnosis Moderate episode of recurrent major depressive disorder (HCC)- Primary Anxiety Anxiety state, unspecified Primary hypertension Unspecified essential hypertension Chronic bilateral low back pain with bilateral sciatica Other senior care (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 therapy Encounter for hepatitis C [...] documented as of this encounter Care Teams Lean Manufacturing Coordinator Relationship Specialty Start Date End Date John Méndez MD PCP - General Family Medicine 09/28/19 04/26/24 documented as of this encounter
--- OUTSIDE RECORDS SUMMARY | 2024-10-20 04:25 | XMS_ITS | Encounter Summary ---
Author Organization [employer] Care Team Providers Care Switchboard Installer Name Role Phone Dakota Fabian APRN, PLASTER TENDER Primary Care Pr ovider Encounter Details Date Type Department Care Team (Latest Contact Info) Description 06/04/2024 Travel Social History Tobacco Use Types Packs/Day Years Used Date Smoking Tobacco: Never Smokeless Tobacco: Never Alcohol Use Standard Drinks/Week Comments No 0 (1 standard drink = 0.6 oz pur e alcohol) [facility] Utilities Answer Date Recorded In the past 12 months has [employer] electric, gas, oil, or water company threatened [...] often do you attend chur ch or adventist services? 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 [...] st Contact Info) Description 11/02/2024 8:15 AM DISPATCHER RELAY Office Visit [facility] [address] [place] [address] Dakota Fabian APRN, PLASTER TENDER #[address] [address] 11/26/2024 11:30 AM DISPATCHER RELAY Office Visit [facility] [address] [place] [address] Maggie Tolentino, [place] [address] [place] [address] documented as of this encounter Visit Diagnoses Not on filedocumented in this encounter Additional Health Concerns Infection Onset Date Last Indicated Resolved Time MRSA 03/30/2020 03/30/2020 Assessment Noted Time PHQ-9 Depression Total Score: 0 01/04/20 23 2:56 PM CDT documented as of this encounter Care Teams Switchboard Installer Relationship Specialty Start Date End Date Dakota Fabian APRN, PLASTER TENDER [address] [place] [id number] PCP - General Advanced Practice Nurse 04/27/24 documented as of this encounter
--- OUTSIDE RECORDS SUMMARY | 2024-10-20 04:25 | XMS_ITS | Encounter Summary ---
Author Organization [facility] Address [address] [place] [address] Phone Care Team Providers Care Bullet Slugs Inspector Name Role Phone Dakota Fabian APRN, HOME SERVICE DEMONSTRATOR Primary Care Pr ovider Encounter Details Date Type Department Care Team (Late st Contact Info) Description 05/18/2024 Telephone [facility] [place] [address] Davion Frank PAC #[address] [address] Social History Tobacco Use Types Packs/Day Years Used Date Smoking Tobacco: Never Smokeless Tobacco: Never Alcohol Use Standard Drinks/Week Comments No 0 (1 standard drink = 0.6 oz pur e alcohol) [facility] Utilities Answer Date Recorded In [...] week 03/16/2024 How often do you attend [facility] or jain services? More than 4 times per year 03/16/2024 Do you belong to any clubs o r organizations such as jain groups, unions, fraternal or athletic groups, or [...] Total Score - Questions 1-9 0 12/12 [facility] - Occupational Stress Questionnaire Answer Date [...] place to sleep or slept in a penitentiary (including now)? 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 Not [...] st Contact Info) Description 11/02/2024 8:15 AM CAD DESIGN ENGINEER Office Visit [facility] [place] [place] [address] Dakota Fabian, THOM, HOME SERVICE DEMONSTRATOR #[address] [address] 11/26/2024 11:30 AM CAD DESIGN ENGINEER Office Visit [facility] [address] [place] [address] Maggie Tolentino, PAC [address] [place] [address] documented as of this encounter Visit Diagnoses Not on filedocumented in this encounter Additional Health Concerns Infection Onset Date Last Indicated Resolved Time MRSA 03/30/2020 03/30/2020 Assessment Noted Time PHQ-9 Depression Total Score: 0 01/04/20 23 2:56 PM CDT documented as of this encounter Care Teams Bullet Slugs Inspector Relationship Specialty Start Date End Date Dakota Fabian APRN, HOME SERVICE DEMONSTRATOR #[address] [address] [address] PCP - General Advanced Practice Nurse 04/27/24 documented as of this encounter
--- OUTSIDE RECORDS SUMMARY | 2024-10-20 04:25 | XMS_ITS | Encounter Summary ---
Author Organization [facility] Address [address] [place] [address] Phone Care Team Providers Care Spaghetti Machine Operator Name Role Phone John Méndez MD Primary Care Provider [phone] Reason for Visit * Auth/Cert (Routine) Specialty Diagnoses / Procedures Referred By Contaliza t Referred To Contact Diagnoses SCREENING Procedures COLONOSCOPY Rachelle Hood MD [address] [place] [address] Phone: tel: fax: Referral ID Status Reason Start Date Expiration Date Visits Re quested Visits Authorized [id number] 1 1 Encounter Details Date Type Department Care Team (Late st Contact Info) Description 03/03/2024 10:40 AM CDT Ancillary Procedure 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 Not on file documented as of this encounter Plan of Treatment Upcoming Encounters Date Type Department Care Team (Late st Contact Info) Description 11/02/2024 8:15 AM INJECTION MAINTENANCE TECHNICIAN Office Visit [facility] [address] [place] [address] Dakota Fabian APRN, SOLE LEVELING MACHINE OPERATOR #[address] [address] 11/26/2024 11:30 AM INJECTION MAINTENANCE TECHNICIAN Office Visit [facility] [address] [place] [address] Maggie Tolentino, PAC [address] [place] [address] documented as of this encounter Procedures Procedure [...] documented as of this encounter Care Teams Spaghetti Machine Operator Relationship Specialty Start Date End Date John Méndez MD PCP - General Family Medicine 09/28/19 04/26/24 documented as of this encounter
--- OUTSIDE RECORDS SUMMARY | 2024-10-20 04:25 | XMS_ITS | Encounter Summary ---
Author Organization [employer] Care Team Providers Care Suction Worker Name Role Phone Dakota Fabian APRN, CARBON SETTER Primary Care Pr ovider Encounter Details Date Type Department Care Team (Latest Contact Info) Description 05/10/2024 Travel Social History Tobacco Use Types Packs/Day Years Used Date Smoking Tobacco: Never Smokeless Tobacco: Never Alcohol Use Standard Drinks/Week Comments No 0 (1 standard drink = 0.6 oz pur e alcohol) [facility] Utilities Answer Date Recorded In the past 12 months has [employer] electric, gas, oil, or water company threatened [...] Total Score - Questions 1-9 0 12/12 [facility] of Occupat ional Health - Occupational Stress [...] 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 Not on file documented as of this encounter Plan of Treatment Upcoming Encounters Date Type Department Care Team (Late st Contact Info) Description 11/02/2024 8:15 AM DENTAL CLAIMS PROCESSOR Office Visit [facility] [place] [address] Dakota Fabian APRN, CARBON SETTER #[address] [address] 11/26/2024 11:30 AM DENTAL CLAIMS PROCESSOR Office Visit [facility] [place] [place] [address] Maggie Tolentino PAC [address]2 [facility] [place] [address] documented as of this encounter Visit Diagnoses Not on filedocumented in this encounter Additional Health Concerns Infection Onset Date Last Indicated Resolved Time MRSA 03/30/2020 03/30/2020 Assessment Noted Time PHQ-9 Depression Total Score: 0 01/04/20 2:56 PM CDT documented as of this encounter Care Teams Suction Worker Relationship Specialty Start Date End Date Dakota Fabian, TOW TRUCK OPERATOR, CARBON SETTER #[address] [address] PCP - General Advanced Practice Nurse 04/27/24 documented as of this encounter
--- OUTSIDE RECORDS SUMMARY | 2024-10-20 04:25 | XMS_ITS | Encounter Summary ---
Author Organization [facility] Address [address] [place] [address] Phone Care Team Providers Care Leasing Representative Name Role Phone Dakota Fabian APRN, CNP Primary Care Pr ovider Reason for Visit * Reason Comments Flank Pain Encounter Details Date Type Department Care Team (Late st Contact Info) Description 07/20/2024 8:50 AM CDT - 07/20/2024 1:53 PM CDT Emergency [facility] Emergency [address] [place] [phone] Dalton Chapa MD [address] [place] [address] Flank pain Discharge Disposition: Discharged to home or Selfcare Social History Tobacco Use Types Packs/Day Years Used Date Smoking Tobacco: Never Smokeless Tobacco: Never Alcohol Use Standard Drinks/Week Comments No 0 (1 standard drink = 0.6 oz pur e alcohol) [facility] Utilities Answer Date Recorded In the past 12 months has [employer], gas, oil, or water company threatened to [...] often do you attend chur ch or episcopalian services? 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 AG: MAURI Report ID: [id number] Reading Location: [place] [address] Medical Decision Making 49-year-old with flank and [...] videos and all your education online visit, [email or web address].EPIS/[email or web address] or scan this QR code with your [...] told by your health care provider. Take rook-viq-apsshfg and prescription medicines only as told by [...] Reviewed: 2021-12-10 Elsevier Patient Education ? 2023 [employer] documented in this encounter Plan of Treatment Upcoming Encounters Date Type Department Care Team (Late st Contact Info) Description 11/02/2024 8:15 AM ORACLE FINANCIALS DEVELOPER Office Visit [facility] [address] [place] [address] Dakota Fabian, THOM, INDUSTRIAL TECH INSTRUCTOR #[address] [address] 11/26/2024 11:30 AM ORACLE FINANCIALS DEVELOPER Office Visit [facility] [address] [place] [address] Maggie Tolentino, PAC [address] [place] [address] documented as of this encounter Procedures Procedure [...] PM T: ??07/20/2024 12:52 PM Report ID: [id number] Reading Location: ??[id number] Procedure Note Jaret Lares MD - 07/20/2024 [...] Jaret Lares M.D. AG: MAURI Report ID: [id number] Reading Location: [id number] IMPRESSION: 1. No gross CT finding to explain the patient's symptoms. Dalton Chapa MD IMG CT ORDERABLES Serene l Result * Gold Top Tube (07/20/2024 9:42 AM CDT) Blood No Phlebotomy Charged / Unknown 07/20/2024 9:42 AM CDT 07/20/2024 9:50 AM CDT Dalton Chapa MD CHEMISTRY ORDERABLES F inal Result Performing Organization Address City/State/[facility] Co de Phone Number [facility] [address] [place] [address] * Blue Top Tube (07/20/2024 9:42 AM CDT) Blood No Phlebotomy Charged / Unknown 07/20/2024 9:42 AM CDT 07/20/2024 9:50 AM CDT Dalton Chapa MD HEMATOLOGY ORDERABLES Final Result Performing Organization Address City/State/[facility] Co de Phone Number [facility] [address] [place] [address] * CBC with Auto Differential (07/20/2024 9:42 AM CDT) WBC 6.66 4.00 - 12.00 10(3)/mcL 07/20/2024 9:59 AM CDT [facility] RBC 4.68 3.80 - 5.30 10(6)/mcL 07/20/2024 9:59 AM CDT [facility] HEMOGLOBIN (HGB) 13.7 12.0 - 15.8 g/dL 07/20/2024 9:59 AM CDT [facility] HEMATOCRIT (HCT) 42 36 - 47 % 07/20/20 24 9:59 AM CDT [facility] MCV 89.5 82.0 - 96.0 fL 07/20/2024 9:59 AM CDT [facility] MCH 29.3 26.0 - 34.0 pg 07/20/2024 9:59 AM CDT [facility] MCHC 32.7 31.0 - 36.0 g/dL 07/20/2024 9:59 AM CDT [facility] PLATELET COUNT 391 140 - 440 10(3)/mcL 07/20/2024 9:59 AM CDT [facility] RDW 14.3 11.8 - 15.5 % 07/20/2024 9:59 AM CDT [facility] MPV 10.0 9.7 - 12.4 fL 07/20/2024 9:59 AM CDT [facility] NEUTROPHILS 68.4 47.0 - 73.0 % 07/20/2024 9:59 AM CDT [facility] LYMPHOCYTES 22.7 18.0 - 42.0 % 07/20/2024 9:59 AM CDT [facility] MONOCYTES 5.4 4.0 - 12.0 % 07/20/2024 9:59 AM CDT [facility] EOSINOPHILS 2.3 0.0 - 5.0 % 07/20/2024 9:59 AM CDT [facility] BASOPHILS 0.9 0.0 - 1.0 % 07/20/2024 9:59 AM CDT [facility] ABSOLUTE NEUTROPHILS 4.56 1.60 - 7.70 10(3)/mcL 07/20/2024 9:59 AM CDT [facility] ABSOLUTE LYMPHOCYTES 1.51 1.30 - 3.20 10(3)/mcL 07/20/2024 9:59 AM CDT [facility] ABSOLUTE MONOCYTES 0.36 0.20 - 1.00 10(3)/[facility] 07/20/2024 9:59 AM CDT [facility] ABSOLUTE EOSINOPHIL 0.15 0.00 - 0.40 10(3)/mcL 07/20/2024 9:59 AM CDT [facility] ABSOLUTE BASOPHILS 0.06 0.00 - 0.10 10(3)/[facility] 07/20/2024 9:59 AM CDT [facility] Blood Venipuncture / Unknown 07/20/2024 9:42 AM CDT 07/20/2024 9:48 AM CDT us Dalton Chapa MD HEMATOLOGY ORDERABLES Final Result [facility] [address] [place] [address] * (ABNORMAL) CMP (07/20/2024 9:42 AM CDT) SODIUM 142 136 - 145 mmol/L 07/20/2024 10:35 AM CDT [facility] POTASSIUM 4.1 3.5 - 5.1 mmol/L 07/20/2024 10:35 AM CDT [facility] CHLORIDE 105 98 - 107 mmol/L 07/20/2024 10:35 AM CDT [facility] CO2, VENOUS 28 22 - 30 mmol/L 07/20/2024 10:35 AM CDT [facility] ANION GAP 13.1 <18.0 mmol/L 07/20/2024 10:35 AM CDT [facility] GLUCOSE 94 70 - 99 mg/dL 07/20/2024 10:35 AM CDT [facility] BUN 6 5 - 18 mg/dL 07/20/2024 10:35 AM CDT [facility] CREATININE, BLOOD 0.68 0.60 - 1.00 mg/dL 07/20/2024 10:35 AM CDT [facility] BUN/CREATININE RATIO 9(L) 12 - 20 ratio 07/20/2024 10:35 AM CDT [facility] TOTAL PROTEIN 7.2 6.3 - 8.2 g/dL 07/20/2024 10:35 AM CDT [facility] ALBUMIN 4.1 3.5 - 5.0 g/dL 07/20/2024 10:35 AM CDT [facility] A/G RATIO 1.3 1.0 - 2.2 07/20/2024 10:35 AM CDT [facility] CALCIUM 8.8 8.7 - 10.5 mg/dL 07/20/2024 10:35 AM CDT [facility] T BILI 0.5 0.2 - 1.2 mg/dL 07/20/2024 10:35 AM CDT [facility] SGOT (AST) 19 5 - 34 U/L 07/20/2024 10:35 AM CDT [facility] SGPT (ALT) 22 0 - 55 U/L 07/20/2024 10:35 AM CDT [facility] ALKALINE PHOSPHATASE 61 40 - 150 U/L 07/20/2024 10:35 AM CDT [facility] GFR, ESTIMATED >60 >=60 07/20/2024 10:35 AM T [facility] Comment: Creatinine Clearance is the preferred criteria for selecting drug dose adjustments in renally impaired patients. ??The GFR is provided as additional pertinent clinical information. GFR is reported in mL/min/1.73 sq m. Calculation based on the Chronic Kidney Disease Epidemiology Collaboration (CKD- EPI) equation refit without adjustment for race. GFR, EST. >60 >=60 024 10:35 AM CDT [facility] GFR, EST. NONAFRICAN >60 >=60 07/20/2024 10:35 AM CDT [facility] Blood Venipuncture / Unknown 07/20/2024 9:42 AM CDT 07/20/2024 9:48 AM CDT us Dalton Chapa MD CHEMISTRY ORDERABLES F inal Result [facility] [address] [place] [address] * (ABNORMAL) Urinalysis w/ Reflex (07/20/2024 9:01 AM CDT) SPECIFIC GRAVITY 1.015 1.003 - 1.030 07/20/2024 9:25 AM CDT [facility] URINE PH 8.0 5.0 - 9.0 07/20/2024 9:25 AM CDT [facility] WBC ESTERASE Negative Negative 07/20/2024 9:25 AM CDT [facility] NITRITE Negative Negative 07/20/2024 9:25 AM CDT [facility] PROTEIN, RANDOM URINE 15 mg/dL(A) Negative 07/20/2024 9:25 AM CDT [facility] URINE GLUCOSE, QUAL Negative Negative 07/20/2024 9:25 AM CDT [facility] URINE KETONES Negative Negative 07/20/2024 9:25 AM CDT [facility] UROBILINOGEN Normal Normal mg/dL 07/20/2024 9:25 AM CDT [facility] URINE BLOOD Negative Negative marjorie/ul 07/20/2024 9:25 AM CDT [facility] URINALYSIS COLOR Yellow 07/20/20 9:25 AM CDT [facility] URINALYSIS CLARITY Clear 07/20/2024 9:25 AM CDT [facility] Urine URINE SPECIMEN / Unknown Non-Phlebotomy Collection / Unknown 07/20/2024 9:01 AM CDT 07/20/2024 9:21 AM CDT us Dalton Chapa MD URINE ORDERABLES Final Result [facility] [address] [place] [address] documented in this encounter Visit Diagnoses Diagnosis [...] documented as of this encounter Care Teams Leasing Representative Relationship Specialty Start Date End Date Dakota Fabian APRN, MIGUEL ANGEL [address] [place] [address] PCP - General Advanced Practice Nurse 04/27/24 documented as of this encounter
--- OUTSIDE RECORDS SUMMARY | 2024-10-20 04:25 | XMS_ITS | Encounter Summary ---
Author Organization [employer] Care Team Providers Care Road Mechanic Name Role Phone Dakota Fabian APRN, TRAFFIC INCIDENT MANAGEMENT MANAGER Primary Care Pr ovider Encounter Details Date Type Department Care Team (Latest Contact Info) Description 09/11/2024 Travel Social History Tobacco Use Types Packs/Day Years Used Date Smoking Tobacco: Never Smokeless Tobacco: Never Alcohol Use Standard Drinks/Week Comments No 0 (1 standard drink = 0.6 oz pur e alcohol) [facility] Utilities Answer Date Recorded In the past 12 months has [employer] electric, gas, oil, or water company threatened [...] Total Score - Questions 1-9 0 12/12 [facility] of Occupat ional Health - Occupational Stress [...] place to sleep or slept in a fpc (including now)? 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 Not on file documented as of this encounter Plan of Treatment Upcoming Encounters Date Type Department Care Team (Late st Contact Info) Description 11/02/2024 8:15 AM EVAPORATOR OPERATOR MOLASSES Office Visit [facility] [address] [place] [address] Dakota Fabian APRN, TRAFFIC INCIDENT MANAGEMENT MANAGER [address] [address] 11/26/2024 11:30 AM EVAPORATOR OPERATOR MOLASSES Office Visit [facility] [address]2 [facility] [place] [address] Maggie Tolentino PAC [address] [place] [address] documented as of this encounter Visit Diagnoses Not on filedocumented in this encounter Additional Health Concerns Infection Onset Date Last Indicated Resolved Time MRSA 03/30/2020 03/30/2020 COVID - 19 09/11/2024 09/11/2024 09/11/2024 7:21 PM EVAPORATOR OPERATOR MOLASSES Assessment Noted Time PHQ-9 Depression Total Score: 0 01/04/20 2:56 PM CDT documented as of this encounter Care Teams Road Mechanic Relationship Specialty Start Date End Date Dakota Fabian, POTTERY MACHINE OPERATOR, TRAFFIC INCIDENT MANAGEMENT MANAGER #[address] [address] PCP - General Advanced Practice Nurse 04/27/24 documented as of this encounter
--- OUTSIDE RECORDS SUMMARY | 2024-10-20 04:25 | XMS_ITS | Encounter Summary ---
Author Organization [facility] Address [address] [place] [address] Phone Care Team Providers Care Pit Manager Name Role Phone Dakota Fabian APRN, CNP Primary Care Pr ovider Reason for Visit * Reason Onset Date Comments Cough 08/17/2024 Encounter Details Date Type Department Care Team (Late st Contact Info) Description 08/17/2024 Telephone [facility] [address] [place] [address] Dakota Fabian APRN, CUSTOMER ACCOUNT COORDINATOR [address] [address] Cough Social History Tobacco Use Types Packs/Day Years Used Date Smoking Tobacco: Never Smokeless Tobacco: Never Alcohol Use Standard Drinks/Week Comments No 0 (1 standard drink = 0.6 oz pur e alcohol) [facility] Utilities Answer Date Recorded In the past 12 months has [employer] electric, gas, oil, or water company threatened [...] often do you attend chur ch or methodist services? More than 4 times per year 03/16/2024 Do you belong to any clubs o r organizations such as mandaeism groups, unions, fraternal or athletic groups, or [...] Score - Questions 1-9 0 12/12 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 Patient oh ok. GE ADVISOR * Telephone Encounter - Mireya Persaud APRN, CUSTOMER ACCOUNT COORDINATOR - 08/17/2024 1:33 PM CHANGE ADVISOR Order placed for benzonatate for cough symptoms. Encourage increased hydration and follow up with OV for any new, worsening, persistent symptoms GE ADVISOR * Telephone Encounter - Araceli Radford RN - 08/17/2024 7:35 AM CST S: Cough B:Patient calling and states she went to [facility] walk in clinic in [place] and diagnosed with Strep throat on 08/14/24. Started taking z-pack, sore throat improving. Cough continues. Patient would like to know if something can be called in for cough. A: Denies new/worsening cough. Sleeping with head elevated and humidifier, taking z-pack, Singulair, and Claritin. Cough frequent, keeping up at night. Denies shortness of breath, difficulty breathing, chest pain. R: Please advise. GE ADVISOR documented in this encounter Plan of Treatment Upcoming Encounters Date Type Department Care Team (Late st Contact Info) Description 11/02/2024 8:15 AM CHANGE ADVISOR Office Visit [facility] [address] [place] [address] Dakota Fabian APRN, CUSTOMER ACCOUNT COORDINATOR #[address] [address] 11/26/2024 11:30 AM CHANGE ADVISOR Office Visit [facility] [address] [place] [address] Maggie Tolentino, MILTON [address] [place] [address] documented as of this encounter Visit Diagnoses Not on filedocumented in this encounter Additional Health Concerns Infection Onset Date Last Indicated Resolved Time MRSA 03/30/2020 03/30/2020 Assessment Noted Time PHQ-9 Depression Total Score: 0 01/04/20 23 2:56 PM CDT documented as of this encounter Care Teams Pit Manager Relationship Specialty Start Date End Date Dakota Fabian APRN, CUSTOMER ACCOUNT COORDINATOR #[address] [address] PCP - General Advanced Practice Nurse 04/27/24 documented as of this encounter
--- OUTSIDE RECORDS SUMMARY | 2024-10-20 04:25 | XMS_ITS | Encounter Summary ---
Author Organization [facility] Address [address] [place] [address] Phone Care Team Providers Care Outreach Team Member Name Role Phone Dakota Fabian APRN, CNP Primary Care Pr ovider Reason for Visit * Reason Comments Medication Refill Encounter Details Date Type Department Care Team (Late st Contact Info) Description 08/14/2024 Refill [facility] Medical Group - Family Medicine [facility] [address] [place] [phone] Dakota Fabian APRN, MIGUEL ANGEL [address] [address] Medication Refill Social History Tobacco Use Types Packs/Day Years Used Date Smoking Tobacco: Never Smokeless Tobacco: Never Alcohol Use Standard Drinks/Week Comments No 0 (1 standard drink = 0.6 oz pur e alcohol) [facility] Utilities Answer Date Recorded In the past 12 months has [employer] electric, gas, oil, or water company threatened [...] often do you attend chur ch or evangelical services? 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 [...] Office Visit Dakota Fabian APRN, MIGUEL ANGEL [facility] [place] Showing recent visits within past 365 days and meeting all other requirements Future Appointments Date Type Provider Dept 09/06/24 Appointment Maggie Tolentino PAC [facility] 11/02/24 Appointment Dakota Fabian APRN, CNP [facility] Showing future appointments within next 90 days [...] st Contact Info) Description 11/02/2024 8:15 AM LEAD SOLUTIONS ARCHITECT Office Visit [facility] [address] [place] [address] Dakota Fabian APRN, MIGUEL ANGEL [address] [place] [address] 11/26/2024 11:30 AM LEAD SOLUTIONS ARCHITECT Office Visit [facility] [address] [place] [address] Maggie Tolentino, PAC [address]2 [facility] [place] [address] documented as of this encounter Visit Diagnoses [...] Date Dakota Fabian APRN, MIGUEL ANGEL [address] [place] [address] PCP - General Advanced Practice Nurse 04/27/24 documented as of this encounter
--- OUTSIDE RECORDS SUMMARY | 2024-10-20 04:25 | XMS_ITS | Encounter Summary ---
Author Organization [facility] Address [address] [place] [address] Phone Care Team Providers Care Manager Transition Name Role Phone Dakota Fabian APRN, CNP Primary Care Pr ovider Reason for Visit * Reason Onset Date Comments Medication Refill 05/07/2024 Encounter Details Date Type Department Care Team (Late st Contact Info) Description 05/07/2024 Refill [facility] Medical Group - Family Medicine [facility] [address]2 [place] [phone] Dakota Fabian APRN, MIGUEL ANGEL [address] [address] Medication Refill Social History Tobacco Use Types Packs/Day Years Used Date Smoking Tobacco: Never Smokeless Tobacco: Never Alcohol Use Standard Drinks/Week Comments No 0 (1 standard drink = 0.6 oz pur e alcohol) [facility] Utilities Answer Date Recorded In the past 12 months has [employer] electric, gas, oil, or water company threatened [...] often do you attend chur ch or holiness services? 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 Not on [...] Dept 04/27/24 Office Visit Dakota Fabian, THOM, CONFIGURATION MANAGEMENT CONSULTANT [facility] [place] [place] 03/16/24 Office Visit Dakota Fabian APRN, MIGUEL ANGEL [facility] Showing recent visits within past 365 days [...] st Contact Info) Description 11/02/2024 8:15 AM POTATO PICKER Office Visit [facility] [address] [place] [address] Dakota Fabian APRN, CONFIGURATION MANAGEMENT CONSULTANT #[address] [address] 11/26/2024 11:30 AM POTATO PICKER Office Visit [facility] #2 [facility] [address] Maggie Tolentino, MILTON [address] [place] [address] documented as of this encounter Visit Diagnoses Diagnosis Degenerative lumbar disc Degeneration of lumbar or lumbosacral intervertebral disc documented in this encounter Additional Health Concerns Infection Onset Date Last Indicated Resolved Time MRSA 03/30/2020 03/30/2020 Assessment Noted Time PHQ-9 Depression Total Score: 0 01/04/20 23 2:56 PM CDT documented as of this encounter Care Teams Manager Transition Relationship Specialty Start Date End Date Dakota Fabian APRN, MIGUEL ANGEL [address] [address] PCP - General Advanced Practice Nurse 04/27/24 documented as of this encounter
--- OUTSIDE RECORDS SUMMARY | 2024-10-20 04:25 | XMS_ITS | Encounter Summary ---
Author Organization [facility] Address [address] [place] [address] Phone Care Team Providers Care Electrical Products Sales Engineer Name Role Phone Dakota Fabian APRN, CNP Primary Care Pr ovider Reason for Visit * Reason Comments Medication Refill Encounter Details Date Type Department Care Team (Late st Contact Info) Description 06/15/2024 Refill [facility] Medical Group - Family Medicine [facility] #2 [place] [phone] Dakota Fabian APRN, MIGUEL ANGEL [address] [address] Medication Refill Social History Tobacco Use Types Packs/Day Years Used Date Smoking Tobacco: Never Smokeless Tobacco: Never Alcohol Use Standard Drinks/Week Comments No 0 (1 standard drink = 0.6 oz pur e alcohol) [facility] Utilities Answer Date Recorded In the past 12 months has [employer] electric, gas, oil, or water company threatened [...] any clubs o r organizations such as protestant groups, unions, fraternal or athletic groups, or [...] Total Score - Questions 1-9 0 12/12 [facility] of Occupat ional [facility] - Occupational Stress Questionnaire Answer [...] 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 [...] Visit Dakota Fabian APRN, MIGUEL ANGEL [facility] [place] Showing recent visits within past 365 days and meeting all other requirements Future Appointments Date Type Provider Dept 09/06/24 Appointment Maggie Tolentino, MILTON [facility] Showing future appointments within next 90 days and meeting all other requirements documented in this encounter Plan of Treatment Upcoming Encounters Date Type Department Care Team (Late st Contact Info) Description 11/02/2024 8:15 AM GAS TORCH SOLDERER Office Visit [facility] [address]2 [facility] [place] [address] Dakota Fabian APRN, MACHINE TECH #[address] [address] 11/26/2024 11:30 AM GAS TORCH SOLDERER Office Visit [facility] [address] [facility] [place] [address] Maggie Tolentino, PAC [address] [place] [address] documented as of this encounter Visit Diagnoses Diagnosis Acute UTI Urinary tract infection, site not specified documented in this encounter Additional Health Concerns Infection Onset Date Last Indicated Resolved Time MRSA 03/30/2020 03/30/2020 Assessment Noted Time PHQ-9 Depression Total Score: 0 01/04/20 23 2:56 PM CDT documented as of this encounter Care Teams Electrical Products Sales Engineer Relationship Specialty Start Date End Date Dakota Fabian APRN, MACHINE TECH #[address] [place] [address] PCP - General Advanced Practice Nurse 04/27/24 documented as of this encounter
--- OUTSIDE RECORDS SUMMARY | 2024-10-20 04:25 | XMS_ITS | Encounter Summary ---
Author Organization [facility] Address [address] [place] [address] Phone Care Team Providers Care Obstetrics And Gynecology Professor Name Role Phone Dakota Fabian APRN, GROUNDS AND NURSERY SPECIALIST Primary Care Pr ovider Reason for Visit * Reason Onset Date Comments Skin Problem 06/04/2024 Encounter Details Date Type Department Care Team (Late st Contact Info) Description 06/04/2024 Nurse Triage [facility] [address] [place] [address] Dakota Fabian APRN, GROUNDS AND NURSERY SPECIALIST #[address] [address] Skin Problem Social History Tobacco Use Types Packs/Day Years Used Date Smoking Tobacco: Never Smokeless Tobacco: Never Alcohol Use Standard Drinks/Week Comments No 0 (1 standard drink = 0.6 oz pur e alcohol) [facility] Utilities Answer Date Recorded In the past 12 months has [employer] electric, gas, oil, or water company threatened [...] often do you attend chur ch or oriental orthodox services? More than 4 times per year 03/16/2024 Do you belong to any clubs o r organizations such as adventist groups, unions, fraternal or athletic groups, or [...] Total Score - Questions 1-9 0 12/12 [facility] of Occupat ional [facility] - Occupational Stress Questionnaire Answer [...] place to sleep or slept in a longterm (including now)? 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 Discussed utilizing [employer] to: Melinda states she does not use [employer]. Offered to reset password but she declines [...] st Contact Info) Description 11/02/2024 8:15 AM COTTON BALL MACHINE TENDER Office Visit [facility] [address] [place] [address] Dakota Fabian APRN, GROUNDS AND NURSERY SPECIALIST #[address] [address] 11/26/2024 11:30 AM COTTON BALL MACHINE TENDER Office Visit [facility] [address] [place] [address] Maggie Tolentino, PAC [address] [place] [address] documented as of this encounter Visit Diagnoses Not on filedocumented in this encounter Additional Health Concerns Infection Onset Date Last Indicated Resolved Time MRSA 03/30/2020 03/30/2020 Assessment Noted Time PHQ-9 Depression Total Score: 0 01/04/20 23 2:56 PM CDT documented as of this encounter Care Teams Obstetrics And Gynecology Professor Relationship Specialty Start Date End Date Dakota Fabian APRN, GROUNDS AND NURSERY SPECIALIST #[address] [address] PCP - General Advanced Practice Nurse 04/27/24 documented as of this encounter
--- OUTSIDE RECORDS SUMMARY | 2024-10-20 04:25 | XMS_ITS | Encounter Summary ---
Author Organization [facility] Address [address] [place] [address] Phone Care Team Providers Care Community Recreation Coordinator Name Role Phone Dakota Fabian APRN, ACCOUNT RESOLUTION EXPERT Primary Care Pr ovider Reason for Visit * Reason Comments Sore Throat Chills Encounter Details Date Type Department Care Team (Late st Contact Info) Description 09/11/2024 5:42 PM SENIOR CREDIT OFFICER - 09/11/2024 7:41 PM SENIOR CREDIT OFFICER Emergency [facility] Emergency [address] [place] [phone] Ashly Sullivan, DIVINITY PROFESSOR, ACCOUNT RESOLUTION EXPERT [address] [place] [address] Viral illness Discharge Disposition: Discharged to home or Selfcare Social History Tobacco Use Types Packs/Day Years Used Date Smoking Tobacco: Never Smokeless Tobacco: Never Alcohol Use Standard Drinks/Week Comments No 0 (1 standard drink = 0.6 oz pur e alcohol) [facility] Utilities Answer Date Recorded In the past 12 months has [employer], gas, oil, or water [employer] threatened to shut off services in your [...] How often do you attend chur or judaism services? 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 file Not on file documented as of this encounter Last Filed Vital Signs Vital Sign Reading Time Taken Comments Blood Pressure 139/93 09/11/2024 5:50 PM SENIOR CREDIT OFFICER Pulse 96 09/11/2024 7:30 PM SENIOR CREDIT OFFICER Temperature 36.1 ??C (96.9 ??F) 09/11/2024 5:50 PM CS T Respiratory Rate 17 09/11/2024 5:50 PM SENIOR CREDIT OFFICER Oxygen Saturation 97% 09/11/2024 7:30 PM SENIOR CREDIT OFFICER Inhaled Oxygen Concentration - - Weight 90.7 kg (200 lb) 09/11/2024 5:50 PM SENIOR CREDIT OFFICER Height 157.5 cm (5' 2 ) 09/11/2024 5:50 PM SENIOR CREDIT OFFICER Body Mass Index 36.58 09/11/2024 5:50 PM SENIOR CREDIT OFFICER documented in this encounter Discharge Instructions * Discharge Instructions* Ashly Sullivan, DIVINITY PROFESSOR, ACCOUNT RESOLUTION EXPERT - 09/11/2024 7:36 PM SENIOR CREDIT OFFICER Rest and push fluids. Can take over the counter medications as directed for symptom relief. Return to ED with difficulty breathing or shortness of breath. Please follow-up with primary care physician. OR CREDIT OFFICER documented in this encounter Medications at Time [...] mode with self as responsible green party. OR CREDIT OFFICER * Kathya Bonilla RN - 09/11/2024 7:29 PM CST Pt resting on stretcher with no needs indicated at this time. Call light in reach. 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 AM: AM Report ID: [id number] Reading Location: [place] [address] Labs Reviewed RSV,SARS-COV-2,INFLUENZA A&B BY PCR - [...] providers and patients are available at: https://www.fda. gov/medical-devices/axzldjiap-kiojwmlcih-bfaqneu-devices/amfqvrksr-fyy-wwjztfuqv tiagustin GROUP A STREP BY PCR - [...] Del Toro MD at 09/11/2024 10:37 PM SENIOR CREDIT OFFICER OR CREDIT OFFICER OR CREDIT OFFICER * Jeana Borden RN - 09/11/2024 5:52 PM CST Patient reports onset of chills, runny nose, body aches and sore throat of four days ago. Has had recent contact with someone with flu A and strep. Afebrile in triage. OR CREDIT OFFICER documented in this encounter Miscellaneous Notes * PatientPass Patient Instructions - Ashly Sullivan APRN, MIGUEL ANGEL - 09/11/2024 7:36 PM CST Images from the original note were not included. Patient Education Table of Contents Viral Illness, Adult To view videos and all your education online visit, [email or web address] or scan this QR code with your [...] Medicines to treat symptoms. These can include maix-rqg-vlyyckz medicine for pain and fever, medicines for cough or congestion, and medicines for diarrhea. Antiviral medicines. These medicines are available only for certain types of viruses. Some viral illnesses can be prevented with vaccinations. A common example is the flu shot. Follow these instructions at home: Medicines Take udiy-poi-rxowhcl and prescription medicines only as told by [...] and water are not available, use hand magnetic tape composer operator. Avoid touching your nose, eyes, and mouth, [...] 2017-02-07 Document Updated: 2023-10-15 Document Reviewed: 2023-07-30 [employer] Patient Education ? 2023 [employer] OR CREDIT OFFICER documented in this encounter Plan of Treatment Upcoming Encounters Date Type Department Care Team (Late st Contact Info) Description 11/02/2024 8:15 AM SENIOR CREDIT OFFICER Office Visit [facility] - Family Medicine [facility] [address] [place] [phone] Dakota Fabian APRN, MIGUEL ANGEL #[address] [address] 11/26/2024 11:30 AM SENIOR CREDIT OFFICER Office Visit [facility] [address] [place] [address] Maggie Tolentino, PAC [address] [place] [address] documented as of this encounter Procedures Procedure Name Priority Date/Time Associated Diagnosis Comments XR CHEST 2 VIEWS STAT 09/11/2024 6:28 PM SENIOR CREDIT OFFICER GROUP A STREP BY PCR STAT 09/11/2024 6:15 PM SENIOR CREDIT OFFICER RSV,SARS-COV-2,INFL UENZA A&B BY PCR STAT 09/11/2024 6:15 PM SENIOR CREDIT OFFICER documented in this encounter Results * XR CHEST 2 VIEWS (09/11/2024 6:28 PM SENIOR CREDIT OFFICER) Anatomical Region Laterality Modality Chest N/A Digital Radiogra phy 09/11/2024 7:20 PM SENIOR CREDIT OFFICER Impressions 09/11/2024 7:23 PM SENIOR CREDIT OFFICER IMPRESSION: No acute cardiopulmonary abnormality. Narrative 09/11/2024 7:23 PM SENIOR CREDIT OFFICER EXAM DESCRIPTION: XR CHEST 2 VIEWS REASON [...] PM T: ??09/11/2024 7:20 PM Report ID: [id number] Reading Location: ??[id number] Procedure Note Nick Godinez MD - 09/11/2024 [...] Nick Godinez M.D. AM: AM Report ID: [id number] Reading Location: [place] [address] IMPRESSION: No acute cardiopulmonary abnormality. Ashly Sullivan APRN, MIGUEL ANGEL IMG DIAGNOSTIC ORDERA BLES Final Result * GROUP A STREP BY PCR (09/11/2024 6:15 PM SENIOR CREDIT OFFICER) Pathologist [facility] GROUP A STREP BY PCR NOT DETECTED NOT DETECTED 09/11/2024 7:08 PM SENIOR CREDIT OFFICER [facility] Swab SPECIMEN FROM THROAT / Unknown Non-Phlebotomy Collection / Unknown 09/11/2024 6:15 PM SENIOR CREDIT OFFICER 09/11/2024 6:40 PM SENIOR CREDIT OFFICER Ashly Sullivan APRN, CNP MICROBIOLOGY - GENERA L ORDERABLES Final Result [facility] [address] [place] [address] * RSV,SARS-COV-2,INFLUENZA A&B BY PCR (09/11/2024 6:15 PM SENIOR CREDIT OFFICER) FLU A Negative Negative, Error 09/11/2024 7:21 PM SENIOR CREDIT OFFICER [facility] FLU B Negative Negative 09/11/2024 7:21 PM SENIOR CREDIT OFFICER [facility] RESP SYNC VIRUS Negative Negative 7:21 PM SENIOR CREDIT OFFICER [facility] SARSCOV2 NOT DETECTED (Reference Range for this test is Not Detected) 09/11/2024 7:21 PM SENIOR CREDIT OFFICER [facility] Comment:This test was perfor med by a Reverse Supervisor [employer] PCR Method. Swab NASOPHARYNGEAL SWAB / Unknown Non-Phlebotomy Collection / Unknown 09/11/2024 6:15 PM SENIOR CREDIT OFFICER 09/11/2024 6:40 PM SENIOR CREDIT OFFICER Narrative [facility] - 09/11/2024 7:21 PM SENIOR CREDIT OFFICER This test has not been FDA cleared or approved; the test has been authorized by FDA under an Emergency Use Authorization (EUA) for use by laboratories certified under the CLIA that meet the requirements to perform moderate, high or waived complexity tests. Authorized Fact Sheets about this test for providers and patients are available at: https://www.fda.gov/medical-devices/cmebslqcb-miiwjfnjur-invzyhl-devices/emergen -us e-authorizations us Ashly Sullivan APRN, ACCOUNT RESOLUTION EXPERT MICROBIOLOGY - GENERA L ORDERABLES Final Result [facility] [address] [place] [address] documented in this encounter Visit Diagnoses Diagnosis Viral illness- Primary Unspecified viral infection, in conditions classified elsewhere and of unspecified site documented in this encounter Additional Health Concerns Infection Onset Date Last Indicated Resolved Time MRSA 03/30/2020 03/30/2020 COVID - 19 09/11/2024 09/11/2024 09/11/2024 7:2 1 PM SENIOR CREDIT OFFICER Assessment Noted Time PHQ-9 Depression Total Score: 0 01/04/20 23 2:56 PM CDT documented as of this encounter Care Teams Community Recreation Coordinator Relationship Specialty Start Date End Date Dakota Fabian APRN, ACCOUNT RESOLUTION EXPERT [address] [address] [address] PCP - General Advanced Practice Nurse 04/27/24 documented as of this encounter
--- OUTSIDE RECORDS SUMMARY | 2024-10-20 04:25 | XMS_ITS | Encounter Summary ---
Author Organization [facility] Address [address] [place] [address] Phone Care Team Providers Care Staff Electronic Warfare Officer Name Role Phone Dakota Fabian APRN, MIGUEL ANGEL Primary Care Pr ovider Reason for Visit * Reason Onset Date Comments Results 06/07/2024 Encounter Details Date Type Department Care Team (Late st Contact Info) Description 06/07/2024 Telephone [facility] - [facility] Medicine [facility] [address] [place] [address] Maggie Tolentino, [facility] [address] [place] [address] Results Social History Tobacco Use Types Packs/Day Years Used Date Smoking Tobacco: Never Smokeless Tobacco: Never Alcohol Use Standard Drinks/Week Comments No 0 (1 standard drink = 0.6 oz pur e alcohol) [facility] Utilities Answer Date Recorded In the past 12 months has [employer] electric, gas, oil, or water company threatened [...] [facility] of Occupat ional 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 [...] st Contact Info) Description 11/02/2024 8:15 AM SUPERVISOR BEATER ROOM Office Visit [facility] - Family [facility] #[address] [place] [address] Dakota Fabian APRN, DIRECTOR OF MARKET RESEARCH #[address] [address] 11/26/2024 11:30 AM SUPERVISOR BEATER ROOM Office Visit [facility] #[address] [place] [address] Maggie Tolentino, PAC [address] [place] [address] documented as of this encounter Visit Diagnoses Not on filedocumented in this encounter Additional Health Concerns Infection Onset Date Last Indicated Resolved Time MRSA 03/30/2020 03/30/2020 Assessment Noted Time PHQ-9 Depression Total Score: 0 01/04/20 23 2:56 PM CDT documented as of this encounter Care Teams Staff Electronic Warfare Officer Relationship Specialty Start Date End Date Dakota Fabian APRN, DIRECTOR OF MARKET RESEARCH #[address] [address] PCP - General Advanced Practice Nurse 04/27/24 documented as of this encounter
--- OUTSIDE RECORDS SUMMARY | 2024-10-20 04:26 | XMS_ITS | Encounter Summary ---
Author Organization [facility] Address [address] 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 Not [...] Dept 02/20/23 Office Visit John Méndez MD [facility] 01/03/23 Office Visit Maggie Tolentino PAC [facility] Showing recent visits within past 182 days [...] st Contact Info) Description 11/02/2024 8:15 AM COMBINE OPERATOR Office Visit [facility] [address] [place] [address] Dakota Fabian, CLAY ROASTER, WEIGHT AND TEST BAR CLERK #[address] [address] 11/26/2024 11:30 AM COMBINE OPERATOR Office Visit [facility] [address]2 [place] [address] Maggie Tolentino, MILTON [address] [place] [address] documented as of this encounter Visit Diagnoses Not on filedocumented in this encounter Additional Health Concerns Infection Onset Date Last Indicated Resolved Time MRSA 03/30/2020 03/30/2020 Assessment Noted Time PHQ-9 Depression Total Score: 0 01/04/20 23 2:56 PM CDT documented as of this encounter Care Teams Food Service Utility Worker Relationship Specialty Start Date End Date John Méndez MD PCP - General Family Medicine 09/28/19 04/26/24 documented as of this encounter
--- OUTSIDE RECORDS SUMMARY | 2024-10-20 04:26 | XMS_ITS | Encounter Summary ---
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 [...] st Contact Info) Description 11/02/2024 8:15 AM CLOSER ON Office Visit [facility] Medical Group - Family [facility] [address]2 [place] [address] Dakota Fabian, THOM, INTERIOR DESIGN COORDINATOR #[address] [address] 11/26/2024 11:30 AM CLOSER ON Office Visit [facility] - [facility] #2 [place] [address] Maggie Tolentino, PAC [address] [place] [address] documented as of this encounter Visit Diagnoses Not on filedocumented in this encounter Additional Health Concerns Infection Onset Date Last Indicated Resolved Time MRSA 03/30/2020 03/30/2020 Assessment Noted Time PHQ-9 Depression Total Score: 0 01/04/20 23 2:56 PM CDT documented as of this encounter Care Teams Senior Ui Software Engineer Relationship Specialty Start Date End Date John Méndez MD PCP - General Family Medicine 09/28/19 04/26/24 documented as of this encounter
--- OUTSIDE RECORDS SUMMARY | 2024-10-20 04:26 | XMS_ITS | Encounter Summary ---
Author Organization [facility] Address [address] 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 Not on file documented as of this encounter Last Filed Vital Signs Vital Sign Reading Time Taken Comments Blood Pressure 173/105 08/29/2023 8:15 AM SUBSTATION OPERATOR HELPER Pulse 74 08/29/2023 8:15 AM SUBSTATION OPERATOR HELPER Temperature 37.4 ??C (99.3 ??F) 08/29/2023 7:49 AM CS T Respiratory Rate 18 08/29/2023 7:49 AM SUBSTATION OPERATOR HELPER Oxygen Saturation 100% 08/29/2023 8:15 AM SUBSTATION OPERATOR HELPER Inhaled Oxygen Concentration - - Weight 107.5 kg (236 lb 15.9 oz) 08/29/2023 7:49 AM SUBSTATION OPERATOR HELPER Height 158.8 cm (5' 2.5 ) 08/29/2023 7:49 AM SUBSTATION OPERATOR HELPER Body Mass Index 42.66 08/29/2023 7:49 AM SUBSTATION OPERATOR HELPER documented in this encounter Discharge Instructions * Discharge Instructions* Lauri Anrdews MD - 08/29/2023 8:27 AM SUBSTATION OPERATOR HELPER Take the Ultram as needed for pain. You can also take otsr-kct-vvqcswu pain relievers such as Tylenol or ibuprofen. Wear the Venkatesh wrap as needed for added support until the pain improves. TATION OPERATOR HELPER * Attachments The following attachments cannot be sent through Care Everywhere. * Contusion Fypz-cw-Puyz (Welsh) documented in this encounter Medications at Time [...] of this encounter ED Notes * Homa Hairston RN - 08/29/2023 8:37 AM CST Patient discharged. Discharge instructions and patient educational material reviewed with patient; questions and concerns addressed; patient verbalizes understanding, using teach back. Patient was given q prescription. Patient was informed no drinking alcohol, driving or operating heavy machinery while taking narcotics or muscle relaxants. Patient discharged per ambulatory mode with self as responsible libertarian. TATION OPERATOR HELPER * Homa Hairston RN - 08/29/2023 8:20 AM CST Pt medicated per provider orders. Pt educated on intended effects and side effects of medication and verbalized understanding, able to provide teach back of education. TATION OPERATOR HELPER * Homa Hairston RN - 08/29/2023 8:17 AM CST Xray at bedside. TATION OPERATOR HELPER * Lauri Andrews MD - 08/29/2023 8:07 [...] grade Occupational History ??? 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 Smoking status: Never [...] left knee, initial encounter Acute Disposition: Discharge TATION OPERATOR HELPER * Homa Hairston RN - 08/29/2023 8:[address] Andrews ERP at bedside to evaluate. Ice provided to patient for knee per request. TATION OPERATOR HELPER * Sylvia Gaffney RN - 08/29/2023 7:52 AM CST Pt to ed 6 with c/o pain to left lateral aspect knee after bumping it on a trailer hitch last pm. No swelling, bruising, or deformity present. PMS intact. Ice pack given. TATION OPERATOR HELPER documented in this encounter Plan of Treatment Upcoming Encounters Date Type Department Care Team (Late st Contact Info) Description 11/02/2024 8:15 AM SUBSTATION OPERATOR HELPER Office Visit [facility] #2 [place] [address] Dakota Fabian APRN, DIRECT CARE COUNSELOR #[address] [address] 11/26/2024 11:30 AM SUBSTATION OPERATOR HELPER Office Visit [facility] #2 [place] [address] Maggie Tolentino, PAC [address] [place] [address] documented as of this encounter Procedures Procedure Name Priority Date/Time Associated Diagnosis Comments XR KNEE 1 OR 2 VIEWS LEFT STAT 08/29/2023 8:17 AM SUBSTATION OPERATOR HELPER documented in this encounter Results * XR KNEE 1 OR 2 VIEWS LEFT (08/29/2023 8:17 AM SUBSTATION OPERATOR HELPER) Anatomical Region Laterality Modality LOWER EXTREMITY, knee Left Digital Ra diography 08/29/2023 8:27 AM SUBSTATION OPERATOR HELPER Impressions 08/29/2023 8:29 AM SUBSTATION OPERATOR HELPER IMPRESSION: No acute osseous abnormality. Narrative 08/29/2023 8:29 AM SUBSTATION OPERATOR HELPER EXAM DESCRIPTION: XR KNEE 1 OR 2 [...] AM T: ??08/29/2023 8:27 AM Report ID: [id number] Reading Location: ??[id number] Procedure Note Jackson Barrera MD - 08/29/2023 [...] Jackson Barrera M.D. JA: MARISA Report ID: [id number] Reading Location: [id number] IMPRESSION: No acute osseous abnormality. Lauri Andrews MD [facility] DIAG[facility] ORDERABLES Final Result documented in this encounter Visit Diagnoses Diagnosis Contusion of left knee, initial encounter- Primary documented in this encounter Administered Medications Inactive Administered Medications - up to 3 most recent administrations Medication Order MAR Action Action Date Dose Rate Site traMADol (ULTRAM) tablet 50 mg 50 mg, Oral, ONCE, 1 dose, On Fri08/29/23 at 0830 Given 08/29/2023 8:19 AM SUBSTATION OPERATOR HELPER 50 mg documented in this encounter Active and Recently Administered Medications Times are shown in SUBSTATION OPERATOR HELPER. Scheduled Medication Order 08/27/2023 08/28/2023 08/29/2023 traMADol [...] documented as of this encounter Care Teams Drive Tester Relationship Specialty Start Date End Date John Méndez MD PCP - General Family Medicine 09/28/19 04/26/24 documented as of this encounter
--- OUTSIDE RECORDS SUMMARY | 2024-10-20 04:26 | XMS_ITS | Encounter Summary ---
Author Organization [facility] Address [address] 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 informed patient no script given without an appointment. Patient states it's ok, it's better now. NSED STAFF MFT * Telephone Encounter - John Méndez MD - 10/18/2022 6:28 PM CST No scripts without being seen. I wish that these pts could be called and told this and not sent to me directly. We are not calling in prescriptions. I am not even there. NSED STAFF MFT * Telephone Encounter - Ragini Vora RN - 10/16/2022 10:04 AM LICENSED STAFF MFT Reason for Disposition ??? White patches that stick to tongue or inner cheek, which can be wiped off Protocols used: MOUTH [id number] SITUATION: Patient calling in requesting a prescription [...] and reviewed all triage information with caller. NSED STAFF MFT documented in this encounter Plan of Treatment Upcoming Encounters Date Type Department Care Team (Late st Contact Info) Description 11/02/2024 8:15 AM LICENSED STAFF MFT Office Visit [facility] [address] [place] [address] Dakota Fabian APRN, ATTENDANT CAMPGROUND #[address] [address] 11/26/2024 11:30 AM LICENSED STAFF MFT Office Visit [facility] [address] [place] [address] Maggie Tolentino, PAC [address] [place] [address] documented as of this encounter Visit Diagnoses Not on filedocumented in this encounter Additional Health Concerns Infection Onset Date Last Indicated Resolved Time MRSA 03/30/2020 03/30/2020 Assessment Noted Time PHQ-9 Depression Total Score: 0 12/15/19 21 8:53 AM LICENSED STAFF MFT documented as of this encounter Care Teams Cullet Crusher And Washer Relationship Specialty Start Date End Date John Méndez MD PCP - General Family Medicine 09/28/19 04/26/24 documented as of this encounter
--- OUTSIDE RECORDS SUMMARY | 2024-10-20 04:26 | XMS_ITS | Encounter Summary ---
Author Organization [facility] Address [address] 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 Not on file Not on file documented as of this encounter Miscellaneous Notes * Telephone Encounter - Cathy Cedillo RN - 02/08/2023 9:06 AM CDT Opened in error See 02-04-23 encounter documented in this encounter Plan of Treatment Upcoming Encounters Date Type Department Care Team (Late st Contact Info) Description 11/02/2024 8:15 AM FIRESTOP/CONTAINMENT WORKER Office Visit [facility] #2 [place] [address] Dakota Fabian, ETL INFORMATICA DEVELOPER, INSTRUCTIONAL RESOURCE TEACHER #[address] [address] 11/26/2024 11:30 AM FIRESTOP/CONTAINMENT WORKER Office Visit [facility] [address]2 [facility] [address] Maggie Tolentino, PAC [address] [place] [address] documented as of this encounter Visit Diagnoses Not on filedocumented in this encounter Additional Health Concerns Infection Onset Date Last Indicated Resolved Time MRSA 03/30/2020 03/30/2020 Assessment Noted Time PHQ-9 Depression Total Score: 0 01/04/20 23 2:56 PM CDT documented as of this encounter Care Teams Mechanical Applications Engineer Relationship Specialty Start Date End Date John Méndez MD PCP - General Family Medicine 09/28/19 04/26/24 documented as of this encounter
--- OUTSIDE RECORDS SUMMARY | 2024-10-20 04:26 | XMS_ITS | Encounter Summary ---
Author Organization [facility] Address [address] 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 Patient will go to [facility] for evaluation. documented in this encounter Plan of Treatment Upcoming Encounters Date Type Department Care Team (Late st Contact Info) Description 11/02/2024 8:15 AM UPSETTER Office Visit [facility] [place] [address]2 [place] [address] Dakota Fabian, STRATIGRAPHY TEACHER, SKIVER HAND #[address] [address] 11/26/2024 11:30 AM UPSETTER Office Visit [facility] [place] [address] [place] [address] Maggie Tolentino, PAC [address] [place] [address] documented as of this encounter Visit Diagnoses Not on filedocumented in this encounter Additional Health Concerns Infection Onset Date Last Indicated Resolved Time MRSA 03/30/2020 03/30/2020 Assessment Noted Time PHQ-9 Depression Total Score: 0 01/04/20 23 2:56 PM CDT documented as of this encounter Care Teams Side Boss Relationship Specialty Start Date End Date John Méndez MD PCP - General Family Medicine 09/28/19 04/26/24 documented as of this encounter
--- OUTSIDE RECORDS SUMMARY | 2024-10-20 04:26 | XMS_ITS | Encounter Summary ---
Author Organization [facility] Address [address] [place] [address] Phone Care Team Providers Care Manufacturing Systems Engineer Name Role Phone John Méndez MD Primary Care Provider [phone] Reason for Visit * Reason Comments Medication Management Patient is here to day to discuss medication management. 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 Smoking status: Never ??? [...] available for her other medication needs. John Méndez MD * Garo Maritza Matteo RADIO PRODUCER - 02/20/2023 8:30 AM CDT Melinda Olmedo, [...] st Contact Info) Description 11/02/2024 8:15 AM GRAIN MIXER Office Visit [facility] - Family Medicine [facility] [address] [place] [address] Dakota Fabian, METAL SLITTER, MANAGER BABY #[address] [address] 11/26/2024 11:30 AM GRAIN MIXER Office Visit [facility] [place] [address] [place] [address] Maggie Tolentino, [facility] [address] [facility] [address] documented as of this encounter Visit Diagnoses [...] documented as of this encounter Care Teams Manufacturing Systems Engineer Relationship Specialty Start Date End Date John Méndez MD PCP - General Family Medicine 09/28/19 04/26/24 documented as of this encounter
--- OUTSIDE RECORDS SUMMARY | 2024-10-20 04:26 | XMS_ITS | Encounter Summary ---
Author Organization [facility] Address [address] 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 Not on file documented as of this encounter Miscellaneous Notes * Telephone Encounter - Hilda Newton RN - 01/02/2023 8:10 AM CDT Medication([facility]) [facility] Medication Refill Standing Order [...] Dept 09/03/22 Office Visit John M[facility]dez MD [facility] [place] Showing recent visits within past 182 [...] st Contact Info) Description 11/02/2024 8:15 AM BOOMSWING OPERATOR Office Visit [facility] [address] [place] [address] Dakota Fabian APRN, TAILING HAND [facility] [address] [address] 11/26/2024 11:30 AM BOOMSWING OPERATOR Office Visit [facility] [address]2 [place] [address] Maggie Tolentino, PAC [address] [place] [address] documented as of this encounter Visit Diagnoses Diagnosis Sacroiliac joint dysfunction of both sides Disorders of sacrum Degenerative lumbar disc Degeneration of lumbar or lumbosacral intervertebral disc documented in this encounter Additional Health Concerns Infection Onset Date Last Indicated Resolved Time MRSA 03/30/2020 03/30/2020 Assessment Noted Time PHQ-9 Depression Total Score: 0 12/15/19 21 8:53 AM BOOMSWING OPERATOR documented as of this encounter Care Teams Safe And Vault Installer Relationship Specialty Start Date End Date John Méndez MD PCP - General Family Medicine 09/28/19 04/26/24 documented as of this encounter
--- OUTSIDE RECORDS SUMMARY | 2024-10-20 04:26 | XMS_ITS | Encounter Summary ---
Author Organization [facility] Address [address] [place] [address] Phone Care Team Providers Care Welfare Worker Name Role Phone John Méndez MD Primary Care Provider [phone] Reason for Referral * Consult, Test & Initiate Treatment (Routine) - Closed Specialty Diagnoses / Procedures Referred By Magui jacobo Referred To Contact Gastroenterology Diagnoses Encounter for screening colonoscopy Maggie Tolentino PAC [address] [place] [address] Phone: tel: fax: [facility] Medical [facility] - Gastroenterology [facility] #[address] [place] [address] Phone: tel: fax: Referral ID Status Reason Start Date Expiration Date Visits Re quested Visits Authorized [id number] Closed 01/03/2023 1 1 Scheduling Instructions Melinda is being referred for screening colonoscopy. Please contact patient for scheduling questions or concerns. * Radiology Services (Routine) - Canceled Specialty Diagnoses / Procedures Referred By Magui jacobo Referred To Contact Radiology Diagnoses Screening mammogram for breast cancer Procedures MARCO A SCREENING BILATERAL DIGITAL W CAD W SHENG Maggie Tolentino PAC [address] [place] [address] Phone: tel: fax: Referral ID Status Reason Start Date Expiration Date V isits Requested Visits Authorized [id number] Canceled 01/03/2023 1 1 Reason for Visit * Reason Comments Follow-up 4 mo f/u Encounter Details Date Type Department Care Team (Late st Contact Info) Description 01/03/2023 3:30 PM CDT Office Visit [facility] Medical Group [facility] [address]2 [place] [address] Maggie Tolentino PAC [address] [place] [address] Sacroiliac joint dysfunction of both sides (Primary [...] 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 [...] st Contact Info) Description 11/02/2024 8:15 AM JAVA SOFTWARE ENGINEER [facility] Visit [facility] [place] [address] [place] [address] Dakota Fabian, SHEET METAL INSTALLER, MINI BACCARAT DEALER #[address] [address] 11/26/2024 11:30 AM JAVA SOFTWARE ENGINEER Office Visit [facility] [place] [address] [place] [address] Maggie Tolentino, PAC [address] [place] [address] Scheduled Orders Name Type Priority Associated Diagnoses [...] documented as of this encounter Care Teams Welfare Worker Relationship Specialty Start Date End Date John Méndez MD PCP - General Family Medicine 09/28/19 04/26/24 documented as of this encounter
--- OUTSIDE RECORDS SUMMARY | 2024-10-20 04:26 | XMS_ITS | Encounter Summary ---
Author Organization [facility] Address [address] 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 Not on file documented as of this encounter Plan of Treatment Upcoming Encounters Date Type Department Care Team (Late st Contact Info) Description 11/02/2024 8:15 AM MICROECONOMICS PROFESSOR [facility] [place] [facility] [place] [address] Dakota Fabian APRN, NUCLEAR CHEMISTRY TECHNICIAN #[address] [address] 11/26/2024 11:30 AM MICROECONOMICS PROFESSOR [facility] [place] [facility] [place] [address] Maggie Tolentino PAC [address] [place] [address] documented as of this encounter Visit Diagnoses Diagnosis Sacroiliac joint dysfunction of both sides Disorders of sacrum Degenerative lumbar disc Degeneration of lumbar or lumbosacral intervertebral disc documented in this encounter Additional Health Concerns Infection Onset Date Last Indicated Resolved Time MRSA 03/30/2020 03/30/2020 COVID - 19 09/11/2024 09/11/2024 09/11/2024 7:21 PM MICROECONOMICS PROFESSOR Assessment Noted Time PHQ-9 Depression Total Score: 0 12/15/19 8:53 AM MICROECONOMICS PROFESSOR documented as of this encounter Care Teams Ground Hand Relationship Specialty Start Date End Date John Méndez MD PCP - General Family Medicine 09/28/19 04/26/24 Dakota Fabian, REAL ESTATE RECRUITER, NUCLEAR CHEMISTRY TECHNICIAN #[address] [address] PCP - General Advanced Practice Nurse 04/27/24 documented as of this encounter
--- OUTSIDE RECORDS SUMMARY | 2024-10-20 04:26 | XMS_ITS | Encounter Summary ---
Author Organization [facility] Address [address] 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 Méndez. Sara also asked if patient is currently prescribed pain medication by Dr. Méndez, this RN informed Sara the Dr. Méndez is NOT prescribing patient any pain medication. T OF WAY WORKER * Telephone Encounter - John Méndez MD [...] not seen her in so l chepe. T OF WAY WORKER * Telephone Encounter - Jayda Lacy RN - 11/17/2023 3:19 PM CST Situation: Request for information Background: SOPHIA form from [facility] is on file. Media tab. [...] PCP Sara Palomino Can be reached at [phone] ---this note has been blocked from patient's view via [employer] as there is concern for likelihood orpossibility of causing physical harm to anyone involved-- T OF WAY WORKER documented in this encounter Plan of Treatment Upcoming Encounters Date Type Department Care Team (Late st Contact Info) Description 11/02/2024 8:[address] WORKER [facility]2 [facility] [place] [address] Dakota Fabian APRN, RESIDENTIAL YOUTH COUNSELOR #[address] [address] 11/26/2024 11:[address] WORKER Office Visit [facility] #2 [facility] [address] Maggie Tolentino, PAC [address] [place] [address] documented as of this encounter Visit Diagnoses Not on filedocumented in this encounter Additional Health Concerns Infection Onset Date Last Indicated Resolved Time MRSA 03/30/2020 03/30/2020 Assessment Noted Time PHQ-9 Depression Total Score: 0 01/04/20 23 2:56 PM CDT documented as of this encounter Care Teams Supervisor Mail Carriers Relationship Specialty Start Date End Date John Méndez MD PCP - General Family Medicine 09/28/19 04/26/24 documented as of this encounter
--- OUTSIDE RECORDS SUMMARY | 2024-10-20 04:26 | XMS_ITS | Encounter Summary ---
Author Organization [facility] Address [address] [facility] 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 tiZANidine HCl Dispensed Days Supply Quantity Provider Pharmacy TIZANIDINE 4MG TAB 10/31/2022 30 30 Tablet John Méndez MD [facility]/pharmacy #[id number] - A... TIZANIDINE HCL 4 MG TABLET 09/29/2022 30 30 Each John Méndez MD [facility] #[id number] - A... TIZANIDINE HCL 4 MG TABLET 09/03/2022 30 30 Each John Méndez MD [facility]/pharmacy #[id number] - A... AND BEVERAGE DIRECTOR documented in this encounter Plan of Treatment Upcoming Encounters Date Type Department Care Team (Late st Contact Info) Description 11/02/2024 8:15 AM FOOD AND BEVERAGE DIRECTOR Office Visit [facility] [address] [place] [address] Dakota Fabian APRN, CUSTOMER CARE TEAM COACH #[address] [address] 11/26/2024 11:30 AM FOOD AND BEVERAGE DIRECTOR Office Visit [facility] [address] [place] [address] Maggie Tolentino, PAC [address] [place] [address] documented as of this encounter Visit Diagnoses Diagnosis Degenerative lumbar disc Degeneration of lumbar or lumbosacral intervertebral disc documented in this encounter Additional Health Concerns Infection Onset Date Last Indicated Resolved Time MRSA 03/30/2020 03/30/2020 COVID - 19 09/11/2024 09/11/2024 09/11/2024 7:21 PM FOOD AND BEVERAGE DIRECTOR Assessment Noted Time PHQ-9 Depression Total Score: 0 12/15/19 8:53 AM FOOD AND BEVERAGE DIRECTOR documented as of this encounter Care Teams Vp Corporate Development Relationship Specialty Start Date End Date John Méndez MD PCP - General Family Medicine 09/28/19 04/26/24 Dakota Fabian APRN, CUSTOMER CARE TEAM COACH [address] [place] [address] PCP - General Advanced Practice Nurse 04/27/24 documented as of this encounter
--- OUTSIDE RECORDS SUMMARY | 2024-10-20 04:26 | XMS_ITS | Encounter Summary ---
Author Organization [facility] Address [address] 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 Spoke with patient. Will send them through [employer]. documented in this encounter Plan of Treatment Upcoming Encounters Date Type Department Care Team (Late st Contact Info) Description 11/02/2024 8:15 AM SOCIAL WORKER MASTERS Office Visit [facility] [address]2 [place] [address] Dakota Fabian APRN, PR MANAGER #[address] [address] 11/26/2024 11:30 AM SOCIAL WORKER MASTERS Office Visit [facility] [place] [address] [place] [address] Maggie Tolentino, PAC [address] [place] [address] documented as of this encounter Visit Diagnoses Not on filedocumented in this encounter Additional Health Concerns Infection Onset Date Last Indicated Resolved Time MRSA 03/30/2020 03/30/2020 Assessment Noted Time PHQ-9 Depression Total Score: 0 01/04/20 23 2:56 PM CDT documented as of this encounter Care Teams Cloud Engagement Partner Relationship Specialty Start Date End Date John Méndez MD PCP - General Family Medicine 09/28/19 04/26/24 documented as of this encounter
--- OUTSIDE RECORDS SUMMARY | 2024-10-20 04:26 | XMS_ITS | Encounter Summary ---
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 No / Unsure 09/03/2022 9:02 AM TIGHTENING MACHINE OPERATOR documented as of this encounter Plan of Treatment Upcoming Encounters Date Type Department Care Team (Late st Contact Info) Description 11/02/2024 8:15 AM TIGHTENING MACHINE OPERATOR Office Visit [facility] Medical Group - Family Medicine [facility] [address] [place] [id number] Dakota Fabian, BOOT AND SADDLE REPAIR PERSON, IPHONE DEVELOPER #[address] [address] 11/26/2024 11:30 AM TIGHTENING MACHINE OPERATOR Office Visit [facility] - [facility] - [place] [address] [place] [address] Maggie Tolentino, PAC [address]2 [place] [address] documented as of this encounter Visit Diagnoses Not on filedocumented in this encounter Additional Health Concerns Infection Onset Date Last Indicated Resolved Time MRSA 03/30/2020 03/30/2020 Assessment Noted Time PHQ-9 Depression Total Score: 0 12/15/19 21 8:53 AM TIGHTENING MACHINE OPERATOR documented as of this encounter Care Teams Criminal Defense Attorney Relationship Specialty Start Date End Date John Méndez MD PCP - General Family Medicine 09/28/19 04/26/24 documented as of this encounter
--- OUTSIDE RECORDS SUMMARY | 2024-10-20 04:26 | XMS_ITS | Encounter Summary ---
Author Organization [facility] Address [address] [place] [address] Phone Care Team Providers Care Manufacturing Scheduler Name Role Phone John Méndez MD Primary Care Provider [phone] Reason for Visit * Reason Onset Date Comments reminder for procedures 09/12/2022 Encounter Details Date Type Department Care Team (Late st Contact Info) Description 09/12/2022 Telephone 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 No / Unsure 09/03/2022 9:02 AM GAMEWELL OPERATOR documented as of this encounter Miscellaneous Notes * Telephone Encounter - Kelly Palacios RN - 09/12/2022 10:49 AM CST Patient reminder letter mailed to patient to call and schedule Colonoscopy and EGD with Gastroenterology as she has open orders. WELL OPERATOR * Telephone Encounter - Kelly Palacios RN - 09/12/2022 10:44 AM CST Patient is currently under the care of [facility]. There are orders in placed for a Colonoscopy and EGD that the patient has never scheduled. WELL OPERATOR documented in this encounter Plan of Treatment Upcoming Encounters Date Type Department Care Team (Late st Contact Info) Description 11/02/2024 8:15 AM GAMEWELL OPERATOR Office Visit [facility] [address]2 [place] [address] Dakota Fabian APRN, ROOFING PLANT SUPERVISOR #[address] [address] 11/26/2024 11:30 AM GAMEWELL OPERATOR Office Visit [facility] [address]2 [place] [address] Maggie Tolentino, PAC [address] [place] [address] documented as of this encounter Visit Diagnoses Not on filedocumented in this encounter Additional Health Concerns Infection Onset Date Last Indicated Resolved Time MRSA 03/30/2020 03/30/2020 Assessment Noted Time PHQ-9 Depression Total Score: 0 12/15/19 8:53 AM GAMEWELL OPERATOR documented as of this encounter Care Teams Manufacturing Scheduler Relationship Specialty Start Date End Date John Méndez MD PCP - General Family Medicine 09/28/19 04/26/24 documented as of this encounter
--- OUTSIDE RECORDS SUMMARY | 2024-10-20 04:26 | XMS_ITS | Encounter Summary ---
Author Organization [facility] Address [address] [facility] 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 No / Unsure 09/03/2022 9:02 AM ROTARY DRILLER HELPER documented as of this encounter Miscellaneous Notes [...] with a depression or anxiety visit diagnosis RY DRILLER HELPER documented in this encounter Plan of Treatment Upcoming Encounters Date Type Department Care Team (Late st Contact Info) Description 11/02/2024 8:15 AM ROTARY DRILLER HELPER Office Visit [facility] [address]2 [place] [address] Dakota Fabian APRN, THERMO CEMENTING FOLDER OPERATOR #[address] [address] 11/26/2024 11:30 AM ROTARY DRILLER HELPER Office Visit [facility] [address] [place] [address] Maggie Tolentino, [place] [address] [place] [address] documented as of this encounter Visit Diagnoses Diagnosis Wheezing documented in this encounter Additional Health Concerns Infection Onset Date Last Indicated Resolved Time MRSA 03/30/2020 03/30/2020 COVID - 19 09/11/2024 09/11/2024 09/11/2024 7:21 PM ROTARY DRILLER HELPER Assessment Noted Time PHQ-9 Depression Total Score: 0 12/15/19 8:53 AM ROTARY DRILLER HELPER documented as of this encounter Care Teams Ed Teacher Relationship Specialty Start Date End Date John Méndez MD PCP - General Family Medicine 09/28/19 04/26/24 Dakota Fabian APRN, THERMO CEMENTING FOLDER OPERATOR #[address] [place] [address] PCP - General Advanced Practice Nurse 04/27/24 documented as of this encounter
--- OUTSIDE RECORDS SUMMARY | 2024-10-20 04:26 | XMS_ITS | Encounter Summary ---
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 file [...] Contact Info) Description 11/02/2024 8:15 AM DIRECTOR BUSINESS INTELLIGENCE Office Visit [facility] Medical Group - Family Medicine [facility] #2 [place] [address] Dakota Fabian, HUMAN RESOURCE ANALYST, ELECTRICIAN REFINERY #[address] [address] 11/26/2024 11:30 AM DIRECTOR BUSINESS INTELLIGENCE Office Visit [facility] - [facility] - [place] [address] [place] [address] Maggie Tolentino, [facility] #2 [place] [address] documented as of this encounter Visit Diagnoses Not on filedocumented in this encounter Additional Health Concerns Infection Onset Date Last Indicated Resolved Time MRSA 03/30/2020 03/30/2020 Assessment Noted Time PHQ-9 Depression Total Score: 0 12/15/19 21 8:53 AM DIRECTOR BUSINESS INTELLIGENCE documented as of this encounter Care Teams Disintegrator Relationship Specialty Start Date End Date John Méndez MD PCP - General Family Medicine 09/28/19 04/26/24 documented as of this encounter
--- OUTSIDE RECORDS SUMMARY | 2024-10-20 04:26 | XMS_ITS | Encounter Summary ---
Author Organization [facility] Address [address] 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 [...] Werner 01/03/23 Office Visit Maggie Tolentino PAC [facility] 09/03/22 Office Visit John Méndez MD [facility] Showing recent visits within past 365 days and meeting all other requirements Future Appointments Date Type Provider Dept 08/26/23 Appointment John Méndez MD [facility] [place] Showing future appointments within next 90 days and meeting all other requirements Passed - Patient less than 65 years of age for Cetirizine or Levocetirizine documented in this encounter Plan of Treatment Upcoming Encounters Date Type Department Care Team (Late st Contact Info) Description 11/02/2024 8:15 AM ENDOSCOPY NURSE Office Visit [facility] [address]2 [place] [address] Dakota Fabian APRN, JIGMAN #[address] [address] 11/26/2024 11:30 AM ENDOSCOPY NURSE Office Visit [facility] #2 [place] [address] Maggie Tolentino, PAC [address] [place] [address] documented as of this encounter Visit Diagnoses Diagnosis Chronic sinusitis, unspecified location documented in this encounter Additional Health Concerns Infection Onset Date Last Indicated Resolved Time MRSA 03/30/2020 03/30/2020 Assessment Noted Time PHQ-9 Depression Total Score: 0 01/04/20 23 2:56 PM CDT documented as of this encounter Care Teams Wine Cellar Worker Relationship Specialty Start Date End Date John Méndez MD PCP - General Family Medicine 09/28/19 04/26/24 documented as of this encounter
--- OUTSIDE RECORDS SUMMARY | 2024-10-20 04:26 | XMS_ITS | Encounter Summary ---
Author Organization [facility] Address [address] [place] 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 #2 [place] [address] Dakota Fabian, PREVENTION RN, ROLL THREADER OPERATOR #[address] [address] 11/26/2024 11:30 AM SURVEY MANAGER Office Visit [facility] #2 [place] [address] Maggie Tolentino, PAC [address] [place] [address] documented as of this encounter Visit Diagnoses Diagnosis Sacroiliac joint dysfunction of both sides Disorders of sacrum Degenerative lumbar disc Degeneration of lumbar or lumbosacral intervertebral disc documented in this encounter Additional Health Concerns Infection Onset Date Last Indicated Resolved Time MRSA 03/30/2020 03/30/2020 COVID - 19 09/11/2024 09/11/2024 09/11/2024 7:21 PM SURVEY MANAGER Assessment Noted Time PHQ-9 Depression Total Score: 0 12/15/19 8:53 AM SURVEY MANAGER documented as of this encounter Care Teams Records Management Technician Relationship Specialty Start Date End Date John Méndez MD PCP - General Family Medicine 09/28/19 04/26/24 Dakota Fabian APRN, ROLL THREADER OPERATOR #[address] [address] PCP - General Advanced Practice Nurse 04/27/24 documented as of this encounter
--- OUTSIDE RECORDS SUMMARY | 2024-10-20 04:26 | XMS_ITS | Encounter Summary ---
Author Organization [facility] Address [address] 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 Not on file documented as of this encounter Miscellaneous Notes * Telephone Encounter - Hilda Newton RN - 02/10/2023 8:02 AM CDT Medication([facility]) [facility] Medication Refill Standing Order [...] st Contact Info) Description 11/02/2024 8:15 AM FOREIGN LANGUAGE TEACHER Office Visit [facility] #2 [place] [address] Dakota Fabian, ELECTRONIC DESIGN ENGINEER, CURTAIN CUTTER HAND #[address] [address] 11/26/2024 11:30 AM FOREIGN LANGUAGE TEACHER Office Visit [facility] #2 [place] [address] Maggie Tolentino, PAC [address] [place] [address] documented as of this encounter Visit Diagnoses Diagnosis Primary hypertension Unspecified essential hypertension documented in this encounter Additional Health Concerns Infection Onset Date Last Indicated Resolved Time MRSA 03/30/2020 03/30/2020 Assessment Noted Time PHQ-9 Depression Total Score: 0 01/04/20 23 2:56 PM CDT documented as of this encounter Care Teams Marine Transport Professionals Relationship Specialty Start Date End Date John Méndez MD PCP - General Family Medicine 09/28/19 04/26/24 documented as of this encounter
--- OUTSIDE RECORDS SUMMARY | 2024-10-20 04:26 | XMS_ITS | Encounter Summary ---
Author Organization [facility] Address [address] [facility] [place] [address] Phone Care Team Providers Care Drive In Waiter/Waitress Name Role Phone John Méndez MD Primary Care Provider [phone] Reason for Referral * Consult, Test & Initiate Treatment (Routine) - Canceled Specialty Diagnoses / Procedures Referred By Magui t Referred To Contact General Surgery Diagnoses Colon cancer screening John Méndez MD [address]1 [place] [address] Phone: tel: fax: [facility] [address] [address] Phone: tel: fax: Referral ID Status Reason Start Date Expiration Date V isits Requested Visits Authorized [id number] Canceled 09/03/2022 1 1 Scheduling Instructions Melinda is being referred for routine colonoscopy. Please contact patient for scheduling questions or concerns. ESS SAFETY MANAGEMENT ENGINEER Reason for Visit * Reason Comments Follow-up Patient is here for a follow up to chronic conditions. Encounter Details Date Type Department Care Team ([facility] Contact Info) Description 09/03/2022 9:15 AM PROCESS SAFETY MANAGEMENT ENGINEER Office Visit [facility] Family Medicine [facility] #[address] 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 No / Unsure 09/03/2022 9:02 AM PROCESS SAFETY MANAGEMENT ENGINEER documented as of this encounter Last Filed Vital Signs Vital Sign Reading Time Taken Comments Blood Pressure 112/64 09/03/2022 9:26 AM PROCESS SAFETY MANAGEMENT ENGINEER Pulse 75 09/03/2022 9:26 AM PROCESS SAFETY MANAGEMENT ENGINEER Temperature 36.4 ??C (97.6 ??F) 09/03/2022 9:26 AM CS T Respiratory Rate 12 09/03/2022 9:26 AM PROCESS SAFETY MANAGEMENT ENGINEER Oxygen Saturation 98% 09/03/2022 9:26 AM PROCESS SAFETY MANAGEMENT ENGINEER Inhaled Oxygen Concentration - - Weight 105.2 kg (232 lb) 09/03/2022 9:26 AM PROCESS SAFETY MANAGEMENT ENGINEER Height 160 cm (5' 3 ) 09/03/2022 9:26 AM PROCESS SAFETY MANAGEMENT ENGINEER Body Mass Index 41.1 09/03/2022 9:26 AM PROCESS SAFETY MANAGEMENT ENGINEER documented in this encounter Progress Notes * [...] with the patient today: BMI and Colonoscopy ESS SAFETY MANAGEMENT ENGINEER * John Méndez MD - 09/03/2022 9:15 [...] file Occupational History ??? 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 Smoking status: Never ??? [...] the meantime with any problems or concerns. ESS SAFETY MANAGEMENT ENGINEER documented in this encounter Plan of Treatment Upcoming Encounters Date Type Department Care Team (Late st Contact Info) Description 11/02/2024 8:15 AM PROCESS SAFETY MANAGEMENT ENGINEER Office Visit [facility] #2 [place] [address] Dakota Fabian APRN, SORTER/ASSAY TECH #[address] [address] 11/26/2024 11:30 AM PROCESS SAFETY MANAGEMENT ENGINEER Office Visit [facility] - Family Medicine [facility] #2 [place] [address] Maggie Tolentino, [facility] #2 [place] [address] Scheduled Referrals Name Type Priority Associated Diagnoses [...] Total Score: 0 12/15/19 21 8:53 AM PROCESS SAFETY MANAGEMENT ENGINEER documented as of this encounter Care Teams Drive In Waiter/Waitress Relationship Specialty Start Date End Date John Méndez MD PCP - General Family Medicine 09/28/19 04/26/24 documented as of this encounter
--- OUTSIDE RECORDS SUMMARY | 2024-10-20 04:26 | XMS_ITS | Encounter Summary ---
Author Organization [facility] Address [address] [facility] 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 [...] Dept 01/03/23 Office Visit Maggie Tolentino PAC [facility] 09/03/22 Office Visit John Méndez MD [facility] 04/29/22 Office Visit John Méndez MD [facility] Showing recent visits within past 365 days and meeting all other requirements Future Appointments Date Type Provider Dept 04/04/23 Appointment John Méndez MD [facility] Showing future appointments within next 90 days and meeting all other requirements documented in this encounter Plan of Treatment Upcoming Encounters Date Type Department Care Team (Late st Contact Info) Description 11/02/2024 8:15 AM STRAND BUNCHER FINE WIRE Office Visit [facility] #2 [place] [address] Dakota Fabian APRN, ELECTRONIC SYSTEMS SECURITY ASSESSMENT #[address] [address] 11/26/2024 11:30 AM STRAND BUNCHER FINE WIRE Office Visit [facility] #2 [place] [address] Maggie Tolentino, PAC [address] [place] [address] documented as of this encounter Visit Diagnoses Diagnosis Sacroiliac joint dysfunction of both sides Disorders of sacrum Degenerative lumbar disc Degeneration of lumbar or lumbosacral intervertebral disc documented in this encounter Additional Health Concerns Infection Onset Date Last Indicated Resolved Time MRSA 03/30/2020 03/30/2020 COVID - 19 09/11/2024 09/11/2024 09/11/2024 7:21 PM STRAND BUNCHER FINE WIRE Assessment Noted Time PHQ-9 Depression Total Score: 0 01/04/20 23 2:56 PM CDT documented as of this encounter Care Teams County Court Judge Relationship Specialty Start Date End Date John Méndez MD PCP - General Family Medicine 09/28/19 04/26/24 Dakota Fabian, CRIPPLE CUTTER, ELECTRONIC SYSTEMS SECURITY ASSESSMENT #2 [place] [address] PCP - General Advanced Practice Nurse 04/27/24 documented as of this encounter
--- OUTSIDE RECORDS SUMMARY | 2024-10-20 04:26 | XMS_ITS | Encounter Summary ---
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 Not on file documented as of this encounter Plan of Treatment Upcoming Encounters Date Type Department Care Team (Late st Contact Info) Description 11/02/2024 8:15 AM FRUIT TESTER Office Visit [facility] Group - Family Medicine [facility] #[address] [place] [address] Dakota Fabian, PHOTOGRAPH DEVELOPER, COUNTER CLERK [address] [address] 11/26/2024 11:30 AM FRUIT TESTER Office Visit [facility] - [place] [address] [place] [address] Maggie Tolentino, PAC [address]2 [place] [address] documented as of this encounter Visit Diagnoses Not on filedocumented in this encounter Additional Health Concerns Infection Onset Date Last Indicated Resolved Time MRSA 03/30/2020 03/30/2020 Assessment Noted Time PHQ-9 Depression Total Score: 0 01/04/20 23 2:56 PM CDT documented as of this encounter Care Teams Tree Farmer Relationship Specialty Start Date End Date John Méndez MD PCP - General Family Medicine 09/28/19 04/26/24 documented as of this encounter
--- OUTSIDE RECORDS SUMMARY | 2024-10-20 04:26 | XMS_ITS | Encounter Summary ---
Author Organization [facility] Address [address] [facility] 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 Not on file documented as of this encounter Miscellaneous Notes * Telephone Encounter - Hilda Newton RN - 12/09/2022 8:50 AM NEWS PRODUCTION SUPERVISOR PDMP 11/11/22 #90 Medication failed the protocol, [...] 90 days and meeting all other requirements PRODUCTION SUPERVISOR documented in this encounter Plan of Treatment Upcoming Encounters Date Type Department Care Team (Late st Contact Info) Description 11/02/2024 8:15 AM NEWS PRODUCTION SUPERVISOR Office Visit [facility] [place] [address]2 [place] [address] Dakota Fabian, PUMPER GAGER, CONFIGURATION MANAGEMENT CONSULTANT #[address] [address] 11/26/2024 11:30 AM NEWS PRODUCTION SUPERVISOR Office Visit [facility] [place] [address]2 [place] [address] Maggie Tolentino, PAC [address]2 [place] [address] documented as of this encounter Visit Diagnoses Diagnosis Sacroiliac joint dysfunction of both sides Disorders of sacrum Degenerative lumbar disc Degeneration of lumbar or lumbosacral intervertebral disc documented in this encounter Additional Health Concerns Infection Onset Date Last Indicated Resolved Time MRSA 03/30/2020 03/30/2020 COVID - 19 09/11/2024 09/11/2024 09/11/2024 7:21 PM NEWS PRODUCTION SUPERVISOR Assessment Noted Time PHQ-9 Depression Total Score: 0 12/15/19 8:53 AM NEWS PRODUCTION SUPERVISOR documented as of this encounter Care Teams In Flight Refueling System Repairer Relationship Specialty Start Date End Date John Méndez MD PCP - General Family Medicine 09/28/19 04/26/24 Dakota Fabian APRN, CONFIGURATION MANAGEMENT CONSULTANT [address] [address] [address] PCP - General Advanced Practice Nurse 04/27/24 documented as of this encounter
--- OUTSIDE RECORDS SUMMARY | 2024-10-20 04:26 | XMS_ITS | Encounter Summary ---
Author Organization [facility] Address [address] 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 [...] [facility] [place] 01/03/23 Office Visit Maggie Tolentino, [facility] Vanessa Werner 09/03/22 Office Visit John Méndez MD [facility] [place] Showing recent visits within past 365 days and meeting all other requirements Future Appointments Date Type Provider Dept 08/26/23 Appointment Jhon Méndez MD [facility] [place] Showing future appointments [...] [place] 01/03/23 Office Visit Maggie Tolentino PAC [facility] [place] Showing recent visits within past 182 [...] [place] 01/03/23 Office Visit Maggie Tolentino PAC [facility] [place] Showing recent visits within past 182 [...] Contact Info) Description 11/02/2024 8:15 AM CEMENT CONVEYOR OPERATOR Office Visit [facility] [place] [address]2 [place] [address] Dakota Fabian APRN, MULTIPLE SPINDLE ROUTER OPERATOR #[address] [address] 11/26/2024 11:30 AM CEMENT CONVEYOR OPERATOR Office Visit [facility] [address]2 [place] [address] Maggie Tolentino, PAC [address]2 [place] [address] documented as of this encounter Visit Diagnoses Diagnosis High cholesterol Pure hypercholesterolemia documented in this encounter Additional Health Concerns Infection Onset Date Last Indicated Resolved Time MRSA 03/30/2020 03/30/2020 Assessment Noted Time PHQ-9 Depression Total Score: 0 01/04/20 23 2:56 PM CDT documented as of this encounter Care Teams Group Sales Coordinator Relationship Specialty Start Date End Date John Méndez MD PCP - General Family Medicine 09/28/19 04/26/24 documented as of this encounter
--- OUTSIDE RECORDS SUMMARY | 2024-10-20 04:26 | XMS_ITS | Encounter Summary ---
Author Organization [facility] Address [address] [place] [address] Phone Care Team Providers Care Escrow Manager Name Role Phone John Méndez MD Primary Care Provider [phone] Dakota Fabian APRN, CNP Primary Care Pr ovider Reason for Visit * Reason Onset Date Comments Medication Refill Medication Management 01/04/2023 Encounter Details Date Type Department Care Team (Late st Contact Info) Description 01/04/2023 Telephone [facility] Family Medicine 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 States [facility] does not have it in stock. Please [...] st Contact Info) Description 11/02/2024 8:15 AM LAUNDRY ATTENDANT Office Visit [facility] [place] [address] Dakota Fabian APRN, TRADE EMBALMER #[address] [address] 11/26/2024 11:30 AM LAUNDRY ATTENDANT Office Visit [facility] [address] [place] [address] Maggie Tolentino, PAC [address]2 [place] [address] documented as of this encounter Visit Diagnoses Diagnosis Sacroiliac joint dysfunction of both sides Disorders of sacrum Degenerative lumbar disc Degeneration of lumbar or lumbosacral intervertebral disc documented in this encounter Additional Health Concerns Infection Onset Date Last Indicated Resolved Time MRSA 03/30/2020 03/30/2020 COVID - 19 09/11/2024 09/11/2024 09/11/2024 7:21 PM LAUNDRY ATTENDANT Assessment Noted Time PHQ-9 Depression Total Score: 0 01/04/20 23 2:56 PM CDT documented as of this encounter Care Teams Escrow Manager Relationship Specialty Start Date End Date John Méndez MD PCP - General Family Medicine 09/28/19 04/26/24 Dakota Fabian, PHARM SPEC, TRADE EMBALMER #[address] [address] PCP - General Advanced Practice Nurse 04/27/24 documented as of this encounter
--- OUTSIDE RECORDS SUMMARY | 2024-10-20 04:26 | XMS_ITS | Encounter Summary ---
Author Organization [facility] Address [address] 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 Not on [...] 11/02/2024 8:15 AM MATERIAL MOVER Office Visit [facility] [address]2 [place] [address] Dakota Fabian APRN, RADIO FREQUENCY DESIGN ENGINEER #[address] [address] 11/26/2024 11:30 AM MATERIAL MOVER Office Visit [facility] [place] #2 [place] [address] Maggie Tolentino, PAC [address] [place] [address] documented as of this encounter Visit Diagnoses Not on filedocumented in this encounter Additional Health Concerns Infection Onset Date Last Indicated Resolved Time MRSA 03/30/2020 03/30/2020 Assessment Noted Time PHQ-9 Depression Total Score: 0 01/04/20 23 2:56 PM CDT documented as of this encounter Care Teams Contact Lens Polisher Relationship Specialty Start Date End Date John Méndez MD PCP - General Family Medicine 09/28/19 04/26/24 documented as of this encounter
--- OUTSIDE RECORDS SUMMARY | 2024-10-20 04:26 | XMS_ITS | Encounter Summary ---
Author Organization [facility] Address [address] [facility] 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 [...] st Contact Info) Description 11/02/2024 8:15 AM SHIP LABORER Office Visit [facility] [place] [address]2 [place] [address] Dakota Fabian APRN, JD EDWARDS CONSULTANT [address] [address] 11/26/2024 11:30 AM SHIP LABORER Office Visit [facility] [place] [address]2 [place] [address] Maggie Tolentino, [facility] #2 [place] [address] documented as of this encounter Visit Diagnoses Diagnosis Sacroiliac joint dysfunction of both sides Disorders of sacrum Degenerative lumbar disc Degeneration of lumbar or lumbosacral intervertebral disc documented in this encounter Additional Health Concerns Infection Onset Date Last Indicated Resolved Time MRSA 03/30/2020 03/30/2020 COVID - 19 09/11/2024 09/11/2024 09/11/2024 7:21 PM SHIP LABORER Assessment Noted Time PHQ-9 Depression Total Score: 0 12/15/19 8:53 AM SHIP LABORER documented as of this encounter Care Teams Wrong Address Clerk Relationship Specialty Start Date End Date John Méndez MD PCP - General Family Medicine 09/28/19 04/26/24 Dakota Fabian, STEEL DIVISION SUPERVISOR, JD EDWARDS CONSULTANT #[address] [address] PCP - General Advanced Practice Nurse 04/27/24 documented as of this encounter
--- OUTSIDE RECORDS SUMMARY | 2024-10-20 04:26 | XMS_ITS | Encounter Summary ---
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 Not on file documented as of this encounter Plan of Treatment Upcoming Encounters Date Type Department Care Team (Late st Contact Info) Description 11/02/2024 8:15 AM PICK AND SHOVEL MAN Office Visit [facility] Medical Group - Family Medicine [facility] #[address] [place] [address] Dakota Fabian, SPIKEMAKING SUPERVISOR, ELECTROPHYSIOLOGY TECH [address] [address] 11/26/2024 11:30 AM PICK AND SHOVEL MAN Office Visit [facility] [place] [address] [place] [address] Maggie Tolentino, PAC [address]2 [place] [address] documented as of this encounter Visit Diagnoses Not on filedocumented in this encounter Additional Health Concerns Infection Onset Date Last Indicated Resolved Time MRSA 03/30/2020 03/30/2020 Assessment Noted Time PHQ-9 Depression Total Score: 0 01/04/20 23 2:56 PM CDT documented as of this encounter Care Teams Inside Sales Supervisor Relationship Specialty Start Date End Date John Méndez MD PCP - General Family Medicine 09/28/19 04/26/24 documented as of this encounter
--- OUTSIDE RECORDS SUMMARY | 2024-10-20 04:26 | XMS_ITS | Encounter Summary ---
Author Organization [facility] Address [address] [facility] [place] 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 Not on file documented as of this encounter Miscellaneous Notes * Telephone Encounter - Hilda Newton RN - 11/04/2022 11:36 AM EMERGENCY DISPATCH OPERATOR Per nursing clinical judgement, provider to review [...] Provider Dept 01/02/23 Appointment John Méndez MD [facility] [place] Showing future appointments within next 90 days and meeting all other requirements Passed - Has an encounter in the past 6 months with a depression or anxiety visit diagnosis Passed - Patient has established therapy with Bupropion for at least 6 months GENCY DISPATCH OPERATOR documented in this encounter Plan of Treatment Upcoming Encounters Date Type Department Care Team (Late st Contact Info) Description 11/02/2024 8:15 AM EMERGENCY DISPATCH OPERATOR Office Visit [facility] [place] [address]2 [place] [address] Dakota Fabian, THOM, WEB PRESS OPERATOR ASSISTANT #[address] [address] 11/26/2024 11:30 AM EMERGENCY DISPATCH OPERATOR Office Visit [facility] [address]2 [place] [address] Maggie Tolentino, PAC [address] [place] [address] documented as of this encounter Visit Diagnoses Diagnosis Wheezing documented in this encounter Additional Health Concerns Infection Onset Date Last Indicated Resolved Time MRSA 03/30/2020 03/30/2020 COVID - 19 09/11/2024 09/11/2024 09/11/2024 7:21 PM EMERGENCY DISPATCH OPERATOR Assessment Noted Time PHQ-9 Depression Total Score: 0 12/15/19 8:53 AM EMERGENCY DISPATCH OPERATOR documented as of this encounter Care Teams Financial Dealers Relationship Specialty Start Date End Date John Méndez MD PCP - General Family Medicine 09/28/19 04/26/24 Dakota Fabian APRN, WEB PRESS OPERATOR ASSISTANT #[address] [address] PCP - General Advanced Practice Nurse 04/27/24 documented as of this encounter
--- OUTSIDE RECORDS SUMMARY | 2024-10-20 04:26 | XMS_ITS | Encounter Summary ---
Author Organization [facility] Address [address] [facility] [place] 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 documented in this encounter Plan of Treatment Upcoming Encounters Date Type Department Care Team (Late st Contact Info) Description 11/02/2024 8:15 AM WATER TESTER Office Visit [facility] [place] [facility] #2 [place] [address] Dakota Fabian, METAL LATHER, GAS DISTRIBUTION PLANT OPERATOR #[address] [address] 11/26/2024 11:30 AM WATER TESTER Office Visit [facility] [address] [place] [address] Maggie Tolentino, PAC [address] [place] [address] documented as of this encounter Visit Diagnoses Not on filedocumented in this encounter Additional Health Concerns Infection Onset Date Last Indicated Resolved Time MRSA 03/30/2020 03/30/2020 Assessment Noted Time PHQ-9 Depression Total Score: 0 12/15/19 21 8:53 AM WATER TESTER documented as of this encounter Care Teams Patient Care Director Relationship Specialty Start Date End Date John Méndez MD PCP - General Family Medicine 09/28/19 04/26/24 documented as of this encounter
--- OUTSIDE RECORDS SUMMARY | 2024-10-20 04:26 | XMS_ITS | Encounter Summary ---
Author Organization [facility] 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 Not on file documented as of this encounter Plan of Treatment Upcoming Encounters Date Type Department Care Team (Late st Contact Info) Description 11/02/2024 8:15 AM WALL TAPER HELPER Office Visit [facility] Medical Group - Family Medicine [facility] #[address] [place] [address] Dakota Fabian, FACEPIECE LINE SUPERVISOR, CHRISTMAS BELL RINGER [address] [address] 11/26/2024 11:30 AM WALL TAPER HELPER Office Visit [facility] [place] [address] [place] [address] Maggie Tolentino, PAC [address]2 [place] [address] documented as of this encounter Visit Diagnoses Not on filedocumented in this encounter Additional Health Concerns Infection Onset Date Last Indicated Resolved Time MRSA 03/30/2020 03/30/2020 Assessment Noted Time PHQ-9 Depression Total Score: 0 01/04/20 23 2:56 PM CDT documented as of this encounter Care Teams Consumer Marketing Analyst Relationship Specialty Start Date End Date John Méndez MD PCP - General Family Medicine 09/28/19 04/26/24 documented as of this encounter
--- OUTSIDE RECORDS SUMMARY | 2024-10-20 04:26 | XMS_ITS | Encounter Summary ---
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 Not [...] st Contact Info) Description 11/02/2024 8:15 AM IT PROGRAMMER Office Visit [facility] #2 [place] [address] Dakota Fabian, FOUNDATION ENGINEER, ELECTRIC METER TECHNICIAN #[address] [address] 11/26/2024 11:30 AM IT PROGRAMMER Office Visit [facility] #2 [facility] [address] Maggie Tolentino, PAC [address] [place] [address] documented as of this encounter Visit Diagnoses Not on filedocumented in this encounter Additional Health Concerns Infection Onset Date Last Indicated Resolved Time MRSA 03/30/2020 03/30/2020 Assessment Noted Time PHQ-9 Depression Total Score: 0 01/04/20 23 2:56 PM CDT documented as of this encounter Care Teams Technology Engineer Relationship Specialty Start Date End Date John Méndez MD PCP - General Family Medicine 09/28/19 04/26/24 documented as of this encounter
--- OUTSIDE RECORDS SUMMARY | 2024-10-20 04:26 | XMS_ITS | Encounter Summary ---
Author Organization [facility] Address [address] 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 No / Unsure 09/03/2022 9:02 AM PIPE JEEPER documented as of this encounter Miscellaneous Notes * Telephone Encounter - Hair Eller RN - 09/11/2022 3:19 PM CST Patient is calling back to see if a prescription for Tessalon Perles can be prescribed for her for cough. Advised that the request has been sent to . Patient verbalized understanding. JEEPER * Telephone Encounter - Lien Hensley RN [...] [place] 12/25/21 Office Visit John M[facility]dez MD [facility] [place] Showing recent visits within past 365 [...] [place] 12/25/21 Office Visit John Méndez MD [facility] Showing recent visits within past 365 days and meeting all other requirements Future Appointments No visits were found meeting these conditions. Showing future appointments within next 90 days and meeting all other requirements JEEPER documented in this encounter Plan of Treatment Upcoming Encounters Date Type Department Care Team (Late st Contact Info) Description 11/02/2024 8:15 AM PIPE JEEPER [facility] [place] [facility] [place] [address] Dakota Fabian APRN, KITCHEN RUNNER #[address] [address] 11/26/2024 11:30 AM PIPE JEEPER [facility] [place] [facility] [place] [address] Maggie Tolentino, PAC [address] [place] [address] documented as of this encounter Visit Diagnoses Diagnosis Sacroiliac joint dysfunction of both sides Disorders of sacrum Degenerative lumbar disc Degeneration of lumbar or lumbosacral intervertebral disc documented in this encounter Additional Health Concerns Infection Onset Date Last Indicated Resolved Time MRSA 03/30/2020 03/30/2020 COVID - 19 09/11/2024 09/11/2024 09/11/2024 7:21 PM PIPE JEEPER Assessment Noted Time PHQ-9 Depression Total Score: 0 12/15/19 8:53 AM PIPE JEEPER documented as of this encounter Care Teams Director Ship Relationship Specialty Start Date End Date John Méndez MD PCP - General Family Medicine 09/28/19 04/26/24 Dakota Fabian APRN, KITCHEN RUNNER #[address] [address] PCP - General Advanced Practice Nurse 04/27/24 documented as of this encounter
--- OUTSIDE RECORDS SUMMARY | 2024-10-20 04:26 | XMS_ITS | Encounter Summary ---
Author Organization [facility] Address [address] [place] [address] Phone Care Team Providers Care Electronic Train Control Technician Name Role Phone John Méndez MD Primary Care Provider [phone] Encounter Details Date Type Department Care Team (Late st Contact Info) Description 09/03/2022 10:40 AM PROPERTY AND EQUIPMENT CLERK Lab 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 No / Unsure 09/03/2022 9:02 AM PROPERTY AND EQUIPMENT CLERK documented as of this encounter Progress Notes * Radha Vora - 09/03/2022 10:40 AM CST Melinda presents for lab draw per order of Dr. Méndez dated 09/03/22. Specimen collected from left antecubital without incident. [facility] ERTY AND EQUIPMENT CLERK documented in this encounter Plan of Treatment Upcoming Encounters Date Type Department Care Team (Late st Contact Info) Description 11/02/2024 8:15 AM PROPERTY AND EQUIPMENT CLERK Office Visit [facility] [place] #2 [place] [address] Dakota Fabian APRN, COLD STRIP ROLLER #[address] [address] 11/26/2024 11:30 AM PROPERTY AND EQUIPMENT CLERK Office Visit [facility] [place] [facility] [place] [address]2 [place] [address] Maggie Tolentino, PAC [address]2 [place] [address] documented as of this encounter Procedures Procedure Name Priority Date/Time Associated Diagnosis Comments CBC WITH AUTO DIFFERENTIAL Routine 09/03/2022 10:10 AM PROPERTY AND EQUIPMENT CLERK Primary hypertension THYROID STIMULATING HORMONE (TSH) Routine 09/03/2022 10:10 AM PROPERTY AND EQUIPMENT CLERK Primary hypertension LIPID PANEL Routine 09/03/2022 10:10 AM PROPERTY AND EQUIPMENT CLERK Primary hypertension High cholesterol CMP (COMPREHENSIVE METABOLIC PANEL) Routine 09/03/2022 10:10 AM PROPERTY AND EQUIPMENT CLERK Primary hypertension High cholesterol COMPLETE BLOOD COUNT (CBC) WITH DIFF Routine 09/03/2022 10:10 AM PROPERTY AND EQUIPMENT CLERK Primary hypertension documented in this encounter Results * (ABNORMAL) CBC WITH AUTO DIFFERENTIAL (09/03/2022 10:10 AM PROPERTY AND EQUIPMENT CLERK) WBC 6.13 4.00 - 12.00 10(3)/mcL 09/03/2022 12:23 PM [facility] RBC 4.49 3.80 - 5.30 10(6)/mcL 09/03/2022 12:23 PM [facility] HEMOGLOBIN (HGB) 12.7 12.0 - 15.8 g/dL 09/03/2022 12:23 PM [facility] HEMATOCRIT (HCT) 40.6 36.0 - 47.0 % 09/03/2022 12:23 PM [facility] MCV 90.4 82.0 - 96.0 fL 09/03/2022 12:23 PM [facility] MCH 28.3 26.0 - 34.0 pg 09/03/2022 12:23 PM [facility] MCHC 31.3 31.0 - 36.0 g/dL 09/03/2022 12:23 PM [facility] PLATELET COUNT 448(H) 140 - 440 10(3)/[facility] 09/03/2022 12:23 PM [facility] RDW 13.3 11.8 - 15.5 % 09/03/2022 12:23 PM [facility] MPV 10.1 9.7 - 12.4 fL 09/03/2022 12:23 PM [facility] NEUTROPHILS 56.7 47.0 - 73.0 % 09/03/2022 12:23 PM [facility] LYMPHOCYTES 31.0 18.0 - 42.0 % 09/03/2022 12:23 PM [facility] MONOCYTES 7.2 4.0 - 12.0 % 09/03/2022 12:23 PM [facility] EOSINOPHILS 4.1 0.0 - 5.0 % 09/03/2022 12:23 PM [facility] BASOPHILS 1.0 0.0 - 1.0 % 09/03/2022 12:23 PM [facility] ABSOLUTE NEUTROPHILS 3.48 1.60 - 7.70 10(3)/[facility] 09/03/2022 12:23 PM PROPERTY AND EQUIPMENT CLERK [facility] ABSOLUTE LYMPHOCYTES 1.90 1.30 - 3.20 10(3)/[facility] 09/03/2022 12:23 PM PROPERTY AND EQUIPMENT CLERK [facility] ABSOLUTE MONOCYTES 0.44 0.20 - 1.00 10(3)/[facility] 09/03/2022 12:23 PM PROPERTY AND EQUIPMENT CLERK [facility] ABSOLUTE EOSINOPHIL 0.25 0.00 - 0.40 10(3)/[facility] 09/03/2022 12:23 PM PROPERTY AND EQUIPMENT CLERK [facility] ABSOLUTE BASOPHILS 0.06 0.00 - 0.10 10(3)/[facility] 09/03/2022 12:23 PM [facility] NRBC PER 100 WBC 0 09/03/20 12:23 PM [facility] Blood Venipuncture / Unknown 09/03/2022 10:10 AM PROPERTY AND EQUIPMENT CLERK 09/03/2022 10:10 AM [facility] us John Méndez MD HEMATOLOGY ORDERABLES Final Resu lt [facility] [address] [place] [address] * CMP (COMPREHENSIVE METABOLIC PANEL) (09/03/2022 10:10 AM PROPERTY AND EQUIPMENT CLERK) SODIUM 140 136 - 144 mmol/L 09/03/2022 1:31 PM PROPERTY AND EQUIPMENT CLERK [facility] POTASSIUM 3.7 3.5 - 5.1 mmol/L 09/03/2022 1:31 PM [facility] CHLORIDE 103 100 - 110 mmol/L 09/03/2022 1:31 PM [facility] CO2, VENOUS 28 22 - 32 mmol/L 09/03/2022 1:31 PM [facility] ANION GAP 12.7 8.0 - 20.0 mmol/L 09/03/2022 1:31 PM [facility] GLUCOSE 88 70 - 99 mg/dL 09/03/2022 1:31 PM [facility] BUN 12 6 - 20 mg/dL 09/03/2022 1:31 PM [facility] CREATININE, BLOOD 0.74 0.60 - 1.10 mg/dL 09/03/2022 1:31 PM [facility] BUN/CREATININE RATIO 16 12 - 20 ratio 09/03/2022 1:31 PM [facility] TOTAL PROTEIN 7.3 6.0 - 8.3 g/dL 09/03/2022 1:31 PM [facility] ALBUMIN 4.4 3.5 - 5.2 g/dL 09/03/2022 1:31 PM [facility] Comment: The colormetric methods used for the determination of Albumin may lead to falsely elevated test results in patients suffering from renal failure or insufficiency due to interference with other proteins. A/G RATIO 1.5 1.0 - 2.0 09/03/2022 1:31 PM [facility] CALCIUM 9.4 8.9 - 10.3 mg/dL 09/03/2022 1:31 PM [facility] T BILI <0.3 <=1.2 mg/dL 09/03/2022 1:31 PM [facility] SGOT (AST) 23 <=32 U/L 09/03/2022 1:31 PM [facility] SGPT (ALT) 16 <=41 U/L 09/03/2022 1:31 PM [facility] ALKALINE PHOSPHATASE 83 35 - 105 U/L 09/03/2022 1:31 PM [facility] IS THE PATIENT REQUIRED TO BE FASTING? No 09/03/2022 1:31 PM [facility] GFR, ESTIMATED >60 >=60 09/03/2022 1:31 PM [facility] Comment: Creatinine Clearance is the preferred criteria for selecting drug dose adjustments in renally impaired patients. ??The GFR is provided as additional pertinent clinical information. GFR is reported in mL/min/1.73 sq m. Calculation based on the Chronic Kidney Disease Epidemiology Collaboration (CKD- EPI) equation refit without adjustment for race. GFR, EST. >60 >=60 022 1:31 PM PROPERTY AND EQUIPMENT CLERK [facility] GFR, EST. NONAFRICAN >60 >=60 09/03/2022 1:31 PM PROPERTY AND EQUIPMENT CLERK [facility] Blood Venipuncture / Unknown 09/03/2022 10:10 AM PROPERTY AND EQUIPMENT CLERK 09/03/2022 10:10 AM PROPERTY AND EQUIPMENT CLERK us John Méndez MD CHEMISTRY ORDERABLES Final Resul t [facility] [address] [place] [address] * (ABNORMAL) LIPID PANEL (09/03/2022 10:10 AM PROPERTY AND EQUIPMENT CLERK) CHOLESTEROL 216(H) <=200 mg/dL 09/03/2022 1:31 PM PROPERTY AND EQUIPMENT CLERK [facility] TRIGLYCERIDES 226(H) <150 mg/dL 09/03/2022 1:31 PM [facility] HDL CHOLESTEROL 56.2 >40 mg/dL 1:31 PM PROPERTY AND EQUIPMENT CLERK [facility] LDL 115 5 - 130 mg/dL 09/03/2022 1:31 PM [facility] VLDL 45 5 - 55 mg/dL 09/03/2022 1:31 PM [facility] CHOL/HDL RATIO 3.8 0.0 - 4.4 09/03/2022 1:31 PM [facility] NON-HDL CHOLESTEROL 159.8(H) <130 mg/dL 09/03/2022 1:31 PM [facility] IS THE PATIENT REQUIRED TO BE FASTING? No 09/03/2022 1:31 PM PROPERTY AND EQUIPMENT CLERK [facility] Blood Venipuncture / Unknown 09/03/2022 10:10 AM PROPERTY AND EQUIPMENT CLERK 09/03/2022 10:10 AM PROPERTY AND EQUIPMENT CLERK us John Méndez MD CHEMISTRY ORDERABLES Final Resul t Performing Organization Address City/[facility]/ZIP Co de Phone Number [facility] [address] [place] [address] * THYROID STIMULATING HORMONE (TSH) (09/03/2022 10:10 AM PROPERTY AND EQUIPMENT CLERK) TSH 2.140 0.270 - 4.200 mIU/L 09/03/2022 1:31 PM PROPERTY AND EQUIPMENT CLERK [facility] Blood Venipuncture / Unknown 09/03/2022 10:10 AM PROPERTY AND EQUIPMENT CLERK 09/03/2022 10:10 AM PROPERTY AND EQUIPMENT CLERK us John Méndez MD CHEMISTRY ORDERABLES Final Resul t Performing Organization Address City/[facility] Co de Phone Number [facility] [address] [place] [address] documented in this encounter Visit Diagnoses Diagnosis Primary hypertension Unspecified essential hypertension High cholesterol Pure hypercholesterolemia documented in this encounter Additional Health Concerns Infection Onset Date Last Indicated Resolved Time MRSA 03/30/2020 03/30/2020 Assessment Noted Time PHQ-9 Depression Total Score: 0 12/15/19 21 8:53 AM PROPERTY AND EQUIPMENT CLERK documented as of this encounter Care Teams Electronic Train Control Technician Relationship Specialty Start Date End Date John Méndez MD PCP - General Family Medicine 09/28/19 04/26/24 documented as of this encounter
--- OUTSIDE RECORDS SUMMARY | 2024-10-20 04:26 | XMS_ITS | Encounter Summary ---
Author Organization [facility] Address [address] 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 on file [...] [place] 12/25/21 Office Visit John [facility] [place] Showing recent visits within past 365 days and meeting all other requirements Future Appointments Date Type Provider Dept 01/02/23 Appointment John Méndez MD [facility] Showing future appointments within next 90 days and meeting all other requirements Passed - ALT less than 90 and AST less than 55 on record in past 12 months SGOT (AST) Date Value Ref Range Status 09/03/2022 23 <=32 U/L Final SGPT (ALT) Date Value Ref Range Status 09/03/2022 16 <=41 U/L Final ENING MANAGER documented in this encounter Plan of Treatment Upcoming Encounters Date Type Department Care Team (Late st Contact Info) Description 11/02/2024 8:15 AM GARDENING MANAGER Office [facility] [place] [address] Dakota Fabian APRN, VOLCANOLOGIST #[address] [address] 11/26/2024 11:30 AM GARDENING MANAGER Office Visit [facility] - Family Medicine [facility] [address] [place] [address] Maggie Tolentino PAC [address] [place] [address] documented as of this encounter Visit Diagnoses Diagnosis Degenerative lumbar disc Degeneration of lumbar or lumbosacral intervertebral disc documented in this encounter Additional Health Concerns Infection Onset Date Last Indicated Resolved Time MRSA 03/30/2020 03/30/2020 COVID - 19 09/11/2024 09/11/2024 09/11/2024 7:21 PM GARDENING MANAGER Assessment Noted Time PHQ-9 Depression Total Score: 0 12/15/19 8:53 AM GARDENING MANAGER documented as of this encounter Care Teams Cook Relief Relationship Specialty Start Date End Date John Méndez MD PCP - General Family Medicine 09/28/19 04/26/24 Dakota Fabian, MATERIAL PLANNER, VOLCANOLOGIST [address] [address] PCP - General Advanced Practice Nurse 04/27/24 documented as of this encounter
--- OUTSIDE RECORDS SUMMARY | 2024-10-20 04:26 | XMS_ITS | Encounter Summary ---
Author Organization [facility] Address [address] [facility] 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 Not on file documented as of this encounter Miscellaneous Notes * Telephone Encounter - Antoinette Arora RN - 06/04/2024 2:46 PM CDT No refills to cancel * Telephone Encounter - Antoinette Arora RN - 06/04/2024 2:46 PM CDT No refills to cancel * Telephone Encounter - Linda Bunch RN - 11/05/2023 2:55 PM FACILITIES FLIGHT CHECK PILOT Medication failed the protocol, provider to review [...] [place] 01/03/23 Office Visit Maggie Tolentino PAC [facility] [place] Showing recent visits within past [...] Dept 02/20/23 Office Visit [facility] [place] 01/03/23 Office Visit Maggie Tolentino PAC [facility] [place] Showing recent visits within past 365 days and meeting all other requirements Future Appointments No visits were found meeting these conditions. Showing future appointments within next 90 days and meeting all other requirements LITIES FLIGHT CHECK PILOT documented in this encounter Plan of Treatment Upcoming Encounters Date Type Department Care Team (Late st Contact Info) Description 11/02/2024 8:15 AM FACILITIES FLIGHT CHECK PILOT Office Visit [facility] [address]2 [place] [address] Dakota Fabian APRN, CHUCKING AND SAWING MACHINE OPERATOR #[address] [address] 11/26/2024 11:30 AM FACILITIES FLIGHT CHECK PILOT Office Visit [facility] [place] [address] Maggie Tolentino PAC [address] [place] [address] documented as of this encounter Visit Diagnoses Diagnosis Primary hypertension Unspecified essential hypertension High cholesterol Pure hypercholesterolemia documented in this encounter Additional Health Concerns Infection Onset Date Last Indicated Resolved Time MRSA 03/30/2020 03/30/2020 COVID - 19 09/11/2024 09/11/2024 09/11/2024 7:21 PM FACILITIES FLIGHT CHECK PILOT Assessment Noted Time PHQ-9 Depression Total Score: 0 01/04/20 23 2:56 PM CDT documented as of this encounter Care Teams Technical Trainer Relationship Specialty Start Date End Date John Méndez MD PCP - General Family Medicine 09/28/19 04/26/24 Dakota Fabian APRN, CHUCKING AND SAWING MACHINE OPERATOR #[address] [address] PCP - General Advanced Practice Nurse 04/27/24 documented as of this encounter
--- OUTSIDE RECORDS SUMMARY | 2024-10-20 04:26 | XMS_ITS | Encounter Summary ---
Author Organization [facility] Address [address] 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 #2 [place] [address] Dakota Fabian, THOM, HELP DESK INTERNSHIP #[address] [address] 11/26/2024 11:30 AM DIAGNOSTIC TECH Office [facility] #2 [place] [address] Maggie Tolentino, PAC [address] [place] [address] documented as of this encounter Visit Diagnoses Diagnosis Sacroiliac joint dysfunction of both sides Disorders of sacrum Degenerative lumbar disc Degeneration of lumbar or lumbosacral intervertebral disc documented in this encounter Additional Health Concerns Infection Onset Date Last Indicated Resolved Time MRSA 03/30/2020 03/30/2020 COVID - 19 09/11/2024 09/11/2024 09/11/2024 7:21 PM DIAGNOSTIC TECH Assessment Noted Time PHQ-9 Depression Total Score: 0 12/15/19 8:53 AM DIAGNOSTIC TECH documented as of this encounter Care Teams City Planning Teacher Relationship Specialty Start Date End Date John Méndez MD PCP - General Family Medicine 09/28/19 04/26/24 Dakota Fabian, PLASTIC BLOCK BOILER RELINER, HELP DESK INTERNSHIP #[address] [address] [address] PCP - General Advanced Practice Nurse 04/27/24 documented as of this encounter
--- OUTSIDE RECORDS SUMMARY | 2024-10-20 04:26 | XMS_ITS | Encounter Summary ---
Author Organization [facility] Address [address] [facility] 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 file Not [...] st Contact Info) Description 11/02/2024 8:15 AM DAIRY EQUIPMENT REPAIRER Office Visit [facility] [address]2 [place] [address] Dakota Fabian APRN, FINANCE ASSISTANT #[address] [address] 11/26/2024 11:30 AM DAIRY EQUIPMENT REPAIRER Office Visit [facility] [address] [place] [address] Maggie Tolentino, PAC [address] [place] [address] documented as of this encounter Visit Diagnoses Not on filedocumented in this encounter Additional Health Concerns Infection Onset Date Last Indicated Resolved Time MRSA 03/30/2020 03/30/2020 COVID - 19 09/11/2024 09/11/2024 09/11/2024 7:21 PM DAIRY EQUIPMENT REPAIRER Assessment Noted Time PHQ-9 Depression Total Score: 0 01/04/20 23 2:56 PM CDT documented as of this encounter Care Teams Preservationist Relationship Specialty Start Date End Date John Méndez MD PCP - General Family Medicine 09/28/19 04/26/24 Dakota Fabian, QUALITY ASSURANCE QA LAB TECHNICIAN, FINANCE ASSISTANT [address] [place] [address] PCP - General Advanced Practice Nurse 04/27/24 documented as of this encounter
--- OUTSIDE RECORDS SUMMARY | 2024-10-20 04:27 | XMS_ITS | Encounter Summary ---
Author Organization [facility] Address [address] [facility] 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 [...] Outpatient Visits 1 month ago Essential hypertension [facility] John Delarosa MD 3 months ago Acute non-recurrent maxillary sinusitis [facility] John Delarosa MD 5 months ago Moderate episode of recurrent major depressive disorder (HCC) [facility] John Delarosa MD 6 months ago Moderate episode of recurrent major depressive disorder (HCC) [facility] John Delarosa MD 7 months ago Mixed hyperlipidemia [facility] John Delarosa MD Upcoming Appointments DAIRY HAND - Recent and Past Visits Recent Visits [...] [place] 03/30/20 Office Visit John Méndez MD [facility] [place] Showing recent visits within past 460 [...] st Contact Info) Description 11/02/2024 8:15 AM VOUCHER EXAMINER Office Visit [facility] #2 [place] [address] Dakota Fabian APRN, AUDIT CONTROL CLERK #[address] [address] 11/26/2024 11:30 AM VOUCHER EXAMINER Office Visit [facility] #2 [place] [address] Maggie Tolentino, PAC [address] [place] [address] documented as of this encounter Visit Diagnoses Diagnosis Sacroiliac joint dysfunction of both sides Disorders of sacrum Degenerative lumbar disc Degeneration of lumbar or lumbosacral intervertebral disc documented in this encounter Additional Health Concerns Infection Onset Date Last Indicated Resolved Time MRSA 03/30/2020 03/30/2020 COVID - 19 09/11/2024 09/11/2024 09/11/2024 7:21 PM VOUCHER EXAMINER Assessment Noted Time PHQ-9 Depression Total Score: 0 12/15/19 8:53 AM VOUCHER EXAMINER documented as of this encounter Care Teams Mover Helper Relationship Specialty Start Date End Date John Méndez MD PCP - General Family Medicine 09/28/19 04/26/24 Dakota Fabian APRN, AUDIT CONTROL CLERK [address] [place] [address] PCP - General Advanced Practice Nurse 04/27/24 documented as of this encounter
--- OUTSIDE RECORDS SUMMARY | 2024-10-20 04:27 | XMS_ITS | Encounter Summary ---
Author Organization [facility] Address [address] [facility] 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 Not on file Not [...] st Contact Info) Description 11/02/2024 8:15 AM ELECTRICAL CONSTRUCTION PROJECT MANAGER [facility] [place] [address] Dakota Fabian APRN, GAS METER READER #[address] [address] 11/26/2024 11:30 AM ELECTRICAL CONSTRUCTION PROJECT MANAGER [facility] [place] [facility] [place] [address] Maggie Tolentino, PAC [address] [place] [address] documented as of this encounter Visit Diagnoses Not on filedocumented in this encounter Additional Health Concerns Infection Onset Date Last Indicated Resolved Time MRSA 03/30/2020 03/30/2020 Assessment Noted Time PHQ-9 Depression Total Score: 0 12/15/19 21 8:53 AM ELECTRICAL CONSTRUCTION PROJECT MANAGER documented as of this encounter Care Teams Refrigeration Lead Relationship Specialty Start Date End Date John Méndez MD PCP - General Family Medicine 09/28/19 04/26/24 documented as of this encounter
--- OUTSIDE RECORDS SUMMARY | 2024-10-20 04:27 | XMS_ITS | Encounter Summary ---
Author Organization [facility] Address [address] 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 file [...] by a MOLECULAR, NON-PCR method Resulting Agency [facility] documented in this encounter Plan of Treatment Upcoming Encounters Date Type Department Care Team (Late st Contact Info) Description 11/02/2024 8:15 AM ELECTRICAL SYSTEMS DESIGN ENGINEER Office Visit [facility] [place] [address] [place] [address] Dakota Fabian APRN, GI TECHNICIAN [address] [address] 11/26/2024 11:30 AM ELECTRICAL SYSTEMS DESIGN ENGINEER Office Visit [facility] [address] [place] [address] Maggie Tolentino, PAC [address] [place] [address] documented as of this encounter Visit Diagnoses Not on filedocumented in this encounter Additional Health Concerns Infection Onset Date Last Indicated Resolved Time MRSA 03/30/2020 03/30/2020 Assessment Noted Time PHQ-9 Depression Total Score: 0 12/15/19 21 8:53 AM ELECTRICAL SYSTEMS DESIGN ENGINEER documented as of this encounter Care Teams Group President Relationship Specialty Start Date End Date John Méndez MD PCP - General Family Medicine 09/28/19 04/26/24 documented as of this encounter
--- OUTSIDE RECORDS SUMMARY | 2024-10-20 04:27 | XMS_ITS | Encounter Summary ---
Author Organization [facility] Address [address] [facility] 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 Chronic Medication Refill Standing Order for Pediatricand [...] [place] 11/15/20 Office Visit John Méndez MD [facility] [place] Showing recent visits within past 365 [...] st Contact Info) Description 11/02/2024 8:15 AM HOME VISITS NURSE Office Visit [facility] [address] [place] [address] Dakota Fabian APRN, ECONOMIC SPECIALIST [address] [address] 11/26/2024 11:30 AM HOME VISITS NURSE Office Visit [facility] [address] [place] [address] Maggie Tolentino, PAC [address] [place] [address] documented as of this encounter Visit Diagnoses Diagnosis Chronic sinusitis, unspecified location documented in this encounter Additional Health Concerns Infection Onset Date Last Indicated Resolved Time MRSA 03/30/2020 03/30/2020 Assessment Noted Time PHQ-9 Depression Total Score: 0 12/15/19 21 8:53 AM HOME VISITS NURSE documented as of this encounter Care Teams Black Puller Relationship Specialty Start Date End Date John Méndez MD PCP - General Family Medicine 09/28/19 04/26/24 documented as of this encounter
--- OUTSIDE RECORDS SUMMARY | 2024-10-20 04:27 | XMS_ITS | Encounter Summary ---
Author Organization [facility] Address [address] [facility] 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 Not on [...] [place] 05/01/21 Office Visit John M[facility]dez MD [facility] [place] Showing recent visits within past 365 days and meeting all other requirements Future Appointments Date Type Provider Dept 04/29/22 Appointment John Méndez MD [facility] Showing future appointments within next 90 days and meeting all other requirements documented in this encounter Plan of Treatment Upcoming Encounters Date Type Department Care Team (Late st Contact Info) Description 11/02/2024 8:15 AM CEMETERY WARDEN Office Visit [facility] - [place] [address] [place] [address] Dakota Fabian APRN, CANDLE MOLDER HAND [address] [address] 11/26/2024 11:30 AM CEMETERY WARDEN Office Visit [facility] Family [facility] [address] [place] [address] Maggie Tolentino, PAC [address] [place] [address] documented as of this encounter Visit Diagnoses Diagnosis Sacroiliac joint dysfunction of both sides Disorders of sacrum Degenerative lumbar disc Degeneration of lumbar or lumbosacral intervertebral disc documented in this encounter Additional Health Concerns Infection Onset Date Last Indicated Resolved Time MRSA 03/30/2020 03/30/2020 COVID - 19 09/11/2024 09/11/2024 09/11/2024 7:21 PM CEMETERY WARDEN Assessment Noted Time PHQ-9 Depression Total Score: 0 12/15/19 8:53 AM CEMETERY WARDEN documented as of this encounter Care Teams Education Trainer Relationship Specialty Start Date End Date John Méndez MD PCP - General Family Medicine 09/28/19 04/26/24 Dakota Fabian APRN, CANDLE MOLDER HAND [address] [address] PCP - General Advanced Practice Nurse 04/27/24 documented as of this encounter
--- OUTSIDE RECORDS SUMMARY | 2024-10-20 04:27 | XMS_ITS | Encounter Summary ---
Author Organization [facility] Address [address] [facility] 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 documented in this encounter Plan of Treatment Upcoming Encounters Date Type Department Care Team (Late st Contact Info) Description 11/02/2024 8:15 AM SUPERVISOR WATER SOFTENER SERVICE Office Visit [facility] [place] [address] Dakota Fabian APRN, SKULL SPLITTER [address] [address] 11/26/2024 11:30 AM SUPERVISOR WATER SOFTENER SERVICE Office Visit [facility] [address] [place] [address] Maggie Tolentino, PAC [address] [place] [address] documented as of this encounter Visit Diagnoses Not on filedocumented in this encounter Additional Health Concerns Infection Onset Date Last Indicated Resolved Time MRSA 03/30/2020 03/30/2020 Assessment Noted Time PHQ-9 Depression Total Score: 0 12/15/19 21 8:53 AM SUPERVISOR WATER SOFTENER SERVICE documented as of this encounter Care Teams Rainbow Trout Farm Manager Relationship Specialty Start Date End Date Julisa Zuluaga MD PCP - General Family Medicine 09/28/19 04/26/24 documented as of this encounter
--- OUTSIDE RECORDS SUMMARY | 2024-10-20 04:27 | XMS_ITS | Encounter Summary ---
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 [...] Contact Info) Description 11/02/2024 8:15 AM FIRE SUPPRESSION CAPTAIN Office Visit [facility] Medical Group - Family Medicine [facility] [address] [place] [address] Dakota Fabian, BAR FINISH OPERATOR, RESIDENT CARE SUPERVISOR #[address] [address] 11/26/2024 11:30 AM FIRE SUPPRESSION CAPTAIN Office Visit [facility] - [facility] - [place] [address] [place] [address] Maggie Tolentino, [facility] [address] [place] [address] documented as of this encounter Visit Diagnoses Not on filedocumented in this encounter Additional Health Concerns Infection Onset Date Last Indicated Resolved Time MRSA 03/30/2020 03/30/2020 Assessment Noted Time PHQ-9 Depression Total Score: 0 12/15/19 21 8:53 AM FIRE SUPPRESSION CAPTAIN documented as of this encounter Care Teams Applications Project Manager Relationship Specialty Start Date End Date John Méndez MD PCP - General Family Medicine 09/28/19 04/26/24 documented as of this encounter
--- OUTSIDE RECORDS SUMMARY | 2024-10-20 04:27 | XMS_ITS | Encounter Summary ---
Author Organization [facility] Address [address] [facility] 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 She stated she won't. She [...] symptoms.) Protocols used: CORONAVIRUS (COVID-19) DIAGNOSED OR [id number] documented in this encounter Plan of Treatment Upcoming Encounters Date Type Department Care Team (Late st Contact Info) Description 11/02/2024 8:15 AM MEDICAL VOUCHER CLERK Office Visit [facility] - Family [facility] [address]2 [place] [address] Dakota Fabian, BLOW MOLD OPERATOR, SMUDGER #[address] [address] 11/26/2024 11:30 AM MEDICAL VOUCHER CLERK Office Visit [facility] - Family [facility] [address]2 [place] [address] Maggie Tolentino, PAC [address] [place] [address] documented as of this encounter Visit Diagnoses Not on filedocumented in this encounter Additional Health Concerns Infection Onset Date Last Indicated Resolved Time MRSA 03/30/2020 03/30/2020 Assessment Noted Time PHQ-9 Depression Total Score: 0 12/15/19 21 8:53 AM MEDICAL VOUCHER CLERK documented as of this encounter Care Teams Mandolin Repair Person Relationship Specialty Start Date End Date John Méndez MD PCP - General Family Medicine 09/28/19 04/26/24 documented as of this encounter
--- OUTSIDE RECORDS SUMMARY | 2024-10-20 04:27 | XMS_ITS | Encounter Summary ---
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 Not on file Not [...] st Contact Info) Description 11/02/2024 8:15 AM TAR HEAT EXCHANGER CLEANER Office Visit [facility] Medical Group - Family Medicine [facility] [address] [place] [address] Dakota Fabian, SURVEILLANCE OFFICER, COMMERCIAL DEVELOPMENT MANAGER #[address] [address] 11/26/2024 11:30 AM TAR HEAT EXCHANGER CLEANER Office Visit [facility] - [place] [address] [place] [address] Maggie Tolentino, PAC [address] [place] [address] documented as of this encounter Visit Diagnoses Not on filedocumented in this encounter Additional Health Concerns Infection Onset Date Last Indicated Resolved Time MRSA 03/30/2020 03/30/2020 Assessment Noted Time PHQ-9 Depression Total Score: 0 12/15/19 21 8:53 AM TAR HEAT EXCHANGER CLEANER documented as of this encounter Care Teams Flight Teacher Relationship Specialty Start Date End Date John Méndez MD PCP - General Family Medicine 09/28/19 04/26/24 documented as of this encounter
--- OUTSIDE RECORDS SUMMARY | 2024-10-20 04:27 | XMS_ITS | Encounter Summary ---
Author Organization [facility] Address [address] [facility] 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 She is now out of her tylenol 3 and is wanting to know why it was not refilled. HATCHERY SUPERVISOR * Telephone Encounter - Yadira Kraft RN - 09/21/2021 3:37 PM CST Patient calling to check the status of her refill request. Advised this request is currently pending. Patient states she is currently out of medication. Pharmacy and allergies confirmed with patient. Please review and refill if appropriate. HATCHERY SUPERVISOR * Telephone Encounter - Antoinette Arora RN [...] Outpatient Visits 4 months ago Essential hypertension [facility] John Delarosa MD 6 months ago Acute non-recurrent maxillary sinusitis [facility] John Delarosa MD 8 months ago Moderate episode of recurrent major depressive disorder (HCC) [facility] John Delarosa MD 9 months ago Moderate episode of recurrent major depressive disorder (HCC) [facility] John Delarosa MD 10 months ago Mixed [facility] John Méndez MD Upcoming Appointments PARTS PULLER - Recent and Past Visits Recent Visits Date Type Provider Dept 05/01/21 Office Visit John Méndez MD [facility] 03/14/21 Office Visit John Méndez MD [facility] 01/11/21 Office Visit John Méndez MD [facility] 12/14/20 Office Visit John Méndez MD [facility] 11/15/20 Office Visit John Méndez MD [facility] [place] Showing recent visits within past 460 days with a meds authorizing provider and meeting all other requirements Future Appointments No visits were found meeting these conditions. Showing future appointments within next 90 days with a meds authorizing provider and meeting all other requirements HATCHERY SUPERVISOR documented in this encounter Plan of Treatment Upcoming Encounters Date Type Department Care Team (Late st Contact Info) Description 11/02/2024 8:15 AM FISH HATCHERY SUPERVISOR Office Visit [facility] [address] [place] [address] Dakota Fabian APRN, CENTERLESS GRINDING MACHINE ADJUSTER #[address] [address] 11/26/2024 11:30 AM FISH HATCHERY SUPERVISOR Office Visit [facility] [address] [place] [address] Maggie Tolentino PAC [address] [place] [address] documented as of this encounter Visit Diagnoses Diagnosis Sacroiliac joint dysfunction of both sides Disorders of sacrum Degenerative lumbar disc Degeneration of lumbar or lumbosacral intervertebral disc documented in this encounter Additional Health Concerns Infection Onset Date Last Indicated Resolved Time MRSA 03/30/2020 03/30/2020 COVID - 19 09/11/2024 09/11/2024 09/11/2024 7:21 PM FISH HATCHERY SUPERVISOR Assessment Noted Time PHQ-9 Depression Total Score: 0 12/15/19 21 8:53 AM FISH HATCHERY SUPERVISOR documented as of this encounter Care Teams Scouring Train Operator Chief Relationship Specialty Start Date End Date John Méndez MD PCP - General Family Medicine 09/28/19 04/26/24 Dakota Fabian APRN, CENTERLESS GRINDING MACHINE ADJUSTER [address] [place] [id number] PCP - General Advanced Practice Nurse 04/27/24 documented as of this encounter
--- OUTSIDE RECORDS SUMMARY | 2024-10-20 04:27 | XMS_ITS | Encounter Summary ---
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 [...] st Contact Info) Description 11/02/2024 8:15 AM BOOK BINDER Office Visit [facility] Medical Group - Family Medicine [facility] [address] [place] [address] Dakota Fabian, FLOOR REPRESENTATIVE, V/STOL LANDING SIGNAL OFFICER [address] [address] 11/26/2024 11:30 AM BOOK BINDER Office Visit [facility] - Family [facility] - [place] [address] [place] [address] Maggie Tolentino, [facility] #2 [place] [address] documented as of this encounter Visit Diagnoses Not on filedocumented in this encounter Additional Health Concerns Infection Onset Date Last Indicated Resolved Time MRSA 03/30/2020 03/30/2020 Assessment Noted Time PHQ-9 Depression Total Score: 0 12/15/19 21 8:53 AM BOOK BINDER documented as of this encounter Care Teams Rolling Attendant Relationship Specialty Start Date End Date John Méndez MD PCP - General Family Medicine 09/28/19 04/26/24 documented as of this encounter
--- OUTSIDE RECORDS SUMMARY | 2024-10-20 04:27 | XMS_ITS | Encounter Summary ---
Author Organization [facility] Address [address] [facility] [place] [address] Phone Care Team Providers Care Framing Mill Operator Helper Name Role Phone John Méndez MD Primary Care Provider Reason for Referral * Radiology Services (Routine) - Closed Specialty Diagnoses / Procedures Referred By Contac t Referred To Contact Radiology Diagnoses Encounter for screening mammogram for malignant neoplasm of breast Procedures MARCO A SCREENING BILATERAL DIGITAL W CAD W SHENG John Méndez MD Phone: tel: fax: Referral ID Status Reason Start Date Expiration Date Visits Re quested Visits Authorized [id number] Closed 07/26/2021 1 1 Encounter Details Date Type Department Care Team (Late st Contact Info) Description 07/26/2021 Transcribe Orders [facility] Central Scheduling [address] [place] [id number] John Méndez MD [address] [place] [address] Encounter for screening mammogram for malignant neoplasm [...] 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. ?? BREAST TISSUE:The tissue of both breasts [...] Killian Sandoval M.D. ? ll/penrad:08/03/2021 11:33:14 ?? Product Tester Fiberglass(s): Nellie ??RT Pam(R)(M), [facility] letter sent: Normal Exam ?? Reading location: [facility] BI-RADS: 2 Benign Procedure Note Killian [...] to exams dated: 07/22/2020, 09/05/2018, and 02/13/[address] [facility]. BREAST TISSUE:The tissue of both breasts is [...] exam. Electronically signed by: Killian barron/antoine:08/03/2021 11:33:14 Product Tester Fiberglass(s): RT Freddie(R)(M), [facility] letter sent: Normal Exam Reading location: [facility] BI-RADS: 2 Benign us John Méndez [...] Total Score: 0 12/15/19 21 8:53 AM PASTRY SOUS CHEF documented as of this encounter Care Teams Framing Mill Operator Helper Relationship Specialty Start Date End Date John Méndez MD PCP - General Family Medicine 09/28/19 04/26/24 documented as of this encounter
--- OUTSIDE RECORDS SUMMARY | 2024-10-20 04:27 | XMS_ITS | Encounter Summary ---
Author Organization [facility] Address [address] [facility] 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 No / Unsure 10/09/2021 7:12 AM LENDING ADVISOR documented as of this encounter Miscellaneous Notes * Telephone Encounter - Antoinette Arora RN - 10/09/2021 3:02 PM CST Name from pharmacy: ESCITALOPRAM 10 MG TABLET Will file in chart as: escitalopram (LEXAPRO) 10 MG Tablet The original prescription was discontinued on 12/14/2020 by John Méndez MD Patient is taking 20 mg daily - see current medication list ING ADVISOR documented in this encounter Plan of Treatment Upcoming Encounters Date Type Department Care Team (Late st Contact Info) Description 11/02/2024 8:15 AM LENDING ADVISOR Office [facility] #2 [place] [address] Dakota Fabian APRN, EYELET CUTTER #[address] [address] 11/26/2024 11:30 AM LENDING ADVISOR Office [facility] #2 [place] [address] Maggie Tolentino, PAC #2 [place] [address] documented as of this encounter Visit Diagnoses Not on filedocumented in this encounter Additional Health Concerns Infection Onset Date Last Indicated Resolved Time MRSA 03/30/2020 03/30/2020 COVID - 19 09/11/2024 09/11/2024 09/11/2024 7:21 PM LENDING ADVISOR Assessment Noted Time PHQ-9 Depression Total Score: 0 12/15/19 21 8:53 AM LENDING ADVISOR documented as of this encounter Care Teams Kindergarten Tutor Relationship Specialty Start Date End Date John Méndez MD PCP - General Family Medicine 09/28/19 04/26/24 Dakota Fabian APRN, EYELET CUTTER #[address] [address] PCP - General Advanced Practice Nurse 04/27/24 documented as of this encounter
--- OUTSIDE RECORDS SUMMARY | 2024-10-20 04:27 | XMS_ITS | Encounter Summary ---
Author Organization [facility] Address [address] [facility] 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 Not on file Not [...] st Contact Info) Description 11/02/2024 8:15 AM FORK LIFT TECHNICIAN Office Visit [facility] [place] [address]2 [place] [address] Dakota Fabian APRN, LOAN SERVICES PROFESSIONAL [address] [address] 11/26/2024 11:30 AM FORK LIFT TECHNICIAN Office Visit [facility] [place] #2 [place] [address] Maggie Tolentino, [facility] #2 [place] [address] documented as of this encounter Visit Diagnoses Diagnosis Sacroiliac joint dysfunction of both sides Disorders of sacrum Degenerative lumbar disc Degeneration of lumbar or lumbosacral intervertebral disc documented in this encounter Additional Health Concerns Infection Onset Date Last Indicated Resolved Time MRSA 03/30/2020 03/30/2020 COVID - 19 09/11/2024 09/11/2024 09/11/2024 7:21 PM FORK LIFT TECHNICIAN Assessment Noted Time PHQ-9 Depression Total Score: 0 12/15/19 8:53 AM FORK LIFT TECHNICIAN documented as of this encounter Care Teams Community Action Worker Relationship Specialty Start Date End Date John Méndez MD PCP - General Family Medicine 09/28/19 04/26/24 Dakota Fabian, HAT BLOCKING MACHINE OPERATOR, LOAN SERVICES PROFESSIONAL #[address] [address] PCP - General Advanced Practice Nurse 04/27/24 documented as of this encounter
--- OUTSIDE RECORDS SUMMARY | 2024-10-20 04:27 | XMS_ITS | Encounter Summary ---
Author Organization [facility] Address [address] 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 Call transferred to the medication management line at this time. documented in this encounter Plan of Treatment Upcoming Encounters Date Type Department Care Team (Late st Contact Info) Description 11/02/2024 8:15 AM FARM EQUIPMENT MAINTENANCE SUPERVISOR Office Visit [facility] - [place] [address] [place] [address] Dakota Fabian, PARTS DEPARTMENT MANAGER, JIG GRINDER #[address] [address] 11/26/2024 11:30 AM FARM EQUIPMENT MAINTENANCE SUPERVISOR Office Visit [facility] - [place] [address]2 [place] [address] Maggie Tolentino, [facility] #2 [facility] [place] [address] documented as of this encounter Visit Diagnoses Diagnosis Sacroiliac joint dysfunction of both sides Disorders of sacrum Degenerative lumbar disc Degeneration of lumbar or lumbosacral intervertebral disc documented in this encounter Additional Health Concerns Infection Onset Date Last Indicated Resolved Time MRSA 03/30/2020 03/30/2020 Assessment Noted Time PHQ-9 Depression Total Score: 0 12/15/19 21 8:53 AM FARM EQUIPMENT MAINTENANCE SUPERVISOR documented as of this encounter Care Teams Spiral Runner Relationship Specialty Start Date End Date John Méndez MD PCP - General Family Medicine 09/28/19 04/26/24 documented as of this encounter
--- OUTSIDE RECORDS SUMMARY | 2024-10-20 04:27 | XMS_ITS | Encounter Summary ---
Author Organization [facility] Address [address] 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 Call transferred to medication management line in the office at this time. documented in this encounter Plan of Treatment Upcoming Encounters Date Type Department Care Team (Late st Contact Info) Description 11/02/2024 8:15 AM COMMUNITY RELATIONS OFFICER Office Visit [facility] [place] [place] [address]2 [place] [address] Dakota Fabian APRN, OPTIONS ADVISOR #[address] [address] 11/26/2024 11:30 AM COMMUNITY RELATIONS OFFICER Office Visit [facility] [place] [place] [address] [place] [address] Maggie Tolentino, PAC [address] [place] [address] documented as of this encounter Visit Diagnoses Not on filedocumented in this encounter Additional Health Concerns Infection Onset Date Last Indicated Resolved Time MRSA 03/30/2020 03/30/2020 Assessment Noted Time PHQ-9 Depression Total Score: 0 12/15/19 21 8:53 AM COMMUNITY RELATIONS OFFICER documented as of this encounter Care Teams Scientific Advisor Relationship Specialty Start Date End Date John Méndez MD PCP - General Family Medicine 09/28/19 04/26/24 documented as of this encounter
--- OUTSIDE RECORDS SUMMARY | 2024-10-20 04:27 | XMS_ITS | Encounter Summary ---
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 on file Not [...] st Contact Info) Description 11/02/2024 8:15 AM STATEMENT REQUEST CLERK Office Visit [facility] Medical Group - Family Medicine [facility] #2 [place] [address] Dakota Fabian, CLINICAL CYTOPATHOLOGIST, ELECTRO MECHANICAL DESIGNER #[address] [address] 11/26/2024 11:30 AM STATEMENT REQUEST CLERK Office Visit [facility] - [place] #[address] [place] [address] Maggie Tolentino, PAC [address]2 [place] [address] documented as of this encounter Visit Diagnoses Not on filedocumented in this encounter Additional Health Concerns Infection Onset Date Last Indicated Resolved Time MRSA 03/30/2020 03/30/2020 Assessment Noted Time PHQ-9 Depression Total Score: 0 12/15/19 21 8:53 AM STATEMENT REQUEST CLERK documented as of this encounter Care Teams Derrick Hand Relationship Specialty Start Date End Date John Méndez MD PCP - General Family Medicine 09/28/19 04/26/24 documented as of this encounter
--- OUTSIDE RECORDS SUMMARY | 2024-10-20 04:27 | XMS_ITS | Encounter Summary ---
Author Organization [facility] Address [address] [facility] 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 Showing future appointments within next 90 days and meeting all other requirements documented in this encounter Plan of Treatment Upcoming Encounters Date Type Department Care Team (Late st Contact Info) Description 11/02/2024 8:15 AM HAT BLOCK MAKER Office Visit [facility] [place] [address] [place] [address] Dakota Fabian APRN, EDGING MACHINE SETTER #[address] [address] 11/26/2024 11:30 AM HAT BLOCK MAKER Office Visit [facility] [place] [address] [place] [address] Maggie Tolentino, [facility] #2 [place] [address] documented as of this encounter Visit Diagnoses Diagnosis Sacroiliac joint dysfunction of both sides Disorders of sacrum Degenerative lumbar disc Degeneration of lumbar or lumbosacral intervertebral disc documented in this encounter Additional Health Concerns Infection Onset Date Last Indicated Resolved Time MRSA 03/30/2020 03/30/2020 COVID - 19 09/11/2024 09/11/2024 09/11/2024 7:21 PM HAT BLOCK MAKER Assessment Noted Time PHQ-9 Depression Total Score: 0 12/15/19 8:53 AM HAT BLOCK MAKER documented as of this encounter Care Teams Before School Babysitter Relationship Specialty Start Date End Date John Méndez MD PCP - General Family Medicine 09/28/19 04/26/24 Dakota Fabian, CASING SOAKER, EDGING MACHINE SETTER [address] [address] PCP - General Advanced Practice Nurse 04/27/24 documented as of this encounter
--- OUTSIDE RECORDS SUMMARY | 2024-10-20 04:27 | XMS_ITS | Encounter Summary ---
Author Organization [facility] Address [address] [place] [address] Phone Care Team Providers Care Commercial Loan Collection Officer Name Role Phone John Méndez MD Primary Care Provider [phone] Reason for Referral * Radiology Services (Routine) - Closed Specialty Diagnoses / Procedures Referred By Magui jacobo Referred To Contact Radiology Diagnoses Encounter for screening mammogram for malignant neoplasm of breast Procedures MARCO A SCREENING BILATERAL DIGITAL W CAD W John Waterman MD Phone: tel: fax: Referral ID Status Reason Start Date Expiration Date Visits Re quested Visits Authorized [id number] Closed 07/26/2021 1 1 Reason for Visit * Radiology Services (Routine) - Closed Specialty Diagnoses / Procedures Referred By Magui jacobo Referred To Contact Radiology Diagnoses Encounter for screening mammogram for malignant neoplasm of breast Procedures MARCO A SCREENING BILATERAL DIGITAL W CAD W John Waterman MD Phone: tel: fax: Referral ID Status Reason Start Date Expiration Date Visits Re quested Visits Authorized [id number] Closed 07/26/2021 1 1 Encounter Details Date Type Department Care Team (Latest Contact Info) Description 08/02/2021 5:19 PM CDT - 08/02/2021 11:59 PM CDT Hospital Encounter [facility] Mammography [address] [place] [address] John Méndez MD #[address] [place] [address] Discharge Disposition: Discharged to home or Selfcare [...] 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 Current study was also evaluated with CoCollage version 7.2. 2D digital mammographic views, as well as 3D digital tomosynthesis were performed in the CC and MLO projections. ?? CLINICAL: Routine screening. Patient has no complaints. No personal history of cancer. Mother with premenopausal breast cancer. ?? COMPARISONS: Comparison is made to exams dated: ??07/22/2020, 09/05/2018, and 02/13/2016 [facility]. ?? BREAST TISSUE:The tissue of both breasts [...] Killian Sandoval M.D. ? ll/penrad:08/03/2021 11:33:14 ?? Trimmer Meat(s): Nellie ??RT Pam(Samantha)(M), [facility] letter sent: Normal Exam ?? Reading location: [facility] BI-RADS: 2 Benign Procedure Note Killian Sandoval [...] to exams dated: 07/22/2020, 09/05/2018, and 02/13/2016 [facility]. BREAST TISSUE:The tissue of both breasts [...] exam. Electronically signed by: Killian barron/antoine:08/03/2021 11:33:14 Trimmer Meat(s): RT Freddie(Samantha)(M), [facility] letter sent: Normal Exam Reading location: [facility] BI-RADS: 2 Benign us John Méndez MD IMG MAMMO ORDERABLES Final Resul t documented in this encounter Visit Diagnoses Diagnosis Encounter for screening mammogram for malignant neoplasm of breast Other screening mammogram documented in this encounter Additional Health Concerns Infection Onset Date Last Indicated Resolved Time MRSA 03/30/2020 03/30/2020 Assessment Noted Time PHQ-9 Depression Total Score: 0 12/15/19 21 8:53 AM INSOLE BOTTOM FILLER documented as of this encounter Care Teams Commercial Loan Collection Officer Relationship Specialty Start Date End Date John Méndez MD PCP - General Family Medicine 09/28/19 04/26/24 documented as of this encounter
--- OUTSIDE RECORDS SUMMARY | 2024-10-20 04:27 | XMS_ITS | Encounter Summary ---
Author Organization [facility] Address [address] [facility] 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 Not on file Not [...] st Contact Info) Description 11/02/2024 8:15 AM DIRECT SUPPORT PROFESSIONAL Office Visit [facility] #2 [place] [address] Dakota Fabian APRN, GARBAGE MAN #[address] [address] 11/26/2024 11:30 AM DIRECT SUPPORT PROFESSIONAL Office Visit [facility] #2 [place] [address] Maggie Tolentino, PAC [address] [place] [address] documented as of this encounter Visit Diagnoses Not on filedocumented in this encounter Additional Health Concerns Infection Onset Date Last Indicated Resolved Time MRSA 03/30/2020 03/30/2020 Assessment Noted Time PHQ-9 Depression Total Score: 0 12/15/19 8:53 AM DIRECT SUPPORT PROFESSIONAL documented as of this encounter Care Teams Roving Department End Finder Relationship Specialty Start Date End Date John Méndez MD PCP - General Family Medicine 09/28/19 04/26/24 documented as of this encounter
--- OUTSIDE RECORDS SUMMARY | 2024-10-20 04:27 | XMS_ITS | Encounter Summary ---
Author Organization [facility] Address [address] [facility] 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 Not [...] Outpatient Visits 3 months ago Essential hypertension [facility] - John Luna MD 5 months ago Acute non-recurrent maxillary sinusitis [facility] - John Luna MD 7 months ago Moderate episode of recurrent major depressive disorder (HCC) [facility] John Delarosa MD 8 months ago Moderate episode of recurrent major depressive disorder (HCC) [facility] John Delarosa MD 9 months ago Mixed hyperlipidemia [facility] John Delarosa MD Upcoming Appointments PATIENT SCHEDULING MANAGER - Recent and Past Visits Recent Visits [...] [place] 03/14/21 Office Visit John Méndez MD [facility] [place] [place] Showing recent visits within past 182 [...] adjustment disorder, OCD, or PTSD visit diagnosis ING CARE ATTENDANT documented in this encounter Plan of Treatment Upcoming Encounters Date Type Department Care Team (Late st Contact Info) Description 11/02/2024 8:15 AM NURSING CARE ATTENDANT [facility] [place] [facility] [place] [address] Dakota Fabian APRN, HAT FINISHING MATERIALS PREPARER #[address] [address] 11/26/2024 11:30 AM NURSING CARE ATTENDANT [facility] [place] [facility] [place] [facility] [place] [address] Maggie Tolentino, PAC #[address] [place] [address] documented as of this encounter Visit Diagnoses Diagnosis Sacroiliac joint dysfunction of both sides Disorders of sacrum Degenerative lumbar disc Degeneration of lumbar or lumbosacral intervertebral disc documented in this encounter Additional Health Concerns Infection Onset Date Last Indicated Resolved Time MRSA 03/30/2020 03/30/2020 COVID - 19 09/11/2024 09/11/2024 09/11/2024 7:21 PM NURSING CARE ATTENDANT Assessment Noted Time PHQ-9 Depression Total Score: 0 12/15/19 8:53 AM NURSING CARE ATTENDANT documented as of this encounter Care Teams Media Sales Representative Relationship Specialty Start Date End Date John Méndez MD PCP - General Family Medicine 09/28/19 04/26/24 Dakota Fabian, [place], HAT FINISHING MATERIALS PREPARER #[address] [address] PCP - General Advanced Practice Nurse 04/27/24 documented as of this encounter
--- OUTSIDE RECORDS SUMMARY | 2024-10-20 04:27 | XMS_ITS | Encounter Summary ---
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 [...] st Contact Info) Description 11/02/2024 8:15 AM FAMILY EDUCATOR Office Visit [facility] Medical Group - Family Medicine [facility] #2 [place] [address] Dakota Fabian, ORIENTATION AND MOBILITY SPECIALIST, DUST MOP MAKER #[address] [address] 11/26/2024 11:30 AM FAMILY EDUCATOR Office Visit [facility] - [place] [address] [place] [address] Maggie Tolentino, [facility] #2 [place] [address] documented as of this encounter Visit Diagnoses Not on filedocumented in this encounter Additional Health Concerns Infection Onset Date Last Indicated Resolved Time MRSA 03/30/2020 03/30/2020 Assessment Noted Time PHQ-9 Depression Total Score: 0 12/15/19 21 8:53 AM FAMILY EDUCATOR documented as of this encounter Care Teams Laboratory Assistant Relationship Specialty Start Date End Date John Méndez MD PCP - General Family Medicine 09/28/19 04/26/24 documented as of this encounter
--- OUTSIDE RECORDS SUMMARY | 2024-10-20 04:27 | XMS_ITS | Encounter Summary ---
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 #2 [place] [address] documented as of this encounter Visit Diagnoses Not on filedocumented in this encounter Additional Health Concerns Infection Onset Date Last Indicated Resolved Time MRSA 03/30/2020 03/30/2020 Assessment Noted Time PHQ-9 Depression Total Score: 0 12/15/19 21 8:53 AM CUSTOMER EXPERIENCE ASSOCIATE documented as of this encounter Care Teams Weed Cutter Relationship Specialty Start Date End Date John Méndez MD PCP - General Family Medicine 09/28/19 04/26/24 documented as of this encounter
--- OUTSIDE RECORDS SUMMARY | 2024-10-20 04:27 | XMS_ITS | Encounter Summary ---
Author Organization [facility] Address [address] [place] [address] Phone Care Team Providers Care Forging Press Setter Up Name Role Phone John Méndez MD Primary Care Provider [phone] Reason for Referral * Consult, Test & Initiate Treatment (Routine) - Closed Specialty Diagnoses / Procedures Referred By Contaliza t Referred To Contact Gastroenterology Diagnoses Diarrhea, unspecified type John Méndez MD Phone: tel: fax: [facility] Gastroenterology [facility] [address] [place] [address] Phone: tel: fax: Referral ID Status Reason Start Date Expiration Date Visits Re quested Visits Authorized [id number] Closed 04/29/2022 1 1 Scheduling Instructions Melinda is being referred for lower abdominal discomfort and diarrhea shortly after eating. Please contact patient for scheduling questions or concerns. 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 Transcribed by Asaf at 9:42 AM on 04/29/2022. documented in this encounter Plan of Treatment Upcoming Encounters Date Type Department Care Team (Late st Contact Info) Description 11/02/2024 8:15 AM STUD DAIRY CATTLE FARMER Office Visit [facility] [address] [place] [address] Dakota Fabian APRN, SUPERVISOR STEEL DIVISION [address] [address] 11/26/2024 11:30 AM STUD DAIRY CATTLE FARMER Office Visit [facility] [address] [place] [address] NikkiMaggie silvestre, PAC [address] [place] [address] Scheduled Referrals Name Type Priority Associated Diagnoses Order Schedule GASTROENTEROLOGY REFERRAL Outpatient Referral Routine Diarrhea, unspecified type Expected: 04/29/2023, Expires: 10/30/2023 documented as of this encounter Results * CMP (COMPREHENSIVE METABOLIC PANEL) (09/03/2022 10:10 AM STUD DAIRY CATTLE FARMER) SODIUM 140 136 - 144 mmol/L 09/03/2022 1:31 PM [facility] POTASSIUM 3.7 3.5 - 5.1 mmol/L 09/03/2022 1:31 PM [facility] CHLORIDE 103 100 - 110 mmol/L 09/03/2022 1:31 PM [facility] CO2, VENOUS 28 22 - 32 mmol/L 09/03/2022 1:31 PM [facility] ANION GAP 12.7 8.0 - 20.0 mmol/L 09/03/2022 1:31 PM [facility] GLUCOSE 88 70 - 99 mg/dL 09/03/2022 1:31 PM [facility] BUN 12 6 - 20 mg/dL 09/03/2022 1:31 PM [facility] CREATININE, BLOOD 0.74 0.60 - 1.10 mg/dL 09/03/2022 1:31 PM [facility] BUN/CREATININE RATIO 16 12 - 20 ratio 09/03/2022 1:31 PM [facility] TOTAL PROTEIN 7.3 6.0 - 8.3 g/dL 09/03/2022 1:31 PM [facility] ALBUMIN 4.4 3.5 - 5.2 g/dL 09/03/2022 1:31 PM [facility] Comment: The colormetric methods used for the determination of Albumin may lead to falsely elevated test results in patients suffering from renal failure or insufficiency due to interference with other proteins. A/G RATIO 1.5 1.0 - 2.0 09/03/2022 1:31 PM STUD DAIRY CATTLE FARMER [facility] CALCIUM 9.4 8.9 - 10.3 mg/dL 09/03/2022 1:31 PM STUD DAIRY CATTLE FARMER [facility] T BILI <0.3 <=1.2 mg/dL 09/03/2022 1:31 PM STUD DAIRY CATTLE FARMER [facility] SGOT (AST) 23 <=32 U/L 09/03/2022 1:31 PM STUD DAIRY CATTLE FARMER [facility] SGPT (ALT) 16 <=41 U/L 09/03/2022 1:31 PM STUD DAIRY CATTLE FARMER [facility] ALKALINE PHOSPHATASE 83 35 - 105 U/L 09/03/2022 1:31 PM STUD DAIRY CATTLE FARMER [facility] IS THE PATIENT REQUIRED TO BE FASTING? No 09/03/2022 1:31 PM STUD DAIRY CATTLE FARMER [facility] GFR, ESTIMATED >60 >=60 09/03/2022 1:31 PM STUD DAIRY CATTLE FARMER [facility] Comment: Creatinine Clearance is the preferred criteria for selecting drug dose adjustments in renally impaired patients. ??The GFR is provided as additional pertinent clinical information. GFR is reported in mL/min/1.73 sq m. Calculation based on the Chronic Kidney Disease Epidemiology Collaboration (CKD- EPI) equation refit without adjustment for race. GFR, EST. >60 >=60 022 1:31 PM STUD DAIRY CATTLE FARMER [facility] GFR, EST. NONAFRICAN >60 >=60 09/03/2022 1:31 PM STUD DAIRY CATTLE FARMER [facility] Blood Venipuncture / Unknown 09/03/2022 10:10 AM STUD DAIRY CATTLE FARMER 09/03/2022 10:10 AM STUD DAIRY CATTLE FARMER us John Méndez MD CHEMISTRY ORDERABLES Final Resul t [facility] [address] [place] [address] * THYROXINE (T4) FREE (09/03/2022 10:10 AM STUD DAIRY CATTLE FARMER) T4 FREE 0.9 0.9 - 1.7 ng/dL 09/03/2022 1:31 PM STUD DAIRY CATTLE FARMER [facility] Blood Venipuncture / Unknown 09/03/2022 10:10 AM STUD DAIRY CATTLE FARMER 09/03/2022 10:10 AM STUD DAIRY CATTLE FARMER John Méndez MD CHEMISTRY ORDERABLES Final Resul t Performing Organization Address City/[facility] Co de Phone Number [facility] [address] [place] [address] * (ABNORMAL) LIPID PANEL (09/03/2022 10:10 AM STUD DAIRY CATTLE FARMER) CHOLESTEROL 216(H) <=200 mg/dL 09/03/2022 1:31 PM STUD DAIRY CATTLE FARMER [facility] TRIGLYCERIDES 226(H) <150 mg/dL 09/03/2022 1:31 PM STUD DAIRY CATTLE FARMER [facility] HDL CHOLESTEROL 56.2 >40 mg/dL 1:31 PM [facility] LDL 115 5 - 130 mg/dL 09/03/2022 1:31 PM STUD DAIRY CATTLE FARMER [facility] VLDL 45 5 - 55 mg/dL 09/03/2022 1:31 PM [facility] CHOL/HDL RATIO 3.8 0.0 - 4.4 09/03/2022 1:31 PM [facility] NON-HDL CHOLESTEROL 159.8(H) <130 mg/dL 09/03/2022 1:31 PM STUD DAIRY CATTLE FARMER [facility] IS THE PATIENT REQUIRED TO BE FASTING? No 09/03/2022 1:31 PM STUD DAIRY CATTLE FARMER [facility] Blood Venipuncture / Unknown 09/03/2022 10:10 AM STUD DAIRY CATTLE FARMER 09/03/2022 10:10 AM STUD DAIRY CATTLE FARMER John Méndez MD CHEMISTRY ORDERABLES Final Resul t [facility] [address] [place] [address] * THYROID STIMULATING HORMONE (TSH) (09/03/2022 10:10 AM STUD DAIRY CATTLE FARMER) TSH 2.140 0.270 - 4.200 mIU/L 09/03/2022 1:31 PM STUD DAIRY CATTLE FARMER [facility] Blood Venipuncture / Unknown 09/03/2022 10:10 AM STUD DAIRY CATTLE FARMER 09/03/2022 10:10 AM STUD DAIRY CATTLE FARMER us John Méndez MD CHEMISTRY ORDERABLES Final Resul t Performing Organization Address [facility] Co de Phone Number [facility] [address] [place] [address] documented in this encounter Visit Diagnoses Diagnosis [...] Total Score: 0 12/15/19 21 8:53 AM STUD DAIRY CATTLE FARMER documented as of this encounter Care Teams Forging Press Setter Up Relationship Specialty Start Date End Date John Méndez MD PCP - General Family Medicine 09/28/19 04/26/24 documented as of this encounter
--- OUTSIDE RECORDS SUMMARY | 2024-10-20 04:27 | XMS_ITS | Encounter Summary ---
Author Organization [facility] Address [address] 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 Not on file documented as of this encounter Miscellaneous Notes * Telephone Encounter - Darlin Fontana RN - 07/23/2021 5:29 PM CDT error documented in this encounter Plan of Treatment Upcoming Encounters Date Type Department Care Team (Late st Contact Info) Description 11/02/2024 8:15 AM DRY WALL FINISHER Office Visit [facility] [address] [place] [address] Dakota Fabian, CONSTRUCTION COORDINATOR, SEWING MACHINES SALESPERSON [address] [address] 11/26/2024 11:30 AM DRY WALL FINISHER Office Visit [facility] [address] [place] [address] Maggie Tolentino, PAC [address] [place] [address] documented as of this encounter Visit Diagnoses Not on filedocumented in this encounter Additional Health Concerns Infection Onset Date Last Indicated Resolved Time MRSA 03/30/2020 03/30/2020 Assessment Noted Time PHQ-9 Depression Total Score: 0 12/15/19 21 8:53 AM DRY WALL FINISHER documented as of this encounter Care Teams Motion Picture Narrator Relationship Specialty Start Date End Date John Méndez MD PCP - General Family Medicine 09/28/19 04/26/24 documented as of this encounter
--- OUTSIDE RECORDS SUMMARY | 2024-10-20 04:27 | XMS_ITS | Encounter Summary ---
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 No / Unsure 10/09/2021 7:12 AM PERCH MENDER documented as of this encounter Plan of Treatment Upcoming Encounters Date Type Department Care Team (Late st Contact Info) Description 11/02/2024 8:15 AM PERCH MENDER Office Visit [facility] - Family Medicine [facility] [address] [place] [address] Dakota Fabian, RAILCAR SWITCHER, CLEARANCE COORDINATOR [address] [address] 11/26/2024 11:30 AM PERCH MENDER Office Visit [facility] - Family Medicine [facility] [address] [place] [address] Maggie Tolentino, [facility] [address] [place] [address] documented as of this encounter Visit Diagnoses Not on filedocumented in this encounter Additional Health Concerns Infection Onset Date Last Indicated Resolved Time MRSA 03/30/2020 03/30/2020 Assessment Noted Time PHQ-9 Depression Total Score: 0 12/15/19 21 8:53 AM PERCH MENDER documented as of this encounter Care Teams Barrel Washer Machine Relationship Specialty Start Date End Date John Méndez MD PCP - General Family Medicine 09/28/19 04/26/24 documented as of this encounter
--- OUTSIDE RECORDS SUMMARY | 2024-10-20 04:27 | XMS_ITS | Encounter Summary ---
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 Not on [...] st Contact Info) Description 11/02/2024 8:15 AM LOGGING ENGINEER Office Visit [facility] - Family Medicine [facility] [address] [place] [address] Dakota Fabian, TRANSMISSION SYSTEMS OPERATOR, PETROLOGIST [address] [address] 11/26/2024 11:30 AM LOGGING ENGINEER Office Visit [facility] - Family Medicine - [facility] [address] [place] [address] Maggie Tolentino, [facility] [address] [place] [address] documented as of this encounter Visit Diagnoses Not on filedocumented in this encounter Additional Health Concerns Infection Onset Date Last Indicated Resolved Time MRSA 03/30/2020 03/30/2020 Assessment Noted Time PHQ-9 Depression Total Score: 0 12/15/19 21 8:53 AM LOGGING ENGINEER documented as of this encounter Care Teams Wearing Apparel Shaker Relationship Specialty Start Date End Date John Méndez MD PCP - General Family Medicine 09/28/19 04/26/24 documented as of this encounter
--- OUTSIDE RECORDS SUMMARY | 2024-10-20 04:27 | XMS_ITS | Encounter Summary ---
Author Organization [facility] Address [address] [place] [place] [address] Phone Care Team Providers Care Logistics Account Manager Name Role Phone John Méndez MD Primary Care Provider [phone] Dakota Fabian APRN, CNP Primary Care Pr ovider Reason for Visit * Reason Comments Medication Refill tylenol 3 Encounter Details Date Type Department Care Team (Late st Contact Info) Description 07/20/2021 Refill [facility] - Family Medicine 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 * Telephone [...] Outpatient Visits 2 months ago Essential hypertension [facility] - John Luna MD 4 months ago Acute non-recurrent maxillary sinusitis [facility] - John Luna MD 6 months ago Moderate episode of recurrent major depressive disorder (HCC) [facility] John Delarosa MD 7 months ago Moderate episode of recurrent major depressive disorder (HCC) [facility] John Delarosa MD 8 months ago Mixed hyperlipidemia [facility] - John Luna MD Upcoming Appointments CURING OVEN ATTENDANT - Recent and Past Visits Recent Visits [...] Werner 05/02/20 Office Visit John Méndez MD [facility] [place] Showing recent visits within past 460 [...] Outpatient Visits 2 months [address] [facility] John Delarosa MD 4 months ago Acute non-recurrent maxillary sinusitis [facility] John Delarosa MD 6 months ago Moderate episode of recurrent major depressive disorder (HCC) [facility] John Delarosa MD 7 months ago Moderate episode of recurrent major depressive disorder (HCC) [facility] John Delarosa MD 8 months ago Mixed hyperlipidemia [facility] John Delarosa MD Upcoming Appointments CURING OVEN ATTENDANT - Recent and Past Visits Recent Visits Date Type Provider Dept 05/01/21 Office Visit John Méndez MD [facility] 03/14/21 Office Visit John Méndez MD [facility] 01/11/21 Office Visit John Méndez MD [facility] 12/14/20 Office Visit John Méndez MD [facility] 11/15/20 Office Visit John Méndez MD [facility] 06/09/20 Office Visit John Méndez MD [facility] 05/02/20 Office Visit John Méndez MD [facility] [place] Showing recent visits within past 460 [...] Contact Info) Description 11/02/2024 8:15 AM PROJECT DEVELOPMENT ENGINEER Office Visit [facility] [address] [place] [address] Dakota Fabian APRN, ELECTRICAL ASSEMBLER #[address] [address] 11/26/2024 11:30 AM PROJECT DEVELOPMENT ENGINEER Office Visit [facility] [address] [place] [address] Maggie Tolentino, PAC [address] [place] [address] documented as of this encounter Visit Diagnoses Diagnosis Sacroiliac joint dysfunction of both sides Disorders of sacrum Degenerative lumbar disc Degeneration of lumbar or lumbosacral intervertebral disc documented in this encounter Additional Health Concerns Infection Onset Date Last Indicated Resolved Time MRSA 03/30/2020 03/30/2020 COVID - 19 09/11/2024 09/11/2024 09/11/2024 7:21 PM PROJECT DEVELOPMENT ENGINEER Assessment Noted Time PHQ-9 Depression Total Score: 0 12/15/19 8:53 AM PROJECT DEVELOPMENT ENGINEER documented as of this encounter Care Teams Logistics Account Manager Relationship Specialty Start Date End Date John Méndez MD PCP - General Family Medicine 09/28/19 04/26/24 Dakota Fabian, THOM, ELECTRICAL ASSEMBLER [address] [place] [address] PCP - General Advanced Practice Nurse 04/27/24 documented as of this encounter
--- OUTSIDE RECORDS SUMMARY | 2024-10-20 04:27 | XMS_ITS | Encounter Summary ---
Author Organization [facility] Address [address] [facility] 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 Not [...] st Contact Info) Description 11/02/2024 8:15 AM MAGNETIC TAPE TYPEWRITER OPERATOR Office Visit [facility] [address] [place] [address] Dakota Fabian APRN, TRACTOR TECHNICIAN [address] [address] 11/26/2024 11:30 AM MAGNETIC TAPE TYPEWRITER OPERATOR Office Visit [facility] [address] [place] [address] Maggie Tolentino, PAC [address] [place] [address] documented as of this encounter Visit Diagnoses Not on filedocumented in this encounter Additional Health Concerns Infection Onset Date Last Indicated Resolved Time MRSA 03/30/2020 03/30/2020 Assessment Noted Time PHQ-9 Depression Total Score: 0 12/15/19 8:53 AM MAGNETIC TAPE TYPEWRITER OPERATOR documented as of this encounter Care Teams Risk Specialist Relationship Specialty Start Date End Date John Méndez MD PCP - General Family Medicine 09/28/19 04/26/24 documented as of this encounter
--- OUTSIDE RECORDS SUMMARY | 2024-10-20 04:27 | XMS_ITS | Encounter Summary ---
Author Organization [facility] Address [address] [facility] 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 * Abdominal Pain Adult (Albanian) documented in this encounter Medications at Time [...] discharged per ambulatory mode with as responsible libertarian. SL D/C'ed with Yogesh cath intact. * [...] file Occupational History ??? 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 Smoking status: Never Smoker [...] Chucky Muhammad M.D. MZ: TAYLOR Report ID: [id number] Reading Location: [place] [address] Labs Reviewed CMP (COMPREHENSIVE METABOLIC PANEL) - [...] created for panel order CBC with Diff [id number]. Procedure Abnormality Status --------- ------ CBC with Auto Differential[[id number]] Abnormal Final result Please view results for [...] triage. Patient denies taking any OTC medications SALES CONSULTANT RESIDENTIAL MANAGER. documented in this encounter Plan of Treatment Upcoming Encounters Date Type Department Care Team (Late st Contact Info) Description 11/02/2024 8:15 AM CULTURED MARBLE PRODUCTS MAKER Office Visit [facility] [address]2 [place] [address] Dakota Fabian APRN, SOLUTION MAKER [address] [address] 11/26/2024 11:30 AM CULTURED MARBLE PRODUCTS MAKER Office Visit [facility] [address]2 [place] [address] Maggie Tolentino, PAC [address]2 [place] [address] documented as of this encounter Procedures Procedure [...] PM T: ??03/22/2022 7:53 PM Report ID: [id number] Reading Location: ??[id number] Procedure Note Chucky Muhammad MD - 03/22/2022 [...] Chucky Muhammad M.D. MZ: MZ Report ID: [id number] Reading Location: [id number] IMPRESSION: No acute findings in the abdomen or pelvis. Eliu Del Toro MD IMG CT ORDERABLES Final R esult * Culture, Urine (03/22/2022 6:58 PM CDT) Pathologist [facility] CULTURE RESULTS MIXED GROWTH OF 3 OR MORE ORGANISMS, PROBABLE COLLECTION CONTAMINATION, SUGGEST REPEAT URINE CULTURE. 03/24/2022 10:05 AM CDT [facility] Urine URINE SPECIMEN COLLECTION, CLEAN CATCH / Unknown Non-Phlebotomy Collection / Unknown 03/22/2022 6:58 PM CDT 03/22/2022 7:03 PM CDT Ashly Sullivan APRN, SOLUTION MAKER MICROBIOLOGY - GENERA L ORDERABLES Final Result [facility] [address] [place] [address], * (ABNORMAL) URINALYSIS REFLEX IF INDICATED BY ABNORMAL RESULTS (03/22/2022 6:58 PM CDT) Pathologist [facility] SPECIFIC GRAVITY 1.025 1.003 - 1.030 03/22/2022 7:23 PM CDT [facility] URINE PH 5.0 5.0 - 9.0 03/22/2022 7:23 PM CDT [facility] WBC ESTERASE 25 /ul(A) Negative 03/22/2022 7:23 PM CDT [facility] NITRITE Negative Negative 03/22/2022 7:23 PM CDT [facility] PROTEIN, RANDOM URINE 30 mg/dL(A) Negative 03/22/2022 7:23 PM CDT [facility] URINE GLUCOSE, QUAL Negative Negative 03/22/2022 7:23 PM CDT [facility] URINE KETONES 15 mg/dL(A) Negative 03/22/2022 7:23 PM CDT [facility] UROBILINOGEN Normal Normal mg/dL 03/22/2022 7:23 PM CDT [facility] URINE BLOOD 10 /uL(A) Negative marjorie/ul 03/22/2022 7:23 PM CDT [facility] URINALYSIS COLOR Alissa 03/22/20 7:23 PM CDT [facility] URINALYSIS CLARITY Slightly Cloudy 03/22/2022 7:23 PM CDT [facility] WBC (Urine) 0-5 Negative, 0-5 /hpf 03/22/2022 7:23 PM CDT [facility] URINE RBC'S 0-2 Negative, 0-2 /hpf 03/22/2022 7:23 PM CDT [facility] EPITHELIAL CELLS Moderate amount /lpf 03/22/2022 7:23 PM CDT [facility] BACTERIA, URINE Few(A) Negative /hpf 03/22/2022 7:23 PM CDT [facility] Urine URINE SPECIMEN COLLECTION, CLEAN CATCH / Unknown Non-Phlebotomy Collection / Unknown 03/22/2022 6:58 PM CDT 03/22/2022 7:03 PM CDT us Ashly Sullivan CHIEF NURSING OFFICER, SOLUTION MAKER URINE ORDERABLES Serene l Result [facility] #1 [place] [address] * (ABNORMAL) CBC with Auto Differential (03/22/2022 5:08 PM CDT) WBC 7.63 4.00 - 12.00 10(3)/mcL 03/22/2022 5:36 PM CDT [facility] RBC 5.13 3.80 - 5.30 10(6)/mcL 03/22/2022 5:36 PM CDT [facility] HEMOGLOBIN (HGB) 14.4 12.0 - 15.8 g/dL 03/22/2022 5:36 PM CDT [facility] HEMATOCRIT (HCT) 45.3 36.0 - 47.0 % 03/22/2022 5:36 PM CDT [facility] MCV 88.3 82.0 - 96.0 fL 03/22/2022 5:36 PM CDT [facility] MCH 28.1 26.0 - 34.0 pg 03/22/2022 5:36 PM CDT [facility] MCHC 31.8 31.0 - 36.0 g/dL 03/22/2022 5:36 PM CDT [facility] PLATELET COUNT 418 140 - 440 10(3)/mcL 03/22/2022 5:36 PM CDT [facility] RDW 13.1 11.8 - 15.5 % 03/22/2022 5:36 PM CDT [facility] MPV 11.2 9.7 - 12.4 fL 03/22/2022 5:36 PM CDT [facility] NEUTROPHILS 75.4(H) 47.0 - 73.0 % 03/22/2022 5:36 PM CDT [facility] LYMPHOCYTES 18.0 18.0 - 42.0 % 03/22/2022 5:36 PM CDT [facility] MONOCYTES 5.4 4.0 - 12.0 % 03/22/2022 5:36 PM CDT [facility] EOSINOPHILS 0.4 0.0 - 5.0 % 03/22/2022 5:36 PM CDT [facility] BASOPHILS 0.8 0.0 - 1.0 % 03/22/2022 5:36 PM CDT [facility] ABSOLUTE NEUTROPHILS 5.76 1.60 - 7.70 10(3)/mcL 03/22/2022 5:36 PM CDT [facility] ABSOLUTE LYMPHOCYTES 1.37 1.30 - 3.20 10(3)/mcL 03/22/2022 5:36 PM CDT [facility] ABSOLUTE MONOCYTES 0.41 0.20 - 1.00 10(3)/mcL 03/22/2022 5:36 PM CDT [facility] ABSOLUTE EOSINOPHIL 0.03 0.00 - 0.40 10(3)/mcL 03/22/2022 5:36 PM CDT [facility] ABSOLUTE BASOPHILS 0.06 0.00 - 0.10 10(3)/mcL 03/22/2022 5:36 PM CDT [facility] NRBC PER 100 WBC 0 03/22/20 5:36 PM CDT [facility] Blood Venous Catheter (IV) / Unknown 03/22/2022 5:08 PM CDT 03/22/2022 5:32 PM CDT us Ashly Sullivan APRN, SOLUTION MAKER HEMATOLOGY ORDERABLES Final Result Performing Organization Address City/[facility]/ZIP Co de Phone Number [facility] [address] [place] [address] * Lipase [id number] (03/22/2022 5:08 PM CDT) LIPASE 19.9 13 - 60 U/L 03/22/2022 5:54 PM CDT [facility] Blood Venous Catheter (IV) / Unknown 03/22/2022 5:08 PM CDT 03/22/2022 5:32 PM CDT us Ashly Sullivan CHIEF NURSING OFFICER, SOLUTION MAKER CHEMISTRY ORDERABLES Final Result [facility] [address] [place] [address] * (ABNORMAL) Comprehensive Metabolic Panel (Cmp) [id number] (03/22/2022 5:08 PM CDT) SODIUM 138 136 - 144 mmol/L 03/22/2022 5:[address] [facility] POTASSIUM 3.4(L) 3.5 - 5.1 mmol/L 03/22/2022 5:54 PM T [facility] CHLORIDE 101 100 - 110 mmol/L 03/22/2022 5:[address] [facility] CO2, VENOUS 25 22 - 32 mmol/L 03/22/2022 5:[address] [facility] ANION GAP 15.4 8.0 - 20.0 mmol/L 03/22/2022 5:54 PM T [facility] GLUCOSE 104(H) 70 - 99 mg/dL 03/22/2022 5:54 PM T [facility] BUN 10 6 - 20 mg/dL 03/22/2022 5:[address] [facility] CREATININE, BLOOD 0.64 0.60 - 1.10 mg/dL 03/22/2022 5:[address] [facility] BUN/CREATININE RATIO 16 12 - 20 ratio 03/22/2022 5:[address] [facility] TOTAL PROTEIN 7.9 6.0 - 8.3 g/dL 03/22/2022 5:[address] [facility] ALBUMIN 4.7 3.5 - 5.2 g/dL 03/22/2022 5:[address] [facility] Comment: The colormetric methods used for the determination of Albumin may lead to falsely elevated test results in patients suffering from renal failure or insufficiency due to interference with other proteins. A/G RATIO 1.5 1.0 - 2.0 03/22/2022 5:[address] [facility] CALCIUM 9.3 8.9 - 10.3 mg/dL 03/22/2022 5:[address] [facility] T BILI 0.3 <=1.2 mg/dL 03/22/2022 5:[address] [facility] SGOT (AST) 18 <=32 U/L 03/22/2022 5:[address] [facility] SGPT (ALT) 14 <=41 U/L 03/22/2022 5:54 PM CDT [facility] ALKALINE PHOSPHATASE 66 35 - 105 U/L 03/22/2022 5:54 PM CDT [facility] GFR, EST. NONAFRICAN >60 >=60 03/22/2022 5:54 PM CDT [facility] GFR, EST. >60 >=60 022 5:54 PM CDT [facility] Comment: Creatinine Clearance is the preferred criteria for selecting drug dose adjustments in renally impaired patients. ??The GFR is provided as additional pertinent clinical information. GFR is reported in mL/min/1.73 sq m. Blood Venous Catheter (IV) / Unknown 03/22/2022 5:08 PM CDT 03/22/2022 5:32 PM CDT Ashly Sullivan APRN, SOLUTION MAKER CHEMISTRY ORDERABLES Final Result [facility] [address] [place] [address] documented in this encounter Visit Diagnoses Diagnosis [...] 1820 (Given - Provid er: Melissa S Tipton, RN) documented in this encounter Additional Health Concerns Infection Onset Date Last Indicated Resolved Time MRSA 03/30/2020 03/30/2020 Assessment Noted Time PHQ-9 Depression Total Score: 0 12/15/19 21 8:53 AM CULTURED MARBLE PRODUCTS MAKER documented as of this encounter Care Teams Cloth Grader Supervisor Relationship Specialty Start Date End Date John Méndez MD PCP - General Family Medicine 09/28/19 04/26/24 documented as of this encounter
--- OUTSIDE RECORDS SUMMARY | 2024-10-20 04:27 | XMS_ITS | Encounter Summary ---
Author Organization [facility] Address [address] [place] [address] Phone Care Team Providers Care Business Information Consultant Name Role Phone John Méndez MD Primary Care Provider [phone] Reason for Referral * Radiology Services (Routine) - Closed Specialty Diagnoses / Procedures Referred By Contac t Referred To Contact Radiology Diagnoses Nausea and vomiting, unspecified vomiting type Upper abdominal pain Procedures NM HEPATOBILIARY WITH PHARM Elvia Molina PAC [address] [place] [address] Phone: tel: fax: Referral ID Status Reason Start Date Expiration Date Visits Re quested Visits Authorized [id number] Closed 05/08/2022 1 1 Reason for Visit * Radiology Services (Routine) - Closed Specialty Diagnoses / Procedures Referred By Contaliza [email or web address] Referred To Contact Radiology Diagnoses Nausea and vomiting, unspecified vomiting type Upper abdominal pain Procedures NM HEPATOBILIARY WITH PHARM Elvia Molina PAC [address] [place] [address] Phone: tel: fax: Referral ID Status Reason Start Date Expiration Date Visits Re quested Visits Authorized [id number] Closed 05/08/2022 1 1 Encounter Details Date Type Department Care Team (Latest Contact Info) Description 05/21/2022 9:43 AM CDT - 05/21/2022 11:59 PM CDT Hospital Encounter [facility] Nuclear Medicine 1 [place] [address] MolinaElvia henderson, PAC [address] [place] [address] Discharge Disposition: Discharged to home or Selfcare [...] 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 [address] [place] [address] Dakota Fabian, CERTIFIED PUBLIC ACCOUNTANT, PRODUCTION WELDING SUPERVISOR [address] [address] 11/26/2024 11:30 AM DIRECTOR OF DIVERSITY AND INCLUSION Office Visit [facility] #2 [facility] [place] [address] Maggie Tolentino, PAC [address] [facility] [address] documented as of this encounter Procedures Procedure [...] PM T: ??05/21/2022 4:56 PM Report ID: [id number] Reading Location: ??[id number] Procedure Note Jackson Barrera MD - 05/21/2022 [...] signed by Jackson [place]: MARISA Report ID: [id number] Reading Location: [id number] IMPRESSION: No scintigraphic evidence of cystic duct [...] Score: 0 12/15/19 21 8:53 AM DIRECTOR OF DIVERSITY AND INCLUSION documented as of this encounter Care Teams Business Information Consultant Relationship Specialty Start Date End Date John Méndez MD PCP - General Family Medicine 09/28/19 04/26/24 documented as of this encounter
--- OUTSIDE RECORDS SUMMARY | 2024-10-20 04:27 | XMS_ITS | Encounter Summary ---
Author Organization [facility] Address [address] [facility] 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 No / Unsure 10/09/2021 7:12 AM DIRECTOR OF EARLY CHILDHOOD EDUCATION documented as of this encounter Miscellaneous Notes [...] [place] 11/15/20 Office Visit [facility] Showing recent visits within past 365 days and meeting all other requirements Future Appointments No visits were found meeting these conditions. Showing future appointments within next 90 days and meeting all other requirements CTOR OF EARLY CHILDHOOD EDUCATION documented in this encounter Plan of Treatment Upcoming Encounters Date Type Department Care Team (Late st Contact Info) Description 11/02/2024 8:15 AM DIRECTOR OF EARLY CHILDHOOD EDUCATION Office Visit [facility] - Family Medicine - [place] [address] [place] [address] Dakota Fabian, AMMONIUM NITRATE NEUTRALIZER, QUICK SERVICE TECHNICIAN #[address] [address] 11/26/2024 11:30 AM DIRECTOR OF EARLY CHILDHOOD EDUCATION Office Visit [facility] - Family [facility] [address] [place] [address] Maggie Tolentino PAC [address] [facility] [place] [address] documented as of this encounter Visit Diagnoses Diagnosis Sacroiliac joint dysfunction of both sides Disorders of sacrum Degenerative lumbar disc Degeneration of lumbar or lumbosacral intervertebral disc documented in this encounter Additional Health Concerns Infection Onset Date Last Indicated Resolved Time MRSA 03/30/2020 03/30/2020 COVID - 19 09/11/2024 09/11/2024 09/11/2024 7:21 PM DIRECTOR OF EARLY CHILDHOOD EDUCATION Assessment Noted Time PHQ-9 Depression Total Score: 0 12/15/19 21 8:53 AM DIRECTOR OF EARLY CHILDHOOD EDUCATION documented as of this encounter Care Teams Public Relations Account Supervisor Relationship Specialty Start Date End Date John Méndez MD PCP - General Family Medicine 09/28/19 04/26/24 Dakota Fabian APRN, QUICK SERVICE TECHNICIAN [address] [address] PCP - General Advanced Practice Nurse 04/27/24 documented as of this encounter
--- OUTSIDE RECORDS SUMMARY | 2024-10-20 04:27 | XMS_ITS | Encounter Summary ---
Author Organization [facility] Address [address] [facility] 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 UMER RELATIONS SPECIALIST * Telephone Encounter - Antoinette Arora RN [...] 90 days and meeting all other requirements UMER RELATIONS SPECIALIST documented in this encounter Plan of Treatment Upcoming Encounters Date Type Department Care Team (Late st Contact Info) Description 11/02/2024 8:15 AM CONSUMER RELATIONS SPECIALIST Office Visit [facility] [place] [address] [place] [address] Dakota Fabian APRN, LINE TECHNICIAN #[address] [address] 11/26/2024 11:30 AM CONSUMER RELATIONS SPECIALIST Office Visit [facility] [place] [facility] [address] [place] [address] Maggie Tolentino, PAC [address] [place] [address] documented as of this encounter Visit Diagnoses Diagnosis Sacroiliac joint dysfunction of both sides Disorders of sacrum Degenerative lumbar disc Degeneration of lumbar or lumbosacral intervertebral disc documented in this encounter Additional Health Concerns Infection Onset Date Last Indicated Resolved Time MRSA 03/30/2020 03/30/2020 COVID - 19 09/11/2024 09/11/2024 09/11/2024 7:21 PM CONSUMER RELATIONS SPECIALIST Assessment Noted Time PHQ-9 Depression Total Score: 0 12/15/19 8:53 AM CONSUMER RELATIONS SPECIALIST documented as of this encounter Care Teams Core Composer Machine Tender Relationship Specialty Start Date End Date John Méndez MD PCP - General Family Medicine 09/28/19 04/26/24 Dakota Fabian APRN, LINE TECHNICIAN #[address] [address] PCP - General Advanced Practice Nurse 04/27/24 documented as of this encounter
--- OUTSIDE RECORDS SUMMARY | 2024-10-20 04:27 | XMS_ITS | Encounter Summary ---
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 [...] Contact Info) Description 11/02/2024 8:15 AM CHIEF SAFETY OFFICER Office Visit [facility] - Family Medicine [facility] #2 [place] [address] Dakota Fabian, DELICATESSEN DEPARTMENT MANAGER, TEMPERING OVEN OPERATOR #[address] [address] 11/26/2024 11:30 AM CHIEF SAFETY OFFICER Office Visit [facility] - [place] [address] [place] [address] Maggie Tolentino, PAC [address] [place] [address] documented as of this encounter Visit Diagnoses Not on filedocumented in this encounter Additional Health Concerns Infection Onset Date Last Indicated Resolved Time MRSA 03/30/2020 03/30/2020 Assessment Noted Time PHQ-9 Depression Total Score: 0 12/15/19 21 8:53 AM CHIEF SAFETY OFFICER documented as of this encounter Care Teams Sap Bw Developer Relationship Specialty Start Date End Date John Méndez MD PCP - General Family Medicine 09/28/19 04/26/24 documented as of this encounter
--- OUTSIDE RECORDS SUMMARY | 2024-10-20 04:27 | XMS_ITS | Encounter Summary ---
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 file [...] st Contact Info) Description 11/02/2024 8:15 AM CURED MEAT PACKING SUPERVISOR Office Visit [facility] Medical Group - Family Medicine [facility] [address] [place] [address] Dakota Fabian, AUTO DAMAGE TRAINEE, HOUSE MOVING SUPERVISOR #[address] [address] 11/26/2024 11:30 AM CURED MEAT PACKING SUPERVISOR Office Visit [facility] - [place] [address] [place] [address] Maggie Tolentino, PAC [address] [place] [address] documented as of this encounter Visit Diagnoses Not on filedocumented in this encounter Additional Health Concerns Infection Onset Date Last Indicated Resolved Time MRSA 03/30/2020 03/30/2020 Assessment Noted Time PHQ-9 Depression Total Score: 0 12/15/19 21 8:53 AM CURED MEAT PACKING SUPERVISOR documented as of this encounter Care Teams Licensed Midwife Relationship Specialty Start Date End Date John Méndez MD PCP - General Family Medicine 09/28/19 04/26/24 documented as of this encounter
--- OUTSIDE RECORDS SUMMARY | 2024-10-20 04:27 | XMS_ITS | Encounter Summary ---
Author Organization [facility] Address [address] [place] [address] Phone Care Team Providers Care Lead Instructor/Flight Attendant Name Role Phone John Méndez MD Primary Care Provider [phone] Reason for Visit * Reason Onset Date Comments Medication Refill 04/19/2021 Encounter Details Date Type Department Care Team (Late st Contact Info) Description 04/19/2021 MyChart RX Renewal 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 John Luna MD 3 months ago Moderate episode of recurrent major depressive disorder (HCC) [facility] John Luna MD 4 months ago Moderate episode of recurrent major depressive disorder (HCC) [facility] John Delarosa MD 5 months ago Mixed hyperlipidemia [facility] John Delarosa MD 10 months ago Mild intermittent asthma without complication [facility] John Delarosa MD Upcoming Appointments Future Appointments In 1 week John Méndez MD [facility] Dave Werner [facility] PRODUCTION ASSEMBLER - Recent and Past Visits Recent [...] [place] 03/30/20 Office Visit John Méndez MD [facility] Showing recent visits within past [...] st Contact Info) Description 11/02/2024 8:15 AM WASHING AND SCREENING PLANT SUPERVISOR Office Visit [facility] [address] [place] [address] Dakota Fabian APRN, DREDGE PIPE OPERATOR #[address] [address] 11/26/2024 11:30 AM WASHING AND SCREENING PLANT SUPERVISOR Office Visit [facility] [address] [place] [address] Maggie Tolentino, PAC [address] [place] [address] documented as of this encounter Visit Diagnoses Not on filedocumented in this encounter Additional Health Concerns Infection Onset Date Last Indicated Resolved Time MRSA 03/30/2020 03/30/2020 Assessment Noted Time PHQ-9 Depression Total Score: 0 12/15/19 8:53 AM WASHING AND SCREENING PLANT SUPERVISOR documented as of this encounter Care Teams Lead Instructor/Flight Attendant Relationship Specialty Start Date End Date John Méndez MD PCP - General Family Medicine 09/28/19 04/26/24 documented as of this encounter
--- OUTSIDE RECORDS SUMMARY | 2024-10-20 04:27 | XMS_ITS | Encounter Summary ---
Author Organization [facility] Address [address] [facility] [place] [address] Phone Care Team Providers Care Pharmacy Delivery Driver Name Role Phone John Méndez MD Primary Care Provider [phone] Dakota Fabian APRN DE IONIZER OPERATOR Primary Care Pr ovider Reason for Visit * Reason Comments Medication Refill Encounter Details Date Type Department Care Team (Late st Contact Info) Description 03/18/2022 Refill [facility] Family Medicine 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 [...] st Contact Info) Description 11/02/2024 8:15 AM THIRD MATE Office Visit [facility] [address] [place] [address] Dakota Fabian, CUSTOMS AND BORDER PROTECTION OFFICER, DE IONIZER OPERATOR #[address] [address] 11/26/2024 11:30 AM THIRD MATE Office Visit [facility] [address]2 [place] [address] Maggie Tolentino, PAC [address] [place] [address] documented as of this encounter Visit Diagnoses Diagnosis Sacroiliac joint dysfunction of both sides Disorders of sacrum Degenerative lumbar disc Degeneration of lumbar or lumbosacral intervertebral disc documented in this encounter Additional Health Concerns Infection Onset Date Last Indicated Resolved Time MRSA 03/30/2020 03/30/2020 COVID - 19 09/11/2024 09/11/2024 09/11/2024 7:21 PM THIRD MATE Assessment Noted Time PHQ-9 Depression Total Score: 0 12/15/19 8:53 AM THIRD MATE documented as of this encounter Care Teams Pharmacy Delivery Driver Relationship Specialty Start Date End Date John Méndez MD PCP - General Family Medicine 09/28/19 04/26/24 Dakota Fabian APRN, DE IONIZER OPERATOR #[address] [address] PCP - General Advanced Practice Nurse 04/27/24 documented as of this encounter
--- OUTSIDE RECORDS SUMMARY | 2024-10-20 04:27 | XMS_ITS | Encounter Summary ---
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 Not [...] Contact Info) Description 11/02/2024 8:15 AM GAS SCRUBBER OPERATOR Office Visit [facility] - Family Medicine [facility] #2 [place] [address] Dakota Fabian, PIANO REGULATOR, LIFE SUPPORT TECHNICIAN #[address] [address] 11/26/2024 11:30 AM GAS SCRUBBER OPERATOR Office Visit [facility] - [place] [address] [place] [address] Maggie Tolentino, [facility] #2 [place] [address] documented as of this encounter Visit Diagnoses Not on filedocumented in this encounter Additional Health Concerns Infection Onset Date Last Indicated Resolved Time MRSA 03/30/2020 03/30/2020 Assessment Noted Time PHQ-9 Depression Total Score: 0 12/15/19 21 8:53 AM GAS SCRUBBER OPERATOR documented as of this encounter Care Teams Paint And Table Edger Relationship Specialty Start Date End Date John Méndez MD PCP - General Family Medicine 09/28/19 04/26/24 documented as of this encounter
--- OUTSIDE RECORDS SUMMARY | 2024-10-20 04:27 | XMS_ITS | Encounter Summary ---
Author Organization [facility] Address [address] 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 Not [...] [place] 03/14/21 Office Visit John M[facility]dez MD [facility] [place] Showing recent visits within past 365 days and meeting all other requirements Future Appointments Date Type Provider Dept 04/29/22 Appointment John Méndez MD [facility] Showing future appointments within next 90 days and meeting all other requirements documented in this encounter Plan of Treatment Upcoming Encounters Date Type Department Care Team (Late st Contact Info) Description 11/02/2024 8:15 AM BEADING SAWYER Office Visit [facility] [address]2 [place] [address] Dakota Fabian APRN, RETURNED TELEPHONE EQUIPMENT APPRAISER #[address] [address] 11/26/2024 11:30 AM BEADING SAWYER Office Visit [facility] [address] [place] [address] Maggie Tolentino, PAC [address] [place] [address] documented as of this encounter Visit Diagnoses Diagnosis Sacroiliac joint dysfunction of both sides Disorders of sacrum Degenerative lumbar disc Degeneration of lumbar or lumbosacral intervertebral disc documented in this encounter Additional Health Concerns Infection Onset Date Last Indicated Resolved Time MRSA 03/30/2020 03/30/2020 COVID - 19 09/11/2024 09/11/2024 09/11/2024 7:21 PM BEADING SAWYER Assessment Noted Time PHQ-9 Depression Total Score: 0 12/15/19 8:53 AM BEADING SAWYER documented as of this encounter Care Teams Mac Developer Relationship Specialty Start Date End Date John Méndez MD PCP - General Family Medicine 09/28/19 04/26/24 Dakota Fabian, MOTION PICTURE DIRECTOR, RETURNED TELEPHONE EQUIPMENT APPRAISER [address] [place] [address] PCP - General Advanced Practice Nurse 04/27/24 documented as of this encounter
--- OUTSIDE RECORDS SUMMARY | 2024-10-20 04:27 | XMS_ITS | Encounter Summary ---
Author Organization [facility] Address [address] [place] 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 [...] st Contact Info) Description 11/02/2024 8:15 AM TOOL PROCUREMENT COORDINATOR Office Visit [facility] [address]2 [facility] [place] [address] Dakota Fabian APRN, BRUSH OR BROOM CUTTER #[address] [address] 11/26/2024 11:30 AM TOOL PROCUREMENT COORDINATOR Office Visit [facility] [address]2 [facility] [place] [address] Maggie Tolentino PAC [address] [place] [address] documented as of this encounter Visit Diagnoses Diagnosis Wheezing documented in this encounter Additional Health Concerns Infection Onset Date Last Indicated Resolved Time MRSA 03/30/2020 03/30/2020 COVID - 19 09/11/2024 09/11/2024 09/11/2024 7:21 PM TOOL PROCUREMENT COORDINATOR Assessment Noted Time PHQ-9 Depression Total Score: 0 12/15/19 21 8:53 AM TOOL PROCUREMENT COORDINATOR documented as of this encounter Care Teams Pull Up Hand Relationship Specialty Start Date End Date John Méndez MD PCP - General Family Medicine 09/28/19 04/26/24 Dakota Fabian APRN, BRUSH OR BROOM CUTTER [address] [place] [address] PCP - General Advanced Practice Nurse 04/27/24 documented as of this encounter
--- OUTSIDE RECORDS SUMMARY | 2024-10-20 04:27 | XMS_ITS | Encounter Summary ---
Author Organization [facility] Address [address] [address] Phone Care Team Providers Care Firer Powerhouse Name Role Phone John Méndez MD Primary Care Provider [phone] Reason for Referral * Other (Routine) - Closed Specialty Diagnoses / Procedures Referred By Magui jacobo Referred To Contact Gastroenterology Diagnoses Diarrhea, unspecified type Procedures GASTRO PROCEDURE Elvia Molina PAC [address] [place] [address] Phone: tel: fax: Rachelle Hood MD [address] [place] [address] Phone: tel: fax: Referral ID Status Reason Start Date Expiration Date Visits Re quested Visits Authorized [id number] Closed 05/08/2022 1 1 * Other (Routine) - Closed Specialty Diagnoses / Procedures Referred By Magui jacobo Referred To Contact Gastroenterology Diagnoses Gastroesophageal reflux disease, unspecified whether esophagitis present Procedures GASTRO PROCEDURE Elvia Molina PAC [address] [place] [address] Phone: tel: fax: Rachelle Hood MD [address] [place] [address] Phone: tel: fax: Referral ID Status Reason Start Date Expiration Date Visits Re quested Visits Authorized [id number] Closed 05/08/2022 1 1 * Radiology Services (Routine) - Closed Specialty Diagnoses / Procedures Referred By Contaliza t Referred To Contact Radiology Diagnoses Nausea and vomiting, unspecified vomiting type Upper abdominal pain Procedures NM HEPATOBILIARY WITH PHARM Elvia Molina, PAC [address] [place] [address] Phone: tel: fax: Referral ID Status Reason Start Date Expiration Date Visits Re quested Visits Authorized [id number] Closed 05/08/2022 1 1 Reason for Visit * Reason Comments New Patient Diarrhea Nausea Encounter Details Date Type Department Care Team (Latest Contact Info) Description 05/08/2022 10:20 AM CDT Office Visit [facility] [place] #2 [place] [address] Elvia Molina, PAC [address] [place] [address] Gastroesophageal reflux disease, unspecified whether esophagitis present [...] 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 [place] diet Stop caffeine/ carbonated beverages/ artificial sweeteners/ [...] department. Conn's Current Therapy 2020 (pp. 213-216). [place], [place]: Elsevier. > Gastroesophageal Reflux Disease, Adult [...] vinegar, hot sauces, and barbecue sauce. ? [place] fruit juices and citrus fruits, such as oranges, gigi, and limes. ? Tomato-based foods, such as red sauce, chili, salsa, and pizza with red sauce. ? Fried and fatty foods, such as donuts, mozambican fries, potato chips, and high- fat dressings. [...] any changes in your symptoms. ?? Take woqr-eyc-tarcoqa and prescription medicines only as told by [...] have new or worsening symptoms. ?? Take gkek-tvu-xlmodrd and prescription medicines only as told by [...] provider. Document Revised: 2021 Document Reviewed: 2021 [employer]WineMeNow Patient Education ?? 2021 [employer]. Diverticulosis Diverticulosis is a condition that develops [...] getting enough exercise. ?? Smoking. ?? Taking dxqq-dym-vemoloz pain medicines, like aspirin and ibuprofen. ?? [...] these instructions at home: Medicines ?? Take puyp-akr-dkkxcvv and prescription medicines only as told by your health care provider. ?? If told by your health care provider, take a fiber supplement or probiotic. Constipation prevention Your condition may cause constipation. To prevent or treat constipation, you may need to: ?? Drink enough fluid to keep your urine pale yellow. ?? Take aktd-bzf-bffchgj or prescription medicines. ?? Eat foods that [...] provider. Document Revised: 04/27/2020 Document Reviewed: 04/27/2020 [employer]ineMeNow Patient Education ?? 2021 [employer]. Diverticulitis Diverticulitis is infection or inflammation [...] at home. Treatment may include: ?? Taking hlec-jhn-jgunizk pain medicines. ?? Following a clear liquid [...] these instructions at home: Medicines ?? Take dsyz-qxb-carewsi and prescription medicines only as told by [...] provider. Document Revised: 07/10/2020 Document Reviewed: 07/10/2020 [employer]Ed Patient Education ?? 2021 [employer]. documented in this encounter Progress Notes [...] really loose and frequently watery. Was using vvev-yon-ddrjepv Imodium but did not seem to continue [...] file Occupational History ??? 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 Smoking status: Never Smoker [...] afford to purchase on a routine basis. [place] diet Stop caffeine/ carbonated beverages/ artificial sweeteners/ [...] department. Conn's Current Therapy 2020 (pp. 213-216). [place], [place]: Elsevier. > Gastroesophageal Reflux Disease, Adult [...] vinegar, hot sauces, and barbecue sauce. ? [place] fruit juices and citrus fruits, such as oranges, gigi, and limes. ? Tomato-based foods, such as red sauce, chili, salsa, and pizza with red sauce. ? Fried and fatty foods, such as donuts, mozambican fries, potato chips, and high- fat dressings. [...] any changes in your symptoms. ?? Take zmqn-lqb-ffnskyl and prescription medicines only as told by [...] have new or worsening symptoms. ?? Take dlii-rvr-ygeredo and prescription medicines only as told by [...] provider. Document Revised: 2021 Document Reviewed: 2021 [employer]Ed Patient Education ?? 2021 [employer]. Diverticulosis Diverticulosis is a condition that [...] getting enough exercise. ?? Smoking. ?? Taking ewvk-tve-epaslsz pain medicines, like aspirin and ibuprofen. ?? [...] these instructions at home: Medicines ?? Take crgz-ksm-gkrkzzm and prescription medicines only as told by your health care provider. ?? If told by your health care provider, take a fiber supplement or probiotic. Constipation prevention Your condition may cause constipation. To prevent or treat constipation, you may need to: ?? Drink enough fluid to keep your urine pale yellow. ?? Take kbsm-iqx-wxddnhn or prescription medicines. ?? Eat foods that [...] provider. Document Revised: 04/27/2020 Document Reviewed: 04/27/2020 ComEd Patient Education ?? 2021 [employer]. Diverticulitis Diverticulitis is infection or inflammation [...] at home. Treatment may include: ?? Taking acdk-xsr-zbmyvmz pain medicines. ?? Following a clear liquid [...] these instructions at home: Medicines ?? Take ciyt-jlo-jepcoxy and prescription medicines only as told by [...] provider. Document Revised: 07/10/2020 Document Reviewed: 07/10/2020 [employer]ineMeNow Patient Education ?? 2021 [employer]. documented in this encounter Plan of Treatment Upcoming Encounters Date Type Department Care Team (Late st Contact Info) Description 11/02/2024 8:15 AM FINGERNAIL TECHNICIAN Office Visit [facility] #2 [place] [address] Dakota Fabian, THOM, SAMPLE BOX MAKER #[address] [address] 11/26/2024 11:30 AM FINGERNAIL TECHNICIAN Office Visit [facility] #2 [place] [address] Maggie Tolentino, PAC [address] [place] [address] Scheduled Orders Name Type Priority Associated Diagnoses [...] Range for this test is Not Detected) [facility] ID NOW 06/24/2022 11:39 AM CDT [facility] Comment:This test was perfor med by a MOLECULAR, NON-PCR method Other NASOPHARYNGEAL STRUCTURE / Unknown Non-Phlebotomy Collection / Unknown 06/24/2022 10:35 AM CDT 06/24/2022 10:41 AM CDT Narrative [facility] - 06/24/2022 11:39 AM CDT [...] information for Clinicians can be found at: https://www.fda.gov/media/024253/download Additional information for Patients can be found at: https://www.fda.gov/media/325787/download Elvia Molina PAC MICROBIOLOGY - GENERAL OR DERABLES Final Result [facility] #[address] [place] [address] * NM HEPATOBILIARY WITH PHARM (05/21/2022 11:51 [...] PM T: ??05/21/2022 4:56 PM Report ID: [id number] Reading Location: ??[id number] Procedure Note Jackson Barrera MD - 05/21/2022 [...] Jackson Barrera M.D. JA: MARISA Report ID: [id number] Reading Location: [id number] IMPRESSION: No scintigraphic evidence of cystic duct [...] Total Score: 0 12/15/19 21 8:53 AM FINGERNAIL TECHNICIAN documented as of this encounter Care Teams Firer Powerhouse Relationship Specialty Start Date End Date John Méndez MD PCP - General Family Medicine 09/28/19 04/26/24 documented as of this encounter
--- OUTSIDE RECORDS SUMMARY | 2024-10-20 04:27 | XMS_ITS | Encounter Summary ---
Author Organization [facility] Address [address] 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 [...] st Contact Info) Description 11/02/2024 8:15 AM HOG BUYER Office Visit [facility] #2 [place] [address] Dakota Fabian APRN, CHIEF SCIENCE OFFICER #[address] [address] 11/26/2024 11:30 AM HOG BUYER Office Visit [facility] #2 [place] [address] Maggie Tolentino, PAC [address] [place] [address] documented as of this encounter Visit Diagnoses Not on filedocumented in this encounter Additional Health Concerns Infection Onset Date Last Indicated Resolved Time MRSA 03/30/2020 03/30/2020 Assessment Noted Time PHQ-9 Depression Total Score: 0 12/15/19 21 8:53 AM HOG BUYER documented as of this encounter Care Teams Respiratory Care Faculty Relationship Specialty Start Date End Date Jonh Méndez MD PCP - General Family Medicine 09/28/19 04/26/24 documented as of this encounter
--- OUTSIDE RECORDS SUMMARY | 2024-10-20 04:27 | XMS_ITS | Encounter Summary ---
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 #2 [place] [address] Dakota Fabian, LOAD PLANNER, EMPLOYMENT ATTORNEY #[address] [address] 11/26/2024 11:30 AM BLOWER INSTALLER Office Visit [facility] - [place] [address] [place] [address] Maggie Tolentino, [facility] #2 [place] [address] documented as of this encounter Visit Diagnoses Not on filedocumented in this encounter Additional Health Concerns Infection Onset Date Last Indicated Resolved Time MRSA 03/30/2020 03/30/2020 Assessment Noted Time PHQ-9 Depression Total Score: 0 12/15/19 21 8:53 AM BLOWER INSTALLER documented as of this encounter Care Teams Commercial Drone Pilot Relationship Specialty Start Date End Date John Méndez MD PCP - General Family Medicine 09/28/19 04/26/24 documented as of this encounter
--- OUTSIDE RECORDS SUMMARY | 2024-10-20 04:27 | XMS_ITS | Encounter Summary ---
Author Organization [facility] Address [address] [facility] 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 Not on [...] Outpatient Visits 2 weeks ago Essential hypertension [facility] - John Luna MD 2 months ago Acute non-recurrent maxillary sinusitis [facility] - John Luna MD 4 months ago Moderate episode of recurrent major depressive disorder (HCC) [facility] John Delarosa MD 5 months ago Moderate episode of recurrent major depressive disorder (HCC) [facility] John Delarosa MD 6 months ago Mixed hyperlipidemia [facility] John Delarosa MD Upcoming Appointments EXTRACTOR LOADER AND UNLOADER - Recent and Past Visits Recent Visits [...] [place] 03/30/20 Office Visit John Méndez MD [facility] Showing recent visits within past 460 [...] st Contact Info) Description 11/02/2024 8:15 AM PHYSICIAN PRACTICE MARKET MANAGER Office Visit [facility] [address] [place] [address] Dakota Fabian APRN, LEGAL CONSULTANT #[address] [address] 11/26/2024 11:30 AM PHYSICIAN PRACTICE MARKET MANAGER Office Visit [facility] [address] [place] [address] Maggie Tolentino, PAC [address]2 [place] [address] documented as of this encounter Visit Diagnoses Diagnosis Sacroiliac joint dysfunction of both sides- Primary Disorders of sacrum Degenerative lumbar disc Degeneration of lumbar or lumbosacral intervertebral disc documented in this encounter Additional Health Concerns Infection Onset Date Last Indicated Resolved Time MRSA 03/30/2020 03/30/2020 COVID - 19 09/11/2024 09/11/2024 09/11/2024 7:21 PM PHYSICIAN PRACTICE MARKET MANAGER Assessment Noted Time PHQ-9 Depression Total Score: 0 12/15/19 8:53 AM PHYSICIAN PRACTICE MARKET MANAGER documented as of this encounter Care Teams Underground Repairer Relationship Specialty Start Date End Date John Méndez MD PCP - General Family Medicine 09/28/19 04/26/24 Dakota Fabian, THOM, LEGAL CONSULTANT #2 [place] [id number] PCP - General Advanced Practice Nurse 04/27/24 documented as of this encounter
--- OUTSIDE RECORDS SUMMARY | 2024-10-20 04:27 | XMS_ITS | Encounter Summary ---
Author Organization [facility] Address [address] [facility] [place] [address] Phone Care Team Providers Care Fac Engineer Name Role Phone John Méndez MD Primary Care Provider [phone] Reason for Visit * Reason Comments Medication Refill Patient is here for medication refill. Sinus Infection Patient states that she is having sinus pressure and runny nose. 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 Transcribed by Asaf at 3:38 AM on 12/26/2021. documented in this encounter Plan of Treatment Upcoming Encounters Date Type Department Care Team (Late st Contact Info) Description 11/02/2024 8:15 AM PASSENGER CAR INSPECTOR Office Visit [facility] [address]2 [place] [address] Dakota Fabian APRN, ADVERTISING SOLICITOR #[address] [address] 11/26/2024 11:30 AM PASSENGER CAR INSPECTOR Office Visit [facility] [address]2 [place] [address] Maggie Tolentino, PAC [address]2 [place] [address] documented as of this encounter Visit Diagnoses [...] Score: 0 12/15/19 21 8:53 AM PASSENGER CAR INSPECTOR documented as of this encounter Care Teams Fac Engineer Relationship Specialty Start Date End Date John Méndez MD PCP - General Family Medicine 09/28/19 04/26/24 documented as of this encounter
--- OUTSIDE RECORDS SUMMARY | 2024-10-20 04:27 | XMS_ITS | Encounter Summary ---
Author Organization [facility] Address [address] 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 file [...] Contact Info) Description 11/02/2024 8:15 AM CHANGE ATTENDANT Office Visit [facility] #2 [place] [address] Dakota Fabian APRN, BLACKSMITH SUPERVISOR #[address] [address] 11/26/2024 11:30 AM CHANGE ATTENDANT Office Visit [facility] #2 [place] [address] Maggie Tolentino, PAC [address] [place] [address] documented as of this encounter Visit Diagnoses Diagnosis Sacroiliac joint dysfunction of both sides Disorders of sacrum Degenerative lumbar disc Degeneration of lumbar or lumbosacral intervertebral disc documented in this encounter Additional Health Concerns Infection Onset Date Last Indicated Resolved Time MRSA 03/30/2020 03/30/2020 COVID - 19 09/11/2024 09/11/2024 09/11/2024 7:21 PM CHANGE ATTENDANT Assessment Noted Time PHQ-9 Depression Total Score: 0 12/15/19 8:53 AM CHANGE ATTENDANT documented as of this encounter Care Teams Medical Services Assistant Relationship Specialty Start Date End Date John Méndez MD PCP - General Family Medicine 09/28/19 04/26/24 Dakota Fabian APRN, BLACKSMITH SUPERVISOR #2 [place] [address] PCP - General Advanced Practice Nurse 04/27/24 documented as of this encounter
--- OUTSIDE RECORDS SUMMARY | 2024-10-20 04:27 | XMS_ITS | Encounter Summary ---
Author Organization [facility] Address [address] 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 5:07 PM Note This is ok [...] st Contact Info) Description 11/02/2024 8:15 AM BRANCH ASSISTANT Office Visit [facility] #2 [place] [address] Dakota Fabian APRN, PRECIPITATE WASHER #[address] [address] 11/26/2024 11:30 AM BRANCH ASSISTANT Office Visit [facility] #2 [place] [address] Maggie Tolentino, PAC [address]2 [place] [address] documented as of this encounter Visit Diagnoses Diagnosis Sacroiliac joint dysfunction of both sides Disorders of sacrum Degenerative lumbar disc Degeneration of lumbar or lumbosacral intervertebral disc documented in this encounter Additional Health Concerns Infection Onset Date Last Indicated Resolved Time MRSA 03/30/2020 03/30/2020 Assessment Noted Time PHQ-9 Depression Total Score: 0 12/15/19 21 8:53 AM BRANCH ASSISTANT documented as of this encounter Care Teams Household Appliance Assembler Relationship Specialty Start Date End Date John Méndez MD PCP - General Family Medicine 09/28/19 04/26/24 documented as of this encounter
--- OUTSIDE RECORDS SUMMARY | 2024-10-20 04:27 | XMS_ITS | Encounter Summary ---
Author Organization [facility] Address [address] [facility] [address] [facility] 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 Verbalized understanding of [...] not included. Maritza Escalera, John Amezcua MD; zeeWAVES Pool 3 minutes ago (8:07 AM) SH Patient made appt on 02/24/2022 at 5:45pm. Patient states her medication will be out by then and is wanting enough sent in to get her to her appt. Please advise. Message text SSING MACHINE OPERATOR HELPER * Telephone Encounter - Antoinette Arora RN - 12/20/2021 1:23 PM CST Last appt 05/01/21 - pt needs follow up with PCP - please call, she does not actively use MyChart. SSING MACHINE OPERATOR HELPER * Telephone Encounter - Antoinette Arora RN [...] [place] 01/11/21 Office Visit John Méndez MD [facility] Showing recent visits within past 365 days and meeting all other requirements Future Appointments No visits were found meeting these conditions. Showing future appointments within next 90 days and meeting all other requirements SSING MACHINE OPERATOR HELPER documented in this encounter Plan of Treatment Upcoming Encounters Date Type Department Care Team (Late st Contact Info) Description 11/02/2024 8:15 AM EMBOSSING MACHINE OPERATOR HELPER Office Visit [facility] #2 [place] [address] Dakota Fabian APRN, SNOWMOBILE MECHANIC #[address] [address] 11/26/2024 11:30 AM EMBOSSING MACHINE OPERATOR HELPER Office Visit [facility] #2 [place] [address] Maggie Tolentino, PAC [address] [place] [address] documented as of this encounter Visit Diagnoses Diagnosis Sacroiliac joint dysfunction of both sides Disorders of sacrum Degenerative lumbar disc Degeneration of lumbar or lumbosacral intervertebral disc documented in this encounter Additional Health Concerns Infection Onset Date Last Indicated Resolved Time MRSA 03/30/2020 03/30/2020 Assessment Noted Time PHQ-9 Depression Total Score: 0 12/15/19 8:53 AM EMBOSSING MACHINE OPERATOR HELPER documented as of this encounter Care Teams Search Coordinator Relationship Specialty Start Date End Date John Méndez MD PCP - General Family Medicine 09/28/19 04/26/24 documented as of this encounter
--- OUTSIDE RECORDS SUMMARY | 2024-10-20 04:27 | XMS_ITS | Encounter Summary ---
Author Organization [facility] Address [address] [facility] 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 [...] 1 month ago Acute non-recurrent maxillary sinusitis [facility] John Luna MD 3 months ago Moderate episode of recurrent major depressive disorder (HCC) [facility] John Delarosa MD 4 months ago Moderate episode of recurrent major depressive disorder (HCC) [facility] John Delarosa MD 5 months ago Mixed hyperlipidemia [facility] John Luna MD 10 months ago Mild intermittent asthma without complication [facility] John Delarosa MD Upcoming Appointments Future Appointments In 1 week John Méndez MD [facility] STARTING SHEET TANK OPERATOR - Recent and Past Visits Recent Visits [...] Contact Info) Description 11/02/2024 8:15 AM CUSTOMER SOLUTIONS SPECIALIST Office Visit [facility] #2 [place] [address] Dakota Fabian APRN, E BUSINESS SPECIALIST #[address] [address] 11/26/2024 11:30 AM CUSTOMER SOLUTIONS SPECIALIST Office Visit [facility] #2 [place] [address] Maggie Tolentino, PAC [address]2 [place] [address] documented as of this encounter Visit Diagnoses Not on filedocumented in this encounter Additional Health Concerns Infection Onset Date Last Indicated Resolved Time MRSA 03/30/2020 03/30/2020 COVID - 19 09/11/2024 09/11/2024 09/11/2024 7:21 PM CUSTOMER SOLUTIONS SPECIALIST Assessment Noted Time PHQ-9 Depression Total Score: 0 12/15/19 8:53 AM CUSTOMER SOLUTIONS SPECIALIST documented as of this encounter Care Teams Stencil Cutter Relationship Specialty Start Date End Date John Méndez MD PCP - General Family Medicine 09/28/19 04/26/24 Dakota Fabian, THOM, E BUSINESS SPECIALIST #[address] [place] [address] PCP - General Advanced Practice Nurse 04/27/24 documented as of this encounter
--- OUTSIDE RECORDS SUMMARY | 2024-10-20 04:27 | XMS_ITS | Encounter Summary ---
Author Organization [facility] Address [address] 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 No / Unsure 10/09/2021 7:12 AM SEARCH COORDINATOR documented as of this encounter Miscellaneous Notes [...] treatment per Care Advice Protocols used: COUGH-A-OH CH COORDINATOR documented in this encounter Plan of Treatment Upcoming Encounters Date Type Department Care Team (Late st Contact Info) Description 11/02/2024 8:15 AM SEARCH COORDINATOR Office Visit [facility] #2 [place] [address] Dakota Fabian APRN, TRUCKLOAD CHECKER #[address] [address] 11/26/2024 11:30 AM SEARCH COORDINATOR Office Visit [facility] #2 [place] [address] Maggie Tolentino, PAC [address] [place] [address] documented as of this encounter Visit Diagnoses Not on filedocumented in this encounter Additional Health Concerns Infection Onset Date Last Indicated Resolved Time MRSA 03/30/2020 03/30/2020 Assessment Noted Time PHQ-9 Depression Total Score: 0 12/15/19 21 8:53 AM SEARCH COORDINATOR documented as of this encounter Care Teams Chemistry Professor Relationship Specialty Start Date End Date John Méndez MD PCP - General Family Medicine 09/28/19 04/26/24 documented as of this encounter
--- OUTSIDE RECORDS SUMMARY | 2024-10-20 04:27 | XMS_ITS | Encounter Summary ---
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 [...] st Contact Info) Description 11/02/2024 8:15 AM PET TECHNOLOGIST Office Visit [facility] - Family Medicine [facility] #2 [place] [address] Dakota Fabian, WEATHER TEACHER, INTERIOR DESIGN CONSULTANT #[address] [address] 11/26/2024 11:30 AM PET TECHNOLOGIST Office Visit [facility] [place] #2 [place] [address] Maggie Tolentino, PAC [address]2 [place] [address] documented as of this encounter Visit Diagnoses Not on filedocumented in this encounter Additional Health Concerns Infection Onset Date Last Indicated Resolved Time MRSA 03/30/2020 03/30/2020 Assessment Noted Time PHQ-9 Depression Total Score: 0 12/15/19 21 8:53 AM PET TECHNOLOGIST documented as of this encounter Care Teams Stores Laborer Relationship Specialty Start Date End Date John Méndez MD PCP - General Family Medicine 09/28/19 04/26/24 documented as of this encounter
--- OUTSIDE RECORDS SUMMARY | 2024-10-20 04:27 | XMS_ITS | Encounter Summary ---
Author Organization [facility] Address [address] [facility] 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 documented in this encounter Plan of Treatment Upcoming Encounters Date Type Department Care Team ([facility] st Contact Info) Description 11/02/2024 8:15 AM AQUATIC FACILITY MANAGER [facility] [place] [address] Dakota Fabian, THOM, FUSING FURNACE LOADER #[address] [address] 11/26/2024 11:30 AM AQUATIC FACILITY MANAGER [facility] [place] [address] Maggie Tolentino, PAC #2 [place] [address] documented as of this encounter Visit Diagnoses Not on filedocumented in this encounter Additional Health Concerns Infection Onset Date Last Indicated Resolved Time MRSA 03/30/2020 03/30/2020 Assessment Noted Time PHQ-9 Depression Total Score: 0 12/15/19 21 8:53 AM AQUATIC FACILITY MANAGER documented as of this encounter Care Teams Hydraulic Press Tender Relationship Specialty Start Date End Date John Méndez MD PCP - General Family Medicine 09/28/19 04/26/24 documented as of this encounter
--- OUTSIDE RECORDS SUMMARY | 2024-10-20 04:27 | XMS_ITS | Encounter Summary ---
Author Organization [facility] Address [address] 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 Not [...] st Contact Info) Description 11/02/2024 8:15 AM RELAY ENGINEER Office Visit [facility] Family [facility] #[address] [place] [address] Dakota Fabian APRN, PRINTED CIRCUIT BOARDS PINNER [address] [address] 11/26/2024 11:30 AM RELAY ENGINEER Office Visit [facility] Family Medicine [facility] #2 [place] [address] Maggie Tolentino, [place] #2 [place] [address] documented as of this encounter Visit Diagnoses Diagnosis Wheezing documented in this encounter Additional Health Concerns Infection Onset Date Last Indicated Resolved Time MRSA 03/30/2020 03/30/2020 COVID - 19 09/11/2024 09/11/2024 09/11/2024 7:21 PM RELAY ENGINEER Assessment Noted Time PHQ-9 Depression Total Score: 0 12/15/19 8:53 AM RELAY ENGINEER documented as of this encounter Care Teams Electrician Supervisor Relationship Specialty Start Date End Date John Méndez MD PCP - General Family Medicine 09/28/19 04/26/24 Dakota Fabian APRN, PRINTED CIRCUIT BOARDS PINNER #[address] [address] PCP - General Advanced Practice Nurse 04/27/24 documented as of this encounter
--- OUTSIDE RECORDS SUMMARY | 2024-10-20 04:27 | XMS_ITS | Encounter Summary ---
Author Organization [facility] Address [address] [facility] 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 [...] Contact Info) Description 11/02/2024 8:15 AM HOME SCHOOL LIAISON OFFICER Office Visit [facility] #2 [place] [address] Dakota Fabian APRN, QUALITY CONTROL MICROBIOLOGIST #[address] [address] 11/26/2024 11:30 AM HOME SCHOOL LIAISON OFFICER Office Visit [facility] #2 [place] [address] Maggie Tolentino, PAC [address] [place] [address] Scheduled Orders Name Type Priority Associated Diagnoses [...] Depression Total Score: 0 12/15/19 8:53 AM HOME SCHOOL LIAISON OFFICER documented as of this encounter Care Teams Pecan Gatherer Relationship Specialty Start Date End Date John Méndez MD PCP - General Family Medicine 09/28/19 04/26/24 documented as of this encounter
--- OUTSIDE RECORDS SUMMARY | 2024-10-20 04:27 | XMS_ITS | Encounter Summary ---
Author Organization [facility] Address [address] [facility] 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 Not on file Not [...] Contact Info) Description 11/02/2024 8:15 AM MANAGER E COMMERCE Office Visit [facility] #2 [place] [address] Dakota Fabian APRN, ENAMEL CRACKER #[address] [address] 11/26/2024 11:30 AM MANAGER E COMMERCE Office Visit [facility] #2 [place] [address] Maggie Tolentino, PAC [address]2 [place] [address] documented as of this encounter Visit Diagnoses Not on filedocumented in this encounter Additional Health Concerns Infection Onset Date Last Indicated Resolved Time MRSA 03/30/2020 03/30/2020 Assessment Noted Time PHQ-9 Depression Total Score: 0 12/15/19 21 8:53 AM MANAGER E COMMERCE documented as of this encounter Care Teams Postal Sorting Officer Relationship Specialty Start Date End Date John Méndez MD PCP - General Family Medicine 09/28/19 04/26/24 documented as of this encounter
--- OUTSIDE RECORDS SUMMARY | 2024-10-20 04:27 | XMS_ITS | Encounter Summary ---
Author Organization [facility] Address [address] [facility] [place] [address] Phone Care Team Providers Care Sample Collector Name Role Phone John Méndez MD Primary Care Provider [phone] Reason for Referral * Radiology Services (Routine) - Closed Specialty Diagnoses / Procedures Referred By Contac t Referred To Contact Radiology Diagnoses Visit for screening mammogram Procedures MARCO A SCREENING BILATERAL DIGITAL W CAD John Méndez MD [address]1 [place] [address] Phone: tel: fax: Referral ID Status Reason Start Date Expiration Date Visits Re quested Visits Authorized [id number] Closed 07/19/2022 1 1 Encounter Details Date Type Department Care Team (Late st Contact Info) Description 07/19/2022 Transcribe Orders [facility] Central Scheduling [address] [place] [address] John Médnez MD [address]1 [place] [address] Visit for screening mammogram (Primary Dx) Social [...] 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 Not on file Not [...] Contact Info) Description 11/02/2024 8:15 AM SUBSTATION MECHANIC Office Visit [facility] #2 [place] [address] Dakota Fabian, THOM, CATTLE EXAMINER #[address] [address] 11/26/2024 11:30 AM SUBSTATION MECHANIC Office Visit [facility] #2 [place] [address] Maggie Tolentino, PAC [address] [place] [address] Scheduled Orders Name Type Priority Associated Diagnoses [...] Depression Total Score: 0 12/15/19 8:53 AM SUBSTATION MECHANIC documented as of this encounter Care Teams Sample Collector Relationship Specialty Start Date End Date John Méndez MD PCP - General Family Medicine 09/28/19 04/26/24 documented as of this encounter
--- OUTSIDE RECORDS SUMMARY | 2024-10-20 04:27 | XMS_ITS | Encounter Summary ---
Author Organization [facility] Address [address] 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 Not on file Not [...] Contact Info) Description 11/02/2024 8:15 AM AUTO RADIATOR MECHANIC Office Visit [facility] #2 [place] [address] Dakota Fabian APRN, BEE ROBBER #[address] [address] 11/26/2024 11:30 AM AUTO RADIATOR MECHANIC Office Visit [facility] #2 [place] [address] Maggie Tolentino, PAC [address] [place] [address] documented as of this encounter Visit Diagnoses Diagnosis BP check- Primary Screening for hypertension documented in this encounter Additional Health Concerns Infection Onset Date Last Indicated Resolved Time MRSA 03/30/2020 03/30/2020 Assessment Noted Time PHQ-9 Depression Total Score: 0 12/15/19 8:53 AM AUTO RADIATOR MECHANIC documented as of this encounter Care Teams Flat Optical Element Maker Relationship Specialty Start Date End Date John Méndez MD PCP - General Family Medicine 09/28/19 04/26/24 documented as of this encounter
--- OUTSIDE RECORDS SUMMARY | 2024-10-20 04:27 | XMS_ITS | Encounter Summary ---
Author Organization [facility] Address [address] [facility] [place] 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 GRINDER AND POLISHER * Telephone Encounter - Luther Callaway - 11/26/2021 1:24 PM CST Patient calling, to follow up if the tylenol has been refilled yet. Reviewed the message from the provider below. Patient states she will call next time sooner. Patient notified and verbalized understanding. GRINDER AND POLISHER * Telephone Encounter - Hair Eller RN - 11/23/2021 6:36 PM CST Patient is calling to see if her prescription has been filled. Advised it is still pending and to make sure to call 3-4 days in advance to make sure she does not run out. Patient verbalized understanding. GRINDER AND POLISHER * Telephone Encounter - John Méndez MD [...] they may not be filled that night. GRINDER AND POLISHER * Telephone Encounter - Reta Pereira RN - 11/23/2021 4:16 PM CST Patient is calling regarding her medication refill of Tylenol #3 which is due tomorrow. Please advise and notify patient. GRINDER AND POLISHER documented in this encounter Plan of Treatment Upcoming Encounters Date Type Department Care Team (Late st Contact Info) Description 11/02/2024 8:15 AM LENS GRINDER AND POLISHER Office Visit [facility] #2 [place] [address] Dakota Fabian APRN, CUT OUT MACHINE OPERATOR #[address] [address] 11/26/2024 11:30 AM LENS GRINDER AND POLISHER Office Visit [facility] #2 [place] [address] Maggie Tolentino, PAC [address] [place] [address] documented as of this encounter Visit Diagnoses Not on filedocumented in this encounter Additional Health Concerns Infection Onset Date Last Indicated Resolved Time MRSA 03/30/2020 03/30/2020 Assessment Noted Time PHQ-9 Depression Total Score: 0 12/15/19 21 8:53 AM LENS GRINDER AND POLISHER documented as of this encounter Care Teams Cinder Block Mason Relationship Specialty Start Date End Date John Méndez MD PCP - General Family Medicine 09/28/19 04/26/24 documented as of this encounter
--- OUTSIDE RECORDS SUMMARY | 2024-10-20 04:27 | XMS_ITS | Encounter Summary ---
Author Organization [facility] Address [address] [facility] 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 Not on file Not [...] st Contact Info) Description 11/02/2024 8:15 AM CENTRAL PROCESSING TECHNICIAN Office Visit [facility] #2 [place] [address] Dakota Fabian APRN, CHIEF LIBRARIAN EXTENSION DEPARTMENT #[address] [address] 11/26/2024 11:30 AM CENTRAL PROCESSING TECHNICIAN Office Visit [facility] #2 [place] [address] Maggie Tolentino, PAC [address] [place] [address] documented as of this encounter Visit Diagnoses Not on filedocumented in this encounter Additional Health Concerns Infection Onset Date Last Indicated Resolved Time MRSA 03/30/2020 03/30/2020 Assessment Noted Time PHQ-9 Depression Total Score: 0 12/15/19 8:53 AM CENTRAL PROCESSING TECHNICIAN documented as of this encounter Care Teams Insurance Job Titles Relationship Specialty Start Date End Date John Méndez MD PCP - General Family Medicine 09/28/19 04/26/24 documented as of this encounter
--- OUTSIDE RECORDS SUMMARY | 2024-10-20 04:28 | XMS_ITS | Encounter Summary ---
Author Organization [facility] Address [address] [place] [address] Phone Care Team Providers Care Mechanical Meter Tester Name Role Phone John Méndez MD Primary Care Provider [phone] Reason for Visit * Reason Onset Date Comments Medication Refill Medication Refill 01/08/2021 Encounter Details Date Type Department Care Team (Late st Contact Info) Description 01/08/[address] 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 No / Unsure 12/14/2020 8:23 AM STABILIZING MACHINE OPERATOR documented as of this encounter Miscellaneous [...] st Contact Info) Description 11/02/2024 8:15 AM STABILIZING MACHINE OPERATOR Office Visit [facility] [address]2 [place] [address] Dakota Fabian APRN, SALES SYSTEMS ENGINEER #[address] [address] 11/26/2024 11:30 AM STABILIZING MACHINE OPERATOR Office Visit [facility] #2 [place] [address] Maggie Tolentino, PAC [address] [place] [address] documented as of this encounter Visit Diagnoses Not on filedocumented in this encounter Additional Health Concerns Infection Onset Date Last Indicated Resolved Time MRSA 03/30/2020 03/30/2020 Assessment Noted Time PHQ-9 Depression Total Score: 0 12/15/19 21 8:53 AM STABILIZING MACHINE OPERATOR documented as of this encounter Care Teams Mechanical Meter Tester Relationship Specialty Start Date End Date John Méndez MD PCP - General Family Medicine 09/28/19 04/26/24 documented as of this encounter
--- OUTSIDE RECORDS SUMMARY | 2024-10-20 04:28 | XMS_ITS | Encounter Summary ---
Author Organization [facility] Address [address] 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 ? Sinus congestion (pressure, fullness) present > 10 days Protocols used: SINUS PAIN OR [id number] documented in this encounter Plan of Treatment Upcoming Encounters Date Type Department Care Team (Late st Contact Info) Description 11/02/2024 8:15 AM EMBOSSING TOOLSETTER Office Visit [facility] #2 [place] [address] Dakota Fabian APRN, EDUCATIONAL THERAPY TEACHER #[address] [address] 11/26/2024 11:30 AM EMBOSSING TOOLSETTER Office Visit [facility] #2 [place] [address] Maggie Tolentino, PAC [address] [place] [address] documented as of this encounter Visit Diagnoses Not on filedocumented in this encounter Additional Health Concerns Infection Onset Date Last Indicated Resolved Time MRSA 03/30/2020 03/30/2020 Assessment Noted Time PHQ-9 Depression Total Score: 0 12/15/19 21 8:53 AM EMBOSSING TOOLSETTER documented as of this encounter Care Teams Warp Clamper Relationship Specialty Start Date End Date John Méndez MD PCP - General Family Medicine 09/28/19 04/26/24 documented as of this encounter
--- OUTSIDE RECORDS SUMMARY | 2024-10-20 04:28 | XMS_ITS | Encounter Summary ---
Author Organization [facility] Address [address] [facility] 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 Not on file Not [...] 1 week ago Acute non-recurrent maxillary sinusitis [facility] John Delarosa MD 2 months ago Moderate episode of recurrent major depressive disorder (HCC) [facility] John Delarosa MD 3 months ago Moderate episode of recurrent major depressive disorder (HCC) [facility] John Delarosa MD 4 months ago Mixed hyperlipidemia [facility] John Delarosa MD 9 months ago Mild intermittent asthma without complication [facility] John Delarosa MD Upcoming Appointments Future Appointments In 2 weeks John Méndez MD [facility] Dave Werner [facility] LEATHER GOODS MAKER - Recent and Past Visits Recent [...] st Contact Info) Description 11/02/2024 8:15 AM PAVING MACHINE OPERATOR Office Visit [facility] [address] [place] [address] Dakota Fabian APRN, PYTHON DJANGO DEVELOPER #[address] [address] 11/26/2024 11:30 AM PAVING MACHINE OPERATOR Office Visit [facility] [address] [place] [address] Maggie Tolentino, PAC [address] [place] [address] documented as of this encounter Visit Diagnoses Not on filedocumented in this encounter Additional Health Concerns Infection Onset Date Last Indicated Resolved Time MRSA 03/30/2020 03/30/2020 COVID - 19 09/11/2024 09/11/2024 09/11/2024 7:21 PM PAVING MACHINE OPERATOR Assessment Noted Time PHQ-9 Depression Total Score: 0 12/15/19 21 8:53 AM PAVING MACHINE OPERATOR documented as of this encounter Care Teams Director Pediatric Relationship Specialty Start Date End Date John Méndez MD PCP - General Family Medicine 09/28/19 04/26/24 Dakota Fabian APRN, PYTHON DJANGO DEVELOPER #[address] [place] [id number] PCP - General Advanced Practice Nurse 04/27/24 documented as of this encounter
--- OUTSIDE RECORDS SUMMARY | 2024-10-20 04:28 | XMS_ITS | Encounter Summary ---
Author Organization [facility] Address [address] 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 No / Unsure 11/20/2020 6:37 AM HOT SHOT documented as of this encounter Miscellaneous Notes * Telephone Encounter - Kelly Palacios RN - 11/24/2020 3:39 PM CST Called and spoke with patient regarding resultslet her know that all of her labs are ok her urine did not show a uti. Her lipid panel is good. Her cbc and thyroid are normal. Patient verbalizes understanding. SHOT * Telephone Encounter - Kelly Palacios RN - 11/24/2020 3:39 PM CST ----- Message from John Méndez MD sent at 11/24/2020 3:32 PM HOT SHOT ----- Let her know that all of her labs are ok her urine did not show a uti. Her lipid panel is good. Hercbc and thyroid are normal. SHOT documented in this encounter Plan of Treatment Upcoming Encounters Date Type Department Care Team (Late st Contact Info) Description 11/02/2024 8:15 AM HOT SHOT Office Visit [facility] #2 [place] [address] Dakota Fabian APRN, WELT STITCH CLEANER #[address] [address] 11/26/2024 11:30 AM HOT SHOT Office Visit [facility] #2 [place] [address] Maggie Tolentino, MILTON [address]2 [place] [address] documented as of this encounter Visit Diagnoses Not on filedocumented in this encounter Additional Health Concerns Infection Onset Date Last Indicated Resolved Time MRSA 03/30/2020 03/30/2020 Assessment Noted Time PHQ-9 Depression Total Score: 0 10/19/19 12:31 PM HOT SHOT documented as of this encounter Care Teams Life Skills Coordinator Volunteer Relationship Specialty Start Date End Date John Méndez MD PCP - General Family Medicine 09/28/19 04/26/24 documented as of this encounter
--- OUTSIDE RECORDS SUMMARY | 2024-10-20 04:28 | XMS_ITS | Encounter Summary ---
Author Organization [facility] Address [address] 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 ?? You may use an eiwo-wjn-yfqixhq pain medicine to control pain, unless another [...] abscess ?? Boil returns after getting better [employer] last reviewed this educational content on 05/13/2019 ?? [phone] [employer]. [address] [place] [address]. All rights reserved. This information is not [...] you may be told to use an rcmw-hxm-oclcldw antibiotic cream. Follow all instructions when using [...] ?? Rash improves, but then comes back?? [employer] last reviewed this educational content on 05/13/2019 ?? [phone] [employer]. [address] [place] [address], [place] [address]. All rights reserved. This information is not intended as a substitute for professional medical care. Always follow your healthcare professional's instructions. Understanding Carbuncles A carbuncle (LQG-xcd-crup) is a painful boil under the skin. [...] better, or get worse ?? New symptoms [employer] last reviewed this educational content on 03/13/2019 ?? [phone] [employer]. [address] [place] [address]. All rights reserved. This information is not [...] file Occupational History ??? 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 Financial resource strain: Not [...] file Gets together: Not on file Attends bahai service: Not on file Active member of [...] Contact Info) Description 11/02/2024 8:15 AM DIRECTOR HR COMMUNICATIONS Office Visit [facility] #2 [place] [address] Dakota Fabian, OUTREACH CONSULTANT, AFTERNOON NANNY #[address] [address] 11/26/2024 11:30 AM DIRECTOR HR COMMUNICATIONS Office Visit [facility] #2 [place] [address] Maggie Tolentino, PAC [address] [place] [address] documented as of this encounter Procedures Procedure Name Priority Date/Time Associated Diagnosis Comments CULTURE, AEROBIC Routine 03/30/2020 2:45 PM CDT Carbuncle of left axilla documented in this encounter Results * CULTURE, AEROBIC (03/30/2020 2:45 PM CDT) CULTURE RESULTS METHICILLIN RESISTANT STAPHYLOCOCCUS AUREUS 04/01/2020 8:05 AM CDT [facility] Culture ABSCESS MORPHOLOGY / Unknown [...] ORDERABLE S Final Result Performing Organization Address City/State/[facility] Co de Phone Number [facility] [address] [place] [address], documented in this encounter Visit Diagnoses Diagnosis Carbuncle of left axilla- Primary Carbuncle and furuncle of upper arm and forearm documented in this encounter Additional Health Concerns Assessment Noted Time PHQ-9 Depression Total Score: 0 10/19/19 20 12:31 PM DIRECTOR HR COMMUNICATIONS documented as of this encounter Care Teams Technical Trainer Relationship Specialty Start Date End Date John Méndez MD PCP - General Family Medicine 09/28/19 04/26/24 documented as of this encounter
--- OUTSIDE RECORDS SUMMARY | 2024-10-20 04:28 | XMS_ITS | Encounter Summary ---
Author Organization [facility] Address [address] 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 documented in this encounter Plan of Treatment Upcoming Encounters Date Type Department Care Team (Late st Contact Info) Description 11/02/2024 8:15 AM MANAGER OF CONSTRUCTION Office Visit [facility] #2 [place] [address] Dakota Fabian APRN, PLATFORM SOFTWARE ENGINEER #[address] [address] 11/26/2024 11:30 AM MANAGER OF CONSTRUCTION Office Visit [facility] #2 [place] [address] Maggie Tolentino, PAC [address] [place] [address] documented as of this encounter Visit Diagnoses Not on filedocumented in this encounter Additional Health Concerns Infection Onset Date Last Indicated Resolved Time MRSA 03/30/2020 03/30/2020 Assessment Noted Time PHQ-9 Depression Total Score: 0 10/19/19 20 12:31 PM MANAGER OF CONSTRUCTION documented as of this encounter Care Teams Nurse Consultant Relationship Specialty Start Date End Date John Méndez MD PCP - General Family Medicine 09/28/19 04/26/24 documented as of this encounter
--- OUTSIDE RECORDS SUMMARY | 2024-10-20 04:28 | XMS_ITS | Encounter Summary ---
Author Organization [facility] Address [address] 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 Not on file [...] bite wound, accidental or unintentional, subsequent encounter [facility] Aylin Juan APN, MIGUEL ANGEL 5 months ago Brown recluse spider bite or sting, accidental or unintentional, subsequent encounter [facility] Aylin Juan APN, MIGUEL ANGEL 5 months ago Acute URI [facility] Dakota Fabian APN, MIGUEL ANGEL Upcoming Appointments documented in this encounter Plan of Treatment Upcoming Encounters Date Type Department Care Team (Late st Contact Info) Description 11/02/2024 8:15 AM RAILROAD CONDUCTOR Office Visit [facility] [address]2 [place] [address] Dakota Fabian APRN, OYSTER PREPARER #[address] [address] 11/26/2024 11:30 AM RAILROAD CONDUCTOR Office Visit [facility] [address]2 [place] [address] Maggie Tolentino PAC [address]2 [place] [address] documented as of this encounter Visit Diagnoses Not on filedocumented in this encounter Additional Health Concerns Infection Onset Date Last Indicated Resolved Time MRSA 03/30/2020 03/30/2020 COVID - 19 09/11/2024 09/11/2024 09/11/2024 7:21 PM RAILROAD CONDUCTOR Assessment Noted Time PHQ-9 Depression Total Score: 0 10/19/19 20 12:31 PM RAILROAD CONDUCTOR documented as of this encounter Care Teams Jig And Fixture Builder Relationship Specialty Start Date End Date John Méndez MD PCP - General Family Medicine 09/28/19 04/26/24 Dakota Fabian APRN, OYSTER PREPARER #[address] [address] PCP - General Advanced Practice Nurse 04/27/24 documented as of this encounter
--- OUTSIDE RECORDS SUMMARY | 2024-10-20 04:28 | XMS_ITS | Encounter Summary ---
Author Organization [facility] Address [address] 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 on file Not [...] month ago Mild intermittent asthma without complication [facility] Medical [facility] - John Luna MD 2 months ago Acute non-recurrent maxillary sinusitis [facility] - John Luna MD 3 months ago Carbuncle of left axilla [facility] John Delarosa MD 7 months ago Influenza [facility] John Delarosa MD 7 months ago Acute maxillary sinusitis, recurrence not specified [facility] John Delarosa MD Upcoming Appointments Future Appointments In [address] Mammography, [facility] AMBASSADOR - Recent and Past Visits Recent Visits Date Type Provider Dept 06/09/20 Office Visit John Méndez MD [facility] 05/02/20 Office Visit John Méndez MD [facility] 03/30/20 Office Visit John Méndez MD [facility] 12/14/19 Office Visit John Méndez MD [facility] 12/02/19 Office Visit John Méndez MD [facility] 11/02/19 Office Visit Aylin Juan APN, EVENT DECORATOR AND DESIGNER [facility] 10/19/19 Office Visit Aylin Juan APN, MIGUEL ANGEL [facility] 10/12/19 Office Visit Dakota Fabian APN, MIGUEL ANGEL [facility] 09/28/19 Office Visit John Méndez MD [facility] Showing recent visits within past 460 days [...] st Contact Info) Description 11/02/2024 8:15 AM STARTING GATE DRIVER Office Visit [facility] [address]2 [place] [address] Dakota Fabian APRN, EVENT DECORATOR AND DESIGNER #[address] [address] 11/26/2024 11:30 AM STARTING GATE DRIVER Office Visit [facility] [address] [place] [address] Maggie Tolentino, [place] [address] [place] [address] documented as of this encounter Visit Diagnoses Not on filedocumented in this encounter Additional Health Concerns Infection Onset Date Last Indicated Resolved Time MRSA 03/30/2020 03/30/2020 COVID - 19 09/11/2024 09/11/2024 09/11/2024 7:21 PM STARTING GATE DRIVER Assessment Noted Time PHQ-9 Depression Total Score: 0 10/19/19 20 12:31 PM STARTING GATE DRIVER documented as of this encounter Care Teams Regroover Relationship Specialty Start Date End Date John Méndez MD PCP - General Family Medicine 09/28/19 04/26/24 Dakota Fabian APRN, EVENT DECORATOR AND DESIGNER [address] [place] [address] PCP - General Advanced Practice Nurse 04/27/24 documented as of this encounter
--- OUTSIDE RECORDS SUMMARY | 2024-10-20 04:28 | XMS_ITS | Encounter Summary ---
Author Organization [facility] Address [address] [place] [address] Phone Care Team Providers Care Performance Test Architect Name Role Phone John Méndez MD Primary Care Provider Dakota Fabian APRN PAINTER INTERIOR FINISH Primary Care Pr ovider Reason for Visit * Reason Comments Medication Refill Encounter Details Date Type Department Care Team (Late st Contact Info) Description 03/11/2021 Refill [facility] Family Medicine 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 on file [...] Contact Info) Description 11/02/2024 8:15 AM EMERGENCY SERVICES DIRECTOR Office Visit [facility] #2 [place] [address] Dakota Fabian APRN, PAINTER INTERIOR FINISH [address] [address] 11/26/2024 11:30 AM EMERGENCY SERVICES DIRECTOR Office Visit [facility] - Family [facility] #2 [place] [address] Maggie Tolentino PAC [address] [place] [address] documented as of this encounter Visit Diagnoses Not on filedocumented in this encounter Additional Health Concerns Infection Onset Date Last Indicated Resolved Time MRSA 03/30/2020 03/30/2020 COVID - 19 09/11/2024 09/11/2024 09/11/2024 7:21 PM EMERGENCY SERVICES DIRECTOR Assessment Noted Time PHQ-9 Depression Total Score: 0 12/15/19 8:53 AM EMERGENCY SERVICES DIRECTOR documented as of this encounter Care Teams Performance Test Architect Relationship Specialty Start Date End Date John Méndez MD PCP - General Family Medicine 09/28/19 04/26/24 Dakota Fabian, JUNIOR WEB DEVELOPER, PAINTER INTERIOR FINISH #[address] [address] PCP - General Advanced Practice Nurse 04/27/24 documented as of this encounter
--- OUTSIDE RECORDS SUMMARY | 2024-10-20 04:28 | XMS_ITS | Encounter Summary ---
Author Organization [facility] 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 [...] st Contact Info) Description 11/02/2024 8:15 AM BED OPERATOR Office Visit [facility] Medical Group - Family Medicine [facility] #2 [place] [address] Dakota Fabian, ONCOLOGY ADMIN, CUSTOMER EXPERIENCE ASSOCIATE #[address] [address] 11/26/2024 11:30 AM BED OPERATOR Office Visit [facility] - [place] [address] [place] [address] Maggie Toletnino, PAC [address] [place] [address] documented as of this encounter Visit Diagnoses Not on filedocumented in this encounter Additional Health Concerns Infection Onset Date Last Indicated Resolved Time MRSA 03/30/2020 03/30/2020 Assessment Noted Time PHQ-9 Depression Total Score: 0 12/15/19 21 8:53 AM BED OPERATOR documented as of this encounter Care Teams Wagon Washer Relationship Specialty Start Date End Date John Méndez MD PCP - General Family Medicine 09/28/19 04/26/24 documented as of this encounter
--- OUTSIDE RECORDS SUMMARY | 2024-10-20 04:28 | XMS_ITS | Encounter Summary ---
Author Organization [facility] Address [address] 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 No / Unsure 12/14/2020 8:23 AM CHECKERING MACHINE OPERATOR documented as of this encounter Miscellaneous Notes * Telephone Encounter - Lindsey Goldberg RN - 12/25/2020 6:00 PM CDT Patient calling. States that she thought that her prescription for Tylenol #3 would be ready to pharmacy picking technician on 12/26 in the morning. She called [...] told that she would be able to pharmacy picking technician her new prescription for tylenol #3 on 12/26. Patient called the pharmacy to verify that they had received the order. States they told her they never received it. Chart reviewed. Tylenol #3 not ordered. Pharmacy verified. * Telephone Encounter - Jacinta Haro RN - 12/21/2020 2:28 PM CST Tylenol 4 was cancelled KERING MACHINE OPERATOR * Telephone Encounter - John Méndez [...] notes but sometimes I miss one. Thanks. KERING MACHINE OPERATOR * Telephone Encounter - Jacinta Haro RN - 12/21/2020 1:48 PM CST Pt has not picked this up yet she can not fill it until the per pharmacist KERING MACHINE OPERATOR * Telephone Encounter - John Méndez MD - 12/21/2020 11:57 AM CST If we can make sure that she has not filled the tylenol with codeine yet then I will send in the different dose. KERING MACHINE OPERATOR * Telephone Encounter - Antoinette Weeks [...] has increased her back pain. Please advise. KERING MACHINE OPERATOR documented in this encounter Plan of Treatment Upcoming Encounters Date Type Department Care Team (Late st Contact Info) Description 11/02/2024 8:15 AM CHECKERING MACHINE OPERATOR Office Visit [facility] #2 [place] [address] Dakota Fabian APRN, PROCEDURE RN #[address] [address] 11/26/2024 11:30 AM CHECKERING MACHINE OPERATOR Office Visit [facility] #2 [place] [address] Magige Tolentino, MILTON [address] [place] [address] documented as of this encounter Visit Diagnoses Not on filedocumented in this encounter Additional Health Concerns Infection Onset Date Last Indicated Resolved Time MRSA 03/30/2020 03/30/2020 COVID - 19 09/11/2024 09/11/2024 09/11/2024 7:21 PM CHECKERING MACHINE OPERATOR Assessment Noted Time PHQ-9 Depression Total Score: 0 12/15/19 8:53 AM CHECKERING MACHINE OPERATOR documented as of this encounter Care Teams Outboard Technician Relationship Specialty Start Date End Date John Méndez MD PCP - General Family Medicine 09/28/19 04/26/24 Dakota Fabian APRN, PROCEDURE RN #[address] [address] PCP - General Advanced Practice Nurse 04/27/24 documented as of this encounter
--- OUTSIDE RECORDS SUMMARY | 2024-10-20 04:28 | XMS_ITS | Encounter Summary ---
Author Organization [facility] Address [address] 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 Not on [...] st Contact Info) Description 11/02/2024 8:15 AM SHIPS EQUIPMENT ENGINEER Office Visit [facility] #2 [place] [address] Dakota Fabian, THOM, HABITAT MANAGEMENT COORDINATOR #[address] [address] 11/26/2024 11:30 AM SHIPS EQUIPMENT ENGINEER Office Visit [facility] #2 [place] [address] Maggie Tolentino, PAC [address] [place] [address] documented as of this encounter Visit Diagnoses Diagnosis Need for vaccination- Primary Need for prophylactic vaccination and inoculation against unspecified single disease documented in this encounter Additional Health Concerns Infection Onset Date Last Indicated Resolved Time MRSA 03/30/2020 03/30/2020 Assessment Noted Time PHQ-9 Depression Total Score: 0 12/15/19 21 8:53 AM SHIPS EQUIPMENT ENGINEER documented as of this encounter Care Teams Brazing Machine Tender Relationship Specialty Start Date End Date John Méndez MD PCP - General Family Medicine 09/28/19 04/26/24 documented as of this encounter
--- OUTSIDE RECORDS SUMMARY | 2024-10-20 04:28 | XMS_ITS | Encounter Summary ---
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 No / Unsure 11/15/2020 9:30 AM GALLERY ASSISTANT documented as of this encounter Plan of Treatment Upcoming Encounters Date Type Department Care Team (Late st Contact Info) Description 11/02/2024 8:15 AM GALLERY ASSISTANT Office Visit [facility] Medical Group - Family Medicine [facility] [address]2 [place] [address] Dakota Fabian, MEAT PROCESSING CENTER MANAGER, MARKET DIRECTOR #[address] [address] 11/26/2024 11:30 AM GALLERY ASSISTANT Office Visit [facility] - [facility] - [place] #2 [place] [address] Maggie Tolentino, PAC [address] [place] [address] documented as of this encounter Visit Diagnoses Not on filedocumented in this encounter Additional Health Concerns Infection Onset Date Last Indicated Resolved Time MRSA 03/30/2020 03/30/2020 Assessment Noted Time PHQ-9 Depression Total Score: 0 10/19/19 20 12:31 PM GALLERY ASSISTANT documented as of this encounter Care Teams Patient Relations Manager Relationship Specialty Start Date End Date John Méndez MD PCP - General Family Medicine 09/28/19 04/26/24 documented as of this encounter
--- OUTSIDE RECORDS SUMMARY | 2024-10-20 04:28 | XMS_ITS | Encounter Summary ---
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 [...] Contact Info) Description 11/02/2024 8:15 AM MEDICAL SERVICE REPRESENTATIVE Office Visit [facility] - Family Medicine [facility] #2 [place] [address] Dakota Fabian, TELEPHONY ENGINEER, FINANCIAL UNDERWRITER #[address] [address] 11/26/2024 11:30 AM MEDICAL SERVICE REPRESENTATIVE Office Visit [facility] - Family Medicine - [place] [address] [place] [address] Maggie Tolentino, PAC [address] [place] [address] documented as of this encounter Visit Diagnoses Not on filedocumented in this encounter Additional Health Concerns Infection Onset Date Last Indicated Resolved Time MRSA 03/30/2020 03/30/2020 Assessment Noted Time PHQ-9 Depression Total Score: 0 12/15/19 21 8:53 AM MEDICAL SERVICE REPRESENTATIVE documented as of this encounter Care Teams Web Operations Administrator Relationship Specialty Start Date End Date John Méndez MD PCP - General Family Medicine 09/28/19 04/26/24 documented as of this encounter
--- OUTSIDE RECORDS SUMMARY | 2024-10-20 04:28 | XMS_ITS | Encounter Summary ---
Author Organization [facility] Address [address] 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 I spoke to Antoinette at office and is working on her refills in the office and should sign today or tomorrow. Patient advised. AL PROGRAM MANAGER AL PROGRAM MANAGER * Telephone Encounter - Miguel Anisha Villarreal - 09/14/2020 11:15 AM CST Patient is calling to check status of refill request for Tylenol #4 . She is out of medication and would like to pick this up today. AL PROGRAM MANAGER * Telephone Encounter - Antoinette Arora RN [...] months ago Mild intermittent asthma without complication [facility] - John Luna MD 4 months ago Acute non-recurrent maxillary sinusitis [facility] - John Luna MD 5 months ago Carbuncle of left axilla [facility] - John Luna MD 9 months ago [facility] 9 months ago Acute maxillary sinusitis, recurrence not specified [facility] John Méndez MD Upcoming Appointments PIG MACHINE OPERATOR - Recent and Past Visits Recent Visits Date Type Provider Dept 06/09/20 Office Visit John Méndez, MD [facility] 05/02/20 Office Visit John Méndez, MD [facility] 03/30/20 Office Visit John Méndez, MD [place] [place] 12/14/19 Office Visit John Méndez, [facility] 12/02/19 Office Visit John Méndez, MD [facility] [place] 11/02/19 Office Visit Aylin Juan APN, MIGUEL ANGEL [facility] [place] 10/19/19 Office Visit Aylin Juan APN, WAREHOUSE INSULATION WORKER [facility] [place] 10/12/19 Office Visit Dakota Fabian APN, MIGUEL ANGEL [facility] [place] 09/28/19 Office Visit John Méndez, [facility] Showing recent visits within past 460 days with a meds authorizing provider and meeting all other requirements Future Appointments No visits were found meeting these conditions. Showing future appointments within next 90 days with a meds authorizing provider and meeting all other requirements AL PROGRAM MANAGER documented in this encounter Plan of Treatment Upcoming Encounters Date Type Department Care Team (Late st Contact Info) Description 11/02/2024 8:15 AM GLOBAL PROGRAM MANAGER Office Visit [facility] [address]2 [place] [address] Dakota Fabian APRN, WAREHOUSE INSULATION WORKER #[address] [address] 11/26/2024 11:30 AM GLOBAL PROGRAM MANAGER Office Visit [facility] #2 [place] [address] Maggie Tolentino, PAC [address] [place] [address] documented as of this encounter Visit Diagnoses Not on filedocumented in this encounter Additional Health Concerns Infection Onset Date Last Indicated Resolved Time MRSA 03/30/2020 03/30/2020 COVID - 19 09/11/2024 09/11/2024 09/11/2024 7:21 PM GLOBAL PROGRAM MANAGER Assessment Noted Time PHQ-9 Depression Total Score: 0 10/19/19 20 12:31 PM GLOBAL PROGRAM MANAGER documented as of this encounter Care Teams [employer] Relationship Specialty Start Date End Date John Méndez MD PCP - General Family Medicine 09/28/19 04/26/24 Dakota Fabian APRN, WAREHOUSE INSULATION WORKER #[address] [address] PCP - General Advanced Practice Nurse 04/27/24 documented as of this encounter
--- OUTSIDE RECORDS SUMMARY | 2024-10-20 04:28 | XMS_ITS | Encounter Summary ---
Author Organization [facility] Address [address] 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 OR INSPECTOR * Telephone Encounter - Kelly Palacios RN [...] months ago Mild intermittent asthma without complication [facility] - John Luna MD 5 months ago Acute non-recurrent maxillary sinusitis [facility] John Delarosa MD 6 months ago Carbuncle of left axilla [facility] John Delarosa MD 10 months ago Influenza [facility] John Delarosa MD 10 months ago Acute maxillary sinusitis, recurrence not specified [facility] John Delarosa MD Upcoming Appointments BALL MACHINE OPERATOR - Recent and Past Visits Recent Visits Date Type Provider Dept 06/09/20 Office Visit John Méndez MD [facility] [place] 05/02/20 Office Visit John Méndez MD [facility] 03/30/20 Office Visit John Méndez MD [facility] 12/14/19 Office Visit John Méndez MD [facility] 12/02/19 Office Visit John Méndez MD [facility] 11/02/19 Office Visit Aylin Juan APN, MIGUEL ANGEL [facility] 10/19/19 Office Visit Aylin Juan APN, BLOOD BANK MANAGER [facility] [place] 10/12/19 Office Visit Dakota Fabian APN, MIGUEL ANGEL [facility] [place] 09/28/19 Office Visit John Méndez MD [facility] [place] Showing recent visits within past 460 days with a meds authorizing provider and meeting all other requirements Future Appointments No visits were found meeting these conditions. Showing future appointments within next 90 days with a meds authorizing provider and meeting all other requirements OR INSPECTOR documented in this encounter Plan of Treatment Upcoming Encounters Date Type Department Care Team (Late st Contact Info) Description 11/02/2024 8:15 AM MIRROR INSPECTOR Office Visit [facility] [address]2 [place] [address] Daktoa Fabian APRN, BLOOD BANK MANAGER #[address] [address] 11/26/2024 11:30 AM MIRROR INSPECTOR Office Visit [facility] [address]2 [place] [address] Maggie Tolentino, PAC [address] [place] [address] documented as of this encounter Visit Diagnoses Not on filedocumented in this encounter Additional Health Concerns Infection Onset Date Last Indicated Resolved Time MRSA 03/30/2020 03/30/2020 COVID - 19 09/11/2024 09/11/2024 09/11/2024 7:21 PM MIRROR INSPECTOR Assessment Noted Time PHQ-9 Depression Total Score: 0 10/19/19 20 12:31 PM MIRROR INSPECTOR documented as of this encounter Care Teams Suit Attendant Relationship Specialty Start Date End Date John Méndez MD PCP - General Family Medicine 09/28/19 04/26/24 Dakota Fabian APRN, BLOOD BANK MANAGER #[address] [address] PCP - General Advanced Practice Nurse 04/27/24 documented as of this encounter
--- OUTSIDE RECORDS SUMMARY | 2024-10-20 04:28 | XMS_ITS | Encounter Summary ---
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 [...] st Contact Info) Description 11/02/2024 8:15 AM GRAPHIC USER INTERFACE DESIGNER Office Visit [facility] Medical [facility] - Family Medicine [facility] #2 [place] [address] Dakota Fabian, ELECTRICAL CONTINUITY TESTER, FOUNTAIN SUPERVISOR #[address] [address] 11/26/2024 11:30 AM GRAPHIC USER INTERFACE DESIGNER Office Visit [facility] - [facility] - [place] [address] [place] [address] Maggie Tolentino, [facility] [address]2 [place] [address] documented as of this encounter Visit Diagnoses Not on filedocumented in this encounter Additional Health Concerns Assessment Noted Time PHQ-9 Depression Total Score: 0 10/19/19 20 12:31 PM GRAPHIC USER INTERFACE DESIGNER documented as of this encounter Care Teams House Mover Relationship Specialty Start Date End Date John Méndez MD PCP - General Family Medicine 09/28/19 04/26/24 documented as of this encounter
--- OUTSIDE RECORDS SUMMARY | 2024-10-20 04:28 | XMS_ITS | Encounter Summary ---
Author Organization [facility] Address [address] 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 No / Unsure 12/14/2020 8:23 AM FLATWORK FOLDER documented as of this encounter Miscellaneous Notes [...] Information acetaminophen-codeine (TYLENOL #3) 300-30 MG Tablet [[id number]] 1329 Status: Active Ordering user: John Méndez MD 12/26/20 1329 Authorized by: John Méndez MD PRN reasons: Moderate or more severe pain Frequency: BID PRN 12/26/20 - Until Discontinued Pharmacy [id number] [place], [place] - [address] [facility] * Telephone Encounter - Antoinette Arora RN [...] st Contact Info) Description 11/02/2024 8:15 AM FLATWORK FOLDER Office Visit [facility] #2 [place] [address] Dakota Fabian APRN, TRAINING AND DEVELOPMENT PROFESSIONAL #[address] [address] 11/26/2024 11:30 AM FLATWORK FOLDER Office Visit [facility] #2 [place] [address] Maggie Tolentino, PAC [address] [place] [address] documented as of this encounter Visit Diagnoses Not on filedocumented in this encounter Additional Health Concerns Infection Onset Date Last Indicated Resolved Time MRSA 03/30/2020 03/30/2020 COVID - 19 09/11/2024 09/11/2024 09/11/2024 7:21 PM FLATWORK FOLDER Assessment Noted Time PHQ-9 Depression Total Score: 0 12/15/19 21 8:53 AM FLATWORK FOLDER documented as of this encounter Care Teams Head Waiter/Waitress Relationship Specialty Start Date End Date John Méndez MD PCP - General Family Medicine 09/28/19 04/26/24 Dakota Fabian, BANK TELLER, TRAINING AND DEVELOPMENT PROFESSIONAL #[address] [address] PCP - General Advanced Practice Nurse 04/27/24 documented as of this encounter
--- OUTSIDE RECORDS SUMMARY | 2024-10-20 04:28 | XMS_ITS | Encounter Summary ---
Author Organization [facility] Address [address] 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 file [...] months ago Mild intermittent asthma without complication [facility] - John Luna MD 3 months ago Acute non-recurrent maxillary sinusitis [facility] John Delarosa MD 4 months ago Carbuncle of left axilla [facility] John Delarosa MD 8 months ago Influenza [facility] John Delarosa MD 8 months ago Acute maxillary sinusitis, recurrence not specified [facility] John Delarosa MD Upcoming Appointments CLEANER ASSISTANT - Recent and Past Visits Recent Visits Date Type Provider Dept 06/09/20 Office Visit John Méndez MD [facility] 05/02/20 Office Visit John Méndez MD [facility] 03/30/20 Office Visit John Méndez MD [facility] 12/14/19 Office Visit John Méndez MD [facility] 12/02/19 Office Visit John Méndez MD [facility] 11/02/19 Office Visit Aylin Juan APN, BUS ANALYST [facility] [place] 10/19/19 Office Visit Aylin Juan APN, BUS ANALYST [facility] 10/12/19 Office Visit Dakota Fabian APN, MIGUEL ANGEL [facility] 09/28/19 Office Visit John Méndez MD [facility] Showing recent visits within past 460 days with a meds authorizing provider and meeting all other requirements Future Appointments No visits were found meeting these conditions. Showing future appointments within next 90 days with a meds authorizing provider and meeting all other requirements Passed - Last BP in normal range BP Readings from Last 1 Encounters: 06/09/20 132/80 CH ENGINE OPTIMIZATION STRATEGIST documented in this encounter Plan of Treatment Upcoming Encounters Date Type Department Care Team (Late st Contact Info) Description 11/02/2024 8:15 AM SEARCH ENGINE OPTIMIZATION STRATEGIST Office Visit [facility] #2 [place] [address] Dakota Fabian APRN, BUS ANALYST #[address] [address] 11/26/2024 11:30 AM SEARCH ENGINE OPTIMIZATION STRATEGIST Office Visit [facility] [address] [place] [address] Maggie Tolentino, PAC [address] [place] [address] documented as of this encounter Visit Diagnoses Diagnosis Wheezing Bronchospasm, acute Acute bronchospasm documented in this encounter Additional Health Concerns Infection Onset Date Last Indicated Resolved Time MRSA 03/30/2020 03/30/2020 COVID - 19 09/11/2024 09/11/2024 09/11/2024 7:21 PM SEARCH ENGINE OPTIMIZATION STRATEGIST Assessment Noted Time PHQ-9 Depression Total Score: 0 10/19/19 20 12:31 PM SEARCH ENGINE OPTIMIZATION STRATEGIST documented as of this encounter Care Teams Run Boat Operator Relationship Specialty Start Date End Date John Méndez MD PCP - General Family Medicine 09/28/19 04/26/24 Daktoa Fabian, THOM, BUS ANALYST [address] [place] [address] PCP - General Advanced Practice Nurse 04/27/24 documented as of this encounter
--- OUTSIDE RECORDS SUMMARY | 2024-10-20 04:28 | XMS_ITS | Encounter Summary ---
Author Organization [facility] Address [address] [place] [address] Phone Care Team Providers Care Building Pressure Washer Name Role Phone John Méndez MD Primary Care Provider [phone] Reason for Referral * Consult, Test & Initiate Treatment (Routine) - Closed Specialty Diagnoses / Procedures Referred By Magui t Referred To Contact Diagnoses Encounter for screening for cervical cancer John Méndez MD Phone: tel: fax: Provider, Not On File [place] Referral ID Status Reason Start Date Expiration Date Visits Re quested Visits Authorized [id number] Closed 03/14/2021 1 1 Scheduling Instructions Melinda [...] Description 03/14/2021 4:00 PM CDT Office Visit [facility] #2 [place] [address] John Méndez MD [address] [place] [address] Acute non-recurrent maxillary sinusitis (Primary Dx); Encounter [...] 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 Smoking status: Never Smoker [...] st Contact Info) Description 11/02/2024 8:15 AM CITY BAILIFF Office Visit [facility] [address] [place] [address] Dakota Fabian APRN, BLACK TOP PAVER OPERATOR #[address] [address] 11/26/2024 11:30 AM CITY BAILIFF Office Visit [facility] [address] [place] [address] Maggie Tolentino, PAC [address] [place] [address] Scheduled Referrals Name Type Priority Associated Diagnoses [...] Total Score: 0 12/15/19 21 8:53 AM CITY BAILIFF documented as of this encounter Care Teams Building Pressure Washer Relationship Specialty Start Date End Date John Méndez MD PCP - General Family Medicine 09/28/19 04/26/24 documented as of this encounter
--- OUTSIDE RECORDS SUMMARY | 2024-10-20 04:28 | XMS_ITS | Encounter Summary ---
Author Organization [facility] Address [address] [facility] 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 on file [...] st Contact Info) Description 11/02/2024 8:15 AM MASTER WELDER Office Visit [facility] [address] [place] [address] Dakota Fabian APRN, INFORMATION SECURITY CONSULTANT #[address] [address] 11/26/2024 11:30 AM MASTER WELDER Office Visit [facility] [address] [place] [address] Maggie Tolentino, PAC [address] [place] [address] documented as of this encounter Visit Diagnoses Diagnosis Mild intermittent asthma without complication Unspecified asthma Wheezing documented in this encounter Additional Health Concerns Infection Onset Date Last Indicated Resolved Time MRSA 03/30/2020 03/30/2020 Assessment Noted Time PHQ-9 Depression Total Score: 0 12/15/19 8:53 AM MASTER WELDER documented as of this encounter Care Teams Toddler Guide Relationship Specialty Start Date End Date John Méndez MD PCP - General Family Medicine 09/28/19 04/26/24 documented as of this encounter
--- OUTSIDE RECORDS SUMMARY | 2024-10-20 04:28 | XMS_ITS | Encounter Summary ---
Author Organization 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 Medical Group - Family Medicine [facility] [address] [place] [address] Dakota Fabian, EMT I/85, PROFESSOR OF MEDICINE [address] [address] 11/26/2024 11:30 AM CONSULTING SOFTWARE ENGINEER Office Visit [facility] - [facility] - [place] [address] [place] [address] Maggie Tolentino, PAC [address] [place] [address] documented as of this encounter Visit Diagnoses Not on filedocumented in this encounter Additional Health Concerns Infection Onset Date Last Indicated Resolved Time MRSA 03/30/2020 03/30/2020 Assessment Noted Time PHQ-9 Depression Total Score: 0 10/19/19 20 12:31 PM CONSULTING SOFTWARE ENGINEER documented as of this encounter Care Teams Transportation Coordinator Relationship Specialty Start Date End Date John Méndez MD PCP - General Family Medicine 09/28/19 04/26/24 documented as of this encounter
--- OUTSIDE RECORDS SUMMARY | 2024-10-20 04:28 | XMS_ITS | Encounter Summary ---
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 No / Unsure 11/20/2020 6:37 AM WOOD CAR BUILDER documented as of this encounter Plan of Treatment Upcoming Encounters Date Type Department Care Team (Late st Contact Info) Description 11/02/2024 8:15 AM WOOD CAR BUILDER Office Visit [facility] Medical Group - Family Medicine [facility] #2 [place] [address] Dakota Fabian, LABORATORY CHIEF, DECK AND HULL ASSEMBLER #[address] [address] 11/26/2024 11:30 AM WOOD CAR BUILDER Office Visit [facility] - [place] [address] [place] [address] Maggie Tolentino, PAC [address] [place] [address] documented as of this encounter Visit Diagnoses Not on filedocumented in this encounter Additional Health Concerns Infection Onset Date Last Indicated Resolved Time MRSA 03/30/2020 03/30/2020 Assessment Noted Time PHQ-9 Depression Total Score: 0 10/19/19 20 12:31 PM WOOD CAR BUILDER documented as of this encounter Care Teams Mold Filler Plastic Dolls Relationship Specialty Start Date End Date John Méndez MD PCP - General Family Medicine 09/28/19 04/26/24 documented as of this encounter
--- OUTSIDE RECORDS SUMMARY | 2024-10-20 04:28 | XMS_ITS | Encounter Summary ---
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 [...] Contact Info) Description 11/02/2024 8:15 AM MANAGER PROPOSAL Office Visit [facility] Medical Group - Family Medicine [facility] #2 [place] [address] Dakota Fabian, TEST ENGINEERING INTERN, CAR MECHANIC #[address] [address] 11/26/2024 11:30 AM MANAGER PROPOSAL Office Visit [facility] - [facility] - [place] #2 [place] [address] Maggie Tolentino, PAC [address] [place] [address] documented as of this encounter Visit Diagnoses Not on filedocumented in this encounter Additional Health Concerns Infection Onset Date Last Indicated Resolved Time MRSA 03/30/2020 03/30/2020 Assessment Noted Time PHQ-9 Depression Total Score: 0 10/19/19 20 12:31 PM MANAGER PROPOSAL documented as of this encounter Care Teams Construction Field Engineer Relationship Specialty Start Date End Date John Méndez MD PCP - General Family Medicine 09/28/19 04/26/24 documented as of this encounter
--- OUTSIDE RECORDS SUMMARY | 2024-10-20 04:28 | XMS_ITS | Encounter Summary ---
Author Organization [facility] Address [address] [facility] 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 [...] st Contact Info) Description 11/02/2024 8:15 AM KNITTER HAND Office Visit [facility] #2 [place] [address] Dakota Fabian, THOM, OPERATIONAL RISK ANALYST #[address] [address] 11/26/2024 11:30 AM KNITTER HAND Office Visit [facility] [address] [place] [address] Maggie Tolentino, PAC [address] [place] [address] documented as of this encounter Visit Diagnoses Diagnosis Moderate episode of recurrent major depressive disorder (HCC)- Primary Anxiety Anxiety state, unspecified Sacroiliac joint dysfunction of both sides Disorders of sacrum documented in this encounter Additional Health Concerns Infection Onset Date Last Indicated Resolved Time MRSA 03/30/2020 03/30/2020 Assessment Noted Time PHQ-9 Depression Total Score: 0 12/15/19 8:53 AM KNITTER HAND documented as of this encounter Care Teams Cartographic Designer Relationship Specialty Start Date End Date John Méndez MD PCP - General Family Medicine 09/28/19 04/26/24 documented as of this encounter
--- OUTSIDE RECORDS SUMMARY | 2024-10-20 04:28 | XMS_ITS | Encounter Summary ---
Author Organization [facility] Address [address] [facility] 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 Not on file documented as of this encounter Miscellaneous Notes * Telephone Encounter - Antoinette Arora RN - 10/12/2020 9:30 AM CST Medication(s) refilled and signed per [facility] Chronic Medication Refill Standing Order for Pediatricand [...] complication [facility] John Delarosa MD 5 months ago Acute non-recurrent maxillary sinusitis [facility] John Delarosa MD 6 months ago Carbuncle of left axilla [facility] John Delarosa MD 10 months ago Influenza [facility] John Delarosa MD 10 months ago Acute maxillary sinusitis, recurrence not specified [facility] Dave [place] MD Upcoming Appointments BOOKSTORE CLERK - Recent and Past Visits Recent Visits [...] [place] 09/28/19 Office Visit John M[facility]dez MD [facility] [place] Showing recent visits within past 460 days with a meds authorizing provider and meeting all other requirements Future Appointments No visits were found meeting these conditions. Showing future appointments within next 90 days with a meds authorizing provider and meeting all other requirements Passed - Last BP in normal range BP Readings from Last 1 Encounters: 06/09/20 132/80 RUNNER documented in this encounter Plan of Treatment Upcoming Encounters Date Type Department Care Team (Late st Contact Info) Description 11/02/2024 8:15 AM PIER RUNNER Office Visit [facility] [address] [place] [address] Dakota Fabian, THOM, MAILROOM ASSISTANT #[address] [address] 11/26/2024 11:30 AM PIER RUNNER Office Visit [facility] [address] [place] [address] Maggie Tolentino, PAC [address] [place] [address] documented as of this encounter Visit Diagnoses Diagnosis Essential hypertension Unspecified essential hypertension documented in this encounter Additional Health Concerns Infection Onset Date Last Indicated Resolved Time MRSA 03/30/2020 03/30/2020 Assessment Noted Time PHQ-9 Depression Total Score: 0 10/19/19 20 12:31 PM PIER RUNNER documented as of this encounter Care Teams Sale Professional Digital Marketing Relationship Specialty Start Date End Date John Méndez MD PCP - General Family Medicine 09/28/19 04/26/24 documented as of this encounter
--- OUTSIDE RECORDS SUMMARY | 2024-10-20 04:28 | XMS_ITS | Encounter Summary ---
Author Organization [facility] Address [address] [facility] 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 No / Unsure 11/20/2020 6:[address] COMMISSIONER documented as of this encounter Miscellaneous Notes [...] Outpatient Visits 6 days ago Mixed hyperlipidemia [facility] John Delarosa MD 5 months ago Mild intermittent asthma without complication [facility] Luna MD 6 months ago Acute non-recurrent maxillary sinusitis [facility] John Delarosa MD 7 months ago Carbuncle of left axilla [facility] John Delarosa MD 11 months ago Influenza [facility] John Delarosa MD Upcoming Appointments Future Appointments In 3 weeks John [facility] CARDIAC MONITOR TECHNICIAN - Recent and Past Visits Recent Visits [...] Visit Aylin Juan APN, MIGUEL ANGEL [facility] 10/19/19 Office Visit Aylin Juan APN, SERVICES MGR [facility] 10/12/19 Office Visit Dakota Fabian APN, MIGUEL ANGEL [facility] [place] 09/28/19 Office Visit John Méndez MD [facility] Showing recent visits within past 460 days with a meds authorizing provider and meeting all other requirements Future Appointments Date Type Provider Dept 12/13/20 Appointment John Méndez MD [facility] Showing future appointments within next 90 days with a meds authorizing provider and meeting all other requirements ET COMMISSIONER documented in this encounter Plan of Treatment Upcoming Encounters Date Type Department Care Team (Late st Contact Info) Description 11/02/2024 8:[address] COMMISSIONER Office Visit [facility] [address] [place] [address] Dakota Fabian LAWN MAINTENANCE WORKER, SERVICES MGR #[address] [address] 11/26/2024 11:[address] COMMISSIONER Office Visit [facility] [address] [place] [address] Maggie Tolentino, PAC [address] [place] [address] documented as of this encounter Visit Diagnoses Not on filedocumented in this encounter Additional Health Concerns Infection Onset Date Last Indicated Resolved Time MRSA 03/30/2020 03/30/2020 COVID - 19 09/11/2024 09/11/2024 09/11/2024 7:[address] COMMISSIONER Assessment Noted Time PHQ-9 Depression Total Score: 0 10/19/19 20 12:[address] COMMISSIONER documented as of this encounter Care Teams Manager Manufacturing Relationship Specialty Start Date End Date John Méndez MD PCP - General Family Medicine 09/28/19 04/26/24 Dakota Fabian APRN, SERVICES MGR #[address] [address] PCP - General Advanced Practice Nurse 04/27/24 documented as of this encounter
--- OUTSIDE RECORDS SUMMARY | 2024-10-20 04:28 | XMS_ITS | Encounter Summary ---
Author Organization [facility] Address [address] [facility] 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 STRATEGIC SOURCING MANAGER #[address] [address] 11/26/2024 11:30 AM PER DIEM INTERPRETER Office Visit [facility] [address] [place] [address] Maggie Tolentino, PAC [address] [place] [address] documented as of this encounter Visit Diagnoses Not on filedocumented in this encounter Additional Health Concerns Infection Onset Date Last Indicated Resolved Time MRSA 03/30/2020 03/30/2020 Assessment Noted Time PHQ-9 Depression Total Score: 0 10/19/19 20 12:31 PM PER DIEM INTERPRETER documented as of this encounter Care Teams Bench Jeweler Relationship Specialty Start Date End Date John Méndez MD PCP - General Family Medicine 09/28/19 04/26/24 documented as of this encounter
--- OUTSIDE RECORDS SUMMARY | 2024-10-20 04:28 | XMS_ITS | Encounter Summary ---
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 [...] st Contact Info) Description 11/02/2024 8:15 AM TIN ASSORTER Office Visit [facility] Medical Group - Family Medicine [facility] [address] [place] [address] Dakota Fabian, SOLUTION DIRECTOR, DIFFERENTIAL SPECIALIST #[address] [address] 11/26/2024 11:30 AM TIN ASSORTER Office Visit [facility] [place] [address] [place] [address] Maggie Tolentino, PAC [address] [place] [address] documented as of this encounter Visit Diagnoses Not on filedocumented in this encounter Additional Health Concerns Infection Onset Date Last Indicated Resolved Time MRSA 03/30/2020 03/30/2020 Assessment Noted Time PHQ-9 Depression Total Score: 0 12/15/19 21 8:53 AM TIN ASSORTER documented as of this encounter Care Teams Shift Supervisor Rn Relationship Specialty Start Date End Date John Méndez MD PCP - General Family Medicine 09/28/19 04/26/24 documented as of this encounter
--- OUTSIDE RECORDS SUMMARY | 2024-10-20 04:28 | XMS_ITS | Encounter Summary ---
Author Organization [facility] Address [address] 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 Not [...] Contact Info) Description 11/02/2024 8:15 AM CLINICAL SUPPORT MANAGER Office Visit [facility] [address] [place] [address] Dakota Fabian, THOM, RETAIL ADVISOR #[address] [address] 11/26/2024 11:30 AM CLINICAL SUPPORT MANAGER Office Visit [facility] [address] [place] [address] Maggie Tolentino, PAC [address] [place] [address] documented as of this encounter Visit Diagnoses Not on filedocumented in this encounter Additional Health Concerns Infection Onset Date Last Indicated Resolved Time MRSA 03/30/2020 03/30/2020 Assessment Noted Time PHQ-9 Depression Total Score: 0 12/15/19 21 8:53 AM CLINICAL SUPPORT MANAGER documented as of this encounter Care Teams Heat Engineering Teacher Relationship Specialty Start Date End Date John Méndez MD PCP - General Family Medicine 09/28/19 04/26/24 documented as of this encounter
--- OUTSIDE RECORDS SUMMARY | 2024-10-20 04:28 | XMS_ITS | Encounter Summary ---
Author Organization [facility] Address [address] [facility] 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 [...] Contact Info) Description 11/02/2024 8:15 AM FURNITURE SALES CONSULTANT Office Visit [facility] [address] [place] [address] Dakota Fabian APRN, SURVEY FIELD TECHNICIAN #[address] [address] 11/26/2024 11:30 AM FURNITURE SALES CONSULTANT Office Visit [facility] [address] [place] [address] Maggie Tolentino, PAC [address] [place] [address] documented as of this encounter Visit Diagnoses Not on filedocumented in this encounter Additional Health Concerns Infection Onset Date Last Indicated Resolved Time MRSA 03/30/2020 03/30/2020 Assessment Noted Time PHQ-9 Depression Total Score: 0 12/15/19 21 8:53 AM FURNITURE SALES CONSULTANT documented as of this encounter Care Teams Lumber Straightener Relationship Specialty Start Date End Date John Méndez MD PCP - General Family Medicine 09/28/19 04/26/24 documented as of this encounter
--- OUTSIDE RECORDS SUMMARY | 2024-10-20 04:28 | XMS_ITS | Encounter Summary ---
Author Organization [facility] Address [address] [facility] [place] [address] Phone Care Team Providers Care Animal Husbandman Name Role Phone John Méndez MD Primary Care Provider [phone] Reason for Referral * Consult, Test & Initiate Treatment (Routine) - Closed Specialty Diagnoses / Procedures Referred By Contac t Referred To Contact Diagnoses Chronic sinusitis, unspecified location Dakota Fabian, THOM, ADMINISTRATOR PESTICIDE [address] [address] Phone: tel: fax: Baudilio Catalan MD [address] [facility] [address] [place] [address] Phone: tel: fax: Referral ID Status Reason Start Date Expiration Date Visits Re quested Visits Authorized [id number] Closed 07/07/2020 1 1 Scheduling Instructions Melinda [...] 07/04/2020 Nurse Triage [facility] #[address] [place] [address] John Méndez MD [address] [place] [address] Pressure Behind the Eyes Social History Tobacco [...] 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 Please advise who you recommend. Thank you. She was seeing dr bruno but he [facility]. * Telephone Encounter - John Méndez MD - 07/04/2020 3:09 PM CDT Sent Ask her if she is willing to go and see an ent doctor. * Telephone Encounter - Antoinette Weeks RN - 07/04/2020 11:30 AM CDT Patient calling. SITUATION (caller perception/concerns): Sinus congestion and cough BACKGROUND (events leading up to call): Lives [place] the [address] from [place] and they are harvesting now. ASSESSMENT: Onset: [...] 10 days Protocols used: SINUS PAIN AND [id number] documented in this encounter Plan of Treatment Upcoming Encounters Date Type Department Care Team (Late st Contact Info) Description 11/02/2024 8:15 AM PAINTING DEPARTMENT SUPERVISOR Office Visit [facility] [address] [place] [address] Dakota Fabian APRN, ADMINISTRATOR PESTICIDE #[address] [address] 11/26/2024 11:30 AM PAINTING DEPARTMENT SUPERVISOR Office Visit [facility] [address] [place] [address] Maggie Tolentino, PAC [address] [place] [address] Scheduled Referrals Name Type Priority Associated Diagnoses [...] Total Score: 0 10/19/19 20 12:31 PM PAINTING DEPARTMENT SUPERVISOR documented as of this encounter Care Teams Animal Husbandman Relationship Specialty Start Date End Date John Méndez MD PCP - General Family Medicine 09/28/19 04/26/24 documented as of this encounter
--- OUTSIDE RECORDS SUMMARY | 2024-10-20 04:28 | XMS_ITS | Encounter Summary ---
Author Organization [facility] Address [address] 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 * Flank Pain, Uncertain Cause (French) documented in this encounter Medications at Time [...] file Occupational History ??? 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 Smoking status: Never [...] Keegan Valdes M.D. NC: [place] Report ID: [id number] Reading Location: [address] Labs Reviewed CMP (COMPREHENSIVE METABOLIC PANEL) - Abnormal; Notable for the following components: Result Value CREATININE, BLOOD 0.56 (*) All other components within normal limits URINALYSIS REFLEX IF INDICATED BY ABNORMAL RESULTS COMPLETE BLOOD COUNT (CBC) WITH DIFF Narrative: The following orders were created for panel order CBC with Diff [id number]. Procedure Abnormality Status --------- ------ CBC with Auto Differential[[id number]] Final result Please view results for these tests on the individual orders. EXTRA TUBES Narrative: The following orders were created for panel order Extra Tubes. Procedure Abnormality Status --------- ------ Gold Top Tube[[id number]] Please view results for these tests on the individual orders. CBC WITH AUTO DIFFERENTIAL GOLD TOP TUBE URINALYSIS REFLEX IF INDICATED BY ABNORMAL RESULTS Final Result CT RENAL STONE STUDY (ABDOMEN AND PELVIS W/O CONTRAST) Final Result IMPRESSION: No acute finding. CBC with Diff [id number] Final Result CMP (Comprehensive Metabolic Panel) Final [...] to follow-up with: John Méndez MD [address] [address] In 2 days Dispostion: Discharge * Barbara [...] st Contact Info) Description 11/02/2024 8:15 AM BUNDLE HELPER Office Visit [facility] [address]2 [place] [address] Dakota Fabian, WELFARE SUPERVISOR, SLOT FLOOR ATTENDANT [address] [address] 11/26/2024 11:30 AM BUNDLE HELPER Office Visit [facility] #2 [place] [address] Maggie Tolentinoe, PAC [address] [place] [address] documented as of this encounter Procedures Procedure [...] ABNORMAL RESULTS (03/12/2021 10:13 AM CDT) Pathologist [facility] SPECIFIC GRAVITY 1.010 1.003 - 1.030 03/12/2021 10:44 AM CDT [facility] URINE PH 8.0 5.0 - 9.0 03/12/2021 10:44 AM CDT [facility] WBC ESTERASE Negative Negative 03/12/2021 10:44 AM CDT [facility] NITRITE Negative Negative 03/12/2021 10:44 AM CDT [facility] PROTEIN, RANDOM URINE Negative Negative 03/12/2021 10:44 AM CDT [facility] URINE GLUCOSE, QUAL Negative Negative 03/12/2021 10:44 AM CDT [facility] URINE KETONES Negative Negative 03/12/2021 10:44 AM CDT [facility] UROBILINOGEN Normal Normal mg/dL 03/12/2021 10:44 AM CDT [facility] URINE BILIRUBIN Negative Negative 10:44 AM CDT [facility] URINE BLOOD Negative Negative marjorie/ul 03/12/2021 10:44 AM CDT [facility] URINALYSIS COLOR Yellow 03/12/20 10:44 AM CDT [facility] URINALYSIS CLARITY Clear 03/12/2021 10:44 AM CDT [facility] Urine URINE SPECIMEN COLLECTION, CLEAN CATCH / Unknown Non-Phlebotomy Collection / Unknown 03/12/2021 10:13 AM CDT 03/12/2021 10:36 AM CDT Kenn Ibarra MD URINE ORDERABLES Final Result [facility] [address] [place] [address] * CT RENAL STONE STUDY (ABDOMEN AND [...] AM T: ??03/12/2021 10:50 AM Report ID: [id number] Reading Location: ??[id number] Procedure Note Keegan Valdes MD - 03/12/2021 [...] Keegan Valdes M.D. [place]: [place] Report ID: [id number] Reading Location: [place] [address] IMPRESSION: No acute finding. us Kenn Ibarra MD IMG CT ORDERABLES Final Result * Gold Top Tube (03/12/2021 9:11 AM CDT) Blood No Phlebotomy Charged / Unknown 03/12/2021 9:11 AM CDT 03/13/2021 9:11 AM CDT us Kenn Ibarra MD CHEMISTRY ORDERABLES Final Resu lt [facility] [address] [place] [address] * CBC with Auto Differential (03/12/2021 9:11 AM CDT) WBC 6.46 4.00 - 12.00 10(3)/mcL 03/12/2021 9:30 AM CDT [facility] RBC 4.59 3.80 - 5.30 10(6)/mcL 03/12/2021 9:30 AM CDT [facility] HEMOGLOBIN (HGB) 12.9 12.0 - 15.8 g/dL 03/12/2021 9:30 AM CDT [facility] HEMATOCRIT (HCT) 41.0 36.0 - 47.0 % 03/12/2021 9:30 AM CDT [facility] MCV 89.3 82.0 - 96.0 fL 03/12/2021 9:30 AM CDT [facility] MCH 28.1 26.0 - 34.0 pg 03/12/2021 9:30 AM CDT [facility] MCHC 31.5 31.0 - 36.0 g/dL 03/12/2021 9:30 AM CDT [facility] PLATELET COUNT 355 140 - 440 10(3)/mcL 03/12/2021 9:30 AM CDT [facility] RDW 13.4 11.8 - 15.5 % 03/12/2021 9:30 AM CDT [facility] MPV 10.4 9.7 - 12.4 fL 03/12/2021 9:30 AM CDT [facility] NEUTROPHILS 63.9 47.0 - 73.0 % 03/12/2021 9:30 AM CDT [facility] LYMPHOCYTES 23.4 18.0 - 42.0 % 03/12/2021 9:30 AM CDT [facility] MONOCYTES 7.9 4.0 - 12.0 % 03/12/2021 9:30 AM CDT [facility] EOSINOPHILS 4.0 0.0 - 5.0 % 03/12/2021 9:30 AM CDT [facility] BASOPHILS 0.8 0.0 - 1.0 % 03/12/2021 9:30 AM CDT [facility] ABSOLUTE NEUTROPHILS 4.13 1.60 - 7.70 10(3)/mcL 03/12/2021 9:30 AM CDT [facility] ABSOLUTE LYMPHOCYTES 1.51 1.30 - 3.20 10(3)/mcL 03/12/2021 9:30 AM CDT [facility] ABSOLUTE MONOCYTES 0.51 0.20 - 1.00 10(3)/mcL 03/12/2021 9:30 AM CDT [facility] ABSOLUTE EOSINOPHIL 0.26 0.00 - 0.40 10(3)/mcL 03/12/2021 9:30 AM CDT [facility] ABSOLUTE BASOPHILS 0.05 0.00 - 0.10 10(3)/mcL 03/12/2021 9:30 AM CDT [facility] NRBC PER 100 WBC 0 03/12/20 9:30 AM CDT [facility] Blood Venipuncture / Unknown 03/12/2021 9:11 AM CDT 03/12/2021 9:25 AM CDT us Kenn Ibarra MD HEMATOLOGY ORDERABLES Final Res ult [facility] [address] [place] [address] * (ABNORMAL) CMP (Comprehensive Metabolic Panel) (03/12/2021 9:11 AM CDT) SODIUM 140 136 - 144 mmol/L 03/12/2021 9:50 AM CDT [facility] POTASSIUM 3.9 3.5 - 5.1 mmol/L 03/12/2021 9:50 AM CDT [facility] CHLORIDE 102 100 - 110 mmol/L 03/12/2021 9:50 AM CDT [facility] CO2, VENOUS 30 22 - 32 mmol/L 03/12/2021 9:50 AM CDT [facility] ANION GAP 11.9 8.0 - 20.0 mmol/L 03/12/2021 9:50 AM CDT [facility] GLUCOSE 82 70 - 99 mg/dL 03/12/2021 9:50 AM CDT [facility] BUN 8 6 - 20 mg/dL 03/12/2021 9:50 AM CDT [facility] CREATININE, BLOOD 0.56(L) 0.60 - 1.10 mg/dL 03/12/2021 9:50 AM CDT [facility] BUN/CREATININE RATIO 14 12 - 20 ratio 03/12/2021 9:50 AM CDT [facility] TOTAL PROTEIN 6.7 6.0 - 8.3 g/dL 03/12/2021 9:50 AM CDT [facility] ALBUMIN 3.9 3.5 - 5.2 g/dL 03/12/2021 9:50 AM CDT [facility] Comment: The colormetric methods used for the determination of Albumin may lead to falsely elevated test results in patients suffering from renal failure or insufficiency due to interference with other proteins. A/G RATIO 1.4 1.0 - 2.0 03/12/2021 9:50 AM CDT [facility] CALCIUM 9.1 8.9 - 10.3 mg/dL 03/12/2021 9:50 AM CDT [facility] T BILI 0.3 <=1.2 mg/dL 03/12/2021 9:50 AM CDT [facility] SGOT (AST) 14 <=32 U/L 03/12/2021 9:50 AM CDT [facility] SGPT (ALT) 14 <=41 U/L 03/12/2021 9:50 AM CDT [facility] ALKALINE PHOSPHATASE 77 35 - 105 U/L 03/12/2021 9:50 AM CDT [facility] GFR, EST. NONAFRICAN >60 >=60 03/12/2021 9:50 AM CDT [facility] GFR, EST. >60 >=60 021 9:50 AM CDT [facility] Comment: Creatinine Clearance is the preferred criteria for selecting drug dose adjustments in renally impaired patients. ??The GFR is provided as additional pertinent clinical information. GFR is reported in mL/min/1.73 sq m. Blood Venipuncture / Unknown 03/12/2021 9:11 AM CDT 03/12/2021 9:24 AM CDT us Kenn Ibarra MD CHEMISTRY ORDERABLES Final Resu lt [facility] #[address] [place] [address] documented in this encounter Visit Diagnoses Diagnosis [...] Depression Total Score: 0 12/15/19 8:53 AM BUNDLE HELPER documented as of this encounter Care Teams Carton Lettering Machine Operator Relationship Specialty Start Date End Date John Méndez MD PCP - General Family Medicine 09/28/19 04/26/24 documented as of this encounter
--- OUTSIDE RECORDS SUMMARY | 2024-10-20 04:28 | XMS_ITS | Encounter Summary ---
Author Organization [facility] Address [address] 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 on file documented as of this encounter Plan of Treatment Upcoming Encounters Date Type Department Care Team (Late st Contact Info) Description 11/02/2024 8:15 AM HOME CARE SCHEDULER Office Visit [facility] [address] [place] [address] Dakota Fabian APRN, INSULATION WORKER FURNACE INSTALLER [address] [address] 11/26/2024 11:30 AM HOME CARE SCHEDULER Office Visit [facility] [address] [place] [address] Maggie Tolentino PAC [address] [place] [address] documented as of this encounter Visit Diagnoses Not on filedocumented in this encounter Additional Health Concerns Infection Onset Date Last Indicated Resolved Time MRSA 03/30/2020 03/30/2020 COVID - 19 09/11/2024 09/11/2024 09/11/2024 7:21 PM HOME CARE SCHEDULER Assessment Noted Time PHQ-9 Depression Total Score: 0 10/19/19 20 12:31 PM HOME CARE SCHEDULER documented as of this encounter Care Teams Associate Director Financial Aid Relationship Specialty Start Date End Date John Méndez MD PCP - General Family Medicine 09/28/19 04/26/24 Dakota Fabian APRN, INSULATION WORKER FURNACE INSTALLER [address] [address] PCP - General Advanced Practice Nurse 04/27/24 documented as of this encounter
--- OUTSIDE RECORDS SUMMARY | 2024-10-20 04:28 | XMS_ITS | Encounter Summary ---
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 Not [...] st Contact Info) Description 11/02/2024 8:15 AM ACCOUNT CLASSIFICATION CLERK Office Visit [facility] Medical [facility] - Family Medicine [facility] #[address] [place] [address] Dakota Fabian, MAINTENANCE PAINTER, SEWAGE DISPOSAL WORKER #[address] [address] 11/26/2024 11:30 AM ACCOUNT CLASSIFICATION CLERK Office Visit [facility] [place] [address] [place] [address] Maggie Tolentino, PAC [address] [place] [address] documented as of this encounter Visit Diagnoses Not on filedocumented in this encounter Additional Health Concerns Infection Onset Date Last Indicated Resolved Time MRSA 03/30/2020 03/30/2020 Assessment Noted Time PHQ-9 Depression Total Score: 0 10/19/19 20 12:31 PM ACCOUNT CLASSIFICATION CLERK documented as of this encounter Care Teams Information Security Architect Relationship Specialty Start Date End Date John Méndez MD PCP - General Family Medicine 09/28/19 04/26/24 documented as of this encounter
--- OUTSIDE RECORDS SUMMARY | 2024-10-20 04:28 | XMS_ITS | Encounter Summary ---
Author Organization [facility] Address [address] [facility] [facility] 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 Not [...] episode of recurrent major depressive disorder (HCC) [facility] John Delarosa MD 2 months ago Moderate episode of recurrent major depressive disorder (HCC) [facility] John Delarosa MD 3 months ago Mixed hyperlipidemia [facility] John Delarosa MD 8 months ago Mild intermittent asthma without complication [facility] John Delarosa MD 9 months ago Acute non-recurrent maxillary sinusitis [facility] John Delarosa MD Upcoming Appointments Future Appointments In 1 month John M[facility]dez MD [facility] JOINT FILLER - Recent and Past Visits Recent Visits [...] st Contact Info) Description 11/02/2024 8:15 AM STORE CONSULTANT Office Visit [facility] #2 [place] [address] Dakota Fabian APRN, DRAWER UPFITTER #[address] [address] 11/26/2024 11:30 AM STORE CONSULTANT Office Visit [facility] [address]2 [place] [address] Maggie Tolentino, PAC [address] [place] [address] documented as of this encounter Visit Diagnoses Not on filedocumented in this encounter Additional Health Concerns Infection Onset Date Last Indicated Resolved Time MRSA 03/30/2020 03/30/2020 COVID - 19 09/11/2024 09/11/2024 09/11/2024 7:21 PM STORE CONSULTANT Assessment Noted Time PHQ-9 Depression Total Score: 0 12/15/19 8:53 AM STORE CONSULTANT documented as of this encounter Care Teams Consumer Lender Relationship Specialty Start Date End Date John Méndez MD PCP - General Family Medicine 09/28/19 04/26/24 Dakota Fabian, MEDICAL CLAIMS REPRESENTATIVE, DRAWER UPFITTER [address] [address] PCP - General Advanced Practice Nurse 04/27/24 documented as of this encounter
--- OUTSIDE RECORDS SUMMARY | 2024-10-20 04:28 | XMS_ITS | Encounter Summary ---
Author Organization [facility] Address [address] 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 No / Unsure 11/15/2020 9:30 AM GENERAL LABOR FORKLIFT OPERATOR documented as of this encounter Progress Notes * Radha Winston - 11/16/2020 9:20 AM CST Melinda presents for lab draw per order of dr méndez dated [id number]. Specimen collected from left antecubital without incident. [facility] RAL LABOR FORKLIFT OPERATOR documented in this encounter Plan of Treatment Upcoming Encounters Date Type Department Care Team (Late st Contact Info) Description 11/02/2024 8:15 AM GENERAL LABOR FORKLIFT OPERATOR Office Visit [facility] [address] [place] [address] Dakota Fabian APRN, ORTHOPEDIC SHOE MAKER [address] [address] 11/26/2024 11:30 AM GENERAL LABOR FORKLIFT OPERATOR Office Visit [facility] [address] [place] [address] Maggie Tolentino, PAC [address] [place] [address] documented as of this encounter Procedures Procedure Name Priority Date/Time Associated Diagnosis Comments VITAMIN D, 25 HYDROXY TOTAL Routine 11/16/2020 9:28 AM GENERAL LABOR FORKLIFT OPERATOR Moderate episode of recurrent major depressive disorder (HCC) URINALYSIS REFLEX IF INDICATED BY ABNORMAL RESULTS Routine 11/16/2020 9:28 AM GENERAL LABOR FORKLIFT OPERATOR Essential hypertension CBC WITH AUTO DIFFERENTIAL Routine 11/16/2020 9:28 AM GENERAL LABOR FORKLIFT OPERATOR Essential hypertension VITAMIN B12 Routine 11/16/2020 9:28 AM GENERAL LABOR FORKLIFT OPERATOR Moderate episode of recurrent major depressive disorder (HCC) THYROXINE (T4) FREE Routine 11/16/2020 9 :28 AM GENERAL LABOR FORKLIFT OPERATOR Essential hypertension THYROID STIMULATING HORMONE (TSH) Routine 11/16/2020 9:28 AM GENERAL LABOR FORKLIFT OPERATOR Essential hypertension LIPID PANEL Routine 11/16/2020 9:28 AM GENERAL LABOR FORKLIFT OPERATOR Mixed hyperlipidemia CULTURE, URINE Routine 11/16/2020 9:28 AM GENERAL LABOR FORKLIFT OPERATOR Essential hypertension CMP (COMPREHENSIVE METABOLIC PANEL) Routine 11/16/2020 9:28 AM GENERAL LABOR FORKLIFT OPERATOR Essential hypertension COMPLETE BLOOD COUNT (CBC) WITH DIFF Routine 11/16/2020 9:28 AM GENERAL LABOR FORKLIFT OPERATOR Essential hypertension documented in this encounter Results * CULTURE, URINE (11/16/2020 9:28 AM GENERAL LABOR FORKLIFT OPERATOR) Pathologist [facility] [place] CULTURE RESULTS MIXED GROWTH OF ONE OR MORE DISTAL URETHRAL CONTAMINANTS 11/18/2020 10:18 AM GENERAL LABOR FORKLIFT OPERATOR [facility] Urine URINE SPECIMEN / Unknown Non-Phlebotomy Collection / Unknown 11/16/2020 9:28 AM GENERAL LABOR FORKLIFT OPERATOR 11/16/2020 9:28 AM GENERAL LABOR FORKLIFT OPERATOR us John Méndez MD MICROBIOLOGY - GENERAL ORDERABLE S Final Result Performing Organization Address City/State/[facility] Co de Phone Number [facility] [address] [place] [address], * (ABNORMAL) CBC WITH AUTO DIFFERENTIAL (11/16/2020 9:28 AM GENERAL LABOR FORKLIFT OPERATOR) Pathologist [facility] [place] WBC 5.85 4.00 - 12.00 10(3)/mcL 11/16/2020 12:35 PM GENERAL LABOR FORKLIFT OPERATOR [facility] RBC 4.90 3.80 - 5.30 10(6)/mcL 11/16/2020 12:35 PM GENERAL LABOR FORKLIFT OPERATOR [facility] HEMOGLOBIN (HGB) 12.7 12.0 - 15.8 g/dL 11/16/2020 12:35 PM GENERAL LABOR FORKLIFT OPERATOR [facility] HEMATOCRIT (HCT) 41.5 36.0 - 47.0 % 11/16/2020 12:35 PM GENERAL LABOR FORKLIFT OPERATOR [facility] MCV 84.7 82.0 - 96.0 fL 11/16/2020 12:35 PM [facility] MCH 25.9(L) 26.0 - 34.0 pg 11/16/2020 12:35 PM [facility] MCHC 30.6(L) 31.0 - 36.0 g/dL 11/16/2020 12:35 PM [facility] PLATELET COUNT 380 140 - 440 10(3)/[facility] 11/16/2020 12:35 PM [facility] RDW 13.9 11.8 - 15.5 % 11/16/2020 12:35 PM [facility] MPV 10.4 9.7 - 12.4 fL 11/16/2020 12:35 PM [facility] NEUTROPHILS 62.6 47.0 - 73.0 % 11/16/2020 12:35 PM [facility] LYMPHOCYTES 24.3 18.0 - 42.0 % 11/16/2020 12:35 PM [facility] MONOCYTES 5.8 4.0 - 12.0 % 11/16/2020 12:35 PM [facility] EOSINOPHILS 6.3(H) 0.0 - 5.0 % 11/16/2020 12:35 PM [facility] BASOPHILS 1.0 0.0 - 1.0 % 11/16/2020 12:35 PM [facility] ABSOLUTE NEUTROPHILS 3.66 1.60 - 7.70 10(3)/mcL 11/16/2020 12:35 PM [facility] ABSOLUTE LYMPHOCYTES 1.42 1.30 - 3.20 10(3)/mcL 11/16/2020 12:35 PM [facility] ABSOLUTE MONOCYTES 0.34 0.20 - 1.00 10(3)/[facility] 11/16/2020 12:35 PM [facility] ABSOLUTE EOSINOPHIL 0.37 0.00 - 0.40 10(3)/[facility] 11/16/2020 12:35 PM [facility] ABSOLUTE BASOPHILS 0.06 0.00 - 0.10 10(3)/mcL 11/16/2020 12:35 PM GENERAL LABOR FORKLIFT OPERATOR [facility] NRBC PER 100 WBC 0 11/16/19 12:35 PM GENERAL LABOR FORKLIFT OPERATOR [facility] Blood Venipuncture / Unknown 11/16/2020 9:28 AM GENERAL LABOR FORKLIFT OPERATOR 11/16/2020 9:28 AM GENERAL LABOR FORKLIFT OPERATOR us John Méndez MD HEMATOLOGY ORDERABLES Final Resu lt Performing Organization Address City/[facility]/ZIP Co de Phone Number [facility] [address] [place] [address] * VITAMIN B12 (11/16/2020 9:28 AM GENERAL LABOR FORKLIFT OPERATOR) VITAMIN B12 426 243 - 894 pg/mL 11/16/2020 2:01 PM GENERAL LABOR FORKLIFT OPERATOR [facility] Blood Venipuncture / Unknown 11/16/2020 9:28 AM GENERAL LABOR FORKLIFT OPERATOR 11/16/2020 9:28 AM GENERAL LABOR FORKLIFT OPERATOR us John Méndez MD CHEMISTRY ORDERABLES Final Resul t Performing Organization Address [facility] Co de Phone Number [facility] [address] [place] [address] * (ABNORMAL) VITAMIN D, 25 HYDROXY TOTAL (11/16/2020 9:28 AM GENERAL LABOR FORKLIFT OPERATOR) VITAMIN D, 25 HYDROX 20(L) >=30 ng/mL 11/16/2020 2:01 PM GENERAL LABOR FORKLIFT OPERATOR [facility] Blood Venipuncture / Unknown 11/16/2020 9:28 AM GENERAL LABOR FORKLIFT OPERATOR 11/16/2020 9:28 AM GENERAL LABOR FORKLIFT OPERATOR Narrative [facility] - 11/16/2020 2:01 PM GENERAL LABOR FORKLIFT OPERATOR Published reference ranges for Vitamin D vary depending on time and place and method of testing, and on patient's age, sex, ethnicity and levels of other measured analytes such as parathormone, calcium and phosphorus. ??The result should be evaluated in conjunction with clinical findings and suspicions. [employer] of [employer] and Endocrine Clinical Practice Guidelines: Status Vitamin D levels (ng/mL) Deficient <=20 At risk of inadequacy 21-29 Sufficient 30-100 Centers of Disease Control and Prevention Guidelines: Status Vitamin D levels (ng/mL) Deficient <13 At risk of inadequacy 13-19 Sufficient 20-50 Possibly harmful >50 References: [employer], 2010 Dietary reference intakes for calcium and vitamin D. [place]: ??The National Academies Press. Vijay M, Fabiana N, Jerrod ISBELL, et al., Evaluation, treatment, and prevention of Vitamin D deficiency: an Endocrinology Clinical Practice Guideline. JCEM 2011 96: 7 1095-6467. Kathy A, Amari C, Maicol Conroy, et al., Vitamin D Status: ??[facility], 1005, [facility] data brief, no. 59, MD [place]: ??National Center for Health Statistics. 2010. John Méndez MD CHEMISTRY ORDERABLES Final Resul t Performing Organization Address City/[facility]/ZIP Co de Phone Number [facility] [address] [place] [address] * THYROXINE (T4) FREE (11/16/2020 9:28 AM GENERAL LABOR FORKLIFT OPERATOR) T4 FREE 1.3 0.9 - 1.7 ng/dL 11/16/2020 1:51 PM GENERAL LABOR FORKLIFT OPERATOR [facility] Blood Venipuncture / Unknown 11/16/2020 9:28 AM GENERAL LABOR FORKLIFT OPERATOR 11/16/2020 9:28 AM GENERAL LABOR FORKLIFT OPERATOR John Méndez MD CHEMISTRY ORDERABLES Final Resul t Performing Organization Address City/[facility]/ZIP Co de Phone Number [facility] [address] [place] [address] * THYROID STIMULATING HORMONE (TSH) (11/16/2020 9:28 AM GENERAL LABOR FORKLIFT OPERATOR) TSH 2.910 0.270 - 4.200 mIU/L 11/16/2020 1:51 PM GENERAL LABOR FORKLIFT OPERATOR [facility] Blood Venipuncture / Unknown 11/16/2020 9:28 AM GENERAL LABOR FORKLIFT OPERATOR 11/16/2020 9:28 AM GENERAL LABOR FORKLIFT OPERATOR John Méndez MD CHEMISTRY ORDERABLES Final Resul t Performing Organization Address City/[facility]/ZIP Co de Phone Number [facility] [address] [place] [address] * LIPID PANEL (11/16/2020 9:28 AM GENERAL LABOR FORKLIFT OPERATOR) CHOLESTEROL 171 <=200 mg/dL 11/16/2020 1:51 PM GENERAL LABOR FORKLIFT OPERATOR [facility] TRIGLYCERIDES 144 <150 mg/dL 11/16/2020 1:51 PM GENERAL LABOR FORKLIFT OPERATOR [facility] HDL CHOLESTEROL 52.6 >40 mg/dL 1:51 PM GENERAL LABOR FORKLIFT OPERATOR [facility] LDL 90 5 - 130 mg/dL 11/16/2020 1:51 PM GENERAL LABOR FORKLIFT OPERATOR [facility] VLDL 29 5 - 55 mg/dL 11/16/2020 1:51 PM GENERAL LABOR FORKLIFT OPERATOR [facility] CHOL/HDL RATIO 3.3 0.0 - 4.4 11/16/2020 1:51 PM GENERAL LABOR FORKLIFT OPERATOR [facility] NON-HDL CHOLESTEROL 118.4 <130 mg/dL 11/16/2020 1:51 PM GENERAL LABOR FORKLIFT OPERATOR [facility] IS THE PATIENT REQUIRED TO BE FASTING? Yes 11/16/2020 1:51 PM GENERAL LABOR FORKLIFT OPERATOR [facility] HAS THE PATIENT BEEN FASTING? Yes 11/16/2020 1:51 PM GENERAL LABOR FORKLIFT OPERATOR [facility] Blood Venipuncture / Unknown 11/16/2020 9:28 AM GENERAL LABOR FORKLIFT OPERATOR 11/16/2020 9:28 AM GENERAL LABOR FORKLIFT OPERATOR John Méndez MD CHEMISTRY ORDERABLES Final Resul t Performing Organization Address City/[facility]/ZIP Co de Phone Number [facility] [address] [place] [address] * CMP (COMPREHENSIVE METABOLIC PANEL) (11/16/2020 9:28 AM GENERAL LABOR FORKLIFT OPERATOR) SODIUM 140 136 - 144 mmol/L 11/16/2020 1:51 PM [facility] POTASSIUM 4.0 3.5 - 5.1 mmol/L 11/16/2020 1:51 PM [facility] CHLORIDE 103 100 - 110 mmol/L 11/16/2020 1:51 PM [facility] CO2, VENOUS 27 22 - 32 mmol/L 11/16/2020 1:51 PM [facility] ANION GAP 14.0 8.0 - 20.0 mmol/L 11/16/2020 1:51 PM [facility] GLUCOSE 90 70 - 99 mg/dL 11/16/2020 1:51 PM [facility] BUN 11 6 - 20 mg/dL 11/16/2020 1:51 PM [facility] CREATININE, BLOOD 0.65 0.60 - 1.10 mg/dL 11/16/2020 1:51 PM [facility] BUN/CREATININE RATIO 17 12 - 20 ratio 11/16/2020 1:51 PM [facility] TOTAL PROTEIN 7.7 6.0 - 8.3 g/dL 11/16/2020 1:51 PM [facility] ALBUMIN 4.5 3.5 - 5.2 g/dL 11/16/2020 1:51 PM [facility] Comment: The colormetric methods used for the determination of Albumin may lead to falsely elevated test results in patients suffering from renal failure or insufficiency due to interference with other proteins. A/G RATIO 1.4 1.0 - 2.0 11/16/2020 1:51 PM [facility] CALCIUM 9.3 8.9 - 10.3 mg/dL 11/16/2020 1:51 PM [facility] T BILI 0.4 <=1.2 mg/dL 11/16/2020 1:51 PM GENERAL LABOR FORKLIFT OPERATOR [facility] SGOT (AST) 15 <=32 U/L 11/16/2020 1:51 PM GENERAL LABOR FORKLIFT OPERATOR [facility] SGPT (ALT) 14 <=41 U/L 11/16/2020 1:51 PM GENERAL LABOR FORKLIFT OPERATOR [facility] ALKALINE PHOSPHATASE 68 35 - 105 U/L 11/16/2020 1:51 PM GENERAL LABOR FORKLIFT OPERATOR [facility] GFR, EST. NONAFRICAN >60 >=60 11/16/2020 1:51 PM GENERAL LABOR FORKLIFT OPERATOR [facility] GFR, EST. >60 >=60 021 1:51 PM GENERAL LABOR FORKLIFT OPERATOR [facility] Comment: Creatinine Clearance is the preferred criteria for selecting drug dose adjustments in renally impaired patients. ??The GFR is provided as additional pertinent clinical information. GFR is reported in mL/min/1.73 sq m. IS THE PATIENT REQUIRED TO BE FASTING? No 11/16/2020 1:51 PM GENERAL LABOR FORKLIFT OPERATOR [facility] Blood Venipuncture / Unknown 11/16/2020 9:28 AM GENERAL LABOR FORKLIFT OPERATOR 11/16/2020 9:28 AM GENERAL LABOR FORKLIFT OPERATOR us John Méndez MD CHEMISTRY ORDERABLES Final Resul t [facility] [address] [place] [address] * (ABNORMAL) URINALYSIS REFLEX IF INDICATED BY ABNORMAL RESULTS (11/16/2020 9:28 AM GENERAL LABOR FORKLIFT OPERATOR) SPECIFIC GRAVITY 1.020 1.003 - 1.030 11/16/2020 4:39 PM GENERAL LABOR FORKLIFT OPERATOR [facility] URINE PH 5.0 5.0 - 9.0 11/16/2020 4:39 PM [facility] WBC ESTERASE 100 /uL(A) Negative 11/16/2020 4:39 PM GENERAL LABOR FORKLIFT OPERATOR [facility] NITRITE Negative Negative 11/16/2020 4:39 PM GENERAL LABOR FORKLIFT OPERATOR [facility] PROTEIN, RANDOM URINE 15 mg/dL(A) Negative 11/16/2020 4:39 PM GENERAL LABOR FORKLIFT OPERATOR [facility] URINE GLUCOSE, QUAL Negative Negative 11/16/2020 4:39 PM GENERAL LABOR FORKLIFT OPERATOR [facility] URINE KETONES Negative Negative 11/16/2020 4:39 PM GENERAL LABOR FORKLIFT OPERATOR [facility] UROBILINOGEN Normal Normal mg/dL 11/16/2020 4:39 PM GENERAL LABOR FORKLIFT OPERATOR [facility] URINE BILIRUBIN Negative Negative 4:39 PM GENERAL LABOR FORKLIFT OPERATOR [facility] URINE BLOOD 10 /uL(A) Negative marjorie/ul 11/16/2020 4:39 PM GENERAL LABOR FORKLIFT OPERATOR [facility] URINALYSIS COLOR Dark Yellow 021 4:39 PM GENERAL LABOR FORKLIFT OPERATOR [facility] URINALYSIS CLARITY Very Cloudy 11/16/2020 4:39 PM GENERAL LABOR FORKLIFT OPERATOR [facility] WBC (Urine) 11-20(A) Negative, 0-5 /hpf 11/16/2020 4:39 PM GENERAL LABOR FORKLIFT OPERATOR [facility] URINE RBC'S 3-5(A) Negative, 0-2 /hpf 11/16/2020 4:39 PM GENERAL LABOR FORKLIFT OPERATOR [facility] EPITHELIAL CELLS Small amount /lpf 2020 4:39 PM GENERAL LABOR FORKLIFT OPERATOR [facility] BACTERIA, URINE Moderate(A) Negative /hpf 11/16/2020 4:39 PM GENERAL LABOR FORKLIFT OPERATOR [facility] Urine URINE SPECIMEN / Unknown Non-Phlebotomy Collection / Unknown 11/16/2020 9:28 AM GENERAL LABOR FORKLIFT OPERATOR 11/16/2020 9:28 AM GENERAL LABOR FORKLIFT OPERATOR us John Méndez MD URINE ORDERABLES Final Result [facility] [address] [place] [address] documented in this encounter Visit Diagnoses Diagnosis Essential hypertension Unspecified essential hypertension Mixed hyperlipidemia Moderate episode of recurrent major depressive disorder (HCC) documented in this encounter Additional Health Concerns Infection Onset Date Last Indicated Resolved Time MRSA 03/30/2020 03/30/2020 Assessment Noted Time PHQ-9 Depression Total Score: 0 10/19/19 12:31 PM GENERAL LABOR FORKLIFT OPERATOR documented as of this encounter Care Teams Sap Security Consultant Relationship Specialty Start Date End Date John Méndez MD PCP - General Family Medicine 09/28/19 04/26/24 documented as of this encounter
--- OUTSIDE RECORDS SUMMARY | 2024-10-20 04:28 | XMS_ITS | Encounter Summary ---
Author Organization [facility] Address [address] 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 No / Unsure 11/20/2020 6:37 AM BLEACH BOILER FILLER documented as of this encounter Miscellaneous Notes * Telephone Encounter - Radha Tee RN - 11/23/2020 4:30 PM CST Patient requesting 11/16/2020 lab results Please advise CH BOILER FILLER * Telephone Encounter - Tanika Barcenas - 11/23/2020 1:06 PM CST Patient would like her lab results from 11/16/20. CH BOILER FILLER documented in this encounter Plan of Treatment Upcoming Encounters Date Type Department Care Team (Late st Contact Info) Description 11/02/2024 8:15 AM BLEACH BOILER FILLER Office Visit [facility] [address] [place] [address] Dakota Fabian, THOM, SILVER CLEANER [address] [address] 11/26/2024 11:30 AM BLEACH BOILER FILLER Office Visit [facility] [address] [place] [address] Maggie Tolentino, PAC [address] [place] [address] documented as of this encounter Visit Diagnoses Not on filedocumented in this encounter Additional Health Concerns Infection Onset Date Last Indicated Resolved Time MRSA 03/30/2020 03/30/2020 Assessment Noted Time PHQ-9 Depression Total Score: 0 10/19/19 20 12:31 PM BLEACH BOILER FILLER documented as of this encounter Care Teams Oil House Attendant Relationship Specialty Start Date End Date John Méndez MD PCP - General Family Medicine 09/28/19 04/26/24 documented as of this encounter
--- OUTSIDE RECORDS SUMMARY | 2024-10-20 04:28 | XMS_ITS | Encounter Summary ---
Author Organization [facility] Address [address] [facility] 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 Not on [...] st Contact Info) Description 11/02/2024 8:15 AM MEMBER SERVICES REPRESENTATIVE Office Visit [facility] [address] [place] [address] Dakota Fabina APRN, PRODUCTION GEAR CUTTER [address] [address] 11/26/2024 11:30 AM MEMBER SERVICES REPRESENTATIVE Office Visit [facility] [address] [place] [address] Maggie Tolentino, PAC [address] [place] [address] documented as of this encounter Visit Diagnoses Not on filedocumented in this encounter Additional Health Concerns Infection Onset Date Last Indicated Resolved Time MRSA 03/30/2020 03/30/2020 COVID - 19 09/11/2024 09/11/2024 09/11/2024 7:21 PM MEMBER SERVICES REPRESENTATIVE Assessment Noted Time PHQ-9 Depression Total Score: 0 12/15/19 8:53 AM MEMBER SERVICES REPRESENTATIVE documented as of this encounter Care Teams Test Center Manager Relationship Specialty Start Date End Date John Méndez MD PCP - General Family Medicine 12/17/19 7/15/24 Dakota Fabian, LEGAL BILLING ANALYST, PRODUCTION GEAR CUTTER [address] [place] [address] PCP - General Advanced Practice Nurse 04/27/24 documented as of this encounter
--- OUTSIDE RECORDS SUMMARY | 2024-10-20 04:28 | XMS_ITS | Encounter Summary ---
Author Organization [facility] Address [address] 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 [...] st Contact Info) Description 11/02/2024 8:15 AM ACADEMIC ASSISTANT Office Visit [facility] [address] [place] [address] Dakota Fabian, THOM, MANAGER OF DATA [address] [address] 11/26/2024 11:30 AM ACADEMIC ASSISTANT Office Visit [facility] [address] [place] [address] Maggie Tolentino, PAC [address] [place] [address] documented as of this encounter Visit Diagnoses Not on filedocumented in this encounter Additional Health Concerns Infection Onset Date Last Indicated Resolved Time MRSA 03/30/2020 03/30/2020 Assessment Noted Time PHQ-9 Depression Total Score: 0 12/15/19 21 8:53 AM ACADEMIC ASSISTANT documented as of this encounter Care Teams Staff Sonographer Relationship Specialty Start Date End Date John Méndez MD PCP - General Family Medicine 09/28/19 04/26/24 documented as of this encounter
--- OUTSIDE RECORDS SUMMARY | 2024-10-20 04:28 | XMS_ITS | Encounter Summary ---
Author Organization [facility] Address [address] [facility] 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 Financial resource strain: Not [...] file Gets together: Not on file Attends druze service: Not on file Active member of [...] Sinus: Maxillary sinus tenderness present. Mouth/Throat: Lips: [place]. Mouth: Mucous membranes are moist. Dentition: Normal [...] st Contact Info) Description 11/02/2024 8:15 AM OFFICE MESSENGER Office Visit [facility] [place] [address] Dakota Fabian, LIDDING MACHINE OPERATOR, TYPING CHECKER #[address] [address] 11/26/2024 11:30 AM OFFICE MESSENGER Office Visit [facility] [address] [place] [address] Maggie Tolentino, PAC [address]2 [place] [address] documented as of this encounter Visit Diagnoses Diagnosis Acute non-recurrent maxillary sinusitis- Primary documented in this encounter Additional Health Concerns Infection Onset Date Last Indicated Resolved Time MRSA 03/30/2020 03/30/2020 Assessment Noted Time PHQ-9 Depression Total Score: 0 10/19/19 20 12:31 PM OFFICE MESSENGER documented as of this encounter Care Teams Toy Department Manager Relationship Specialty Start Date End Date John Méndez MD PCP - General Family Medicine 09/28/19 04/26/24 documented as of this encounter
--- OUTSIDE RECORDS SUMMARY | 2024-10-20 04:28 | XMS_ITS | Encounter Summary ---
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 file Not [...] st Contact Info) Description 11/02/2024 8:15 AM ASSET ANALYST Office Visit [facility] Medical Group - Family Medicine [facility] [address] [place] [address] Dakota Fabian, CELERY CUTTER, ELECTRICAL MAINTENANCE WORKER #[address] [address] 11/26/2024 11:30 AM ASSET ANALYST Office Visit [facility] - [place] [address] [place] [address] Maggie Tolentino, PAC [address] [place] [address] documented as of this encounter Visit Diagnoses Not on filedocumented in this encounter Additional Health Concerns Infection Onset Date Last Indicated Resolved Time MRSA 03/30/2020 03/30/2020 Assessment Noted Time PHQ-9 Depression Total Score: 0 12/15/19 21 8:53 AM ASSET ANALYST documented as of this encounter Care Teams Acoustical Installer Relationship Specialty Start Date End Date John Méndez MD PCP - General Family Medicine 09/28/19 04/26/24 documented as of this encounter
--- OUTSIDE RECORDS SUMMARY | 2024-10-20 04:28 | XMS_ITS | Encounter Summary ---
Author Organization [facility] Address [address] [facility] 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 [...] Contact Info) Description 11/02/2024 8:15 AM ELECTRICAL PROSPECTING SUPERVISOR Office Visit [facility] [address] [place] [address] Dakota Fabian, THOM, TELEVISION MAINTENANCE WORKER #[address] [address] 11/26/2024 11:30 AM ELECTRICAL PROSPECTING SUPERVISOR Office Visit [facility] [address] [place] [address] Maggie Tolentino, PAC [address] [place] [address] documented as of this encounter Visit Diagnoses Not on filedocumented in this encounter Additional Health Concerns Infection Onset Date Last Indicated Resolved Time MRSA 03/30/2020 03/30/2020 Assessment Noted Time PHQ-9 Depression Total Score: 0 12/15/19 8:53 AM ELECTRICAL PROSPECTING SUPERVISOR documented as of this encounter Care Teams Votator Machine Operator Relationship Specialty Start Date End Date John Méndez MD PCP - General Family Medicine 09/28/19 04/26/24 documented as of this encounter
--- OUTSIDE RECORDS SUMMARY | 2024-10-20 04:28 | XMS_ITS | Encounter Summary ---
Author Organization 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 No / Unsure 12/14/2020 8:23 AM CASE PACKER documented as of this encounter Plan of Treatment Upcoming Encounters Date Type Department Care Team (Late st Contact Info) Description 11/02/2024 8:15 AM CASE PACKER Office Visit [facility] Medical Group - Family Medicine [facility] [address] [place] [address] Dakota Fabian, HOTEL SALES MANAGER, WASTE OIL PUMPER #[address] [address] 11/26/2024 11:30 AM CASE PACKER Office Visit [facility] - Family Medicine [facility] [address] [place] [address] Maggie Tolentino, [facility] [address]2 [place] [address] documented as of this encounter Visit Diagnoses Not on filedocumented in this encounter Additional Health Concerns Infection Onset Date Last Indicated Resolved Time MRSA 03/30/2020 03/30/2020 Assessment Noted Time PHQ-9 Depression Total Score: 0 12/15/19 21 8:53 AM CASE PACKER documented as of this encounter Care Teams Car Pusher Relationship Specialty Start Date End Date John Méndez MD PCP - General Family Medicine 09/28/19 04/26/24 documented as of this encounter
--- OUTSIDE RECORDS SUMMARY | 2024-10-20 04:28 | XMS_ITS | Encounter Summary ---
Author Organization [facility] Address [address] [facility] 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 [...] Contact Info) Description 11/02/2024 8:15 AM CLIENT SERVICES ASSISTANT Office Visit [facility] [address] [place] [address] Dakota Fabian APRN, CIGARETTE MACHINE FILLER #[address] [address] 11/26/2024 11:30 AM CLIENT SERVICES ASSISTANT Office Visit [facility] [address] [facility] [address] Maggie Tolentino, PAC [address] [place] [address] documented as of this encounter Visit Diagnoses Not on filedocumented in this encounter Additional Health Concerns Infection Onset Date Last Indicated Resolved Time MRSA 03/30/2020 03/30/2020 Assessment Noted Time PHQ-9 Depression Total Score: 0 10/19/19 20 12:31 PM CLIENT SERVICES ASSISTANT documented as of this encounter Care Teams Creative Strategist Relationship Specialty Start Date End Date John Méndez MD PCP - General Family Medicine 09/28/19 04/26/24 documented as of this encounter
--- OUTSIDE RECORDS SUMMARY | 2024-10-20 04:28 | XMS_ITS | Encounter Summary ---
Author Organization [facility] Address [address] [facility] [place] [address] Phone Care Team Providers Care Php Mysql Web Developer Name Role Phone John Méndez MD Primary Care Provider [phone] Reason for Referral * Radiology Services (Routine) - Closed Specialty Diagnoses / Procedures Referred By Contac t Referred To Contact Radiology Diagnoses Breast cancer screening by mammogram Procedures MARCO A SCREENING BILATERAL DIGITAL W CAD W SHENG John Méndez MD Phone: tel: fax: Referral ID Status Reason Start Date Expiration Date Visits Re quested Visits Authorized [id number] Closed 06/09/2020 1 1 Reason for Visit * Reason Comments Abscess Patient is here for an abscess in her armpit x1 week and pt states it is not draining at this time. She has been putting heat on it Encounter Details Date Type Department Care Team (Late st Contact Info) Description 06/09/2020 9:15 AM CDT Office Visit 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 Financial resource strain: Not [...] st Contact Info) Description 11/02/2024 8:15 AM TRANSIT MANAGER Office Visit [facility] [address] [place] [address] Dakota Fabian APRN, COMMUNITY DEVELOPMENT COORDINATOR #[address] [address] 11/26/2024 11:30 AM TRANSIT MANAGER Office Visit [facility] [address] [place] [address] Maggie Tolentino PAC [address] [place] [address] documented as of this encounter Results * [...] to exams dated: ??02/13/2016, 09/05/2018, and 12/27/2014 [facility]. ?? BREAST TISSUE:The tissue of both breasts [...] Killian Sandoval M.D. ? ll/penrad:07/23/2020 20:19:36 ?? Cardiology Physician Assistant: Nina Metcalf RT(R)(M), [facility] letter sent: Normal Exam ?? Reading location: [facility] BI-RADS: 1 Negative Procedure Note Killian Sandoval [...] to exams dated: 02/13/2016, 09/05/2018, and 12/27/2014 [facility]. BREAST TISSUE:The tissue of both breasts is [...] exam. Electronically signed by: Killian barron/antoine:07/23/2020 20:19:36 Cardiology Physician Assistant: Nina Metcalf RT(R)(M), [facility] letter sent: Normal Exam Reading location: [facility] BI-RADS: 1 Negative us John Méndez MD [...] Total Score: 0 10/19/19 20 12:31 PM TRANSIT MANAGER documented as of this encounter Care Teams Php Mysql Web Developer Relationship Specialty Start Date End Date John Méndez MD PCP - General Family Medicine 09/28/19 04/26/24 documented as of this encounter
--- OUTSIDE RECORDS SUMMARY | 2024-10-20 04:28 | XMS_ITS | Encounter Summary ---
Author Organization [facility] Address [address] [facility] 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 No / Unsure 11/20/2020 6:37 AM ARTS AND CRAFTS INSTRUCTOR documented as of this encounter Miscellaneous Notes [...] mild vomiting with associated diarrhea) Protocols used: [id number] AND CRAFTS INSTRUCTOR documented in this encounter Plan of Treatment Upcoming Encounters Date Type Department Care Team (Late st Contact Info) Description 11/02/2024 8:15 AM ARTS AND CRAFTS INSTRUCTOR Office Visit [facility] [address] [place] [address] Dakota Fabian APRN, MARKETING TRAFFIC COORDINATOR #[address] [address] 11/26/2024 11:30 AM ARTS AND CRAFTS INSTRUCTOR Office Visit [facility] [address] [place] [address] Maggie Tolentino, PAC [address] [place] [address] documented as of this encounter Visit Diagnoses Not on filedocumented in this encounter Additional Health Concerns Infection Onset Date Last Indicated Resolved Time MRSA 03/30/2020 03/30/2020 Assessment Noted Time PHQ-9 Depression Total Score: 0 10/19/19 20 12:31 PM ARTS AND CRAFTS INSTRUCTOR documented as of this encounter Care Teams Explosive Specialist Relationship Specialty Start Date End Date John Méndez MD PCP - General Family Medicine 09/28/19 04/26/24 documented as of this encounter
--- OUTSIDE RECORDS SUMMARY | 2024-10-20 04:28 | XMS_ITS | Encounter Summary ---
Author Organization [facility] Address [address] [facility] [place] [address] Phone Care Team Providers Care Phlebotomy Coordinator Name Role Phone John Méndez MD Primary Care Provider [phone] Reason for Referral * Radiology Services (Routine) - Closed Specialty Diagnoses / Procedures Referred By Errolac t Referred To Contact Radiology Diagnoses Breast cancer screening by mammogram Procedures MARCO A SCREENING BILATERAL DIGITAL W CAD W John Waterman MD Phone: tel: fax: Referral ID Status Reason Start Date Expiration Date Visits Re quested Visits Authorized [id number] Closed 06/09/2020 1 1 Reason for Visit * Radiology Services (Routine) - Closed Specialty Diagnoses / Procedures Referred By Magui t Referred To Contact Radiology Diagnoses Breast cancer screening by mammogram Procedures MARCO A SCREENING BILATERAL DIGITAL W CAD W John Waterman MD Phone: tel: fax: Referral ID Status Reason Start Date Expiration Date Visits Re quested Visits Authorized [id number] Closed 06/09/2020 1 1 Encounter Details Date Type Department Care Team (Latest Contact Info) Description 07/22/2020 10:10 AM CDT - 07/22/2020 11:59 PM CDT Hospital Encounter [facility] Mammography [facility] [place] [address] John Méndez MD [address] [place] [address] Discharge Disposition: Discharged to home or Selfcare [...] 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. ?? BREAST TISSUE:The tissue of [...] Killian Sandoval M.D. ? ll/penrad:07/23/2020 20:19:36 ?? Sexologist: Nina Metcalf RT(R)(M), [facility] letter sent: Normal Exam ?? [...] to exams dated: 02/13/2016, 09/05/2018, and 12/27/[address] [facility]. BREAST TISSUE:The tissue of both [...] exam. Electronically signed by: Killian barron/penrad:07/23/2020 20:19:36 Sexologist: Nina Metcalf RT(R)(M), [facility] letter sent: Normal Exam Reading location: [place] BI-RADS: 1 Negative us John Méndez MD IMG MAMMO ORDERABLES Final Resul t documented in this encounter Visit Diagnoses Diagnosis Breast cancer screening by mammogram documented in this encounter Additional Health Concerns Infection Onset Date Last Indicated Resolved Time MRSA 03/30/2020 03/30/2020 Assessment Noted Time PHQ-9 Depression Total Score: 0 10/19/19 20 12:31 PM FLIGHT ATTENDANT/INFLIGHT SUPERVISOR documented as of this encounter Care Teams Phlebotomy Coordinator Relationship Specialty Start Date End Date John Méndez MD PCP - General Family Medicine 09/28/19 04/26/24 documented as of this encounter
--- OUTSIDE RECORDS SUMMARY | 2024-10-20 04:28 | XMS_ITS | Encounter Summary ---
Author Organization [facility] Address [address] 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 No / Unsure 11/20/2020 6:37 AM HEALTH TECHNICIAN HEARING documented as of this encounter Miscellaneous Notes [...] with PCP at her follow-up appointment on12.14.20 TH TECHNICIAN HEARING * Telephone Encounter - John Méndez MD - 12/06/2020 3:16 PM CST She has this in the system. It is a very good test. I am ok with the lexapro and zoloft and dont care but where is the fentanyl coming from. Not poppy seeds. And no I am not repeating this as it doesnot matter now. TH TECHNICIAN HEARING * Telephone Encounter - Madelin Hartley RN [...] valerie testing. Says she eats poppy seeds. TH TECHNICIAN HEARING * Telephone Encounter - Jacinta Haro RN - 12/05/2020 5:33 PM CST lmom give pcp message TH TECHNICIAN HEARING * Telephone Encounter - Jacinta Haro RN - 12/05/2020 5:33 PM CST ----- Message from John Méndez MD sent at 12/05/2020 5:23 PM HEALTH TECHNICIAN HEARING ----- Please let her know that she did not pass her drug test. She had fentanyl and also zoloft in her system but did not have any of the lexapro or celexa in her system. She did have the codeine but should not have had the fentanyl in there this is bad. TH TECHNICIAN HEARING documented in this encounter Plan of Treatment Upcoming Encounters Date Type Department Care Team (Late st Contact Info) Description 11/02/2024 8:15 AM HEALTH TECHNICIAN HEARING Office Visit [facility] [address] [place] [address] Dakota Fabian, MILITARY LOGISTICS SPECIALIST, GAS MAIN FITTER #[address] [address] 11/26/2024 11:30 AM HEALTH TECHNICIAN HEARING Office Visit [facility] [address] [place] [address] Maggie Tolentino, PAC [address] [place] [address] documented as of this encounter Visit Diagnoses Not on filedocumented in this encounter Additional Health Concerns Infection Onset Date Last Indicated Resolved Time MRSA 03/30/2020 03/30/2020 Assessment Noted Time PHQ-9 Depression Total Score: 0 10/19/19 20 12:31 PM HEALTH TECHNICIAN HEARING documented as of this encounter Care Teams Shipwright Helper Relationship Specialty Start Date End Date John Méndez MD PCP - General Family Medicine 09/28/19 04/26/24 documented as of this encounter
--- OUTSIDE RECORDS SUMMARY | 2024-10-20 04:28 | XMS_ITS | Encounter Summary ---
Author Organization [facility] Address [address] 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 No / Unsure 12/14/2020 8:23 AM PROMOTIONAL MARKETING ANALYST documented as of this encounter Last Filed Vital Signs Vital Sign Reading Time Taken Comments Blood Pressure 126/74 12/14/2020 8:51 AM PROMOTIONAL MARKETING ANALYST Pulse 87 12/14/2020 8:51 AM PROMOTIONAL MARKETING ANALYST Temperature 36.4 ??C (97.6 ??F) 12/14/2020 8:51 AM CS T Respiratory Rate 16 12/14/2020 8:51 AM PROMOTIONAL MARKETING ANALYST Oxygen Saturation 100% 12/14/2020 8:51 AM PROMOTIONAL MARKETING ANALYST Inhaled Oxygen Concentration - - Weight 95.2 kg (209 lb 12.8 oz) 12/14/2020 8:51 AM PROMOTIONAL MARKETING ANALYST Height 160 cm (5' 3 ) 12/14/2020 8:51 AM PROMOTIONAL MARKETING ANALYST Body Mass Index 37.16 12/14/2020 8:51 AM PROMOTIONAL MARKETING ANALYST documented in this encounter Progress Notes * Marline Blake - 12/14/2020 8:45 AM CST Melinda Olmedo is a 45 y.o. female with current BMI: Body mass index is 37.16 kg/m??. Interventions discussed including: encourage daily physical activity and well- balanced diet. OTIONAL MARKETING ANALYST * Marline Blake - 12/14/2020 8:45 AM [...] patient today: BMI, Flu, Pap and Depression OTIONAL MARKETING ANALYST * Tim Mckeon - 12/14/2020 8:45 AM [...] Patient gave verbal consent to use virtual scribe/quality assurance assessor service, Asaf, understanding ourvisit was being recorded for purposes of improving efficiency of documentation and enhancing clinicexperience for patients. Transcribed by Asaf at 11:14 AM on 12/14/2020. OTIONAL MARKETING ANALYST documented in this encounter Plan of Treatment Upcoming Encounters Date Type Department Care Team (Late st Contact Info) Description 11/02/2024 8:15 AM PROMOTIONAL MARKETING ANALYST Office Visit [facility] [address] [place] [address] Dakota Fabian, THOM, ASSISTANT WINEMAKER #[address] [address] 11/26/2024 11:30 AM PROMOTIONAL MARKETING ANALYST Office Visit [facility] [address] [place] [address] Maggie Tolentino, PAC [address] [place] [address] documented as of this encounter Visit Diagnoses Diagnosis Moderate episode of recurrent major depressive disorder (HCC)- Primary Anxiety Anxiety state, unspecified documented in this encounter Additional Health Concerns Infection Onset Date Last Indicated Resolved Time MRSA 03/30/2020 03/30/2020 Assessment Noted Time PHQ-9 Depression Total Score: 0 12/15/19 8:53 AM PROMOTIONAL MARKETING ANALYST documented as of this encounter Care Teams Copy Writer Relationship Specialty Start Date End Date John Méndez MD PCP - General Family Medicine 09/28/19 04/26/24 documented as of this encounter
--- OUTSIDE RECORDS SUMMARY | 2024-10-20 04:28 | XMS_ITS | Encounter Summary ---
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 [...] st Contact Info) Description 11/02/2024 8:15 AM LOCK FITTER Office Visit [facility] - Family Medicine [facility] [address] [place] [address] Dakota Fabian, ASSISTANT PLANT MANAGER, FRONT OFFICE HELP #[address] [address] 11/26/2024 11:30 AM LOCK FITTER Office Visit [facility] [place] [address] [place] [address] Maggie Tolentino, PAC [address] [place] [address] documented as of this encounter Visit Diagnoses Not on filedocumented in this encounter Additional Health Concerns Infection Onset Date Last Indicated Resolved Time MRSA 03/30/2020 03/30/2020 Assessment Noted Time PHQ-9 Depression Total Score: 0 10/19/19 20 12:31 PM LOCK FITTER documented as of this encounter Care Teams Beauty Director Relationship Specialty Start Date End Date John Méndez MD PCP - General Family Medicine 09/28/19 04/26/24 documented as of this encounter
--- OUTSIDE RECORDS SUMMARY | 2024-10-20 04:28 | XMS_ITS | Encounter Summary ---
Author Organization [facility] Address [address] [facility] [place] [address] Phone Care Team Providers Care Psychology Intern Name Role Phone John Méndez MD Primary Care Provider [phone] Reason for Visit * Reason Comments Medication Refill med refills Encounter Details Date Type Department Care Team (Late st Contact Info) Description 11/15/2020 9:45 AM NICKING MACHINE OPERATOR Office Visit 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 No / Unsure 11/20/2020 6:37 AM NICKING MACHINE OPERATOR documented as of this encounter Last Filed Vital Signs Vital Sign Reading Time Taken Comments Blood Pressure 124/68 11/15/2020 10:10 AM NICKING MACHINE OPERATOR Pulse 55 11/15/2020 10:10 AM NICKING MACHINE OPERATOR Temperature 36.3 ??C (97.3 ??F) 11/15/2020 10:[address] Respiratory Rate 16 11/15/2020 10:10 AM NICKING MACHINE OPERATOR Oxygen Saturation 100% 11/15/2020 10:10 AM NICKING MACHINE OPERATOR Inhaled Oxygen Concentration - - Weight 96.3 kg (212 lb 6.4 oz) 11/15/2020 10:10 AM NICKING MACHINE OPERATOR Height 160 cm (5' 3 ) 11/15/2020 10:10 AM NICKING MACHINE OPERATOR Body Mass Index 37.62 11/15/2020 10:10 AM NICKING MACHINE OPERATOR documented in this encounter Progress Notes [...] the patient today: BMI, Flu and Pap ING MACHINE OPERATOR * Kindra Monique - 11/15/2020 9:45 AM [...] by Asaf at 10:55 AM on 11/20/2020. ING MACHINE OPERATOR documented in this encounter Plan of Treatment Upcoming Encounters Date Type Department Care Team (Late st Contact Info) Description 11/02/2024 8:15 AM NICKING MACHINE OPERATOR Office Visit [facility] [address] [place] [address] Dakota Fabian APRN, COATER BRAKE LININGS #[address] [address] 11/26/2024 11:30 AM NICKING MACHINE OPERATOR Office Visit [facility] [address] [place] [address] Maggie Toletnino, PAC [address] [place] [address] documented as of this encounter Results * VITAMIN B12 (11/16/2020 9:28 AM NICKING MACHINE OPERATOR) VITAMIN B12 426 243 - 894 pg/mL 11/16/2020 2:01 PM NICKING MACHINE OPERATOR [facility] Blood Venipuncture / Unknown 11/16/2020 9:28 AM NICKING MACHINE OPERATOR 11/16/2020 9:28 AM NICKING MACHINE OPERATOR us John Méndez MD CHEMISTRY ORDERABLES Final Resul t Performing Organization Address City/[facility] Co de Phone Number [facility] [address] [place] [address] * (ABNORMAL) VITAMIN D, 25 HYDROXY TOTAL (11/16/2020 9:28 AM NICKING MACHINE OPERATOR) VITAMIN D, 25 HYDROX 20(L) >=30 ng/mL 11/16/2020 2:01 PM NICKING MACHINE OPERATOR [facility] Blood Venipuncture / Unknown 11/16/2020 9:28 AM NICKING MACHINE OPERATOR 11/16/2020 9:28 AM NICKING MACHINE OPERATOR Narrative [facility] - 11/16/2020 2:01 PM NICKING MACHINE OPERATOR Published reference ranges for Vitamin D vary depending on time and place and method of testing, and on patient's age, sex, ethnicity and levels of other measured analytes such as parathormone, calcium and phosphorus. ??The result should be evaluated in conjunction with clinical findings and suspicions. [place] [employer] and [employer] Clinical Practice Guidelines: Status Vitamin D levels (ng/mL) Deficient <=20 At risk of inadequacy 21-29 Sufficient 30-100 Centers of Disease Control and Prevention Guidelines: Status Vitamin D levels (ng/mL) Deficient <13 At risk of inadequacy 13-19 Sufficient 20-50 Possibly harmful >50 References: [place] [employer], 2010 Dietary reference intakes for calcium and vitamin D. [place]: ??The National Academies Press. Vijay M, Fabiana N, Jerrod ISBELL, et al., Evaluation, treatment, and prevention of Vitamin D deficiency: an Endocrinology Clinical Practice Guideline. JCEM 2011 96: 7 5138-6166. Kathy A, Amari C, Maicol D, et al., Vitamin D Status: ??[place], 2000- 1005, [facility] data brief, no. 59, MD [place]: ??National Center for Health Statistics. 2010. John Méndez MD CHEMISTRY ORDERABLES Final Resul t Performing Organization Address City/[facility]/ZIP Co de Phone Number [facility] [address] [place] [address] * THYROXINE (T4) FREE (11/16/2020 9:28 AM NICKING MACHINE OPERATOR) Pathologist [facility] T4 FREE 1.3 0.9 - 1.7 ng/dL 11/16/2020 1:51 PM NICKING MACHINE OPERATOR [facility] Blood Venipuncture / Unknown 11/16/2020 9:28 AM NICKING MACHINE OPERATOR 11/16/2020 9:28 AM NICKING MACHINE OPERATOR John Méndez MD CHEMISTRY ORDERABLES Final Resul t [facility] [address] [place] [address] * THYROID STIMULATING HORMONE (TSH) (11/16/2020 9:28 AM NICKING MACHINE OPERATOR) Pathologist [facility] TSH 2.910 0.270 - 4.200 mIU/L 11/16/2020 1:51 PM NICKING MACHINE OPERATOR [facility] Blood Venipuncture / Unknown 11/16/2020 9:28 AM NICKING MACHINE OPERATOR 11/16/2020 9:28 AM NICKING MACHINE OPERATOR us John Méndez MD CHEMISTRY ORDERABLES Final Resul t [facility] [address] [place] [address] * LIPID PANEL (11/16/2020 9:28 AM NICKING MACHINE OPERATOR) Pathologist [facility] CHOLESTEROL 171 <=200 mg/dL 11/16/2020 1:51 PM NICKING MACHINE OPERATOR [facility] TRIGLYCERIDES 144 <150 mg/dL 11/16/2020 1:51 PM NICKING MACHINE OPERATOR [facility] HDL CHOLESTEROL 52.6 >40 mg/dL 1:51 PM NICKING MACHINE OPERATOR [facility] LDL 90 5 - 130 mg/dL 11/16/2020 1:[address] [facility] VLDL 29 5 - 55 mg/dL 11/16/2020 1:[address] [facility] CHOL/HDL RATIO 3.3 0.0 - 4.4 11/16/2020 1:[address] [facility] NON-HDL CHOLESTEROL 118.4 <130 mg/dL 11/16/2020 1:[address] [facility] IS THE PATIENT REQUIRED TO BE FASTING? Yes 11/16/2020 1:[address] [facility] HAS THE PATIENT BEEN FASTING? Yes 11/16/2020 1:[address] [facility] Blood Venipuncture / Unknown 11/16/2020 9:28 AM NICKING MACHINE OPERATOR 11/16/2020 9:28 AM NICKING MACHINE OPERATOR us John Méndez MD CHEMISTRY ORDERABLES Final Resul t [facility] [address] [place] [address] * CMP (COMPREHENSIVE METABOLIC PANEL) (11/16/2020 9:28 AM NICKING MACHINE OPERATOR) SODIUM 140 136 - 144 mmol/L 11/16/2020 1:[address] [facility] POTASSIUM 4.0 3.5 - 5.1 mmol/L 11/16/2020 1:[address] [facility] CHLORIDE 103 100 - 110 mmol/L 11/16/2020 1:[address] [facility] CO2, VENOUS 27 22 - 32 mmol/L 11/16/2020 1:[address] [facility] ANION GAP 14.0 8.0 - 20.0 mmol/L 11/16/2020 1:[address] [facility] GLUCOSE 90 70 - 99 mg/dL 11/16/2020 1:[address] [facility] BUN 11 6 - 20 mg/dL 11/16/2020 1:[address] [facility] CREATININE, BLOOD 0.65 0.60 - 1.10 mg/dL 11/16/2020 1:[address] [facility] BUN/CREATININE RATIO 17 12 - 20 ratio 11/16/2020 1:[address] [facility] TOTAL PROTEIN 7.7 6.0 - 8.3 g/dL 11/16/2020 1:[address] [facility] ALBUMIN 4.5 3.5 - 5.2 g/dL 11/16/2020 1:[address] [facility] Comment: The colormetric methods used for the determination of Albumin may lead to falsely elevated test results in patients suffering from renal failure or insufficiency due to interference with other proteins. A/G RATIO 1.4 1.0 - 2.0 11/16/2020 1:[address] [facility] CALCIUM 9.3 8.9 - 10.3 mg/dL 11/16/2020 1:[address] [facility] T BILI 0.4 <=1.2 mg/dL 11/16/2020 1:[address] [facility] SGOT (AST) 15 <=32 U/L 11/16/2020 1:[address] [facility] SGPT (ALT) 14 <=41 U/L 11/16/2020 1:[address] [facility] ALKALINE PHOSPHATASE 68 35 - 105 U/L 11/16/2020 1:[address] [facility] GFR, EST. NONAFRICAN >60 >=60 11/16/2020 1:[address] [facility] GFR, EST. >60 >=60 021 1:[address] [facility] Comment: Creatinine Clearance is the preferred criteria for selecting drug dose adjustments in renally impaired patients. ??The GFR is provided as additional pertinent clinical information. GFR is reported in mL/min/1.73 sq m. IS THE PATIENT REQUIRED TO BE FASTING? No 11/16/2020 1:[address] [facility] Blood Venipuncture / Unknown 11/16/2020 9:28 AM NICKING MACHINE OPERATOR 11/16/2020 9:28 AM NICKING MACHINE OPERATOR us John Méndez MD CHEMISTRY ORDERABLES Final Resul t [facility] [address] [place] [address] * (ABNORMAL) URINALYSIS REFLEX IF INDICATED BY ABNORMAL RESULTS (11/16/2020 9:28 AM NICKING MACHINE OPERATOR) SPECIFIC GRAVITY 1.020 1.003 - 1.030 11/16/2020 4:39 PM NICKING MACHINE OPERATOR [facility] URINE PH 5.0 5.0 - 9.0 11/16/2020 4:39 PM NICKING MACHINE OPERATOR [facility] WBC ESTERASE 100 /uL(A) Negative 11/16/2020 4:39 PM NICKING MACHINE OPERATOR [facility] NITRITE Negative Negative 11/16/2020 4:39 PM NICKING MACHINE OPERATOR [facility] PROTEIN, RANDOM URINE 15 mg/dL(A) Negative 11/16/2020 4:39 PM NICKING MACHINE OPERATOR [facility] URINE GLUCOSE, QUAL Negative Negative 11/16/2020 4:39 PM NICKING MACHINE OPERATOR [facility] URINE KETONES Negative Negative 11/16/2020 4:39 PM NICKING MACHINE OPERATOR [facility] UROBILINOGEN Normal Normal mg/dL 11/16/2020 4:39 PM NICKING MACHINE OPERATOR [facility] URINE BILIRUBIN Negative Negative 4:39 PM NICKING MACHINE OPERATOR [facility] URINE BLOOD 10 /uL(A) Negative marjorie/ul 11/16/2020 4:39 PM NICKING MACHINE OPERATOR [facility] URINALYSIS COLOR Dark Yellow 021 4:39 PM NICKING MACHINE OPERATOR [facility] URINALYSIS CLARITY Very Cloudy 11/16/2020 4:[address] [facility] WBC (Urine) 11-20(A) Negative, 0-5 /hpf 11/16/2020 4:39 PM NICKING MACHINE OPERATOR [facility] URINE RBC'S 3-5(A) Negative, 0-2 /hpf 11/16/2020 4:39 PM NICKING MACHINE OPERATOR [facility] EPITHELIAL CELLS Small amount /lpf 2020 4:39 PM NICKING MACHINE OPERATOR [facility] BACTERIA, URINE Moderate(A) Negative /hpf 11/16/2020 4:39 PM NICKING MACHINE OPERATOR [facility] Urine URINE SPECIMEN / Unknown Non-Phlebotomy Collection / Unknown 11/16/2020 9:28 AM NICKING MACHINE OPERATOR 11/16/2020 9:28 AM NICKING MACHINE OPERATOR John Méndez MD URINE ORDERABLES Final Result [facility] [address] [place] [address] * URINE DRUG SCREEN (11/15/2020) Urine John [...] Total Score: 0 10/19/19 20 12:31 PM NICKING MACHINE OPERATOR documented as of this encounter Care Teams Psychology Intern Relationship Specialty Start Date End Date John Méndez MD PCP - General Family Medicine 09/28/19 04/26/24 documented as of this encounter
--- OUTSIDE RECORDS SUMMARY | 2024-10-20 04:29 | XMS_ITS | Encounter Summary ---
Author Organization [facility] Address [address] [place] [address] Phone Care Team Providers Care Self Defense Instructor Name Role Phone John Méndez MD Primary Care Provider [phone] Reason for Visit * Reason Comments Wound sore on right leg Encounter Details Date Type Department Care Team (Late st Contact Info) Description 10/19/2019 12:45 PM DISTRIBUTION SALES REPRESENTATIVE 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 Not on file documented as of this encounter Last Filed Vital Signs Vital Sign Reading Time Taken Comments Blood Pressure 136/96 10/19/2019 12:37 PM DISTRIBUTION SALES REPRESENTATIVE Pulse 83 10/19/2019 12:37 PM DISTRIBUTION SALES REPRESENTATIVE Temperature 37.6 ??C (99.7 ??F) 10/19/2019 12:[address] Respiratory Rate 18 10/19/2019 12:37 PM DISTRIBUTION SALES REPRESENTATIVE Oxygen Saturation 98% 10/19/2019 12:37 PM DISTRIBUTION SALES REPRESENTATIVE Inhaled Oxygen Concentration - - Weight 105.2 kg (232 lb) 10/19/2019 12:37 PM DISTRIBUTION SALES REPRESENTATIVE Height 157.5 cm (5' 2 ) 10/19/2019 12:37 PM DISTRIBUTION SALES REPRESENTATIVE Body Mass Index 42.43 10/19/2019 12:37 PM DISTRIBUTION SALES REPRESENTATIVE documented in this encounter Progress Notes * [...] hours as neededfor Cough. 10/12/19 Dakota Fabian, DRY STARCH SUPERVISOR, HOTEL SERVICES SALES REPRESENTATIVE hydroCHLOROthiazide 25 MG Tablet Take 1 Tab [...] 1 Tab by mouth daily. 09/28/19 John Médnez MD losartan potassium-hydrochlorothiazide (HYZAAR) 100-25 MG Tablet [...] the patient today: Flu, PAP and Depression RIBUTION SALES REPRESENTATIVE * Aylin Juan APN, MIGUEL ANGEL - [...] given to the patient. Patient (or patient health and safety representative) demonstrates verbal understanding of instructions given. [...] additions, deletions and changes made as appropriate. RIBUTION SALES REPRESENTATIVE documented in this encounter Plan of Treatment Upcoming Encounters Date Type Department Care Team (Late st Contact Info) Description 11/02/2024 8:15 AM DISTRIBUTION SALES REPRESENTATIVE Office Visit [facility] [place] [address] Dakota Fabian APRN, HOTEL SERVICES SALES REPRESENTATIVE #[address] [address] 11/26/2024 11:30 AM DISTRIBUTION SALES REPRESENTATIVE Office Visit [facility] [place] [address] Maggie Tolentino PAC [address] [place] [address] documented as of this encounter Visit Diagnoses Diagnosis Brown recluse spider bite or sting, accidental or unintentional, subsequent encounter- Primary documented in this encounter Additional Health Concerns Assessment Noted Time PHQ-9 Depression Total Score: 0 10/19/19 20 12:31 PM DISTRIBUTION SALES REPRESENTATIVE documented as of this encounter Care Teams Self Defense Instructor Relationship Specialty Start Date End Date John Méndez MD PCP - General Family Medicine 09/28/19 04/26/24 documented as of this encounter
--- OUTSIDE RECORDS SUMMARY | 2024-10-20 04:29 | XMS_ITS | Encounter Summary ---
Author Organization [facility] Address [address] 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 Patient reports her back is hurting bad and she is hoping these can get refilled ALEXANDRE? Please advise NCIAL SERVICES REPRESENTATIVE * Telephone Encounter - Antoinette Vera RN [...] or sting, accidental or unintentional, subsequent encounter [facility] PHYSIC[facility] Aylin Juan APN, AUTOTRANSFUSIONIST 2 weeks ago Acute URI [facility] Dakota Fabian APN, MOBILE SECURITY SPECIALIST 4 weeks ago Sacroiliac joint dysfunction of both sides [facility] John Méndez MD Upcoming Appointments Future Appointments In 6 days Aylin Juan APN, AUTOTRANSFUSIONIST [facility] In 2 months John Méndez MD [facility] NCIAL SERVICES REPRESENTATIVE * Telephone Encounter - Jeannie Mejia RN - 10/27/2019 9:10 AM FINANCIAL SERVICES REPRESENTATIVE ----- Message from Alecia Orona sent at 10/27/2019 8:42 AM FINANCIAL SERVICES REPRESENTATIVE ----- RFC: FAX REFILL REQUEST Name of medication needed? acetaminophen-codeine (TYLENOL #3) 300-30 MG Tablet Take 1-2 Tabs by mouth 3 times daily as needed for Moderate or more severe pain [facility] 30 Provider John Méndez NCIAL SERVICES REPRESENTATIVE documented in this encounter Plan of Treatment Upcoming Encounters Date Type Department Care Team (Late st Contact Info) Description 11/02/2024 8:15 AM FINANCIAL SERVICES REPRESENTATIVE [facility] [place] [facility] [place] [address] Dakota Fabian APRN, MOBILE SECURITY SPECIALIST #[address] [address] 11/26/2024 11:30 AM FINANCIAL SERVICES REPRESENTATIVE [facility] [place] [facility] [place] [address] Maggie Tolentino, PAC [address] [place] [address] documented as of this encounter Visit Diagnoses Not on filedocumented in this encounter Additional Health Concerns Assessment Noted Time PHQ-9 Depression Total Score: 0 10/19/19 20 12:31 PM FINANCIAL SERVICES REPRESENTATIVE documented as of this encounter Care Teams China Decorator Relationship Specialty Start Date End Date John Méndez MD PCP - General Family Medicine 09/28/19 04/26/24 documented as of this encounter
--- OUTSIDE RECORDS SUMMARY | 2024-10-20 04:29 | XMS_ITS | Encounter Summary ---
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 Not on file documented as of this encounter Plan of Treatment Upcoming Encounters Date Type Department Care Team (Late st Contact Info) Description 11/02/2024 8:15 AM SOCIAL SERVICES AIDE Office Visit [facility] [address] [place] [address] Dakota Fabian APRN, MINERALOGY TEACHER #[address] [address] 11/26/2024 11:30 AM SOCIAL SERVICES AIDE Office Visit [facility] [address] [place] [address] Maggie Tolentino, PAC [address] [place] [address] documented as of this encounter Visit Diagnoses Not on filedocumented in this encounter Additional Health Concerns Assessment Noted Time PHQ-9 Depression Total Score: 0 10/19/19 20 12:31 PM SOCIAL SERVICES AIDE documented as of this encounter Care Teams Skiver Operator Relationship Specialty Start Date End Date John Méndez MD PCP - General Family Medicine 09/28/19 04/26/24 documented as of this encounter
--- OUTSIDE RECORDS SUMMARY | 2024-10-20 04:29 | XMS_ITS | Encounter Summary ---
Author Organization [facility] Address [address] 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 Not on file documented as of this encounter Last Filed Vital Signs Vital Sign Reading Time Taken Comments Blood Pressure 145/102 10/17/2019 6:54 PM FIELD SERVICE SPECIALIST Pulse 78 10/17/2019 6:54 PM FIELD SERVICE SPECIALIST Temperature 37.2 ??C (99 ??F) 10/17/2019 5:58 PM FIELD SERVICE SPECIALIST Respiratory Rate 16 10/17/2019 6:54 PM FIELD SERVICE SPECIALIST Oxygen Saturation 100% 10/17/2019 6:54 PM FIELD SERVICE SPECIALIST Inhaled Oxygen Concentration - - Weight 90.7 kg (200 lb) 10/17/2019 5:58 PM FIELD SERVICE SPECIALIST Height 157.5 cm (5' 2 ) 10/17/2019 5:58 PM FIELD SERVICE SPECIALIST Body Mass Index 36.58 10/17/2019 5:58 PM FIELD SERVICE SPECIALIST documented in this encounter Discharge Instructions * Attachments The following attachments cannot be sent through Care Everywhere. * Bite, Brown Recluse Spider (Korean) documented in this encounter Medications at Time [...] per ambulatory mode with mother as responsible green party/catshovel driver home. D SERVICE SPECIALIST * Monty Stuart, RN - 10/17/2019 6:34 PM CST Pt medicated per provider orders. Pt educated on intended effects and side effects of medication and verbalized understanding, able to provide teach back of education. D SERVICE SPECIALIST * Guido Turner MD - 10/17/2019 6:13 [...] file Occupational History ??? 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 Financial resource strain: Not [...] file Gets together: Not on file Attends spiritism service: Not on file Active member of [...] to follow-up with: John Méndez MD [address] [address] As needed Disposition: Discharge By signing my [...] accurate andcomplete. Dr. Turner, 10/21/19 7:20 AM D SERVICE SPECIALIST * Evelyne Tian RN - 10/17/2019 5:58 PM CST Patient here with spider bite to her right lower leg. States she did see the spider that bit here. Started out as a small red dot and now has a large blister looking wound that appears to have yellowcoloring to the center. C/o pain. Alert. No distress. D SERVICE SPECIALIST documented in this encounter Plan of Treatment Upcoming Encounters Date Type Department Care Team (Late st Contact Info) Description 11/02/2024 8:15 AM FIELD SERVICE SPECIALIST Office [facility] [place] [place] [address] Dakota Fabian APRN, RECONSTRUCTIVE SURGEON #[address] [place] [address] 11/26/2024 11:30 AM FIELD SERVICE SPECIALIST Office Visit [facility] [place] [address] Maggie Tolentino, PAC [address]2 [place] [address] documented as of this encounter Visit Diagnoses [...] 2) increasing dosage, or 3) changing to SADDLE LINING STITCHER. Given 10/17/2019 6:29 PM FIELD SERVICE SPECIALIST 1 Tablet ibuprofen (MOTRIN) tablet 600 mg 600 mg, Oral, ONCE, 1 dose, On 10/17/19 at 1900 Given 10/17/2019 6:29 PM FIELD SERVICE SPECIALIST 600 mg documented in this encounter Active and Recently Administered Medications Times are shown in FIELD SERVICE SPECIALIST. Scheduled Medication Order 10/15/2019 10/16/2019 10/17/2019 HYDROcodone-acetaminophen [...] 2) increasing dosage, or 3) changing to SADDLE LINING STITCHER. 1828 (Given - Provid er: Monty Stuart RN) ibuprofen (MOTRIN) tablet 600 mg (COMPLETED) 600 mg, Oral, ONCE, 1 dose, On 10/17/19 at 1900 1828 (Given - Provid er: Monty Stuart RN) documented in this encounter Additional Health Concerns Assessment Noted Time PHQ-9 Depression Total Score: 0 09/28/20 19 9:12 AM FIELD SERVICE SPECIALIST documented as of this encounter Care Teams Grease Worker Relationship Specialty Start Date End Date John Méndez MD PCP - General Family Medicine 09/28/19 04/26/24 documented as of this encounter
--- OUTSIDE RECORDS SUMMARY | 2024-10-20 04:29 | XMS_ITS | Encounter Summary ---
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 [...] st Contact Info) Description 11/02/2024 8:15 AM TOUCH UP PAINTER HAND Office Visit [facility] Medical [facility] - Family Medicine [facility] #2 [place] [address] Dakota Fabian, TRADE MARKER, CROP PICKER #[address] [address] 11/26/2024 11:30 AM TOUCH UP PAINTER HAND Office Visit [facility] [place] [address]2 [place] [address] Maggie Tolentino, [facility] [address]2 [place] [address] documented as of this encounter Visit Diagnoses Not on filedocumented in this encounter Additional Health Concerns Assessment Noted Time PHQ-9 Depression Total Score: 0 10/19/19 20 12:31 PM TOUCH UP PAINTER HAND documented as of this encounter Care Teams Record Center Coordinator Relationship Specialty Start Date End Date John Méndez MD PCP - General Family Medicine 09/28/19 04/26/24 documented as of this encounter
--- OUTSIDE RECORDS SUMMARY | 2024-10-20 04:29 | XMS_ITS | Encounter Summary ---
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 Not on file documented as of this encounter Plan of Treatment Upcoming Encounters Date Type Department Care Team (Late st Contact Info) Description 11/02/2024 8:15 AM WASHTUB WORKER Office Visit [facility] #2 [place] [address] Dakota Fabian APRN, DEMAND EQUIPMENT REPAIRER #[address] [address] 11/26/2024 11:30 AM WASHTUB WORKER Office Visit [facility] #2 [place] [address] Maggie Tolentino, PAC [address] [place] [address] documented as of this encounter Visit Diagnoses Not on filedocumented in this encounter Additional Health Concerns Assessment Noted Time PHQ-9 Depression Total Score: 0 10/19/19 20 12:31 PM WASHTUB WORKER documented as of this encounter Care Teams Medical Customer Service Representative Relationship Specialty Start Date End Date John Méndez MD PCP - General Family Medicine 09/28/19 04/26/24 documented as of this encounter
--- OUTSIDE RECORDS SUMMARY | 2024-10-20 04:29 | XMS_ITS | Encounter Summary ---
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 Not on file documented as of this encounter Plan of Treatment Upcoming Encounters Date Type Department Care Team (Late st Contact Info) Description 11/02/2024 8:15 AM DIRECTOR OF COMMUNICATIONS Office Visit [facility] #2 [place] [address] Dakota Fabian APRN, SCALE EXPERT #[address] [address] 11/26/2024 11:30 AM DIRECTOR OF COMMUNICATIONS Office Visit [facility] #2 [place] [address] Maggie Tolentino, PAC [address] [place] [address] documented as of this encounter Visit Diagnoses Not on filedocumented in this encounter Additional Health Concerns Assessment Noted Time PHQ-9 Depression Total Score: 0 10/19/19 20 12:31 PM DIRECTOR OF COMMUNICATIONS documented as of this encounter Care Teams Woodworking Machine Setter Relationship Specialty Start Date End Date John Méndez MD PCP - General Family Medicine 09/28/19 04/26/24 documented as of this encounter
--- OUTSIDE RECORDS SUMMARY | 2024-10-20 04:29 | XMS_ITS | Encounter Summary ---
Author Organization [facility] Address [address] 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 [...] st Contact Info) Description 11/02/2024 8:15 AM JANITOR SUPERVISOR Office Visit [facility] #2 [place] [address] Dakota Fabian APRN, STERILIZER OPERATOR [address] [address] 11/26/2024 11:30 AM JANITOR SUPERVISOR Office Visit [facility] #2 [place] [address] Maggie Tolentino, [facility] #2 [place] [address] documented as of this encounter Visit Diagnoses Not on filedocumented in this encounter Additional Health Concerns Assessment Noted Time PHQ-9 Depression Total Score: 0 10/19/19 20 12:31 PM JANITOR SUPERVISOR documented as of this encounter Care Teams Wire Preparation Worker Relationship Specialty Start Date End Date John Méndez MD PCP - General Family Medicine 09/28/19 04/26/24 documented as of this encounter
--- OUTSIDE RECORDS SUMMARY | 2024-10-20 04:29 | XMS_ITS | Encounter Summary ---
Author Organization [facility] Address [address] 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 pharmacy is only giving her #30 and then 15 days later, they give her #30. Called [facility] pharmacy and pharmacist stated that she thinks [...] Contact Info) Description 11/02/2024 8:15 AM RN DIABETES Office Visit [facility] [place] [facility]2 [place] [address] Dakota Fabian APRN, DISCOTHEQUE DANCER #[address] [address] 11/26/2024 11:30 AM RN DIABETES Office Visit [facility] [place] [address]2 [place] [address] Maggie Tolentino, PAC [address] [place] [address] documented as of this encounter Visit Diagnoses Not on filedocumented in this encounter Additional Health Concerns Infection Onset Date Last Indicated Resolved Time MRSA 03/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
--- OUTSIDE RECORDS SUMMARY | 2024-10-20 04:29 | XMS_ITS | Encounter Summary ---
Author Organization [facility] Address [address] 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 ER MACHINE TENDER documented in this encounter Plan of Treatment Upcoming Encounters Date Type Department Care Team (Late st Contact Info) Description 11/02/2024 8:15 AM MOLDER MACHINE TENDER [place] [facility] [place] [place] [address] Dakota Fabian APRN, [place] #[address] [address] 11/26/2024 11:30 AM MOLDER MACHINE TENDER [place] [facility] [place] [address] Maggie Tolentino, PAC [address] [place] [address] documented as of this encounter Visit Diagnoses Not on filedocumented in this encounter Additional Health Concerns Assessment Noted Time PHQ-9 Depression Total Score: 0 10/19/19 20 12:31 PM MOLDER MACHINE TENDER documented as of this encounter Care Teams Stereoptician Relationship Specialty Start Date End Date John Méndez MD PCP - General Family Medicine 09/28/19 04/26/24 documented as of this encounter
--- OUTSIDE RECORDS SUMMARY | 2024-10-20 04:29 | XMS_ITS | Encounter Summary ---
Author Organization [facility] Address [address] 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 [...] Recent Outpatient Visits 6 days ago Influenza [facility] John Méndez MD 2 weeks ago Acute maxillary sinusitis, recurrence not specified [facility] John Méndez MD 1 month ago Spider bite wound, accidental or unintentional, subsequent encounter [facility] Aylin Juan APN, PIANO AND ORGAN REFINISHER 2 months ago Brown recluse spider bite or sting, accidental or unintentional, subsequent encounter [facility] Aylin Juan APN, PIANO AND ORGAN REFINISHER 2 months ago Acute URI [facility] Dakota Fabian APN, CNP Upcoming Appointments Future Appointments In 1 week John Méndez MD [facility], [facility] Passed - Last BP in normal range BP Readings from Last 1 Encounters: 12/14/19 128/72 Powered by [employer] - 12/20/2019 10:34 AM The requested medication is not on the active medication list. documented in this encounter Plan of Treatment Upcoming Encounters Date Type Department Care Team (Late st Contact Info) Description 11/02/2024 8:15 AM NETWORK/TELECOM ENGINEER Office Visit [facility] Medical Group - Family Medicine - [place] #2 [place] [address] Dakota Fabian APRN, COMMUNITY RELATIONS COORDINATOR #[address] [address] 11/26/2024 11:30 AM NETWORK/TELECOM ENGINEER Office Visit [facility] - [facility] #2 [place] [address] Maggie Tolentino, [facility] #2 [place] [address] documented as of this encounter Visit Diagnoses Diagnosis Wheezing Bronchospasm, acute Acute bronchospasm documented in this encounter Additional Health Concerns Assessment Noted Time PHQ-9 Depression Total Score: 0 10/19/19 20 12:31 PM NETWORK/TELECOM ENGINEER documented as of this encounter Care Teams Dean Of Boys Relationship Specialty Start Date End Date John Méndez MD PCP - General Family Medicine 09/28/19 04/26/24 documented as of this encounter
--- OUTSIDE RECORDS SUMMARY | 2024-10-20 04:29 | XMS_ITS | Encounter Summary ---
Author Organization [facility] Address [address] [facility] 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 * Telephone Encounter [...] if they would like to speak to records management clerk. Did patient request records management clerk? no ??? Patient counseled to remain at [...] Contact Info) Description 11/02/2024 8:15 AM MONITORING ENGINEER Office Visit [facility] #2 [place] [address] Dakota Fabian, RADIO DIVISION OFFICER, SENIOR FINANCIAL REPORTING ACCOUNTANT #[address] [address] 11/26/2024 11:30 AM MONITORING ENGINEER Office Visit [facility] #2 [place] [address] Maggie Tolentino, PAC [address] [place] [address] documented as of this encounter Visit Diagnoses Not on filedocumented in this encounter Additional Health Concerns Assessment Noted Time PHQ-9 Depression Total Score: 0 10/19/19 20 12:31 PM MONITORING ENGINEER documented as of this encounter Care Teams Sail Maker Relationship Specialty Start Date End Date John Méndez MD PCP - General Family Medicine 09/28/19 04/26/24 documented as of this encounter
--- OUTSIDE RECORDS SUMMARY | 2024-10-20 04:29 | XMS_ITS | Encounter Summary ---
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 Not on file documented as of this encounter Plan of Treatment Upcoming Encounters Date Type Department Care Team (Late st Contact Info) Description 11/02/2024 8:15 AM ORAL HYGIENIST Office Visit [facility] #2 [place] [address] Dakota Fabian APRN, DIVORCE MEDIATOR #[address] [address] 11/26/2024 11:30 AM ORAL HYGIENIST Office Visit [facility] #2 [place] [address] Maggie Tolentino, PAC [address] [place] [address] documented as of this encounter Visit Diagnoses Not on filedocumented in this encounter Additional Health Concerns Assessment Noted Time PHQ-9 Depression Total Score: 0 10/19/19 20 12:31 PM ORAL HYGIENIST documented as of this encounter Care Teams Fowl Blood Tester Relationship Specialty Start Date End Date John Méndez MD PCP - General Family Medicine 09/28/19 04/26/24 documented as of this encounter
--- OUTSIDE RECORDS SUMMARY | 2024-10-20 04:29 | XMS_ITS | Encounter Summary ---
Author Organization 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 Not on file documented as of this encounter Plan of Treatment Upcoming Encounters Date Type Department Care Team (Late st Contact Info) Description 11/02/2024 8:15 AM FOOD AND BEVERAGE INTERN Office Visit [facility] [address]2 [place] [address] Dakota Fabian APRN, GRIP WRAPPER #[address] [address] 11/26/2024 11:30 AM FOOD AND BEVERAGE INTERN Office Visit [facility] #2 [place] [address] Maggie Tolentino, PAC [address] [place] [address] documented as of this encounter Visit Diagnoses Not on filedocumented in this encounter Additional Health Concerns Assessment Noted Time PHQ-9 Depression Total Score: 0 09/28/20 9:12 AM FOOD AND BEVERAGE INTERN documented as of this encounter Care Teams Skin Drier Relationship Specialty Start Date End Date John Méndez MD PCP - General Family Medicine 09/28/19 04/26/24 documented as of this encounter
--- OUTSIDE RECORDS SUMMARY | 2024-10-20 04:29 | XMS_ITS | Encounter Summary ---
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 file documented as of this encounter Plan of Treatment Upcoming Encounters Date Type Department Care Team (Late st Contact Info) Description 11/02/2024 8:15 AM SCENERY BUILDER Office [place] [facility] [place] [facility] [place] [address] Dakota Fabian APRN, FULL STACK DEVELOPER #[address] [address] 11/26/2024 11:30 AM SCENERY BUILDER Office Visit [facility] [place] [address] Maggie Tolentino, PAC [address] [place] [address] documented as of this encounter Visit Diagnoses Not on filedocumented in this encounter Additional Health Concerns Assessment Noted Time PHQ-9 Depression Total Score: 0 10/19/19 20 12:31 PM SCENERY BUILDER documented as of this encounter Care Teams Labor And Employment Paralegal Relationship Specialty Start Date End Date John Méndez MD PCP - General Family Medicine 09/28/19 04/26/24 documented as of this encounter
--- OUTSIDE RECORDS SUMMARY | 2024-10-20 04:29 | XMS_ITS | Encounter Summary ---
Author Organization [facility] Address [address] 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 [...] 12/21/2019 02:47 PM Phone (Incoming) Melinda Olmedo [phone] (H) Muriel Herrera cough med Patient states [...] st Contact Info) Description 11/02/2024 8:15 AM SAP GATHERER Office Visit [facility] #2 [place] [address] Dakota Fabian APRN, CYTOGENETICS TECHNOLOGIST #[address] [address] 11/26/2024 11:30 AM SAP GATHERER Office Visit [facility] #2 [place] [address] Maggie Tolentino, PAC [address] [place] [address] documented as of this encounter Visit Diagnoses Not on filedocumented in this encounter Additional Health Concerns Assessment Noted Time PHQ-9 Depression Total Score: 0 10/19/19 20 12:31 PM SAP GATHERER documented as of this encounter Care Teams Quarantine Officer Relationship Specialty Start Date End Date John Méndez MD PCP - General Family Medicine 09/28/19 04/26/24 documented as of this encounter
--- OUTSIDE RECORDS SUMMARY | 2024-10-20 04:29 | XMS_ITS | Encounter Summary ---
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 Not on file documented as of this encounter Plan of Treatment Upcoming Encounters Date Type Department Care Team (Late st Contact Info) Description 11/02/2024 8:15 AM APPLICATION PACKAGING CONSULTANT Office Visit [facility] [address] [place] [address] Dakota Fabian APRN, ASSOCIATE MARKETING MANAGER [address] [address] 11/26/2024 11:30 AM APPLICATION PACKAGING CONSULTANT Office Visit [facility] [address] [place] [address] Maggie Tolentino, PAC [address] [place] [address] documented as of this encounter Visit Diagnoses Not on filedocumented in this encounter Additional Health Concerns Assessment Noted Time PHQ-9 Depression Total Score: 0 10/19/19 20 12:31 PM APPLICATION PACKAGING CONSULTANT documented as of this encounter Care Teams Boiler Mechanic Relationship Specialty Start Date End Date John Méndez MD PCP - General Family Medicine 09/28/19 04/26/24 documented as of this encounter
--- OUTSIDE RECORDS SUMMARY | 2024-10-20 04:29 | XMS_ITS | Encounter Summary ---
Author Organization [facility] Address [address] 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 Not on file Not on file documented as of this encounter Last Filed Vital Signs Vital Sign Reading Time Taken Comments Blood Pressure 138/103 11/20/2019 9:54 PM SYSTEM ANALYST Pulse 119 11/20/2019 9:54 PM SYSTEM ANALYST Temperature 36.9 ??C (98.5 ??F) 11/20/2019 9:53 PM CS T Respiratory Rate 18 11/20/2019 9:54 PM SYSTEM ANALYST Oxygen Saturation 94% 11/20/2019 9:54 PM SYSTEM ANALYST Inhaled Oxygen Concentration - - Weight 90.7 kg (200 lb) 11/20/2019 7:11 PM SYSTEM ANALYST Height 157.5 cm (5' 2 ) 11/20/2019 7:11 PM SYSTEM ANALYST Body Mass Index 36.58 11/20/2019 7:11 PM SYSTEM ANALYST documented in this encounter Discharge Instructions * Discharge Instructions* Tisha Rosario PAC - 11/20/2019 9:49 PM SYSTEM ANALYST Please push fluids and avoid caffeine. Followup with your primary care provider. Return if you haveany worsening symptoms. EM ANALYST * Attachments The following attachments cannot be sent through Care Everywhere. * Urinary Tract Infections in Women (Georgian) documented in this encounter Medications at [...] discharged per ambulatory mode with as responsible republican. TK D/C'ed with Yogesh cath intact. EM ANALYST * Tiffanie Mazariegos RN - 11/20/2019 9:53 PM CST Patient discharged. Discharge instructions and patient educational material reviewed with patient; questions and concerns addressed; patient verbalizes understanding, using teach back. Patient was given 2 prescriptions. Patient discharged per ambulatory mode with self as responsible republican. EM ANALYST * Eliu Méndez MD - 11/20/2019 7:24 [...] file Occupational History ??? 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 Financial resource strain: Not [...] file Gets together: Not on file Attends yazidism service: Not on file Active member of [...] Abnormality Status --------- ------ CBC with Auto Differential[[id number]] Abnormal Final result Please view results for [...] accurate andcomplete. Dr. Méndez, 11/20/19 9:59 PM EM ANALYST * Amelie Angel RN - 11/20/2019 7:12 PM CST Patient presents ambulatory to triage with complaint of right flank pain with nausea and vomiting since 0400 today. Has been unable to drink or eat today. Has history of kidney infections. Alert and oriented x4. Respirations non labored. EM ANALYST documented in this encounter Plan of Treatment Upcoming Encounters Date Type Department Care Team (Late st Contact Info) Description 11/02/2024 8:15 AM SYSTEM ANALYST Office Visit [facility] [address]2 [place] [address] Dakota Fabian APRN, BOBBIN DRIER #[address] [address] 11/26/2024 11:30 AM SYSTEM ANALYST Office Visit [facility] [address] [place] [address] Maggie Tolentino, PAC [address] [place] [address] documented as of this encounter Procedures Procedure Name Priority Date/Time Associated Diagnosis Comments URINALYSIS REFLEX IF INDICATED BY ABNORMAL RESULTS STAT 11/20/2019 9:08 PM SYSTEM ANALYST CULTURE, URINE STAT 11/20/2019 9:08 PM SYSTEM ANALYST CBC WITH AUTO DIFFERENTIAL STAT 11/20/2019 8:14 PM SYSTEM ANALYST LIPASE STAT 11/20/2019 8:14 PM SYSTEM ANALYST CMP (COMPREHENSIVE METABOLIC PANEL) STAT 11/20/2019 8:14 PM SYSTEM ANALYST COMPLETE BLOOD COUNT (CBC) WITH DIFF STAT 11/20/2019 8:14 PM SYSTEM ANALYST documented in this encounter Results * Culture, Urine (11/20/2019 9:08 PM SYSTEM ANALYST) CULTURE RESULTS ENTEROCOCCUS 11/23/2019 7:56 AM SYSTEM ANALYST [facility] CULTURE RESULTS ALSO MIXED GROWTH OF DISTAL URETHRA CONTAMINANTS. 11/23/2019 7:56 AM SYSTEM ANALYST [facility] Urine specimen (specimen) URINE SPECIMEN / Unknown Non-Phlebotomy Collection / Unknown 11/20/2019 9:08 PM SYSTEM ANALYST 11/20/2019 9:12 PM SYSTEM ANALYST Narrative [facility] - 11/23/2019 7:56 AM SYSTEM ANALYST Susceptibility not performed on enterococcus species. ??Due [...] DERABLES Final Result [facility] [address] [address], [place] * (ABNORMAL) URINALYSIS REFLEX IF INDICATED BY ABNORMAL RESULTS (11/20/2019 9:08 PM SYSTEM ANALYST) SPECIFIC GRAVITY 1.015 1.003 - 1.030 11/20/2019 9:27 PM [facility] URINE PH 7.0 5.0 - 9.0 11/20/2019 9:27 PM [facility] WBC ESTERASE 500 /uL(A) Negative 11/20/2019 9:27 PM [facility] NITRITE Negative Negative 11/20/2019 9:27 PM [facility] PROTEIN, RANDOM URINE Negative Negative 11/20/2019 9:27 PM [facility] URINE GLUCOSE, QUAL Negative Negative 11/20/2019 9:27 PM [facility] URINE KETONES Negative Negative 11/20/2019 9:27 PM [facility] UROBILINOGEN Normal Normal mg/dL 11/20/2019 9:27 PM [facility] URINE BILIRUBIN Negative Negative 0 9:27 PM [facility] URINE BLOOD Negative Negative marjorie/ul 11/20/2019 9:27 PM [facility] URINALYSIS COLOR Yellow 11/20/19 20 9:27 PM [facility] URINALYSIS CLARITY Slightly Cloudy 11/20/2019 9:27 PM [facility] WBC (Urine) 21-50(A) Negative, 0-5 /hpf 11/20/2019 9:27 PM [facility] URINE RBC'S 3-5(A) Negative, 0-2 /hpf 11/20/2019 9:27 PM [facility] EPITHELIAL CELLS Moderate amount /lpf 11/20/2019 9:27 PM [facility] BACTERIA, URINE Moderate(A) Negative /hpf 11/20/2019 9:27 PM [facility] URINE MUCOUS Many 11/20/2019 9:27 PM [facility] Urine specimen (specimen) URINE SPECIMEN / Unknown Non-Phlebotomy Collection / Unknown 11/20/2019 9:08 PM SYSTEM ANALYST 11/20/2019 9:12 PM SYSTEM ANALYST us Eliu Méndez MD URINE ORDERABLES Final Re sult [facility] [address] [place] [address] * (ABNORMAL) CBC with Auto Differential (11/20/2019 8:14 PM SYSTEM ANALYST) WBC 9.76 4.00 - 12.00 10(3)/mcL 11/20/2019 8:35 PM SYSTEM ANALYST [facility] RBC 4.51 3.80 - 5.30 10(6)/mcL 11/20/2019 8:35 PM SYSTEM ANALYST [facility] HEMOGLOBIN (HGB) 12.0 12.0 - 15.8 g/dL 11/20/2019 8:35 PM SYSTEM ANALYST [facility] HEMATOCRIT (HCT) 38.3 36.0 - 47.0 % 11/20/2019 8:35 PM SYSTEM ANALYST [facility] MCV 84.9 82.0 - 96.0 fL 11/20/2019 8:35 PM [facility] MCH 26.6 26.0 - 34.0 pg 11/20/2019 8:35 PM [facility] MCHC 31.3 31.0 - 36.0 g/dL 11/20/2019 8:35 PM SYSTEM ANALYST [facility] PLATELET COUNT 317 140 - 440 10(3)/mcL 11/20/2019 8:35 PM SYSTEM ANALYST [facility] RDW 13.9 11.8 - 15.5 % 11/20/2019 8:35 PM [facility] MPV 10.2 9.7 - 12.4 fL 11/20/2019 8:35 PM [facility] NEUTROPHILS 75.6(H) 47.0 - 73.0 % 11/20/2019 8:35 PM [facility] LYMPHOCYTES 15.2(L) 18.0 - 42.0 % 11/20/2019 8:35 PM SYSTEM ANALYST [facility] MONOCYTES 6.3 4.0 - 12.0 % 11/20/2019 8:35 PM SYSTEM ANALYST [facility] EOSINOPHILS 2.5 0.0 - 5.0 % 11/20/2019 8:35 PM SYSTEM ANALYST [facility] BASOPHILS 0.4 0.0 - 1.0 % 11/20/2019 8:35 PM SYSTEM ANALYST [facility] ABSOLUTE NEUTROPHILS 7.39 1.60 - 7.70 10(3)/[facility] 11/20/2019 8:35 PM [facility] ABSOLUTE LYMPHOCYTES 1.48 1.30 - 3.20 10(3)/[facility] 11/20/2019 8:35 PM SYSTEM ANALYST [facility] ABSOLUTE MONOCYTES 0.61 0.20 - 1.00 10(3)/[facility] 11/20/2019 8:35 PM [facility] ABSOLUTE EOSINOPHIL 0.24 0.00 - 0.40 10(3)/[facility] 11/20/2019 8:35 PM [facility] ABSOLUTE BASOPHILS 0.04 0.00 - 0.10 10(3)/[facility] 11/20/2019 8:35 PM [facility] NRBC PER 100 WBC 0 11/20/19 20 8:35 PM [facility] Blood specimen (specimen) Venipuncture / Unknown 11/20/2019 8:14 PM SYSTEM ANALYST 11/20/2019 8:29 PM SYSTEM ANALYST us Eliu Méndez MD HEMATOLOGY ORDERABLES Fin al Result [facility] [address] [place] [address] * (ABNORMAL) Lipase (11/20/2019 8:14 PM SYSTEM ANALYST) LIPASE 10.1(L) 13 - 60 U/L 11/20/2019 9:09 PM SYSTEM ANALYST [facility] Blood specimen (specimen) Venipuncture / Unknown 11/20/2019 8:14 PM SYSTEM ANALYST 11/20/2019 8:29 PM SYSTEM ANALYST Eliu Méndez MD CHEMISTRY ORDERABLES Serene l Result [facility] [address] [place] [address] * (ABNORMAL) CMP (Comprehensive Metabolic Panel) (11/20/2019 8:14 PM SYSTEM ANALYST) SODIUM 137 136 - 144 mmol/L 11/20/2019 9:09 PM [facility] POTASSIUM 3.3(L) 3.5 - 5.1 mmol/L 11/20/2019 9:09 PM [facility] CHLORIDE 98(L) 100 - 110 mmol/L 11/20/2019 9:09 PM [facility] CO2, VENOUS 29 22 - 32 mmol/L 11/20/2019 9:09 PM [facility] ANION GAP 13.3 8.0 - 20.0 mmol/L 11/20/2019 9:09 PM [facility] GLUCOSE 98 70 - 99 mg/dL 11/20/2019 9:09 PM [facility] BUN 11 6 - 20 mg/dL 11/20/2019 9:09 PM [facility] CREATININE, BLOOD 0.54(L) 0.60 - 1.10 mg/dL 11/20/2019 9:09 PM [facility] BUN/CREATININE RATIO 20 12 - 20 ratio 11/20/2019 9:09 PM [facility] TOTAL PROTEIN 7.4 6.0 - 8.3 g/dL 11/20/2019 9:09 PM [facility] ALBUMIN 4.0 3.5 - 5.2 g/dL 11/20/2019 9:09 PM [facility] Comment: The colormetric methods used for the determination of Albumin may lead to falsely elevated test results in patients suffering from renal failure or insufficiency due to interference with other proteins. A/G RATIO 1.2 1.0 - 2.0 11/20/2019 9:09 PM SYSTEM ANALYST [facility] CALCIUM 8.9 8.9 - 10.3 mg/dL 11/20/2019 9:09 PM SYSTEM ANALYST [facility] T BILI 0.4 <=1.2 mg/dL 11/20/2019 9:09 PM SYSTEM ANALYST [facility] SGOT (AST) 24 <=32 U/L 11/20/2019 9:09 PM SYSTEM ANALYST [facility] SGPT (ALT) 26 <=33 U/L 11/20/2019 9:09 PM SYSTEM ANALYST [facility] ALKALINE PHOSPHATASE 86 35 - 105 U/L 11/20/2019 9:09 PM SYSTEM ANALYST [facility] GFR, EST. NONAFRICAN >60 >=60 11/20/2019 9:09 PM SYSTEM ANALYST [facility] GFR, EST. >60 >=60 020 9:09 PM SYSTEM ANALYST [facility] Comment: Creatinine Clearance is the preferred criteria for selecting drug dose adjustments in renally impaired patients. ??The GFR is provided as additional pertinent clinical information. GFR is reported in mL/min/1.73 sq m. Blood specimen (specimen) Venipuncture / Unknown 11/20/2019 8:14 PM SYSTEM ANALYST 11/20/2019 8:29 PM SYSTEM ANALYST Eliu Méndez MD CHEMISTRY ORDERABLES Serene alcantara Result [facility] [address] [place] [address] documented in this encounter Visit Diagnoses Diagnosis Urinary tract infection- Primary Urinary tract infection, site not specified documented in this encounter Administered Medications Inactive Administered Medications - up to 3 most recent administrations Medication Order MAR Action Action Date Dose Rate Site 0.9 % sodium chloride solution at 1,000 mL/hr, Intravenous, ONCE, 1 dose, On 11/20/19 at 2000 New Bag 11/20/2019 8:34 PM SYSTEM ANALYST 2,000 mL 1000 mL/h r ketorolac (TORADOL) injection 30 mg 30 mg, Intravenous, ONCE, 1 dose, On 11/20/19 at 1999 Given 11/20/2019 8:33 PM SYSTEM ANALYST 30 mg Prochlorperazine Edisylate (COMPAZINE) injection 10 mg 10 mg, Intravenous, ONCE, 1 dose, On 11/20/19 at 1999 Given 11/20/2019 8:33 PM SYSTEM ANALYST 10 mg documented in this encounter Active and Recently Administered Medications Times are shown in SYSTEM ANALYST. Scheduled Medication Order 11/18/2019 11/19/2019 11/20/2019 0.9 [...] Total Score: 0 10/19/19 20 12:31 PM SYSTEM ANALYST documented as of this encounter Care Teams Germination Worker Relationship Specialty Start Date End Date John Méndez MD PCP - General Family Medicine 09/28/19 04/26/24 documented as of this encounter
--- OUTSIDE RECORDS SUMMARY | 2024-10-20 04:29 | XMS_ITS | Encounter Summary ---
Author Organization [facility] Address [address] [place] [address] Phone Care Team Providers Care Brick Layer Name Role Phone John Méndez MD Primary Care Provider [phone] Reason for Visit * Reason Comments Fever Patient states that she woke up this morning running a fever, coughing and vomitting. 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 Not on file Not on file documented as of this encounter Last Filed Vital Signs Vital Sign Reading Time Taken Comments Blood Pressure 128/72 12/14/2019 1:04 PM PRODUCT DEVELOPER Pulse 84 12/14/2019 1:04 PM PRODUCT DEVELOPER Temperature 36.3 ??C (97.4 ??F) 12/14/2019 1:04 PM CS T Respiratory Rate 16 12/14/2019 1:04 PM PRODUCT DEVELOPER Oxygen Saturation 92% 12/14/2019 1:04 PM PRODUCT DEVELOPER Inhaled Oxygen Concentration - - Weight 107.3 kg (236 lb 8 oz) 12/14/2019 1:04 PM PRODUCT DEVELOPER Height 157.5 cm (5' 2 ) 12/14/2019 1:04 PM PRODUCT DEVELOPER Body Mass Index 43.26 12/14/2019 1:04 PM PRODUCT DEVELOPER documented in this encounter Progress Notes * Maritza Escalera F - 12/14/2019 1:00 PM CST Melinda [...] been addressed with the patient today: PAP UCT DEVELOPER * Jhon Méndez MD - 12/14/2019 1:00 PM CST [...] file Occupational History ??? 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 Financial resource strain: Not [...] file Gets together: Not on file Attends confucianist service: Not on file Active member of [...] hours prn. - NEBULIZER DEVICE, WITH COMPRESSOR UCT DEVELOPER * Maritza Escalera - 12/14/2019 1:00 PM CST Influenza swab a and b performed on Melinda Olmedo per order of Dr. Méndez. Results entered as negative in computer and given to provider. UCT DEVELOPER documented in this encounter Plan of Treatment Upcoming Encounters Date Type Department Care Team (Late st Contact Info) Description 11/02/2024 8:15 AM PRODUCT DEVELOPER Office Visit [facility] [address] [place] [address] Dakota Fabian APRN, OBSTETRICS NURSE #[address] [address] 11/26/2024 11:30 AM PRODUCT DEVELOPER Office Visit [facility] [address] [place] [address] Maggie Tolentino PAC [address] [place] [address] documented as of this encounter Procedures Procedure Name Priority Date/Time Associated Diagnosis Comments POCT INFLUENZA A & B Routine 12/14/2019 1:41 PM PRODUCT DEVELOPER Influenza documented in this encounter Results * POCT INFLUENZA A & B (12/14/2019 1:41 PM PRODUCT DEVELOPER) POC INFLU A Presumptive negative Group A POC INFLU B Presumptive negative Group B POC INFLUENZA CONTROL [facility] 12/14/2019 1:41 PM PRODUCT DEVELOPER us John Méndez MD POINT OF CARE TESTING (MANUAL) F inal Result documented in this encounter Visit Diagnoses Diagnosis Influenza- Primary Influenza with other respiratory manifestations Mild intermittent asthma with acute exacerbation Unspecified asthma, with exacerbation documented in this encounter Additional Health Concerns Assessment Noted Time PHQ-9 Depression Total Score: 0 10/19/19 20 12:31 PM PRODUCT DEVELOPER documented as of this encounter Care Teams Brick Layer Relationship Specialty Start Date End Date John Méndez MD PCP - General Family Medicine 09/28/19 04/26/24 documented as of this encounter
--- OUTSIDE RECORDS SUMMARY | 2024-10-20 04:29 | XMS_ITS | Encounter Summary ---
Author Organization [facility] Address [address] [place] [address] Phone Care Team Providers Care Consultant [employer]. Vice President [employer] (Ex ) Name Role Phone John Méndez MD Primary Care Provider [phone] Reason for Visit * Reason Comments Cough Patient presents [facility] for a cough and congestion. Non productive cough started about 3 days ago states pt. Encounter Details Date Type Department Care Team (Late st Contact Info) Description 12/02/2019 10:00 AM CUT ORDER HAND 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 Not on file documented as of this encounter Last Filed Vital Signs Vital Sign Reading Time Taken Comments Blood Pressure 136/98 12/02/2019 9:55 AM CUT ORDER HAND Pulse 76 12/02/2019 9:55 AM CUT ORDER HAND Temperature 37.2 ??C (99 ??F) 12/02/2019 9:55 AM CUT ORDER HAND Respiratory Rate 16 12/02/2019 9:55 AM CUT ORDER HAND Oxygen Saturation 98% 12/02/2019 9:55 AM CUT ORDER HAND Inhaled Oxygen Concentration - - Weight 106.2 kg (234 lb 1.6 oz) 12/02/2019 9:55 AM CUT ORDER HAND Height 157.5 cm (5' 2 ) 12/02/2019 9:55 AM CUT ORDER HAND Body Mass Index 42.82 12/02/2019 9:55 AM CUT ORDER HAND documented in this encounter Progress Notes * [...] been addressed with the patient today: PAP. ORDER HAND * John Méndez MD - 12/02/2019 10:00 [...] file Occupational History ??? 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 Financial resource strain: Not [...] file Gets together: Not on file Attends congregational service: Not on file Active member of [...] times daily. Dispense: 270 Tab; Refill: 3 ORDER HAND documented in this encounter Plan of Treatment Upcoming Encounters Date Type Department Care Team (Late st Contact Info) Description 11/02/2024 8:15 AM CUT ORDER HAND Office Visit [facility] - Family Medicine [facility] #2 [place] [address] Dakota Fabian, PACKAGE CLERK, EDGE GRINDER #[address] [address] 11/26/2024 11:30 AM CUT ORDER HAND Office Visit [facility] - [place] [address] [facility] [place] [address] Maggie Tolentino, PAC [address] [place] [address] Scheduled Orders Name Type Priority Associated Diagnoses [...] Total Score: 0 10/19/19 20 12:31 PM CUT ORDER HAND documented as of this encounter Care Teams Consultant [employer]. Vice President [employer] (Ex ) Relationship Specialty Start Date End Date John Méndez MD PCP - General Family Medicine 09/28/19 04/26/24 documented as of this encounter
--- OUTSIDE RECORDS SUMMARY | 2024-10-20 04:29 | XMS_ITS | Encounter Summary ---
Author Organization [facility] Address [address] 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 on file Not on file documented as of this encounter Last Filed Vital Signs Vital Sign Reading Time Taken Comments Blood Pressure 130/90 11/02/2019 8:25 AM ADVISORY APPLICATION DEVELOPER Pulse 58 11/02/2019 8:25 AM ADVISORY APPLICATION DEVELOPER Temperature 36.3 ??C (97.3 ??F) 11/02/2019 8:25 AM CS T Respiratory Rate 16 11/02/2019 8:2 5 AM ADVISORY APPLICATION DEVELOPER Oxygen Saturation 99% 11/02/2019 8:25 AM ADVISORY APPLICATION DEVELOPER Inhaled Oxygen Concentration - - Weight 106.8 kg (235 lb 6.4 oz) 11/02/2019 8:25 AM ADVISORY APPLICATION DEVELOPER Height 157.5 cm (5' 2 ) 11/02/2019 8:25 AM ADVISORY APPLICATION DEVELOPER Body Mass Index 43.06 11/02/2019 8:25 AM ADVISORY APPLICATION DEVELOPER documented in this encounter Progress Notes [...] the patient today: Flu and pap smear SORY APPLICATION DEVELOPER * Aylin Juan APN, MEDICAL CORPS OFFICER - 11/02/2019 8:30 AM CST Images from [...] she refer receivedher influenza immunization at the [facility] in July. Will attempt to obtain that [...] given to the patient. Patient (or patient hostess party sales representative) demonstrates verbal understanding of instructions [...] additions, deletions and changes made as appropriate. SORY APPLICATION DEVELOPER documented in this encounter Plan of Treatment Upcoming Encounters Date Type Department Care Team (Late st Contact Info) Description 11/02/2024 8:15 AM ADVISORY APPLICATION DEVELOPER Office Visit [facility] [address] [place] [address] Dakota Fabian APRN, MIGUEL ANGEL #[address] [address] 11/26/2024 11:30 AM ADVISORY APPLICATION DEVELOPER Office Visit [facility] [address] [place] [address] Maggie Tolentino PAC [address] [place] [address] documented as of this encounter Visit Diagnoses Diagnosis Spider bite wound, accidental or unintentional, subsequent encounter- Primary documented in this encounter Additional Health Concerns Assessment Noted Time PHQ-9 Depression Total Score: 0 10/19/19 12:31 PM ADVISORY APPLICATION DEVELOPER documented as of this encounter Care Teams Gun Welder Relationship Specialty Start Date End Date John Méndez MD PCP - General Family Medicine 09/28/19 04/26/24 documented as of this encounter
--- OUTSIDE RECORDS SUMMARY | 2024-10-20 04:29 | XMS_ITS | Encounter Summary ---
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 file [...] st Contact Info) Description 11/02/2024 8:15 AM CUSTOMS PATROL OFFICER Office Visit [facility] Medical [facility] - Family Medicine [facility] [address] [place] [address] Dakota Fabian, REPORTS ANALYSIS MANAGER, LEAD PRESSMAN [address] [address] 11/26/2024 11:30 AM CUSTOMS PATROL OFFICER Office Visit [facility] - [facility] Medicine - [place] [address] [place] [address] Maggie Tolentino, [facility] [address]2 [place] [address] documented as of this encounter Visit Diagnoses Not on filedocumented in this encounter Additional Health Concerns Assessment Noted Time PHQ-9 Depression Total Score: 0 10/19/19 20 12:31 PM CUSTOMS PATROL OFFICER documented as of this encounter Care Teams Clutch Specialist Relationship Specialty Start Date End Date John Méndez MD PCP - General Family Medicine 09/28/19 04/26/24 documented as of this encounter
--- OUTSIDE RECORDS SUMMARY | 2024-10-20 04:29 | XMS_ITS | Encounter Summary ---
Author Organization [facility] Address [address] 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 Not on file [...] st Contact Info) Description 11/02/2024 8:15 AM ALLIED HEALTH PROFESSIONAL Office Visit [facility] [address]2 [place] [address] Dakota Fabian APRN, IMPRESSION PRINTER #[address] [address] 11/26/2024 11:30 AM ALLIED HEALTH PROFESSIONAL Office Visit [facility] #2 [facility] [place] [address] Maggie Tolentino, PAC [address] [place] [address] documented as of this encounter Visit Diagnoses Not on filedocumented in this encounter Additional Health Concerns Assessment Noted Time PHQ-9 Depression Total Score: 0 10/19/19 20 12:31 PM ALLIED HEALTH PROFESSIONAL documented as of this encounter Care Teams Head Automatic Sawyer Relationship Specialty Start Date End Date John Méndez MD PCP - General Family Medicine 09/28/19 04/26/24 documented as of this encounter
--- OUTSIDE RECORDS SUMMARY | 2024-10-20 04:29 | XMS_ITS | Encounter Summary ---
Author Organization [facility] Address [address] [facility] 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 Voiced understanding. States that she did not ask for refill, pharmacy did. COORDINATOR * Telephone Encounter - John Méndez MD - 11/08/2019 6:19 PM CST I just filled this one week ago. No way she can use 90 tabs in one week. She is taking this way toomuch if she is. This is to be for one month. COORDINATOR * Telephone Encounter - Tisha Kingsley RN - 11/08/2019 2:20 PM SPA COORDINATOR Requested Prescriptions Pending Prescriptions Disp Refills acetaminophen-codeine [...] bite wound, accidental or unintentional, subsequent encounter [facility] Aylin Juan NUCLEAR MONITORING TECHNICIAN, MINK FARMER 2 weeks ago Brown recluse spider bite or sting, accidental or unintentional, subsequent encounter [facility] Aylin Juan APN, MINK FARMER 3 weeks ago Acute URI [facility] Dakota Fabian, NUCLEAR MONITORING TECHNICIAN, MANAGER FUND 1 month ago Sacroiliac joint dysfunction of both sides [facility] John Méndez MD Upcoming Appointments Future Appointments In 1 month John Méndez MD [facility], [facility] COORDINATOR documented in this encounter Plan of Treatment Upcoming Encounters Date Type Department Care Team (Late st Contact Info) Description 11/02/2024 8:15 AM SPA COORDINATOR Office Visit [facility] [address]2 [place] [address] Dakota Fabian APRN, MANAGER FUND #[address] [address] 11/26/2024 11:30 AM SPA COORDINATOR Office Visit [facility] [address] [place] [address] Maggie Tolentino, PAC [address] [place] [address] documented as of this encounter Visit Diagnoses Not on filedocumented in this encounter Additional Health Concerns Assessment Noted Time PHQ-9 Depression Total Score: 0 10/19/19 20 12:31 PM SPA COORDINATOR documented as of this encounter Care Teams Crown And Bridge Technician Relationship Specialty Start Date End Date John Méndez MD PCP - General Family Medicine 09/28/19 04/26/24 documented as of this encounter
--- OUTSIDE RECORDS SUMMARY | 2024-10-20 04:29 | XMS_ITS | Encounter Summary ---
Author Organization [facility] Address [address] 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 Not on file Not [...] st Contact Info) Description 11/02/2024 8:15 AM BILLING DEPARTMENT SUPERVISOR Office Visit [facility] #2 [place] [address] Dakota Fabian APRN, STOCK PITCHER #[address] [address] 11/26/2024 11:30 AM BILLING DEPARTMENT SUPERVISOR Office Visit [facility] [address]2 [place] [address] Maggie Tolentino, PAC [address] [place] [address] documented as of this encounter Visit Diagnoses Not on filedocumented in this encounter Additional Health Concerns Assessment Noted Time PHQ-9 Depression Total Score: 0 10/19/19 20 12:31 PM BILLING DEPARTMENT SUPERVISOR documented as of this encounter Care Teams Retort Press Operator Relationship Specialty Start Date End Date John Méndez MD PCP - General Family Medicine 09/28/19 04/26/24 documented as of this encounter
--- OUTSIDE RECORDS SUMMARY | 2024-10-20 04:29 | XMS_ITS | Encounter Summary ---
Author Organization [facility] Address [address] [facility] 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 on file Not on file documented as of this encounter Miscellaneous Notes * Telephone Encounter - Tisha Kingsley RN - 11/25/2019 1:39 PM CORRUGATED FASTENER DRIVER Requested Prescriptions Pending Prescriptions Disp Refills acetaminophen-codeine [...] bite wound, accidental or unintentional, subsequent encounter [facility] Aylin Juan, SOUND EFFECTS MANAGER, HIGH SCHOOL SCIENCE TUTOR 1 month ago Brown recluse spider bite or sting, accidental or unintentional, subsequent encounter [facility] Aylin Juan, SOUND EFFECTS MANAGER, HIGH SCHOOL SCIENCE TUTOR 1 month ago Acute URI [facility] Dakota Fabian, [place], EMERGENCY OPERATOR 1 month ago Sacroiliac joint dysfunction of both sides [facility] John Méndez MD Upcoming Appointments Future Appointments In 1 month John Méndez MD [facility], [facility] [employer] - 11/25/2019 1:39 PM Information pending UGATED FASTENER DRIVER documented in this encounter Plan of Treatment Upcoming Encounters Date Type Department Care Team (Late st Contact Info) Description 11/02/2024 8:15 AM CORRUGATED FASTENER DRIVER Office Visit [facility] [address]2 [place] [address] Dakota Fabian APRN, EMERGENCY OPERATOR #[address] [address] 11/26/2024 11:30 AM CORRUGATED FASTENER DRIVER Office Visit [facility] [address] [place] [address] Maggie Tolentino PAC [address] [place] [address] documented as of this encounter Visit Diagnoses Not on filedocumented in this encounter Additional Health Concerns Assessment Noted Time PHQ-9 Depression Total Score: 0 10/19/19 20 12:31 PM CORRUGATED FASTENER DRIVER documented as of this encounter Care Teams Lacquer Pin Press Operator Relationship Specialty Start Date End Date John Méndez MD PCP - General Family Medicine 09/28/19 04/26/24 documented as of this encounter
--- OUTSIDE RECORDS SUMMARY | 2024-10-20 04:29 | XMS_ITS | Encounter Summary ---
Author Organization [facility] Address [address] 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 on file [...] st Contact Info) Description 11/02/2024 8:15 AM BRICK KILN WORKER Office Visit [facility] #2 [place] [address] Dakota Fabian APRN, DENTAL SCHEDULER #[address] [address] 11/26/2024 11:30 AM BRICK KILN WORKER Office Visit [facility] #2 [place] [address] Maggie Tolentino, PAC [address] [place] [address] documented as of this encounter Visit Diagnoses Not on filedocumented in this encounter Additional Health Concerns Assessment Noted Time PHQ-9 Depression Total Score: 0 10/19/19 20 12:31 PM BRICK KILN WORKER documented as of this encounter Care Teams Environmental Health Nurse Relationship Specialty Start Date End Date Julisa Zuluaga MD PCP - General Family Medicine 09/28/19 04/26/24 documented as of this encounter
--- OUTSIDE RECORDS SUMMARY | 2024-10-20 04:32 | XMS_ITS | Encounter Summary ---
Author Organization [facility] Address [address] [place] [address] Care Team Providers Care Retail Pharmacy Merchandiser Name Role Phone Dakota Fabian MANIPULATIVE THERAPY SPECIALIST Primary Care Provider Reason for Visit * Reason Comments Eye Problem Encounter Details Date Type Department Care Team (Late st Contact Info) Description 10/02/2024 12:27 PM CLOUD SUBJECT MATTER EXPERT - 10/02/2024 1:15 PM CLOUD SUBJECT MATTER EXPERT Emergency [facility] Emergency Department [address] [place] [address] Acute conjunctivitis of right eye, unspecified acute [...] on file Legal Sex Female 2:14 AM CLOUD SUBJECT MATTER EXPERT Gender Identity Not on file Sexual Orientation Not on file documented as of this encounter Last Filed Vital Signs Vital Sign Reading Time Taken Comments Blood Pressure 142/97 10/02/2024 12:25 PM CLOUD SUBJECT MATTER EXPERT Pulse 83 10/02/2024 12:25 PM CLOUD SUBJECT MATTER EXPERT Temperature 36.7 ??C (98.1 ??F) 10/02/2024 12:[address] Respiratory Rate 17 10/02/2024 12:25 PM CLOUD SUBJECT MATTER EXPERT Oxygen Saturation 100% 10/02/2024 12:25 PM CLOUD SUBJECT MATTER EXPERT Inhaled Oxygen Concentration - - Weight 90.7 kg (200 lb) 10/02/2024 12:25 PM CLOUD SUBJECT MATTER EXPERT Height - - Body Mass Index 36.58 08/14/2024 6:04 PM CDT documented in this encounter Discharge Instructions * Attachments The following attachments cannot be sent through Care Everywhere. * Conjunctivitis, Nonspecific (Sinhala) documented in this encounter Medications at Time [...] aggravated by blinking. History provided by: Patient senior caregiver used: No Patient History: Patient Active Problem [...] PCP p.r.n.. Given contact information for local perishable freight inspector for persistent or worsening signs/symptoms. 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 Pt has right eye redness. Pt statesit gets crusty. D SUBJECT MATTER EXPERT documented in this encounter Plan of Treatment Not on file documented as of this encounter Visit Diagnoses Diagnosis Acute conjunctivitis of right eye, unspecified acute conjunctivitis type- Primary Acute conjunctivitis of right eye documented in this encounter Care Teams Retail Pharmacy Merchandiser Relationship Specialty Start Date End Date Dakota Fabian NP [address] [place] [id number] PCP - General Nurse Practitioner 10/02/24 documented as of this encounter
--- OUTSIDE RECORDS SUMMARY | 2024-10-20 04:32 | XMS_ITS | Clinical Summary ---
Author Organization [facility] Address [address] [place] [address] Care Team Providers Care Progressive Die Maker Name Role Phone Dakota Fabian NP Primary [...] Department Care Team Description 10/16/2024 3:45 PM MANAGER DISTRIBUTION Office Visit [facility] Medical [facility]ient Care at [address] [address] Va Garces NP Strep pharyngitis (Primary Dx); Cough, unspecified type 10/02/2024 12:27 PM MANAGER DISTRIBUTION - 10/02/2024 1:15 PM MANAGER DISTRIBUTION Emergency [facility] Emergency Department [address] [place] [address] Acute conjunctivitis of right eye, unspecified acute conjunctivitis type (Primary Dx) Discharge Disposition: Discharge to home or self care 08/14/2024 6:15 PM CDT Office Visit [facility] Convenient Care at [address] [place] [address] Thelma Covarrubias NP Strep pharyngitis [...] on file Legal Sex Female 2:14 AM MANAGER DISTRIBUTION Gender Identity Not on file Sexual Orientation Not on file Obstetrics History Last Filed Vital Signs Vital Sign Reading Time Taken Comments Blood Pressure 142/84 10/16/2024 3:24 PM MANAGER DISTRIBUTION Pulse 72 10/16/2024 3:24 PM MANAGER DISTRIBUTION Temperature 36.8 ??C (98.2 ??F) 10/16/2024 3:24 PM CS T Respiratory Rate 18 10/16/2024 3:24 PM MANAGER DISTRIBUTION Oxygen Saturation 97% 10/16/2024 3:24 PM MANAGER DISTRIBUTION Inhaled Oxygen Concentration - - Weight 98.3 kg (216 lb 11.2 oz) 10/16/2024 3:24 PM MANAGER DISTRIBUTION Height 157.5 cm (5' 2 ) 08/14/2024 [...] A/B, COVID-19 ANTIGEN Routine 10/16/2024 3:55 PM MANAGER DISTRIBUTION Cough, unspecified type POCT RAPID STREP Routine 10/16/2024 3:44 PM MANAGER DISTRIBUTION Cough, unspecified type POCT RAPID STREP Routine 08/14/2024 6:15 PM CDT Strep pharyngitis from Last 3 Months Results * POC Influenza A/B, COVID-19 antigen (10/16/2024 3:55 PM MANAGER DISTRIBUTION) Pathologist [facility] Influenza A Ag, POC Negative Negative [facility] Influenza B Ag, POC Negative Negative [facility] COVID-19 Ag POC Presumptive Negative Presumptive Negative, Invalid [facility] Nasal 10/16/2024 3:55 PM MANAGER DISTRIBUTION Va Garces INCLINOMETER TESTER POINT OF CARE TEST OR DERABLES Final Result [address] [address] * (ABNORMAL) POCT rapid strep A (10/16/2024 3:44 PM MANAGER DISTRIBUTION) Rapid Strep A, POC Positive(A ) Negative Swab 10/16/2024 3:44 PM MANAGER DISTRIBUTION Va Garces INCLINOMETER TESTER POINT OF CARE TEST OR DERABLES Final Result * (ABNORMAL) POCT rapid strep A (08/14/2024 6:15 PM CDT) Rapid Strep A, POC Positive(A ) Negative Swab 08/14/2024 6:15 PM CDT Thelma Covarrubias NP POINT OF CARE TEST ORDER LATRICE Final Result from Last 3 Months Insurance [facility] Care Teams Progressive Die Maker Relationship Specialty Start Date End Date Dakota Fabian NP 2 [facility] [address] [address] PCP - General Nurse Practitioner 10/02/24
--- OUTSIDE RECORDS SUMMARY | 2024-10-20 04:32 | XMS_ITS | Referral Summary ---
Author Organization [facility] Address 1 [place] [address] Care Team Providers Care Customer Support Associate Name Role Phone Dakota Fabian NP Primary Care Provider Encounters Date Type Department Care Team Description 10/16/2024 3:45 PM SR COMMUNITY MANAGER Office Visit [facility] Convenient Care at [address] [address] Va Garces, ANOOP Strep pharyngitis (Primary Dx); Cough, unspecified type 10/02/2024 12:27 PM SR COMMUNITY MANAGER - 10/02/2024 1:15 PM SR COMMUNITY MANAGER Emergency [facility] Emergency Department 1 [place] [address] Acute conjunctivitis of right eye, unspecified acute conjunctivitis type (Primary Dx) Discharge Disposition: Discharge to home or self care 08/14/2024 6:15 PM CDT Office Visit [facility] Convenient Care at [address] [address] Thelma Covarrubias, ANOOP Strep pharyngitis [...] on file Legal Sex Female 2:14 AM SR COMMUNITY MANAGER Gender Identity Not on file Sexual Orientation Not on file Last Filed Vital Signs Vital Sign Reading Time Taken Comments Blood Pressure 142/84 10/16/2024 3:24 PM SR COMMUNITY MANAGER Pulse 72 10/16/2024 3:24 PM SR COMMUNITY MANAGER Temperature 36.8 ??C (98.2 ??F) 10/16/2024 3:24 PM CS T Respiratory Rate 18 10/16/2024 3:24 PM SR COMMUNITY MANAGER Oxygen Saturation 97% 10/16/2024 3:24 PM SR COMMUNITY MANAGER Inhaled Oxygen Concentration - - Weight 98.3 kg (216 lb 11.2 oz) 10/16/2024 3:24 PM SR COMMUNITY MANAGER Height 157.5 cm (5' 2 ) 08/14/2024 6:04 PM CDT Body Mass Index 39.63 08/14/2024 6:04 PM CDT Plan of Treatment Not on file Procedures Procedure Name Priority Date/Time Associated Diagnosis Comments POC INFLUENZA A/B, COVID-19 ANTIGEN Routine 10/16/2024 3:55 PM SR COMMUNITY MANAGER Cough, unspecified type POCT RAPID STREP Routine 10/16/2024 3:44 PM SR COMMUNITY MANAGER Cough, unspecified type POCT RAPID STREP Routine 08/14/2024 6:15 PM CDT Strep pharyngitis from Last 3 Months Results * POC Influenza A/B, COVID-19 antigen (10/16/2024 3:55 PM SR COMMUNITY MANAGER) Pathologist [facility] Influenza A Ag, POC Negative Negative [facility] Influenza B Ag, POC Negative Negative [facility] COVID-19 Ag POC Presumptive Negative Presumptive Negative, Invalid [facility] Nasal 10/16/2024 3:55 PM SR COMMUNITY MANAGER Va Garces CONVERSION DEVELOPER POINT OF CARE TEST OR DERABLES Final Result [facility] [address] [address] * (ABNORMAL) POCT rapid strep A (10/16/2024 3:44 PM SR COMMUNITY MANAGER) Pathologist [facility] Rapid Strep A, POC Positive(A ) Negative Swab 10/16/2024 3:44 PM SR COMMUNITY MANAGER Va Garces CONVERSION DEVELOPER POINT OF CARE TEST OR DERABLES Final Result * (ABNORMAL) POCT rapid strep A (08/14/2024 6:15 PM CDT) Pathologist [facility] Rapid Strep A, POC Positive(A ) Negative Swab 08/14/2024 6:15 PM CDT Thelma Covarrubias CONVERSION DEVELOPER POINT OF CARE TEST ORDER LATRICE Final Result from Last 3 Months Insurance [facility] Care Teams Customer Support Associate Relationship Specialty Start Date End Date Dakota Fabian NP [address] [place] [address] [address] PCP - General Nurse Practitioner 10/02/24
--- OUTSIDE RECORDS SUMMARY | 2024-10-20 04:33 | XMS_ITS | Encounter Summary ---
Author Organization [facility] Address [address] [place] [address] Care Team Providers Care Textile Cutting Machine Operator Name Role Phone Clary Xavier MD Primary Care Provider [phone] Encounter Details Date Type Department Care Team (Late st Contact Info) Description 09/02/2016 7:55 AM CYTOPATHOLOGIST - 09/02/2016 9:06 AM CYTOPATHOLOGIST Hospital Encounter [facility] Kush Faustin MD 1 [facility] [place] 1 [place] [address] Cutaneous abscess of right upper extremity Social History Tobacco Use Types Packs/Day Years Used Date Smoking Tobacco: Never Alcohol Use Standard Drinks/Week Comments No 0 (1 standard drink = 0.6 oz pur e alcohol) Comments Unknown Sex and Gender Information Value Date Recorded Sex Assigned at Not on file Legal Sex Female 2:14 AM CYTOPATHOLOGIST Gender Identity Not on file Sexual Orientation [...] extremity documented in this encounter Care Teams Textile Cutting Machine Operator Relationship Specialty Start Date End Date Clary Xavier MD [address] [place] [address] PCP - General 08/21/12 02/04/17 documented as of this encounter
--- OUTSIDE RECORDS SUMMARY | 2024-10-20 04:33 | XMS_ITS | Encounter Summary ---
Author Organization [facility] Address [address] [place] [address] Care Team Providers Care Audio Experience Expert Name Role Phone No, Physician Primary Care Provider [phone] Encounter Details Date Type Department Care Team (Late st Contact Info) Description 06/15/2017 8:33 PM CDT - 06/16/2017 6:27 PM CDT Hospital Encounter [address] [phone] Jose Verdugo MD [address] [facility] 6A/6B[address] [place] [address] Discharge Disposition: Discharge to home or self care Social History Tobacco Use Types Packs/Day Years Used Date Smoking Tobacco: Never Smokeless Tobacco: Never Alcohol Use Standard Drinks/Week Comments No 0 (1 standard drink = 0.6 oz pur e alcohol) Comments Unknown Sex and Gender Information Value Date Recorded Sex Assigned at Not on file 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 FINAL REPORT ACC# ??Date Time ??Exam [id number] Jun 16, 2017 15:01:00 62108 Ankle Complt. min 3 views R [id number] Jun 16, 2017 15:01:00 96367 Ankle Complt. min 3 views R [id number] Jun 16, 2017 15:01:00 [id number] Ankle 2 views (red serv) R EXAMINATION: [...] BRENDA BAIN M.D. on Jun ??2016 ??6:27A [id number] BAIN M.D. FINAL REPORT Attending: ??CLINTON, ??JOSE Requesting: ??DEWEY, ??ANAND Requesting Fax: ?? Attending Fax: ?? Attending ID: ??[id number] Requesting ID: ??[id number] Report To 1 ID: ??[id number] ? Report To 1 Name: ??, ?? Report To 1 FAX: ?? NextGen Order #: ?? Procedure Note Miscellaneous, Not In File - 08/11/2017 BRENDA BAIN M.D. FINAL REPORT ACC# Date Time Exam [id number] Jun 16, 2017 15:01:00 32983 Ankle Complt. min 3 views R [id number] Jun 16, 2017 15:01:00 61835 Ankle Complt. min 3 views R [id number] Jun 16, 2017 15:01:00 [id number] Ankle 2 views (red serv) R EXAMINATION: [...] BAIN M.D. on Jun 17 2017 6:27A [id number] BAIN M.D. FINAL REPORT Attending: JOSE VERDUGO Requesting: ANAND MCCABE Requesting Fax: Attending Fax: Attending ID: [id number] Requesting ID: [id number] Report To 1 ID: [id number] Report To 1 Name: , Report To 1 FAX: NextGen Order #: Anand Mccabe MD IMG XR PROCEDURES Edit ed Result - Final * XR Ankle 3+ Vw (06/16/2017 8:01 PM CDT) Anatomical Region Laterality Modality N/A Radiographic Dagmar ging 06/16/2017 8:01 PM CDT Narrative 06/16/2017 8:01 PM CDT BRENDA BAIN M.D. FINAL REPORT ACC# ??Date Time ??Exam [id number] Jun 16, 2017 15:01:00 38428 Ankle Complt. min 3 views R [id number] Jun 16, 2017 15:01:00 73781 Ankle Complt. min 3 views R [id number] Jun 16, 2017 15:01:00 [id number] Ankle 2 views (red serv) R EXAMINATION: [...] BRENDA BAIN M.D. on Jun ??2016 ??6:27A [id number] BAIN M.D. FINAL REPORT Attending: ??CLINTON, ??JOSE Requesting: ??DEWEY, ??ANAND Requesting Fax: ?? Attending Fax: ?? Attending ID: ??[id number] Requesting ID: ??[id number] Report To 1 ID: ??[id number] ? Report To 1 Name: ??, ?? Report To 1 FAX: ?? NextGen Order #: ?? Procedure Note Miscellaneous, Not In File - 08/11/2017 BRENDA BAIN M.D. FINAL REPORT ACC# Date Time Exam [id number] Jun 16, 2017 15:01:00 35756 Ankle Complt. min 3 views R [id number] Jun 16, 2017 15:01:00 16429 Ankle Complt. min 3 views R [id number] Jun 16, 2017 15:01:00 [id number] Ankle 2 views (red serv) R EXAMINATION: [...] BAIN M.D. on Jun 17 2017 6:27A [id number] BAIN M.D. FINAL REPORT Attending: JOSE VERDUGO Requesting: ANAND MCCABE Requesting Fax: Attending Fax: Attending ID: [id number] Requesting ID: [id number] Report To 1 ID: [id number] Report To 1 Name: , Report To 1 FAX: NextGen Order #: us Anand Mccabe MD IMG XR PROCEDURES Edit ed Result - Final * XR Ankle 3+ Vw (06/16/2017 8:01 PM CDT) Anatomical Region Laterality Modality N/A Radiographic Dagmar ging 06/16/2017 8:01 PM CDT Narrative 06/16/2017 8:01 PM CDT BRENDA BAIN M.D. FINAL REPORT ACC# ??Date Time ??Exam [id number] Jun 16, 2017 15:01:00 39558 Ankle Complt. min 3 views R [id number] Jun 16, 2017 15:01:00 48566 Ankle Complt. min 3 views R [id number] Jun 16, 2017 15:01:00 [id number] Ankle 2 views (red serv) R EXAMINATION: [...] BRENDA BAIN M.D. on Jun ??2016 ??6:27A [id number] BAIN M.D. FINAL REPORT Attending: ??CLINTON, ??JOSE Requesting: ??DEWEY, ??ANAND Requesting Fax: ?? Attending Fax: ?? Attending ID: ??[id number] Requesting ID: ??[id number] Report To 1 ID: ??[id number] ? Report To 1 Name: ??, ?? Report To 1 FAX: ?? NextGen Order #: ?? Procedure Note Miscellaneous, Not In File - 08/11/2017 BRENDA BAIN M.D. FINAL REPORT ACC# Date Time Exam [id number] Jun 16, 2017 15:01:00 32501 Ankle Complt. min 3 views R [id number] Jun 16, 2017 15:01:00 42292 Ankle Complt. min 3 views R [id number] Jun 16, 2017 15:01:00 [id number] Ankle 2 views (red serv) R EXAMINATION: [...] BAIN M.D. on Jun 17 2017 6:27A [id number] BAIN M.D. FINAL REPORT Attending: JOSE VERDUGO Requesting: ANAND MCCABE Requesting Fax: Attending Fax: Attending ID: [id number] Requesting ID: [id number] Report To 1 ID: [id number] Report To 1 Name: , Report To 1 FAX: NextGen Order #: us Anand Mccabe MD IMG XR PROCEDURES Edit ed Result - Final * HCG, urine, qualitative (06/16/2017 7:40 AM CDT) HCG, ur Negative [facility] Urine 06/16/2017 7:40 AM CDT 06/16/2017 9:08 AM CDT us Dameon Tinajero MD LAB URINE ORDERABLES Serene alcantara Result [facility] Department [place] [address] * Urinalysis, microscopic only (06/16/2017 7:40 AM CDT) RBC, ur 3 0 - 3 /HPF [facility] WBC, ur 2 0 - 5 /HPF [facility] Bacteria, ur Trace Trace [facility] Epithelial cells, renal, ur 0 0 - 0 /HPF [facility] Epithelial cells, squamous, ur 11 /LPF [facility] Mucus, ur Small /HPF [facility] Urine 06/16/2017 7:40 AM CDT 06/16/2017 8:40 AM CDT us Dameon Tinajero MD LAB URINE ORDERABLES Serene l Result Performing Organization Address [facility] Co de Phone Number [facility] Department [place] [address] * (ABNORMAL) Urinalysis reflex to microscopic (06/16/2017 7:40 AM CDT) Color, ur Yellow Yellow [facility] Clarity, ur Clear Clear [facility] Specific gravity, ur 1.016 1.003 - 1.030 [facility] pH, ur 5.0 5.0 - 8.[address] [facility] Albumin, ur Negative Trace [facility] Glucose, ur ql Negative Negative [facility] Ketones, ur Negative Negative [facility] Bilirubin, ur Negative Negative [facility] Blood, ur Negative Negative [facility] Urobilinogen, ur <2.0 <2.0 mg/dL [facility] Nitrites, ur Negative Negative [facility] Leukocyte esterase, ur 2+(A) Negative [facility] Urine 06/16/2017 7:40 AM CDT 06/16/2017 8:40 AM CDT us Dameon Tinajero MD LAB URINE ORDERABLES Serene l Result Performing Organization Address [facility] Co de Phone Number [facility] Department [place] [address] * CT Lower Extremity WO Contrast (06/16/2017 6:51 AM CDT) Anatomical Region Laterality Modality N/A Computed Tomogra phy 06/16/2017 6:51 AM CDT Narrative 06/16/2017 6:51 AM CDT EMILY DUENAS M.D. RUBA GILLIAM M.D. FINAL REPORT The radiology attending physician has personally reviewed this study, and has reviewed and/or edited this written report and agrees with it. ACC# ??Date Time ??Exam [id number] Jun 16, 2017 01:51:[address] Ankle/Hindfoot wo con R ACC# ??Date Time ??Exam [id number] Jun 16, 2017 01:51:[address] Ankle/Hindfoot wo con R EXAMINATION: ?CT [...] DUENAS M.D. on Jun ?? 2017 ??7:41A [id number] RAI M.D. FINAL REPORT The radiology attending physician has personally reviewed this study, and has reviewed and/or edited this written report and agrees with it. Attending: ??CLINTON, ??JOSE Requesting: ??TRINI, ??ELIZABETH Requesting Fax: ?? Attending Fax: ?? Attending ID: ??[id number] Requesting ID: ??[id number] Report To 1 ID: ??[id number] ? Report To 1 Name: ??, ?? Report To 1 FAX: ?? NextGen Order #: ?? Procedure Note Miscellaneous, Not In File - 08/11/2017 EMILY DUENAS M.D. RUBA GILLIAM M.D. FINAL REPORT The radiology attending physician has personally reviewed this study, and has reviewed and/or edited this written report and agrees with it. ACC# Date Time Exam [id number] Jun 16, 2017 01:51:[address] Ankle/Hindfoot wo con R ACC# Date Time Exam [id number] Jun 16, 2017 01:51:[address] Ankle/Hindfoot wo con R EXAMINATION: CT [...] DUENAS M.D. on Jun 17 2017 7:41A [id number] ESCAMILLA M.D. FINAL REPORT The radiology attending physician has personally reviewed this study, and has reviewed and/or edited this written report and agrees with it. Attending: JOSE VERDUGO Requesting: ELIZABETH FELIZ Requesting Fax: Attending Fax: Attending ID: [id number] Requesting ID: [id number] Report To 1 ID: [id number] Report To 1 Name: , Report To [...] agrees with it. ACC# ??Date Time ??Exam [id number] Jun 16, 2017 00:43:00 03870 Ankle Complt. min 3 views R EXAMINATION: [...] by: STAN TONEY M.D. on Jun?2016 10:11A [id number] GARCIA M.D. FINAL REPORT The radiology attending physician has personally reviewed this study, and has reviewed and/or edited this written report and agrees with it. Attending: ??CLINTON, ??JOSE Requesting: ??TRINI, ??ELIZABETH Requesting Fax: ?? Attending Fax: ?? Attending ID: ??[id number] Requesting ID: ??[id number] Report To 1 ID: ??[id number] ? Report To 1 Name: ??, ?? Report To 1 FAX: ?? NextGen Order #: ?? Procedure Note Miscellaneous, Not In File - 08/11/2017 STAN TONEY M.D. DARCIE DUNHAM M.D. FINAL REPORT The radiology attending physician has personally reviewed this study, and has reviewed and/or edited this written report and agrees with it. ACC# Date Time Exam [id number] Jun 16, 2017 00:43:00 74326 Ankle Complt. min 3 views R EXAMINATION: [...] TONEY M.D. on Jun 16 2017 10:11A [id number] DIANE TONEY, M.D. DARCIE DEOLANKAR, M.D. FINAL REPORT The radiology attending physician has personally reviewed this study, and has reviewed and/or edited this written report and agrees with it. Attending: JOSE VERDUGO Requesting: ELIZABETH FELIZ Requesting Fax: Attending Fax: Attending ID: [id number] Requesting ID: [id number] Report To 1 ID: [id number] Report To 1 Name: , Report To 1 FAX: NextGen Order #: us Elizabeth Feliz MD PhD IMG XR PROCEDURES Edited Result - Final * B Check Sample (06/16/2017 4:14 AM CDT) ABO Rh O Positive [facility] HCLL OTHER 06/16/2017 4:14 AM CDT 06/16/2017 4:23 AM CDT us Notinfile Unknown LAB BLOOD ORDERABLES Final Res ult [facility] Department [place] [address] * XR Ankle 3+ Vw (06/16/2017 3:56 AM CDT) Anatomical Region Laterality Modality N/A Radiographic Dagmar ging 06/16/2017 3:56 AM CDT Narrative 06/16/2017 3:56 AM CDT STAN TONEY M.D. DARCIE DUNHAM M.D. FINAL REPORT The radiology attending physician has personally reviewed this study, and has reviewed and/or edited this written report and agrees with it. ACC# ??Date Time ??Exam [id number] Jun 15, 2017 22:10:00 45936 Tibia Fibula 2 views R [id number] Jun 15, 2017 22:56:00 87539 Ankle Complt. min 3 views R EXAMINATION: [...] STAN TONEY M.D. on Jun ??2016 10:11A [id number] GARCIA M.D. FINAL REPORT The radiology attending physician has personally reviewed this study, and has reviewed and/or edited this written report and agrees with it. Attending: ??CLINTON, ??JOSE Requesting: ??NAOMI, ??FELICIA Requesting Fax: ?? Attending Fax: ?? Attending ID: ??[id number] Requesting ID: ??[id number] Report To 1 ID: ??[id number] ? Report To 1 Name: ??, ?? Report To 1 FAX: ?? NextGen Order #: ?? Procedure Note Miscellaneous, Not In File - 08/11/2017 Gabrielle GARCIA M.D. FINAL REPORT The radiology attending physician has personally reviewed this study, and has reviewed and/or edited this written report and agrees with it. ACC# Date Time Exam [id number] Jun 15, 2017 22:10:00 75867 Tibia Fibula 2 views R [id number] Jun 15, 2017 22:56:00 59560 Ankle Complt. min 3 views R EXAMINATION: [...] TONEY M.D. on Jun 16 2017 10:11A [id number] GARCIA M.D. FINAL REPORT The radiology attending physician has personally reviewed this study, and has reviewed and/or edited this written report and agrees with it. Attending: JOSE VERDUGO Requesting: FELICIA SAMS Requesting Fax: Attending Fax: Attending ID: [id number] Requesting ID: [id number] Report To 1 ID: [id number] Report To 1 Name: , Report To [...] agrees with it. ACC# ??Date Time ??Exam [id number] Jun 15, 2017 22:10:00 84767 Tibia Fibula 2 views R [id number] Jun 15, 2017 22:56:00 52855 Ankle Complt. min 3 views R EXAMINATION: [...] STAN TONEY M.D. on Jun ??2016 10:11A [id number] GARCIA M.D. FINAL REPORT The radiology attending physician has personally reviewed this study, and has reviewed and/or edited this written report and agrees with it. Attending: ??CLINTON, ??JOSE Requesting: ??NAOMI, ??FELICIA Requesting Fax: ?? Attending Fax: ?? Attending ID: ??[id number] Requesting ID: ??[id number] Report To 1 ID: ??[id number] ? Report To 1 Name: ??, ?? Report To 1 FAX: ?? NextGen Order #: ?? Procedure Note Miscellaneous, Not In File - 08/11/2017 STAN TONEY M.D. DARCIE DUNHAM M.D. FINAL REPORT The radiology attending physician has personally reviewed this study, and has reviewed and/or edited this written report and agrees with it. ACC# Date Time Exam [id number] Jun 15, 2017 22:10:00 67289 Tibia Fibula 2 views R [id number] Jun 15, 2017 22:56:00 23724 Ankle Complt. min 3 views R EXAMINATION: [...] This document has been electronically signed by: SATN TONEY M.D. on Jun 16 2017 10:11A [id number] GARCIA M.D. FINAL REPORT The radiology attending physician has personally reviewed this study, and has reviewed and/or edited this written report and agrees with it. Attending: JOSE VERDUGO Requesting: FELICIA SAMS Requesting Fax: Attending Fax: Attending ID: [id number] Requesting ID: [id number] Report To 1 ID: [id number] Report To 1 Name: , Report To [...] and screen (06/15/2017 8:57 PM CDT) Pathologist [facility] Kate, indirect Negative [facility] ABO Rh O Positive [facility] Blood specimen (specimen) 06/15/2017 8:57 PM CDT 06/15/2017 9:15 PM CDT Felicia Sams MD LAB BLOOD BANK TEST ORDER LATRICE Final Result [facility] Department [place] [address] * Basic metabolic panel (06/15/2017 8:57 PM CDT) Pathologist [facility] Sodium 142 135 - 145 mmol/L [facility] Potassium, pl 3.7 3.3 - 4.9 mmol/L [facility] Chloride 105 97 - 110 mmol/L [facility] CO2 23 22 - 32 mmol/L [facility] BUN 22 8 - 25 mg/dL [facility] Glucose 103 70 - 199 mg/dL [facility] Creatinine 0.65 0.60 - 1.10 mg/dL [facility] Calcium 9.2 8.5 - 10.3 mg/dL [facility] Anion gap 14 2 - 15 mmol/L [facility] Blood specimen (specimen) 06/15/2017 8:57 PM CDT 06/15/2017 9:36 PM CDT Felicia Sams MD LAB BLOOD ORDERABLES Serene alcantara Result Performing Organization Address [facility] de Phone Number [facility] [place] [address] * aPTT (06/15/2017 8:57 PM CDT) aPTT 34.1 25.0 - 37.0 sec [facility] Comment: Interpretive Data Therapeutic heparin range:60.0 - 94.0 sec based on correlation with therapeutic heparin activity range of 0.3 -0.7 Units/mL. Current interpretive data was last revised on 2011. Blood specimen (specimen) 06/15/2017 8:57 PM CDT 06/15/2017 9:23 PM CDT Felicia Sams MD LAB BLOOD ORDERABLES Serene alcantara Result Performing Organization Address [facility] de Phone Number [facility] [place] [address] * Protime-INR (06/15/2017 8:57 PM CDT) PT 13.6 9.2 - 14.0 sec [facility] INR 1.19 0.81 - 1.22 [facility] Comment: Interpretive Data Inpatient therapeutic ranges* Atrial fibrillation ?2.0-3.0 INR Venous thrombo-embolism ?2.0-3.0 INR Bioprosthetic heart valve ?* Mechanical heart valve, bileaflet or tilting disk,aortic position ? 2.0-3.0 INR All other,or bileaflet or tilting disk, in mitral position ? 2.5-3.5 INR *See the pharmacy resource directory (PHRED) for an updated copy of the Tool Book at [email or web address]/bjc/pharmacy.nsf Current Interpretive Data was last revised 2011. Blood specimen (specimen) 06/15/2017 8:57 PM CDT 06/15/2017 9:23 PM CDT Felicia Sams MD LAB BLOOD ORDERABLES Serene l Result Performing Organization Address [facility] Co de Phone Number [facility] [place] [address] * (ABNORMAL) Differential, auto (06/15/2017 8:57 PM CDT) Neutrophil pct 75.9 % [facility] Imm gran pct 0.4 % [facility] Lymphocyte pct 17.5 % [facility] Monocyte pct 5.6 % [facility] Eosinophil pct 0.2 % [facility] Basophil pct 0.4 % [facility] Neutrophil abs 7.25(H) 1.70 - 6.50 K/cumm [facility] Imm gran abs 0.04 0.00 - 0.10 K/cumm [facility] Lymphocyte abs 1.67 0.80 - 3.30 K/cumm [facility] Monocyte abs 0.54 0.20 - 0.80 K/cumm [facility] Eosinophil abs 0.02 0.00 - 0.50 K/cumm [facility] Basophil abs 0.04 0.00 - 0.10 K/cumm [facility] Blood specimen (specimen) 06/15/2017 8:57 PM CDT 06/15/2017 9:36 PM CDT Felicia Sams MD LAB BLOOD ORDERABLES Serene l Result Performing Organization Address City/[facility]/ZIP Co de Phone Number JOSE ANTONIO [facility] Department [place] [address] * CBC with auto differential (06/15/2017 8:57 PM CDT) WBC 9.56 3.80 - 9.90 K/cumm [facility] RBC 4.45 3.90 - 5.20 M/cumm [facility] Hgb 12.5 11.9 - 15.5 g/dL [facility] Hct 37.4 35.6 - 45.5 % [facility] MCV 84.0 81.3 - 96.4 fL [facility] MCH 28.1 27.1 - 33.3 pg [facility] MCHC 33.4 32.3 - 35.7 g/dL [facility] RDW CV 13.1 11.1 - 14.9 % [facility] RDW SD 39.9 35.7 - 48.1 fL [facility] Plt 376 150 - 400 K/cumm [facility] MPV 10.7 9.1 - 12.3 fL [facility] NRBC 0.0 0.0 - 0.2 % [facility] NRBC abs 0.00 0.00 - 0.01 K/cumm [facility] Blood specimen (specimen) 06/15/2017 8:57 PM CDT 06/15/2017 9:36 PM CDT us Felicia Sams MD LAB BLOOD ORDERABLES Serene l Result [facility] [place] [address] documented in this encounter Visit Diagnoses Not on filedocumented in this encounter Care Teams Audio Experience Expert Relationship Specialty Start Date End Date No, Physician PCP - General 06/15/17 07/08/17 documented as of this encounter
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
--- OUTSIDE RECORDS SUMMARY | 2024-10-20 04:33 | XMS_ITS | Encounter Summary ---
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 Gender Identity Not on file Sexual Orientation Not on file documented as of this encounter Last Filed Vital Signs Vital Sign Reading Time Taken Comments Blood Pressure 139/108 09/06/2018 8:29 AM PROTOZOOLOGIST Pulse 82 09/06/2018 8:29 AM PROTOZOOLOGIST Temperature 36.4 ??C (97.5 ??F) 09/06/2018 8:29 AM CS T Respiratory Rate 20 09/06/2018 8:29 AM PROTOZOOLOGIST Oxygen Saturation 98% 09/06/2018 8:29 AM PROTOZOOLOGIST Inhaled Oxygen Concentration - - Weight 90.7 kg (200 lb) 09/06/2018 8:29 AM PROTOZOOLOGIST Height 160 cm (5' 3 ) 09/06/2018 8:29 AM PROTOZOOLOGIST Body Mass Index 35.43 09/06/2018 8:29 AM PROTOZOOLOGIST documented in this encounter Discharge Instructions * Attachments The following attachments cannot be sent through Care Everywhere. * Upper Respiratory Infection (Coil Cleaner) (Kazakh) documented in this encounter Medications at Time [...] is normal. Nursing note and vitals reviewed. [facility] Vitals: 09/06/18 0829 BP: (!) 139/108 Pulse: 82 Resp: 20 Temp: 36.4 ??C (97.5 ??F) TempSrc: Temporal SpO2: 98% Weight: 90.7 kg (200 lb) Height: 160 cm (5' 3 ) Labs Reviewed - No data to display XR Chest Pa Lateral 2 Views (Results Pending) [facility] ED Course as of Sep 06 920 [...] and actions. Sandro Adler MD 09/06/18 0920 OZOOLOGIST * María Silva RN - 09/06/2018 8:28 AM CST Patient presents to the emergency room for evaluation of cough and congestion over the last two days. Patient in no distress. OZOOLOGIST documented in this encounter Plan of Treatment Not on file documented as of this encounter Procedures Procedure Name Priority Date/Time Associated Diagnosis Comments XR CHEST PA LATERAL 2 VIEWS ED 09/06/2018 8:48 AM PROTOZOOLOGIST documented in this encounter Results * XR Chest Pa Lateral 2 Views (09/06/2018 8:48 AM PROTOZOOLOGIST) Anatomical Region Laterality Modality Body, Chest N/A Computed Radiogr aphy 09/06/2018 9:49 AM PROTOZOOLOGIST Impressions 09/06/2018 9:50 AM PROTOZOOLOGIST NO ACUTE PULMONARY DISEASE. Electronically signed by: Rei Glasgow M.D [facility] 09/06/2018 9:50 AM PROTOZOOLOGIST XR CHEST PA LATERAL 2 VIEWS HISTORY: [...] 08/26/2018 added in this encounter Care Teams Mail Censor Relationship Specialty Start Date End Date Miscellaneous, Not In File PCP - General 07/09/17 documented as of this encounter
--- OUTSIDE RECORDS SUMMARY | 2024-10-20 04:33 | XMS_ITS | Encounter Summary ---
Author Organization [facility] Address [address] [place] [address] Care Team Providers Care Front Counter Attendant Name Role Phone No, Physician Primary Care Provider Unavailabl e Reason for Visit * Reason Comments Pain Encounter Details Date Type Department Care Team (Late st Contact Info) Description 06/02/2017 2:00 PM CDT Office Visit [facility] Orthopedics and Sports Medicine [address] [facility] [address] [address] [place] [id number] Ebenezer Teran PA [address] [facility] [address] [place] [address] Carpal tunnel syndrome of right wrist (Primary [...] on file 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
--- OUTSIDE RECORDS SUMMARY | 2024-10-20 04:33 | XMS_ITS | Encounter Summary ---
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
--- OUTSIDE RECORDS SUMMARY | 2024-10-20 04:33 | XMS_ITS | Encounter Summary ---
Author Organization [facility] Healthcare Address [address] [place] [address] Care Team Providers Care Compliance Engineer Name Role Phone No, Physician Primary Care Provider [phone] Encounter Details Date Type Department Care Team (Latest Contact Info) Description 06/19/2017 8:08 AM CDT - 06/19/2017 3:35 PM T Hospital Encounter [facility] OP INTERIM [phone] Alfredito Razo MD 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 We used a sqwpg-jw-uxipc reduction clamp to reduce the fracture. Appropriate [...] 06/20/2017 08:46 AM CDT George Christian MD AE:[facility] [address] #[id number] Editing MT: TD: 06/19/2017 12:54 PM cc: [...] M.D. FINAL REPORT ACC# ??Date Time ??Exam [id number] Jun 19, 2017 11:47:00 [id number] Ankle 2 views R EXAMINATION: ?Right ankle [...] document has been electronically signed by: EMILY DUEANS M.D. on Jun ??2016 12:05P [id number] DUENAS M.D. FINAL REPORT Attending: ??DANNI, ??ALFREDITO Requesting: ??BIB, ??GEORGE Requesting Fax: ?? Attending Fax: ?? Attending ID: ??[id number] Requesting ID: ??[id number] Report To 1 ID: ??[id number] ? Report To 1 Name: ??, ?? Report To 1 FAX: ?? NextGen Order #: ?? Procedure Note Miscellaneous, Not In File - 08/11/2017 EMILY DUENAS M.D. FINAL REPORT ACC# Date Time Exam [id number] Jun 19, 2017 11:47:00 [id number] Ankle 2 views R EXAMINATION: Right ankle [...] DUENAS M.D. on Jun 19 2017 12:05P [id number] DUENAS M.D. FINAL REPORT Attending: ALFREDITO RAZO Requesting: GEORGE CHRISTIAN Requesting Fax: Attending Fax: Attending ID: [id number] Requesting ID: [id number] Report To 1 ID: [id number] Report To 1 Name: , Report To 1 FAX: NextGen Order #: George Christian MD IMG XR PROCEDURES Edited Result - Final documented in this encounter Visit Diagnoses Not on filedocumented in this encounter Care Teams Compliance Engineer Relationship Specialty Start Date End Date No, Physician PCP - General 06/15/17 07/08/17 documented as of this encounter
--- OUTSIDE RECORDS SUMMARY | 2024-10-20 04:33 | XMS_ITS | Encounter Summary ---
Author Organization [facility] Address [address] [place] [address] Care Team Providers Care Commercial Sewing Instructor Name Role Phone No, Physician Primary Care Provider Unavailabl e Encounter Details Date Type Department Care Team (Latest Contact Info) Description 06/02/2017 11:30 AM CDT - 06/02/2017 11:59 PM CDT Hospital Encounter [facility] Orthopedics and Sports Medicine [address] [facility] [address] [phone] Discharge Disposition: Discharge to home or self care Social History Tobacco Use Types Packs/Day Years Used Date Smoking Tobacco: Never Smokeless Tobacco: Never Alcohol Use Standard Drinks/Week Comments No 0 (1 standard drink = 0.6 oz pur e alcohol) Comments Unknown Sex and Gender Information Value Date Recorded Sex Assigned at Not on file 

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
--- OUTSIDE RECORDS SUMMARY | 2024-10-20 04:33 | XMS_ITS | Encounter Summary ---
Author Organization [facility] Healthcare Address [address] [place] [address] Care Team Providers Care Bag Inspector Name Role Phone Miscellaneous, Not In File Primary Care Provider Unavailable Encounter Details Date Type Department Care Team (Latest Contact Info) Description 09/24/2017 11:28 AM ASSEMBLER CHASSIS - 09/24/2017 11:59 PM [facility] Hospital Encounter [facility] OP INTERIM [phone] Amber Driscoll MD [address] [place] [address] Emily Bryan MD [address] [facility] [address] [place] [address] Discharge Disposition: Discharge to home or self care Social History Tobacco Use Types Packs/Day Years Used Date Smoking Tobacco: Never Smokeless Tobacco: Never Alcohol Use Standard Drinks/Week Comments No 0 (1 standard drink = 0.6 oz pur e alcohol) Comments Unknown Sex and Gender Information Value Date Recorded Sex Assigned at Not on file Legal Sex Female 2:14 AM ASSEMBLER CHASSIS Gender Identity Not on file Sexual Orientation [...] ANKLE 3+ VW Routine 09/24/2017 5:47 PM ASSEMBLER CHASSIS documented in this encounter Results * XR Ankle 3+ Vw (09/24/2017 5:47 PM ASSEMBLER CHASSIS) Anatomical Region Laterality Modality N/A Radiographic Dagmar ging 09/24/2017 5:47 PM ASSEMBLER CHASSIS Narrative 09/24/2017 6:07 PM ASSEMBLER CHASSIS Gabrielle VERMA FINAL REPORT ACC# ??Date Time ??Exam [id number] Sep 24, 2017 11:47:00 [id number] Ankle Complt. min 3 views R EXAMINATION: [...] Gabrielle VERMA on Sep 24 2017 12:04P [id number] VERMA FINAL REPORT Attending: ??ORION, ??EMILY Requesting: ??CHRIS, ??MARILIN Requesting Fax: ?? Attending Fax: ?? Attending ID: ??[id number] Requesting ID: ??[id number] Report To 1 ID: ??[id number] ? Report To 1 Name: ??, ?? Report To 1 FAX: ?? NextGen Order #: ?? Procedure Note Miscellaneous, Not In File - 09/24/2017 Gabrielle VERMA FINAL REPORT ACC# Date Time Exam [id number] Sep 24, 2017 11:47:00 [id number] Ankle Complt. min 3 views R EXAMINATION: [...] Gabrielle VERMA on Sep 24 2017 12:04P [id number] VERMA FINAL REPORT Attending: EMILY BRYAN Requesting: MARILIN PEREZ Requesting Fax: Attending Fax: Attending ID: [id number] Requesting ID: [id number] Report To 1 ID: [id number] Report To 1 Name: , Report To 1 FAX: NextGen Order #: us Marilin Perez MD IMG XR PROCEDURES Final Result documented in this encounter Visit Diagnoses Not on filedocumented in this encounter Care Teams Bag Inspector Relationship Specialty Start Date End Date Miscellaneous, Not In File PCP - General 07/09/17 documented as of this encounter
--- OUTSIDE RECORDS SUMMARY | 2024-10-20 04:33 | XMS_ITS | Encounter Summary ---
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 As we have discussed, [...] Everywhere. * Otitis Media, Antibiotic Treatment (Adult) (Kosovan) documented in this encounter Medications at Time [...] as well, recommend using Sudafed and ongoing ertt-nvu-tamgifw medications to help with symptom control, due [...] Primary documented in this encounter Care Teams Boardinghouse Keeper Relationship Specialty Start Date End Date John Méndez MD PCP - General 11/11/19 10/01/24 documented as of this encounter
--- OUTSIDE RECORDS SUMMARY | 2024-10-20 04:33 | XMS_ITS | Encounter Summary ---
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 on: Aug 09 20162:35P Attending: KUSH GOMEZ Requesting: KUSH GOMEZ Requesting Fax: -- Attending Fax: -- Attending ID: [id number] Requesting ID: [id number] Report To 1 ID: [id number] Report To 1 Name: KUSH GOMEZ Report To 1 FAX: -- NextGen Order #: Historical Provider IMLuz Elena XR PROCEDURES Final R esult documented in this encounter Visit Diagnoses Diagnosis Sprain of right foot Exposure to other specified factors, initial encounter Activity, other specified Unspecified place or not applicable Essential (primary) hypertension Unspecified essential hypertension documented in this encounter Care Teams Psychiatric Registered Nurse Relationship Specialty Start Date End Date Clary Xavier MD [address] [place] [address] PCP - General 08/21/12 02/04/17 documented as of this encounter
--- OUTSIDE RECORDS SUMMARY | 2024-10-20 04:33 | XMS_ITS | Encounter Summary ---
Author Organization [facility] Healthcare Address [address] [place] [address] Care Team Providers Care Metalworking Specialist Name Role Phone Clary Xavier MD Primary Care Provider [phone] Encounter Details Date Type Department Care Team (Late st Contact Info) Description 09/10/2015 6:34 AM PHOTOGRAPHER FINISH - 09/10/2015 7:30 AM [facility] Hospital Encounter [facility] Kenn Torres MD [address] [place] [address] Injury of conjunctiva and corneal abrasion of [...] on file Legal Sex Female 2:14 AM PHOTOGRAPHER FINISH Gender Identity Not on file Sexual Orientation [...] hypertension documented in this encounter Care Teams Metalworking Specialist Relationship Specialty Start Date End Date Clary Xavier MD [address] [place] [address] PCP - General 08/21/12 02/04/17 documented as of this encounter
--- OUTSIDE RECORDS SUMMARY | 2024-10-20 04:33 | XMS_ITS | Encounter Summary ---
Author Organization [facility] Healthcare Address [address] [place] [address] Care Team Providers Care Cork Slabs Sawyer Name Role Phone Clary Xavier MD Primary Care Provider [phone] Encounter Details Date Type Department Care Team (Late st Contact Info) Description 03/29/2016 6:07 AM CDT - 03/29/2016 7:35 AM T Hospital Encounter [facility]INCON[facility] Dodson MD [address] [place] [address] Otitis externa of right ear; Impacted cerumen of right ear; Essential (primary) hypertension; Acquired absence of both cervix and uterus; Myringotomy tube status; Tubal ligation status; Allergy status to penicillin; Hormone replacement therapy (postmenopausal); 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 Social History Tobacco Use Types Packs/Day Years Used Date Smoking Tobacco: Never Alcohol Use Standard Drinks/Week Comments No 0 (1 standard drink = 0.6 oz pur e alcohol) Comments Unknown Sex and Gender Information Value Date Recorded Sex Assigned at Not on file 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
--- OUTSIDE RECORDS SUMMARY | 2024-10-20 04:33 | XMS_ITS | Encounter Summary ---
Author Organization [facility] Healthcare Address [address] [place] [address] Care Team Providers Care Corporate Tax Preparer Name Role Phone John Méndez MD Primary Care Provider [phone] Reason for Visit * Reason Comments URI Fatigue, ear pain, p ostnasal drip, nasal discharge, sinus pressure, dry cough, sore throat x 3 days. 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 The following is recommended treatment [...] tenderness or frontal sinus tenderness. Mouth/Throat: Lips: [place]. Mouth: Mucous membranes are moist. Pharynx: Posterior [...] The rapid strep test performed at the [facility] today was positive. The following is recommended [...] 08/09/2024 added in this encounter Care Teams Corporate Tax Preparer Relationship Specialty Start Date End Date John Méndez MD PCP - General 11/11/19 10/01/24 documented as of this encounter
--- OUTSIDE RECORDS SUMMARY | 2024-10-20 04:33 | XMS_ITS | Encounter Summary ---
Author Organization [facility] Healthcare Address [address] [place] [address] Care Team Providers Care Wallboard Worker Name Role Phone No, Physician Primary Care Provider Unavailabl e Encounter Details Date Type Department Care Team (Late st Contact Info) Description 02/05/2017 8:14 AM CDT - 02/05/2017 9:01 AM CDT Emergency [facility] Emergency Department [address] [place] [address] Randi Bustos MD [address] [place] [address] Discharge Disposition: Discharge to home or self care Social History Tobacco Use Types Packs/Day Years Used Date Smoking Tobacco: Never Alcohol Use Standard Drinks/Week Comments No 0 (1 standard drink = 0.6 oz pur e alcohol) Comments Unknown Sex and Gender Information Value Date Recorded Sex Assigned at Not on file 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
--- OUTSIDE RECORDS SUMMARY | 2024-10-20 04:33 | XMS_ITS | Encounter Summary ---
Author Organization [facility] Healthcare Address [address] [place] [address] Care Team Providers Care Certified Medical Asst Name Role Phone Clary Xavier MD Primary Care Provider [phone] Encounter Details Date Type Department Care Team (Latest Contact Info) Description 12/24/2014 6:42 PM CDT - 12/24/2014 7:49 PM CDT Hospital Encounter [facility] Open wound of hand; Essential hypertension; Need for prophylactic vaccination with combined gwiqjtzypd-tqdomiv-jg rtussis (DTP) vaccine; Dog bite; Place of occurrence, home Social History Tobacco Use Types Packs/Day Years Used Date Smoking Tobacco: Never Alcohol Use Standard Drinks/Week Comments No 0 (1 standard drink = 0.6 oz pur e alcohol) Comments Unknown Sex and Gender Information Value Date Recorded Sex Assigned at Not on file 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 Report To 1 ID: ??[id number] Report To 1 Name: ??ARLETH BERNSTEIN Report To 1 FAX: ??-- NextGen Order #: Procedure Note Provider, MD Adolfo - 02/05/2017 XR Hand L [id number] Acc#: [id number] DATE OF EXAM: Dec 24 2014 CLINICAL [...] ID: Requesting ID: Report To 1 ID: [id number] Report To 1 Name: ARLETH BERNSTEIN Report To 1 FAX: -- NextGen Order #: us Historical Provider MD FAJARDO XR PROCEDURES Final R esult documented in this encounter Visit Diagnoses Diagnosis Open wound of hand Essential hypertension Unspecified essential hypertension Need for prophylactic vaccination with combined dyxufzbdfv-qsvfvia-ukcmbbefj (DTP) vaccine Dog bite Place of occurrence, home documented in this encounter Care Teams Certified Medical Asst Relationship Specialty Start Date End Date Clary Xavier MD [address] [place] [address] PCP - General 08/21/12 02/04/17 documented as of this encounter
--- OUTSIDE RECORDS SUMMARY | 2024-10-20 04:33 | XMS_ITS | Encounter Summary ---
Author Organization [facility] Healthcare Address [address] [place] [address] Care Team Providers Care Maintenance Team Member Name Role Phone Clary Xavier MD Primary Care Provider [phone] Encounter Details Date Type Department Care Team (Late st Contact Info) Description 12/21/2015 4:41 PM AGENT BROKER - 12/21/2015 7:30 PM AGENT BROKER Hospital Encounter [facility] Pedro Mcguire MD [address] [place] [id number] Closed fracture of lower end of left [...] on file Legal Sex Female 2:14 AM AGENT BROKER Gender Identity Not on file Sexual Orientation [...] WRIST 3+ VW Routine 12/21/2015 6:02 PM AGENT BROKER documented in this encounter Results * XR Wrist 3+ VW (12/21/2015 6:02 PM AGENT BROKER) Anatomical Region Laterality Modality N/A Radiographic Dagmar ging 12/21/2015 6:02 PM AGENT BROKER Narrative 01/01/2016 6:40 AM CDT XR WRIST MIN 3 VIEWS L ??Acc#: ??[id number] DATE OF EXAM: ??Dec 21 2015 CLINICAL [...] ??PEDRO SOLIMAN Requesting Fax: ??-- Attending Fax: ??[phone] Attending ID: ??[id number] Requesting ID: ??[id number] Report To 1 ID: ??[id number] Report To 1 Name: ??PEDRO SOLIMAN Report To 1 FAX: ??-- NextGen Order #: Procedure Note Provider, Historical, MD - 02/05/2017 XR WRIST MIN 3 VIEWS L Acc#: [id number] DATE OF EXAM: Dec 21 2015 CLINICAL [...] SOLIMAN Requesting Fax: -- Attending Attending ID: [id number] Requesting ID: [id number] Report To 1 ID: [id number] Report To 1 Name: PEDRO SOLIMAN Report To 1 FAX: -- NextGen Order #: us Historical Provider IMG XR PROCEDURES Final R esult documented in this encounter Visit Diagnoses Diagnosis Closed fracture of lower end of left radius Fall Unspecified fall Non-institutional private residence as place of occurrence of external cause documented in this encounter Care Teams Maintenance Team Member Relationship Specialty Start Date End Date Clary Xavier MD [address] [place] [id number] PCP - General 08/21/12 02/04/17 documented as of this encounter
--- OUTSIDE RECORDS SUMMARY | 2024-10-20 04:33 | XMS_ITS | Encounter Summary ---
Author Organization [facility] Healthcare Address [address] [place] [address] Care Team Providers Care Educational Programming Director Name Role Phone Miscellaneous, Not In File Primary Care Provider Unavailable Encounter Details Date Type Department Care Team (Latest Contact Info) Description 07/09/2017 11:20 AM CDT - 07/09/2017 11:59 PM CDT Hospital Encounter [facility] [phone] Amber Driscoll MD [address] [place] [address] Emily Bryan MD [address] [facility] [[email or web address] [address] [place] [address] Discharge Disposition: Discharge to home or self care Social History Tobacco Use Types Packs/Day Years Used Date Smoking Tobacco: Never Smokeless Tobacco: Never Alcohol Use Standard Drinks/Week Comments No 0 (1 standard drink = 0.6 oz pur e alcohol) Comments Unknown Sex and Gender Information Value Date Recorded Sex Assigned at Not on file 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 FINAL REPORT ACC# ??Date Time ??Exam [id number] Jul 09, 2017 12:16:00 [id number] Ankle Complt. min 3 views R EXAMINATION: [...] DUENAS M.D. on Jul 09 2017 12:31P [id number] DUENAS M.D. FINAL REPORT Attending: ??ORION, ??EMILY Requesting: ??ORION, ??EMILY Requesting Fax: ?? Attending Fax: ?? Attending ID: ??[id number] Requesting ID: ??[id number] Report To 1 ID: ??[id number] ? Report To 1 Name: ??, ?? Report To 1 FAX: ?? NextGen Order #: ?? Procedure Note Miscellaneous, Not In File / Provider, MD Adolfo - 07/09/2017 EMILY DUENAS M.D. FINAL REPORT ACC# Date Time Exam [id number] Jul 09, 2017 12:16:00 [id number] Ankle Complt. min 3 views R EXAMINATION: [...] DUENAS M.D. on Jul 09 2017 12:31P [id number] DUENAS M.D. FINAL REPORT Attending: EMILY BRYAN Requesting: EMILY BRYAN Requesting Fax: Attending Fax: Attending ID: [id number] Requesting ID: [id number] Report To 1 ID: [id number] Report To 1 Name: , Report To 1 FAX: NextGen Order #: Emily Bryan MD IMG XR PROCEDURES Final Re sult documented in this encounter Visit Diagnoses Not on filedocumented in this encounter Care Teams Educational Programming Director Relationship Specialty Start Date End Date Miscellaneous, Not In File PCP - General 07/09/17 documented as of this encounter
--- OUTSIDE RECORDS SUMMARY | 2024-10-20 04:33 | XMS_ITS | Encounter Summary ---
Author Organization [facility] Healthcare Address [address] [place] [address] Care Team Providers Care Telephonic Nurse Name Role Phone Clary Xavier MD Primary Care Provider [phone] Encounter Details Date Type Department Care Team (Late st Contact Info) Description 08/29/2016 7:52 AM FIRE WATCHER - 08/29/2016 9:19 AM FIRE WATCHER Hospital Encounter [facility] Lamont Cornelius MD [address] [place] [id number] Cellulitis of right upper extremity; Essential (primary) hypertension Social History Tobacco Use Types Packs/Day Years Used Date Smoking Tobacco: Never Alcohol Use Standard Drinks/Week Comments No 0 (1 standard drink = 0.6 oz pur e alcohol) Comments Unknown Sex and Gender Information Value Date Recorded Sex Assigned at Not on file 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
--- OUTSIDE RECORDS SUMMARY | 2024-10-20 04:33 | XMS_ITS | Encounter Summary ---
Author Organization [facility] Healthcare Address [address] [place] [address] Care Team Providers Care Maintenance Manager Name Role Phone Miscellaneous, Not In File Primary Care Provider Unavailable Reason for Visit * Reason Comments Knee Pain Encounter Details Date Type Department Care Team (Late st Contact Info) Description 11/04/2018 8:10 AM ENGRAVER MACHINE - 11/04/2018 9:40 AM ENGRAVER MACHINE Emergency [facility] Emergency Department [address] [place] [address] Kenn Torres MD [address] [place] [address] Sprain of left knee, initial encounter (Primary [...] on file Legal Sex Female 2:14 AM ENGRAVER MACHINE Gender Identity Not on file Sexual Orientation Not on file documented as of this encounter Last Filed Vital Signs Vital Sign Reading Time Taken Comments Blood Pressure 153/100 11/04/2018 8:27 AM ENGRAVER MACHINE Pulse 78 11/04/2018 8:22 AM ENGRAVER MACHINE Temperature 36.7 ??C (98 ??F) 11/04/2018 8:22 AM ENGRAVER MACHINE Respiratory Rate 18 11/04/2018 8:22 AM ENGRAVER MACHINE Oxygen Saturation 98% 11/04/2018 8:22 AM ENGRAVER MACHINE Inhaled Oxygen Concentration - - Weight 90.7 kg (200 lb) 11/04/2018 8:22 AM ENGRAVER MACHINE Height 160 cm (5' 3 ) 11/04/2018 8:22 AM ENGRAVER MACHINE Body Mass Index 35.43 11/04/2018 8:22 AM ENGRAVER MACHINE documented in this encounter Discharge Instructions * Discharge Instructions* Rei Aparicio PA - 11/04/2018 9:26 AM ENGRAVER MACHINE [facility]: [facility] Dr. Arguelles, Dr. Cook, Dr Mckinley, Dr Landis, Dr. Kelly [address] [place] [address] ph# [phone] [facility], [facility]. Dr. [facility] [place] [address] ph# [phone] Jefferson [address] [place] [address] ph# [phone] Pre-hypertension/Hypertension: You are being informed that you [...] further evaluation of possible pre-hypertension or Hypertension AVER MACHINE * Attachments The following attachments cannot be sent through Care Everywhere. * Knee Sprain (Code And Test Clerk) (Iraqi) documented in this encounter Medications at Time [...] Movement and sensation present. Ice pack applied. AVER MACHINE * Rei Aparicio PA - 11/04/2018 8:21 [...] thought contentnormal. Nursing note and vitals reviewed. [facility] ED Course as of Nov 04 [...] Kenn Torres MD at 11/08/2018 4:55 PM ENGRAVER MACHINE AVER MACHINE AVER MACHINE Associated attestation - Kenn Torres MD - 11/08/2018 4:55 PM ENGRAVER MACHINE ED Attestation Based on the medical record the care appears appropriate. documented in this encounter Plan of Treatment Not on file documented as of this encounter Procedures Procedure Name Priority Date/Time Associated Diagnosis Comments XR KNEE LEFT 4 OR MORE VIEWS ED 11/04/2018 8:43 AM ENGRAVER MACHINE documented in this encounter Results * XR Knee Left 4 or More Views (11/04/2018 8:43 AM ENGRAVER MACHINE) Anatomical Region Laterality Modality Lower Extremities, Knee Left Computed Radiography 11/04/2018 12:5 2 PM ENGRAVER MACHINE Impressions 11/04/2018 1:41 PM ENGRAVER MACHINE 1. ??Very mild medial and minimal patellofemoral compartment degenerative spurring. 2. ??No other left knee abnormality seen. Electronically signed by: Milan Kahn Jr., M.D. Narrative 11/04/2018 1:41 PM ENGRAVER MACHINE XR KNEE LEFT 4 OR MORE VIEWS [...] For 1 dose Given 11/04/2018 8:39 AM ENGRAVER MACHINE 800 mg documented in this encounter Active and Recently Administered Medications Times are shown in ENGRAVER MACHINE. Scheduled Medication Order 11/02/2018 11/03/2018 11/04/2018 ibuprofen [...] 11/04/2018 documented in this encounter Care Teams Maintenance Manager Relationship Specialty Start Date End Date Miscellaneous, Not In File PCP - General 07/09/17 documented as of this encounter
--- OUTSIDE RECORDS SUMMARY | 2024-10-20 04:33 | XMS_ITS | Encounter Summary ---
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
--- OUTSIDE RECORDS SUMMARY | 2024-10-20 04:33 | XMS_ITS | Encounter Summary ---
Author Organization [facility] Healthcare Address [address] [place] [address] Care Team Providers Care Louver Door Assembler Name Role Phone No, Physician Primary Care Provider [phone] Encounter Details Date Type Department Care Team (Late st Contact Info) Description 06/15/2017 3:54 PM CDT - 06/15/2017 7:46 PM CDT Emergency [facility] Emergency Department [address] [place] [address] Becky Garzon Discharge Disposition: Discharge to a short term hospital for IP Social History Tobacco Use Types Packs/Day Years Used Date Smoking Tobacco: Never Smokeless Tobacco: Never Alcohol Use Standard Drinks/Week Comments No 0 (1 standard drink = 0.6 oz pur e alcohol) Comments Unknown Sex and Gender Information Value Date Recorded Sex Assigned at Not on file 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 XR Foot Min 3 Views R ??[id number] HISTORY: Fall. ??Right foot pain status post [...] Fax: ??-- Attending Fax: ??-- Attending ID: ??[id number] Requesting ID: ??[id number] Report To 1 ID: ??[id number] Report To 1 Name: ??DR VANESSA CONNORS Report To 1 FAX: ??-- NextGen Order #: ?? Procedure Note Miscellaneous, Not In File / Provider, MD Adolfo - 06/15/2017 XR Foot Min 3 Views R [id number] Acc#: [id number] DATE OF EXAM: Jun 15 2017 XR Foot Min 3 Views R [id number] HISTORY: Fall. Right foot pain status post [...] Fax: -- Attending Fax: -- Attending ID: [id number] Requesting ID: [id number] Report To 1 ID: [id number] Report To 1 Name: DR VANESSA CONNORS Report To 1 FAX: -- NextGen Order #: us Not In File Miscellaneous IMG XR PROCEDURES Serene l Result * XR Ankle 3+ Vw (06/15/2017 10:42 PM CDT) Anatomical Region Laterality Modality N/A Radiographic Dagmar ging 06/15/2017 10:4 2 PM CDT Narrative 06/15/2017 10:42 PM CDT XR Ankle Min 3 Views R ??[id number] ??Acc#: ??[id number] DATE OF EXAM: ??Jun ??2016 ?? XR Ankle Min 3 Views R ??[id number] HISTORY: Fall. ??Right ankle pain status post [...] Fax: ??-- Attending Fax: ??-- Attending ID: ??[id number] Requesting ID: ??[id number] Report To 1 ID: ??[id number] Report To 1 Name: ??DR VANESSA CONNORS Report To 1 FAX: ??-- NextGen Order #: ?? Procedure Note Miscellaneous, Not In File / Provider, MD Adolfo - 06/15/2017 XR Ankle Min 3 Views R [id number] Acc#: [id number] DATE OF EXAM: Jun 15 2017 XR Ankle Min 3 Views R [id number] HISTORY: Fall. Right ankle pain status post [...] 15 2017 5:51P Approved Electronically by: DR CHRITSIANNE LEE M.D. on: Jun 15 2017 5:51P Ordering DR: BECKY GARZON Attending DR: DR VANESSA CONNORS Attending: DR VANESSA CONNORS Requesting: EBCKY GARZON Requesting Fax: -- Attending Fax: -- Attending ID: [id number] Requesting ID: [id number] Report To 1 ID: [id number] Report To 1 Name: CONNORS, DR VANESSA Report To 1 FAX: -- NextGen Order #: us Not In File Miscellaneous IMG XR PROCEDURES Serene l Result documented in this encounter Visit Diagnoses Not on filedocumented in this encounter Care Teams Louver Door Assembler Relationship Specialty Start Date End Date No, Physician PCP - General 06/15/17 07/08/17 documented as of this encounter
--- OUTSIDE RECORDS SUMMARY | 2024-10-20 04:33 | XMS_ITS | Encounter Summary ---
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
--- OUTSIDE RECORDS SUMMARY | 2024-10-20 04:33 | XMS_ITS | Encounter Summary ---
Author Organization [facility] Medical [facility] Address [address] [place] [address] Care Team Providers Care Director Smb Sales Name Role Phone No, Physician Primary Care Provider Unavailabl e Encounter Details Date Type Department Care Team (Late st Contact Info) Description 06/10/2017 Telephone [facility] Orthopedics and Sports Medicine [address] [facility] [address], [place] [phone] Mary Cárdenas RMA Social History Tobacco Use Types Packs/Day Years Used Date Smoking Tobacco: Never Smokeless Tobacco: Never Alcohol Use Standard Drinks/Week Comments No 0 (1 standard drink = 0.6 oz pur e alcohol) Comments Unknown Sex and Gender Information Value Date Recorded Sex Assigned at Not on file 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 Patient called and notified order faxed to [facility]. documented in this encounter Plan of Treatment Not on file documented as of this encounter Visit Diagnoses Not on filedocumented in this encounter Care Teams Director Smb Sales Relationship Specialty Start Date End Date NO, PHYSICIAN PCP - General 02/05/17 06/14/17 documented as of this encounter
--- OUTSIDE RECORDS SUMMARY | 2024-10-20 04:33 | XMS_ITS | Encounter Summary ---
Author Organization [facility] Healthcare Address [address] [place] [address] Care Team Providers Care Veneer Stacker Name Role Phone Clary Xavier MD Primary Care Provider Encounter Details Date Type Department Care Team (Late st Contact Info) Description 12/22/2015 1:32 PM FINANCE VICE PRESIDENT - 12/22/2015 10:45 PM FINANCE VICE PRESIDENT Hospital Encounter [facility] Jaret Morejon MD [address] [place] [address] DR STE[address]ER [address] [address] Other intraarticular fracture of lower end of [...] on file Legal Sex Female 2:14 AM FINANCE VICE PRESIDENT Gender Identity Not on file Sexual Orientation [...] CST OPERATIVE REPORT Patient: ISAMAR SOLIZ Account: [id number] Room No: G642-01 : 1975 Patient Type: IP Attend.: Jaret Mckinley M.D. Admit Date: 12/22/2015 Surg.: Jaret Mckinley M.D. Disch. Date: 12/22/2015 PATIENT DIAGNOSIS: Comminuted intraarticular left distal radius fracture with at least three fragments. PROCEDURE: Left open reduction, internal fixation of comminuted distal radius fracture. ANESTHESIA: General. INCIDENT HANDLER: Donna Reed who was essential throughout the [...] Jaret Mckinley MD On 12/23/2015 06:42 PM FINANCE VICE PRESIDENT Jaret Mckinley M.D. RIP/km TD: 12/23/2015 00:28 documented in this encounter Plan of Treatment Not on file documented as of this encounter Procedures Procedure Name Priority Date/Time Associated Diagnosis Comments XR WRIST 3+ VW Routine 12/22/2015 7:10 PM FINANCE VICE PRESIDENT documented in this encounter Results * XR Wrist 3+ VW (12/22/2015 7:10 PM FINANCE VICE PRESIDENT) Anatomical Region Laterality Modality N/A Radiographic Dagmar ging 12/22/2015 7:10 PM FINANCE VICE PRESIDENT Narrative 12/23/2015 11:47 PM FINANCE VICE PRESIDENT XR WRIST MIN 3 VIEWS L ??Acc#: ??[id number] NO CHARGE FLUORO DATE OF EXAM: ??Dec [...] ??JARET MCKINLEY Requesting: ??JARET MCKINLEY Requesting Fax: ??[phone] Attending Fax: ??[phone] Attending ID: ??[id number] Requesting ID: ??[id number] Report To 1 ID: ??[id number] Report To 1 Name: ??JARET MCKINLEY Report To 1 FAX: ??[phone] NextGen Order #: Procedure Note Provider, MD Adolfo - 02/05/2017 XR WRIST MIN 3 VIEWS L Acc#: [id number] NO CHARGE FLUORO DATE OF EXAM: Dec [...] Read on: Dec 23 201510:31A Transcribed by: [facility] On: Dec 23 2015 10:31A Approved Electronically by: ALAN Anthony, DR MADDOX on: Dec 23 201511:47P Attending: JARET MCKINLEY Requesting: JARET MCKINLEY Requesting Attending Attending ID: [id number] Requesting ID: [id number] Report To 1 ID: [id number] Report To 1 Name: JARET MCKINLEY Report To 1 FAX: [phone] NextGen Order #: Historical Provider MD FAJARDO XR PROCEDURES Final R esult documented in this encounter Visit Diagnoses Diagnosis Other intraarticular fracture of lower end of left radius, initial encounter for closed fracture Fall on same level Unspecified fall Engages in activity Unspecified place or not applicable documented in this encounter Care Teams Veneer Stacker Relationship Specialty Start Date End Date Clary Xavier MD [address] [place] [address] PCP - General 08/21/12 02/04/17 documented as of this encounter
--- OUTSIDE RECORDS SUMMARY | 2024-10-20 04:33 | XMS_ITS | Encounter Summary ---
Author Organization [facility] Healthcare Address [address] [place] [address] Care Team Providers Care Usability Engineer Name Role Phone John Méndez MD Primary Care Provider [phone] Reason for Visit * Reason Comments Multiple Medical Complaints Encounter Details Date Type Department Care Team (Late st Contact Info) Description 04/22/2024 9:51 PM CDT - 04/22/2024 11:22 PM CDT Emergency [facility] Emergency Department [address] [place] [address] Kush Welsh MD [address] [address] Epigastric pain (Primary Dx) Discharge Disposition: Discharge [...] on file Legal 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 * Epigastric Pain (Uncertain Cause) (Polish) documented in this encounter Medications at Time [...] BLOOD ORDERABLES Final Result JOSE ANTONIO KENNEDY ([place]) 1 [facility] Department [place] [address] * CT Abdomen Pelvis W [...] PM T: ??04/22/2024 8:51 PM Report ID: [id number] Reading Location: ??[id number] Procedure Note Jaret Lares MD - 04/22/2024 [...] Jaret Lares M.D. AG: MAURI Report ID: [id number] Reading Location: [id number] Sumanth Kramer NP IMG CT PROCEDURES Final Res ult * (ABNORMAL) Urine culture Urine (04/22/2024 8:20 PM CDT) Report Final Report: Growth indicates contamination with gram-positive usama. Please submit a new specimen with special attention given to the collection process and to prompt transport to the laboratory. (.) Comment:Testing performed by : [facility], 1 [place]., [address] Organism GROWTH INDICATES CONTAMINATION WITH GRAM-POS USAMA [facility] ANTONIO [facility] ([place]) Urine 04/22/2024 8:20 PM CDT 04/23/2024 5:10 AM CDT Narrative [facility] ([place]) - 04/24/2024 12:41 PM CDT Urine culture reflexed based upon urinalysis results. Testing performed by [facility] ([phone]) us Sumanth Kramer NP LAB MICROBIOLOGY - GENERAL ORDERABLES Final Result JOSE ANTONIO KENNEDY ([place]) 1 [facility] [place] [address] * (ABNORMAL) Urinalysis, microscopic only (04/22/2024 8:20 [...] urine culture will be performed. JOSE ANTONIO KENNEYD ([place]) Urine 04/22/2024 8:20 PM CDT 04/22/2024 8:23 PM CDT us Sumanth Kramer NP LAB URINE ORDERABLES Final Result Performing Organization Address City/[facility]/ZIP Co de Phone Number JOSE ANTONIO KENNEDY ([place]) 1 [facility] Department [place] [address] * (ABNORMAL) Drugs of Abuse Screen, Urine [...] Not Detected CutOff 100ng/mL [facility] ([place]) Comment: Interpretive Data - Oxycodone: ??Samples containing [...] URINE ORDERABLES Final Result Performing Organization Address City/[facility]/ZIP Co de Phone Number JOSE ANTONIO KENNEDY ([place]) 1 [facility] [place] [address] * (ABNORMAL) Urinalysis reflex to microscopic and culture Urine (04/22/2024 8:20 PM CDT) Color, ur Yellow Yellow Clarity, ur Turbid(A) Clear [facility] ([place]) Specific gravity, ur 1.032(H) 1.003 - 1.030 [facility] ([place]) pH, urine 6.0 [facility] ([place]) Comment: Interpretive Data ? Urine pH is affected by diet, medications, systemic acid-base disturbances, and renal tubular function. ??pH may affect urinary stone formation. ??For example, urine pH below 6.0 may help reduce the tendency for calcium phosphate stones and pH greater than 6.0 may reduce the tendency for uric acid stone formation. Source: [facility] Current Interpretive Data was last revised on [...] Final Result JOSE ANTONIO KENNEDY ([place]) 1 [facility] [place] [address] * XR Chest 1 Vw Portable (04/22/2024 [...] PM T: ??04/22/2024 8:12 PM Report ID: [id number] Reading Location: ??[id number] Procedure Note Efrain Mckeon MD - 04/22/2024 [...] Efrain Mckeon M.D. KT: [id number] Report ID: [id number] Reading Location: [place] [address] Sumanth Kramer CABLE MAINTAINER IMG XR PROCEDURES Final Res ult * [...] 04/22/2024 7:57 PM CDT Sumanth Ayanna Thurm CABLE MAINTAINER LAB BLOOD ORDERABLES Final Result JOSE ANTONIO KENNEDY ([place]) 1 [facility] Department [place] [address] * (ABNORMAL) Differential, auto (04/22/2024 7:54 PM CDT) Neutrophil abs 8.0(H) 1.5 - 6.5 K/cumm Imm gran abs 0.0 0.0 - 0.1 K/cumm [facility] ([place]) Lymphocyte abs 2.7 0.8 - 3.3 K/cumm [facility] ([place]) Monocyte abs 1.0(H) 0.2 - 0.8 K/cumm [facility] ([place]) Eosinophil abs 0.1 0.0 - 0.5 K/cumm [facility] ([place]) Basophil abs 0.1 0.0 - 0.1 K/cumm [facility] ([place]) Neutrophil pct 67.2 % [facility] ([place]) Comment: Interpretive Data Percent cell count reference ranges are not reported, since discordance with absolute values may lead to misinterpretation of CBC data. Current Interpretive Data was last revised on 2018. Imm gran pct 0.3 % [facility] ([place]) Comment: Interpretive Data Percent cell count reference ranges are not reported, since discordance with absolute values may lead to misinterpretation of CBC data. Current Interpretive Data was last revised on 2018. Lymphocyte pct 22.5 % [facility] ([place]) Comment: Interpretive Data Percent cell count reference ranges are not reported, since discordance with absolute values may lead to misinterpretation of CBC data. Current Interpretive Data was last revised on 2018. Monocyte pct 8.6 % [facility] ([place]) Comment: Interpretive Data Percent cell count reference [...] BLOOD ORDERABLES Final Result JOSE ANTONIO KENNEDY ([place]) 1 [facility] [place] [address] * Lipase (04/22/2024 7:54 PM CDT) Lipase 32 10 - 99 Units/L Blood 04/22/2024 7:54 PM CDT 04/22/2024 7:57 PM CDT Sumanth Kramer NP LAB BLOOD ORDERABLES Final Result Performing Organization Address [facility] Co de Phone Number JOSE ANTONIO KENNEDY ([place]) 1 [facility] [place] [address] * Troponin T high-sensitivity series (baseline, 2hr, [...] BLOOD ORDERABLES Final Result Performing Organization Address City/[facility]/ZIP Co de Phone Number JOSE ANTONIO KENNEDY ([place]) 1 [facility] [place] [address] * (ABNORMAL) Comprehensive metabolic panel (04/22/2024 7:54 [...] 04/22/2024 7:57 PM CDT us Sumanth Kramer CABLE MAINTAINER LAB BLOOD ORDERABLES Final Result [facility] ([place]) 1 [facility] [place] [address] * (ABNORMAL) CBC with auto differential (04/22/2024 [...] 04/22/2024 7:57 PM CDT us Sumanth Kramer CABLE MAINTAINER LAB BLOOD ORDERABLES Final Result JOSE ANTONIO KENNEDY ([place]) 1 [facility] [place] [address] * ECG 12 lead (04/22/2024 7:48 PM CDT) 04/22/2024 7:48 PM CDT Narrative [facility] - 04/23/2024 9:24 AM CDT Vent Rate: 113 bpm RR Interval: 528 msec CA Interval: 137 msec QRS Duration: 75 msec QT Interval: 310 msec QTC Interval: 377 msec P-R-T [place]: 30 - 19 - -5 degrees IMPRESSION: SINUS TACHYCARDIA POSSIBLE LEFT ATRIAL ENLARGEMENT ??[-0.1mV P WAVE IN V1/V2] NONSPECIFIC ST ABNORMALITY ABNORMAL RHYTHM ECG Compared to prior EKG, heart rate has increased ST segment changes are new Electronically Signed By: Hakan Cooney MD us Sumanth Kramer NP ECG ORDERABLES Final Resul t [employer] documented in this encounter Visit Diagnoses Diagnosis [...] dose 2035 (Contrast Given - Provider: Lilibeth Pascual, RT) documented in this encounter Care Teams Usability Engineer Relationship Specialty Start Date End Date John Méndez MD PCP - General 11/11/19 10/01/24 documented as of this encounter
--- OUTSIDE RECORDS SUMMARY | 2024-10-20 04:33 | XMS_ITS | Encounter Summary ---
Author Organization [facility] Healthcare Address [address] [place] [address] Care Team Providers Care Senior Information Security Architect Name Role Phone Clary Xavier MD Primary Care Provider [phone] Encounter Details Date Type Department Care Team (Late st Contact Info) Description 07/02/2016 10:18 AM CDT - 07/02/2016 10:43 AM CDT Hospital Encounter [facility] Lamont Cornelius MD [address] [place] [id number] Periapical abscess without sinus; Other prison (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 therapy; Allergy status to penicillin Social History Tobacco Use Types Packs/Day Years Used Date Smoking Tobacco: Never Alcohol Use Standard Drinks/Week Comments No 0 (1 standard drink = 0.6 oz pur e alcohol) Comments Unknown Sex and Gender Information Value Date Recorded Sex Assigned at Not on file 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
--- OUTSIDE RECORDS SUMMARY | 2024-10-20 04:33 | XMS_ITS | Encounter Summary ---
Author Organization [facility] Healthcare Address [address] [place] [address] Care Team Providers Care Auto Motor Mechanic Name Role Phone Clary Xavier MD Primary Care Provider [phone] Encounter Details Date Type Department Care Team (Late st Contact Info) Description 04/03/2016 11:00 AM CDT - 04/03/2016 11:59 PM CDT Hospital Encounter [facility] Jaret Morejon MD [address] [place] [address] [address] [address] Social History Tobacco Use Types Packs/Day Years Used Date Smoking Tobacco: Never Alcohol Use Standard Drinks/Week Comments No 0 (1 standard drink = 0.6 oz pur e alcohol) Comments Unknown Sex and Gender Information Value Date Recorded Sex Assigned at Not on file 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
--- OUTSIDE RECORDS SUMMARY | 2024-10-20 04:33 | XMS_ITS | Encounter Summary ---
Author Organization [facility] Healthcare Address [address] [place] [address] Care Team Providers Care Telecommunicator Supervisor Name Role Phone No, Physician Primary Care Provider [phone] Encounter Details Date Type Department Care Team [...] file Legal Sex Female 2:14 AM COMMERCIAL DRAFTER Gender Identity Not on file Sexual Orientation [...] on filedocumented in this encounter Care Teams Telecommunicator Supervisor Relationship Specialty Start Date End Date No, Physician PCP - General 06/15/17 07/08/17 documented as of this encounter
--- OUTSIDE RECORDS SUMMARY | 2024-10-20 04:33 | XMS_ITS | Encounter Summary ---
Author Organization [facility] Healthcare Address [address] [place] [address] Care Team Providers Care Valance Cutter Name Role Phone John Méndez MD Primary Care Provider Reason for Visit * Reason Comments Sore Throat Encounter Details Date Type Department Care Team (Late st Contact Info) Description 11/11/2019 8:13 AM SHIFT COMMANDER - 11/11/2019 8:36 AM SHIFT COMMANDER Emergency [facility] Emergency Department [address] [place] [address] Acute pharyngitis, unspecified etiology (Primary Dx) Discharge [...] on file Legal Sex Female 2:14 AM SHIFT COMMANDER Gender Identity Not on file Sexual Orientation Not on file documented as of this encounter Last Filed Vital Signs Vital Sign Reading Time Taken Comments Blood Pressure 157/102 11/11/2019 8:22 AM SHIFT COMMANDER Pulse 78 11/11/2019 8:22 AM SHIFT COMMANDER Temperature 36.6 ??C (97.8 ??F) 11/11/2019 8:22 AM CS T Respiratory Rate 20 11/11/2019 8:22 AM SHIFT COMMANDER Oxygen Saturation 100% 11/11/2019 8:22 AM SHIFT COMMANDER Inhaled Oxygen Concentration - - Weight 90.7 kg (200 lb) 11/11/2019 8:22 AM SHIFT COMMANDER Height 157.5 cm (5' 2 ) 11/11/2019 8:22 AM SHIFT COMMANDER Body Mass Index 36.58 11/11/2019 8:22 AM SHIFT COMMANDER documented in this encounter Discharge Diagnoses Diagnosis Acute pharyngitis, unspecified - ACUTE PHARYNGITIS, UNSPECIFIED Essential (primary) hypertension - ESSENTIAL (PRIMARY) HYPERTENSION Unspecified essential hypertension Other long term care phlebotomist (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 therapy - OTHER CARE HOME (CURRENT) DRUG THERAPY documented in this encounter Discharge Instructions * Attachments The following attachments cannot be sent through Care Everywhere. * Pharyngitis (Discharge Care) ([place]) documented in this encounter Medications at Time [...] this encounter ED Notes * Ashly Perez, TILE PROFESSIONAL - 11/11/2019 8:24 AM CST HPI Chief [...] vomiting, or diarrhea. Patient has been taking [id number] medications including Tessalon Perles without relief. Patient [...] Diego Fitzpatrick MD at 11/11/2019 2:49 PM SHIFT COMMANDER T COMMANDER T COMMANDER Associated attestation - Diego Fitzpatrick MD - 11/11/2019 2:49 PM SHIFT COMMANDER ED Attestation Based on the medical record the care appears appropriate. * Ivis Smith RN - 11/11/2019 8:16 AM CST 44 yr old female presents to the ED with C/O sore throat. 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 Pt awake and alert upon arrival. T COMMANDER documented in this encounter Plan of Treatment [...] documented as of this encounter Care Teams Valance Cutter Relationship Specialty Start Date End Date John Méndez MD PCP - General 11/11/19 10/01/24 documented as of this encounter
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
--- OUTSIDE RECORDS SUMMARY | 2024-10-20 04:33 | XMS_ITS | Encounter Summary ---
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
--- OUTSIDE RECORDS SUMMARY | 2024-10-20 04:33 | XMS_ITS | Encounter Summary ---
Author Organization [facility] Healthcare Address [address] [place] [address] Care Team Providers Care Hris Coordinator Name Role Phone Miscellaneous, Not In File Primary Care Provider Unavailable Reason for Visit * Reason Comments Back Pain Encounter Details Date Type Department Care Team (Late st Contact Info) Description 06/27/2019 3:20 PM CDT - 06/27/2019 6:08 PM CDT Emergency [facility] Emergency Department 1 [place] [address] Eric Kim MD 1 [facility] [place] [address] Acute right-sided thoracic back pain (Primary Dx) [...] on file 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 * Back Pain (Acute or Chronic) (Estonian) documented in this encounter Medications at Time [...] Comment s Discharge to home or self shelter documented in this encounter ED Notes * [...] and she was reassured. Advised Flexeril and [id number] pain medication to help with her discomfort [...] tendency for uric acid stone formation. Source: [facility] [employer].Last revised 10-23-2017 COMPREHENSIVE METABOLIC PANEL - Abnormal [...] not the clinician. Eric Kim MD 06/27/19 [id number] * Ragini Marquez, MITESH - 06/27/2019 3:30 [...] * Lactate (06/27/2019 4:47 PM CDT) Pathologist [facility] Lactate 1.5 0.7 - 2.0 mmol/L [facility] ([place]) Blood specimen (specimen) 06/27/2019 4:47 PM CDT 06/27/2019 4:49 PM CDT us Eric Kim MD LAB BLOOD ORDERABLES Final R esult [facility] ([place]) [address] [place] [address] * eGFR (06/27/2019 4:38 PM CDT) eGFR 114 mL/min/1.7 3 m2 [facility] Comment: Interpretive Data Reference Interval Normal ?>/= 90 mL/min/1.73m2 Mildly decreased* ? 60 - 89 mL/min/1.73m2 Mildly to moderately decreased ?45 - 59 mL/min/1.73m2 Moderately to severely decreased ??30 - 44 mL/min/1.73m2 Severely decreased ?15 - 29 mL/min/1.73m2 Kidney Failure ?< 15 ??mL/min/1.73m2 *Relative to young adult level If -Icelandic multiply value by 1.16. Estimated glomerular filtration [...] BLOOD ORDERABLES Final R esult [facility] ([place]) [address] [place] [address] * Differential, auto (06/27/2019 4:38 PM CDT) [...] ORDERABLES Final R esult Performing Organization Address City/[facility]/ZIP Co de Phone Number [facility] ([place]) [address] [place] [address] * Lipase (06/27/2019 4:38 PM CDT) Lipase 34 10 - 99 Units/L [facility] ([place]) Blood specimen (specimen) 06/27/2019 4:38 PM CDT 06/27/2019 4:42 PM CDT Eric Kim MD LAB BLOOD ORDERABLES Final R esult Performing Organization Address [facility] [[email or web address]] Co de Phone Number [facility] ([place]) [address] [place] [address] * (ABNORMAL) Comprehensive metabolic panel (06/27/2019 4:38 [...] MD LAB BLOOD ORDERABLES Final R esult [facility] ([place] [address] [place] [address] * CBC with auto differential [...] LAB BLOOD ORDERABLES Final R esult [facility] ([place]) [address] [place] [address] [id number] * (ABNORMAL) Urinalysis, microscopic only (06/27/2019 3:47 [...] ORDERABLES Fi nal Result Performing Organization Address City/[facility]/ZIP Co de Phone Number [facility] ([place]) [address] [place] [address] * (ABNORMAL) Urinalysis reflex to microscopic and culture Urine (06/27/2019 3:47 PM CDT) Color, ur Yellow Yellow [facility] ([place]) Clarity, ur Clear Clear [facility] ([place]) Specific gravity, ur 1.013 1.010 - 1.025 [facility] ([place]) pH, urine 5.5 [facility] ([place]) Protein, ur ql Negative Negative [facility] R [...] tendency for uric acid stone formation. Source: [employer]. Last revised 10-23-2017 us Sandro Adler MD LAB MICROBIOLOGY - GENE RAL ORDERABLES Final Result Performing Organization Address City/[facility] [[email or web address]] Co de Phone Number [facility] ([place]) [address] [place] [address] documented in this encounter Visit Diagnoses Diagnosis [...] 06/27/2019 documented in this encounter Care Teams Hris Coordinator Relationship Specialty Start Date End Date Miscellaneous, Not In File PCP - General 07/09/17 documented as of this encounter
--- OUTSIDE RECORDS SUMMARY | 2024-10-20 04:33 | XMS_ITS | Encounter Summary ---
Author Organization [facility] Healthcare Address [address] [place] [address] Care Team Providers Care Repair Order Clerk Name Role Phone Miscellaneous, Not In File Primary Care Provider Unavailable Encounter Details Date Type Department Care Team (Latest Contact Info) Description 08/13/2017 1:01 PM CDT - 08/13/2017 11:59 PM CDT Hospital Encounter [facility] INTERIM [phone] Amber Driscoll MD [address] [place] [address] Emily Bryan MD [address] [facility] [address] [place] [address] Discharge Disposition: Discharge to home or self care Social History Tobacco Use Types Packs/Day Years Used Date Smoking Tobacco: Never Smokeless Tobacco: Never Alcohol Use Standard Drinks/Week Comments No 0 (1 standard drink = 0.6 oz pur e alcohol) Comments Unknown Sex and Gender Information Value Date Recorded Sex Assigned at Not on file Legal Sex Female 2:14 AM PRINT CONTROLLER Gender Identity Not on file Sexual Orientation [...] M.D. FINAL REPORT ACC# ??Date Time ??Exam [id number] Aug 13, 2017 13:47:00 [id number] Ankle Complt. min 3 views R EXAMINATION: [...] HANS KIM M.D. on Aug ??2016 ??1:58P [id number] KIM M.D. FINAL REPORT Attending: ??ORION, ??EMILY Requesting: ??ORION, ??EMILY Requesting Fax: ?? Attending Fax: ?? Attending ID: ??[id number] Requesting ID: ??[id number] Report To 1 ID: ??[id number] ? Report To 1 Name: ??, ?? Report To 1 FAX: ?? NextGen Order #: ?? Procedure Note Miscellaneous, Not In File - 08/13/2017 HANS KIM M.D. FINAL REPORT ACC# Date Time Exam [id number] Aug 13, 2017 13:47:00 [id number] Ankle Complt. min 3 views R EXAMINATION: [...] KIM M.D. on Aug 13 2017 1:58P [id number] KIM M.D. FINAL REPORT Attending: EMILY BRYAN Requesting: EMILY BRYAN Requesting Fax: Attending Fax: Attending ID: [id number] Requesting ID: [id number] Report To 1 ID: [id number] Report To 1 Name: , Report To 1 FAX: NextGen Order #: Emily Bryan MD IMG XR PROCEDURES Final Re sult documented in this encounter Visit Diagnoses Not on filedocumented in this encounter Care Teams Repair Order Clerk Relationship Specialty Start Date End Date Miscellaneous, Not In File PCP - General 9/27/17 1/29/ 20 documented as of this encounter
--- OUTSIDE RECORDS SUMMARY | 2024-10-20 04:34 | XMS_ITS | Encounter Summary ---
Author Organization [facility] Healthcare Address [address] [place] [address] Care Team Providers Care Food Cart Attendant Name Role Phone Unavailable Primary Care Provider Unavailabl e Encounter Details Date Type Department Care Team (Late st Contact Info) Description 01/16/2010 12:22 PM CDT - 01/16/2010 1:14 PM CDT Hospital Encounter [facility] CLINCONV Kenn Torres MD [address] [address] Open wound of hip and thigh; Accident caused by other specified cutting and piercing instruments or objects; Place of occurrence, home; External cause status; Need for prophylactic immunotherapy Social History Tobacco Use Types Packs/Day Years Used Date Smoking Tobacco: Never Assessed Comments Unknown Sex and Gender Information Value Date Recorded Sex Assigned at Not on file Legal Sex Female 2:14 AM REDIPPER Gender Identity Not on file Sexual Orientation [...]
--- OUTSIDE RECORDS SUMMARY | 2024-10-20 04:34 | XMS_ITS | Encounter Summary ---
Author Organization [facility] Healthcare Address [address] [place] [address] Care Team Providers Care Hot Baller Name Role Phone Clary Xavier MD Primary Care Provider [phone] Encounter Details Date Type Department Care Team (Late st Contact Info) Description 08/19/2014 9:46 AM EXTERN - 08/19/2014 1:30 PM EXTERN Hospital Encounter [facility] Onur Gomez MD [address] [place] [id number] Other specified gastritis; Essential hypertension; Personal history of allergy to penicillin Social History Tobacco Use Types Packs/Day Years Used Date Smoking Tobacco: Never Alcohol Use Standard Drinks/Week Comments No 0 (1 standard drink = 0.6 oz pur e alcohol) Comments Unknown Sex and Gender Information Value Date Recorded Sex Assigned at Not on file Legal Sex Female 2:14 AM EXTERN Gender Identity Not on file Sexual Orientation [...] Comments MICROBIOLOGY SUMMARY Routine 08/19/2014 12:00 AM EXTERN DISCHARGE LABORATORY CUMULATIVE REPORT Routine 08/19/2014 12:00 AM EXTERN documented in this encounter Results * Microbiology Summary (08/19/2014 12:00 AM EXTERN) 08/19/2014 Narrative HISTORICAL RESULTS - 08/21/2014 2:50 AM EXTERN ? [facility] ?CLINICAL LABORATORIES ? MICROBIOLOGY REPORT PATIENT NAME: ??ISAMAR SOLIZ ?MED RECORD#: ??[id number] BIRTHDATE: ??1975 ?? AGE: ??39 YRS SEX: F ?PATIENT#: ? [id number] ADMITTING DR: ??ONUR HERNANDEZ MD ? ATTENDING DR: ??ONUR HERNANDEZ MD ?ACCESSION#: ?? [id number] CREATED: ??08/21/14 ?? 0238 ? ADMIT DATE: ?? 08/19/14 ? MICRO - MISCELLANEOUS H PYLORI UREASE SCREEN ?Collected: 08/19/14 1227 ? Received: 08/19/14 1339 Source: TISSUE ?Started: 08/19/14 1339 ?TISSUE ?08/20/14 1210 ? NEGATIVE ANNABELLE TEST ?? END OF CHART us Historical Provider MD LAB MICROBIOLOGY - GENERA L ORDERABLES Final Result HISTORICAL RESULTS * Discharge Laboratory Cumulative Report (08/19/2014 12:00 AM EXTERN) 08/19/2014 Narrative HISTORICAL RESULTS - 08/21/2014 2:39 AM EXTERN Patient No: [id number] ? [facility] Patient Name: ISAMAR SOLIZ ?C Healthcare Age: 39 YRS ?: 1975 ?Sex:F ?[address] )[id number] ?? Adm Dt: 08/19/2014 ?[place] ??[address] Created: 08/21/2014 ??0239 ?? Pt. Type: O [...] penicillin documented in this encounter Care Teams Hot Baller Relationship Specialty Start Date End Date Clary Xavier MD [address] [place] [id number] PCP - General 08/21/12 02/04/17 documented as of this encounter
--- OUTSIDE RECORDS SUMMARY | 2024-10-20 04:34 | XMS_ITS | Encounter Summary ---
Author Organization [facility] Healthcare Address [address] [place] [address] Care Team Providers Care Research Hydraulic Engineer Name Role Phone Unavailable Primary Care Provider Unavailabl e Encounter Details Date Type Department Care Team (Late st Contact Info) Description 09/16/2008 2:59 PM MANAGER OF RADIOLOGY - 09/16/2008 11:59 PM MANAGER OF RADIOLOGY Hospital Encounter [facility] CLINCONV Social History Tobacco Use Types Packs/Day Years Used Date Smoking Tobacco: Never Assessed Comments Unknown Sex and Gender Information Value Date Recorded Sex Assigned at Not on file Legal Sex Female 2:14 AM MANAGER OF RADIOLOGY Gender Identity Not on file Sexual Orientation Not on file documented as of this encounter Plan of Treatment Not on file documented as of this encounter Visit Diagnoses Not on filedocumented in this encounter
--- OUTSIDE RECORDS SUMMARY | 2024-10-20 04:34 | XMS_ITS | Encounter Summary ---
Author Organization [facility] Healthcare Address [address] [place] [address] Care Team Providers Care Audit Clerk Name Role Phone Unavailable Primary Care Provider Unavailabl e Encounter Details Date Type Department Care Team (Late st Contact Info) Description 08/02/2007 1:12 PM CDT - 08/02/2007 5:45 PM CDT Hospital Encounter [facility] Kush Faustin MD [address] [facility] [address] [place] [address] Social History Tobacco Use Types Packs/Day Years Used Date Smoking Tobacco: Never Assessed Comments Unknown Sex and Gender Information Value Date Recorded Sex Assigned at Not on file Legal Sex Female 2:14 AM COMPRESSOR OPERATOR Gender Identity Not on file Sexual Orientation Not on file documented as of this encounter Plan of Treatment Not on file documented as of this encounter Visit Diagnoses Not on filedocumented in this encounter
--- OUTSIDE RECORDS SUMMARY | 2024-10-20 04:34 | XMS_ITS | Encounter Summary ---
Author Organization [facility] Healthcare Address [address] [place] [address] Care Team Providers Care Director Of Retail Name Role Phone Clary Xavier MD Primary Care Provider [phone] Encounter Details Date Type Department Care Team (Late st Contact Info) Description 02/10/2014 9:56 AM CDT - 02/10/2014 11:59 PM CDT Hospital Encounter [facility] Jazmin Su MD [address] [place] [address] Chronic sinusitis Social History Tobacco Use Types Packs/Day Years Used Date Smoking Tobacco: Never Alcohol Use Standard Drinks/Week Comments No 0 (1 standard drink = 0.6 oz pur e alcohol) Comments Unknown Sex and Gender Information Value Date Recorded Sex Assigned at Not on file Legal Sex Female 2:14 AM MEDICAL RECORDS RECEPTIONIST Gender Identity Not on file Sexual Orientation [...] [place] ? [id number] ??Acc#: ??[id number] DATE OF EXAM: ??May ??2013 CLINICAL HISTORY: [...] Adolfo - 02/05/[address] [place] [id number] Acc#: [id number] DATE OF EXAM: Feb 10 2014 CLINICAL [...] documented in this encounter Care Teams Director Of Retail Relationship Specialty Start Date End Date Clary Xavier MD [address] [place] [address] PCP - General 08/21/12 02/04/17 documented as of this encounter
--- OUTSIDE RECORDS SUMMARY | 2024-10-20 04:34 | XMS_ITS | Encounter Summary ---
Author Organization [facility] Healthcare Address [address] [place] [address] Care Team Providers Care Wave Soldering Machine Operator Name Role Phone Unavailable Primary Care Provider Unavailabl e Encounter Details Date Type Department Care Team (Late st Contact Info) Description 11/20/2008 5:43 PM SCREEN TENDER - 11/20/2008 7:35 PM SCREEN TENDER Hospital Encounter [facility] CLINCONV Kenn Torres MD [address] [facility] [address] [place] [address] [place] [address] [facility] [address] [place] [address] Otitis media Social History Tobacco Use Types Packs/Day Years Used Date Smoking Tobacco: Never Assessed Comments Unknown Sex and Gender Information Value Date Recorded Sex Assigned at Not on file Legal Sex Female 2:14 AM SCREEN TENDER Gender Identity Not on file Sexual Orientation Not on file documented as of this encounter Plan of Treatment Not on file documented as of this encounter Visit Diagnoses Diagnosis Otitis media Unspecified otitis media documented in this encounter
--- OUTSIDE RECORDS SUMMARY | 2024-10-20 04:34 | XMS_ITS | Encounter Summary ---
Author Organization [facility] Healthcare Address [address] [place] [address] Care Team Providers Care Record Retrieval Specialist Name Role Phone Clary Xavier MD Primary Care Provider Encounter Details Date Type Department Care Team (Late st Contact Info) Description 10/20/2012 12:43 PM CITY ENGINEER - 10/20/2012 11:59 PM CITY ENGINEER Hospital Encounter [facility] CLINJaret Roldan MD [address] [place] [address] [address] [address] Dietary counseling and surveillance; Obesity Social History Tobacco Use Types Packs/Day Years Used Date Smoking Tobacco: Never Assessed Comments Unknown Sex and Gender Information Value Date Recorded Sex Assigned at Not on file Legal Sex Female 2:14 AM CITY ENGINEER Gender Identity Not on file Sexual Orientation Not on file documented as of this encounter Plan of Treatment Not on file documented as of this encounter Visit Diagnoses Diagnosis Dietary counseling and surveillance Obesity Obesity, unspecified documented in this encounter Care Teams Record Retrieval Specialist Relationship Specialty Start Date End Date Clary Xavier MD [address] [place], [place] [id number] PCP - General 08/21/12 02/04/17 documented as of this encounter
--- OUTSIDE RECORDS SUMMARY | 2024-10-20 04:34 | XMS_ITS | Encounter Summary ---
Author Organization [facility] Healthcare Address [address] [place] [address] Care Team Providers Care Pressroom Supervisor Name Role Phone Unavailable Primary Care Provider [...] on file Legal Sex Female 2:14 AM FINANCIAL BUSINESS ANALYST Gender Identity Not on file Sexual Orientation Not on file documented as of this encounter Plan of Treatment Not on file documented as of this encounter Visit Diagnoses Not on filedocumented in this encounter
--- OUTSIDE RECORDS SUMMARY | 2024-10-20 04:34 | XMS_ITS | Encounter Summary ---
Author Organization [facility] Healthcare Address [address] [place] [address] Care Team Providers Care Trade Promotion Analyst Name Role Phone Unavailable Primary Care [...] on file Legal Sex Female 2:14 AM ASSOCIATE PROFESSOR Gender Identity Not on file Sexual Orientation Not on file documented as of this encounter Plan of Treatment Not on file documented as of this encounter Visit Diagnoses Diagnosis Otitis media Unspecified otitis media Infective otitis externa Migraine Migraine, unspecified, without mention of intractable migraine without mention of status migrainosus documented in this encounter
--- OUTSIDE RECORDS SUMMARY | 2024-10-20 04:34 | XMS_ITS | Encounter Summary ---
Author Organization [facility] Healthcare Address [address] [place] [address] Care Team Providers Care General Practice Name Role Phone Unavailable Primary Care Provider Unavailabl e Encounter Details Date Type Department Care Team (Late st Contact Info) Description 04/27/2010 6:38 PM CDT - 04/27/2010 8:00 PM CDT Hospital Encounter [facility] CLINCONV Kenn Torres MD [address] [facility] [address] [place] [address] Jyoti Perales MD [address] [place] [address] Contusion of knee; Fall resulting in striking against other object; Unspecified place of occurrence; state, incidental Social History Tobacco Use Types Packs/Day Years Used Date Smoking Tobacco: Never Assessed Comments Unknown Sex and Gender Information Value Date Recorded Sex Assigned at Not on file Legal Sex Female 2:14 AM BOILERMAKER LOFTSMAN Gender Identity Not on file Sexual Orientation Not on file documented as of this encounter Plan of Treatment Not on file documented as of this encounter Visit Diagnoses Diagnosis Contusion of knee Fall resulting in striking against other object Unspecified place of occurrence state, incidental documented in this encounter
--- OUTSIDE RECORDS SUMMARY | 2024-10-20 04:34 | XMS_ITS | Encounter Summary ---
Author Organization [facility] Healthcare Address [address] [place] [address] Care Team Providers Care Insurance Processor Name Role Phone Unavailable Primary Care Provider [...] on file Legal Sex Female 2:14 AM KNURLING MACHINE OPERATOR Gender Identity Not on file Sexual Orientation Not on file documented as of this encounter Plan of Treatment Not on file documented as of this encounter Visit Diagnoses Not on filedocumented in this encounter
--- OUTSIDE RECORDS SUMMARY | 2024-10-20 04:34 | XMS_ITS | Encounter Summary ---
Author Organization [facility] Healthcare Address [address] [place] [address] Care Team Providers Care Toaster Operator Name Role Phone Clary Xavier MD Primary Care Provider [phone] Encounter Details Date Type Department Care Team (Late st Contact Info) Description 08/23/2014 1:09 PM ASSISTED LIVING EXECUTIVE DIRECTOR - 08/23/2014 11:59 PM ASSISTED LIVING EXECUTIVE DIRECTOR Hospital Encounter [facility] Onur Gomez MD [address] [place] [address] Abdominal pain, right upper quadrant; Nausea with vomiting Social History Tobacco Use Types Packs/Day Years Used Date Smoking Tobacco: Never Alcohol Use Standard Drinks/Week Comments No 0 (1 standard drink = 0.6 oz pur e alcohol) Comments Unknown Sex and Gender Information Value Date Recorded Sex Assigned at Not on file Legal Sex Female 2:14 AM ASSISTED LIVING EXECUTIVE DIRECTOR Gender Identity Not on file Sexual Orientation [...] W PHARMACEUTICAL INTERVENTION Routine 08/23/2014 4:25 PM ASSISTED LIVING EXECUTIVE DIRECTOR documented in this encounter Results * NM Hepatobiliary Scan W Rx (08/23/2014 4:25 PM ASSISTED LIVING EXECUTIVE DIRECTOR) Anatomical Region Laterality Modality Body N/A Nuclear Medicine 08/23/2014 4:25 PM ASSISTED LIVING EXECUTIVE DIRECTOR Narrative 08/23/2014 9:23 PM ASSISTED LIVING EXECUTIVE DIRECTOR [place] [id number] ??Acc#: ??[id number] DATE OF EXAM: ??Aug 23 2014 CLINICAL [...] Adolfo, - 02/05/2017 [place] [id number] Acc#: [id number] DATE OF EXAM: Aug 23 2014 CLINICAL [...] vomiting documented in this encounter Care Teams Toaster Operator Relationship Specialty Start Date End Date Clary Xavier MD [address] [place] [address] PCP - General 08/21/12 02/04/17 documented as of this encounter
--- OUTSIDE RECORDS SUMMARY | 2024-10-20 04:34 | XMS_ITS | Encounter Summary ---
Author Organization [facility] Care Team Providers Care Paleobotanist Name Role Phone Unavailable Primary Care Provider Unavailabl e Encounter Details Date Type Department Care Team (Late st Contact Info) Description 12/09/2006 10:00 AM PHARMACY TECHNICIAN PER DIEM - 12/09/2006 11:59 PM PHARMACY TECHNICIAN PER DIEM Hospital Encounter [facility] Jyoti Oconnor MD [address] [facility] [address] [place] [address] Social History Tobacco Use Types Packs/Day Years Used Date Smoking Tobacco: Never Assessed Comments Unknown Sex and Gender Information Value Date Recorded Sex Assigned at Not on file Legal Sex Female 2:14 AM PHARMACY TECHNICIAN PER DIEM Gender Identity Not on file Sexual Orientation Not on file documented as of this encounter Plan of Treatment Not on file documented as of this encounter Visit Diagnoses Not on filedocumented in this encounter
--- OUTSIDE RECORDS SUMMARY | 2024-10-20 04:34 | XMS_ITS | Encounter Summary ---
Author Organization [facility] Address [address] [place] [address] Care Team Providers Care Parker Name Role Phone Clary Xavier MD Primary Care Provider [phone] Encounter Details Date Type Department Care Team (Late st Contact Info) Description 03/28/2014 9:52 AM CDT - 03/28/2014 11:02 AM CDT Hospital Encounter [facility] Kush Faustin MD [address] [facility] [address] [place] [address] Contact dermatitis and other eczema due to [...] on file Legal Sex Female 2:14 AM COLLECTION SUPERVISOR Gender Identity Not on file Sexual [...] landscaping documented in this encounter Care Teams Parker Relationship Specialty Start Date End Date Clary Xavier MD [address] [place] [address] PCP - General 08/21/12 02/04/17 documented as of this encounter
--- OUTSIDE RECORDS SUMMARY | 2024-10-20 04:34 | XMS_ITS | Encounter Summary ---
Author Organization [facility] Healthcare Address [address] [place] [address] Care Team Providers Care Keeler Polygraph Operator Name Role Phone Unavailable Primary Care Provider Unavailabl e Encounter Details Date Type Department Care Team (Late st Contact Info) Description 07/12/2011 7:03 AM CDT - 07/12/2011 12:35 PM CDT Hospital Encounter [facility]INCONV Jyoti Perales MD [address] [facility] [address] [place] [address] Excessive or frequent menstruation; Encounter for sterilization; Essential hypertension; Anxiety state Social History Tobacco Use Types Packs/Day Years Used Date Smoking Tobacco: Never Assessed Comments Unknown Sex and Gender Information Value Date Recorded Sex Assigned at Not on file Legal Sex Female 2:14 AM EXECUTIVE ADMIN Gender Identity Not on file Sexual Orientation Not on file documented as of this encounter Plan of Treatment Not on file documented as of this encounter Visit Diagnoses Diagnosis Excessive or frequent menstruation Encounter for sterilization Sterilization Essential hypertension Unspecified essential hypertension Anxiety state Anxiety state, unspecified documented in this encounter
--- OUTSIDE RECORDS SUMMARY | 2024-10-20 04:34 | XMS_ITS | Encounter Summary ---
Author Organization [facility] Healthcare Address [address] [place] [address] Care Team Providers Care Rx Specialist Name Role Phone Clary Xavier MD Primary Care Provider Encounter Details Date Type Department Care Team (Late st Contact Info) Description 10/02/2013 7:44 AM GAME FARM HELPER - 10/02/2013 9:05 AM GAME FARM HELPER Hospital Encounter [facility] Randi Almaraz MD [address] [facility] [place] [address] Acute pharyngitis Social History Tobacco Use Types Packs/Day Years Used Date Smoking Tobacco: Never Alcohol Use Standard Drinks/Week Comments No 0 (1 standard drink = 0.6 oz pur e alcohol) Comments Unknown Sex and Gender Information Value Date Recorded Sex Assigned at Not on file Legal Sex Female 2:14 AM GAME FARM HELPER Gender Identity Not on file Sexual [...] pharyngitis documented in this encounter Care Teams Rx Specialist Relationship Specialty Start Date End Date Clary Xavier MD [address] [place], [place] [id number] PCP - General 08/21/12 02/04/17 documented as of this encounter
--- OUTSIDE RECORDS SUMMARY | 2024-10-20 04:34 | XMS_ITS | Encounter Summary ---
Author Organization [facility] Healthcare Address [address] [place] [address] Care Team Providers Care Automotive Lube Technician Name Role Phone Unavailable Primary Care Provider [...] on file Legal Sex Female 2:14 AM MEAT CUTTER APPRENTICE Gender Identity Not on file Sexual Orientation Not on file documented as of this encounter Plan of Treatment Not on file documented as of this encounter Visit Diagnoses Not on filedocumented in this encounter
--- OUTSIDE RECORDS SUMMARY | 2024-10-20 04:34 | XMS_ITS | Encounter Summary ---
Author Organization [facility] Healthcare Address [address] [place] [address] Care Team Providers Care Agricultural Mechanic Name Role Phone Clary Xavier MD Primary Care Provider [phone] Encounter Details Date Type Department Care Team (Late st Contact Info) Description 08/01/2014 10:38 AM CDT - 08/01/2014 12:22 PM CDT Hospital Encounter [facility] Kush Faustin MD [address] [facility] [address] [place] [address] Acute bronchitis; Essential hypertension Social History Tobacco Use Types Packs/Day Years Used Date Smoking Tobacco: Never Alcohol Use Standard Drinks/Week Comments No 0 (1 standard drink = 0.6 oz pur e alcohol) Comments Unknown Sex and Gender Information Value Date Recorded Sex Assigned at Not on file Legal Sex Female 2:14 AM CELERY TIER Gender Identity Not on file Sexual Orientation [...] hypertension documented in this encounter Care Teams Agricultural Mechanic Relationship Specialty Start Date End Date Clary Xavier MD [address] [place] [address] PCP - General 08/21/12 02/04/17 documented as of this encounter
--- OUTSIDE RECORDS SUMMARY | 2024-10-20 04:34 | XMS_ITS | Encounter Summary ---
Author Organization [facility] Healthcare Address [address] [place] [address] Care Team Providers Care Technology Assistant Name Role Phone Clary Xavier MD Primary Care Provider [phone] Encounter Details Date Type Department Care Team (Late st Contact Info) Description 08/25/2012 3:17 PM SUCTION PLATE CARRIER CLEANER - 08/25/2012 11:59 PM SUCTION PLATE CARRIER CLEANER Hospital Encounter [facility] Vijaya Brock MD [address] [place] [address] Pain in joint, lower leg; Effusion of lower leg joint Social History Tobacco Use Types Packs/Day Years Used Date Smoking Tobacco: Never Assessed Comments Unknown Sex and Gender Information Value Date Recorded Sex Assigned at Not on file Legal Sex Female 2:14 AM SUCTION PLATE CARRIER CLEANER Gender Identity Not on file Sexual Orientation Not on file documented as of this encounter Plan of Treatment Not on file documented as of this encounter Visit Diagnoses Diagnosis Pain in joint, lower leg Effusion of lower leg joint documented in this encounter Care Teams Technology Assistant Relationship Specialty Start Date End Date Clary Xavier MD [address] [place] [address] PCP - General 08/21/12 02/04/17 documented as of this encounter
--- OUTSIDE RECORDS SUMMARY | 2024-10-20 04:34 | XMS_ITS | Encounter Summary ---
Author Organization [facility] Healthcare Address [address] [place] [address] Care Team Providers Care Loan Services Professional Name Role Phone Clary Xavier MD Primary Care Provider [phone] Encounter Details Date Type Department Care Team (Late st Contact Info) Description 04/18/2013 11:14 AM CDT - 04/18/2013 12:08 PM T Hospital Encounter [facility] Kush Faustin MD [address] [facility] [address] [place] [address] Pain in soft tissues of limb; Drug dependence (HCC); Essential hypertension Social History Tobacco Use Types Packs/Day Years Used Date Smoking Tobacco: Never Assessed Comments Unknown Sex and Gender Information Value Date Recorded Sex Assigned at Not on file 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
--- OUTSIDE RECORDS SUMMARY | 2024-10-20 04:34 | XMS_ITS | Encounter Summary ---
Author Organization [facility] Healthcare Address [address] [place] [address] Care Team Providers Care Sugar Laboratory Assistant Name Role Phone Pita Hernandez MD Primary Care Provider [phone] Encounter Details Date Type Department Care Team (Late st Contact Info) Description 04/30/2014 2:01 PM CDT - 04/30/2014 3:07 PM CDT Hospital Encounter [facility] CLINCONV Kenn Torres MD [address] [address] Contusion of knee; Fall from other slipping, tripping, or stumbling; Unspecified place of occurrence Social History Tobacco Use Types Packs/Day Years Used Date Smoking Tobacco: Never Alcohol Use Standard Drinks/Week Comments No 0 (1 standard drink = 0.6 oz pur e alcohol) Comments Unknown Sex and Gender Information Value Date Recorded Sex Assigned at Not on file 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
--- OUTSIDE RECORDS SUMMARY | 2024-10-20 04:34 | XMS_ITS | Encounter Summary ---
Author Organization [facility] Healthcare Address [address] [place] [address] Care Team Providers Care Draw End Hand Name Role Phone Unavailable Primary Care Provider Unavailabl e Encounter Details Date Type Department Care Team (Latest Contact Info) Description 05/24/2009 9:30 PM CDT - 05/25/2009 2:11 AM CDT Hospital Encounter [facility] [place]ás[place] [address] [facility] [address] [place] [address] Contusion of knee; Striking against or struck accidentally by furniture without subsequent fall; Place of occurrence, home; Essential hypertension; Other depressive disorder Social History Tobacco Use Types Packs/Day Years Used Date Smoking Tobacco: Never Assessed Comments Unknown Sex and Gender Information Value Date Recorded Sex Assigned at Not on file 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
--- OUTSIDE RECORDS SUMMARY | 2024-10-20 04:34 | XMS_ITS | Encounter Summary ---
Author Organization [facility] Healthcare Address [address] [place] [address] Care Team Providers Care Casting Machine Control Board Operator Name Role Phone Unavailable Primary Care Provider Unavailabl e Encounter Details Date Type Department Care Team (Late st Contact Info) Description 12/23/2011 10:01 PM CDT - 12/24/2011 12:40 AM CDT Hospital Encounter [facility] Randi Bustos MD [address] [facility] [place] [address] Sprain of ankle Social History Tobacco Use Types Packs/Day Years Used Date Smoking Tobacco: Never Assessed Comments Unknown Sex and Gender Information Value Date Recorded Sex Assigned at Not on file 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
--- OUTSIDE RECORDS SUMMARY | 2024-10-20 04:34 | XMS_ITS | Encounter Summary ---
Author Organization [facility] Healthcare Address [address] [place] [address] Care Team Providers Care Rural Route Carrier Name Role Phone Clary Xavier MD Primary Care Provider [phone] Encounter Details Date Type Department Care Team (Late st Contact Info) Description 05/05/2014 3:53 PM CDT - 05/05/2014 11:59 PM CDT Hospital Encounter [facility] Jaret Morejon MD [address] [facility] [address] [place] [address] Crista Weber PA [address] [place] [address] [address] [place] [address] Pain in joint, lower leg; Effusion of lower leg joint Social History Tobacco Use Types Packs/Day Years Used Date Smoking Tobacco: Never Alcohol Use Standard Drinks/Week Comments No 0 (1 standard drink = 0.6 oz pur e alcohol) Comments Unknown Sex and Gender Information Value Date Recorded Sex Assigned at Not on file Legal Sex Female 2:14 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
--- OUTSIDE RECORDS SUMMARY | 2024-10-20 04:34 | XMS_ITS | Encounter Summary ---
Author Organization [facility] Healthcare Address [address] [place] [address] Care Team Providers Care Real Estate Legal Assistant Name Role Phone Unavailable Primary Care Provider Unavailabl e Encounter Details Date Type Department Care Team (Latest Contact Info) Description 01/19/2011 7:24 AM CDT - 01/19/2011 8:10 AM CDT Hospital Encounter [facility] Guido Turner MD [facility] [place] [address] Infective otitis externa; Essential hypertension Social History Tobacco Use Types Packs/Day Years Used Date Smoking Tobacco: Never Assessed Comments Unknown Sex and Gender Information Value Date Recorded Sex Assigned at Not on file 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
--- OUTSIDE RECORDS SUMMARY | 2024-10-20 04:34 | XMS_ITS | Encounter Summary ---
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
--- OUTSIDE RECORDS SUMMARY | 2024-10-20 04:34 | XMS_ITS | Encounter Summary ---
Author Organization [facility] Healthcare Address [address] [place] [address] Care Team Providers Care Telephone Engineer Name Role Phone Unavailable Primary Care Provider Unavailabl e Encounter Details Date Type Department Care Team (Late st Contact Info) Description 09/14/2011 1:45 PM COCONUT JELLY ROLLER - 09/17/2011 9:50 AM COCONUT JELLY ROLLER Hospital Encounter [facility] KIERACONConnor Dumont MD [address] [place] [address] [address] Other postoperative infection; Removal of organ causing abnormal patient reaction, or later complication; Essential hypertension; Anemia Social History Tobacco Use Types Packs/Day Years Used Date Smoking Tobacco: Never Assessed Comments Unknown Sex and Gender Information Value Date Recorded Sex Assigned at Not on file Legal Sex Female 2:14 AM COCONUT JELLY ROLLER Gender Identity Not on file Sexual Orientation Not on file documented as of this encounter Plan of Treatment Not on file documented as of this encounter Visit Diagnoses Diagnosis Other postoperative infection Removal of organ causing abnormal patient reaction, or later complication Essential hypertension Unspecified essential hypertension Anemia Unspecified anemia documented in this encounter
--- OUTSIDE RECORDS SUMMARY | 2024-10-20 04:34 | XMS_ITS | Encounter Summary ---
Author Organization [facility] Healthcare Address [address] [place] [address] Care Team Providers Care Obedience Trainer Name Role Phone Unavailable Primary Care Provider Unavailabl e Encounter Details Date Type Department Care Team (Late st Contact Info) Description 11/18/2011 12:07 PM EMAIL MARKETING INTERN - 11/18/2011 12:50 PM EMAIL MARKETING INTERN Hospital Encounter [facility] Emir Christian MD [address] [place] [address] Sprain and strain of shoulder and upper arm; Overexertion from sudden strenuous movement Social History Tobacco Use Types Packs/Day Years Used Date Smoking Tobacco: Never Assessed Comments Unknown Sex and Gender Information Value Date Recorded Sex Assigned at Not on file Legal Sex Female 2:14 AM EMAIL MARKETING INTERN Gender Identity Not on file Sexual Orientation Not on file documented as of this encounter Plan of Treatment Not on file documented as of this encounter Visit Diagnoses Diagnosis Sprain and strain of shoulder and upper arm Overexertion from sudden strenuous movement documented in this encounter
--- OUTSIDE RECORDS SUMMARY | 2024-10-20 04:34 | XMS_ITS | Encounter Summary ---
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
--- OUTSIDE RECORDS SUMMARY | 2024-10-20 04:34 | XMS_ITS | Encounter Summary ---
Author Organization [facility] Healthcare Address [address] [place] [address] Care Team Providers Care Smart Energy Specialist Name Role Phone Clary Xavier MD Primary Care Provider Encounter Details Date Type Department Care Team (Late st Contact Info) Description 01/05/2012 7:05 PM CDT - 01/05/2012 9:35 PM CDT Hospital Encounter [facility] Guido Turner MD [address] [place] [address] Enthesopathy; Other depressive disorder Social History Tobacco Use Types Packs/Day Years Used Date Smoking Tobacco: Never Assessed Comments Unknown Sex and Gender Information Value Date Recorded Sex Assigned at Not on file 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
--- OUTSIDE RECORDS SUMMARY | 2024-10-20 04:34 | XMS_ITS | Encounter Summary ---
Author Organization [facility] Healthcare Address [address] [place] [address] Care Team Providers Care Exterior Designer Name Role Phone Clary Xavier MD Primary Care Provider [phone] Encounter Details Date Type Department Care Team [...] on file Legal Sex Female 2:14 AM EQUIPMENT MAINTENANCE TECH Gender Identity Not on file Sexual Orientation Not on file documented as of this encounter Plan of Treatment Not on file documented as of this encounter Visit Diagnoses Diagnosis Lumbosacral spondylosis without myelopathy documented in this encounter Care Teams Exterior Designer Relationship Specialty Start Date End Date Clary Xavier MD [address] [place] [address] PCP - General 12/25/11 08/20/12 documented as of this encounter
--- OUTSIDE RECORDS SUMMARY | 2024-10-20 04:34 | XMS_ITS | Encounter Summary ---
Author Organization [facility] Care Team Providers Care Java Project Manager Name Role Phone Unavailable Primary Care Provider Unavailabl e Encounter Details Date Type Department Care Team (Latest Contact Info) Description 05/24/2010 - 05/24/2010 11:59 PM CDT Hospital Encounter [facility] Danisha Shah MD [address] [facility] [address] [place] [id number] Other specified screening; Elderly multigravida with antepartum condition or complication Social History Tobacco Use Types Packs/Day Years Used Date Smoking Tobacco: Never Assessed Comments Unknown Sex and Gender Information Value Date Recorded Sex Assigned at Not on file Legal Sex Female 2:14 AM ALTERATIONS EXPERT Gender Identity Not on file Sexual Orientation Not on file documented as of this encounter Plan of Treatment Not on file documented as of this encounter Visit Diagnoses Diagnosis Other specified screening Elderly multigravida with antepartum condition or complication documented in this encounter
--- OUTSIDE RECORDS SUMMARY | 2024-10-20 04:34 | XMS_ITS | Encounter Summary ---
Author Organization [facility] Healthcare Address [address] [place] [address] Care Team Providers Care Qa Software Test Engineer Name Role Phone Unavailable Primary Care Provider Unavailabl e Encounter Details Date Type Department Care Team (Late st Contact Info) Description 06/05/2011 5:29 PM CDT - 06/05/2011 7:36 PM CDT Hospital Encounter [facility] Kenn Torres MD [address] [address] Contusion of foot; Other accident caused by striking against or being struck accidentally by objects or persons with or without subsequent fall Social History Tobacco Use Types Packs/Day Years Used Date Smoking Tobacco: Never Assessed Comments Unknown Sex and Gender Information Value Date Recorded Sex Assigned at Not on file Legal Sex Female 2:14 AM CATECHIST Gender Identity Not on file Sexual Orientation Not on file documented as of this encounter Plan of Treatment Not on file documented as of this encounter Visit Diagnoses Diagnosis Contusion of foot Other accident caused by striking against or being struck accidentally by objects or persons with or without subsequent fall documented in this encounter
--- OUTSIDE RECORDS SUMMARY | 2024-10-20 04:34 | XMS_ITS | Encounter Summary ---
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
--- OUTSIDE RECORDS SUMMARY | 2024-10-20 04:34 | XMS_ITS | Encounter Summary ---
Author Organization [facility] Healthcare Address [address] [place] [address] Care Team Providers Care Family Specialist Name Role Phone Clary Xavier MD Primary Care Provider Encounter Details Date Type Department Care Team (Late st Contact Info) Description 08/25/2012 9:50 AM SIDEHAND - 09/18/2012 11:59 PM SIDEHAND [facility] Vijaya Brock MD [address] [place] [address] Encounter for other physical therapy; Pain in joint, lower leg Social History Tobacco Use Types Packs/Day Years Used Date Smoking Tobacco: Never Assessed Comments Unknown Sex and Gender Information Value Date Recorded Sex Assigned at Not on file Legal Sex Female 2:14 AM SIDEHAND Gender Identity Not on file Sexual Orientation Not on file documented as of this encounter Plan of Treatment Not on file documented as of this encounter Visit Diagnoses Diagnosis Encounter for other physical therapy Pain in joint, lower leg documented in this encounter Care Teams Family Specialist Relationship Specialty Start Date End Date Clary Xavier MD [address] [place] [address] PCP - General 08/21/12 02/04/17 documented as of this encounter
--- OUTSIDE RECORDS SUMMARY | 2024-10-20 04:34 | XMS_ITS | Encounter Summary ---
Author Organization [facility] Healthcare Address [address] [place] [address] Care Team Providers Care Marketing Education Teacher Name Role Phone Unavailable Primary Care Provider Unavailabl e Encounter Details Date Type Department Care Team (Late st Contact Info) Description 05/01/2011 4:45 PM CDT - 05/01/2011 5:22 PM CDT Hospital Encounter [facility] Kenn Torres MD [address] [address] Conjunctivitis; Acute pharyngitis Social History Tobacco Use Types Packs/Day Years Used Date Smoking Tobacco: Never Assessed Comments Unknown Sex and Gender Information Value Date Recorded Sex Assigned at Not on file Legal Sex Female 2:14 AM 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
== END 2024-10-13 09:45 | disposition home or self-care (01) ==
PROVIDERS: Emergency Provider Nurse Practitioner
DX: J01.90 Acute sinusitis, unspecified (principal); E78.5 Hyperlipidemia, unspecified; I10 Essential (primary) hypertension; F41.8 Other specified anxiety disorders
CPT/HCPCS: 87081; 87880; 99213; G0463